=== PATIENT | male | born 1985 | race Two or more races ===

== ENCOUNTER 2024-05-27 07:54 | Inpatient (IN) | payer MEDICAID, SELFPAY ==
[2024-05-27] VITALS (17 sets, daily range): BP systolic 94–117; BP diastolic 53–78; PULSE 85–134; RESP 18–86; TEMP 36.7–39.6; O2SAT 91–99; BMI 29.1; BMI 29.4
--- NOTE | 2024-05-27 08:25 | XR_ITS ---
Examination: AP chest single view Technique one AP portable upright chest single view Exam date and time: May 27, 2024 0851 hours INDICATIONS: Shortness of breath fever sepsis today FINDINGS: Extensive diffuse bilateral pneumonia Normal heart size Intact osseous structures IMPRESSION: Extensive bilateral pneumonia
--- NOTE | 2024-05-27 08:25 | EKG_ITS ---
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
--- NOTE | 2024-05-27 08:26 | PD.EDRME ---
Rapid Medical Screening Exam RME Arrival date/time: 05/27/24 07:54 39-year-old male presents emergency department with a 4-day history of shortness of breath and cough. Reports today's having chest pain. I have greeted and performed a focused initial assessment of this patient. Initial appropriate labs ordered at this time. A comprehensive ED assessment and evaluation of the patient and analysis of all test and completion of medical decision making process will be conducted by additional ED provider. Chief Complaint: Flu Like Symptoms Time Seen by Provider: 05/27/24 07:59 Vital signs: Vital Signs Temperature 103.2 F H 05/27/24 08:01 Pulse Rate 133 H 05/27/24 08:01 Respiratory Rate 25 H 05/27/24 08:01 Blood Pressure 117/68 05/27/24 08:01 Pulse Oximetry (%) 91 L 05/27/24 08:01 Oxygen Delivery Method Room Air 05/27/24 08:01
[2024-05-27] MEDS: ACETAMINOPHEN 500 MG TABLET 1000 MG PO ×2 (08:28→18:11)
[2024-05-27] MEDS: IBUPROFEN TAB 400 MG TABLET 800 MG PO (08:29)
--- NOTE | 2024-05-27 08:46 | PD.EDURI ---
Upper Respiratory Inf. RME/HPI General Chief Complaint: Flu Like Symptoms Stated Complaint: chills, cough x 4d Time Seen by Provider: 05/27/24 07:59 Arrival date/time: 05/27/24 07:54 RME / HPI RME / HPI Narrative: 05/27/24 07:54 39-year-old male presents emergency department with a 4-day history of shortness of breath and cough. Reports today's having chest pain. I have greeted and performed a focused initial assessment of this patient. Initial appropriate labs ordered at this time. A comprehensive ED assessment and evaluation of the patient and analysis of all test and completion of medical decision making process will be conducted by additional ED provider. Dr. Faraz Berg ED Evaluation 39 year old male, presents to the emergency room with a chief complaint of shortness of breath and a cough. Patient states the symptoms began Thursday night with body aches, weakness, fatigue, fever, and nausea. Patient states he has a slight cough at night that causes nausea and vomiting of mucus. Patient denies pain. Related Data Allergies Allergy/AdvReac Type Severity Reaction Status Date / Time No Known Allergies Allergy Verified 05/27/24 07:57 Review of Systems Review of Systems Systems Reviewed: All systems reviewed, normal except as documented Narrative Review of Systems: Gen: +fever, no chills, no weight loss EYES: No discharge, no visual changes, no pain HEENT: No ear pain, no congestion, no sore throat PULM: + shortness of breath, cough, no congestion CV: No chest pain, no dyspnea on exertion, no palpitations GI: No nausea, no vomiting, no diarrhea, no pain, no constipation : No frequency, no urgency, no dysuria Musc/skel: No joint pain, no back pain Skin: No rash Psyc: No hallucinations, no depression Heme/Lymph: No easy bleeding or bruising tendencies Neuro: + weakness, no headache Past Medical History Social History SMOKING STATUS: Current every day smoker ED Exam Narrative Physical exam: GENERAL APPEARANCE: AxOx4, generally well-appearing, no acute distress. HEENT: NC, AT. MMM. EOMI, clear conjunctiva, oropharynx clear. NECK: Supple without lymphadenopathy. No stiffness or restricted ROM. HEART: Regular tachycardia LUNGS: Tachypnea, Moderate respiratory distress. Significant rales and rhonci bilaterally in all lung rosas worse at the base. ABDOMEN: Soft, nontender, nondistended with good bowel sounds heard. BACK: No midline C/T/L spine pain or deformity, No CVAT, no obvious deformity. EXTREMITIES: Without cyanosis, clubbing or edema. MUSCULOSKELETAL: FROM of all major joints, no chest tenderness NEUROLOGICAL: Grossly nonfocal. Alert and oriented, moving all 4 extremities. CN not formally tested but appear grossly intact. Observed to ambulate with normal gait. Skin: Clamy Skin Course Quality Measures Possible source: pulmonary, GI tract/intra-abdominal, genitourinary and skin/soft tissue Blood cultures ordered: yes Antibiotic ordered: Yes Pertinent labs: 05/27/24 08:28 Lactic Acid 1.7 mMol/L (0.4-2.0) Procalcitonin 0.61 H ng/ml (0.0-0.49) sepsis Orders Category Date Time Status Admit to Inpatient Status Routine Admission 05/27/24 12:12 Active Patient Condition Routine Admission 05/27/24 12:11 Ordered Activity as Tolerated Routine Care 05/27/24 12:12 Ordered Bedside COVID-19 Antigen Test NOW Care 05/27/24 08:09 Active Bedside Influenza A&B Antigen Test NOW Care 05/27/24 08:09 Completed COVID-19 Screening Questionnaire NOW Care 05/27/24 11:05 Active Job Coaching STAT Care 05/27/24 08:47 Active Continuous Pulse Oximetry NOW Care 05/27/24 12:11 Active Continuous Pulse Oximetry STAT Care 05/27/24 08:47 Active Decision to Admit X1 Care 05/27/24 11:05 Active EKG (ED ONLY) *Do not use* NOW Care 05/27/24 08:25 Completed In and Out Catheter X1PRN Care 05/27/24 08:47 Active Insert IV NOW Care 05/27/24 08:26 Active Insert IV NOW Care 05/27/24 08:47 Active Intake and Output QSHIFT Care 05/27/24 12:15 Ordered Miscellaneous Nursing Order NOW Care 05/27/24 12:11 Active NPO STAT Care 05/27/24 08:47 Active Notify provider NEEDED Care 05/27/24 12:11 Active Sequential Compression Device QSHIFT Care 05/27/24 12:11 Active Strict Intake and Output Routine Care 05/27/24 08:47 Ordered Diet Cardiac Diet 05/27/24 Dinner Active EKG (ED Only) Stat Exams 05/27/24 08:25 Draft XR chest 1V SEPSIS PROTOCOL Stat Exams 05/27/24 08:25 Completed BNP [B-Type Natriuretic Peptide] Stat Lab 05/27/24 08:28 Completed Blood Culture (Lab) Stat Lab 05/27/24 08:20 Received CBC AM DRAW Lab 05/28/24 05:00 Ordered CBC AM DRAW Lab 05/29/24 05:00 Ordered CBC AM DRAW Lab 05/30/24 05:00 Ordered CBC AM DRAW Lab 05/31/24 05:00 Ordered CBC AM DRAW Lab 06/01/24 05:00 Ordered CBC AM DRAW Lab 06/02/24 05:00 Ordered CBC AM DRAW Lab 06/03/24 05:00 Ordered CBC Stat Lab 05/27/24 08:28 Completed CMP [Comprehensive Metabolic Panel] Stat Lab 05/27/24 08:28 Completed COVID-19 Confirmatory PCR Stat Lab 05/27/24 Ordered Chloride,Urine Random Urgent Lab 05/27/24 14:30 Completed Cocci Serology IgM with reflex to IgG [Cocci Serology, Lab 05/27/24 08:28 Results Unk History] Stat Comprehensive Metabolic Panel AM DRAW Lab 05/28/24 05:00 Ordered Comprehensive Metabolic Panel AM DRAW Lab 05/29/24 05:00 Ordered Comprehensive Metabolic Panel AM DRAW Lab 05/30/24 05:00 Ordered Comprehensive Metabolic Panel AM DRAW Lab 05/31/24 05:00 Ordered Comprehensive Metabolic Panel AM DRAW Lab 06/01/24 05:00 Ordered Comprehensive Metabolic Panel AM DRAW Lab 06/02/24 05:00 Ordered Comprehensive Metabolic Panel AM DRAW Lab 06/03/24 05:00 Ordered Creatinine,Random Urine Urgent Lab 05/27/24 14:30 Completed D-Dimer Routine Lab 05/27/24 08:28 Completed Fibrinogen Stat Lab 05/27/24 08:28 Completed K URINE [Potassium,Urine Random] Routine Lab 05/27/24 14:30 Completed LDH (Lactate Dehydrogenase) Stat Lab 05/27/24 08:28 Completed Lactate (Lactic Acid) Stat Lab 05/27/24 08:28 Completed Legionella Ag, EIA, Urine* Routine Lab 05/27/24 14:30 Ordered Lipase Stat Lab 05/27/24 08:28 Completed Lipid Panel AM DRAW Lab 05/28/24 05:00 Ordered Magnesium AM DRAW Lab 05/28/24 05:00 Ordered Magnesium AM DRAW Lab 05/29/24 05:00 Ordered Magnesium AM DRAW Lab 05/30/24 05:00 Ordered Magnesium Stat Lab 05/27/24 08:28 Completed Partial Thromboplastin Time Stat Lab 05/27/24 08:28 Completed Phosphorous AM DRAW Lab 05/28/24 05:00 Ordered Phosphorous AM DRAW Lab 05/29/24 05:00 Ordered Phosphorous AM DRAW Lab 05/30/24 05:00 Ordered Phosphorous Stat Lab 05/27/24 08:28 Completed Procalcitonin Stat Lab 05/27/24 08:28 Completed Prothrombin Time with INR Stat Lab 05/27/24 08:28 Completed SODIUM NA URINE [Sodium,Urine Random] Routine Lab 05/27/24 14:30 Completed Strep A Rapid Stat Lab 05/27/24 08:13 Completed TSH [Thyroid Stimulating Hormone] AM DRAW Lab 05/28/24 05:00 Ordered Troponin I Stat Lab 05/27/24 08:28 Completed Urinalysis Stat Lab 05/27/24 14:30 Completed Urine Culture Stat Lab 05/27/24 14:30 Received Acetaminophen Tab [Tylenol ES Tab] Med 05/27/24 08:09 Discontinued 1,000 mg PO X1 ONE Acetaminophen Tab [Tylenol Tab] Med 05/27/24 12:11 Discontinued 650 mg PO Q6H PRN Azithromycin Inj [Zithromax Inj] 500 mg Med 05/27/24 08:49 Discontinued Sodium Chloride 0.9% 250 ml [Ns] 250 ml IV X1 Heparin Inj Med 05/27/24 21:00 Active 5,000 unit SC Q12H Ibuprofen Tab [Motrin Tab] Med 05/27/24 08:09 Discontinued 800 mg PO X1 ONE Senna [Senokot] Med 05/27/24 12:11 Active 1 tab PO QDAY PRN Sodium Chloride 0.9% 1000 ml [Ns] 1,000 ml Med 05/27/24 10:58 Discontinued IV 999 mls/hr Sodium Chloride 0.9% 1000 ml [Ns] 1,983 ml Med 05/27/24 08:47 Discontinued IV 1,983 mls/hr Sodium Chloride 0.9% [Ns] 50 ml Med 05/27/24 09:08 Discontinued .ROUTE .STK-MED cefTRIAXone [Rocephin] 1,000 mg Med 05/27/24 08:47 Discontinued Sodium Chloride 0.9% (P) [Ns 0.9% (P)] 50 ml IV X1 Code Status Routine Oth 05/27/24 12:11 Ordered Oxygen Delivery NOW RT 05/27/24 08:47 Active Oxygen Delivery PRN RT 05/27/24 12:11 Active Vital Signs Vital signs: Vital Signs Temperature 103.2 F H 05/27/24 08:01 Pulse Rate 133 H 05/27/24 08:01 Respiratory Rate 25 H 05/27/24 08:01 Blood Pressure 117/68 05/27/24 08:01 Pulse Oximetry (%) 91 L 05/27/24 08:01 Oxygen Delivery Method Room Air 05/27/24 08:01 Upper Respiratory Infection MDM Narrative MDM Narrative:: I, Francisco Cintron, am scribing under the presence of Dr. Ruth. 0902: Interpretation by Dr. Ruth: Sharp costophrenic angles, normal diaphragmatic edge, normal cardiac silhouette, bilateral diffuse infiltrates, worse at the bases, and atypical pattern. Patient data External records reviewed:: [facility] previous records (I reviewed and patient last ER visit was on 07/13/19 for bacterial conjunctivitis. ) Clinical information provided by:: patient Social determinants that could affect healthcare access:: none Patient has the following chronic illnesses:: See HPI. How is presenting disease/condition affected by chronic disease/condition?: uneffected by Evaluation data The following diagnostics were reviewed and interpreted by me:: lab results, radiology exam(s) and EKG tracing(s) (Rate 136, Sinus tachycardia, Normal axis, No ectopy, No signs of acute ischemia) Lab and/or radiology exams considered but not ordered:: None Interpretation Summary: Ordering Physician: Stephanie Nava Date of Service: 05/27/24 Procedure(s): XR chest 1V SEPSIS PROTOCOL Accession Number(s): [id number] cc: Dax Ireland MD; Stephanie Nava~ Examination: AP chest single view Technique one AP portable upright chest single view Exam date and time: May 27, 2024 0851 hours INDICATIONS: Shortness of breath fever sepsis today FINDINGS: Extensive diffuse bilateral pneumonia Normal heart size Intact osseous structures IMPRESSION: Extensive bilateral pneumonia Dictated By: Dax Ireland MD Signed By: <Electronically signed by Dax Ireland MD in OV> 05/27/24 090 Medications / Prescriptions Medications or Prescriptions considered but not ordered:: None Medication administrations:: Medication Administration History Acetaminophen (Acetaminophen 325 Mg Tablet) 1,000 mg PO Q6H PRN PRN Reason: Pain 1-3 and Fever >101.5 Stop: 06/26/24 12:10 Heparin Sodium (Porcine) (Heparin Sod Inj 5000 Unit/Ml Vial) 5,000 unit SC Q12H JUAN JOSE Stop: 06/10/24 20:59 Fluconazole (Diflucan/Ns Ivpb) 400 mg in 200 mls @ 100 mls/hr IV QDAY JUAN JOSE Stop: 06/03/24 18:27 Levofloxacin (Levofloxacin 250 Mg Tablet) 750 mg PO QDAY JUAN JOSE Stop: 06/03/24 18:29 Potassium Phos/Sodium Phos (Naph,[facility] 1 Packet (1.5 Gm)) 1 packet PO BID JUAN JOSE Stop: 06/26/24 12:29 Sennosides (Senna Tablet) 1 tab PO QDAY PRN; Protocol PRN Reason: constipation Stop: 06/26/24 12:10 Discontinued Medications Acetaminophen (Acetaminophen 500 Mg Tablet) 1,000 mg PO X1 ONE Stop: 05/27/24 08:10 Last Admin: 05/27/24 08:28 Dose: 1,000 mg Documented By: TERRY Acetaminophen (Acetaminophen 325 Mg Tablet) 650 mg PO Q6H PRN PRN Reason: Pain and Fever >101.5 Stop: 06/26/24 12:10 Acetaminophen (Acetaminophen 500 Mg Tablet) 1,000 mg PO X1 ONE Stop: 05/27/24 18:03 Last Admin: 05/27/24 18:11 Dose: 1,000 mg Documented By: ANTONIETA Fluconazole (Fluconazole 100 Mg Tablet) 400 mg PO X1 ONE Stop: 05/27/24 18:27 Sodium Chloride (Ns) 1,983 mls @ 1,983 mls/hr 30 ml/kg infuse over 60 min (1983 ml) IV .Q1H ONE Stop: 05/27/24 09:46 Last Infusion: 05/27/24 11:20 Dose: Infused Documented By: Admin: 05/27/24 09:00 Dose: 1,983 mls/hr Documented By: AMBER Ceftriaxone Sodium 1,000 mg/ (Sodium Chloride) 50 mls @ 100 mls/hr IV X1 ONE Stop: 05/27/24 09:16 Last Infusion: 05/27/24 11:20 Dose: Infused Documented By: Admin: 05/27/24 09:15 Dose: 100 mls/hr Documented By: AMBER Azithromycin 500 mg/ Sodium (Chloride) 250 mls @ 250 mls/hr IV X1 ONE Stop: 05/27/24 09:48 Last Infusion: 05/27/24 11:20 Dose: Infused Documented By: Admin: 05/27/24 09:16 Dose: 250 mls/hr Documented By: AMBER Sodium Chloride (Ns) Confirm Administered Dose 50 mls @ ud .ROUTE .STK-MED ONE Stop: 05/27/24 09:09 Last Admin: 05/27/24 09:15 Dose: 100 mls/hr Documented By: AMBER Sodium Chloride (Ns) 1,000 mls @ 999 mls/hr IV .Q1H1M ONE Stop: 05/27/24 11:58 Last Admin: 05/27/24 10:55 Dose: 999 mls/hr Documented By: AMBER Levofloxacin/Dextrose (Levaquin Ivpb) 750 mg in 150 mls @ 100 mls/hr IV QDAY JUAN JOSE Stop: 06/04/24 08:59 Levofloxacin/Dextrose (Levaquin Ivpb) 750 mg in 150 mls @ 100 mls/hr IV QDAY JUAN JOSE Stop: 06/03/24 18:23 Vancomycin HCl/Dextrose (Vancomycin/D5w 1,250 Mg Ivpb) 250 mls @ 120 mls/hr IV X1 ONE Stop: 05/27/24 22:04 Ibuprofen (Ibuprofen Tab 400 Mg Tablet) 800 mg PO X1 ONE Stop: 05/27/24 08:10 Last Admin: 05/27/24 08:29 Dose: 800 mg Documented By: TERRY Levofloxacin (Levofloxacin 250 Mg Tablet) 750 mg PO QDAY ONE Stop: 05/27/24 18:30 Pharmacy Consult (Vancomycin Pharmacy To Dose 1 Each Each) 1 each IV QDAY PRN PRN Reason: CONSULT Stop: 06/26/24 18:29 Sodium Chloride (Sodium Chloride Rt 10% 15 Ml Nebu) 5 ml INH X1 ONE Stop: 05/27/24 12:19 Last Admin: 05/27/24 17:10 Dose: 5 ml Documented By: EV See above Consultations Consultation(s) initiated? (list below): Yes Consultation #1 (Physician, Specialty, Details): 1106: I spoke to Dr. Magallanes made aware of the patient?s HPI, PMHx, lab and/or radiology results. Discussed treatment plan and regarding admission Diagnosis Upper Respiratory Differential Diagnosis: other (sepsis, pneumonia, pulmonary embolism, pneumothorax) Most likely diagnosis given after review of the tests above:: Sepsis. Hyponatremia, Transaminitis, Bilateral atypical pneumonia, Hypoxia, respiratory distress Admission Indicated Admission indicated?: indicated Explain why admission is indicated or not indicated:: Patient has abnormalities in their studies and needs admission, see above. Admission Request Was there a request for admission?: Yes Admission Attestation Admission request attestation: Discussed case with [] from Hospitalist service regarding admission. Discussed patients ED course, exam findings, labs, and radiology results. The Hospitalist [agrees,declines] to accept the patient for admission. Disposition Plan Disposition Plan: Admit Critical Care Time Critical Care Time Critical Care Time: Yes Total Critical Care Time (min.): 45 Attestation: The high probability of sudden, clinically significant deterioration in the patient?s condition required the highest level of my preparedness to intervene urgently. ? The services I provided to this patient were to treat and/or prevent clinically significant deterioration. Services included the following: chart data review, reviewing nursing notes and/or old charts, documentation time, analytical consultant collaboration regarding findings and treatment options, medication orders and management, direct patient care, vital sign assessments and ordering, interpreting and reviewing diagnostic studies and lab tests. ? Aggregate critical care time includes only time during which I was engaged in work directly related to the patient?s care, as described above, whether at bedside or elsewhere in the Emergency Department. It did not include time spent performing other reported procedures or the services of residents, students, nurses or physician assistants. Discharge Plan Plan Patient Disposition: Admit Acute Care w/in Hospital Patient condition on transfer: Stable Problem List Clinical Impression: Respiratory distress, Sepsis, Hyponatremia, Abnormal transaminases, Bilateral pneumonia, Hypoxia
[2024-05-27 08:48] LABS: Strep A Rapid Negative (Negative)
[2024-05-27 08:50] LABS: Lactate (Lactic Acid) 1.7 mMol/L (0.4-2.0)
[2024-05-27 08:51] LABS: Basophils # (Auto) 0.1 Thou/mm3 (0.0-0.2); Basophils % (Auto) 0 % (0-2.5); Eosinophils % (Auto) 0 % (0-10); Hematocrit 37.7 % (41.0-53.0); Hemoglobin 12.1 g/dL (13.5-16.0); Immature Granulocytes % (Auto) 0 % (0-0); Immature Granulocytes Auto 0.04 Thou/mm3 (0.00-0.00); Lymphocytes # (Auto) 1.3 Thou/mm3 (1.0-4.8); Lymphocytes % (Auto) 11 % (10-50); Mean Corpuscular HGB Conc 32.1 g/dl (31.0-37.0); Mean Corpuscular Volume 69 fL (80-100); Monocytes # (Auto) 0.5 Thou/mm3 (0.0-0.8); Monocytes % (Auto) 4 % (0-12); Neutrophils # (Auto) 9.9 Thou/mm3 (1.8-7.7); Neutrophils % (Auto) 84 % (37-80); Nucleated Red Blood Cell % 0 /100 WBC (0); Platelet Count 387 Thou/mm3 (140-440); RDW Standard Deviation 46.4 fL (35.1-43.9); White Blood Count 11.8 Thou/mm3 (3.8-10.6)
[2024-05-27] MEDS: SODIUM CHLORIDE 0.9% 1000 ML 1,983 ML 1983 ML IV (09:00)
[2024-05-27] MEDS: cefTRIAXone 1,000 MG in SODIUM CHLORIDE 0.9% (P) 50 ML 100 MG IV (09:15)
[2024-05-27] MEDS: SODIUM CHLORIDE 0.9% 50 ML 100 ML (09:15)
[2024-05-27] MEDS: AZITHROMYCIN INJ 500 MG in SODIUM CHLORIDE 0.9% 250 ML 250 ML 250 MG IV (09:16)
[2024-05-27 09:18] LABS: INR 1.1 (0.9-1.3); Partial Thromboplastin Time 27.9 Seconds (22.0-36.0)
[2024-05-27 09:20] LABS: B-Type Natriuretic Peptide 21 pg/mL (0-100)
[2024-05-27 09:23] LABS: LDH (Lactate Dehydrogenase) 663 U/L (120-246); Lipase 52 U/L (12-53); Magnesium 1.7 mg/dL (1.6-2.6); Phosphorous 2.1 mg/dL (2.4-5.1)
[2024-05-27 09:29] LABS: Alanine Aminotransferase 68 U/L (10-49); Albumin, Serum 4.2 gm/dL (3.5-5.0); Alkaline Phosphatase 74 U/L (46-116); Anion Gap 5 (7-16); Aspartate Amino Transferase 85 U/L (0-34); BUN/Creatinine Ratio 9 Ratio (12-20); Bilirubin,Total 0.7 mg/dL (0.3-1.2); Blood Urea Nitrogen 12 mg/dL (9-23); Calcium 9.1 mg/dL (8.3-10.6); Calcium (Corrected) 9.1 mg/dL (8.5-10.1); Carbon Dioxide 24.3 mMol/L (20.0-31.0); Chloride 99 mMol/L (98-107); Creatinine (Component) 1.3 mg/dL (0.6-1.3); Globulin 4.4 gm/dL (2.3-3.5); Glucose 92 mg/dL (74-106); Osmolality,Calculated 256 (275-295); Procalcitonin 0.61 ng/ml (0.0-0.49); Sodium 128 mMol/L (136-145); Total Protein 8.6 gm/dL (5.7-8.2); Troponin I < 0.020 ng/mL (0.0-0.045); eGFR > 60 See Note
[2024-05-27] MEDS: SODIUM CHLORIDE 0.9% 1000 ML 1,000 ML 999 ML IV (10:55)
[2024-05-27 11:05] LABS: Fibrinogen 596 mg/dL (175-375)
--- NOTE | 2024-05-27 11:36 | PC.CC ---
Patient is a 39 year-old male BIB-Self for chills, cough x4. Caren ALMAZAN introduced self, role, and reason for visit. Patient appeared alert and oriented to self, location, and situation. Patient was pleasant and engaged in assessment. Patient confirmed information on demographics and reports he lives at home with his mother Rina Owen . The patient reports his mother and sister, Francesca Owen are part of his support system. Per patient, prior to coming to the hospital he was able to complete his own ADLs and Ambulate independently. For primary medical needs he is [facility]. Upon discharge patient plans on returning home. financial services professional to remain available for any discharge needs.
[2024-05-27 12:59] LABS: D-Dimer 381 ng/mL (<600)
--- NOTE | 2024-05-27 13:09 | ESHP_ITS ---
Documentation for date of: 05/27/24 [facility] History of Present Illness Chief complaint: Shortness of breath, cough History of present illness: Mr. Owen is a 39-year-old male with no significant past medical history who presented to [facility] with a chief complaint of shortness of breath and cough. Patient reports that he has been feeling weak for about 3 weeks, complains of chills, body aches, generalized weakness, fatigue and fever which has progressed eventually over the course of the last 3 weeks and he reports feeling worse, patient complains of nonproductive cough usually when he wakes up which causes him to throw up. Patient was short of breath on presentation to the ED, was started on oxygen via nasal cannula. He denies any sick contacts, history of any respiratory disorders and any past medical history of diabetes, heart disease and hypertension. He denies any chest pain, abdominal pain and nausea. ED Course: ED Vitals: Patient's vitals on presentation BP 117/68, P133, RR 25, temp 103.2, O2 sat 91 on room air ED Labs: Labs in ED significant for WBC 11.8, hemoglobin 12.1, hematocrit 37.7, MCV 69, MCH 22, neutrophil 84%, fibrinogen 596, Sodium 128, potassium 5.0, chloride 99, BUN 12, creatinine 1.3, osmolality 256, phosphorus 2.1, AST 85, ALT 68, LDH 663, total protein 8.6, globulin 4.4, Pro-Jayy 0.61. UA significant for urine protein 1+, urine ketones trace, urine RBC 5, urine WBC 3, urine bacteria rare, urine random creatinine 237, urine random sodium 19.8, urine random potassium 60, urine random chloride 33.4 cocci IgM in ED was negative ED Imaging: Chest x-ray in ED nephric and for extensive bilateral pneumonia ED Treatment:Patient was given Tylenol 1000 mg x 1 in ED, ibuprofen 800 mg x 180, about 3 L of normal saline fluid bolus, ceftriaxone and Zithromax. Review of Systems Review of Systems Narrative Review of Systems: ROS: -CONSTITUTIONAL: Denies weight loss, positive for fever and chills. -HEENT: Denies changes in vision and hearing. -RESPIRATORY: Positive for SOB and cough. -CV: Denies palpitations and Chest Pain. -GI: Denies abdominal pain, nausea,constipation and diarrhea. Positive for vomiting. -: Denies dysuria and urinary frequency. -MSK: Denies joint pain. Positive for myalgia, fatigue and generalized weakness. -SKIN: Denies rash and pruritus. -NEUROLOGICAL: Denies headache and syncope. -PSYCHIATRIC: Denies recent changes in mood. Denies anxiety and depression. Past Medical History Past Medical History Comments PMH COMMENT: PMH: No significant past medical history PSHx: Denies Allergies: No known allergies Social history: -Smoking: Positive for smoking, current everyday smoker. -Alcohol Use: Positive for occasional alcohol use -Illicit Drug Use: Denies -Occupation: [employer] -Martial Status: Unmarried, sexually active, monogamous Family History: Denies any pertinent family history Exam Vital Signs Temp Pulse Resp BP Pulse Ox O2 Del Method O2 Flow Rate 98.1 F 93 22 H 96/63 95 Nasal Cannula 4 05/27/24 12:19 05/27/24 12:19 05/27/24 12:19 05/27/24 12:19 05/27/24 12:19 05/27/24 12:19 05/27/24 12:19 Narrative Exam Physical Exam General: Awake and in no acute distress. Conversational and non-toxic appearing. HEENT: Normocephalic, atraumatic, mucous membranes moist. Heart: Regular rate and rhythm, no murmurs. Lungs: Clear to auscultation with no wheezing or crackles. Coarse breath sounds bilaterally, patient currently on nasal cannula. Abdomen: Soft, nondistended, nontender, positive bowel sounds. ?No guarding or rebound tenderness. Neurologic: Alert and oriented x3, no gross neurological deficit, and patient able to move all 4 extremities. Extremities: No edema. Skin: No rash or ecchymoses. Results: Labs 06/04/24 02:39 06/04/24 09:56 Labs: Short CBC 05/27/24 Range/Units 08:28 WBC 11.8 H (3.8-10.6) Thou/mm3 Hgb 12.1 L (13.5-16.0) g/dL Hct 37.7 L (41.0-53.0) % Plt Count 387 (140-440) Thou/mm3 BMP 05/27/24 08:28 Sodium 128 L Potassium 5.0 Chloride 99 Carbon Dioxide 24.3 BUN 12 Creatinine 1.3 Glucose 92 Calcium 9.1 Cardiac Enzymes 05/27/24 Range/Units 08:28 Troponin I < 0.020 (0.0-0.045) ng/mL Liver Function 05/27/24 Range/Units 08:28 Total Bilirubin 0.7 (0.3-1.2) mg/dL AST 85 H (0-34) U/L ALT 68 H (10-49) U/L Alkaline Phosphatase 74 (46-116) U/L Albumin 4.2 (3.5-5.0) gm/dL Quality Measures Quality Measures sepsis Current suspected stage: sepsis Possible source: pulmonary Blood cultures ordered: yes Antibiotic ordered: Yes Medications Home Medications and Allergies Home Medications ?Medication ?Instructions ?Recorded ?Confirmed ?Type No Known Home Medications 05/29/24 05/29/24 History Allergies Allergy/AdvReac Type Severity Reaction Status Date / Time No Known Allergies Allergy Verified 05/27/24 07:57 Visit Medications Acetaminophen (Acetaminophen 325 Mg Tablet) 650 mg PO Q6H PRN PRN Reason: Pain and Fever >101.5 Stop: 06/26/24 12:10 Heparin Sodium (Porcine) (Heparin Sod Inj 5000 Unit/Ml Vial) 5,000 unit SC Q12H JUAN JOSE Stop: 06/10/24 20:59 Levofloxacin/Dextrose (Levaquin Ivpb) 750 mg in 150 mls @ 100 mls/hr IV QDAY JUAN JOSE Stop: 06/04/24 08:59 Potassium Phos/Sodium Phos (Naph,[facility] Mbdb 1 Packet (1.5 Gm)) 1 packet PO BID JUAN JOSE Stop: 06/26/24 12:29 Sennosides (Senna Tablet) 1 tab PO QDAY PRN; Protocol PRN Reason: constipation Stop: 06/26/24 12:10 Discontinued Medications Acetaminophen (Acetaminophen 500 Mg Tablet) 1,000 mg PO X1 ONE Stop: 05/27/24 08:10 Last Admin: 05/27/24 08:28 Dose: 1,000 mg Sodium Chloride (Ns) 1,983 mls @ 1,983 mls/hr 30 ml/kg infuse over 60 min (1983 ml) IV .Q1H ONE Stop: 05/27/24 09:46 Last Infusion: 05/27/24 11:20 Dose: Infused Ceftriaxone Sodium 1,000 mg/ (Sodium Chloride) 50 mls @ 100 mls/hr IV X1 ONE Stop: 05/27/24 09:16 Last Infusion: 05/27/24 11:20 Dose: Infused Azithromycin 500 mg/ Sodium (Chloride) 250 mls @ 250 mls/hr IV X1 ONE Stop: 05/27/24 09:48 Last Infusion: 05/27/24 11:20 Dose: Infused Sodium Chloride (Ns) 1,000 mls @ 999 mls/hr IV .Q1H1M ONE Stop: 05/27/24 11:58 Last Admin: 05/27/24 10:55 Dose: 999 mls/hr Ibuprofen (Ibuprofen Tab 400 Mg Tablet) 800 mg PO X1 ONE Stop: 05/27/24 08:10 Last Admin: 05/27/24 08:29 Dose: 800 mg Sodium Chloride (Sodium Chloride Rt 10% 15 Ml Nebu) 5 ml INH X1 ONE Stop: 05/27/24 12:19 Assessment & Plan Plan Assessment and plan: Summary: Mr. Owen is a 39-year-old male with no significant past medical history who presented to [facility] with a chief complaint of shortness of breath and cough. Patient admitted for acute hypoxic respiratory failure secondary to pneumonia. # Acute hypoxic respiratory failure secondary to # Sepsis secondary to # Bilateral pneumonia # Leukocytosis -Patient presented with shortness of breath in the ED, was started on oxygen via nasal cannula. Patient reports having fever myalgia and chills for about 3 weeks with cough which progressively have worsened. -Patient met SIRS criteria 3/4, P133, RR 25, temp 103.2 on presentation, chest x-ray in ED significant for bilateral pneumonia. WBC count 11.8, neutrophil 84%. Pro-Jayy elevated 0.61. -Patient tested for influenza A and B, COVID rapid test negative in ED. fibrinogen elevated in ED 596 -Curb 65 score 1, low risk. PSI/port score 88 points, risk class III 0.92-2.8% -Patient was given ceftriaxone and azithromycin in ED. -Urine bacteria rare, leukocyte esterase negative, nitrite negative, patient asymptomatic low suspicion of UTI -Patient was given about 3 L fluid in ED Plan: -Patient started on levofloxacin 750mg PO QD (05/27- -Patient started on Fluconazole 400mg -Follow CT Chest -Supplemental oxygen as needed -Follow blood culture -Follow urine culture -Follow sputum culture, Gram stain -Follow MRSA nasal screen -Follow HIV antibody -Follow hepatitis panel -Follow COVID PCR, RSV -Follow H influenza, Legionella, Neisseria meningitis, strep B, strep pneumonia antigen -Consider repeating Pro-Jayy, Pro-Jayy helpful indicator when deciding to discontinue antibiotics, if less than 0.25 or more than 80% drop from peak -Follow CBC CMP in a.m. # Hyponatremia -Suspicion of Legionella pneumonia due to hyponatremia along with bilateral pneumonia. Sodium on admission 128. -Follow Legionella urine antigen -Monitor CMP in a.m. # Microcytic hypochromic anemia -Hemoglobin 12.1, MCV 69, MCH 22 on admission -Consider following up outpatient -Monitor CBC in a.m. # Transaminitis -Possible in setting of sepsis, will continue to monitor. -Follow CMP in a.m. # Electrolyte imbalance # Hypophosphatemia -Patient started on Neutra-Phos twice daily -Continue to monitor electrolytes DVT prophylaxis: Heparin twice daily GI prophylaxis: Not indicated Diet: Cardiac Lines: Peripheral IV Code status: Full code Physical therapy: Not ordered/indicated Case discussed with Attending Dr. Long and Dr. Holland PGY3. Yadira Welsh PGY1 LI discussed with and supervised the internal combustion engine assembler physician who took care of this patient. I personally saw and examined the patient and discussed the assessment and plan with the entire medicine team, including my attending Dr. Wayne Long MD. I agree with the assessment and plan as documented above. Larry Holland M.D. Internal Medicine PGY-3 Attending Provider Attestation/Addendum Face to face evaluation was performed by me. I have personally seen and examined the patient. I discussed the assessment and plan with the entire medicine team. I reviewed available medical records, imaging studies, laboratory results. I agree with the above subjective data, objective findings, assessment and plan except as corrected by me or noted below Acute hypoxic respiratory failure Bilateral significant pneumonia Fever Sepsis present on admission due to above Patient septic on admission empiric antibiotics with levofloxacin, highly suspicion for valley fever so empirically started on fluconazole. Repeat coccidiomycosis IgM/IgG in few days again after admission. Check for HIV?pending Supplemental oxygenation, wean as able Follow culture data
[2024-05-27 13:28] LABS: HIV 1/2 Confirmation* See Sep Rpt
[2024-05-27 14:38] LABS: Cocci Serology, IgM Negative (Negative)
[2024-05-27 15:03] LABS: Collection Type, Urine Clean Catch
[2024-05-27 15:33] LABS: Bacteria,Urine Rare; Bilirubin,Urine Negative (Negative); Blood,Urine Negative (Negative); Clarity,Urine Turbid (Clear/Hazy); Color,Urine Yellow (Lt Yel-Yel); Glucose, Urine Negative (Negative); Ketones,Urine Trace (Negative); Leukocyte Esterase,Urine Negative (Negative); Nitrite,Urine Negative (Negative); PH,Urine 6.5 (5.0-7.0); Protein,Urine 1+ (Neg - Trace); RBC,Urine 5 /hpf (0-3); Specific Gravity,Urine 1.022 (1.001-1.035); Squamous Epithelial Cell,Urine < 1 /hpf (0-5); Urobilinogen,Urine Negative mg/dL (0.0-1.0); WBC,Urine 3 /hpf (0-5)
[2024-05-27 15:36] LABS: Chloride,Urine Random 33.4 mMol/L (55.0-125.0); Creatinine,Random Urine 237 mg/dL (30-125); Potassium,Urine Random 60 mMol/L (12-62); Sodium,Urine Random 19.8 mMol/L (20.0-110.0)
[2024-05-27 15:41] LABS: Sodium 133 mMol/L (136-145)
[2024-05-27] MEDS: SODIUM CHLORIDE RT 10% 15 ML NEBU 5 ML INH (17:10)
--- NOTE | 2024-05-27 18:23 | XR_ITS ---
Examination: CT chest, without intravenous contrast. Sagittal and coronal 2-D reconstructions. Exam date and time: May 27, 2024 at 1852 hrs. Indications: Shortness of breath congestion beginning 4 days ago CTDI:vol (mGy) 14.5 DLP: (mGycm) 498 Technique: Multiple 3.0 mm axial sections of the chest to been obtained. Bone and lung density settings are obtained. Sagittal and coronal 2-D reconstructions have been obtained. Low dose protocols were performed. One or more of the following dose reduction techniques were used; automated exposure control, adjustment of the mA and/or KV according to patient size, use of iterative reconstruction technique. Findings: Thoracic aorta pulmonary arteries appear intact No paratracheal tracheobronchial or bronchopulmonary adenopathy small tracheobronchial and aortopulmonary window lymph nodes Severe bilateral lung opacities No pleural disease Osseous structures are intact No visualized liver or splenic lesion No visualized pancreatic mass Impression: Diffuse severe bilateral pneumonia
[2024-05-27] MEDS: FLUCONAZOLE/NS 400 MG IVPB 400 MG/200 ML BAG 100 MG IV (19:20)
[2024-05-27] MEDS: LEVOFLOXACIN 250 MG TABLET 750 MG PO (19:21)
[2024-05-27] MEDS: NAPH,KPH MBDB 1 PACKET (1.5 GM) PO (20:16)
[2024-05-27] MEDS: HEPARIN SOD INJ 5000 UNIT/ML VIAL SC (20:16)
[2024-05-27 21:00] LABS: Respiratory Syncytial Virus Ag Negative (Negative)
--- NOTE | 2024-05-27 22:35 | EKG_ITS ---
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
--- NOTE | 2024-05-27 23:00 | PC.NURSE ---
Addendum entered by Clyde Gaviria RN 05/28/24 03:35: Monitor courtroom clerk was also notified regarding patient's heart rate. Original Note: Contacted both . Adelita Mancilla regarding patients elevated heart rate. Patient's heart rate sustained in the 130's. When assessing patient, patient also had an oral temp of 101.8. MD also notified regarding temp and was given Tylenol and cooling measure was given to the patient. Dr. Tracey arrived on unit to assess patient. .
[2024-05-27] MEDS: ACETAMINOPHEN 325 MG TABLET 1000 MG PO (23:18)
[2024-05-27 23:45] LABS: Base Excess 0 (-3-3); HCO3 23 mEq/L (20-26); Inspired Oxygen, FIO2 90 %; O2 Saturation 96 % (91-98); PCO2 28 mmHg (32.0-48.0); PO2 75 mmHg (83-108); pH, Arterial 7.51 (7.35-7.45)
[2024-05-27 23:46] LABS: Allen Test Performed/OK; Puncture Site Right Radial
[2024-05-27 23:49] LABS: Lactate (Lactic Acid) 1.3 mMol/L (0.4-2.0)
[2024-05-28] VITALS (23 sets, daily range): BP systolic 104–111; BP diastolic 48–71; PULSE 87–133; RESP 18–32; TEMP 36.8–38.8; O2SAT 92–100
--- NOTE | 2024-05-28 00:18 | PC.NURSE ---
Dr. Dupree arrived on unit to assess patient. Patient's oral temperature was assessed after patient was given both tylenol and cooling measures. Patient's oral temperature went from 101.8 orally to 99.6. Patient stated to nurse that I don't know what it was, but I feel better than I did earlier . Patient was on oxymask and is now on a hi-flow.
[2024-05-28 00:21] LABS: Alanine Aminotransferase 53 U/L (10-49); Albumin, Serum 3.5 gm/dL (3.5-5.0); Albumin/Globulin Ratio 0.9 (1.2-2.2); Alkaline Phosphatase 62 U/L (46-116); Anion Gap 6 (7-16); Aspartate Amino Transferase 81 U/L (0-34); BUN/Creatinine Ratio 12 Ratio (12-20); Bilirubin,Total 0.5 mg/dL (0.3-1.2); Blood Urea Nitrogen 11 mg/dL (9-23); Calcium 7.7 mg/dL (8.3-10.6); Calcium (Corrected) 8.1 mg/dL (8.5-10.1); Carbon Dioxide 21.9 mMol/L (20.0-31.0); Chloride 101 mMol/L (98-107); Creatinine (Component) 0.9 mg/dL (0.6-1.3); Estimated Creatinine Clearance 116.1 mL/min (>60); Globulin 3.7 gm/dL (2.3-3.5); Glucose 96 mg/dL (74-106); Osmolality,Calculated 258 (275-295); Potassium 4.2 mMol/L (3.4-5.1); Sodium 129 mMol/L (136-145); Total Protein 7.2 gm/dL (5.7-8.2); eGFR > 60 See Note
--- NOTE | 2024-05-28 00:25 | PD.RESHP ---
Documentation for date of: 05/28/24 Exam Vital Signs Temp Pulse Resp BP Pulse Ox O2 Del Method O2 Flow Rate 101.8 F H 133 H 26 H 109/59 L 94 L High Flow Nasal Cannula 15 05/28/24 00:00 05/28/24 00:06 05/28/24 00:06 05/28/24 00:00 05/28/24 00:06 05/28/24 00:00 05/28/24 00:06 FiO2 90 05/28/24 00:06 Results: Labs 05/27/24 08:28 05/27/24 14:56 Labs: Short CBC 05/27/24 Range/Units 08:28 WBC 11.8 H (3.8-10.6) Thou/mm3 Hgb 12.1 L (13.5-16.0) g/dL Hct 37.7 L (41.0-53.0) % Plt Count 387 (140-440) Thou/mm3 BMP 05/27/24 05/27/24 08:28 14:56 Sodium 128 L 133 L Potassium 5.0 Chloride 99 Carbon Dioxide 24.3 BUN 12 Creatinine 1.3 Glucose 92 Calcium 9.1 Cardiac Enzymes 05/27/24 Range/Units 08:28 Troponin I < 0.020 (0.0-0.045) ng/mL Liver Function 05/27/24 Range/Units 08:28 Total Bilirubin 0.7 (0.3-1.2) mg/dL AST 85 H (0-34) U/L ALT 68 H (10-49) U/L Alkaline Phosphatase 74 (46-116) U/L Albumin 4.2 (3.5-5.0) gm/dL Urine 05/27/24 Range/Units 14:30 Urine Color Yellow (Lt Yel-Yel) Urine Clarity Turbid A (Clear/Hazy) Urine pH 6.5 (5.0-7.0) Ur Specific [place] 1.022 (1.001-1.035) Urine Protein 1+ A (Neg - Trace) Urine Glucose (UA) Negative (Negative) ABG Interpretation ABG results: 05/27/24 23:37 ABG pH 7.51 H ABG pCO2 28 L ABG pO2 75 L ABG HCO3 23 ABG O2 Saturation 96 ABG Base Excess 0 Quality Measures Quality Measures sepsis Possible source: pulmonary, GI tract/intra-abdominal, genitourinary and skin/soft tissue Blood cultures ordered: yes Medications Home Medications and Allergies Allergies Allergy/AdvReac Type Severity Reaction Status Date / Time No Known Allergies Allergy Verified 05/27/24 07:57 Visit Medications Acetaminophen (Acetaminophen 325 Mg Tablet) 1,000 mg PO Q6H PRN PRN Reason: Pain 1-3 and Fever >101.5 Stop: 06/26/24 12:10 Last Admin: 05/27/24 23:18 Dose: 1,000 mg Heparin Sodium (Porcine) (Heparin Sod Inj 5000 Unit/Ml Vial) 5,000 unit SC Q12H JUAN JOSE Stop: 06/10/24 20:59 Last Admin: 05/27/24 20:16 Dose: 5,000 unit Fluconazole (Diflucan/Ns Ivpb) 400 mg in 200 mls @ 100 mls/hr IV QDAY JUAN JOSE Stop: 06/03/24 18:27 Last Admin: 05/27/24 19:20 Dose: 100 mls/hr Levofloxacin (Levofloxacin 250 Mg Tablet) 750 mg PO QDAY JUAN JOSE Stop: 06/03/24 18:29 Last Admin: 05/27/24 19:21 Dose: 750 mg Potassium Phos/Sodium Phos (Naph,[facility] Mbdb 1 Packet (1.5 Gm)) 1 packet PO BID JUAN JOSE Stop: 06/26/24 12:29 Last Admin: 05/27/24 20:16 Dose: 1 packet Sennosides (Senna Tablet) 1 tab PO QDAY PRN; Protocol PRN Reason: constipation Stop: 06/26/24 12:10 Discontinued Medications Acetaminophen (Acetaminophen 500 Mg Tablet) 1,000 mg PO X1 ONE Stop: 05/27/24 08:10 Last Admin: 05/27/24 08:28 Dose: 1,000 mg Acetaminophen (Acetaminophen 325 Mg Tablet) 650 mg PO Q6H PRN PRN Reason: Pain and Fever >101.5 Stop: 06/26/24 12:10 Acetaminophen (Acetaminophen 500 Mg Tablet) 1,000 mg PO X1 ONE Stop: 05/27/24 18:03 Last Admin: 05/27/24 18:11 Dose: 1,000 mg Fluconazole (Fluconazole 100 Mg Tablet) 400 mg PO X1 ONE Stop: 05/27/24 18:27 Sodium Chloride (Ns) 1,983 mls @ 1,983 mls/hr 30 ml/kg infuse over 60 min (1983 ml) IV .Q1H ONE Stop: 05/27/24 09:46 Last Infusion: 05/27/24 11:20 Dose: Infused Ceftriaxone Sodium 1,000 mg/ (Sodium Chloride) 50 mls @ 100 mls/hr IV X1 ONE Stop: 05/27/24 09:16 Last Infusion: 05/27/24 11:20 Dose: Infused Azithromycin 500 mg/ Sodium (Chloride) 250 mls @ 250 mls/hr IV X1 ONE Stop: 05/27/24 09:48 Last Infusion: 05/27/24 11:20 Dose: Infused Sodium Chloride (Ns) 1,000 mls @ 999 mls/hr IV .Q1H1M ONE Stop: 05/27/24 11:58 Last Admin: 05/27/24 10:55 Dose: 999 mls/hr Levofloxacin/Dextrose (Levaquin Ivpb) 750 mg in 150 mls @ 100 mls/hr IV QDAY JUAN JOSE Stop: 06/04/24 08:59 Levofloxacin/Dextrose (Levaquin Ivpb) 750 mg in 150 mls @ 100 mls/hr IV QDAY JUAN JOSE Stop: 06/03/24 18:23 Vancomycin HCl/Dextrose (Vancomycin/D5w 1,250 Mg Ivpb) 250 mls @ 120 mls/hr IV X1 ONE Stop: 05/27/24 22:04 Ibuprofen (Ibuprofen Tab 400 Mg Tablet) 800 mg PO X1 ONE Stop: 05/27/24 08:10 Last Admin: 05/27/24 08:29 Dose: 800 mg Ketorolac Tromethamine (Ketorolac Inj 30 Mg/Ml Vial) 30 mg IVP X1 ONE Stop: 05/28/24 00:09 Levofloxacin (Levofloxacin 250 Mg Tablet) 750 mg PO QDAY ONE Stop: 05/27/24 18:30 Pharmacy Consult (Vancomycin Pharmacy To Dose 1 Each Each) 1 each IV QDAY PRN PRN Reason: CONSULT Stop: 06/26/24 18:29 Sodium Chloride (Sodium Chloride Rt 10% 15 Ml Nebu) 5 ml INH X1 ONE Stop: 05/27/24 12:19 Last Admin: 05/27/24 17:10 Dose: 5 ml Assessment & Plan Plan ED 16 Patient is an 88-year-old male, Greek only speaker, with a past medical history of diabetes, hypertension, hyperlipidemia who presents to the ER with a chief complaint of palpitations. Patient daughter at the bedside #Sepsis #Pneumonia #UTI #WILL #Diabetes mellitus
[2024-05-28] MEDS: SODIUM CHLORIDE 0.9% 500 ML 500 ML 999 ML IV (01:10)
[2024-05-28 03:45] LABS: COVID-19 Confirmatory PCR Negative (Neg)
--- NOTE | 2024-05-28 03:59 | PC.NURSE ---
Per MD. Tracey d/c airborne precaution.
[2024-05-28 06:00] LABS: Basophils % (Auto) 0 % (0-2.5); Eosinophils % (Auto) 0 % (0-10); Hematocrit 34.7 % (41.0-53.0); Hemoglobin 11.1 g/dL (13.5-16.0); Immature Granulocytes % (Auto) 0 % (0-0); Immature Granulocytes Auto 0.06 Thou/mm3 (0.00-0.00); Lymphocytes # (Auto) 2.3 Thou/mm3 (1.0-4.8); Lymphocytes % (Auto) 16 % (10-50); Mean Corpuscular Hemoglobin 22.4 pg (25.0-35.0); Mean Corpuscular Volume 70 fL (80-100); Monocytes # (Auto) 0.3 Thou/mm3 (0.0-0.8); Monocytes % (Auto) 2 % (0-12); Neutrophils # (Auto) 11.2 Thou/mm3 (1.8-7.7); Neutrophils % (Auto) 81 % (37-80); Nucleated Red Blood Cell % 0 /100 WBC (0); Platelet Count 349 Thou/mm3 (140-440); RDW Standard Deviation 47.4 fL (35.1-43.9); Red Blood Count 4.95 Miln/mm3 (4.50-5.90); White Blood Count 13.9 Thou/mm3 (3.8-10.6)
[2024-05-28 06:48] LABS: Alanine Aminotransferase 51 U/L (10-49); Albumin, Serum 3.5 gm/dL (3.5-5.0); Albumin/Globulin Ratio 0.9 (1.2-2.2); Alkaline Phosphatase 64 U/L (46-116); Anion Gap 6 (7-16); Aspartate Amino Transferase 77 U/L (0-34); BUN/Creatinine Ratio 10 Ratio (12-20); Bilirubin,Total 0.6 mg/dL (0.3-1.2); Blood Urea Nitrogen 10 mg/dL (9-23); Calcium 7.8 mg/dL (8.3-10.6); Calcium (Corrected) 8.2 mg/dL (8.5-10.1); Chloride 100 mMol/L (98-107); Cholesterol 110 mg/dL (132-200); Estimated Creatinine Clearance 104.5 mL/min (>60); Globulin 3.7 gm/dL (2.3-3.5); Glucose 80 mg/dL (74-106); HDL Cholesterol < 5 mg/dL (40-60); LDL Cholesterol,Calculated 77 mg/dL (0-130); Magnesium 1.6 mg/dL (1.6-2.6); Osmolality,Calculated 258 (275-295); Phosphorous 3.2 mg/dL (2.4-5.1); Potassium 4.4 mMol/L (3.4-5.1); Sodium 130 mMol/L (136-145); Thyroid Stimulating Hormone 1.06 uIU/mL (0.55-4.78); Total Protein 7.2 gm/dL (5.7-8.2); Triglycerides 141 mg/dL (30-150); eGFR > 60 See Note
[2024-05-28] MEDS: LEVOFLOXACIN 250 MG TABLET 750 MG PO (08:14)
[2024-05-28] MEDS: HEPARIN SOD INJ 5000 UNIT/ML VIAL SC ×2 (08:14→20:31)
[2024-05-28] MEDS: ACETAMINOPHEN 325 MG TABLET 1000 MG PO (08:14)
[2024-05-28] MEDS: NAPH,KPH MBDB 1 PACKET (1.5 GM) PO ×2 (08:15→20:30)
--- NOTE | 2024-05-28 08:25 | PC.NURSE ---
Notified that patient has a oral temp of 101.9 and tylenol was given per sep. Patient respirations at 30/min and hr is sustaining 130s-140s. Per provider they are aware of the hr and respirations, and to continue to monitor them. Provider to place orders for iv fluids
[2024-05-28 08:41] LABS: Total Iron Binding Capacity 262 mcg/dL (250-425)
[2024-05-28] MEDS: SODIUM CHLORIDE 0.9% 1000 ML 1,000 ML 100 ML IV (08:42)
[2024-05-28 08:51] LABS: Iron 17 mcg/dL (65-175); Percent Iron Saturation 6 % (20-55); Unsaturated Iron Binding 245 (225-295)
[2024-05-28] MEDS: FLUCONAZOLE/NS 400 MG IVPB 400 MG/200 ML BAG 100 MG IV (09:33)
[2024-05-28] MEDS: SODIUM CHLORIDE 0.9% 1000 ML 1,000 ML 60 ML IV (10:20)
[2024-05-28 14:20] LABS: Cocci Serology, IgG Negative (Negative)
--- NOTE | 2024-05-28 15:58 | PD.RESPRO ---
Documentation for date of: 05/28/24 Subjective Subjective Interval history: Patient seen at bedside. Overnight spiked a fever of 101.8 and was tachycardic and tachypneic, patient was put on high flow nasal cannula and given a 500 mL NS bolus. On examination this morning, patient still tachypneic and tachycardic with heart rate of 120, temperature is 101.9 and saturating 96% on 12 L/min for FiO2 85%. Labs show uptrending WBC to 13.9 and sodium 130 otherwise unremarkable. COVID and RSV negative. Pending blood, sputum and urine cultures as well as other studies. Patient does reports mild improvement of his symptoms. Will give IV fluids at maintenance rate, 60 cc/h continue antibiotics and fluconazole. Will also start to wean off oxygen. Exam Vital Signs Temp Pulse Resp BP Pulse Ox O2 Del Method O2 Flow Rate 98.5 F 87 20 107/71 97 High Flow Nasal Cannula 12 05/28/24 12:00 05/28/24 14:57 05/28/24 14:57 05/28/24 12:00 05/28/24 14:57 05/28/24 12:00 05/28/24 14:57 FiO2 85 05/28/24 14:57 Narrative Exam General: Awake and in no acute distress. Conversational and non-toxic appearing. HEENT: Normocephalic, atraumatic, mucous membranes moist. Heart: Regular rate and rhythm, no murmurs. Lungs: Clear to auscultation with no wheezing or crackles. Coarse breath sounds bilaterally, patient currently on nasal cannula. Abdomen: Soft, nondistended, nontender, positive bowel sounds. ?No guarding or rebound tenderness. Neurologic: Alert and oriented x3, no gross neurological deficit, and patient able to move all 4 extremities. Extremities: No edema. Skin: papular rash on anterior chest wall and upper arms, no ecchymoses. Objective Labs 05/29/24 05:37 05/29/24 05:37 Labs: Laboratory Results - last 24 hr 05/27/24 05/27/24 05/27/24 08:28 20:09 22:13 WBC RBC Hgb Hct MCV MCH MCHC RDW Std Deviation Plt Count Neut % (Auto) Lymph % (Auto) [place] % (Auto) Eos % (Auto) Baso % (Auto) Neut # (Auto) Lymph # (Auto) [place] # (Auto) Eos # (Auto) Baso # (Auto) Immature Gran # (Auto) Absolute Nucleated RBC Immature Gran % Nucleated RBC % Puncture Site ABG pH ABG pCO2 ABG pO2 ABG HCO3 ABG O2 Saturation ABG Base Excess FiO2 Sodium Potassium Chloride Carbon Dioxide Anion Gap BUN Creatinine Estim Creat Clear Calc eGFR BUN/Creatinine Ratio Glucose Calculated Osmolality Lactic Acid Calcium Corrected Calcium Phosphorus Magnesium Iron TIBC Iron Saturation Unsat Iron Binding Total Bilirubin AST ALT Alkaline Phosphatase Total Protein Albumin Globulin Albumin/Globulin Ratio Triglycerides Cholesterol LDL Cholesterol, Calc HDL Cholesterol Cholesterol/HDL Ratio TSH Coccidioides IgG Ab Negative RSV Rapid Negative SARS-CoV-2 (PCR) Negative 05/27/24 05/27/24 05/28/24 23:37 23:45 04:27 WBC 13.9 H RBC 4.95 Hgb 11.1 L Hct 34.7 L MCV 70 L MCH 22.4 L MCHC 32.0 RDW Std Deviation 47.4 H Plt Count 349 D Neut % (Auto) 81 H Lymph % (Auto) 16 [place] % (Auto) 2 Eos % (Auto) 0 Baso % (Auto) 0 Neut # (Auto) 11.2 H Lymph # (Auto) 2.3 [place] # (Auto) 0.3 Eos # (Auto) 0.0 Baso # (Auto) 0.0 Immature Gran # (Auto) 0.06 H Absolute Nucleated RBC 0.00 Immature Gran % 0 Nucleated RBC % 0 Puncture Site Right Radial ABG pH 7.51 H ABG pCO2 28 L ABG pO2 75 L ABG HCO3 23 ABG O2 Saturation 96 ABG Base Excess 0 FiO2 90 Sodium 129 L 130 L Potassium 4.2 D 4.4 Chloride 101 100 Carbon Dioxide 21.9 24.0 Anion Gap 6 L 6 L BUN 11 10 Creatinine 0.9 1.0 Estim Creat Clear Calc 116.1 104.5 eGFR > 60 > 60 BUN/Creatinine Ratio 12 10 L Glucose 96 80 Calculated Osmolality 258 L 258 L Lactic Acid 1.3 Calcium 7.7 L 7.8 L Corrected Calcium 8.1 L 8.2 L Phosphorus 3.2 Magnesium 1.6 Iron 17 L TIBC 262 Iron Saturation 6 L Unsat Iron Binding 245 Total Bilirubin 0.5 0.6 AST 81 H 77 H ALT 53 H 51 H Alkaline Phosphatase 62 64 Total Protein 7.2 7.2 Albumin 3.5 D 3.5 Globulin 3.7 H 3.7 H Albumin/Globulin Ratio 0.9 L 0.9 L Triglycerides 141 Cholesterol 110 L LDL Cholesterol, Calc 77 HDL Cholesterol < 5 L Cholesterol/HDL Ratio 22.0 H TSH 1.06 Coccidioides IgG Ab RSV Rapid SARS-CoV-2 (PCR) ABG Interpretation ABG results: 05/27/24 23:37 ABG pH 7.51 H ABG pCO2 28 L ABG pO2 75 L ABG HCO3 23 ABG O2 Saturation 96 ABG Base Excess 0 Quality Measures Quality Measures sepsis Current suspected stage: sepsis Possible source: pulmonary, GI tract/intra-abdominal, genitourinary and skin/soft tissue Blood cultures ordered: yes Antibiotic ordered: Yes Assessment & Plan Assessment Current Active Medications: Generic Name Dose Route Start Last Admin Trade Name Freq PRN Reason Stop Dose Admin Acetaminophen 1,000 mg 05/27/24 18:30 05/28/24 08:14 Acetaminophen 325 Mg Tablet PO 06/26/24 12:10 1,000 mg Q6H PRN Administration Pain 1-3 and Fever >101.5 Heparin Sodium (Porcine) 5,000 unit 05/27/24 21:00 05/28/24 08:14 Heparin Sod Inj 5000 Unit/Ml Vial SC 06/10/24 20:59 5,000 unit Q12H JUAN JOSE Administration Fluconazole 400 mg in 200 mls @ 100 mls/hr 05/27/24 18:28 05/28/24 09:33 Diflucan/Ns Ivpb IV 06/03/24 18:27 100 mls/hr QDAY JUAN JOSE Administration Sodium Chloride 1,000 mls @ 60 mls/hr 05/28/24 09:45 05/28/24 10:20 Ns IV 05/29/24 01:07 60 mls/hr .[id number] Administration Levofloxacin 750 mg 05/27/24 18:30 05/28/24 08:14 Levofloxacin 250 Mg Tablet PO 06/03/24 18:29 750 mg QDAY JUAN JOSE Administration Nicotine 14 mg 05/28/24 09:00 05/28/24 08:15 Nicotine Patch 14 Mg/24 Hr Patch.Td24 TOP 06/27/24 08:59 Not Given QDAY JUAN JOSE Potassium Phos/Sodium Phos 1 packet 05/27/24 12:30 05/28/24 08:15 [facility] 1 Packet (1.5 Gm) PO 06/26/24 12:29 1 packet BID JUAN JOSE Administration Sennosides 1 tab 05/27/24 12:11 Senna Tablet PO 06/26/24 12:10 QDAY PRN constipation Protocol Plan Summary: Mr. Owen is a 39-year-old male with no significant past medical history who presented to [facility] (Former[facility]) with a chief complaint of shortness of breath and cough. Patient admitted for acute hypoxic respiratory failure secondary to pneumonia. # Acute hypoxic respiratory failure secondary to # Sepsis secondary to # Bilateral pneumonia # Leukocytosis -Patient presented with shortness of breath in the ED, was started on oxygen via nasal cannula. Patient reports having fever myalgia and chills for about 3 weeks with cough which progressively have worsened. -Patient met SIRS criteria 3/4, P133, RR 25, temp 103.2 on presentation, chest x-ray in ED significant for bilateral pneumonia. WBC count 11.8, neutrophil 84%. Pro-Jayy elevated 0.61. -Patient tested for influenza A and B, COVID rapid test negative in ED. fibrinogen elevated in ED 596 -Curb 65 score 1, low risk. PSI/port score 88 points, risk class III 0.92-2.8% -Patient was given ceftriaxone and azithromycin in ED. -Urine bacteria rare, leukocyte esterase negative, nitrite negative, patient asymptomatic low suspicion of UTI -Patient was given about 3 L fluid in ED Was started on IV Levaquin and fluconazole. CT chest showed diffuse severe bilateral pneumonia 05/28/2024- Overnight spiked a fever of 101.8 and was tachycardic and tachypneic, patient was put on high flow nasal cannula and given a 500 mL NS bolus. On examination this morning, patient still tachypneic and tachycardic with heart rate of 120, temperature is 101.9. Labs show uptrending WBC to 13.9 and sodium 130 otherwise unremarkable. COVID and RSV negative. Pending blood, sputum and urine cultures as well as other studies. Patient was reports mild improvement of her symptoms. Will give IV fluids at maintenance rate, 60 cc/h continue antibiotics and fluconazole. Plan: -Continue IV Levaquin and fluconazole -Pending blood, sputum and urine cultures -Supplemental oxygen as needed -Pending MRSA nasal screen -Pending HIV, hepatitis and other studies -Continue to monitor CBC # Hyponatremia -Suspicion of Legionella pneumonia due to hyponatremia along with bilateral pneumonia. Sodium on admission 128. Sodium today-130 -Follow Legionella urine antigen -Monitor CMP in a.m. # Microcytic hypochromic anemia -Hemoglobin 12.1, MCV 69, MCH 22 on admission -Iron panel ordered -Monitor CBC in a.m. # Transaminitis -Possible in setting of sepsis, will continue to monitor. -Follow CMP in a.m. # Electrolyte imbalance # Hypophosphatemia-resolved -Patient started on Neutra-Phos twice daily -Continue to monitor electrolytes DVT prophylaxis: Heparin twice daily GI prophylaxis: Not indicated Diet: Cardiac Lines: Peripheral IV Code status: Full code Physical therapy: Not ordered/indicated Case was discussed with senior resident Dr Holland PGY-3 and attending physician, Dr Mercedes Gaspar MD PGY-1 I discussed with and supervised the internet site designer physician who took care of this patient. I personally saw and examined the patient and discussed the assessment and plan with the entire medicine team, including my attending Dr. Wayne Long MD. I agree with the assessment and plan as documented above. Patient's vitals, labs, imaging and chart reviewed. Patient interviewed and examined at bedside this AM. Overnight the patient developed a fever of 101.8 F. Also noted to be tacycardic and tachypneic. O2 reqs trending upwards and patient is now on HFNC at 12L/min at FiO2 of 85%. Labs revealed increasing wbc. Cx's pending. Covid PCR negative. HIV pending. Larry Holland M.D. Internal Medicine PGY-3 Attending Provider Attestation/Addendum Face to face evaluation was performed by me. I have personally seen and examined the patient. I discussed the assessment and plan with the entire medicine team. I reviewed available medical records, imaging studies, laboratory results. I agree with the above subjective data, objective findings, assessment and plan except as corrected by me or noted below Acute hypoxic respiratory failure Bilateral significant pneumonia Fever Sepsis present on admission due to above Patient states that clinically he is doing better. Patient septic on admission empiric antibiotics with levofloxacin, highly suspicion for valley fever so empirically started on fluconazole. Repeat coccidiomycosis IgM/IgG in few days again after admission. Check for HIV?pending still High flow nasal cannula requiring 12 L 85% FiO2 wean as able Follow culture data
--- NOTE | 2024-05-28 16:57 | PC.NURSE ---
Notified that patient oxygen sat dropped to 72% after a coughing episode. Patient stated that he was having a hard time catching his breath after he coughs and would like some cough medicine. Patient is still currently on 12L hfnc. Provider to place orders
[2024-05-28] MEDS: PROMETHAZINE/DM SYRUP 5 ML DOSE PO (17:03)
[2024-05-28] MEDS: SCOPOLAMINE 1 MG TDSY TOP (20:30)
[2024-05-28] MEDS: ACETAMINOPHEN 500 MG TABLET 1000 MG PO (20:50)
[2024-05-29] VITALS (14 sets, daily range): BP systolic 95–116; BP diastolic 56–67; PULSE 90–133; RESP 15–34; TEMP 36.5–37.4; O2SAT 92–100
[2024-05-29 05:53] LABS: Basophils % (Auto) 0 % (0-2.5); Eosinophils % (Auto) 0 % (0-10); Hematocrit 34.1 % (41.0-53.0); Hemoglobin 11.1 g/dL (13.5-16.0); Immature Granulocytes % (Auto) 0 % (0-0); Immature Granulocytes Auto 0.04 Thou/mm3 (0.00-0.00); Lymphocytes # (Auto) 1.6 Thou/mm3 (1.0-4.8); Lymphocytes % (Auto) 13 % (10-50); Mean Corpuscular HGB Conc 32.6 g/dl (31.0-37.0); Mean Corpuscular Hemoglobin 22.2 pg (25.0-35.0); Mean Corpuscular Volume 68 fL (80-100); Monocytes # (Auto) 0.2 Thou/mm3 (0.0-0.8); Monocytes % (Auto) 2 % (0-12); Neutrophils # (Auto) 10.4 Thou/mm3 (1.8-7.7); Neutrophils % (Auto) 85 % (37-80); Nucleated Red Blood Cell % 0 /100 WBC (0); Platelet Count 332 Thou/mm3 (140-440); RDW Standard Deviation 45.3 fL (35.1-43.9); White Blood Count 12.3 Thou/mm3 (3.8-10.6)
[2024-05-29 06:23] LABS: Alanine Aminotransferase 48 U/L (10-49); Albumin, Serum 3.6 gm/dL (3.5-5.0); Alkaline Phosphatase 54 U/L (46-116); Anion Gap 8 (7-16); Aspartate Amino Transferase 68 U/L (0-34); BUN/Creatinine Ratio 9 Ratio (12-20); Bilirubin,Total 0.5 mg/dL (0.3-1.2); Blood Urea Nitrogen 9 mg/dL (9-23); Calcium 8.1 mg/dL (8.3-10.6); Calcium (Corrected) 8.4 mg/dL (8.5-10.1); Carbon Dioxide 24.2 mMol/L (20.0-31.0); Chloride 99 mMol/L (98-107); Estimated Creatinine Clearance 104.5 mL/min (>60); Globulin 3.7 gm/dL (2.3-3.5); Glucose 86 mg/dL (74-106); Magnesium 1.9 mg/dL (1.6-2.6); Osmolality,Calculated 260 (275-295); Phosphorous 3.3 mg/dL (2.4-5.1); Potassium 4.4 mMol/L (3.4-5.1); Sodium 131 mMol/L (136-145); Total Protein 7.3 gm/dL (5.7-8.2); eGFR > 60 See Note
[2024-05-29 07:19] LABS: Hepatitis A Antibody IgM Non Reactive (Non React); Hepatitis B Core Antibody IgM Non Reactive (Non React); Hepatitis B Surface Antigen Non Reactive (Non React); Hepatitis C Antibody Non Reactive (Non React)
[2024-05-29] MEDS: LEVOFLOXACIN 250 MG TABLET 750 MG PO (08:29)
[2024-05-29] MEDS: NAPH,KPH MBDB 1 PACKET (1.5 GM) PO (08:30)
[2024-05-29] MEDS: HEPARIN SOD INJ 5000 UNIT/ML VIAL SC ×2 (08:30→20:37)
[2024-05-29] MEDS: FLUCONAZOLE 100 MG TABLET 400 MG PO (08:30)
[2024-05-29] MEDS: CALCIUM CARBONATE 600 MG TABLET PO (08:40)
[2024-05-29] MEDS: NICOTINE PATCH 14 MG/24 HR PATCH.TD24 TOP (08:40)
[2024-05-29 10:58] LABS: Allen Test Performed/OK; Base Excess 2 (-3-3); HCO3 25 mEq/L (20-26); Inspired Oxygen, FIO2 65 %; O2 Saturation 95 % (91-98); PCO2 32 mmHg (32.0-48.0); PO2 79 mmHg (83-108); Puncture Site Right Radial
--- NOTE | 2024-05-29 13:43 | PC.NURSE ---
Pt. reported felling dizzy. Vital signs assessed: BP 95/68, O2 89% on high flow 18L 65%. Pt. advised to lie in pone position after assisted and make comfertable, which increased the Spo2 to 96%. Instructed the pt. to inform the staff if dizziness persists. Family present at bedside.
--- NOTE | 2024-05-29 13:57 | ESPR_ITS ---
Documentation for date of: 05/29/24 Subjective Subjective Interval history: Patient seen at bedside. Overnight patient's developed a temperature of 100.4, no fever spikes overnight. On examination this morning, patient still tachypneic and tachycardic with heart rate of 109, temperature is 99.4 and saturating 96% on 18 L/min for FiO2 75%. Patient complains of shortness of breath on mild exertion. Pending HIV studies. Exam Vital Signs Temp Pulse Resp BP Pulse Ox O2 Del Method O2 Flow Rate 98.6 F 108 H 27 H 95/67 97 High Flow Nasal Cannula 18 05/29/24 12:00 05/29/24 12:00 05/29/24 12:00 05/29/24 12:00 05/29/24 12:00 05/29/24 12:00 05/29/24 12:00 FiO2 75 05/29/24 12:00 Narrative Exam General: Awake and in no acute distress. Conversational and non-toxic appearing. HEENT: Normocephalic, atraumatic, mucous membranes moist. Heart: Regular rate and rhythm, no murmurs. Lungs: Clear to auscultation with no wheezing or crackles. Coarse breath sounds bilaterally, patient currently on high flow oxygen. Abdomen: Soft, nondistended, nontender, positive bowel sounds. ?No guarding or rebound tenderness. Neurologic: Alert and oriented x3, no gross neurological deficit, and patient able to move all 4 extremities. Extremities: No edema. Skin: papular rash on anterior chest wall and upper arms, no ecchymoses. Objective Labs 06/01/24 05:20 06/01/24 05:20 Labs: Laboratory Results - last 24 hr 05/27/24 05/28/24 05/29/24 08:28 04:27 05:37 WBC 12.3 H RBC 5.00 Hgb 11.1 L Hct 34.1 L MCV 68 L MCH 22.2 L MCHC 32.6 RDW Std Deviation 45.3 H Plt Count 332 Neut % (Auto) 85 H Lymph % (Auto) 13 [place] % (Auto) 2 Eos % (Auto) 0 Baso % (Auto) 0 Neut # (Auto) 10.4 H Lymph # (Auto) 1.6 [place] # (Auto) 0.2 Eos # (Auto) 0.0 Baso # (Auto) 0.0 Immature Gran # (Auto) 0.04 H Absolute Nucleated RBC 0.00 Immature Gran % 0 Nucleated RBC % 0 Puncture Site ABG pH ABG pCO2 ABG pO2 ABG HCO3 ABG O2 Saturation ABG Base Excess FiO2 Sodium 131 L Potassium 4.4 Chloride 99 Carbon Dioxide 24.2 Anion Gap 8 BUN 9 Creatinine 1.0 Estim Creat Clear Calc 104.5 eGFR > 60 BUN/Creatinine Ratio 9 L Glucose 86 Calculated Osmolality 260 L Calcium 8.1 L Corrected Calcium 8.4 L Phosphorus 3.3 Magnesium 1.9 Total Bilirubin 0.5 AST 68 H ALT 48 Alkaline Phosphatase 54 C-Reactive Prot, Quant 21.0 H Total Protein 7.3 Albumin 3.6 Globulin 3.7 H Albumin/Globulin Ratio 1.0 L Coccidioides IgG Ab Negative Hepatitis A IgM Ab Non Reactive Hep Bs Antigen Non Reactive Hep B Core IgM Ab Non Reactive Hepatitis C Antibody Non Reactive 05/29/24 10:44 WBC RBC Hgb Hct MCV MCH MCHC RDW Std Deviation Plt Count Neut % (Auto) Lymph % (Auto) [place] % (Auto) Eos % (Auto) Baso % (Auto) Neut # (Auto) Lymph # (Auto) [place] # (Auto) Eos # (Auto) Baso # (Auto) Immature Gran # (Auto) Absolute Nucleated RBC Immature Gran % Nucleated RBC % Puncture Site Right Radial ABG pH 7.50 H ABG pCO2 32 ABG pO2 79 L ABG HCO3 25 ABG O2 Saturation 95 ABG Base Excess 2 FiO2 65 Sodium Potassium Chloride Carbon Dioxide Anion Gap BUN Creatinine Estim Creat Clear Calc eGFR BUN/Creatinine Ratio Glucose Calculated Osmolality Calcium Corrected Calcium Phosphorus Magnesium Total Bilirubin AST ALT Alkaline Phosphatase C-Reactive Prot, Quant Total Protein Albumin Globulin Albumin/Globulin Ratio Coccidioides IgG Ab Hepatitis A IgM Ab Hep Bs Antigen Hep B Core IgM Ab Hepatitis C Antibody ABG Interpretation ABG results: 05/27/24 05/29/24 23:37 10:44 ABG pH 7.51 H 7.50 H ABG pCO2 28 L 32 ABG pO2 75 L 79 L ABG HCO3 23 25 ABG O2 Saturation 96 95 ABG Base Excess 0 2 Quality Measures Quality Measures sepsis Current suspected stage: sepsis Possible source: pulmonary, GI tract/intra-abdominal, genitourinary and skin/soft tissue Blood cultures ordered: yes Antibiotic ordered: Yes Assessment & Plan Assessment Current Active Medications: Generic Name Dose Route Start Last Admin Trade Name Freq PRN Reason Stop Dose Admin Acetaminophen 1,000 mg 05/27/24 18:30 05/28/24 08:14 Acetaminophen 325 Mg Tablet PO 06/26/24 12:10 1,000 mg Q6H PRN Administration Pain 1-3 and Fever >101.5 Calcium Carbonate 600 mg 05/29/24 09:00 05/29/24 08:40 Calcium Carbonate 600 Mg Tablet PO 06/28/24 08:59 600 mg QDAY JUAN JOSE Administration Fluconazole 400 mg 05/29/24 09:00 05/29/24 08:30 Fluconazole 100 Mg Tablet PO 06/05/24 08:59 400 mg QDAY JUAN JOSE Administration Heparin Sodium (Porcine) 5,000 unit 05/27/24 21:00 05/29/24 08:30 Heparin Sod Inj 5000 Unit/Ml Vial SC 06/10/24 20:59 5,000 unit Q12H JUAN JOSE Administration Levofloxacin 750 mg 05/27/24 18:30 05/29/24 08:29 Levofloxacin 250 Mg Tablet PO 06/03/24 18:29 750 mg QDAY JUAN JOSE Administration Nicotine 14 mg 05/28/24 09:00 05/29/24 08:40 Nicotine Patch 14 Mg/24 Hr Patch.Td24 TOP 06/27/24 08:59 14 mg QDAY JUAN JOSE Administration Promethazine HCl/Dextromethorphan 5 ml 05/28/24 16:56 05/28/24 17:03 Promethazine/Dm Syrup 5 Ml Dose PO 06/27/24 16:55 5 ml Q4HR PRN Administration COUGH Protocol Sennosides 1 tab 05/27/24 12:11 Senna Tablet PO 06/26/24 12:10 QDAY PRN constipation Protocol Plan Summary: Mr. Owen is a 39-year-old male with no significant past medical history who presented to [facility] with a chief complaint of shortness of breath and cough. Patient admitted for acute hypoxic respiratory failure secondary to pneumonia. # Acute hypoxic respiratory failure secondary to # Sepsis secondary to # Bilateral pneumonia # Leukocytosis -Patient presented with shortness of breath in the ED, was started on oxygen via nasal cannula. Patient reports having fever myalgia and chills for about 3 weeks with cough which progressively have worsened. -Patient met SIRS criteria 3/4, P133, RR 25, temp 103.2 on presentation, chest x-ray in ED significant for bilateral pneumonia. WBC count 11.8, neutrophil 84%. Pro-Jayy elevated 0.61. -Patient tested for influenza A and B, COVID rapid test negative in ED. fibrinogen elevated in ED 596 -Curb 65 score 1, low risk. PSI/port score 88 points, risk class III 0.92-2.8% -Patient was given ceftriaxone and azithromycin in ED. -Urine bacteria rare, leukocyte esterase negative, nitrite negative, patient asymptomatic low suspicion of UTI -Patient was given about 3 L fluid in ED -CT chest showed diffuse severe bilateral pneumonia -Hepatitis panel nonreactive, COVID, RSV negative -Group A rapid strep negative, cocci IgM, IgG negative -MRSA nasal screen negative, sputum culture shows mixed oral kylie urine culture negative. Plan: -Continue levofloxacin and fluconazole -Pending blood, sputum -Supplemental oxygen as needed -Pending urine Legionella and other studies -Pending HIV confirmatory test -Continue to monitor CBC # Hyponatremia -Suspicion of Legionella pneumonia due to hyponatremia along with bilateral pneumonia. Sodium on admission 128. -Follow Legionella urine antigen -Monitor CMP in a.m. # Microcytic hypochromic anemia -Hemoglobin 12.1, MCV 69, MCH 22 on admission -Iron panel shows iron 17, TIBC 262, iron saturation 6, unsaturated iron binding 245 -Monitor CBC in a.m. # Transaminitis -Possible in setting of sepsis, will continue to monitor. -Follow CMP in a.m. # Electrolyte imbalance # Hypophosphatemia # Hypocalcemia -Continue to monitor electrolytes DVT prophylaxis: Heparin twice daily GI prophylaxis: Protonix PO Diet: Cardiac Lines: Peripheral IV Code status: Full code Physical therapy: Not ordered/indicated Case was discussed with senior resident Dr Holland PGY-3 and attending physician, Dr Mercedes Welsh PGY-1 LI discussed with and supervised the university intern physician who took care of this patient. I personally saw and examined the patient and discussed the assessment and plan with the entire medicine team, including my attending Dr. Wayne Long MD. I agree with the assessment and plan as documented above. Larry Holland M.D. Internal Medicine PGY-2 3 L Attending Provider Attestation/Addendum Face to face evaluation was performed by me. I have personally seen and examined the patient. I discussed the assessment and plan with the entire medicine team. I reviewed available medical records, imaging studies, laboratory results. I agree with the above subjective data, objective findings, assessment and plan except as corrected by me or noted below Acute hypoxic respiratory failure Bilateral significant pneumonia Fever Sepsis present on admission due to above Empiric antibiotics with levofloxacin, highly suspicion for valley fever so empirically started on fluconazole. Repeat coccidiomycosis IgM/IgG in few days again after admission. Check for HIV?pending High flow nasal cannula, continue to wean as able Fever curve improving Follow culture data, HIV confirmatory testing sent to outpatient lab, needs to be followed up. If positive obtain CD4 count and start on PCP pneumonia coverage
[2024-05-29] MEDS: ACETAMINOPHEN 500 MG TABLET 1000 MG PO ×2 (15:42→22:24)
[2024-05-29] MEDS: PANTOPRAZOLE 40 MG TABLET PO (15:43)
--- NOTE | 2024-05-29 16:01 | PC.NURSE ---
Received a call from the lab requesting to send the lymphocyte subset test panel by thursday due to holiday. Spoke with the DR. Welsh, who okayed for the lab to be send by thursday.
--- NOTE | 2024-05-29 16:09 | PC.NURSE ---
Spoke with the DR. Bui regarding Covid confirmatory PCR routine test. Per Dr. bui , requested to collect it by [facility]. Asked the to update the order . no new orders been received yet.
[2024-05-29] MEDS: PROMETHAZINE/DM SYRUP 5 ML DOSE PO (21:41)
--- NOTE | 2024-05-29 22:02 | XR_ITS ---
Examination: AP chest single view Technique : AP portable upright chest single view Exam date and time: May 29, 2024 10:16 PM Indications: Hypoxia today Findings: Severe bilateral lung opacity No significant cardiac enlargement, prominent vascular congestion Intact osseous structures Impression: Severe bilateral pneumonia, consider associated heart failure
[2024-05-29 22:15] LABS: Base Excess 1 (-3-3); HCO3 24 mEq/L (20-26); Inspired Oxygen, FIO2 100 %; O2 Saturation 98 % (91-98); PCO2 32 mmHg (32.0-48.0); PO2 145 mmHg (83-108); pH, Arterial 7.48 (7.35-7.45)
[2024-05-29 22:16] LABS: Allen Test Performed/OK; Puncture Site Right Radial
[2024-05-29 22:22] LABS: Lactate (Lactic Acid) 1.8 mMol/L (0.4-2.0)
[2024-05-29 22:29] LABS: Basophils % (Auto) 0 % (0-2.5); Eosinophils # (Auto) 0.1 Thou/mm3 (0.0-0.5); Eosinophils % (Auto) 1 % (0-10); Hemoglobin 10.7 g/dL (13.5-16.0); Immature Granulocytes % (Auto) 0 % (0-0); Immature Granulocytes Auto 0.03 Thou/mm3 (0.00-0.00); Lymphocytes # (Auto) 1.7 Thou/mm3 (1.0-4.8); Lymphocytes % (Auto) 17 % (10-50); Mean Corpuscular HGB Conc 32.4 g/dl (31.0-37.0); Mean Corpuscular Hemoglobin 21.9 pg (25.0-35.0); Mean Corpuscular Volume 68 fL (80-100); Monocytes # (Auto) 0.2 Thou/mm3 (0.0-0.8); Monocytes % (Auto) 2 % (0-12); Neutrophils % (Auto) 81 % (37-80); Nucleated Red Blood Cell % 0 /100 WBC (0); Platelet Count 334 Thou/mm3 (140-440); RDW Standard Deviation 44.8 fL (35.1-43.9); Red Blood Count 4.88 Miln/mm3 (4.50-5.90)
--- NOTE | 2024-05-29 22:29 | EVENTNT_ITS ---
Documentation for date of: 05/29/24 Event Note Event Note: Rapid response called at 9:53 PM for O2 saturation in low 70s after episodes of coughing and emesis. BP 125/78, HR 134, RR 40s, temperature 99.3 ?F. Immediately placed on HFNC at 40 L/min and 100% FiO2 and oxygen gradually imp roved during rapid to 99%. Patient endorsed intermittent improvement in symptoms but also stated he felt like he was breathing hard. Repeat CXR showed interval bilateral worsening infiltrate. ABG showed pH 7.4, pO2 145, pCO2 32. Emesis subsided and patient symptoms improved without intervention. Patient made n.p.o. and transferred to telemetry in anticipation of possible intubation. However, upon reevaluation a few hours later, patient resting comfortably and RR in 20s and saturating well.
[2024-05-29 22:44] LABS: Alanine Aminotransferase 83 U/L (10-49); Albumin, Serum 3.6 gm/dL (3.5-5.0); Albumin/Globulin Ratio 0.9 (1.2-2.2); Alkaline Phosphatase 61 U/L (46-116); Anion Gap 6 (7-16); Aspartate Amino Transferase 117 U/L (0-34); BUN/Creatinine Ratio 8 Ratio (12-20); Bilirubin,Total 0.5 mg/dL (0.3-1.2); Blood Urea Nitrogen 8 mg/dL (9-23); Calcium 8.7 mg/dL (8.3-10.6); Carbon Dioxide 25.8 mMol/L (20.0-31.0); Chloride 100 mMol/L (98-107); Estimated Creatinine Clearance 104.5 mL/min (>60); Globulin 3.9 gm/dL (2.3-3.5); Glucose 95 mg/dL (74-106); Osmolality,Calculated 262 (275-295); Potassium 4.4 mMol/L (3.4-5.1); Sodium 132 mMol/L (136-145); Total Protein 7.5 gm/dL (5.7-8.2); eGFR > 60 See Note
[2024-05-29] MEDS: ONDANSETRON INJ 2 MG/ML INJ 2 ML 4 MG IV (23:00)
[2024-05-30] VITALS (79 sets, daily range): BP systolic 86–136; BP diastolic 50–78; PULSE 75–127; RESP 0–119; TEMP 36.8–38.8; O2SAT 85–100; BMI 29.5
[2024-05-30] MEDS: PROMETHAZINE/DM SYRUP 5 ML DOSE PO (02:34)
[2024-05-30] MEDS: ACETAMINOPHEN 500 MG TABLET 1000 MG PO ×3 (02:50→17:57)
[2024-05-30 06:09] LABS: Basophils % (Auto) 0 % (0-2.5); Eosinophils % (Auto) 1 % (0-10); Hematocrit 30.7 % (41.0-53.0); Hemoglobin 10.1 g/dL (13.5-16.0); Immature Granulocytes % (Auto) 0 % (0-0); Immature Granulocytes Auto 0.02 Thou/mm3 (0.00-0.00); Lymphocytes # (Auto) 0.8 Thou/mm3 (1.0-4.8); Lymphocytes % (Auto) 9 % (10-50); Mean Corpuscular HGB Conc 32.9 g/dl (31.0-37.0); Mean Corpuscular Hemoglobin 22.4 pg (25.0-35.0); Mean Corpuscular Volume 68 fL (80-100); Monocytes # (Auto) 0.2 Thou/mm3 (0.0-0.8); Monocytes % (Auto) 2 % (0-12); Neutrophils # (Auto) 7.4 Thou/mm3 (1.8-7.7); Neutrophils % (Auto) 88 % (37-80); Nucleated Red Blood Cell % 0 /100 WBC (0); Platelet Count 404 Thou/mm3 (140-440); RDW Standard Deviation 44.4 fL (35.1-43.9); Red Blood Count 4.51 Miln/mm3 (4.50-5.90); White Blood Count 8.4 Thou/mm3 (3.8-10.6)
[2024-05-30 06:33] LABS: Alanine Aminotransferase 74 U/L (10-49); Albumin, Serum 3.3 gm/dL (3.5-5.0); Albumin/Globulin Ratio 0.9 (1.2-2.2); Alkaline Phosphatase 55 U/L (46-116); Anion Gap 5 (7-16); Aspartate Amino Transferase 92 U/L (0-34); BUN/Creatinine Ratio 9 Ratio (12-20); Bilirubin,Total 0.5 mg/dL (0.3-1.2); Blood Urea Nitrogen 9 mg/dL (9-23); Calcium 8.5 mg/dL (8.3-10.6); Calcium (Corrected) 9.1 mg/dL (8.5-10.1); Carbon Dioxide 26.3 mMol/L (20.0-31.0); Chloride 101 mMol/L (98-107); Estimated Creatinine Clearance 104.5 mL/min (>60); Globulin 3.8 gm/dL (2.3-3.5); Glucose 81 mg/dL (74-106); Magnesium 1.9 mg/dL (1.6-2.6); Osmolality,Calculated 262 (275-295); Phosphorous 3.2 mg/dL (2.4-5.1); Potassium 4.4 mMol/L (3.4-5.1); Sodium 132 mMol/L (136-145); Total Protein 7.1 gm/dL (5.7-8.2); eGFR > 60 See Note
[2024-05-30 08:10] LABS: COVID-19 Confirmatory PCR Negative (Neg)
[2024-05-30] MEDS: HEPARIN SOD INJ 5000 UNIT/ML VIAL SC ×2 (08:40→22:00)
[2024-05-30] MEDS: FLUCONAZOLE 100 MG TABLET 400 MG PO (08:40)
[2024-05-30] MEDS: PANTOPRAZOLE 40 MG TABLET PO (08:40)
[2024-05-30] MEDS: LEVOFLOXACIN/D5W 750MG IVPB 750 MG/150 ML BAG 100 MG IV (08:40)
[2024-05-30] MEDS: CALCIUM CARBONATE 600 MG TABLET PO (08:40)
[2024-05-30 09:00] LABS: Base Excess 2 (-3-3); HCO3 26 mEq/L (20-26); Inspired Oxygen, FIO2 75 %; O2 Saturation 97 % (91-98); PCO2 35 mmHg (32.0-48.0); PO2 86 mmHg (83-108); pH, Arterial 7.47 (7.35-7.45)
[2024-05-30 09:05] LABS: Allen Test Performed/OK; Puncture Site Right Radial
[2024-05-30] MEDS: Magnesium Sulfate 2 GM Ivpb 2 GM/50 ML BAG IV (10:23)
--- NOTE | 2024-05-30 11:57 | EKG_ITS ---
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
--- NOTE | 2024-05-30 11:57 | XR_ITS ---
Examination: AP chest single view Technique one AP portable upright chest single view INDICATIONS: Hypoxia sepsis this week FINDINGS: Worsening severe bilateral diffuse pneumonia Normal heart size No pneumothorax The osseous structures are intact IMPRESSION: Worsening severe bilateral pneumonia
--- NOTE | 2024-05-30 11:59 | PD.RESEVENT ---
Documentation for date of: 05/30/24 Event Note Event Note: Rapid response called for patient at 11:53 AM, patient oxygen saturation on 70% on 25 L, 75% FiO2 high flow nasal cannula, patient was using accessory muscles for respiration complained of shortness of breath and dizziness. Patient had a fever of 101.4, was tachycardic with elevated respiratory rate, sepsis alert was called. ICU team was consulted due to patient's increased work of breathing and increased oxygen requirement, patient accepted by ICU team. Patient will be upgraded to ICU for further management and close observation. Ordered repeat CBC, CMP, blood cultures, urine analysis, Pro-Jayy, urine cultures as a part of sepsis protocol. Case discussed with Attending Dr. Long. Yadira Welsh PGY1
--- NOTE | 2024-05-30 12:37 | ESPR_ITS ---
Documentation for date of: 05/30/24 Subjective Subjective Interval history: Mr. Owen is a 39-year-old male with no past medical history who presented to [facility] on May 27 with a chief complaint of shortness of breath and cough. Patient has been progressively getting ill over the past few weeks with a complaint of chills, body aches, generalized weakness fever and night sweats. He was admitted to [facility] on May 27, 2024 to general medicine floor and initiated on treatment for community-acquired pneumonia and cocci pneumonia. Over the course of his hospitalization patient's oxygen requirements continued to worsen as he became more hypoxic and continue to remain febrile. Patient was also having episodes of tachycardia with a pulse noted to be consistently above 100 and ranging into the 120's. During episodes of coughing patient develops further hypoxia with O2 saturations going to the low 80s requiring rapid increase in oxygen flow rate and increase in O2 delivery. Rapid response event was called for the patient on May 29, 2024 and patient was found to be hypoxic with ABG ordered revealing that he had a pH of 7.4 O2 concentration of 145 and a CO2 of 32. Patient this morning again had a rapid response event due to hypoxia and continued fever. He was found to be tachypneic with a respiratory rate in the low 30s and oxygen flow rate of 25 L and O2 concentration noted to be 80%. 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 He did endorse a history of incarceration in 2006. He denies any recent travel or sick contacts or contact with anyone that may have had recent international travel. Exam Vital Signs Temp Pulse Resp BP Pulse Ox O2 Del Method O2 Flow Rate 101.5 F H 126 H 39 H 99/61 90 L High Flow Nasal Cannula 25 05/30/24 11:56 05/30/24 12:00 05/30/24 11:57 05/30/24 08:00 05/30/24 11:57 05/30/24 08:00 05/30/24 11:57 FiO2 100 05/30/24 11:57 Narrative Exam GENERAL: Alert and oriented x 3. Tachypneic with increased work of breathing but answers questioning appropriately and able to converse without any increase in discomfort. Well-built well-nourished EYES: EOMI. Anicteric. HEENT: Moist mucous membranes. No scleral icterus. No cervical lymphadenopathy. Multiple dental caries noted in the molars LUNGS: Lungs have decreased air movement but crepitus only noted in the right lower lung base. Lungs surprisingly sound better than patient's imaging findings CARDIOVASCULAR: Sinus tachycardia with a rate much higher than 110. No murmur. No JVD. ABDOMEN: Soft, non-tender and non-distended. No palpable masses. Last bowel movement noted to be May 29 EXTREMITIES: All 4 extremeties intact. No edema. Nontender. SKIN: No rashes or lesions. Warm. Bilateral tattoos on the upper extremities. 1 tattoo noted on the right lower extremity. 1 more tattoo noted on the upper back. No lesions or open wounds noted. NEUROLOGIC: No focal neurological deficits. CN II-XII grossly intact, but not individually tested. PSYCHIATRIC: Cooperative. Appropriate mood and affect. Objective Labs 05/30/24 05:36 05/30/24 05:36 Labs: Laboratory Results - last 24 hr 05/29/24 05/29/24 05/30/24 22:08 22:16 04:44 WBC 10.0 RBC 4.88 Hgb 10.7 L Hct 33.0 L MCV 68 L MCH 21.9 L MCHC 32.4 RDW Std Deviation 44.8 H Plt Count 334 Neut % (Auto) 81 H Lymph % (Auto) 17 Real % (Auto) 2 Eos % (Auto) 1 Baso % (Auto) 0 Neut # (Auto) 8.0 H Lymph # (Auto) 1.7 Real # (Auto) 0.2 Eos # (Auto) 0.1 Baso # (Auto) 0.0 Immature Gran # (Auto) 0.03 H Absolute Nucleated RBC 0.00 Immature Gran % 0 Nucleated RBC % 0 Puncture Site Right Radial ABG pH 7.48 H ABG pCO2 32 ABG pO2 145 H D ABG HCO3 24 ABG O2 Saturation 98 ABG Base Excess 1 FiO2 100 Sodium 132 L Potassium 4.4 Chloride 100 Carbon Dioxide 25.8 Anion Gap 6 L BUN 8 L Creatinine 1.0 Estim Creat Clear Calc 104.5 eGFR > 60 BUN/Creatinine Ratio 8 L Glucose 95 Calculated Osmolality 262 L Lactic Acid 1.8 Calcium 8.7 Corrected Calcium 9.0 Phosphorus Magnesium Total Bilirubin 0.5 AST 117 H ALT 83 H Alkaline Phosphatase 61 Total Protein 7.5 Albumin 3.6 Globulin 3.9 H Albumin/Globulin Ratio 0.9 L SARS-CoV-2 (PCR) Negative 05/30/24 05/30/24 05:36 08:45 WBC 8.4 RBC 4.51 Hgb 10.1 L Hct 30.7 L MCV 68 L MCH 22.4 L MCHC 32.9 RDW Std Deviation 44.4 H Plt Count 404 D Neut % (Auto) 88 H Lymph % (Auto) 9 L Real % (Auto) 2 Eos % (Auto) 1 Baso % (Auto) 0 Neut # (Auto) 7.4 Lymph # (Auto) 0.8 L Real # (Auto) 0.2 Eos # (Auto) 0.0 Baso # (Auto) 0.0 Immature Gran # (Auto) 0.02 H Absolute Nucleated RBC 0.00 Immature Gran % 0 Nucleated RBC % 0 Puncture Site Right Radial ABG pH 7.47 H ABG pCO2 35 ABG pO2 86 D ABG HCO3 26 ABG O2 Saturation 97 ABG Base Excess 2 FiO2 75 Sodium 132 L Potassium 4.4 Chloride 101 Carbon Dioxide 26.3 Anion Gap 5 L BUN 9 Creatinine 1.0 Estim Creat Clear Calc 104.5 eGFR > 60 BUN/Creatinine Ratio 9 L Glucose 81 Calculated Osmolality 262 L Lactic Acid Calcium 8.5 Corrected Calcium 9.1 Phosphorus 3.2 Magnesium 1.9 Total Bilirubin 0.5 AST 92 H ALT 74 H Alkaline Phosphatase 55 Total Protein 7.1 Albumin 3.3 L Globulin 3.8 H Albumin/Globulin Ratio 0.9 L SARS-CoV-2 (PCR) ABG Interpretation ABG results: 05/27/24 05/29/24 05/29/24 23:37 10:44 22:08 ABG pH 7.51 H 7.50 H 7.48 H ABG pCO2 28 L 32 32 ABG pO2 75 L 79 L 145 H D ABG HCO3 23 25 24 ABG O2 Saturation 96 95 98 ABG Base Excess 0 2 1 05/30/24 08:45 ABG pH 7.47 H ABG pCO2 35 ABG pO2 86 D ABG HCO3 26 ABG O2 Saturation 97 ABG Base Excess 2 Quality Measures Quality Measures sepsis Current suspected stage: ruled out Possible source: pulmonary, GI tract/intra-abdominal, genitourinary and skin/soft tissue Blood cultures ordered: yes Antibiotic ordered: Yes Assessment & Plan Assessment Current Active Medications: Generic Name Dose Route Start Last Admin Trade Name Freq PRN Reason Stop Dose Admin Acetaminophen 1,000 mg 05/29/24 15:38 05/30/24 11:56 Acetaminophen 500 Mg Tablet PO 06/26/24 12:10 1,000 mg Q6H PRN Administration Pain 1-3 and Fever >101.5 Calcium Carbonate 600 mg 05/29/24 09:00 05/30/24 08:40 Calcium Carbonate 600 Mg Tablet PO 06/28/24 08:59 600 mg QDAY JUAN JOSE Administration Fluconazole 400 mg 05/29/24 09:00 05/30/24 08:40 Fluconazole 100 Mg Tablet PO 06/05/24 08:59 400 mg QDAY JUAN JOSE Administration Heparin Sodium (Porcine) 5,000 unit 05/27/24 21:00 05/30/24 08:40 Heparin Sod Inj 5000 Unit/Ml Vial SC 06/10/24 20:59 5,000 unit Q12H JUAN JOSE Administration Levofloxacin/Dextrose 750 mg in 150 mls @ 100 mls/hr 05/30/24 09:00 05/30/24 08:40 Levaquin Ivpb IV 06/06/24 08:59 100 mls/hr QDAY JUAN JOSE Administration Nicotine 14 mg 05/28/24 09:00 05/30/24 08:55 Nicotine Patch 14 Mg/24 Hr Patch.Td24 TOP 06/27/24 08:59 Not Given QDAY JUAN JOSE Ondansetron HCl 4 mg 05/29/24 21:51 05/29/24 23:00 Ondansetron Inj 2 Mg/Ml Inj 2 Ml IV 06/28/24 21:50 4 mg Q6HR PRN Administration NAUSEA OR VOMITING Protocol Pantoprazole Sodium 40 mg 05/29/24 14:45 05/30/24 08:40 Pantoprazole 40 Mg Tablet PO 06/28/24 14:44 40 mg QDAY JUAN JOSE Administration Promethazine HCl/Dextromethorphan 5 ml 05/28/24 16:56 05/30/24 02:34 Promethazine/Dm Syrup 5 Ml Dose PO 06/27/24 16:55 5 ml Q4HR PRN Administration COUGH Protocol Sennosides 1 tab 05/27/24 12:11 Senna Tablet PO 06/26/24 12:10 QDAY PRN constipation Protocol Plan Neurology Stable. Alert and oriented x 3. Answering questions appropriately Cardiovascular #Sinus tachycardia Likely secondary to hypoxia and increased work of breathing along with general discomfort and fever Respiratory #Acute hypoxic respiratory failure secondary to unknown source currently #ARDS with [place] criteria met #Questionable history of vasculitides such as Granulomatosis with polyangiitis or eosinophilic granulomatosis with polyangiitis Patient has been receiving Levaquin 750 mg IV daily since admission on the Fluconazole was added on May 29, 2024 Procalcitonin negative Most recent ABG reveals a pH of 7.47, CO2 35, O2 saturation 97 and pO2 of 86 Patient currently on high flow nasal cannula with O2 flow rate of 25 and FiO2 of 80% Chest x-ray and chest CT consistent with extensive bilateral pneumonia Nicotine patch ordered due to pack a day smoking history We will also order testing for autoimmune vasculitides with testing for C ANCA, MPO, R3, complement fixation, DANIEL ordered Initiate Solu-Medrol 125 mg IV twice daily and will decrease dose to 60 mg IV daily to assist Repeat procalcitonin 1.28 PF ratio 115 indicating severe ARDS GI and F/E/N #Nausea vomiting On Zofran 4 mg IV Q6 hourly as needed for nausea No recorded episodes of emesis No indication for GI prophylaxis #Transaminitis Upon admission patient had transaminitis with AST noted to be 85 ALT 68 Transaminitis pattern continues with AST above ALT Patient has been receiving acetaminophen for management of fevers Right upper quadrant ultrasound ordered Stable. Currently n.p.o. GI prophylaxis with Protonix 40 mg p.o. daily Renal #Mild Hyponatremia On initial presentation sodium noted to be 128 Improved to 132 and down to 126 Appears asymptomatic but may be source of nausea vomiting other than patient's current infection Serum osmolality also noted to be hypoosmolar We will follow with a.m. labs Heme #Microcytic anemia #Iron deficiency anemia hemoglobin currently 10.3 and on initial presentation noted to be 12.1 MCV noted to be 68 and iron 17 Will order iron studies Endo #Hypocalcemia Calcium noted to be 7.7 and corrected noted to be 8.1 Patient calcium carbonate 600 mg p.o. daily ID #Bilateral pneumonia On initial presentation patient did have leukocytosis at 11.8 with a peak of 13.9 following day which is improved to 8.1 Original IgM cocci negative with repeat ordered Hepatitis negative COVID-negative HIV rapid test negative H. influenzae pending, urine Legionella pending, Neisseria meningitidis pending. Urine strep antigen pending. Beta 3D glucan pending Sputum cultures negative with no WBCs or organisms seen. Original blood cultures negative for more than 48 hours with repeat ordered this afternoon Antibiotic therapy escalated to azithromycin, doxycycline, and Zosyn DVT prophylaxis: Heparin 5000 subcu twice daily GI prophylaxis: Protonix 40 p.o. daily Diet: N.p.o. currently [place]: Not indicated Lines: 2 peripheral IVs Drips: None Vent: High flow nasal cannula, 25 L, 80% FiO2 CODE STATUS: Full code Reason for hospitalization acute hypoxic respiratory failure secondary to bilateral pneumonia from current unknown source. On IV antibiotics Plan of care discussed with supervising attending Dr. Nico Santos M.D. PGY-3
[2024-05-30 12:40] LABS: Basophils % (Auto) 0 % (0-2.5); Eosinophils % (Auto) 0 % (0-10); Hematocrit 31.5 % (41.0-53.0); Hemoglobin 10.3 g/dL (13.5-16.0); Immature Granulocytes % (Auto) 0 % (0-0); Immature Granulocytes Auto 0.03 Thou/mm3 (0.00-0.00); Lymphocytes # (Auto) 1.3 Thou/mm3 (1.0-4.8); Lymphocytes % (Auto) 16 % (10-50); Mean Corpuscular HGB Conc 32.7 g/dl (31.0-37.0); Mean Corpuscular Hemoglobin 22.3 pg (25.0-35.0); Mean Corpuscular Volume 68 fL (80-100); Monocytes # (Auto) 0.1 Thou/mm3 (0.0-0.8); Monocytes % (Auto) 2 % (0-12); Neutrophils # (Auto) 6.6 Thou/mm3 (1.8-7.7); Neutrophils % (Auto) 81 % (37-80); Nucleated Red Blood Cell % 0 /100 WBC (0); Platelet Count 412 Thou/mm3 (140-440); RDW Standard Deviation 44.5 fL (35.1-43.9); Red Blood Count 4.62 Miln/mm3 (4.50-5.90); White Blood Count 8.1 Thou/mm3 (3.8-10.6)
--- NOTE | 2024-05-30 12:44 | ESPR_ITS ---
Documentation for date of: 05/30/24 Subjective Subjective Interval history: This is a 39-year-old male who presented to the ER on 27 May. Initially he presented for shortness of breath cough and general malaise. Apparently he had been feeling unwell for the last 2 to 3 weeks. He did have some nonproductive cough. Chest x-ray showed bilateral diffuse infiltrates and the medicine team was contacted. He was admitted to the floor and placed on high flow nasal cannula initially at 100% FiO2 and started on antibiotics. He was started on fluconazole as well as Levaquin given that there was a high suspicion for underlying cocci pneumonia. He has had 2 rapid responses over the last 48 hours due to hypoxia and desatting. The patient is able to tolerate minimal movements prior to desatting. Today the ICU is consulted for further evaluation. The patient is currently on 80% FiO2 he is awake alert and oriented. He states that he has shortness of breath however minimal cough. He does complain of some upper abdominal/lower rib pain which he attributes to his recent cough. He denies any chest pain. Does note that he has had some night sweats and fever over the last several days. There has been no significant improvement since arrival 3 days ago. His respiratory status remains unchanged if not slightly worse. He is currently on isolation with airborne precautions behind a closed door. At this point in time due to an abundance of caution as well as closer observation and monitoring we will transfer to the ICU for ongoing management of his acute hypoxic respiratory failure. I did discuss with the patient the probable need for intubation in the near future. He is okay with intubation PMH: None PSH: Does admit to smoking as well as alcohol consumption, occasional marijuana use. Denies vaping, denies IVDA PFH: Diabetes ROS: As per HPI labs negative Critical Care Note Critical care time (min.): 75 Exam Vital Signs Temp Pulse Resp BP Pulse Ox O2 Del Method O2 Flow Rate 101.5 F H 126 H 39 H 99/61 90 L High Flow Nasal Cannula 25 05/30/24 11:56 05/30/24 12:00 05/30/24 11:57 05/30/24 08:00 05/30/24 11:57 05/30/24 08:00 05/30/24 11:57 FiO2 100 05/30/24 11:57 Narrative Exam [id number], normal body habitus, awake alert and oriented, appropriate, some increased work of breathing noted HEENT-normocephalic, atraumatic, sclera icteric, oral mucosa is hydrated, adequate dentition Chest-crackles at right posterior base, significantly diminished on the left, heart rate regular and rhythmic, no bruits or murmurs auscultated at time of exam, no tenderness on palpation of the chest wall Abdomen-soft, nontender, bowel sounds present, no rebound or guarding Extremities-no edema the lower extremities, no clubbing, no cyanosis, no mottling, pulses palpable Physical Exam Completion Physical Exam Complete?: Yes 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 05/31/24 05:05 05/31/24 05:05 Labs: Laboratory Results - last 24 hr 05/29/24 05/29/24 05/30/24 22:08 22:16 04:44 WBC 10.0 RBC 4.88 Hgb 10.7 L Hct 33.0 L MCV 68 L MCH 21.9 L MCHC 32.4 RDW Std Deviation 44.8 H Plt Count 334 Neut % (Auto) 81 H Lymph % (Auto) 17 [place] % (Auto) 2 Eos % (Auto) 1 Baso % (Auto) 0 Neut # (Auto) 8.0 H Lymph # (Auto) 1.7 [place] # (Auto) 0.2 Eos # (Auto) 0.1 Baso # (Auto) 0.0 Immature Gran # (Auto) 0.03 H Absolute Nucleated RBC 0.00 Immature Gran % 0 Nucleated RBC % 0 Puncture Site Right Radial ABG pH 7.48 H ABG pCO2 32 ABG pO2 145 H D ABG HCO3 24 ABG O2 Saturation 98 ABG Base Excess 1 FiO2 100 Sodium 132 L Potassium 4.4 Chloride 100 Carbon Dioxide 25.8 Anion Gap 6 L BUN 8 L Creatinine 1.0 Estim Creat Clear Calc 104.5 eGFR > 60 BUN/Creatinine Ratio 8 L Glucose 95 Calculated Osmolality 262 L Lactic Acid 1.8 Calcium 8.7 Corrected Calcium 9.0 Phosphorus Magnesium Total Bilirubin 0.5 AST 117 H ALT 83 H Alkaline Phosphatase 61 Total Protein 7.5 Albumin 3.6 Globulin 3.9 H Albumin/Globulin Ratio 0.9 L SARS-CoV-2 (PCR) Negative 05/30/24 05/30/24 05:36 08:45 WBC 8.4 RBC 4.51 Hgb 10.1 L Hct 30.7 L MCV 68 L MCH 22.4 L MCHC 32.9 RDW Std Deviation 44.4 H Plt Count 404 D Neut % (Auto) 88 H Lymph % (Auto) 9 L [place] % (Auto) 2 Eos % (Auto) 1 Baso % (Auto) 0 Neut # (Auto) 7.4 Lymph # (Auto) 0.8 L [place] # (Auto) 0.2 Eos # (Auto) 0.0 Baso # (Auto) 0.0 Immature Gran # (Auto) 0.02 H Absolute Nucleated RBC 0.00 Immature Gran % 0 Nucleated RBC % 0 Puncture Site Right Radial ABG pH 7.47 H ABG pCO2 35 ABG pO2 86 D ABG HCO3 26 ABG O2 Saturation 97 ABG Base Excess 2 FiO2 75 Sodium 132 L Potassium 4.4 Chloride 101 Carbon Dioxide 26.3 Anion Gap 5 L BUN 9 Creatinine 1.0 Estim Creat Clear Calc 104.5 eGFR > 60 BUN/Creatinine Ratio 9 L Glucose 81 Calculated Osmolality 262 L Lactic Acid Calcium 8.5 Corrected Calcium 9.1 Phosphorus 3.2 Magnesium 1.9 Total Bilirubin 0.5 AST 92 H ALT 74 H Alkaline Phosphatase 55 Total Protein 7.1 Albumin 3.3 L Globulin 3.8 H Albumin/Globulin Ratio 0.9 L SARS-CoV-2 (PCR) Assessment & Plan Additional Assessment Additional Assessment: In brief this is a 39y M admitted for SOB and acute hypoxic resp failure with b/l PNA. 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 On arrival he was started on fluconazole and levaquin. CT performed on 05/27 shows diffuse b/l infiltrated. At this point in time pt does not have a high WBC# or any significant L shift. He has been on IV ABx for 3 days without improvement in his overall condition. He cont to have WOB and desats quickly . Additional differentials include viral PNA, fungal PNA, atypical PNA and may also include DAD, DAH, ILD , vasculitis with drug toxicity being less likely given he only takes tylenol prn at home. Does admit to smoking however denies Vaping. Will cont with HFNC for now and add high dose steroids. Will change coverage to azithro, doxy and zosyn. start solumedrol, check DANIEL, pANCA/cANCA (MPO, PR3). Beta D glucan sent already and pending Respiratory Alkalosis- improved since arrival from pH 7.51 to 7.47. Unclear if this is improvement or if pt is now tiring. Low thresh hold for intubation. ARDS- p/f ratio of 114 on this AM ABG, if pt placed on bipap would be at higher risk for developing P-SILI Renal HypoNa- 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 monitor GI Transaminitis- Hep viral panel is neg, check US Endo stable Heme Microcytic Anemia- check an iron panel. Has dropped from 12 to 10 since arrival. No active bleeding noted ID PNA- on broad spectrum abx with cx pending case d/w ICU team, floor team and family at bedside labs, imaging, records reviewed ~75ccmin required for eval, exam, review, intervention , discussion and formulation of POC for this critically ill pt with resp failure at high risk for further and ongoing decompensation Provider Notation Provider Notation: Although this document has been carefully reviewed, there may still be some phonetic and other typographical errors. These errors are purely grammatical due to imperfections in the software program and should not be construed in any way to compromise the substance of the patient's medical care during this visit. Thank you for the opportunity and privilege in assisting you with this patient's care and management.
[2024-05-30 12:48] LABS: INR 1.3 (0.9-1.3); Partial Thromboplastin Time 34.9 Seconds (22.0-36.0); Prothrombin Time 13.8 Seconds (9.0-12.2)
[2024-05-30 12:56] LABS: Alanine Aminotransferase 68 U/L (10-49); Albumin, Serum 3.5 gm/dL (3.5-5.0); Albumin/Globulin Ratio 0.9 (1.2-2.2); Alkaline Phosphatase 53 U/L (46-116); Anion Gap 6 (7-16); Aspartate Amino Transferase 74 U/L (0-34); BUN/Creatinine Ratio 7 Ratio (12-20); Bilirubin,Total 0.5 mg/dL (0.3-1.2); Blood Urea Nitrogen 8 mg/dL (9-23); Calcium 8.3 mg/dL (8.3-10.6); Calcium (Corrected) 8.7 mg/dL (8.5-10.1); Carbon Dioxide 25.3 mMol/L (20.0-31.0); Chloride 95 mMol/L (98-107); Creatinine (Component) 1.1 mg/dL (0.6-1.3); Globulin 3.8 gm/dL (2.3-3.5); Glucose 128 mg/dL (74-106); Osmolality,Calculated 253 (275-295); Potassium 4.2 mMol/L (3.4-5.1); Procalcitonin 1.28 ng/ml (0.0-0.49); Sodium 126 mMol/L (136-145); Total Protein 7.3 gm/dL (5.7-8.2); eGFR > 60 See Note
[2024-05-30 13:06] LABS: D-Dimer 1100 ng/mL (<600)
--- NOTE | 2024-05-30 13:24 | PC.NURSE ---
HOST COORDINATOR called for hypoxia @ 1153. Patient O2 sat 70% on 25L 75% FiO2 HFNC. Upon arrival patient using accessory muscles and complains about being short of breath and complaining about dizziness. Pt's VS: Temp: 101.4 (temporal) HR: 125 RR: 28 (HFNC) BP: 109/64. Patient was then titrated to 100% FiO2. Sepsis alert initiated.
--- NOTE | 2024-05-30 13:25 | PC.NURSE ---
Report given to SHANAE Waggoner who will assume care of patient. Patient transferred to ICU room 253 @ 1513.
--- NOTE | 2024-05-30 14:00 | XR_ITS ---
Examination: Abdomen sonogram, Limited Date and time of exam: May 30, 2024 1631 hrs. Indications: Abdominal pain today with elevated liver function tests on laboratory examination today Technique: Real-time brandon scale transabdominal sonographic images of the upper abdomen obtained. Findings: Normal gallbladder Normal common bile duct 0.3 cm Pancreatic head 2.1 cm Liver 19 cm smooth contour no focal liver lesions Normal hepatopedal portal venous flow Patent IVC Impression: Normal gallbladder Moderate hepatomegaly no focal liver lesions
[2024-05-30] MEDS: MethylPREDNISolone SOD SUCC 62.5 MG/ML 2ML VIAL 125 MG IVP ×2 (14:15→22:00)
[2024-05-30] MEDS: DOXYCYCLINE INJ 100 MG in SODIUM CHLORIDE 0.9% (P) 100 ML IV ×2 (14:15→22:00)
[2024-05-30] MEDS: AZITHROMYCIN 250 MG TABLET 500 MG PO (14:16)
[2024-05-30] MEDS: PIPER/TAZO 3.375 GM 3.375 GM/50 ML BAG IV ×2 (14:17→22:10)
[2024-05-30 15:48] LABS: Cocci Serology, IgM Negative (Negative)
[2024-05-30 17:23] LABS: RA Screen Negative (Negative)
[2024-05-30 17:47] LABS: Path Review Blood Smear Sent to Pathologist
[2024-05-31] VITALS (25 sets, daily range): BP systolic 76–125; BP diastolic 40–99; PULSE 73–106; RESP 14–38; TEMP 36.2–37.2; O2SAT 85–96
[2024-05-31 05:07] LABS: Base Excess 2 (-3-3); HCO3 26 mEq/L (20-26); Inspired Oxygen, FIO2 50 %; O2 Saturation 96 % (91-98); PCO2 38 mmHg (32.0-48.0); PO2 82 mmHg (83-108); pH, Arterial 7.45 (7.35-7.45)
[2024-05-31 05:10] LABS: Allen Test Not Performed; Puncture Site Right Brachial
[2024-05-31] MEDS: PIPER/TAZO 3.375 GM 3.375 GM/50 ML BAG IV ×2 (05:22→13:16)
[2024-05-31 05:34] LABS: Quantiferon-TB* See Sep Rpt
[2024-05-31 05:41] LABS: Basophils % (Auto) 0 % (0-2.5); Eosinophils % (Auto) 0 % (0-10); Hemoglobin 11.4 g/dL (13.5-16.0); Immature Granulocytes % (Auto) 1 % (0-0); Immature Granulocytes Auto 0.03 Thou/mm3 (0.00-0.00); Lymphocytes # (Auto) 0.6 Thou/mm3 (1.0-4.8); Lymphocytes % (Auto) 20 % (10-50); Mean Corpuscular HGB Conc 32.6 g/dl (31.0-37.0); Mean Corpuscular Hemoglobin 22.1 pg (25.0-35.0); Mean Corpuscular Volume 68 fL (80-100); Monocytes # (Auto) 0.1 Thou/mm3 (0.0-0.8); Monocytes % (Auto) 2 % (0-12); Neutrophils # (Auto) 2.2 Thou/mm3 (1.8-7.7); Neutrophils % (Auto) 77 % (37-80); Nucleated Red Blood Cell % 0 /100 WBC (0); Platelet Count 426 Thou/mm3 (140-440); RDW Standard Deviation 44.5 fL (35.1-43.9); Red Blood Count 5.15 Miln/mm3 (4.50-5.90)
[2024-05-31 05:44] LABS: White Blood Count 2.9 Thou/mm3 (3.8-10.6)
[2024-05-31 06:26] LABS: Alanine Aminotransferase 53 U/L (10-49); Albumin, Serum 3.4 gm/dL (3.5-5.0); Albumin/Globulin Ratio 0.9 (1.2-2.2); Alkaline Phosphatase 48 U/L (46-116); Anion Gap 5 (7-16); Aspartate Amino Transferase 54 U/L (0-34); BUN/Creatinine Ratio 13 Ratio (12-20); Bilirubin,Total 0.4 mg/dL (0.3-1.2); Blood Urea Nitrogen 13 mg/dL (9-23); Calcium 8.2 mg/dL (8.3-10.6); Calcium (Corrected) 8.7 mg/dL (8.5-10.1); Carbon Dioxide 25.8 mMol/L (20.0-31.0); Chloride 99 mMol/L (98-107); Estimated Creatinine Clearance 102.6 mL/min (>60); Globulin 3.7 gm/dL (2.3-3.5); Glucose 112 mg/dL (74-106); Osmolality,Calculated 261 (275-295); Potassium 4.6 mMol/L (3.4-5.1); Sodium 130 mMol/L (136-145); Total Protein 7.1 gm/dL (5.7-8.2); eGFR > 60 See Note
[2024-05-31] MEDS: NICOTINE PATCH 14 MG/24 HR PATCH.TD24 TOP (09:31)
[2024-05-31] MEDS: AZITHROMYCIN 250 MG TABLET 500 MG PO (09:31)
[2024-05-31] MEDS: CALCIUM CARBONATE 600 MG TABLET PO (09:31)
[2024-05-31] MEDS: FLUCONAZOLE 100 MG TABLET 400 MG PO (09:31)
[2024-05-31] MEDS: DOXYCYCLINE INJ 100 MG in SODIUM CHLORIDE 0.9% (P) 100 ML IV ×2 (09:36→21:15)
[2024-05-31] MEDS: HEPARIN SOD INJ 5000 UNIT/ML VIAL SC ×2 (09:37→20:32)
[2024-05-31 09:53] LABS: Procalcitonin 1.03 ng/ml (0.0-0.49)
--- NOTE | 2024-05-31 10:04 | ESPR_ITS ---
<Statement entered by Jennifer Velasco MD - 06/01/24 08:24> Patient was seen and examined by me personally. I have directly supervised and reviewed the above documentation by the team resident and agree with its findings with any exceptions or additional findings as below. Plan of care was discussed with the attending, Dr. Walsh. Patient continues to saturate about low 90s on Hi-Flow at 27L, FiO2 was weaned from 60 to 45% over the past day. He is complaining of hunger this morning and was determined safe to resume diet per bedside swallow screen. He is mentating well and appears to be breathing comfortably on the Hi-Flow. Solu-Medrol was continued at 60 ml q6hr. HIV Ab confirmatory send out is still pending. Auto- immune workup pending. Zosyn was discontinued due to low suspicion of pseudomonas. Will continue azithromycin until tomorrow, 06/01 last day for 5 days of atypical coverage. Will continue doxycycline and fluconazole. Patient will be downgraded back to original floor team starting tomorrow 06/01/2024. Jennifer Velasco, PGY-2 Documentation for date of: 05/31/24 Subjective Subjective Interval history: Mr. Owen is a 39-year-old male with no past medical history who presented to [facility] on May 27 with a chief complaint of shortness of breath and cough. Patient has been progressively getting ill over the past few weeks with a complaint of chills, body aches, generalized weakness fever and night sweats. He was admitted to [facility] on May 27, 2024 to general medicine floor and initiated on treatment for community-acquired pneumonia and cocci pneumonia. Over the course of his hospitalization patient's oxygen requirements continued to worsen as he became more hypoxic and continue to remain febrile. Patient was also having episodes of tachycardia with a pulse noted to be consistently above 100 and ranging into the 120's. During episodes of coughing patient develops further hypoxia with O2 saturations going to the low 80s requiring rapid increase in oxygen flow rate and increase in O2 delivery. Rapid response event was called for the patient on May 29, 2024 and patient was found to be hypoxic with ABG ordered revealing that he had a pH of 7.4 O2 concentration of 145 and a CO2 of 32. Patient this morning again had a rapid response event due to hypoxia and continued fever. He was found to be tachypneic with a respiratory rate in the low 30s and oxygen flow rate of 25 L and O2 concentration noted to be 80%. 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 He did endorse a history of incarceration in 2006. He denies any recent travel or sick contacts or contact with anyone that may have had recent international travel. 05/31/2024: Patient was seen and examined by the bedside. No acute overnight events. Patient reports feeling better, his shortness of breath improved, resting comfortably while laying in bed. Reports mild cough with minimal sputum. Denies chest pain, abdominal pain, bloody stools and vomiting. Saturates well on HFNC, 27 L, FiO2 45. He is afebrile. DANIEL, ANCA, MPO, beta1,3d glucan pending, complement fixaion, CD4 pending. Blood cultures are preliminary negative after 24 hours, MRSA screen is negative. He continues to be on azithromycin, doxycyclin, zosyn, fluconazole, solumedrol. Patient is downgraded to the floors, medicine team to assume care starting 06/01/24. Exam Vital Signs Temp Pulse Resp BP Pulse Ox O2 Del Method O2 Flow Rate 98.9 F 90 16 120/64 89 L High Flow Nasal Cannula 27 05/31/24 08:00 05/31/24 09:34 05/31/24 09:34 05/31/24 09:00 05/31/24 09:34 05/30/24 16:00 05/31/24 09:34 FiO2 45 05/31/24 09:34 Narrative Exam Gen: Well-developed and well-nourished. HEENT: NCAT, PERRLA, EOMI, MMM, anicteric conjunctivae. CVS: normal S1 and S2. RRR. No M/R/G. Resp: CTA B/L. No rhonchi, rales, crackles or wheezing. Abd: soft, non-tender, non-distended. BS+ in all 4 quadrants. MSK: Good ROM in BUE & BLE. No edema or rash. Neuro: CN II-XII grossly intact. Strength 5/5 in BUE & BLE. Alert and oriented x3. Psych: appropriate mood and affect. Objective Labs 05/31/24 05:05 05/31/24 05:05 Labs: Laboratory Results - last 24 hr 05/30/24 05/30/24 05/31/24 05:36 12:07 04:54 WBC 8.1 RBC 4.62 Hgb 10.3 L Hct 31.5 L MCV 68 L MCH 22.3 L MCHC 32.7 RDW Std Deviation 44.5 H Plt Count 412 Neut % (Auto) 81 H Lymph % (Auto) 16 [place] % (Auto) 2 Eos % (Auto) 0 Baso % (Auto) 0 Neut # (Auto) 6.6 Lymph # (Auto) 1.3 [place] # (Auto) 0.1 Eos # (Auto) 0.0 Baso # (Auto) 0.0 Immature Gran # (Auto) 0.03 H Absolute Nucleated RBC 0.00 Immature Gran % 0 Nucleated RBC % 0 Smear Path Review Sent to Pathologist PT 13.8 H INR 1.3 APTT 34.9 D-Dimer 1100 H Puncture Site Right Brachial ABG pH 7.45 ABG pCO2 38 ABG pO2 82 L ABG HCO3 26 ABG O2 Saturation 96 ABG Base Excess 2 FiO2 50 Sodium 126 L Potassium 4.2 Chloride 95 L Carbon Dioxide 25.3 Anion Gap 6 L BUN 8 L Creatinine 1.1 Estim Creat Clear Calc 95.0 eGFR > 60 BUN/Creatinine Ratio 7 L Glucose 128 H D Calculated Osmolality 253 L Lactic Acid 2.0 Calcium 8.3 Corrected Calcium 8.7 Total Bilirubin 0.5 AST 74 H ALT 68 H Alkaline Phosphatase 53 Total Protein 7.3 Albumin 3.5 Globulin 3.8 H Albumin/Globulin Ratio 0.9 L Procalcitonin 1.28 H Rheumatoid Factor Negative Coccidioides IgM Ab Negative 05/31/24 05:05 WBC 2.9 L D RBC 5.15 Hgb 11.4 L Hct 35.0 L MCV 68 L MCH 22.1 L MCHC 32.6 RDW Std Deviation 44.5 H Plt Count 426 Neut % (Auto) 77 Lymph % (Auto) 20 [place] % (Auto) 2 Eos % (Auto) 0 Baso % (Auto) 0 Neut # (Auto) 2.2 Lymph # (Auto) 0.6 L [place] # (Auto) 0.1 Eos # (Auto) 0.0 Baso # (Auto) 0.0 Immature Gran # (Auto) 0.03 H Absolute Nucleated RBC 0.00 Immature Gran % 1 H Nucleated RBC % 0 Smear Path Review PT INR APTT D-Dimer Puncture Site ABG pH ABG pCO2 ABG pO2 ABG HCO3 ABG O2 Saturation ABG Base Excess FiO2 Sodium 130 L Potassium 4.6 Chloride 99 Carbon Dioxide 25.8 Anion Gap 5 L BUN 13 Creatinine 1.0 Estim Creat Clear Calc 102.6 eGFR > 60 BUN/Creatinine Ratio 13 Glucose 112 H Calculated Osmolality 261 L Lactic Acid Calcium 8.2 L Corrected Calcium 8.7 Total Bilirubin 0.4 AST 54 H ALT 53 H Alkaline Phosphatase 48 Total Protein 7.1 Albumin 3.4 L Globulin 3.7 H Albumin/Globulin Ratio 0.9 L Procalcitonin 1.03 H Rheumatoid Factor Coccidioides IgM Ab ABG Interpretation ABG results: 05/27/24 05/29/24 05/29/24 23:37 10:44 22:08 ABG pH 7.51 H 7.50 H 7.48 H ABG pCO2 28 L 32 32 ABG pO2 75 L 79 L 145 H D ABG HCO3 23 25 24 ABG O2 Saturation 96 95 98 ABG Base Excess 0 2 1 05/30/24 05/31/24 08:45 04:54 ABG pH 7.47 H 7.45 ABG pCO2 35 38 ABG pO2 86 D 82 L ABG HCO3 26 26 ABG O2 Saturation 97 96 ABG Base Excess 2 2 Quality Measures Quality Measures sepsis Current suspected stage: sepsis Possible source: pulmonary, GI tract/intra-abdominal, genitourinary and skin/soft tissue Blood cultures ordered: yes Antibiotic ordered: Yes Assessment & Plan Assessment Current Active Medications: Generic Name Dose Route Start Last Admin Trade Name Freq PRN Reason Stop Dose Admin Acetaminophen 1,000 mg 05/29/24 15:38 05/30/24 17:57 Acetaminophen 500 Mg Tablet PO 06/26/24 12:10 1,000 mg Q6H PRN Administration Pain 1-3 and Fever >101.5 Azithromycin 500 mg 05/30/24 14:15 05/31/24 09:31 Azithromycin 250 Mg Tablet PO 05/31/24 14:14 500 mg QDAY JUAN JOSE Administration Protocol Calcium Carbonate 600 mg 05/29/24 09:00 05/31/24 09:31 Calcium Carbonate 600 Mg Tablet PO 06/28/24 08:59 600 mg QDAY JUAN JOSE Administration Fluconazole 400 mg 05/29/24 09:00 05/31/24 09:31 Fluconazole 100 Mg Tablet PO 06/05/24 08:59 400 mg QDAY JUAN JOSE Administration Heparin Sodium (Porcine) 5,000 unit 05/27/24 21:00 05/31/24 09:37 Heparin Sod Inj 5000 Unit/Ml Vial SC 06/10/24 20:59 5,000 unit Q12H JUAN JOSE Administration Doxycycline Hyclate 100 mg/ 100 mls @ 100 mls/hr 05/30/24 14:00 05/31/24 09:36 Sodium Chloride IV 06/06/24 13:59 100 mls/hr BID JUAN JOSE Administration Piperacillin/Tazobactam/Dextrose 3.375 gm in 50 mls @ 100 mls/hr 05/30/24 14:15 05/31/24 05:22 Zosyn IV 06/06/24 14:14 100 mls/hr Q8HR JUAN JOSE Administration Methylprednisolone Sodium Succinate 60 mg 05/31/24 12:00 Methylprednisolone Sod Succ 40 Mg Vial IVP 06/07/24 11:59 Q6HR JUAN JOSE Nicotine 14 mg 05/28/24 09:00 05/31/24 09:31 Nicotine Patch 14 Mg/24 Hr Patch.Td24 TOP 06/27/24 08:59 14 mg QDAY JUAN JOSE Administration Ondansetron HCl 4 mg 05/29/24 21:51 05/29/24 23:00 Ondansetron Inj 2 Mg/Ml Inj 2 Ml IV 06/28/24 21:50 4 mg Q6HR PRN Administration NAUSEA OR VOMITING Protocol Promethazine HCl/Dextromethorphan 5 ml 05/28/24 16:56 05/30/24 02:34 Promethazine/Dm Syrup 5 Ml Dose PO 06/27/24 16:55 5 ml Q4HR PRN Administration COUGH Protocol Sennosides 1 tab 05/27/24 12:11 Senna Tablet PO 06/26/24 12:10 QDAY PRN constipation Protocol Plan The patient is a 39-year-old male with no significant past medical history who presented to [facility] with a chief complaint of shortness of breath and cough. Patient reports that he has been feeling weak for about 3 weeks, complains of chills, body aches, generalized weakness, fatigue and fever which has progressed eventually over the course of the last 3 weeks and he reports feeling worse, patient complains of nonproductive cough usually when he wakes up which causes him to throw up. He was admitted to the floors on 05/27, but due to hypoxia he was upgraded to the ICU for monitoring and management. Neurology Stable. AOX3. Cardiovascular #Sinus tachycardia, resolved Likely secondary to hypoxia and increased work of breathing along with general discomfort and fever Respiratory #Acute hypoxic respiratory failure secondary to unknown source currently #ARDS with [place] criteria met #Questionable history of vasculitides such as Granulomatosis with polyangiitis or eosinophilic granulomatosis with polyangiitis Patient has been receiving Levaquin 750 mg IV daily since admission on the 05/27/24-05/27/24. Fluconazole was added on May 29, 2024 Procalcitonin negative 05/31/24 ABG reveals a pH of 7.45, CO2 38, O2 saturation 96 and pO2 of 82 Patient currently on high flow nasal cannula with O2 flow rate of 27 and FiO2 of 45% Chest x-ray and chest CT consistent with extensive bilateral pneumonia Nicotine patch due to pack a day smoking history Testing for autoimmune vasculitides pending with testing for C ANCA, MPO, R3, complement fixation, DANIEL Initiate Solu-Medrol 60 mg q6hr IV daily to assist 05/30 procalcitonin 1.28 05/31 procalcitonin 1.03 PF ratio 1.82 indicating moderate ARDS Plan: -Continue oxygen, wean off as needed ? Continue Solu-Medrol 05/30?current ? Continue azithromycin 05/27?06/01 ? Doxycycline 05/30?current ? Zosyn 05/30?current ? Fluconazole 05/28-current ?Autoimmune vasculitides workup pending ? CD4 count pending ? Invasive fungal infection workup pending GI and F/E/N #Nausea vomiting, resolved No recorded episodes of emesis Plan: -On Zofran 4 mg IV Q6 hourly as needed for nausea #Transaminitis, improving Upon admission patient had transaminitis with AST noted to be 85 ALT 68 Transaminitis pattern continues with AST above ALT Patient has been receiving acetaminophen for management of fevers Right upper quadrant ultrasound?mild hepatomegaly. Plan: -GI prophylaxis with Protonix 40 mg p.o. daily ?Continue to monitor CMP Renal #Mild Hyponatremia, improving On initial presentation sodium noted to be 128 Improved to 132 and down to 126 Appears asymptomatic but may be source of nausea vomiting other than patient's current infection Serum osmolality also noted to be hypoosmolar We will follow with a.m. labs Plan: ? Patient resume his diet. ? Continue to monitor CMP Heme #Microcytic anemia #Iron deficiency anemia hemoglobin currently 10.3 and on initial presentation noted to be 12.1 MCV noted to be 68 and iron 17 Iron panel showed signs of iron deficiency Hgb 05/31: 11.4 Plan: - will continue to monitor CBC - transfuse if Hb<7 Endo #Hypocalcemia 05/30:Calcium 7.7 and corrected noted to be 8.1 05/31: Corrected calcium 8.2 - Patient calcium carbonate 600 mg p.o. daily ID #Bilateral pneumonia On initial presentation patient did have leukocytosis at 11.8 with a peak of 13.9 following day which is improved to 8.1 Original IgM cocci negative with repeat ordered Hepatitis negative COVID-negative HIV rapid test negative H. influenzae pending, urine Legionella pending, Neisseria meningitidis pending. Urine strep antigen pending. Beta 1,3D glucan pending Sputum cultures negative with no WBCs or organisms seen. Original blood cultures negative for more than 48 hours, 05/30 repeat blood cultures negative preliminary 24 hrs. Plan: - azithromycin, doxycycline, and Zosyn DVT prophylaxis: Heparin 5000 subcu twice daily GI prophylaxis: Protonix 40 p.o. daily Diet:regular [place]: Not indicated Lines: 2 peripheral IVs Drips: None Vent: High flow nasal cannula CODE STATUS: Full code Disposition: downgrade to the telemetry, hospitalist team to assume care 06/01/24 Plan of care discussed with attending Dr. Walsh, PGY-[address] Velasco and PGY-[address] Santos. Denise Pinzon MD, PGY 1.
--- NOTE | 2024-05-31 13:29 | PD.INTPROG ---
Documentation for date of: 05/31/24 Subjective Subjective Interval history: This is a 39-year-old male who presented to the ER on 27 May. Initially he presented for shortness of breath cough and general malaise. Apparently he had been feeling unwell for the last 2 to 3 weeks. He did have some nonproductive cough. Chest x-ray showed bilateral diffuse infiltrates and the medicine team was contacted. He was admitted to the floor and placed on high flow nasal cannula initially at 100% FiO2 and started on antibiotics. He was started on fluconazole as well as Levaquin given that there was a high suspicion for underlying cocci pneumonia. He has had 2 rapid responses over the last 48 hours due to hypoxia and desatting. The patient is able to tolerate minimal movements prior to desatting. Today the ICU is consulted for further evaluation. The patient is currently on 80% FiO2 he is awake alert and oriented. He states that he has shortness of breath however minimal cough. He does complain of some upper abdominal/lower rib pain which he attributes to his recent cough. He denies any chest pain. Does note that he has had some night sweats and fever over the last several days. There has been no significant improvement since arrival 3 days ago. His respiratory status remains unchanged if not slightly worse. He is currently on isolation with airborne precautions behind a closed door. At this point in time due to an abundance of caution as well as closer observation and monitoring we will transfer to the ICU for ongoing management of his acute hypoxic respiratory failure. I did discuss with the patient the probable need for intubation in the near future. He is okay with intubation 05/31- no acute overnight events, decrease in FiO2 needs, feels better with less WOB today, afebrile, Critical Care Note Critical care time (min.): 42 Exam Vital Signs Temp Pulse Resp BP Pulse Ox O2 Del Method O2 Flow Rate 98.9 F 92 24 H 119/64 88 L High Flow Nasal Cannula 27 05/31/24 08:00 05/31/24 10:00 05/31/24 10:00 05/31/24 10:00 05/31/24 10:00 05/30/24 16:00 05/31/24 09:34 FiO2 45 05/31/24 09:34 Narrative Exam Gen- NAD, AAOx4, nl body habitus HEENT- NC/AT, mucosa hydrated, sclera anicteric, EOMI Chest- diminished but clear, no crackles/wheeze heard today, HRRR, no murmur/bruits, no increase in WOB Abd- s/nt/bs+ Ext- no edema, pulses palp, no clubbing, no mottling, moves all 4 Physical Exam Completion Physical Exam Complete?: Yes 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 Labs 05/31/24 05:05 05/31/24 05:05 Labs: Laboratory Results - last 24 hr 05/30/24 05/30/24 05/31/24 05:36 12:07 04:54 WBC RBC Hgb Hct MCV MCH MCHC RDW Std Deviation Plt Count Neut % (Auto) Lymph % (Auto) [place] % (Auto) Eos % (Auto) Baso % (Auto) Neut # (Auto) Lymph # (Auto) [place] # (Auto) Eos # (Auto) Baso # (Auto) Immature Gran # (Auto) Absolute Nucleated RBC Immature Gran % Nucleated RBC % Smear Path Review Sent to Pathologist Puncture Site Right Brachial ABG pH 7.45 ABG pCO2 38 ABG pO2 82 L ABG HCO3 26 ABG O2 Saturation 96 ABG Base Excess 2 FiO2 50 Sodium Potassium Chloride Carbon Dioxide Anion Gap BUN Creatinine Estim Creat Clear Calc eGFR BUN/Creatinine Ratio Glucose Calculated Osmolality Calcium Corrected Calcium Total Bilirubin AST ALT Alkaline Phosphatase Total Protein Albumin Globulin Albumin/Globulin Ratio Procalcitonin Rheumatoid Factor Negative Coccidioides IgM Ab Negative 05/31/24 05:05 WBC 2.9 L D RBC 5.15 Hgb 11.4 L Hct 35.0 L MCV 68 L MCH 22.1 L MCHC 32.6 RDW Std Deviation 44.5 H Plt Count 426 Neut % (Auto) 77 Lymph % (Auto) 20 [place] % (Auto) 2 Eos % (Auto) 0 Baso % (Auto) 0 Neut # (Auto) 2.2 Lymph # (Auto) 0.6 L [place] # (Auto) 0.1 Eos # (Auto) 0.0 Baso # (Auto) 0.0 Immature Gran # (Auto) 0.03 H Absolute Nucleated RBC 0.00 Immature Gran % 1 H Nucleated RBC % 0 Smear Path Review Puncture Site ABG pH ABG pCO2 ABG pO2 ABG HCO3 ABG O2 Saturation ABG Base Excess FiO2 Sodium 130 L Potassium 4.6 Chloride 99 Carbon Dioxide 25.8 Anion Gap 5 L BUN 13 Creatinine 1.0 Estim Creat Clear Calc 102.6 eGFR > 60 BUN/Creatinine Ratio 13 Glucose 112 H Calculated Osmolality 261 L Calcium 8.2 L Corrected Calcium 8.7 Total Bilirubin 0.4 AST 54 H ALT 53 H Alkaline Phosphatase 48 Total Protein 7.1 Albumin 3.4 L Globulin 3.7 H Albumin/Globulin Ratio 0.9 L Procalcitonin 1.03 H Rheumatoid Factor Coccidioides IgM Ab Assessment & Plan Additional Assessment Additional Assessment: In brief this is a 39y M admitted for SOB and acute hypoxic resp failure with b/l PNA. 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 On arrival he was started on fluconazole and levaquin. CT performed on 05/27 shows diffuse b/l infiltrated. At this point in time pt does not have a high WBC# or any significant L shift. He has been on IV ABx for 3 days without improvement in his overall condition. He cont to have WOB and desats quickly . Additional differentials include viral PNA, fungal PNA, atypical PNA and may also include DAD, DAH, ILD , vasculitis with drug toxicity being less likely given he only takes tylenol prn at home. Does admit to smoking however denies Vaping. Will cont with HFNC for now and add high dose steroids. Will change coverage to azithro, doxy and zosyn. start solumedrol, check DANIEL, pANCA/cANCA (MPO, PR3). Beta D glucan sent already and pending - improvement in FiO2 needs today down to 45% - solumedrol changed to 60mg q6 - rheumatology workup pending Respiratory Alkalosis- resolved ARDS- p/f ratio of 114 on 05/30 - pf ratio of 164 today which shows some improvement from yesterday Renal HypoNa- 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 monitor GI Transaminitis- Hep viral panel is neg, - US shows some mild hepatomegaly - ? if related to underlying pulm process Endo stable Heme Microcytic Anemia- check an iron panel. Has dropped from 12 to 10 since arrival. No active bleeding noted ID PNA- on broad spectrum abx with cx pending - coverage changed to azithro/doxy/zosyn/fluc -> at this point in time will complete atypical coverage for 5 days - no evidence of pseudomonas therefore will stop zosyn - fu Beta D glucan levels and if neg DC fluc given that Cocci IgG and IgM are neg case d/w ICU team labs, imaging, records reviewed ~42ccmin required for eval, exam, review, intervention , discussion and formulation of POC for this critically ill pt with resp failure at high risk for further and ongoing decompensation Provider Notation Provider Notation: Although this document has been carefully reviewed, there may still be some phonetic and other typographical errors. These errors are purely grammatical due to imperfections in the software program and should not be construed in any way to compromise the substance of the patient's medical care during this visit. Thank you for the opportunity and privilege in assisting you with this patient's care and management.
--- NOTE | 2024-05-31 15:10 | PD.RESEVENT ---
Documentation for date of: 05/31/24 Event Note Event Note: Mr. Owen is a 39-year-old male with no significant past medical history who was admitted to [facility] for acute hypoxic respiratory failure secondary to pneumonia. Patient was upgraded to ICU by hospitalist team due to increased work of breathing and increased oxygen requirement. In ICU patient's antibiotic coverage was changed to azithromycin, doxycycline and Zosyn. Patient was started on Solu-Medrol DANIEL, p-ANCA/c-ANCA were ordered due to suspicion of vasculitis. Patient's oxygen requirement improved and further plan is to downgrade patient back to medical floor. Medical team will resume care of patient in AM. Case discussed with Attending Dr. Mercedes Welsh PGY1
--- NOTE | 2024-05-31 16:16 | PC.SS ---
Update: Patient has been downgraded to Tele.
--- NOTE | 2024-05-31 18:08 | PC.NURSE ---
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 Patient awake, alert and oriented sitting on the side of bed receiving care from respiratory therapist. Patient denies any pain stating No pain, I honestly feel a lot better.
[2024-05-31] MEDS: PANTOPRAZOLE 40 MG TABLET PO (20:32)
[2024-06-01] VITALS (14 sets, daily range): BP systolic 116–135; BP diastolic 68–80; PULSE 74–99; RESP 14–30; TEMP 36.1–36.4; O2SAT 89–96
--- NOTE | 2024-06-01 03:22 | PC.NURSE ---
[facility] 0200 [facility] 0309.
[2024-06-01 05:50] LABS: Basophils % (Auto) 0 % (0-2.5); Eosinophils % (Auto) 0 % (0-10); Hematocrit 32.4 % (41.0-53.0); Hemoglobin 10.6 g/dL (13.5-16.0); Immature Granulocytes % (Auto) 1 % (0-0); Immature Granulocytes Auto 0.04 Thou/mm3 (0.00-0.00); Lymphocytes # (Auto) 0.6 Thou/mm3 (1.0-4.8); Lymphocytes % (Auto) 9 % (10-50); Mean Corpuscular HGB Conc 32.7 g/dl (31.0-37.0); Mean Corpuscular Volume 67 fL (80-100); Monocytes # (Auto) 0.1 Thou/mm3 (0.0-0.8); Monocytes % (Auto) 1 % (0-12); Neutrophils # (Auto) 6.2 Thou/mm3 (1.8-7.7); Neutrophils % (Auto) 89 % (37-80); Nucleated Red Blood Cell % 0 /100 WBC (0); Platelet Count 461 Thou/mm3 (140-440); RDW Standard Deviation 43.3 fL (35.1-43.9); Red Blood Count 4.82 Miln/mm3 (4.50-5.90)
[2024-06-01 06:11] LABS: Alanine Aminotransferase 126 U/L (10-49); Albumin, Serum 3.3 gm/dL (3.5-5.0); Albumin/Globulin Ratio 0.9 (1.2-2.2); Alkaline Phosphatase 53 U/L (46-116); Anion Gap 6 (7-16); Aspartate Amino Transferase 114 U/L (0-34); BUN/Creatinine Ratio 16 Ratio (12-20); Bilirubin,Total 0.4 mg/dL (0.3-1.2); Blood Urea Nitrogen 13 mg/dL (9-23); Calcium 8.3 mg/dL (8.3-10.6); Calcium (Corrected) 8.9 mg/dL (8.5-10.1); Carbon Dioxide 28.1 mMol/L (20.0-31.0); Chloride 102 mMol/L (98-107); Creatinine (Component) 0.8 mg/dL (0.6-1.3); Estimated Creatinine Clearance 128.2 mL/min (>60); Globulin 3.7 gm/dL (2.3-3.5); Glucose 129 mg/dL (74-106); Osmolality,Calculated 274 (275-295); Potassium 4.3 mMol/L (3.4-5.1); Sodium 136 mMol/L (136-145); eGFR > 60 See Note
[2024-06-01 07:00] LABS: Collection Type, Urine Clean Catch; Squamous Epithelial Cell,Urine 0 /hpf (0-5)
[2024-06-01 08:03] LABS: Bilirubin,Urine Negative (Negative); Blood,Urine Negative (Negative); Clarity,Urine Clear (Clear/Hazy); Color,Urine Yellow (Lt Yel-Yel); Glucose, Urine Negative (Negative); Ketones,Urine Negative (Negative); Leukocyte Esterase,Urine Negative (Negative); Nitrite,Urine Negative (Negative); PH,Urine 6.5 (5.0-7.0); Protein,Urine Trace (Neg - Trace); RBC,Urine 1 /hpf (0-3); Specific Gravity,Urine 1.019 (1.001-1.035); WBC,Urine < 1 /hpf (0-5)
[2024-06-01] MEDS: CALCIUM CARBONATE 600 MG TABLET PO (08:27)
[2024-06-01] MEDS: HEPARIN SOD INJ 5000 UNIT/ML VIAL SC ×2 (08:27→20:45)
[2024-06-01] MEDS: DOXYCYCLINE INJ 100 MG in SODIUM CHLORIDE 0.9% (P) 100 ML IV (08:27)
[2024-06-01] MEDS: FLUCONAZOLE 100 MG TABLET 400 MG PO (08:28)
[2024-06-01] MEDS: NICOTINE PATCH 14 MG/24 HR PATCH.TD24 TOP (08:28)
[2024-06-01] MEDS: PANTOPRAZOLE 40 MG TABLET PO (08:28)
--- NOTE | 2024-06-01 09:30 | PC.SS ---
Follow up note: Pt is an ICU down grade. Pt is on IV steroids. Pt is on IV antibiotic. Pt will return home upon dc.
[2024-06-01 09:40] LABS: Ag, Group B Strep, Urine Negative (Negative); Ag, H Influenza B, Urine Negative (Negative); Ag, N Mening B/E Coli K1, Ur Negative (Negative); Ag, N Meningitidis ACY W135 Ur Negative (Negative); Ag, Strep Pneumonia Urine Negative (Negative)
[2024-06-01] MEDS: AZITHROMYCIN 250 MG TABLET 500 MG PO (09:46)
[2024-06-01] MEDS: PIPER/TAZO 3.375 GM 3.375 GM/50 ML BAG IV ×3 (09:47→21:35)
--- NOTE | 2024-06-01 11:28 | XR_ITS ---
Examination: AP chest single view TECHNIQUE: AP portable upright chest single view Exam date and time: June 01, 2024 1150 hours Comparison May 29, 2024, May 30, 2024 INDICATIONS: Shortness of breath beginning 2 days ago. FINDINGS: Again noted severe bilateral pneumonia No significant cardiac enlargement The osseous structures are intact IMPRESSION: No significant change in extensive bilateral pneumonia
[2024-06-01] MEDS: PANTOPRAZOLE 20 MG TABLET PO (12:10)
--- NOTE | 2024-06-01 13:21 | ESPR_ITS ---
<Statement entered by Rai Magallanes MD - 06/01/24 15:29> Senior Resident Attestation: I supervised/discussed management plan with Resident physician Dr. Welsh, and was involved in the care of this patient. I personally saw and examined the patient and discussed the assessment and plan with the entire medicine team, including my attending. I agree with the assessment and plan as documented. Patient's care was discussed with attending physician, Dr. Aram Magallanes MD PGY-3 Documentation for date of: 06/01/24 Subjective Subjective Interval history: Patient downgraded from ICU. Patient currently saturating 96 on high flow nasal cannula 35 L, FiO2 55 Will continue Zosyn, doxycycline, azithromycin and fluconazole. Will continue Solu-Medrol Confirmed with lab, patient's rapid HIV test was reactive, pending confirmatory test. Rheumatoid factor was negative Will consult infectious disease for recommendations Repeat chest x-ray today. Will continue to monitor patient. Exam Vital Signs Temp Pulse Resp BP Pulse Ox O2 Del Method O2 Flow Rate 97.0 F 99 16 118/71 96 High Flow Nasal Cannula 35 06/01/24 08:00 06/01/24 12:00 06/01/24 10:49 06/01/24 08:00 06/01/24 10:49 06/01/24 08:00 06/01/24 10:49 FiO2 55 06/01/24 10:49 Narrative Exam General: Awake and in no acute distress. Conversational and non-toxic appearing. HEENT: Normocephalic, atraumatic, mucous membranes moist. Heart: Regular rate and rhythm, no murmurs. Lungs: Clear to auscultation with no wheezing or crackles. Coarse breath sounds bilaterally, patient currently on high flow oxygen. Abdomen: Soft, nondistended, nontender, positive bowel sounds. ?No guarding or rebound tenderness. Neurologic: Alert and oriented x3, no gross neurological deficit, and patient able to move all 4 extremities. Extremities: No edema. Skin: no rash, no ecchymoses. Objective Labs 06/01/24 05:20 06/01/24 05:20 Labs: Laboratory Results - last 24 hr 06/01/24 06/01/24 05:00 05:20 WBC 7.0 D RBC 4.82 Hgb 10.6 L Hct 32.4 L MCV 67 L MCH 22.0 L MCHC 32.7 RDW Std Deviation 43.3 Plt Count 461 H D Neut % (Auto) 89 H Lymph % (Auto) 9 L [place] % (Auto) 1 Eos % (Auto) 0 Baso % (Auto) 0 Neut # (Auto) 6.2 Lymph # (Auto) 0.6 L [place] # (Auto) 0.1 Eos # (Auto) 0.0 Baso # (Auto) 0.0 Immature Gran # (Auto) 0.04 H Absolute Nucleated RBC 0.00 Immature Gran % 1 H Nucleated RBC % 0 Sodium 136 Potassium 4.3 Chloride 102 Carbon Dioxide 28.1 Anion Gap 6 L BUN 13 Creatinine 0.8 Estim Creat Clear Calc 128.2 eGFR > 60 BUN/Creatinine Ratio 16 Glucose 129 H Calculated Osmolality 274 L Calcium 8.3 Corrected Calcium 8.9 Total Bilirubin 0.4 AST 114 H ALT 126 H Alkaline Phosphatase 53 Total Protein 7.0 Albumin 3.3 L Globulin 3.7 H Albumin/Globulin Ratio 0.9 L Ur Collection Type Clean Catch Urine Color Yellow Urine Clarity Clear Urine pH 6.5 Ur Specific [place] 1.019 Urine Protein Trace Urine Glucose (UA) Negative Urine Ketones Negative Urine Blood Negative Urine Nitrite Negative Urine Bilirubin Negative Urine Urobilinogen (Auto) 2.0 Ur Leukocyte Esterase Negative Urine RBC 1 Urine WBC < 1 Ur Squamous Epith Cells 0 Urine Bacteria None H.influenzae Type B Ag Negative U N.meningtid ACY/W135 Negative N.meningitid B/E.col K1 Negative Urine Strep B Antigen Negative Ur Strep pneumoniae Ag Negative ABG Interpretation ABG results: 05/27/24 05/29/24 05/29/24 23:37 10:44 22:08 ABG pH 7.51 H 7.50 H 7.48 H ABG pCO2 28 L 32 32 ABG pO2 75 L 79 L 145 H D ABG HCO3 23 25 24 ABG O2 Saturation 96 95 98 ABG Base Excess 0 2 1 05/30/24 05/31/24 08:45 04:54 ABG pH 7.47 H 7.45 ABG pCO2 35 38 ABG pO2 86 D 82 L ABG HCO3 26 26 ABG O2 Saturation 97 96 ABG Base Excess 2 2 Quality Measures Quality Measures sepsis Current suspected stage: ruled out Possible source: pulmonary, GI tract/intra-abdominal, genitourinary and skin/soft tissue Blood cultures ordered: yes Antibiotic ordered: Yes Assessment & Plan Assessment Current Active Medications: Generic Name Dose Route Start Last Admin Trade Name Freq PRN Reason Stop Dose Admin Acetaminophen 1,000 mg 05/29/24 15:38 05/30/24 17:57 Acetaminophen 500 Mg Tablet PO 06/26/24 12:10 1,000 mg Q6H PRN Administration Pain 1-3 and Fever >101.5 Azithromycin 500 mg 06/01/24 09:00 06/01/24 09:46 Azithromycin 250 Mg Tablet PO 06/08/24 08:59 500 mg QDAY JUAN JOSE Administration Calcium Carbonate 600 mg 05/29/24 09:00 06/01/24 08:27 Calcium Carbonate 600 Mg Tablet PO 06/28/24 08:59 600 mg QDAY JUAN JOSE Administration Fluconazole 400 mg 05/29/24 09:00 06/01/24 08:28 Fluconazole 100 Mg Tablet PO 06/05/24 08:59 400 mg QDAY JUAN JOSE Administration Heparin Sodium (Porcine) 5,000 unit 05/27/24 21:00 06/01/24 08:27 Heparin Sod Inj 5000 Unit/Ml Vial SC 06/10/24 20:59 5,000 unit Q12H JUAN JOSE Administration Doxycycline Hyclate 100 mg/ 100 mls @ 100 mls/hr 05/30/24 14:00 06/01/24 08:27 Sodium Chloride IV 06/06/24 13:59 100 mls/hr BID JUAN JOSE Administration Piperacillin/Tazobactam/Dextrose 3.375 gm in 50 mls @ 12.5 mls/hr 06/01/24 14:00 Zosyn IV 06/08/24 13:59 Q8HR JUAN JOSE Protocol Methylprednisolone Sodium Succinate 60 mg 05/31/24 12:00 06/01/24 11:53 Methylprednisolone Sod Succ 40 Mg Vial IVP 06/07/24 11:59 60 mg Q6HR JUAN JOSE Administration Nicotine 14 mg 05/28/24 09:00 06/01/24 08:28 Nicotine Patch 14 Mg/24 Hr Patch.Td24 TOP 06/27/24 08:59 14 mg QDAY JUAN JOSE Administration Ondansetron HCl 4 mg 05/29/24 21:51 05/29/24 23:00 Ondansetron Inj 2 Mg/Ml Inj 2 Ml IV 06/28/24 21:50 4 mg Q6HR PRN Administration NAUSEA OR VOMITING Protocol Pantoprazole Sodium 40 mg 05/31/24 19:30 06/01/24 08:28 Pantoprazole 40 Mg Tablet PO 06/30/24 19:29 40 mg QDAY JUAN JOSE Administration Promethazine HCl/Dextromethorphan 5 ml 05/28/24 16:56 05/30/24 02:34 Promethazine/Dm Syrup 5 Ml Dose PO 06/27/24 16:55 5 ml Q4HR PRN Administration COUGH Protocol Sennosides 1 tab 05/27/24 12:11 Senna Tablet PO 06/26/24 12:10 QDAY PRN constipation Protocol Plan Summary: Mr. Owen is a 39-year-old male with no significant past medical history who presented to [facility] with a chief complaint of shortness of breath and cough. Patient admitted for acute hypoxic respiratory failure secondary to pneumonia. # Acute hypoxic respiratory failure secondary to # Sepsis secondary to # Bilateral pneumonia # Leukocytosis # ARDS with [place] criteria met,resolving -Patient presented with shortness of breath in the ED, was started on oxygen via nasal cannula. Patient reports having fever myalgia and chills for about 3 weeks with cough which progressively have worsened. -Patient met SIRS criteria 3/4, P133, RR 25, temp 103.2 on presentation, chest x-ray in ED significant for bilateral pneumonia. WBC count 11.8, neutrophil 84%. Pro-Jayy elevated 0.61. -Patient tested for influenza A and B, COVID rapid test negative in ED. fibrinogen elevated in ED 596 -Curb 65 score 1, low risk. PSI/port score 88 points, risk class III 0.92-2.8% -Patient was given ceftriaxone and azithromycin in ED. -Urine bacteria rare, leukocyte esterase negative, nitrite negative, patient asymptomatic low suspicion of UTI -Patient was given about 3 L fluid in ED -CT chest showed diffuse severe bilateral pneumonia -Hepatitis panel nonreactive, COVID, RSV negative -Group A rapid strep negative, cocci IgM, IgG negative -MRSA nasal screen negative, sputum culture shows mixed oral kylie urine culture negative. -Patient upgraded to ICU on 05/30 due to increased work of breathing and close observation with possible intubation, patient was started on steroids, Zosyn, azithromycin and doxycycline. Fluconazole was continued. -Suspicion of vasculitis by ICU team, ordered QuantiFERON test, rheumatoid factor, DANIEL screen, ANCA screen, antiproteinase 3, antimyeloperoxidase, complement C3, complement C4 C, lymphocyte subset panel, CD4 percentage, absolute CD4 count, CD4/CD8 ratio, percentage CD8 cell, absolute CD8 count. -Patient downgraded on 06/01 due to improvement in work of breathing. -Repeat cocci IgM negative, hepatitis panel nonreactive, H influenza type B antigen, Neisseria meningitis antigen, repeat COVID, urine strep a antigen, urine strep pneumonia antigen negative. -Patient's initial blood culture negative, urine culture negative, Gram stain and sputum culture negative, MRSA nares negative. Plan: -Continue Zosyn, azithromycin, doxycycline (05/30- and fluconazole (05/27- -continue Solu-Medrol 60 mg IV push every 6 hours -Follow repeat blood culture and urine culture -Supplemental oxygen as needed -Pending urine Legionella test -Pending HIV confirmatory test -Pending CD4/CD8 ratio -Continue to monitor CBC -Consulted infectious disease, appreciate recommendations -Repeat chest x-ray # Mild hyponatremia -Suspicion of Legionella pneumonia due to hyponatremia along with bilateral pneumonia. Sodium on admission 128. -Possible hyponatremia in setting of pneumonia, lung disease -Follow Legionella urine antigen -Monitor CMP in a.m. # Microcytic hypochromic anemia -Hemoglobin 12.1, MCV 69, MCH 22 on admission -Iron panel shows iron 17, TIBC 262, iron saturation 6, unsaturated iron binding 245 -Peripheral blood film confirms microcytic hypochromic anemia with target cells -Monitor CBC in a.m. # Transaminitis -Possible in setting of sepsis, will continue to monitor. -Possible in setting of fluconazole -Follow CMP in a.m. # Electrolyte imbalance # Hypophosphatemia # Hypocalcemia -Continue to monitor electrolytes -Continue calcium carbonate DVT prophylaxis: Heparin twice daily GI prophylaxis: Protonix PO Diet: Cardiac Lines: Peripheral IV Code status: Full code Physical therapy: Not ordered/indicated Case discussed with Attending Dr. Chiu and Dr. Magallanes PGY3. Yadira Welsh PGY1 Attending Provider Attestation/Addendum I have discussed and was present for the essential components of the history, physical examination, diagnosis, and treatment plan with the resident. I agree with the patient's care as documented by the resident and amended herein by me. Maury Chiu DO. Patient seen and evaluated this AM. Patient continues on high flow nasal cannula this morning, no subjective complaints. Will consult infectious disease and start Bactrim at this time for HIV diagnosis and possible PCP pneumonia. Will also consult pulm for additional recommendations. Although this document has been carefully reviewed, there may still be some phonetic and other typographical errors. These errors are purely grammatical due to imperfections in the software program and should not be construed in any way to compromise the substance of the patient's medical care during this visit.
--- NOTE | 2024-06-01 14:20 | ESPR_ITS ---
Subjective Subjective Interval history: called [facility] lab. they do not have a pt there with his name or birthday. so may not have hiv at all. Exam Vital Signs Temp Pulse Resp BP Pulse Ox O2 Del Method O2 Flow Rate 97.0 F 99 16 118/71 96 High Flow Nasal Cannula 35 06/01/24 08:00 06/01/24 12:00 06/01/24 10:49 06/01/24 08:00 06/01/24 10:49 06/01/24 08:00 06/01/24 10:49 FiO2 55 06/01/24 10:49 Narrative Exam loquacious. anxious. pleasant. same female partner for 5 yrs[address] is on the road a bit. had tatoos as a youth. lost 50# intentionally recently, Objective - Internal Medicine Labs 06/01/24 05:20 06/01/24 05:20 Labs: Laboratory Results - last 24 hr 06/01/24 06/01/24 05:00 05:20 WBC 7.0 D RBC 4.82 Hgb 10.6 L Hct 32.4 L MCV 67 L MCH 22.0 L MCHC 32.7 RDW Std Deviation 43.3 Plt Count 461 H D Neut % (Auto) 89 H Lymph % (Auto) 9 L [place] % (Auto) 1 Eos % (Auto) 0 Baso % (Auto) 0 Neut # (Auto) 6.2 Lymph # (Auto) 0.6 L [place] # (Auto) 0.1 Eos # (Auto) 0.0 Baso # (Auto) 0.0 Immature Gran # (Auto) 0.04 H Absolute Nucleated RBC 0.00 Immature Gran % 1 H Nucleated RBC % 0 Sodium 136 Potassium 4.3 Chloride 102 Carbon Dioxide 28.1 Anion Gap 6 L BUN 13 Creatinine 0.8 Estim Creat Clear Calc 128.2 eGFR > 60 BUN/Creatinine Ratio 16 Glucose 129 H Calculated Osmolality 274 L Calcium 8.3 Corrected Calcium 8.9 Total Bilirubin 0.4 AST 114 H ALT 126 H Alkaline Phosphatase 53 Total Protein 7.0 Albumin 3.3 L Globulin 3.7 H Albumin/Globulin Ratio 0.9 L Ur Collection Type Clean Catch Urine Color Yellow Urine Clarity Clear Urine pH 6.5 Ur Specific [place] 1.019 Urine Protein Trace Urine Glucose (UA) Negative Urine Ketones Negative Urine Blood Negative Urine Nitrite Negative Urine Bilirubin Negative Urine Urobilinogen (Auto) 2.0 Ur Leukocyte Esterase Negative Urine RBC 1 Urine WBC < 1 Ur Squamous Epith Cells 0 Urine Bacteria None H.influenzae Type B Ag Negative U N.meningtid ACY/W135 Negative N.meningitid B/E.col K1 Negative Urine Strep B Antigen Negative Ur Strep pneumoniae Ag Negative ABG Interpretation ABG results: 05/27/24 05/29/24 05/29/24 23:37 10:44 22:08 ABG pH 7.51 H 7.50 H 7.48 H ABG pCO2 28 L 32 32 ABG pO2 75 L 79 L 145 H D ABG HCO3 23 25 24 ABG O2 Saturation 96 95 98 ABG Base Excess 0 2 1 05/30/24 05/31/24 08:45 04:54 ABG pH 7.47 H 7.45 ABG pCO2 35 38 ABG pO2 86 D 82 L ABG HCO3 26 26 ABG O2 Saturation 97 96 ABG Base Excess 2 2 Assessment & Plan A&P Narrative pneumonia. cocci neg. procal not neg. staph vs pjp possible hiv. awaiting confirmation. called lab, advised them that [facility] does not have hiv test to confirm, send out stated that confirmation sent to [facility] that may be why no result available at [facility], but [facility] takes 5d. that seems very long to me ldh is high, so will change doxy to bactrim at pjp doses and f/u thursday. usual dose of bactrim is 15-20 mg/kg/day of the tmp component. can be po if taking po. bactrim also good for staph(MRSA) as well as pjp. ordered a few more labs. tried not to repeat but may have. if he has hiv, gf needs to be tested. if not, then no testing for her needed. Time Spent With Patient Time: Total time spent is greater than 50% in coordination of care (as documented) at patient's floor/unit and/or counseling patient:
[2024-06-01 14:50] LABS: Syphilis Nonreactive (Nonreactive)
[2024-06-01] MEDS: TRIMETHOPRIM/SULFA 160/800 DS TABLET 2 TAB PO ×2 (17:11→20:49)
--- NOTE | 2024-06-01 18:21 | ESCONSULT_ITS ---
RE: TONI RAMOS : 1985 DATE OF CONSULTATION: 06/01/2024 REFERRING PHYSICIAN: Wayne Long MD REASON FOR CONSULTATION: Positive HIV test. HISTORY OF PRESENT ILLNESS: The patient has a positive HIV test. He was sent to [facility] for testing. They did call the [facility], but they did not have the result. I called the lab and they said specimen sent to [facility] for [facility], it takes about 5 days there and so hopefully will get result quickly. The patient has no other medical problems. He reports only intimate contact with the same woman for 5 years. PAST SURGICAL HISTORY: None. ALLERGIES: NONE NOTED. IMMUNIZATIONS: Last tetanus is not known. He does not have a flu shot and has not had pneumococcal. FAMILY HISTORY: Unremarkable. SOCIAL HISTORY: He lives with his mother. Last sexual contact was a couple of weeks ago. He does a lot of travel within [place] and [place] and is occ overnight. He is a nonsmoker. He has abnormal chest x-ray, which may be consistent with Pneumocystis or Staph pneumonia, it is hard to say. He does not recall recent influenza. Staphylococcus pneumonia is known to follow influenza but is also occurs spontaneously. His total white count is normal. There is a also lack of lymphocytes, which is commonly seen in advanced HIV. Unfortunately, there is no diagnostic results. His LDH is elevated, so we should probably cover Pneumocystis too. cc: Wayne Long MD DT: 15:35:06 TT: 16:25:00 Ref: [id number] - TID: [id number] [facility]
[2024-06-02] VITALS (12 sets, daily range): BP systolic 107–142; BP diastolic 73–86; PULSE 69–91; RESP 14–25; TEMP 36.1–36.5; O2SAT 84–98
[2024-06-02] MEDS: PIPER/TAZO 3.375 GM 3.375 GM/50 ML BAG IV ×3 (05:49→21:34)
[2024-06-02] MEDS: TRIMETHOPRIM/SULFA 160/800 DS TABLET 2 TAB PO ×4 (05:49→21:34)
[2024-06-02 05:53] LABS: Basophils % (Auto) 0 % (0-2.5); Eosinophils % (Auto) 0 % (0-10); Hematocrit 32.8 % (41.0-53.0); Hemoglobin 10.7 g/dL (13.5-16.0); Immature Granulocytes % (Auto) 1 % (0-0); Immature Granulocytes Auto 0.03 Thou/mm3 (0.00-0.00); Lymphocytes # (Auto) 0.5 Thou/mm3 (1.0-4.8); Lymphocytes % (Auto) 9 % (10-50); Mean Corpuscular HGB Conc 32.6 g/dl (31.0-37.0); Mean Corpuscular Hemoglobin 22.3 pg (25.0-35.0); Mean Corpuscular Volume 69 fL (80-100); Monocytes # (Auto) 0.1 Thou/mm3 (0.0-0.8); Monocytes % (Auto) 1 % (0-12); Neutrophils # (Auto) 4.9 Thou/mm3 (1.8-7.7); Neutrophils % (Auto) 89 % (37-80); Nucleated Red Blood Cell % 0 /100 WBC (0); Platelet Count 494 Thou/mm3 (140-440); RDW Standard Deviation 44.6 fL (35.1-43.9); Red Blood Count 4.79 Miln/mm3 (4.50-5.90); White Blood Count 5.5 Thou/mm3 (3.8-10.6)
[2024-06-02 06:21] LABS: Alanine Aminotransferase 242 U/L (10-49); Albumin, Serum 3.3 gm/dL (3.5-5.0); Albumin/Globulin Ratio 0.9 (1.2-2.2); Alkaline Phosphatase 56 U/L (46-116); Anion Gap 6 (7-16); Aspartate Amino Transferase 150 U/L (0-34); BUN/Creatinine Ratio 18 Ratio (12-20); Bilirubin,Total 0.3 mg/dL (0.3-1.2); Blood Urea Nitrogen 14 mg/dL (9-23); Calcium 8.3 mg/dL (8.3-10.6); Calcium (Corrected) 8.9 mg/dL (8.5-10.1); Carbon Dioxide 26.9 mMol/L (20.0-31.0); Chloride 103 mMol/L (98-107); Creatinine (Component) 0.8 mg/dL (0.6-1.3); Estimated Creatinine Clearance 128.2 mL/min (>60); Globulin 3.6 gm/dL (2.3-3.5); Glucose 107 mg/dL (74-106); Osmolality,Calculated 272 (275-295); Potassium 4.3 mMol/L (3.4-5.1); Sodium 136 mMol/L (136-145); Total Protein 6.9 gm/dL (5.7-8.2); eGFR > 60 See Note
[2024-06-02] MEDS: CALCIUM CARBONATE 600 MG TABLET PO (08:41)
[2024-06-02] MEDS: FLUCONAZOLE 100 MG TABLET 400 MG PO (08:41)
[2024-06-02] MEDS: PANTOPRAZOLE 40 MG TABLET PO (08:41)
[2024-06-02] MEDS: HEPARIN SOD INJ 5000 UNIT/ML VIAL SC ×2 (08:41→21:41)
[2024-06-02] MEDS: NICOTINE PATCH 14 MG/24 HR PATCH.TD24 TOP (08:42)
--- NOTE | 2024-06-02 15:12 | ESPR_ITS ---
<Statement entered by Rai Magallanes MD - 06/02/24 16:10> Senior Resident Attestation: I supervised/discussed management plan with resident physician Dr. Gaspar, and was involved in the care of this patient. I personally saw and examined the patient and discussed the assessment and plan with the entire medicine team, including my attending. I agree with the assessment and plan as documented. Patient's care was discussed with attending physician, Dr. Aram Magallanes MD PGY-3 Documentation for date of: 06/02/24 Subjective Subjective Interval history: Patient seen at bedside. No acute overnight events. Patient reports feeling better, shortness of breath improving. Had no fevers overnight, no subjective fevers and chills. Currently on HFNC at 30L/min and 50%, will start to wean off oxygen as tolerated and monitor saturation and clinical status. Patient evaluated by ID Dr Jones, now on Bactrim, Zosyn and Fluconazole. Tapering off Solumedrol, now on 60mg every 12hrs Pending HIIV confirmation tests and other studies. Labs reviewed, unremarkable. Exam Vital Signs Temp Pulse Resp BP Pulse Ox O2 Del Method O2 Flow Rate 97.6 F 91 25 H 122/78 92 L High Flow Nasal Cannula 35 06/02/24 12:00 06/02/24 14:32 06/02/24 14:32 06/02/24 12:00 06/02/24 14:32 06/02/24 12:00 06/02/24 14:32 FiO2 50 06/02/24 14:32 Narrative Exam General: Awake and in no acute distress. Conversational and non-toxic appearing. HEENT: Normocephalic, atraumatic, mucous membranes moist. Heart: Regular rate and rhythm, no murmurs. Lungs: Clear to auscultation with no wheezing or crackles. Coarse breath sounds bilaterally, patient currently on high flow oxygen. Abdomen: Soft, nondistended, nontender, positive bowel sounds. ?No guarding or rebound tenderness. Neurologic: Alert and oriented x3, no gross neurological deficit, and patient able to move all 4 extremities. Extremities: No edema. Skin: no rash, no ecchymoses Objective Labs 06/02/24 05:12 06/02/24 05:12 Labs: Laboratory Results - last 24 hr 05/31/24 06/02/24 05:05 05:12 WBC 5.5 RBC 4.79 Hgb 10.7 L Hct 32.8 L MCV 69 L MCH 22.3 L MCHC 32.6 RDW Std Deviation 44.6 H Plt Count 494 H D Neut % (Auto) 89 H Lymph % (Auto) 9 L [place] % (Auto) 1 Eos % (Auto) 0 Baso % (Auto) 0 Neut # (Auto) 4.9 Lymph # (Auto) 0.5 L [place] # (Auto) 0.1 Eos # (Auto) 0.0 Baso # (Auto) 0.0 Immature Gran # (Auto) 0.03 H Absolute Nucleated RBC 0.00 Immature Gran % 1 H Nucleated RBC % 0 Sodium 136 Potassium 4.3 Chloride 103 Carbon Dioxide 26.9 Anion Gap 6 L BUN 14 Creatinine 0.8 Estim Creat Clear Calc 128.2 eGFR > 60 BUN/Creatinine Ratio 18 Glucose 107 H Calculated Osmolality 272 L Calcium 8.3 Corrected Calcium 8.9 Total Bilirubin 0.3 AST 150 H ALT 242 H Alkaline Phosphatase 56 Total Protein 6.9 Albumin 3.3 L Globulin 3.6 H Albumin/Globulin Ratio 0.9 L TB Test (QFT) See Sep Rpt ABG Interpretation ABG results: 05/27/24 05/29/24 05/29/24 23:37 10:44 22:08 ABG pH 7.51 H 7.50 H 7.48 H ABG pCO2 28 L 32 32 ABG pO2 75 L 79 L 145 H D ABG HCO3 23 25 24 ABG O2 Saturation 96 95 98 ABG Base Excess 0 2 1 05/30/24 05/31/24 08:45 04:54 ABG pH 7.47 H 7.45 ABG pCO2 35 38 ABG pO2 86 D 82 L ABG HCO3 26 26 ABG O2 Saturation 97 96 ABG Base Excess 2 2 Quality Measures Quality Measures sepsis Current suspected stage: sepsis Possible source: pulmonary, GI tract/intra-abdominal, genitourinary and skin/soft tissue Blood cultures ordered: yes Antibiotic ordered: Yes Assessment & Plan Assessment Current Active Medications: Generic Name Dose Route Start Last Admin Trade Name Freq PRN Reason Stop Dose Admin Acetaminophen 1,000 mg 05/29/24 15:38 05/30/24 17:57 Acetaminophen 500 Mg Tablet PO 06/26/24 12:10 1,000 mg Q6H PRN Administration Pain 1-3 and Fever >101.5 Calcium Carbonate 600 mg 05/29/24 09:00 06/02/24 08:41 Calcium Carbonate 600 Mg Tablet PO 06/28/24 08:59 600 mg QDAY JUAN JOSE Administration Fluconazole 400 mg 05/29/24 09:00 06/02/24 08:41 Fluconazole 100 Mg Tablet PO 06/05/24 08:59 400 mg QDAY JUAN JOSE Administration Heparin Sodium (Porcine) 5,000 unit 05/27/24 21:00 06/02/24 08:41 Heparin Sod Inj 5000 Unit/Ml Vial SC 06/10/24 20:59 5,000 unit Q12H JUAN JOSE Administration Piperacillin/Tazobactam/Dextrose 3.375 gm in 50 mls @ 12.5 mls/hr 06/01/24 14:00 06/02/24 13:40 Zosyn IV 06/08/24 13:59 12.5 mls/hr Q8HR JUAN JOSE Administration Protocol Methylprednisolone Sodium Succinate 40 mg 06/01/24 21:00 06/02/24 08:41 Methylprednisolone Sod Succ 40 Mg Vial IVP 06/08/24 20:59 40 mg Q12HR JUAN JOSE Administration Nicotine 14 mg 05/28/24 09:00 06/02/24 08:42 Nicotine Patch 14 Mg/24 Hr Patch.Td24 TOP 06/27/24 08:59 14 mg QDAY JUAN JOSE Administration Ondansetron HCl 4 mg 05/29/24 21:51 05/29/24 23:00 Ondansetron Inj 2 Mg/Ml Inj 2 Ml IV 06/28/24 21:50 4 mg Q6HR PRN Administration NAUSEA OR VOMITING Protocol Pantoprazole Sodium 40 mg 05/31/24 19:30 06/02/24 08:41 Pantoprazole 40 Mg Tablet PO 06/30/24 19:29 40 mg QDAY JUAN JOSE Administration Promethazine HCl/Dextromethorphan 5 ml 05/28/24 16:56 05/30/24 02:34 Promethazine/Dm Syrup 5 Ml Dose PO 06/27/24 16:55 5 ml Q4HR PRN Administration COUGH Protocol Sennosides 1 tab 05/27/24 12:11 Senna Tablet PO 06/26/24 12:10 QDAY PRN constipation Protocol Trimethoprim/Sulfamethoxazole 2 tab 06/01/24 17:00 06/02/24 11:14 Trimethoprim/Sulfa 160/800 Ds Tablet PO 06/08/24 16:59 2 tab QID [facility] Administration Plan Summary: Mr. Owen is a 39-year-old male with no significant past medical history who presented to [facility] with a chief complaint of shortness of breath and cough. Patient admitted for acute hypoxic respiratory failure secondary to pneumonia. # Acute hypoxic respiratory failure secondary to # Sepsis secondary to # Bilateral pneumonia # Leukocytosis # ARDS with [place] criteria met,resolving -Patient presented with shortness of breath in the ED, was started on oxygen via nasal cannula. Patient reports having fever myalgia and chills for about 3 weeks with cough which progressively have worsened. -Patient met SIRS criteria 3/4, P133, RR 25, temp 103.2 on presentation, chest x-ray in ED significant for bilateral pneumonia. WBC count 11.8, neutrophil 84%. Pro-Jayy elevated 0.61. -Patient tested for influenza A and B, COVID rapid test negative in ED. fibrinogen elevated in ED 596 -Curb 65 score 1, low risk. PSI/port score 88 points, risk class III 0.92-2.8% -Patient was given ceftriaxone and azithromycin in ED. -Urine bacteria rare, leukocyte esterase negative, nitrite negative, patient asymptomatic low suspicion of UTI -Patient was given about 3 L fluid in ED -CT chest showed diffuse severe bilateral pneumonia -Hepatitis panel nonreactive, COVID, RSV negative -Group A rapid strep negative, cocci IgM, IgG negative -MRSA nasal screen negative, sputum culture shows mixed oral kylie urine culture negative. -Patient upgraded to ICU on 05/30 due to increased work of breathing and close observation with possible intubation, patient was started on steroids, Zosyn, azithromycin and doxycycline. Fluconazole was continued. -Suspicion of vasculitis by ICU team, ordered QuantiFERON test, rheumatoid factor, DANIEL screen, ANCA screen, antiproteinase 3, antimyeloperoxidase, complement C3, complement C4 C, lymphocyte subset panel, CD4 percentage, absolute CD4 count, CD4/CD8 ratio, percentage CD8 cell, absolute CD8 count. -Patient downgraded on 06/01 due to improvement in work of breathing. -Repeat cocci IgM negative, hepatitis panel nonreactive, H influenza type B antigen, Neisseria meningitis antigen, repeat COVID, urine strep a antigen, urine strep pneumonia antigen negative. -Patient's initial blood culture negative, urine culture negative, Gram stain and sputum culture negative, MRSA nares negative. 06/02/2024- Patient reports feeling better, shortness of breath improving. Had no fevers overnight, no subjective fevers and chills. Currently on HFNC at 30L/min and 50%, will start to wean off oxygen as tolerated and monitor saturation and clinical status. Patient evaluated by MIREYA Jones, now on Bactrim, Zosyn and Fluconazole. Pending HIIV confirmation tests and other studies. Labs reviewed, unremarkable. Plan: -Continue Zosyn, Bactrim and Fluconazole -Continue Solu-Medrol 60 mg IV push every 12 hours -Follow repeat blood culture and urine culture -Supplemental oxygen as needed -Pending urine Legionella test -Pending HIV confirmatory test -Pending CD4/CD8 ratio -Continue to monitor CBC -Consulted infectious disease, appreciate recommendations -Repeat chest x-ray # Mild hyponatremia-resolved -Suspicion of Legionella pneumonia due to hyponatremia along with bilateral pneumonia. Sodium on admission 128. -Possible hyponatremia in setting of pneumonia, lung disease -Follow Legionella urine antigen -Monitor CMP in a.m. # Microcytic hypochromic anemia -Hemoglobin 12.1, MCV 69, MCH 22 on admission -Iron panel shows iron 17, TIBC 262, iron saturation 6, unsaturated iron binding 245 -Peripheral blood film confirms microcytic hypochromic anemia with target cells -Monitor CBC in a.m. # Transaminitis -Possible in setting of sepsis, will continue to monitor. -Possible in setting of fluconazole -Follow CMP in a.m. # Electrolyte imbalance # Hypophosphatemia # Hypocalcemia -Continue to monitor electrolytes -Continue calcium carbonate DVT prophylaxis: Heparin twice daily GI prophylaxis: Protonix PO Diet: Cardiac Lines: Peripheral IV Code status: Full code Physical therapy: Not ordered/indicated Case was discussed with senior resident Dr Magallanes PGY-3 and attending physician, Dr Aram Gaspar MD PGY-1 Attending Provider Attestation/Addendum I have discussed and was present for the essential components of the history, physical examination, diagnosis, and treatment plan with the resident. I agree with the patient's care as documented by the resident and amended herein by me. Maury Chiu DO. Patient seen and evaluated this AM. Patient states he feels better today however was sitting at the edge of the bed and appeared to be in mild respiratory distress. Vital signs stable, patient afebrile overnight, in the morning patient remained on high flow nasal cannula at 30/55, labs largely unremarkable, patient will be continued on fluconazole, Bactrim and Zosyn at this time. Will also titrate down Solu-Medrol as the patient tolerates, likely 40 daily tomorrow. Several serologies were ordered by infectious disease which we will follow-up on, appreciate recommendations from ID and pulmonology. Although this document has been carefully reviewed, there may still be some phonetic and other typographical errors. These errors are purely grammatical due to imperfections in the software program and should not be construed in any way to compromise the substance of the patient's medical care during this visit.
[2024-06-02 17:49] LABS: (1-3)-B-D-glucan* >500 pg/mL
[2024-06-02 19:47] LABS: CD4 Percentage 21 % (30-61); CD4, Absolute 116 cells/uL (490-1740); CD4/CD8 Ratio 0.33 (0.86-5.00); CD8 Percentage 66 % (12-42); CD8, Absolute 356 cells/uL (180-1170)
[2024-06-02] MEDS: PANTOPRAZOLE 20 MG TABLET PO (21:34)
[2024-06-03] VITALS (9 sets, daily range): BP systolic 95–130; BP diastolic 49–75; PULSE 67–82; RESP 17–27; TEMP 36.3–36.9; O2SAT 90–98; BMI 29.5
[2024-06-03] MEDS: PIPER/TAZO 3.375 GM 3.375 GM/50 ML BAG IV ×3 (05:31→21:13)
[2024-06-03] MEDS: TRIMETHOPRIM/SULFA 160/800 DS TABLET 2 TAB PO ×4 (05:31→21:14)
[2024-06-03 05:58] LABS: Basophils % (Auto) 0 % (0-2.5); Eosinophils % (Auto) 0 % (0-10); Hemoglobin 11.8 g/dL (13.5-16.0); Immature Granulocytes % (Auto) 2 % (0-0); Immature Granulocytes Auto 0.12 Thou/mm3 (0.00-0.00); Lymphocytes # (Auto) 0.6 Thou/mm3 (1.0-4.8); Lymphocytes % (Auto) 8 % (10-50); Mean Corpuscular HGB Conc 32.8 g/dl (31.0-37.0); Mean Corpuscular Volume 67 fL (80-100); Monocytes # (Auto) 0.1 Thou/mm3 (0.0-0.8); Monocytes % (Auto) 1 % (0-12); Neutrophils # (Auto) 6.7 Thou/mm3 (1.8-7.7); Neutrophils % (Auto) 89 % (37-80); Nucleated Red Blood Cell # 0.04 Thou/mm3 (0.00-0.00); Nucleated Red Blood Cell % 1 /100 WBC (0); Platelet Count 566 Thou/mm3 (140-440); RDW Standard Deviation 42.5 fL (35.1-43.9); Red Blood Count 5.37 Miln/mm3 (4.50-5.90); White Blood Count 7.6 Thou/mm3 (3.8-10.6)
[2024-06-03 06:16] LABS: Alanine Aminotransferase 201 U/L (10-49); Albumin, Serum 3.6 gm/dL (3.5-5.0); Albumin/Globulin Ratio 0.9 (1.2-2.2); Alkaline Phosphatase 65 U/L (46-116); Anion Gap 4 (7-16); Aspartate Amino Transferase 76 U/L (0-34); BUN/Creatinine Ratio 14 Ratio (12-20); Bilirubin,Total 0.3 mg/dL (0.3-1.2); Blood Urea Nitrogen 13 mg/dL (9-23); Calcium 8.7 mg/dL (8.3-10.6); Carbon Dioxide 25.7 mMol/L (20.0-31.0); Chloride 101 mMol/L (98-107); Creatinine (Component) 0.9 mg/dL (0.6-1.3); Estimated Creatinine Clearance 113.9 mL/min (>60); Globulin 3.8 gm/dL (2.3-3.5); Glucose 91 mg/dL (74-106); Magnesium 2.3 mg/dL (1.6-2.6); Osmolality,Calculated 262 (275-295); Phosphorous 4.4 mg/dL (2.4-5.1); Potassium 5.1 mMol/L (3.4-5.1); Sodium 131 mMol/L (136-145); Total Protein 7.4 gm/dL (5.7-8.2); eGFR > 60 See Note
[2024-06-03 06:27] LABS: Interpretation POSITIVE
[2024-06-03 06:28] LABS: Legionella Ag, EIA, Urine* NOT DETECTED
[2024-06-03 06:28] LABS: Lymphocytes, Absolute 542 cells/uL (850-3900)
[2024-06-03] MEDS: FLUCONAZOLE 100 MG TABLET 400 MG PO (08:32)
[2024-06-03] MEDS: HEPARIN SOD INJ 5000 UNIT/ML VIAL SC ×2 (08:32→21:14)
[2024-06-03] MEDS: CALCIUM CARBONATE 600 MG TABLET PO ×2 (08:32→23:20)
[2024-06-03] MEDS: PANTOPRAZOLE 40 MG TABLET PO (08:32)
--- NOTE | 2024-06-03 09:24 | PC.SS ---
Follow up note: On IV antibiotic. wean off oxy mask. Pending Dr. Mcdaniels's recommendation. Pt will return home upon dc.
--- NOTE | 2024-06-03 10:18 | ESPR_ITS ---
Subjective Subjective Interval history: still waiting on confirmation. O2 need down on rx for pjp as as well as staph pending more data cd4 is lower in any acute illness, so unless he is hiv pos, it is of uncertain value. in case crypto antigen pos, will leave on flucon for now. 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 Exam Vital Signs Temp Pulse Resp BP Pulse Ox O2 Del Method O2 Flow Rate 97.8 F 81 27 H 104/65 92 L Oxy Mask 15 06/03/24 08:00 06/03/24 08:00 06/03/24 08:00 06/03/24 08:00 06/03/24 08:00 06/03/24 08:00 06/03/24 08:00 FiO2 50 06/03/24 04:00 Narrative Exam on less O2. gf by his side. no data from [employer] noted. so have to wait on hiv confirmation Objective - Internal Medicine Labs 06/03/24 04:35 06/03/24 04:35 Labs: Laboratory Results - last 24 hr 05/27/24 05/31/24 06/01/24 23:45 07:58 05:00 WBC RBC Hgb Hct MCV MCH MCHC RDW Std Deviation Plt Count Neut % (Auto) Lymph % (Auto) [place] % (Auto) Eos % (Auto) Baso % (Auto) Neut # (Auto) Lymph # (Auto) [place] # (Auto) Eos # (Auto) Baso # (Auto) Immature Gran # (Auto) Absolute Nucleated RBC Immature Gran % Nucleated RBC % Total Abs Lymphocytes 542 L Sodium Potassium Chloride Carbon Dioxide Anion Gap BUN Creatinine Estim Creat Clear Calc eGFR BUN/Creatinine Ratio Glucose Calculated Osmolality Calcium Corrected Calcium Phosphorus Magnesium Total Bilirubin AST ALT Alkaline Phosphatase Total Protein Albumin Globulin Albumin/Globulin Ratio Lymphocyte Subset Cmmnt TNP % CD4 Cells 21 L Absolute CD4 Count 116 L CD4/CD8 Ratio 0.33 L % CD8 Cells 66 H Absolute CD8 Count 356 Urine Legionella Ag NOT DETECTED Beta-(1,3)-D-Glucan >500 H B-(1,3)-D-Glucan Intrp POSITIVE A 06/03/24 04:35 WBC 7.6 RBC 5.37 Hgb 11.8 L Hct 36.0 L MCV 67 L MCH 22.0 L MCHC 32.8 RDW Std Deviation 42.5 Plt Count 566 H D Neut % (Auto) 89 H Lymph % (Auto) 8 L [place] % (Auto) 1 Eos % (Auto) 0 Baso % (Auto) 0 Neut # (Auto) 6.7 Lymph # (Auto) 0.6 L [place] # (Auto) 0.1 Eos # (Auto) 0.0 Baso # (Auto) 0.0 Immature Gran # (Auto) 0.12 H Absolute Nucleated RBC 0.04 H Immature Gran % 2 H Nucleated RBC % 1 H Total Abs Lymphocytes Sodium 131 L Potassium 5.1 D Chloride 101 Carbon Dioxide 25.7 Anion Gap 4 L BUN 13 Creatinine 0.9 Estim Creat Clear Calc 113.9 eGFR > 60 BUN/Creatinine Ratio 14 Glucose 91 Calculated Osmolality 262 L Calcium 8.7 Corrected Calcium 9.0 Phosphorus 4.4 Magnesium 2.3 Total Bilirubin 0.3 AST 76 H ALT 201 H Alkaline Phosphatase 65 Total Protein 7.4 Albumin 3.6 Globulin 3.8 H Albumin/Globulin Ratio 0.9 L Lymphocyte Subset Cmmnt % CD4 Cells Absolute CD4 Count CD4/CD8 Ratio % CD8 Cells Absolute CD8 Count Urine Legionella Ag Beta-(1,3)-D-Glucan B-(1,3)-D-Glucan Intrp ABG Interpretation ABG results: 05/27/24 05/29/24 05/29/24 23:37 10:44 22:08 ABG pH 7.51 H 7.50 H 7.48 H ABG pCO2 28 L 32 32 ABG pO2 75 L 79 L 145 H D ABG HCO3 23 25 24 ABG O2 Saturation 96 95 98 ABG Base Excess 0 2 1 05/30/24 05/31/24 08:45 04:54 ABG pH 7.47 H 7.45 ABG pCO2 35 38 ABG pO2 86 D 82 L ABG HCO3 26 26 ABG O2 Saturation 97 96 ABG Base Excess 2 2 Assessment & Plan A&P Narrative pneumonia. cocci neg. procal not neg. staph vs pjp possible hiv. awaiting confirmation. unless hiv is neg at send out, continue bactrim at pjp doses and f/u fMonday. usual dose of bactrim for pjp is 15-20 mg/kg/day of the tmp component. can be po if taking po. bactrim also good for staph(MRSA) as well as pjp. ordered a few more labs. tried not to repeat but may have. if he has hiv, gf needs to be tested. if not, then no testing for her needed. will see again thursday. Time Spent With Patient Time: Total time spent is greater than 50% in coordination of care (as documented) at patient's floor/unit and/or counseling patient:
--- NOTE | 2024-06-03 12:38 | ESPR_ITS ---
<Statement entered by Rai Magallanes MD - 06/03/24 15:59> Senior Resident Attestation: I supervised/discussed management plan with resident physician Dr. Welsh, and was involved in the care of this patient. I personally saw and examined the patient and discussed the assessment and plan with the entire medicine team, including my attending. I agree with the assessment and plan as documented. Patient's care was discussed with attending physician, Dr. Aram Magallanes MD PGY-3 Documentation for date of: 06/03/24 Subjective Subjective Interval history: Patient seen at bedside. Patient saturating well on 15 L via oxy mask, off high flow. Beta-1,3D glucan more than 500, interpretation positive %CD4 cells 21, absolute CD4 cell count 116, CD/CD8 ratio 0.33, %CD8 cells 66. Pending HIV confirmatory test. Will continue to wean off the patient off oxygen. Will continue antibiotics per ID recommendations Exam Vital Signs Temp Pulse Resp BP Pulse Ox O2 Del Method O2 Flow Rate 97.3 F 76 26 H 105/69 98 Oxy Mask 15 06/03/24 12:00 06/03/24 12:00 06/03/24 12:00 06/03/24 12:00 06/03/24 12:00 06/03/24 12:00 06/03/24 12:00 FiO2 50 06/03/24 04:00 Narrative Exam General: Awake and in no acute distress. Conversational and non-toxic appearing. HEENT: Normocephalic, atraumatic, mucous membranes moist. Heart: Regular rate and rhythm, no murmurs. Lungs: Clear to auscultation with no wheezing or crackles. Coarse breath sounds bilaterally, patient currently on Oxy Mask. Abdomen: Soft, nondistended, nontender, positive bowel sounds. ?No guarding or rebound tenderness. Neurologic: Alert and oriented x3, no gross neurological deficit, and patient able to move all 4 extremities. Extremities: No edema. Skin: no rash, no ecchymoses Objective Labs 06/04/24 02:39 06/04/24 16:40 Labs: Laboratory Results - last 24 hr 05/27/24 05/31/24 06/01/24 23:45 07:58 05:00 WBC RBC Hgb Hct MCV MCH MCHC RDW Std Deviation Plt Count Neut % (Auto) Lymph % (Auto) Alfalfa % (Auto) Eos % (Auto) Baso % (Auto) Neut # (Auto) Lymph # (Auto) Alfalfa # (Auto) Eos # (Auto) Baso # (Auto) Immature Gran # (Auto) Absolute Nucleated RBC Immature Gran % Nucleated RBC % Total Abs Lymphocytes 542 L Sodium Potassium Chloride Carbon Dioxide Anion Gap BUN Creatinine Estim Creat Clear Calc eGFR BUN/Creatinine Ratio Glucose Calculated Osmolality Calcium Corrected Calcium Phosphorus Magnesium Total Bilirubin AST ALT Alkaline Phosphatase Total Protein Albumin Globulin Albumin/Globulin Ratio Lymphocyte Subset Cmmnt TNP % CD4 Cells 21 L Absolute CD4 Count 116 L CD4/CD8 Ratio 0.33 L % CD8 Cells 66 H Absolute CD8 Count 356 Urine Legionella Ag NOT DETECTED Beta-(1,3)-D-Glucan >500 H B-(1,3)-D-Glucan Intrp POSITIVE A 06/03/24 04:35 WBC 7.6 RBC 5.37 Hgb 11.8 L Hct 36.0 L MCV 67 L MCH 22.0 L MCHC 32.8 RDW Std Deviation 42.5 Plt Count 566 H D Neut % (Auto) 89 H Lymph % (Auto) 8 L Alfalfa % (Auto) 1 Eos % (Auto) 0 Baso % (Auto) 0 Neut # (Auto) 6.7 Lymph # (Auto) 0.6 L Alfalfa # (Auto) 0.1 Eos # (Auto) 0.0 Baso # (Auto) 0.0 Immature Gran # (Auto) 0.12 H Absolute Nucleated RBC 0.04 H Immature Gran % 2 H Nucleated RBC % 1 H Total Abs Lymphocytes Sodium 131 L Potassium 5.1 D Chloride 101 Carbon Dioxide 25.7 Anion Gap 4 L BUN 13 Creatinine 0.9 Estim Creat Clear Calc 113.9 eGFR > 60 BUN/Creatinine Ratio 14 Glucose 91 Calculated Osmolality 262 L Calcium 8.7 Corrected Calcium 9.0 Phosphorus 4.4 Magnesium 2.3 Total Bilirubin 0.3 AST 76 H ALT 201 H Alkaline Phosphatase 65 Total Protein 7.4 Albumin 3.6 Globulin 3.8 H Albumin/Globulin Ratio 0.9 L Lymphocyte Subset Cmmnt % CD4 Cells Absolute CD4 Count CD4/CD8 Ratio % CD8 Cells Absolute CD8 Count Urine Legionella Ag Beta-(1,3)-D-Glucan B-(1,3)-D-Glucan Intrp ABG Interpretation ABG results: 1105/29/24 05/29/24 23:37 10:44 22:08 ABG pH 7.51 H 7.50 H 7.48 H ABG pCO2 28 L 32 32 ABG pO2 75 L 79 L 145 H D ABG HCO3 23 25 24 ABG O2 Saturation 96 95 98 ABG Base Excess 0 2 1 05/30/24 05/31/24 08:45 04:54 ABG pH 7.47 H 7.45 ABG pCO2 35 38 ABG pO2 86 D 82 L ABG HCO3 26 26 ABG O2 Saturation 97 96 ABG Base Excess 2 2 Quality Measures Quality Measures sepsis Current suspected stage: sepsis Possible source: pulmonary, GI tract/intra-abdominal, genitourinary and skin/soft tissue Blood cultures ordered: yes Antibiotic ordered: Yes Assessment & Plan Assessment Current Active Medications: Generic Name Dose Route Start Last Admin Trade Name Freq PRN Reason Stop Dose Admin Acetaminophen 1,000 mg 05/29/24 15:38 05/30/24 17:57 Acetaminophen 500 Mg Tablet PO 06/26/24 12:10 1,000 mg Q6H PRN Administration Pain 1-3 and Fever >101.5 Calcium Carbonate 600 mg 05/29/24 09:00 06/03/24 08:32 Calcium Carbonate 600 Mg Tablet PO 06/28/24 08:59 600 mg QDAY JUAN JOSE Administration Fluconazole 400 mg 05/29/24 09:00 06/03/24 08:32 Fluconazole 100 Mg Tablet PO 06/05/24 08:59 400 mg QDAY JUAN JOSE Administration Heparin Sodium (Porcine) 5,000 unit 05/27/24 21:00 06/03/24 08:32 Heparin Sod Inj 5000 Unit/Ml Vial SC 06/10/24 20:59 5,000 unit Q12H JUAN JOSE Administration Piperacillin/Tazobactam/Dextrose 3.375 gm in 50 mls @ 12.5 mls/hr 06/01/24 14:00 06/03/24 05:31 Zosyn IV 06/08/24 13:59 12.5 mls/hr Q8HR JUAN JOSE Administration Protocol Methylprednisolone Sodium Succinate 40 mg 06/01/24 21:00 06/03/24 08:31 Methylprednisolone Sod Succ 40 Mg Vial IVP 06/08/24 20:59 40 mg Q12HR JUAN JOSE Administration Nicotine 14 mg 05/28/24 09:00 06/03/24 08:31 Nicotine Patch 14 Mg/24 Hr Patch.Td24 TOP 06/27/24 08:59 Not Given QDAY JUAN JOSE Ondansetron HCl 4 mg 05/29/24 21:51 05/29/24 23:00 Ondansetron Inj 2 Mg/Ml Inj 2 Ml IV 06/28/24 21:50 4 mg Q6HR PRN Administration NAUSEA OR VOMITING Protocol Pantoprazole Sodium 40 mg 05/31/24 19:30 06/03/24 08:32 Pantoprazole 40 Mg Tablet PO 06/30/24 19:29 40 mg QDAY JUAN JOSE Administration Promethazine HCl/Dextromethorphan 5 ml 05/28/24 16:56 05/30/24 02:34 Promethazine/Dm Syrup 5 Ml Dose PO 06/27/24 16:55 5 ml Q4HR PRN Administration COUGH Protocol Sennosides 1 tab 05/27/24 12:11 Senna Tablet PO 06/26/24 12:10 QDAY PRN constipation Protocol Trimethoprim/Sulfamethoxazole 2 tab 06/01/24 17:00 06/03/24 11:41 Trimethoprim/Sulfa 160/800 Ds Tablet PO 06/08/24 16:59 2 tab QID JUAN JOSE Administration Plan Summary: Mr. Owen is a 39-year-old male with no significant past medical history who presented to [facility] with a chief complaint of shortness of breath and cough. Patient admitted for acute hypoxic respiratory failure secondary to pneumonia. # Acute hypoxic respiratory failure secondary to # Sepsis secondary to # Bilateral pneumonia #?High suspicion of pneumocystis jirvocii pneumonia with underlying HIV # Leukocytosis # ARDS with [place] criteria met,resolving -Patient presented with shortness of breath in the ED, was started on oxygen via nasal cannula. Patient reports having fever myalgia and chills for about 3 weeks with cough which progressively have worsened. -Patient met SIRS criteria 3/4, P133, RR 25, temp 103.2 on presentation, chest x-ray in ED significant for bilateral pneumonia. WBC count 11.8, neutrophil 84%. Pro-Jayy elevated 0.61. -Patient tested for influenza A and B, COVID rapid test negative in ED. fibrinogen elevated in ED 596 -Curb 65 score 1, low risk. PSI/port score 88 points, risk class III 0.92-2.8% -Patient was given ceftriaxone and azithromycin in ED. -Urine bacteria rare, leukocyte esterase negative, nitrite negative, patient asymptomatic low suspicion of UTI -Patient was given about 3 L fluid in ED -CT chest showed diffuse severe bilateral pneumonia -Hepatitis panel nonreactive, COVID, RSV negative -Group A rapid strep negative, cocci IgM, IgG negative -MRSA nasal screen negative, sputum culture shows mixed oral kylie urine culture negative. -Patient upgraded to ICU on 05/30 due to increased work of breathing and close observation with possible intubation, patient was started on steroids, Zosyn, azithromycin and doxycycline. Fluconazole was continued. -Suspicion of vasculitis by ICU team, ordered QuantiFERON test, rheumatoid factor, DANIEL screen, ANCA screen, antiproteinase 3, antimyeloperoxidase, complement C3, complement C4 C, lymphocyte subset panel, CD4 percentage, absolute CD4 count, CD4/CD8 ratio, percentage CD8 cell, absolute CD8 count. -Patient downgraded on 06/01 due to improvement in work of breathing. -Repeat cocci IgM negative, hepatitis panel nonreactive, H influenza type B antigen, Neisseria meningitis antigen, repeat COVID, urine strep a antigen, urine strep pneumonia antigen negative. Urine Legionella negative. -Patient's initial blood culture negative, urine culture negative, Gram stain and sputum culture negative, MRSA nares negative. -Beta-1,3D glucan more than 500, interpretation positive -%CD4 cells 21, absolute CD4 cell count 116, CD/CD8 ratio 0.33, %CD8 cells 66. Plan: -Continue Zosyn, Bactrim and Fluconazole per ID recommendations -Continue Solu-Medrol 60 mg IV push every 12 hours -Follow repeat blood culture and urine culture -Supplemental oxygen as needed -Pending HIV confirmatory test -Continue to monitor CBC -Consulted infectious disease, appreciate recommendations -Repeat chest x-ray # Mild hyponatremia-resolved -Suspicion of Legionella pneumonia due to hyponatremia along with bilateral pneumonia. Sodium on admission 128. -Possible hyponatremia in setting of pneumonia, lung disease -Follow Legionella urine antigen -Monitor CMP in a.m. # Microcytic hypochromic anemia -Hemoglobin 12.1, MCV 69, MCH 22 on admission -Iron panel shows iron 17, TIBC 262, iron saturation 6, unsaturated iron binding 245 -Peripheral blood film confirms microcytic hypochromic anemia with target cells -Monitor CBC in a.m. # Transaminitis -Possible in setting of sepsis, will continue to monitor. -Possible in setting of fluconazole -Follow CMP in a.m. # Electrolyte imbalance # Hypophosphatemia # Hypocalcemia -Continue to monitor electrolytes -Continue calcium carbonate DVT prophylaxis: Heparin twice daily GI prophylaxis: Protonix PO Diet: Cardiac Lines: Peripheral IV Code status: Full code Physical therapy: Not ordered/indicated Case was discussed with senior resident Dr Magallanes PGY-3 and attending physician, Dr Aram Welsh PGY-1 Attending Provider Attestation/Addendum I have discussed and was present for the essential components of the history, physical examination, diagnosis, and treatment plan with the resident. I agree with the patient's care as documented by the resident and amended herein by me. aMury Chiu DO. Although this document has been carefully reviewed, there may still be some phonetic and other typographical errors. These errors are purely grammatical due to imperfections in the software program and should not be construed in any way to compromise the substance of the patient's medical care during this visit.
[2024-06-04] VITALS (21 sets, daily range): BP systolic 93–117; BP diastolic 53–79; PULSE 72–103; RESP 16–31; TEMP 36.2–36.7; O2SAT 88–99
--- NOTE | 2024-06-04 00:01 | XR_ITS ---
Examination: AP chest single view Technique one AP portable upright chest single view Exam date and time: June 04, 2024 at 0059 hrs. Comparison June 01, 2024 Indications: SOB this week, severe diffuse bilateral pneumonia on imaging examinations including CT chest May 22, 2024 Findings: Severe diffuse bilateral pneumonia again noted No significant cardiac enlargement No pneumothorax Mild osteopenia Impression: No significant improvement in extensive bilateral pneumonia ARDS pattern
[2024-06-04] MEDS: ALBUTEROL/IPRATROPIUM (Duoneb) RT SOL 3 ML NEBU INH ×7 (00:10→22:45)
--- NOTE | 2024-06-04 00:49 | PC.NURSE ---
Notified Laury, patient on 15LNC with slight increase of work of breathing and satting 92-93%. Patient has been on 15L all day. MD ordered breathing tx and repeat chest XR. RT aware and patient put on high flow. After high flow patient patient says he feels like he is breathing better and does not require much energy. MD aware. awaiting repeat chest xray
[2024-06-04 02:16] LABS: Allen Test Performed/OK; Base Excess 1 (-3-3); HCO3 25 mEq/L (20-26); O2 Saturation 98 % (91-98); PCO2 36 mmHg (32.0-48.0); PO2 139 mmHg (83-108); Puncture Site Right Radial; pH, Arterial 7.45 (7.35-7.45)
[2024-06-04 02:17] LABS: Inspired Oxygen, FIO2 100 %
--- NOTE | 2024-06-04 02:27 | PD.RESEVENT ---
Documentation for date of: 06/04/24 Event Note Event Note: Rapid Response Rapid Response called for SpO2 of 70% while ambulating. Patient protecting airway, no accessory muscle use, and pulses intact. Cxr ordered, Duonebs X 1, high flow started. Additional interventions: ABG and D-Dimer Continue to monitor vitals and SpO2.
--- NOTE | 2024-06-04 02:32 | PC.NURSE ---
0158- BRAILLE OPERATOR called. patient satting in 70% on HF 75% and 25L. refer to rapid sheet for vitals. Patient put on 100% at 40L and started satting above 95%. Patient states improvement in breathing, but still complaining of hiccups, which seem to be getting more aggressive. Schaeffer and shetab at bedside and aware. D-dimer and ABG order. Patient appears to be stable and is in no distress. Continuing to monitor patient.
[2024-06-04 03:07] LABS: Magnesium 2.3 mg/dL (1.6-2.6); Phosphorous 4.6 mg/dL (2.4-5.1)
[2024-06-04 03:10] LABS: D-Dimer 962 ng/mL (<600)
[2024-06-04] MEDS: TRIMETHOPRIM/SULFA 160/800 DS TABLET 2 TAB PO ×4 (05:50→21:06)
[2024-06-04] MEDS: PIPER/TAZO 3.375 GM 3.375 GM/50 ML BAG IV ×3 (05:50→21:06)
--- NOTE | 2024-06-04 06:39 | PC.NURSE ---
notified Laury, there was no CBC or BMP scheduled for this morning. notified of D-dimer results
[2024-06-04 08:18] LABS: Basophils % (Auto) 0 % (0-2.5); Eosinophils % (Auto) 0 % (0-10); Hematocrit 37.8 % (41.0-53.0); Hemoglobin 12.3 g/dL (13.5-16.0); Immature Granulocytes % (Auto) 2 % (0-0); Immature Granulocytes Auto 0.22 Thou/mm3 (0.00-0.00); Lymphocytes # (Auto) 0.7 Thou/mm3 (1.0-4.8); Lymphocytes % (Auto) 5 % (10-50); Mean Corpuscular HGB Conc 32.5 g/dl (31.0-37.0); Mean Corpuscular Hemoglobin 22.1 pg (25.0-35.0); Mean Corpuscular Volume 68 fL (80-100); Monocytes # (Auto) 0.2 Thou/mm3 (0.0-0.8); Monocytes % (Auto) 1 % (0-12); Neutrophils # (Auto) 11.1 Thou/mm3 (1.8-7.7); Neutrophils % (Auto) 91 % (37-80); Nucleated Red Blood Cell # 0.06 Thou/mm3 (0.00-0.00); Nucleated Red Blood Cell % 1 /100 WBC (0); Platelet Count 564 Thou/mm3 (140-440); RDW Standard Deviation 43.5 fL (35.1-43.9); Red Blood Count 5.57 Miln/mm3 (4.50-5.90); White Blood Count 12.2 Thou/mm3 (3.8-10.6)
[2024-06-04] MEDS: FLUCONAZOLE 100 MG TABLET 400 MG PO (08:32)
[2024-06-04] MEDS: HEPARIN SOD INJ 5000 UNIT/ML VIAL SC ×2 (08:33→21:06)
[2024-06-04] MEDS: PANTOPRAZOLE 40 MG TABLET PO (08:33)
[2024-06-04] MEDS: CALCIUM CARBONATE 600 MG TABLET PO (08:33)
[2024-06-04 08:48] LABS: Anion Gap 6 (7-16); BUN/Creatinine Ratio 15 Ratio (12-20); Blood Urea Nitrogen 15 mg/dL (9-23); Calcium 9.3 mg/dL (8.3-10.6); Carbon Dioxide 23.5 mMol/L (20.0-31.0); Chloride 99 mMol/L (98-107); Estimated Creatinine Clearance 102.6 mL/min (>60); Glucose 107 mg/dL (74-106); Osmolality,Calculated 257 (275-295); Sodium 128 mMol/L (136-145); eGFR > 60 See Note
--- NOTE | 2024-06-04 09:01 | EKG_ITS ---
[facility] Test Date: 2024-06-04 Pat Name: TONI RAMOS [facility] Asset Protection Assistant: TAYLER : 1985 Requested By: Yann Rosales Order Number: [id number] Reading MD: Yann Rosales Measurements Intervals Vass Rate: 77 P: 62 VT: 157 QRS: 56 QRSD: 86 T: 116 QT: 366 QTc: 416 Interpretive Statements SINUS RHYTHM NONSPECIFIC T-WAVE ABNORMALITY Compared to ECG 05/30/2024 12:30:47 T-wave abnormality now present Sinus tachycardia no longer present /store/S0/[id number]/[id number].pdf
[2024-06-04 10:08] LABS: Misc Send Out* See Sep Rpt
[2024-06-04 10:55] LABS: Alanine Aminotransferase 125 U/L (10-49); Albumin, Serum 3.9 gm/dL (3.5-5.0); Alkaline Phosphatase 76 U/L (46-116); Anion Gap 4 (7-16); Aspartate Amino Transferase 44 U/L (0-34); BUN/Creatinine Ratio 15 Ratio (12-20); Bilirubin,Total 0.3 mg/dL (0.3-1.2); Blood Urea Nitrogen 15 mg/dL (9-23); Calcium 9.4 mg/dL (8.3-10.6); Calcium (Corrected) 9.5 mg/dL (8.5-10.1); Carbon Dioxide 24.2 mMol/L (20.0-31.0); Chloride 99 mMol/L (98-107); Estimated Creatinine Clearance 102.6 mL/min (>60); Globulin 3.9 gm/dL (2.3-3.5); Glucose 86 mg/dL (74-106); Osmolality,Calculated 255 (275-295); Potassium 5.5 mMol/L (3.4-5.1); Sodium 127 mMol/L (136-145); Total Protein 7.8 gm/dL (5.7-8.2); eGFR > 60 See Note
[2024-06-04] MEDS: SOD POLYSTYRENE SULFON SUSP 15 GM/60 ML BTL PO (11:51)
--- NOTE | 2024-06-04 12:14 | ESPR_ITS ---
<Statement entered by Rai Magallanes MD - 06/04/24 17:56> Senior Resident Attestation: I supervised/discussed management plan with resident physician Dr. Welsh, and was involved in the care of this patient. I personally saw and examined the patient and discussed the assessment and plan with the entire medicine team, including my attending. I agree with the assessment and plan as documented. Patient's care was discussed with attending physician, Dr. Aram Magallanes MD PGY-3 Documentation for date of: 06/04/24 Subjective Subjective Interval history: Patient seen at bedside. Patient complains he was unable to sleep yesterday night and had shortness of breath. Patient had a rapid response last night was desaturating in the 70s on exertion, patient's pulse ox. low at rest, started on high flow nasal cannula overnight. ABG obtained unremarkable, D-dimer was elevated, Patient's potassium was elevated today, patient was given Kayexalate. Will check potassium in p.m. Will continue to monitor patient. Exam Vital Signs Temp Pulse Resp BP Pulse Ox O2 Del Method O2 Flow Rate 97.9 F 76 22 H 93/53 L 97 High Flow Nasal Cannula 30 06/04/24 08:31 06/04/24 10:06 06/04/24 10:06 06/04/24 08:31 06/04/24 10:06 06/04/24 08:31 06/04/24 10:06 FiO2 70 06/04/24 10:06 Narrative Exam General: Awake and in no acute distress. Conversational and non-toxic appearing. HEENT: Normocephalic, atraumatic, mucous membranes moist. Heart: Regular rate and rhythm, no murmurs. Lungs: Clear to auscultation with no wheezing or crackles. Coarse breath sounds bilaterally, patient currently on HFNC. Abdomen: Soft, nondistended, nontender, positive bowel sounds. ?No guarding or rebound tenderness. Neurologic: Alert and oriented x3, no gross neurological deficit, and patient able to move all 4 extremities. Extremities: No edema. Skin: no rash, no ecchymoses Objective Labs 06/05/24 05:30 06/05/24 05:30 Labs: Laboratory Results - last 24 hr 06/04/24 06/04/24 06/04/24 02:10 02:39 09:56 WBC 12.2 H D RBC 5.57 Hgb 12.3 L Hct 37.8 L MCV 68 L MCH 22.1 L MCHC 32.5 RDW Std Deviation 43.5 Plt Count 564 H Neut % (Auto) 91 H Lymph % (Auto) 5 L [place] % (Auto) 1 Eos % (Auto) 0 Baso % (Auto) 0 Neut # (Auto) 11.1 H Lymph # (Auto) 0.7 L [place] # (Auto) 0.2 Eos # (Auto) 0.0 Baso # (Auto) 0.0 Immature Gran # (Auto) 0.22 H Absolute Nucleated RBC 0.06 H Immature Gran % 2 H Nucleated RBC % 1 H D-Dimer 962 H Puncture Site Right Radial ABG pH 7.45 ABG pCO2 36 ABG pO2 139 H ABG HCO3 25 ABG O2 Saturation 98 ABG Base Excess 1 FiO2 100 Sodium 128 L 127 L Potassium 6.0 H D 5.5 H D Chloride 99 99 Carbon Dioxide 23.5 24.2 Anion Gap 6 L 4 L BUN 15 15 Creatinine 1.0 1.0 Estim Creat Clear Calc 102.6 102.6 eGFR > 60 > 60 BUN/Creatinine Ratio 15 15 Glucose 107 H 86 Calculated Osmolality 257 L 255 L Calcium 9.3 9.4 Corrected Calcium 9.5 Phosphorus 4.6 Magnesium 2.3 Total Bilirubin 0.3 AST 44 H ALT 125 H Alkaline Phosphatase 76 Total Protein 7.8 Albumin 3.9 Globulin 3.9 H Albumin/Globulin Ratio 1.0 L ABG Interpretation ABG results: 05/27/24 05/29/24 05/29/24 23:37 10:44 22:08 ABG pH 7.51 H 7.50 H 7.48 H ABG pCO2 28 L 32 32 ABG pO2 75 L 79 L 145 H D ABG HCO3 23 25 24 ABG O2 Saturation 96 95 98 ABG Base Excess 0 2 1 05/30/24 05/31/24 06/04/24 08:45 04:54 02:10 ABG pH 7.47 H 7.45 7.45 ABG pCO2 35 38 36 ABG pO2 86 D 82 L 139 H ABG HCO3 26 26 25 ABG O2 Saturation 97 96 98 ABG Base Excess 2 2 1 Quality Measures Quality Measures sepsis Current suspected stage: sepsis Possible source: pulmonary, GI tract/intra-abdominal, genitourinary and skin/soft tissue Blood cultures ordered: yes Antibiotic ordered: Yes Assessment & Plan Assessment Current Active Medications: Generic Name Dose Route Start Last Admin Trade Name Freq PRN Reason Stop Dose Admin Acetaminophen 1,000 mg 05/29/24 15:38 05/30/24 17:57 Acetaminophen 500 Mg Tablet PO 06/26/24 12:10 1,000 mg Q6H PRN Administration Pain 1-3 and Fever >101.5 Albuterol/Ipratropium 3 ml 06/04/24 03:00 06/04/24 10:05 Albuterol/Ipratropium (Duoneb) Rt Munira 3 Ml Nebu INH 07/04/24 02:59 3 ml Q4HRRT JUAN JOSE Administration Calcium Carbonate 600 mg 05/29/24 09:00 06/04/24 08:33 Calcium Carbonate 600 Mg Tablet PO 06/28/24 08:59 600 mg QDAY JUAN JOSE Administration Fluconazole 400 mg 05/29/24 09:00 06/04/24 08:32 Fluconazole 100 Mg Tablet PO 06/05/24 08:59 400 mg QDAY JUAN JOSE Administration Heparin Sodium (Porcine) 5,000 unit 05/27/24 21:00 06/04/24 08:33 Heparin Sod Inj 5000 Unit/Ml Vial SC 06/10/24 20:59 5,000 unit Q12H JUAN JOSE Administration Piperacillin/Tazobactam/Dextrose 3.375 gm in 50 mls @ 12.5 mls/hr 06/01/24 14:00 06/04/24 05:50 Zosyn IV 06/08/24 13:59 12.5 mls/hr Q8HR JUAN JOSE Administration Protocol Methylprednisolone Sodium Succinate 40 mg 06/04/24 21:00 Methylprednisolone Sod Succ 40 Mg Vial IVP 06/11/24 20:59 BID JUAN JOSE Nicotine 14 mg 05/28/24 09:00 06/04/24 08:45 Nicotine Patch 14 Mg/24 Hr Patch.Td24 TOP 06/27/24 08:59 Not Given QDAY JUAN JOSE Ondansetron HCl 4 mg 05/29/24 21:51 05/29/24 23:00 Ondansetron Inj 2 Mg/Ml Inj 2 Ml IV 06/28/24 21:50 4 mg Q6HR PRN Administration NAUSEA OR VOMITING Protocol Pantoprazole Sodium 40 mg 05/31/24 19:30 06/04/24 08:33 Pantoprazole 40 Mg Tablet PO 06/30/24 19:29 40 mg QDAY JUAN JOSE Administration Promethazine HCl/Dextromethorphan 5 ml 05/28/24 16:56 05/30/24 02:34 Promethazine/Dm Syrup 5 Ml Dose PO 06/27/24 16:55 5 ml Q4HR PRN Administration COUGH Protocol Sennosides 1 tab 05/27/24 12:11 Senna Tablet PO 06/26/24 12:10 QDAY PRN constipation Protocol Trimethoprim/Sulfamethoxazole 2 tab 06/01/24 17:00 06/04/24 11:50 Trimethoprim/Sulfa 160/800 Ds Tablet PO 06/08/24 16:59 2 tab QID JUAN JOSE Administration Plan Summary: Mr. Owen is a 39-year-old male with no significant past medical history who presented to [facility] with a chief complaint of shortness of breath and cough. Patient admitted for acute hypoxic respiratory failure secondary to pneumonia. # Acute hypoxic respiratory failure secondary to # Sepsis secondary to # Bilateral pneumonia #?High suspicion of pneumocystis jirvocii pneumonia with underlying HIV # Leukocytosis # ARDS with [place] criteria met,resolving -Patient presented with shortness of breath in the ED, was started on oxygen via nasal cannula. Patient reports having fever myalgia and chills for about 3 weeks with cough which progressively have worsened. -Patient met SIRS criteria 3/4, P133, RR 25, temp 103.2 on presentation, chest x-ray in ED significant for bilateral pneumonia. WBC count 11.8, neutrophil 84%. Pro-Jayy elevated 0.61. -Patient tested for influenza A and B, COVID rapid test negative in ED. fibrinogen elevated in ED 596 -Curb 65 score 1, low risk. PSI/port score 88 points, risk class III 0.92-2.8% -Patient was given ceftriaxone and azithromycin in ED. -Patient was given about 3 L fluid in ED, CT chest showed diffuse severe bilateral pneumonia -Hepatitis panel nonreactive, COVID, RSV negative Group A rapid strep negative, cocci IgM, IgG negative. MRSA nasal screen negative, sputum culture shows mixed oral kylie urine culture negative. Repeat cocci IgM negative, hepatitis panel nonreactive, H influenza type B antigen, Neisseria meningitis antigen, repeat COVID, urine strep a antigen, urine strep pneumonia antigen negative. Urine Legionella negative. -Patient upgraded to ICU on 05/30 due to increased work of breathing and close observation with possible intubation, patient was started on steroids, Zosyn, azithromycin and doxycycline. Fluconazole was continued. -Suspicion of vasculitis by ICU team, ordered QuantiFERON test, rheumatoid factor, DANIEL screen, ANCA screen, antiproteinase 3, antimyeloperoxidase, complement C3, complement C4 C, lymphocyte subset panel, CD4 percentage, absolute CD4 count, CD4/CD8 ratio, percentage CD8 cell, absolute CD8 count. -Patient downgraded on 06/01 due to improvement in work of breathing. -Beta-1,3D glucan more than 500, interpretation positive -%CD4 cells 21, absolute CD4 cell count 116, CD/CD8 ratio 0.33, %CD8 cells 66. Plan: -Continue Zosyn, Bactrim and Fluconazole per ID recommendations -Continue Solu-Medrol 60 mg IV push every 12 hours -Follow repeat blood culture and urine culture -Supplemental oxygen as needed -Pending HIV confirmatory test -Continue to monitor CBC -Consulted infectious disease, appreciate recommendations -Repeat chest x-ray -Consulted pulmonology, appreciate recommendations # Mild hyponatremia-resolved -Suspicion of Legionella pneumonia due to hyponatremia along with bilateral pneumonia. Sodium on admission 128. -Possible hyponatremia in setting of pneumonia, lung disease -Follow Legionella urine antigen -Monitor CMP in a.m. # Microcytic hypochromic anemia -Hemoglobin 12.1, MCV 69, MCH 22 on admission -Iron panel shows iron 17, TIBC 262, iron saturation 6, unsaturated iron binding 245 -Peripheral blood film confirms microcytic hypochromic anemia with target cells -Monitor CBC in a.m. # Transaminitis -Possible in setting of sepsis, will continue to monitor. -Possible in setting of fluconazole -Follow CMP in a.m. # Electrolyte imbalance # Hypophosphatemia # Hypocalcemia # Hyperkalemia -Continue to monitor electrolytes -Continue calcium carbonate DVT prophylaxis: Heparin twice daily GI prophylaxis: Protonix PO Diet: Cardiac Lines: Peripheral IV Code status: Full code Physical therapy: Not ordered/indicated Case was discussed with senior resident Dr Magallanes PGY-3 and attending physician, Dr Aram Welsh PGY-1 Attending Provider Attestation/Addendum I have discussed and was present for the essential components of the history, physical examination, diagnosis, and treatment plan with the resident. I agree with the patient's care as documented by the resident and amended herein by me. Maury Chiu DO. Although this document has been carefully reviewed, there may still be some phonetic and other typographical errors. These errors are purely grammatical due to imperfections in the software program and should not be construed in any way to compromise the substance of the patient's medical care during this visit.
[2024-06-04] MEDS: CHLORPROMAZINE 25 MG PO ×2 (14:23→21:06)
[2024-06-04 17:01] LABS: Potassium 5.1 mMol/L (3.4-5.1)
[2024-06-04] MEDS: ONDANSETRON INJ 2 MG/ML INJ 2 ML 4 MG IV (17:44)
--- NOTE | 2024-06-04 18:08 | XR_ITS ---
Examination: AP chest single view Technique one AP portable upright chest single view Exam date and time: June 04, 2024 at 1828 hrs. Comparison June 04, 2024 12:59 AM, June 01, 2024 Indications: Difficulty breathing this week, severe pneumonia ARDS on chest imaging this week Findings: No significant change in severe bilateral pneumonia/ARDS Normal heart size Osseous structures intact Impression: No change in severe bilateral pneumonia/ARDS
[2024-06-04] MEDS: METOCLOPRAMIDE INJ 5 MG/ML VIAL 2 ML IVP (18:20)
[2024-06-04 18:23] LABS: Base Excess 0 (-3-3); HCO3 24 mEq/L (20-26); Inspired Oxygen, FIO2 100 %; O2 Saturation 94 % (91-98); PCO2 36 mmHg (32.0-48.0); PO2 80 mmHg (83-108); pH, Arterial 7.44 (7.35-7.45)
[2024-06-04 18:24] LABS: Allen Test Performed/OK; Puncture Site Right Radial
[2024-06-04] MEDS: FUROSEMIDE INJ 10 MG/ML 4ML VIAL 40 MG IVP (18:25)
--- NOTE | 2024-06-04 18:26 | ECHO_ITS ---
Transthoracic Echo Report Ht (in): 66 Wt (lb): 187 Exam Location: Portable Status: Inpatient Store Stock Help: Ellie Carlos Indications: Procedure Performed: BP: 99 / 44 HR: 91 Rhythm: Sinus Technical Quality: Fair MEASUREMENTS (Male / Female) Normal Values 2D ECHO LV Diastolic Diameter PLAX 4.8 cm 4.2 - 5.9 / 3.9 - 5.3 cm LV Systolic Diameter PLAX 3.4 cm IVS Diastolic Thickness 1.0 cm 0.6 - 1.0 / 0.6 - 0.9 cm LVPW Diastolic Thickness 0.8 cm 0.6 - 1.0 / 0.6 - 0.9 cm LV Relative Wall Thickness 0.4 LVOT Diameter 1.7 cm LA Volume Index 14.9 cm?/m? 16 - 28 cm?/m? DOPPLER AV Peak Velocity 115.0 cm/s AV Peak Gradient 5.3 mmHg AV Mean Gradient 3.0 mmHg AV Velocity Time Integral 20.1 cm LVOT Peak Velocity 107.0 cm/s LVOT Peak Gradient 4.6 mmHg LVOT Velocity Time Integral 18.8 cm LVOT Cardiac Index 1928.9 cm?/min?m? AV Area Cont Eq vti 2.1 cm? AV Area Cont Eq pk 2.1 cm? MV Peak Velocity 67.4 cm/s MV Peak Gradient 1.8 mmHg MV Mean Velocity 47.3 cm/s MV Mean Gradient 1.0 mmHg MV Area PHT 4.2 cm? Mitral E Point Velocity 60.1 cm/s Mitral A Point Velocity 57.7 cm/s Mitral E to A Ratio 1.0 LV E' Lateral Velocity 13.3 cm/s Mitral E to LV E' Lateral Ratio 4.5 LV E' Septal Velocity 10.3 cm/s Mitral E to LV E' Septal Ratio 5.8 FINDINGS Left Ventricle Normal left ventricular size, wall thickness, systolic function with no obvious regional wall motion abnormalities. The ejection fraction is visually estimated at 55-60%. Right Ventricle The right ventricle is normal in size and systolic function. Left Atrium The left atrium is normal by two-dimensional, color flow and Doppler imaging with no structural abnormalities, no thrombus formation present. Right Atrium The right atrium is normal by two-dimensional imaging, color flow and Doppler imaging with no struct ural abnormalities, no thrombus formation present. Atrial Septum The interatrial septum appears normal with no evidence of a shunt. Aorta The aorta is normal by two-dimensional, color flow and Doppler interrogation. Mitral Valve The mitral valve is normal by two-dimensional, color flow and Doppler interrogation. There is trace mitral valve regurgitation. Aortic Valve The aortic valve is trileaflet and normal by two-dimensional, color flow and Doppler interrogation. There is no significant aortic valve regurgitation. Tricuspid Valve The tricuspid valve is normal by two-dimensional, color flow and Doppler interrogation. There is tra ce tricuspid valve regurgitation. Pulmonic Valve There is no significant pulmonic valve regurgitation. Vessels The pulmonary artery appears normal. The inferior vena cava pulmonary and hepatic veins appear blanco l. Pericardium The pericardium is normal by two-dimensional imaging. There is no significant pericardial effusion. CONCLUSIONS The transthoracic study is normal by two-dimensional, color flow imaging and Doppler interrogation. Normal LV size and function. Estimated EF 55-60% Normal RV size and function. Trace MR, TR. Juanita Mora (Electronically Signed) Final Date: 06 June 2024 18:44
--- NOTE | 2024-06-04 18:46 | PD.RESEVENT ---
Documentation for date of: 06/04/24 Event Note Event Note: Rapid response called for patient around 6 PM due to the concern of oxygen saturation being in low 80s on high flow 30 L with FiO2 70. Patient seen on 100% high flow nasal cannula, patient saturating more than 95, lung sounds heard bilaterally, patient will be given Reglan 5 mg x 1 for hiccups and Lasix 40 mg x 1 due to the concern of fluid buildup in lungs. Will repeat chest x-ray, obtain ABG, obtain EKG, patient started on Kayexalate from tomorrow, will order PPD, will obtain ECHO. Patient will be started on 40 mg prednisone starting tomorrow. Consider Haldol 2.5 mg if patient still has uncontrolled hiccups. Case discussed with Attending Dr. Aram Welsh PGY1
[2024-06-04] MEDS: TUBERCULIN PPD INJ 5 UNIT/0.1 ML DOSE ID (18:47)
[2024-06-04 22:06] LABS: CD19 Percentage 6 % (6-29); CD19, Absolute 20 cells/uL (110-660); CD3 Percentage 91 % (57-85); CD3, Absolute 333 cells/uL (840-3060); CD3-CD16+CD56+ % 3 % (4-25); CD3-CD16+CD56+ (Abs) <20 cells/uL (70-760); CD4 Percentage 22 % (30-61); CD4, Absolute 87 cells/uL (490-1740); CD4/CD8 Ratio 0.33 (0.86-5.00); CD8 Percentage 68 % (12-42); CD8, Absolute 266 cells/uL (180-1170)
[2024-06-05] VITALS (39 sets, daily range): BP systolic 71–189; BP diastolic 39–105; PULSE 86–147; RESP 14–33; TEMP 36.2–36.9; O2SAT 91–98
[2024-06-05] MEDS: ALBUTEROL/IPRATROPIUM (Duoneb) RT SOL 3 ML NEBU INH ×2 (02:31→07:08)
[2024-06-05] MEDS: CHLORPROMAZINE 25 MG PO (05:16)
[2024-06-05] MEDS: PIPER/TAZO 3.375 GM 3.375 GM/50 ML BAG IV ×3 (05:16→21:26)
[2024-06-05] MEDS: TRIMETHOPRIM/SULFA 160/800 DS TABLET 2 TAB PO (05:16)
[2024-06-05 05:57] LABS: Basophils % (Auto) 0 % (0-2.5); Eosinophils # (Auto) 0.1 Thou/mm3 (0.0-0.5); Eosinophils % (Auto) 1 % (0-10); Hematocrit 36.4 % (41.0-53.0); Hemoglobin 12.2 g/dL (13.5-16.0); Immature Granulocytes % (Auto) 2 % (0-0); Immature Granulocytes Auto 0.28 Thou/mm3 (0.00-0.00); Lymphocytes # (Auto) 0.8 Thou/mm3 (1.0-4.8); Lymphocytes % (Auto) 6 % (10-50); Mean Corpuscular HGB Conc 33.5 g/dl (31.0-37.0); Mean Corpuscular Hemoglobin 22.2 pg (25.0-35.0); Mean Corpuscular Volume 66 fL (80-100); Monocytes # (Auto) 0.2 Thou/mm3 (0.0-0.8); Monocytes % (Auto) 2 % (0-12); Neutrophils # (Auto) 11.1 Thou/mm3 (1.8-7.7); Neutrophils % (Auto) 89 % (37-80); Nucleated Red Blood Cell # 0.06 Thou/mm3 (0.00-0.00); Nucleated Red Blood Cell % 1 /100 WBC (0); Platelet Count 639 Thou/mm3 (140-440); RDW Standard Deviation 41.1 fL (35.1-43.9); White Blood Count 12.4 Thou/mm3 (3.8-10.6)
[2024-06-05 06:25] LABS: Alanine Aminotransferase 95 U/L (10-49); Alkaline Phosphatase 79 U/L (46-116); Anion Gap 6 (7-16); Aspartate Amino Transferase 35 U/L (0-34); BUN/Creatinine Ratio 17 Ratio (12-20); Bilirubin,Total 0.4 mg/dL (0.3-1.2); Blood Urea Nitrogen 19 mg/dL (9-23); Calcium 8.9 mg/dL (8.3-10.6); Calcium (Corrected) 8.9 mg/dL (8.5-10.1); Carbon Dioxide 24.2 mMol/L (20.0-31.0); Chloride 97 mMol/L (98-107); Creatinine (Component) 1.1 mg/dL (0.6-1.3); Estimated Creatinine Clearance 93.2 mL/min (>60); Glucose 86 mg/dL (74-106); Magnesium 2.2 mg/dL (1.6-2.6); Osmolality,Calculated 256 (275-295); Phosphorous 3.8 mg/dL (2.4-5.1); Sodium 127 mMol/L (136-145); eGFR > 60 See Note
[2024-06-05] MEDS: SOD POLYSTYRENE SULFON SUSP 15 GM/60 ML BTL PO (09:24)
[2024-06-05] MEDS: predniSONE 20 MG TABLET 40 MG PO (09:24)
[2024-06-05] MEDS: PANTOPRAZOLE 40 MG TABLET PO (09:25)
[2024-06-05] MEDS: CALCIUM CARBONATE 600 MG TABLET PO (09:25)
[2024-06-05] MEDS: HEPARIN SOD INJ 5000 UNIT/ML VIAL SC ×2 (09:31→20:31)
--- NOTE | 2024-06-05 10:44 | PD.RESEVENT ---
Documentation for date of: 06/05/24 Event Note Event Note: Rapid response called for the patient in a.m. around 10:15 AM. Patient desaturated down to 80s, patient on high flow nasal cannula 30 L with 100% FiO2. Patient complains of increased work of breathing, reports that he feels his lungs are not filling with air, he also reported that his oxygen saturation falls down every time he moves, breath sounds were heard bilaterally. ICU team was consulted and patient will be upgraded to ICU for possible bronchoscopy today and further management. Case discussed with Attending Dr. Aram Welsh PGY1
[2024-06-05] MEDS: ETOMIDATE INJ 2 MG/ML VIAL 10 ML 20 MG IVP (10:47)
[2024-06-05] MEDS: ROCURONIUM INJ 10 MG/ML VIAL 10 ML 80 MG IVP ×2 (10:48→12:56)
[2024-06-05] MEDS: PROPOFOL 1,000 MG IVPB 1,000 MG/100 ML VIAL 2.558 MG IV (10:51)
[2024-06-05] MEDS: fentaNYL 2,500 MCG/250 ML BAG 2,500 MCG/250 ML BAG IV (10:52)
--- NOTE | 2024-06-05 11:00 | XR_ITS ---
Examination: AP chest single view Technique one AP portable supine chest single view Exam date and time: June 05, 2024 1110 hrs. Comparison June 04, 2024 Indications: Coughing congestion shortness of breath this week, hypoxic respiratory failure, severe pneumonia, postintubation post orogastric tube placement Findings: Severe bilateral pneumonia ARDS Orogastric tube is in the stomach, the tip below the level of the film Endotracheal tube tip 4.4 cm above sunil Impression: Severe pneumonia ARDS pattern Tracheal tube tip 4.4 cm above sunil Orogastric tube in the stomach
[2024-06-05] MEDS: MIDAZOLAM INJ 1 MG/ML VIAL 2 ML 2 MG IV (11:02)
--- NOTE | 2024-06-05 11:19 | PD.RESCONSUL ---
HPI Data of Consult Requesting Physician: Yann Chiu DO Admitting Provider: Wayne Long MD Attending Provider: Yann Chiu DO Primary Care Provider: Physician No Primary/Family Consult Narrative Reason for consult: Desaturation to 70% on HiFlow at 100% FiO2 History of present illness: Mr. Owen is a 39-year-old male with no known previous past medical history who presented to [facility] on 05/27/2024 with a chief complaint of shortness of breath and cough. Patient had exhibited symptoms of chills, body aches, generalized weakness, fever, and night sweats progressively worsening over the prior weeks. He was admitted and initiated on empiric treatment for community-acquired pneumonia and cocci pneumonia, although cocci IgM returned negative twice this admission. Over the course of his hospitalization patient's oxygen requirements continued to worsen as he became more hypoxic worse with activity and movement. He had intermittent fevers and sinus tachycardia. All of the patient's culture testing has been negative thus far, including blood, urine, sputum, and MRSA screening. HIV test returned equivocal, possible positive and was sent out for confirmatory testing. Primary team had thomas consulted Dr. Anderson, Dialysis Chief Equipment Technician for recommendations. There is a suspicion for pneumocystis pneumonia given the preliminary result therefore the patient was started on TMP-SMX. Beta-(1,3)-D-glucan testing was also positive (>500). 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 He did endorse a history of incarceration in 2006. TB quantiferon was indeterminate on 05/31. He denies any recent travel, sick contacts, or contact with anyone that may have had recent international travel. Patient last was in ICU 05/30/2024-05/31/2024 for increased work of breathing on HiFlow and fever, was started on steroids and monitored closely but no intubation at that time. He was downgraded to floors after decrease in FiO2 needs and improvement in respiratory status. Today 06/05/2024 rapid response was called around 10:15 am for patient desaturation to 70s while on HiFlow 30L at 100% FiO2, which occurred at least twice this morning while patient was moving. Patient this morning was reporting increased work of breathing and dyspnea upon any movement sitting up or out of the bed to urinate. Patient also had rapid response for similar episodes last night. When examined he appeared laying flat in the bed with nonlabored breathing, however is diaphoretic and repeatedly complaining of dyspnea. Decision was made to upgrade patient to ICU again for intubation due to impending respiratory failure and bronchoscopy for further diagnotic data. cc:: cc: Yann Chiu, Past Medical History Past Medical History Comments PMH COMMENT: PMH: No significant past medical history PSHx: Denies Allergies: No known allergies Social history: -Smoking: Positive for smoking, current everyday smoker. 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 Laying in bed flat, conversational, speaking full sentences. HEENT: Normocephalic, atraumatic, mucous membranes moist. Diaphoretic. On HFNC. Heart: Tachycardic rate and regular rhythm, no murmurs. Lungs: Coarse breath sounds auscultated bilaterally. Abdomen: Soft, nondistended, nontender, positive bowel sounds. ?No guarding or rebound tenderness. Neurologic: Alert and oriented x3, no gross neurological deficit, and patient able to move all 4 extremities. Extremities: No edema, normal muscle tone. Skin: No rash or ecchymoses. Multiple tattoos present. Results Labs 06/06/24 05:10 06/06/24 05:10 Labs: Short CBC 06/05/24 Range/Units 05:30 WBC 12.4 H (3.8-10.6) Thou/mm3 Hgb 12.2 L (13.5-16.0) g/dL Hct 36.4 L (41.0-53.0) % Plt Count 639 H D (140-440) Thou/mm3 BMP 06/04/24 06/05/24 16:40 05:30 Sodium 127 L Potassium 5.1 5.0 Chloride 97 L Carbon Dioxide 24.2 BUN 19 Creatinine 1.1 Glucose 86 Calcium 8.9 Liver Function 06/05/24 Range/Units 05:30 Total Bilirubin 0.4 (0.3-1.2) mg/dL AST 35 H (0-34) U/L ALT 95 H (10-49) U/L Alkaline Phosphatase 79 (46-116) U/L Albumin 4.0 (3.5-5.0) gm/dL ABG Interpretation ABG results: 05/27/24 05/29/24 05/29/24 23:37 10:44 22:08 ABG pH 7.51 H 7.50 H 7.48 H ABG pCO2 28 L 32 32 ABG pO2 75 L 79 L 145 H D ABG HCO3 23 25 24 ABG O2 Saturation 96 95 98 ABG Base Excess 0 2 1 05/30/24 05/31/24 06/04/24 08:45 04:54 02:10 ABG pH 7.47 H 7.45 7.45 ABG pCO2 35 38 36 ABG pO2 86 D 82 L 139 H ABG HCO3 26 26 25 ABG O2 Saturation 97 96 98 ABG Base Excess 2 2 1 06/04/24 18:16 ABG pH 7.44 ABG pCO2 36 ABG pO2 80 L D ABG HCO3 24 ABG O2 Saturation 94 ABG Base Excess 0 Quality Measures Quality Measures sepsis Current suspected stage: sepsis Possible source: pulmonary, GI tract/intra-abdominal, genitourinary and skin/soft tissue Blood cultures ordered: yes Antibiotic ordered: Yes Medications Home Medications and Allergies Home Medications ?Medication ?Instructions ?Recorded ?Confirmed ?Type No Known Home Medications 05/29/24 05/29/24 History Allergies Allergy/AdvReac Type Severity Reaction Status Date / Time No Known Allergies Allergy Verified 05/27/24 07:57 Visit Medications Acetaminophen (Acetaminophen 500 Mg Tablet) 1,000 mg PO Q6H PRN PRN Reason: Pain 1-3 and Fever >101.5 Stop: 06/26/24 12:10 Last Admin: 05/30/24 17:57 Dose: 1,000 mg Albuterol/Ipratropium (Albuterol/Ipratropium (Duoneb) Rt Munira 3 Ml Nebu) 3 ml INH Q4HRRT PRN PRN Reason: WHEEZING Stop: 07/04/24 02:59 Calcium Carbonate (Calcium Carbonate 600 Mg Tablet) 600 mg PO QDAY [facility] Stop: 06/28/24 08:59 Last Admin: 06/05/24 09:25 Dose: 600 mg Chlorpromazine HCl (Chlorpromazine 25 Mg Tablet) 25 mg PO TID JUAN JOSE Stop: 07/04/24 14:14 Last Admin: 06/05/24 05:16 Dose: 25 mg Heparin Sodium (Porcine) (Heparin Sod Inj 5000 Unit/Ml Vial) 5,000 unit SC Q12H JUAN JOSE Stop: 06/10/24 20:59 Last Admin: 06/05/24 09:31 Dose: 5,000 unit Piperacillin/Tazobactam/Dextrose (Zosyn) 3.375 gm in 50 mls @ 12.5 mls/hr IV Q8HR JUAN JOSE; Protocol Stop: 06/08/24 13:59 Last Admin: 06/05/24 05:16 Dose: 12.5 mls/hr Fentanyl Citrate (Sublimaze Inj 2,500 Mcg/250 Ml Bag) 2,500 mcg in 250 mls @ 2.5 mls/hr IV .Q24H PRN; Protocol PRN Reason: PER PROTOCOL Stop: 06/10/24 10:37 Last Titration: 06/05/24 10:57 Dose: 150 mcg/hr, 15 mls/hr Propofol (Diprivan Ivpb) 1,000 mg in 100 mls @ 2.558 mls/hr IV .Q24H PRN; Protocol PRN Reason: PER PROTOCOL Stop: 07/05/24 10:37 Last Titration: 06/05/24 10:57 Dose: 25 mcg/kg/min, 12.791 mls/hr Lactated Ringer's (Lactated Ringers) 1,000 mls @ 999 mls/hr IV .Q1H1M ONE Stop: 06/05/24 11:48 Norepinephrine Bitartrate (Levophed In Ns 16mg/250ml) 16 mg in 250 mls @ 3.997 mls/hr IV .Q24H PRN; Protocol PRN Reason: PER PROTOCOL Stop: 07/05/24 10:48 Nicotine (Nicotine Patch 14 Mg/24 Hr Patch.Td24) 14 mg TOP QDAY [facility] Stop: 06/27/24 08:59 Last Admin: 06/05/24 09:39 Dose: Not Given Ondansetron HCl (Ondansetron Inj 2 Mg/Ml Inj 2 Ml) 4 mg IV Q6HR PRN; Protocol PRN Reason: NAUSEA OR VOMITING Stop: 06/28/24 21:50 Last Admin: 06/04/24 17:44 Dose: 4 mg Pantoprazole Sodium (Pantoprazole 40 Mg Tablet) 40 mg PO QDAY [facility] Stop: 06/30/24 19:29 Last Admin: 06/05/24 09:25 Dose: 40 mg Prednisone (Prednisone 20 Mg Tablet) 40 mg PO QDAY [facility] Stop: 07/04/24 18:29 Last Admin: 06/05/24 09:24 Dose: 40 mg Promethazine HCl/Dextromethorphan (Promethazine/Dm Syrup 5 Ml Dose) 5 ml PO Q4HR PRN; Protocol PRN Reason: COUGH Stop: 06/27/24 16:55 Last Admin: 05/30/24 02:34 Dose: 5 ml Sennosides (Senna Tablet) 1 tab PO QDAY PRN; Protocol PRN Reason: constipation Stop: 06/26/24 12:10 Sodium Polystyrene Sulfonate (Sod Polystyrene Sulfon Susp 15 Gm/60 Ml Btl) 15 gm PO QDAY [facility] Stop: 07/05/24 08:59 Last Admin: 06/05/24 09:24 Dose: 15 gm Trimethoprim/Sulfamethoxazole (Trimethoprim/Sulfa 160/800 Ds Tablet) 2 tab PO QID [facility] Stop: 06/08/24 16:59 Last Admin: 06/05/24 05:16 Dose: 2 tab Discontinued Medications Acetaminophen (Acetaminophen 500 Mg Tablet) 1,000 mg PO X1 ONE Stop: 05/27/24 08:10 Last Admin: 05/27/24 08:28 Dose: 1,000 mg Acetaminophen (Acetaminophen 325 Mg Tablet) 650 mg PO Q6H PRN PRN Reason: Pain and Fever >101.5 Stop: 06/26/24 12:10 Acetaminophen (Acetaminophen 500 Mg Tablet) 1,000 mg PO X1 ONE Stop: 05/27/24 18:03 Last Admin: 05/27/24 18:11 Dose: 1,000 mg Acetaminophen (Acetaminophen 325 Mg Tablet) 1,000 mg PO Q6H PRN PRN Reason: Pain 1-3 and Fever >101.5 Stop: 06/26/24 12:10 Last Admin: 05/28/24 08:14 Dose: 1,000 mg Acetaminophen (Acetaminophen 500 Mg Tablet) 1,000 mg PO X1 ONE Stop: 05/30/24 02:43 Last Admin: 05/30/24 02:50 Dose: 1,000 mg Albuterol/Ipratropium (Albuterol/Ipratropium (Duoneb) Rt Munira 3 Ml Nebu) 3 ml INH Q4HRRT JUAN JOSE Stop: 07/04/24 02:59 Last Admin: 06/05/24 07:08 Dose: 3 ml Albuterol/Ipratropium (Albuterol/Ipratropium (Duoneb) Rt Munira 3 Ml Nebu) 3 ml INH X1 ONE Stop: 06/04/24 00:00 Last Admin: 06/04/24 00:10 Dose: 3 ml Azithromycin (Azithromycin 250 Mg Tablet) 500 mg PO QDAY [facility]; Protocol Stop: 05/31/24 14:14 Last Admin: 05/31/24 09:31 Dose: 500 mg Azithromycin (Azithromycin 250 Mg Tablet) 500 mg PO QDAY [facility] Stop: 06/08/24 08:59 Last Admin: 06/01/24 09:46 Dose: 500 mg Calcium Carbonate (Calcium Carbonate 600 Mg Tablet) 600 mg PO X1 ONE Stop: 06/03/24 22:13 Last Admin: 06/03/24 23:20 Dose: 600 mg Dextrose (Dextrose 50%-Water Inj 50 Ml Syringe) 50 ml IV X1 ONE Stop: 06/04/24 09:02 Last Admin: 06/04/24 10:01 Dose: Not Given Etomidate (Etomidate Inj 2 Mg/Ml Vial 10 Ml) 20 mg IVP X1 ONE Stop: 06/05/24 10:37 Last Admin: 06/05/24 10:47 Dose: 20 mg Fluconazole (Fluconazole 100 Mg Tablet) 400 mg PO X1 ONE Stop: 05/27/24 18:27 Last Admin: 05/31/24 06:49 Dose: Not Given Fluconazole (Fluconazole 100 Mg Tablet) 400 mg PO QDAY [facility] Stop: 06/05/24 08:59 Last Admin: 06/04/24 08:32 Dose: 400 mg Furosemide (Furosemide Inj 10 Mg/Ml 4ml Vial) 40 mg IVP X1 ONE Stop: 06/04/24 18:22 Last Admin: 06/04/24 18:25 Dose: 40 mg Haloperidol Lactate (Haloperidol Lact Inj 5 Mg/Ml Vial) 2.5 mg IV X1 ONE Stop: 06/04/24 18:13 Sodium Chloride (Ns) 1,983 mls @ 1,983 mls/hr 30 ml/kg infuse over 60 min (1983 ml) IV .Q1H ONE Stop: 05/27/24 09:46 Last Infusion: 05/27/24 11:20 Dose: Infused Ceftriaxone Sodium 1,000 mg/ (Sodium Chloride) 50 mls @ 100 mls/hr IV X1 ONE Stop: 05/27/24 09:16 Last Infusion: 05/27/24 11:20 Dose: Infused Azithromycin 500 mg/ Sodium (Chloride) 250 mls @ 250 mls/hr IV X1 ONE Stop: 05/27/24 09:48 Last Infusion: 05/27/24 11:20 Dose: Infused Sodium Chloride (Ns) 1,000 mls @ 999 mls/hr IV .Q1H1M ONE Stop: 05/27/24 11:58 Last Infusion: 05/30/24 13:21 Dose: Infused Levofloxacin/Dextrose (Levaquin Ivpb) 750 mg in 150 mls @ 100 mls/hr IV QDAY JUAN JOSE Stop: 06/04/24 08:59 Levofloxacin/Dextrose (Levaquin Ivpb) 750 mg in 150 mls @ 100 mls/hr IV QDAY [facility] Stop: 06/03/24 18:23 Fluconazole (Diflucan/Ns Ivpb) 400 mg in 200 mls @ 100 mls/hr IV QDAY JUAN JOSE Stop: 06/03/24 18:27 Last Admin: 05/28/24 09:33 Dose: 100 mls/hr Vancomycin HCl/Dextrose (Vancomycin/D5w 1,250 Mg Ivpb) 250 mls @ 120 mls/hr IV X1 ONE Stop: 05/27/24 22:04 Sodium Chloride (Ns) 500 mls @ 999 mls/hr IV .Q31M ONE Stop: 05/28/24 01:19 Last Infusion: 05/30/24 13:21 Dose: Infused Sodium Chloride (Ns) 1,000 mls @ 125 mls/hr IV .Q8H ONE Stop: 05/28/24 16:23 Last Admin: 05/29/24 22:54 Dose: Not Given Sodium Chloride (Ns) 1,000 mls @ 100 mls/hr IV .Q10H ONE Stop: 05/28/24 18:23 Last Infusion: 05/30/24 13:20 Dose: Infused Sodium Chloride (Ns) 1,000 mls @ 60 mls/hr IV .[id number] ONE Stop: 05/29/24 01:07 Last Infusion: 05/30/24 13:21 Dose: Infused Levofloxacin/Dextrose (Levaquin Ivpb) 750 mg in 150 mls @ 100 mls/hr IV QDAY [facility] Stop: 06/06/24 08:59 Last Infusion: 05/30/24 17:00 Dose: Infused Sodium Chloride (Ns) 1,000 mls @ 999 mls/hr IV .Q1H1M ONE Stop: 05/30/24 09:22 Last Admin: 05/30/24 10:19 Dose: Not Given Magnesium Sulfate (Magnesium Sulfate Ivpb) 2 gm in 50 mls @ 25 mls/hr IV X1 ONE Stop: 05/30/24 10:27 Last Infusion: 05/30/24 12:23 Dose: Infused Doxycycline Hyclate 100 mg/ (Sodium Chloride) 100 mls @ 100 mls/hr IV BID [facility] Stop: 06/06/24 13:59 Last Admin: 06/01/24 08:27 Dose: 100 mls/hr Azithromycin 500 mg/ Sodium (Chloride) 250 mls @ 250 mls/hr IV QDAY [facility] Stop: 06/06/24 13:55 Last Admin: 05/30/24 16:48 Dose: Not Given Piperacillin/Tazobactam/Dextrose (Zosyn) 3.375 gm in 50 mls @ 100 mls/hr IV Q8HR JUAN JOSE Stop: 06/06/24 14:14 Last Admin: 05/31/24 13:16 Dose: 100 mls/hr Piperacillin/Tazobactam/Dextrose (Zosyn) 3.375 gm in 50 mls @ 100 mls/hr IV X1 ONE Stop: 06/01/24 09:14 Last Admin: 06/01/24 09:47 Dose: 100 mls/hr Trimethoprim/Sulfamethoxazole (10 ml/ Dextrose) 510 mls @ 250 mls/hr IV Q6HR [facility] Stop: 06/08/24 17:59 Ibuprofen (Ibuprofen Tab 400 Mg Tablet) 800 mg PO X1 ONE Stop: 05/27/24 08:10 Last Admin: 05/27/24 08:29 Dose: 800 mg Insulin Human Regular (Insulin Hum Regular 1 Unit/0.01 Ml (Per Unit)) 10 unit IV X1 ONE Stop: 06/04/24 09:02 Last Admin: 06/04/24 10:01 Dose: Not Given Ketorolac Tromethamine (Ketorolac Inj 30 Mg/Ml Vial) 30 mg IVP X1 ONE Stop: 05/28/24 00:09 Last Admin: 05/29/24 22:54 Dose: Not Given Levofloxacin (Levofloxacin 250 Mg Tablet) 750 mg PO QDAY ONE Stop: 05/27/24 18:30 Last Admin: 05/31/24 06:49 Dose: Not Given Levofloxacin (Levofloxacin 250 Mg Tablet) 750 mg PO QDAY JUAN JOSE Stop: 06/03/24 18:29 Last Admin: 05/29/24 08:29 Dose: 750 mg Methylprednisolone Sodium Succinate (Methylprednisolone Sod Succ 62.5 Mg/Ml 2ml Vial) 125 mg IVP Q6HR JUAN JOSE Stop: 06/06/24 13:59 Last Admin: 05/30/24 14:15 Dose: 125 mg Methylprednisolone Sodium Succinate (Methylprednisolone Sod Succ 62.5 Mg/Ml 2ml Vial) 125 mg IVP Q12HR JUAN JOSE Stop: 06/06/24 13:59 Last Admin: 05/31/24 09:38 Dose: Not Given Methylprednisolone Sodium Succinate (Methylprednisolone Sod Succ 40 Mg Vial) 60 mg IVP Q6HR JUAN JOSE Stop: 06/07/24 11:59 Last Admin: 06/01/24 11:53 Dose: 60 mg Methylprednisolone Sodium Succinate (Methylprednisolone Sod Succ 40 Mg Vial) 40 mg IVP Q12HR JUAN JOSE Stop: 06/08/24 20:59 Last Admin: 06/04/24 08:33 Dose: 40 mg Methylprednisolone Sodium Succinate (Methylprednisolone Sod Succ 40 Mg Vial) 40 mg IVP QDAY JUAN JOSE Stop: 06/11/24 08:59 Last Admin: 06/04/24 09:57 Dose: Not Given Methylprednisolone Sodium Succinate (Methylprednisolone Sod Succ 40 Mg Vial) 40 mg IVP BID [facility] Stop: 06/11/24 20:59 Metoclopramide HCl (Metoclopramide Inj 5 Mg/Ml Vial 2 Ml) 5 mg IVP X1 ONE; Protocol Stop: 06/04/24 18:14 Last Admin: 06/04/24 18:20 Dose: 5 mg Midazolam HCl (Midazolam Inj 1 Mg/Ml Vial 2 Ml) 2 mg IV X1 ONE Stop: 06/05/24 11:00 Last Admin: 06/05/24 11:02 Dose: 2 mg Pantoprazole Sodium (Pantoprazole 40 Mg Tablet) 40 mg PO QDAY JUAN JOSE Stop: 06/28/24 14:44 Last Admin: 05/30/24 08:40 Dose: 40 mg Pantoprazole Sodium (Pantoprazole 20 Mg Tablet) 20 mg PO X1 ONE Stop: 06/01/24 12:02 Last Admin: 06/01/24 12:10 Dose: 20 mg Pantoprazole Sodium (Pantoprazole 20 Mg Tablet) 20 mg PO X1 ONE Stop: 06/02/24 19:03 Last Admin: 06/02/24 21:34 Dose: 20 mg Pharmacy Consult (Vancomycin Pharmacy To Dose 1 Each Each) 1 each IV QDAY PRN PRN Reason: CONSULT Stop: 06/26/24 18:29 Potassium Phos/Sodium Phos (Naph,[facility] Mbdb 1 Packet (1.5 Gm)) 1 packet PO BID JUAN JOSE Stop: 06/26/24 12:29 Last Admin: 05/29/24 08:30 Dose: 1 packet Rocuronium [place] (Rocuronium Inj 10 Mg/Ml Vial 10 Ml) 80 mg IVP X1 ONE Stop: 06/05/24 10:38 Last Admin: 06/05/24 10:48 Dose: 80 mg Scopolamine (Scopolamine 1 Mg Tdsy) 1 mg TOP X1 ONE Stop: 05/28/24 20:06 Last Admin: 05/28/24 20:30 Dose: 1 mg Sodium Chloride (Sodium Chloride Rt 10% 15 Ml Nebu) 5 ml INH X1 ONE Stop: 05/27/24 12:19 Last Admin: 05/27/24 17:10 Dose: 5 ml Sodium Polystyrene Sulfonate (Sod Polystyrene Sulfon Susp 15 Gm/60 Ml Btl) 15 gm PO X1 ONE Stop: 06/04/24 11:01 Last Admin: 06/04/24 11:51 Dose: 15 gm Tuberculin PPD (Tuberculin Ppd Inj 5 Unit/0.1 Ml Dose) 5 unit ID X1 ONE Stop: 06/04/24 18:27 Last Admin: 06/04/24 18:47 Dose: 5 unit Assessment & Plan Plan This is a 39-year-old gentleman with no known previous past medical history who initially presented to [facility] on 05/27/2024 with a chief complaint of shortness of breath and cough, and recent history of chills, body aches, generalized weakness, fever, and night sweats progressively worsening over the prior weeks, subsequently admitted for acute hypoxic respiratory failure secondary to bilateral community-acquired pneumonia. He has had multiple rapid response alerts during the course of hospitalization for increasing oxygen requirements and recurrent fevers. He was monitored in ICU from 05/30-05/31, now currently upgraded to ICU again 06/05 for intubation and bronchoscopy. NEURO Prior to intubation, patient is awake, alert, and oriented x3, following commands, conversational. #s/p intubation with sedation -Patient started on fentanyl and propofol with a RASS goal of -5 -Patient started on cisatracurium with a goal of 2 of 4 twitches on Train of Four response indicating ~80% receptor block CARDIO #Sinus tachycardia Most likely secondary to respiratory distress and increased work of breathing. BP has been maintaining MAP >65. -Continuous telemetry -Echo ordered by primary team is pending -Will start norepinephrine if MAP <65 PULM #Acute hypoxic respiratory failure Secondary to #Bilateral pneumonia Patient presented with dyspnea and cough, requiring 4L NC on first ED evaluation, and history of chills, body aches, generalized weakness, fever, and night sweats progressively worsening over the prior weeks. Over hospitalization patient supplemental O2 requirements increased, requiring HiFlow by the second day. He has been treated empirically for community acquired pneumonia, but continues to have worsening respiratory status. Follow up CXRs continue to show worsening fluffy bilateral extensive infiltrates. Ddx: Infectious pneumonia bacterial vs fungal vs less likely viral, autoimmune causes, drug-induced causes. Negative studies: Cocci IgM and IgG, Hepatitis panel, Syphilis, Legionella, H.flu, N.meningitidis, Strep B, Strep pneumoniae, COVID, RSV, Flu A & B. Indeterminate: TB quantiferon GOLD Positive: Beta-(1,3)-D-Glucan 06/05/2024 Bronchoscopy completed today, which showed normal-appearing mucosa and no mucous plugging, hemorrhage, or friability bilaterally. Tx: -Continue Bactrim, Zosyn, fluconazole -Bronchoalveolar lavage washings culture pending -Fungal culture pending -BAL cytology sent to Pathology -DuoNebs q4h as needed, per RT patient has not had much secretions #ARDS Patient continues to have increased oxygen demands with worsening bilateral infiltrates on CXR. Will maintain ARDS ventilation protocol. Ddx: In setting of worsening pneumonia. Tx: -Early neuromuscular blockade -Low tidal volume ventilation, keep TV ~380 according to 6 mL/kg predicted body weight -Maintain peak plateau <30 -Permissive hypercapnia -Follow up ABG @19:30 and 05:00 -Prednisone 40 qday changed to Methylprednisolone 40 mg q8h -Will consider proning patient GI Prophylaxis: Pantoprazole 40 mg IV qday #Elevated LFTs Mildly elevated, liver US 05/30/2024 showed normal gallbladder and hepatomegaly without lesions or evidence of obstructions. Hep panel negative. -Continue monitoring NEPHRO #Hyponatremia Possible underlying SIADH -Monitor CMP URO #No active problems -Tijerina placed 06/05/2024 HEME #Microcytic anemia Clinically no evidence of bleeding. Iron panel shows iron 17, TIBC 262, iron saturation 6, unsaturated iron binding 245. Peripheral blood film confirms microcytic hypochromic anemia with target cells. -Patient hemoglobins stable, does not require transfusion at the moment, PT, INR, PTT within normal range -Patient typed and screened -Monitor H&H. Transfusing for Hgb <7 #Leukocytosis In the setting of likely infection. -Treatment of pneumonia as above #Thrombocytosis Likely reactive. -Continue to monitor ENDO #No active problems ID #Bilateral pneumonia of unknown etiology Negative studies: Cocci IgM and IgG, Hepatitis panel, Syphilis, Legionella, H.flu, N.meningitidis, Strep B, Strep pneumoniae, COVID, RSV, Flu A & B. Indeterminate: TB quantiferon GOLD Positive: Beta-(1,3)-D-Glucan Ddx: Bacterial versus fungal versus viral. 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 Patient completed 5 day course of azithromycin. -Continue Zosyn, Bactrim, fluconazole -PPD placed 06/04/2024 at 18:47, read due at 06/06/2024 18:47 right forearm -ID following, recommendations appreciated MSK #No active problems SKIN #No active problems DVT prophylaxis: Heparin 5,000 subQ q12h GI prophylaxis: Pantoprazole 40 mg IV qday Diet: NPO Tijerina: Present (06/05- ) Lines: Peripheral IV, Right radial arterial line Antibiotics: Zosyn, Bactrim, fluconazole CODE STATUS: FULL Reason for ICU care: Acute hypoxic respiratory failure secondary to bilateral pneumonia/ARDS Patient plan of care was discussed with the attending service line coordinator, Dr. Walsh. Jennifer Velasco, PGY-1
[2024-06-05 11:52] LABS: Base Excess -2 (-3-3); HCO3 30 mEq/L (20-26); Inspired Oxygen, FIO2 100 %; O2 Saturation 97 % (91-98); PCO2 94 mmHg (32.0-48.0); PO2 150 mmHg (83-108)
[2024-06-05 11:54] LABS: Allen Test Not Performed; Puncture Site Left Brachial
[2024-06-05 11:55] LABS: pH, Arterial 7.11 (7.35-7.45)
[2024-06-05 12:00] LABS: Cult AFB Sendout- Sputum* See Sep Rpt
[2024-06-05] MEDS: MIDAZOLAM/NS 100 MG IVPB 100 MG/100 ML BAG IV (12:17)
[2024-06-05] MEDS: TRIMETHOPRIM 160 MG/SULFA 800 MG SUSP 20 ML UDC 40 ML PO ×3 (12:35→20:31)
[2024-06-05] MEDS: CISATRACURIUM INJ 200 MG in SODIUM CHLORIDE 0.9% 500 ML 500 ML 13.303 MG IV (13:00)
--- NOTE | 2024-06-05 13:04 | ESOP_ITS ---
Procedures Procedure Date / Time 06/05/24 1304 Arterial Line Indication(s): frequent arterial line sampling and hypoxic resp failure Informed consent obtained: from patient Time out done, and the following verified: correct patient, side and site, procedure and patient position Size (Gauge): 20 Technique used: guide wire technique Post-Procedure: dry sterile dressing placed Patient tolerated procedure: well and no complications EBL(ml): 2 Complications: none Site: right and radial Procedure comment: Surgical cap, mask, and sterile gown/gloves were worn throughout the procedure. The Right wrist was prepped using chlorhexidine scrub and draped in sterile fashion using a three quarter sheet drape. The radial pulse was identified and the wrist was positioned in the usual fashion. No local anesthesia used due to patient under sedation with fentanyl and propofol. Using the Arrow Radial Arterial Line Kit, a needle was inserted into the radial artery. Arterial blood was seen to pulsate in the flash chamber. The internal guidewire was advanced easily into the radial artery. The catheter was then advanced over the wire and the needle and wire were withdrawn. The catheter was sutured in place. A ster ile tape was placed over the catheter at the insertion site. The patient tolerated the procedure without any hemodynamic compromise. At the time of procedure completion, the catheter was connected to the shelter monitor and calibrated. Appropriate waveform and blood pressure tracing was observed. Estimated blood loss is 2 mL. Procedure done under supervision of the attending hydraulic technician, Dr. Walsh. Jennifer Velasco, PGY-2
[2024-06-05 13:05] LABS: Base Excess -3 (-3-3); HCO3 26 mEq/L (20-26); O2 Saturation 97 % (91-98); PCO2 68 mmHg (32.0-48.0); PO2 121 mmHg (83-108)
--- NOTE | 2024-06-05 13:12 | PD.INTPROC ---
Procedures Procedure Date / Time 06/05/24 1312 Arterial Line Size (Gauge): 20 Bronchoscopy Bronscopy indication(s): diagnostic BAL Informed consent obtained from: patient Time out done and the following verified: correct patient, side and site, procedure and patient position Oxygen delivery: via mechanical vent. Trachea: mid appears normal and distal appears normal Paige: sharp in angle RUL & subsegmental branches: mucosa appears normal RML & subsegmental branches: mucosa appears normal RLL & subsegmental branches: mucosa appears normal JORGE & subsegmental branches: mucosa appears normal LLL & subsegmental branches: mucosa appears normal Patient tolerated procedure: well Complications: No Intubation Indication(s): acute Resp Failure Informed consent obtained: from patient Time out done, and the following verified: correct patient, side and site, procedure and patient position Sedative: etomidate Mg given: 20 Paralytic: rocuronium Mg given: 80 Laryngoscope: fiber optic video scope ET tube size: 7.5 ET tube uncuffed: No Tube secured depth (cm): 25 Tube secured location: teeth Tube placement confirmation: visualized tube passing through cords, equal breath sounds bilaterally, no breath sounds over epigastrium and confirmation by capnometry Patient tolerated procedure: well and no complications Intubation complications: none
--- NOTE | 2024-06-05 13:14 | ESPR_ITS ---
Documentation for date of: 06/05/24 Subjective Subjective Interval history: This is a 39-year-old male who presented to the ER on 27 May. Initially he presented for shortness of breath cough and general malaise. Apparently he had been feeling unwell for the last 2 to 3 weeks. He did have some nonproductive cough. Chest x-ray showed bilateral diffuse infiltrates and the medicine team was contacted. He was admitted to the floor and placed on high flow nasal cannula initially at 100% FiO2 and started on antibiotics. He was started on fluconazole as well as Levaquin given that there was a high suspicion for underlying cocci pneumonia. He has had 2 rapid responses over the last 48 hours due to hypoxia and desatting. The patient is able to tolerate minimal movements prior to desatting. Today the ICU is consulted for further evaluation. The patient is currently on 80% FiO2 he is awake alert and oriented. He states that he has shortness of breath however minimal cough. He does complain of some upper abdominal/lower rib pain which he attributes to his recent cough. He denies any chest pain. Does note that he has had some night sweats and fever over the last several days. There has been no significant improvement since arrival 3 days ago. His respiratory status remains unchanged if not slightly worse. He is currently on isolation with airborne precautions behind a closed door. At this point in time due to an abundance of caution as well as closer observation and monitoring we will transfer to the ICU for ongoing management of his acute hypoxic respiratory failure. I did discuss with the patient the probable need for intubation in the near future. He is okay with intubation 05/31- no acute overnight events, decrease in FiO2 needs, feels better with less WOB today, afebrile, 06/05-patient had been returned to the floor where initially he did well. Apparently over the last 24 to 36 hours he has had an increase in FiO2 requirements with a rapid response called last night. Rapid response called again this morning. Patient stated that he felt tired and unable to keep up. He is on 100% FiO2. He desats with minimal exertion. The decision was made to bring him to the ICU for intubation. This was discussed with the patient while he was awake and his family as well. Critical Care Note Critical care time (min.): 55 Exam Vital Signs Temp Pulse Resp BP Pulse Ox O2 Del Method O2 Flow Rate 97.5 F 147 H 14 113/56 L 94 L Mechanical Ventilation 30 06/05/24 12:00 06/05/24 13:00 06/05/24 08:00 06/05/24 13:00 06/05/24 13:00 06/05/24 13:00 06/05/24 08:00 FiO2 85 06/05/24 13:00 Narrative Exam [id number], respiratory distress, use of accessory muscles, normal body habitus HEENT-normocephalic, atraumatic, sclera icteric, oral mucosa is hydrated, neck supple, EOMI Chest-diminished lung sounds with scattered expiratory wheezes and crackles posterior bilateral, heart regular rhythmic, tachycardic, no bruits murmurs, increased work of breathing Abdomen-soft, nontender, sounds present, no rebound or guarding extremities- no edema, pulses palpable, no clubbing or cyanosis, no mottling Physical Exam Completion Physical Exam Complete?: Yes 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 06/06/24 05:10 06/06/24 10:41 Labs: Laboratory Results - last 24 hr 06/04/24 06/04/24 06/05/24 16:40 18:16 05:30 WBC 12.4 H RBC 5.50 Hgb 12.2 L Hct 36.4 L MCV 66 L MCH 22.2 L MCHC 33.5 RDW Std Deviation 41.1 Plt Count 639 H D Neut % (Auto) 89 H Lymph % (Auto) 6 L [place] % (Auto) 2 Eos % (Auto) 1 Baso % (Auto) 0 Neut # (Auto) 11.1 H Lymph # (Auto) 0.8 L [place] # (Auto) 0.2 Eos # (Auto) 0.1 Baso # (Auto) 0.0 Immature Gran # (Auto) 0.28 H Absolute Nucleated RBC 0.06 H Immature Gran % 2 H Nucleated RBC % 1 H Puncture Site Right Radial ABG pH 7.44 ABG pCO2 36 ABG pO2 80 L D ABG HCO3 24 ABG O2 Saturation 94 ABG Base Excess 0 FiO2 100 Sodium 127 L Potassium 5.1 5.0 Chloride 97 L Carbon Dioxide 24.2 Anion Gap 6 L BUN 19 Creatinine 1.1 Estim Creat Clear Calc 93.2 eGFR > 60 BUN/Creatinine Ratio 17 Glucose 86 Calculated Osmolality 256 L Calcium 8.9 Corrected Calcium 8.9 Phosphorus 3.8 Magnesium 2.2 Total Bilirubin 0.4 AST 35 H ALT 95 H Alkaline Phosphatase 79 Total Protein 8.0 Albumin 4.0 Globulin 4.0 H Albumin/Globulin Ratio 1.0 L 06/05/24 11:36 WBC RBC Hgb Hct MCV MCH MCHC RDW Std Deviation Plt Count Neut % (Auto) Lymph % (Auto) [place] % (Auto) Eos % (Auto) Baso % (Auto) Neut # (Auto) Lymph # (Auto) [place] # (Auto) Eos # (Auto) Baso # (Auto) Immature Gran # (Auto) Absolute Nucleated RBC Immature Gran % Nucleated RBC % Puncture Site Left Brachial ABG pH 7.11 L* D ABG pCO2 94 H* D ABG pO2 150 H D ABG HCO3 30 H ABG O2 Saturation 97 ABG Base Excess -2 FiO2 100 Sodium Potassium Chloride Carbon Dioxide Anion Gap BUN Creatinine Estim Creat Clear Calc eGFR BUN/Creatinine Ratio Glucose Calculated Osmolality Calcium Corrected Calcium Phosphorus Magnesium Total Bilirubin AST ALT Alkaline Phosphatase Total Protein Albumin Globulin Albumin/Globulin Ratio Assessment & Plan Additional Assessment Additional Assessment: In brief this is a 39y M admitted for SOB and acute hypoxic resp failure with b/l PNA. 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 The patient's beta D glucan did return positive. The rest of his workup is either negative or pending. He has been seen by ID and recommendations are appreciated. 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 monitor GI Transaminitis- Hep viral panel is neg, - US shows some mild hepatomegaly - ? if related to underlying pulm process GI proph- PPI Endo stable Heme Microcytic Anemia- check an iron panel. Has dropped from 12 to 10 since arrival. No active bleeding noted Thrombocytosis- likely reactive dVT proph- lovenox Leukocytosis- 2/2 underlying process ID PNA- on broad spectrum abx with cx pending - coverage changed to azithro/doxy/zosyn/fluc -> at this point in time will complete atypical coverage for 5 days - no evidence of pseudomonas therefore will stop zosyn - fu Beta D glucan levels and if neg DC fluc given that Cocci IgG and IgM are neg case d/w ICU team labs, imaging, records reviewed ~55ccmin required for eval, exam, review, intervention , discussion and formulation of POC for this critically ill pt with resp failure at high risk for further and ongoing decompensation Provider Notation Provider Notation: Although this document has been carefully reviewed, there may still be some phonetic and other typographical errors. These errors are purely grammatical due to imperfections in the software program and should not be construed in any way to compromise the substance of the patient's medical care during this visit. Thank you for the opportunity and privilege in assisting you with this patient's care and management.
[2024-06-05 13:21] LABS: Allen Test Not Performed; Inspired Oxygen, FIO2 85 %; Puncture Site Left Radial
[2024-06-05] MEDS: PROPOFOL 1,000 MG IVPB 1,000 MG/100 ML VIAL 25.583 MG IV ×3 (14:51→23:16)
[2024-06-05 19:33] LABS: Base Excess -3 (-3-3); HCO3 26 mEq/L (20-26); O2 Saturation 97 % (91-98); PCO2 64 mmHg (32.0-48.0); PO2 122 mmHg (83-108); pH, Arterial 7.22 (7.35-7.45)
[2024-06-05 19:34] LABS: Allen Test Not Performed; Inspired Oxygen, FIO2 65 %; Puncture Site Arterial Line
[2024-06-05] MEDS: fentaNYL 2,500 MCG/250 ML BAG 2,500 MCG/250 ML BAG 25 MCG IV (20:51)
[2024-06-06] VITALS (100 sets, daily range): BP systolic 72–146; BP diastolic 39–69; PULSE 81–92; RESP 30–49; TEMP 36–37.1; O2SAT 91–99; BMI 26.0
[2024-06-06] MEDS: PROPOFOL 1,000 MG IVPB 1,000 MG/100 ML VIAL 25.583 MG IV (02:27)
[2024-06-06] MEDS: Norepinephrine/D5W 8mg/250ml 8 MG/250 ML BAG 7.05 MG IV (04:10)
[2024-06-06 04:22] LABS: Base Excess -2 (-3-3); HCO3 26 mEq/L (20-26); Inspired Oxygen, FIO2 60 %; O2 Saturation 99 % (91-98); PCO2 57 mmHg (32.0-48.0); PO2 153 mmHg (83-108); pH, Arterial 7.27 (7.35-7.45)
[2024-06-06 04:33] LABS: Puncture Site Arterial Line
--- NOTE | 2024-06-06 05:00 | XR_ITS ---
Examination: AP chest single view Technique: AP portable semiupright chest single view Exam date and time: June 06, 2024 at 0547 hrs. Compared to chest films dating to May 30, 2024 Indications: History hypoxic respiratory failure secondary to severe bilateral pneumonia, status post bronchoscopy Findings: Severe bilateral lung opacity again noted, pneumonia ARDS pattern Endotracheal tube tip 4.6 cm above sunil Orogastric tube in the stomach, the tip below the level of the film No pneumothoraces Adequate bone density Impression: Severe bilateral pneumonia ARDS pattern again noted
[2024-06-06] MEDS: PIPER/TAZO 3.375 GM 3.375 GM/50 ML BAG IV ×3 (05:09→22:55)
[2024-06-06] MEDS: TRIMETHOPRIM 160 MG/SULFA 800 MG SUSP 20 ML UDC 40 ML PO ×4 (05:39→22:43)
[2024-06-06 05:46] LABS: Basophils % (Auto) 0 % (0-2.5); Eosinophils % (Auto) 0 % (0-10); Hematocrit 36.6 % (41.0-53.0); Hemoglobin 11.4 g/dL (13.5-16.0); Immature Granulocytes % (Auto) 4 % (0-0); Lymphocytes # (Auto) 0.4 Thou/mm3 (1.0-4.8); Lymphocytes % (Auto) 4 % (10-50); Mean Corpuscular HGB Conc 31.1 g/dl (31.0-37.0); Mean Corpuscular Hemoglobin 22.3 pg (25.0-35.0); Mean Corpuscular Volume 72 fL (80-100); Monocytes # (Auto) 0.1 Thou/mm3 (0.0-0.8); Monocytes % (Auto) 1 % (0-12); Neutrophils # (Auto) 9.8 Thou/mm3 (1.8-7.7); Neutrophils % (Auto) 91 % (37-80); Nucleated Red Blood Cell # 0.04 Thou/mm3 (0.00-0.00); Nucleated Red Blood Cell % 0 /100 WBC (0); Platelet Count 422 Thou/mm3 (140-440); RDW Standard Deviation 47.2 fL (35.1-43.9); Red Blood Count 5.11 Miln/mm3 (4.50-5.90); White Blood Count 10.7 Thou/mm3 (3.8-10.6)
[2024-06-06 06:45] LABS: ANA Screen, IFA NEGATIVE (NEGATIVE)
[2024-06-06 06:46] LABS: ANCA Screen NEGATIVE (NEGATIVE); Complement Component C3* 123 mg/dL (82-185); Complement Component C4c* 37 mg/dL (15-53)
[2024-06-06 06:46] LABS: Lymphocytes, Absolute 366 cells/uL (850-3900)
[2024-06-06 06:47] LABS: Myeloperoxidase Ab <1.0 AI (<1.0); Proteinase-3 Ab <1.0 AI (<1.0)
[2024-06-06 06:48] LABS: Alanine Aminotransferase 66 U/L (10-49); Albumin, Serum 3.9 gm/dL (3.5-5.0); Alkaline Phosphatase 70 U/L (46-116); Anion Gap 9 (7-16); Aspartate Amino Transferase 33 U/L (0-34); BUN/Creatinine Ratio 11 Ratio (12-20); Bilirubin,Total 0.3 mg/dL (0.3-1.2); Blood Urea Nitrogen 37 mg/dL (9-23); Calcium (Corrected) 8.1 mg/dL (8.5-10.1); Chloride 94 mMol/L (98-107); Creatinine (Component) 3.3 mg/dL (0.6-1.3); Estimated Creatinine Clearance 27.4 mL/min (>60); Glucose 117 mg/dL (74-106); Osmolality,Calculated 261 (275-295); Sodium 125 mMol/L (136-145); Total Protein 7.9 gm/dL (5.7-8.2); eGFR 24 See Note
[2024-06-06] MEDS: PROPOFOL 1,000 MG IVPB 1,000 MG/100 ML VIAL 23.024 MG IV ×2 (06:50→12:22)
[2024-06-06 06:53] LABS: Potassium 7.8 mMol/L (3.4-5.1)
[2024-06-06] MEDS: fentaNYL 2,500 MCG/250 ML BAG 2,500 MCG/250 ML BAG 25 MCG IV ×2 (07:00→18:00)
[2024-06-06 08:02] LABS: Alanine Aminotransferase 63 U/L (10-49); Albumin, Serum 3.8 gm/dL (3.5-5.0); Alkaline Phosphatase 71 U/L (46-116); Anion Gap 5 (7-16); Aspartate Amino Transferase 27 U/L (0-34); BUN/Creatinine Ratio 14 Ratio (12-20); Bilirubin,Total 0.4 mg/dL (0.3-1.2); Blood Urea Nitrogen 42 mg/dL (9-23); Calcium 7.9 mg/dL (8.3-10.6); Calcium (Corrected) 8.1 mg/dL (8.5-10.1); Carbon Dioxide 26.2 mMol/L (20.0-31.0); Chloride 96 mMol/L (98-107); Creatinine (Component) 2.9 mg/dL (0.6-1.3); Estimated Creatinine Clearance 31.2 mL/min (>60); Globulin 3.9 gm/dL (2.3-3.5); Glucose 132 mg/dL (74-106); Osmolality,Calculated 267 (275-295); Sodium 127 mMol/L (136-145); Total Protein 7.7 gm/dL (5.7-8.2); eGFR 28 See Note
[2024-06-06 08:04] LABS: Potassium 7.1 mMol/L (3.4-5.1)
[2024-06-06] MEDS: SOD POLYSTYRENE SULFON SUSP 15 GM/60 ML BTL PO (08:21)
[2024-06-06] MEDS: NICOTINE PATCH 14 MG/24 HR PATCH.TD24 TOP (08:21)
[2024-06-06] MEDS: PANTOPRAZOLE INJ 40 MG VIAL IVP (08:21)
[2024-06-06] MEDS: CALCIUM CARBONATE 600 MG TABLET NG (08:21)
[2024-06-06] MEDS: FLUCONAZOLE/NS 400 MG IVPB 400 MG/200 ML BAG 100 MG IV (08:27)
[2024-06-06] MEDS: HEPARIN SOD INJ 5000 UNIT/ML VIAL SC (08:28)
[2024-06-06] MEDS: CALCIUM GLUCONATE 10% INJ 1 GM/10 ML VIAL IV ×2 (08:48→16:29)
[2024-06-06] MEDS: DEXTROSE 50%-WATER INJ 50 ML SYRINGE 100 ML IV ×3 (08:49→16:28)
[2024-06-06] MEDS: INSULIN HUM REGULAR 1 UNIT/0.01 ML (PER UNIT) 10 UNIT IV ×2 (09:00→12:44)
[2024-06-06 10:16] LABS: Creatine Kinase 511 U/L (34-171)
[2024-06-06] MEDS: RINGERS LACTATED 500 ML 500 ML 999 ML IV ×2 (10:55→15:10)
--- NOTE | 2024-06-06 11:24 | PD.IDPROG ---
Subjective Subjective Interval history: jo ann noted. can be seen with bactrim as well as vanco. no f/u hiv result yet. so hard to treat that. pts variable status may be due to jo ann. that may be due to rx for mrsa/pjp with empiric bactrim Exam Vital Signs Temp Pulse Resp BP Pulse Ox O2 Del Method O2 Flow Rate 98.8 F 91 32 H 99/44 L 91 L Mechanical Ventilation 30 06/06/24 08:00 06/06/24 10:00 06/06/24 06:18 06/06/24 10:00 06/06/24 10:00 06/06/24 04:00 06/05/24 08:00 FiO2 60 06/06/24 09:52 Narrative Exam on vent at 45%. sedated. not interactive. dx bal pending Objective - Internal Medicine Labs 06/06/24 05:10 06/06/24 07:29 Labs: Laboratory Results - last 24 hr 05/31/24 06/02/24 06/05/24 07:58 05:12 11:36 WBC RBC Hgb Hct MCV MCH MCHC RDW Std Deviation Plt Count Neut % (Auto) Lymph % (Auto) [place] % (Auto) Eos % (Auto) Baso % (Auto) Neut # (Auto) Lymph # (Auto) [place] # (Auto) Eos # (Auto) Baso # (Auto) Immature Gran # (Auto) Absolute Nucleated RBC Immature Gran % Nucleated RBC % Total Abs Lymphocytes 366 L Puncture Site Left Brachial ABG pH 7.11 L* D ABG pCO2 94 H* D ABG pO2 150 H D ABG HCO3 30 H ABG O2 Saturation 97 ABG Base Excess -2 FiO2 100 Sodium Potassium Chloride Carbon Dioxide Anion Gap BUN Creatinine Estim Creat Clear Calc eGFR BUN/Creatinine Ratio Glucose Calculated Osmolality Calcium Corrected Calcium Total Bilirubin AST ALT Alkaline Phosphatase Total Creatine Kinase Total Protein Albumin Globulin Albumin/Globulin Ratio DANIEL Screen NEGATIVE DANIEL Titer TNP DANIEL Titer 2 TNP DANIEL Titer 3 TNP DANIEL Pattern TNP DANIEL Pattern 2 TNP DANIEL Pattern 3 TNP ANCA Screen NEGATIVE c-ANCA Titer TNP Anti-Proteinase 3 <1.0 p-ANCA Titer TNP Atypical p-ANCA Titer TNP Anti-Myeloperoxidase <1.0 Complement C3 123 Complement C4c 37 Lymphocyte Subset Cmmnt TNP % CD3 Cells 91 H Absolute CD3 Count 333 L % CD3-/CD16+/CD56+ 3 L Abs CD3-/CD16+/CD56+ <20 L % CD4 Cells 22 L Absolute CD4 Count 87 L CD4/CD8 Ratio 0.33 L % CD8 Cells 68 H Absolute CD8 Count 266 % CD19 Cells 6 Absolute CD19 Count 20 L 06/05/24 06/05/24 06/06/24 12:59 19:25 04:13 WBC RBC Hgb Hct MCV MCH MCHC RDW Std Deviation Plt Count Neut % (Auto) Lymph % (Auto) [place] % (Auto) Eos % (Auto) Baso % (Auto) Neut # (Auto) Lymph # (Auto) [place] # (Auto) Eos # (Auto) Baso # (Auto) Immature Gran # (Auto) Absolute Nucleated RBC Immature Gran % Nucleated RBC % Total Abs Lymphocytes Puncture Site Left Radial Arterial Line Arterial Line ABG pH 7.20 L 7.22 L 7.27 L ABG pCO2 68 H D 64 H 57 H ABG pO2 121 H D 122 H 153 H D ABG HCO3 26 26 26 ABG O2 Saturation 97 97 99 H ABG Base Excess -3 -3 -2 FiO2 85 65 60 Sodium Potassium Chloride Carbon Dioxide Anion Gap BUN Creatinine Estim Creat Clear Calc eGFR BUN/Creatinine Ratio Glucose Calculated Osmolality Calcium Corrected Calcium Total Bilirubin AST ALT Alkaline Phosphatase Total Creatine Kinase Total Protein Albumin Globulin Albumin/Globulin Ratio DANIEL Screen DANIEL Titer DANIEL Titer 2 DANIEL Titer 3 DANIEL Pattern DANIEL Pattern 2 DANIEL Pattern 3 ANCA Screen c-ANCA Titer Anti-Proteinase 3 p-ANCA Titer Atypical p-ANCA Titer Anti-Myeloperoxidase Complement C3 Complement C4c Lymphocyte Subset Cmmnt % CD3 Cells Absolute CD3 Count % CD3-/CD16+/CD56+ Abs CD3-/CD16+/CD56+ % CD4 Cells Absolute CD4 Count CD4/CD8 Ratio % CD8 Cells Absolute CD8 Count % CD19 Cells Absolute CD19 Count 06/06/24 06/06/24 05:10 07:29 WBC 10.7 H RBC 5.11 Hgb 11.4 L Hct 36.6 L MCV 72 L MCH 22.3 L MCHC 31.1 RDW Std Deviation 47.2 H Plt Count 422 D Neut % (Auto) 91 H Lymph % (Auto) 4 L [place] % (Auto) 1 Eos % (Auto) 0 Baso % (Auto) 0 Neut # (Auto) 9.8 H Lymph # (Auto) 0.4 L [place] # (Auto) 0.1 Eos # (Auto) 0.0 Baso # (Auto) 0.0 Immature Gran # (Auto) 0.40 H Absolute Nucleated RBC 0.04 H Immature Gran % 4 H Nucleated RBC % 0 Total Abs Lymphocytes Puncture Site ABG pH ABG pCO2 ABG pO2 ABG HCO3 ABG O2 Saturation ABG Base Excess FiO2 Sodium 125 L 127 L Potassium 7.8 H* D 7.1 H* D Chloride 94 L 96 L Carbon Dioxide 22.0 26.2 Anion Gap 9 5 L BUN 37 H 42 H Creatinine 3.3 H D 2.9 H Estim Creat Clear Calc 27.4 L 31.2 L eGFR 24 L 28 L BUN/Creatinine Ratio 11 L 14 Glucose 117 H 132 H Calculated Osmolality 261 L 267 L Calcium 8.0 L 7.9 L Corrected Calcium 8.1 L 8.1 L Total Bilirubin 0.3 0.4 AST 33 27 ALT 66 H 63 H Alkaline Phosphatase 70 71 Total Creatine Kinase 511 H Total Protein 7.9 7.7 Albumin 3.9 3.8 Globulin 4.0 H 3.9 H Albumin/Globulin Ratio 1.0 L 1.0 L DANIEL Screen DANIEL Titer DANIEL Titer 2 DANIEL Titer 3 DANIEL Pattern DANIEL Pattern 2 DANIEL Pattern 3 ANCA Screen c-ANCA Titer Anti-Proteinase 3 p-ANCA Titer Atypical p-ANCA Titer Anti-Myeloperoxidase Complement C3 Complement C4c Lymphocyte Subset Cmmnt % CD3 Cells Absolute CD3 Count % CD3-/CD16+/CD56+ Abs CD3-/CD16+/CD56+ % CD4 Cells Absolute CD4 Count CD4/CD8 Ratio % CD8 Cells Absolute CD8 Count % CD19 Cells Absolute CD19 Count ABG Interpretation ABG results: 05/27/24 05/29/24 05/29/24 23:37 10:44 22:08 ABG pH 7.51 H 7.50 H 7.48 H ABG pCO2 28 L 32 32 ABG pO2 75 L 79 L 145 H D ABG HCO3 23 25 24 ABG O2 Saturation 96 95 98 ABG Base Excess 0 2 1 05/30/24 05/31/24 06/04/24 08:45 04:54 02:10 ABG pH 7.47 H 7.45 7.45 ABG pCO2 35 38 36 ABG pO2 86 D 82 L 139 H ABG HCO3 26 26 25 ABG O2 Saturation 97 96 98 ABG Base Excess 2 2 1 06/04/24 06/05/24 06/05/24 18:16 11:36 12:59 ABG pH 7.44 7.11 L* D 7.20 L ABG pCO2 36 94 H* D 68 H D ABG pO2 80 L D 150 H D 121 H D ABG HCO3 24 30 H 26 ABG O2 Saturation 94 97 97 ABG Base Excess 0 -2 -3 06/05/24 06/06/24 19:25 04:13 ABG pH 7.22 L 7.27 L ABG pCO2 64 H 57 H ABG pO2 122 H 153 H D ABG HCO3 26 26 ABG O2 Saturation 97 99 H ABG Base Excess -3 -2 Assessment & Plan A&P Narrative pneumonia. cocci neg. procal not neg. staph vs pjp possible hiv. awaiting confirmation. . if he has hiv, gf needs to be tested. if not, then no testing for her needed. will see again Thursday. if bronch with pjp, may have to give dapsone instead. Time Spent With Patient Time: Total time spent is greater than 50% in coordination of care (as documented) at patient's floor/unit and/or counseling patient:
[2024-06-06 12:02] LABS: Albumin, Serum 3.7 gm/dL (3.5-5.0); Anion Gap 5 (7-16); BUN/Creatinine Ratio 15 Ratio (12-20); Blood Urea Nitrogen 41 mg/dL (9-23); Calcium 8.3 mg/dL (8.3-10.6); Calcium (Corrected) 8.5 mg/dL (8.5-10.1); Carbon Dioxide 25.6 mMol/L (20.0-31.0); Chloride 98 mMol/L (98-107); Creatinine (Component) 2.7 mg/dL (0.6-1.3); Estimated Creatinine Clearance 33.5 mL/min (>60); Glucose 171 mg/dL (74-106); Magnesium 3.4 mg/dL (1.6-2.6); Osmolality,Calculated 273 (275-295); Phosphorous 6.9 mg/dL (2.4-5.1); Sodium 129 mMol/L (136-145); eGFR 30 See Note
[2024-06-06 12:05] LABS: Potassium 6.3 mMol/L (3.4-5.1)
[2024-06-06] MEDS: ALBUTEROL/IPRATROPIUM (Duoneb) RT SOL 3 ML NEBU INH ×2 (12:33→16:43)
[2024-06-06] MEDS: SOD POLYSTYRENE SULFON SUSP 15 GM/60 ML BTL 45 GM PO ×2 (14:32→16:29)
--- NOTE | 2024-06-06 14:39 | ESPR_ITS ---
<Statement entered by Jennifer Velasco MD - 06/07/24 07:36> Patient was seen and examined by me personally. I have directly supervised and reviewed the above documentation by the team resident and agree with its findings with any exceptions or additional findings as below. Plan of care was discussed with the attending, Dr. Walsh. Today the patient's renal function was noted to significantly worsen, with BUN 37, creatinine 3.3, potassium 7.8. Telemonitor overnight was checked and no rhythm changes were noted, patient had remained sinus rhythm. Patient was given insulin regular 10 U, 100 ml of D50, calcium gluconate 1 gm and K rechecked, however it continued to be above 6.0 despite repeated administrations of insulin and calcium gluconate throughout the day. He was also given 45 gm kayexylate via NG x2. Etiology at this time is unknown, patient does have noted low BP the day prior to 70s/40s which may have caused prerenal WILL however did not appear to have repeated low readings. Suspect possible propofol infusion syndrome thus propofol was stopped and precedex started. Nimbex was stopped at 10 am. Continued on fentanyl and midazolam. Heparin was also stopped. Patient was given 1L of LR today. Tube feedings were also started. Decision was made to place temporary dialysis Vas-Cath in the right IJ and Nephrology was consulted for emergency dialysis for hyperkalemia. [facility] lab was called today, they had just received BAL sample today from yesterday's bronchoscopy, discussed with them to have pathologist perform staining to look for Pneumocystis. Jennifer Velasco, PGY-2 Documentation for date of: 06/06/24 Subjective Subjective Interval history: Mr. Owen is a 39-year-old male with no known previous past medical history who presented to [facility] on 05/27/2024 with a chief complaint of shortness of breath and cough. Patient had exhibited symptoms of chills, body aches, generalized weakness, fever, and night sweats progressively worsening over the prior weeks. He was admitted and initiated on empiric treatment for community-acquired pneumonia and cocci pneumonia, although cocci IgM returned negative twice this admission. Over the course of his hospitalization patient's oxygen requirements continued to worsen as he became more hypoxic worse with activity and movement. He had intermittent fevers and sinus tachycardia. All of the patient's culture testing has been negative thus far, including blood, urine, sputum, and MRSA screening. HIV test returned equivocal, possible positive and was sent out for confirmatory testing. Primary team had thomas consulted Dr. Anderson, Film Cleaner for recommendations. There is a suspicion for pneumocystis pneumonia given the preliminary result therefore the patient was started on TMP-SMX. Beta-(1,3)-D-glucan testing was also positive (>500). 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. He did endorse a history of incarceration in 2006. TB quantiferon was indeterminate on 05/31. He denies any recent travel, sick contacts, or contact with anyone that may have had recent international travel. Patient last was in ICU 05/30/2024-05/31/2024 for increased work of breathing on HiFlow and fever, was started on steroids and monitored closely but no intubation at that time. He was downgraded to floors after decrease in FiO2 needs and improvement in respiratory status. 06/05/2024 rapid response was called around 10:15 am for patient desaturation to 70s while on HiFlow 30L at 100% FiO2, which occurred at least twice this morning while patient was moving. Patient this morning was reporting increased work of breathing and dyspnea upon any movement sitting up or out of the bed to urinate. Patient also had rapid response for similar episodes last night. When examined he appeared laying flat in the bed with nonlabored breathing, however is diaphoretic and repeatedly complaining of dyspnea. Decision was made to upgrade patient to ICU again for intubation due to impending respiratory failure and bronchoscopy for further diagnotic data. 06/06/2024: Patient was seen and examined by the bedside. Yesterday patient was intubated, was started on sedation and paralytics. Today, his oxygen requirements decreased to FiO2 40%, cistracurium was discontinued. Propofol and heparin were discontinued due to concern for WILL. Patient continues to have urine output >100 ml/hr. Patossium level in the AM was >7, patient received insulin 10Ux2, kayexalate, calcium gluconate, repeat K is pending. Will continue with current antibiotic regimen and steroids. BAL cultures and fungal cultures results are pending. Contacte lab for possibility of silver stain of BAL samples. Confirmatory HIV test is pending. We spoke to the decision maker Francesca Owen regarding the transfer. At this time patient condition does not require a transfer and patient is under adequate care at [facility]. The process of transfer was explained to the Francesca and she does not requesting transfer at the moment. Patient's condition and plan of treatment were explained to her, all questions were answered. Later in the day, patient's potassium levels continues to be increased. He received insulin, kayexalate, albuterol again. Dr. Song was consulted, pending recommendations. Francesca Owen was contacted, she was given update on his condition and she was made aware that in case his potassium continues to be elevated, it would require emergent hemodialysis. Consent for temporary dialysis catheter placement was obtained. Procedure was explained to the desicion maker. His mother was also at the bedside, she was also given updates on the patient's condition using sales and marketing coordinator service. All question were answered. Exam Vital Signs Temp Pulse Resp BP Pulse Ox O2 Del Method O2 Flow Rate 97.3 F 86 32 H 104/50 L 94 L Mechanical Ventilation 30 06/06/24 12:00 06/06/24 14:22 06/06/24 12:41 06/06/24 14:22 06/06/24 14:22 06/06/24 04:00 06/05/24 08:00 FiO2 40 06/06/24 14:22 Narrative Exam Gen: Well-developed and well-nourished. Sedated. HEENT: NCAT, PERRLA, EOMI, MMM, anicteric conjunctivae. CVS: normal S1 and S2. RRR. No M/R/G. Resp: Coarse breathing bilaterally. Abd: soft, non-tender, non-distended. BS+ in all 4 quadrants. MSK: Good ROM in BUE & BLE. No edema or rash. Multiple tattoos present. Neuro: No gross focal neurological finding. Psych: Impossible to assess. Objective Labs 06/06/24 05:10 06/06/24 16:23 Labs: Laboratory Results - last 24 hr 05/31/24 06/02/24 06/05/24 07:58 05:12 19:25 WBC RBC Hgb Hct MCV MCH MCHC RDW Std Deviation Plt Count Neut % (Auto) Lymph % (Auto) Rankin % (Auto) Eos % (Auto) Baso % (Auto) Neut # (Auto) Lymph # (Auto) Rankin # (Auto) Eos # (Auto) Baso # (Auto) Immature Gran # (Auto) Absolute Nucleated RBC Immature Gran % Nucleated RBC % Total Abs Lymphocytes 366 L Puncture Site Arterial Line ABG pH 7.22 L ABG pCO2 64 H ABG pO2 122 H ABG HCO3 26 ABG O2 Saturation 97 ABG Base Excess -3 FiO2 65 Sodium Potassium Chloride Carbon Dioxide Anion Gap BUN Creatinine Estim Creat Clear Calc eGFR BUN/Creatinine Ratio Glucose Calculated Osmolality Calcium Corrected Calcium Phosphorus Magnesium Total Bilirubin AST ALT Alkaline Phosphatase Total Creatine Kinase Total Protein Albumin Globulin Albumin/Globulin Ratio DANIEL Screen NEGATIVE DANIEL Titer TNP DANIEL Titer 2 TNP DANIEL Titer 3 TNP DANIEL Pattern TNP DANIEL Pattern 2 TNP DANIEL Pattern 3 TNP ANCA Screen NEGATIVE c-ANCA Titer TNP Anti-Proteinase 3 <1.0 p-ANCA Titer TNP Atypical p-ANCA Titer TNP Anti-Myeloperoxidase <1.0 Complement C3 123 Complement C4c 37 Lymphocyte Subset Cmmnt TNP % CD3 Cells 91 H Absolute CD3 Count 333 L % CD3-/CD16+/CD56+ 3 L Abs CD3-/CD16+/CD56+ <20 L % CD4 Cells 22 L Absolute CD4 Count 87 L CD4/CD8 Ratio 0.33 L % CD8 Cells 68 H Absolute CD8 Count 266 % CD19 Cells 6 Absolute CD19 Count 20 L 06/06/24 06/06/24 06/06/24 04:13 05:10 07:29 WBC 10.7 H RBC 5.11 Hgb 11.4 L Hct 36.6 L MCV 72 L MCH 22.3 L MCHC 31.1 RDW Std Deviation 47.2 H Plt Count 422 D Neut % (Auto) 91 H Lymph % (Auto) 4 L Rankin % (Auto) 1 Eos % (Auto) 0 Baso % (Auto) 0 Neut # (Auto) 9.8 H Lymph # (Auto) 0.4 L Rankin # (Auto) 0.1 Eos # (Auto) 0.0 Baso # (Auto) 0.0 Immature Gran # (Auto) 0.40 H Absolute Nucleated RBC 0.04 H Immature Gran % 4 H Nucleated RBC % 0 Total Abs Lymphocytes Puncture Site Arterial Line ABG pH 7.27 L ABG pCO2 57 H ABG pO2 153 H D ABG HCO3 26 ABG O2 Saturation 99 H ABG Base Excess -2 FiO2 60 Sodium 125 L 127 L Potassium 7.8 H* D 7.1 H* D Chloride 94 L 96 L Carbon Dioxide 22.0 26.2 Anion Gap 9 5 L BUN 37 H 42 H Creatinine 3.3 H D 2.9 H Estim Creat Clear Calc 27.4 L 31.2 L eGFR 24 L 28 L BUN/Creatinine Ratio 11 L 14 Glucose 117 H 132 H Calculated Osmolality 261 L 267 L Calcium 8.0 L 7.9 L Corrected Calcium 8.1 L 8.1 L Phosphorus Magnesium Total Bilirubin 0.3 0.4 AST 33 27 ALT 66 H 63 H Alkaline Phosphatase 70 71 Total Creatine Kinase 511 H Total Protein 7.9 7.7 Albumin 3.9 3.8 Globulin 4.0 H 3.9 H Albumin/Globulin Ratio 1.0 L 1.0 L DANIEL Screen DANIEL Titer DANIEL Titer 2 DANIEL Titer 3 DANIEL Pattern DANIEL Pattern 2 DANIEL Pattern 3 ANCA Screen c-ANCA Titer Anti-Proteinase 3 p-ANCA Titer Atypical p-ANCA Titer Anti-Myeloperoxidase Complement C3 Complement C4c Lymphocyte Subset Cmmnt % CD3 Cells Absolute CD3 Count % CD3-/CD16+/CD56+ Abs CD3-/CD16+/CD56+ % CD4 Cells Absolute CD4 Count CD4/CD8 Ratio % CD8 Cells Absolute CD8 Count % CD19 Cells Absolute CD19 Count 06/06/24 10:41 WBC RBC Hgb Hct MCV MCH MCHC RDW Std Deviation Plt Count Neut % (Auto) Lymph % (Auto) Rankin % (Auto) Eos % (Auto) Baso % (Auto) Neut # (Auto) Lymph # (Auto) Rankin # (Auto) Eos # (Auto) Baso # (Auto) Immature Gran # (Auto) Absolute Nucleated RBC Immature Gran % Nucleated RBC % Total Abs Lymphocytes Puncture Site ABG pH ABG pCO2 ABG pO2 ABG HCO3 ABG O2 Saturation ABG Base Excess FiO2 Sodium 129 L Potassium 6.3 H* D Chloride 98 Carbon Dioxide 25.6 Anion Gap 5 L BUN 41 H Creatinine 2.7 H Estim Creat Clear Calc 33.5 L eGFR 30 L BUN/Creatinine Ratio 15 Glucose 171 H Calculated Osmolality 273 L Calcium 8.3 Corrected Calcium 8.5 Phosphorus 6.9 H Magnesium 3.4 H Total Bilirubin AST ALT Alkaline Phosphatase Total Creatine Kinase Total Protein Albumin 3.7 Globulin Albumin/Globulin Ratio DANIEL Screen DANIEL Titer DANIEL Titer 2 DANIEL Titer 3 DANIEL Pattern DANIEL Pattern 2 DANIEL Pattern 3 ANCA Screen c-ANCA Titer Anti-Proteinase 3 p-ANCA Titer Atypical p-ANCA Titer Anti-Myeloperoxidase Complement C3 Complement C4c Lymphocyte Subset Cmmnt % CD3 Cells Absolute CD3 Count % CD3-/CD16+/CD56+ Abs CD3-/CD16+/CD56+ % CD4 Cells Absolute CD4 Count CD4/CD8 Ratio % CD8 Cells Absolute CD8 Count % CD19 Cells Absolute CD19 Count ABG Interpretation ABG results: 05/27/24 05/29/24 05/29/24 23:37 10:44 22:08 ABG pH 7.51 H 7.50 H 7.48 H ABG pCO2 28 L 32 32 ABG pO2 75 L 79 L 145 H D ABG HCO3 23 25 24 ABG O2 Saturation 96 95 98 ABG Base Excess 0 2 1 05/30/24 05/31/24 06/04/24 08:45 04:54 02:10 ABG pH 7.47 H 7.45 7.45 ABG pCO2 35 38 36 ABG pO2 86 D 82 L 139 H ABG HCO3 26 26 25 ABG O2 Saturation 97 96 98 ABG Base Excess 2 2 1 06/04/24 06/05/24 06/05/24 18:16 11:36 12:59 ABG pH 7.44 7.11 L* D 7.20 L ABG pCO2 36 94 H* D 68 H D ABG pO2 80 L D 150 H D 121 H D ABG HCO3 24 30 H 26 ABG O2 Saturation 94 97 97 ABG Base Excess 0 -2 -3 06/05/24 06/06/24 19:25 04:13 ABG pH 7.22 L 7.27 L ABG pCO2 64 H 57 H ABG pO2 122 H 153 H D ABG HCO3 26 26 ABG O2 Saturation 97 99 H ABG Base Excess -3 -2 Quality Measures Quality Measures sepsis Current suspected stage: sepsis Possible source: pulmonary, GI tract/intra-abdominal, genitourinary and skin/soft tissue Blood cultures ordered: yes Antibiotic ordered: Yes Assessment & Plan Assessment Current Active Medications: Generic Name Dose Route Start Last Admin Trade Name Freq PRN Reason Stop Dose Admin Acetaminophen 1,000 mg 05/29/24 15:38 05/30/24 17:57 Acetaminophen 500 Mg Tablet PO 06/26/24 12:10 1,000 mg Q6H PRN Administration Pain 1-3 and Fever >101.5 Albuterol/Ipratropium 3 ml 06/05/24 11:40 06/06/24 12:33 Albuterol/Ipratropium (Duoneb) Rt Munira 3 Ml Nebu INH 07/05/24 14:59 3 ml Q4HRRT PRN Administration Wheezing Calcium Carbonate 600 mg 06/06/24 09:00 06/06/24 08:21 Calcium Carbonate 600 Mg Tablet NG 07/06/24 08:59 600 mg QDAY JUAN JOSE Administration Chlorpromazine HCl 25 mg 06/04/24 14:15 06/05/24 05:16 Chlorpromazine 25 Mg Tablet PO 07/04/24 14:14 25 mg TID JUAN JOSE Administration Dextrose 25 ml 06/06/24 08:20 Dextrose 50%-Water Inj 50 Ml Syringe IV 07/06/24 08:19 Q15MIN PRN BG 50-70 responsive npo pt Dextrose 50 ml 06/06/24 08:20 Dextrose 50%-Water Inj 50 Ml Syringe IV 07/06/24 08:19 Q15MIN PRN BG <50 OR BG <70 & pt unresponsive Glucagon 1 mg 06/06/24 08:20 Glucagon Inj 1 Mg Vial IM Q15MIN PRN BG <70, and no IV access Heparin Sodium (Porcine) 5,000 unit 05/27/24 21:00 06/06/24 08:28 Heparin Sod Inj 5000 Unit/Ml Vial SC 06/10/24 20:59 5,000 unit Q12H JUAN JOSE Administration Piperacillin/Tazobactam/Dextrose 3.375 gm in 50 mls @ 12.5 mls/hr 06/01/24 14:00 06/06/24 14:32 Zosyn IV 06/08/24 13:59 12.5 mls/hr Q8HR JUAN JOSE Administration Protocol Fentanyl Citrate 2,500 mcg in 250 mls @ 2.5 mls/hr 06/05/24 10:38 06/06/24 12:00 Sublimaze Inj 2,500 Mcg/250 Ml Bag IV 06/10/24 10:37 250 mcg/hr .Q24H PRN 25 mls/hr PER PROTOCOL Titration Protocol 25 MCG/HR Cisatracurium Besylate 200 mg/ 520 mls @ 13.303 mls/hr 06/05/24 12:05 06/06/24 10:08 Sodium Chloride IV 07/05/24 12:04 0 mcg/kg/min .Q24H PRN 0 mls/hr Per Protocol Titration Protocol 1 MCG/KG/MIN Midazolam HCl 100 mg in 100 mls @ 1 mls/hr 06/05/24 12:15 06/06/24 12:00 Versed Pf Inj In Ns Premix IV 06/10/24 12:14 3 mg/hr .Q24H PRN 3 mls/hr PER PROTOCOL Titration Protocol 1 MG/HR Norepinephrine/Dextrose 8 mg in 250 mls @ 7.05 mls/hr 06/06/24 04:07 06/06/24 12:00 Levophed In D5w 8mg/250ml IV 07/06/24 04:06 0.01 mcg/kg/min .Q24H PRN 1.41 mls/hr PER PROTOCOL Titration Protocol 0.05 MCG/KG/MIN Fluconazole 400 mg in 200 mls @ 100 mls/hr 06/06/24 07:30 06/06/24 08:27 Diflucan/Ns Ivpb IV 06/13/24 07:29 100 mls/hr QDAY JUAN JOSE Administration Dexmedetomidine/Sodium Chloride 400 mcg in 100 mls @ 3.76 mls/hr 06/06/24 14:33 Precedex Ivpb IV 07/06/24 14:32 .Q24H PRN Per PROTOCOL Protocol 0.2 MCG/KG/HR Lactated Ringer's 500 mls @ 999 mls/hr 06/06/24 14:35 Lactated Ringers IV 06/06/24 15:05 .Q31M ONE Methylprednisolone Sodium Succinate 40 mg 06/05/24 13:21 06/06/24 14:32 Methylprednisolone Sod Succ 40 Mg Vial IVP 06/12/24 13:20 40 mg Q8HR JUAN JOSE Administration Nicotine 14 mg 05/28/24 09:00 06/06/24 08:21 Nicotine Patch 14 Mg/24 Hr Patch.Td24 TOP 06/27/24 08:59 14 mg QDAY JUAN JOSE Administration Ondansetron HCl 4 mg 05/29/24 21:51 06/04/24 17:44 Ondansetron Inj 2 Mg/Ml Inj 2 Ml IV 06/28/24 21:50 4 mg Q6HR PRN Administration NAUSEA OR VOMITING Protocol Pantoprazole Sodium 40 mg 06/06/24 09:00 06/06/24 08:21 Pantoprazole Inj 40 Mg Vial IVP 07/06/24 08:59 40 mg QDAY JUAN JOSE Administration Promethazine HCl/Dextromethorphan 5 ml 05/28/24 16:56 05/30/24 02:34 Promethazine/Dm Syrup 5 Ml Dose PO 06/27/24 16:55 5 ml Q4HR PRN Administration COUGH Protocol Sennosides 1 tab 05/27/24 12:11 Senna Tablet PO 06/26/24 12:10 QDAY PRN constipation Protocol Sodium Polystyrene Sulfonate 15 gm 06/05/24 09:00 06/06/24 08:21 Sod Polystyrene Sulfon Susp 15 Gm/60 Ml Btl PO 07/05/24 08:59 15 gm QDAY JUAN JOSE Administration Trimethoprim/Sulfamethoxazole 40 ml 06/05/24 12:00 06/06/24 12:39 Trimethoprim 160 Mg/Sulfa 800 Mg Susp 20 Ml Udc PO 06/12/24 11:59 40 ml QID JUAN JOSE Administration Plan This is a 39-year-old gentleman with no known previous past medical history who initially presented to [facility] on 05/27/2024 with a chief complaint of shortness of breath and cough, and recent history of chills, body aches, generalized weakness, fever, and night sweats progressively worsening over the prior weeks, subsequently admitted for acute hypoxic respiratory failure secondary to bilateral community-acquired pneumonia. He has had multiple rapid response alerts during the course of hospitalization for increasing oxygen requirements and recurrent fevers. He was monitored in ICU from 05/30-05/31, now currently upgraded to ICU again 06/05 for intubation and bronchoscopy. NEURO Prior to intubation, patient is awake, alert, and oriented x3, following commands, conversational. #No active problem, sedated -Fentanyl, midazolam and precedex with a RASS goal of -4 - Propofol discontinued -Cisatracurium was discontinued CARDIO #Septic shock #Sinus tachycardia, resolved Most likely shock is due to sepsis landaverde to bilateral pneumonia. Most likely secondary to respiratory distress and increased work of breathing. BP has been maintaining MAP >65. -Continuous telemetry -Echo ordered by primary team is pending -Patient was started on norepinephrine last night, down titrated to 0.01 PULM #Acute hypoxic respiratory failure Secondary to #Bilateral pneumonia Patient presented with dyspnea and cough, requiring 4L NC on first ED evaluation, and history of chills, body aches, generalized weakness, fever, and night sweats progressively worsening over the prior weeks. Over hospitalization patient supplemental O2 requirements increased, requiring HiFlow by the second day. He has been treated empirically for community acquired pneumonia, but continues to have worsening respiratory status. Follow up CXRs continue to show worsening fluffy bilateral extensive infiltrates. Ddx: Infectious pneumonia bacterial vs fungal vs less likely viral, autoimmune causes, drug-induced causes. Negative studies: Cocci IgM and IgG, Hepatitis panel, Syphilis, Legionella, H.flu, N.meningitidis, Strep B, Strep pneumoniae, COVID, RSV, Flu A & B. Indeterminate: TB quantiferon GOLD Positive: Beta-(1,3)-D-Glucan 06/05/2024 Bronchoscopy completed today, which showed normal-appearing mucosa and no mucous plugging, hemorrhage, or friability bilaterally. Tx: -Continue Bactrim, Zosyn, fluconazole -Bronchoalveolar lavage washings culture pending -Fungal culture pending -BAL cytology sent to Pathology -Contacted lab regarding silver stain of BAL culture, pending answer from pathologist -Victor Hugo q4h as needed, per RT patient has not had much secretions #ARDS Patient continues to have increased oxygen demands with worsening bilateral infiltrates on CXR. Will maintain ARDS ventilation protocol. Ddx: In setting of worsening pneumonia. In the morning 06/06, vent settings were: VT 486, RR32, FiO2 60, downtitrated to the FiO2 40%. ABG: pH 7.24, pCO2 57, pO2 153. P:F ratio is 153/0.6=255. Mild ARDS. Tx: -Disontinued neuromuscular blockade -Will try to downtitrate FiO2 -Low tidal volume ventilation, will try to keep TV ~380 according to 6 mL/kg predicted body weight -Maintain peak plateau <30 -Permissive hypercapnia -Follow up ABG -Methylprednisolone 40 mg q8h -Will consider proning patient GI Prophylaxis: Pantoprazole 40 mg IV qday #Elevated LFTs Mildly elevated, liver US 05/30/2024 showed normal gallbladder and hepatomegaly without lesions or evidence of obstructions. Hep panel negative. -Continue monitoring NEPHRO #WILL #Hyperkalemia #Hyperphosphatemia #Hyponatremia #Non-anion gap metabolic acidosis Ddx: Prerenal WILL due to hypotension vs possible rhabdomyolysis vs drug toxicity (zosyn, vancomycin) Urine output is >100 ml/hr, urine is yellow and clear. Possible underlying SIADH. CK level 06/06: 511. Phosphate 06/06: 6.9 PAtient received insulin 10U 2 times, had 1 duoneb inhalation. Plan: -Monitor CMP, repeat potassium - Kayexalate 15 mg qday + 45 mg once - Insulin 10U +dextrose x2 - propofol discontinues due to concern for BRAYAN - propofol and heparin discontinued due to concern for WILL URO #No active problems -Tijerina placed 06/05/2024 HEME #Microcytic anemia Clinically no evidence of bleeding. Iron panel shows iron 17, TIBC 262, iron saturation 6, unsaturated iron binding 245. Peripheral blood film confirms microcytic hypochromic anemia with target cells. Patient hemoglobins stable, does not require transfusion at the moment, PT, INR, PTT within normal range. Plan: -Monitor H&H. Transfusing for Hgb <7 #Leukocytosis In the setting of likely infection and corticosteroids. Plan: -Treatment of pneumonia as above #Thrombocytosis Likely reactive. -Continue to monitor ENDO #No active problems ID #Bilateral pneumonia of unknown etiology Negative studies: Cocci IgM and IgG, Hepatitis panel, Syphilis, Legionella, H.flu, N.meningitidis, Strep B, Strep pneumoniae, COVID, RSV, Flu A & B. Indeterminate: TB quantiferon GOLD Positive: Beta-(1,3)-D-Glucan Ddx: Bacterial versus fungal versus viral. 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 Patient completed 5 day course of azithromycin. -Continue Zosyn, Bactrim, fluconazole -PPD placed 06/04/2024 at 18:47, read due at 06/06/2024 18:47 right forearm -ID following, recommendations appreciated MSK #No active problems SKIN #No active problems DVT prophylaxis: none GI prophylaxis: Pantoprazole 40 mg IV qday Diet: tube feeds Nepro Tijerina: Present (06/05- ) Lines: Peripheral IV, Right radial arterial line Antibiotics: Zosyn, Bactrim, fluconazole CODE STATUS: FULL Reason for ICU care: Acute hypoxic respiratory failure secondary to bilateral pneumonia/ARDS Plan of care discussed with attending Dr. Walsh, PGY-[address] Velasco and PGY-[address] Santos. Denise Pinzon MD, PGY 1.
[2024-06-06] MEDS: DEXMEDETOMIDINE 400 MCG IVPB 400 MCG/100 ML BAG IV (14:50)
--- NOTE | 2024-06-06 15:00 | PC.SS ---
Update: Patient is currently intubated/sedated. Patient receiving pressors. Patient receiving IV antibiotics. Feedings on hold. Tijerina catheter is in place.
--- NOTE | 2024-06-06 15:04 | PD.INTPROG ---
Documentation for date of: 06/06/24 Subjective Subjective Interval history: This is a 39-year-old male who presented to the ER on 27 May. Initially he presented for shortness of breath cough and general malaise. Apparently he had been feeling unwell for the last 2 to 3 weeks. He did have some nonproductive cough. Chest x-ray showed bilateral diffuse infiltrates and the medicine team was contacted. He was admitted to the floor and placed on high flow nasal cannula initially at 100% FiO2 and started on antibiotics. He was started on fluconazole as well as Levaquin given that there was a high suspicion for underlying cocci pneumonia. He has had 2 rapid responses over the last 48 hours due to hypoxia and desatting. The patient is able to tolerate minimal movements prior to desatting. Today the ICU is consulted for further evaluation. The patient is currently on 80% FiO2 he is awake alert and oriented. He states that he has shortness of breath however minimal cough. He does complain of some upper abdominal/lower rib pain which he attributes to his recent cough. He denies any chest pain. Does note that he has had some night sweats and fever over the last several days. There has been no significant improvement since arrival 3 days ago. His respiratory status remains unchanged if not slightly worse. He is currently on isolation with airborne precautions behind a closed door. At this point in time due to an abundance of caution as well as closer observation and monitoring we will transfer to the ICU for ongoing management of his acute hypoxic respiratory failure. I did discuss with the patient the probable need for intubation in the near future. He is okay with intubation 05/31- no acute overnight events, decrease in FiO2 needs, feels better with less WOB today, afebrile, 06/05-patient had been returned to the floor where initially he did well. Apparently over the last 24 to 36 hours he has had an increase in FiO2 requirements with a rapid response called last night. Rapid response called again this morning. Patient stated that he felt tired and unable to keep up. He is on 100% FiO2. He desats with minimal exertion. The decision was made to bring him to the ICU for intubation. This was discussed with the patient while he was awake and his family as well. 06/06- overnight pt remained on NMB, versed/prop/fent. brisk UOP >100cc/hr , afebrile, labs this AM showed a K of 7.8 for which he received insulin/Ca/D50/kayexolate Critical Care Note Critical care time (min.): 57 Exam Vital Signs Temp Pulse Resp BP Pulse Ox O2 Del Method O2 Flow Rate 97.3 F 86 32 H 104/50 L 94 L Mechanical Ventilation 30 06/06/24 12:00 06/06/24 14:22 06/06/24 12:41 06/06/24 14:22 06/06/24 14:22 06/06/24 04:00 06/05/24 08:00 FiO2 40 06/06/24 14:22 Narrative Exam Gen- intubated, sedated, on NMB, nl body habitus HEENT- NC/AT, mucosa hydrated, sclera anicteric, PERRL, ETT/OGT in place Chest- diminished lung rosas, no wheeze, HRRR, no increase in WOB Abd- s/nt/bs+ Ext- no edema, no mottling, no clubbing, no cyanosis, on NMB Vent AC VC Drips levo fent prop versed nimbex Physical Exam Completion Physical Exam Complete?: Yes Objective - Coverage Specialist Labs 06/06/24 05:10 06/06/24 10:41 Labs: Laboratory Results - last 24 hr 05/31/24 06/02/24 06/05/24 07:58 05:12 19:25 WBC RBC Hgb Hct MCV MCH MCHC RDW Std Deviation Plt Count Neut % (Auto) Lymph % (Auto) Martin % (Auto) Eos % (Auto) Baso % (Auto) Neut # (Auto) Lymph # (Auto) Martin # (Auto) Eos # (Auto) Baso # (Auto) Immature Gran # (Auto) Absolute Nucleated RBC Immature Gran % Nucleated RBC % Total Abs Lymphocytes 366 L Puncture Site Arterial Line ABG pH 7.22 L ABG pCO2 64 H ABG pO2 122 H ABG HCO3 26 ABG O2 Saturation 97 ABG Base Excess -3 FiO2 65 Sodium Potassium Chloride Carbon Dioxide Anion Gap BUN Creatinine Estim Creat Clear Calc eGFR BUN/Creatinine Ratio Glucose Calculated Osmolality Calcium Corrected Calcium Phosphorus Magnesium Total Bilirubin AST ALT Alkaline Phosphatase Total Creatine Kinase Total Protein Albumin Globulin Albumin/Globulin Ratio DANIEL Screen NEGATIVE DANIEL Titer TNP DANIEL Titer 2 TNP DANIEL Titer 3 TNP DANIEL Pattern TNP DANIEL Pattern 2 TNP DANIEL Pattern 3 TNP ANCA Screen NEGATIVE c-ANCA Titer TNP Anti-Proteinase 3 <1.0 p-ANCA Titer TNP Atypical p-ANCA Titer TNP Anti-Myeloperoxidase <1.0 Complement C3 123 Complement C4c 37 Lymphocyte Subset Cmmnt TNP % CD3 Cells 91 H Absolute CD3 Count 333 L % CD3-/CD16+/CD56+ 3 L Abs CD3-/CD16+/CD56+ <20 L % CD4 Cells 22 L Absolute CD4 Count 87 L CD4/CD8 Ratio 0.33 L % CD8 Cells 68 H Absolute CD8 Count 266 % CD19 Cells 6 Absolute CD19 Count 20 L 06/06/24 06/06/24 06/06/24 04:13 05:10 07:29 WBC 10.7 H RBC 5.11 Hgb 11.4 L Hct 36.6 L MCV 72 L MCH 22.3 L MCHC 31.1 RDW Std Deviation 47.2 H Plt Count 422 D Neut % (Auto) 91 H Lymph % (Auto) 4 L Martin % (Auto) 1 Eos % (Auto) 0 Baso % (Auto) 0 Neut # (Auto) 9.8 H Lymph # (Auto) 0.4 L Martin # (Auto) 0.1 Eos # (Auto) 0.0 Baso # (Auto) 0.0 Immature Gran # (Auto) 0.40 H Absolute Nucleated RBC 0.04 H Immature Gran % 4 H Nucleated RBC % 0 Total Abs Lymphocytes Puncture Site Arterial Line ABG pH 7.27 L ABG pCO2 57 H ABG pO2 153 H D ABG HCO3 26 ABG O2 Saturation 99 H ABG Base Excess -2 FiO2 60 Sodium 125 L 127 L Potassium 7.8 H* D 7.1 H* D Chloride 94 L 96 L Carbon Dioxide 22.0 26.2 Anion Gap 9 5 L BUN 37 H 42 H Creatinine 3.3 H D 2.9 H Estim Creat Clear Calc 27.4 L 31.2 L eGFR 24 L 28 L BUN/Creatinine Ratio 11 L 14 Glucose 117 H 132 H Calculated Osmolality 261 L 267 L Calcium 8.0 L 7.9 L Corrected Calcium 8.1 L 8.1 L Phosphorus Magnesium Total Bilirubin 0.3 0.4 AST 33 27 ALT 66 H 63 H Alkaline Phosphatase 70 71 Total Creatine Kinase 511 H Total Protein 7.9 7.7 Albumin 3.9 3.8 Globulin 4.0 H 3.9 H Albumin/Globulin Ratio 1.0 L 1.0 L DANIEL Screen DANIEL Titer DANIEL Titer 2 DANIEL Titer 3 DANIEL Pattern DANIEL Pattern 2 DANIEL Pattern 3 ANCA Screen c-ANCA Titer Anti-Proteinase 3 p-ANCA Titer Atypical p-ANCA Titer Anti-Myeloperoxidase Complement C3 Complement C4c Lymphocyte Subset Cmmnt % CD3 Cells Absolute CD3 Count % CD3-/CD16+/CD56+ Abs CD3-/CD16+/CD56+ % CD4 Cells Absolute CD4 Count CD4/CD8 Ratio % CD8 Cells Absolute CD8 Count % CD19 Cells Absolute CD19 Count 06/06/24 10:41 WBC RBC Hgb Hct MCV MCH MCHC RDW Std Deviation Plt Count Neut % (Auto) Lymph % (Auto) Martin % (Auto) Eos % (Auto) Baso % (Auto) Neut # (Auto) Lymph # (Auto) Martin # (Auto) Eos # (Auto) Baso # (Auto) Immature Gran # (Auto) Absolute Nucleated RBC Immature Gran % Nucleated RBC % Total Abs Lymphocytes Puncture Site ABG pH ABG pCO2 ABG pO2 ABG HCO3 ABG O2 Saturation ABG Base Excess FiO2 Sodium 129 L Potassium 6.3 H* D Chloride 98 Carbon Dioxide 25.6 Anion Gap 5 L BUN 41 H Creatinine 2.7 H Estim Creat Clear Calc 33.5 L eGFR 30 L BUN/Creatinine Ratio 15 Glucose 171 H Calculated Osmolality 273 L Calcium 8.3 Corrected Calcium 8.5 Phosphorus 6.9 H Magnesium 3.4 H Total Bilirubin AST ALT Alkaline Phosphatase Total Creatine Kinase Total Protein Albumin 3.7 Globulin Albumin/Globulin Ratio DANIEL Screen DANIEL Titer DANIEL Titer 2 DANIEL Titer 3 DANIEL Pattern DANIEL Pattern 2 DANIEL Pattern 3 ANCA Screen c-ANCA Titer Anti-Proteinase 3 p-ANCA Titer Atypical p-ANCA Titer Anti-Myeloperoxidase Complement C3 Complement C4c Lymphocyte Subset Cmmnt % CD3 Cells Absolute CD3 Count % CD3-/CD16+/CD56+ Abs CD3-/CD16+/CD56+ % CD4 Cells Absolute CD4 Count CD4/CD8 Ratio % CD8 Cells Absolute CD8 Count % CD19 Cells Absolute CD19 Count Assessment & Plan Additional Assessment Additional Assessment: In brief this is a 39y M admitted for SOB and acute hypoxic resp failure with b/l PNA. 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 The patient's beta D glucan did return positive. The rest of his workup is either negative or pending. He has been seen by ID and recommendations are appreciated. Bronchoscopy performed 06/05 and BAL fluid was rather bland in appearance without evidence of diffuse alveolar hemorrhage -> cx pending - on zosyn and bactrim - solumedrol 40mg q6 - have been able to go down to 40% FiO2 today however was unable to tolerate LTVV with 6cc/kg yesterday - mild resp acidosis present - vasculitic workup is negative - check silver stain on BAL ARDS- unable to tolerate low tidal volume ventilation, - plateaus less than 30 -He has been placed on deep sedation and neuromuscular blockade will be initiated yesterday -PF ratio of 150 -> 255 today - maintain sats >88% - permissive hypercapnea - CXR today shows some improvement in b/l infiltrate - BAL sample shows no bacteria with mult WBC - mult vent changes made Renal HypoNa- 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 monitor - no significant changes HyperK- pts K jumped to 7.8 this AM - tx with insulin/D50/Ca and kayexolate - repeat shows continued elevation therefore given another round of kayexolate 45g - ? BRAYAN vs heparin vs bactrim -> prop and heparin stopped - repeat BMP WILL- prerenal v intrarenal - net neg today - will give small bolus of fluid and start hydration via OGT - check UA GI Transaminitis- Hep viral panel is neg, - US shows some mild hepatomegaly - ? if related to underlying pulm process - trending back down GI proph- PPI Endo Hyperglycemia- 2/2 steroids, monitor Heme Microcytic Anemia- check an iron panel. Has dropped from 12 to 10 since arrival. No active bleeding noted - iron panel shows iron def Thrombocytosis- likely reactive dVT proph- lovenox Leukocytosis- 2/2 underlying process ID PNA- on broad spectrum abx with cx pending - cx are NTD - seen by ID - on bactrim and zosyn - PPD neg - B D glucan pos case d/w ICU team labs, imaging, records reviewed ~57ccmin required for eval, exam, review, intervention , discussion and formulation of POC for this critically ill pt with resp failure at high risk for further and ongoing decompensation Provider Notation Provider Notation: Although this document has been carefully reviewed, there may still be some phonetic and other typographical errors. These errors are purely grammatical due to imperfections in the software program and should not be construed in any way to compromise the substance of the patient's medical care during this visit. Thank you for the opportunity and privilege in assisting you with this patient's care and management.
[2024-06-06 15:17] LABS: Lactate (Lactic Acid) 2.1 mMol/L (0.4-2.0)
--- NOTE | 2024-06-06 15:29 | PC.DIETICIAN ---
Nutrition prescription Nepro at 20 ml/hr via OG tube by pump. Advance 10 ml every 8 hrs to goal rate of 40 ml/hr x 24 hrs. If no IV fluids, water flushes of 30 ml/hr (or per MD).
[2024-06-06 15:35] LABS: Base Excess 2 (-3-3); HCO3 29 mEq/L (20-26); Inspired Oxygen, FIO2 21 %; O2 Saturation 92 % (91-98); PCO2 60 mmHg (32.0-48.0); PO2 74 mmHg (83-108)
[2024-06-06 15:36] LABS: Allen Test Performed/OK; Puncture Site Left Radial
[2024-06-06 15:46] LABS: Alanine Aminotransferase 56 U/L (10-49); Albumin, Serum 3.6 gm/dL (3.5-5.0); Albumin/Globulin Ratio 0.9 (1.2-2.2); Alkaline Phosphatase 64 U/L (46-116); Anion Gap 5 (7-16); Aspartate Amino Transferase 32 U/L (0-34); BUN/Creatinine Ratio 14 Ratio (12-20); Bilirubin,Total 0.3 mg/dL (0.3-1.2); Blood Urea Nitrogen 33 mg/dL (9-23); Calcium 8.2 mg/dL (8.3-10.6); Calcium (Corrected) 8.5 mg/dL (8.5-10.1); Carbon Dioxide 24.2 mMol/L (20.0-31.0); Chloride 100 mMol/L (98-107); Creatinine (Component) 2.3 mg/dL (0.6-1.3); Estimated Creatinine Clearance 39.3 mL/min (>60); Globulin 3.8 gm/dL (2.3-3.5); Glucose 109 mg/dL (74-106); Osmolality,Calculated 267 (275-295); Phosphorous 5.7 mg/dL (2.4-5.1); Sodium 129 mMol/L (136-145); Total Protein 7.4 gm/dL (5.7-8.2); eGFR 36 See Note
[2024-06-06 15:51] LABS: Potassium 6.8 mMol/L (3.4-5.1)
--- NOTE | 2024-06-06 15:53 | PC.NURSE ---
Spoke with POC, Francesca Owen regarding a letter received by patients daughter for request to transfer patient to a different facility for HLOC. Doctor explained that unfortunately, request can not be made by daughter as Francesca is the appointed decision maker noted on the patients medical record and this request can only be made by Francesca Owen. The process of transfer was explained to Francesca (POC). At this time patients care is adequately maintained here at our facility per/MD and a transfer to another facility would be a lateral transfer meaning same level of care and there would be no change of care if at another facility; transfer would likely be denied by insurance for this reason. There would also need to be an accepting hospital, an accepting MD, and there is still potential if all lines up that we would also have to wait for an open bed. Francesca Owen, stated she did not wish to pursue a transfer at this time and understands the level of care would does not change requiring a HLOC.
[2024-06-06] MEDS: MIDAZOLAM/NS 100 MG IVPB 100 MG/100 ML BAG IV (16:17)
[2024-06-06] MEDS: INSULIN HUM REGULAR 1 UNIT/0.01 ML (PER UNIT) 10 UNIT SC (16:45)
[2024-06-06 17:02] LABS: Potassium 6.8 mMol/L (3.4-5.1)
--- NOTE | 2024-06-06 18:07 | XR_ITS ---
Examination: AP chest single view Technique one AP portable supine chest single view Exam date and time: June 06, 2024 1819 hrs. Comparison June 06, 2024 1747 hrs. Indications: Post temporary dialysis catheter placement today Findings: Severe bilateral pneumonia ARDS pattern Interval right internal jugular temporary dialysis catheter tip SVC satisfactory position No pneumothorax Tracheal tube tip 6 cm above sunil Orogastric tube in the stomach satisfactory position Impression: Interval insertion right internal jugular temporary dialysis catheter, tip in SVC satisfactory position No pneumothorax
[2024-06-06 18:14] LABS: Reflex Lactate? Y
[2024-06-06 18:40] LABS: Lactic Acid, 3 HR 2.2 mMol/L (0.4-2.0)
[2024-06-06 19:08] LABS: Potassium 6.2 mMol/L (3.4-5.1)
[2024-06-06 20:01] LABS: Hepatitis A Antibody IgM Non Reactive (Non React); Hepatitis B Surface Antigen Non Reactive (Non React)
[2024-06-06 20:02] LABS: Hepatitis B Core Antibody IgM Non Reactive (Non React); Hepatitis B Surface Ab Reactive (Immune) (Immune); Hepatitis C Antibody Non Reactive (Non React)
--- NOTE | 2024-06-06 21:02 | PC.NURSE ---
tx paused for few mins due to Machine keeps on alarming with high venous pressure and john. chamber starting to clot. All blood returned. Set up a new lines. Treatment re-started again. UF goal remains at 400 due to BP trending down. Will monitor
[2024-06-06] MEDS: HEPARIN SOD INJ 1000 UNIT/ML VIAL 10 ML 2200 UNIT INDWELLCAT (21:57)
--- NOTE | 2024-06-06 22:19 | PC.NURSE ---
1st dialysis completed for 2.5 hrs. Tolerated well. No fluid removal per MD. Post VS stable. BP 129/69, HR 88, Temp. 96.8. Report given to Aleksey JOLLY.
[2024-06-06 23:17] LABS: Alanine Aminotransferase 264 U/L (10-49); Albumin, Serum 3.4 gm/dL (3.5-5.0); Alkaline Phosphatase 92 U/L (46-116); Anion Gap 3 (7-16); Aspartate Amino Transferase 344 U/L (0-34); BUN/Creatinine Ratio 17 Ratio (12-20); Bilirubin,Total 0.7 mg/dL (0.3-1.2); Blood Urea Nitrogen 22 mg/dL (9-23); Calcium 8.1 mg/dL (8.3-10.6); Calcium (Corrected) 8.6 mg/dL (8.5-10.1); Carbon Dioxide 32.7 mMol/L (20.0-31.0); Chloride 102 mMol/L (98-107); Creatinine (Component) 1.3 mg/dL (0.6-1.3); Estimated Creatinine Clearance 69.5 mL/min (>60); Globulin 3.4 gm/dL (2.3-3.5); Glucose 132 mg/dL (74-106); Osmolality,Calculated 280 (275-295); Potassium 4.7 mMol/L (3.4-5.1); Sodium 138 mMol/L (136-145); Total Protein 6.8 gm/dL (5.7-8.2); eGFR > 60 See Note
[2024-06-07] VITALS (134 sets, daily range): BP systolic 0–164; BP diastolic 0–79; PULSE 64–105; RESP 23–37; TEMP 36.3–37.1; O2SAT 88–99
[2024-06-07] MEDS: fentaNYL 2,500 MCG/250 ML BAG 2,500 MCG/250 ML BAG 25 MCG IV ×3 (03:21→23:30)
[2024-06-07 04:09] LABS: Base Excess 10 (-3-3); HCO3 36 mEq/L (20-26); Inspired Oxygen, FIO2 40 %; O2 Saturation 99 % (91-98); PCO2 56 mmHg (32.0-48.0); PO2 293 mmHg (83-108); pH, Arterial 7.41 (7.35-7.45)
[2024-06-07 04:11] LABS: Allen Test Not Performed; Puncture Site Arterial Line
--- NOTE | 2024-06-07 04:23 | PC.RT ---
no changes to vent settings. fio2 was placed on 100% when RN was cleaning/turning pt so po2 read 293. per dr Mckenzie, no changes will be made to settings.
--- NOTE | 2024-06-07 05:00 | XR_ITS ---
Examination: AP chest single view Technique: AP portable semiupright chest single view Exam date and time: June 07, 2024, 0513 hrs. Comparison June 06, 2024 and chest films dating to June 01, 2024 Indications: Hypoxic respiratory failure, adult respiratory distress syndrome, postintubation Findings: Severe bilateral lung opacity again noted Right internal jugular temporary dialysis catheter tip SVC no pneumothorax Endotracheal tube tip 5.4 cm above sunil. The orogastric tube is in the stomach, the tip below the level of the film No pneumothorax Adequate bone density Impression: No significant change in severe bilateral pneumonia/ARDS pattern
[2024-06-07 06:28] LABS: Basophils % (Auto) 0 % (0-2.5); Eosinophils % (Auto) 0 % (0-10); Hematocrit 30.4 % (41.0-53.0); Hemoglobin 9.6 g/dL (13.5-16.0); Immature Granulocytes % (Auto) 2 % (0-0); Immature Granulocytes Auto 0.15 Thou/mm3 (0.00-0.00); Lymphocytes # (Auto) 0.2 Thou/mm3 (1.0-4.8); Lymphocytes % (Auto) 3 % (10-50); Mean Corpuscular HGB Conc 31.6 g/dl (31.0-37.0); Mean Corpuscular Hemoglobin 22.3 pg (25.0-35.0); Mean Corpuscular Volume 71 fL (80-100); Monocytes % (Auto) 1 % (0-12); Neutrophils # (Auto) 7.4 Thou/mm3 (1.8-7.7); Neutrophils % (Auto) 95 % (37-80); Nucleated Red Blood Cell # 0.03 Thou/mm3 (0.00-0.00); Nucleated Red Blood Cell % 0 /100 WBC (0); Platelet Count 482 Thou/mm3 (140-440); RDW Standard Deviation 45.8 fL (35.1-43.9); Red Blood Count 4.31 Miln/mm3 (4.50-5.90); White Blood Count 7.9 Thou/mm3 (3.8-10.6)
[2024-06-07] MEDS: TRIMETHOPRIM 160 MG/SULFA 800 MG SUSP 20 ML UDC 40 ML PO ×4 (06:33→21:03)
[2024-06-07] MEDS: PIPER/TAZO 3.375 GM 3.375 GM/50 ML BAG IV ×3 (06:33→21:00)
[2024-06-07 07:26] LABS: Alanine Aminotransferase 430 U/L (10-49); Albumin, Serum 3.3 gm/dL (3.5-5.0); Alkaline Phosphatase 90 U/L (46-116); Anion Gap 5 (7-16); Aspartate Amino Transferase 371 U/L (0-34); BUN/Creatinine Ratio 20 Ratio (12-20); Bilirubin,Total 0.4 mg/dL (0.3-1.2); Blood Urea Nitrogen 26 mg/dL (9-23); Calcium 7.9 mg/dL (8.3-10.6); Calcium (Corrected) 8.5 mg/dL (8.5-10.1); Carbon Dioxide 33.8 mMol/L (20.0-31.0); Chloride 100 mMol/L (98-107); Creatinine (Component) 1.3 mg/dL (0.6-1.3); Estimated Creatinine Clearance 69.5 mL/min (>60); Globulin 3.2 gm/dL (2.3-3.5); Glucose 124 mg/dL (74-106); Osmolality,Calculated 283 (275-295); Potassium 4.7 mMol/L (3.4-5.1); Sodium 139 mMol/L (136-145); Total Protein 6.5 gm/dL (5.7-8.2); eGFR > 60 See Note
[2024-06-07] MEDS: PANTOPRAZOLE INJ 40 MG VIAL IVP (08:21)
[2024-06-07] MEDS: CALCIUM CARBONATE 600 MG TABLET NG (08:21)
[2024-06-07] MEDS: FLUCONAZOLE/NS 400 MG IVPB 400 MG/200 ML BAG 100 MG IV (08:21)
[2024-06-07] MEDS: NICOTINE PATCH 14 MG/24 HR PATCH.TD24 TOP (08:21)
[2024-06-07] MEDS: ENOXAPARIN SOD INJ 40 MG/0.4 ML SYRINGE SC (08:21)
[2024-06-07] MEDS: DEXMEDETOMIDINE 400 MCG IVPB 400 MCG/100 ML BAG IV (09:25)
[2024-06-07 10:06] LABS: Base Excess 11 (-3-3); HCO3 37 mEq/L (20-26); Inspired Oxygen, FIO2 40 %; O2 Saturation 95 % (91-98); PCO2 55 mmHg (32.0-48.0); PO2 78 mmHg (83-108); pH, Arterial 7.43 (7.35-7.45)
[2024-06-07 10:09] LABS: Allen Test Not Performed; Puncture Site Arterial Line
--- NOTE | 2024-06-07 10:40 | XR_ITS ---
Examination: CT chest with intravenous contrast 2-D sagittal and coronal reconstructions Exam date and time: June 07, 2024 1412 hours INDICATIONS: Severe pneumonia ARDS this week on imaging, postintubation CTDI:vol (mGy) 13.8 DLP: (mGycm) 530 TECHNIQUE: Multiple axial images of the thorax including 2-D sagittal coronal reconstructions post intravenous administration 60 cc gadolinium Low dose protocols, automated exposure control just been made KV according to patient size FINDINGS: Tracheal tube tip 5 cm above sunil No thoracic aortic aneurysm dilatation Main pulmonary artery segment measures 3.2 cm No paratracheal tracheobronchial or bronchopulmonary adenopathy Severe bilateral lung opacity No focal liver or splenic lesions Orogastric tube in the stomach No gallstones No pancreatic mass Impression: Severe bilateral pneumonia ARDS pattern
--- NOTE | 2024-06-07 10:42 | ESPR_ITS ---
<Statement entered by Jennifer Velasco MD - 06/09/24 07:11> Patient was seen and examined by me personally. I have directly supervised and reviewed the above documentation by the team resident and agree with its findings with any exceptions or additional findings as below. Plan of care was discussed with the attending, Dr. Walsh. Jennifer Velasco, PGY-2 Documentation for date of: 06/07/24 Subjective Subjective Interval history: Mr. Owen is a 39-year-old male with no known previous past medical history who presented to [facility] on 05/27/2024 with a chief complaint of shortness of breath and cough. Patient had exhibited symptoms of chills, body aches, generalized weakness, fever, and night sweats progressively worsening over the prior weeks. He was admitted and initiated on empiric treatment for community-acquired pneumonia and cocci pneumonia, although cocci IgM returned negative twice this admission. Over the course of his hospitalization patient's oxygen requirements continued to worsen as he became more hypoxic worse with activity and movement. He had intermittent fevers and sinus tachycardia. All of the patient's culture testing has been negative thus far, including blood, urine, sputum, and MRSA screening. HIV test returned equivocal, possible positive and was sent out for confirmatory testing. Primary team had thomas consulted Dr. Anderson, Computer Artist for recommendations. There is a suspicion for pneumocystis pneumonia given the preliminary result therefore the patient was started on TMP-SMX. Beta-(1,3)-D-glucan testing was also positive (>500). 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 He did endorse a history of incarceration in 2006. TB quantiferon was indeterminate on 05/31. He denies any recent travel, sick contacts, or contact with anyone that may have had recent international travel. Patient last was in ICU 05/30/2024-05/31/2024 for increased work of breathing on HiFlow and fever, was started on steroids and monitored closely but no intubation at that time. He was downgraded to floors after decrease in FiO2 needs and improvement in respiratory status. 06/05/2024 rapid response was called around 10:15 am for patient desaturation to 70s while on HiFlow 30L at 100% FiO2, which occurred at least twice this morning while patient was moving. Patient this morning was reporting increased work of breathing and dyspnea upon any movement sitting up or out of the bed to urinate. Patient also had rapid response for similar episodes last night. When examined he appeared laying flat in the bed with nonlabored breathing, however is diaphoretic and repeatedly complaining of dyspnea. Decision was made to upgrade patient to ICU again for intubation due to impending respiratory failure and bronchoscopy for further diagnotic data. 06/06/2024: Patient was seen and examined by the bedside. Yesterday patient was intubated, was started on sedation and paralytics. Today, his oxygen requirements decreased to FiO2 40%, cistracurium was discontinued. Propofol and heparin were discontinued due to concern for WILL. Patient continues to have urine output >100 ml/hr. Patossium level in the AM was >7, patient received insulin 10Ux2, kayexalate, calcium gluconate, repeat K is pending. Will continue with current antibiotic regimen and steroids. BAL cultures and fungal cultures results are pending. Contacte lab for possibility of silver stain of BAL samples. Confirmatory HIV test is pending. We spoke to the decision maker Francesca Owne regarding the transfer. At this time patient condition does not require a transfer and patient is under adequate care at [facility]. The process of transfer was explained to the Francesca and she does not requesting transfer at the moment. Patient's condition and plan of treatment were explained to her, all questions were answered. Later in the day, patient's potassium levels continues to be increased. He received insulin, kayexalate, albuterol again. Dr. Song was consulted, pending recommendations. Francesca Owen was contacted, she was given update on his condition and she was made aware that in case his potassium continues to be elevated, it would require emergent hemodialysis. Consent for temporary dialysis catheter placement was obtained. Procedure was explained to the desicion maker. His mother was also at the bedside, she was also given updates on the patient's condition using spanish medical interpreter service. All question were answered. 06/07/2024: Patient was seen and examined by the bedside. No acute overnight events. Yesterday patient was emergently hemodialyzed, today potassium levels are normal. Patient continues to be on fentanyl, Precedex, Ativan. He is opening his eyes to the touch, his name, tries to sit up. Called the lab, waiting for callback regarding the HIV PCR status that was done on 05/27/24. Still pending silver stain of BAL fluid. Will repeat ABGs today as the morning were drawn when the patient was on 100% FiO2. Will also repeat CT chest with contrast. Will also explore the idea of different causes of the lung injury. His sister reports that he has been smoking a pack a day since being a teenager and also smokes marijuana and wax pens. She is not exactly sure how often did he smoked marijuana pen. She brought a bag from his home that contained syringe in packaging, bottles with testosteron and trenbolone markings, marijuana smoking pen and artificial urine. Cytology and silver stain of BAL from the right lung revealed organisms consistent with Pneumocystis jiroveci and as well as other fungus, possibly Kassandra. Discussed with patient's sister results and explained that one of the possible reasons for decreased immunity causing Pneumocystis pneumonia. Also gave update on the patient's condition to the mother using spanish medical interpreter service. HIV PCR is still pending, called lab for update, still waiting. Sent repeat HIV tests again today 06/07/24. Patient continues to receive bactrim, fluconazole and zosyn. Exam Vital Signs Temp Pulse Resp BP Pulse Ox O2 Del Method O2 Flow Rate 98.7 F 81 32 H 115/53 L 97 Mechanical Ventilation 40 06/07/24 08:00 06/07/24 10:28 06/07/24 06:11 06/07/24 10:28 06/07/24 10:28 06/07/24 10:00 06/06/24 22:05 FiO2 40 06/07/24 10:28 Narrative Exam Gen: Well-developed and well-nourished. Sedated. HEENT: NCAT, PERRLA, EOMI, MMM, anicteric conjunctivae. CVS: normal S1 and S2. RRR. No M/R/G. Resp: Coarse breathing bilaterally. Abd: soft, non-tender, non-distended. BS+ in all 4 quadrants. MSK: Good ROM in BUE & BLE. No edema or rash. Multiple tattoos present. Neuro: No gross focal neurological finding. Psych: Impossible to assess. Objective Labs 06/08/24 05:38 06/08/24 12:28 Labs: Laboratory Results - last 24 hr 06/06/24 06/06/24 06/06/24 10:41 14:57 15:27 WBC RBC Hgb Hct MCV MCH MCHC RDW Std Deviation Plt Count Neut % (Auto) Lymph % (Auto) Bacon % (Auto) Eos % (Auto) Baso % (Auto) Neut # (Auto) Lymph # (Auto) Bacon # (Auto) Eos # (Auto) Baso # (Auto) Immature Gran # (Auto) Absolute Nucleated RBC Immature Gran % Nucleated RBC % Puncture Site Left Radial ABG pH 7.30 L ABG pCO2 60 H ABG pO2 74 L D ABG HCO3 29 H ABG O2 Saturation 92 ABG Base Excess 2 FiO2 21 Sodium 129 L 129 L Potassium 6.3 H* D 6.8 H* D Chloride 98 100 Carbon Dioxide 25.6 24.2 Anion Gap 5 L 5 L BUN 41 H 33 H Creatinine 2.7 H 2.3 H Estim Creat Clear Calc 33.5 L 39.3 L eGFR 30 L 36 L BUN/Creatinine Ratio 15 14 Glucose 171 H 109 H D Calculated Osmolality 273 L 267 L Lactic Acid 2.1 H Calcium 8.3 8.2 L Corrected Calcium 8.5 8.5 Phosphorus 6.9 H 5.7 H Magnesium 3.4 H Total Bilirubin 0.3 AST 32 ALT 56 H Alkaline Phosphatase 64 Total Protein 7.4 Albumin 3.7 3.6 Globulin 3.8 H Albumin/Globulin Ratio 0.9 L Hepatitis A IgM Ab Hep Bs Antigen Hep Bs Antibody Hep B Core IgM Ab Hepatitis C Antibody 06/06/24 06/06/24 06/06/24 16:23 18:24 22:35 WBC RBC Hgb Hct MCV MCH MCHC RDW Std Deviation Plt Count Neut % (Auto) Lymph % (Auto) Bacon % (Auto) Eos % (Auto) Baso % (Auto) Neut # (Auto) Lymph # (Auto) Bacon # (Auto) Eos # (Auto) Baso # (Auto) Immature Gran # (Auto) Absolute Nucleated RBC Immature Gran % Nucleated RBC % Puncture Site ABG pH ABG pCO2 ABG pO2 ABG HCO3 ABG O2 Saturation ABG Base Excess FiO2 Sodium 138 Potassium 6.8 H* 6.2 H* D 4.7 D Chloride 102 Carbon Dioxide 32.7 H Anion Gap 3 L BUN 22 Creatinine 1.3 D Estim Creat Clear Calc 69.5 eGFR > 60 BUN/Creatinine Ratio 17 Glucose 132 H Calculated Osmolality 280 Lactic Acid 2.2 H Calcium 8.1 L Corrected Calcium 8.6 Phosphorus Magnesium Total Bilirubin 0.7 AST 344 H ALT 264 H Alkaline Phosphatase 92 D Total Protein 6.8 Albumin 3.4 L Globulin 3.4 Albumin/Globulin Ratio 1.0 L Hepatitis A IgM Ab Non Reactive Hep Bs Antigen Non Reactive Hep Bs Antibody Reactive (Immune) Hep B Core IgM Ab Non Reactive Hepatitis C Antibody Non Reactive 06/07/24 06/07/24 06/07/24 03:55 05:37 09:59 WBC 7.9 RBC 4.31 L Hgb 9.6 L Hct 30.4 L MCV 71 L MCH 22.3 L MCHC 31.6 RDW Std Deviation 45.8 H Plt Count 482 H D Neut % (Auto) 95 H Lymph % (Auto) 3 L Bacon % (Auto) 1 Eos % (Auto) 0 Baso % (Auto) 0 Neut # (Auto) 7.4 Lymph # (Auto) 0.2 L Bacon # (Auto) 0.0 Eos # (Auto) 0.0 Baso # (Auto) 0.0 Immature Gran # (Auto) 0.15 H Absolute Nucleated RBC 0.03 H Immature Gran % 2 H Nucleated RBC % 0 Puncture Site Arterial Line Arterial Line ABG pH 7.41 D 7.43 ABG pCO2 56 H 55 H ABG pO2 293 H D 78 L D ABG HCO3 36 H 37 H ABG O2 Saturation 99 H 95 ABG Base Excess 10 H 11 H FiO2 40 40 Sodium 139 Potassium 4.7 Chloride 100 Carbon Dioxide 33.8 H Anion Gap 5 L BUN 26 H Creatinine 1.3 Estim Creat Clear Calc 69.5 eGFR > 60 BUN/Creatinine Ratio 20 Glucose 124 H Calculated Osmolality 283 Lactic Acid Calcium 7.9 L Corrected Calcium 8.5 Phosphorus Magnesium Total Bilirubin 0.4 AST 371 H ALT 430 H Alkaline Phosphatase 90 Total Protein 6.5 Albumin 3.3 L Globulin 3.2 Albumin/Globulin Ratio 1.0 L Hepatitis A IgM Ab Hep Bs Antigen Hep Bs Antibody Hep B Core IgM Ab Hepatitis C Antibody ABG Interpretation ABG results: 05/27/24 05/29/24 05/29/24 23:37 10:44 22:08 ABG pH 7.51 H 7.50 H 7.48 H ABG pCO2 28 L 32 32 ABG pO2 75 L 79 L 145 H D ABG HCO3 23 25 24 ABG O2 Saturation 96 95 98 ABG Base Excess 0 2 1 05/30/24 05/31/24 06/04/24 08:45 04:54 02:10 ABG pH 7.47 H 7.45 7.45 ABG pCO2 35 38 36 ABG pO2 86 D 82 L 139 H ABG HCO3 26 26 25 ABG O2 Saturation 97 96 98 ABG Base Excess 2 2 1 06/04/24 06/05/24 06/05/24 18:16 11:36 12:59 ABG pH 7.44 7.11 L* D 7.20 L ABG pCO2 36 94 H* D 68 H D ABG pO2 80 L D 150 H D 121 H D ABG HCO3 24 30 H 26 ABG O2 Saturation 94 97 97 ABG Base Excess 0 -2 -3 06/05/24 06/06/24 06/06/24 19:25 04:13 15:27 ABG pH 7.22 L 7.27 L 7.30 L ABG pCO2 64 H 57 H 60 H ABG pO2 122 H 153 H D 74 L D ABG HCO3 26 26 29 H ABG O2 Saturation 97 99 H 92 ABG Base Excess -3 -2 2 06/07/24 06/07/24 03:55 09:59 ABG pH 7.41 D 7.43 ABG pCO2 56 H 55 H ABG pO2 293 H D 78 L D ABG HCO3 36 H 37 H ABG O2 Saturation 99 H 95 ABG Base Excess 10 H 11 H Quality Measures Quality Measures sepsis Current suspected stage: sepsis Possible source: pulmonary, GI tract/intra-abdominal, genitourinary and skin/soft tissue Blood cultures ordered: yes Antibiotic ordered: Yes Assessment & Plan Assessment Current Active Medications: Generic Name Dose Route Start Last Admin Trade Name Freq PRN Reason Stop Dose Admin Acetaminophen 1,000 mg 05/29/24 15:38 05/30/24 17:57 Acetaminophen 500 Mg Tablet PO 06/26/24 12:10 1,000 mg Q6H PRN Administration Pain 1-3 and Fever >101.5 Albuterol/Ipratropium 3 ml 06/05/24 11:40 06/06/24 16:43 Albuterol/Ipratropium (Duoneb) Rt Munira 3 Ml Nebu INH 12/17/24 14:59 3 ml Q4HRRT PRN Administration Wheezing Calcium Carbonate 600 mg 06/06/24 09:00 06/07/24 08:21 Calcium Carbonate 600 Mg Tablet NG 07/06/24 08:59 600 mg QDAY JUAN JOSE Administration Chlorpromazine HCl 25 mg 06/04/24 14:15 06/05/24 05:16 Chlorpromazine 25 Mg Tablet PO 07/04/24 14:14 25 mg TID JUAN JOSE Administration Dextrose 25 ml 06/06/24 08:20 Dextrose 50%-Water Inj 50 Ml Syringe IV 07/06/24 08:19 Q15MIN PRN BG 50-70 responsive npo pt Dextrose 50 ml 06/06/24 08:20 Dextrose 50%-Water Inj 50 Ml Syringe IV 07/06/24 08:19 Q15MIN PRN BG <50 OR BG <70 & pt unresponsive Enoxaparin Sodium 40 mg 06/07/24 09:00 06/07/24 08:21 Enoxaparin Sod Inj 40 Mg/0.4 Ml Syringe SC 06/21/24 08:59 40 mg QDAY JUAN JOSE Administration Glucagon 1 mg 06/06/24 08:20 Glucagon Inj 1 Mg Vial IM Q15MIN PRN BG <70, and no IV access Heparin Sodium (Porcine) 2,200 unit 06/06/24 20:40 06/06/24 21:57 Heparin Sod Inj 1000 Unit/Ml Vial 10 Ml INDWELLCAT 06/12/24 20:39 2,200 unit X1 PRN Administration DIALYSIS Piperacillin/Tazobactam/Dextrose 3.375 gm in 50 mls @ 12.5 mls/hr 06/01/24 14:00 06/07/24 10:38 Zosyn IV 06/08/24 13:59 Infused Q8HR JUAN JOSE Infusion Protocol Fentanyl Citrate 2,500 mcg in 250 mls @ 2.5 mls/hr 06/05/24 10:38 06/07/24 10:00 Sublimaze Inj 2,500 Mcg/250 Ml Bag IV 06/10/24 10:37 250 mcg/hr .Q24H PRN 25 mls/hr PER PROTOCOL Titration Protocol 25 MCG/HR Cisatracurium Besylate 200 mg/ 520 mls @ 13.303 mls/hr 06/05/24 12:05 06/06/24 10:08 Sodium Chloride IV 07/05/24 12:04 0 mcg/kg/min .Q24H PRN 0 mls/hr Per Protocol Titration Protocol 1 MCG/KG/MIN Midazolam HCl 100 mg in 100 mls @ 1 mls/hr 06/05/24 12:15 06/07/24 10:00 Versed Pf Inj In Ns Premix IV 06/10/24 12:14 3 mg/hr .Q24H PRN 3 mls/hr PER PROTOCOL Titration Protocol 1 MG/HR Norepinephrine/Dextrose 8 mg in 250 mls @ 7.05 mls/hr 06/06/24 04:07 06/07/24 10:07 Levophed In D5w 8mg/250ml IV 07/06/24 04:06 0 mcg/kg/min .Q24H PRN 0 mls/hr PER PROTOCOL Titration Protocol 0.05 MCG/KG/MIN Fluconazole 400 mg in 200 mls @ 100 mls/hr 06/06/24 07:30 06/07/24 10:38 Diflucan/Ns Ivpb IV 06/13/24 07:29 Infused QDAY JUAN JOSE Infusion Dexmedetomidine/Sodium Chloride 400 mcg in 100 mls @ 3.76 mls/hr 06/06/24 14:33 06/07/24 10:00 Precedex Ivpb IV 07/06/24 14:32 0.2 mcg/kg/hr .Q24H PRN 3.76 mls/hr Per PROTOCOL Titration Protocol 0.2 MCG/KG/HR Methylprednisolone Sodium Succinate 40 mg 06/05/24 13:21 06/07/24 06:33 Methylprednisolone Sod Succ 40 Mg Vial IVP 06/12/24 13:20 40 mg Q8HR JUAN JOSE Administration Nicotine 14 mg 05/28/24 09:00 06/07/24 08:21 Nicotine Patch 14 Mg/24 Hr Patch.Td24 TOP 06/27/24 08:59 14 mg QDAY JUAN JOSE Administration Ondansetron HCl 4 mg 05/29/24 21:51 06/04/24 17:44 Ondansetron Inj 2 Mg/Ml Inj 2 Ml IV 06/28/24 21:50 4 mg Q6HR PRN Administration NAUSEA OR VOMITING Protocol Pantoprazole Sodium 40 mg 06/06/24 09:00 06/07/24 08:21 Pantoprazole Inj 40 Mg Vial IVP 07/06/24 08:59 40 mg QDAY JUAN JOSE Administration Promethazine HCl/Dextromethorphan 5 ml 05/28/24 16:56 05/30/24 02:34 Promethazine/Dm Syrup 5 Ml Dose PO 06/27/24 16:55 5 ml Q4HR PRN Administration COUGH Protocol Sennosides 1 tab 05/27/24 12:11 Senna Tablet PO 06/26/24 12:10 QDAY PRN constipation Protocol Sodium Polystyrene Sulfonate 15 gm 06/05/24 09:00 06/07/24 08:55 Sod Polystyrene Sulfon Susp 15 Gm/60 Ml Btl PO 07/05/24 08:59 Not Given QDAY JUAN JOSE Trimethoprim/Sulfamethoxazole 40 ml 06/05/24 12:00 06/07/24 06:33 Trimethoprim 160 Mg/Sulfa 800 Mg Susp 20 Ml Udc PO 06/12/24 11:59 40 ml QID JUAN JOSE Administration Plan This is a 39-year-old gentleman with no known previous past medical history who initially presented to [facility] on 05/27/2024 with a chief complaint of shortness of breath and cough, and recent history of chills, body aches, generalized weakness, fever, and night sweats progressively worsening over the prior weeks, subsequently admitted for acute hypoxic respiratory failure secondary to bilateral community-acquired pneumonia. He has had multiple rapid response alerts during the course of hospitalization for increasing oxygen requirements and recurrent fevers. He was monitored in ICU from 05/30-05/31, now currently upgraded to ICU again 06/05 for intubation and bronchoscopy. NEURO Prior to intubation, patient is awake, alert, and oriented x3, following commands, conversational. #No active problem, sedated -Fentanyl, midazolam and precedex with a RASS goal of -4 - Propofol discontinued -Cisatracurium was discontinued CARDIO #Septic shock, resolved #Sinus tachycardia, resolved Most likely shock is due to sepsis landaverde to bilateral pneumonia. Most likely secondary to respiratory distress and increased work of breathing. BP has been maintaining MAP >65. -Continuous telemetry -Echo was read 06/06: EF 55-60% -Discontinued levophed PULM #Acute hypoxic respiratory failure Secondary to #Bilateral pneumonia Patient presented with dyspnea and cough, requiring 4L NC on first ED evaluation, and history of chills, body aches, generalized weakness, fever, and night sweats progressively worsening over the prior weeks. Over hospitalization patient supplemental O2 requirements increased, requiring HiFlow by the second day. He has been treated empirically for community acquired pneumonia, but continues to have worsening respiratory status. Follow up CXRs continue to show worsening fluffy bilateral extensive infiltrates. Ddx: Infectious pneumonia bacterial vs fungal vs less likely viral, autoimmune causes, drug-induced causes. Negative studies: Cocci IgM and IgG, Hepatitis panel, Syphilis, Legionella, H.flu, N.meningitidis, Strep B, Strep pneumoniae, COVID, RSV, Flu A & B. Indeterminate: TB quantiferon GOLD Positive: Beta-(1,3)-D-Glucan 06/05/2024 Bronchoscopy completed today, which showed normal-appearing mucosa and no mucous plugging, hemorrhage, or friability bilaterally. Tx: -Continue Bactrim, Zosyn, fluconazole -Bronchoalveolar lavage washings culture pending -Fungal culture pending -BAL cytology sent to Pathology -Contacted lab regarding silver stain of BAL culture, pending -DuoNebs q4h as needed #ARDS Patient continues to have increased oxygen demands with worsening bilateral infiltrates on CXR. Will maintain ARDS ventilation protocol. Ddx: In setting of worsening pneumonia. In the morning 06/06, vent settings were: VT 486, RR32, FiO2 60, downtitrated to the FiO2 40%. ABG: pH 7.24, pCO2 57, pO2 153. P:F ratio is 153/0.6=255. Mild ARDS. Tx: -Disontinued neuromuscular blockade -Will try to downtitrate FiO2 -Low tidal volume ventilation, will try to keep TV ~380 according to 6 mL/kg predicted body weight -Maintain peak plateau <30 -Permissive hypercapnia -Follow up ABG -Methylprednisolone 40 mg q8h GI Prophylaxis: Pantoprazole 40 mg IV qday #Elevated LFTs Mildly elevated, liver US 05/30/2024 showed normal gallbladder and hepatomegaly without lesions or evidence of obstructions. Hep panel negative. LFTs significantly increased compared to 06/06/24. -Continue monitoring NEPHRO #WILL, improving #Hyperkalemia, resolved #Hyperphosphatemia #Hyponatremia, resolved #Non-anion gap metabolic acidosis Ddx: Prerenal WILL due to hypotension vs possible rhabdomyolysis vs drug toxicity (zosyn, vancomycin) Urine output is >100 ml/hr, urine is yellow and clear. Possible underlying SIADH. CK level 06/06: 511. Phosphate 06/06: 6.9 PAtient received insulin 10U 2 times, had 1 duoneb inhalation. Plan: -Monitor CMP, repeat potassium - propofol and heparin discontinued due to concern for WILL - no need for emergent dialysis today URO #No active problems -Tijerina placed 06/05/2024 HEME #Microcytic anemia Clinically no evidence of bleeding. Iron panel shows iron 17, TIBC 262, iron saturation 6, unsaturated iron binding 245. Peripheral blood film confirms microcytic hypochromic anemia with target cells. Patient hemoglobins stable, does not require transfusion at the moment, PT, INR, PTT within normal range. Plan: -Monitor H&H. Transfusing for Hgb <7 #Leukocytosis, resolved In the setting of likely infection and corticosteroids. Plan: -Treatment of pneumonia as above #Thrombocytosis Likely reactive. -Continue to monitor ENDO #No active problems ID #Bilateral pneumocystis pneumonia Negative studies: Cocci IgM and IgG, Hepatitis panel, Syphilis, Legionella, H.flu, N.meningitidis, Strep B, Strep pneumoniae, COVID, RSV, Flu A & B. Indeterminate: TB quantiferon GOLD Positive: Beta-(1,3)-D-Glucan Ddx: Bacterial versus fungal versus viral. 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 Patient completed 5 day course of azithromycin. -Continue Zosyn, Bactrim, fluconazole -PPD placed 06/04/2024 at 18:47, read due at 06/06/2024 18:47 right forearm -ID following, recommendations appreciated MSK #No active problems SKIN #No active problems DVT prophylaxis: none GI prophylaxis: Pantoprazole 40 mg IV qday Diet: tube feeds Nepro Tijerina: Present (06/05- ) Lines: Peripheral IV, Right radial arterial line Antibiotics: Zosyn, Bactrim, fluconazole CODE STATUS: FULL CODE Reason for ICU care: Acute hypoxic respiratory failure secondary to bilateral pneumonia/ARDS Plan of care discussed with attending Dr. Walsh, PGY-[address] Velasco and PGY-[address] Santos. Denise Pinzon MD, PGY 1.
--- NOTE | 2024-06-07 11:34 | ESPR_ITS ---
Documentation for date of: 06/07/24 Subjective Subjective Interval history: This is a 39-year-old male who presented to the ER on 27 May. Initially he presented for shortness of breath cough and general malaise. Apparently he had been feeling unwell for the last 2 to 3 weeks. He did have some nonproductive cough. Chest x-ray showed bilateral diffuse infiltrates and the medicine team was contacted. He was admitted to the floor and placed on high flow nasal cannula initially at 100% FiO2 and started on antibiotics. He was started on fluconazole as well as Levaquin given that there was a high suspicion for underlying cocci pneumonia. He has had 2 rapid responses over the last 48 hours due to hypoxia and desatting. The patient is able to tolerate minimal movements prior to desatting. Today the ICU is consulted for further evaluation. The patient is currently on 80% FiO2 he is awake alert and oriented. He states that he has shortness of breath however minimal cough. He does complain of some upper abdominal/lower rib pain which he attributes to his recent cough. He denies any chest pain. Does note that he has had some night sweats and fever over the last several days. There has been no significant improvement since arrival 3 days ago. His respiratory status remains unchanged if not slightly worse. He is currently on isolation with airborne precautions behind a closed door. At this point in time due to an abundance of caution as well as closer observation and monitoring we will transfer to the ICU for ongoing management of his acute hypoxic respiratory failure. I did discuss with the patient the probable need for intubation in the near future. He is okay with intubation 05/31- no acute overnight events, decrease in FiO2 needs, feels better with less WOB today, afebrile, 06/05-patient had been returned to the floor where initially he did well. Apparently over the last 24 to 36 hours he has had an increase in FiO2 requirements with a rapid response called last night. Rapid response called again this morning. Patient stated that he felt tired and unable to keep up. He is on 100% FiO2. He desats with minimal exertion. The decision was made to bring him to the ICU for intubation. This was discussed with the patient while he was awake and his family as well. 06/06- overnight pt remained on NMB, versed/prop/fent. brisk UOP >100cc/hr , afebrile, labs this AM showed a K of 7.8 for which he received insulin/Ca/D50/kayexolate 06/07-patient underwent dialysis yesterday for refractory hyperkalemia, he remains on deep sedation however off of propofol and off of paralytic. Continues with a good urinary output. Afebrile, have been able to come down on his FiO2 however persistent bilateral infiltrates severe on exam without conclusive underlying etiology as of this point in time. Critical Care Note Critical care time (min.): 55 Exam Vital Signs Temp Pulse Resp BP Pulse Ox O2 Del Method O2 Flow Rate 98.7 F 79 32 H 105/58 L 93 L Mechanical Ventilation 40 06/07/24 08:00 06/07/24 11:00 06/07/24 06:11 06/07/24 11:00 06/07/24 11:00 06/07/24 11:00 06/06/24 22:05 FiO2 40 06/07/24 11:00 Narrative Exam General-sedated, intubated, normal body habitus HEENT-normocephalic, atraumatic, sclera anicteric, pupils equal and reactive, oral mucosa is hydrated, ET tube and OG tube in place Chest-diminished breath sounds, no significant wheeze or crackles heard at time of exam, heart regular rhythmic, no bruits murmurs, no increased work of breathing Abdomen-soft, nontender, bowel sounds present, no rebound or guarding Extremities-no edema the lower extremities, pulses palpable, no clubbing or cyanosis, no mottling Vent AC/VC Drips Fentanyl Versed Precedex Levophed Physical Exam Completion Physical Exam Complete?: Yes Objective - [employer] Labs 06/07/24 05:37 06/07/24 05:37 Labs: Laboratory Results - last 24 hr 06/06/24 06/06/24 06/06/24 10:41 14:57 15:27 WBC RBC Hgb Hct MCV MCH MCHC RDW Std Deviation Plt Count Neut % (Auto) Lymph % (Auto) [place] % (Auto) Eos % (Auto) Baso % (Auto) Neut # (Auto) Lymph # (Auto) [place] # (Auto) Eos # (Auto) Baso # (Auto) Immature Gran # (Auto) Absolute Nucleated RBC Immature Gran % Nucleated RBC % Puncture Site Left Radial ABG pH 7.30 L ABG pCO2 60 H ABG pO2 74 L D ABG HCO3 29 H ABG O2 Saturation 92 ABG Base Excess 2 FiO2 21 Sodium 129 L 129 L Potassium 6.3 H* D 6.8 H* D Chloride 98 100 Carbon Dioxide 25.6 24.2 Anion Gap 5 L 5 L BUN 41 H 33 H Creatinine 2.7 H 2.3 H Estim Creat Clear Calc 33.5 L 39.3 L eGFR 30 L 36 L BUN/Creatinine Ratio 15 14 Glucose 171 H 109 H D Calculated Osmolality 273 L 267 L Lactic Acid 2.1 H Calcium 8.3 8.2 L Corrected Calcium 8.5 8.5 Phosphorus 6.9 H 5.7 H Magnesium 3.4 H Total Bilirubin 0.3 AST 32 ALT 56 H Alkaline Phosphatase 64 Total Protein 7.4 Albumin 3.7 3.6 Globulin 3.8 H Albumin/Globulin Ratio 0.9 L Hepatitis A IgM Ab Hep Bs Antigen Hep Bs Antibody Hep B Core IgM Ab Hepatitis C Antibody 06/06/24 06/06/24 06/06/24 16:23 18:24 22:35 WBC RBC Hgb Hct MCV MCH MCHC RDW Std Deviation Plt Count Neut % (Auto) Lymph % (Auto) [place] % (Auto) Eos % (Auto) Baso % (Auto) Neut # (Auto) Lymph # (Auto) [place] # (Auto) Eos # (Auto) Baso # (Auto) Immature Gran # (Auto) Absolute Nucleated RBC Immature Gran % Nucleated RBC % Puncture Site ABG pH ABG pCO2 ABG pO2 ABG HCO3 ABG O2 Saturation ABG Base Excess FiO2 Sodium 138 Potassium 6.8 H* 6.2 H* D 4.7 D Chloride 102 Carbon Dioxide 32.7 H Anion Gap 3 L BUN 22 Creatinine 1.3 D Estim Creat Clear Calc 69.5 eGFR > 60 BUN/Creatinine Ratio 17 Glucose 132 H Calculated Osmolality 280 Lactic Acid 2.2 H Calcium 8.1 L Corrected Calcium 8.6 Phosphorus Magnesium Total Bilirubin 0.7 AST 344 H ALT 264 H Alkaline Phosphatase 92 D Total Protein 6.8 Albumin 3.4 L Globulin 3.4 Albumin/Globulin Ratio 1.0 L Hepatitis A IgM Ab Non Reactive Hep Bs Antigen Non Reactive Hep Bs Antibody Reactive (Immune) Hep B Core IgM Ab Non Reactive Hepatitis C Antibody Non Reactive 06/07/24 06/07/24 06/07/24 03:55 05:37 09:59 WBC 7.9 RBC 4.31 L Hgb 9.6 L Hct 30.4 L MCV 71 L MCH 22.3 L MCHC 31.6 RDW Std Deviation 45.8 H Plt Count 482 H D Neut % (Auto) 95 H Lymph % (Auto) 3 L [place] % (Auto) 1 Eos % (Auto) 0 Baso % (Auto) 0 Neut # (Auto) 7.4 Lymph # (Auto) 0.2 L [place] # (Auto) 0.0 Eos # (Auto) 0.0 Baso # (Auto) 0.0 Immature Gran # (Auto) 0.15 H Absolute Nucleated RBC 0.03 H Immature Gran % 2 H Nucleated RBC % 0 Puncture Site Arterial Line Arterial Line ABG pH 7.41 D 7.43 ABG pCO2 56 H 55 H ABG pO2 293 H D 78 L D ABG HCO3 36 H 37 H ABG O2 Saturation 99 H 95 ABG Base Excess 10 H 11 H FiO2 40 40 Sodium 139 Potassium 4.7 Chloride 100 Carbon Dioxide 33.8 H Anion Gap 5 L BUN 26 H Creatinine 1.3 Estim Creat Clear Calc 69.5 eGFR > 60 BUN/Creatinine Ratio 20 Glucose 124 H Calculated Osmolality 283 Lactic Acid Calcium 7.9 L Corrected Calcium 8.5 Phosphorus Magnesium Total Bilirubin 0.4 AST 371 H ALT 430 H Alkaline Phosphatase 90 Total Protein 6.5 Albumin 3.3 L Globulin 3.2 Albumin/Globulin Ratio 1.0 L Hepatitis A IgM Ab Hep Bs Antigen Hep Bs Antibody Hep B Core IgM Ab Hepatitis C Antibody Assessment & Plan Additional Assessment Additional Assessment: In brief this is a 39y M admitted for SOB and acute hypoxic resp failure with b/l PNA. a/p [employer] sedated with goal RASS -3 CV Tachycardia-secondary to respiratory distress Resp Acute hypoxic resp failure- Intubated and on mechanical ventilation, follow-up with chest x-ray and ABGs Unclear underlying etiology of his bilateral infiltrates. The patient's beta D glucan did return positive. The rest of his workup is either negative or pending. He has been seen by ID and recommendations are appreciated. Bronchoscopy performed 06/05 and BAL fluid was rather bland in appearance without evidence of diffuse alveolar hemorrhage -> cx NTD - on zosyn and bactrim - solumedrol 40mg q6 - have been able to go down to 40% FiO2 today however was unable to tolerate LTVV with 6cc/kg - vasculitic workup is negative - check silver stain on BAL-> fu with path today - will d/w ID ? viral etiologies (CMV, hMPV,) - HRCT ? SOFIA or underlying malignancy - pts family admits today that he uses a Wax pen on occasion -> requested to bring in cartridges - ? drug toxicity 2/2 unknown inhaled substance ARDS- unable to tolerate low tidal volume ventilation, - plateaus less than 30 -PF ratio of 150 -> 255 -> 195 - maintain sats >88% - permissive hypercapnea - BAL sample shows no bacteria with mult WBC - mult vent changes made - compensated respiratory acidosis on ABG Renal HypoNa- 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 monitor - resolved today HyperK- pts K jumped to 7.8 on 06/06 - tx with insulin/D50/Ca and kayexolate - repeat shows continued elevation therefore given another round of kayexolate 45g - ? BRAYAN vs heparin vs bactrim -> prop and heparin stopped - underwent emergent HD last night - today K wnl -> yesterdays event felt to be 2/2 BRAYAN - fu on repeat BMP this afternoon WILL- prerenal v intrarenal - improved from yesterday - on free water - ? 2/2 poss BRAYAN GI Transaminitis- Hep viral panel is neg, - US shows some mild hepatomegaly - ? if related to underlying pulm process - sharp jump up today - ? related to ischemic insult vs drug toxicity given his abnl yesterday - prop DCd GI proph- PPI Endo Hyperglycemia- 2/2 steroids, monitor Heme Microcytic Anemia- check an iron panel. Has dropped from 12 to 10 since arrival. No active bleeding noted - iron panel shows iron def Thrombocytosis- likely reactive dVT proph- lovenox Leukocytosis- 2/2 underlying process ID PNA- on broad spectrum abx with cx pending - cx are NTD - seen by ID - on bactrim and zosyn - PPD neg - B D glucan pos - touched base with ID once more today case d/w ICU team and family at bedside attempt to obtain additional info regarding pts lifestyle, smoking/vaping, pets, etc labs, imaging, records reviewed ~55ccmin required for eval, exam, review, intervention , discussion and formulation of POC for this critically ill pt with resp failure at high risk for further and ongoing decompensation Provider Notation Provider Notation: Although this document has been carefully reviewed, there may still be some phonetic and other typographical errors. These errors are purely grammatical due to imperfections in the software program and should not be construed in any way to compromise the substance of the patient's medical care during this visit. Thank you for the opportunity and privilege in assisting you with this patient's care and management.
--- NOTE | 2024-06-07 12:17 | PD.INTPROC ---
Procedures Procedure Date / Time 06/06/24 157 Arterial Line Size (Gauge): 20 Central Line Placement Right IJ: Indication(s): other (TriFlow for HD) Informed consent obtained: obtained from surrogate decision maker Time out done, and the following verified: correct patient, side and site, procedure and patient position Patient placed on monitor/pulse ox: Yes Hand Hygiene: alcohol-based hand rub Max Sterile Barrier Techniques used: cap, mask, sterile gown, sterile gloves and sterile full body drape Central line prep: Chlorhexidine scrub and sterile drapes applied Local anesthesia used: lidocaine 1% Ultrasound used for placement: Yes Sterile Technique if Ultrasound used, including sterile gel: yes Central line lumen inserted: triple Post procedure: sutured in place, good blood return, all ports aspirated, flushed, capped and sterile dressing applied Post procedure x-ray: tip of catheter in good position and no pneumothorax seen Patient tolerated procedure: well and no complications EBL(ml): 5 Complications: none
[2024-06-07 12:43] LABS: Misc Send Out* See Sep Rpt
[2024-06-07 12:53] LABS: Anion Gap 4 (7-16); BUN/Creatinine Ratio 25 Ratio (12-20); Blood Urea Nitrogen 30 mg/dL (9-23); Calcium 7.8 mg/dL (8.3-10.6); Carbon Dioxide 34.2 mMol/L (20.0-31.0); Chloride 101 mMol/L (98-107); Creatinine (Component) 1.2 mg/dL (0.6-1.3); Estimated Creatinine Clearance 75.3 mL/min (>60); Glucose 149 mg/dL (74-106); Osmolality,Calculated 286 (275-295); Potassium 4.9 mMol/L (3.4-5.1); Sodium 139 mMol/L (136-145); eGFR > 60 See Note
[2024-06-07 13:17] LABS: HIV 1/2 Confirmation* See Sep Rpt
[2024-06-07] MEDS: ROCURONIUM INJ 10 MG/ML VIAL 10 ML 70 MG IVP (13:59)
[2024-06-07] MEDS: MIDAZOLAM/NS 100 MG IVPB 100 MG/100 ML BAG IV (22:29)
[2024-06-07] MEDS: DEXMEDETOMIDINE 400 MCG IVPB 400 MCG/100 ML BAG 11.28 MCG IV (22:38)
[2024-06-08] VITALS (65 sets, daily range): BP systolic 96–197; BP diastolic 51–100; PULSE 72–143; RESP 21–36; TEMP 36.6–37.5; O2SAT 87–100
[2024-06-08 04:30] LABS: Base Excess 10 (-3-3); HCO3 35 mEq/L (20-26); Inspired Oxygen, FIO2 40 %; O2 Saturation 94 % (91-98); PCO2 50 mmHg (32.0-48.0); PO2 75 mmHg (83-108); pH, Arterial 7.45 (7.35-7.45)
[2024-06-08 04:32] LABS: Allen Test Not Performed; Puncture Site Arterial Line
--- NOTE | 2024-06-08 05:00 | XR_ITS ---
Examination: AP chest single view Technique one AP portable semiupright chest single view Exam date and time: June 08, 2024 at 0535 hrs. Comparison June 07, 2024, chest films dating to June 04, 2024 Indications: Pneumonia/ARDS, hypoxic respiratory failure on imaging this week Findings: Severe bilateral lung opacity No pneumothorax Endotracheal tube tip 6 cm above sunil The orogastric tube is in the stomach, the tip below the level of the film Right internal jugular temporary dialysis catheter tip SVC Osseous structures intact Impression: Severe bilateral pneumonia/ARDS pattern Endotracheal tube tip 6 cm above sunil
[2024-06-08] MEDS: PIPER/TAZO 3.375 GM 3.375 GM/50 ML BAG IV (05:01)
[2024-06-08] MEDS: TRIMETHOPRIM 160 MG/SULFA 800 MG SUSP 20 ML UDC 40 ML PO ×2 (05:02→12:22)
[2024-06-08 05:52] LABS: Basophils % (Auto) 0 % (0-2.5); Eosinophils % (Auto) 0 % (0-10); Hematocrit 32.2 % (41.0-53.0); Immature Granulocytes % (Auto) 1 % (0-0); Immature Granulocytes Auto 0.06 Thou/mm3 (0.00-0.00); Lymphocytes # (Auto) 0.2 Thou/mm3 (1.0-4.8); Lymphocytes % (Auto) 3 % (10-50); Mean Corpuscular HGB Conc 31.1 g/dl (31.0-37.0); Mean Corpuscular Hemoglobin 22.4 pg (25.0-35.0); Mean Corpuscular Volume 72 fL (80-100); Monocytes # (Auto) 0.1 Thou/mm3 (0.0-0.8); Monocytes % (Auto) 1 % (0-12); Neutrophils # (Auto) 6.9 Thou/mm3 (1.8-7.7); Neutrophils % (Auto) 95 % (37-80); Nucleated Red Blood Cell # 0.03 Thou/mm3 (0.00-0.00); Nucleated Red Blood Cell % 0 /100 WBC (0); Platelet Count 472 Thou/mm3 (140-440); RDW Standard Deviation 47.1 fL (35.1-43.9); Red Blood Count 4.47 Miln/mm3 (4.50-5.90); White Blood Count 7.3 Thou/mm3 (3.8-10.6)
[2024-06-08 06:26] LABS: Alanine Aminotransferase 658 U/L (10-49); Albumin, Serum 3.3 gm/dL (3.5-5.0); Alkaline Phosphatase 114 U/L (46-116); Anion Gap 4 (7-16); Aspartate Amino Transferase 318 U/L (0-34); BUN/Creatinine Ratio 29 Ratio (12-20); Bilirubin,Total 0.4 mg/dL (0.3-1.2); Blood Urea Nitrogen 35 mg/dL (9-23); Calcium 8.4 mg/dL (8.3-10.6); Carbon Dioxide 32.1 mMol/L (20.0-31.0); Chloride 100 mMol/L (98-107); Creatinine (Component) 1.2 mg/dL (0.6-1.3); Estimated Creatinine Clearance 75.3 mL/min (>60); Globulin 3.4 gm/dL (2.3-3.5); Glucose 148 mg/dL (74-106); Osmolality,Calculated 282 (275-295); Potassium 5.5 mMol/L (3.4-5.1); Sodium 136 mMol/L (136-145); Total Protein 6.7 gm/dL (5.7-8.2); eGFR > 60 See Note
[2024-06-08] MEDS: DEXMEDETOMIDINE 400 MCG IVPB 400 MCG/100 ML BAG 11.28 MCG IV (06:45)
[2024-06-08] MEDS: SOD POLYSTYRENE SULFON SUSP 15 GM/60 ML BTL 45 GM PO (08:38)
[2024-06-08] MEDS: PANTOPRAZOLE INJ 40 MG VIAL IVP (08:39)
[2024-06-08] MEDS: SOD POLYSTYRENE SULFON SUSP 15 GM/60 ML BTL PO (08:39)
[2024-06-08] MEDS: NICOTINE PATCH 14 MG/24 HR PATCH.TD24 TOP (08:40)
[2024-06-08] MEDS: CALCIUM CARBONATE 600 MG TABLET NG (08:40)
[2024-06-08] MEDS: ENOXAPARIN SOD INJ 40 MG/0.4 ML SYRINGE SC (08:40)
[2024-06-08] MEDS: FLUCONAZOLE/NS 400 MG IVPB 400 MG/200 ML BAG 100 MG IV (08:40)
--- NOTE | 2024-06-08 09:42 | XR_ITS ---
Examination: AP chest single view Technique one AP portable semiupright chest single view Exam date and time: June 08, 2024 0957 hours Comparison June 08, 2024 0535 hours INDICATIONS: O2 desaturation today shortness of breath, severe ARDS with hypoxic respiratory failure postintubation FINDINGS: Severe bilateral lung opacity No pneumothorax Endotracheal tube tip 4.8 cm above sunil Right internal jugular temporary dialysis catheter tip SVC Orogastric tube in the stomach tip below the level film IMPRESSION: Severe bilateral pneumonia ARDS pattern again noted
[2024-06-08] MEDS: DEXTROSE 50%-WATER INJ 50 ML SYRINGE 100 ML IV ×2 (09:52→17:05)
[2024-06-08] MEDS: INSULIN HUM REGULAR 1 UNIT/0.01 ML (PER UNIT) 10 UNIT IV ×2 (09:56→17:05)
[2024-06-08] MEDS: HALOPERIDOL LACT INJ 5 MG/ML VIAL 7.5 MG IV (10:11)
[2024-06-08] MEDS: ROCURONIUM INJ 10 MG/ML VIAL 10 ML 80 MG IV (10:13)
[2024-06-08] MEDS: QUEtiapine FUMARATE 25 MG TABLET 50 MG NG (10:18)
[2024-06-08] MEDS: fentaNYL 2,500 MCG/250 ML BAG 2,500 MCG/250 ML BAG 25 MCG IV ×2 (10:47→20:38)
[2024-06-08 11:10] LABS: Base Excess 3 (-3-3); HCO3 34 mEq/L (20-26); Inspired Oxygen, FIO2 100 %; O2 Saturation 92 % (91-98); PCO2 95 mmHg (32.0-48.0); PO2 89 mmHg (83-108)
[2024-06-08 11:13] LABS: Allen Test Not Performed; Puncture Site Arterial Line; pH, Arterial 7.17 (7.35-7.45)
--- NOTE | 2024-06-08 11:14 | ESPR_ITS ---
<Statement entered by Jennifer Velasco MD - 06/09/24 07:12> Patient was seen and examined by me personally. I have directly supervised and reviewed the above documentation by the team resident and agree with its findings with any exceptions or additional findings as below. Plan of care was discussed with the attending, Dr. Walsh. Jennifer Velasco, PGY-2 Documentation for date of: 06/08/24 Subjective Subjective Interval history: Mr. Owen is a 39-year-old male with no known previous past medical history who presented to [facility] on 05/27/2024 with a chief complaint of shortness of breath and cough. Patient had exhibited symptoms of chills, body aches, generalized weakness, fever, and night sweats progressively worsening over the prior weeks. He was admitted and initiated on empiric treatment for community-acquired pneumonia and cocci pneumonia, although cocci IgM returned negative twice this admission. Over the course of his hospitalization patient's oxygen requirements continued to worsen as he became more hypoxic worse with activity and movement. He had intermittent fevers and sinus tachycardia. All of the patient's culture testing has been negative thus far, including blood, urine, sputum, and MRSA screening. HIV test returned equivocal, possible positive and was sent out for confirmatory testing. Primary team had thomas consulted Dr. Anderson, Finishing Frame Runner for recommendations. There is a suspicion for pneumocystis pneumonia given the preliminary result therefore the patient was started on TMP-SMX. Beta-(1,3)-D-glucan testing was also positive (>500). 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 He did endorse a history of incarceration in 2006. TB quantiferon was indeterminate on 05/31. He denies any recent travel, sick contacts, or contact with anyone that may have had recent international travel. Patient last was in ICU 05/30/2024-05/31/2024 for increased work of breathing on HiFlow and fever, was started on steroids and monitored closely but no intubation at that time. He was downgraded to floors after decrease in FiO2 needs and improvement in respiratory status. 06/05/2024 rapid response was called around 10:15 am for patient desaturation to 70s while on HiFlow 30L at 100% FiO2, which occurred at least twice this morning while patient was moving. Patient this morning was reporting increased work of breathing and dyspnea upon any movement sitting up or out of the bed to urinate. Patient also had rapid response for similar episodes last night. When examined he appeared laying flat in the bed with nonlabored breathing, however is diaphoretic and repeatedly complaining of dyspnea. Decision was made to upgrade patient to ICU again for intubation due to impending respiratory failure and bronchoscopy for further diagnotic data. 06/06/2024: Patient was seen and examined by the bedside. Yesterday patient was intubated, was started on sedation and paralytics. Today, his oxygen requirements decreased to FiO2 40%, cistracurium was discontinued. Propofol and heparin were discontinued due to concern for WILL. Patient continues to have urine output >100 ml/hr. Patossium level in the AM was >7, patient received insulin 10Ux2, kayexalate, calcium gluconate, repeat K is pending. Will continue with current antibiotic regimen and steroids. BAL cultures and fungal cultures results are pending. Contacte lab for possibility of silver stain of BAL samples. Confirmatory HIV test is pending. We spoke to the decision maker Francesca Owen regarding the transfer. At this time patient condition does not require a transfer and patient is under adequate care at [facility]. The process of transfer was explained to the Francesca and she does not requesting transfer at the moment. Patient's condition and plan of treatment were explained to her, all questions were answered. Later in the day, patient's potassium levels continues to be increased. He received insulin, kayexalate, albuterol again. Dr. Song was consulted, pending recommendations. Francesca Owen was contacted, she was given update on his condition and she was made aware that in case his potassium continues to be elevated, it would require emergent hemodialysis. Consent for temporary dialysis catheter placement was obtained. Procedure was explained to the desicion maker. His mother was also at the bedside, she was also given updates on the patient's condition using lang interpreter service. All question were answered. 06/07/2024: Patient was seen and examined by the bedside. No acute overnight events. Yesterday patient was emergently hemodialyzed, today potassium levels are normal. Patient continues to be on fentanyl, Precedex, Ativan. He is opening his eyes to the touch, his name, tries to sit up. Called the lab, waiting for callback regarding the HIV PCR status that was done on 05/27/24. Still pending silver stain of BAL fluid. Will repeat ABGs today as the morning were drawn when the patient was on 100% FiO2. Will also repeat CT chest with contrast. Will also explore the idea of different causes of the lung injury. His sister reports that he has been smoking a pack a day since being a teenager and also smokes marijuana and wax pens. She is not exactly sure how often did he smoked marijuana pen. She brought a bag from his home that contained syringe in packaging, bottles with testosteron and trenbolone markings, marijuana smoking pen and artificial urine. Cytology and silver stain of BAL from the right lung revealed organisms consistent with Pneumocystis jiroveci and as well as other fungus, possibly Kassandra. Discussed with patient's sister results and explained that one of the possible reasons for decreased immunity causing Pneumocystis pneumonia. Also gave update on the patient's condition to the mother using lang interpreter service. HIV PCR is still pending, called lab for update, still waiting. Sent repeat HIV tests again today 06/07/24. Patient continues to receive bactrim, fluconazole and zosyn. 06/08/2024: Patient was seen and examined by the bedside. No acute overnight events. In the morning patient started to get agitated, his saturation decreased to <80%, during suctioning bloody fluid started to come out. He received Ativan, Seroquel and was started on cisatracurium. Repeat suctioning and flushing of the tube were done until the fluid came out clear. Repeat chest x- ray showed bilateral pneumonia, ET tube 4.8 cm above the sunil. FiO2 was changed to 100%, respiratory rate to 32, tidal volume to 375, PEEP to 11. HIV PCR: showed 5,660,000 copies. Due to patient continuing having SaO2 in the low 90s, patient was put in prone position, SaO2 went up to 95%. Patient's decision maker, Francesca, was informed of his condition and was given update. Exam Vital Signs Temp Pulse Resp BP Pulse Ox O2 Del Method O2 Flow Rate 98.8 F 125 H 32 H 108/90 H 93 L Mechanical Ventilation 40 06/08/24 04:00 06/08/24 09:52 06/08/24 08:59 06/08/24 09:52 06/08/24 09:52 06/07/24 18:00 06/06/24 22:05 FiO2 100 06/08/24 09:52 Narrative Exam Gen: Well-developed and well-nourished. Sedated. HEENT: NCAT, PERRLA, EOMI, MMM, anicteric conjunctivae. CVS: normal S1 and S2. RRR. No M/R/G. Resp: Coarse breathing bilaterally. Abd: soft, non-tender, non-distended. BS+ in all 4 quadrants. MSK: Good ROM in BUE & BLE. No edema or rash. Multiple tattoos present. Neuro: No gross focal neurological finding. Psych: Impossible to assess. Objective Labs 06/23/24 04:24 06/23/24 04:24 Labs: Laboratory Results - last 24 hr 06/07/24 06/07/24 06/08/24 12:06 12:28 04:20 WBC RBC Hgb Hct MCV MCH MCHC RDW Std Deviation Plt Count Neut % (Auto) Lymph % (Auto) [place] % (Auto) Eos % (Auto) Baso % (Auto) Neut # (Auto) Lymph # (Auto) [place] # (Auto) Eos # (Auto) Baso # (Auto) Immature Gran # (Auto) Absolute Nucleated RBC Immature Gran % Nucleated RBC % Puncture Site Arterial Line ABG pH 7.45 ABG pCO2 50 H ABG pO2 75 L ABG HCO3 35 H ABG O2 Saturation 94 ABG Base Excess 10 H FiO2 40 Sodium 139 Potassium 4.9 Chloride 101 Carbon Dioxide 34.2 H Anion Gap 4 L BUN 30 H Creatinine 1.2 Estim Creat Clear Calc 75.3 eGFR > 60 BUN/Creatinine Ratio 25 H Glucose 149 H Calculated Osmolality 286 Calcium 7.8 L Corrected Calcium Total Bilirubin AST ALT Alkaline Phosphatase Total Protein Albumin Globulin Albumin/Globulin Ratio HIV 1&2 Antibody Rapid See Comment Misc Test Result See Sep Rpt 06/08/24 06/08/24 05:38 11:05 WBC 7.3 RBC 4.47 L Hgb 10.0 L Hct 32.2 L MCV 72 L MCH 22.4 L MCHC 31.1 RDW Std Deviation 47.1 H Plt Count 472 H Neut % (Auto) 95 H Lymph % (Auto) 3 L [place] % (Auto) 1 Eos % (Auto) 0 Baso % (Auto) 0 Neut # (Auto) 6.9 Lymph # (Auto) 0.2 L [place] # (Auto) 0.1 Eos # (Auto) 0.0 Baso # (Auto) 0.0 Immature Gran # (Auto) 0.06 H Absolute Nucleated RBC 0.03 H Immature Gran % 1 H Nucleated RBC % 0 Puncture Site Arterial Line ABG pH 7.17 L* D ABG pCO2 95 H* D ABG pO2 89 ABG HCO3 34 H ABG O2 Saturation 92 ABG Base Excess 3 FiO2 100 Sodium 136 Potassium 5.5 H D Chloride 100 Carbon Dioxide 32.1 H Anion Gap 4 L BUN 35 H Creatinine 1.2 Estim Creat Clear Calc 75.3 eGFR > 60 BUN/Creatinine Ratio 29 H Glucose 148 H Calculated Osmolality 282 Calcium 8.4 Corrected Calcium 9.0 Total Bilirubin 0.4 AST 318 H ALT 658 H* Alkaline Phosphatase 114 D Total Protein 6.7 Albumin 3.3 L Globulin 3.4 Albumin/Globulin Ratio 1.0 L HIV 1&2 Antibody Rapid Misc Test Result ABG Interpretation ABG results: 05/27/24 05/29/24 05/29/24 23:37 10:44 22:08 ABG pH 7.51 H 7.50 H 7.48 H ABG pCO2 28 L 32 32 ABG pO2 75 L 79 L 145 H D ABG HCO3 23 25 24 ABG O2 Saturation 96 95 98 ABG Base Excess 0 2 1 05/30/24 05/31/24 06/04/24 08:45 04:54 02:10 ABG pH 7.47 H 7.45 7.45 ABG pCO2 35 38 36 ABG pO2 86 D 82 L 139 H ABG HCO3 26 26 25 ABG O2 Saturation 97 96 98 ABG Base Excess 2 2 1 06/04/24 06/05/24 06/05/24 18:16 11:36 12:59 ABG pH 7.44 7.11 L* D 7.20 L ABG pCO2 36 94 H* D 68 H D ABG pO2 80 L D 150 H D 121 H D ABG HCO3 24 30 H 26 ABG O2 Saturation 94 97 97 ABG Base Excess 0 -2 -3 06/05/24 06/06/24 06/06/24 19:25 04:13 15:27 ABG pH 7.22 L 7.27 L 7.30 L ABG pCO2 64 H 57 H 60 H ABG pO2 122 H 153 H D 74 L D ABG HCO3 26 26 29 H ABG O2 Saturation 97 99 H 92 ABG Base Excess -3 -2 2 06/07/24 06/07/24 06/08/24 03:55 09:59 04:20 ABG pH 7.41 D 7.43 7.45 ABG pCO2 56 H 55 H 50 H ABG pO2 293 H D 78 L D 75 L ABG HCO3 36 H 37 H 35 H ABG O2 Saturation 99 H 95 94 ABG Base Excess 10 H 11 H 10 H 06/08/24 11:05 ABG pH 7.17 L* D ABG pCO2 95 H* D ABG pO2 89 ABG HCO3 34 H ABG O2 Saturation 92 ABG Base Excess 3 Quality Measures Quality Measures sepsis Current suspected stage: sepsis Possible source: pulmonary, GI tract/intra-abdominal, genitourinary and skin/soft tissue Blood cultures ordered: yes Antibiotic ordered: Yes Assessment & Plan Assessment Current Active Medications: Generic Name Dose Route Start Last Admin Trade Name Freq PRN Reason Stop Dose Admin Acetaminophen 1,000 mg 05/29/24 15:38 05/30/24 17:57 Acetaminophen 500 Mg Tablet PO 06/26/24 12:10 1,000 mg Q6H PRN Administration Pain 1-3 and Fever >101.5 Albuterol/Ipratropium 3 ml 06/05/24 11:40 06/06/24 16:43 Albuterol/Ipratropium (Duoneb) Rt Munira 3 Ml Nebu INH 07/05/24 14:59 3 ml Q4HRRT PRN Administration Wheezing Calcium Carbonate 600 mg 06/06/24 09:00 06/08/24 08:40 Calcium Carbonate 600 Mg Tablet NG 07/06/24 08:59 600 mg QDAY JUAN JOSE Administration Chlorpromazine HCl 25 mg 06/04/24 14:15 06/05/24 05:16 Chlorpromazine 25 Mg Tablet PO 07/04/24 14:14 25 mg TID JUAN JOSE Administration Dextrose 25 ml 06/06/24 08:20 Dextrose 50%-Water Inj 50 Ml Syringe IV 07/06/24 08:19 Q15MIN PRN BG 50-70 responsive npo pt Dextrose 50 ml 06/06/24 08:20 Dextrose 50%-Water Inj 50 Ml Syringe IV 07/06/24 08:19 Q15MIN PRN BG <50 OR BG <70 & pt unresponsive Enoxaparin Sodium 40 mg 06/07/24 09:00 06/08/24 08:40 Enoxaparin Sod Inj 40 Mg/0.4 Ml Syringe SC 06/21/24 08:59 40 mg QDAY JUAN JOSE Administration Glucagon 1 mg 06/06/24 08:20 Glucagon Inj 1 Mg Vial IM Q15MIN PRN BG <70, and no IV access Heparin Sodium (Porcine) 2,200 unit 06/06/24 20:40 06/06/24 21:57 Heparin Sod Inj 1000 Unit/Ml Vial 10 Ml INDWELLCAT 06/12/24 20:39 2,200 unit X1 PRN Administration DIALYSIS Piperacillin/Tazobactam/Dextrose 3.375 gm in 50 mls @ 12.5 mls/hr 06/01/24 14:00 06/08/24 05:01 Zosyn IV 06/08/24 13:59 12.5 mls/hr Q8HR JUAN JOSE Administration Protocol Fentanyl Citrate 2,500 mcg in 250 mls @ 2.5 mls/hr 06/05/24 10:38 06/08/24 10:47 Sublimaze Inj 2,500 Mcg/250 Ml Bag IV 06/10/24 10:37 250 mcg/hr .Q24H PRN 25 mls/hr PER PROTOCOL Administration Protocol 25 MCG/HR Cisatracurium Besylate 200 mg/ 520 mls @ 13.303 mls/hr 06/05/24 12:05 06/06/24 10:08 Sodium Chloride IV 07/05/24 12:04 0 mcg/kg/min .Q24H PRN 0 mls/hr Per Protocol Titration Protocol 1 MCG/KG/MIN Midazolam HCl 100 mg in 100 mls @ 1 mls/hr 06/05/24 12:15 06/08/24 06:00 Versed Pf Inj In Ns Premix IV 06/10/24 12:14 5 mg/hr .Q24H PRN 5 mls/hr PER PROTOCOL Titration Protocol 1 MG/HR Norepinephrine/Dextrose 8 mg in 250 mls @ 7.05 mls/hr 06/06/24 04:07 06/07/24 10:07 Levophed In D5w 8mg/250ml IV 07/06/24 04:06 0 mcg/kg/min .Q24H PRN 0 mls/hr PER PROTOCOL Titration Protocol 0.05 MCG/KG/MIN Fluconazole 400 mg in 200 mls @ 100 mls/hr 06/06/24 07:30 06/08/24 08:40 Diflucan/Ns Ivpb IV 06/13/24 07:29 100 mls/hr QDAY JUAN JOSE Administration Dexmedetomidine/Sodium Chloride 400 mcg in 100 mls @ 3.76 mls/hr 06/06/24 14:33 06/08/24 06:45 Precedex Ivpb IV 07/06/24 14:32 0.6 mcg/kg/hr .Q24H PRN 11.28 mls/hr Per PROTOCOL Administration Protocol 0.2 MCG/KG/HR Methylprednisolone Sodium Succinate 40 mg 06/05/24 13:21 06/08/24 05:01 Methylprednisolone Sod Succ 40 Mg Vial IVP 06/12/24 13:20 40 mg Q8HR JUAN JOSE Administration Nicotine 14 mg 05/28/24 09:00 06/08/24 08:40 Nicotine Patch 14 Mg/24 Hr Patch.Td24 TOP 06/27/24 08:59 14 mg QDAY JUAN JOSE Administration Ondansetron HCl 4 mg 05/29/24 21:51 06/04/24 17:44 Ondansetron Inj 2 Mg/Ml Inj 2 Ml IV 06/28/24 21:50 4 mg Q6HR PRN Administration NAUSEA OR VOMITING Protocol Pantoprazole Sodium 40 mg 06/06/24 09:00 06/08/24 08:39 Pantoprazole Inj 40 Mg Vial IVP 07/06/24 08:59 40 mg QDAY JUAN JOSE Administration Promethazine HCl/Dextromethorphan 5 ml 05/28/24 16:56 05/30/24 02:34 Promethazine/Dm Syrup 5 Ml Dose PO 06/27/24 16:55 5 ml Q4HR PRN Administration COUGH Protocol Rocuronium [place] 80 mg 06/08/24 11:12 Rocuronium Inj 10 Mg/Ml Vial 10 Ml IVP 06/08/24 11:13 X1 ONE Sennosides 1 tab 05/27/24 12:11 Senna Tablet PO 06/26/24 12:10 QDAY PRN constipation Protocol Sodium Polystyrene Sulfonate 15 gm 06/05/24 09:00 06/08/24 08:39 Sod Polystyrene Sulfon Susp 15 Gm/60 Ml Btl PO 07/05/24 08:59 15 gm QDAY JUAN JOSE Administration Trimethoprim/Sulfamethoxazole 40 ml 06/05/24 12:00 06/08/24 05:02 Trimethoprim 160 Mg/Sulfa 800 Mg Susp 20 Ml Udc PO 06/12/24 11:59 40 ml QID JUAN JOSE Administration Plan This is a 39-year-old gentleman with no known previous past medical history who initially presented to [facility] on 05/27/2024 with a chief complaint of shortness of breath and cough, and recent history of chills, body aches, generalized weakness, fever, and night sweats progressively worsening over the prior weeks, subsequently admitted for acute hypoxic respiratory failure secondary to bilateral community-acquired pneumonia. He has had multiple rapid response alerts during the course of hospitalization for increasing oxygen requirements and recurrent fevers. He was monitored in ICU from 05/30-05/31, now currently upgraded to ICU again 06/05 for intubation and bronchoscopy. NEURO Prior to intubation, patient is awake, alert, and oriented x3, following commands, conversational. #No active problem, sedated -Fentanyl, midazolam and precedex with a RASS goal of -4 -Cisatracurium, train of four goal 2 out 4 twitches. CARDIO #Septic shock, resolved #Sinus tachycardia Most likely shock is due to sepsis landaverde to bilateral pneumonia. Tachycardia most likely secondary to respiratory distress and agitation. BP has been maintaining MAP >65. -Continuous telemetry -Echo was read 06/06: EF 55-60% PULM #Acute hypoxic respiratory failure Secondary to #Bilateral pneumocystis jirovecii pneumonia Patient presented with dyspnea and cough, requiring 4L NC on first ED evaluation, and history of chills, body aches, generalized weakness, fever, and night sweats progressively worsening over the prior weeks. Over hospitalization patient supplemental O2 requirements increased, requiring HiFlow by the second day. He has been treated empirically for community acquired pneumonia, but continues to have worsening respiratory status. Follow up CXRs continue to show worsening fluffy bilateral extensive infiltrates. Ddx: Infectious pneumonia bacterial vs fungal vs less likely viral, autoimmune causes, drug-induced causes. Negative studies: Cocci IgM and IgG, Hepatitis panel, Syphilis, Legionella, H.flu, N.meningitidis, Strep B, Strep pneumoniae, COVID, RSV, Flu A & B. Indeterminate: TB quantiferon GOLD Positive: Beta-(1,3)-D-Glucan 06/05/2024 Bronchoscopy completed today, which showed normal-appearing mucosa and no mucous plugging, hemorrhage, or friability bilaterally. Sandra stain of BAL showed PJP and other fungi, possibly Kassandra. Kassandra is most likely a contaminant. Fungal cultures are pending. Bronchoalveolar washings culture were negative for growth. Tx: -Continue Bactrim, Zosyn, fluconazole -Fungal culture pending -DuoNebs q4h as needed #ARDS Patient continues to have increased oxygen demands with worsening bilateral infiltrates on CXR. Will maintain ARDS ventilation protocol. Ddx: In setting of worsening pneumonia. In the morning 06/06, vent settings were: VT 486, RR32, FiO2 60, downtitrated to the FiO2 40%. ABG: pH 7.24, pCO2 57, pO2 153. P:F ratio is 153/0.6=255. Mild ARDS. 06/08/24 P:F ratio 89/1=89. Severe ARDS. Tx: -Will try to downtitrate FiO2 -Low tidal volume ventilation, will try to keep TV ~380 according to 6 mL/kg predicted body weight -Maintain peak plateau <30 -Permissive hypercapnia -Follow up ABG -Methylprednisolone 40 mg q8h GI Prophylaxis: Pantoprazole 40 mg IV qday #Elevated LFTs Likely due to propofol and bactrim. Mildly elevated, liver US 05/30/2024 showed normal gallbladder and hepatomegaly without lesions or evidence of obstructions. Hep panel negative. LFTs significantly increased compared to 06/06/24. -Continue monitoring NEPHRO #WILL, improving #Hyperkalemia #Hyperphosphatemia #Hyponatremia, resolved #Non-anion gap respiratory acidosis Ddx: Prerenal WILL due to hypotension vs possible rhabdomyolysis vs drug toxicity (zosyn, vancomycin) Urine output is >100 ml/hr, urine is yellow and clear. Possible underlying SIADH. CK level 06/06: 511. Phosphate 06/06: 6.9 PAtient received insulin 10U 2 times, had 1 duoneb inhalation. Plan: -Monitor CMP, repeat potassium - Kayexalate 15 mg qday + 45 mg once - Insulin 10u+ d50% - in case increasing hyperkalemia patient will need emergent dialysis today URO #No active problems -Tijerina placed 06/05/2024 HEME #Microcytic anemia Clinically no evidence of bleeding. Iron panel shows iron 17, TIBC 262, iron saturation 6, unsaturated iron binding 245. Peripheral blood film confirms microcytic hypochromic anemia with target cells. Patient hemoglobins stable, does not require transfusion at the moment, PT, INR, PTT within normal range. Plan: -Monitor H&H. Transfusing for Hgb <7 #Leukocytosis, resolved In the setting of likely infection and corticosteroids. Plan: -Treatment of pneumonia as above #Thrombocytosis Likely reactive. -Continue to monitor ENDO #No active problems ID #Bilateral pneumocystis pneumonia Negative studies: Cocci IgM and IgG, Hepatitis panel, Syphilis, Legionella, H.flu, N.meningitidis, Strep B, Strep pneumoniae, COVID, RSV, Flu A & B. Indeterminate: TB quantiferon GOLD Positive: Beta-(1,3)-D-Glucan Silver stain of BA washings positive for Pneumocystis. HIV PCR positive. Patient completed 5 day course of azithromycin. Plan: -Continue Zosyn, Bactrim, fluconazole -PPD placed 06/04/2024 at 18:47, read due at 06/06/2024 18:47 right forearm -ID following, antiretroviral therapy recommendations pending MSK #No active problems SKIN #No active problems DVT prophylaxis: none GI prophylaxis: Pantoprazole 40 mg IV qday Diet: tube feeds Nepro Tijerina: Present (06/05- ) Lines: Peripheral IV, Right radial arterial line, central line Antibiotics: Zosyn, Bactrim, fluconazole CODE STATUS: FULL CODE Reason for ICU care: Acute hypoxic respiratory failure secondary to bilateral pneumonia/ARDS Plan of care discussed with attending Dr. Walsh, PGY-[address] Velasco and PGY-[address] Santos. Denise Pinzon MD, PGY 1.
[2024-06-08] MEDS: ROCURONIUM INJ 10 MG/ML VIAL 10 ML 80 MG IVP (11:18)
[2024-06-08] MEDS: CISATRACURIUM INJ 200 MG in SODIUM CHLORIDE 0.9% 500 ML 500 ML 13.303 MG IV (11:24)
--- NOTE | 2024-06-08 11:35 | ESPR_ITS ---
Documentation for date of: 06/08/24 Subjective Subjective Interval history: This is a 39-year-old male who presented to the ER on 27 May. Initially he presented for shortness of breath cough and general malaise. Apparently he had been feeling unwell for the last 2 to 3 weeks. He did have some nonproductive cough. Chest x-ray showed bilateral diffuse infiltrates and the medicine team was contacted. He was admitted to the floor and placed on high flow nasal cannula initially at 100% FiO2 and started on antibiotics. He was started on fluconazole as well as Levaquin given that there was a high suspicion for underlying cocci pneumonia. He has had 2 rapid responses over the last 48 hours due to hypoxia and desatting. The patient is able to tolerate minimal movements prior to desatting. Today the ICU is consulted for further evaluation. The patient is currently on 80% FiO2 he is awake alert and oriented. He states that he has shortness of breath however minimal cough. He does complain of some upper abdominal/lower rib pain which he attributes to his recent cough. He denies any chest pain. Does note that he has had some night sweats and fever over the last several days. There has been no significant improvement since arrival 3 days ago. His respiratory status remains unchanged if not slightly worse. He is currently on isolation with airborne precautions behind a closed door. At this point in time due to an abundance of caution as well as closer observation and monitoring we will transfer to the ICU for ongoing management of his acute hypoxic respiratory failure. I did discuss with the patient the probable need for intubation in the near future. He is okay with intubation 05/31- no acute overnight events, decrease in FiO2 needs, feels better with less WOB today, afebrile, 06/05-patient had been returned to the floor where initially he did well. Apparently over the last 24 to 36 hours he has had an increase in FiO2 requirements with a rapid response called last night. Rapid response called again this morning. Patient stated that he felt tired and unable to keep up. He is on 100% FiO2. He desats with minimal exertion. The decision was made to bring him to the ICU for intubation. This was discussed with the patient while he was awake and his family as well. 06/06- overnight pt remained on NMB, versed/prop/fent. brisk UOP >100cc/hr , afebrile, labs this AM showed a K of 7.8 for which he received insulin/Ca/D50/kayexolate 06/07-patient underwent dialysis yesterday for refractory hyperkalemia, he remains on deep sedation however off of propofol and off of paralytic. Continues with a good urinary output. Afebrile, have been able to come down on his FiO2 however persistent bilateral infiltrates severe on exam without conclusive underlying etiology as of this point in time. 06/08-no acute overnight events, this a.m. attempted to decrease sedation however patient became agitated and desatted. Required increased to 100% FiO2. When patient was suctioned blood was returned from the ET tube. Patient required paralytic and bagging in order to improve his sats. Critical Care Note Critical care time (min.): 70 Exam Vital Signs Temp Pulse Resp BP Pulse Ox O2 Del Method O2 Flow Rate 98.8 F 125 H 32 H 108/90 H 93 L Mechanical Ventilation 40 06/08/24 04:00 06/08/24 09:52 06/08/24 08:59 06/08/24 09:52 06/08/24 09:52 06/07/24 18:00 06/06/24 22:05 FiO2 100 06/08/24 09:52 Narrative Exam General-intubated, sedated, normal body habitus HEENT-normocephalic, atraumatic, sclera icteric, pupils equal reactive, oral mucosa is hydrated, ET tube and OG tube in place Chest-breath sounds diminished, no expiratory wheezes no crackles auscultated, heart regular rhythmic, tachycardic, no bruits or murmurs, nonsynchronous with the vent Abdomen-soft, nontender, bowel sounds present, no rebound or guarding Extremities-no edema, pulses palpable, no clubbing or cyanosis, no mottling, patient does move all 4 Vent AC/VC Drips Fentanyl Versed Precedex Physical Exam Completion Physical Exam Complete?: Yes Objective - Sampler Radioactive Waste Labs 06/08/24 05:38 06/08/24 05:38 Labs: Laboratory Results - last 24 hr 06/07/24 06/07/24 06/08/24 12:06 12:28 04:20 WBC RBC Hgb Hct MCV MCH MCHC RDW Std Deviation Plt Count Neut % (Auto) Lymph % (Auto) [place] % (Auto) Eos % (Auto) Baso % (Auto) Neut # (Auto) Lymph # (Auto) [place] # (Auto) Eos # (Auto) Baso # (Auto) Immature Gran # (Auto) Absolute Nucleated RBC Immature Gran % Nucleated RBC % Puncture Site Arterial Line ABG pH 7.45 ABG pCO2 50 H ABG pO2 75 L ABG HCO3 35 H ABG O2 Saturation 94 ABG Base Excess 10 H FiO2 40 Sodium 139 Potassium 4.9 Chloride 101 Carbon Dioxide 34.2 H Anion Gap 4 L BUN 30 H Creatinine 1.2 Estim Creat Clear Calc 75.3 eGFR > 60 BUN/Creatinine Ratio 25 H Glucose 149 H Calculated Osmolality 286 Calcium 7.8 L Corrected Calcium Total Bilirubin AST ALT Alkaline Phosphatase Total Protein Albumin Globulin Albumin/Globulin Ratio HIV 1&2 Antibody Rapid See Comment Misc Test Result See Mar Rpt 06/08/24 06/08/24 05:38 11:05 WBC 7.3 RBC 4.47 L Hgb 10.0 L Hct 32.2 L MCV 72 L MCH 22.4 L MCHC 31.1 RDW Std Deviation 47.1 H Plt Count 472 H Neut % (Auto) 95 H Lymph % (Auto) 3 L [place] % (Auto) 1 Eos % (Auto) 0 Baso % (Auto) 0 Neut # (Auto) 6.9 Lymph # (Auto) 0.2 L [place] # (Auto) 0.1 Eos # (Auto) 0.0 Baso # (Auto) 0.0 Immature Gran # (Auto) 0.06 H Absolute Nucleated RBC 0.03 H Immature Gran % 1 H Nucleated RBC % 0 Puncture Site Arterial Line ABG pH 7.17 L* D ABG pCO2 95 H* D ABG pO2 89 ABG HCO3 34 H ABG O2 Saturation 92 ABG Base Excess 3 FiO2 100 Sodium 136 Potassium 5.5 H D Chloride 100 Carbon Dioxide 32.1 H Anion Gap 4 L BUN 35 H Creatinine 1.2 Estim Creat Clear Calc 75.3 eGFR > 60 BUN/Creatinine Ratio 29 H Glucose 148 H Calculated Osmolality 282 Calcium 8.4 Corrected Calcium 9.0 Total Bilirubin 0.4 AST 318 H ALT 658 H* Alkaline Phosphatase 114 D Total Protein 6.7 Albumin 3.3 L Globulin 3.4 Albumin/Globulin Ratio 1.0 L HIV 1&2 Antibody Rapid Misc Test Result Assessment & Plan Additional Assessment Additional Assessment: In brief this is a 39y M admitted for SOB and acute hypoxic resp failure with b/l PNA. a/p [employer] HEAD END sedated and will reparalyzed today CV Tachycardia-resolved Resp Acute hypoxic resp failure- Intubated and on mechanical ventilation, follow-up with chest x-ray and ABGs Unclear underlying etiology of his bilateral infiltrates. The patient's beta D glucan did return positive. The rest of his workup is either negative or pending. He has been seen by ID and recommendations are appreciated. Bronchoscopy performed 06/05 and BAL fluid was rather bland in appearance without evidence of diffuse alveolar hemorrhage -> cx NTD - on zosyn and bactrim - solumedrol 40mg q6 -Silver stain returned positive for pneumocystis ARDS-attempting low tidal volume ventilation again today - plateaus less than 30 -PF ratio of 150 -> 255 -> 195->89 - maintain sats >88% - permissive hypercapnea - BAL sample shows no bacteria with mult WBC-> grew out pneumocystis -Worsening condition this morning -Have started paralytic with goal 2 out of 4 twitches -Will prone today Renal HypoNa- 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 monitor - resolved today HyperK- pts K jumped to 7.8 on 06/06 - tx with insulin/D50/Ca and kayexolate - repeat shows continued elevation therefore given another round of kayexolate 45g - ? BRAYAN vs heparin vs bactrim -> prop and heparin stopped - underwent emergent HD 06/06 - event felt to be 2/2 BRAYAN -K slightly elevated today -> question secondary to Bactrim -If remains persistently minimally elevated will discuss with ID possible change from Bactrim WILL- prerenal v intrarenal - improved from yesterday - on free water - ? 2/2 poss BRAYAN GI Transaminitis- Hep viral panel is neg, - US shows some mild hepatomegaly - ? if related to underlying pulm process - sharp jump up today - ? related to ischemic insult vs drug toxicity given his abnl yesterday - prop DCd -Improved AST with worsening ALT -Eval current meds to see what may be hepatotoxic and will can be stopped GI proph- PPI Endo Hyperglycemia- 2/2 steroids, monitor Heme Microcytic Anemia- check an iron panel. Has dropped from 12 to 10 since arrival. No active bleeding noted - iron panel shows iron def Thrombocytosis- likely reactive dVT proph- lovenox Leukocytosis- 2/2 underlying process -Resolved ID PNA- on broad spectrum abx with cx pending - cx are NTD - seen by ID - on bactrim and zosyn - PPD neg - B D glucan pos - touched base with ID HIV/ AIDS- will need HAART tx -> fu with ID - JAYME proph if CD4 <50 case d/w ICU team and family at bedside Yesterday family brought in additional substances the patient has been utilizing which included needles and testosterone and steroids which he had purchased in [place]. labs, imaging, records reviewed ~70ccmin required for eval, exam, review, intervention , discussion and formulation of POC for this critically ill pt with resp failure at high risk for further and ongoing decompensation Provider Notation Provider Notation: Although this document has been carefully reviewed, there may still be some phonetic and other typographical errors. These errors are purely grammatical due to imperfections in the software program and should not be construed in any way to compromise the substance of the patient's medical care during this visit. Thank you for the opportunity and privilege in assisting you with this patient's care and management.
[2024-06-08 12:00] LABS: Base Excess 4 (-3-3); HCO3 36 mEq/L (20-26); O2 Saturation 84 % (91-98); PCO2 115 mmHg (32.0-48.0); PO2 75 mmHg (83-108)
[2024-06-08 12:11] LABS: Allen Test Not Performed; Inspired Oxygen, FIO2 100 %; Puncture Site Right Radial
[2024-06-08] MEDS: DEXMEDETOMIDINE 400 MCG IVPB 400 MCG/100 ML BAG 18.8 MCG IV ×3 (12:15→21:40)
[2024-06-08 12:50] LABS: Potassium 5.9 mMol/L (3.4-5.1)
[2024-06-08 13:26] LABS: Base Excess 0 (-3-3); HCO3 31 mEq/L (20-26); Inspired Oxygen, FIO2 80 %; O2 Saturation 85 % (91-98); PCO2 88 mmHg (32.0-48.0); PO2 72 mmHg (83-108)
--- NOTE | 2024-06-08 13:27 | PD.IDPROG ---
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 if crypto neg. can cut the flucon to 200/day. ok to start hiv rx with pos vl. if pt to remain intubated, then decision makers should be aware of his hiv. rx has limited short term benefits. delay in confirmatory test is notable. Exam Vital Signs Temp Pulse Resp BP Pulse Ox O2 Del Method O2 Flow Rate 98.8 F 125 H 32 H 108/90 H 93 L Mechanical Ventilation 40 06/08/24 04:00 06/08/24 09:52 06/08/24 08:59 06/08/24 09:52 06/08/24 09:52 06/07/24 18:00 06/06/24 22:05 FiO2 100 06/08/24 09:52 Narrative Exam proned. main focus should be rx of the pjp. hiv rx can be delayed, O2 need notably variable. was on 40% on thursday for example and proned today and on 80% fiO2 Objective - Internal Medicine Labs 06/08/24 05:38 06/08/24 12:28 Labs: Laboratory Results - last 24 hr 06/07/24 06/08/24 06/08/24 12:28 04:20 05:38 WBC 7.3 RBC 4.47 L Hgb 10.0 L Hct 32.2 L MCV 72 L MCH 22.4 L MCHC 31.1 RDW Std Deviation 47.1 H Plt Count 472 H Neut % (Auto) 95 H Lymph % (Auto) 3 L [place] % (Auto) 1 Eos % (Auto) 0 Baso % (Auto) 0 Neut # (Auto) 6.9 Lymph # (Auto) 0.2 L [place] # (Auto) 0.1 Eos # (Auto) 0.0 Baso # (Auto) 0.0 Immature Gran # (Auto) 0.06 H Absolute Nucleated RBC 0.03 H Immature Gran % 1 H Nucleated RBC % 0 Puncture Site Arterial Line ABG pH 7.45 ABG pCO2 50 H ABG pO2 75 L ABG HCO3 35 H ABG O2 Saturation 94 ABG Base Excess 10 H FiO2 40 Sodium 136 Potassium 5.5 H D Chloride 100 Carbon Dioxide 32.1 H Anion Gap 4 L BUN 35 H Creatinine 1.2 Estim Creat Clear Calc 75.3 eGFR > 60 BUN/Creatinine Ratio 29 H Glucose 148 H Calculated Osmolality 282 Calcium 8.4 Corrected Calcium 9.0 Total Bilirubin 0.4 AST 318 H ALT 658 H* Alkaline Phosphatase 114 D Total Protein 6.7 Albumin 3.3 L Globulin 3.4 Albumin/Globulin Ratio 1.0 L Misc Test Result See Sep Rpt 06/08/24 06/08/24 06/08/24 11:05 11:50 12:28 WBC RBC Hgb Hct MCV MCH MCHC RDW Std Deviation Plt Count Neut % (Auto) Lymph % (Auto) [place] % (Auto) Eos % (Auto) Baso % (Auto) Neut # (Auto) Lymph # (Auto) [place] # (Auto) Eos # (Auto) Baso # (Auto) Immature Gran # (Auto) Absolute Nucleated RBC Immature Gran % Nucleated RBC % Puncture Site Arterial Line Right Radial ABG pH 7.17 L* D 7.10 L* ABG pCO2 95 H* D 115 H* D ABG pO2 89 75 L ABG HCO3 34 H 36 H ABG O2 Saturation 92 84 L ABG Base Excess 3 4 H FiO2 100 100 Sodium Potassium 5.9 H Chloride Carbon Dioxide Anion Gap BUN Creatinine Estim Creat Clear Calc eGFR BUN/Creatinine Ratio Glucose Calculated Osmolality Calcium Corrected Calcium Total Bilirubin AST ALT Alkaline Phosphatase Total Protein Albumin Globulin Albumin/Globulin Ratio Misc Test Result ABG Interpretation ABG results: 05/27/24 05/29/24 05/29/24 23:37 10:44 22:08 ABG pH 7.51 H 7.50 H 7.48 H ABG pCO2 28 L 32 32 ABG pO2 75 L 79 L 145 H D ABG HCO3 23 25 24 ABG O2 Saturation 96 95 98 ABG Base Excess 0 2 1 05/30/24 05/31/24 06/04/24 08:45 04:54 02:10 ABG pH 7.47 H 7.45 7.45 ABG pCO2 35 38 36 ABG pO2 86 D 82 L 139 H ABG HCO3 26 26 25 ABG O2 Saturation 97 96 98 ABG Base Excess 2 2 1 06/04/24 06/05/24 06/05/24 18:16 11:36 12:59 ABG pH 7.44 7.11 L* D 7.20 L ABG pCO2 36 94 H* D 68 H D ABG pO2 80 L D 150 H D 121 H D ABG HCO3 24 30 H 26 ABG O2 Saturation 94 97 97 ABG Base Excess 0 -2 -3 06/05/24 06/06/24 06/06/24 19:25 04:13 15:27 ABG pH 7.22 L 7.27 L 7.30 L ABG pCO2 64 H 57 H 60 H ABG pO2 122 H 153 H D 74 L D ABG HCO3 26 26 29 H ABG O2 Saturation 97 99 H 92 ABG Base Excess -3 -2 2 06/07/24 06/07/24 06/08/24 03:55 09:59 04:20 ABG pH 7.41 D 7.43 7.45 ABG pCO2 56 H 55 H 50 H ABG pO2 293 H D 78 L D 75 L ABG HCO3 36 H 37 H 35 H ABG O2 Saturation 99 H 95 94 ABG Base Excess 10 H 11 H 10 H 06/08/24 06/08/24 11:05 11:50 ABG pH 7.17 L* D 7.10 L* ABG pCO2 95 H* D 115 H* D ABG pO2 89 75 L ABG HCO3 34 H 36 H ABG O2 Saturation 92 84 L ABG Base Excess 3 4 H Assessment & Plan A&P Narrative pneumonia. cocci neg. procal not neg. pjp on bal hiv. infection, new resp failure, hypoxic jo ann, resolved. he has hiv, gf needs to be tested. ok to start rx with whatever the facility has available. (I called and we have raltegravir and truvada but if not liquid, ok to wait as rx for hiv will not affect his outcome.).I will see him on thursday. ok for iv bactrim. it seems the way to go to assure administration of the med. Time Spent With Patient Time: Total time spent is greater than 50% in coordination of care (as documented) at patient's floor/unit and/or counseling patient:
[2024-06-08 13:32] LABS: Allen Test Not Performed; Puncture Site Arterial Line; pH, Arterial 7.15 (7.35-7.45)
[2024-06-08] MEDS: MIDAZOLAM/NS 100 MG IVPB 100 MG/100 ML BAG IV (14:30)
[2024-06-08 16:58] LABS: Potassium 6.9 mMol/L (3.4-5.1)
[2024-06-08 17:08] LABS: Base Excess -9 (-3-3); HCO3 19 mEq/L (20-26); Inspired Oxygen, FIO2 70 %; O2 Saturation 93 % (91-98); PCO2 50 mmHg (32.0-48.0); PO2 82 mmHg (83-108)
[2024-06-08 17:20] LABS: Allen Test Not Performed; Puncture Site Arterial Line
[2024-06-08 17:22] LABS: pH, Arterial 7.18 (7.35-7.45)
[2024-06-08 18:00] LABS: Creatine Kinase 206 U/L (34-171)
--- NOTE | 2024-06-08 19:46 | PC.NURSE ---
late entry RR called on 06/05 Dr. Walsh and Residents in room to assess patient. patient needing ICU level of care. Doctors asked patient who his medical decision maker will be. He told us his sister. His sister said both his mom and her, but the patient said no just his sister can make decisions for him.
[2024-06-08 19:49] LABS: Hemoglobinopathy Hematocrit 36.6 % (38.5-50.0); Hemoglobinopathy Hemoglobin 10.9 g/dL (13.2-17.1); Hemoglobinopathy Hemoglobin A2 2.7 % (2.0-3.2); Hemoglobinopathy MCH 22.1 pg (27.0-33.0); Hemoglobinopathy MCV 74.1 fL (80.0-100.0); Hemoglobinopathy Red Blood Cnt 4.94 Million/uL (4.20-5.80)
[2024-06-08] MEDS: SMX IV (20:31)
[2024-06-08] MEDS: TMP IV (20:31)
[2024-06-08] MEDS: DEXTROSE 5% IV (20:31)
[2024-06-08] MEDS: WATER IV (20:31)
[2024-06-08] MEDS: HEPARIN SOD INJ 1000 UNIT/ML VIAL 10 ML 2200 UNIT INDWELLCAT (22:01)
[2024-06-09] VITALS (48 sets, daily range): BP systolic 93–285; BP diastolic 45–99; PULSE 58–115; RESP 27–39; TEMP 36.6–38.6; O2SAT 92–100; BMI 26.0
[2024-06-09 01:06] LABS: Alanine Aminotransferase 555 U/L (10-49); Albumin, Serum 3.2 gm/dL (3.5-5.0); Alkaline Phosphatase 115 U/L (46-116); Anion Gap -1 (7-16); Aspartate Amino Transferase 182 U/L (0-34); BUN/Creatinine Ratio 20 Ratio (12-20); Bilirubin,Total 0.4 mg/dL (0.3-1.2); Blood Urea Nitrogen 18 mg/dL (9-23); Calcium 7.9 mg/dL (8.3-10.6); Calcium (Corrected) 8.5 mg/dL (8.5-10.1); Chloride 101 mMol/L (98-107); Creatinine (Component) 0.9 mg/dL (0.6-1.3); Estimated Creatinine Clearance 100.4 mL/min (>60); Globulin 3.2 gm/dL (2.3-3.5); Glucose 132 mg/dL (74-106); Osmolality,Calculated 274 (275-295); Sodium 135 mMol/L (136-145); Total Protein 6.4 gm/dL (5.7-8.2); eGFR > 60 See Note
[2024-06-09 01:08] LABS: Potassium 6.1 mMol/L (3.4-5.1)
[2024-06-09] MEDS: INSULIN HUM REGULAR 1 UNIT/0.01 ML (PER UNIT) 10 UNIT IV ×2 (01:21→05:12)
[2024-06-09] MEDS: DEXTROSE 50%-WATER INJ 50 ML SYRINGE IV ×2 (01:22→05:12)
[2024-06-09] MEDS: CALCIUM GLUCONATE 10% INJ 1 GM/10 ML VIAL IV ×2 (01:24→05:11)
[2024-06-09 01:43] LABS: Base Excess 7 (-3-3); HCO3 37 mEq/L (20-26); Inspired Oxygen, FIO2 70 %; O2 Saturation 97 % (91-98); PCO2 91 mmHg (32.0-48.0); PO2 105 mmHg (83-108); pH, Arterial 7.22 (7.35-7.45)
[2024-06-09 01:47] LABS: Allen Test Not Performed; Puncture Site Arterial Line
--- NOTE | 2024-06-09 01:58 | PC.RT ---
DR Mckenzie AWARE OF ABG FROM 0133. WANTS TO REPEAT ABG AT 0300. THEN AM ABG AT 0500. NO CHANGES MADE TO VENT SETTINGS.
[2024-06-09] MEDS: DEXMEDETOMIDINE 400 MCG IVPB 400 MCG/100 ML BAG 18.8 MCG IV (02:51)
[2024-06-09 03:22] LABS: Base Excess 9 (-3-3); HCO3 38 mEq/L (20-26); Inspired Oxygen, FIO2 70 %; O2 Saturation 95 % (91-98); PCO2 82 mmHg (32.0-48.0); PO2 86 mmHg (83-108); pH, Arterial 7.27 (7.35-7.45)
[2024-06-09 03:23] LABS: Puncture Site Arterial Line
[2024-06-09 03:52] LABS: Basophils % (Auto) 0 % (0-2.5); Eosinophils % (Auto) 0 % (0-10); Hemoglobin 9.5 g/dL (13.5-16.0); Immature Granulocytes % (Auto) 2 % (0-0); Immature Granulocytes Auto 0.15 Thou/mm3 (0.00-0.00); Lymphocytes # (Auto) 0.3 Thou/mm3 (1.0-4.8); Lymphocytes % (Auto) 3 % (10-50); Mean Corpuscular HGB Conc 29.7 g/dl (31.0-37.0); Mean Corpuscular Hemoglobin 22.7 pg (25.0-35.0); Mean Corpuscular Volume 77 fL (80-100); Monocytes # (Auto) 0.1 Thou/mm3 (0.0-0.8); Monocytes % (Auto) 1 % (0-12); Neutrophils # (Auto) 8.9 Thou/mm3 (1.8-7.7); Neutrophils % (Auto) 94 % (37-80); Nucleated Red Blood Cell % 0 /100 WBC (0); Platelet Count 406 Thou/mm3 (140-440); RDW Standard Deviation 55.1 fL (35.1-43.9); Red Blood Count 4.18 Miln/mm3 (4.50-5.90); White Blood Count 9.5 Thou/mm3 (3.8-10.6)
[2024-06-09 04:48] LABS: Alanine Aminotransferase 511 U/L (10-49); Albumin, Serum 3.1 gm/dL (3.5-5.0); Alkaline Phosphatase 116 U/L (46-116); Anion Gap -2 (7-16); Aspartate Amino Transferase 153 U/L (0-34); BUN/Creatinine Ratio 23 Ratio (12-20); Bilirubin,Total 0.4 mg/dL (0.3-1.2); Blood Urea Nitrogen 18 mg/dL (9-23); Calcium 8.1 mg/dL (8.3-10.6); Calcium (Corrected) 8.8 mg/dL (8.5-10.1); Carbon Dioxide 36.6 mMol/L (20.0-31.0); Chloride 100 mMol/L (98-107); Creatinine (Component) 0.8 mg/dL (0.6-1.3); Globulin 3.2 gm/dL (2.3-3.5); Glucose 99 mg/dL (74-106); Osmolality,Calculated 272 (275-295); Sodium 135 mMol/L (136-145); Total Protein 6.3 gm/dL (5.7-8.2); eGFR > 60 See Note
[2024-06-09 04:50] LABS: Potassium 6.2 mMol/L (3.4-5.1)
--- NOTE | 2024-06-09 05:00 | XR_ITS ---
Examination: AP chest single view Technique one AP portable semiupright chest single view Exam date and time: June 09, 2024 1155 hours Comparison June 08, 2024 INDICATIONS: Severe pneumonia or RDS hypoxic respiratory failure postintubation FINDINGS: Severe bilateral lung opacity again noted Endotracheal tube tip 7.4 cm above sunil Right internal jugular temporary dialysis catheter tip SVC Orogastric tube in the stomach, the tip below the level film IMPRESSION: No significant change in severe pneumonia/ARDS pattern
[2024-06-09] MEDS: Sodium Bicarb Inj 8.4% SYR 50 ML SYRINGE IV (05:12)
[2024-06-09 05:16] LABS: Base Excess 10 (-3-3); HCO3 38 mEq/L (20-26); Inspired Oxygen, FIO2 70 %; O2 Saturation 97 % (91-98); PCO2 75 mmHg (32.0-48.0); PO2 97 mmHg (83-108); pH, Arterial 7.31 (7.35-7.45)
[2024-06-09 05:20] LABS: Puncture Site Arterial Line
--- NOTE | 2024-06-09 06:17 | PC.RT ---
UPON RT AND NURSING AT BEDSIDE TO MOVE HEAD AND ET TUBE Q4 PT'S HR DROPPED TO 32. THE DESICION WAS MADE TO WAITING FOR DIAGNOSTIC TECHNICIAN TO BE PRESENT BEFORE ADJUSTING
[2024-06-09] MEDS: fentaNYL 2,500 MCG/250 ML BAG 2,500 MCG/250 ML BAG 25 MCG IV (06:38)
[2024-06-09 06:42] LABS: Hemoglobinopathy Hemoglobin A 97.3 %; Hemoglobinopathy RDW 18.5 % (11.0-15.0)
[2024-06-09] MEDS: DEXMEDETOMIDINE 400 MCG IVPB 400 MCG/100 ML BAG 26.32 MCG IV (07:32)
[2024-06-09] MEDS: CISATRACURIUM INJ 200 MG in SODIUM CHLORIDE 0.9% 500 ML 500 ML 39.909 MG IV ×2 (07:32→22:37)
[2024-06-09] MEDS: SOD POLYSTYRENE SULFON SUSP 15 GM/60 ML BTL PO (08:06)
[2024-06-09] MEDS: FLUCONAZOLE/NS 400 MG IVPB 400 MG/200 ML BAG 100 MG IV (08:06)
[2024-06-09] MEDS: PANTOPRAZOLE INJ 40 MG VIAL IVP (08:06)
[2024-06-09] MEDS: [UNRECOGNIZED DRUG - REMARK] 400 MG NG ×2 (08:19→21:18)
[2024-06-09] MEDS: EMTRICITABINE 200 MG/TENOFOVIR 300 MG TAB (NON-FORM) 1 TAB PO (08:19)
[2024-06-09 08:27] LABS: Potassium 6.1 mMol/L (3.4-5.1)
[2024-06-09] MEDS: DEXTROSE 5% IV (08:59)
[2024-06-09] MEDS: SMX IV (08:59)
[2024-06-09] MEDS: WATER IV (08:59)
[2024-06-09] MEDS: TMP IV (08:59)
[2024-06-09] MEDS: Norepinephrine/D5W 8mg/250ml 8 MG/250 ML BAG 7.05 MG IV (09:41)
[2024-06-09] MEDS: MIDAZOLAM/NS 100 MG IVPB 100 MG/100 ML BAG 6 MG IV (10:10)
--- NOTE | 2024-06-09 10:15 | ESPR_ITS ---
<Statement entered by Jennifer Velasco MD - 06/12/24 06:58> Patient was seen and examined by me personally. I have directly supervised and reviewed the above documentation by the team resident and agree with its findings with any exceptions or additional findings as below. Plan of care was discussed with the attending, Dr. Anderson. Jennifer Velasco, PGY-2 Documentation for date of: 06/09/24 Subjective Subjective Interval history: Mr. Owen is a 39-year-old male with no known previous past medical history who presented to [facility] on 05/27/2024 with a chief complaint of shortness of breath and cough. Patient had exhibited symptoms of chills, body aches, generalized weakness, fever, and night sweats progressively worsening over the prior weeks. He was admitted and initiated on empiric treatment for community-acquired pneumonia and cocci pneumonia, although cocci IgM returned negative twice this admission. Over the course of his hospitalization patient's oxygen requirements continued to worsen as he became more hypoxic worse with activity and movement. He had intermittent fevers and sinus tachycardia. All of the patient's culture testing has been negative thus far, including blood, urine, sputum, and MRSA screening. HIV test returned equivocal, possible positive and was sent out for confirmatory testing. Primary team had elibside consulted Dr. Anderson, Interior Design Instructor for recommendations. There is a suspicion for pneumocystis pneumonia given the preliminary result therefore the patient was started on TMP-SMX. Beta-(1,3)-D-glucan testing was also positive (>500). 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 He did endorse a history of incarceration in 2006. TB quantiferon was indeterminate on 05/31. He denies any recent travel, sick contacts, or contact with anyone that may have had recent international travel. Patient last was in ICU 05/30/2024-05/31/2024 for increased work of breathing on HiFlow and fever, was started on steroids and monitored closely but no intubation at that time. He was downgraded to floors after decrease in FiO2 needs and improvement in respiratory status. 06/05/2024 rapid response was called around 10:15 am for patient desaturation to 70s while on HiFlow 30L at 100% FiO2, which occurred at least twice this morning while patient was moving. Patient this morning was reporting increased work of breathing and dyspnea upon any movement sitting up or out of the bed to urinate. Patient also had rapid response for similar episodes last night. When examined he appeared laying flat in the bed with nonlabored breathing, however is diaphoretic and repeatedly complaining of dyspnea. Decision was made to upgrade patient to ICU again for intubation due to impending respiratory failure and bronchoscopy for further diagnotic data. 06/06/2024: Patient was seen and examined by the bedside. Yesterday patient was intubated, was started on sedation and paralytics. Today, his oxygen requirements decreased to FiO2 40%, cistracurium was discontinued. Propofol and heparin were discontinued due to concern for WILL. Patient continues to have urine output >100 ml/hr. Patossium level in the AM was >7, patient received insulin 10Ux2, kayexalate, calcium gluconate, repeat K is pending. Will continue with current antibiotic regimen and steroids. BAL cultures and fungal cultures results are pending. Contacte lab for possibility of silver stain of BAL samples. Confirmatory HIV test is pending. We spoke to the decision maker Francesca Owen regarding the transfer. At this time patient condition does not require a transfer and patient is under adequate care at [facility]. The process of transfer was explained to the Francesca and she does not requesting transfer at the moment. Patient's condition and plan of treatment were explained to her, all questions were answered. Later in the day, patient's potassium levels continues to be increased. He received insulin, kayexalate, albuterol again. Dr. Song was consulted, pending recommendations. Francesca Owen was contacted, she was given update on his condition and she was made aware that in case his potassium continues to be elevated, it would require emergent hemodialysis. Consent for temporary dialysis catheter placement was obtained. Procedure was explained to the desicion maker. His mother was also at the bedside, she was also given updates on the patient's condition using language interpreter service. All question were answered. 06/07/2024: Patient was seen and examined by the bedside. No acute overnight events. Yesterday patient was emergently hemodialyzed, today potassium levels are normal. Patient continues to be on fentanyl, Precedex, Ativan. He is opening his eyes to the touch, his name, tries to sit up. Called the lab, waiting for callback regarding the HIV PCR status that was done on 05/27/24. Still pending silver stain of BAL fluid. Will repeat ABGs today as the morning were drawn when the patient was on 100% FiO2. Will also repeat CT chest with contrast. Will also explore the idea of different causes of the lung injury. His sister reports that he has been smoking a pack a day since being a teenager and also smokes marijuana and wax pens. She is not exactly sure how often did he smoked marijuana pen. She brought a bag from his home that contained syringe in packaging, bottles with testosteron and trenbolone markings, marijuana smoking pen and artificial urine. Cytology and silver stain of BAL from the right lung revealed organisms consistent with Pneumocystis jiroveci and as well as other fungus, possibly Kassandra. Discussed with patient's sister results and explained that one of the possible reasons for decreased immunity causing Pneumocystis pneumonia. Also gave update on the patient's condition to the mother using language interpreter service. HIV PCR is still pending, called lab for update, still waiting. Sent repeat HIV tests again today 06/07/24. Patient continues to receive bactrim, fluconazole and zosyn. 06/08/2024: Patient was seen and examined by the bedside. No acute overnight events. In the morning patient started to get agitated, his saturation decreased to <80%, during suctioning bloody fluid started to come out. He received Ativan, Seroquel and was started on cisatracurium. Repeat suctioning and flushing of the tube were done until the fluid came out clear. Repeat chest x- ray showed bilateral pneumonia, ET tube 4.8 cm above the sunil. FiO2 was changed to 100%, respiratory rate to 32, tidal volume to 375, PEEP to 11. HIV PCR: showed 5,660,000 copies. Due to patient continuing having SaO2 in the low 90s, patient was put in prone position, SaO2 went up to 95%. Patient's decision maker, Francesca, was informed of his condition and was given update. 06/09/2024: Patient was seen and examined by the bedside. No acute overnight events. Patient had an emergent dialysis session due to hyperkalemia, in the AM potassium was still elevated at 6.1, he had dialysis session again, additionally kayexalate was discontinued, valtassa was started. Overnight patient had a brief episode of bradycardia when moving his head. He was unproned today, continues to be paralyzed. Precedex was discontinued, patient continues to be on fentanyl and midazolam for sedation. Methylprednisolone dose was decreased to 40 mg qday. Continues fluconazole and bactrim. Micafungin was added. During the day he had epsiodes of elevated BP in the 180s that resolved after the midazolam IV. Due to suspition for fentanyl tachyphylaxis, fentanyl was switched to the morphine drip. Also he spiked a fever, the last day of Zosyn was 06/08/24. Blood cultures were drawn and he was started on zosyn and vancomycin. Exam Vital Signs Temp Pulse Resp BP Pulse Ox O2 Del Method O2 Flow Rate 98.0 F 73 35 H 144/64 H 100 Mechanical Ventilation 40 06/09/24 09:00 06/09/24 10:00 06/09/24 08:48 06/09/24 10:00 06/09/24 09:00 06/09/24 09:00 06/09/24 08:48 FiO2 85 06/09/24 09:00 Narrative Exam Gen: Well-developed and well-nourished. Sedated. HEENT: NCAT, PERRLA, EOMI, MMM, anicteric conjunctivae. CVS: normal S1 and S2. RRR. No M/R/G. Resp: Coarse breathing bilaterally. Abd: soft, non-tender, non-distended. BS+ in all 4 quadrants. MSK: Good ROM in BUE & BLE. No edema or rash. Multiple tattoos present. Neuro: No gross focal neurological finding. Psych: Impossible to assess. Objective Labs 06/18/24 05:40 06/18/24 05:40 Labs: Laboratory Results - last 24 hr 06/02/24 06/05/24 06/08/24 05:12 10:53 11:05 WBC RBC Hgb Hct MCV MCH MCHC RDW Std Deviation Plt Count Neut % (Auto) Lymph % (Auto) [place] % (Auto) Eos % (Auto) Baso % (Auto) Neut # (Auto) Lymph # (Auto) [place] # (Auto) Eos # (Auto) Baso # (Auto) Immature Gran # (Auto) Absolute Nucleated RBC Immature Gran % Nucleated RBC % Hemoglobin A 97.3 Hemoglobin A2 2.7 Hemoglobin C TNP Hemoglobin E TNP Hemoglobin F () 0.0 Hemoglobin S TNP Abnormal Hemoglobin TNP Abnormal Hemoglobin 2 TNP Hemoglobinopathy Red Blood Count 4.94 Hemoglobinopathy Hct 36.6 L Hemoglobinopathy Hgb 10.9 L Hemoglobinopathy MCV 74.1 L Hemoglobinopathy MCH 22.1 L Hemoglobinopathy RDW 18.5 H Hemoglobinopathy Interp SEE NOTE Puncture Site Arterial Line ABG pH 7.17 L* D ABG pCO2 95 H* D ABG pO2 89 ABG HCO3 34 H ABG O2 Saturation 92 ABG Base Excess 3 FiO2 100 Sodium Potassium Chloride Carbon Dioxide Anion Gap BUN Creatinine Estim Creat Clear Calc eGFR BUN/Creatinine Ratio Glucose Calculated Osmolality Calcium Corrected Calcium Total Bilirubin AST ALT Alkaline Phosphatase Total Creatine Kinase Total Protein Albumin Globulin Albumin/Globulin Ratio Mycobacterial Culture See Mar06/08/24 06/08/24 06/08/24 11:50 12:28 13:18 WBC RBC Hgb Hct MCV MCH MCHC RDW Std Deviation Plt Count Neut % (Auto) Lymph % (Auto) [place] % (Auto) Eos % (Auto) Baso % (Auto) Neut # (Auto) Lymph # (Auto) [place] # (Auto) Eos # (Auto) Baso # (Auto) Immature Gran # (Auto) Absolute Nucleated RBC Immature Gran % Nucleated RBC % Hemoglobin A Hemoglobin A2 Hemoglobin C Hemoglobin E Hemoglobin F () Hemoglobin S Abnormal Hemoglobin Abnormal Hemoglobin 2 Hemoglobinopathy Red Blood Count Hemoglobinopathy Hct Hemoglobinopathy Hgb Hemoglobinopathy MCV Hemoglobinopathy MCH Hemoglobinopathy RDW Hemoglobinopathy Interp Puncture Site Right Radial Arterial Line ABG pH 7.10 L* 7.15 L* ABG pCO2 115 H* D 88 H* D ABG pO2 75 L 72 L ABG HCO3 36 H 31 H ABG O2 Saturation 84 L 85 L ABG Base Excess 4 H 0 FiO2 100 80 Sodium Potassium 5.9 H Chloride Carbon Dioxide Anion Gap BUN Creatinine Estim Creat Clear Calc eGFR BUN/Creatinine Ratio Glucose Calculated Osmolality Calcium Corrected Calcium Total Bilirubin AST ALT Alkaline Phosphatase Total Creatine Kinase Total Protein Albumin Globulin Albumin/Globulin Ratio Mycobacterial Culture 06/08/24 06/08/24 06/08/24 16:40 17:02 19:40 WBC RBC Hgb Hct MCV MCH MCHC RDW Std Deviation Plt Count Neut % (Auto) Lymph % (Auto) [place] % (Auto) Eos % (Auto) Baso % (Auto) Neut # (Auto) Lymph # (Auto) [place] # (Auto) Eos # (Auto) Baso # (Auto) Immature Gran # (Auto) Absolute Nucleated RBC Immature Gran % Nucleated RBC % Hemoglobin A Hemoglobin A2 Hemoglobin C Hemoglobin E Hemoglobin F () Hemoglobin S Abnormal Hemoglobin Abnormal Hemoglobin 2 Hemoglobinopathy Red Blood Count Hemoglobinopathy Hct Hemoglobinopathy Hgb Hemoglobinopathy MCV Hemoglobinopathy MCH Hemoglobinopathy RDW Hemoglobinopathy Interp Puncture Site Arterial Line ABG pH 7.18 L* ABG pCO2 50 H D ABG pO2 82 L ABG HCO3 19 L ABG O2 Saturation 93 ABG Base Excess -9 L FiO2 70 Sodium Potassium 6.9 H* D 6.0 H D Chloride Carbon Dioxide Anion Gap BUN Creatinine Estim Creat Clear Calc eGFR BUN/Creatinine Ratio Glucose Calculated Osmolality Calcium Corrected Calcium Total Bilirubin AST ALT Alkaline Phosphatase Total Creatine Kinase 206 H D Total Protein Albumin Globulin Albumin/Globulin Ratio Mycobacterial Culture 06/09/24 06/09/24 06/09/24 00:07 01:33 03:15 WBC RBC Hgb Hct MCV MCH MCHC RDW Std Deviation Plt Count Neut % (Auto) Lymph % (Auto) [place] % (Auto) Eos % (Auto) Baso % (Auto) Neut # (Auto) Lymph # (Auto) [place] # (Auto) Eos # (Auto) Baso # (Auto) Immature Gran # (Auto) Absolute Nucleated RBC Immature Gran % Nucleated RBC % Hemoglobin A Hemoglobin A2 Hemoglobin C Hemoglobin E Hemoglobin F () Hemoglobin S Abnormal Hemoglobin Abnormal Hemoglobin 2 Hemoglobinopathy Red Blood Count Hemoglobinopathy Hct Hemoglobinopathy Hgb Hemoglobinopathy MCV Hemoglobinopathy MCH Hemoglobinopathy RDW Hemoglobinopathy Interp Puncture Site Arterial Line Arterial Line ABG pH 7.22 L 7.27 L ABG pCO2 91 H* D 82 H* ABG pO2 105 D 86 ABG HCO3 37 H 38 H ABG O2 Saturation 97 95 ABG Base Excess 7 H 9 H FiO2 70 70 Sodium 135 L Potassium 6.1 H* Chloride 101 Carbon Dioxide 35.0 H Anion Gap -1 L BUN 18 Creatinine 0.9 Estim Creat Clear Calc 100.4 eGFR > 60 BUN/Creatinine Ratio 20 Glucose 132 H Calculated Osmolality 274 L Calcium 7.9 L Corrected Calcium 8.5 Total Bilirubin 0.4 AST 182 H ALT 555 H* Alkaline Phosphatase 115 Total Creatine Kinase Total Protein 6.4 Albumin 3.2 L Globulin 3.2 Albumin/Globulin Ratio 1.0 L Mycobacterial Culture 06/09/24 06/09/24 06/09/24 03:40 05:08 08:02 WBC 9.5 RBC 4.18 L Hgb 9.5 L Hct 32.0 L MCV 77 L MCH 22.7 L MCHC 29.7 L RDW Std Deviation 55.1 H Plt Count 406 D Neut % (Auto) 94 H Lymph % (Auto) 3 L [place] % (Auto) 1 Eos % (Auto) 0 Baso % (Auto) 0 Neut # (Auto) 8.9 H Lymph # (Auto) 0.3 L [place] # (Auto) 0.1 Eos # (Auto) 0.0 Baso # (Auto) 0.0 Immature Gran # (Auto) 0.15 H Absolute Nucleated RBC 0.00 Immature Gran % 2 H Nucleated RBC % 0 Hemoglobin A Hemoglobin A2 Hemoglobin C Hemoglobin E Hemoglobin F () Hemoglobin S Abnormal Hemoglobin Abnormal Hemoglobin 2 Hemoglobinopathy Red Blood Count Hemoglobinopathy Hct Hemoglobinopathy Hgb Hemoglobinopathy MCV Hemoglobinopathy MCH Hemoglobinopathy RDW Hemoglobinopathy Interp Puncture Site Arterial Line ABG pH 7.31 L ABG pCO2 75 H* ABG pO2 97 ABG HCO3 38 H ABG O2 Saturation 97 ABG Base Excess 10 H FiO2 70 Sodium 135 L Potassium 6.2 H* 6.1 H* Chloride 100 Carbon Dioxide 36.6 H Anion Gap -2 L BUN 18 Creatinine 0.8 Estim Creat Clear Calc 113.0 eGFR > 60 BUN/Creatinine Ratio 23 H Glucose 99 Calculated Osmolality 272 L Calcium 8.1 L Corrected Calcium 8.8 Total Bilirubin 0.4 AST 153 H ALT 511 H* Alkaline Phosphatase 116 Total Creatine Kinase Total Protein 6.3 Albumin 3.1 L Globulin 3.2 Albumin/Globulin Ratio 1.0 L Mycobacterial Culture ABG Interpretation ABG results: 05/27/24 05/29/24 05/29/24 23:37 10:44 22:08 ABG pH 7.51 H 7.50 H 7.48 H ABG pCO2 28 L 32 32 ABG pO2 75 L 79 L 145 H D ABG HCO3 23 25 24 ABG O2 Saturation 96 95 98 ABG Base Excess 0 2 1 05/30/24 05/31/24 06/04/24 08:45 04:54 02:10 ABG pH 7.47 H 7.45 7.45 ABG pCO2 35 38 36 ABG pO2 86 D 82 L 139 H ABG HCO3 26 26 25 ABG O2 Saturation 97 96 98 ABG Base Excess 2 2 1 06/04/24 06/05/24 06/05/24 18:16 11:36 12:59 ABG pH 7.44 7.11 L* D 7.20 L ABG pCO2 36 94 H* D 68 H D ABG pO2 80 L D 150 H D 121 H D ABG HCO3 24 30 H 26 ABG O2 Saturation 94 97 97 ABG Base Excess 0 -2 -3 06/05/24 06/06/24 06/06/24 19:25 04:13 15:27 ABG pH 7.22 L 7.27 L 7.30 L ABG pCO2 64 H 57 H 60 H ABG pO2 122 H 153 H D 74 L D ABG HCO3 26 26 29 H ABG O2 Saturation 97 99 H 92 ABG Base Excess -3 -2 2 06/07/24 06/07/24 06/08/24 03:55 09:59 04:20 ABG pH 7.41 D 7.43 7.45 ABG pCO2 56 H 55 H 50 H ABG pO2 293 H D 78 L D 75 L ABG HCO3 36 H 37 H 35 H ABG O2 Saturation 99 H 95 94 ABG Base Excess 10 H 11 H 10 H 06/08/24 06/08/24 06/08/24 11:05 11:50 13:18 ABG pH 7.17 L* D 7.10 L* 7.15 L* ABG pCO2 95 H* D 115 H* D 88 H* D ABG pO2 89 75 L 72 L ABG HCO3 34 H 36 H 31 H ABG O2 Saturation 92 84 L 85 L ABG Base Excess 3 4 H 0 06/08/24 06/09/24 06/09/24 17:02 01:33 03:15 ABG pH 7.18 L* 7.22 L 7.27 L ABG pCO2 50 H D 91 H* D 82 H* ABG pO2 82 L 105 D 86 ABG HCO3 19 L 37 H 38 H ABG O2 Saturation 93 97 95 ABG Base Excess -9 L 7 H 9 H 06/09/24 05:08 ABG pH 7.31 L ABG pCO2 75 H* ABG pO2 97 ABG HCO3 38 H ABG O2 Saturation 97 ABG Base Excess 10 H Quality Measures Quality Measures sepsis Current suspected stage: sepsis Possible source: pulmonary, GI tract/intra-abdominal, genitourinary and skin/soft tissue Blood cultures ordered: yes Antibiotic ordered: Yes Assessment & Plan Assessment Current Active Medications: Generic Name Dose Route Start Last Admin Trade Name Freq PRN Reason Stop Dose Admin Acetaminophen 1,000 mg 05/29/24 15:38 05/30/24 17:57 Acetaminophen 500 Mg Tablet PO 06/26/24 12:10 1,000 mg Q6H PRN Administration Pain 1-3 and Fever >101.5 Albuterol/Ipratropium 3 ml 06/05/24 11:40 06/06/24 16:43 Albuterol/Ipratropium (Duoneb) Rt Munira 3 Ml Nebu INH 07/05/24 14:59 3 ml Q4HRRT PRN Administration Wheezing Calcium Carbonate 600 mg 06/06/24 09:00 06/08/24 08:40 Calcium Carbonate 600 Mg Tablet NG 07/06/24 08:59 600 mg QDAY JUAN JOSE Administration Chlorpromazine HCl 25 mg 06/04/24 14:15 06/05/24 05:16 Chlorpromazine 25 Mg Tablet PO 07/04/24 14:14 25 mg TID JUAN JOSE Administration Dextrose 25 ml 06/06/24 08:20 Dextrose 50%-Water Inj 50 Ml Syringe IV 07/06/24 08:19 Q15MIN PRN BG 50-70 responsive npo pt Dextrose 50 ml 06/06/24 08:20 Dextrose 50%-Water Inj 50 Ml Syringe IV 07/06/24 08:19 Q15MIN PRN BG <50 OR BG <70 & pt unresponsive Emtricitabine/Tenofovir 1 tab 06/09/24 09:00 06/09/24 08:19 Emtricitabine 200 Mg/Tenofovir 300 Mg Tab (Non-Form) PO 06/16/24 08:59 1 tab QDAY JUAN JOSE Administration Enoxaparin Sodium 40 mg 06/07/24 09:00 06/08/24 08:40 Enoxaparin Sod Inj 40 Mg/0.4 Ml Syringe SC 06/21/24 08:59 40 mg QDAY JUAN JOSE Administration Glucagon 1 mg 06/06/24 08:20 Glucagon Inj 1 Mg Vial IM Q15MIN PRN BG <70, and no IV access Heparin Sodium (Porcine) 2,200 unit 06/06/24 20:40 06/08/24 22:01 Heparin Sod Inj 1000 Unit/Ml Vial 10 Ml INDWELLCAT 06/12/24 20:39 2,200 unit X1 PRN Administration DIALYSIS Fentanyl Citrate 2,500 mcg in 250 mls @ 2.5 mls/hr 06/05/24 10:38 06/09/24 09:00 Sublimaze Inj 2,500 Mcg/250 Ml Bag IV 06/10/24 10:37 300 mcg/hr .Q24H PRN 30 mls/hr PER PROTOCOL Titration Protocol 25 MCG/HR Cisatracurium Besylate 200 mg/ 520 mls @ 13.303 mls/hr 06/05/24 12:05 06/09/24 09:00 Sodium Chloride IV 07/05/24 12:04 3 mcg/kg/min .Q24H PRN 39.909 mls/hr Per Protocol Titration Protocol 1 MCG/KG/MIN Midazolam HCl 100 mg in 100 mls @ 1 mls/hr 06/05/24 12:15 06/09/24 10:10 Versed Pf Inj In Ns Premix IV 06/10/24 12:14 6 mg/hr .Q24H PRN 6 mls/hr PER PROTOCOL Administration Protocol 1 MG/HR Norepinephrine/Dextrose 8 mg in 250 mls @ 7.05 mls/hr 06/06/24 04:07 06/09/24 09:53 Levophed In D5w 8mg/250ml IV 07/06/24 04:06 0.05 mcg/kg/min .Q24H PRN 7.05 mls/hr PER PROTOCOL Titration Protocol 0.05 MCG/KG/MIN Fluconazole 400 mg in 200 mls @ 100 mls/hr 06/06/24 07:30 06/09/24 08:06 Diflucan/Ns Ivpb IV 06/13/24 07:29 100 mls/hr QDAY JUAN JOSE Administration Trimethoprim/Sulfamethoxazole 525 mls @ 525 mls/hr 06/08/24 21:00 06/09/24 08:59 25 ml/ Dextrose IV 06/22/24 15:59 525 mls/hr TID@0700,1500,2100 JUAN JOSE Administration Micafungin Sodium 100 mg/ 100 mls @ 100 mls/hr 06/09/24 09:00 Sodium Chloride IV 06/24/24 08:59 QDAY JUAN JOSE Methylprednisolone Sodium Succinate 40 mg 06/10/24 09:00 Methylprednisolone Sod Succ 40 Mg Vial IVP 06/17/24 08:59 QDAY JUAN JOSE Non-Formulary Medication 10 g 06/09/24 09:30 Lokelma NG 07/09/24 09:29 QDAY JUAN JOSE Ondansetron HCl 4 mg 05/29/24 21:51 06/04/24 17:44 Ondansetron Inj 2 Mg/Ml Inj 2 Ml IV 06/28/24 21:50 4 mg Q6HR PRN Administration NAUSEA OR VOMITING Protocol Pantoprazole Sodium 40 mg 06/06/24 09:00 06/09/24 08:06 Pantoprazole Inj 40 Mg Vial IVP 07/06/24 08:59 40 mg QDAY JUAN JOSE Administration Promethazine HCl/Dextromethorphan 5 ml 05/28/24 16:56 05/30/24 02:34 Promethazine/Dm Syrup 5 Ml Dose PO 06/27/24 16:55 5 ml Q4HR PRN Administration COUGH Protocol Raltegravir 400 mg 06/09/24 09:00 06/09/24 08:19 Raltegravir 100 Mg Chew (Non-Form) NG 06/16/24 08:59 400 mg BID JUAN JOSE Administration Sennosides 1 tab 05/27/24 12:11 Senna Tablet PO 06/26/24 12:10 QDAY PRN constipation Protocol Plan This is a 39-year-old gentleman with no known previous past medical history who initially presented to [facility] on 05/27/2024 with a chief complaint of shortness of breath and cough, and recent history of chills, body aches, generalized weakness, fever, and night sweats progressively worsening over the prior weeks, subsequently admitted for acute hypoxic respiratory failure secondary to bilateral community-acquired pneumonia. He has had multiple rapid response alerts during the course of hospitalization for increasing oxygen requirements and recurrent fevers. He was monitored in ICU from 05/30-05/31, now currently upgraded to ICU again 06/05 for intubation and bronchoscopy. NEURO Prior to intubation, patient is awake, alert, and oriented x3, following commands, conversational. #No active problem, sedated -Morphine drip, midazolam with a RASS goal of -4 - PRecedex discontinued - Fentanyl was discontinued due to concern for tachyphylaxis -Cisatracurium, train of four goal 2 out 4 twitches. CARDIO #Septic shock, resolved #Sinus tachycardia, resolved Most likely shock is due to sepsis [place] to bilateral pneumonia. Tachycardia most likely secondary to respiratory distress and agitation. BP mostly had been maintaining MAP >65, 06/09/24 in the morning, MAP went down to 59-60, he was started on levophed. -Continuous telemetry -Echo was read 06/06: EF 55-60% - levophed to maintain MAP >65 - repeated blood, urine, sputum cultures PULM #Acute hypoxic respiratory failure Secondary to #Bilateral pneumocystis jirovecii pneumonia Patient presented with dyspnea and cough, requiring 4L NC on first ED evaluation, and history of chills, body aches, generalized weakness, fever, and night sweats progressively worsening over the prior weeks. Over hospitalization patient supplemental O2 requirements increased, requiring HiFlow by the second day. He has been treated empirically for community acquired pneumonia, but continues to have worsening respiratory status. Follow up CXRs continue to show worsening fluffy bilateral extensive infiltrates. Ddx: Infectious pneumonia bacterial vs fungal vs less likely viral, autoimmune causes, drug-induced causes. Negative studies: Cocci IgM and IgG, Hepatitis panel, Syphilis, Legionella, H.flu, N.meningitidis, Strep B, Strep pneumoniae, COVID, RSV, Flu A & B. Indeterminate: TB quantiferon GOLD Positive: Beta-(1,3)-D-Glucan 06/05/2024 Bronchoscopy completed today, which showed normal-appearing mucosa and no mucous plugging, hemorrhage, or friability bilaterally. Sandra stain of BAL showed PJP and other fungi, possibly Kassandra. Kassandra is most likely a contaminant. Fungal cultures are pending. Bronchoalveolar washings culture were negative for growth. Tx: -Continue Bactrim, fluconazole -Restarted Zosyn - Vancomycin -present - Micafungin 06/09/24-present -Fungal culture pending -DuoNebs q4h as needed #ARDS Patient continues to have increased oxygen demands with worsening bilateral infiltrates on CXR. Will maintain ARDS ventilation protocol. Ddx: In setting of worsening pneumonia. In the morning 06/06, vent settings were: VT 410, RR35, FiO2 70 ABG 06/09/24: pH 7.31, pCO2 75, pO2 97. 06/08/24 P:F ratio 89/1=89. Severe ARDS. 06/09/24 P:F ratio 97/19=687. Moderate ARDS. Tx: -Will try to downtitrate FiO2 -Low tidal volume ventilation, will try to keep TV ~380 according to 6 mL/kg predicted body weight -Maintain peak plateau <30 -Permissive hypercapnia -Follow up ABG -Methylprednisolone 40 mg qday GI Prophylaxis: Pantoprazole 40 mg IV qday #Elevated LFTs, improving Likely due to propofol and bactrim. Mildly elevated, liver US 05/30/2024 showed normal gallbladder and hepatomegaly without lesions or evidence of obstructions. Hep panel negative. LFTs downtrended compared to 06/06/24. -Continue monitoring NEPHRO #WILL, improving #Hyperkalemia #Hyperphosphatemia #Hyponatremia, resolved #Non-anion gap respiratory acidosis Ddx: Prerenal WILL due to hypotension vs possible rhabdomyolysis vs drug toxicity (zosyn, vancomycin, bactrim) Unlikely rhabdomyolysis, CK was 511 06/06, did not uptrend. Urine output is >100 ml/hr, urine is yellow and clear. Possible underlying SIADH. Plan: -Monitor CMP, repeat potassium - [place] - in case increasing hyperkalemia patient will need dialysis URO #No active problems -Tijerina placed 06/05/2024 HEME #Microcytic anemia Clinically no evidence of bleeding. Iron panel shows iron 17, TIBC 262, iron saturation 6, unsaturated iron binding 245. Peripheral blood film confirms microcytic hypochromic anemia with target cells. Patient hemoglobins stable, does not require transfusion at the moment, PT, INR, PTT within normal range. Plan: -Monitor H&H. Transfusing for Hgb <7 #Leukocytosis In the setting of likely infection and corticosteroids. Elevated WBC on 06/09/24 Plan: -Treatment of pneumonia as above #Thrombocytosis, resolved Likely reactive. -Continue to monitor ENDO #No active problems ID #Bilateral pneumocystis pneumonia Negative studies: Cocci IgM and IgG, Hepatitis panel, Syphilis, Legionella, H.flu, N.meningitidis, Strep B, Strep pneumoniae, COVID, RSV, Flu A & B. Indeterminate: TB quantiferon GOLD Positive: Beta-(1,3)-D-Glucan Silver stain of BA washings positive for Pneumocystis. HIV PCR positive. Patient completed 5 day course of azithromycin. Plan: -Continue Bactrim, fluconazole -ID following, appreciate reccomendations - Started HAART: truvada and raltegravir 06/09/24-present MSK #No active problems SKIN #No active problems DVT prophylaxis: lovenox GI prophylaxis: Pantoprazole 40 mg IV qday Diet: tube feeds Nepro Tijerina: Present (06/05- ) Lines: Peripheral IV, Right radial arterial line, central line Antibiotics: Bactrim, fluconazole CODE STATUS: FULL CODE Reason for ICU care: Acute hypoxic respiratory failure secondary to bilateral pneumonia/ARDS Plan of care discussed with attending Dr. Anderson, PGY-[address] Velasco and PGY-[address] Santos. Denise Pinzon MD, PGY 1. Attending Provider Attestation/Addendum Patient seen and examined with above resident, Denise Pinzon MD. I agree with the findings, assessment, and plan of care as documented except for any differences below. Patient with newly diagnosed HIV presenting with AIDS, the finding illness is PJP pneumonia. Patient with ARDS secondary to this despite appropriate therapy with Bactrim and steroids while on the mccain. Patient now requiring paralysis and proning. Patient also with significant acute renal dysfunction and hyperkalemia secondary to Bactrim with need for emergent hemodialysis for hyperkalemia which he is now responding to. Urine output slowly improving as well and this may serve as an alternate route to dialysis for removal of potassium close this is both associated with Bactrim use. Patient also being followed by ID with ongoing recommendations appreciated. Fluconazole also being used for alternative fungal etiologies given high Fungitell. Patient with appropriate access and we will remove as able in coming days. Patient on appropriate prophylaxis with Lovenox and Protonix. Patient on lung protective settings with Pplateau less than 30 tidal volume is appropriate for his height patient's family updated on plan of care admitted with concern for potential need for transfer, I reassured them that the patient is receiving all appropriate care for his severity of illness and at this point there is no indication for higher level of care. Total critical care time: I personally spent 35 minutes for review of physiologic parameters, directing plan of care throughout the day, coordination of care with other specialties, and counseling patient's family at bedside. This is exclusive of time spent teaching of staff or performing separate billable procedures.
[2024-06-09] MEDS: MORPHINE SULF LIQD 10 MG/5 ML UDC 80 MG PO (10:44)
[2024-06-09 10:56] LABS: HIV-1/2 Rapid Confirmation See Cmnt-Confrm=Pos
--- NOTE | 2024-06-09 11:07 | PC.NURSE ---
Received SBAR from RN, administered morning meds, pt was repositioned supine. Bed low, locked, in lowest position.
--- NOTE | 2024-06-09 11:24 | XR_ITS ---
Examination: Venous duplex upper extremity sonogram, bilateral. Date and time of exam: June 09, 2024 1326 hours INDICATIONS: Left arm edema and pain this week Technique: Multiple sonographic images of the deep venous system have been obtained. B-mode/2-D grayscale imaging of vascular structures and Doppler spectral analysis (waveforms) and color performed Both arms are examined. Findings: Positive for thrombus in the superficial cephalic vein The deep venous system right and left arms are unremarkable for thrombus IMPRESSION: Negative for acute thrombus in the deep venous systems right and left upper extremities
[2024-06-09] MEDS: HEPARIN SOD INJ 1000 UNIT/ML VIAL 10 ML 2200 UNIT INDWELLCAT (11:51)
--- NOTE | 2024-06-09 12:18 | PC.NURSE ---
Dialysis completed for 3 hrs. Able to removed 2500 ml of fluid net. VS stable. Report given to Maty JOLLY
[2024-06-09] MEDS: MICAFUNGIN SODIUM INJ 100 MG in SODIUM CHLORIDE 0.9% 100 ML IV (12:23)
[2024-06-09] MEDS: PATIROMER CALCIUM 8.4 GM PACKET (NON-FORM) NG (12:27)
[2024-06-09] MEDS: TRIMETHOPRIM 160 MG/SULFA 800 MG SUSP 20 ML UDC 40 ML PO ×3 (12:27→20:33)
[2024-06-09 12:36] LABS: Potassium 3.8 mMol/L (3.4-5.1)
--- NOTE | 2024-06-09 12:52 | PD.NEPHCONS ---
History of Present Illness Data of Consult Requesting Physician: Yann Chiu DO Primary Care Provider: Physician No Primary/Family Consult Narrative History of present illness: 39-year-old male with no known previous past medical history who presented to [facility] on 05/27/[facility]24 with a chief complaint of shortness of breath and cough. Patient had exhibited symptoms of chills, body aches, generalized weakness, fever, and night sweats progressively worsening over the prior weeks. He was admitted and initiated on empiric treatment for community-acquired pneumonia and cocci pneumonia, although cocci IgM returned negative twice this admission. Over the course of his hospitalization patient's oxygen requirements continued to worsen as he became more hypoxic worse with activity and movement. Pt is admitted to ICU with repiratory failure. Nephrology consulted for dialysis for recurrent hyperkalemia. cc:: cc: Yann Chiu DO Review of Systems Review of Systems ROS Unobtainable: unobtainable due to medical condition and due to endotracheal tube Meds Home Medications and Allergies Home Medications ?Medication ?Instructions ?Recorded ?Confirmed ?Type No Known Home Medications 05/29/24 05/29/24 History Allergies Allergy/AdvReac Type Severity Reaction Status Date / Time No Known Allergies Allergy Verified 05/27/24 07:57 Exam Vital Signs Temp Pulse Resp BP Pulse Ox O2 Del Method O2 Flow Rate 98.0 F 79 35 H 175/90 H 96 Mechanical Ventilation 40 06/09/24 12:16 06/09/24 12:16 06/09/24 12:16 06/09/24 12:16 06/09/24 12:16 06/09/24 09:00 06/09/24 12:16 FiO2 50 06/09/24 12:16 Narrative Exam Pt is intubated and sedated Heart s1, s2 chest emeli crackles ext plus 1 edema Results Labs 06/10/24 05:49 06/09/24 15:09 Labs: Short CBC 06/09/24 Range/Units 03:40 WBC 9.5 (3.8-10.6) Thou/mm3 Hgb 9.5 L (13.5-16.0) g/dL Hct 32.0 L (41.0-53.0) % Plt Count 406 D (140-440) Thou/mm3 BMP 06/08/24 06/08/2424 16:40 19:40 00:07 Sodium 135 L Potassium 6.9 H* D 6.0 H D 6.1 H* Chloride 101 Carbon Dioxide 35.0 H BUN 18 Creatinine 0.9 Glucose 132 H Calcium 7.9 L 06/09/24 06/09/24 06/09/24 03:40 08:02 11:50 Sodium 135 L Potassium 6.2 H* 6.1 H* 3.8 D Chloride 100 Carbon Dioxide 36.6 H BUN 18 Creatinine 0.8 Glucose 99 Calcium 8.1 L Cardiac Enzymes 06/08/24 Range/Units 16:40 Total Creatine Kinase 206 H D (34-171) U/L Liver Function 06/09/24 06/09/24 Range/Units 00:07 03:40 Total Bilirubin 0.4 0.4 (0.3-1.2) mg/dL AST 182 H 153 H (0-34) U/L ALT 555 H* 511 H* (10-49) U/L Alkaline Phosphatase 115 116 (46-116) U/L Albumin 3.2 L 3.1 L (3.5-5.0) gm/dL ABG Interpretation ABG results: 05/27/24 05/29/24 05/29/24 23:37 10:44 22:08 ABG pH 7.51 H 7.50 H 7.48 H ABG pCO2 28 L 32 32 ABG pO2 75 L 79 L 145 H D ABG HCO3 23 25 24 ABG O2 Saturation 96 95 98 ABG Base Excess 0 2 1 05/30/24 05/31/24 06/04/24 08:45 04:54 02:10 ABG pH 7.47 H 7.45 7.45 ABG pCO2 35 38 36 ABG pO2 86 D 82 L 139 H ABG HCO3 26 26 25 ABG O2 Saturation 97 96 98 ABG Base Excess 2 2 1 06/04/24 06/05/24 06/05/24 18:16 11:36 12:59 ABG pH 7.44 7.11 L* D 7.20 L ABG pCO2 36 94 H* D 68 H D ABG pO2 80 L D 150 H D 121 H D ABG HCO3 24 30 H 26 ABG O2 Saturation 94 97 97 ABG Base Excess 0 -2 -3 06/05/24 06/06/24 06/06/24 19:25 04:13 15:27 ABG pH 7.22 L 7.27 L 7.30 L ABG pCO2 64 H 57 H 60 H ABG pO2 122 H 153 H D 74 L D ABG HCO3 26 26 29 H ABG O2 Saturation 97 99 H 92 ABG Base Excess -3 -2 2 06/07/24 06/07/24 06/08/24 03:55 09:59 04:20 ABG pH 7.41 D 7.43 7.45 ABG pCO2 56 H 55 H 50 H ABG pO2 293 H D 78 L D 75 L ABG HCO3 36 H 37 H 35 H ABG O2 Saturation 99 H 95 94 ABG Base Excess 10 H 11 H 10 H 06/08/24 06/08/24 06/08/24 11:05 11:50 13:18 ABG pH 7.17 L* D 7.10 L* 7.15 L* ABG pCO2 95 H* D 115 H* D 88 H* D ABG pO2 89 75 L 72 L ABG HCO3 34 H 36 H 31 H ABG O2 Saturation 92 84 L 85 L ABG Base Excess 3 4 H 0 06/08/24 06/09/24 06/09/24 17:02 01:33 03:15 ABG pH 7.18 L* 7.22 L 7.27 L ABG pCO2 50 H D 91 H* D 82 H* ABG pO2 82 L 105 D 86 ABG HCO3 19 L 37 H 38 H ABG O2 Saturation 93 97 95 ABG Base Excess -9 L 7 H 9 H 06/09/24 05:08 ABG pH 7.31 L ABG pCO2 75 H* ABG pO2 97 ABG HCO3 38 H ABG O2 Saturation 97 ABG Base Excess 10 H Assessment & Plan Assessment and plan (1) Acute hyperkalemia: Status: Acute Assessment and plan: Pt needing dialysis pt got dialysis again today low K feeding - Nepro if can be changed antibiotics (bactrim has side effect of hyperkalemia) Procedures Arterial Line Size (Gauge): 20
[2024-06-09] MEDS: MIDAZOLAM INJ 1 MG/ML VIAL 2 ML 2 MG IV (12:56)
[2024-06-09 13:03] LABS: Base Excess 3 (-3-3); HCO3 30 mEq/L (20-26); Inspired Oxygen, FIO2 100 %; O2 Saturation 99 % (91-98); PCO2 57 mmHg (32.0-48.0); PO2 158 mmHg (83-108); pH, Arterial 7.33 (7.35-7.45)
[2024-06-09 13:05] LABS: Allen Test Not Performed; Puncture Site Arterial Line
--- NOTE | 2024-06-09 13:57 | PC.NURSE ---
Handed off report to Maty. Bed low, locked, siderails locked.
[2024-06-09] MEDS: PROPOFOL 1,000 MG IVPB 1,000 MG/100 ML VIAL 13.536 MG IV (14:31)
[2024-06-09] MEDS: ACETAMINOPHEN SOL 325 MG/10 ML UDC 975 MG PO (14:38)
--- NOTE | 2024-06-09 15:12 | PC.SS ---
Update: Patient remains intubated/sedated/paralyzed. Plan to re-start feeds today. Patient not receiving pressors.
[2024-06-09 15:30] LABS: Lactate (Lactic Acid) 1.8 mMol/L (0.4-2.0)
[2024-06-09 15:32] LABS: Basophils % (Auto) 0 % (0-2.5); Eosinophils % (Auto) 0 % (0-10); Hematocrit 35.9 % (41.0-53.0); Hemoglobin 10.9 g/dL (13.5-16.0); Immature Granulocytes % (Auto) 1 % (0-0); Immature Granulocytes Auto 0.16 Thou/mm3 (0.00-0.00); Lymphocytes # (Auto) 0.3 Thou/mm3 (1.0-4.8); Lymphocytes % (Auto) 2 % (10-50); Mean Corpuscular HGB Conc 30.4 g/dl (31.0-37.0); Mean Corpuscular Hemoglobin 22.8 pg (25.0-35.0); Mean Corpuscular Volume 75 fL (80-100); Monocytes # (Auto) 0.1 Thou/mm3 (0.0-0.8); Monocytes % (Auto) 1 % (0-12); Neutrophils # (Auto) 13.9 Thou/mm3 (1.8-7.7); Neutrophils % (Auto) 96 % (37-80); Nucleated Red Blood Cell % 0 /100 WBC (0); Platelet Count 417 Thou/mm3 (140-440); Red Blood Count 4.78 Miln/mm3 (4.50-5.90); White Blood Count 14.5 Thou/mm3 (3.8-10.6)
[2024-06-09 15:51] LABS: Alanine Aminotransferase 487 U/L (10-49); Albumin, Serum 3.5 gm/dL (3.5-5.0); Alkaline Phosphatase 130 U/L (46-116); Anion Gap 2 (7-16); Aspartate Amino Transferase 124 U/L (0-34); BUN/Creatinine Ratio 21 Ratio (12-20); Bilirubin,Total 0.4 mg/dL (0.3-1.2); Blood Urea Nitrogen 17 mg/dL (9-23); Calcium 8.2 mg/dL (8.3-10.6); Calcium (Corrected) 8.6 mg/dL (8.5-10.1); Carbon Dioxide 31.3 mMol/L (20.0-31.0); Chloride 100 mMol/L (98-107); Creatinine (Component) 0.8 mg/dL (0.6-1.3); Globulin 3.6 gm/dL (2.3-3.5); Glucose 196 mg/dL (74-106); Osmolality,Calculated 272 (275-295); Potassium 4.5 mMol/L (3.4-5.1); Sodium 133 mMol/L (136-145); Total Protein 7.1 gm/dL (5.7-8.2); eGFR > 60 See Note
[2024-06-09] MEDS: PIPER/TAZO 3.375 GM 50 ML IV ×2 (16:57→21:18)
[2024-06-09] MEDS: VANCOMYCIN/WATER 1GM IVPB 200 ML IV (16:57)
[2024-06-09 17:48] LABS: HIV-1 RNA, QN PCR 5660000 copies/mL
[2024-06-09] MEDS: Morphine IV Drip 100mg/100ml 100 ML 15 MG IV ×2 (18:19→23:25)
[2024-06-09] MEDS: PROPOFOL 1,000 MG IVPB 1,000 MG/100 ML VIAL 22.56 MG IV ×2 (18:22→23:26)
[2024-06-09] MEDS: ALBUTEROL/IPRATROPIUM (Duoneb) RT SOL 3 ML NEBU INH ×2 (18:51→22:18)
[2024-06-09] MEDS: VANCOMYCIN/NS 750 MG IVPB 750 MG/150 ML BAG 120 MG IV (21:18)
[2024-06-09 22:04] LABS: HIV 1 Antibody POSITIVE
--- NOTE | 2024-06-09 23:11 | PC.RT ---
HME changed at this time.
[2024-06-10] VITALS (36 sets, daily range): BP systolic 93–207; BP diastolic 46–84; PULSE 87–115; RESP 26–37; TEMP 36.9–37.8; O2SAT 92–99
[2024-06-10] MEDS: PROPOFOL 1,000 MG IVPB 1,000 MG/100 ML VIAL 22.56 MG IV ×5 (02:43→19:42)
--- NOTE | 2024-06-10 05:00 | XR_ITS ---
Examination: AP chest single view TECHNIQUE: AP portable semiupright chest single view Exam date and time: June 10, 2024 0509 hours Comparison June 09, 2024 INDICATIONS: Hypoxic respiratory failure this week postintubation, extensive pneumonia ARDS pattern on imaging this week FINDINGS: Severe bilateral lung opacity Normal heart size Tracheal tube tip 6 cm above sunil The orogastric tube is in the stomach, the tip below the level of the film Right internal jugular temporary dialysis catheter tip SVC satisfactory position, no pneumothorax IMPRESSION: Severe bilateral pneumonia/ARDS pattern
[2024-06-10 05:01] LABS: Base Excess 9 (-3-3); HCO3 38 mEq/L (20-26); Inspired Oxygen, FIO2 45 %; O2 Saturation 90 % (91-98); PCO2 78 mmHg (32.0-48.0); PO2 65 mmHg (83-108)
[2024-06-10 05:04] LABS: Allen Test Not Performed; Puncture Site Arterial Line
--- NOTE | 2024-06-10 05:12 | PC.RT ---
fio2 increased to 50% per abg results, Dr. Mckenzie made aware.
[2024-06-10] MEDS: VANCOMYCIN/NS 750 MG IVPB 750 MG/150 ML BAG 120 MG IV (05:45)
[2024-06-10] MEDS: TRIMETHOPRIM 160 MG/SULFA 800 MG SUSP 20 ML UDC 40 ML PO ×4 (05:45→21:10)
[2024-06-10] MEDS: LABETALOL INJ 5 MG/ML VIAL 20 ML 10 MG IVP (05:56)
[2024-06-10] MEDS: Morphine IV Drip 100mg/100ml 100 ML 15 MG IV (06:05)
[2024-06-10] MEDS: PIPER/TAZO 3.375 GM 50 ML IV ×3 (06:11→21:11)
[2024-06-10 06:12] LABS: Basophils % (Auto) 0 % (0-2.5); Eosinophils # (Auto) 0.9 Thou/mm3 (0.0-0.5); Eosinophils % (Auto) 6 % (0-10); Hematocrit 36.4 % (41.0-53.0); Hemoglobin 10.8 g/dL (13.5-16.0); Immature Granulocytes % (Auto) 1 % (0-0); Immature Granulocytes Auto 0.11 Thou/mm3 (0.00-0.00); Lymphocytes # (Auto) 0.3 Thou/mm3 (1.0-4.8); Lymphocytes % (Auto) 2 % (10-50); Mean Corpuscular HGB Conc 29.7 g/dl (31.0-37.0); Mean Corpuscular Hemoglobin 22.4 pg (25.0-35.0); Mean Corpuscular Volume 75 fL (80-100); Monocytes # (Auto) 0.1 Thou/mm3 (0.0-0.8); Monocytes % (Auto) 1 % (0-12); Neutrophils # (Auto) 12.4 Thou/mm3 (1.8-7.7); Neutrophils % (Auto) 90 % (37-80); Nucleated Red Blood Cell # 0.02 Thou/mm3 (0.00-0.00); Nucleated Red Blood Cell % 0 /100 WBC (0); Platelet Count 374 Thou/mm3 (140-440); RDW Standard Deviation 53.3 fL (35.1-43.9); Red Blood Count 4.83 Miln/mm3 (4.50-5.90); White Blood Count 13.8 Thou/mm3 (3.8-10.6)
[2024-06-10 06:19] LABS: HIV Genotype* DETECTED; HIV-1 RNA, QN PCR Log 6.75
[2024-06-10 06:21] LABS: HIV 2 Antibody NEGATIVE; HIV Ag/Ab, 4th Gen REPEATEDLY REACTIVE
[2024-06-10 07:15] LABS: Alanine Aminotransferase 466 U/L (10-49); Albumin, Serum 3.4 gm/dL (3.5-5.0); Alkaline Phosphatase 121 U/L (46-116); Anion Gap 2 (7-16); Aspartate Amino Transferase 142 U/L (0-34); BUN/Creatinine Ratio 26 Ratio (12-20); Blood Urea Nitrogen 18 mg/dL (9-23); Calcium 8.9 mg/dL (8.3-10.6); Calcium (Corrected) 9.4 mg/dL (8.5-10.1); Carbon Dioxide 36.1 mMol/L (20.0-31.0); Chloride 99 mMol/L (98-107); Creatine Kinase 220 U/L (34-171); Creatinine (Component) 0.7 mg/dL (0.6-1.3); Estimated Creatinine Clearance 129.1 mL/min (>60); Globulin 3.3 gm/dL (2.3-3.5); Glucose 114 mg/dL (74-106); Osmolality,Calculated 276 (275-295); Potassium 4.6 mMol/L (3.4-5.1); Sodium 137 mMol/L (136-145); Total Protein 6.7 gm/dL (5.7-8.2); eGFR > 60 See Note
--- NOTE | 2024-06-10 08:17 | PC.NURSE ---
Received SBAR from RN, pt was repositioned. Bed low, locked, in lowest position.
[2024-06-10] MEDS: PANTOPRAZOLE INJ 40 MG VIAL IVP (08:30)
[2024-06-10] MEDS: ENOXAPARIN SOD INJ 40 MG/0.4 ML SYRINGE SC (08:31)
[2024-06-10] MEDS: FLUCONAZOLE/NS 400 MG IVPB 400 MG/200 ML BAG 100 MG IV (08:31)
[2024-06-10] MEDS: ACETAMINOPHEN SOL 325 MG/10 ML UDC 975 MG PO (08:32)
[2024-06-10] MEDS: [UNRECOGNIZED DRUG - REMARK] 400 MG NG ×2 (08:33→21:11)
[2024-06-10] MEDS: EMTRICITABINE 200 MG/TENOFOVIR 300 MG TAB (NON-FORM) 1 TAB PO (08:39)
[2024-06-10] MEDS: PATIROMER CALCIUM 8.4 GM PACKET (NON-FORM) NG (08:39)
[2024-06-10] MEDS: MICAFUNGIN SODIUM INJ 100 MG in SODIUM CHLORIDE 0.9% 100 ML IV (09:21)
[2024-06-10] MEDS: FUROSEMIDE INJ 10 MG/ML 4ML VIAL 40 MG IVP (09:28)
[2024-06-10 09:47] LABS: Base Excess 10 (-3-3); HCO3 40 mEq/L (20-26); Inspired Oxygen, FIO2 45 %; O2 Saturation 89 % (91-98); PCO2 88 mmHg (32.0-48.0); PO2 65 mmHg (83-108); pH, Arterial 7.27 (7.35-7.45)
[2024-06-10 09:54] LABS: Puncture Site Arterial Line
[2024-06-10 09:55] LABS: Allen Test Not Performed
--- NOTE | 2024-06-10 10:34 | ESPR_ITS ---
Subjective Subjective Interval history: vanco is superfluous with bactrim ongoing. would check G6 pd if considering dapsone. that would likely be the next line rx if we have to go off bactrim. sister in room. aware of dx. Exam Vital Signs Temp Pulse Resp BP Pulse Ox O2 Del Method O2 Flow Rate 99.7 F 104 H 30 H 186/59 H 96 Mechanical Ventilation 40 06/10/24 09:32 06/10/24 09:28 06/10/24 06:20 06/10/24 09:28 06/10/24 09:00 06/10/24 08:00 06/09/24 12:16 FiO2 50 06/10/24 08:00 Narrative Exam pt on vent at 45%. sister in room. was febrile yesterday. has been on bactrim for about 10d now. response is variable. no guarantees offered at any time Objective - Internal Medicine Labs 06/11/24 05:26 06/11/24 05:26 Labs: Laboratory Results - last 24 hr 05/27/24 06/02/24 06/07/24 12:27 05:12 10:06 WBC RBC Hgb Hct MCV MCH MCHC RDW Std Deviation Plt Count Neut % (Auto) Lymph % (Auto) Thayer % (Auto) Eos % (Auto) Baso % (Auto) Neut # (Auto) Lymph # (Auto) Thayer # (Auto) Eos # (Auto) Baso # (Auto) Immature Gran # (Auto) Absolute Nucleated RBC Immature Gran % Nucleated RBC % Puncture Site ABG pH ABG pCO2 ABG pO2 ABG HCO3 ABG O2 Saturation ABG Base Excess FiO2 Sodium Potassium Chloride Carbon Dioxide Anion Gap BUN Creatinine Estim Creat Clear Calc eGFR BUN/Creatinine Ratio Glucose Calculated Osmolality Lactic Acid Calcium Corrected Calcium Total Bilirubin AST ALT Alkaline Phosphatase Total Creatine Kinase Total Protein Albumin Globulin Albumin/Globulin Ratio HIV-1 Antibody POSITIVE A HIV-1 RNA (PCR) [id number] H HIV-1 RNA (PCR) log 6.75 H HIV Genotype DETECTED A HIV-2 Antibody NEGATIVE HIV 1&2 Ag/Ab, 4th Gen REPEATEDLY REACTIVE A HIV (1&2) Ab Confirm See Cmnt-Confrm=Pos A 06/09/24 06/09/24 06/09/24 11:50 12:52 15:09 WBC 14.5 H D RBC 4.78 Hgb 10.9 L Hct 35.9 L MCV 75 L MCH 22.8 L MCHC 30.4 L RDW Std Deviation 54.0 H Plt Count 417 Neut % (Auto) 96 H Lymph % (Auto) 2 L Thayer % (Auto) 1 Eos % (Auto) 0 Baso % (Auto) 0 Neut # (Auto) 13.9 H Lymph # (Auto) 0.3 L Thayer # (Auto) 0.1 Eos # (Auto) 0.0 Baso # (Auto) 0.0 Immature Gran # (Auto) 0.16 H Absolute Nucleated RBC 0.00 Immature Gran % 1 H Nucleated RBC % 0 Puncture Site Arterial Line ABG pH 7.33 L ABG pCO2 57 H D ABG pO2 158 H D ABG HCO3 30 H ABG O2 Saturation 99 H ABG Base Excess 3 FiO2 100 Sodium 133 L Potassium 3.8 D 4.5 D Chloride 100 Carbon Dioxide 31.3 H Anion Gap 2 L BUN 17 Creatinine 0.8 Estim Creat Clear Calc 113.0 eGFR > 60 BUN/Creatinine Ratio 21 H Glucose 196 H D Calculated Osmolality 272 L Lactic Acid 1.8 Calcium 8.2 L Corrected Calcium 8.6 Total Bilirubin 0.4 AST 124 H ALT 487 H Alkaline Phosphatase 130 H Total Creatine Kinase Total Protein 7.1 Albumin 3.5 Globulin 3.6 H Albumin/Globulin Ratio 1.0 L HIV-1 Antibody HIV-1 RNA (PCR) HIV-1 RNA (PCR) log HIV Genotype HIV-2 Antibody HIV 1&2 Ag/Ab, 4th Gen HIV (1&2) Ab Confirm 06/10/24 06/10/24 06/10/24 04:40 05:49 09:40 WBC 13.8 H RBC 4.83 Hgb 10.8 L Hct 36.4 L MCV 75 L MCH 22.4 L MCHC 29.7 L RDW Std Deviation 53.3 H Plt Count 374 D Neut % (Auto) 90 H Lymph % (Auto) 2 L Thayer % (Auto) 1 Eos % (Auto) 6 Baso % (Auto) 0 Neut # (Auto) 12.4 H Lymph # (Auto) 0.3 L Thayer # (Auto) 0.1 Eos # (Auto) 0.9 H Baso # (Auto) 0.0 Immature Gran # (Auto) 0.11 H Absolute Nucleated RBC 0.02 H Immature Gran % 1 H Nucleated RBC % 0 Puncture Site Arterial Line Arterial Line ABG pH 7.30 L 7.27 L ABG pCO2 78 H* D 88 H* D ABG pO2 65 L D 65 L ABG HCO3 38 H 40 H ABG O2 Saturation 90 L 89 L ABG Base Excess 9 H 10 H FiO2 45 45 Sodium 137 Potassium 4.6 Chloride 99 Carbon Dioxide 36.1 H Anion Gap 2 L BUN 18 Creatinine 0.7 Estim Creat Clear Calc 129.1 eGFR > 60 BUN/Creatinine Ratio 26 H Glucose 114 H D Calculated Osmolality 276 Lactic Acid Calcium 8.9 Corrected Calcium 9.4 Total Bilirubin AST 142 H ALT 466 H Alkaline Phosphatase 121 H Total Creatine Kinase 220 H Total Protein 6.7 Albumin 3.4 L Globulin 3.3 Albumin/Globulin Ratio 1.0 L HIV-1 Antibody HIV-1 RNA (PCR) HIV-1 RNA (PCR) log HIV Genotype HIV-2 Antibody HIV 1&2 Ag/Ab, 4th Gen HIV (1&2) Ab Confirm ABG Interpretation ABG results: 05/27/24 05/29/24 05/29/24 23:37 10:44 22:08 ABG pH 7.51 H 7.50 H 7.48 H ABG pCO2 28 L 32 32 ABG pO2 75 L 79 L 145 H D ABG HCO3 23 25 24 ABG O2 Saturation 96 95 98 ABG Base Excess 0 2 1 05/30/24 05/31/24 06/04/24 08:45 04:54 02:10 ABG pH 7.47 H 7.45 7.45 ABG pCO2 35 38 36 ABG pO2 86 D 82 L 139 H ABG HCO3 26 26 25 ABG O2 Saturation 97 96 98 ABG Base Excess 2 2 1 06/04/24 06/05/24 06/05/24 18:16 11:36 12:59 ABG pH 7.44 7.11 L* D 7.20 L ABG pCO2 36 94 H* D 68 H D ABG pO2 80 L D 150 H D 121 H D ABG HCO3 24 30 H 26 ABG O2 Saturation 94 97 97 ABG Base Excess 0 -2 -3 06/05/24 06/06/24 06/06/24 19:25 04:13 15:27 ABG pH 7.22 L 7.27 L 7.30 L ABG pCO2 64 H 57 H 60 H ABG pO2 122 H 153 H D 74 L D ABG HCO3 26 26 29 H ABG O2 Saturation 97 99 H 92 ABG Base Excess -3 -2 2 06/07/24 06/07/24 06/08/24 03:55 09:59 04:20 ABG pH 7.41 D 7.43 7.45 ABG pCO2 56 H 55 H 50 H ABG pO2 293 H D 78 L D 75 L ABG HCO3 36 H 37 H 35 H ABG O2 Saturation 99 H 95 94 ABG Base Excess 10 H 11 H 10 H 06/08/24 06/08/24 06/08/24 11:05 11:50 13:18 ABG pH 7.17 L* D 7.10 L* 7.15 L* ABG pCO2 95 H* D 115 H* D 88 H* D ABG pO2 89 75 L 72 L ABG HCO3 34 H 36 H 31 H ABG O2 Saturation 92 84 L 85 L ABG Base Excess 3 4 H 0 06/08/24 06/09/24 06/09/24 17:02 01:33 03:15 ABG pH 7.18 L* 7.22 L 7.27 L ABG pCO2 50 H D 91 H* D 82 H* ABG pO2 82 L 105 D 86 ABG HCO3 19 L 37 H 38 H ABG O2 Saturation 93 97 95 ABG Base Excess -9 L 7 H 9 H 06/09/24 06/09/24 06/10/24 05:08 12:52 04:40 ABG pH 7.31 L 7.33 L 7.30 L ABG pCO2 75 H* 57 H D 78 H* D ABG pO2 97 158 H D 65 L D ABG HCO3 38 H 30 H 38 H ABG O2 Saturation 97 99 H 90 L ABG Base Excess 10 H 3 9 H 06/10/24 09:40 ABG pH 7.27 L ABG pCO2 88 H* D ABG pO2 65 L ABG HCO3 40 H ABG O2 Saturation 89 L ABG Base Excess 10 H Assessment & Plan A&P Narrative pneumonia. cocci neg. procal not neg. pjp on bal hiv. infection, new resp failure, hypoxic jo ann, resolved. acute febrile illness. cause uncertain. he has hiv, gf needs to be tested. ok to start rx with whatever the facility has available..I will see him on Thursday. ok for iv bactrim for now. it seems the way to go to assure administration of the med. ok for zosyn and micafungin empirically, vanco is superfluous with ongoing bactrim, so will stop the vanco. if bc pos, please remove hd line if possible. crytpo ag pending too. ordered the other day, am not sure what happened to it Time Spent With Patient Time: Total time spent is greater than 50% in coordination of care (as documented) at patient's floor/unit and/or counseling patient:
[2024-06-10] MEDS: MIDAZOLAM/NS 100 MG IVPB 100 MG/100 ML BAG IV (10:37)
--- NOTE | 2024-06-10 11:00 | PD.RESPRO ---
Documentation for date of: 06/10/24 Subjective Subjective Interval history: Patient is doing better today with ABG for this morning revealing a CO2 of 78 and a pH of 7.30. We are allowing for permissive hypercapnia and O2 65. Revealing PA/FiO2 ratio of 147. Overnight sedation was changed from fentanyl to morphine we will continue to titrate up morphine based on his hemodynamic stability. Patient became hypertensive and we suspect he requires more sedation so we will increase morphine. We will continue with paralytic use for 1 more day and discontinue tomorrow after 3 total days of paralytics. Patient's vancomycin was discontinued by infectious disease due to the fact that he remains on Bactrim. Dr Hope did suggest ordering a G6PD test to assess for G6PD deficiency in case we do switch to dapsone. Continuing with Bactrim, micafungin, and Zosyn. Transaminitis is continuing to improve and patient remains on Nepro with tube feeds at 40 cc an hour with low amounts of residuals. Last bowel movement was noted to be June 08 and he is receiving GI prophylaxis with Protonix. Hyperkalemia this morning appear to have been resolved with most recent potassium noted at 4.6. We will repeat another potassium at 2 PM to see if patient will require further hemodialysis but we will also initiate Lasix 40 mg IV push twice daily for diuresis in hopes that that will contribute to decreasing his hyperkalemia and help improve his potassium. Continues to remain anemic with iron deficiency anemia but hemoglobin is stable and is not a candidate for blood transfusion or iron repletion currently. Exam Vital Signs Temp Pulse Resp BP Pulse Ox O2 Del Method O2 Flow Rate 99.7 F 104 H 30 H 159/62 H 94 L Mechanical Ventilation 40 06/10/24 09:32 06/10/24 10:53 06/10/24 06:20 06/10/24 10:53 06/10/24 10:53 06/10/24 08:00 06/09/24 12:16 FiO2 45 06/10/24 10:53 Narrative Exam Gen: Well-developed and well-nourished. Sedated. HEENT: NCAT, PERRLA, EOMI, MMM, anicteric conjunctivae. CVS: normal S1 and S2. RRR. No M/R/G. Resp: Coarse breathing bilaterally. Abd: soft, non-tender, non-distended. BS+ in all 4 quadrants. MSK: Good ROM in BUE & BLE. No edema or rash. Multiple tattoos present. Neuro: No gross focal neurological finding. Psych: Impossible to assess. Objective Labs 06/18/24 05:40 06/18/24 05:40 Labs: Laboratory Results - last 24 hr 06/02/24 06/07/24 06/09/24 05:12 10:06 11:50 WBC RBC Hgb Hct MCV MCH MCHC RDW Std Deviation Plt Count Neut % (Auto) Lymph % (Auto) Metcalfe % (Auto) Eos % (Auto) Baso % (Auto) Neut # (Auto) Lymph # (Auto) Metcalfe # (Auto) Eos # (Auto) Baso # (Auto) Immature Gran # (Auto) Absolute Nucleated RBC Immature Gran % Nucleated RBC % Puncture Site ABG pH ABG pCO2 ABG pO2 ABG HCO3 ABG O2 Saturation ABG Base Excess FiO2 Sodium Potassium 3.8 D Chloride Carbon Dioxide Anion Gap BUN Creatinine Estim Creat Clear Calc eGFR BUN/Creatinine Ratio Glucose Calculated Osmolality Lactic Acid Calcium Corrected Calcium Total Bilirubin AST ALT Alkaline Phosphatase Total Creatine Kinase Total Protein Albumin Globulin Albumin/Globulin Ratio HIV-1 Antibody POSITIVE A HIV-1 RNA (PCR) [id number] H HIV-1 RNA (PCR) log 6.75 H HIV Genotype DETECTED A HIV-2 Antibody NEGATIVE HIV 1&2 Ag/Ab, 4th Gen REPEATEDLY REACTIVE A 06/09/24 06/09/24 06/10/24 12:52 15:09 04:40 WBC 14.5 H D RBC 4.78 Hgb 10.9 L Hct 35.9 L MCV 75 L MCH 22.8 L MCHC 30.4 L RDW Std Deviation 54.0 H Plt Count 417 Neut % (Auto) 96 H Lymph % (Auto) 2 L Metcalfe % (Auto) 1 Eos % (Auto) 0 Baso % (Auto) 0 Neut # (Auto) 13.9 H Lymph # (Auto) 0.3 L Metcalfe # (Auto) 0.1 Eos # (Auto) 0.0 Baso # (Auto) 0.0 Immature Gran # (Auto) 0.16 H Absolute Nucleated RBC 0.00 Immature Gran % 1 H Nucleated RBC % 0 Puncture Site Arterial Line Arterial Line ABG pH 7.33 L 7.30 L ABG pCO2 57 H D 78 H* D ABG pO2 158 H D 65 L D ABG HCO3 30 H 38 H ABG O2 Saturation 99 H 90 L ABG Base Excess 3 9 H FiO2 100 45 Sodium 133 L Potassium 4.5 D Chloride 100 Carbon Dioxide 31.3 H Anion Gap 2 L BUN 17 Creatinine 0.8 Estim Creat Clear Calc 113.0 eGFR > 60 BUN/Creatinine Ratio 21 H Glucose 196 H D Calculated Osmolality 272 L Lactic Acid 1.8 Calcium 8.2 L Corrected Calcium 8.6 Total Bilirubin 0.4 AST 124 H ALT 487 H Alkaline Phosphatase 130 H Total Creatine Kinase Total Protein 7.1 Albumin 3.5 Globulin 3.6 H Albumin/Globulin Ratio 1.0 L HIV-1 Antibody HIV-1 RNA (PCR) HIV-1 RNA (PCR) log HIV Genotype HIV-2 Antibody HIV 1&2 Ag/Ab, 4th Gen 06/10/24 06/10/24 05:49 09:40 WBC 13.8 H RBC 4.83 Hgb 10.8 L Hct 36.4 L MCV 75 L MCH 22.4 L MCHC 29.7 L RDW Std Deviation 53.3 H Plt Count 374 D Neut % (Auto) 90 H Lymph % (Auto) 2 L Metcalfe % (Auto) 1 Eos % (Auto) 6 Baso % (Auto) 0 Neut # (Auto) 12.4 H Lymph # (Auto) 0.3 L Metcalfe # (Auto) 0.1 Eos # (Auto) 0.9 H Baso # (Auto) 0.0 Immature Gran # (Auto) 0.11 H Absolute Nucleated RBC 0.02 H Immature Gran % 1 H Nucleated RBC % 0 Puncture Site Arterial Line ABG pH 7.27 L ABG pCO2 88 H* D ABG pO2 65 L ABG HCO3 40 H ABG O2 Saturation 89 L ABG Base Excess 10 H FiO2 45 Sodium 137 Potassium 4.6 Chloride 99 Carbon Dioxide 36.1 H Anion Gap 2 L BUN 18 Creatinine 0.7 Estim Creat Clear Calc 129.1 eGFR > 60 BUN/Creatinine Ratio 26 H Glucose 114 H D Calculated Osmolality 276 Lactic Acid Calcium 8.9 Corrected Calcium 9.4 Total Bilirubin AST 142 H ALT 466 H Alkaline Phosphatase 121 H Total Creatine Kinase 220 H Total Protein 6.7 Albumin 3.4 L Globulin 3.3 Albumin/Globulin Ratio 1.0 L HIV-1 Antibody HIV-1 RNA (PCR) HIV-1 RNA (PCR) log HIV Genotype HIV-2 Antibody HIV 1&2 Ag/Ab, 4th Gen ABG Interpretation ABG results: 05/27/24 05/29/24 05/29/24 23:37 10:44 22:08 ABG pH 7.51 H 7.50 H 7.48 H ABG pCO2 28 L 32 32 ABG pO2 75 L 79 L 145 H D ABG HCO3 23 25 24 ABG O2 Saturation 96 95 98 ABG Base Excess 0 2 1 05/30/24 05/31/24 06/04/24 08:45 04:54 02:10 ABG pH 7.47 H 7.45 7.45 ABG pCO2 35 38 36 ABG pO2 86 D 82 L 139 H ABG HCO3 26 26 25 ABG O2 Saturation 97 96 98 ABG Base Excess 2 2 1 06/04/24 06/05/24 06/05/24 18:16 11:36 12:59 ABG pH 7.44 7.11 L* D 7.20 L ABG pCO2 36 94 H* D 68 H D ABG pO2 80 L D 150 H D 121 H D ABG HCO3 24 30 H 26 ABG O2 Saturation 94 97 97 ABG Base Excess 0 -2 -3 06/05/24 06/06/24 06/06/24 19:25 04:13 15:27 ABG pH 7.22 L 7.27 L 7.30 L ABG pCO2 64 H 57 H 60 H ABG pO2 122 H 153 H D 74 L D ABG HCO3 26 26 29 H ABG O2 Saturation 97 99 H 92 ABG Base Excess -3 -2 2 06/07/24 06/07/24 06/08/24 03:55 09:59 04:20 ABG pH 7.41 D 7.43 7.45 ABG pCO2 56 H 55 H 50 H ABG pO2 293 H D 78 L D 75 L ABG HCO3 36 H 37 H 35 H ABG O2 Saturation 99 H 95 94 ABG Base Excess 10 H 11 H 10 H 06/08/24 06/08/24 06/08/24 11:05 11:50 13:18 ABG pH 7.17 L* D 7.10 L* 7.15 L* ABG pCO2 95 H* D 115 H* D 88 H* D ABG pO2 89 75 L 72 L ABG HCO3 34 H 36 H 31 H ABG O2 Saturation 92 84 L 85 L ABG Base Excess 3 4 H 0 06/08/24 06/09/24 06/09/24 17:02 01:33 03:15 ABG pH 7.18 L* 7.22 L 7.27 L ABG pCO2 50 H D 91 H* D 82 H* ABG pO2 82 L 105 D 86 ABG HCO3 19 L 37 H 38 H ABG O2 Saturation 93 97 95 ABG Base Excess -9 L 7 H 9 H 06/09/24 06/09/24 06/10/24 05:08 12:52 04:40 ABG pH 7.31 L 7.33 L 7.30 L ABG pCO2 75 H* 57 H D 78 H* D ABG pO2 97 158 H D 65 L D ABG HCO3 38 H 30 H 38 H ABG O2 Saturation 97 99 H 90 L ABG Base Excess 10 H 3 9 H 06/10/24 09:40 ABG pH 7.27 L ABG pCO2 88 H* D ABG pO2 65 L ABG HCO3 40 H ABG O2 Saturation 89 L ABG Base Excess 10 H Quality Measures Quality Measures sepsis Current suspected stage: ruled out Possible source: pulmonary, GI tract/intra-abdominal, genitourinary and skin/soft tissue Blood cultures ordered: yes Antibiotic ordered: Yes Assessment & Plan Assessment Current Active Medications: Generic Name Dose Route Start Last Admin Trade Name Freq PRN Reason Stop Dose Admin Acetaminophen 975 mg 06/09/24 14:27 06/10/24 08:32 Acetaminophen Munira 325 Mg/10 Ml Udc PO 06/26/24 12:10 975 mg Q6H PRN Administration Pain 1-3 and Fever >101.5 Albuterol/Ipratropium 3 ml 06/05/24 11:40 06/09/24 22:18 Albuterol/Ipratropium (Duoneb) Rt Munira 3 Ml Nebu INH 07/05/24 14:59 3 ml Q4HRRT PRN Administration Wheezing Calcium Carbonate 600 mg 06/06/24 09:00 06/08/24 08:40 Calcium Carbonate 600 Mg Tablet NG 07/06/24 08:59 600 mg QDAY JUAN JOSE Administration Chlorpromazine HCl 25 mg 06/04/24 14:15 06/05/24 05:16 Chlorpromazine 25 Mg Tablet PO 07/04/24 14:14 25 mg TID JUAN JOSE Administration Dextrose 25 ml 06/06/24 08:20 Dextrose 50%-Water Inj 50 Ml Syringe IV 07/06/24 08:19 Q15MIN PRN BG 50-70 responsive npo pt Dextrose 50 ml 06/06/24 08:20 Dextrose 50%-Water Inj 50 Ml Syringe IV 07/06/24 08:19 Q15MIN PRN BG <50 OR BG <70 & pt unresponsive Emtricitabine/Tenofovir 1 tab 06/09/24 09:00 06/10/24 08:39 Emtricitabine 200 Mg/Tenofovir 300 Mg Tab (Non-Form) PO 06/16/24 08:59 1 tab QDAY JUAN JOSE Administration Enoxaparin Sodium 40 mg 06/07/24 09:00 06/10/24 08:31 Enoxaparin Sod Inj 40 Mg/0.4 Ml Syringe SC 06/21/24 08:59 40 mg QDAY JUAN JOSE Administration Furosemide 40 mg 06/10/24 09:00 06/10/24 09:28 Furosemide Inj 10 Mg/Ml 4ml Vial IVP 07/10/24 08:59 40 mg BIDD JUAN JOSE Administration Glucagon 1 mg 06/06/24 08:20 Glucagon Inj 1 Mg Vial IM Q15MIN PRN BG <70, and no IV access Heparin Sodium (Porcine) 2,200 unit 06/06/24 20:40 06/09/24 11:51 Heparin Sod Inj 1000 Unit/Ml Vial 10 Ml INDWELLCAT 06/12/24 20:39 2,200 unit X1 PRN Administration DIALYSIS Cisatracurium Besylate 200 mg/ 520 mls @ 13.303 mls/hr 06/05/24 12:05 06/10/24 09:34 Sodium Chloride IV 07/05/24 12:04 2.5 mcg/kg/min .Q24H PRN 33.257 mls/hr Per Protocol Titration Protocol 1 MCG/KG/MIN Midazolam HCl 100 mg in 100 mls @ 1 mls/hr 06/05/24 12:15 06/10/24 10:37 Versed Pf Inj In Ns Premix IV 06/10/24 12:14 4 mg/hr .Q24H PRN 4 mls/hr PER PROTOCOL Administration Protocol 1 MG/HR Norepinephrine/Dextrose 8 mg in 250 mls @ 7.05 mls/hr 06/06/24 04:07 06/09/24 11:00 Levophed In D5w 8mg/250ml IV 07/06/24 04:06 0 mcg/kg/min .Q24H PRN 0 mls/hr PER PROTOCOL Titration Protocol 0.05 MCG/KG/MIN Fluconazole 400 mg in 200 mls @ 100 mls/hr 06/06/24 07:30 06/10/24 08:31 Diflucan/Ns Ivpb IV 06/13/24 07:29 100 mls/hr QDAY JUAN JOSE Administration Micafungin Sodium 100 mg/ 100 mls @ 100 mls/hr 06/09/24 09:00 06/10/24 09:21 Sodium Chloride IV 06/24/24 08:59 100 mls/hr QDAY JUAN JOSE Administration Propofol 1,000 mg in 100 mls @ 2.256 mls/hr 06/09/24 14:26 06/10/24 10:36 Diprivan Ivpb IV 07/09/24 14:25 50 mcg/kg/min .Q24H PRN 22.56 mls/hr PER PROTOCOL Administration Protocol 5 MCG/KG/MIN Piperacillin/Tazobactam/Dextrose 50 mls @ 12.5 mls/hr 06/09/24 15:30 06/10/24 06:11 Zosyn IV 06/16/24 15:18 12.5 mls/hr Q8HR JUAN JOSE Administration Morphine Sulfate 100 mls @ 15 mls/hr 06/09/24 18:15 06/10/24 08:58 Morphine Sulfate Iv Drip 100mg/100ml IV 06/14/24 17:13 20 mg/hr .Q6H40M PRN 20 mls/hr SEDATION Titration Protocol 15 MG/HR Methylprednisolone Sodium Succinate 40 mg 06/10/24 09:00 06/10/24 08:30 Methylprednisolone Sod Succ 40 Mg Vial IVP 06/17/24 08:59 40 mg QDAY JUAN JOSE Administration Ondansetron HCl 4 mg 05/29/24 21:51 06/04/24 17:44 Ondansetron Inj 2 Mg/Ml Inj 2 Ml IV 06/28/24 21:50 4 mg Q6HR PRN Administration NAUSEA OR VOMITING Protocol Pantoprazole Sodium 40 mg 06/06/24 09:00 06/10/24 08:30 Pantoprazole Inj 40 Mg Vial IVP 07/06/24 08:59 40 mg QDAY JUAN JOSE Administration Patiromer 8.4 gm 06/09/24 10:45 06/10/24 08:39 Patiromer Calcium 8.4 Gm Packet (Non-Form) NG 07/09/24 10:44 8.4 gm QDAY JUAN JOSE Administration Promethazine HCl/Dextromethorphan 5 ml 05/28/24 16:56 05/30/24 02:34 Promethazine/Dm Syrup 5 Ml Dose PO 06/27/24 16:55 5 ml Q4HR PRN Administration COUGH Protocol Quetiapine Fumarate 50 mg 06/10/24 21:00 Quetiapine Fumarate 25 Mg Tablet PO 07/10/24 20:59 HS JUAN JOSE Raltegravir 400 mg 06/09/24 09:00 06/10/24 08:33 Raltegravir 100 Mg Chew (Non-Form) NG 06/16/24 08:59 400 mg BID JUAN JOSE Administration Sennosides 1 tab 05/27/24 12:11 Senna Tablet PO 06/26/24 12:10 QDAY PRN constipation Protocol Trimethoprim/Sulfamethoxazole 40 ml 06/09/24 12:00 06/10/24 05:45 Trimethoprim 160 Mg/Sulfa 800 Mg Susp 20 Ml Udc PO 06/16/24 11:59 40 ml QID JUAN JOSE Administration Plan This is a 39-year-old gentleman with no known previous past medical history who initially presented to [facility] on 05/27/2024 with a chief complaint of shortness of breath and cough, and recent history of chills, body aches, generalized weakness, fever, and night sweats progressively worsening over the prior weeks, subsequently admitted for acute hypoxic respiratory failure secondary to bilateral community-acquired pneumonia. He has had multiple rapid response alerts during the course of hospitalization for increasing oxygen requirements and recurrent fevers. He was monitored in ICU from 05/30-05/31, now currently upgraded to ICU again 06/05 for intubation and bronchoscopy. NEURO Prior to intubation, patient is awake, alert, and oriented x3, following commands, conversational. #No active problem, sedated -Morphine drip, midazolam with a RASS goal of -4 -Precedex was discontinued and patient was transition to a morphine drip. - Fentanyl was discontinued due to concern for tachyphylaxis. Continue with morphine drip current rate is 20 MGs and will continue to titrate until patient is more hemodynamically stable. -Cisatracurium, train of four goal 2 out 4 twitches. CARDIO #Septic shock, resolved #Sinus tachycardia, resolved Most likely shock is due to sepsis landaverde to bilateral pneumonia. Tachycardia most likely secondary to respiratory distress and agitation. BP mostly had been maintaining MAP >65, 06/09/24 in the morning, MAP went down to 59-60, he was started on levophed. -Continuous telemetry -Echo was read 06/06: EF 55-60% - levophed to maintain MAP >65 - repeated blood, urine, sputum cultures PULM #Acute hypoxic respiratory failure Secondary to #Bilateral pneumocystis jirovecii pneumonia Patient presented with dyspnea and cough, requiring 4L NC on first ED evaluation, and history of chills, body aches, generalized weakness, fever, and night sweats progressively worsening over the prior weeks. Over hospitalization patient supplemental O2 requirements increased, requiring HiFlow by the second day. He has been treated empirically for community acquired pneumonia, but continues to have worsening respiratory status. Follow up CXRs continue to show worsening fluffy bilateral extensive infiltrates. Ddx: Infectious pneumonia bacterial vs fungal vs less likely viral, autoimmune causes, drug-induced causes. Negative studies: Cocci IgM and IgG, Hepatitis panel, Syphilis, Legionella, H.flu, N.meningitidis, Strep B, Strep pneumoniae, COVID, RSV, Flu A & B. Indeterminate: TB quantiferon GOLD Positive: Beta-(1,3)-D-Glucan 06/05/2024 Bronchoscopy completed today, which showed normal-appearing mucosa and no mucous plugging, hemorrhage, or friability bilaterally. Silver stain of BAL showed PJP and other fungi, possibly Kassandra. Kassandra is most likely a contaminant. Fungal cultures are pending. Bronchoalveolar washings culture were negative for growth. Tx: -Continue Bactrim, fluconazole at half dose, Zosyn, and micafungin -Restarted Zosyn - Vancomycin -present. Discontinued by infectious disease due to the fact patient is receiving Bactrim - Micafungin 06/09/24-present -Fungal culture pending -DuoNebs q4h as needed ?Ordered G6PD send out in case we switch the patient over to dapsone to protect from hemolytic side effects #ARDS Patient continues to have increased oxygen demands with worsening bilateral infiltrates on CXR. Will maintain ARDS ventilation protocol. Ddx: In setting of worsening pneumonia. In the morning 06/06, vent settings were: VT 410, RR35, FiO2 70 ABG 06/09/24: pH 7.31, pCO2 75, pO2 97. 06/08/24 P:F ratio 89/1=89. Severe ARDS. 06/09/24 P:F ratio 97/83=998. Moderate ARDS. 06/10/2024 P:F ratio 65/.94=392 Tx: -Will try to downtitrate FiO2. Current FiO2 is 45% -Low tidal volume ventilation, will try to keep TV ~380 according to 6 mL/kg predicted body weight -Maintain peak plateau <30 -Permissive hypercapnia -Follow up ABG -Methylprednisolone 40 mg qday GI Prophylaxis: Pantoprazole 40 mg IV qday #Elevated LFTs, improving Likely due to propofol and bactrim. Mildly elevated, liver US 05/30/2024 showed normal gallbladder and hepatomegaly without lesions or evidence of obstructions. Hep panel negative. LFTs downtrended compared to 06/06/24. -Continue monitoring NEPHRO #WILL, improving #Hyperkalemia #Hyperphosphatemia #Hyponatremia, resolved #Non-anion gap respiratory acidosis Ddx: Prerenal WILL due to hypotension vs possible rhabdomyolysis vs drug toxicity (zosyn, vancomycin, bactrim) Unlikely rhabdomyolysis, CK was 511 06/06, did not uptrend. Urine output is >100 ml/hr, urine is yellow and clear. Possible underlying SIADH. Plan: -Monitor CMP, repeat potassium - Veltassa - in case increasing hyperkalemia patient will need dialysis ?Morning potassium appears good at 4.6. Will add Lasix 40 twice daily to assist in diuresis in hopes that will also assist in preventing hyperkalemia URO #No active problems -Tijerina placed 06/05/2024 HEME #Microcytic anemia Clinically no evidence of bleeding. Iron panel shows iron 17, TIBC 262, iron saturation 6, unsaturated iron binding 245. Peripheral blood film confirms microcytic hypochromic anemia with target cells. Patient hemoglobins stable, does not require transfusion at the moment, PT, INR, PTT within normal range. Plan: -Monitor H&H. Transfusing for Hgb <7 #Leukocytosis In the setting of likely infection and corticosteroids. Elevated WBC on 06/09/24 Plan: -Treatment of pneumonia as above #Thrombocytosis, resolved Likely reactive. -Continue to monitor ENDO #No active problems ID #Bilateral pneumocystis pneumonia Negative studies: Cocci IgM and IgG, Hepatitis panel, Syphilis, Legionella, H.flu, N.meningitidis, Strep B, Strep pneumoniae, COVID, RSV, Flu A & B. Indeterminate: TB quantiferon GOLD Positive: Beta-(1,3)-D-Glucan Silver stain of BA washings positive for Pneumocystis. HIV PCR positive. Patient completed 5 day course of azithromycin. Plan: -Continue Bactrim, fluconazole -ID following, appreciate reccomendations - Started HAART: truvada and raltegravir 06/09/24-present ?Slightly febrile in the a.m., received Tylenol. MSK #No active problems SKIN #No active problems DVT prophylaxis: lovenox GI prophylaxis: Pantoprazole 40 mg IV qday Diet: tube feeds Nepro Tijerina: Present (06/05- ) Lines: Peripheral IV, Right radial arterial line, central line Antibiotics: Bactrim, fluconazole, Zosyn, micafungin CODE STATUS: FULL CODE Reason for ICU care: Acute hypoxic respiratory failure secondary to bilateral pneumonia/ARDS Plan of care discussed with attending Dr. Justin Santos M.D. PGY-3 Attending Provider Attestation/Addendum Patient seen and examined with above resident, Pepper Santos MD. I agree with the findings, assessment, plan of care as documented except for any differences below. Patient continues to improve slowly with ongoing paralysis and proning for ARDS. Patient started on HAART therapy. Patient continues to be febrile. Ongoing use of Bactrim and fluconazole and addition of micafungin for low pneumocystis as well as superimposed bacterial infection. Will continue plan for paralytics but no longer requiring proning. Patient to undergo bronchoscopy for adequate pulmonary toilet as he will likely need plan for to be meeting in the coming days depending on response of gas exchange. Patient remains on tube feeds. Monitor urine output and hemodialysis to be done once again setting of hyperkalemia secondary to Bactrim. Will send off G6PD to ensure that the option of using dapsone if required for salvage/alternative therapy to Bactrim given renal dysfunction and hyperkalemia without this may be controllable with use of diuretics or Lokelma. Patient's family remains at bedside throughout the day and have been updated on ongoing plan of care with slow steady progress. Total critical care time: I personally spent 40 minutes for review of physiologic parameters, directing plan of care throughout the day, coordination of care with other specialties, and counseling patient's family at bedside. This is exclusive of time spent teaching housestaff or performing separate billable procedures. Patient continues to require critical care services for acute hypoxic respiratory failure secondary to ARDS in the setting of PJP pneumonia with possible superimposed bacterial infection. Patient continues to be at high risk for further morbidity and mortality given multiorgan dysfunction.
[2024-06-10] MEDS: Morphine IV Drip 100mg/100ml 100 ML 30 MG IV ×4 (11:46→22:06)
[2024-06-10 13:39] LABS: Misc Send Out* See Sep Rpt
--- NOTE | 2024-06-10 14:19 | PC.NURSE ---
pt received 1400 Zosyn. SBAR given to RN. Bed low, locked, and side rails up.
[2024-06-10 14:38] LABS: Alanine Aminotransferase 432 U/L (10-49); Albumin, Serum 3.5 gm/dL (3.5-5.0); Alkaline Phosphatase 128 U/L (46-116); Anion Gap 2 (7-16); Aspartate Amino Transferase 124 U/L (0-34); BUN/Creatinine Ratio 20 Ratio (12-20); Bilirubin,Total 0.4 mg/dL (0.3-1.2); Blood Urea Nitrogen 18 mg/dL (9-23); Calcium 8.6 mg/dL (8.3-10.6); Carbon Dioxide 39.6 mMol/L (20.0-31.0); Chloride 93 mMol/L (98-107); Creatinine (Component) 0.9 mg/dL (0.6-1.3); Estimated Creatinine Clearance 100.4 mL/min (>60); Globulin 3.4 gm/dL (2.3-3.5); Glucose 162 mg/dL (74-106); Osmolality,Calculated 276 (275-295); Potassium 4.6 mMol/L (3.4-5.1); Sodium 135 mMol/L (136-145); Total Protein 6.9 gm/dL (5.7-8.2); eGFR > 60 See Note
[2024-06-10 14:48] LABS: Bilirubin,Total 0.4 mg/dL (0.3-1.2); Triglycerides 218 mg/dL (30-150)
[2024-06-10] MEDS: CISATRACURIUM INJ 200 MG in SODIUM CHLORIDE 0.9% 500 ML 500 ML 23.462 MG IV (14:57)
--- NOTE | 2024-06-10 15:28 | PC.SS ---
Update: Patient remains intubated/sedated/paralyzed. Feedings have started, at goal. No skin issues, ackerman catheter in place. No pressors, IV antibiotics in place.
--- NOTE | 2024-06-10 16:19 | PC.NURSE ---
at [address] Anderson made aware of patient increase in heart rate to 115 and temperature at 99.3, no orders received
--- NOTE | 2024-06-10 16:55 | PD.INTPROC ---
Procedures Procedure Date / Time 06/10/24 1300 Arterial Line Size (Gauge): 20 Bronchoscopy Bronscopy indication(s): removal of secretions Informed consent obtained from: surrogate Time out done and the following verified: correct patient, side and site, procedure, patient position and implants and/or equipment Oxygen delivery: via mechanical vent. Vocal cords: other (via ETT, not seen) Trachea: mid appears normal, distal appears normal and secretions noted Paige: sharp in angle RUL & subsegmental branches: mucosa appears normal RML & subsegmental branches: mucosa appears normal RLL & subsegmental branches: mucosa appears normal JORGE & subsegmental branches: mucosa appears normal LLL & subsegmental branches: mucosa appears normal Bronchoalveolar lavage: Thin copious secretions throughout cleared adequately, mild suction trauma
[2024-06-10] MEDS: QUEtiapine FUMARATE 25 MG TABLET 50 MG PO (21:10)
[2024-06-10] MEDS: SENNA TABLET 1 TAB PO (22:12)
[2024-06-11] VITALS (32 sets, daily range): BP systolic 94–157; BP diastolic 46–75; PULSE 81–97; RESP 24–31; TEMP 36.2–37; O2SAT 92–100
[2024-06-11] MEDS: PROPOFOL 1,000 MG IVPB 1,000 MG/100 ML VIAL 22.56 MG IV ×2 (01:00→04:50)
[2024-06-11] MEDS: Morphine IV Drip 100mg/100ml 100 ML 30 MG IV ×3 (01:36→08:40)
[2024-06-11 04:30] LABS: Base Excess 19 (-3-3); HCO3 48 mEq/L (20-26); Inspired Oxygen, FIO2 40 %; O2 Saturation 93 % (91-98); PCO2 86 mmHg (32.0-48.0); PO2 70 mmHg (83-108); pH, Arterial 7.35 (7.35-7.45)
[2024-06-11 04:31] LABS: Allen Test Not Performed; Puncture Site Arterial Line
[2024-06-11] MEDS: FUROSEMIDE INJ 10 MG/ML 4ML VIAL 40 MG IVP (05:53)
[2024-06-11 05:54] LABS: Basophils % (Auto) 0 % (0-2.5); Eosinophils # (Auto) 0.4 Thou/mm3 (0.0-0.5); Eosinophils % (Auto) 5 % (0-10); Hemoglobin 9.2 g/dL (13.5-16.0); Immature Granulocytes % (Auto) 1 % (0-0); Immature Granulocytes Auto 0.04 Thou/mm3 (0.00-0.00); Lymphocytes # (Auto) 0.3 Thou/mm3 (1.0-4.8); Lymphocytes % (Auto) 4 % (10-50); Mean Corpuscular HGB Conc 30.7 g/dl (31.0-37.0); Mean Corpuscular Hemoglobin 22.8 pg (25.0-35.0); Mean Corpuscular Volume 74 fL (80-100); Monocytes # (Auto) 0.2 Thou/mm3 (0.0-0.8); Monocytes % (Auto) 2 % (0-12); Neutrophils % (Auto) 88 % (37-80); Nucleated Red Blood Cell # 0.02 Thou/mm3 (0.00-0.00); Nucleated Red Blood Cell % 0 /100 WBC (0); Platelet Count 283 Thou/mm3 (140-440); RDW Standard Deviation 51.8 fL (35.1-43.9); Red Blood Count 4.03 Miln/mm3 (4.50-5.90); White Blood Count 7.9 Thou/mm3 (3.8-10.6)
[2024-06-11] MEDS: TRIMETHOPRIM 160 MG/SULFA 800 MG SUSP 20 ML UDC 40 ML PO ×4 (05:54→21:49)
[2024-06-11] MEDS: PIPER/TAZO 3.375 GM 50 ML IV ×3 (05:54→21:49)
[2024-06-11] MEDS: CISATRACURIUM INJ 200 MG in SODIUM CHLORIDE 0.9% 500 ML 500 ML 35.194 MG IV (06:16)
[2024-06-11 07:07] LABS: Alanine Aminotransferase 294 U/L (10-49); Alkaline Phosphatase 100 U/L (46-116); Anion Gap 2 (7-16); Aspartate Amino Transferase 70 U/L (0-34); BUN/Creatinine Ratio 25 Ratio (12-20); Blood Urea Nitrogen 20 mg/dL (9-23); Calcium 8.6 mg/dL (8.3-10.6); Calcium (Corrected) 9.4 mg/dL (8.5-10.1); Carbon Dioxide > 40.0 mMol/L (20.0-31.0); Chloride 98 mMol/L (98-107); Creatinine (Component) 0.8 mg/dL (0.6-1.3); Globulin 2.9 gm/dL (2.3-3.5); Glucose 102 mg/dL (74-106); Osmolality,Calculated 282 (275-295); Potassium 4.4 mMol/L (3.4-5.1); Sodium 140 mMol/L (136-145); Total Protein 5.9 gm/dL (5.7-8.2); eGFR > 60 See Note
--- NOTE | 2024-06-11 07:28 | XR_ITS ---
Examination: AP chest single view Technique: AP portable semiupright chest single view Exam date and time: June 11, 2024 0749 hrs. Comparison June 10, 2024, chest films dating to June 05, 2024 Indications: Hypoxic respiratory failure, pneumonia ARDS on chest imaging to weeks Findings: Again noted extensive bilateral lung opacity Endotracheal tube tip 5.1 cm above sunil Orogastric tube in the stomach, the tip below the level film Normal heart size No pneumothorax Intact osseous structures Impression: No significant change in severe bilateral pneumonia/ARDS pattern
--- NOTE | 2024-06-11 08:11 | PD.RESPRO ---
Documentation for date of: 06/11/24 Subjective Subjective Interval history: 06/10/24: Patient is doing better today with ABG for this morning revealing a CO2 of 78 and a pH of 7.30. We are allowing for permissive hypercapnia and O2 65. Revealing PA/FiO2 ratio of 147. Overnight sedation was changed from fentanyl to morphine we will continue to titrate up morphine based on his hemodynamic stability. Patient became hypertensive and we suspect he requires more sedation so we will increase morphine. We will continue with paralytic use for 1 more day and discontinue tomorrow after 3 total days of paralytics. Patient's vancomycin was discontinued by infectious disease due to the fact that he remains on Bactrim. Dr Hope did suggest ordering a G6PD test to assess for G6PD deficiency in case we do switch to dapsone. Continuing with Bactrim, micafungin, and Zosyn. Transaminitis is continuing to improve and patient remains on Nepro with tube feeds at 40 cc an hour with low amounts of residuals. Last bowel movement was noted to be June 08 and he is receiving GI prophylaxis with Protonix. Hyperkalemia this morning appear to have been resolved with most recent potassium noted at 4.6. We will repeat another potassium at 2 PM to see if patient will require further hemodialysis but we will also initiate Lasix 40 mg IV push twice daily for diuresis in hopes that that will contribute to decreasing his hyperkalemia and help improve his potassium. Continues to remain anemic with iron deficiency anemia but hemoglobin is stable and is not a candidate for blood transfusion or iron repletion currently. 06/11/24:Patient was seen and examined by the bedside. No acute overnight events. No fevers overnight. Patient oxygen requirements decreased a little bit, his ABGs showed pH 7.35 slightly improved oxygenation. P:F ratio is 175. Chest Xray showed improvement compared to yesterday. Patient had a urine output of 5.3L, negative balance -4.4L. Cisatracurium is discontinued today, will try to slowly titrate down the sedation. Continues to receive bactrim, zosyn, micafungin. Repeat blood cultures, urine cultures are negative. ETT secretions grew GPC. ID is following patient. Exam Vital Signs Temp Pulse Resp BP Pulse Ox O2 Del Method O2 Flow Rate 98.5 F 95 27 H 104/54 L 93 L Mechanical Ventilation 40 06/11/24 04:00 06/11/24 07:05 06/11/24 07:05 06/11/24 07:05 06/11/24 07:05 06/11/24 04:00 06/09/24 12:16 FiO2 40 06/11/24 07:05 Narrative Exam Gen: Well-developed and well-nourished. Sedated. HEENT: NCAT, PERRLA, EOMI, MMM, anicteric conjunctivae. CVS: normal S1 and S2. RRR. No M/R/G. Resp: Coarse breathing bilaterally. Diffuse crackles. Abd: soft, non-tender, non-distended. BS+ in all 4 quadrants. MSK: Good ROM in BUE & BLE. No edema or rash. Multiple tattoos present. Neuro: No gross focal neurological finding. Psych: Impossible to assess. Objective Labs 06/18/24 05:40 06/18/24 05:40 Labs: Laboratory Results - last 24 hr 06/10/24 06/10/24 06/10/24 05:49 09:40 12:50 WBC RBC Hgb Hct MCV MCH MCHC RDW Std Deviation Plt Count Neut % (Auto) Lymph % (Auto) [place] % (Auto) Eos % (Auto) Baso % (Auto) Neut # (Auto) Lymph # (Auto) [place] # (Auto) Eos # (Auto) Baso # (Auto) Immature Gran # (Auto) Absolute Nucleated RBC Immature Gran % Nucleated RBC % Puncture Site Arterial Line ABG pH 7.27 L ABG pCO2 88 H* D ABG pO2 65 L ABG HCO3 40 H ABG O2 Saturation 89 L ABG Base Excess 10 H FiO2 45 Sodium 135 L Potassium 4.6 Chloride 93 L Carbon Dioxide 39.6 H Anion Gap 2 L BUN 18 Creatinine 0.9 Estim Creat Clear Calc 100.4 eGFR > 60 BUN/Creatinine Ratio 20 Glucose 162 H Calculated Osmolality 276 Calcium 8.6 Corrected Calcium 9.0 Total Bilirubin 0.4 0.4 AST 124 H ALT 432 H Alkaline Phosphatase 128 H Total Protein 6.9 Albumin 3.5 Globulin 3.4 Albumin/Globulin Ratio 1.0 L Triglycerides 218 H 06/11/24 06/11/24 04:19 05:26 WBC 7.9 D RBC 4.03 L Hgb 9.2 L Hct 30.0 L MCV 74 L MCH 22.8 L MCHC 30.7 L RDW Std Deviation 51.8 H Plt Count 283 D Neut % (Auto) 88 H Lymph % (Auto) 4 L [place] % (Auto) 2 Eos % (Auto) 5 Baso % (Auto) 0 Neut # (Auto) 7.0 Lymph # (Auto) 0.3 L [place] # (Auto) 0.2 Eos # (Auto) 0.4 Baso # (Auto) 0.0 Immature Gran # (Auto) 0.04 H Absolute Nucleated RBC 0.02 H Immature Gran % 1 H Nucleated RBC % 0 Puncture Site Arterial Line ABG pH 7.35 ABG pCO2 86 H* ABG pO2 70 L ABG HCO3 48 H ABG O2 Saturation 93 ABG Base Excess 19 H FiO2 40 Sodium 140 Potassium 4.4 Chloride 98 Carbon Dioxide > 40.0 H Anion Gap 2 L BUN 20 Creatinine 0.8 Estim Creat Clear Calc 113.0 eGFR > 60 BUN/Creatinine Ratio 25 H Glucose 102 D Calculated Osmolality 282 Calcium 8.6 Corrected Calcium 9.4 Total Bilirubin AST 70 H ALT 294 H Alkaline Phosphatase 100 D Total Protein 5.9 Albumin 3.0 L D Globulin 2.9 Albumin/Globulin Ratio 1.0 L Triglycerides ABG Interpretation ABG results: 05/27/24 05/29/24 05/29/24 23:37 10:44 22:08 ABG pH 7.51 H 7.50 H 7.48 H ABG pCO2 28 L 32 32 ABG pO2 75 L 79 L 145 H D ABG HCO3 23 25 24 ABG O2 Saturation 96 95 98 ABG Base Excess 0 2 1 05/30/24 05/31/24 06/04/24 08:45 04:54 02:10 ABG pH 7.47 H 7.45 7.45 ABG pCO2 35 38 36 ABG pO2 86 D 82 L 139 H ABG HCO3 26 26 25 ABG O2 Saturation 97 96 98 ABG Base Excess 2 2 1 06/04/24 06/05/24 06/05/24 18:16 11:36 12:59 ABG pH 7.44 7.11 L* D 7.20 L ABG pCO2 36 94 H* D 68 H D ABG pO2 80 L D 150 H D 121 H D ABG HCO3 24 30 H 26 ABG O2 Saturation 94 97 97 ABG Base Excess 0 -2 -3 06/05/24 06/06/24 06/06/24 19:25 04:13 15:27 ABG pH 7.22 L 7.27 L 7.30 L ABG pCO2 64 H 57 H 60 H ABG pO2 122 H 153 H D 74 L D ABG HCO3 26 26 29 H ABG O2 Saturation 97 99 H 92 ABG Base Excess -3 -2 2 06/07/24 06/07/24 06/08/24 03:55 09:59 04:20 ABG pH 7.41 D 7.43 7.45 ABG pCO2 56 H 55 H 50 H ABG pO2 293 H D 78 L D 75 L ABG HCO3 36 H 37 H 35 H ABG O2 Saturation 99 H 95 94 ABG Base Excess 10 H 11 H 10 H 06/08/24 06/08/24 06/08/24 11:05 11:50 13:18 ABG pH 7.17 L* D 7.10 L* 7.15 L* ABG pCO2 95 H* D 115 H* D 88 H* D ABG pO2 89 75 L 72 L ABG HCO3 34 H 36 H 31 H ABG O2 Saturation 92 84 L 85 L ABG Base Excess 3 4 H 0 06/08/24 06/09/24 06/09/24 17:02 01:33 03:15 ABG pH 7.18 L* 7.22 L 7.27 L ABG pCO2 50 H D 91 H* D 82 H* ABG pO2 82 L 105 D 86 ABG HCO3 19 L 37 H 38 H ABG O2 Saturation 93 97 95 ABG Base Excess -9 L 7 H 9 H 06/09/24 06/09/24 06/10/24 05:08 12:52 04:40 ABG pH 7.31 L 7.33 L 7.30 L ABG pCO2 75 H* 57 H D 78 H* D ABG pO2 97 158 H D 65 L D ABG HCO3 38 H 30 H 38 H ABG O2 Saturation 97 99 H 90 L ABG Base Excess 10 H 3 9 H 06/10/24 06/11/24 09:40 04:19 ABG pH 7.27 L 7.35 ABG pCO2 88 H* D 86 H* ABG pO2 65 L 70 L ABG HCO3 40 H 48 H ABG O2 Saturation 89 L 93 ABG Base Excess 10 H 19 H Quality Measures Quality Measures sepsis Current suspected stage: sepsis Possible source: pulmonary, GI tract/intra-abdominal, genitourinary and skin/soft tissue Blood cultures ordered: yes Antibiotic ordered: Yes Assessment & Plan Assessment Current Active Medications: Generic Name Dose Route Start Last Admin Trade Name Freq PRN Reason Stop Dose Admin Acetaminophen 975 mg 06/09/24 14:27 06/10/24 08:32 Acetaminophen Munira 325 Mg/10 Ml Udc PO 06/26/24 12:10 975 mg Q6H PRN Administration Pain 1-3 and Fever >101.5 Albuterol/Ipratropium 3 ml 06/05/24 11:40 06/09/24 22:18 Albuterol/Ipratropium (Duoneb) Rt Munira 3 Ml Nebu INH 07/05/24 14:59 3 ml Q4HRRT PRN Administration Wheezing Calcium Carbonate 600 mg 06/06/24 09:00 06/08/24 08:40 Calcium Carbonate 600 Mg Tablet NG 07/06/24 08:59 600 mg QDAY JUAN JOSE Administration Chlorpromazine HCl 25 mg 06/04/24 14:15 06/05/24 05:16 Chlorpromazine 25 Mg Tablet PO 07/04/24 14:14 25 mg TID JUAN JOSE Administration Dextrose 25 ml 06/06/24 08:20 Dextrose 50%-Water Inj 50 Ml Syringe IV 07/06/24 08:19 Q15MIN PRN BG 50-70 responsive npo pt Dextrose 50 ml 06/06/24 08:20 Dextrose 50%-Water Inj 50 Ml Syringe IV 07/06/24 08:19 Q15MIN PRN BG <50 OR BG <70 & pt unresponsive Emtricitabine/Tenofovir 1 tab 06/09/24 09:00 06/10/24 08:39 Emtricitabine 200 Mg/Tenofovir 300 Mg Tab (Non-Form) PO 06/16/24 08:59 1 tab QDAY JUAN JOSE Administration Enoxaparin Sodium 40 mg 06/07/24 09:00 06/10/24 08:31 Enoxaparin Sod Inj 40 Mg/0.4 Ml Syringe SC 06/21/24 08:59 40 mg QDAY JUAN JOSE Administration Furosemide 40 mg 06/10/24 09:00 06/11/24 05:53 Furosemide Inj 10 Mg/Ml 4ml Vial IVP 07/10/24 08:59 40 mg BIDD JUAN JOSE Administration Glucagon 1 mg 06/06/24 08:20 Glucagon Inj 1 Mg Vial IM Q15MIN PRN BG <70, and no IV access Heparin Sodium (Porcine) 2,200 unit 06/06/24 20:40 06/09/24 11:51 Heparin Sod Inj 1000 Unit/Ml Vial 10 Ml INDWELLCAT 06/12/24 20:39 2,200 unit X1 PRN Administration DIALYSIS Norepinephrine/Dextrose 8 mg in 250 mls @ 7.05 mls/hr 06/06/24 04:07 06/09/24 11:00 Levophed In D5w 8mg/250ml IV 07/06/24 04:06 0 mcg/kg/min .Q24H PRN 0 mls/hr PER PROTOCOL Titration Protocol 0.05 MCG/KG/MIN Fluconazole 400 mg in 200 mls @ 100 mls/hr 06/06/24 07:30 06/10/24 10:31 Diflucan/Ns Ivpb IV 06/13/24 07:29 Infused QDAY JUAN JOSE Infusion Micafungin Sodium 100 mg/ 100 mls @ 100 mls/hr 06/09/24 09:00 06/10/24 10:21 Sodium Chloride IV 06/24/24 08:59 Infused QDAY JUAN JOSE Infusion Propofol 1,000 mg in 100 mls @ 2.256 mls/hr 06/09/24 14:26 06/11/24 07:00 Diprivan Ivpb IV 07/09/24 14:25 50 mcg/kg/min .Q24H PRN 22.56 mls/hr PER PROTOCOL Titration Protocol 5 MCG/KG/MIN Piperacillin/Tazobactam/Dextrose 50 mls @ 12.5 mls/hr 06/09/24 15:30 06/11/24 05:54 Zosyn IV 06/16/24 15:18 12.5 mls/hr Q8HR JUAN JOSE Administration Morphine Sulfate 100 mls @ 15 mls/hr 06/09/24 18:15 06/11/24 07:00 Morphine Sulfate Iv Drip 100mg/100ml IV 06/14/24 17:13 30 mg/hr .Q6H40M PRN 30 mls/hr SEDATION Titration Protocol 15 MG/HR Cisatracurium Besylate 200 mg/ 520 mls @ 11.731 mls/hr 06/10/24 14:29 06/11/24 07:00 Sodium Chloride IV 07/05/24 12:04 3 mcg/kg/min .Q24H PRN 35.194 mls/hr Per Protocol Titration Protocol 1 MCG/KG/MIN Midazolam HCl 100 mg in 100 mls @ 4 mls/hr 06/10/24 15:04 Versed Pf Inj In Ns Premix IV 06/15/24 15:03 .Q24H PRN PER PROTOCOL Protocol 4 MG/HR Methylprednisolone Sodium Succinate 40 mg 06/10/24 09:00 06/10/24 08:30 Methylprednisolone Sod Succ 40 Mg Vial IVP 06/17/24 08:59 40 mg QDAY JUAN JOSE Administration Ondansetron HCl 4 mg 05/29/24 21:51 06/04/24 17:44 Ondansetron Inj 2 Mg/Ml Inj 2 Ml IV 06/28/24 21:50 4 mg Q6HR PRN Administration NAUSEA OR VOMITING Protocol Pantoprazole Sodium 40 mg 06/06/24 09:00 06/10/24 08:30 Pantoprazole Inj 40 Mg Vial IVP 07/06/24 08:59 40 mg QDAY JUAN JOSE Administration Patiromer 8.4 gm 06/09/24 10:45 06/10/24 08:39 Patiromer Calcium 8.4 Gm Packet (Non-Form) NG 07/09/24 10:44 8.4 gm QDAY JUAN JOSE Administration Polyethylene Glycol 17 gm 06/11/24 08:08 Polyethylene Glycol 17 Gm Packet PO 06/11/24 08:09 X1 ONE Promethazine HCl/Dextromethorphan 5 ml 05/28/24 16:56 05/30/24 02:34 Promethazine/Dm Syrup 5 Ml Dose PO 06/27/24 16:55 5 ml Q4HR PRN Administration COUGH Protocol Quetiapine Fumarate 50 mg 06/10/24 21:00 06/10/24 21:10 Quetiapine Fumarate 25 Mg Tablet PO 07/10/24 20:59 50 mg HS JUAN JOSE Administration Quetiapine Fumarate 25 mg 06/11/24 09:00 Quetiapine Fumarate 25 Mg Tablet PO 07/11/24 08:59 QDAY JUAN JOSE Raltegravir 400 mg 06/09/24 09:00 06/10/24 21:11 Raltegravir 100 Mg Chew (Non-Form) NG 06/16/24 08:59 400 mg BID JUAN JOSE Administration Sennosides 1 tab 06/11/24 09:00 Senna Tablet PO 07/11/24 08:59 QDAY JUAN JOSE Protocol Trimethoprim/Sulfamethoxazole 40 ml 06/09/24 12:00 06/11/24 05:54 Trimethoprim 160 Mg/Sulfa 800 Mg Susp 20 Ml Udc PO 06/16/24 11:59 40 ml QID JUAN JOSE Administration Plan This is a 39-year-old gentleman with no known previous past medical history who initially presented to [facility] (Formerly [facility]) on 05/27/2024 with a chief complaint of shortness of breath and cough, and recent history of chills, body aches, generalized weakness, fever, and night sweats progressively worsening over the prior weeks, subsequently admitted for acute hypoxic respiratory failure secondary to bilateral community-acquired pneumonia. He has had multiple rapid response alerts during the course of hospitalization for increasing oxygen requirements and recurrent fevers. He was monitored in ICU from 05/30-05/31, now currently upgraded to ICU again 06/05 for intubation and bronchoscopy. NEURO Prior to intubation, patient is awake, alert, and oriented x3, following commands, conversational. #No active problem, sedated - Will try awakening trial today -Morphine drip, midazolam with a RASS goal of -4 - Will try to slowly downtitrate morphine today - Fentanyl was discontinued due to concern for tachyphylaxis. -Cisatracurium, train of four goal 2 out 4 twitches. CARDIO #Septic shock, resolved #Sinus tachycardia, resolved Most likely shock is due to sepsis [place] to bilateral pneumonia. Tachycardia most likely secondary to respiratory distress and agitation. BP mostly had been maintaining MAP >65, 06/09/24 in the morning, MAP went down to 59-60, he was started on levophed. -Continuous telemetry -Echo was read 06/06: EF 55-60% - repeated blood, urine culture were negative - ETT sputum cultures positive for GPC PULM #Acute hypoxic respiratory failure Secondary to #Bilateral pneumocystis jirovecii pneumonia #Healthcare associated pneumonia Patient presented with dyspnea and cough, requiring 4L NC on first ED evaluation, and history of chills, body aches, generalized weakness, fever, and night sweats progressively worsening over the prior weeks. Over hospitalization patient supplemental O2 requirements increased, requiring HiFlow by the second day. He has been treated empirically for community acquired pneumonia, but continues to have worsening respiratory status. Follow up CXRs continue to show worsening fluffy bilateral extensive infiltrates. Ddx: Infectious pneumonia bacterial vs fungal vs less likely viral, autoimmune causes, drug-induced causes. Negative studies: Cocci IgM and IgG, Hepatitis panel, Syphilis, Legionella, H.flu, N.meningitidis, Strep B, Strep pneumoniae, COVID, RSV, Flu A & B. Indeterminate: TB quantiferon GOLD Positive: Beta-(1,3)-D-Glucan 06/05/2024 Bronchoscopy completed today, which showed normal-appearing mucosa and no mucous plugging, hemorrhage, or friability bilaterally. Sandra stain of BAL showed PJP and other fungi, possibly Kassandra. Kassandra is most likely a contaminant. Fungal cultures are pending. Bronchoalveolar washings culture were negative for growth. Tx: -Continue Bactrim, fluconazole at half dose, Zosyn, and micafungin - Zosyn 05/30-present - Vancomycin -06/10/24. Discontinued by infectious disease due to the fact patient is receiving Bactrim - Micafungin 06/09/24-present - Fluconazole 05/28-present -Fungal culture pending -DuoNebs q4h as needed ?Ordered G6PD send out in case we switch the patient over to dapsone to protect from hemolytic side effects - ETT sputum cultures positive for GPC #ARDS Patient continues to have increased oxygen demands with worsening bilateral infiltrates on CXR. Will maintain ARDS ventilation protocol. Ddx: In setting of worsening pneumonia. In the morning 06/06, vent settings were: VT 410, RR35, FiO2 70 ABG 06/09/24: pH 7.31, pCO2 75, pO2 97. 06/08/24 P:F ratio 89/1=89. Severe ARDS. 06/09/24 P:F ratio 97/89=584. Moderate ARDS. 06/10/2024 P:F ratio 65/.65=406 06/11/24 P:F ratio 70/557=340 Tx: -Will try to downtitrate FiO2. Current FiO2 is 40% -Low tidal volume ventilation, will try to keep TV ~380 according to 6 mL/kg predicted body weight -Maintain peak plateau <30 -Permissive hypercapnia -Follow up ABG -Methylprednisolone 40 mg qday GI Prophylaxis: Pantoprazole 40 mg IV qday #Elevated LFTs, improving Likely due to propofol and bactrim. Mildly elevated, liver US 05/30/2024 showed normal gallbladder and hepatomegaly without lesions or evidence of obstructions. Hep panel negative. LFTs downtrended compared to 06/06/24. -Continue monitoring NEPHRO #WILL, improving #Hyperkalemia #Hyperphosphatemia #Hyponatremia, resolved #Non-anion gap respiratory acidosis Ddx: Prerenal WILL due to hypotension vs possible rhabdomyolysis vs drug toxicity (zosyn, vancomycin, bactrim) Unlikely rhabdomyolysis, CK was 511 06/06, did not uptrend. Urine output is >100 ml/hr, urine is yellow and clear. Possible underlying SIADH. Plan: -Monitor CMP, repeat potassium - V[place] - in case increasing hyperkalemia patient will need dialysis ?Morning potassium 06/11/24 4.4. - Will hold Lasix for now URO #No active problems -Tijerina placed 06/05/2024 HEME #Microcytic anemia Clinically no evidence of bleeding. Iron panel shows iron 17, TIBC 262, iron saturation 6, unsaturated iron binding 245. Peripheral blood film confirms microcytic hypochromic anemia with target cells. Patient hemoglobins stable, does not require transfusion at the moment, PT, INR, PTT within normal range. Plan: -Monitor H&H. Transfusing for Hgb <7 #Leukocytosis In the setting of likely infection and corticosteroids. Elevated WBC on 06/09/24 Plan: -Treatment of pneumonia as above #Thrombocytosis, resolved Likely reactive. -Continue to monitor ENDO #No active problems ID #Bilateral pneumocystis pneumonia Negative studies: Cocci IgM and IgG, Hepatitis panel, Syphilis, Legionella, H.flu, N.meningitidis, Strep B, Strep pneumoniae, COVID, RSV, Flu A & B. Indeterminate: TB quantiferon GOLD Positive: Beta-(1,3)-D-Glucan Silver stain of BA washings positive for Pneumocystis. HIV PCR positive. Patient completed 5 day course of azithromycin. Plan: -Continue Bactrim, fluconazole -ID following, appreciate reccomendations - Started HAART: truvada and raltegravir 06/09/24-present ? Tylenol as needed for fevers. MSK #No active problems SKIN #No active problems DVT prophylaxis: lovenox GI prophylaxis: Pantoprazole 40 mg IV qday Diet: tube feeds Nepro Tijerina: Present (06/05- ) Lines: Peripheral IV, Right radial arterial line. Antibiotics: Bactrim, fluconazole, Zosyn, micafungin CODE STATUS: FULL CODE Reason for ICU care: Acute hypoxic respiratory failure secondary to bilateral pneumonia/ARDS Plan of care discussed with attending Dr. Justin Pinzon MD PGY-1 Attending Provider Attestation/Addendum Patient seen and examined with above resident, Denise Pinzon MD. I agree with the findings, assessment, and plan of care as documented except for any differences below. Patient continues to do well with ability to discontinue running and now. Paralytics. Will plan to start weaning sedation appropriately on next 24 to 48 hours. Gas exchange remains limited with PF ratio still abnormal though improved. Patient remains on appropriate antibiotic/antifungal regimen for underlying etiology. Complete steroid course is appropriate for PJP pneumonia. He remains afebrile. Renal function continues to be stable with resolving hyperkalemia and improving urine output which we need to keep up with with IV fluids to avoid secondary injury from hypovolemia after ATN. Patient was started on HAART therapy. Continue on appropriate prophylaxis and tolerating tube feeds now. Patient's family updated on slow but continued progress in the right direction. Total critical care time: Personally spent 40 minutes for review of physiologic parameters, directed plan of care throughout the day, coordination of care with other specialties, and counseling patient's family at bedside. This is exclusive of time spent teaching housestaff or performing any separate billable procedures. 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 He continues to be at high risk for further morbidity and mortality.
[2024-06-11] MEDS: PROPOFOL 1,000 MG IVPB 1,000 MG/100 ML VIAL 20.304 MG IV (09:18)
[2024-06-11] MEDS: ENOXAPARIN SOD INJ 40 MG/0.4 ML SYRINGE SC (09:39)
[2024-06-11] MEDS: PANTOPRAZOLE INJ 40 MG VIAL IVP (09:39)
[2024-06-11] MEDS: [UNRECOGNIZED DRUG - REMARK] 400 MG NG ×2 (09:40→20:44)
[2024-06-11] MEDS: QUEtiapine FUMARATE 25 MG TABLET PO (09:40)
[2024-06-11] MEDS: SENNA TABLET 1 TAB PO (09:40)
[2024-06-11] MEDS: MICAFUNGIN SODIUM INJ 100 MG in SODIUM CHLORIDE 0.9% 100 ML IV (09:42)
[2024-06-11] MEDS: EMTRICITABINE 200 MG/TENOFOVIR 300 MG TAB (NON-FORM) 1 TAB PO (09:42)
[2024-06-11] MEDS: FLUCONAZOLE/NS 400 MG IVPB 400 MG/200 ML BAG 100 MG IV (09:43)
[2024-06-11] MEDS: PATIROMER CALCIUM 8.4 GM PACKET (NON-FORM) NG (09:45)
[2024-06-11] MEDS: POLYETHYLENE GLYCOL 17 GM PACKET PO (09:45)
[2024-06-11 11:35] LABS: Bilirubin,Total 0.3 mg/dL (0.3-1.2)
[2024-06-11] MEDS: Morphine IV Drip 100mg/100ml 100 ML 16 MG IV (13:32)
[2024-06-11] MEDS: PROPOFOL 1,000 MG IVPB 1,000 MG/100 ML VIAL 11.28 MG IV (17:38)
[2024-06-11] MEDS: Morphine IV Drip 100mg/100ml 100 ML 12 MG IV (20:04)
[2024-06-11] MEDS: QUEtiapine FUMARATE 25 MG TABLET 50 MG PO (20:45)
[2024-06-12] VITALS (32 sets, daily range): BP systolic 108–177; BP diastolic 55–78; PULSE 81–119; RESP 0–37; TEMP 36–36.9; O2SAT 91–99
[2024-06-12] MEDS: PROPOFOL 1,000 MG IVPB 1,000 MG/100 ML VIAL 18.048 MG IV ×2 (00:20→06:00)
[2024-06-12 04:42] LABS: Base Excess 21 (-3-3); HCO3 47 mEq/L (20-26); Inspired Oxygen, FIO2 40 %; O2 Saturation 95 % (91-98); PCO2 63 mmHg (32.0-48.0); PO2 76 mmHg (83-108); pH, Arterial 7.48 (7.35-7.45)
[2024-06-12 04:46] LABS: Puncture Site Arterial Line
[2024-06-12] MEDS: PIPER/TAZO 3.375 GM 50 ML IV ×3 (05:45→21:11)
[2024-06-12] MEDS: TRIMETHOPRIM 160 MG/SULFA 800 MG SUSP 20 ML UDC 40 ML PO ×4 (07:00→20:31)
[2024-06-12] MEDS: Morphine IV Drip 100mg/100ml 100 ML IV (07:10)
--- NOTE | 2024-06-12 07:17 | XR_ITS ---
Examination: AP chest single view Technique: AP portable semiupright chest single view Exam date and time: June 12, 2024 0739 hrs. Comparison June 11, 2024 Indications: Hypoxic respiratory failure, pneumonia ARDS on chest imaging this week Findings: Again noted extensive bilateral pneumonia ARDS pattern Endotracheal tube tip 4.9 cm above sunil Orogastric tube in the stomach No pneumothorax Impression: No significant change in extensive bilateral pneumonia ARDS pattern
--- NOTE | 2024-06-12 07:38 | PD.IDPROG ---
Subjective Subjective Interval history: continues on bactrim and steroids. on iv bactrim from about 06/01-06/08 and oral bactrim since 06/08-06/13 (today) K ok. so team has not changed primary rx. additional rx with micafungin and zosyn since noted. gpc not yet identified in sputum. bactrim is similar to vanco in efficacy for mrsa (was studied yrs ago when vanco was expensive and branded), Exam Vital Signs Temp Pulse Resp BP Pulse Ox O2 Del Method O2 Flow Rate 98.4 F 84 33 H 125/58 L 96 Mechanical Ventilation 40 06/12/24 04:00 06/12/24 07:11 06/12/24 07:11 06/12/24 07:07 06/12/24 07:11 06/11/24 10:00 06/09/24 12:16 FiO2 35 06/12/24 07:11 Narrative Exam on O2 on vent at 45%. up from 40%. Objective - Internal Medicine Labs 06/13/24 05:39 06/13/24 05:39 Labs: Laboratory Results - last 24 hr 06/11/24 06/12/24 05:26 04:15 Puncture Site Arterial Line ABG pH 7.48 H D ABG pCO2 63 H D ABG pO2 76 L ABG HCO3 47 H ABG O2 Saturation 95 ABG Base Excess 21 H FiO2 40 Total Bilirubin 0.3 ABG Interpretation ABG results: 05/27/24 05/29/24 05/29/24 23:37 10:44 22:08 ABG pH 7.51 H 7.50 H 7.48 H ABG pCO2 28 L 32 32 ABG pO2 75 L 79 L 145 H D ABG HCO3 23 25 24 ABG O2 Saturation 96 95 98 ABG Base Excess 0 2 1 05/30/24 05/31/24 06/04/24 08:45 04:54 02:10 ABG pH 7.47 H 7.45 7.45 ABG pCO2 35 38 36 ABG pO2 86 D 82 L 139 H ABG HCO3 26 26 25 ABG O2 Saturation 97 96 98 ABG Base Excess 2 2 1 06/04/24 06/05/24 06/05/24 18:16 11:36 12:59 ABG pH 7.44 7.11 L* D 7.20 L ABG pCO2 36 94 H* D 68 H D ABG pO2 80 L D 150 H D 121 H D ABG HCO3 24 30 H 26 ABG O2 Saturation 94 97 97 ABG Base Excess 0 -2 -3 06/05/24 06/06/24 06/06/24 19:25 04:13 15:27 ABG pH 7.22 L 7.27 L 7.30 L ABG pCO2 64 H 57 H 60 H ABG pO2 122 H 153 H D 74 L D ABG HCO3 26 26 29 H ABG O2 Saturation 97 99 H 92 ABG Base Excess -3 -2 2 06/07/24 06/07/24 06/08/24 03:55 09:59 04:20 ABG pH 7.41 D 7.43 7.45 ABG pCO2 56 H 55 H 50 H ABG pO2 293 H D 78 L D 75 L ABG HCO3 36 H 37 H 35 H ABG O2 Saturation 99 H 95 94 ABG Base Excess 10 H 11 H 10 H 06/08/24 06/08/24 06/08/24 11:05 11:50 13:18 ABG pH 7.17 L* D 7.10 L* 7.15 L* ABG pCO2 95 H* D 115 H* D 88 H* D ABG pO2 89 75 L 72 L ABG HCO3 34 H 36 H 31 H ABG O2 Saturation 92 84 L 85 L ABG Base Excess 3 4 H 0 06/08/24 06/09/24 06/09/24 17:02 01:33 03:15 ABG pH 7.18 L* 7.22 L 7.27 L ABG pCO2 50 H D 91 H* D 82 H* ABG pO2 82 L 105 D 86 ABG HCO3 19 L 37 H 38 H ABG O2 Saturation 93 97 95 ABG Base Excess -9 L 7 H 9 H 06/09/24 06/09/24 06/10/24 05:08 12:52 04:40 ABG pH 7.31 L 7.33 L 7.30 L ABG pCO2 75 H* 57 H D 78 H* D ABG pO2 97 158 H D 65 L D ABG HCO3 38 H 30 H 38 H ABG O2 Saturation 97 99 H 90 L ABG Base Excess 10 H 3 9 H 06/10/24 06/11/24 06/12/24 09:40 04:19 04:15 ABG pH 7.27 L 7.35 7.48 H D ABG pCO2 88 H* D 86 H* 63 H D ABG pO2 65 L 70 L 76 L ABG HCO3 40 H 48 H 47 H ABG O2 Saturation 89 L 93 95 ABG Base Excess 10 H 19 H 21 H Assessment & Plan A&P Narrative pneumonia. cocci neg. procal not neg. pjp on bal hiv. infection, newly discovered in a heterosexual man. can not r/o ivdu resp failure, hypoxic jo ann, resolved. acute febrile illness. cause uncertain. he has hiv, gf needs to be tested. ok to start rx with whatever the facility has available..I will see him again on Thursday. ok for bactrim and steroids for now. ok for zosyn and micafungin empirically, vanco is superfluous with ongoing bactrim, so will stop the vanco. if bc pos, please remove hd line if possible. crytpo ag pending too. ordered the other day, am not sure what happened to it. spoke with lab and test was apparently for csf and was changed to serum. as noted before, not every one survives, he is only 39, but is newly discovered to have a very bad disease that is easier to manage if caught earlier. Time Spent With Patient Time: Total time spent is greater than 50% in coordination of care (as documented) at patient's floor/unit and/or counseling patient:
[2024-06-12 08:13] LABS: Basophils % (Auto) 0 % (0-2.5); Eosinophils # (Auto) 0.2 Thou/mm3 (0.0-0.5); Eosinophils % (Auto) 2 % (0-10); Hematocrit 29.6 % (41.0-53.0); Hemoglobin 9.5 g/dL (13.5-16.0); Immature Granulocytes % (Auto) 1 % (0-0); Immature Granulocytes Auto 0.08 Thou/mm3 (0.00-0.00); Lymphocytes # (Auto) 0.5 Thou/mm3 (1.0-4.8); Lymphocytes % (Auto) 5 % (10-50); Mean Corpuscular HGB Conc 32.1 g/dl (31.0-37.0); Mean Corpuscular Hemoglobin 23.2 pg (25.0-35.0); Mean Corpuscular Volume 72 fL (80-100); Monocytes # (Auto) 0.3 Thou/mm3 (0.0-0.8); Monocytes % (Auto) 3 % (0-12); Neutrophils # (Auto) 9.2 Thou/mm3 (1.8-7.7); Neutrophils % (Auto) 90 % (37-80); Nucleated Red Blood Cell # 0.02 Thou/mm3 (0.00-0.00); Nucleated Red Blood Cell % 0 /100 WBC (0); Platelet Count 331 Thou/mm3 (140-440); RDW Standard Deviation 48.1 fL (35.1-43.9); Red Blood Count 4.09 Miln/mm3 (4.50-5.90); White Blood Count 10.2 Thou/mm3 (3.8-10.6)
[2024-06-12 08:27] LABS: Alanine Aminotransferase 228 U/L (10-49); Albumin, Serum 3.2 gm/dL (3.5-5.0); Alkaline Phosphatase 94 U/L (46-116); Anion Gap 4 (7-16); Aspartate Amino Transferase 63 U/L (0-34); BUN/Creatinine Ratio 26 Ratio (12-20); Bilirubin,Total 0.4 mg/dL (0.3-1.2); Blood Urea Nitrogen 21 mg/dL (9-23); Calcium (Corrected) 9.6 mg/dL (8.5-10.1); Carbon Dioxide > 40.0 mMol/L (20.0-31.0); Chloride 91 mMol/L (98-107); Creatinine (Component) 0.8 mg/dL (0.6-1.3); Globulin 3.2 gm/dL (2.3-3.5); Glucose 99 mg/dL (74-106); Osmolality,Calculated 273 (275-295); Potassium 4.6 mMol/L (3.4-5.1); Sodium 135 mMol/L (136-145); Total Protein 6.4 gm/dL (5.7-8.2); eGFR > 60 See Note
[2024-06-12] MEDS: FLUCONAZOLE/NS 400 MG IVPB 400 MG/200 ML BAG 100 MG IV (09:03)
[2024-06-12] MEDS: SENNA TABLET 1 TAB PO (09:03)
[2024-06-12] MEDS: ENOXAPARIN SOD INJ 40 MG/0.4 ML SYRINGE SC (09:03)
[2024-06-12] MEDS: QUEtiapine FUMARATE 25 MG TABLET PO (09:04)
[2024-06-12] MEDS: [UNRECOGNIZED DRUG - REMARK] 400 MG NG ×2 (09:04→20:30)
[2024-06-12] MEDS: PANTOPRAZOLE INJ 40 MG VIAL IVP (09:04)
[2024-06-12] MEDS: PATIROMER CALCIUM 8.4 GM PACKET (NON-FORM) NG (09:04)
[2024-06-12] MEDS: EMTRICITABINE 200 MG/TENOFOVIR 300 MG TAB (NON-FORM) 1 TAB PO (09:05)
[2024-06-12] MEDS: MICAFUNGIN SODIUM INJ 100 MG in SODIUM CHLORIDE 0.9% 100 ML IV (09:07)
[2024-06-12] MEDS: MIDAZOLAM INJ 1 MG/ML VIAL 2 ML 4 MG IV (11:27)
[2024-06-12] MEDS: PROPOFOL 1,000 MG IVPB 1,000 MG/100 ML VIAL 22.56 MG IV ×3 (14:20→23:05)
[2024-06-12] MEDS: MORPHINE SULF LIQD 10 MG/5 ML UDC 15 MG PO ×2 (17:43→21:10)
--- NOTE | 2024-06-12 18:09 | ESPR_ITS ---
<Statement entered by Jennifer Velasco MD - 06/13/24 07:26> Patient was seen and examined by me personally. I have directly supervised and reviewed the above documentation by the team resident and agree with its findings with any exceptions or additional findings as below. Plan of care was discussed with the attending, Dr. Anderson. Jennifer Velasco, PGY-2 Documentation for date of: 06/12/24 Subjective Subjective Interval history: 06/10/24: Patient is doing better today with ABG for this morning revealing a CO2 of 78 and a pH of 7.30. We are allowing for permissive hypercapnia and O2 65. Revealing PA/FiO2 ratio of 147. Overnight sedation was changed from fentanyl to morphine we will continue to titrate up morphine based on his hemodynamic stability. Patient became hypertensive and we suspect he requires more sedation so we will increase morphine. We will continue with paralytic use for 1 more day and discontinue tomorrow after 3 total days of paralytics. Patient's vancomycin was discontinued by infectious disease due to the fact that he remains on Bactrim. Dr Hope did suggest ordering a G6PD test to assess for G6PD deficiency in case we do switch to dapsone. Continuing with Bactrim, micafungin, and Zosyn. Transaminitis is continuing to improve and patient remains on Nepro with tube feeds at 40 cc an hour with low amounts of residuals. Last bowel movement was noted to be June 08 and he is receiving GI prophylaxis with Protonix. Hyperkalemia this morning appear to have been resolved with most recent potassium noted at 4.6. We will repeat another potassium at 2 PM to see if patient will require further hemodialysis but we will also initiate Lasix 40 mg IV push twice daily for diuresis in hopes that that will contribute to decreasing his hyperkalemia and help improve his potassium. Continues to remain anemic with iron deficiency anemia but hemoglobin is stable and is not a candidate for blood transfusion or iron repletion currently. 06/11/24:Patient was seen and examined by the bedside. No acute overnight events. No fevers overnight. Patient oxygen requirements decreased a little bit, his ABGs showed pH 7.35 slightly improved oxygenation. P:F ratio is 175. Chest Xray showed improvement compared to yesterday. Patient had a urine output of 5.3L, negative balance -4.4L. Cisatracurium is discontinued today, will try to slowly titrate down the sedation. Continues to receive bactrim, zosyn, micafungin. Repeat blood cultures, urine cultures are negative. ETT secretions grew GPC. ID is following patient. 06/12/24:Patient was seen and examined by the bedside. No acute overnight events. No fevers overnight. Patient had an awakening trial today due to his improvement in oxygenation. He was able to continue on spontaneous mode PS for a few hours, but due to agitation he was sedated again, but continued on spontaneous PS. ABGs showed pH 7.48, pCO2 63, pO2 78. PF ratio is 217. Will try awakening trial tomorrow again. Will keep his sedated throughout the night while on VC. Added oral morphine to decrease respiratory distress and sedation, will try to downtitrate propofol. Discontinued fluconazole. Exam Vital Signs Temp Pulse Resp BP Pulse Ox O2 Del Method O2 Flow Rate 96.9 F 89 33 H 115/64 94 L Mechanical Ventilation 40 06/12/24 16:00 06/12/24 17:00 06/12/24 07:11 06/12/24 17:00 06/12/24 17:00 06/12/24 12:00 06/09/24 12:16 FiO2 50 06/12/24 16:00 Narrative Exam Gen: Well-developed and well-nourished. Sedated. HEENT: NCAT, PERRLA, EOMI, MMM, anicteric conjunctivae. CVS: normal S1 and S2. RRR. No M/R/G. Resp: Bilateral diffuse rhonchi. Abd: soft, non-tender, non-distended. BS+ in all 4 quadrants. MSK: Good ROM in BUE & BLE. No rash. Mildly edematous left arm. Multiple tattoos present. Neuro: No gross focal neurological finding. Psych: Impossible to assess. Objective Labs 06/18/24 05:40 06/17/24 05:42 Labs: Laboratory Results - last 24 hr 06/12/24 06/12/24 04:15 07:50 WBC 10.2 RBC 4.09 L Hgb 9.5 L Hct 29.6 L MCV 72 L MCH 23.2 L MCHC 32.1 RDW Std Deviation 48.1 H Plt Count 331 D Neut % (Auto) 90 H Lymph % (Auto) 5 L [place] % (Auto) 3 Eos % (Auto) 2 Baso % (Auto) 0 Neut # (Auto) 9.2 H Lymph # (Auto) 0.5 L [place] # (Auto) 0.3 Eos # (Auto) 0.2 Baso # (Auto) 0.0 Immature Gran # (Auto) 0.08 H Absolute Nucleated RBC 0.02 H Immature Gran % 1 H Nucleated RBC % 0 Puncture Site Arterial Line ABG pH 7.48 H D ABG pCO2 63 H D ABG pO2 76 L ABG HCO3 47 H ABG O2 Saturation 95 ABG Base Excess 21 H FiO2 40 Sodium 135 L Potassium 4.6 Chloride 91 L Carbon Dioxide > 40.0 H Anion Gap 4 L BUN 21 Creatinine 0.8 Estim Creat Clear Calc 113.0 eGFR > 60 BUN/Creatinine Ratio 26 H Glucose 99 Calculated Osmolality 273 L Calcium 9.0 Corrected Calcium 9.6 Total Bilirubin 0.4 AST 63 H ALT 228 H Alkaline Phosphatase 94 Total Protein 6.4 Albumin 3.2 L Globulin 3.2 Albumin/Globulin Ratio 1.0 L ABG Interpretation ABG results: 05/27/24 05/29/24 05/29/24 23:37 10:44 22:08 ABG pH 7.51 H 7.50 H 7.48 H ABG pCO2 28 L 32 32 ABG pO2 75 L 79 L 145 H D ABG HCO3 23 25 24 ABG O2 Saturation 96 95 98 ABG Base Excess 0 2 1 05/30/24 05/31/24 06/04/24 08:45 04:54 02:10 ABG pH 7.47 H 7.45 7.45 ABG pCO2 35 38 36 ABG pO2 86 D 82 L 139 H ABG HCO3 26 26 25 ABG O2 Saturation 97 96 98 ABG Base Excess 2 2 1 06/04/24 06/05/24 06/05/24 18:16 11:36 12:59 ABG pH 7.44 7.11 L* D 7.20 L ABG pCO2 36 94 H* D 68 H D ABG pO2 80 L D 150 H D 121 H D ABG HCO3 24 30 H 26 ABG O2 Saturation 94 97 97 ABG Base Excess 0 -2 -3 06/05/24 06/06/24 06/06/24 19:25 04:13 15:27 ABG pH 7.22 L 7.27 L 7.30 L ABG pCO2 64 H 57 H 60 H ABG pO2 122 H 153 H D 74 L D ABG HCO3 26 26 29 H ABG O2 Saturation 97 99 H 92 ABG Base Excess -3 -2 2 06/07/24 06/07/24 06/08/24 03:55 09:59 04:20 ABG pH 7.41 D 7.43 7.45 ABG pCO2 56 H 55 H 50 H ABG pO2 293 H D 78 L D 75 L ABG HCO3 36 H 37 H 35 H ABG O2 Saturation 99 H 95 94 ABG Base Excess 10 H 11 H 10 H 06/08/24 06/08/24 06/08/24 11:05 11:50 13:18 ABG pH 7.17 L* D 7.10 L* 7.15 L* ABG pCO2 95 H* D 115 H* D 88 H* D ABG pO2 89 75 L 72 L ABG HCO3 34 H 36 H 31 H ABG O2 Saturation 92 84 L 85 L ABG Base Excess 3 4 H 0 06/08/24 06/09/24 06/09/24 17:02 01:33 03:15 ABG pH 7.18 L* 7.22 L 7.27 L ABG pCO2 50 H D 91 H* D 82 H* ABG pO2 82 L 105 D 86 ABG HCO3 19 L 37 H 38 H ABG O2 Saturation 93 97 95 ABG Base Excess -9 L 7 H 9 H 06/09/24 06/09/24 06/10/24 05:08 12:52 04:40 ABG pH 7.31 L 7.33 L 7.30 L ABG pCO2 75 H* 57 H D 78 H* D ABG pO2 97 158 H D 65 L D ABG HCO3 38 H 30 H 38 H ABG O2 Saturation 97 99 H 90 L ABG Base Excess 10 H 3 9 H 06/10/24 06/11/24 06/12/24 09:40 04:19 04:15 ABG pH 7.27 L 7.35 7.48 H D ABG pCO2 88 H* D 86 H* 63 H D ABG pO2 65 L 70 L 76 L ABG HCO3 40 H 48 H 47 H ABG O2 Saturation 89 L 93 95 ABG Base Excess 10 H 19 H 21 H Quality Measures Quality Measures sepsis Current suspected stage: sepsis Possible source: pulmonary, GI tract/intra-abdominal, genitourinary and skin/soft tissue Blood cultures ordered: yes Antibiotic ordered: Yes Assessment & Plan Assessment Current Active Medications: Generic Name Dose Route Start Last Admin Trade Name Freq PRN Reason Stop Dose Admin Acetaminophen 975 mg 06/09/24 14:27 06/10/24 08:32 Acetaminophen Munira 325 Mg/10 Ml Udc PO 06/26/24 12:10 975 mg Q6H PRN Administration Pain 1-3 and Fever >101.5 Albuterol/Ipratropium 3 ml 06/05/24 11:40 06/09/24 22:18 Albuterol/Ipratropium (Duoneb) Rt Munira 3 Ml Nebu INH 07/05/24 14:59 3 ml Q4HRRT PRN Administration Wheezing Calcium Carbonate 600 mg 06/06/24 09:00 06/08/24 08:40 Calcium Carbonate 600 Mg Tablet NG 07/06/24 08:59 600 mg QDAY JUAN JOSE Administration Chlorpromazine HCl 25 mg 06/04/24 14:15 06/05/24 05:16 Chlorpromazine 25 Mg Tablet PO 07/04/24 14:14 25 mg TID JUAN JOSE Administration Dextrose 25 ml 06/06/24 08:20 Dextrose 50%-Water Inj 50 Ml Syringe IV 07/06/24 08:19 Q15MIN PRN BG 50-70 responsive npo pt Dextrose 50 ml 06/06/24 08:20 Dextrose 50%-Water Inj 50 Ml Syringe IV 07/06/24 08:19 Q15MIN PRN BG <50 OR BG <70 & pt unresponsive Emtricitabine/Tenofovir 1 tab 06/09/24 09:00 06/12/24 09:05 Emtricitabine 200 Mg/Tenofovir 300 Mg Tab (Non-Form) PO 06/16/24 08:59 1 tab QDAY JUAN JOSE Administration Enoxaparin Sodium 40 mg 06/07/24 09:00 06/12/24 09:03 Enoxaparin Sod Inj 40 Mg/0.4 Ml Syringe SC 06/21/24 08:59 40 mg QDAY JUAN JOSE Administration Glucagon 1 mg 06/06/24 08:20 Glucagon Inj 1 Mg Vial IM Q15MIN PRN BG <70, and no IV access Heparin Sodium (Porcine) 2,200 unit 06/06/24 20:40 11/21/24 11:51 Heparin Sod Inj 1000 Unit/Ml Vial 10 Ml INDWELLCAT 06/12/24 20:39 2,200 unit X1 PRN Administration DIALYSIS Norepinephrine/Dextrose 8 mg in 250 mls @ 7.05 mls/hr 06/06/24 04:07 06/09/24 11:00 Levophed In D5w 8mg/250ml IV 07/06/24 04:06 0 mcg/kg/min .Q24H PRN 0 mls/hr PER PROTOCOL Titration Protocol 0.05 MCG/KG/MIN Micafungin Sodium 100 mg/ 100 mls @ 100 mls/hr 06/09/24 09:00 06/12/24 09:07 Sodium Chloride IV 06/24/24 08:59 100 mls/hr QDAY JUAN JOSE Administration Propofol 1,000 mg in 100 mls @ 2.256 mls/hr 06/09/24 14:26 06/12/24 14:20 Diprivan Ivpb IV 07/09/24 14:25 50 mcg/kg/min .Q24H PRN 22.56 mls/hr PER PROTOCOL Administration Protocol 5 MCG/KG/MIN Piperacillin/Tazobactam/Dextrose 50 mls @ 12.5 mls/hr 06/09/24 15:30 06/12/24 14:15 Zosyn IV 06/16/24 15:18 12.5 mls/hr Q8HR JUAN JOSE Administration Morphine Sulfate 100 mls @ 15 mls/hr 06/09/24 18:15 06/12/24 15:00 Morphine Sulfate Iv Drip 100mg/100ml IV 06/14/24 17:13 10 mg/hr .Q6H40M PRN 10 mls/hr SEDATION Titration Protocol 15 MG/HR Cisatracurium Besylate 200 mg/ 520 mls @ 11.731 mls/hr 06/10/24 14:29 06/11/24 08:30 Sodium Chloride IV 07/05/24 12:04 0 mcg/kg/min .Q24H PRN 0 mls/hr Per Protocol Titration Protocol 1 MCG/KG/MIN Midazolam HCl 100 mg in 100 mls @ 4 mls/hr 06/10/24 15:04 Versed Pf Inj In Ns Premix IV 06/15/24 15:03 .Q24H PRN PER PROTOCOL Protocol 4 MG/HR Methylprednisolone Sodium Succinate 40 mg 06/10/24 09:00 06/12/24 09:04 Methylprednisolone Sod Succ 40 Mg Vial IVP 06/17/24 08:59 40 mg QDAY JUAN JOSE Administration Morphine Sulfate 15 mg 06/12/24 16:15 06/12/24 17:43 Morphine Sulf Liqd 10 Mg/5 Ml Udc PO 06/17/24 16:14 15 mg Q8HR JUAN JOSE Administration Ondansetron HCl 4 mg 05/29/24 21:51 06/04/24 17:44 Ondansetron Inj 2 Mg/Ml Inj 2 Ml IV 06/28/24 21:50 4 mg Q6HR PRN Administration NAUSEA OR VOMITING Protocol Pantoprazole Sodium 40 mg 06/06/24 09:00 06/12/24 09:04 Pantoprazole Inj 40 Mg Vial IVP 07/06/24 08:59 40 mg QDAY JUAN JOSE Administration Patiromer 8.4 gm 06/09/24 10:45 06/12/24 09:04 Patiromer Calcium 8.4 Gm Packet (Non-Form) NG 07/09/24 10:44 8.4 gm QDAY JUAN JOSE Administration Polyethylene Glycol 17 gm 06/11/24 08:17 Polyethylene Glycol 17 Gm Packet PO 07/11/24 08:59 QDAY PRN CONSTIPATION Protocol Promethazine HCl/Dextromethorphan 5 ml 05/28/24 16:56 05/30/24 02:34 Promethazine/Dm Syrup 5 Ml Dose PO 06/27/24 16:55 5 ml Q4HR PRN Administration COUGH Protocol Quetiapine Fumarate 50 mg 06/10/24 21:00 06/11/24 20:45 Quetiapine Fumarate 25 Mg Tablet PO 07/10/24 20:59 50 mg HS JUAN JOSE Administration Quetiapine Fumarate 25 mg 06/11/24 09:00 06/12/24 09:04 Quetiapine Fumarate 25 Mg Tablet PO 07/11/24 08:59 25 mg QDAY JUAN JOSE Administration Raltegravir 400 mg 06/09/24 09:00 06/12/24 09:04 Raltegravir 100 Mg Chew (Non-Form) NG 06/16/24 08:59 400 mg BID JUAN JOSE Administration Sennosides 1 tab 06/11/24 09:00 06/12/24 09:03 Senna Tablet PO 07/11/24 08:59 1 tab QDAY JUAN JOSE Administration Protocol Trimethoprim/Sulfamethoxazole 40 ml 06/09/24 12:00 06/12/24 17:00 Trimethoprim 160 Mg/Sulfa 800 Mg Susp 20 Ml Udc PO 06/16/24 11:59 40 ml QID JUAN JOSE Administration Plan This is a 39-year-old gentleman with no known previous past medical history who initially presented to [facility] on 05/27/2024 with a chief complaint of shortness of breath and cough, and recent history of chills, body aches, generalized weakness, fever, and night sweats progressively worsening over the prior weeks, subsequently admitted for acute hypoxic respiratory failure secondary to bilateral community-acquired pneumonia. He has had multiple rapid response alerts during the course of hospitalization for increasing oxygen requirements and recurrent fevers. He was monitored in ICU from 05/30-05/31, now currently upgraded to ICU again 06/05 for intubation and bronchoscopy. NEURO Prior to intubation, patient is awake, alert, and oriented x3, following commands, conversational. #No active problem, sedated -Morphine drip with a RASS goal of -4 ?Added oral morphine 15 mg 3 times daily - Will try to slowly downtitrate propofol today - Fentanyl was discontinued due to concern for tachyphylaxis. ?Midazolam discontinued today -Cisatracurium was discontinued 06/11 CARDIO #Septic shock, resolved #Sinus tachycardia, resolved Most likely shock is due to sepsis land[place] to bilateral pneumonia. Tachycardia most likely secondary to respiratory distress and agitation. BP mostly had been maintaining MAP >65, 06/09/24 in the morning, MAP went down to 59-60, he was started on levophed. -Continuous telemetry -Echo was read 06/06: EF 55-60% - repeated blood, urine culture were negative - ETT sputum cultures positive for GPC PULM #Acute hypoxic respiratory failure Secondary to #Bilateral pneumocystis jirovecii pneumonia #Healthcare associated pneumonia Patient presented with dyspnea and cough, requiring 4L NC on first ED evaluation, and history of chills, body aches, generalized weakness, fever, and night sweats progressively worsening over the prior weeks. Over hospitalization patient supplemental O2 requirements increased, requiring HiFlow by the second day. He has been treated empirically for community acquired pneumonia, but continues to have worsening respiratory status. Follow up CXRs continue to show worsening fluffy bilateral extensive infiltrates. Ddx: Infectious pneumonia bacterial vs fungal vs less likely viral, autoimmune causes, drug-induced causes. Negative studies: Cocci IgM and IgG, Hepatitis panel, Syphilis, Legionella, H.flu, N.meningitidis, Strep B, Strep pneumoniae, COVID, RSV, Flu A & B. Indeterminate: TB quantiferon GOLD Positive: Beta-(1,3)-D-Glucan 06/05/2024 Bronchoscopy completed today, which showed normal-appearing mucosa and no mucous plugging, hemorrhage, or friability bilaterally. Sandra stain of BAL showed PJP and other fungi, possibly Kassandra. Kassandra is most likely a contaminant. Fungal cultures are pending. Bronchoalveolar washings culture were negative for growth. Tx: -Continue Bactrim, Zosyn, and micafungin - Zosyn 05/30-present - Vancomycin -06/10/24. Discontinued by infectious disease due to the fact patient is receiving Bactrim - Micafungin 06/09/24-present -Discontinued fluconazole 05/28-06/12 -Fungal culture pending -DuoNebs q4h as needed ?Ordered G6PD send out in case we switch the patient over to dapsone to protect from hemolytic side effects - ETT sputum cultures positive for GPC #ARDS Patient continues to have increased oxygen demands with worsening bilateral infiltrates on CXR. Will maintain ARDS ventilation protocol. Ddx: In setting of worsening pneumonia. In the morning 06/06, vent settings were: VT 410, RR35, FiO2 70 ABG 06/09/24: pH 7.31, pCO2 75, pO2 97. 06/08/24 P:F ratio 89/1=89. Severe ARDS. 06/09/24 P:F ratio 97/39=335. Moderate ARDS. 06/10/2024 P:F ratio 65/.15=435 06/11/24 P:F ratio 70/657=443 06/12/24 P: F ratio 217 Tx: -Will try to downtitrate FiO2. Current FiO2 is 40%. Earlier in the day was 35%. -Low tidal volume ventilation, will try to keep TV ~380 according to 6 mL/kg predicted body weight -Maintain peak plateau <30 -Permissive hypercapnia -Follow up ABG -Methylprednisolone 40 mg qday GI Prophylaxis: Pantoprazole 40 mg IV qday #Elevated LFTs, improving Likely due to propofol and bactrim. Mildly elevated, liver US 05/30/2024 showed normal gallbladder and hepatomegaly without lesions or evidence of obstructions. Hep panel negative. LFTs downtrended compared to 06/06/24. -Continue monitoring NEPHRO #WILL, improving #Hyperkalemia, resolved #Hyperphosphatemia #Hyponatremia, resolved #Non-anion gap respiratory acidosis with metabolic alkalosis Ddx: Prerenal WILL due to hypotension vs possible rhabdomyolysis vs drug toxicity (zosyn, vancomycin, bactrim) Unlikely rhabdomyolysis, CK was 511 06/06, did not uptrend. Urine output is >100 ml/hr, urine is yellow and clear. Possible underlying SIADH. Plan: -Monitor CMP, repeat potassium - [place] - in case increasing hyperkalemia patient will need dialysis ?Morning potassium 06/11/24 4.4. - Free water at 150 ml/hr URO #No active problems -Tijerina placed 06/05/2024 HEME #Microcytic anemia Clinically no evidence of bleeding. Iron panel shows iron 17, TIBC 262, iron saturation 6, unsaturated iron binding 245. Peripheral blood film confirms microcytic hypochromic anemia with target cells. Patient hemoglobins stable, does not require transfusion at the moment, PT, INR, PTT within normal range. Also daily lab draws contributing. Plan: -Monitor H&H. Transfusing for Hgb <7 #Leukocytosis, resolved In the setting of likely infection and corticosteroids. Elevated WBC on 06/09/24 Plan: -Treatment of pneumonia as above #Thrombocytosis, resolved Likely reactive. -Continue to monitor ENDO #No active problems ID #Bilateral pneumocystis pneumonia #Healthcare associated pneumonia Negative studies: Cocci IgM and IgG, Hepatitis panel, Syphilis, Legionella, H.flu, N.meningitidis, Strep B, Strep pneumoniae, COVID, RSV, Flu A & B. Indeterminate: TB quantiferon GOLD Positive: Beta-(1,3)-D-Glucan Silver stain of BA washings positive for Pneumocystis. HIV PCR positive. Patient completed 5 day course of azithromycin. Plan: -Continue Bactrim - continue Zosyn -ID following, appreciate reccomendations - HAART: truvada and raltegravir 06/09/24-present ? Tylenol as needed for fevers. MSK #No active problems SKIN #No active problems DVT prophylaxis: lovenox GI prophylaxis: Pantoprazole 40 mg IV qday Diet: tube feeds Nepro Tijerina: Present (06/05- ) Lines: Peripheral IV, Right radial arterial line. Antibiotics: Bactrim, Zosyn, micafungin CODE STATUS: FULL CODE Reason for ICU care: Acute hypoxic respiratory failure secondary to bilateral pneumonia/ARDS Plan of care discussed with attending Dr. Justin Pinzon PGY-1 Attending Provider Attestation/Addendum Patient seen and examined with the above resident, Denise Pinzon MD. I agree with the findings, assessment, and plan of care as documented except for any differences below. Patient is cascade continues to improve after trial of proning and paralytics. Patient underwent spontaneous awake trial with significant agitation though he is able to tolerate SBT. Patient's family updated at bedside and reassured with continued progressive improvement though slow. I did already explain the role for aggressive weaning and if inability to, potential need for tracheostomy given how ill he was. Patient started on antiretroviral therapy and potential for IRIS as well. Ventilator associated pneumonia also being treated with Zosyn at this point. Acute renal failure continues to improve with adequate output, will continue to try to diurese to get net negative fluid balance to ensure continued improvement in gas exchange. Patient tolerating tube feeds with Nepro. Remains on appropriate prophylaxis including Lovenox. Receiving appropriate free water flushes as well with tube feeds to ensure stable electrolytes specifically sodium. Total critical care time: I personally spent 40 minutes for review of physiologic parameters, directing plan of care throughout the day, coordination of care with other specialties, and counseling patient's family at bedside. This is exclusive of time spent teaching housestaff or performing any separate billable procedures. Patient continues to require critical care services for acute hypoxic respiratory failure secondary to PJP pneumonia with superimposed ventilator associated pneumonia. 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
[2024-06-12] MEDS: Morphine IV Drip 100mg/100ml 100 ML 10 MG IV (19:29)
[2024-06-12] MEDS: QUEtiapine FUMARATE 25 MG TABLET 50 MG PO (20:30)
--- NOTE | 2024-06-12 21:01 | PC.RT ---
Attempted to push pt back on previous AC/VC settings and pt immedicately went into respiratory distress, desat and HR went davy. Put pt back on PSV mode and pt immediatedly relaxed and improved. Dr. Awan made aware. Awaiting new orders
[2024-06-12] MEDS: MIDAZOLAM INJ 1 MG/ML VIAL 2 ML 2 MG IV ×2 (21:22→23:18)
[2024-06-12] MEDS: POLYETHYLENE GLYCOL 17 GM PACKET PO (23:17)
[2024-06-13] VITALS (30 sets, daily range): BP systolic 103–201; BP diastolic 53–100; PULSE 81–104; RESP 15–41; TEMP 36.5–37.7; O2SAT 90–99; BMI 26.0
[2024-06-13] MEDS: MIDAZOLAM INJ 1 MG/ML VIAL 2 ML 2 MG IV ×4 (01:16→14:07)
[2024-06-13] MEDS: PROPOFOL 1,000 MG IVPB 1,000 MG/100 ML VIAL 22.56 MG IV ×2 (03:19→08:47)
--- NOTE | 2024-06-13 05:00 | XR_ITS ---
Examination: AP chest single view Technique one AP portable semiupright chest single view Exam date and time: June 13, 2024 0422 hours Comparison June 12, 2024 0739 hours INDICATIONS: Pneumonia hypoxic respiratory failure this week. FINDINGS: No improvement in significant bilateral pneumonia ARDS pattern Tracheal tube tip 7.5 cm above sunil Orogastric tube in stomach IMPRESSION: No significant change in pneumonia ARDS pattern
[2024-06-13] MEDS: PIPER/TAZO 3.375 GM 50 ML IV ×3 (05:11→21:30)
[2024-06-13] MEDS: Morphine IV Drip 100mg/100ml 100 ML 10 MG IV ×2 (05:30→17:51)
[2024-06-13] MEDS: MORPHINE SULF LIQD 10 MG/5 ML UDC 15 MG PO ×3 (05:33→21:28)
[2024-06-13 06:09] LABS: Basophils % (Auto) 0 % (0-2.5); Eosinophils # (Auto) 0.2 Thou/mm3 (0.0-0.5); Eosinophils % (Auto) 1 % (0-10); Hematocrit 29.4 % (41.0-53.0); Hemoglobin 9.6 g/dL (13.5-16.0); Immature Granulocytes % (Auto) 1 % (0-0); Immature Granulocytes Auto 0.15 Thou/mm3 (0.00-0.00); Lymphocytes # (Auto) 0.6 Thou/mm3 (1.0-4.8); Lymphocytes % (Auto) 4 % (10-50); Mean Corpuscular HGB Conc 32.7 g/dl (31.0-37.0); Mean Corpuscular Hemoglobin 23.5 pg (25.0-35.0); Mean Corpuscular Volume 72 fL (80-100); Monocytes # (Auto) 0.4 Thou/mm3 (0.0-0.8); Monocytes % (Auto) 2 % (0-12); Neutrophils # (Auto) 13.2 Thou/mm3 (1.8-7.7); Neutrophils % (Auto) 92 % (37-80); Nucleated Red Blood Cell # 0.07 Thou/mm3 (0.00-0.00); Nucleated Red Blood Cell % 1 /100 WBC (0); Platelet Count 335 Thou/mm3 (140-440); RDW Standard Deviation 47.1 fL (35.1-43.9); Red Blood Count 4.09 Miln/mm3 (4.50-5.90); White Blood Count 14.4 Thou/mm3 (3.8-10.6)
[2024-06-13 06:33] LABS: Alanine Aminotransferase 203 U/L (10-49); Albumin, Serum 3.2 gm/dL (3.5-5.0); Alkaline Phosphatase 98 U/L (46-116); Anion Gap 4 (7-16); Aspartate Amino Transferase 78 U/L (0-34); BUN/Creatinine Ratio 24 Ratio (12-20); Bilirubin,Total 0.5 mg/dL (0.3-1.2); Blood Urea Nitrogen 19 mg/dL (9-23); Calcium 9.2 mg/dL (8.3-10.6); Calcium (Corrected) 9.8 mg/dL (8.5-10.1); Carbon Dioxide 35.2 mMol/L (20.0-31.0); Chloride 93 mMol/L (98-107); Creatinine (Component) 0.8 mg/dL (0.6-1.3); Globulin 3.1 gm/dL (2.3-3.5); Glucose 99 mg/dL (74-106); Osmolality,Calculated 266 (275-295); Potassium 4.7 mMol/L (3.4-5.1); Sodium 132 mMol/L (136-145); Total Protein 6.3 gm/dL (5.7-8.2); eGFR > 60 See Note
[2024-06-13] MEDS: TRIMETHOPRIM 160 MG/SULFA 800 MG SUSP 20 ML UDC 40 ML PO ×4 (07:15→20:25)
[2024-06-13 07:30] LABS: Base Excess 13 (-3-3); HCO3 39 mEq/L (20-26); Inspired Oxygen, FIO2 50 %; O2 Saturation 95 % (91-98); PCO2 56 mmHg (32.0-48.0); PO2 80 mmHg (83-108); pH, Arterial 7.46 (7.35-7.45)
[2024-06-13 07:32] LABS: Allen Test Not Performed; Puncture Site Arterial Line
[2024-06-13] MEDS: DEXMEDETOMIDINE 400 MCG IVPB 400 MCG/100 ML BAG IV (08:02)
[2024-06-13] MEDS: SENNA TABLET 1 TAB PO (08:37)
[2024-06-13] MEDS: ENOXAPARIN SOD INJ 40 MG/0.4 ML SYRINGE SC (08:38)
[2024-06-13] MEDS: PANTOPRAZOLE INJ 40 MG VIAL IVP (08:38)
[2024-06-13] MEDS: QUEtiapine FUMARATE 25 MG TABLET PO ×2 (08:38→20:30)
[2024-06-13] MEDS: [UNRECOGNIZED DRUG - REMARK] 400 MG NG ×2 (08:39→20:25)
[2024-06-13] MEDS: PATIROMER CALCIUM 8.4 GM PACKET (NON-FORM) NG (08:39)
[2024-06-13] MEDS: MICAFUNGIN SODIUM INJ 100 MG in SODIUM CHLORIDE 0.9% 100 ML IV (08:39)
[2024-06-13] MEDS: EMTRICITABINE 200 MG/TENOFOVIR 300 MG TAB (NON-FORM) 1 TAB PO (08:40)
--- NOTE | 2024-06-13 09:18 | ESPR_ITS ---
<Statement entered by Jennifer Velasco MD - 06/14/24 06:52> Patient was seen and examined by me personally. I have directly supervised and reviewed the above documentation by the team resident and agree with its findings with any exceptions or additional findings as below. Plan of care was discussed with the attending, Dr. Anderson. Jennifer Velasco, PGY-2 Documentation for date of: 06/13/24 Subjective Subjective Interval history: 06/10/24: Patient is doing better today with ABG for this morning revealing a CO2 of 78 and a pH of 7.30. We are allowing for permissive hypercapnia and O2 65. Revealing PA/FiO2 ratio of 147. Overnight sedation was changed from fentanyl to morphine we will continue to titrate up morphine based on his hemodynamic stability. Patient became hypertensive and we suspect he requires more sedation so we will increase morphine. We will continue with paralytic use for 1 more day and discontinue tomorrow after 3 total days of paralytics. Patient's vancomycin was discontinued by infectious disease due to the fact that he remains on Bactrim. Dr Hope did suggest ordering a G6PD test to assess for G6PD deficiency in case we do switch to dapsone. Continuing with Bactrim, micafungin, and Zosyn. Transaminitis is continuing to improve and patient remains on Nepro with tube feeds at 40 cc an hour with low amounts of residuals. Last bowel movement was noted to be June 08 and he is receiving GI prophylaxis with Protonix. Hyperkalemia this morning appear to have been resolved with most recent potassium noted at 4.6. We will repeat another potassium at 2 PM to see if patient will require further hemodialysis but we will also initiate Lasix 40 mg IV push twice daily for diuresis in hopes that that will contribute to decreasing his hyperkalemia and help improve his potassium. Continues to remain anemic with iron deficiency anemia but hemoglobin is stable and is not a candidate for blood transfusion or iron repletion currently. 06/11/24:Patient was seen and examined by the bedside. No acute overnight events. No fevers overnight. Patient oxygen requirements decreased a little bit, his ABGs showed pH 7.35 slightly improved oxygenation. P:F ratio is 175. Chest Xray showed improvement compared to yesterday. Patient had a urine output of 5.3L, negative balance -4.4L. Cisatracurium is discontinued today, will try to slowly titrate down the sedation. Continues to receive bactrim, zosyn, micafungin. Repeat blood cultures, urine cultures are negative. ETT secretions grew GPC. ID is following patient. 06/12/24:Patient was seen and examined by the bedside. No acute overnight events. No fevers overnight. Patient had an awakening trial today due to his improvement in oxygenation. He was able to continue on spontaneous mode PS for a few hours, but due to agitation he was sedated again, but continued on spontaneous PS. ABGs showed pH 7.48, pCO2 63, pO2 78. PF ratio is 217. Will try awakening trial tomorrow again. Will keep his sedated throughout the night while on AC. Added oral morphine to decrease respiratory distress and sedation, will try to downtitrate propofol. Discontinued fluconazole. 06/13/24: Patient was seen and examined by the bedside. No fevers overnight. Saturates well on FiO2 of 50. Overnight patient was double stacking, pulling hide tidal volume on volume control, received midazolam 2 mg pushes for sedation, was also started on Precedex drip. Will try awakening trial today. Continues to be on morphine drip and oral morphine. In the morning was switched to PS 8, PEEP 10, FiO2 50. Will continue Bactrim and micafungin, length of course 21 days. Continue Zosyn for HAP. Sedation was turned off for awakening trial, patient was able to breath spontaneously, but did not follow commands. He became agitated, was inhaling high VT, BP went up to 180/88, was sedated again. Will switch him back to VC mode overnight. Family was advised to spend time with him. Exam Vital Signs Temp Pulse Resp BP Pulse Ox O2 Del Method O2 Flow Rate 97.7 F 87 35 H 119/66 94 L Mechanical Ventilation 40 06/13/24 07:00 06/13/24 07:00 06/13/24 06:41 06/13/24 07:00 06/13/24 07:00 06/13/24 07:00 06/09/24 12:16 FiO2 50 06/13/24 07:00 Narrative Exam Gen: Well-developed and well-nourished. Sedated. HEENT: NCAT, PERRLA, EOMI, MMM, anicteric conjunctivae. CVS: normal S1 and S2. RRR. No M/R/G. Resp: Bilateral diffuse rhonchi. Abd: soft, non-tender, non-distended. BS+ in all 4 quadrants. MSK: Good ROM in BUE & BLE. No rash. Mildly edematous left arm. Multiple tattoos present. Neuro: No gross focal neurological finding. Psych: Impossible to assess. Objective Labs 06/17/24 05:42 06/17/24 05:42 Labs: Laboratory Results - last 24 hr 06/13/24 06/13/24 05:39 07:22 WBC 14.4 H D RBC 4.09 L Hgb 9.6 L Hct 29.4 L MCV 72 L MCH 23.5 L MCHC 32.7 RDW Std Deviation 47.1 H Plt Count 335 Neut % (Auto) 92 H Lymph % (Auto) 4 L Finney % (Auto) 2 Eos % (Auto) 1 Baso % (Auto) 0 Neut # (Auto) 13.2 H Lymph # (Auto) 0.6 L Finney # (Auto) 0.4 Eos # (Auto) 0.2 Baso # (Auto) 0.0 Immature Gran # (Auto) 0.15 H Absolute Nucleated RBC 0.07 H Immature Gran % 1 H Nucleated RBC % 1 H Puncture Site Arterial Line ABG pH 7.46 H ABG pCO2 56 H ABG pO2 80 L ABG HCO3 39 H ABG O2 Saturation 95 ABG Base Excess 13 H FiO2 50 Sodium 132 L Potassium 4.7 Chloride 93 L Carbon Dioxide 35.2 H Anion Gap 4 L BUN 19 Creatinine 0.8 Estim Creat Clear Calc 113.0 eGFR > 60 BUN/Creatinine Ratio 24 H Glucose 99 Calculated Osmolality 266 L Calcium 9.2 Corrected Calcium 9.8 Total Bilirubin 0.5 AST 78 H ALT 203 H Alkaline Phosphatase 98 Total Protein 6.3 Albumin 3.2 L Globulin 3.1 Albumin/Globulin Ratio 1.0 L ABG Interpretation ABG results: 05/27/24 05/29/24 05/29/24 23:37 10:44 22:08 ABG pH 7.51 H 7.50 H 7.48 H ABG pCO2 28 L 32 32 ABG pO2 75 L 79 L 145 H D ABG HCO3 23 25 24 ABG O2 Saturation 96 95 98 ABG Base Excess 0 2 1 05/30/24 05/31/24 06/04/24 08:45 04:54 02:10 ABG pH 7.47 H 7.45 7.45 ABG pCO2 35 38 36 ABG pO2 86 D 82 L 139 H ABG HCO3 26 26 25 ABG O2 Saturation 97 96 98 ABG Base Excess 2 2 1 06/04/24 06/05/24 06/05/24 18:16 11:36 12:59 ABG pH 7.44 7.11 L* D 7.20 L ABG pCO2 36 94 H* D 68 H D ABG pO2 80 L D 150 H D 121 H D ABG HCO3 24 30 H 26 ABG O2 Saturation 94 97 97 ABG Base Excess 0 -2 -3 06/05/24 06/06/24 06/06/24 19:25 04:13 15:27 ABG pH 7.22 L 7.27 L 7.30 L ABG pCO2 64 H 57 H 60 H ABG pO2 122 H 153 H D 74 L D ABG HCO3 26 26 29 H ABG O2 Saturation 97 99 H 92 ABG Base Excess -3 -2 2 06/07/24 06/07/24 06/08/24 03:55 09:59 04:20 ABG pH 7.41 D 7.43 7.45 ABG pCO2 56 H 55 H 50 H ABG pO2 293 H D 78 L D 75 L ABG HCO3 36 H 37 H 35 H ABG O2 Saturation 99 H 95 94 ABG Base Excess 10 H 11 H 10 H 06/08/24 06/08/24 06/08/24 11:05 11:50 13:18 ABG pH 7.17 L* D 7.10 L* 7.15 L* ABG pCO2 95 H* D 115 H* D 88 H* D ABG pO2 89 75 L 72 L ABG HCO3 34 H 36 H 31 H ABG O2 Saturation 92 84 L 85 L ABG Base Excess 3 4 H 0 06/08/24 06/09/24 06/09/24 17:02 01:33 03:15 ABG pH 7.18 L* 7.22 L 7.27 L ABG pCO2 50 H D 91 H* D 82 H* ABG pO2 82 L 105 D 86 ABG HCO3 19 L 37 H 38 H ABG O2 Saturation 93 97 95 ABG Base Excess -9 L 7 H 9 H 06/09/24 06/09/24 06/10/24 05:08 12:52 04:40 ABG pH 7.31 L 7.33 L 7.30 L ABG pCO2 75 H* 57 H D 78 H* D ABG pO2 97 158 H D 65 L D ABG HCO3 38 H 30 H 38 H ABG O2 Saturation 97 99 H 90 L ABG Base Excess 10 H 3 9 H 06/10/24 06/11/24 06/12/24 09:40 04:19 04:15 ABG pH 7.27 L 7.35 7.48 H D ABG pCO2 88 H* D 86 H* 63 H D ABG pO2 65 L 70 L 76 L ABG HCO3 40 H 48 H 47 H ABG O2 Saturation 89 L 93 95 ABG Base Excess 10 H 19 H 21 H 06/13/24 07:22 ABG pH 7.46 H ABG pCO2 56 H ABG pO2 80 L ABG HCO3 39 H ABG O2 Saturation 95 ABG Base Excess 13 H Quality Measures Quality Measures sepsis Current suspected stage: sepsis Possible source: pulmonary, GI tract/intra-abdominal, genitourinary and skin/soft tissue Blood cultures ordered: yes Antibiotic ordered: Yes Assessment & Plan Assessment Current Active Medications: Generic Name Dose Route Start Last Admin Trade Name Freq PRN Reason Stop Dose Admin Acetaminophen 975 mg 06/09/24 14:27 06/10/24 08:32 Acetaminophen Munira 325 Mg/10 Ml Udc PO 06/26/24 12:10 975 mg Q6H PRN Administration Pain 1-3 and Fever >101.5 Albuterol/Ipratropium 3 ml 06/05/24 11:40 06/09/24 22:18 Albuterol/Ipratropium (Duoneb) Rt Munira 3 Ml Nebu INH 07/05/24 14:59 3 ml Q4HRRT PRN Administration Wheezing Calcium Carbonate 600 mg 06/06/24 09:00 06/08/24 08:40 Calcium Carbonate 600 Mg Tablet NG 07/06/24 08:59 600 mg QDAY JUAN JOSE Administration Chlorpromazine HCl 25 mg 06/04/24 14:15 06/05/24 05:16 Chlorpromazine 25 Mg Tablet PO 07/04/24 14:14 25 mg TID JUAN JOSE Administration Dextrose 25 ml 06/06/24 08:20 Dextrose 50%-Water Inj 50 Ml Syringe IV 07/06/24 08:19 Q15MIN PRN BG 50-70 responsive npo pt Dextrose 50 ml 06/06/24 08:20 Dextrose 50%-Water Inj 50 Ml Syringe IV 07/06/24 08:19 Q15MIN PRN BG <50 OR BG <70 & pt unresponsive Emtricitabine/Tenofovir 1 tab 06/09/24 09:00 06/13/24 08:40 Emtricitabine 200 Mg/Tenofovir 300 Mg Tab (Non-Form) PO 06/16/24 08:59 1 tab QDAY JUAN JOSE Administration Enoxaparin Sodium 40 mg 06/07/24 09:00 06/13/24 08:38 Enoxaparin Sod Inj 40 Mg/0.4 Ml Syringe SC 06/21/24 08:59 40 mg QDAY JUAN JOSE Administration Glucagon 1 mg 06/06/24 08:20 Glucagon Inj 1 Mg Vial IM Q15MIN PRN BG <70, and no IV access Norepinephrine/Dextrose 8 mg in 250 mls @ 7.05 mls/hr 06/06/24 04:07 06/09/24 11:00 Levophed In D5w 8mg/250ml IV 07/06/24 04:06 0 mcg/kg/min .Q24H PRN 0 mls/hr PER PROTOCOL Titration Protocol 0.05 MCG/KG/MIN Micafungin Sodium 100 mg/ 100 mls @ 100 mls/hr 06/09/24 09:00 06/13/24 08:39 Sodium Chloride IV 06/24/24 08:59 100 mls/hr QDAY JUAN JOSE Administration Propofol 1,000 mg in 100 mls @ 2.256 mls/hr 06/09/24 14:26 06/13/24 08:47 Diprivan Ivpb IV 07/09/24 14:25 50 mcg/kg/min .Q24H PRN 22.56 mls/hr PER PROTOCOL Administration Protocol 5 MCG/KG/MIN Piperacillin/Tazobactam/Dextrose 50 mls @ 12.5 mls/hr 06/09/24 15:30 06/13/24 05:11 Zosyn IV 06/16/24 15:18 12.5 mls/hr Q8HR JUAN JOSE Administration Morphine Sulfate 100 mls @ 15 mls/hr 06/09/24 18:15 06/13/24 08:00 Morphine Sulfate Iv Drip 100mg/100ml IV 06/14/24 17:13 10 mg/hr .Q6H40M PRN 10 mls/hr SEDATION Titration Protocol 15 MG/HR Midazolam HCl 100 mg in 100 mls @ 4 mls/hr 06/10/24 15:04 Versed Pf Inj In Ns Premix IV 06/15/24 15:03 .Q24H PRN PER PROTOCOL Protocol 4 MG/HR Dexmedetomidine/Sodium Chloride 400 mcg in 100 mls @ 3.76 mls/hr 06/13/24 07:59 06/13/24 09:02 Precedex Ivpb IV 07/13/24 07:58 0.6 mcg/kg/hr .Q24H PRN 11.28 mls/hr Per PROTOCOL Titration Protocol 0.2 MCG/KG/HR Methylprednisolone Sodium Succinate 40 mg 06/10/24 09:00 06/13/24 08:38 Methylprednisolone Sod Succ 40 Mg Vial IVP 06/17/24 08:59 40 mg QDAY JUAN JOSE Administration Midazolam HCl 2 mg 06/12/24 21:12 06/13/24 05:12 Midazolam Inj 1 Mg/Ml Vial 2 Ml IV 06/17/24 21:59 2 mg Q2HR PRN Administration agitation, causing vent desynchrony Morphine Sulfate 15 mg 06/12/24 16:15 06/13/24 05:33 Morphine Sulf Liqd 10 Mg/5 Ml Udc PO 06/17/24 16:14 15 mg Q8HR JUAN JOSE Administration Ondansetron HCl 4 mg 05/29/24 21:51 06/04/24 17:44 Ondansetron Inj 2 Mg/Ml Inj 2 Ml IV 06/28/24 21:50 4 mg Q6HR PRN Administration NAUSEA OR VOMITING Protocol Pantoprazole Sodium 40 mg 06/06/24 09:00 06/13/24 08:38 Pantoprazole Inj 40 Mg Vial IVP 07/06/24 08:59 40 mg QDAY JUAN JOSE Administration Patiromer 8.4 gm 06/09/24 10:45 06/13/24 08:39 Patiromer Calcium 8.4 Gm Packet (Non-Form) NG 07/09/24 10:44 8.4 gm QDAY JUAN JOSE Administration Polyethylene Glycol 17 gm 06/11/24 08:17 06/12/24 23:17 Polyethylene Glycol 17 Gm Packet PO 07/11/24 08:59 17 gm QDAY PRN Administration CONSTIPATION Protocol Promethazine HCl/Dextromethorphan 5 ml 05/28/24 16:56 05/30/24 02:34 Promethazine/Dm Syrup 5 Ml Dose PO 06/27/24 16:55 5 ml Q4HR PRN Administration COUGH Protocol Quetiapine Fumarate 50 mg 06/10/24 21:00 06/12/24 20:30 Quetiapine Fumarate 25 Mg Tablet PO 07/10/24 20:59 50 mg HS JUAN JOSE Administration Quetiapine Fumarate 25 mg 06/11/24 09:00 06/13/24 08:38 Quetiapine Fumarate 25 Mg Tablet PO 07/11/24 08:59 25 mg QDAY JUAN JOSE Administration Raltegravir 400 mg 06/09/24 09:00 06/13/24 08:39 Raltegravir 100 Mg Chew (Non-Form) NG 06/16/24 08:59 400 mg BID JUAN JOSE Administration Sennosides 1 tab 06/11/24 09:00 06/13/24 08:37 Senna Tablet PO 07/11/24 08:59 1 tab QDAY JUAN JOSE Administration Protocol Trimethoprim/Sulfamethoxazole 40 ml 06/09/24 12:00 06/13/24 07:15 Trimethoprim 160 Mg/Sulfa 800 Mg Susp 20 Ml Udc PO 06/16/24 11:59 40 ml QID JUAN JOSE Administration Plan This is a 39-year-old gentleman with no known previous past medical history who initially presented to [facility] on 05/27/[facility]24 with a chief complaint of shortness of breath and cough, and recent history of chills, body aches, generalized weakness, fever, and night sweats progressively worsening over the prior weeks, subsequently admitted for acute hypoxic respiratory failure secondary to bilateral community-acquired pneumonia. He has had multiple rapid response alerts during the course of hospitalization for increasing oxygen requirements and recurrent fevers. He was monitored in ICU from 05/30-05/31, now currently upgraded to ICU again 06/05 for intubation and bronchoscopy. NEURO Prior to intubation, patient is awake, alert, and oriented x3, following commands, conversational. #No active problem, sedated. Fentanyl was discontinued due to concern for tachyphylaxis. Cisatracurium was discontinued 06/11 -Morphine drip with a RASS goal of -4 ?Added oral morphine 15 mg 3 times daily - Propofol for sedation overnight ?Midazolam 2 mg IV prn CARDIO #Septic shock, resolved #Sinus tachycardia, resolved Most likely shock is due to sepsis landaverde to bilateral pneumonia. Tachycardia most likely secondary to respiratory distress and agitation. BP mostly had been maintaining MAP >65, 06/09/24 in the morning, MAP went down to 59-60, he was started on levophed. -Continuous telemetry -Echo was read 06/06: EF 55-60% - repeated blood, urine culture were negative - ETT sputum cultures positive for GPC PULM #Acute hypoxic respiratory failure Secondary to #Bilateral pneumocystis jirovecii pneumonia #Healthcare associated pneumonia Patient presented with dyspnea and cough, requiring 4L NC on first ED evaluation, and history of chills, body aches, generalized weakness, fever, and night sweats progressively worsening over the prior weeks. Over hospitalization patient supplemental O2 requirements increased, requiring HiFlow by the second day. He has been treated empirically for community acquired pneumonia, but continues to have worsening respiratory status. Follow up CXRs continue to show worsening fluffy bilateral extensive infiltrates. Ddx: Infectious pneumonia bacterial vs fungal vs less likely viral, autoimmune causes, drug-induced causes. Negative studies: Cocci IgM and IgG, Hepatitis panel, Syphilis, Legionella, H.flu, N.meningitidis, Strep B, Strep pneumoniae, COVID, RSV, Flu A & B. Indeterminate: TB quantiferon GOLD Positive: Beta-(1,3)-D-Glucan 06/05/2024 Bronchoscopy completed today, which showed normal-appearing mucosa and no mucous plugging, hemorrhage, or friability bilaterally. Sandra stain of BAL showed PJP and other fungi, possibly Kassandra. Kassandra is most likely a contaminant. Fungal cultures are pending. Bronchoalveolar washings culture were negative for growth. Tx: -Continue Bactrim, Zosyn, and micafungin - Zosyn 05/30-present - Vancomycin -06/10/24. Discontinued by infectious disease due to the fact patient is receiving Bactrim - Micafungin 06/09/24-present -Discontinued fluconazole 05/28-06/12 -Fungal culture pending -DuoNebs q4h as needed ?Ordered G6PD send out in case we switch the patient over to dapsone to protect from hemolytic side effects - ETT sputum cultures positive for GPC #ARDS Patient continues to have increased oxygen demands with worsening bilateral infiltrates on CXR. Will maintain ARDS ventilation protocol. Ddx: In setting of worsening pneumonia. In the morning 06/06, vent settings were: VT 410, RR35, FiO2 70 ABG 06/09/24: pH 7.31, pCO2 75, pO2 97. 06/08/24 P:F ratio 89/1=89. Severe ARDS. 06/09/24 P:F ratio 97/33=016. Moderate ARDS. 06/10/2024 P:F ratio 65/.71=716 06/11/24 P:F ratio 70/335=620 06/12/24 P: F ratio 217 06/13/24 P:F ratio 160 Tx: - Will try to put patient on spontaneous mode with pressure support during the day. Will try to downtitrate FiO2. Current FiO2 is 50%. - VC overnight: Low tidal volume ventilation, will try to keep TV ~380 according to 6 mL/kg predicted body weight -Maintain peak plateau <30 -Permissive hypercapnia -Follow up ABG -Methylprednisolone 40 mg qday GI Prophylaxis: Pantoprazole 40 mg IV qday #Elevated LFTs, improving Likely due to propofol and bactrim. Mildly elevated, liver US 05/30/2024 showed normal gallbladder and hepatomegaly without lesions or evidence of obstructions. Hep panel negative. LFTs downtrended compared to 06/06/24. -Continue monitoring NEPHRO #WILL, improving #Hyperkalemia, resolved #Hyperphosphatemia #Hyponatremia, resolved #Non-anion gap respiratory acidosis with metabolic alkalosis Ddx: Prerenal WILL due to hypotension vs possible rhabdomyolysis vs drug toxicity (zosyn, vancomycin, bactrim) Unlikely rhabdomyolysis, CK was 511 06/06, did not uptrend. Urine output is >100 ml/hr, urine is yellow and clear. Possible underlying SIADH. Potassium 06/11/24 4.4. Plan: -Monitor CMP, repeat potassium - Velt[place] - in case increasing hyperkalemia patient will need dialysis - Free water at 40ml/hr - NS at 125/hr URO #No active problems -Tijerina placed 06/05/2024 HEME #Microcytic anemia Clinically no evidence of bleeding. Iron panel shows iron 17, TIBC 262, iron saturation 6, unsaturated iron binding 245. Peripheral blood film confirms microcytic hypochromic anemia with target cells. Patient hemoglobins stable, does not require transfusion at the moment, PT, INR, PTT within normal range. Also daily lab draws contributing. Plan: -Monitor H&H. Transfusing for Hgb <7 #Leukocytosis, resolved In the setting of likely infection and corticosteroids. Elevated WBC on 06/09/24 Plan: -Treatment of pneumonia as above #Thrombocytosis, resolved Likely reactive. -Continue to monitor ENDO #No active problems ID #Bilateral pneumocystis pneumonia #Healthcare associated pneumonia Negative studies: Cocci IgM and IgG, Hepatitis panel, Syphilis, Legionella, H.flu, N.meningitidis, Strep B, Strep pneumoniae, COVID, RSV, Flu A & B. Indeterminate: TB quantiferon GOLD Positive: Beta-(1,3)-D-Glucan Silver stain of BA washings positive for Pneumocystis. HIV PCR positive. Patient completed 5 day course of azithromycin. Plan: -Continue Bactrim - continue Zosyn -ID following, appreciate reccomendations - HAART: truvada and raltegravir 06/09/24-present ? Tylenol as needed for fevers. MSK #No active problems SKIN #No active problems DVT prophylaxis: lovenox GI prophylaxis: Pantoprazole 40 mg IV qday Diet: tube feeds Nepro Tijerina: Present (06/05- ) Lines: Peripheral IV, Right radial arterial line. Antibiotics: Bactrim, Zosyn, micafungin CODE STATUS: FULL CODE Reason for ICU care: Acute hypoxic respiratory failure secondary to bilateral pneumonia/ARDS Plan of care discussed with attending Dr. Justin Pinzon PGY-1 Attending Provider Attestation/Addendum Patient seen and examined with above resident, Denise Crowder MD. I agree with the findings, assessment, and plan of care as documented for any differences below. Patient was demonstrated continues to be stable. Continues to be difficult to wean off of sedation with ventilator dyssynchrony noted. Patient is able to tolerate pressure support trials with minimal pressure reported adequate volumes. Fortunately strength has been preserved along with gas exchange on low FiO2 and PEEP however mentation is limiting her ability to extubate. He does wake up and become agitated but does not follow commands. Open tries to open eyes when verbally stimulated. Will try to transition off of continuous IV sedation with morphine off of Versed completely. Patient on Precedex but with as needed pushes of Versed still required intermittently. Patient on oral morphine as a potential transition point as well. Will consider trying phenobarbital alternatively for his longer lasting effect. Patient remains on appropriate regimen for PJP pneumonia as well as superimposed bacterial infection from ventilator associated pneumonia. Patient's prognosis continues to be guarded but renal function has also returned and rate limiting step for progression continues to be acute encephalopathy now. Hemodynamically stable as well with improved compliance overall. Total critical care time: I personally spent 40 minutes for review of physiologic parameters, directing plan of care throughout the day, coordination of care with other specialties, and counseling patient's family at bedside. This is exclusive of time spent teaching housestaff or performing any separate billable procedures. Patient continues to require critical care services for acute hypoxic respiratory failure/ARDS in the setting of PJP pneumonia and newly diagnosed AIDS. Patient continues to be at high risk for increased morbidity and mortality.
[2024-06-13 10:40] LABS: HIV-1/2 Rapid Confirmation See Cmnt-Confrm=Pos
--- NOTE | 2024-06-13 12:22 | PD.NEPHPROG ---
Documentation for date of: 06/13/24 Subjective Subjective Interval history: 39-year-old male with no known previous past medical history who presented to [facility] on 05/27/2024 with a chief complaint of shortness of breath and cough. Patient had exhibited symptoms of chills, body aches, generalized weakness, fever, and night sweats progressively worsening over the prior weeks. He was admitted and initiated on empiric treatment for community-acquired pneumonia and cocci pneumonia, although cocci IgM returned negative twice this admission. Over the course of his hospitalization patient's oxygen requirements continued to worsen as he became more hypoxic worse with activity and movement. Pt is admitted to ICU with repiratory failure. Nephrology consulted for dialysis for recurrent hyperkalemia. Pt is seen and examined. Pt remains intubated Exam Vital Signs Temp Pulse Resp BP Pulse Ox O2 Del Method O2 Flow Rate 97.7 F 85 35 H 108/56 L 94 L Mechanical Ventilation 40 06/13/24 07:00 06/13/24 10:02 06/13/24 06:41 06/13/24 10:02 06/13/24 10:02 06/13/24 07:00 06/09/24 12:16 FiO2 50 06/13/24 10:02 Narrative Exam Pt is intubated and sedated Chest: emeli ventilatory sounds Heart : s1, s2 Ext: trace edema Objective Labs 06/15/24 05:30 06/15/24 05:30 Labs: Laboratory Results - last 24 hr 06/07/24 06/13/24 06/13/24 12:06 05:39 07:22 WBC 14.4 H D RBC 4.09 L Hgb 9.6 L Hct 29.4 L MCV 72 L MCH 23.5 L MCHC 32.7 RDW Std Deviation 47.1 H Plt Count 335 Neut % (Auto) 92 H Lymph % (Auto) 4 L Milam % (Auto) 2 Eos % (Auto) 1 Baso % (Auto) 0 Neut # (Auto) 13.2 H Lymph # (Auto) 0.6 L Milam # (Auto) 0.4 Eos # (Auto) 0.2 Baso # (Auto) 0.0 Immature Gran # (Auto) 0.15 H Absolute Nucleated RBC 0.07 H Immature Gran % 1 H Nucleated RBC % 1 H Puncture Site Arterial Line ABG pH 7.46 H ABG pCO2 56 H ABG pO2 80 L ABG HCO3 39 H ABG O2 Saturation 95 ABG Base Excess 13 H FiO2 50 Sodium 132 L Potassium 4.7 Chloride 93 L Carbon Dioxide 35.2 H Anion Gap 4 L BUN 19 Creatinine 0.8 Estim Creat Clear Calc 113.0 eGFR > 60 BUN/Creatinine Ratio 24 H Glucose 99 Calculated Osmolality 266 L Calcium 9.2 Corrected Calcium 9.8 Total Bilirubin 0.5 AST 78 H ALT 203 H Alkaline Phosphatase 98 Total Protein 6.3 Albumin 3.2 L Globulin 3.1 Albumin/Globulin Ratio 1.0 L HIV (1&2) Ab Confirm See Cmnt-Confrm=Pos A ABG Interpretation ABG results: 05/27/24 05/29/24 05/29/24 23:37 10:44 22:08 ABG pH 7.51 H 7.50 H 7.48 H ABG pCO2 28 L 32 32 ABG pO2 75 L 79 L 145 H D ABG HCO3 23 25 24 ABG O2 Saturation 96 95 98 ABG Base Excess 0 2 1 05/30/24 05/31/24 06/04/24 08:45 04:54 02:10 ABG pH 7.47 H 7.45 7.45 ABG pCO2 35 38 36 ABG pO2 86 D 82 L 139 H ABG HCO3 26 26 25 ABG O2 Saturation 97 96 98 ABG Base Excess 2 2 1 06/04/24 06/05/24 06/05/24 18:16 11:36 12:59 ABG pH 7.44 7.11 L* D 7.20 L ABG pCO2 36 94 H* D 68 H D ABG pO2 80 L D 150 H D 121 H D ABG HCO3 24 30 H 26 ABG O2 Saturation 94 97 97 ABG Base Excess 0 -2 -3 06/05/24 06/06/24 06/06/24 19:25 04:13 15:27 ABG pH 7.22 L 7.27 L 7.30 L ABG pCO2 64 H 57 H 60 H ABG pO2 122 H 153 H D 74 L D ABG HCO3 26 26 29 H ABG O2 Saturation 97 99 H 92 ABG Base Excess -3 -2 2 06/07/24 06/07/24 06/08/24 03:55 09:59 04:20 ABG pH 7.41 D 7.43 7.45 ABG pCO2 56 H 55 H 50 H ABG pO2 293 H D 78 L D 75 L ABG HCO3 36 H 37 H 35 H ABG O2 Saturation 99 H 95 94 ABG Base Excess 10 H 11 H 10 H 06/08/24 06/08/24 06/08/24 11:05 11:50 13:18 ABG pH 7.17 L* D 7.10 L* 7.15 L* ABG pCO2 95 H* D 115 H* D 88 H* D ABG pO2 89 75 L 72 L ABG HCO3 34 H 36 H 31 H ABG O2 Saturation 92 84 L 85 L ABG Base Excess 3 4 H 0 06/08/24 06/09/24 06/09/24 17:02 01:33 03:15 ABG pH 7.18 L* 7.22 L 7.27 L ABG pCO2 50 H D 91 H* D 82 H* ABG pO2 82 L 105 D 86 ABG HCO3 19 L 37 H 38 H ABG O2 Saturation 93 97 95 ABG Base Excess -9 L 7 H 9 H 06/09/24 06/09/24 06/10/24 05:08 12:52 04:40 ABG pH 7.31 L 7.33 L 7.30 L ABG pCO2 75 H* 57 H D 78 H* D ABG pO2 97 158 H D 65 L D ABG HCO3 38 H 30 H 38 H ABG O2 Saturation 97 99 H 90 L ABG Base Excess 10 H 3 9 H 06/10/24 06/11/24 06/12/24 09:40 04:19 04:15 ABG pH 7.27 L 7.35 7.48 H D ABG pCO2 88 H* D 86 H* 63 H D ABG pO2 65 L 70 L 76 L ABG HCO3 40 H 48 H 47 H ABG O2 Saturation 89 L 93 95 ABG Base Excess 10 H 19 H 21 H 06/13/24 07:22 ABG pH 7.46 H ABG pCO2 56 H ABG pO2 80 L ABG HCO3 39 H ABG O2 Saturation 95 ABG Base Excess 13 H Assessment & Plan Assessment and plan (1) Acute hyperkalemia: Status: Acute Assessment and plan: WILL improved Hyperkalemia is mproved f/u renal panel and electrolytes closely Procedures Arterial Line Size (Gauge): 20
--- NOTE | 2024-06-13 12:23 | PC.NURSE ---
MD Anderson aware of patients increased BP. Pt is starting to wake up and is anxious
--- NOTE | 2024-06-13 12:27 | PC.NURSE ---
MD Anderson made aware that patient's urine output for the past 2hrs is 400cc. Free water flushes on tube feeds changed from 150cc/hr to 40cc/hr.
[2024-06-13] MEDS: SODIUM CHLORIDE 0.9% 500 ML 500 ML 125 ML IV (12:35)
[2024-06-13] MEDS: DEXMEDETOMIDINE 400 MCG IVPB 400 MCG/100 ML BAG 18.8 MCG IV (13:58)
[2024-06-13] MEDS: PROPOFOL 1,000 MG IVPB 1,000 MG/100 ML VIAL 2.256 MG IV (13:59)
--- NOTE | 2024-06-13 14:51 | PC.SS ---
Rounding Note: Patient remains intubated/sedated. OG tube in place for feeds. No pressors. No skin issues. Vitals are stable. IV medication being administered. Tijer[place] catheter in place.
[2024-06-13] MEDS: MIDAZOLAM INJ 1 MG/ML VIAL 2 ML 4 MG IV ×3 (16:08→23:38)
--- NOTE | 2024-06-13 16:27 | PC.NURSE ---
Pt's UOP 400cc/hr, MD Santos aware
[2024-06-13] MEDS: SODIUM CHLORIDE 0.9% 500 ML 500 ML 999 ML IV (16:35)
[2024-06-13] MEDS: DEXMEDETOMIDINE 400 MCG IVPB 400 MCG/100 ML BAG 26.32 MCG IV (19:06)
[2024-06-13] MEDS: PROPOFOL 1,000 MG IVPB 1,000 MG/100 ML VIAL 13.536 MG IV (22:20)
[2024-06-13] MEDS: DEXMEDETOMIDINE 400 MCG IVPB 400 MCG/100 ML BAG 22.56 MCG IV (23:07)
[2024-06-14] VITALS (32 sets, daily range): BP systolic 86–151; BP diastolic 44–75; PULSE 76–91; RESP 0–40; TEMP 36.2–38.1; O2SAT 89–99; BMI 25.7
[2024-06-14] MEDS: MIDAZOLAM INJ 1 MG/ML VIAL 2 ML 2 MG IV (00:20)
--- NOTE | 2024-06-14 00:23 | PC.RT ---
Atempted to place PT on PC and VC for night per MD Awan, PT HR decreased with RR increase and showed signs of discomfort. Returned back to Spont settings Per MD Awan.
--- NOTE | 2024-06-14 00:32 | PC.RT ---
Versed given per MD Awan and patient placed on PC. PT tolerating well.
[2024-06-14] MEDS: POLYETHYLENE GLYCOL 17 GM PACKET PO ×2 (01:22→17:21)
[2024-06-14] MEDS: Morphine IV Drip 100mg/100ml 100 ML 10 MG IV (01:58)
[2024-06-14] MEDS: MIDAZOLAM INJ 1 MG/ML VIAL 2 ML 4 MG IV ×5 (02:32→23:59)
[2024-06-14] MEDS: DEXMEDETOMIDINE 400 MCG IVPB 400 MCG/100 ML BAG 18.8 MCG IV ×4 (04:11→21:11)
[2024-06-14] MEDS: PROPOFOL 1,000 MG IVPB 1,000 MG/100 ML VIAL 15.792 MG IV ×3 (04:13→23:50)
[2024-06-14 04:49] LABS: Base Excess 6 (-3-3); HCO3 30 mEq/L (20-26); Inspired Oxygen, FIO2 60 %; O2 Saturation 92 % (91-98); PCO2 40 mmHg (32.0-48.0); PO2 64 mmHg (83-108); pH, Arterial 7.48 (7.35-7.45)
[2024-06-14 04:51] LABS: Allen Test Not Performed; Puncture Site Arterial Line
--- NOTE | 2024-06-14 05:00 | XR_ITS ---
Examination: AP chest single view Technique one AP portable semiupright chest single view Exam date and time: June 14, 2024 at 0551 hours Comparison June 13, 2024 INDICATIONS: Difficulty breathing this week, hypoxic respiratory failure, pneumonia ARDS pattern on chest imaging this week FINDINGS: Severe bilateral lung opacity Tracheal tube tip 6.1 cm above sunil Orogastric tube in the stomach, tip below the level of the film No pneumothorax IMPRESSION: Again noted extensive bilateral pneumonia ARDS pattern
[2024-06-14] MEDS: TRIMETHOPRIM 160 MG/SULFA 800 MG SUSP 20 ML UDC 40 ML PO ×4 (05:19→20:52)
[2024-06-14] MEDS: PIPER/TAZO 3.375 GM 50 ML IV ×3 (05:27→22:40)
[2024-06-14] MEDS: MORPHINE SULF LIQD 10 MG/5 ML UDC 15 MG PO ×3 (05:34→22:25)
[2024-06-14 05:51] LABS: Basophils % (Auto) 0 % (0-2.5); Eosinophils # (Auto) 0.1 Thou/mm3 (0.0-0.5); Eosinophils % (Auto) 1 % (0-10); Hematocrit 32.9 % (41.0-53.0); Hemoglobin 10.4 g/dL (13.5-16.0); Immature Granulocytes % (Auto) 1 % (0-0); Immature Granulocytes Auto 0.17 Thou/mm3 (0.00-0.00); Lymphocytes # (Auto) 0.5 Thou/mm3 (1.0-4.8); Lymphocytes % (Auto) 4 % (10-50); Mean Corpuscular HGB Conc 31.6 g/dl (31.0-37.0); Mean Corpuscular Hemoglobin 23.3 pg (25.0-35.0); Mean Corpuscular Volume 74 fL (80-100); Monocytes # (Auto) 0.3 Thou/mm3 (0.0-0.8); Monocytes % (Auto) 2 % (0-12); Neutrophils # (Auto) 11.3 Thou/mm3 (1.8-7.7); Neutrophils % (Auto) 91 % (37-80); Nucleated Red Blood Cell # 0.16 Thou/mm3 (0.00-0.00); Nucleated Red Blood Cell % 1 /100 WBC (0); Platelet Count 256 Thou/mm3 (140-440); RDW Standard Deviation 47.1 fL (35.1-43.9); Red Blood Count 4.47 Miln/mm3 (4.50-5.90); White Blood Count 12.4 Thou/mm3 (3.8-10.6)
[2024-06-14 06:09] LABS: Alanine Aminotransferase 162 U/L (10-49); Albumin, Serum 3.3 gm/dL (3.5-5.0); Alkaline Phosphatase 98 U/L (46-116); Anion Gap 6 (7-16); Aspartate Amino Transferase 65 U/L (0-34); BUN/Creatinine Ratio 29 Ratio (12-20); Bilirubin,Total 0.7 mg/dL (0.3-1.2); Blood Urea Nitrogen 23 mg/dL (9-23); Calcium 8.7 mg/dL (8.3-10.6); Calcium (Corrected) 9.3 mg/dL (8.5-10.1); Carbon Dioxide 27.5 mMol/L (20.0-31.0); Chloride 97 mMol/L (98-107); Creatinine (Component) 0.8 mg/dL (0.6-1.3); Globulin 3.2 gm/dL (2.3-3.5); Glucose 95 mg/dL (74-106); Osmolality,Calculated 264 (275-295); Potassium 4.5 mMol/L (3.4-5.1); Sodium 130 mMol/L (136-145); Total Protein 6.5 gm/dL (5.7-8.2); eGFR > 60 See Note
[2024-06-14] MEDS: [UNRECOGNIZED DRUG - REMARK] 400 MG NG ×2 (08:45→20:55)
[2024-06-14] MEDS: SENNA TABLET 1 TAB PO (08:45)
[2024-06-14] MEDS: EMTRICITABINE 200 MG/TENOFOVIR 300 MG TAB (NON-FORM) 1 TAB PO (08:45)
[2024-06-14] MEDS: ENOXAPARIN SOD INJ 40 MG/0.4 ML SYRINGE SC (08:46)
[2024-06-14] MEDS: PANTOPRAZOLE INJ 40 MG VIAL IVP (08:46)
[2024-06-14] MEDS: PATIROMER CALCIUM 8.4 GM PACKET (NON-FORM) NG (08:47)
[2024-06-14] MEDS: MICAFUNGIN SODIUM INJ 100 MG in SODIUM CHLORIDE 0.9% 100 ML IV (09:42)
[2024-06-14] MEDS: PHENobarbital Inj 130 MG, SODIUM CHLORIDE 0.9% FLUSH 12 ML IVP (09:45)
[2024-06-14] MEDS: SODIUM CHLORIDE 0.9% 1000 ML 1,000 ML 75 ML IV (11:08)
[2024-06-14] MEDS: PROPOFOL 1,000 MG IVPB 1,000 MG/100 ML VIAL 13.536 MG IV (11:57)
--- NOTE | 2024-06-14 13:34 | PC.SS ---
Update: Patient remains intubated/sedated. No skin issues at present time. Feedings via OG tube. Patient not receiving pressors.
[2024-06-14] MEDS: bisacodyL 5 MG TABEC PO (17:21)
--- NOTE | 2024-06-14 17:46 | ESPR_ITS ---
<Statement entered by Jennifer Velasco MD - 06/18/24 01:15> Patient was seen and examined by me personally. I have directly supervised and reviewed the above documentation by the team resident and agree with its findings with any exceptions or additional findings as below. Plan of care was discussed with the attending, Dr. Anderson. Jennifer Velasco, PGY-2 Documentation for date of: 06/14/24 Subjective Subjective Interval history: 06/10/24: Patient is doing better today with ABG for this morning revealing a CO2 of 78 and a pH of 7.30. We are allowing for permissive hypercapnia and O2 65. Revealing PA/FiO2 ratio of 147. Overnight sedation was changed from fentanyl to morphine we will continue to titrate up morphine based on his hemodynamic stability. Patient became hypertensive and we suspect he requires more sedation so we will increase morphine. We will continue with paralytic use for 1 more day and discontinue tomorrow after 3 total days of paralytics. Patient's vancomycin was discontinued by infectious disease due to the fact that he remains on Bactrim. Dr Hope did suggest ordering a G6PD test to assess for G6PD deficiency in case we do switch to dapsone. Continuing with Bactrim, micafungin, and Zosyn. Transaminitis is continuing to improve and patient remains on Nepro with tube feeds at 40 cc an hour with low amounts of residuals. Last bowel movement was noted to be June 08 and he is receiving GI prophylaxis with Protonix. Hyperkalemia this morning appear to have been resolved with most recent potassium noted at 4.6. We will repeat another potassium at 2 PM to see if patient will require further hemodialysis but we will also initiate Lasix 40 mg IV push twice daily for diuresis in hopes that that will contribute to decreasing his hyperkalemia and help improve his potassium. Continues to remain anemic with iron deficiency anemia but hemoglobin is stable and is not a candidate for blood transfusion or iron repletion currently. 06/11/24:Patient was seen and examined by the bedside. No acute overnight events. No fevers overnight. Patient oxygen requirements decreased a little bit, his ABGs showed pH 7.35 slightly improved oxygenation. P:F ratio is 175. Chest Xray showed improvement compared to yesterday. Patient had a urine output of 5.3L, negative balance -4.4L. Cisatracurium is discontinued today, will try to slowly titrate down the sedation. Continues to receive bactrim, zosyn, micafungin. Repeat blood cultures, urine cultures are negative. ETT secretions grew GPC. ID is following patient. 06/12/24:Patient was seen and examined by the bedside. No acute overnight events. No fevers overnight. Patient had an awakening trial today due to his improvement in oxygenation. He was able to continue on spontaneous mode PS for a few hours, but due to agitation he was sedated again, but continued on spontaneous PS. ABGs showed pH 7.48, pCO2 63, pO2 78. PF ratio is 217. Will try awakening trial tomorrow again. Will keep his sedated throughout the night while on AC. Added oral morphine to decrease respiratory distress and sedation, will try to downtitrate propofol. Discontinued fluconazole. 06/13/24: Patient was seen and examined by the bedside. No fevers overnight. Saturates well on FiO2 of 50. Overnight patient was double stacking, pulling hide tidal volume on volume control, received midazolam 2 mg pushes for sedation, was also started on Precedex drip. Will try awakening trial today. Continues to be on morphine drip and oral morphine. In the morning was switched to PS 8, PEEP 10, FiO2 50. Will continue Bactrim and micafungin, length of course 21 days. Continue Zosyn for HAP. Sedation was turned off for awakening trial, patient was able to breath spontaneously, but did not follow commands. He became agitated, was inhaling high VT, BP went up to 180/88, was sedated again. Will switch him back to VC mode overnight. Family was advised to spend time with him. 06/14/24: Patient was seen and examined by the bedside. No fevers overnight. Saturates well on FiO2 of 60. Overnight patient was on PC, RR 14 but was tachypneic, double stacking, pulling high tidal volume, received midazolam 4 mg pushes for sedation, continued to be on Precedex drip and propofol. Continues to be on oral morphine, morphine drip was discontinued. Patient started on SPONT PS in the morning again. Sedation was turned off for awakening trial, patient was able to breath spontaneously, but did not follow commands, does not open his eyes to the speech. He became agitated, was inhaling high VT, was sedated again.Due to his mental status, patient is not a candidate for extubation at the moment. Will switch him back to VC mode overnight. Family was advised to spend time with him, to talk to him and support. His ABGs showed improvement of hypercapnia and respiratory acidosis. Will continue Bactrim and micafungin, length of course 21 days. Continue Zosyn for HAP. Exam Vital Signs Temp Pulse Resp BP Pulse Ox O2 Del Method O2 Flow Rate 97.2 F 82 31 H 119/58 L 91 L Mechanical Ventilation 40 06/14/24 15:00 06/14/24 16:00 06/14/24 06:39 06/14/24 16:00 06/14/24 16:00 06/14/24 15:00 06/09/24 12:16 FiO2 60 06/14/24 16:00 Narrative Exam Gen: Well-developed and well-nourished. Sedated. HEENT: NCAT, PERRLA, EOMI, MMM, anicteric conjunctivae. CVS: normal S1 and S2. RRR. No M/R/G. Resp: Bilateral diffuse rhonchi. Abd: soft, non-tender, non-distended. BS+ in all 4 quadrants. MSK: Good ROM in BUE & BLE. No rash. Mildly edematous left arm. Multiple tattoos present. Neuro: No gross focal neurological finding. Psych: Impossible to assess. Objective Labs 06/17/24 05:42 06/17/24 05:42 Labs: Laboratory Results - last 24 hr 06/10/24 06/14/24 06/14/24 12:50 04:32 05:20 WBC 12.4 H RBC 4.47 L Hgb 10.4 L Hct 32.9 L MCV 74 L MCH 23.3 L MCHC 31.6 RDW Std Deviation 47.1 H Plt Count 256 D Neut % (Auto) 91 H Lymph % (Auto) 4 L [place] % (Auto) 2 Eos % (Auto) 1 Baso % (Auto) 0 Neut # (Auto) 11.3 H Lymph # (Auto) 0.5 L [place] # (Auto) 0.3 Eos # (Auto) 0.1 Baso # (Auto) 0.0 Immature Gran # (Auto) 0.17 H Absolute Nucleated RBC 0.16 H Immature Gran % 1 H Nucleated RBC % 1 H Puncture Site Arterial Line ABG pH 7.48 H ABG pCO2 40 D ABG pO2 64 L ABG HCO3 30 H ABG O2 Saturation 92 ABG Base Excess 6 H FiO2 60 Sodium 130 L Potassium 4.5 Chloride 97 L Carbon Dioxide 27.5 Anion Gap 6 L BUN 23 Creatinine 0.8 Estim Creat Clear Calc 113.0 eGFR > 60 BUN/Creatinine Ratio 29 H Glucose 95 Calculated Osmolality 264 L Calcium 8.7 Corrected Calcium 9.3 Total Bilirubin 0.7 AST 65 H ALT 162 H Alkaline Phosphatase 98 Total Protein 6.5 Albumin 3.3 L Globulin 3.2 Albumin/Globulin Ratio 1.0 L Misc Test Result See Sep Rpt ABG Interpretation ABG results: 05/27/24 05/29/24 05/29/24 23:37 10:44 22:08 ABG pH 7.51 H 7.50 H 7.48 H ABG pCO2 28 L 32 32 ABG pO2 75 L 79 L 145 H D ABG HCO3 23 25 24 ABG O2 Saturation 96 95 98 ABG Base Excess 0 2 1 05/30/24 05/31/24 06/04/24 08:45 04:54 02:10 ABG pH 7.47 H 7.45 7.45 ABG pCO2 35 38 36 ABG pO2 86 D 82 L 139 H ABG HCO3 26 26 25 ABG O2 Saturation 97 96 98 ABG Base Excess 2 2 1 06/04/24 06/05/24 06/05/24 18:16 11:36 12:59 ABG pH 7.44 7.11 L* D 7.20 L ABG pCO2 36 94 H* D 68 H D ABG pO2 80 L D 150 H D 121 H D ABG HCO3 24 30 H 26 ABG O2 Saturation 94 97 97 ABG Base Excess 0 -2 -3 06/05/24 06/06/24 06/06/24 19:25 04:13 15:27 ABG pH 7.22 L 7.27 L 7.30 L ABG pCO2 64 H 57 H 60 H ABG pO2 122 H 153 H D 74 L D ABG HCO3 26 26 29 H ABG O2 Saturation 97 99 H 92 ABG Base Excess -3 -2 2 06/07/24 06/07/24 06/08/24 03:55 09:59 04:20 ABG pH 7.41 D 7.43 7.45 ABG pCO2 56 H 55 H 50 H ABG pO2 293 H D 78 L D 75 L ABG HCO3 36 H 37 H 35 H ABG O2 Saturation 99 H 95 94 ABG Base Excess 10 H 11 H 10 H 06/08/24 06/08/24 06/08/24 11:05 11:50 13:18 ABG pH 7.17 L* D 7.10 L* 7.15 L* ABG pCO2 95 H* D 115 H* D 88 H* D ABG pO2 89 75 L 72 L ABG HCO3 34 H 36 H 31 H ABG O2 Saturation 92 84 L 85 L ABG Base Excess 3 4 H 0 06/08/24 06/09/24 06/09/24 17:02 01:33 03:15 ABG pH 7.18 L* 7.22 L 7.27 L ABG pCO2 50 H D 91 H* D 82 H* ABG pO2 82 L 105 D 86 ABG HCO3 19 L 37 H 38 H ABG O2 Saturation 93 97 95 ABG Base Excess -9 L 7 H 9 H 06/09/24 06/09/24 06/10/24 05:08 12:52 04:40 ABG pH 7.31 L 7.33 L 7.30 L ABG pCO2 75 H* 57 H D 78 H* D ABG pO2 97 158 H D 65 L D ABG HCO3 38 H 30 H 38 H ABG O2 Saturation 97 99 H 90 L ABG Base Excess 10 H 3 9 H 06/10/24 06/11/24 06/12/24 09:40 04:19 04:15 ABG pH 7.27 L 7.35 7.48 H D ABG pCO2 88 H* D 86 H* 63 H D ABG pO2 65 L 70 L 76 L ABG HCO3 40 H 48 H 47 H ABG O2 Saturation 89 L 93 95 ABG Base Excess 10 H 19 H 21 H 06/13/24 06/14/24 07:22 04:32 ABG pH 7.46 H 7.48 H ABG pCO2 56 H 40 D ABG pO2 80 L 64 L ABG HCO3 39 H 30 H ABG O2 Saturation 95 92 ABG Base Excess 13 H 6 H Quality Measures Quality Measures sepsis Current suspected stage: ruled out Possible source: pulmonary, GI tract/intra-abdominal, genitourinary and skin/soft tissue Blood cultures ordered: yes Antibiotic ordered: Yes Assessment & Plan Assessment Current Active Medications: Generic Name Dose Route Start Last Admin Trade Name Freq PRN Reason Stop Dose Admin Acetaminophen 975 mg 06/09/24 14:27 06/10/24 08:32 Acetaminophen Munira 325 Mg/10 Ml Udc PO 06/26/24 12:10 975 mg Q6H PRN Administration Pain 1-3 and Fever >101.5 Albuterol/Ipratropium 3 ml 06/05/24 11:40 06/09/24 22:18 Albuterol/Ipratropium (Duoneb) Rt Munira 3 Ml Nebu INH 07/05/24 14:59 3 ml Q4HRRT PRN Administration Wheezing Bisacodyl 5 mg 06/14/24 17:15 06/14/24 17:21 Bisacodyl 5 Mg Tabec PO 07/14/24 17:14 5 mg QDAY JUAN JOSE Administration Protocol Calcium Carbonate 600 mg 06/06/24 09:00 06/08/24 08:40 Calcium Carbonate 600 Mg Tablet NG 07/06/24 08:59 600 mg QDAY JUAN JOSE Administration Chlorpromazine HCl 25 mg 06/04/24 14:15 06/05/24 05:16 Chlorpromazine 25 Mg Tablet PO 07/04/24 14:14 25 mg TID JUAN JOSE Administration Dextrose 25 ml 06/06/24 08:20 Dextrose 50%-Water Inj 50 Ml Syringe IV 07/06/24 08:19 Q15MIN PRN BG 50-70 responsive npo pt Dextrose 50 ml 06/06/24 08:20 Dextrose 50%-Water Inj 50 Ml Syringe IV 07/06/24 08:19 Q15MIN PRN BG <50 OR BG <70 & pt unresponsive Emtricitabine/Tenofovir 1 tab 06/09/24 09:00 06/14/24 08:45 Emtricitabine 200 Mg/Tenofovir 300 Mg Tab (Non-Form) PO 06/16/24 08:59 1 tab QDAY JUAN JOSE Administration Enoxaparin Sodium 40 mg 06/07/24 09:00 06/14/24 08:46 Enoxaparin Sod Inj 40 Mg/0.4 Ml Syringe SC 06/21/24 08:59 40 mg QDAY JUAN JOSE Administration Glucagon 1 mg 06/06/24 08:20 Glucagon Inj 1 Mg Vial IM Q15MIN PRN BG <70, and no IV access Micafungin Sodium 100 mg/ 100 mls @ 100 mls/hr 06/09/24 09:00 06/14/24 09:42 Sodium Chloride IV 06/24/24 08:59 100 mls/hr QDAY JUAN JOSE Administration Piperacillin/Tazobactam/Dextrose 50 mls @ 12.5 mls/hr 06/09/24 15:30 06/14/24 13:21 Zosyn IV 06/16/24 15:18 12.5 mls/hr Q8HR JUAN JOSE Administration Propofol 1,000 mg in 100 mls @ 2.256 mls/hr 06/13/24 13:45 06/14/24 16:47 Diprivan Ivpb IV 07/09/24 14:25 35 mcg/kg/min .Q24H PRN 15.792 mls/hr PER PROTOCOL Administration Protocol 5 MCG/KG/MIN Dexmedetomidine/Sodium Chloride 400 mcg in 100 mls @ 3.76 mls/hr 06/13/24 13:46 06/14/24 16:00 Precedex Ivpb IV 07/13/24 07:58 1 mcg/kg/hr .Q24H PRN 18.8 mls/hr Per PROTOCOL Titration Protocol 0.2 MCG/KG/HR Sodium Chloride 1,000 mls @ 75 mls/hr 06/14/24 10:35 06/14/24 11:08 Ns IV 06/14/24 23:54 75 mls/hr .[id number] JUAN JOSE Administration Methylprednisolone Sodium Succinate 40 mg 06/10/24 09:00 06/14/24 08:46 Methylprednisolone Sod Succ 40 Mg Vial IVP 06/17/24 08:59 40 mg QDAY JUAN JOSE Administration Midazolam HCl 4 mg 06/13/24 16:21 06/14/24 12:44 Midazolam Inj 1 Mg/Ml Vial 2 Ml IV 06/17/24 21:59 4 mg Q2HR PRN Administration agitation, causing vent desynchrony Morphine Sulfate 15 mg 06/13/24 14:00 06/14/24 13:21 Morphine Sulf Liqd 10 Mg/5 Ml Udc PO 06/18/24 13:59 15 mg Q8H JUAN JOSE Administration Ondansetron HCl 4 mg 05/29/24 21:51 06/04/24 17:44 Ondansetron Inj 2 Mg/Ml Inj 2 Ml IV 06/28/24 21:50 4 mg Q6HR PRN Administration NAUSEA OR VOMITING Protocol Pantoprazole Sodium 40 mg 06/06/24 09:00 06/14/24 08:46 Pantoprazole Inj 40 Mg Vial IVP 07/06/24 08:59 40 mg QDAY JUAN JOSE Administration Patiromer 8.4 gm 06/09/24 10:45 06/14/24 08:47 Patiromer Calcium 8.4 Gm Packet (Non-Form) NG 07/09/24 10:44 8.4 gm QDAY JUAN JOSE Administration Polyethylene Glycol 17 gm 06/14/24 17:15 06/14/24 17:21 Polyethylene Glycol 17 Gm Packet PO 07/14/24 17:14 17 gm QDAY JUAN JOSE Administration Promethazine HCl/Dextromethorphan 5 ml 05/28/24 16:56 05/30/24 02:34 Promethazine/Dm Syrup 5 Ml Dose PO 06/27/24 16:55 5 ml Q4HR PRN Administration COUGH Protocol Quetiapine Fumarate 25 mg 06/13/24 21:00 06/13/24 20:30 Quetiapine Fumarate 25 Mg Tablet PO 07/13/24 20:59 25 mg HS JUAN JOSE Administration Raltegravir 400 mg 06/09/24 09:00 06/14/24 08:45 Raltegravir 100 Mg Chew (Non-Form) NG 06/16/24 08:59 400 mg BID JUAN JOSE Administration Sennosides 1 tab 06/11/24 09:00 06/14/24 08:45 Senna Tablet PO 07/11/24 08:59 1 tab QDAY JUAN JOSE Administration Protocol Trimethoprim/Sulfamethoxazole 40 ml 06/09/24 12:00 06/14/24 16:49 Trimethoprim 160 Mg/Sulfa 800 Mg Susp 20 Ml Udc PO 06/14/24 23:59 40 ml QID JUAN JOSE Administration Trimethoprim/Sulfamethoxazole 40 ml 06/15/24 06:00 Trimethoprim 40 Mg/Sulfa 200 Mg Susp 5 Ml PO 06/22/24 05:59 QID JUAN JOSE Plan This is a 39-year-old gentleman with no known previous past medical history who initially presented to [facility] on 05/27/2024 with a chief complaint of shortness of breath and cough, and recent history of chills, body aches, generalized weakness, fever, and night sweats progressively worsening over the prior weeks, subsequently admitted for acute hypoxic respiratory failure secondary to bilateral community-acquired pneumonia. He has had multiple rapid response alerts during the course of hospitalization for increasing oxygen requirements and recurrent fevers. He was monitored in ICU from 05/30-05/31, now currently upgraded to ICU again 06/05 for intubation and bronchoscopy. NEURO Prior to intubation, patient is awake, alert, and oriented x3, following commands, conversational. #No active problem, sedated. Fentanyl was discontinued due to concern for tachyphylaxis. Cisatracurium was discontinued 06/11 -Morphine drip with a RASS goal of -4 ?Added oral morphine 15 mg 3 times daily - Propofol for sedation overnight ?Midazolam 2 mg IV prn CARDIO #Septic shock, resolved #Sinus tachycardia, resolved Most likely shock is due to sepsis land[place] to bilateral pneumonia. Tachycardia most likely secondary to respiratory distress and agitation. BP mostly had been maintaining MAP >65, 06/09/24 in the morning, MAP went down to 59-60, he was started on levophed. -Continuous telemetry -Echo was read 06/06: EF 55-60% - repeated blood, urine culture were negative - ETT sputum cultures positive for GPC PULM #Acute hypoxic respiratory failure Secondary to #Bilateral pneumocystis jirovecii pneumonia #Healthcare associated pneumonia Patient presented with dyspnea and cough, requiring 4L NC on first ED evaluation, and history of chills, body aches, generalized weakness, fever, and night sweats progressively worsening over the prior weeks. Over hospitalization patient supplemental O2 requirements increased, requiring HiFlow by the second day. He has been treated empirically for community acquired pneumonia, but continues to have worsening respiratory status. Follow up CXRs continue to show worsening fluffy bilateral extensive infiltrates. Ddx: Infectious pneumonia bacterial vs fungal vs less likely viral, autoimmune causes, drug-induced causes. Negative studies: Cocci IgM and IgG, Hepatitis panel, Syphilis, Legionella, H.flu, N.meningitidis, Strep B, Strep pneumoniae, COVID, RSV, Flu A & B. Indeterminate: TB quantiferon GOLD Positive: Beta-(1,3)-D-Glucan 06/05/2024 Bronchoscopy completed today, which showed normal-appearing mucosa and no mucous plugging, hemorrhage, or friability bilaterally. Sandra stain of BAL showed PJP and other fungi, possibly Kassandra. Kassandra is most likely a contaminant. Fungal cultures are pending. Bronchoalveolar washings culture were negative for growth. G6PD levels came back normal. Tx: -Continue Bactrim, Zosyn, and micafungin - Zosyn 05/30-present - Vancomycin -06/10/24. Discontinued by infectious disease due to the fact patient is receiving Bactrim - Micafungin 06/09/24-present -Discontinued fluconazole 05/28-06/12 -Fungal culture pending -DuoNebs q4h as needed - ETT sputum cultures positive for Staphylococcus hemolyticus, ID reported that this is not a respiratory pathogen, no need to treat. #ARDS Patient continues to have increased oxygen demands with worsening bilateral infiltrates on CXR. Will maintain ARDS ventilation protocol. Ddx: In setting of worsening pneumonia. In the morning 06/06, vent settings were: VT 410, RR35, FiO2 70 ABG 06/09/24: pH 7.31, pCO2 75, pO2 97. 06/08/24 P:F ratio 89/1=89. Severe ARDS. 06/09/24 P:F ratio 97/71=856. Moderate ARDS. 06/10/2024 P:F ratio 65/.34=038 06/11/24 P:F ratio 70/965=324 06/12/24 P: F ratio 217 06/13/24 P:F ratio 160 Tx: - Will try to put patient on spontaneous mode with pressure support during the day. Will try to downtitrate FiO2. Current FiO2 is 50%. - VC overnight: Low tidal volume ventilation, will try to keep TV ~380 according to 6 mL/kg predicted body weight -Maintain peak plateau <30 -Permissive hypercapnia -Follow up ABG -Methylprednisolone 40 mg qday GI Prophylaxis: Pantoprazole 40 mg IV qday #Elevated LFTs, improving Likely due to propofol and bactrim. Mildly elevated, liver US 05/30/2024 showed normal gallbladder and hepatomegaly without lesions or evidence of obstructions. Hep panel negative. LFTs downtrended compared to 06/06/24. -Continue monitoring NEPHRO #WILL, improving #Mild hyponatremia #Hyperkalemia, resolved #Hyperphosphatemia #Hyponatremia, resolved #Non-anion gap respiratory acidosis with metabolic alkalosis Ddx: Prerenal WILL due to hypotension vs possible rhabdomyolysis vs drug toxicity (zosyn, vancomycin, bactrim) Unlikely rhabdomyolysis, CK was 511 06/06, did not uptrend. Urine output is >100 ml/hr, urine is yellow and clear. Possible underlying SIADH. Potassium 06/11/24 4.4. Plan: -Monitor CMP, repeat potassium - [place] - in case increasing hyperkalemia patient will need dialysis - Free water at 40ml/hr - NS at 75/hr URO #No active problems -Tijerina placed 06/05/2024 HEME #Microcytic anemia Clinically no evidence of bleeding. Iron panel shows iron 17, TIBC 262, iron saturation 6, unsaturated iron binding 245. Peripheral blood film confirms microcytic hypochromic anemia with target cells. Patient hemoglobins stable, does not require transfusion at the moment, PT, INR, PTT within normal range. Also daily lab draws contributing. Plan: -Monitor H&H. Transfusing for Hgb <7 #Leukocytosis, resolved In the setting of likely infection and corticosteroids. Elevated WBC on 06/09/24 Plan: -Treatment of pneumonia as above #Thrombocytosis, resolved Likely reactive. -Continue to monitor ENDO #No active problems ID #Bilateral pneumocystis pneumonia #Healthcare associated pneumonia Negative studies: Cocci IgM and IgG, Hepatitis panel, Syphilis, Legionella, H.flu, N.meningitidis, Strep B, Strep pneumoniae, COVID, RSV, Flu A & B. Indeterminate: TB quantiferon GOLD Positive: Beta-(1,3)-D-Glucan Silver stain of BA washings positive for Pneumocystis. HIV PCR positive. Patient completed 5 day course of azithromycin. Plan: -Continue Bactrim - continue Zosyn -ID following, appreciate reccomendations - HAART: truvada and raltegravir 06/09/24-present ? Tylenol as needed for fevers. MSK #No active problems SKIN #No active problems DVT prophylaxis: lovenox GI prophylaxis: Pantoprazole 40 mg IV qday Diet: tube feeds Nepro Tijerina: Present (06/05- ) Lines: Peripheral IV, Right radial arterial line. Antibiotics: Bactrim, Zosyn, micafungin CODE STATUS: FULL CODE Reason for ICU care: Acute hypoxic respiratory failure secondary to bilateral pneumonia/ARDS Plan of care discussed with attending Dr. Justin Pinzon PGY-1 Attending Provider Attestation/Addendum Patient seen and examined with above resident, Denise Pinzon MD. I agree with the findings, assessment, and plan of care as documented except for any differences below. Patient continues to have stable gas exchange however weaning secondary to mentation remains difficult. Patient on empiric antibiotics appropriately and will continue to monitor closely for new infection given how severely immunocompromised he has been. Patient is on ART therapy. Patient also followed by ID. Appreciate their input. Patient may ultimately require tracheostomy if he does not continue to improve. This has been discussed extensively with the patient's family but will continue to aggressively try to wean with multiple different drug regimens to limit the need for IV opiates and IV sedation. Patient is tolerating pressure support trials and is rested overnight on pressure control for ventilator synchrony. We are minimizing sedation and and considering use of Precedex intermittently to help with weaning. Patient's renal function continues to show significant improvement with resolution of hyperkalemia. Minimizing fluid intake to optimize fluid status which has likely been the most rapid contributor to the is improved gas exchange in previous few days. Patient remains on appropriate treatment for his pneumocystis pneumonia with dual use of micafungin and Bactrim. Will continue on steroid taper as planned otherwise. Total critical care time: I personally spent 40 minutes for review of physiologic parameters, directing plan of care throughout the day, counseling patient's family at bedside, and coordination of care with other specialists. This is exclusive of time spent teaching housestaff or performing any separate billable procedures. Patient continues to require critical care services for acute hypoxic respiratory failure secondary to pneumocystis jiroveci pneumonia and possible superimposed bacterial pneumonia with high risk for morbidity and mortality given immunosuppression secondary to newly diagnosed HIV infection.
[2024-06-14] MEDS: QUEtiapine FUMARATE 25 MG TABLET PO (20:55)
[2024-06-14 22:05] LABS: Cryptococcal Source SERUM
[2024-06-15] VITALS (35 sets, daily range): BP systolic 93–212; BP diastolic 39–84; PULSE 82–119; RESP 24–52; TEMP 36–38.9; O2SAT 85–96
[2024-06-15] MEDS: MORPHINE SULF INJ 10 MG/ML VIAL 4 MG IV (01:34)
[2024-06-15] MEDS: MIDAZOLAM INJ 1 MG/ML VIAL 2 ML 4 MG IV ×3 (02:22→09:50)
[2024-06-15] MEDS: DEXMEDETOMIDINE 400 MCG IVPB 400 MCG/100 ML BAG 26.32 MCG IV ×2 (02:40→06:43)
[2024-06-15] MEDS: ACETAMINOPHEN SOL 325 MG/10 ML UDC 975 MG PO (02:56)
--- NOTE | 2024-06-15 03:37 | XR_ITS ---
Examination: AP chest single view Technique: AP portable semiupright chest single view Exam date and time: June 15, 2024 0348 hrs. Comparison June 14, 2024 Indications: Hypoxic respiratory failure, ARDS postintubation this week Findings: Severe bilateral lung opacity Normal heart size Orogastric tube in the stomach tip below the level of the film Endotracheal tube tip 4.7 cm above sunil No pneumothorax Impression: No change in severe bilateral pneumonia ARDS pattern
[2024-06-15] MEDS: PROPOFOL 1,000 MG IVPB 1,000 MG/100 ML VIAL 22.56 MG IV ×2 (03:48→13:20)
[2024-06-15 03:51] LABS: Base Excess 3 (-3-3); HCO3 27 mEq/L (20-26); Inspired Oxygen, FIO2 100 %; O2 Saturation 94 % (91-98); PCO2 37 mmHg (32.0-48.0); PO2 71 mmHg (83-108); pH, Arterial 7.46 (7.35-7.45)
[2024-06-15] MEDS: KETAMINE 50 MG/ML VIAL 10 ML IVP ×2 (03:51→07:55)
[2024-06-15 03:54] LABS: Allen Test Not Performed; Puncture Site Arterial Line
[2024-06-15 05:52] LABS: Basophils % (Auto) 0 % (0-2.5); Eosinophils # (Auto) 0.1 Thou/mm3 (0.0-0.5); Eosinophils % (Auto) 1 % (0-10); Hematocrit 31.2 % (41.0-53.0); Hemoglobin 10.1 g/dL (13.5-16.0); Immature Granulocytes % (Auto) 1 % (0-0); Lymphocytes # (Auto) 0.3 Thou/mm3 (1.0-4.8); Lymphocytes % (Auto) 2 % (10-50); Mean Corpuscular HGB Conc 32.4 g/dl (31.0-37.0); Mean Corpuscular Hemoglobin 23.5 pg (25.0-35.0); Mean Corpuscular Volume 73 fL (80-100); Monocytes # (Auto) 0.2 Thou/mm3 (0.0-0.8); Monocytes % (Auto) 1 % (0-12); Neutrophils # (Auto) 13.5 Thou/mm3 (1.8-7.7); Neutrophils % (Auto) 95 % (37-80); Nucleated Red Blood Cell # 0.06 Thou/mm3 (0.00-0.00); Nucleated Red Blood Cell % 0 /100 WBC (0); Platelet Count 209 Thou/mm3 (140-440); RDW Standard Deviation 45.6 fL (35.1-43.9); White Blood Count 14.3 Thou/mm3 (3.8-10.6)
[2024-06-15] MEDS: MORPHINE SULF LIQD 10 MG/5 ML UDC 15 MG PO (06:00)
[2024-06-15] MEDS: TRIMETHOPRIM PO ×4 (06:06→21:02)
[2024-06-15] MEDS: PIPER/TAZO 3.375 GM 50 ML IV (06:06)
[2024-06-15] MEDS: SULFA PO ×4 (06:06→21:02)
[2024-06-15 06:26] LABS: CMV Antibody (IgG) >10.00 U/mL; CMV Antibody (IgM) <30.00 AU/mL
[2024-06-15 06:29] LABS: Cryptococcal Ag Screen NOT DETECTED
[2024-06-15 06:36] LABS: Alanine Aminotransferase 420 U/L (10-49); Albumin, Serum 3.2 gm/dL (3.5-5.0); Alkaline Phosphatase 142 U/L (46-116); Anion Gap 9 (7-16); Aspartate Amino Transferase 303 U/L (0-34); BUN/Creatinine Ratio 28 Ratio (12-20); Bilirubin,Total 1.3 mg/dL (0.3-1.2); Blood Urea Nitrogen 28 mg/dL (9-23); Calcium 8.5 mg/dL (8.3-10.6); Calcium (Corrected) 9.1 mg/dL (8.5-10.1); Carbon Dioxide 25.4 mMol/L (20.0-31.0); Chloride 97 mMol/L (98-107); Estimated Creatinine Clearance 93.6 mL/min (>60); Globulin 3.3 gm/dL (2.3-3.5); Glucose 80 mg/dL (74-106); Osmolality,Calculated 267 (275-295); Potassium 4.3 mMol/L (3.4-5.1); Sodium 131 mMol/L (136-145); Total Protein 6.5 gm/dL (5.7-8.2); eGFR > 60 See Note
--- NOTE | 2024-06-15 08:19 | XR_ITS ---
Examination: Abdomen sonogram, Limited Date and time of exam: June 15, 2024 1049 hours INDICATIONS: Elevated liver function tests including bilirubin on laboratory examination today Technique: Real-time brandon scale transabdominal sonographic images of the upper abdomen obtained. Findings: Negative for gallstones Gallbladder wall 0.43 cm no edema Common bile duct 0.4 cm Pancreas obscured by bowel gas Liver 18.8 cm smooth contour no focal liver lesions Normal hepatopedal portal venous flow Patent IVC IMPRESSION: Negative for cholelithiasis Borderline thickening gallbladder wall, clinical correlation advised, consider HIDA scan or MRCP follow-up to exclude cholecystitis as clinically warranted
[2024-06-15] MEDS: SENNA TABLET 1 TAB PO (08:30)
[2024-06-15] MEDS: bisacodyL 5 MG TABEC PO (08:30)
[2024-06-15] MEDS: POLYETHYLENE GLYCOL 17 GM PACKET PO (08:31)
[2024-06-15] MEDS: EMTRICITABINE 200 MG/TENOFOVIR 300 MG TAB (NON-FORM) 1 TAB PO (08:31)
[2024-06-15] MEDS: PANTOPRAZOLE INJ 40 MG VIAL IVP (08:32)
[2024-06-15] MEDS: PATIROMER CALCIUM 8.4 GM PACKET (NON-FORM) NG (08:32)
[2024-06-15] MEDS: ENOXAPARIN SOD INJ 40 MG/0.4 ML SYRINGE SC (08:32)
[2024-06-15] MEDS: MICAFUNGIN SODIUM INJ 100 MG in SODIUM CHLORIDE 0.9% 100 ML IV (08:32)
[2024-06-15] MEDS: [UNRECOGNIZED DRUG - REMARK] 400 MG NG ×2 (08:33→21:02)
--- NOTE | 2024-06-15 09:15 | XR_ITS ---
Examination: AP chest single view Technique one AP portable semiupright chest single view Exam date and time: June 15, 2024 0939 hours Comparison June 15, 2024 0348 hours INDICATIONS: Inpatient with hypoxia, abdomen respiratory distress syndrome tachypnea, postintubation FINDINGS: Severe bilateral lung opacity Endotracheal tube tip 5.3 cm above sunil Orogastric tube in the stomach No significant cardiac enlargement No pneumothorax IMPRESSION: Severe bilateral pneumonia ARDS pattern again noted No pneumothorax
[2024-06-15] MEDS: MORPHINE SULF INJ 10 MG/ML VIAL 5 MG IVP ×2 (09:25→09:50)
[2024-06-15] MEDS: PROPOFOL 1,000 MG IVPB 1,000 MG/100 ML VIAL 20.304 MG IV (09:29)
[2024-06-15] MEDS: CISATRACURIUM 20 MG IV ×4 (09:33→13:00)
[2024-06-15] MEDS: fentaNYL 2,500 MCG/250 ML BAG 2,500 MCG/250 ML BAG 10 MCG IV (10:12)
[2024-06-15 10:25] LABS: Base Excess -3 (-3-3); HCO3 31 mEq/L (20-26); Inspired Oxygen, FIO2 100 %; O2 Saturation 88 % (91-98); PCO2 122 mmHg (32.0-48.0); PO2 91 mmHg (83-108)
[2024-06-15 10:29] LABS: pH, Arterial 7.01 (7.35-7.45)
[2024-06-15 10:30] LABS: Allen Test Not Performed; Puncture Site Arterial Line
[2024-06-15] MEDS: Sodium Bicarb Inj 8.4% SYR 50 ML SYRINGE IV ×3 (10:43→12:40)
[2024-06-15] MEDS: CISATRACURIUM INJ 200 MG in SODIUM CHLORIDE 0.9% 500 ML 500 ML 11.794 MG IV (11:13)
[2024-06-15] MEDS: Sodium Bicarb 8.4% 50ml Vial* 88.23 MEQ in DEXTROSE 5%-WATER 500 ML 100 MEQ IV ×2 (11:15→18:00)
[2024-06-15] MEDS: ACETAMINOPHEN 500 MG TABLET 1000 MG PO (11:25)
--- NOTE | 2024-06-15 11:51 | PD.INTPROC ---
Procedures Procedure Date / Time 06/15/24 1151 Arterial Line Size (Gauge): 20 Bronchoscopy Bronscopy indication(s): removal of secretions (ETT confirmation) Informed consent obtained from: proc. done emergently Time out done and the following verified: correct patient, side and site, procedure, patient position and implants and/or equipment Oxygen delivery: via mechanical vent. Vocal cords: other (via ETT, not visualized) Trachea: mid appears normal and distal appears normal Paige: sharp in angle RUL & subsegmental branches: mucosa appears normal RML & subsegmental branches: mucosa appears normal RLL & subsegmental branches: mucosa appears normal JORGE & subsegmental branches: mucosa appears normal LLL & subsegmental branches: mucosa appears normal and purulent secretions EBL: 0 Patient tolerated procedure: well Complications: No
[2024-06-15 12:28] LABS: Base Excess -2 (-3-3); HCO3 32 mEq/L (20-26); Inspired Oxygen, FIO2 100 %; O2 Saturation 88 % (91-98); PCO2 130 mmHg (32.0-48.0); PO2 88 mmHg (83-108)
[2024-06-15 12:31] LABS: Allen Test Not Performed; Puncture Site Arterial Line
--- NOTE | 2024-06-15 12:50 | PC.SS ---
Update: Patient remains intubated/sedated. Patient continues to be paralyzed. No skin issues. Feedings have been paused. No pressors administered.
--- NOTE | 2024-06-15 13:06 | ESPR_ITS ---
Subjective Subjective Interval history: sputum cx noted. mixed. coag neg and vre. static w/o vre rx. prednisone looks like it was changed to methylpred. so this may be iris too. but he is again proned on 100% O2 again Exam Vital Signs Temp Pulse Resp BP Pulse Ox O2 Del Method O2 Flow Rate 99.0 F 119 H 29 H 177/68 H 88 L Mechanical Ventilation 40 06/15/24 11:25 06/15/24 11:12 06/14/24 18:12 06/15/24 11:12 06/15/24 11:12 06/15/24 04:00 06/09/24 12:16 FiO2 100 06/15/24 11:12 Narrative Exam hope he makes it. he is 39 yoa.no guarantees. likely to need a trach. Objective - Internal Medicine Labs 06/15/24 05:30 06/15/24 05:30 Labs: Laboratory Results - last 24 hr 06/07/24 06/10/24 06/15/24 12:06 12:50 03:45 WBC RBC Hgb Hct MCV MCH MCHC RDW Std Deviation Plt Count Neut % (Auto) Lymph % (Auto) [place] % (Auto) Eos % (Auto) Baso % (Auto) Neut # (Auto) Lymph # (Auto) [place] # (Auto) Eos # (Auto) Baso # (Auto) Immature Gran # (Auto) Absolute Nucleated RBC Immature Gran % Nucleated RBC % Puncture Site Arterial Line ABG pH 7.46 H ABG pCO2 37 ABG pO2 71 L ABG HCO3 27 H ABG O2 Saturation 94 ABG Base Excess 3 FiO2 100 Sodium Potassium Chloride Carbon Dioxide Anion Gap BUN Creatinine Estim Creat Clear Calc eGFR BUN/Creatinine Ratio Glucose Calculated Osmolality Calcium Corrected Calcium Total Bilirubin AST ALT Alkaline Phosphatase Total Protein Albumin Globulin Albumin/Globulin Ratio CSF Source SERUM Cryptococcal Ag (Latex) NOT DETECTED CMV IgG Ab >10.00 H CMV IgM Ab <30.00 06/15/24 06/15/24 06/15/24 05:30 10:17 12:20 WBC 14.3 H RBC 4.30 L Hgb 10.1 L Hct 31.2 L MCV 73 L MCH 23.5 L MCHC 32.4 RDW Std Deviation 45.6 H Plt Count 209 D Neut % (Auto) 95 H Lymph % (Auto) 2 L [place] % (Auto) 1 Eos % (Auto) 1 Baso % (Auto) 0 Neut # (Auto) 13.5 H Lymph # (Auto) 0.3 L [place] # (Auto) 0.2 Eos # (Auto) 0.1 Baso # (Auto) 0.0 Immature Gran # (Auto) 0.10 H Absolute Nucleated RBC 0.06 H Immature Gran % 1 H Nucleated RBC % 0 Puncture Site Arterial Line Arterial Line ABG pH 7.01 L* D 7.00 L* ABG pCO2 122 H* D 130 H* ABG pO2 91 D 88 ABG HCO3 31 H 32 H ABG O2 Saturation 88 L 88 L ABG Base Excess -3 -2 FiO2 100 100 Sodium 131 L Potassium 4.3 Chloride 97 L Carbon Dioxide 25.4 Anion Gap 9 BUN 28 H Creatinine 1.0 Estim Creat Clear Calc 93.6 eGFR > 60 BUN/Creatinine Ratio 28 H Glucose 80 Calculated Osmolality 267 L Calcium 8.5 Corrected Calcium 9.1 Total Bilirubin 1.3 H D AST 303 H ALT 420 H Alkaline Phosphatase 142 H D Total Protein 6.5 Albumin 3.2 L Globulin 3.3 Albumin/Globulin Ratio 1.0 L CSF Source Cryptococcal Ag (Latex) CMV IgG Ab CMV IgM Ab ABG Interpretation ABG results: 05/27/24 05/29/24 05/29/24 23:37 10:44 22:08 ABG pH 7.51 H 7.50 H 7.48 H ABG pCO2 28 L 32 32 ABG pO2 75 L 79 L 145 H D ABG HCO3 23 25 24 ABG O2 Saturation 96 95 98 ABG Base Excess 0 2 1 05/30/24 05/31/24 06/04/24 08:45 04:54 02:10 ABG pH 7.47 H 7.45 7.45 ABG pCO2 35 38 36 ABG pO2 86 D 82 L 139 H ABG HCO3 26 26 25 ABG O2 Saturation 97 96 98 ABG Base Excess 2 2 1 06/04/24 06/05/24 06/05/24 18:16 11:36 12:59 ABG pH 7.44 7.11 L* D 7.20 L ABG pCO2 36 94 H* D 68 H D ABG pO2 80 L D 150 H D 121 H D ABG HCO3 24 30 H 26 ABG O2 Saturation 94 97 97 ABG Base Excess 0 -2 -3 1106/06/24 06/06/24 19:25 04:13 15:27 ABG pH 7.22 L 7.27 L 7.30 L ABG pCO2 64 H 57 H 60 H ABG pO2 122 H 153 H D 74 L D ABG HCO3 26 26 29 H ABG O2 Saturation 97 99 H 92 ABG Base Excess -3 -2 2 06/07/24 06/07/24 06/08/24 03:55 09:59 04:20 ABG pH 7.41 D 7.43 7.45 ABG pCO2 56 H 55 H 50 H ABG pO2 293 H D 78 L D 75 L ABG HCO3 36 H 37 H 35 H ABG O2 Saturation 99 H 95 94 ABG Base Excess 10 H 11 H 10 H 06/08/24 06/08/24 06/08/24 11:05 11:50 13:18 ABG pH 7.17 L* D 7.10 L* 7.15 L* ABG pCO2 95 H* D 115 H* D 88 H* D ABG pO2 89 75 L 72 L ABG HCO3 34 H 36 H 31 H ABG O2 Saturation 92 84 L 85 L ABG Base Excess 3 4 H 0 06/08/24 06/09/24 06/09/24 17:02 01:33 03:15 ABG pH 7.18 L* 7.22 L 7.27 L ABG pCO2 50 H D 91 H* D 82 H* ABG pO2 82 L 105 D 86 ABG HCO3 19 L 37 H 38 H ABG O2 Saturation 93 97 95 ABG Base Excess -9 L 7 H 9 H 06/09/24 06/09/24 06/10/24 05:08 12:52 04:40 ABG pH 7.31 L 7.33 L 7.30 L ABG pCO2 75 H* 57 H D 78 H* D ABG pO2 97 158 H D 65 L D ABG HCO3 38 H 30 H 38 H ABG O2 Saturation 97 99 H 90 L ABG Base Excess 10 H 3 9 H 06/10/24 06/11/24 06/12/24 09:40 04:19 04:15 ABG pH 7.27 L 7.35 7.48 H D ABG pCO2 88 H* D 86 H* 63 H D ABG pO2 65 L 70 L 76 L ABG HCO3 40 H 48 H 47 H ABG O2 Saturation 89 L 93 95 ABG Base Excess 10 H 19 H 21 H 06/13/24 06/14/24 06/15/24 07:22 04:32 03:45 ABG pH 7.46 H 7.48 H 7.46 H ABG pCO2 56 H 40 D 37 ABG pO2 80 L 64 L 71 L ABG HCO3 39 H 30 H 27 H ABG O2 Saturation 95 92 94 ABG Base Excess 13 H 6 H 3 06/15/24 06/15/24 10:17 12:20 ABG pH 7.01 L* D 7.00 L* ABG pCO2 122 H* D 130 H* ABG pO2 91 D 88 ABG HCO3 31 H 32 H ABG O2 Saturation 88 L 88 L ABG Base Excess -3 -2 Assessment & Plan A&P Narrative pneumonia. cocci neg. procal not neg.pjp on bal noted. hiv. infection, newly discovered in a heterosexual man. can not r/o ivdu resp failure, hypoxic jo ann, resolved. acute febrile illness. cause uncertain. he has hiv, gf needs to be tested. ok to start rx with whatever the facility has available.I will see him again on Thursday. ok for bactrim and steroids for now. ok forrx of what you may be afraid of empirically, if bc pos, please remove hd line if possible. crytpo ag pending too. ordered the other day, am not sure what happened to it. spoke with lab and test was apparently for csf and was changed to serum. as noted before, not every one survives, he is only 39, but is newly discovered to have a very bad disease that is easier to manage if caught earlier. ok to restart pred, but with fever, ok to add zyvox to regimen. for now. repeat cx noted. I see that prednisone was stopped. it is part of rx for pjp. see guidelines. pt on rx 14d now. ok to be off flucon as cd4 >100 Time Spent With Patient Time: Total time spent is greater than 50% in coordination of care (as documented) at patient's floor/unit and/or counseling patient:
[2024-06-15] MEDS: LINEZOLID 600 MG IVPB 600 MG/300 ML BAG 300 MG IV ×2 (14:02→21:01)
[2024-06-15] MEDS: METHADONE HCL 10 MG TABLET 5 MG NG (14:03)
[2024-06-15 14:30] LABS: Base Excess -1 (-3-3); HCO3 33 mEq/L (20-26); Inspired Oxygen, FIO2 100 %; O2 Saturation 87 % (91-98); PCO2 125 mmHg (32.0-48.0); PO2 82 mmHg (83-108)
[2024-06-15 14:40] LABS: Allen Test Not Performed; Puncture Site Arterial Line; pH, Arterial 7.03 (7.35-7.45)
[2024-06-15 15:17] LABS: Partial Thromboplastin Time 32.5 Seconds (22.0-36.0)
[2024-06-15] MEDS: MEROPENEM INJ 1,000 MG in SODIUM CHLORIDE 0.9% (P) 50 ML 100 MG IV ×2 (15:23→21:14)
[2024-06-15] MEDS: Heparin/D5w 25K 250 ML Ivpb 25,000 UNIT/250 ML BAG 13.608 UNIT IV (15:46)
[2024-06-15] MEDS: HEPARIN SOD INJ 5000 UNIT/ML VIAL 6050 UNIT IV (15:46)
[2024-06-15 16:04] LABS: Base Excess -1 (-3-3); HCO3 32 mEq/L (20-26); Inspired Oxygen, FIO2 100 %; O2 Saturation 93 % (91-98); PCO2 121 mmHg (32.0-48.0); PO2 99 mmHg (83-108)
--- NOTE | 2024-06-15 16:04 | PD.NEPHPROG ---
Documentation for date of: 06/15/24 Subjective Subjective Interval history: 39-year-old male with no known previous past medical history who presented to [facility] on 05/27/2024 with a chief complaint of shortness of breath and cough. Patient had exhibited symptoms of chills, body aches, generalized weakness, fever, and night sweats progressively worsening over the prior weeks. He was admitted and initiated on empiric treatment for community-acquired pneumonia and cocci pneumonia, although cocci IgM returned negative twice this admission. Over the course of his hospitalization patient's oxygen requirements continued to worsen as he became more hypoxic worse with activity and movement. Pt is admitted to ICU with repiratory failure. Nephrology consulted for dialysis for recurrent hyperkalemia. Pt is seen and examined. Pt remains intubated Exam Vital Signs Temp Pulse Resp BP Pulse Ox O2 Del Method O2 Flow Rate 98.9 F 109 H 29 H 157/79 H 87 L Mechanical Ventilation 40 06/15/24 13:41 06/15/24 14:08 06/14/24 18:12 06/15/24 14:08 06/15/24 14:08 06/15/24 04:00 06/09/24 12:16 FiO2 100 06/15/24 14:08 Narrative Exam ,Pt is intubated Chest ventilatory sounds abdomen soft ext trace edema Objective Labs 06/19/24 04:48 06/19/24 04:48 Labs: Laboratory Results - last 24 hr 06/07/24 06/10/24 06/15/24 12:06 12:50 03:45 WBC RBC Hgb Hct MCV MCH MCHC RDW Std Deviation Plt Count Neut % (Auto) Lymph % (Auto) [place] % (Auto) Eos % (Auto) Baso % (Auto) Neut # (Auto) Lymph # (Auto) [place] # (Auto) Eos # (Auto) Baso # (Auto) Immature Gran # (Auto) Absolute Nucleated RBC Immature Gran % Nucleated RBC % APTT Puncture Site Arterial Line ABG pH 7.46 H ABG pCO2 37 ABG pO2 71 L ABG HCO3 27 H ABG O2 Saturation 94 ABG Base Excess 3 FiO2 100 Sodium Potassium Chloride Carbon Dioxide Anion Gap BUN Creatinine Estim Creat Clear Calc eGFR BUN/Creatinine Ratio Glucose Calculated Osmolality Calcium Corrected Calcium Total Bilirubin AST ALT Alkaline Phosphatase Total Protein Albumin Globulin Albumin/Globulin Ratio CSF Source SERUM Cryptococcal Ag (Latex) NOT DETECTED CMV IgG Ab >10.00 H CMV IgM Ab <30.00 06/15/24 06/15/24 06/15/24 05:30 10:17 12:20 WBC 14.3 H RBC 4.30 L Hgb 10.1 L Hct 31.2 L MCV 73 L MCH 23.5 L MCHC 32.4 RDW Std Deviation 45.6 H Plt Count 209 D Neut % (Auto) 95 H Lymph % (Auto) 2 L [place] % (Auto) 1 Eos % (Auto) 1 Baso % (Auto) 0 Neut # (Auto) 13.5 H Lymph # (Auto) 0.3 L [place] # (Auto) 0.2 Eos # (Auto) 0.1 Baso # (Auto) 0.0 Immature Gran # (Auto) 0.10 H Absolute Nucleated RBC 0.06 H Immature Gran % 1 H Nucleated RBC % 0 APTT Puncture Site Arterial Line Arterial Line ABG pH 7.01 L* D 7.00 L* ABG pCO2 122 H* D 130 H* ABG pO2 91 D 88 ABG HCO3 31 H 32 H ABG O2 Saturation 88 L 88 L ABG Base Excess -3 -2 FiO2 100 100 Sodium 131 L Potassium 4.3 Chloride 97 L Carbon Dioxide 25.4 Anion Gap 9 BUN 28 H Creatinine 1.0 Estim Creat Clear Calc 93.6 eGFR > 60 BUN/Creatinine Ratio 28 H Glucose 80 Calculated Osmolality 267 L Calcium 8.5 Corrected Calcium 9.1 Total Bilirubin 1.3 H D AST 303 H ALT 420 H Alkaline Phosphatase 142 H D Total Protein 6.5 Albumin 3.2 L Globulin 3.3 Albumin/Globulin Ratio 1.0 L CSF Source Cryptococcal Ag (Latex) CMV IgG Ab CMV IgM Ab 06/15/24 06/15/24 14:20 14:53 WBC RBC Hgb Hct MCV MCH MCHC RDW Std Deviation Plt Count Neut % (Auto) Lymph % (Auto) [place] % (Auto) Eos % (Auto) Baso % (Auto) Neut # (Auto) Lymph # (Auto) [place] # (Auto) Eos # (Auto) Baso # (Auto) Immature Gran # (Auto) Absolute Nucleated RBC Immature Gran % Nucleated RBC % APTT 32.5 Puncture Site Arterial Line ABG pH 7.03 L* ABG pCO2 125 H* ABG pO2 82 L ABG HCO3 33 H ABG O2 Saturation 87 L ABG Base Excess -1 FiO2 100 Sodium Potassium Chloride Carbon Dioxide Anion Gap BUN Creatinine Estim Creat Clear Calc eGFR BUN/Creatinine Ratio Glucose Calculated Osmolality Calcium Corrected Calcium Total Bilirubin AST ALT Alkaline Phosphatase Total Protein Albumin Globulin Albumin/Globulin Ratio CSF Source Cryptococcal Ag (Latex) CMV IgG Ab CMV IgM Ab ABG Interpretation ABG results: 05/27/24 05/29/24 05/29/24 23:37 10:44 22:08 ABG pH 7.51 H 7.50 H 7.48 H ABG pCO2 28 L 32 32 ABG pO2 75 L 79 L 145 H D ABG HCO3 23 25 24 ABG O2 Saturation 96 95 98 ABG Base Excess 0 2 1 05/30/24 05/31/24 06/04/24 08:45 04:54 02:10 ABG pH 7.47 H 7.45 7.45 ABG pCO2 35 38 36 ABG pO2 86 D 82 L 139 H ABG HCO3 26 26 25 ABG O2 Saturation 97 96 98 ABG Base Excess 2 2 1 06/04/24 06/05/24 06/05/24 18:16 11:36 12:59 ABG pH 7.44 7.11 L* D 7.20 L ABG pCO2 36 94 H* D 68 H D ABG pO2 80 L D 150 H D 121 H D ABG HCO3 24 30 H 26 ABG O2 Saturation 94 97 97 ABG Base Excess 0 -2 -3 06/05/24 06/06/24 06/06/24 19:25 04:13 15:27 ABG pH 7.22 L 7.27 L 7.30 L ABG pCO2 64 H 57 H 60 H ABG pO2 122 H 153 H D 74 L D ABG HCO3 26 26 29 H ABG O2 Saturation 97 99 H 92 ABG Base Excess -3 -2 2 06/07/24 06/07/24 06/08/24 03:55 09:59 04:20 ABG pH 7.41 D 7.43 7.45 ABG pCO2 56 H 55 H 50 H ABG pO2 293 H D 78 L D 75 L ABG HCO3 36 H 37 H 35 H ABG O2 Saturation 99 H 95 94 ABG Base Excess 10 H 11 H 10 H 06/08/24 06/08/24 06/08/24 11:05 11:50 13:18 ABG pH 7.17 L* D 7.10 L* 7.15 L* ABG pCO2 95 H* D 115 H* D 88 H* D ABG pO2 89 75 L 72 L ABG HCO3 34 H 36 H 31 H ABG O2 Saturation 92 84 L 85 L ABG Base Excess 3 4 H 0 06/08/24 06/09/24 06/09/24 17:02 01:33 03:15 ABG pH 7.18 L* 7.22 L 7.27 L ABG pCO2 50 H D 91 H* D 82 H* ABG pO2 82 L 105 D 86 ABG HCO3 19 L 37 H 38 H ABG O2 Saturation 93 97 95 ABG Base Excess -9 L 7 H 9 H 06/09/24 06/09/24 06/10/24 05:08 12:52 04:40 ABG pH 7.31 L 7.33 L 7.30 L ABG pCO2 75 H* 57 H D 78 H* D ABG pO2 97 158 H D 65 L D ABG HCO3 38 H 30 H 38 H ABG O2 Saturation 97 99 H 90 L ABG Base Excess 10 H 3 9 H 06/10/24 06/11/24 06/12/24 09:40 04:19 04:15 ABG pH 7.27 L 7.35 7.48 H D ABG pCO2 88 H* D 86 H* 63 H D ABG pO2 65 L 70 L 76 L ABG HCO3 40 H 48 H 47 H ABG O2 Saturation 89 L 93 95 ABG Base Excess 10 H 19 H 21 H 06/13/24 06/14/24 06/15/24 07:22 04:32 03:45 ABG pH 7.46 H 7.48 H 7.46 H ABG pCO2 56 H 40 D 37 ABG pO2 80 L 64 L 71 L ABG HCO3 39 H 30 H 27 H ABG O2 Saturation 95 92 94 ABG Base Excess 13 H 6 H 3 06/15/24 06/15/24 06/15/24 10:17 12:20 14:20 ABG pH 7.01 L* D 7.00 L* 7.03 L* ABG pCO2 122 H* D 130 H* 125 H* ABG pO2 91 D 88 82 L ABG HCO3 31 H 32 H 33 H ABG O2 Saturation 88 L 88 L 87 L ABG Base Excess -3 -2 -1 Assessment & Plan Assessment and plan (1) Acute hyperkalemia: Status: Acute Assessment and plan: Potassium is stable no need for dialysis monitor closely Procedures Arterial Line Size (Gauge): 20
[2024-06-15 16:20] LABS: Allen Test Not Performed; Puncture Site Arterial Line; pH, Arterial 7.03 (7.35-7.45)
--- NOTE | 2024-06-15 16:57 | PD.RESPRO ---
Documentation for date of: 06/15/24 Subjective Subjective Interval history: 06/10/24: Patient is doing better today with ABG for this morning revealing a CO2 of 78 and a pH of 7.30. We are allowing for permissive hypercapnia and O2 65. Revealing PA/FiO2 ratio of 147. Overnight sedation was changed from fentanyl to morphine we will continue to titrate up morphine based on his hemodynamic stability. Patient became hypertensive and we suspect he requires more sedation so we will increase morphine. We will continue with paralytic use for 1 more day and discontinue tomorrow after 3 total days of paralytics. Patient's vancomycin was discontinued by infectious disease due to the fact that he remains on Bactrim. Dr Hope did suggest ordering a G6PD test to assess for G6PD deficiency in case we do switch to dapsone. Continuing with Bactrim, micafungin, and Zosyn. Transaminitis is continuing to improve and patient remains on Nepro with tube feeds at 40 cc an hour with low amounts of residuals. Last bowel movement was noted to be June 08 and he is receiving GI prophylaxis with Protonix. Hyperkalemia this morning appear to have been resolved with most recent potassium noted at 4.6. We will repeat another potassium at 2 PM to see if patient will require further hemodialysis but we will also initiate Lasix 40 mg IV push twice daily for diuresis in hopes that that will contribute to decreasing his hyperkalemia and help improve his potassium. Continues to remain anemic with iron deficiency anemia but hemoglobin is stable and is not a candidate for blood transfusion or iron repletion currently. 06/11/24: Patient was seen and examined by the bedside. No acute overnight events. No fevers overnight. Patient oxygen requirements decreased a little bit, his ABGs showed pH 7.35 slightly improved oxygenation. P:F ratio is 175. Chest Xray showed improvement compared to yesterday. Patient had a urine output of 5.3L, negative balance -4.4L. Cisatracurium is discontinued today, will try to slowly titrate down the sedation. Continues to receive bactrim, zosyn, micafungin. Repeat blood cultures, urine cultures are negative. ETT secretions grew GPC. ID is following patient. 06/12/24: Patient was seen and examined by the bedside. No acute overnight events. No fevers overnight. Patient had an awakening trial today due to his improvement in oxygenation. He was able to continue on spontaneous mode PS for a few hours, but due to agitation he was sedated again, but continued on spontaneous PS. ABGs showed pH 7.48, pCO2 63, pO2 78. PF ratio is 217. Will try awakening trial tomorrow again. Will keep his sedated throughout the night while on AC. Added oral morphine to decrease respiratory distress and sedation, will try to downtitrate propofol. Discontinued fluconazole. 06/13/24: Patient was seen and examined by the bedside. No fevers overnight. Saturates well on FiO2 of 50. Overnight patient was double stacking, pulling hide tidal volume on volume control, received midazolam 2 mg pushes for sedation, was also started on Precedex drip. Will try awakening trial today. Continues to be on morphine drip and oral morphine. In the morning was switched to PS 8, PEEP 10, FiO2 50. Will continue Bactrim and micafungin, length of course 21 days. Continue Zosyn for HAP. Sedation was turned off for awakening trial, patient was able to breath spontaneously, but did not follow commands. He became agitated, was inhaling high VT, BP went up to 180/88, was sedated again. Will switch him back to VC mode overnight. Family was advised to spend time with him. 06/14/24: Patient was seen and examined by the bedside. No fevers overnight. Saturates well on FiO2 of 60. Overnight patient was on PC, RR 14 but was tachypneic, double stacking, pulling high tidal volume, received midazolam 4 mg pushes for sedation, continued to be on Precedex drip and propofol. Continues to be on oral morphine, morphine drip was discontinued. Patient started on SPONT PS in the morning again. Sedation was turned off for awakening trial, patient was able to breath spontaneously, but did not follow commands, does not open his eyes to the speech. He became agitated, was inhaling high VT, was sedated again.Due to his mental status, patient is not a candidate for extubation at the moment. Will switch him back to VC mode overnight. Family was advised to spend time with him, to talk to him and support. His ABGs showed improvement of hypercapnia and respiratory acidosis. Will continue Bactrim and micafungin, length of course 21 days. Continue Zosyn for HAP. 06/15/24: Overnight, the patient was noted to be tachypneic to the 50s on volume control, propofol and dexmedetomine for sedation, had been off of morphine drip. He required 2 pushes of midazolam 4 mg IV, 1 push of morphine 4 mg IV, and a push of ketamine 50 mg. Patient also had fevers up to 102.0 and received acetaminophen overnight. This morning patient continued to have tachypneic episodes to the 40s. Dr. Anderson used bedside Glidescope to visualize placement of ET tube which was in correct positioning and performed small amounts of suctioning. CXR was retaken which showed possible worsening right lower infiltrate. He was placed on 100% FiO2. The patient was ultimately fully sedated and paralyzed again, throughout the day given ketamine 50 mg x1, morphine 5 mg x2, midazolam 4 mg x2, extra pushes of 60 mg propofol, and cisatracurium 20 mg x4. Fentanyl was restarted, oral morphine was stopped. Methadone 5 mg x1 was also given for possible morphine withdrawal. Propofol was uptitrated. Goal for tonight is fentanyl at 150 and propofol at 50 with RASS -5. He received another acetaminophen 1000 mg. 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 Meropenem will also be continued for broad coverage. Second organism is staph haemolyticus which is a commensal organism and per ID no concern for infectious source, regardless linezolid is shown as sensitive for both. Continue with micafungin prophylactically and Bactrim, Solu-Medrol for PCP. New blood cultures and ET cultures sent today. ABGs showed continued severe respiratory acidosis pH 7.03, pCO2 121, pO2 99, HCO3 32, q4h checks are scheduled, and the patient has been placed on bicarb drip and also received 50 mEq sodium bicarb x3 pushes. Patient was proned around 13:00 and will be turned in the morning. Patient was also started on heparin drip for suspected PE. Doppler was not completed due to patient proned position. A right upper quadrant US was also done today due to uptrended Tbili to 1.3 and AST 303, ALT 420, US showed no cholelithiasis and no obvious sign of cholecystitis. Exam Vital Signs Temp Pulse Resp BP Pulse Ox O2 Del Method O2 Flow Rate 98.9 F 109 H 29 H 157/79 H 87 L Mechanical Ventilation 40 06/15/24 13:41 06/15/24 14:08 06/14/24 18:12 06/15/24 14:08 06/15/24 14:08 06/15/24 04:00 06/09/24 12:16 FiO2 100 06/15/24 14:08 Narrative Exam Physical Exam General: Well nourished male, sedated. HEENT: Normocephalic, atraumatic, mucous membranes moist, ET tube in place. Heart: Tachycardic rate and regular rhythm, no murmurs. Lungs: Bilateral rhonchi present, worse than yesterday, significant work of breathing with chest heaves when off sedation. Abdomen: Soft, nondistended, nontender, positive bowel sounds. ?No guarding or rebound tenderness. Neurologic: Patient sedated, unable to follow commands or track objects with eyes when sedation weaned. Extremities: No edema. Skin: No rash or ecchymoses. Objective Labs 06/17/24 05:42 06/17/24 05:42 Labs: Laboratory Results - last 24 hr 06/07/24 06/10/24 06/15/24 12:06 12:50 03:45 WBC RBC Hgb Hct MCV MCH MCHC RDW Std Deviation Plt Count Neut % (Auto) Lymph % (Auto) [place] % (Auto) Eos % (Auto) Baso % (Auto) Neut # (Auto) Lymph # (Auto) [place] # (Auto) Eos # (Auto) Baso # (Auto) Immature Gran # (Auto) Absolute Nucleated RBC Immature Gran % Nucleated RBC % APTT Puncture Site Arterial Line ABG pH 7.46 H ABG pCO2 37 ABG pO2 71 L ABG HCO3 27 H ABG O2 Saturation 94 ABG Base Excess 3 FiO2 100 Sodium Potassium Chloride Carbon Dioxide Anion Gap BUN Creatinine Estim Creat Clear Calc eGFR BUN/Creatinine Ratio Glucose Calculated Osmolality Calcium Corrected Calcium Total Bilirubin AST ALT Alkaline Phosphatase Total Protein Albumin Globulin Albumin/Globulin Ratio CSF Source SERUM Cryptococcal Ag (Latex) NOT DETECTED CMV IgG Ab >10.00 H CMV IgM Ab <30.00 06/15/24 06/15/24 06/15/24 05:30 10:17 12:20 WBC 14.3 H RBC 4.30 L Hgb 10.1 L Hct 31.2 L MCV 73 L MCH 23.5 L MCHC 32.4 RDW Std Deviation 45.6 H Plt Count 209 D Neut % (Auto) 95 H Lymph % (Auto) 2 L [place] % (Auto) 1 Eos % (Auto) 1 Baso % (Auto) 0 Neut # (Auto) 13.5 H Lymph # (Auto) 0.3 L [place] # (Auto) 0.2 Eos # (Auto) 0.1 Baso # (Auto) 0.0 Immature Gran # (Auto) 0.10 H Absolute Nucleated RBC 0.06 H Immature Gran % 1 H Nucleated RBC % 0 APTT Puncture Site Arterial Line Arterial Line ABG pH 7.01 L* D 7.00 L* ABG pCO2 122 H* D 130 H* ABG pO2 91 D 88 ABG HCO3 31 H 32 H ABG O2 Saturation 88 L 88 L ABG Base Excess -3 -2 FiO2 100 100 Sodium 131 L Potassium 4.3 Chloride 97 L Carbon Dioxide 25.4 Anion Gap 9 BUN 28 H Creatinine 1.0 Estim Creat Clear Calc 93.6 eGFR > 60 BUN/Creatinine Ratio 28 H Glucose 80 Calculated Osmolality 267 L Calcium 8.5 Corrected Calcium 9.1 Total Bilirubin 1.3 H D AST 303 H ALT 420 H Alkaline Phosphatase 142 H D Total Protein 6.5 Albumin 3.2 L Globulin 3.3 Albumin/Globulin Ratio 1.0 L CSF Source Cryptococcal Ag (Latex) CMV IgG Ab CMV IgM Ab 06/15/24 06/15/24 06/15/24 14:20 14:53 15:55 WBC RBC Hgb Hct MCV MCH MCHC RDW Std Deviation Plt Count Neut % (Auto) Lymph % (Auto) [place] % (Auto) Eos % (Auto) Baso % (Auto) Neut # (Auto) Lymph # (Auto) [place] # (Auto) Eos # (Auto) Baso # (Auto) Immature Gran # (Auto) Absolute Nucleated RBC Immature Gran % Nucleated RBC % APTT 32.5 Puncture Site Arterial Line Arterial Line ABG pH 7.03 L* 7.03 L* ABG pCO2 125 H* 121 H* ABG pO2 82 L 99 ABG HCO3 33 H 32 H ABG O2 Saturation 87 L 93 ABG Base Excess -1 -1 FiO2 100 100 Sodium Potassium Chloride Carbon Dioxide Anion Gap BUN Creatinine Estim Creat Clear Calc eGFR BUN/Creatinine Ratio Glucose Calculated Osmolality Calcium Corrected Calcium Total Bilirubin AST ALT Alkaline Phosphatase Total Protein Albumin Globulin Albumin/Globulin Ratio CSF Source Cryptococcal Ag (Latex) CMV IgG Ab CMV IgM Ab ABG Interpretation ABG results: 05/27/24 05/29/24 05/29/24 23:37 10:44 22:08 ABG pH 7.51 H 7.50 H 7.48 H ABG pCO2 28 L 32 32 ABG pO2 75 L 79 L 145 H D ABG HCO3 23 25 24 ABG O2 Saturation 96 95 98 ABG Base Excess 0 2 1 05/30/24 05/31/24 06/04/24 08:45 04:54 02:10 ABG pH 7.47 H 7.45 7.45 ABG pCO2 35 38 36 ABG pO2 86 D 82 L 139 H ABG HCO3 26 26 25 ABG O2 Saturation 97 96 98 ABG Base Excess 2 2 1 06/04/24 06/05/24 06/05/24 18:16 11:36 12:59 ABG pH 7.44 7.11 L* D 7.20 L ABG pCO2 36 94 H* D 68 H D ABG pO2 80 L D 150 H D 121 H D ABG HCO3 24 30 H 26 ABG O2 Saturation 94 97 97 ABG Base Excess 0 -2 -3 06/05/24 06/06/24 06/06/24 19:25 04:13 15:27 ABG pH 7.22 L 7.27 L 7.30 L ABG pCO2 64 H 57 H 60 H ABG pO2 122 H 153 H D 74 L D ABG HCO3 26 26 29 H ABG O2 Saturation 97 99 H 92 ABG Base Excess -3 -2 2 06/07/24 06/07/24 06/08/24 03:55 09:59 04:20 ABG pH 7.41 D 7.43 7.45 ABG pCO2 56 H 55 H 50 H ABG pO2 293 H D 78 L D 75 L ABG HCO3 36 H 37 H 35 H ABG O2 Saturation 99 H 95 94 ABG Base Excess 10 H 11 H 10 H 06/08/24 06/08/24 06/08/24 11:05 11:50 13:18 ABG pH 7.17 L* D 7.10 L* 7.15 L* ABG pCO2 95 H* D 115 H* D 88 H* D ABG pO2 89 75 L 72 L ABG HCO3 34 H 36 H 31 H ABG O2 Saturation 92 84 L 85 L ABG Base Excess 3 4 H 0 06/08/24 06/09/24 06/09/24 17:02 01:33 03:15 ABG pH 7.18 L* 7.22 L 7.27 L ABG pCO2 50 H D 91 H* D 82 H* ABG pO2 82 L 105 D 86 ABG HCO3 19 L 37 H 38 H ABG O2 Saturation 93 97 95 ABG Base Excess -9 L 7 H 9 H 06/09/24 06/09/24 06/10/24 05:08 12:52 04:40 ABG pH 7.31 L 7.33 L 7.30 L ABG pCO2 75 H* 57 H D 78 H* D ABG pO2 97 158 H D 65 L D ABG HCO3 38 H 30 H 38 H ABG O2 Saturation 97 99 H 90 L ABG Base Excess 10 H 3 9 H 06/10/24 06/11/24 06/12/24 09:40 04:19 04:15 ABG pH 7.27 L 7.35 7.48 H D ABG pCO2 88 H* D 86 H* 63 H D ABG pO2 65 L 70 L 76 L ABG HCO3 40 H 48 H 47 H ABG O2 Saturation 89 L 93 95 ABG Base Excess 10 H 19 H 21 H 06/13/24 06/14/24 06/15/24 07:22 04:32 03:45 ABG pH 7.46 H 7.48 H 7.46 H ABG pCO2 56 H 40 D 37 ABG pO2 80 L 64 L 71 L ABG HCO3 39 H 30 H 27 H ABG O2 Saturation 95 92 94 ABG Base Excess 13 H 6 H 3 06/15/24 06/15/24 06/15/24 10:17 12:20 14:20 ABG pH 7.01 L* D 7.00 L* 7.03 L* ABG pCO2 122 H* D 130 H* 125 H* ABG pO2 91 D 88 82 L ABG HCO3 31 H 32 H 33 H ABG O2 Saturation 88 L 88 L 87 L ABG Base Excess -3 -2 -1 06/15/24 15:55 ABG pH 7.03 L* ABG pCO2 121 H* ABG pO2 99 ABG HCO3 32 H ABG O2 Saturation 93 ABG Base Excess -1 Quality Measures Quality Measures sepsis Current suspected stage: sepsis Possible source: pulmonary, GI tract/intra-abdominal, genitourinary and skin/soft tissue Blood cultures ordered: yes Antibiotic ordered: Yes Assessment & Plan Assessment Current Active Medications: Generic Name Dose Route Start Last Admin Trade Name Freq PRN Reason Stop Dose Admin Acetaminophen 975 mg 06/09/24 14:27 06/15/24 02:56 Acetaminophen Munira 325 Mg/10 Ml Udc PO 06/26/24 12:10 975 mg Q6H PRN Administration Pain 1-3 and Fever >101.5 Albuterol/Ipratropium 3 ml 06/05/24 11:40 06/09/24 22:18 Albuterol/Ipratropium (Duoneb) Rt Munira 3 Ml Nebu INH 07/05/24 14:59 3 ml Q4HRRT PRN Administration Wheezing Bisacodyl 5 mg 06/14/24 17:15 06/15/24 08:30 Bisacodyl 5 Mg Tabec PO 07/14/24 17:14 5 mg QDAY JUAN JOSE Administration Protocol Dextrose 25 ml 06/06/24 08:20 Dextrose 50%-Water Inj 50 Ml Syringe IV 07/06/24 08:19 Q15MIN PRN BG 50-70 responsive npo pt Dextrose 50 ml 06/06/24 08:20 Dextrose 50%-Water Inj 50 Ml Syringe IV 07/06/24 08:19 Q15MIN PRN BG <50 OR BG <70 & pt unresponsive Emtricitabine/Tenofovir 1 tab 06/09/24 09:00 06/15/24 08:31 Emtricitabine 200 Mg/Tenofovir 300 Mg Tab (Non-Form) PO 06/16/24 08:59 1 tab QDAY JUAN JOSE Administration Enoxaparin Sodium 40 mg 06/07/24 09:00 06/15/24 08:32 Enoxaparin Sod Inj 40 Mg/0.4 Ml Syringe SC 06/21/24 08:59 40 mg QDAY JUAN JOSE Administration Glucagon 1 mg 06/06/24 08:20 Glucagon Inj 1 Mg Vial IM Q15MIN PRN BG <70, and no IV access Micafungin Sodium 100 mg/ 100 mls @ 100 mls/hr 06/09/24 09:00 06/15/24 08:32 Sodium Chloride IV 06/24/24 08:59 100 mls/hr QDAY JUAN JOSE Administration Meropenem 1,000 mg/ Sodium 50 mls @ 100 mls/hr 06/15/24 14:00 06/15/24 15:23 Chloride IV 06/22/24 13:59 100 mls/hr Q8HR JUAN JOSE Administration Cisatracurium Besylate 200 mg/ 520 mls @ 11.794 mls/hr 06/15/24 10:41 06/15/24 14:22 Sodium Chloride IV 07/15/24 10:40 1.75 mcg/kg/min .Q24H PRN 20.639 mls/hr Per Protocol Titration Protocol 1 MCG/KG/MIN Sodium Bicarbonate 88.23 meq/ 588.23 mls @ 100 mls/hr 06/15/24 10:41 06/15/24 11:15 Dextrose IV 07/15/24 10:40 100 mls/hr .[id number] JUAN JOSE Administration Linezolid 600 mg in 300 mls @ 300 mls/hr 06/15/24 11:31 06/15/24 14:02 Zyvox Ivpb IV 06/22/24 11:30 300 mls/hr Q12HR JUAN JOSE Administration Heparin Sodium/Dextrose 25,000 unit in 250 mls @ 13.608 mls/hr 06/15/24 14:45 06/15/24 15:46 Heparin In D5w Ivpb IV 06/29/24 14:44 18 units/kg/hr .[id number] JUAN JOSE 13.608 mls/hr Administration Protocol 18 UNITS/KG/HR Propofol 1,000 mg in 100 mls @ 2.268 mls/hr 06/15/24 15:14 Diprivan Ivpb IV 07/09/24 14:25 .Q24H PRN PER PROTOCOL Protocol 5 MCG/KG/MIN Fentanyl Citrate 2,500 mcg in 250 mls @ 2.5 mls/hr 06/15/24 15:14 Sublimaze Inj 2,500 Mcg/250 Ml Bag IV 06/20/24 10:01 .Q24H PRN PER PROTOCOL Protocol 25 MCG/HR Methylprednisolone Sodium Succinate 40 mg 06/10/24 09:00 06/15/24 08:32 Methylprednisolone Sod Succ 40 Mg Vial IVP 06/17/24 08:59 40 mg QDAY JUAN JOSE Administration Midazolam HCl 4 mg 06/13/24 16:21 06/15/24 09:27 Midazolam Inj 1 Mg/Ml Vial 2 Ml IV 06/17/24 21:59 4 mg Q2HR PRN Administration agitation, causing vent desynchrony Ondansetron HCl 4 mg 05/29/24 21:51 06/04/24 17:44 Ondansetron Inj 2 Mg/Ml Inj 2 Ml IV 06/28/24 21:50 4 mg Q6HR PRN Administration NAUSEA OR VOMITING Protocol Pantoprazole Sodium 40 mg 06/06/24 09:00 06/15/24 08:32 Pantoprazole Inj 40 Mg Vial IVP 07/06/24 08:59 40 mg QDAY JUAN JOSE Administration Patiromer 8.4 gm 06/09/24 10:45 06/15/24 08:32 Patiromer Calcium 8.4 Gm Packet (Non-Form) NG 07/09/24 10:44 8.4 gm QDAY JUAN JOSE Administration Polyethylene Glycol 17 gm 06/14/24 17:15 06/15/24 08:31 Polyethylene Glycol 17 Gm Packet PO 07/14/24 17:14 17 gm QDAY JUAN JOSE Administration Quetiapine Fumarate 25 mg 06/13/24 21:00 06/14/24 20:55 Quetiapine Fumarate 25 Mg Tablet PO 07/13/24 20:59 25 mg HS JUAN JOSE Administration Raltegravir 400 mg 06/09/24 09:00 06/15/24 08:33 Raltegravir 100 Mg Chew (Non-Form) NG 06/16/24 08:59 400 mg BID JUAN JOSE Administration Sennosides 1 tab 06/11/24 09:00 06/15/24 08:30 Senna Tablet PO 07/11/24 08:59 1 tab QDAY JUAN JOSE Administration Protocol Trimethoprim/Sulfamethoxazole 40 ml 06/15/24 06:00 06/15/24 14:02 Trimethoprim 40 Mg/Sulfa 200 Mg Susp 5 Ml PO 06/22/24 05:59 40 ml QID JUAN JOSE Administration Plan Hospital Course: This is a 39-year-old gentleman with no known previous past medical history who initially presented to [facility] on 05/27/[facility]24 with a chief complaint of shortness of breath and cough, with associated chills, body aches, generalized weakness, fever, and night sweats beginning weeks prior but progressively worsening over a few days. ED work-up revealed extensive bilateral diffuse infiltrate, patient met 4/4 SIRS, was requiring 4L O2, and was subsequently admitted for acute hypoxic respiratory failure secondary to bilateral community-acquired pneumonia of unknown etiology. Procal was only slightly elevated at 0.61 and he was first empirically treated with levofloxacin from 05/27-05/29 for suspicion of atypical pneumonia and fluconazole for cocci coverage. Patient quickly progressed to requiring Hi-Flow oxygen and had multiple rapid response alerts for increasing oxygen requirements and recurrent fevers. He was monitored in ICU from 05/30-05/31, at that time started on steroids and antibiotics were escalated to azithromycin, doxycycline, and Zosyn as well as high dose steroids. He seemed to have improved and was downgraded at that time without needing intubation. ID and Pulmonology were consulted, and the patient was started on Bactrim to cover pneumocystis pneumonia. Several tests which had been sent were negative, including Cocci IgM and IgG, Legionella, and all blood, urine, sputum cultures had been negative at that point. HIV test was reported to be a preliminary positive, and sent out for confirmation studies but result had significant delay. Patient had reported a single sexual partner with his fiance for the last 5 years, last contact few weeks before admission, and denied IV drug usage. He did endorse 1 pack per day smoking history since teenage years, and occasional alcohol and marijuana. He had tattoos done as a young teenager, none recent. He had history of temporary incarceration. After the downgrade, patient developed worsening dyspnea on movement, desaturation, and complaints of work of breathing despite Hi-Flow at 100% FiO2. He was upgraded to ICU again on 06/05 for intubation and bronchoscopy, which showed normal-appearing mucosa, and BAL sample was sent for culture and cytology. Patient was given paralysis and managed with vent settings for ARDS. At this point, autoimmune studies including Rh factor, DANIEL, ANCA, Anti-proteinase 3, Anti-myeloperoxidase, Complement C3/C4c all returned negative. Absolute CD4 count was low at 116. On 06/07, in light of still unconfirmed diagnosis and critical status, patient's named [id number] and decision-maker, sister Francesca, was asked to bring forward any other additional history about patient's substance use, particularly any vape pens or supplements/substances he may have used to investigate for possible Vape-Associated Lung Injury. Sister brought in patient's bag of belongings from home containing vials of trenbolone (anabolic steroid) and testosterone and needles, which sister reports may have been purchased from [facility]. There were additional male enhancement supplements, synthetic urine kit, marijuana wax pen, and cigarette boxes. 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 On 06/08, HIV viral load came back at 5,660,000 copies. HIV 1 antibody was positive. HIV 2 negative. On 06/09, patient was started on antiretrovirals, Truvada and raltegravir. Patient also started having significant hyperkalemia, requiring multiple pushes of insulin, calcium gluconate, and kayexylate, eventually needing dialysis on 06/06, 06/08, and 06/09. Suspected Bactrim adverse effect, Bactrim was continued however to treat PCP. Patient has continued on mechanical ventilation. While he initially succeeded at weaning to spontaneous mode with Pressure Support of 8, FiO2 40% on sedation, it has been a challenge to wean sedation off successfully. Patient would become increasingly tachypneic, with work of breathing and desaturation, and has been unable have sedation low enough to follow commands, eye track, or make purposeful movements. On 06/15, patient had spiked fevers, WBC worsened, and patient had tachypneia again with worsening respiratory acidosis. Patient was proned. PE was suspected and heparin drip was started. ET sputum culture from 06/09 grew VRE enterococcus casseliflavus therefore linezolid and meropenem was started, Zosyn was discontinued. Patient is planned for tracheostomy by 06/20/2024 (Day 16 of intubation) if unable to wean from the vent. NEURO #Acute encephalopathy, secondary to prolonged sedation 06/05/2024 Patient was intubated, sedated, and paralyzed for ARDS. Prior to intubation, patient was awake, alert, and oriented x3, following commands, conversational. Initially, fentanyl was discontinued 06/09 as a sedative due to concern for tachyphylaxis, restarted 06/15 Morphine drip (given in place of fentanyl) was discontinued 06/14 Cisatracurium was discontinued 06/11, restarted 06/15 Plan: -Discontinued oral morphine 15 mg TID -Goal sedation: RASS -5 -Fentanyl at 150 mcg/hr -Propofol at 50 mcg/kg/min -Cisatracurium to target 2/4 ToF twitches -Midazolam 4 mg IV prn for breakthrough agitation #Fever 06/15 Fever overnight with spike at 102.0, acetaminophen 975 mg given with resolution of fever. Possible new ventilator-associated infection? Plan: -Additional acetaminophen 1000 mg NG given today -Acetaminophen as needed -New blood cultures sent 06/15 -New ET culture sent 06/15 CARDIO #Sinus tachycardia Tachycardia most likely secondary to respiratory distress and agitation. 06/15: Possible new sepsis? Patient with new fevers, increased tachypneia. Low threshold of suspicion for PE, therefore heparin drip was started 06/15. Plan: -Continuous telemetry -Continue sedation with RASS goal -5 for now -Doppler US right upper extremity due to visible swelling -Consider CTPA when stable #Septic shock, resolved Secondary to severe extensive bilateral pneumonia. Patient was on norepinephrine 06/06-06/10. Currently off pressors. 06/06/2024 Echo was read EF 55-60% 06/09/2024 Blood cultures negative 06/09/2024 Urine culture negative 06/09/2024 ET culture POSITIVE for Staph haemolyticus, Entercoccus casseliflavus vancomycin-resistant PULM #Acute hypoxic respiratory failure Secondary to #Bilateral pneumocystis jirovecii pneumonia #Healthcare associated pneumonia #Ventilator associated pneumonia Patient presented with dyspnea and cough, requiring 4L NC on first ED evaluation, and history of chills, body aches, generalized weakness, fever, and night sweats progressively worsening over the prior weeks. Approx 20-pack year smoking history, occasional marijuana. 05/27/2024 Received ceftriaxone/azithromycin in ED. Started on levofloxacin as an inpatient. 05/28/2024 Started on fluconazole (discontinued 06/12). Started requiring Hi-Flow. 05/30/2024 Upgraded to ICU for close monitoring. Started on doxycycline. Started on azithromycin (completed 5-days). Started on Zosyn (discontinued 06/15). Started Solu-Medrol. 06/01/2024 Downgraded. Started on Bactrim (discontinued doxy). 06/05/2024 Intubation of the patient, return to ICU. Suspected ARDS. Bronchoscopy showed normal-appearing mucosa and no mucous plugging, hemorrhage, or friability bilaterally. Bronchoalveolar washings culture were negative for growth. Fungal cultures are pending. 06/07/2024 Bronchoalveolar lavage cytology shows Pneumocystis jirovecii. Also other fungi, possibly Kassandra. Kassandra is most likely a contaminant. Blood mnza-L-onfdlm also positive. 06/08/2024 HIV quant 5.66 million copies. HIV 1 positive confirmed. Patient was proned due to desaturation event. 06/09/2024 Started on prophylactic micafungin. Started Truvada and raltegravir HAART. Patient's decision-maker, sister Francesca informed of HIV+ and diagnosis. 06/14/2024 ETT sputum cultures from 06/09 positive for Staphylococcus hemolyticus, ID stated that this is not a respiratory pathogen, no need to treat. 06/15/2024 Above #2 pathogen showed vancomycin-resistant enterococcus casseliflavus, started linezolid. Zosyn stopped and meropenem started. 06/15/2024 Increased tachypnea, vent overbreathing, paralyzed and proned. Plan: -Continue prone tonight, turn tomorrow AM -Ventilation on volume control, saturation to be maintained >90%, increased PEEP, increased RR, FiO2 at 100% wean if tolerated -ABG q4h -Continue Bactrim 06/01/24 - to be continued through 06/21 for 21 days of treatment -Discontinued Zosyn 05/30/24-06/15/24 -Started meropenem 1000 mg q8h 06/15/24- -Started linezolid 600 mg q12h 06/15/24- -Continue micafungin 100 mg qday 06/09/24- -Fungal cultures from BAL pending -DuoNebs q4h as needed -New blood cultures sent 06/15 -New ET culture sent 06/15 #ARDS #Respiratory acidosis Patient continues to have increased oxygen demands with worsening bilateral infiltrates on CXR. Will maintain ARDS ventilation protocol. 06/08/24 P:F ratio 89/1=89. Severe ARDS. 06/09/24 P:F ratio 97/44=009. Moderate ARDS. 06/10/24 P:F ratio 65/81=684 06/11/24 P:F ratio 70/72=934 06/12/24 P:F ratio 217 06/13/24 P:F ratio 160 06/15/24 P:F ratio 91, ABGs showing pH in the 7.00s, elevated pCO2 110-120s. Plan: -VC overnight, maintain PEEP 12-14, FiO2 to maintain saturation 92% -Maintain peak plateau <30 -Improve hypercapnia -Restarted paralytic -Follow up ABG q4h -Methylprednisolone 40 mg qday GI Prophylaxis: Pantoprazole 40 mg IV qday #Elevated LFTs, improving Likely due to propofol and bactrim. Mildly elevated, liver US 05/30/2024 showed normal gallbladder and hepatomegaly without lesions or evidence of obstructions. Hep panel negative. LFTs downtrended compared to 06/06/24. 06/15/2024 Floyd in LFTs with AST 303, ALT 420, Tbili 1.3, therefore right upper quadrant US ordered, negative for cholecystitis/cholelithiasis. No obvious changes on physical exam. Plan: -Continue monitoring NEPHRO #WILL, resolved #Mild hyponatremia #Hyperkalemia #Hyperphosphatemia, resolved Ddx: Prerenal WILL due to hypotension vs possible rhabdomyolysis vs drug toxicity (zosyn, vancomycin, bactrim) Unlikely rhabdomyolysis, CK was 511 06/06, did not uptrend. Urine output is >100 ml/hr, urine is yellow and clear. Possible underlying SIADH. Potassium 06/11/24 4.4. Plan: -Continue Veltassa 8.4 gm qday for potassium chelation -Nephrology Dr. Song is following for as-needed dialysis due to hyperkalemia -Continue free water at 40 ml/hr -Maintain euvolemia -Monitor CMP, especially potassium #Metabolic alkalosis #Respiratory acidosis ABGs are showing acidemia with elevation of pCO2, indicative of primary respiratory acidosis. There is an underlying metabolic alkalosis due to the given bicarb being greater than the expected compensatory bicarb. pH 7.10, pCO2 118, pO2 102, HCO3 37 Plan: -Patient was given 150 mEq bicarb in pushes x3 throughout the day 06/15 for acidemia -Bicarb drip was started -AM lactate URO #No active problems -Tijerina placed 06/05/2024 for strict I&O monitoring HEME #Leukocytosis Fluctuating WBC. In the setting of likely infection, inflammation, and corticosteroids. Plan: -Treatment of pneumonia as above #Microcytic anemia Stable, has not required any transfusions this admission thus far. Clinically no evidence of bleeding. Iron panel shows iron 17, TIBC 262, iron saturation 6, unsaturated iron binding 245. Peripheral blood film confirms microcytic hypochromic anemia with target cells. Also daily lab draws contributing. Plan: -Monitor H&H. Transfusing for Hgb <7 #Thrombocytosis, resolved Likely reactive. -Continue to monitor ENDO #No active problems -Blood glucose on chemistry panels in acceptable range ID #Bilateral pneumocystis pneumonia #Healthcare associated pneumonia #Ventilator associated pneumonia Negative studies: Cocci IgM and IgG, Hepatitis panel, Syphilis, Legionella, H.flu, N.meningitidis, Strep B, Strep pneumoniae, COVID, RSV, Flu A & B. TB quantiferon GOLD-indeterminate, however 06/05 AFB negative, CMV IgM, cryptococcal antigen negative. G6PD levels came back normal for consideration of dapsone alternative to Bactrim if needed. Patient completed 5 day course of azithromycin, 16 days of Zosyn. See Pulm for timeline of antimicrobial coverage. Plan: -Continue Bactrim 06/01/24 - to be continued through 06/21 for 21 days of treatment -Discontinued Zosyn 05/30/24-06/15/24 -Started meropenem 1000 mg q8h 06/15/24- -Started linezolid 600 mg q12h 06/15/24- -Continue micafungin 100 mg qday 06/09/24- -Fungal cultures from BAL pending -New blood cultures sent 06/15 -New ET culture sent 06/15 #AIDS/HIV Patient has Stage 4 HIV, AIDS-defining illness with opportunistic infection. 06/07/2024 Bronchoalveolar lavage cytology shows Pneumocystis jirovecii. Also other fungi, possibly Kassandra. Kassandra is most likely a contaminant. Blood qiwm-V-yhrsmq also positive. 06/08/2024 HIV quant 5.66 million copies. HIV 1 positive confirmed. 06/09/2024 Patient's decision maker, Francesca, was informed of diagnosis due to critical state of patient. Absolute CD4 count 87 and 22% on 06/02. History/risk factors: History of injection anabolic androgenic steroid and testosterone use, possible unclean needles. History of incarceration (unknown time). Tattoos received as a teenager. Has 1 female sexual partner last 5 years, denies others. -Continue HAART: emtricitabine / tenofovir (Truvada) and raltegravir initiated 06/09/24 -Patient is not aware of his diagnosis as he has been intubated and sedated before results returned. Will require complete education and counseling on the disease if his mental status and clinical condition improves. MSK #Elevated creatine kinase Checked CK due to acute WILL, however now resolved. Unlikely to be rhabdo, patient producing adequate clear urine. Most likely elevated due to paralytic use and bedbound status. 06/06 511 06/08 206 06/10 220 Plan: -Continue to monitor urine output and kidney function SKIN #No active problems DVT prophylaxis: Lovenox 40 subQ qday GI prophylaxis: Pantoprazole 40 mg IV qday Diet: Tube feeds Nepro Tijerina: Present (06/05- ) Lines: Peripheral IV, Right radial arterial line. Antibiotics: Bactrim, meropenem, linelozid, micafungin CODE STATUS: FULL CODE Reason for ICU care: Acute hypoxic respiratory failure secondary to bilateral pneumonia/ARDS Patient plan of care was discussed with the attending physician, Dr. Anderson. Jennifer Velasco, PGY-2 Attending Provider Attestation/Addendum Patient seen and examined with above resident, Jennifer Velasco MD. I agree with the findings, assessment, and plan of care as documented except for any differences below. Patient continued to be weaned from sedation and mechanical ventilation the previous 2 to 3 days. However developed new fevers and likely new ventilator associated pneumonia. Tracheal aspirate completed and patient started on broad-spectrum antibiotics once again for typical organisms seen in healthcare associated infections. Will follow-up tracheal aspirate for additional regimen narrowing. Infectious diseases following and is assisting with this. Patient is gas exchange worsened this morning requiring reinitiation of paralytics. Despite this patient continued to be significantly hypoxic and more importantly hypercapnic suggesting large volume of space despite high minute ventilation. Patient does have significant right upper extremity swelling which is likely DVT which was confirmed by ultrasound. We have empirically started on heparin drip. He is too unstable for CTA at this point to exclude presence of pulmonary embolism. Alternatively may be significant shunt secondary to the recruitment despite large volumes during his pressure support trials. Patient did undergo bronchoscopy at bedside, see my separate note. Significant secretions left lower lobe noted and aspirated with patency of all airways. We also confirmed ET tube is in adequate position and not obstructed. Patient placed on lung protective settings at 6 mL/kg of ideal body weight for tidal volume. Respiratory rate adjusted to ensure adequate expiration. Chest film shows worsening of infiltrates though this is not significant compared to prior. Patient fortunately continues to have good renal function. Keeping up with fluid input, will start on bicarb drip to help increase to neutralize pH into a safer range while we allow time for metabolic compensation for respiratory acidosis. Remains off vasopressor support at this time. Will plan for also CT imaging of the head as he has been difficult to wean with sedation with significant agitation that he has been moving all extremities as far as we can tell during these trials. S continue suspect acute encephalopathy secondary to the severity of his illness overall and slow weaning despite trying multiple different meds to medication regiment. Patient's family was updated at bedside including need for repeat proning towards the end of the day to optimize gas exchange. Patient will likely need this for the coming 24 to 48 hours to help rerecruit and optimize gas exchange. Will plan likely for tracheostomy early next week once we are able to stabilize. Patient's family is now agreeable to this and understands that we will not like to wean from sedation given his difficulties with adequate control. Total critical care time: I personally spent 90 minutes for review of physiologic parameters, directing plan of care throughout the day including frequent adjustments in sedation and mechanical ventilation, and counseling patient's family extensively at bedside. This is exclusive of time spent teaching housestaff or performing any separate billable procedures.
[2024-06-15] MEDS: PROPOFOL 1,000 MG IVPB 1,000 MG/100 ML VIAL 18.144 MG IV ×2 (17:12→22:04)
[2024-06-15] MEDS: fentaNYL 2,500 MCG/250 ML BAG 2,500 MCG/250 ML BAG 15 MCG IV (19:00)
[2024-06-15 20:46] LABS: Base Excess 2 (-3-3); HCO3 34 mEq/L (20-26); Inspired Oxygen, FIO2 100 %; O2 Saturation 97 % (91-98); PCO2 116 mmHg (32.0-48.0); PO2 117 mmHg (83-108)
[2024-06-15 20:48] LABS: Allen Test Not Performed; Puncture Site Arterial Line; pH, Arterial 7.08 (7.35-7.45)
[2024-06-15] MEDS: QUEtiapine FUMARATE 25 MG TABLET PO (21:02)
[2024-06-15 22:33] LABS: Partial Thromboplastin Time 61.3 Seconds (22.0-36.0)
[2024-06-16] VITALS (33 sets, daily range): BP systolic 0–165; BP diastolic 0–89; PULSE 86–114; RESP 22–30; TEMP 35.4–37.5; O2SAT 94–100; BMI 26.0
[2024-06-16] MEDS: Sodium Bicarb 8.4% 50ml Vial* 88.23 MEQ in DEXTROSE 5%-WATER 500 ML 100 MEQ IV ×4 (00:43→21:29)
[2024-06-16 00:44] LABS: Base Excess 4 (-3-3); HCO3 37 mEq/L (20-26); O2 Saturation 96 % (91-98); PCO2 118 mmHg (32.0-48.0); PO2 102 mmHg (83-108)
[2024-06-16 00:47] LABS: Allen Test Not Performed; Puncture Site Arterial Line
[2024-06-16 00:48] LABS: Inspired Oxygen, FIO2 80 %
[2024-06-16 01:47] LABS: Alanine Aminotransferase 403 U/L (10-49); Albumin, Serum 3.3 gm/dL (3.5-5.0); Alkaline Phosphatase 164 U/L (46-116); Anion Gap 0 (7-16); Aspartate Amino Transferase 196 U/L (0-34); BUN/Creatinine Ratio 37 Ratio (12-20); Bilirubin,Total 1.1 mg/dL (0.3-1.2); Blood Urea Nitrogen 33 mg/dL (9-23); Calcium 8.5 mg/dL (8.3-10.6); Calcium (Corrected) 9.1 mg/dL (8.5-10.1); Carbon Dioxide 35.6 mMol/L (20.0-31.0); Chloride 98 mMol/L (98-107); Creatinine (Component) 0.9 mg/dL (0.6-1.3); Globulin 3.2 gm/dL (2.3-3.5); Glucose 184 mg/dL (74-106); Magnesium 2.3 mg/dL (1.6-2.6); Osmolality,Calculated 280 (275-295); Phosphorous 4.5 mg/dL (2.4-5.1); Potassium 5.1 mMol/L (3.4-5.1); Sodium 134 mMol/L (136-145); Total Protein 6.5 gm/dL (5.7-8.2); eGFR > 60 See Note
[2024-06-16 04:00] LABS: Partial Thromboplastin Time 49.5 Seconds (22.0-36.0)
[2024-06-16] MEDS: fentaNYL 2,500 MCG/250 ML BAG 2,500 MCG/250 ML BAG 15 MCG IV ×2 (05:30→19:37)
[2024-06-16] MEDS: PROPOFOL 1,000 MG IVPB 1,000 MG/100 ML VIAL 18.144 MG IV ×4 (05:30→20:20)
[2024-06-16 05:57] LABS: Lactate (Lactic Acid) 0.9 mMol/L (0.4-2.0)
[2024-06-16 05:59] LABS: Basophils % (Auto) 0 % (0-2.5); Eosinophils % (Auto) 0 % (0-10); Hematocrit 31.9 % (41.0-53.0); Hemoglobin 9.8 g/dL (13.5-16.0); Immature Granulocytes % (Auto) 1 % (0-0); Lymphocytes # (Auto) 0.2 Thou/mm3 (1.0-4.8); Lymphocytes % (Auto) 2 % (10-50); Mean Corpuscular HGB Conc 30.7 g/dl (31.0-37.0); Mean Corpuscular Hemoglobin 23.7 pg (25.0-35.0); Mean Corpuscular Volume 77 fL (80-100); Monocytes # (Auto) 0.3 Thou/mm3 (0.0-0.8); Monocytes % (Auto) 3 % (0-12); Neutrophils # (Auto) 8.8 Thou/mm3 (1.8-7.7); Neutrophils % (Auto) 93 % (37-80); Nucleated Red Blood Cell # 0.15 Thou/mm3 (0.00-0.00); Nucleated Red Blood Cell % 2 /100 WBC (0); Platelet Count 162 Thou/mm3 (140-440); RDW Standard Deviation 54.5 fL (35.1-43.9); Red Blood Count 4.13 Miln/mm3 (4.50-5.90); White Blood Count 9.4 Thou/mm3 (3.8-10.6)
[2024-06-16 06:03] LABS: Base Excess 9 (-3-3); HCO3 41 mEq/L (20-26); Inspired Oxygen, FIO2 97 %; O2 Saturation 99 % (91-98); PCO2 112 mmHg (32.0-48.0); PO2 155 mmHg (83-108)
[2024-06-16 06:13] LABS: pH, Arterial 7.17 (7.35-7.45)
[2024-06-16 06:14] LABS: Allen Test Not Performed; Puncture Site Arterial Line
[2024-06-16 06:25] LABS: Alanine Aminotransferase 354 U/L (10-49); Albumin, Serum 3.2 gm/dL (3.5-5.0); Alkaline Phosphatase 151 U/L (46-116); Anion Gap 2 (7-16); Aspartate Amino Transferase 160 U/L (0-34); BUN/Creatinine Ratio 30 Ratio (12-20); Bilirubin,Total 0.8 mg/dL (0.3-1.2); Blood Urea Nitrogen 36 mg/dL (9-23); Calcium (Corrected) 8.6 mg/dL (8.5-10.1); Carbon Dioxide 38.5 mMol/L (20.0-31.0); Chloride 95 mMol/L (98-107); Creatinine (Component) 1.2 mg/dL (0.6-1.3); Globulin 3.2 gm/dL (2.3-3.5); Glucose 54 mg/dL (74-106); Magnesium 2.4 mg/dL (1.6-2.6); Osmolality,Calculated 276 (275-295); Phosphorous 4.1 mg/dL (2.4-5.1); Sodium 135 mMol/L (136-145); Total Protein 6.4 gm/dL (5.7-8.2); eGFR > 60 See Note
--- NOTE | 2024-06-16 06:36 | XR_ITS ---
Examination: Abdomen AP single view Technique: AP portable supine abdomen, single view Exam date and time: June 16, 2024 0706 hrs. Indications: Post central line placement Findings: Right common femoral central line tip projects over the distal IVC Abundant stool throughout the colon No free air Orogastric tube tip in the stomach satisfactory position Impression: Right common femoral central line tip satisfactory position
[2024-06-16] MEDS: CISATRACURIUM INJ 200 MG in SODIUM CHLORIDE 0.9% 500 ML 500 ML 35.381 MG IV ×2 (06:58→15:31)
[2024-06-16] MEDS: HEPARIN SOD INJ 5000 UNIT/ML VIAL 3000 UNIT IV (07:18)
[2024-06-16] MEDS: MEROPENEM INJ 1,000 MG in SODIUM CHLORIDE 0.9% (P) 50 ML 100 MG IV ×3 (07:18→21:26)
[2024-06-16] MEDS: TRIMETHOPRIM PO ×4 (07:19→21:27)
[2024-06-16] MEDS: SULFA PO ×4 (07:19→21:27)
--- NOTE | 2024-06-16 08:00 | XR_ITS ---
Examination: Duplex scan of the upper extremity, unilateral right Date and time of exam: June 16, 2024 0738 hrs. Indications: Nonhealing blisters on the right arm with pain this week Technique: Duplex scan of the extremity veins using B-mode/grayscale imaging and Doppler spectral analysis and color flow Attention is directed to internal echogenicity, compression and augmentation involving these veins, color flow assessment, spectral analysis Findings: Major deep venous structures in the extremity demonstrate normal course and caliber. Positive for acute deep vein thrombus in the right subclavian and right axillary veins Impression: Positive for acute deep vein thrombus right subclavian right axillary veins
[2024-06-16] MEDS: POLYETHYLENE GLYCOL 17 GM PACKET PO (08:44)
[2024-06-16] MEDS: SENNA TABLET 1 TAB PO (08:44)
[2024-06-16] MEDS: PANTOPRAZOLE INJ 40 MG VIAL IVP (08:45)
[2024-06-16] MEDS: bisacodyL 5 MG TABEC PO (08:45)
[2024-06-16] MEDS: LINEZOLID 600 MG IVPB 600 MG/300 ML BAG 300 MG IV ×2 (08:46→21:26)
[2024-06-16 08:59] LABS: Base Excess 12 (-3-3); HCO3 41 mEq/L (20-26); O2 Saturation 98 % (91-98); PCO2 88 mmHg (32.0-48.0); PO2 98 mmHg (83-108); pH, Arterial 7.28 (7.35-7.45)
[2024-06-16 09:03] LABS: Allen Test Not Performed; Inspired Oxygen, FIO2 60 %; Puncture Site Site Not Noted
[2024-06-16] MEDS: PATIROMER CALCIUM 8.4 GM PACKET (NON-FORM) NG (09:35)
--- NOTE | 2024-06-16 09:45 | PRELIM_ITS ---
Right upper extremity venous Doppler ultrasound; June 16, 2024 at 0733 hoursClinical history: DVT .Technique: Duplex scan of the right arm performed utilizing, 2D grayscale imaging, Doppler spectral analysis and color flow Doppler with compression.Comparison: No prior study is available for comparis on. Findings:The right subclavian and axillary veins are noncompressible with minimal color flow.The internal jugular, brachial, radial and ulnar veins, and the cephalic and basilic veins are patent and demonstrate good compression.Impression:Partially occlusive thrombosis in the right subclavian and a xillary veins.Discussion Details: Results verbally communicated to : Dr. Anderson at 09:40 AM Report Electronically Signed By: Apollo Bartlett 06/16/2024 9:44:54 AM [EST]
--- NOTE | 2024-06-16 09:48 | XR_ITS ---
Examination: CTA chest with intravenous contrast 2-D reconstructions 3-D reconstructions, vascular Date and time of exam: June 16, 2024 12:10 PM Indications: Shortness of breath chest pain today, clinical diagnosis pulmonary embolus CTDI: vol (mGy) 174.8 DLP: (mGycm) 675 Technique: Multiple axial sections of the thorax have been obtained. 3 mm slice thickness, from below the hemidiaphragms to above the apices of the lungs. Mediastinal and lung density settings have been obtained. 2-D sagittal and coronal reconstructions. 3-D angiographic renderings, 3-D volume renderings, 3D post processing, vascular maximum intensity projections obtained. Contrast administered is 100 cc Isovue-[id number]. Low dose protocols were performed. One or more of the following dose reduction techniques were used; automated exposure control, adjustment of the mA and/or KV according to patient size, use of iterative reconstruction technique. Findings: No thoracic aortic aneurysm dilatation or dissection Pulmonary artery segments are not enlarged No pulmonary artery emboli Tracheal tube tip 4.5 cm above sunil Orogastric tube in the stomach Severe bilateral lung opacity especially prominent at the lung bases No visualized liver or splenic lesion No gallstones Aorta in the abdomen normal size No hydronephrosis Impression: Negative for pulmonary artery emboli Severe bilateral pneumonia ARDS
--- NOTE | 2024-06-16 10:20 | XR_ITS ---
Examination: CT brain head without contrast. 2-D sagittal coronal reconstructions Date and time of exam:June 16, 2024 1209 hrs. Indications: Altered mental status, diagnosis encephalopathy CTDI: vol (mGy):50.6 DLP: (mGycm):1105 Technique: Multiple CT axial sections of the brain have been obtained, 5 mm slice thickness. Contrast has not been administered. 2-D sagittal, coronal reconstructions have been obtained Low dose protocols were performed. One or more of the following dose reduction techniques were used; automated exposure control, adjustment of the mA and/or KV according to patient size, use of iterative reconstruction technique. Findings: No significant ventricular enlargement. Intra-axial or extra-axial hemorrhage density is not seen. No mass effect or midline shift Basal cisterns are not remarkable. Fourth ventricle is midline. Cranial vault intact. Impression: Negative for acute hemorrhage, mass effect or midline shift Acute bilateral mastoiditis Acute left maxillary sinusitis
[2024-06-16 10:51] LABS: Partial Thromboplastin Time 66.5 Seconds (22.0-36.0)
[2024-06-16] MEDS: Heparin/D5w 25K 250 ML Ivpb 25,000 UNIT/250 ML BAG 15.12 UNIT IV (11:29)
[2024-06-16] MEDS: MICAFUNGIN SODIUM INJ 100 MG in SODIUM CHLORIDE 0.9% 100 ML IV (12:38)
--- NOTE | 2024-06-16 12:51 | PCS.ST ---
pt remains intubated/sedated. Re-consult PERINATAL INSTRUCTOR once pt is extubated.
[2024-06-16] MEDS: [UNRECOGNIZED DRUG - REMARK] 400 MG NG ×2 (13:00→21:26)
[2024-06-16] MEDS: EMTRICITABINE 200 MG/TENOFOVIR 300 MG TAB (NON-FORM) 1 TAB PO (13:00)
[2024-06-16 16:30] LABS: Partial Thromboplastin Time 62.5 Seconds (22.0-36.0)
--- NOTE | 2024-06-16 19:04 | ESPR_ITS ---
Documentation for date of: 06/16/24 Subjective Subjective Interval history: 06/10/24: Patient is doing better today with ABG for this morning revealing a CO2 of 78 and a pH of 7.30. We are allowing for permissive hypercapnia and O2 65. Revealing PA/FiO2 ratio of 147. Overnight sedation was changed from fentanyl to morphine we will continue to titrate up morphine based on his hemodynamic stability. Patient became hypertensive and we suspect he requires more sedation so we will increase morphine. We will continue with paralytic use for 1 more day and discontinue tomorrow after 3 total days of paralytics. Patient's vancomycin was discontinued by infectious disease due to the fact that he remains on Bactrim. Dr Hope did suggest ordering a G6PD test to assess for G6PD deficiency in case we do switch to dapsone. Continuing with Bactrim, micafungin, and Zosyn. Transaminitis is continuing to improve and patient remains on Nepro with tube feeds at 40 cc an hour with low amounts of residuals. Last bowel movement was noted to be June 08 and he is receiving GI prophylaxis with Protonix. Hyperkalemia this morning appear to have been resolved with most recent potassium noted at 4.6. We will repeat another potassium at 2 PM to see if patient will require further hemodialysis but we will also initiate Lasix 40 mg IV push twice daily for diuresis in hopes that that will contribute to decreasing his hyperkalemia and help improve his potassium. Continues to remain anemic with iron deficiency anemia but hemoglobin is stable and is not a candidate for blood transfusion or iron repletion currently. 06/11/24: Patient was seen and examined by the bedside. No acute overnight events. No fevers overnight. Patient oxygen requirements decreased a little bit, his ABGs showed pH 7.35 slightly improved oxygenation. P:F ratio is 175. Chest Xray showed improvement compared to yesterday. Patient had a urine output of 5.3L, negative balance -4.4L. Cisatracurium is discontinued today, will try to slowly titrate down the sedation. Continues to receive bactrim, zosyn, micafungin. Repeat blood cultures, urine cultures are negative. ETT secretions grew GPC. ID is following patient. 06/12/24: Patient was seen and examined by the bedside. No acute overnight events. No fevers overnight. Patient had an awakening trial today due to his improvement in oxygenation. He was able to continue on spontaneous mode PS for a few hours, but due to agitation he was sedated again, but continued on spontaneous PS. ABGs showed pH 7.48, pCO2 63, pO2 78. PF ratio is 217. Will try awakening trial tomorrow again. Will keep his sedated throughout the night while on AC. Added oral morphine to decrease respiratory distress and sedation, will try to downtitrate propofol. Discontinued fluconazole. 06/13/24: Patient was seen and examined by the bedside. No fevers overnight. Saturates well on FiO2 of 50. Overnight patient was double stacking, pulling hide tidal volume on volume control, received midazolam 2 mg pushes for sedation, was also started on Precedex drip. Will try awakening trial today. Continues to be on morphine drip and oral morphine. In the morning was switched to PS 8, PEEP 10, FiO2 50. Will continue Bactrim and micafungin, length of course 21 days. Continue Zosyn for HAP. Sedation was turned off for awakening trial, patient was able to breath spontaneously, but did not follow commands. He became agitated, was inhaling high VT, BP went up to 180/88, was sedated again. Will switch him back to VC mode overnight. Family was advised to spend time with him. 06/14/24: Patient was seen and examined by the bedside. No fevers overnight. Saturates well on FiO2 of 60. Overnight patient was on PC, RR 14 but was tachypneic, double stacking, pulling high tidal volume, received midazolam 4 mg pushes for sedation, continued to be on Precedex drip and propofol. Continues to be on oral morphine, morphine drip was discontinued. Patient started on SPONT PS in the morning again. Sedation was turned off for awakening trial, patient was able to breath spontaneously, but did not follow commands, does not open his eyes to the speech. He became agitated, was inhaling high VT, was sedated again.Due to his mental status, patient is not a candidate for extubation at the moment. Will switch him back to VC mode overnight. Family was advised to spend time with him, to talk to him and support. His ABGs showed improvement of hypercapnia and respiratory acidosis. Will continue Bactrim and micafungin, length of course 21 days. Continue Zosyn for HAP. 06/15/24: Overnight, the patient was noted to be tachypneic to the 50s on volume control, propofol and dexmedetomine for sedation, had been off of morphine drip. He required 2 pushes of midazolam 4 mg IV, 1 push of morphine 4 mg IV, and a push of ketamine 50 mg. Patient also had fevers up to 102.0 and received acetaminophen overnight. This morning patient continued to have tachypneic episodes to the 40s. Dr. Anderson used bedside Glidescope to visualize placement of ET tube which was in correct positioning and performed small amounts of suctioning. CXR was retaken which showed possible worsening right lower infiltrate. He was placed on 100% FiO2. The patient was ultimately fully sedated and paralyzed again, throughout the day given ketamine 50 mg x1, morphine 5 mg x2, midazolam 4 mg x2, extra pushes of 60 mg propofol, and cisatracurium 20 mg x4. Fentanyl was restarted, oral morphine was stopped. Methadone 5 mg x1 was also given for possible morphine withdrawal. Propofol was uptitrated. Goal for tonight is fentanyl at 150 and propofol at 50 with RASS -5. He received another acetaminophen 1000 mg. 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 Meropenem will also be continued for broad coverage. Second organism is staph haemolyticus which is a commensal organism and per ID no concern for infectious source, regardless linezolid is shown as sensitive for both. Continue with micafungin prophylactically and Bactrim, Solu-Medrol for PCP. New blood cultures and ET cultures sent today. ABGs showed continued severe respiratory acidosis pH 7.03, pCO2 121, pO2 99, HCO3 32, q4h checks are scheduled, and the patient has been placed on bicarb drip and also received 50 mEq sodium bicarb x3 pushes. Patient was proned around 13:00 and will be turned in the morning. Patient was also started on heparin drip for suspected PE. Doppler was not completed due to patient proned position. A right upper quadrant US was also done today due to uptrended Tbili to 1.3 and AST 303, ALT 420, US showed no cholelithiasis and no obvious sign of cholecystitis. 06/16/24: Overnight patient remained on 100% FiO2, weaned down to 80%, continued to have respiratory acidosis, slight improvements with ABG showing pH 7.17, pCO2 112, pO2 155, HCO3 41. Continues at PEEP of 11, respiratory rate 30, tidal volume 410. Creatinine slightly worsened to 1.2 from 0.9, however patient continues to maintain good urine output and net even fluid balance. Patient was unproned this morning, and took some time to recover. Will continue paralytic and sedation with fentanyl and propofol today. Continue holding off on tube feeds to reduce metabolic demand in the setting of acidemia, will most likely resume tomorrow. WBC downtrended from 14.3 to 9.4. Continue with meropenem and linezolid. Chest CTA was done today as patient was more stable and showed no PE. But will continue heparin drip for acute DVT right subclavian and right axillary veins seen on right extremity Doppler. Right arm is swollen with multiple clear vesicles and skin exfoliation, elevated arm. Head CT done in setting of difficulty weaning off sedation without agitation. It was negative for acute hemorrhage, mass effect or midline shift, showing acute bilateral mastoiditis, and acute left maxillary sinusitis. Exam Vital Signs Temp Pulse Resp BP Pulse Ox O2 Del Method O2 Flow Rate 97.5 F 92 30 H 157/57 H 100 Mechanical Ventilation 40 06/17/24 00:00 06/17/24 03:16 06/17/24 03:00 06/17/24 03:16 06/17/24 03:16 06/15/24 16:00 06/09/24 12:16 FiO2 80 06/17/24 03:16 Narrative Exam Physical Exam General: Well nourished male, sedated. HEENT: Normocephalic, atraumatic, mucous membranes moist, ET tube in place. Heart: Tachycardic rate and regular rhythm, no murmurs. Lungs: Bilateral rhonchi present. Abdomen: Soft, nondistended, nontender, positive bowel sounds. ?No guarding or rebound tenderness. Neurologic: Patient is kept deeply sedated. Extremities: Significant edema of the upper extremities, R>L. Skin: There are clear vesicles and skin exfoliation on the R upper extremity likely secondary to DVT and interstitial fluid extravasation. Objective Labs 06/19/24 04:48 06/19/24 04:48 Labs: Laboratory Results - last 24 hr 06/16/24 06/16/2406/16/24 04:45 08:55 10:00 WBC 9.4 RBC 4.13 L Hgb 9.8 L Hct 31.9 L MCV 77 L MCH 23.7 L MCHC 30.7 L RDW Std Deviation 54.5 H Plt Count 162 D Neut % (Auto) 93 H Lymph % (Auto) 2 L O'Brien % (Auto) 3 Eos % (Auto) 0 Baso % (Auto) 0 Neut # (Auto) 8.8 H Lymph # (Auto) 0.2 L O'Brien # (Auto) 0.3 Eos # (Auto) 0.0 Baso # (Auto) 0.0 Immature Gran # (Auto) 0.10 H Absolute Nucleated RBC 0.15 H Immature Gran % 1 H Nucleated RBC % 2 H APTT 66.5 H D Puncture Site Arterial Line Site Not Noted ABG pH 7.17 L* 7.28 L D ABG pCO2 112 H* 88 H* D ABG pO2 155 H D 98 D ABG HCO3 41 H 41 H ABG O2 Saturation 99 H 98 ABG Base Excess 9 H 12 H FiO2 97 60 Sodium 135 L Potassium 5.0 Chloride 95 L Carbon Dioxide 38.5 H Anion Gap 2 L BUN 36 H Creatinine 1.2 Estim Creat Clear Calc 78.0 eGFR > 60 BUN/Creatinine Ratio 30 H Glucose 54 L D Calculated Osmolality 276 Lactic Acid 0.9 Calcium 8.0 L Corrected Calcium 8.6 Phosphorus 4.1 Magnesium 2.4 Total Bilirubin 0.8 AST 160 H ALT 354 H Alkaline Phosphatase 151 H Total Creatine Kinase Total Protein 6.4 Albumin 3.2 L Globulin 3.2 Albumin/Globulin Ratio 1.0 L Triglycerides 06/16/24 06/16/24 15:41 23:17 WBC RBC Hgb Hct MCV MCH MCHC RDW Std Deviation Plt Count Neut % (Auto) Lymph % (Auto) O'Brien % (Auto) Eos % (Auto) Baso % (Auto) Neut # (Auto) Lymph # (Auto) O'Brien # (Auto) Eos # (Auto) Baso # (Auto) Immature Gran # (Auto) Absolute Nucleated RBC Immature Gran % Nucleated RBC % APTT 62.5 H Puncture Site ABG pH ABG pCO2 ABG pO2 ABG HCO3 ABG O2 Saturation ABG Base Excess FiO2 Sodium 137 Potassium 3.7 D Chloride 94 L Carbon Dioxide > 40.0 H Anion Gap 3 L BUN 23 Creatinine 0.6 D Estim Creat Clear Calc 150.6 eGFR > 60 BUN/Creatinine Ratio 38 H Glucose 148 H D Calculated Osmolality 280 Lactic Acid Calcium 8.0 L Corrected Calcium 9.0 Phosphorus Magnesium Total Bilirubin 0.4 AST 111 H ALT 257 H Alkaline Phosphatase 125 H D Total Creatine Kinase 379 H D Total Protein 5.4 L Albumin 2.7 L D Globulin 2.7 Albumin/Globulin Ratio 1.0 L Triglycerides 157 H ABG Interpretation ABG results: 05/27/24 05/29/24 05/29/24 23:37 10:44 22:08 ABG pH 7.51 H 7.50 H 7.48 H ABG pCO2 28 L 32 32 ABG pO2 75 L 79 L 145 H D ABG HCO3 23 25 24 ABG O2 Saturation 96 95 98 ABG Base Excess 0 2 1 05/30/24 05/31/24 06/04/24 08:45 04:54 02:10 ABG pH 7.47 H 7.45 7.45 ABG pCO2 35 38 36 ABG pO2 86 D 82 L 139 H ABG HCO3 26 26 25 ABG O2 Saturation 97 96 98 ABG Base Excess 2 2 1 06/04/24 06/05/24 06/05/24 18:16 11:36 12:59 ABG pH 7.44 7.11 L* D 7.20 L ABG pCO2 36 94 H* D 68 H D ABG pO2 80 L D 150 H D 121 H D ABG HCO3 24 30 H 26 ABG O2 Saturation 94 97 97 ABG Base Excess 0 -2 -3 06/05/24 06/06/24 06/06/24 19:25 04:13 15:27 ABG pH 7.22 L 7.27 L 7.30 L ABG pCO2 64 H 57 H 60 H ABG pO2 122 H 153 H D 74 L D ABG HCO3 26 26 29 H ABG O2 Saturation 97 99 H 92 ABG Base Excess -3 -2 2 06/07/24 06/07/24 06/08/24 03:55 09:59 04:20 ABG pH 7.41 D 7.43 7.45 ABG pCO2 56 H 55 H 50 H ABG pO2 293 H D 78 L D 75 L ABG HCO3 36 H 37 H 35 H ABG O2 Saturation 99 H 95 94 ABG Base Excess 10 H 11 H 10 H 06/08/24 06/08/24 06/08/24 11:05 11:50 13:18 ABG pH 7.17 L* D 7.10 L* 7.15 L* ABG pCO2 95 H* D 115 H* D 88 H* D ABG pO2 89 75 L 72 L ABG HCO3 34 H 36 H 31 H ABG O2 Saturation 92 84 L 85 L ABG Base Excess 3 4 H 0 06/08/24 06/09/24 06/09/24 17:02 01:33 03:15 ABG pH 7.18 L* 7.22 L 7.27 L ABG pCO2 50 H D 91 H* D 82 H* ABG pO2 82 L 105 D 86 ABG HCO3 19 L 37 H 38 H ABG O2 Saturation 93 97 95 ABG Base Excess -9 L 7 H 9 H 06/09/24 06/09/24 06/10/24 05:08 12:52 04:40 ABG pH 7.31 L 7.33 L 7.30 L ABG pCO2 75 H* 57 H D 78 H* D ABG pO2 97 158 H D 65 L D ABG HCO3 38 H 30 H 38 H ABG O2 Saturation 97 99 H 90 L ABG Base Excess 10 H 3 9 H 06/10/24 06/11/24 06/12/24 09:40 04:19 04:15 ABG pH 7.27 L 7.35 7.48 H D ABG pCO2 88 H* D 86 H* 63 H D ABG pO2 65 L 70 L 76 L ABG HCO3 40 H 48 H 47 H ABG O2 Saturation 89 L 93 95 ABG Base Excess 10 H 19 H 21 H 06/13/24 06/14/24 06/15/24 07:22 04:32 03:45 ABG pH 7.46 H 7.48 H 7.46 H ABG pCO2 56 H 40 D 37 ABG pO2 80 L 64 L 71 L ABG HCO3 39 H 30 H 27 H ABG O2 Saturation 95 92 94 ABG Base Excess 13 H 6 H 3 06/15/24 06/15/24 06/15/24 10:17 12:20 14:20 ABG pH 7.01 L* D 7.00 L* 7.03 L* ABG pCO2 122 H* D 130 H* 125 H* ABG pO2 91 D 88 82 L ABG HCO3 31 H 32 H 33 H ABG O2 Saturation 88 L 88 L 87 L ABG Base Excess -3 -2 -1 06/15/24 06/15/24 06/16/24 15:55 20:39 00:35 ABG pH 7.03 L* 7.08 L* 7.10 L* ABG pCO2 121 H* 116 H* 118 H* ABG pO2 99 117 H 102 ABG HCO3 32 H 34 H 37 H ABG O2 Saturation 93 97 96 ABG Base Excess -1 2 4 H 06/16/24 06/16/24 04:45 08:55 ABG pH 7.17 L* 7.28 L D ABG pCO2 112 H* 88 H* D ABG pO2 155 H D 98 D ABG HCO3 41 H 41 H ABG O2 Saturation 99 H 98 ABG Base Excess 9 H 12 H Quality Measures Quality Measures sepsis Current suspected stage: sepsis Possible source: pulmonary, GI tract/intra-abdominal, genitourinary and skin/soft tissue Blood cultures ordered: yes Antibiotic ordered: Yes Assessment & Plan Assessment Current Active Medications: Generic Name Dose Route Start Last Admin Trade Name Freq PRN Reason Stop Dose Admin Acetaminophen 975 mg 06/09/24 14:27 06/15/24 02:56 Acetaminophen Munira 325 Mg/10 Ml Udc PO 06/26/24 12:10 975 mg Q6H PRN Administration Pain 1-3 and Fever >101.5 Albuterol/Ipratropium 3 ml 06/05/24 11:40 06/09/24 22:18 Albuterol/Ipratropium (Duoneb) Rt Munira 3 Ml Nebu INH 07/05/24 14:59 3 ml Q4HRRT PRN Administration Wheezing Bisacodyl 5 mg 06/14/24 17:15 06/16/24 08:45 Bisacodyl 5 Mg Tabec PO 07/14/24 17:14 5 mg QDAY JUAN JOSE Administration Protocol Dextrose 25 ml 06/06/24 08:20 Dextrose 50%-Water Inj 50 Ml Syringe IV 07/06/24 08:19 Q15MIN PRN BG 50-70 responsive npo pt Dextrose 50 ml 06/06/24 08:20 Dextrose 50%-Water Inj 50 Ml Syringe IV 07/06/24 08:19 Q15MIN PRN BG <50 OR BG <70 & pt unresponsive Emtricitabine/Tenofovir 1 tab 06/16/24 12:30 06/16/24 13:00 Emtricitabine 200 Mg/Tenofovir 300 Mg Tab (Non-Form) PO 07/16/24 12:29 1 tab QDAY JUAN JOSE Administration Enoxaparin Sodium 40 mg 06/07/24 09:00 06/15/24 08:32 Enoxaparin Sod Inj 40 Mg/0.4 Ml Syringe SC 06/21/24 08:59 40 mg QDAY JUAN JOSE Administration Glucagon 1 mg 06/06/24 08:20 Glucagon Inj 1 Mg Vial IM Q15MIN PRN BG <70, and no IV access Micafungin Sodium 100 mg/ 100 mls @ 100 mls/hr 06/09/24 09:00 06/16/24 12:38 Sodium Chloride IV 06/24/24 08:59 100 mls/hr QDAY JUAN JOSE Administration Meropenem 1,000 mg/ Sodium 50 mls @ 100 mls/hr 06/15/24 14:00 06/16/24 21:26 Chloride IV 06/22/24 13:59 100 mls/hr Q8HR JUAN JOSE Administration Cisatracurium Besylate 200 mg/ 520 mls @ 11.794 mls/hr 06/15/24 10:41 06/17/24 02:00 Sodium Chloride IV 07/15/24 10:40 3 mcg/kg/min .Q24H PRN 35.381 mls/hr Per Protocol Titration Protocol 1 MCG/KG/MIN Sodium Bicarbonate 88.23 meq/ 588.23 mls @ 100 mls/hr 06/15/24 10:41 06/17/24 02:13 Dextrose IV 07/15/24 10:40 100 mls/hr .[id number] JUAN JOSE Administration Linezolid 600 mg in 300 mls @ 300 mls/hr 06/15/24 11:31 06/16/24 21:26 Zyvox Ivpb IV 06/22/24 11:30 300 mls/hr Q12HR JUAN JOSE Administration Heparin Sodium/Dextrose 25,000 unit in 250 mls @ 13.608 mls/hr 06/15/24 14:45 06/16/24 16:30 Heparin In D5w Ivpb IV 06/29/24 14:44 20 units/kg/hr .[id number] JUAN JOSE 15.12 mls/hr Titration Protocol 18 UNITS/KG/HR Propofol 1,000 mg in 100 mls @ 2.268 mls/hr 06/15/24 15:14 06/17/24 02:17 Diprivan Ivpb IV 07/09/24 14:25 40 mcg/kg/min .Q24H PRN 18.144 mls/hr PER PROTOCOL Administration Protocol 5 MCG/KG/MIN Fentanyl Citrate 2,500 mcg in 250 mls @ 2.5 mls/hr 06/15/24 15:14 06/17/24 02:00 Sublimaze Inj 2,500 Mcg/250 Ml Bag IV 06/20/24 10:01 150 mcg/hr .Q24H PRN 15 mls/hr PER PROTOCOL Titration Protocol 25 MCG/HR Methylprednisolone Sodium Succinate 40 mg 06/10/24 09:00 06/16/24 08:45 Methylprednisolone Sod Succ 40 Mg Vial IVP 06/17/24 08:59 40 mg QDAY JUAN JOSE Administration Midazolam HCl 4 mg 06/13/24 16:21 06/15/24 09:27 Midazolam Inj 1 Mg/Ml Vial 2 Ml IV 06/17/24 21:59 4 mg Q2HR PRN Administration agitation, causing vent desynchrony Ondansetron HCl 4 mg 05/29/24 21:51 06/04/24 17:44 Ondansetron Inj 2 Mg/Ml Inj 2 Ml IV 06/28/24 21:50 4 mg Q6HR PRN Administration NAUSEA OR VOMITING Protocol Pantoprazole Sodium 40 mg 06/06/24 09:00 06/16/24 08:45 Pantoprazole Inj 40 Mg Vial IVP 07/06/24 08:59 40 mg QDAY JUAN JOSE Administration Patiromer 8.4 gm 06/09/24 10:45 06/16/24 09:35 Patiromer Calcium 8.4 Gm Packet (Non-Form) NG 07/09/24 10:44 8.4 gm QDAY JUAN JOSE Administration Polyethylene Glycol 17 gm 06/14/24 17:15 06/16/24 08:44 Polyethylene Glycol 17 Gm Packet PO 07/14/24 17:14 17 gm QDAY JUAN JOSE Administration Quetiapine Fumarate 25 mg 06/13/24 21:00 06/16/24 21:26 Quetiapine Fumarate 25 Mg Tablet PO 12/25/24 20:59 25 mg HS JUAN JOSE Administration Raltegravir 400 mg 06/16/24 12:30 06/16/24 21:26 Raltegravir 100 Mg Chew (Non-Form) NG 06/23/24 12:29 400 mg BID JUAN JOSE Administration Sennosides 1 tab 06/11/24 09:00 06/16/24 08:44 Senna Tablet PO 07/11/24 08:59 1 tab QDAY JUAN JOSE Administration Protocol Trimethoprim/Sulfamethoxazole 40 ml 06/15/24 06:00 06/16/24 21:27 Trimethoprim 40 Mg/Sulfa 200 Mg Susp 5 Ml PO 06/22/24 05:59 40 ml QID JUAN JOSE Administration Plan Hospital Course: This is a 39-year-old gentleman with no known previous past medical history who initially presented to [facility] on 05/27/2024 with a chief complaint of shortness of breath and cough, with associated chills, body aches, generalized weakness, fever, and night sweats beginning weeks prior but progressively worsening over a few days. ED work-up revealed extensive bilateral diffuse infiltrate, patient met 4/4 SIRS, was requiring 4L O2, and was subsequently admitted for acute hypoxic respiratory failure secondary to bilateral community-acquired pneumonia of unknown etiology. Procal was only slightly elevated at 0.61 and he was first empirically treated with levofloxacin from 05/27-05/29 for suspicion of atypical pneumonia and fluconazole for cocci coverage. Patient quickly progressed to requiring Hi-Flow oxygen and had multiple rapid response alerts for increasing oxygen requirements and recurrent fevers. He was monitored in ICU from 05/30-05/31, at that time started on steroids and antibiotics were escalated to azithromycin, doxycycline, and Zosyn as well as high dose steroids. He seemed to have improved and was downgraded at that time without needing intubation. ID and Pulmonology were consulted, and the patient was started on Bactrim to cover pneumocystis pneumonia. Several tests which had been sent were negative, including Cocci IgM and IgG, Legionella, and all blood, urine, sputum cultures had been negative at that point. HIV test was reported to be a preliminary positive, and sent out for confirmation studies but result had significant delay. Patient had reported a single sexual partner with his fiance for the last 5 years, last contact few weeks before admission, and denied IV drug usage. He did endorse 1 pack per day smoking history since teenage years, and occasional alcohol and marijuana. He had tattoos done as a young teenager, none recent. He had history of temporary incarceration. After the downgrade, patient developed worsening dyspnea on movement, desaturation, and complaints of work of breathing despite Hi-Flow at 100% FiO2. He was upgraded to ICU again on 06/05 for intubation and bronchoscopy, which showed normal-appearing mucosa, and BAL sample was sent for culture and cytology. Patient was given paralysis and managed with vent settings for ARDS. At this point, autoimmune studies including Rh factor, DANIEL, ANCA, Anti-proteinase 3, Anti-myeloperoxidase, Complement C3/C4c all returned negative. Absolute CD4 count was low at 116. On 06/07, in light of still unconfirmed diagnosis and critical status, patient's named [id number] and decision-maker, sister Francesca, was asked to bring forward any other additional history about patient's substance use, particularly any vape pens or supplements/substances he may have used to investigate for possible Vape-Associated Lung Injury. Sister brought in patient's bag of belongings from home containing vials of trenbolone (anabolic steroid) and testosterone and needles, which sister reports may have been purchased from [facility] [place]. There were additional male enhancement supplements, synthetic urine kit, marijuana wax pen, and cigarette boxes. 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 On 06/08, HIV viral load came back at 5,660,000 copies. HIV 1 antibody was positive. HIV 2 negative. On 06/09, patient was started on antiretrovirals, Truvada and raltegravir. Patient also started having significant hyperkalemia, requiring multiple pushes of insulin, calcium gluconate, and kayexylate, eventually needing dialysis on 06/06, 06/08, and 06/09. Suspected Bactrim adverse effect, Bactrim was continued however to treat PCP. Patient has continued on mechanical ventilation. While he initially succeeded at weaning to spontaneous mode with Pressure Support of 8, FiO2 40% on sedation, it has been a challenge to wean sedation off successfully. Patient would become increasingly tachypneic, with work of breathing and desaturation, and has been unable have sedation low enough to follow commands, eye track, or make purposeful movements. On 06/15, patient had spiked fevers, WBC worsened, and patient had tachypneia again with worsening respiratory acidosis. Patient was proned. PE was suspected and heparin drip was started, CTA was negative but right upper extremity Doppler showed right subclavian and axillary DVT. ET sputum culture from 06/09 grew VRE enterococcus casseliflavus therefore linezolid and meropenem was started, Zosyn was discontinued. Plan to not wean from sedation until tracheostomy, which can be completed after stabilization of vent settings and improvement of respiratory acidosis. NEURO #Acute encephalopathy, secondary to prolonged sedation 06/05/2024 Patient was intubated, sedated, and paralyzed for ARDS. Prior to intubation, patient was awake, alert, and oriented x3, following commands, conversational. Initially, fentanyl was discontinued 06/09 as a sedative due to concern for tachyphylaxis, restarted 06/15 Morphine drip (given in place of fentanyl) was discontinued 06/14 Cisatracurium was discontinued 06/11, restarted 06/15 Plan: -Goal sedation: RASS -4 -Fentanyl at 150 mcg/hr -Propofol at 50 mcg/kg/min -Cisatracurium to target 2/4 ToF twitches -Midazolam 4 mg IV prn for breakthrough agitation #Fever 06/15 Fever overnight with spike at 102.0, acetaminophen 975 mg given with resolution of fever. Possible new ventilator-associated infection? Plan: -Additional acetaminophen 1000 mg NG given today -Acetaminophen as needed -Pending blood cultures sent 06/15 -Pending ET culture sent 06/15 CARDIO #Sinus tachycardia Tachycardia most likely secondary to respiratory distress and agitation. 06/15: Possible new sepsis? Patient with new fevers, increased tachypneia. Low threshold of suspicion for PE, therefore heparin drip was started 06/15. Plan: -Continuous telemetry -Continue sedation with RASS goal -5 for now, goal is to not wean sedation until tracheostomy is safely in place -Doppler US right upper extremity due to visible swelling -Consider CTPA when stable #Septic shock, resolved Secondary to severe extensive bilateral pneumonia. Patient was on norepinephrine 06/06-06/10. Currently off pressors. 06/06/2024 Echo was read EF 55-60% 06/09/2024 Blood cultures negative 06/09/2024 Urine culture negative 06/09/2024 ET culture showed Staph haemolyticus, Entercoccus casseliflavus vancomycin-resistant 06/15/2024 Blood cultures pending 06/15/2024 New ET culture pending PULM #Acute hypoxic respiratory failure Secondary to #Bilateral pneumocystis jirovecii pneumonia #Healthcare associated pneumonia #Ventilator associated pneumonia Patient presented with dyspnea and cough, requiring 4L NC on first ED evaluation, and history of chills, body aches, generalized weakness, fever, and night sweats progressively worsening over the prior weeks. Approx 20-pack year smoking history, occasional marijuana. 05/27/2024 Received ceftriaxone/azithromycin in ED. Started on levofloxacin as an inpatient. 05/28/2024 Started on fluconazole (discontinued 06/12). Started requiring Hi- Flow. 05/30/2024 Upgraded to ICU for close monitoring. Started on doxycycline. Started on azithromycin (completed 5-days). Started on Zosyn (discontinued 06/15). Started Solu-Medrol. 06/01/2024 Downgraded. Started on Bactrim (discontinued doxy). 06/05/2024 Intubation of the patient, return to ICU. Suspected ARDS. Bronchoscopy showed normal-appearing mucosa and no mucous plugging, hemorrhage, or friability bilaterally. Bronchoalveolar washings culture were negative for growth. Fungal cultures are pending. 06/07/2024 Bronchoalveolar lavage cytology shows Pneumocystis jirovecii. Also other fungi, possibly Kassandra. Kassandra is most likely a contaminant. Blood qmkl-Q-[id number] also positive. 06/08/2024 HIV quant 5.66 million copies. HIV 1 positive confirmed. Patient was proned due to desaturation event. 06/09/2024 Started on prophylactic micafungin. Started Truvada and raltegravir HAART. Patient's decision-maker, sister Francesca informed of HIV+ and diagnosis. 06/14/2024 ETT sputum cultures from 06/09 positive for Staphylococcus hemolyticus, ID stated that this is not a respiratory pathogen, no need to treat. 06/15/2024 Above #2 pathogen showed vancomycin-resistant enterococcus casseliflavus, started linezolid. Zosyn stopped and meropenem started. 06/15/2024 Increased tachypnea, vent overbreathing, paralyzed and proned. Plan: -Ventilation on volume control, saturation to be maintained >90%, increased PEEP, tidal volume 410, RR 30, FiO2 at 80% wean if tolerated -Daily AM ABGs -Continue Bactrim 06/01/24 - to be continued through 06/21 for 21 days of treatment -Continue meropenem 1000 mg q8h 06/15/24- -Continue linezolid 600 mg q12h 06/15/24- -Continue micafungin 100 mg qday 06/09/24- -Fungal cultures from BAL pending -DuoNebs q4h as needed -Pending blood cultures sent 06/15 -Pending ET culture sent 06/15 #ARDS #Respiratory acidosis Patient continues to have increased oxygen demands with worsening bilateral infiltrates on CXR. Will maintain ARDS ventilation protocol. 06/08/24 P:F ratio 89/1=89. Severe ARDS. 06/09/24 P:F ratio 97/92=898. Moderate ARDS. 06/10/24 P:F ratio 65/46=856 06/11/24 P:F ratio 70/13=785 06/12/24 P:F ratio 217 06/13/24 P:F ratio 160 06/15/24 P:F ratio 91, ABGs showing pH in the 7.00s, elevated pCO2 110-120s. 06/16/24 P:F ratio 163 Plan: -VC overnight, maintain PEEP 12-14, TV 410, RR 30, FiO2 to maintain saturation >92% -Maintain peak plateau <30 -Improve hypercapnia -Continue paralytic -Follow up AM ABGs -Methylprednisolone 40 mg qday GI Prophylaxis: Pantoprazole 40 mg IV qday #Elevated LFTs, improving Likely due to propofol and bactrim. Mildly elevated, liver US 05/30/2024 showed normal gallbladder and hepatomegaly without lesions or evidence of obstructions. Hep panel negative. LFTs downtrended compared to 06/06/24. 06/15/2024 Floyd in LFTs with AST 303, ALT 420, Tbili 1.3, therefore right upper quadrant US ordered, negative for cholecystitis/cholelithiasis. No obvious changes on physical exam. Plan: -Continue monitoring NEPHRO #WILL, resolved #Mild hyponatremia #Hyperkalemia #Hyperphosphatemia, resolved Ddx: Prerenal WILL due to hypotension vs possible rhabdomyolysis vs drug toxicity (zosyn, vancomycin, bactrim) Unlikely rhabdomyolysis, CK was 511 06/06, did not uptrend. Urine output is >100 ml/hr, urine is yellow and clear. Possible underlying SIADH. Potassium 06/11/24 4.4. Plan: -Continue Veltassa 8.4 gm qday for potassium chelation -Nephrology Dr. Song is following for as-needed dialysis due to hyperkalemia -Continue free water at 40 ml/hr -Maintain euvolemia -Monitor CMP, especially potassium #Metabolic alkalosis #Respiratory acidosis ABGs are showing acidemia with elevation of pCO2, indicative of primary respiratory acidosis. There is an underlying metabolic alkalosis due to the given bicarb being greater than the expected compensatory bicarb. Patient was given 150 mEq bicarb in pushes x3 throughout the day 06/15 for acidemia Plan: -Bicarb drip to continue, november d/c tomorrow URO #No active problems -Tijerina placed 06/05/2024 for strict I&O monitoring HEME #Leukocytosis Fluctuating WBC. In the setting of likely infection, inflammation, and corticosteroids. Plan: -Treatment of pneumonia as above #Microcytic anemia Stable, has not required any transfusions this admission thus far. Clinically no evidence of bleeding. Iron panel shows iron 17, TIBC 262, iron saturation 6, unsaturated iron binding 245. Peripheral blood film confirms microcytic hypochromic anemia with target cells. Also daily lab draws contributing. Plan: -Monitor H&H. Transfusing for Hgb <7 #Thrombocytosis, resolved Likely reactive. -Continue to monitor ENDO #No active problems -Blood glucose on chemistry panels in acceptable range ID #Bilateral pneumocystis pneumonia #Healthcare associated pneumonia #Ventilator associated pneumonia Negative studies: Cocci IgM and IgG, Hepatitis panel, Syphilis, Legionella, H.flu, N.meningitidis, Strep B, Strep pneumoniae, COVID, RSV, Flu A & B. TB quantiferon GOLD-indeterminate, however 06/05 AFB negative, CMV IgM, cryptococcal antigen negative. G6PD levels came back normal for consideration of dapsone alternative to Bactrim if needed. Patient completed 5 day course of azithromycin, 16 days of Zosyn. See Pulm for timeline of antimicrobial coverage. Plan: -Continue Bactrim 06/01/24 - to be continued through 06/21 for 21 days of treatment -Discontinued Zosyn 05/30/24-06/15/24 -Continue meropenem 1000 mg q8h 06/15/24- -Continue linezolid 600 mg q12h 06/15/24- -Continue micafungin 100 mg qday 06/09/24- -Fungal cultures from BAL pending -Pending blood cultures sent 06/15 -Pending ET culture sent 06/15 #AIDS/HIV Patient has Stage 4 HIV, AIDS-defining illness with opportunistic infection. 06/07/2024 Bronchoalveolar lavage cytology shows Pneumocystis jirovecii. Also other fungi, possibly Kassandra. Kassandra is most likely a contaminant. Blood qlbb-P-zcpkzl also positive. 06/08/2024 HIV quant 5.66 million copies. HIV 1 positive confirmed. 06/09/2024 Patient's decision maker, Francesca, was informed of diagnosis due to critical state of patient. Absolute CD4 count 87 and 22% on 06/02. History/risk factors: History of injection anabolic androgenic steroid and testosterone use, possible unclean needles. History of incarceration (unknown time). Tattoos received as a teenager. Has 1 female sexual partner last 5 years, denies others. -Continue HAART: emtricitabine / tenofovir (Truvada) and raltegravir initiated 06/09/24 -Patient is not aware of his diagnosis as he has been intubated and sedated before results returned. Will require complete education and counseling on the disease if his mental status and clinical condition improves. MSK #Elevated creatine kinase Checked CK due to acute WILL, however now resolved. Unlikely to be rhabdo, patient producing adequate clear urine. Most likely elevated due to paralytic use and bedbound status. 06/06 511 06/08 206 06/10 220 Plan: -Continue to monitor urine output and kidney function SKIN #No active problems DVT prophylaxis: Heparin drip for RUE DVT GI prophylaxis: Pantoprazole 40 mg IV qday Diet: Tube feeds Nepro on hold Tijerina: Present (06/05- ) Lines: Peripheral IV, Right radial arterial line. Antibiotics: Bactrim, meropenem, linelozid, micafungin CODE STATUS: FULL CODE Reason for ICU care: Acute hypoxic respiratory failure secondary to bilateral pneumonia/ARDS Patient plan of care was discussed with the attending physician, Dr. Anderson. Jennifer Velasco, PGY-2
[2024-06-16] MEDS: QUEtiapine FUMARATE 25 MG TABLET PO (21:26)
[2024-06-17] VITALS (31 sets, daily range): BP systolic 115–191; BP diastolic 49–78; PULSE 80–118; RESP 7–36; TEMP 36.1–37.7; O2SAT 89–100
[2024-06-17 00:03] LABS: Creatine Kinase 379 U/L (34-171)
[2024-06-17 01:40] LABS: Alanine Aminotransferase 257 U/L (10-49); Albumin, Serum 2.7 gm/dL (3.5-5.0); Alkaline Phosphatase 125 U/L (46-116); Anion Gap 3 (7-16); Aspartate Amino Transferase 111 U/L (0-34); BUN/Creatinine Ratio 38 Ratio (12-20); Bilirubin,Total 0.4 mg/dL (0.3-1.2); Blood Urea Nitrogen 23 mg/dL (9-23); Carbon Dioxide > 40.0 mMol/L (20.0-31.0); Chloride 94 mMol/L (98-107); Creatinine (Component) 0.6 mg/dL (0.6-1.3); Estimated Creatinine Clearance 150.6 mL/min (>60); Globulin 2.7 gm/dL (2.3-3.5); Glucose 148 mg/dL (74-106); Osmolality,Calculated 280 (275-295); Potassium 3.7 mMol/L (3.4-5.1); Sodium 137 mMol/L (136-145); Total Protein 5.4 gm/dL (5.7-8.2); eGFR > 60 See Note
[2024-06-17 01:51] LABS: Triglycerides 157 mg/dL (30-150)
[2024-06-17] MEDS: Sodium Bicarb 8.4% 50ml Vial* 88.23 MEQ in DEXTROSE 5%-WATER 500 ML 100 MEQ IV ×2 (02:13→07:31)
[2024-06-17] MEDS: PROPOFOL 1,000 MG IVPB 1,000 MG/100 ML VIAL 18.144 MG IV ×2 (02:17→07:33)
[2024-06-17 05:13] LABS: Base Excess 21 (-3-3); HCO3 50 mEq/L (20-26); Inspired Oxygen, FIO2 60 %; O2 Saturation 99 % (91-98); PCO2 96 mmHg (32.0-48.0); PO2 126 mmHg (83-108); pH, Arterial 7.33 (7.35-7.45)
[2024-06-17 05:14] LABS: Allen Test Not Performed; Puncture Site Arterial Line
--- NOTE | 2024-06-17 06:00 | XR_ITS ---
Examination: AP chest single view Technique: AP portable upright chest single view Exam date and time: June 17, 2024 1032 hrs. Comparison June 15, 2024 Indications: Hypoxic respiratory failure, ARDS pneumonia pattern, severe on chest imaging this week Findings: Severe bilateral lung opacity Tracheal tube tip 8.3 cm above sunil Orogastric tube in the stomach satisfactory position Normal heart size No pneumothorax Impression: Severe bilateral pneumonia ARDS pattern remains
[2024-06-17 06:18] LABS: Basophils % (Auto) 0 % (0-2.5); Eosinophils # (Auto) 0.4 Thou/mm3 (0.0-0.5); Eosinophils % (Auto) 8 % (0-10); Hematocrit 28.6 % (41.0-53.0); Immature Granulocytes % (Auto) 1 % (0-0); Immature Granulocytes Auto 0.03 Thou/mm3 (0.00-0.00); Lymphocytes # (Auto) 0.2 Thou/mm3 (1.0-4.8); Lymphocytes % (Auto) 4 % (10-50); Mean Corpuscular HGB Conc 30.4 g/dl (31.0-37.0); Mean Corpuscular Hemoglobin 23.6 pg (25.0-35.0); Mean Corpuscular Volume 78 fL (80-100); Monocytes # (Auto) 0.1 Thou/mm3 (0.0-0.8); Monocytes % (Auto) 3 % (0-12); Neutrophils # (Auto) 4.3 Thou/mm3 (1.8-7.7); Neutrophils % (Auto) 85 % (37-80); Nucleated Red Blood Cell % 0 /100 WBC (0); Platelet Count 146 Thou/mm3 (140-440); RDW Standard Deviation 56.4 fL (35.1-43.9); Red Blood Count 3.69 Miln/mm3 (4.50-5.90); White Blood Count 5.1 Thou/mm3 (3.8-10.6)
[2024-06-17] MEDS: MEROPENEM INJ 1,000 MG in SODIUM CHLORIDE 0.9% (P) 50 ML 100 MG IV ×3 (06:31→22:02)
[2024-06-17] MEDS: Heparin/D5w 25K 250 ML Ivpb 25,000 UNIT/250 ML BAG 15.12 UNIT IV (06:31)
[2024-06-17] MEDS: SULFA PO ×4 (06:33→21:05)
[2024-06-17] MEDS: TRIMETHOPRIM PO ×4 (06:33→21:05)
[2024-06-17 06:39] LABS: INR 1.1 (0.9-1.3); Prothrombin Time 12.2 Seconds (9.0-12.2)
[2024-06-17 06:47] LABS: Hemoglobin 8.7 g/dL (13.5-16.0)
[2024-06-17 06:50] LABS: Alanine Aminotransferase 247 U/L (10-49); Albumin/Globulin Ratio 1.1 (1.2-2.2); Alkaline Phosphatase 128 U/L (46-116); Anion Gap 6 (7-16); Aspartate Amino Transferase 88 U/L (0-34); BUN/Creatinine Ratio 38 Ratio (12-20); Bilirubin,Total 0.5 mg/dL (0.3-1.2); Blood Urea Nitrogen 19 mg/dL (9-23); Calcium 7.7 mg/dL (8.3-10.6); Calcium (Corrected) 8.5 mg/dL (8.5-10.1); Carbon Dioxide > 40.0 mMol/L (20.0-31.0); Chloride 90 mMol/L (98-107); Creatinine (Component) 0.5 mg/dL (0.6-1.3); Estimated Creatinine Clearance 180.8 mL/min (>60); Globulin 2.8 gm/dL (2.3-3.5); Glucose 104 mg/dL (74-106); Osmolality,Calculated 274 (275-295); Potassium 3.7 mMol/L (3.4-5.1); Sodium 136 mMol/L (136-145); Total Protein 5.8 gm/dL (5.7-8.2); eGFR > 60 See Note
[2024-06-17] MEDS: CISATRACURIUM INJ 200 MG in SODIUM CHLORIDE 0.9% 500 ML 500 ML 35.381 MG IV ×2 (07:32→23:15)
[2024-06-17] MEDS: bisacodyL 5 MG TABEC PO (09:16)
[2024-06-17] MEDS: EMTRICITABINE 200 MG/TENOFOVIR 300 MG TAB (NON-FORM) 1 TAB PO (09:16)
[2024-06-17] MEDS: PANTOPRAZOLE INJ 40 MG VIAL IVP (09:16)
[2024-06-17] MEDS: SENNA TABLET 1 TAB PO (09:16)
[2024-06-17] MEDS: POLYETHYLENE GLYCOL 17 GM PACKET PO (09:16)
[2024-06-17] MEDS: LINEZOLID 600 MG IVPB 600 MG/300 ML BAG 300 MG IV ×2 (09:16→21:04)
[2024-06-17] MEDS: [UNRECOGNIZED DRUG - REMARK] 400 MG NG ×2 (09:17→21:46)
[2024-06-17] MEDS: MICAFUNGIN SODIUM INJ 100 MG in SODIUM CHLORIDE 0.9% 100 ML IV (09:45)
[2024-06-17] MEDS: PATIROMER CALCIUM 8.4 GM PACKET (NON-FORM) NG (09:45)
[2024-06-17 11:11] LABS: Base Excess 21 (-3-3); HCO3 51 mEq/L (20-26); Inspired Oxygen, FIO2 40 %; O2 Saturation 87 % (91-98); PCO2 106 mmHg (32.0-48.0); pH, Arterial 7.29 (7.35-7.45)
[2024-06-17 11:17] LABS: Allen Test Not Performed; PO2 58 mmHg (83-108); Puncture Site Arterial Line
[2024-06-17] MEDS: PROPOFOL 1,000 MG IVPB 1,000 MG/100 ML VIAL 22.68 MG IV ×3 (12:37→22:00)
[2024-06-17] MEDS: fentaNYL 2,500 MCG/250 ML BAG 2,500 MCG/250 ML BAG 15 MCG IV (14:04)
[2024-06-17 14:05] LABS: Base Excess 21 (-3-3); HCO3 51 mEq/L (20-26); Inspired Oxygen, FIO2 40 %; O2 Saturation 88 % (91-98); PCO2 106 mmHg (32.0-48.0); PO2 61 mmHg (83-108); pH, Arterial 7.29 (7.35-7.45)
[2024-06-17 14:06] LABS: Allen Test Not Performed; Puncture Site Arterial Line
--- NOTE | 2024-06-17 16:21 | PD.RESPRO ---
Documentation for date of: 06/17/24 Subjective Subjective Interval history: 06/10/24: Patient is doing better today with ABG for this morning revealing a CO2 of 78 and a pH of 7.30. We are allowing for permissive hypercapnia and O2 65. Revealing PA/FiO2 ratio of 147. Overnight sedation was changed from fentanyl to morphine we will continue to titrate up morphine based on his hemodynamic stability. Patient became hypertensive and we suspect he requires more sedation so we will increase morphine. We will continue with paralytic use for 1 more day and discontinue tomorrow after 3 total days of paralytics. Patient's vancomycin was discontinued by infectious disease due to the fact that he remains on Bactrim. Dr Hope did suggest ordering a G6PD test to assess for G6PD deficiency in case we do switch to dapsone. Continuing with Bactrim, micafungin, and Zosyn. Transaminitis is continuing to improve and patient remains on Nepro with tube feeds at 40 cc an hour with low amounts of residuals. Last bowel movement was noted to be June 08 and he is receiving GI prophylaxis with Protonix. Hyperkalemia this morning appear to have been resolved with most recent potassium noted at 4.6. We will repeat another potassium at 2 PM to see if patient will require further hemodialysis but we will also initiate Lasix 40 mg IV push twice daily for diuresis in hopes that that will contribute to decreasing his hyperkalemia and help improve his potassium. Continues to remain anemic with iron deficiency anemia but hemoglobin is stable and is not a candidate for blood transfusion or iron repletion currently. 06/11/24: Patient was seen and examined by the bedside. No acute overnight events. No fevers overnight. Patient oxygen requirements decreased a little bit, his ABGs showed pH 7.35 slightly improved oxygenation. P:F ratio is 175. Chest Xray showed improvement compared to yesterday. Patient had a urine output of 5.3L, negative balance -4.4L. Cisatracurium is discontinued today, will try to slowly titrate down the sedation. Continues to receive bactrim, zosyn, micafungin. Repeat blood cultures, urine cultures are negative. ETT secretions grew GPC. ID is following patient. 06/12/24: Patient was seen and examined by the bedside. No acute overnight events. No fevers overnight. Patient had an awakening trial today due to his improvement in oxygenation. He was able to continue on spontaneous mode PS for a few hours, but due to agitation he was sedated again, but continued on spontaneous PS. ABGs showed pH 7.48, pCO2 63, pO2 78. PF ratio is 217. Will try awakening trial tomorrow again. Will keep his sedated throughout the night while on AC. Added oral morphine to decrease respiratory distress and sedation, will try to downtitrate propofol. Discontinued fluconazole. 06/13/24: Patient was seen and examined by the bedside. No fevers overnight. Saturates well on FiO2 of 50. Overnight patient was double stacking, pulling hide tidal volume on volume control, received midazolam 2 mg pushes for sedation, was also started on Precedex drip. Will try awakening trial today. Continues to be on morphine drip and oral morphine. In the morning was switched to PS 8, PEEP 10, FiO2 50. Will continue Bactrim and micafungin, length of course 21 days. Continue Zosyn for HAP. Sedation was turned off for awakening trial, patient was able to breath spontaneously, but did not follow commands. He became agitated, was inhaling high VT, BP went up to 180/88, was sedated again. Will switch him back to VC mode overnight. Family was advised to spend time with him. 06/14/24: Patient was seen and examined by the bedside. No fevers overnight. Saturates well on FiO2 of 60. Overnight patient was on PC, RR 14 but was tachypneic, double stacking, pulling high tidal volume, received midazolam 4 mg pushes for sedation, continued to be on Precedex drip and propofol. Continues to be on oral morphine, morphine drip was discontinued. Patient started on SPONT PS in the morning again. Sedation was turned off for awakening trial, patient was able to breath spontaneously, but did not follow commands, does not open his eyes to the speech. He became agitated, was inhaling high VT, was sedated again.Due to his mental status, patient is not a candidate for extubation at the moment. Will switch him back to VC mode overnight. Family was advised to spend time with him, to talk to him and support. His ABGs showed improvement of hypercapnia and respiratory acidosis. Will continue Bactrim and micafungin, length of course 21 days. Continue Zosyn for HAP. 06/15/24: Overnight, the patient was noted to be tachypneic to the 50s on volume control, propofol and dexmedetomine for sedation, had been off of morphine drip. He required 2 pushes of midazolam 4 mg IV, 1 push of morphine 4 mg IV, and a push of ketamine 50 mg. Patient also had fevers up to 102.0 and received acetaminophen overnight. This morning patient continued to have tachypneic episodes to the 40s. Dr. Anderson used bedside Glidescope to visualize placement of ET tube which was in correct positioning and performed small amounts of suctioning. CXR was retaken which showed possible worsening right lower infiltrate. He was placed on 100% FiO2. The patient was ultimately fully sedated and paralyzed again, throughout the day given ketamine 50 mg x1, morphine 5 mg x2, midazolam 4 mg x2, extra pushes of 60 mg propofol, and cisatracurium 20 mg x4. Fentanyl was restarted, oral morphine was stopped. Methadone 5 mg x1 was also given for possible morphine withdrawal. Propofol was uptitrated. Goal for tonight is fentanyl at 150 and propofol at 50 with RASS -5. He received another acetaminophen 1000 mg. 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 Meropenem will also be continued for broad coverage. Second organism is staph haemolyticus which is a commensal organism and per ID no concern for infectious source, regardless linezolid is shown as sensitive for both. Continue with micafungin prophylactically and Bactrim, Solu-Medrol for PCP. New blood cultures and ET cultures sent today. ABGs showed continued severe respiratory acidosis pH 7.03, pCO2 121, pO2 99, HCO3 32, q4h checks are scheduled, and the patient has been placed on bicarb drip and also received 50 mEq sodium bicarb x3 pushes. Patient was proned around 13:00 and will be turned in the morning. Patient was also started on heparin drip for suspected PE. Doppler was not completed due to patient proned position. A right upper quadrant US was also done today due to uptrended Tbili to 1.3 and AST 303, ALT 420, US showed no cholelithiasis and no obvious sign of cholecystitis. 06/17/2024: Patient was seen and examined by the bedside. Overnight he continued to maintain saturation, was put back into supine position in the morning. No fevers overnight, saturates well on 40% FiO2. Continues to be sedated and paralyzed continues to receive Bactrim, micafungin, methylprednisone, meropenem, linezolid. Continues heparin drip. Possible tracheostomy on Thursday. Due to edema of the right upper extremity and vesicles, arterial line was placed on the left arm, consent was given by the decision-maker Francesca. Head CT was negative for stroke, hemorrhage, chest CTA was negative for PE, Doppler ultrasound of upper extremities showed acute DVT in the right subclavian and right axillary vein. Patient was started on heparin drip yesterday continues to receive heparin. ABG showed pH 7.29, pCO2 106, pO2 61, will continue with permissive hypercapnia. Will continue with bicarb and hyperventilation for respiratory acidosis. Exam Vital Signs Temp Pulse Resp BP Pulse Ox O2 Del Method O2 Flow Rate 96.9 F 111 H 30 H 144/72 H 92 L Mechanical Ventilation 40 06/17/24 16:00 06/17/24 16:00 06/17/24 16:00 06/17/24 16:00 06/17/24 16:00 06/15/24 16:00 06/09/24 12:16 FiO2 40 06/17/24 15:03 Narrative Exam Physical Exam General: Well nourished male, sedated. HEENT: Normocephalic, atraumatic, mucous membranes moist, ET tube in place. Heart: Tachycardic rate and regular rhythm, no murmurs. Lungs: Bilateral rhonchi present. Abdomen: Soft, nondistended, nontender, positive bowel sounds. ?No guarding or rebound tenderness. Neurologic: Patient sedated, paralyzed. Extremities: Right upper extremity edema, vesicles 1-2 cm on the forearm surface. Skin: No rash or ecchymoses. Objective Labs 06/18/24 05:40 06/18/24 05:40 Labs: Laboratory Results - last 24 hr 06/16/24 06/16/24 06/17/24 15:41 23:17 05:06 WBC RBC Hgb Hct MCV MCH MCHC RDW Std Deviation Plt Count Neut % (Auto) Lymph % (Auto) [place] % (Auto) Eos % (Auto) Baso % (Auto) Neut # (Auto) Lymph # (Auto) [place] # (Auto) Eos # (Auto) Baso # (Auto) Immature Gran # (Auto) Absolute Nucleated RBC Immature Gran % Nucleated RBC % PT INR APTT 62.5 H Puncture Site Arterial Line ABG pH 7.33 L ABG pCO2 96 H* ABG pO2 126 H D ABG HCO3 50 H ABG O2 Saturation 99 H ABG Base Excess 21 H FiO2 60 Sodium 137 Potassium 3.7 D Chloride 94 L Carbon Dioxide > 40.0 H Anion Gap 3 L BUN 23 Creatinine 0.6 D Estim Creat Clear Calc 150.6 eGFR > 60 BUN/Creatinine Ratio 38 H Glucose 148 H D Calculated Osmolality 280 Calcium 8.0 L Corrected Calcium 9.0 Total Bilirubin 0.4 AST 111 H ALT 257 H Alkaline Phosphatase 125 H D Total Creatine Kinase 379 H D Total Protein 5.4 L Albumin 2.7 L D Globulin 2.7 Albumin/Globulin Ratio 1.0 L Triglycerides 157 H 06/17/24 06/17/24 06/17/24 05:42 10:58 13:55 WBC 5.1 D RBC 3.69 L Hgb 8.7 L Hct 28.6 L MCV 78 L MCH 23.6 L MCHC 30.4 L RDW Std Deviation 56.4 H Plt Count 146 Neut % (Auto) 85 H Lymph % (Auto) 4 L [place] % (Auto) 3 Eos % (Auto) 8 Baso % (Auto) 0 Neut # (Auto) 4.3 Lymph # (Auto) 0.2 L [place] # (Auto) 0.1 Eos # (Auto) 0.4 Baso # (Auto) 0.0 Immature Gran # (Auto) 0.03 H Absolute Nucleated RBC 0.00 Immature Gran % 1 H Nucleated RBC % 0 PT 12.2 INR 1.1 APTT 55.0 H Puncture Site Arterial Line Arterial Line ABG pH 7.29 L 7.29 L ABG pCO2 106 H* D 106 H* ABG pO2 58 L* D 61 L ABG HCO3 51 H 51 H ABG O2 Saturation 87 L 88 L ABG Base Excess 21 H 21 H FiO2 40 40 Sodium 136 Potassium 3.7 Chloride 90 L Carbon Dioxide > 40.0 H Anion Gap 6 L BUN 19 Creatinine 0.5 L Estim Creat Clear Calc 180.8 eGFR > 60 BUN/Creatinine Ratio 38 H Glucose 104 Calculated Osmolality 274 L Calcium 7.7 L Corrected Calcium 8.5 Total Bilirubin 0.5 AST 88 H ALT 247 H Alkaline Phosphatase 128 H Total Creatine Kinase Total Protein 5.8 Albumin 3.0 L Globulin 2.8 Albumin/Globulin Ratio 1.1 L Triglycerides ABG Interpretation ABG results: 05/27/24 05/29/24 05/29/24 23:37 10:44 22:08 ABG pH 7.51 H 7.50 H 7.48 H ABG pCO2 28 L 32 32 ABG pO2 75 L 79 L 145 H D ABG HCO3 23 25 24 ABG O2 Saturation 96 95 98 ABG Base Excess 0 2 1 05/30/24 05/31/24 06/04/24 08:45 04:54 02:10 ABG pH 7.47 H 7.45 7.45 ABG pCO2 35 38 36 ABG pO2 86 D 82 L 139 H ABG HCO3 26 26 25 ABG O2 Saturation 97 96 98 ABG Base Excess 2 2 1 06/04/24 06/05/24 06/05/24 18:16 11:36 12:59 ABG pH 7.44 7.11 L* D 7.20 L ABG pCO2 36 94 H* D 68 H D ABG pO2 80 L D 150 H D 121 H D ABG HCO3 24 30 H 26 ABG O2 Saturation 94 97 97 ABG Base Excess 0 -2 -3 06/05/24 06/06/24 06/06/24 19:25 04:13 15:27 ABG pH 7.22 L 7.27 L 7.30 L ABG pCO2 64 H 57 H 60 H ABG pO2 122 H 153 H D 74 L D ABG HCO3 26 26 29 H ABG O2 Saturation 97 99 H 92 ABG Base Excess -3 -2 2 06/07/24 06/07/24 06/08/24 03:55 09:59 04:20 ABG pH 7.41 D 7.43 7.45 ABG pCO2 56 H 55 H 50 H ABG pO2 293 H D 78 L D 75 L ABG HCO3 36 H 37 H 35 H ABG O2 Saturation 99 H 95 94 ABG Base Excess 10 H 11 H 10 H 06/08/24 06/08/24 06/08/24 11:05 11:50 13:18 ABG pH 7.17 L* D 7.10 L* 7.15 L* ABG pCO2 95 H* D 115 H* D 88 H* D ABG pO2 89 75 L 72 L ABG HCO3 34 H 36 H 31 H ABG O2 Saturation 92 84 L 85 L ABG Base Excess 3 4 H 0 06/08/24 06/09/24 06/09/24 17:02 01:33 03:15 ABG pH 7.18 L* 7.22 L 7.27 L ABG pCO2 50 H D 91 H* D 82 H* ABG pO2 82 L 105 D 86 ABG HCO3 19 L 37 H 38 H ABG O2 Saturation 93 97 95 ABG Base Excess -9 L 7 H 9 H 06/09/24 06/09/24 06/10/24 05:08 12:52 04:40 ABG pH 7.31 L 7.33 L 7.30 L ABG pCO2 75 H* 57 H D 78 H* D ABG pO2 97 158 H D 65 L D ABG HCO3 38 H 30 H 38 H ABG O2 Saturation 97 99 H 90 L ABG Base Excess 10 H 3 9 H 06/10/24 06/11/24 06/12/24 09:40 04:19 04:15 ABG pH 7.27 L 7.35 7.48 H D ABG pCO2 88 H* D 86 H* 63 H D ABG pO2 65 L 70 L 76 L ABG HCO3 40 H 48 H 47 H ABG O2 Saturation 89 L 93 95 ABG Base Excess 10 H 19 H 21 H 06/13/24 06/14/24 06/15/24 07:22 04:32 03:45 ABG pH 7.46 H 7.48 H 7.46 H ABG pCO2 56 H 40 D 37 ABG pO2 80 L 64 L 71 L ABG HCO3 39 H 30 H 27 H ABG O2 Saturation 95 92 94 ABG Base Excess 13 H 6 H 3 06/15/24 06/15/24 06/15/24 10:17 12:20 14:20 ABG pH 7.01 L* D 7.00 L* 7.03 L* ABG pCO2 122 H* D 130 H* 125 H* ABG pO2 91 D 88 82 L ABG HCO3 31 H 32 H 33 H ABG O2 Saturation 88 L 88 L 87 L ABG Base Excess -3 -2 -1 06/15/24 06/15/24 06/16/24 15:55 20:39 00:35 ABG pH 7.03 L* 7.08 L* 7.10 L* ABG pCO2 121 H* 116 H* 118 H* ABG pO2 99 117 H 102 ABG HCO3 32 H 34 H 37 H ABG O2 Saturation 93 97 96 ABG Base Excess -1 2 4 H 06/16/24 06/16/24 06/17/24 04:45 08:55 05:06 ABG pH 7.17 L* 7.28 L D 7.33 L ABG pCO2 112 H* 88 H* D 96 H* ABG pO2 155 H D 98 D 126 H D ABG HCO3 41 H 41 H 50 H ABG O2 Saturation 99 H 98 99 H ABG Base Excess 9 H 12 H 21 H 06/17/24 06/17/24 10:58 13:55 ABG pH 7.29 L 7.29 L ABG pCO2 106 H* D 106 H* ABG pO2 58 L* D 61 L ABG HCO3 51 H 51 H ABG O2 Saturation 87 L 88 L ABG Base Excess 21 H 21 H Quality Measures Quality Measures sepsis Current suspected stage: sepsis Possible source: pulmonary, GI tract/intra-abdominal, genitourinary and skin/soft tissue Blood cultures ordered: yes Antibiotic ordered: Yes Assessment & Plan Assessment Current Active Medications: Generic Name Dose Route Start Last Admin Trade Name Freq PRN Reason Stop Dose Admin Acetaminophen 975 mg 06/09/24 14:27 06/15/24 02:56 Acetaminophen Munira 325 Mg/10 Ml Udc PO 06/26/24 12:10 975 mg Q6H PRN Administration Pain 1-3 and Fever >101.5 Albuterol/Ipratropium 3 ml 06/05/24 11:40 06/09/24 22:18 Albuterol/Ipratropium (Duoneb) Rt Munira 3 Ml Nebu INH 07/05/24 14:59 3 ml Q4HRRT PRN Administration Wheezing Bisacodyl 5 mg 06/14/24 17:15 06/17/24 09:16 Bisacodyl 5 Mg Tabec PO 07/14/24 17:14 5 mg QDAY JUAN JOSE Administration Protocol Dextrose 25 ml 06/06/24 08:20 Dextrose 50%-Water Inj 50 Ml Syringe IV 07/06/24 08:19 Q15MIN PRN BG 50-70 responsive npo pt Dextrose 50 ml 06/06/24 08:20 Dextrose 50%-Water Inj 50 Ml Syringe IV 07/06/24 08:19 Q15MIN PRN BG <50 OR BG <70 & pt unresponsive Emtricitabine/Tenofovir 1 tab 06/16/24 12:30 06/17/24 09:16 Emtricitabine 200 Mg/Tenofovir 300 Mg Tab (Non-Form) PO 07/16/24 12:29 1 tab QDAY JUAN JOSE Administration Enoxaparin Sodium 40 mg 06/07/24 09:00 06/15/24 08:32 Enoxaparin Sod Inj 40 Mg/0.4 Ml Syringe SC 06/21/24 08:59 40 mg QDAY JUAN JOSE Administration Glucagon 1 mg 06/06/24 08:20 Glucagon Inj 1 Mg Vial IM Q15MIN PRN BG <70, and no IV access Micafungin Sodium 100 mg/ 100 mls @ 100 mls/hr 06/09/24 09:00 06/17/24 09:45 Sodium Chloride IV 06/24/24 08:59 100 mls/hr QDAY JUAN JOSE Administration Meropenem 1,000 mg/ Sodium 50 mls @ 100 mls/hr 06/15/24 14:00 06/17/24 06:31 Chloride IV 06/22/24 13:59 100 mls/hr Q8HR JUAN JOSE Administration Cisatracurium Besylate 200 mg/ 520 mls @ 11.794 mls/hr 06/15/24 10:41 06/17/24 12:00 Sodium Chloride IV 07/15/24 10:40 3 mcg/kg/min .Q24H PRN 35.381 mls/hr Per Protocol Titration Protocol 1 MCG/KG/MIN Linezolid 600 mg in 300 mls @ 300 mls/hr 06/15/24 11:31 06/17/24 09:16 Zyvox Ivpb IV 06/22/24 11:30 300 mls/hr Q12HR JUAN JOSE Administration Heparin Sodium/Dextrose 25,000 unit in 250 mls @ 13.608 mls/hr 06/15/24 14:45 06/17/24 06:31 Heparin In D5w Ivpb IV 06/29/24 14:44 20 units/kg/hr .[id number] JUAN JOSE 15.12 mls/hr Administration Protocol 18 UNITS/KG/HR Propofol 1,000 mg in 100 mls @ 2.268 mls/hr 06/15/24 15:14 06/17/24 12:37 Diprivan Ivpb IV 07/09/24 14:25 50 mcg/kg/min .Q24H PRN 22.68 mls/hr PER PROTOCOL Administration Protocol 5 MCG/KG/MIN Fentanyl Citrate 2,500 mcg in 250 mls @ 2.5 mls/hr 06/15/24 15:14 06/17/24 14:04 Sublimaze Inj 2,500 Mcg/250 Ml Bag IV 06/20/24 10:01 150 mcg/hr .Q24H PRN 15 mls/hr PER PROTOCOL Administration Protocol 25 MCG/HR Methylprednisolone Sodium Succinate 40 mg 06/17/24 12:45 06/17/24 14:02 Methylprednisolone Sod Succ 40 Mg Vial IVP 06/24/24 12:44 40 mg QDAY JUAN JOSE Administration Midazolam HCl 4 mg 06/13/24 16:21 06/15/24 09:27 Midazolam Inj 1 Mg/Ml Vial 2 Ml IV 06/17/24 21:59 4 mg Q2HR PRN Administration agitation, causing vent desynchrony Ondansetron HCl 4 mg 05/29/24 21:51 06/04/24 17:44 Ondansetron Inj 2 Mg/Ml Inj 2 Ml IV 06/28/24 21:50 4 mg Q6HR PRN Administration NAUSEA OR VOMITING Protocol Pantoprazole Sodium 40 mg 06/06/24 09:00 06/17/24 09:16 Pantoprazole Inj 40 Mg Vial IVP 07/06/24 08:59 40 mg QDAY JUAN JOSE Administration Patiromer 8.4 gm 06/09/24 10:45 06/17/24 09:45 Patiromer Calcium 8.4 Gm Packet (Non-Form) NG 07/09/24 10:44 8.4 gm QDAY JUAN JOSE Administration Polyethylene Glycol 17 gm 06/14/24 17:15 06/17/24 09:16 Polyethylene Glycol 17 Gm Packet PO 07/14/24 17:14 17 gm QDAY JUAN JOSE Administration Quetiapine Fumarate 25 mg 06/13/24 21:00 06/16/24 21:26 Quetiapine Fumarate 25 Mg Tablet PO 07/13/24 20:59 25 mg HS JUAN JOSE Administration Raltegravir 400 mg 06/16/24 12:30 06/17/24 09:17 Raltegravir 100 Mg Chew (Non-Form) NG 06/23/24 12:29 400 mg BID JUAN JOSE Administration Sennosides 1 tab 06/11/24 09:00 06/17/24 09:16 Senna Tablet PO 07/11/24 08:59 1 tab QDAY JUAN JOSE Administration Protocol Trimethoprim/Sulfamethoxazole 40 ml 06/15/24 06:00 06/17/24 12:00 Trimethoprim 40 Mg/Sulfa 200 Mg Susp 5 Ml PO 06/22/24 05:59 40 ml QID JUAN JOSE Administration Plan Hospital Course: This is a 39-year-old gentleman with no known previous past medical history who initially presented to [facility] on 05/27/2024 with a chief complaint of shortness of breath and cough, with associated chills, body aches, generalized weakness, fever, and night sweats beginning weeks prior but progressively worsening over a few days. ED work-up revealed extensive bilateral diffuse infiltrate, patient met 4/4 SIRS, was requiring 4L O2, and was subsequently admitted for acute hypoxic respiratory failure secondary to bilateral community-acquired pneumonia of unknown etiology. Procal was only slightly elevated at 0.61 and he was first empirically treated with levofloxacin from 05/27-05/29 for suspicion of atypical pneumonia and fluconazole for cocci coverage. Patient quickly progressed to requiring Hi-Flow oxygen and had multiple rapid response alerts for increasing oxygen requirements and recurrent fevers. He was monitored in ICU from 05/30-05/31, at that time started on steroids and antibiotics were escalated to azithromycin, doxycycline, and Zosyn as well as high dose steroids. He seemed to have improved and was downgraded at that time without needing intubation. ID and Pulmonology were consulted, and the patient was started on Bactrim to cover pneumocystis pneumonia. Several tests which had been sent were negative, including Cocci IgM and IgG, Legionella, and all blood, urine, sputum cultures had been negative at that point. HIV test was reported to be a preliminary positive, and sent out for confirmation studies but result had significant delay. Patient had reported a single sexual partner with his fiance for the last 5 years, last contact few weeks before admission, and denied IV drug usage. He did endorse 1 pack per day smoking history since teenage years, and occasional alcohol and marijuana. He had tattoos done as a young teenager, none recent. He had history of temporary incarceration. After the downgrade, patient developed worsening dyspnea on movement, desaturation, and complaints of work of breathing despite Hi-Flow at 100% FiO2. He was upgraded to ICU again on 06/05 for intubation and bronchoscopy, which showed normal-appearing mucosa, and BAL sample was sent for culture and cytology. Patient was given paralysis and managed with vent settings for ARDS. At this point, autoimmune studies including Rh factor, DANIEL, ANCA, Anti-proteinase 3, Anti-myeloperoxidase, Complement C3/C4c all returned negative. Absolute CD4 count was low at 116. On 06/07, in light of still unconfirmed diagnosis and critical status, patient's named [id number] and decision-maker, sister Francesca, was asked to bring forward any other additional history about patient's substance use, particularly any vape pens or supplements/substances he may have used to investigate for possible Vape-Associated Lung Injury. Sister brought in patient's bag of belongings from home containing vials of trenbolone (anabolic steroid) and testosterone and needles, which sister reports may have been purchased from [facility]. There were additional male enhancement supplements, synthetic urine kit, marijuana wax pen, and cigarette boxes. 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 On 06/08, HIV viral load came back at 5,660,000 copies. HIV 1 antibody was positive. HIV 2 negative. On 06/09, patient was started on antiretrovirals, Truvada and raltegravir. Patient also started having significant hyperkalemia, requiring multiple pushes of insulin, calcium gluconate, and kayexylate, eventually needing dialysis on 06/06, 06/08, and 06/09. Suspected Bactrim adverse effect, Bactrim was continued however to treat PCP. Patient has continued on mechanical ventilation. While he initially succeeded at weaning to spontaneous mode with Pressure Support of 8, FiO2 40% on sedation, it has been a challenge to wean sedation off successfully. Patient would become increasingly tachypneic, with work of breathing and desaturation, and has been unable have sedation low enough to follow commands, eye track, or make purposeful movements. On 06/15, patient had spiked fevers, WBC worsened, and patient had tachypneia again with worsening respiratory acidosis. Patient was proned. PE was suspected and heparin drip was started. ET sputum culture from 06/09 grew VRE enterococcus casseliflavus therefore linezolid and meropenem was started, Zosyn was discontinued. Patient is planned for tracheostomy by 06/20/2024 (Day 16 of intubation) if unable to wean from the vent. NEURO #Acute encephalopathy, secondary to prolonged sedation 06/05/2024 Patient was intubated, sedated, and paralyzed for ARDS. Prior to intubation, patient was awake, alert, and oriented x3, following commands, conversational. Initially, fentanyl was discontinued 06/09 as a sedative due to concern for tachyphylaxis, restarted 06/15 Morphine drip (given in place of fentanyl) was discontinued 06/14 Cisatracurium was discontinued 06/11, restarted 06/15 Plan: -Goal sedation: RASS -5 -Fentanyl at 150 mcg/hr -Propofol at 50 mcg/kg/min -Cisatracurium to target 2/4 ToF twitches -Midazolam 4 mg IV prn for breakthrough agitation #Fever 06/15 Fever overnight with spike at 102.0, acetaminophen 975 mg given with resolution of fever. Possible new ventilator-associated infection? Plan: -Acetaminophen as needed -New blood cultures sent 06/15 -New ET culture sent 06/15 CARDIO #Sinus tachycardia Tachycardia most likely secondary to respiratory distress and agitation. 06/15: Possible new sepsis? Patient with new fevers, increased tachypneia. Low threshold of suspicion for PE, therefore heparin drip was started 06/15. Plan: -Continuous telemetry -Continue sedation with RASS goal -5 for now -Doppler US right upper extremity 06/17/24: right upper extremity DVT. -CTPA negative for PE 06/16/24 #Septic shock, resolved Secondary to severe extensive bilateral pneumonia. Patient was on norepinephrine 06/06-06/10. Currently off pressors. 06/06/2024 Echo was read EF 55-60% 06/09/2024 Blood cultures negative 06/09/2024 Urine culture negative 06/09/2024 ET culture POSITIVE for Staph haemolyticus, Entercoccus casseliflavus vancomycin-resistant PULM #Acute hypoxic respiratory failure Secondary to #Bilateral pneumocystis jirovecii pneumonia #Healthcare associated pneumonia #Ventilator associated pneumonia Patient presented with dyspnea and cough, requiring 4L NC on first ED evaluation, and history of chills, body aches, generalized weakness, fever, and night sweats progressively worsening over the prior weeks. Approx 20-pack year smoking history, occasional marijuana. 05/27/2024 Received ceftriaxone/azithromycin in ED. Started on levofloxacin as an inpatient. 05/28/2024 Started on fluconazole (discontinued 06/12). Started requiring Hi-Flow. 05/30/2024 Upgraded to ICU for close monitoring. Started on doxycycline. Started on azithromycin (completed 5-days). Started on Zosyn (discontinued 06/15). Started Solu-Medrol. 06/01/2024 Downgraded. Started on Bactrim (discontinued doxy). 06/05/2024 Intubation of the patient, return to ICU. Suspected ARDS. Bronchoscopy showed normal-appearing mucosa and no mucous plugging, hemorrhage, or friability bilaterally. Bronchoalveolar washings culture were negative for growth. Fungal cultures are pending. 06/07/2024 Bronchoalveolar lavage cytology shows Pneumocystis jirovecii. Also other fungi, possibly Kassandra. Kassandra is most likely a contaminant. Blood evos-H-qjqwiv also positive. 06/08/2024 HIV quant 5.66 million copies. HIV 1 positive confirmed. Patient was proned due to desaturation event. 06/09/2024 Started on prophylactic micafungin. Started Truvada and raltegravir HAART. Patient's decision-maker, sister Francesca informed of HIV+ and diagnosis. 06/14/2024 ETT sputum cultures from 06/09 positive for Staphylococcus hemolyticus, ID stated that this is not a respiratory pathogen, no need to treat. 06/15/2024 Above #2 pathogen showed vancomycin-resistant enterococcus casseliflavus, started linezolid. Zosyn stopped and meropenem started. 06/15/2024 Increased tachypnea, vent overbreathing, paralyzed and proned. Plan: -Patient was put in the supine position in the a.m. 06/17 -Ventilation on volume control, saturation to be maintained >90%, increased PEEP, increased RR, FiO2 at 100% wean if tolerated -ABG q4h -Continue Bactrim 06/01/24 - to be continued through 06/21 for 21 days of treatment -Discontinued Zosyn 05/30/24-06/15/24 -Continue meropenem 1000 mg q8h 06/15/24- -continue linezolid 600 mg q12h 06/15/24- -Continue micafungin 100 mg qday 06/09/24- -Fungal cultures from BAL pending -DuoNebs q4h as needed -New blood cultures sent 06/15 -New ET culture sent 06/15 #ARDS #Respiratory acidosis Patient continues to have increased oxygen demands with worsening bilateral infiltrates on CXR. Will maintain ARDS ventilation protocol. 06/08/24 P:F ratio 89/1=89. Severe ARDS. 06/09/24 P:F ratio 97/18=905. Moderate ARDS. 06/10/24 P:F ratio 65/69=019 06/11/24 P:F ratio 70/18=163 06/12/24 P:F ratio 217 06/13/24 P:F ratio 160 06/15/24 P:F ratio 91, ABGs showing pH in the 7.00s, elevated pCO2 110-120s. Plan: -VC overnight, maintain PEEP 12-14, FiO2 to maintain saturation 92% -Maintain peak plateau <30 -Improve hypercapnia -Restarted paralytic -Follow up ABG q4h -Methylprednisolone 40 mg qday GI Prophylaxis: Pantoprazole 40 mg IV qday #Elevated LFTs, improving Likely due to propofol and bactrim. Mildly elevated, liver US 05/30/2024 showed normal gallbladder and hepatomegaly without lesions or evidence of obstructions. Hep panel negative. LFTs downtrended compared to 06/06/24. 06/15/2024 Floyd in LFTs with AST 303, ALT 420, Tbili 1.3, therefore right upper quadrant US ordered, negative for cholecystitis/cholelithiasis. No obvious changes on physical exam. Plan: -Continue monitoring NEPHRO #WILL, resolved #Mild hyponatremia #Hyperkalemia #Hyperphosphatemia, resolved Ddx: Prerenal WILL due to hypotension vs possible rhabdomyolysis vs drug toxicity (zosyn, vancomycin, bactrim) Unlikely rhabdomyolysis, CK was 511 06/06, did not uptrend. Urine output is >100 ml/hr, urine is yellow and clear. Possible underlying SIADH. Potassium 06/11/24 4.4. Plan: -Continue Veltassa 8.4 gm qday for potassium chelation -Nephrology Dr. Song is following for as-needed dialysis due to hyperkalemia -Continue free water at 40 ml/hr -Maintain euvolemia -Monitor CMP, especially potassium #Metabolic alkalosis #Respiratory acidosis ABGs are showing acidemia with elevation of pCO2, indicative of primary respiratory acidosis. There is an underlying metabolic alkalosis due to the given bicarb being greater than the expected compensatory bicarb. pH 7.10, pCO2 118, pO2 102, HCO3 37 Plan: -Patient was given 150 mEq bicarb in pushes x3 throughout the day 06/15 for acidemia -Bicarb drip was discontinued -AM lactate was normal URO #No active problems -Tijerina placed 06/05/2024 for strict I&O monitoring HEME #Leukocytosis Fluctuating WBC. In the setting of likely infection, inflammation, and corticosteroids. Plan: -Treatment of pneumonia as above #Microcytic anemia Stable, has not required any transfusions this admission thus far. Clinically no evidence of bleeding. Iron panel shows iron 17, TIBC 262, iron saturation 6, unsaturated iron binding 245. Peripheral blood film confirms microcytic hypochromic anemia with target cells. Also daily lab draws contributing. Plan: -Monitor H&H. Transfusing for Hgb <7 #Thrombocytosis, resolved Likely reactive. -Continue to monitor ENDO #No active problems -Blood glucose on chemistry panels in acceptable range ID #Bilateral pneumocystis pneumonia #Healthcare associated pneumonia #Ventilator associated pneumonia Negative studies: Cocci IgM and IgG, Hepatitis panel, Syphilis, Legionella, H.flu, N.meningitidis, Strep B, Strep pneumoniae, COVID, RSV, Flu A & B. TB quantiferon GOLD-indeterminate, however 06/05 AFB negative, CMV IgM, cryptococcal antigen negative. G6PD levels came back normal for consideration of dapsone alternative to Bactrim if needed. Patient completed 5 day course of azithromycin, 16 days of Zosyn. See Pulm for timeline of antimicrobial coverage. Plan: -Continue Bactrim 06/01/24 - to be continued through 06/21 for 21 days of treatment -Discontinued Zosyn 05/30/24-06/15/24 -Started meropenem 1000 mg q8h 06/15/24- -Started linezolid 600 mg q12h 06/15/24- -Continue micafungin 100 mg qday 06/09/24- -Fungal cultures from BAL pending -New blood cultures sent 06/15 -New ET culture sent 06/15 #AIDS/HIV Patient has Stage 4 HIV, AIDS-defining illness with opportunistic infection. 06/07/2024 Bronchoalveolar lavage cytology shows Pneumocystis jirovecii. Also other fungi, possibly Kassandra. Kassandra is most likely a contaminant. Blood elfq-B-pypwia also positive. 06/08/2024 HIV quant 5.66 million copies. HIV 1 positive confirmed. 06/09/2024 Patient's decision maker, Francesca, was informed of diagnosis due to critical state of patient. Absolute CD4 count 87 and 22% on 06/02. History/risk factors: History of injection anabolic androgenic steroid and testosterone use, possible unclean needles. History of incarceration (unknown time). Tattoos received as a teenager. Has 1 female sexual partner last 5 years, denies others. -Continue HAART: emtricitabine / tenofovir (Truvada) and raltegravir initiated 06/09/24 -Patient is not aware of his diagnosis as he has been intubated and sedated before results returned. Will require complete education and counseling on the disease if his mental status and clinical condition improves. MSK #Elevated creatine kinase Checked CK due to acute WILL, however now resolved. Unlikely to be rhabdo, patient producing adequate clear urine. Most likely elevated due to paralytic use and bedbound status. 06/06 511 06/08 206 06/10 220 Plan: -Continue to monitor urine output and kidney function SKIN #No active problems DVT prophylaxis: Lovenox 40 subQ qday GI prophylaxis: Pantoprazole 40 mg IV qday Diet: Tube feeds Nepro Tijerina: Present (06/05- ) Lines: Peripheral IV, radial arterial line. Antibiotics: Bactrim, meropenem, linelozid, micafungin CODE STATUS: FULL CODE Reason for ICU care: Acute hypoxic respiratory failure secondary to bilateral pneumonia/ARDS Patient plan of care was discussed with the attending physician, Dr. Anderson. Denise Pinzon MD Attending Provider Attestation/Addendum Patient seen and examined with above resident, Denise Pinzon MD. I agree with the findings, assessment, and plan of care as documented except for any differences below. Will continue slow gradual weaning with discontinuation of proning. Today we will continue on Nimbex drip with plan to remove tomorrow if gas exchange is maintained. Patient remains on heparin drip for upper extremity DVT. Will use elevation and warm compresses. Will remove right radial A-line to optimize circulation to the right hand but he does to continue pulses and no evidence of compartment syndrome otherwise. Patient underwent left radial artery cannulation for continued blood pressure monitoring and frequent ABGs. Continue to wean FiO2 and PEEP as tolerated over the coming days. pCO2 has improved and we will discontinue sodium bicarb drip as the pH remains above 7.2 in a safe range. Bicarb on BMP now significantly elevated but will likely correct at the kidneys adjust with improving gas exchange in the coming days to weeks. Patient did have head CT imaging which did not show any focal lesions. He remains encephalopathic secondary to the critical illness and extensive duration of sedation and paralytics. Patient will be difficult to wean a second time and given the risk of recurrent infections with prolonged mechanical ventilation, will plan for potential tracheostomy in the early next week if his ventilator settings are at a range that is safe enough for this to be surgically done. Patient's renal function continues to be stable. We will begin to start tube feeds as appropriate based on gas exchange and monitor for bowel movements with discontinuation of paralytics in the coming days. Patient's family updated extensively at bedside and remain hopeful for his recovery. Antibiotic regimen continues to be rule out based on multiple organisms that he has grown in the setting of his immunosuppression from AIDS/HIV infection. Total critical care time: I personally spent 40 minutes for review of physiologic parameters, directing plan of care throughout the day, coordination of care with other subspecialists, and counseling patient's family at bedside. This is exclusive of time spent teaching housestaff or performing separate billable procedures. Patient continues to require critical care services due to acute hypoxic respiratory failure in setting of PJP pneumonia, new diagnosis of HIV/AIDS. Patient with superimposed ventilator associated pneumonia with multidrug-resistant organism which predisposes him to high risk further morbidity and mortality.
--- NOTE | 2024-06-17 17:40 | PD.RESPROC ---
Procedures Procedure Date / Time 06/17/24 17:30 Procedure Narrative Procedure Narrative: Attending Attestation: I was present for entire procedure. No immediate complications. Patient tolerated procedure well. Minimal blood loss. Arterial Line Indication(s): frequent arterial line sampling, hypoxic resp failure, shock and inability to monitor non-invasive BP Informed consent obtained: obtained from surrogate decision maker Time out done, and the following verified: correct patient, side and site, procedure, patient position and implants and/or equipment Size (Gauge): 20 Technique used: guide wire technique Post-Procedure: line sutured into place and dry sterile dressing placed Patient tolerated procedure: well and no complications EBL(ml): 1 Complications: none Site: left Procedure comment: Procedure done under supervision of attending Dr. Anderson. Denise Pinzon MD, PGY 1.
--- NOTE | 2024-06-17 20:15 | PC.NURSE ---
Pt noted to be bleeding from site of right femoral triple lumen catheter. MD Morelos notified, orders provided to stop Heparin drip overnight. Pressure applied to affected area until no further signs of active bleeding and dressing changed.
[2024-06-17] MEDS: QUEtiapine FUMARATE 25 MG TABLET PO (21:04)
[2024-06-18] VITALS (30 sets, daily range): BP systolic 95–165; BP diastolic 41–82; PULSE 79–100; RESP 19–36; TEMP 36.5–36.9; O2SAT 92–99
[2024-06-18] MEDS: PROPOFOL 1,000 MG IVPB 1,000 MG/100 ML VIAL 22.68 MG IV ×2 (02:25→07:39)
[2024-06-18 04:26] LABS: Base Excess 17 (-3-3); HCO3 45 mEq/L (20-26); Inspired Oxygen, FIO2 40 %; O2 Saturation 95 % (91-98); PCO2 86 mmHg (32.0-48.0); PO2 77 mmHg (83-108); pH, Arterial 7.33 (7.35-7.45)
[2024-06-18 04:29] LABS: Allen Test Not Performed; Puncture Site Arterial Line
[2024-06-18] MEDS: MEROPENEM INJ 1,000 MG in SODIUM CHLORIDE 0.9% (P) 50 ML 100 MG IV ×3 (05:22→21:23)
[2024-06-18] MEDS: SULFA PO ×4 (05:23→20:42)
[2024-06-18] MEDS: TRIMETHOPRIM PO ×4 (05:23→20:42)
--- NOTE | 2024-06-18 06:00 | XR_ITS ---
Examination: AP chest single view Technique: AP portable semiupright chest single view Exam date and time: June 18, 2024 0527 hrs. Comparison June 17, 2024 Indications: Hypoxic respiratory failure, pneumonia ARDS on chest imaging this week. Findings: Severe bilateral lung opacity Endotracheal tube tip 5.5 cm above sunil No pneumothorax Orogastric tube in stomach Impression: No significant change in extensive pneumonia ARDS pattern
[2024-06-18] MEDS: fentaNYL 2,500 MCG/250 ML BAG 2,500 MCG/250 ML BAG 15 MCG IV ×2 (06:02→12:27)
[2024-06-18 06:50] LABS: Basophils % (Auto) 0 % (0-2.5); Eosinophils % (Auto) 1 % (0-10); Immature Granulocytes % (Auto) 0 % (0-0); Immature Granulocytes Auto 0.03 Thou/mm3 (0.00-0.00); Lymphocytes # (Auto) 0.2 Thou/mm3 (1.0-4.8); Lymphocytes % (Auto) 3 % (10-50); Mean Corpuscular HGB Conc 29.3 g/dl (31.0-37.0); Mean Corpuscular Hemoglobin 23.3 pg (25.0-35.0); Mean Corpuscular Volume 79 fL (80-100); Monocytes # (Auto) 0.2 Thou/mm3 (0.0-0.8); Monocytes % (Auto) 3 % (0-12); Neutrophils # (Auto) 6.3 Thou/mm3 (1.8-7.7); Neutrophils % (Auto) 93 % (37-80); Nucleated Red Blood Cell # 0.03 Thou/mm3 (0.00-0.00); Nucleated Red Blood Cell % 0 /100 WBC (0); Platelet Count 162 Thou/mm3 (140-440); RDW Standard Deviation 59.2 fL (35.1-43.9); Red Blood Count 3.78 Miln/mm3 (4.50-5.90); White Blood Count 6.8 Thou/mm3 (3.8-10.6)
[2024-06-18 06:55] LABS: Hemoglobin 8.8 g/dL (13.5-16.0)
[2024-06-18 07:03] LABS: Alanine Aminotransferase 190 U/L (10-49); Albumin, Serum 3.2 gm/dL (3.5-5.0); Albumin/Globulin Ratio 1.1 (1.2-2.2); Alkaline Phosphatase 134 U/L (46-116); Anion Gap 3 (7-16); Aspartate Amino Transferase 81 U/L (0-34); BUN/Creatinine Ratio 25 Ratio (12-20); Bilirubin,Total 0.6 mg/dL (0.3-1.2); Blood Urea Nitrogen 15 mg/dL (9-23); Calcium 8.1 mg/dL (8.3-10.6); Calcium (Corrected) 8.7 mg/dL (8.5-10.1); Carbon Dioxide > 40.0 mMol/L (20.0-31.0); Chloride 90 mMol/L (98-107); Creatinine (Component) 0.6 mg/dL (0.6-1.3); Estimated Creatinine Clearance 168.7 mL/min (>60); Glucose 97 mg/dL (74-106); Osmolality,Calculated 267 (275-295); Sodium 133 mMol/L (136-145); Total Protein 6.2 gm/dL (5.7-8.2); eGFR > 60 See Note
--- NOTE | 2024-06-18 07:56 | PD.IDPROG ---
Subjective Subjective Interval history: value of linezolid low as repeat cx neg, but I assume family wants all rx regardless of value Exam Vital Signs Temp Pulse Resp BP Pulse Ox O2 Del Method O2 Flow Rate 98.2 F 90 31 H 134/68 H 98 Mechanical Ventilation 40 06/18/24 04:00 06/18/24 07:02 06/18/24 07:02 06/18/24 07:02 06/18/24 07:02 06/15/24 16:00 06/09/24 12:16 FiO2 40 06/18/24 07:02 Objective - Internal Medicine Labs 06/18/24 05:40 06/18/24 05:40 Labs: Laboratory Results - last 24 hr 06/17/24 06/17/24 06/18/24 10:58 13:55 04:16 WBC RBC Hgb Hct MCV MCH MCHC RDW Std Deviation Plt Count Neut % (Auto) Lymph % (Auto) [place] % (Auto) Eos % (Auto) Baso % (Auto) Neut # (Auto) Lymph # (Auto) [place] # (Auto) Eos # (Auto) Baso # (Auto) Immature Gran # (Auto) Absolute Nucleated RBC Immature Gran % Nucleated RBC % Puncture Site Arterial Line Arterial Line Arterial Line ABG pH 7.29 L 7.29 L 7.33 L ABG pCO2 106 H* D 106 H* 86 H* D ABG pO2 58 L* D 61 L 77 L ABG HCO3 51 H 51 H 45 H ABG O2 Saturation 87 L 88 L 95 ABG Base Excess 21 H 21 H 17 H FiO2 40 40 40 Sodium Potassium Chloride Carbon Dioxide Anion Gap BUN Creatinine Estim Creat Clear Calc eGFR BUN/Creatinine Ratio Glucose Calculated Osmolality Calcium Corrected Calcium Total Bilirubin AST ALT Alkaline Phosphatase Total Protein Albumin Globulin Albumin/Globulin Ratio 06/18/24 05:40 WBC 6.8 RBC 3.78 L Hgb 8.8 L Hct 30.0 L MCV 79 L MCH 23.3 L MCHC 29.3 L RDW Std Deviation 59.2 H Plt Count 162 Neut % (Auto) 93 H Lymph % (Auto) 3 L [place] % (Auto) 3 Eos % (Auto) 1 Baso % (Auto) 0 Neut # (Auto) 6.3 Lymph # (Auto) 0.2 L [place] # (Auto) 0.2 Eos # (Auto) 0.0 Baso # (Auto) 0.0 Immature Gran # (Auto) 0.03 H Absolute Nucleated RBC 0.03 H Immature Gran % 0 Nucleated RBC % 0 Puncture Site ABG pH ABG pCO2 ABG pO2 ABG HCO3 ABG O2 Saturation ABG Base Excess FiO2 Sodium 133 L Potassium 5.0 D Chloride 90 L Carbon Dioxide > 40.0 H Anion Gap 3 L BUN 15 Creatinine 0.6 Estim Creat Clear Calc 168.7 eGFR > 60 BUN/Creatinine Ratio 25 H Glucose 97 Calculated Osmolality 267 L Calcium 8.1 L Corrected Calcium 8.7 Total Bilirubin 0.6 AST 81 H ALT 190 H Alkaline Phosphatase 134 H Total Protein 6.2 Albumin 3.2 L Globulin 3.0 Albumin/Globulin Ratio 1.1 L ABG Interpretation ABG results: 05/27/24 05/29/24 05/29/24 23:37 10:44 22:08 ABG pH 7.51 H 7.50 H 7.48 H ABG pCO2 28 L 32 32 ABG pO2 75 L 79 L 145 H D ABG HCO3 23 25 24 ABG O2 Saturation 96 95 98 ABG Base Excess 0 2 1 05/30/24 05/31/24 06/04/24 08:45 04:54 02:10 ABG pH 7.47 H 7.45 7.45 ABG pCO2 35 38 36 ABG pO2 86 D 82 L 139 H ABG HCO3 26 26 25 ABG O2 Saturation 97 96 98 ABG Base Excess 2 2 1 06/04/24 06/05/24 06/05/24 18:16 11:36 12:59 ABG pH 7.44 7.11 L* D 7.20 L ABG pCO2 36 94 H* D 68 H D ABG pO2 80 L D 150 H D 121 H D ABG HCO3 24 30 H 26 ABG O2 Saturation 94 97 97 ABG Base Excess 0 -2 -3 06/05/24 06/06/24 06/06/24 19:25 04:13 15:27 ABG pH 7.22 L 7.27 L 7.30 L ABG pCO2 64 H 57 H 60 H ABG pO2 122 H 153 H D 74 L D ABG HCO3 26 26 29 H ABG O2 Saturation 97 99 H 92 ABG Base Excess -3 -2 2 06/07/24 06/07/24 06/08/24 03:55 09:59 04:20 ABG pH 7.41 D 7.43 7.45 ABG pCO2 56 H 55 H 50 H ABG pO2 293 H D 78 L D 75 L ABG HCO3 36 H 37 H 35 H ABG O2 Saturation 99 H 95 94 ABG Base Excess 10 H 11 H 10 H 06/08/24 06/08/24 06/08/24 11:05 11:50 13:18 ABG pH 7.17 L* D 7.10 L* 7.15 L* ABG pCO2 95 H* D 115 H* D 88 H* D ABG pO2 89 75 L 72 L ABG HCO3 34 H 36 H 31 H ABG O2 Saturation 92 84 L 85 L ABG Base Excess 3 4 H 0 06/08/24 06/09/24 06/09/24 17:02 01:33 03:15 ABG pH 7.18 L* 7.22 L 7.27 L ABG pCO2 50 H D 91 H* D 82 H* ABG pO2 82 L 105 D 86 ABG HCO3 19 L 37 H 38 H ABG O2 Saturation 93 97 95 ABG Base Excess -9 L 7 H 9 H 06/09/24 06/09/24 06/10/24 05:08 12:52 04:40 ABG pH 7.31 L 7.33 L 7.30 L ABG pCO2 75 H* 57 H D 78 H* D ABG pO2 97 158 H D 65 L D ABG HCO3 38 H 30 H 38 H ABG O2 Saturation 97 99 H 90 L ABG Base Excess 10 H 3 9 H 06/10/24 06/11/24 06/12/24 09:40 04:19 04:15 ABG pH 7.27 L 7.35 7.48 H D ABG pCO2 88 H* D 86 H* 63 H D ABG pO2 65 L 70 L 76 L ABG HCO3 40 H 48 H 47 H ABG O2 Saturation 89 L 93 95 ABG Base Excess 10 H 19 H 21 H 06/13/24 06/14/24 06/15/24 07:22 04:32 03:45 ABG pH 7.46 H 7.48 H 7.46 H ABG pCO2 56 H 40 D 37 ABG pO2 80 L 64 L 71 L ABG HCO3 39 H 30 H 27 H ABG O2 Saturation 95 92 94 ABG Base Excess 13 H 6 H 3 1106/15/24 06/15/24 10:17 12:20 14:20 ABG pH 7.01 L* D 7.00 L* 7.03 L* ABG pCO2 122 H* D 130 H* 125 H* ABG pO2 91 D 88 82 L ABG HCO3 31 H 32 H 33 H ABG O2 Saturation 88 L 88 L 87 L ABG Base Excess -3 -2 -1 06/15/24 06/15/24 06/16/24 15:55 20:39 00:35 ABG pH 7.03 L* 7.08 L* 7.10 L* ABG pCO2 121 H* 116 H* 118 H* ABG pO2 99 117 H 102 ABG HCO3 32 H 34 H 37 H ABG O2 Saturation 93 97 96 ABG Base Excess -1 2 4 H 06/16/24 06/16/24 06/17/24 04:45 08:55 05:06 ABG pH 7.17 L* 7.28 L D 7.33 L ABG pCO2 112 H* 88 H* D 96 H* ABG pO2 155 H D 98 D 126 H D ABG HCO3 41 H 41 H 50 H ABG O2 Saturation 99 H 98 99 H ABG Base Excess 9 H 12 H 21 H 06/17/24 06/17/24 06/18/24 10:58 13:55 04:16 ABG pH 7.29 L 7.29 L 7.33 L ABG pCO2 106 H* D 106 H* 86 H* D ABG pO2 58 L* D 61 L 77 L ABG HCO3 51 H 51 H 45 H ABG O2 Saturation 87 L 88 L 95 ABG Base Excess 21 H 21 H 17 H Assessment & Plan A&P Narrative pneumonia. cocci neg. procal not neg.pjp on bal noted. hiv. infection, newly discovered in a heterosexual man. can not r/o ivdu resp failure, hypoxic jo ann, resolved. acute febrile illness. cause uncertain. he has hiv, gf needs to be tested. ok to start rx with whatever the facility has available.I will see him again on Thursday. ok for bactrim and steroids for now. If bc pos, please remove hd line if possible. crytpo ag neg. As noted before, not every one survives, he is only 39, but is newly discovered to have a very bad disease that is easier to manage if caught earlier. ok to maintain steroid rxn. for now. repeat cx noted. ok to be off flucon as cd4 >100 and crypto ag neg. Time Spent With Patient Time: Total time spent is greater than 50% in coordination of care (as documented) at patient's floor/unit and/or counseling patient:
--- NOTE | 2024-06-18 09:11 | PD.RESPRO ---
Documentation for date of: 06/18/24 Subjective Subjective Interval history: 06/10/24: Patient is doing better today with ABG for this morning revealing a CO2 of 78 and a pH of 7.30. We are allowing for permissive hypercapnia and O2 65. Revealing PA/FiO2 ratio of 147. Overnight sedation was changed from fentanyl to morphine we will continue to titrate up morphine based on his hemodynamic stability. Patient became hypertensive and we suspect he requires more sedation so we will increase morphine. We will continue with paralytic use for 1 more day and discontinue tomorrow after 3 total days of paralytics. Patient's vancomycin was discontinued by infectious disease due to the fact that he remains on Bactrim. Dr Hope did suggest ordering a G6PD test to assess for G6PD deficiency in case we do switch to dapsone. Continuing with Bactrim, micafungin, and Zosyn. Transaminitis is continuing to improve and patient remains on Nepro with tube feeds at 40 cc an hour with low amounts of residuals. Last bowel movement was noted to be June 08 and he is receiving GI prophylaxis with Protonix. Hyperkalemia this morning appear to have been resolved with most recent potassium noted at 4.6. We will repeat another potassium at 2 PM to see if patient will require further hemodialysis but we will also initiate Lasix 40 mg IV push twice daily for diuresis in hopes that that will contribute to decreasing his hyperkalemia and help improve his potassium. Continues to remain anemic with iron deficiency anemia but hemoglobin is stable and is not a candidate for blood transfusion or iron repletion currently. 06/11/24: Patient was seen and examined by the bedside. No acute overnight events. No fevers overnight. Patient oxygen requirements decreased a little bit, his ABGs showed pH 7.35 slightly improved oxygenation. P:F ratio is 175. Chest Xray showed improvement compared to yesterday. Patient had a urine output of 5.3L, negative balance -4.4L. Cisatracurium is discontinued today, will try to slowly titrate down the sedation. Continues to receive bactrim, zosyn, micafungin. Repeat blood cultures, urine cultures are negative. ETT secretions grew GPC. ID is following patient. 06/12/24: Patient was seen and examined by the bedside. No acute overnight events. No fevers overnight. Patient had an awakening trial today due to his improvement in oxygenation. He was able to continue on spontaneous mode PS for a few hours, but due to agitation he was sedated again, but continued on spontaneous PS. ABGs showed pH 7.48, pCO2 63, pO2 78. PF ratio is 217. Will try awakening trial tomorrow again. Will keep his sedated throughout the night while on AC. Added oral morphine to decrease respiratory distress and sedation, will try to downtitrate propofol. Discontinued fluconazole. 06/13/24: Patient was seen and examined by the bedside. No fevers overnight. Saturates well on FiO2 of 50. Overnight patient was double stacking, pulling hide tidal volume on volume control, received midazolam 2 mg pushes for sedation, was also started on Precedex drip. Will try awakening trial today. Continues to be on morphine drip and oral morphine. In the morning was switched to PS 8, PEEP 10, FiO2 50. Will continue Bactrim and micafungin, length of course 21 days. Continue Zosyn for HAP. Sedation was turned off for awakening trial, patient was able to breath spontaneously, but did not follow commands. He became agitated, was inhaling high VT, BP went up to 180/88, was sedated again. Will switch him back to VC mode overnight. Family was advised to spend time with him. 06/14/24: Patient was seen and examined by the bedside. No fevers overnight. Saturates well on FiO2 of 60. Overnight patient was on PC, RR 14 but was tachypneic, double stacking, pulling high tidal volume, received midazolam 4 mg pushes for sedation, continued to be on Precedex drip and propofol. Continues to be on oral morphine, morphine drip was discontinued. Patient started on SPONT PS in the morning again. Sedation was turned off for awakening trial, patient was able to breath spontaneously, but did not follow commands, does not open his eyes to the speech. He became agitated, was inhaling high VT, was sedated again.Due to his mental status, patient is not a candidate for extubation at the moment. Will switch him back to VC mode overnight. Family was advised to spend time with him, to talk to him and support. His ABGs showed improvement of hypercapnia and respiratory acidosis. Will continue Bactrim and micafungin, length of course 21 days. Continue Zosyn for HAP. 06/15/24: Overnight, the patient was noted to be tachypneic to the 50s on volume control, propofol and dexmedetomine for sedation, had been off of morphine drip. He required 2 pushes of midazolam 4 mg IV, 1 push of morphine 4 mg IV, and a push of ketamine 50 mg. Patient also had fevers up to 102.0 and received acetaminophen overnight. This morning patient continued to have tachypneic episodes to the 40s. Dr. Anderson used bedside Glidescope to visualize placement of ET tube which was in correct positioning and performed small amounts of suctioning. CXR was retaken which showed possible worsening right lower infiltrate. He was placed on 100% FiO2. The patient was ultimately fully sedated and paralyzed again, throughout the day given ketamine 50 mg x1, morphine 5 mg x2, midazolam 4 mg x2, extra pushes of 60 mg propofol, and cisatracurium 20 mg x4. Fentanyl was restarted, oral morphine was stopped. Methadone 5 mg x1 was also given for possible morphine withdrawal. Propofol was uptitrated. Goal for tonight is fentanyl at 150 and propofol at 50 with RASS -5. He received another acetaminophen 1000 mg. 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 Meropenem will also be continued for broad coverage. Second organism is staph haemolyticus which is a commensal organism and per ID no concern for infectious source, regardless linezolid is shown as sensitive for both. Continue with micafungin prophylactically and Bactrim, Solu-Medrol for PCP. New blood cultures and ET cultures sent today. ABGs showed continued severe respiratory acidosis pH 7.03, pCO2 121, pO2 99, HCO3 32, q4h checks are scheduled, and the patient has been placed on bicarb drip and also received 50 mEq sodium bicarb x3 pushes. Patient was proned around 13:00 and will be turned in the morning. Patient was also started on heparin drip for suspected PE. Doppler was not completed due to patient proned position. A right upper quadrant US was also done today due to uptrended Tbili to 1.3 and AST 303, ALT 420, US showed no cholelithiasis and no obvious sign of cholecystitis. 06/17/2024: Patient was seen and examined by the bedside. Overnight he continued to maintain saturation, was put back into supine position in the morning. No fevers overnight, saturates well on 40% FiO2. Continues to be sedated and paralyzed continues to receive Bactrim, micafungin, methylprednisone, meropenem, linezolid. Continues heparin drip. Possible tracheostomy on Thursday. Due to edema of the right upper extremity and vesicles, arterial line was placed on the left arm, consent was given by the decision-maker Francesca. Head CT was negative for stroke, hemorrhage, chest CTA was negative for PE, Doppler ultrasound of upper extremities showed acute DVT in the right subclavian and right axillary vein. Patient was started on heparin drip yesterday continues to receive heparin. ABG showed pH 7.29, pCO2 106, pO2 61, will continue with permissive hypercapnia. Will continue with bicarb and hyperventilation for respiratory acidosis. 06/18/2024: Patient was seen and examined by the bedside. Last evening there was a bleeding from the right femoral central line placed, heparin drip was discontinued. Continues to be sedated and paralyzed. Repeat blood and sputum culture came back negative. Will continue heparin drip and sedation, RASS goal -4 until the patient will get a tracheostomy. ABG showed pH 7.33, pCO2 86, pO2 77, PF ratio 192. Nimbex was discontinued today. PEEP was decreased to 8. Exam Vital Signs Temp Pulse Resp BP Pulse Ox O2 Del Method O2 Flow Rate 98.2 F 85 30 H 129/59 L 98 Mechanical Ventilation 40 06/18/24 07:00 06/18/24 08:00 06/18/24 08:00 06/18/24 08:00 06/18/24 08:00 06/15/24 16:00 06/09/24 12:16 FiO2 40 06/18/24 08:00 Narrative Exam Physical Exam General: Well nourished male, sedated. HEENT: Normocephalic, atraumatic, mucous membranes moist, ET tube in place. Heart: Tachycardic rate and regular rhythm, no murmurs. Lungs: Bilateral rhonchi present. Abdomen: Soft, nondistended, nontender, positive bowel sounds. ?No guarding or rebound tenderness. Neurologic: Patient sedated, paralyzed. Extremities: Right upper extremity edema, vesicles 1-2 cm on the forearm surface. Skin: No rash or ecchymoses. Objective Labs 06/18/24 05:40 06/18/24 05:40 Labs: Laboratory Results - last 24 hr 06/17/24 06/17/24 06/18/24 10:58 13:55 04:16 WBC RBC Hgb Hct MCV MCH MCHC RDW Std Deviation Plt Count Neut % (Auto) Lymph % (Auto) [place] % (Auto) Eos % (Auto) Baso % (Auto) Neut # (Auto) Lymph # (Auto) [place] # (Auto) Eos # (Auto) Baso # (Auto) Immature Gran # (Auto) Absolute Nucleated RBC Immature Gran % Nucleated RBC % Puncture Site Arterial Line Arterial Line Arterial Line ABG pH 7.29 L 7.29 L 7.33 L ABG pCO2 106 H* D 106 H* 86 H* D ABG pO2 58 L* D 61 L 77 L ABG HCO3 51 H 51 H 45 H ABG O2 Saturation 87 L 88 L 95 ABG Base Excess 21 H 21 H 17 H FiO2 40 40 40 Sodium Potassium Chloride Carbon Dioxide Anion Gap BUN Creatinine Estim Creat Clear Calc eGFR BUN/Creatinine Ratio Glucose Calculated Osmolality Calcium Corrected Calcium Total Bilirubin AST ALT Alkaline Phosphatase Total Protein Albumin Globulin Albumin/Globulin Ratio 06/18/24 05:40 WBC 6.8 RBC 3.78 L Hgb 8.8 L Hct 30.0 L MCV 79 L MCH 23.3 L MCHC 29.3 L RDW Std Deviation 59.2 H Plt Count 162 Neut % (Auto) 93 H Lymph % (Auto) 3 L [place] % (Auto) 3 Eos % (Auto) 1 Baso % (Auto) 0 Neut # (Auto) 6.3 Lymph # (Auto) 0.2 L [place] # (Auto) 0.2 Eos # (Auto) 0.0 Baso # (Auto) 0.0 Immature Gran # (Auto) 0.03 H Absolute Nucleated RBC 0.03 H Immature Gran % 0 Nucleated RBC % 0 Puncture Site ABG pH ABG pCO2 ABG pO2 ABG HCO3 ABG O2 Saturation ABG Base Excess FiO2 Sodium 133 L Potassium 5.0 D Chloride 90 L Carbon Dioxide > 40.0 H Anion Gap 3 L BUN 15 Creatinine 0.6 Estim Creat Clear Calc 168.7 eGFR > 60 BUN/Creatinine Ratio 25 H Glucose 97 Calculated Osmolality 267 L Calcium 8.1 L Corrected Calcium 8.7 Total Bilirubin 0.6 AST 81 H ALT 190 H Alkaline Phosphatase 134 H Total Protein 6.2 Albumin 3.2 L Globulin 3.0 Albumin/Globulin Ratio 1.1 L ABG Interpretation ABG results: 05/27/24 05/29/24 05/29/24 23:37 10:44 22:08 ABG pH 7.51 H 7.50 H 7.48 H ABG pCO2 28 L 32 32 ABG pO2 75 L 79 L 145 H D ABG HCO3 23 25 24 ABG O2 Saturation 96 95 98 ABG Base Excess 0 2 1 05/30/24 05/31/24 06/04/24 08:45 04:54 02:10 ABG pH 7.47 H 7.45 7.45 ABG pCO2 35 38 36 ABG pO2 86 D 82 L 139 H ABG HCO3 26 26 25 ABG O2 Saturation 97 96 98 ABG Base Excess 2 2 1 06/04/24 06/05/24 06/05/24 18:16 11:36 12:59 ABG pH 7.44 7.11 L* D 7.20 L ABG pCO2 36 94 H* D 68 H D ABG pO2 80 L D 150 H D 121 H D ABG HCO3 24 30 H 26 ABG O2 Saturation 94 97 97 ABG Base Excess 0 -2 -3 06/05/24 06/06/24 06/06/24 19:25 04:13 15:27 ABG pH 7.22 L 7.27 L 7.30 L ABG pCO2 64 H 57 H 60 H ABG pO2 122 H 153 H D 74 L D ABG HCO3 26 26 29 H ABG O2 Saturation 97 99 H 92 ABG Base Excess -3 -2 2 06/07/24 06/07/24 06/08/24 03:55 09:59 04:20 ABG pH 7.41 D 7.43 7.45 ABG pCO2 56 H 55 H 50 H ABG pO2 293 H D 78 L D 75 L ABG HCO3 36 H 37 H 35 H ABG O2 Saturation 99 H 95 94 ABG Base Excess 10 H 11 H 10 H 06/08/24 06/08/24 06/08/24 11:05 11:50 13:18 ABG pH 7.17 L* D 7.10 L* 7.15 L* ABG pCO2 95 H* D 115 H* D 88 H* D ABG pO2 89 75 L 72 L ABG HCO3 34 H 36 H 31 H ABG O2 Saturation 92 84 L 85 L ABG Base Excess 3 4 H 0 06/08/24 06/09/24 06/09/24 17:02 01:33 03:15 ABG pH 7.18 L* 7.22 L 7.27 L ABG pCO2 50 H D 91 H* D 82 H* ABG pO2 82 L 105 D 86 ABG HCO3 19 L 37 H 38 H ABG O2 Saturation 93 97 95 ABG Base Excess -9 L 7 H 9 H 06/09/24 06/09/24 06/10/24 05:08 12:52 04:40 ABG pH 7.31 L 7.33 L 7.30 L ABG pCO2 75 H* 57 H D 78 H* D ABG pO2 97 158 H D 65 L D ABG HCO3 38 H 30 H 38 H ABG O2 Saturation 97 99 H 90 L ABG Base Excess 10 H 3 9 H 06/10/24 06/11/24 06/12/24 09:40 04:19 04:15 ABG pH 7.27 L 7.35 7.48 H D ABG pCO2 88 H* D 86 H* 63 H D ABG pO2 65 L 70 L 76 L ABG HCO3 40 H 48 H 47 H ABG O2 Saturation 89 L 93 95 ABG Base Excess 10 H 19 H 21 H 06/13/24 06/14/24 06/15/24 07:22 04:32 03:45 ABG pH 7.46 H 7.48 H 7.46 H ABG pCO2 56 H 40 D 37 ABG pO2 80 L 64 L 71 L ABG HCO3 39 H 30 H 27 H ABG O2 Saturation 95 92 94 ABG Base Excess 13 H 6 H 3 06/15/24 06/15/24 06/15/24 10:17 12:20 14:20 ABG pH 7.01 L* D 7.00 L* 7.03 L* ABG pCO2 122 H* D 130 H* 125 H* ABG pO2 91 D 88 82 L ABG HCO3 31 H 32 H 33 H ABG O2 Saturation 88 L 88 L 87 L ABG Base Excess -3 -2 -1 06/15/24 06/15/24 06/16/24 15:55 20:39 00:35 ABG pH 7.03 L* 7.08 L* 7.10 L* ABG pCO2 121 H* 116 H* 118 H* ABG pO2 99 117 H 102 ABG HCO3 32 H 34 H 37 H ABG O2 Saturation 93 97 96 ABG Base Excess -1 2 4 H 06/16/24 06/16/24 06/17/24 04:45 08:55 05:06 ABG pH 7.17 L* 7.28 L D 7.33 L ABG pCO2 112 H* 88 H* D 96 H* ABG pO2 155 H D 98 D 126 H D ABG HCO3 41 H 41 H 50 H ABG O2 Saturation 99 H 98 99 H ABG Base Excess 9 H 12 H 21 H 06/17/24 06/17/24 06/18/24 10:58 13:55 04:16 ABG pH 7.29 L 7.29 L 7.33 L ABG pCO2 106 H* D 106 H* 86 H* D ABG pO2 58 L* D 61 L 77 L ABG HCO3 51 H 51 H 45 H ABG O2 Saturation 87 L 88 L 95 ABG Base Excess 21 H 21 H 17 H Quality Measures Quality Measures sepsis Current suspected stage: ruled out Possible source: pulmonary, GI tract/intra-abdominal, genitourinary and skin/soft tissue Blood cultures ordered: yes Antibiotic ordered: Yes Assessment & Plan Assessment Current Active Medications: Generic Name Dose Route Start Last Admin Trade Name Freq PRN Reason Stop Dose Admin Acetaminophen 975 mg 06/09/24 14:27 06/15/24 02:56 Acetaminophen Munira 325 Mg/10 Ml Udc PO 06/26/24 12:10 975 mg Q6H PRN Administration Pain 1-3 and Fever >101.5 Albuterol/Ipratropium 3 ml 06/05/24 11:40 06/09/24 22:18 Albuterol/Ipratropium (Duoneb) Rt Munira 3 Ml Nebu INH 07/05/24 14:59 3 ml Q4HRRT PRN Administration Wheezing Bisacodyl 5 mg 06/14/24 17:15 06/17/24 09:16 Bisacodyl 5 Mg Tabec PO 07/14/24 17:14 5 mg QDAY JUAN JOSE Administration Protocol Dextrose 25 ml 06/06/24 08:20 Dextrose 50%-Water Inj 50 Ml Syringe IV 07/06/24 08:19 Q15MIN PRN BG 50-70 responsive npo pt Dextrose 50 ml 06/06/24 08:20 Dextrose 50%-Water Inj 50 Ml Syringe IV 07/06/24 08:19 Q15MIN PRN BG <50 OR BG <70 & pt unresponsive Emtricitabine/Tenofovir 1 tab 06/16/24 12:30 06/17/24 09:16 Emtricitabine 200 Mg/Tenofovir 300 Mg Tab (Non-Form) PO 07/16/24 12:29 1 tab QDAY JUAN JOSE Administration Enoxaparin Sodium 40 mg 06/07/24 09:00 06/15/24 08:32 Enoxaparin Sod Inj 40 Mg/0.4 Ml Syringe SC 06/21/24 08:59 40 mg QDAY JUAN JOSE Administration Glucagon 1 mg 06/06/24 08:20 Glucagon Inj 1 Mg Vial IM Q15MIN PRN BG <70, and no IV access Micafungin Sodium 100 mg/ 100 mls @ 100 mls/hr 06/09/24 09:00 06/17/24 09:45 Sodium Chloride IV 06/24/24 08:59 100 mls/hr QDAY JUAN JOSE Administration Meropenem 1,000 mg/ Sodium 50 mls @ 100 mls/hr 06/15/24 14:00 06/18/24 05:22 Chloride IV 06/22/24 13:59 100 mls/hr Q8HR JUAN JOSE Administration Cisatracurium Besylate 200 mg/ 520 mls @ 11.794 mls/hr 06/15/24 10:41 06/18/24 08:00 Sodium Chloride IV 07/15/24 10:40 3 mcg/kg/min .Q24H PRN 35.381 mls/hr Per Protocol Titration Protocol 1 MCG/KG/MIN Linezolid 600 mg in 300 mls @ 300 mls/hr 06/15/24 11:31 06/17/24 21:04 Zyvox Ivpb IV 06/22/24 11:30 300 mls/hr Q12HR JUAN JOSE Administration Heparin Sodium/Dextrose 25,000 unit in 250 mls @ 13.608 mls/hr 06/15/24 14:45 06/17/24 20:00 Heparin In D5w Ivpb IV 06/29/24 14:44 0 units/kg/hr .[id number] JUAN JOSE 0 mls/hr Titration Protocol 18 UNITS/KG/HR Propofol 1,000 mg in 100 mls @ 2.268 mls/hr 06/15/24 15:14 06/18/24 07:39 Diprivan Ivpb IV 07/09/24 14:25 50 mcg/kg/min .Q24H PRN 22.68 mls/hr PER PROTOCOL Administration Protocol 5 MCG/KG/MIN Fentanyl Citrate 2,500 mcg in 250 mls @ 2.5 mls/hr 06/15/24 15:14 06/18/24 08:00 Sublimaze Inj 2,500 Mcg/250 Ml Bag IV 06/20/24 10:01 150 mcg/hr .Q24H PRN 15 mls/hr PER PROTOCOL Titration Protocol 25 MCG/HR Methylprednisolone Sodium Succinate 40 mg 06/17/24 12:45 06/17/24 14:02 Methylprednisolone Sod Succ 40 Mg Vial IVP 06/24/24 12:44 40 mg QDAY JUAN JOSE Administration Ondansetron HCl 4 mg 05/29/24 21:51 06/04/24 17:44 Ondansetron Inj 2 Mg/Ml Inj 2 Ml IV 06/28/24 21:50 4 mg Q6HR PRN Administration NAUSEA OR VOMITING Protocol Pantoprazole Sodium 40 mg 06/06/24 09:00 06/17/24 09:16 Pantoprazole Inj 40 Mg Vial IVP 07/06/24 08:59 40 mg QDAY JUAN JOSE Administration Patiromer 8.4 gm 06/09/24 10:45 06/17/24 09:45 Patiromer Calcium 8.4 Gm Packet (Non-Form) NG 07/09/24 10:44 8.4 gm QDAY JUAN JOSE Administration Polyethylene Glycol 17 gm 06/14/24 17:15 06/17/24 09:16 Polyethylene Glycol 17 Gm Packet PO 07/14/24 17:14 17 gm QDAY JUAN JOSE Administration Quetiapine Fumarate 25 mg 06/13/24 21:00 06/17/24 21:04 Quetiapine Fumarate 25 Mg Tablet PO 07/13/24 20:59 25 mg HS JUAN JOSE Administration Raltegravir 400 mg 06/16/24 12:30 06/17/24 21:46 Raltegravir 100 Mg Chew (Non-Form) NG 06/23/24 12:29 400 mg BID JUAN JOSE Administration Sennosides 1 tab 06/11/24 09:00 06/17/24 09:16 Senna Tablet PO 07/11/24 08:59 1 tab QDAY JUAN JOSE Administration Protocol Trimethoprim/Sulfamethoxazole 40 ml 06/15/24 06:00 06/18/24 05:23 Trimethoprim 40 Mg/Sulfa 200 Mg Susp 5 Ml PO 06/22/24 05:59 40 ml QID JUAN JOSE Administration Plan Hospital Course: This is a 39-year-old gentleman with no known previous past medical history who initially presented to [facility] on 05/27/2024 with a chief complaint of shortness of breath and cough, with associated chills, body aches, generalized weakness, fever, and night sweats beginning weeks prior but progressively worsening over a few days. ED work-up revealed extensive bilateral diffuse infiltrate, patient met 4/4 SIRS, was requiring 4L O2, and was subsequently admitted for acute hypoxic respiratory failure secondary to bilateral community-acquired pneumonia of unknown etiology. Procal was only slightly elevated at 0.61 and he was first empirically treated with levofloxacin from 05/27-05/29 for suspicion of atypical pneumonia and fluconazole for cocci coverage. Patient quickly progressed to requiring Hi-Flow oxygen and had multiple rapid response alerts for increasing oxygen requirements and recurrent fevers. He was monitored in ICU from 05/30-05/31, at that time started on steroids and antibiotics were escalated to azithromycin, doxycycline, and Zosyn as well as high dose steroids. He seemed to have improved and was downgraded at that time without needing intubation. ID and Pulmonology were consulted, and the patient was started on Bactrim to cover pneumocystis pneumonia. Several tests which had been sent were negative, including Cocci IgM and IgG, Legionella, and all blood, urine, sputum cultures had been negative at that point. HIV test was reported to be a preliminary positive, and sent out for confirmation studies but result had significant delay. Patient had reported a single sexual partner with his fiance for the last 5 years, last contact few weeks before admission, and denied IV drug usage. He did endorse 1 pack per day smoking history since teenage years, and occasional alcohol and marijuana. He had tattoos done as a young teenager, none recent. He had history of temporary incarceration. After the downgrade, patient developed worsening dyspnea on movement, desaturation, and complaints of work of breathing despite Hi-Flow at 100% FiO2. He was upgraded to ICU again on 06/05 for intubation and bronchoscopy, which showed normal-appearing mucosa, and BAL sample was sent for culture and cytology. Patient was given paralysis and managed with vent settings for ARDS. At this point, autoimmune studies including Rh factor, DANIEL, ANCA, Anti-proteinase 3, Anti-myeloperoxidase, Complement C3/C4c all returned negative. Absolute CD4 count was low at 116. On 06/07, in light of still unconfirmed diagnosis and critical status, patient's named [id number] and decision-maker, sister Francesca, was asked to bring forward any other additional history about patient's substance use, particularly any vape pens or supplements/substances he may have used to investigate for possible Vape-Associated Lung Injury. Sister brought in patient's bag of belongings from home containing vials of trenbolone (anabolic steroid) and testosterone and needles, which sister reports may have been purchased from [facility]. There were additional male enhancement supplements, synthetic urine kit, marijuana wax pen, and cigarette boxes. 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 On 06/08, HIV viral load came back at 5,660,000 copies. HIV 1 antibody was positive. HIV 2 negative. On 06/09, patient was started on antiretrovirals, Truvada and raltegravir. Patient also started having significant hyperkalemia, requiring multiple pushes of insulin, calcium gluconate, and kayexylate, eventually needing dialysis on 06/06, 06/08, and 06/09. Suspected Bactrim adverse effect, Bactrim was continued however to treat PCP. Patient has continued on mechanical ventilation. While he initially succeeded at weaning to spontaneous mode with Pressure Support of 8, FiO2 40% on sedation, it has been a challenge to wean sedation off successfully. Patient would become increasingly tachypneic, with work of breathing and desaturation, and has been unable have sedation low enough to follow commands, eye track, or make purposeful movements. On 06/15, patient had spiked fevers, WBC worsened, and patient had tachypneia again with worsening respiratory acidosis. Patient was proned. PE was suspected and heparin drip was started. ET sputum culture from 06/09 grew VRE enterococcus casseliflavus therefore linezolid and meropenem was started, Zosyn was discontinued. Patient is planned for tracheostomy by 06/20/2024 (Day 16 of intubation) if unable to wean from the vent. NEURO #Acute encephalopathy, secondary to prolonged sedation 06/05/2024 Patient was intubated, sedated, and paralyzed for ARDS. Prior to intubation, patient was awake, alert, and oriented x3, following commands, conversational. Initially, fentanyl was discontinued 06/09 as a sedative due to concern for tachyphylaxis, restarted 06/15 Morphine drip (given in place of fentanyl) was discontinued 06/14 Cisatracurium was discontinued 06/11, restarted 06/15 Plan: -Goal sedation: RASS -5 -Fentanyl at 150 mcg/hr -Propofol at 50 mcg/kg/min -Cisatracurium to target 2/4 ToF twitches -Midazolam 4 mg IV prn for breakthrough agitation #Fever 06/15 Fever overnight with spike at 102.0, acetaminophen 975 mg given with resolution of fever. Possible new ventilator-associated infection? Plan: -Acetaminophen as needed -New blood cultures sent 06/15 -New ET culture sent 06/15 CARDIO #Sinus tachycardia Tachycardia most likely secondary to respiratory distress and agitation. 06/15: Possible new sepsis? Patient with new fevers, increased tachypneia. Low threshold of suspicion for PE, therefore heparin drip was started 06/15. Plan: -Continuous telemetry -Continue sedation with RASS goal -4 for now -Doppler US right upper extremity 06/17/24: right upper extremity DVT. -CTPA negative for PE 06/16/24 #Septic shock, resolved Secondary to severe extensive bilateral pneumonia. Patient was on norepinephrine 06/06-06/10. Currently off pressors. 06/06/2024 Echo was read EF 55-60% 06/09/2024 Blood cultures negative 06/09/2024 Urine culture negative 06/09/2024 ET culture POSITIVE for Staph haemolyticus, Entercoccus casseliflavus vancomycin-resistant PULM #Acute hypoxic respiratory failure Secondary to #Bilateral pneumocystis jirovecii pneumonia #Healthcare associated pneumonia #Ventilator associated pneumonia Patient presented with dyspnea and cough, requiring 4L NC on first ED evaluation, and history of chills, body aches, generalized weakness, fever, and night sweats progressively worsening over the prior weeks. Approx 20-pack year smoking history, occasional marijuana. 05/27/2024 Received ceftriaxone/azithromycin in ED. Started on levofloxacin as an inpatient. 05/28/2024 Started on fluconazole (discontinued 06/12). Started requiring Hi-Flow. 05/30/2024 Upgraded to ICU for close monitoring. Started on doxycycline. Started on azithromycin (completed 5-days). Started on Zosyn (discontinued 06/15). Started Solu-Medrol. 06/01/2024 Downgraded. Started on Bactrim (discontinued doxy). 06/05/2024 Intubation of the patient, return to ICU. Suspected ARDS. Bronchoscopy showed normal-appearing mucosa and no mucous plugging, hemorrhage, or friability bilaterally. Bronchoalveolar washings culture were negative for growth. Fungal cultures are pending. 06/07/2024 Bronchoalveolar lavage cytology shows Pneumocystis jirovecii. Also other fungi, possibly Kassandra. Kassandra is most likely a contaminant. Blood [id number] also positive. 06/08/2024 HIV quant 5.66 million copies. HIV 1 positive confirmed. Patient was proned due to desaturation event. 06/09/2024 Started on prophylactic micafungin. Started Truvada and raltegravir HAART. Patient's decision-maker, sister Francesca informed of HIV+ and diagnosis. 06/14/2024 ETT sputum cultures from 06/09 positive for Staphylococcus hemolyticus, ID stated that this is not a respiratory pathogen, no need to treat. 06/15/2024 Above #2 pathogen showed vancomycin-resistant enterococcus casseliflavus, started linezolid. Zosyn stopped and meropenem started. 06/15/2024 Increased tachypnea, vent overbreathing, paralyzed and proned. 06/17/2024 oxygenation and hypercapnia improved, was put in supine position, continued to be paralyzed. 06/18/2024 paralytic was discontinued, the plan is to continue with sedation until the tracheostomy placement. Plan: -Ventilation on volume control, saturation to be maintained >90%, PEEP was decreased to 8, increased RR, FiO2 at 40% wean if tolerated -ABG q4h -Continue Bactrim 06/01/24 - to be continued through 06/21 for 21 days of treatment -Discontinued Zosyn 05/30/24-06/15/24 -Started meropenem 1000 mg q8h 06/15/24- -Started linezolid 600 mg q12h 06/15/24- -Continue micafungin 100 mg qday 06/09/24- -Fungal cultures from BAL pending -DuoNebs q4h as needed -New blood cultures sent 06/15?negative for growth -New ET culture sent 06/15?negative for growth #ARDS #Respiratory acidosis Patient continues to have increased oxygen demands with worsening bilateral infiltrates on CXR. Will maintain ARDS ventilation protocol. 06/08/24 P:F ratio 89/1=89. Severe ARDS. 06/09/24 P:F ratio 97/36=779. Moderate ARDS. 06/10/24 P:F ratio 65/00=571 06/11/24 P:F ratio 70/23=789 06/12/24 P:F ratio 217 06/13/24 P:F ratio 160 06/15/24 P:F ratio 91, ABGs showing pH in the 7.00s, elevated pCO2 110-120s. Plan: -VC overnight, maintain PEEP 12-14, FiO2 to maintain saturation 92% -Maintain peak plateau <30 -Improve hypercapnia -Discontinued paralytic -Follow up ABG -Methylprednisolone 40 mg qday GI Prophylaxis: Pantoprazole 40 mg IV qday #Elevated LFTs, improving Likely due to propofol and bactrim. Mildly elevated, liver US 05/30/2024 showed normal gallbladder and hepatomegaly without lesions or evidence of obstructions. Hep panel negative. LFTs downtrended compared to 06/06/24. 06/15/2024 Floyd in LFTs with AST 303, ALT 420, Tbili 1.3, therefore right upper quadrant US ordered, negative for cholecystitis/cholelithiasis. No obvious changes on physical exam. Plan: -Continue monitoring NEPHRO #WILL, resolved #Mild hyponatremia #Hyperkalemia #Hyperphosphatemia, resolved Ddx: Prerenal WILL due to hypotension vs possible rhabdomyolysis vs drug toxicity (zosyn, vancomycin, bactrim) Unlikely rhabdomyolysis, CK was 511 06/06, did not uptrend. Urine output is >100 ml/hr, urine is yellow and clear. Possible underlying SIADH. Potassium 06/11/24 4.4. Plan: -Continue Veltassa 8.4 gm qday for potassium chelation -Nephrology Dr. Song is following for as-needed dialysis due to hyperkalemia -Continue free water at 40 ml/hr -Maintain euvolemia -Monitor CMP, especially potassium #Metabolic alkalosis #Respiratory acidosis ABGs are showing acidemia with elevation of pCO2, indicative of primary respiratory acidosis. There is an underlying metabolic alkalosis due to the given bicarb being greater than the expected compensatory bicarb. pH 7.10, pCO2 118, pO2 102, HCO3 37 Plan: -Patient was given 150 mEq bicarb in pushes x3 throughout the day 06/15 for acidemia -Bicarb drip was discontinued 06/17 -Follow-up lactate was normal URO #No active problems -Tijerina placed 06/05/2024 for strict I&O monitoring HEME #Leukocytosis Fluctuating WBC. In the setting of likely infection, inflammation, and corticosteroids. Plan: -Treatment of pneumonia as above #Microcytic anemia Stable, has not required any transfusions this admission thus far. Clinically no evidence of bleeding. Iron panel shows iron 17, TIBC 262, iron saturation 6, unsaturated iron binding 245. Peripheral blood film confirms microcytic hypochromic anemia with target cells. Also daily lab draws contributing. Plan: -Monitor H&H. Transfusing for Hgb <7 #Thrombocytosis, resolved Likely reactive. -Continue to monitor ENDO #No active problems -Blood glucose on chemistry panels in acceptable range ID #Bilateral pneumocystis pneumonia #Healthcare associated pneumonia #Ventilator associated pneumonia Negative studies: Cocci IgM and IgG, Hepatitis panel, Syphilis, Legionella, H.flu, N.meningitidis, Strep B, Strep pneumoniae, COVID, RSV, Flu A & B. TB quantiferon GOLD-indeterminate, however 06/05 AFB negative, CMV IgM, cryptococcal antigen negative. G6PD levels came back normal for consideration of dapsone alternative to Bactrim if needed. Patient completed 5 day course of azithromycin, 16 days of Zosyn. See Pulm for timeline of antimicrobial coverage. Plan: -Continue Bactrim 06/01/24 - to be continued through 06/21 for 21 days of treatment -Discontinued Zosyn 05/30/24-06/15/24 -Continue meropenem 1000 mg q8h 06/15/24- -continue linezolid 600 mg q12h 06/15/24- -Continue micafungin 100 mg qday 06/09/24- -Fungal cultures from BAL pending -New blood cultures sent 06/15?negative for growth -New ET culture sent 06/15?negative for growth #AIDS/HIV Patient has Stage 4 HIV, AIDS-defining illness with opportunistic infection. 06/07/2024 Bronchoalveolar lavage cytology shows Pneumocystis jirovecii. Also other fungi, possibly Kassandra. Kassandra is most likely a contaminant. Blood [id number] also positive. 06/08/2024 HIV quant 5.66 million copies. HIV 1 positive confirmed. 06/09/2024 Patient's decision maker, Francesca, was informed of diagnosis due to critical state of patient. Absolute CD4 count 87 and 22% on 06/02. History/risk factors: History of injection anabolic androgenic steroid and testosterone use, possible unclean needles. History of incarceration (unknown time). Tattoos received as a teenager. Has 1 female sexual partner last 5 years, denies others. -Continue HAART: emtricitabine / tenofovir (Truvada) and raltegravir initiated 06/09/24 -Patient is not aware of his diagnosis as he has been intubated and sedated before results returned. Will require complete education and counseling on the disease if his mental status and clinical condition improves. MSK #Elevated creatine kinase Checked CK due to acute WILL, however now resolved. Unlikely to be rhabdo, patient producing adequate clear urine. Most likely elevated due to paralytic use and bedbound status. 06/06 511 06/08 206 06/10 220 Plan: -Continue to monitor urine output and kidney function SKIN #No active problems DVT prophylaxis: Lovenox 40 subQ qday GI prophylaxis: Pantoprazole 40 mg IV qday Diet: Tube feeds Nepro Tijerina: Present (06/05- ) Lines: Peripheral IV, radial arterial line. Antibiotics: Bactrim, meropenem, linelozid, micafungin CODE STATUS: FULL CODE Reason for ICU care: Acute hypoxic respiratory failure secondary to bilateral pneumonia/ARDS Patient plan of care was discussed with the attending physician, Dr. Anderson. Denise Pinzon MD Attending Provider Attestation/Addendum Patient seen and examined with above resident, Denise Pinzon MD. I agree with the findings, assessment, and plan of care as documented except for any differences below. Patient continues to improve slowly with gas exchange. Will wean down PEEP gradually in the coming days to allow for facilitation of tracheostomy. No plan for sedation holidays though we will can discontinue Nimbex and transition to addition of Versed for adequate deep sedation until procedure can be safely done. Patient remains on appropriate antibiotic regimen including antifungal course for PJP pneumonia. Patient's renal function continues to be preserved with no significant electrolyte abnormalities at this time. Bicarb continues to be elevated in the setting of permissive hypercapnia for lung protective ventilation. He no longer is requiring bicarb drip for normalization of pH and we will expect that gradually bicarb will be excreted by his normal kidney function As CO2 removal continues to improve with the lung function returning back to where he was about a week ago. Given intolerance of prior weaning from sedation and mechanical elation, tracheostomy will be ideal for a slow weaning process likely at the LTAC setting. This has extensively been explained to the family and they are agreeable to see how the patient progresses in the future next few days to be able to surgically have tracheostomy placed. Patient remains on HAART therapy. Continue on anticoagulation with heparin drip for right subclavian and upper extremity DVT. He otherwise remains on appropriate prophylaxis for peptic ulcer disease. Appreciate input from nephrology and infectious disease specialist. Total critical care time: Personally spent 45 minutes for review of physiologic parameters, directing plan of care throughout the day, coordination of care with other specialties, and counseling patient's family at bedside. This is exclusive of time spent teaching housestaff or performing any separate billable procedures. Patient continues to require critical care services for acute hypoxic respiratory failure secondary to PJP pneumonia and superimposed ventilator associated pneumonia with highly resistant Enterococcus and staph hemolyticus, he continues to be at high risk for increased morbidity and mortality.
[2024-06-18] MEDS: LINEZOLID 600 MG IVPB 600 MG/300 ML BAG 300 MG IV ×2 (09:17→20:41)
[2024-06-18] MEDS: EMTRICITABINE 200 MG/TENOFOVIR 300 MG TAB (NON-FORM) 1 TAB PO (09:17)
[2024-06-18] MEDS: bisacodyL 5 MG TABEC PO (09:17)
[2024-06-18] MEDS: MICAFUNGIN SODIUM INJ 100 MG in SODIUM CHLORIDE 0.9% 100 ML IV (09:17)
[2024-06-18] MEDS: [UNRECOGNIZED DRUG - REMARK] 400 MG NG ×2 (09:18→20:41)
[2024-06-18] MEDS: SENNA TABLET 1 TAB PO (09:18)
[2024-06-18] MEDS: PANTOPRAZOLE INJ 40 MG VIAL IVP (09:18)
[2024-06-18] MEDS: PATIROMER CALCIUM 8.4 GM PACKET (NON-FORM) NG (09:18)
[2024-06-18] MEDS: POLYETHYLENE GLYCOL 17 GM PACKET PO (09:18)
[2024-06-18] MEDS: MIDAZOLAM INJ 1 MG/ML VIAL 2 ML 4 MG IV (10:53)
[2024-06-18] MEDS: Heparin/D5w 25K 250 ML Ivpb 25,000 UNIT/250 ML BAG 15.12 UNIT IV (10:54)
[2024-06-18] MEDS: Artificial Tears 225 DROP/15 ML BTL BOTH EYES ×3 (10:55→20:40)
[2024-06-18] MEDS: PROPOFOL 1,000 MG IVPB 1,000 MG/100 ML VIAL 24.87 MG IV ×3 (12:26→21:00)
[2024-06-18] MEDS: MIDAZOLAM/NS 100 MG IVPB 100 MG/100 ML BAG IV (12:27)
[2024-06-18 17:19] LABS: Partial Thromboplastin Time 47.6 Seconds (22.0-36.0)
[2024-06-18] MEDS: HEPARIN SOD INJ 5000 UNIT/ML VIAL 3300 UNIT IVP (17:36)
[2024-06-18] MEDS: QUEtiapine FUMARATE 25 MG TABLET PO (20:41)
[2024-06-18] MEDS: fentaNYL 2,500 MCG/250 ML BAG 2,500 MCG/250 ML BAG 20 MCG IV (20:53)
[2024-06-19] VITALS (32 sets, daily range): BP systolic 100–160; BP diastolic 41–85; PULSE 77–115; RESP 0–35; TEMP 36.1–37.8; O2SAT 92–100
[2024-06-19 00:35] LABS: Partial Thromboplastin Time 69.5 Seconds (22.0-36.0)
[2024-06-19] MEDS: PROPOFOL 1,000 MG IVPB 1,000 MG/100 ML VIAL 12.435 MG IV (02:24)
[2024-06-19] MEDS: Heparin/D5w 25K 250 ML Ivpb 25,000 UNIT/250 ML BAG 16.632 UNIT IV ×2 (03:30→22:00)
[2024-06-19 04:38] LABS: Base Excess 15 (-3-3); HCO3 41 mEq/L (20-26); Inspired Oxygen, FIO2 40 %; O2 Saturation 93 % (91-98); PCO2 63 mmHg (32.0-48.0); PO2 66 mmHg (83-108); pH, Arterial 7.42 (7.35-7.45)
[2024-06-19] MEDS: fentaNYL 2,500 MCG/250 ML BAG 2,500 MCG/250 ML BAG 30 MCG IV ×3 (04:41→21:50)
[2024-06-19 04:55] LABS: Puncture Site Arterial Line
[2024-06-19] MEDS: Artificial Tears 225 DROP/15 ML BTL BOTH EYES ×4 (05:56→20:44)
[2024-06-19] MEDS: MEROPENEM INJ 1,000 MG in SODIUM CHLORIDE 0.9% (P) 50 ML 100 MG IV (05:57)
[2024-06-19] MEDS: TRIMETHOPRIM PO ×4 (05:57→20:46)
[2024-06-19] MEDS: SULFA PO ×4 (05:57→20:46)
--- NOTE | 2024-06-19 06:00 | XR_ITS ---
Examination: AP chest single view Technique: AP portable supine chest single view Exam date and time: June 19, 2024 0540 hrs. Comparison June 18, 2024 Indications: Hypoxic respiratory failure, diagnosis of pneumocystis carinae, adult respiratory distress syndrome postintubation Findings: Normal heart size Extensive bilateral lung opacity Tracheal tube tip 7.1 cm above sunil Orogastric tube in the stomach No pneumothorax Impression: No significant change in extensive bilateral pneumonia ARDS pattern
[2024-06-19 06:50] LABS: Basophils % (Auto) 0 % (0-2.5); Eosinophils # (Auto) 0.2 Thou/mm3 (0.0-0.5); Eosinophils % (Auto) 3 % (0-10); Hematocrit 26.1 % (41.0-53.0); Immature Granulocytes % (Auto) 0 % (0-0); Immature Granulocytes Auto 0.03 Thou/mm3 (0.00-0.00); Lymphocytes # (Auto) 0.3 Thou/mm3 (1.0-4.8); Lymphocytes % (Auto) 4 % (10-50); Mean Corpuscular HGB Conc 30.7 g/dl (31.0-37.0); Mean Corpuscular Hemoglobin 23.4 pg (25.0-35.0); Mean Corpuscular Volume 76 fL (80-100); Monocytes # (Auto) 0.2 Thou/mm3 (0.0-0.8); Monocytes % (Auto) 3 % (0-12); Neutrophils # (Auto) 6.7 Thou/mm3 (1.8-7.7); Neutrophils % (Auto) 90 % (37-80); Nucleated Red Blood Cell # 0.03 Thou/mm3 (0.00-0.00); Nucleated Red Blood Cell % 0 /100 WBC (0); Platelet Count 180 Thou/mm3 (140-440); RDW Standard Deviation 58.3 fL (35.1-43.9); Red Blood Count 3.42 Miln/mm3 (4.50-5.90); White Blood Count 7.5 Thou/mm3 (3.8-10.6)
[2024-06-19 07:26] LABS: Alanine Aminotransferase 145 U/L (10-49); Albumin/Globulin Ratio 1.1 (1.2-2.2); Alkaline Phosphatase 117 U/L (46-116); Anion Gap 5 (7-16); Aspartate Amino Transferase 92 U/L (0-34); BUN/Creatinine Ratio 23 Ratio (12-20); Bilirubin,Total 0.6 mg/dL (0.3-1.2); Blood Urea Nitrogen 14 mg/dL (9-23); Calcium 8.1 mg/dL (8.3-10.6); Calcium (Corrected) 8.9 mg/dL (8.5-10.1); Chloride 96 mMol/L (98-107); Creatinine (Component) 0.6 mg/dL (0.6-1.3); Estimated Creatinine Clearance 150.6 mL/min (>60); Globulin 2.8 gm/dL (2.3-3.5); Glucose 70 mg/dL (74-106); Magnesium 1.8 mg/dL (1.6-2.6); Osmolality,Calculated 272 (275-295); Potassium 4.3 mMol/L (3.4-5.1); Sodium 137 mMol/L (136-145); Total Protein 5.8 gm/dL (5.7-8.2); Triglycerides 187 mg/dL (30-150); eGFR > 60 See Note
[2024-06-19] MEDS: PATIROMER CALCIUM 8.4 GM PACKET (NON-FORM) NG (10:24)
[2024-06-19] MEDS: [UNRECOGNIZED DRUG - REMARK] 400 MG NG ×2 (10:25→20:45)
[2024-06-19] MEDS: LINEZOLID 600 MG IVPB 600 MG/300 ML BAG 300 MG IV ×2 (10:28→20:44)
[2024-06-19] MEDS: MICAFUNGIN SODIUM INJ 100 MG in SODIUM CHLORIDE 0.9% 100 ML IV (10:29)
[2024-06-19] MEDS: bisacodyL 5 MG TABEC PO (10:29)
[2024-06-19] MEDS: SENNA TABLET 1 TAB PO (10:29)
[2024-06-19] MEDS: PANTOPRAZOLE INJ 40 MG VIAL IVP (10:29)
[2024-06-19] MEDS: SOD PHOS ADDITIVE 22.5 MMOL in SODIUM CHLORIDE 0.9% 500 ML 500 ML 82.778 MMOL IV (10:30)
[2024-06-19] MEDS: POLYETHYLENE GLYCOL 17 GM PACKET PO (10:30)
[2024-06-19] MEDS: EMTRICITABINE 200 MG/TENOFOVIR 300 MG TAB (NON-FORM) 1 TAB PO (10:30)
[2024-06-19] MEDS: PROPOFOL 1,000 MG IVPB 1,000 MG/100 ML VIAL 14.922 MG IV ×2 (10:56→18:06)
[2024-06-19 14:16] LABS: Partial Thromboplastin Time 48.7 Seconds (22.0-36.0)
[2024-06-19] MEDS: HEPARIN SOD INJ 5000 UNIT/ML VIAL 3000 UNIT IVP (14:41)
--- NOTE | 2024-06-19 15:42 | ESPR_ITS ---
<Statement entered by Emely Price MD - 06/20/24 08:10> TOTAL CC TIME: 45 MIN I saw and evaluated the patient. I reviewed the resident?s note and agree with findings and plan as documented in the resident?s note. Upon my evaluation, this patient had a high probability of imminent or life- threatening deterioration due to acute hypoxic resp failure which required my direct attention, intervention, and personal management. This time is exclusive of time spent on procedures, which are documented separately if performed. cont linezolid/bactrim/micafungin stop merrem as bacterial clx remain negative for new organism RR remains 30 - high risk for trach - PCO2 is improving though if continues to improve - will be safer to hold off on trach until can be performed when pt's Ve is requirements are lower family updated Documentation for date of: 06/19/24 Subjective Subjective Interval history: 06/10/24: Patient is doing better today with ABG for this morning revealing a CO2 of 78 and a pH of 7.30. We are allowing for permissive hypercapnia and O2 65. Revealing PA/FiO2 ratio of 147. Overnight sedation was changed from fentanyl to morphine we will continue to titrate up morphine based on his hemodynamic stability. Patient became hypertensive and we suspect he requires more sedation so we will increase morphine. We will continue with paralytic use for 1 more day and discontinue tomorrow after 3 total days of paralytics. Patient's vancomycin was discontinued by infectious disease due to the fact that he remains on Bactrim. Dr Hope did suggest ordering a G6PD test to assess for G6PD deficiency in case we do switch to dapsone. Continuing with Bactrim, micafungin, and Zosyn. Transaminitis is continuing to improve and patient remains on Nepro with tube feeds at 40 cc an hour with low amounts of residuals. Last bowel movement was noted to be June 08 and he is receiving GI prophylaxis with Protonix. Hyperkalemia this morning appear to have been resolved with most recent potassium noted at 4.6. We will repeat another potassium at 2 PM to see if patient will require further hemodialysis but we will also initiate Lasix 40 mg IV push twice daily for diuresis in hopes that that will contribute to decreasing his hyperkalemia and help improve his potassium. Continues to remain anemic with iron deficiency anemia but hemoglobin is stable and is not a candidate for blood transfusion or iron repletion currently. 06/11/24: Patient was seen and examined by the bedside. No acute overnight events. No fevers overnight. Patient oxygen requirements decreased a little bit, his ABGs showed pH 7.35 slightly improved oxygenation. P:F ratio is 175. Chest Xray showed improvement compared to yesterday. Patient had a urine output of 5.3L, negative balance -4.4L. Cisatracurium is discontinued today, will try to slowly titrate down the sedation. Continues to receive bactrim, zosyn, micafungin. Repeat blood cultures, urine cultures are negative. ETT secretions grew GPC. ID is following patient. 06/12/24: Patient was seen and examined by the bedside. No acute overnight events. No fevers overnight. Patient had an awakening trial today due to his improvement in oxygenation. He was able to continue on spontaneous mode PS for a few hours, but due to agitation he was sedated again, but continued on spontaneous PS. ABGs showed pH 7.48, pCO2 63, pO2 78. PF ratio is 217. Will try awakening trial tomorrow again. Will keep his sedated throughout the night while on AC. Added oral morphine to decrease respiratory distress and sedation, will try to downtitrate propofol. Discontinued fluconazole. 06/13/24: Patient was seen and examined by the bedside. No fevers overnight. Saturates well on FiO2 of 50. Overnight patient was double stacking, pulling hide tidal volume on volume control, received midazolam 2 mg pushes for sedation, was also started on Precedex drip. Will try awakening trial today. Continues to be on morphine drip and oral morphine. In the morning was switched to PS 8, PEEP 10, FiO2 50. Will continue Bactrim and micafungin, length of course 21 days. Continue Zosyn for HAP. Sedation was turned off for awakening trial, patient was able to breath spontaneously, but did not follow commands. He became agitated, was inhaling high VT, BP went up to 180/88, was sedated again. Will switch him back to VC mode overnight. Family was advised to spend time with him. 06/14/24: Patient was seen and examined by the bedside. No fevers overnight. Saturates well on FiO2 of 60. Overnight patient was on PC, RR 14 but was tachypneic, double stacking, pulling high tidal volume, received midazolam 4 mg pushes for sedation, continued to be on Precedex drip and propofol. Continues to be on oral morphine, morphine drip was discontinued. Patient started on SPONT PS in the morning again. Sedation was turned off for awakening trial, patient was able to breath spontaneously, but did not follow commands, does not open his eyes to the speech. He became agitated, was inhaling high VT, was sedated again.Due to his mental status, patient is not a candidate for extubation at the moment. Will switch him back to VC mode overnight. Family was advised to spend time with him, to talk to him and support. His ABGs showed improvement of hypercapnia and respiratory acidosis. Will continue Bactrim and micafungin, length of course 21 days. Continue Zosyn for HAP. 06/15/24: Overnight, the patient was noted to be tachypneic to the 50s on volume control, propofol and dexmedetomine for sedation, had been off of morphine drip. He required 2 pushes of midazolam 4 mg IV, 1 push of morphine 4 mg IV, and a push of ketamine 50 mg. Patient also had fevers up to 102.0 and received acetaminophen overnight. This morning patient continued to have tachypneic episodes to the 40s. Dr. Anderson used bedside Glidescope to visualize placement of ET tube which was in correct positioning and performed small amounts of suctioning. CXR was retaken which showed possible worsening right lower infiltrate. He was placed on 100% FiO2. The patient was ultimately fully sedated and paralyzed again, throughout the day given ketamine 50 mg x1, morphine 5 mg x2, midazolam 4 mg x2, extra pushes of 60 mg propofol, and cisatracurium 20 mg x4. Fentanyl was restarted, oral morphine was stopped. Methadone 5 mg x1 was also given for possible morphine withdrawal. Propofol was uptitrated. Goal for tonight is fentanyl at 150 and propofol at 50 with RASS -5. He received another acetaminophen 1000 mg. 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 Meropenem will also be continued for broad coverage. Second organism is staph haemolyticus which is a commensal organism and per ID no concern for infectious source, regardless linezolid is shown as sensitive for both. Continue with micafungin prophylactically and Bactrim, Solu-Medrol for PCP. New blood cultures and ET cultures sent today. ABGs showed continued severe respiratory acidosis pH 7.03, pCO2 121, pO2 99, HCO3 32, q4h checks are scheduled, and the patient has been placed on bicarb drip and also received 50 mEq sodium bicarb x3 pushes. Patient was proned around 13:00 and will be turned in the morning. Patient was also started on heparin drip for suspected PE. Doppler was not completed due to patient proned position. A right upper quadrant US was also done today due to uptrended Tbili to 1.3 and AST 303, ALT 420, US showed no cholelithiasis and no obvious sign of cholecystitis. 06/17/2024: Patient was seen and examined by the bedside. Overnight he continued to maintain saturation, was put back into supine position in the morning. No fevers overnight, saturates well on 40% FiO2. Continues to be sedated and paralyzed continues to receive Bactrim, micafungin, methylprednisone, meropenem, linezolid. Continues heparin drip. Possible tracheostomy on Thursday. Due to edema of the right upper extremity and vesicles, arterial line was placed on the left arm, consent was given by the decision-maker Francesca. Head CT was negative for stroke, hemorrhage, chest CTA was negative for PE, Doppler ultrasound of upper extremities showed acute DVT in the right subclavian and right axillary vein. Patient was started on heparin drip yesterday continues to receive heparin. ABG showed pH 7.29, pCO2 106, pO2 61, will continue with permissive hypercapnia. Will continue with bicarb and hyperventilation for respiratory acidosis. 06/18/2024: Patient was seen and examined by the bedside. Last evening there was a bleeding from the right femoral central line placed, heparin drip was discontinued. Continues to be sedated and paralyzed. Repeat blood and sputum culture came back negative. Will continue heparin drip and sedation, RASS goal - 4 until the patient will get a tracheostomy. ABG showed pH 7.33, pCO2 86, pO2 77, PF ratio 192. Nimbex was discontinued today. PEEP was decreased to 8. 06/19/2024; Patient was seen and examined by bedside, no acute overnight events reported, remains intubated and mechanically ventilated, vitals stable with mildly elevated BP 150/70, HR 86, CBC/CMP noted for significant improvement in LFTs, and hypophosphatemia, ABG this AM noted for improvement in respiratory acidosis, pCO2 63, pO2 66. Continuing patient on sedation with RAAS goal of -4, will likely delay tracheostomy placement for a few days as patient continues to have high respiratory rate. Continue patient on current regimen of Linezolid for VRE, Bactrim, Micafungin, and Methylprednisolone for PCP, discontinue Meropenem as patient has been afebrile for few days, HAART for HIV. Tube feeding were resumed today for patient as they were previously held during pronation. Exam Vital Signs Temp Pulse Resp BP Pulse Ox O2 Del Method O2 Flow Rate 100.1 F 86 32 H 129/55 L 96 Mechanical Ventilation 40 06/19/24 12:00 06/19/24 14:24 06/18/24 18:52 06/19/24 14:24 06/19/24 14:24 06/15/24 16:00 06/09/24 12:16 FiO2 40 06/19/24 14:24 Narrative Exam GEN: Critically ill, not acutely distressed, sedated and intubated. Neuro: Deferred due to sedation. HEENT: NCAT, trachea midline, moist mucous membranes, ET tube in place, PO tube noted. CVS: RRR, S1S2 present, no M/R/G. No JVD Respi: Mechanically ventilated, b/l breath sounds heard with diffuse rhonchi, no wheezing/crackles. ABD: Soft, no grimace to palpation, bowel sounds present in all 4 quadrants. Skin: warm, dry and intact. Extremities: Pulses 3+ in all extremities, RUE edema, vesicles 1-2 cm on the forearm surface. Objective Labs 06/19/24 04:48 06/19/24 04:48 Labs: Laboratory Results - last 24 hr 06/18/24 06/18/24 06/19/24 16:35 23:43 04:18 WBC RBC Hgb Hct MCV MCH MCHC RDW Std Deviation Plt Count Neut % (Auto) Lymph % (Auto) [place] % (Auto) Eos % (Auto) Baso % (Auto) Neut # (Auto) Lymph # (Auto) [place] # (Auto) Eos # (Auto) Baso # (Auto) Immature Gran # (Auto) Absolute Nucleated RBC Immature Gran % Nucleated RBC % APTT 47.6 H 69.5 H D Puncture Site Arterial Line ABG pH 7.42 ABG pCO2 63 H D ABG pO2 66 L ABG HCO3 41 H ABG O2 Saturation 93 ABG Base Excess 15 H FiO2 40 Sodium Potassium Chloride Carbon Dioxide Anion Gap BUN Creatinine Estim Creat Clear Calc eGFR BUN/Creatinine Ratio Glucose Calculated Osmolality Calcium Corrected Calcium Phosphorus Magnesium Total Bilirubin AST ALT Alkaline Phosphatase Total Protein Albumin Globulin Albumin/Globulin Ratio Triglycerides 06/19/24 06/19/24 04:48 13:18 WBC 7.5 RBC 3.42 L Hgb 8.0 L Hct 26.1 L MCV 76 L MCH 23.4 L MCHC 30.7 L RDW Std Deviation 58.3 H Plt Count 180 Neut % (Auto) 90 H Lymph % (Auto) 4 L [place] % (Auto) 3 Eos % (Auto) 3 Baso % (Auto) 0 Neut # (Auto) 6.7 Lymph # (Auto) 0.3 L [place] # (Auto) 0.2 Eos # (Auto) 0.2 Baso # (Auto) 0.0 Immature Gran # (Auto) 0.03 H Absolute Nucleated RBC 0.03 H Immature Gran % 0 Nucleated RBC % 0 APTT 66.0 H 48.7 H D Puncture Site ABG pH ABG pCO2 ABG pO2 ABG HCO3 ABG O2 Saturation ABG Base Excess FiO2 Sodium 137 Potassium 4.3 D Chloride 96 L Carbon Dioxide 36.0 H Anion Gap 5 L BUN 14 Creatinine 0.6 Estim Creat Clear Calc 150.6 eGFR > 60 BUN/Creatinine Ratio 23 H Glucose 70 L Calculated Osmolality 272 L Calcium 8.1 L Corrected Calcium 8.9 Phosphorus 1.0 L Magnesium 1.8 Total Bilirubin 0.6 AST 92 H ALT 145 H Alkaline Phosphatase 117 H Total Protein 5.8 Albumin 3.0 L Globulin 2.8 Albumin/Globulin Ratio 1.1 L Triglycerides 187 H ABG Interpretation ABG results: 05/27/24 05/29/24 05/29/24 23:37 10:44 22:08 ABG pH 7.51 H 7.50 H 7.48 H ABG pCO2 28 L 32 32 ABG pO2 75 L 79 L 145 H D ABG HCO3 23 25 24 ABG O2 Saturation 96 95 98 ABG Base Excess 0 2 1 05/30/24 05/31/24 06/04/24 08:45 04:54 02:10 ABG pH 7.47 H 7.45 7.45 ABG pCO2 35 38 36 ABG pO2 86 D 82 L 139 H ABG HCO3 26 26 25 ABG O2 Saturation 97 96 98 ABG Base Excess 2 2 1 06/04/24 06/05/24 06/05/24 18:16 11:36 12:59 ABG pH 7.44 7.11 L* D 7.20 L ABG pCO2 36 94 H* D 68 H D ABG pO2 80 L D 150 H D 121 H D ABG HCO3 24 30 H 26 ABG O2 Saturation 94 97 97 ABG Base Excess 0 -2 -3 06/05/24 06/06/24 06/06/24 19:25 04:13 15:27 ABG pH 7.22 L 7.27 L 7.30 L ABG pCO2 64 H 57 H 60 H ABG pO2 122 H 153 H D 74 L D ABG HCO3 26 26 29 H ABG O2 Saturation 97 99 H 92 ABG Base Excess -3 -2 2 06/07/24 06/07/24 06/08/24 03:55 09:59 04:20 ABG pH 7.41 D 7.43 7.45 ABG pCO2 56 H 55 H 50 H ABG pO2 293 H D 78 L D 75 L ABG HCO3 36 H 37 H 35 H ABG O2 Saturation 99 H 95 94 ABG Base Excess 10 H 11 H 10 H 06/08/24 06/08/24 06/08/24 11:05 11:50 13:18 ABG pH 7.17 L* D 7.10 L* 7.15 L* ABG pCO2 95 H* D 115 H* D 88 H* D ABG pO2 89 75 L 72 L ABG HCO3 34 H 36 H 31 H ABG O2 Saturation 92 84 L 85 L ABG Base Excess 3 4 H 0 06/08/24 06/09/24 06/09/24 17:02 01:33 03:15 ABG pH 7.18 L* 7.22 L 7.27 L ABG pCO2 50 H D 91 H* D 82 H* ABG pO2 82 L 105 D 86 ABG HCO3 19 L 37 H 38 H ABG O2 Saturation 93 97 95 ABG Base Excess -9 L 7 H 9 H 06/09/24 06/09/24 06/10/24 05:08 12:52 04:40 ABG pH 7.31 L 7.33 L 7.30 L ABG pCO2 75 H* 57 H D 78 H* D ABG pO2 97 158 H D 65 L D ABG HCO3 38 H 30 H 38 H ABG O2 Saturation 97 99 H 90 L ABG Base Excess 10 H 3 9 H 06/10/24 06/11/24 06/12/24 09:40 04:19 04:15 ABG pH 7.27 L 7.35 7.48 H D ABG pCO2 88 H* D 86 H* 63 H D ABG pO2 65 L 70 L 76 L ABG HCO3 40 H 48 H 47 H ABG O2 Saturation 89 L 93 95 ABG Base Excess 10 H 19 H 21 H 06/13/24 06/14/24 06/15/24 07:22 04:32 03:45 ABG pH 7.46 H 7.48 H 7.46 H ABG pCO2 56 H 40 D 37 ABG pO2 80 L 64 L 71 L ABG HCO3 39 H 30 H 27 H ABG O2 Saturation 95 92 94 ABG Base Excess 13 H 6 H 3 06/15/24 06/15/24 06/15/24 10:17 12:20 14:20 ABG pH 7.01 L* D 7.00 L* 7.03 L* ABG pCO2 122 H* D 130 H* 125 H* ABG pO2 91 D 88 82 L ABG HCO3 31 H 32 H 33 H ABG O2 Saturation 88 L 88 L 87 L ABG Base Excess -3 -2 -1 06/15/24 06/15/24 06/16/24 15:55 20:39 00:35 ABG pH 7.03 L* 7.08 L* 7.10 L* ABG pCO2 121 H* 116 H* 118 H* ABG pO2 99 117 H 102 ABG HCO3 32 H 34 H 37 H ABG O2 Saturation 93 97 96 ABG Base Excess -1 2 4 H 06/16/24 06/16/24 06/17/24 04:45 08:55 05:06 ABG pH 7.17 L* 7.28 L D 7.33 L ABG pCO2 112 H* 88 H* D 96 H* ABG pO2 155 H D 98 D 126 H D ABG HCO3 41 H 41 H 50 H ABG O2 Saturation 99 H 98 99 H ABG Base Excess 9 H 12 H 21 H 06/17/24 06/17/24 06/18/24 10:58 13:55 04:16 ABG pH 7.29 L 7.29 L 7.33 L ABG pCO2 106 H* D 106 H* 86 H* D ABG pO2 58 L* D 61 L 77 L ABG HCO3 51 H 51 H 45 H ABG O2 Saturation 87 L 88 L 95 ABG Base Excess 21 H 21 H 17 H 06/19/24 04:18 ABG pH 7.42 ABG pCO2 63 H D ABG pO2 66 L ABG HCO3 41 H ABG O2 Saturation 93 ABG Base Excess 15 H Quality Measures Quality Measures sepsis Current suspected stage: sepsis Possible source: pulmonary, GI tract/intra-abdominal, genitourinary and skin/soft tissue Blood cultures ordered: yes Antibiotic ordered: Yes Assessment & Plan Assessment Current Active Medications: Generic Name Dose Route Start Last Admin Trade Name Freq PRN Reason Stop Dose Admin Acetaminophen 975 mg 06/09/24 14:27 06/15/24 02:56 Acetaminophen Munira 325 Mg/10 Ml Udc PO 06/26/24 12:10 975 mg Q6H PRN Administration Pain 1-3 and Fever >101.5 Albuterol/Ipratropium 3 ml 06/05/24 11:40 06/09/24 22:18 Albuterol/Ipratropium (Duoneb) Rt Munira 3 Ml Nebu INH 07/05/24 14:59 3 ml Q4HRRT PRN Administration Wheezing Artificial Tears 1 drop 06/18/24 12:00 06/19/24 12:42 Artificial Tears 225 Drop/15 Ml Btl BOTH EYES 07/18/24 11:59 1 drop QID JUAN JOSE Administration Bisacodyl 5 mg 06/14/24 17:15 06/19/24 10:29 Bisacodyl 5 Mg Tabec PO 07/14/24 17:14 5 mg QDAY JUAN JOSE Administration Protocol Dextrose 25 ml 06/06/24 08:20 Dextrose 50%-Water Inj 50 Ml Syringe IV 07/06/24 08:19 Q15MIN PRN BG 50-70 responsive npo pt Dextrose 50 ml 06/06/24 08:20 Dextrose 50%-Water Inj 50 Ml Syringe IV 07/06/24 08:19 Q15MIN PRN BG <50 OR BG <70 & pt unresponsive Emtricitabine/Tenofovir 1 tab 06/16/24 12:30 06/19/24 10:30 Emtricitabine 200 Mg/Tenofovir 300 Mg Tab (Non-Form) PO 07/16/24 12:29 1 tab QDAY JUAN JOSE Administration Glucagon 1 mg 06/06/24 08:20 Glucagon Inj 1 Mg Vial IM Q15MIN PRN BG <70, and no IV access Micafungin Sodium 100 mg/ 100 mls @ 100 mls/hr 06/09/24 09:00 06/19/24 10:29 Sodium Chloride IV 06/24/24 08:59 100 mls/hr QDAY JUAN JOSE Administration Linezolid 600 mg in 300 mls @ 300 mls/hr 06/15/24 11:31 06/19/24 10:28 Zyvox Ivpb IV 06/22/24 11:30 300 mls/hr Q12HR JUAN JOSE Administration Heparin Sodium/Dextrose 25,000 unit in 250 mls @ 13.608 mls/hr 06/15/24 14:45 06/19/24 14:41 Heparin In D5w Ivpb IV 06/29/24 14:44 24 units/kg/hr .[id number] JUAN JOSE 18.144 mls/hr Titration Protocol 18 UNITS/KG/HR Midazolam HCl 100 mg in 100 mls @ 1 mls/hr 06/18/24 11:14 06/19/24 13:00 Versed Pf Inj In Ns Premix IV 06/23/24 11:13 3 mg/hr .Q24H PRN 3 mls/hr PER PROTOCOL Titration Protocol 1 MG/HR Fentanyl Citrate 2,500 mcg in 250 mls @ 2.5 mls/hr 06/18/24 12:17 06/19/24 13:29 Sublimaze Inj 2,500 Mcg/250 Ml Bag IV 06/20/24 10:01 300 mcg/hr .Q24H PRN 30 mls/hr PER PROTOCOL Administration Protocol 25 MCG/HR Propofol 1,000 mg in 100 mls @ 2.487 mls/hr 06/18/24 12:17 06/19/24 13:00 Diprivan Ivpb IV 07/09/24 14:25 30 mcg/kg/min .Q24H PRN 14.922 mls/hr PER PROTOCOL Titration Protocol 5 MCG/KG/MIN Methylprednisolone Sodium Succinate 40 mg 06/17/24 12:45 06/19/24 10:28 Methylprednisolone Sod Succ 40 Mg Vial IVP 06/24/24 12:44 40 mg QDAY JUAN JOSE Administration Ondansetron HCl 4 mg 05/29/24 21:51 06/04/24 17:44 Ondansetron Inj 2 Mg/Ml Inj 2 Ml IV 06/28/24 21:50 4 mg Q6HR PRN Administration NAUSEA OR VOMITING Protocol Pantoprazole Sodium 40 mg 06/06/24 09:00 06/19/24 10:29 Pantoprazole Inj 40 Mg Vial IVP 07/06/24 08:59 40 mg QDAY JUAN JOSE Administration Patiromer 8.4 gm 06/09/24 10:45 06/19/24 10:24 Patiromer Calcium 8.4 Gm Packet (Non-Form) NG 07/09/24 10:44 8.4 gm QDAY JUAN JOSE Administration Polyethylene Glycol 17 gm 06/14/24 17:15 06/19/24 10:30 Polyethylene Glycol 17 Gm Packet PO 07/14/24 17:14 17 gm QDAY JUAN JOSE Administration Quetiapine Fumarate 25 mg 06/13/24 21:00 06/18/24 20:41 Quetiapine Fumarate 25 Mg Tablet PO 07/13/24 20:59 25 mg HS JUAN JOSE Administration Raltegravir 400 mg 06/16/24 12:30 06/19/24 10:25 Raltegravir 100 Mg Chew (Non-Form) NG 06/23/24 12:29 400 mg BID JUAN JOSE Administration Sennosides 1 tab 06/11/24 09:00 06/19/24 10:29 Senna Tablet PO 07/11/24 08:59 1 tab QDAY JUAN JOSE Administration Protocol Trimethoprim/Sulfamethoxazole 40 ml 06/15/24 06:00 06/19/24 12:43 Trimethoprim 40 Mg/Sulfa 200 Mg Susp 5 Ml PO 06/22/24 05:59 40 ml QID JUAN JOSE Administration Plan 39-year-old male patient with no PMHx who initially presented to [facility] on 05/27/2024 with a chief complaint of shortness of breath and cough, with associated chills, body aches, generalized weakness, fever, and night sweats beginning weeks prior but progressively worsening over a few days. ED work-up revealed extensive bilateral diffuse infiltrate, patient met 4/4 SIRS, was requiring 4L O2, and was subsequently admitted for acute hypoxic respiratory failure secondary to bilateral community-acquired pneumonia of unknown etiology. Procal was only slightly elevated at 0.61 and he was first empirically treated with levofloxacin from 05/27-05/29 for suspicion of atypical pneumonia and fluconazole for cocci coverage. Patient quickly progressed to requiring Hi-Flow oxygen and had multiple rapid response alerts for increasing oxygen requirements and recurrent fevers. He was monitored in ICU from 05/30- 05/31, at that time started on steroids and antibiotics were escalated to azithromycin, doxycycline, and Zosyn as well as high dose steroids. He seemed to have improved and was downgraded at that time without needing intubation. ID and Pulmonology were consulted, and the patient was started on Bactrim to cover pneumocystis pneumonia. Several tests which had been sent were negative, including Cocci IgM and IgG, Legionella, and all blood, urine, sputum cultures had been negative at that point. HIV test was reported to be a preliminary positive, and sent out for confirmation studies but result had significant delay. Patient had reported a single sexual partner with his fiance for the last 5 years, last contact few weeks before admission, and denied IV drug usage. He did endorse 1 pack per day smoking history since teenage years, and occasional alcohol and marijuana. He had tattoos done as a young teenager, none recent. He had history of temporary incarceration. After the downgrade, patient developed worsening dyspnea on movement, desaturation, and complaints of work of breathing despite Hi-Flow at 100% FiO2. He was upgraded to ICU again on 06/05 for intubation and bronchoscopy, which showed normal-appearing mucosa, and BAL sample was sent for culture and cytology. Patient was given paralysis and managed with vent settings for ARDS. At this point, autoimmune studies including Rh factor, DANIEL, ANCA, Anti-proteinase 3, Anti-myeloperoxidase, Complement C3/C4c all returned negative. Absolute CD4 count was low at 116. On 06/07, in light of still unconfirmed diagnosis and critical status, patient's named [id number] and decision-maker, sister Francesca, was asked to bring forward any other additional history about patient's substance use, particularly any vape pens or supplements/substances he may have used to investigate for possible Vape-Associated Lung Injury. Sister brought in patient's bag of belongings from home containing vials of trenbolone (anabolic steroid) and testosterone and needles, which sister reports may have been purchased from [facility]. There were additional male enhancement supplements, synthetic urine kit, marijuana wax pen, and cigarette boxes. 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 On 06/08, HIV viral load came back at 5,660,000 copies. HIV 1 antibody was positive. HIV 2 negative. On 06/09, patient was started on antiretrovirals, Truvada and raltegravir. Patient also started having significant hyperkalemia, requiring multiple pushes of insulin, calcium gluconate, and kayexylate, eventually needing dialysis on 06/06, 06/08, and 06/09. Suspected Bactrim adverse effect, Bactrim was continued however to treat PCP. Patient has continued on mechanical ventilation. While he initially succeeded at weaning to spontaneous mode with Pressure Support of 8, FiO2 40% on sedation, it has been a challenge to wean sedation off successfully. Patient would become increasingly tachypneic, with work of breathing and desaturation, and has been unable have sedation low enough to follow commands, eye track, or make purposeful movements. On 06/15, patient had spiked fevers, WBC worsened, and patient had tachypneia again with worsening respiratory acidosis. Patient was proned. PE was suspected and heparin drip was started. ET sputum culture from 06/09 grew VRE enterococcus casseliflavus therefore linezolid and meropenem was started, Zosyn was discontinued. Patient is planned for tracheostomy by 06/20/2024 (Day 16 of intubation) if unable to wean from the vent. 06/19/2024; Patient was seen and examined by bedside, no acute overnight events reported, remains intubated and mechanically ventilated, vitals stable with mildly elevated BP 150/70, HR 86, CBC/CMP noted for significant improvement in LFTs, and hypophosphatemia, ABG this AM noted for improvement in respiratory acidosis, pCO2 63, pO2 66. Continuing patient on sedation with RAAS goal of -4, will likely delay tracheostomy placement for a few days as patient continues to have high respiratory rate. Continue patient on current regimen of Linezolid for VRE, Bactrim, Micafungin, and Methylprednisolone for PCP, discontinue Meropenem as patient has been afebrile for few days, HAART for HIV. Tube feeding were resumed today for patient as they were previously held during pronation. NEURO #Acute encephalopathy, secondary to prolonged sedation 06/05/2024 Patient was intubated, sedated, and paralyzed for ARDS. Prior to intubation, patient was awake, alert, and oriented x3, following commands, conversational. Initially, fentanyl was discontinued 06/09 as a sedative due to concern for tachyphylaxis, restarted 06/15 Morphine drip (given in place of fentanyl) was discontinued 06/14 Cisatracurium was discontinued 06/11, restarted 06/15 Plan: -Goal sedation: RASS -5 -Fentanyl at 150 mcg/hr -Propofol at 50 mcg/kg/min -Cisatracurium to target 2/4 ToF twitches -Midazolam 4 mg IV prn for breakthrough agitation #Fever---Resolved 06/15 Fever overnight with spike at 102.0, acetaminophen 975 mg given with resolution of fever. Possible new ventilator-associated infection? Plan: -Acetaminophen as needed -New blood cultures sent 06/15 -New ET culture sent 06/15 CARDIO #Sinus tachycardia---Resolved. Tachycardia most likely secondary to respiratory distress and agitation. 06/15: Possible new sepsis? Patient with new fevers, increased tachypneia. Low threshold of suspicion for PE, therefore heparin drip was started 06/15. Plan: -Continuous telemetry -Continue sedation with RASS goal -4 for now -Doppler US right upper extremity 06/17/24: right upper extremity DVT. -CTPA negative for PE 06/16/24 #Septic shock, resolved Secondary to severe extensive bilateral pneumonia. Patient was on norepinephrine 06/06-06/10. Currently off pressors. 06/06/2024 Echo was read EF 55-60% 06/09/2024 Blood cultures negative 06/09/2024 Urine culture negative 06/09/2024 ET culture POSITIVE for Staph haemolyticus, Entercoccus casseliflavus vancomycin-resistant PULM #Acute hypoxic respiratory failure Secondary to #Bilateral pneumocystis jirovecii pneumonia #Healthcare associated pneumonia #Ventilator associated pneumonia Patient presented with dyspnea and cough, requiring 4L NC on first ED evaluation, and history of chills, body aches, generalized weakness, fever, and night sweats progressively worsening over the prior weeks. Approx 20-pack year smoking history, occasional marijuana. 05/27/2024 Received ceftriaxone/azithromycin in ED. Started on levofloxacin as an inpatient. 05/28/2024 Started on fluconazole (discontinued 06/12). Started requiring Hi- Flow. 05/30/2024 Upgraded to ICU for close monitoring. Started on doxycycline. Started on azithromycin (completed 5-days). Started on Zosyn (discontinued 06/15). Started Solu-Medrol. 06/01/2024 Downgraded. Started on Bactrim (discontinued doxy). 06/05/2024 Intubation of the patient, return to ICU. Suspected ARDS. Bronchoscopy showed normal-appearing mucosa and no mucous plugging, hemorrhage, or friability bilaterally. Bronchoalveolar washings culture were negative for growth. Fungal cultures are pending. 06/07/2024 Bronchoalveolar lavage cytology shows Pneumocystis jirovecii. Also other fungi, possibly Kassandra. Kassandra is most likely a contaminant. Blood zakt-I-ajbypo also positive. 06/08/2024 HIV quant 5.66 million copies. HIV 1 positive confirmed. Patient was proned due to desaturation event. 06/09/2024 Started on prophylactic micafungin. Started Truvada and raltegravir HAART. Patient's decision-maker, sister Francesca informed of HIV+ and diagnosis. 06/14/2024 ETT sputum cultures from 06/09 positive for Staphylococcus hemolyticus, ID stated that this is not a respiratory pathogen, no need to treat. 06/15/2024 Above #2 pathogen showed vancomycin-resistant enterococcus casseliflavus, started linezolid. Zosyn stopped and meropenem started. 06/15/2024 Increased tachypnea, vent overbreathing, paralyzed and proned. 06/17/2024 oxygenation and hypercapnia improved, was put in supine position, continued to be paralyzed. 06/18/2024 paralytic was discontinued, the plan is to continue with sedation until the tracheostomy placement. Plan: -Ventilation on volume control, saturation to be maintained >90%, PEEP was decreased to 8, increased RR, FiO2 at 40% wean if tolerated -ABG q4h -Continue Bactrim 06/01/24 - to be continued through 06/21 for 21 days of treatment -Discontinued Zosyn 05/30/24-06/15/24 -Started meropenem 1000 mg q8h 06/15/24- -Started linezolid 600 mg q12h 06/15/24- -Continue micafungin 100 mg qday 06/09/24- -Fungal cultures from BAL pending -DuoNebs q4h as needed -New blood cultures sent 06/15?negative for growth -New ET culture sent 06/15?negative for growth #ARDS #Respiratory acidosis---Improving Patient continues to have increased oxygen demands with worsening bilateral infiltrates on CXR. Will maintain ARDS ventilation protocol. 06/08/24 P:F ratio 89/1=89. Severe ARDS. 06/09/24 P:F ratio 97/29=891. Moderate ARDS. 06/10/24 P:F ratio 65/33=890 06/11/24 P:F ratio 70/04=168 06/12/24 P:F ratio 217 06/13/24 P:F ratio 160 06/15/24 P:F ratio 91, ABGs showing pH in the 7.00s, elevated pCO2 110-120s. Plan: -VC overnight, maintain PEEP 12-14, FiO2 to maintain saturation 92% -Maintain peak plateau <30 -Improve hypercapnia -Discontinued paralytic -Follow up ABG -Methylprednisolone 40 mg qday GI Prophylaxis: Pantoprazole 40 mg IV qday #Elevated LFTs, improving Likely due to propofol and bactrim. Mildly elevated, liver US 05/30/2024 showed normal gallbladder and hepatomegaly without lesions or evidence of obstructions. Hep panel negative. LFTs downtrended compared to 06/06/24. 06/15/2024 Floyd in LFTs with AST 303, ALT 420, Tbili 1.3, therefore right upper quadrant US ordered, negative for cholecystitis/cholelithiasis, hepatitis panel negative. No obvious changes on physical exam. Plan: -Continue monitoring NEPHRO #Hypophosphatemia #WILL, resolved #Mild hyponatremia---Resolved #Hyperkalemia---Resolved #Hyperphosphatemia, resolved Ddx: Prerenal WILL due to hypotension vs possible rhabdomyolysis vs drug toxicity (zosyn, vancomycin, bactrim) Unlikely rhabdomyolysis, CK was 511 06/06, did not uptrend. Urine output is >100 ml/hr, urine is yellow and clear. Possible underlying SIADH. Potassium 06/11/24 4.4. Plan: -Continue Veltassa 8.4 gm qday for potassium chelation -Nephrology Dr. Song is following for as-needed dialysis due to hyperkalemia -Continue free water at 40 ml/hr -Maintain euvolemia -Monitor CMP, especially potassium -Replete electrolytes as needed. #Metabolic alkalosis #Respiratory acidosis ABGs are showing acidemia with elevation of pCO2, indicative of primary respiratory acidosis. There is an underlying metabolic alkalosis due to the given bicarb being greater than the expected compensatory bicarb. pH 7.10, pCO2 118, pO2 102, HCO3 37 Plan: -Patient was given 150 mEq bicarb in pushes x3 throughout the day 06/15 for acidemia -Bicarb drip was discontinued 06/17 -Follow-up lactate was normal URO #No active problems -Tijerina placed 06/05/2024 for strict I&O monitoring HEME #Leukocytosis Fluctuating WBC. In the setting of likely infection, inflammation, and corticosteroids. Plan: -Treatment of pneumonia as above #Microcytic anemia Stable, has not required any transfusions this admission thus far. Clinically no evidence of bleeding. Iron panel shows iron 17, TIBC 262, iron saturation 6, unsaturated iron binding 245. Peripheral blood film confirms microcytic hypochromic anemia with target cells. Also daily lab draws contributing. Plan: -Monitor H&H. Transfusing for Hgb <7 #Thrombocytosis, resolved Likely reactive. -Continue to monitor ENDO #No active problems -Blood glucose on chemistry panels in acceptable range ID #Bilateral pneumocystis pneumonia #Healthcare associated pneumonia #Ventilator associated pneumonia Negative studies: Cocci IgM and IgG, Hepatitis panel, Syphilis, Legionella, H.flu, N.meningitidis, Strep B, Strep pneumoniae, COVID, RSV, Flu A & B. TB quantiferon GOLD-indeterminate, however 06/05 AFB negative, CMV IgM, cryptococcal antigen negative. G6PD levels came back normal for consideration of dapsone alternative to Bactrim if needed. Patient completed 5 day course of azithromycin, 16 days of Zosyn. See Pulm for timeline of antimicrobial coverage. Plan: -Continue Bactrim 06/01/24 - to be continued through 06/21 for 21 days of treatment -Discontinued Zosyn 05/30/24-06/15/24 -Discontinue meropenem as patient has been afebrile since 06/15 -continue linezolid 600 mg q12h 06/15/24- -Continue micafungin 100 mg qday 06/09/24- -Fungal cultures from BAL pending -New blood cultures sent 06/15?negative for growth -New ET culture sent 06/15?negative for growth #AIDS/HIV Patient has Stage 4 HIV, AIDS-defining illness with opportunistic infection. 06/07/2024 Bronchoalveolar lavage cytology shows Pneumocystis jirovecii. Also other fungi, possibly Kassandra. Kassandra is most likely a contaminant. Blood ezrb-T-becplc also positive. 06/08/2024 HIV quant 5.66 million copies. HIV 1 positive confirmed. 06/09/2024 Patient's decision maker, Francesca, was informed of diagnosis due to critical state of patient. Absolute CD4 count 87 and 22% on 06/02. History/risk factors: History of injection anabolic androgenic steroid and testosterone use, possible unclean needles. History of incarceration (unknown time). Tattoos received as a teenager. Has 1 female sexual partner last 5 years, denies others. -Continue HAART: emtricitabine / tenofovir (Truvada) and raltegravir initiated 06/09/24 -Patient is not aware of his diagnosis as he has been intubated and sedated before results returned. Will require complete education and counseling on the disease if his mental status and clinical condition improves. MSK #Elevated creatine kinase Checked CK due to acute WILL, however now resolved. Unlikely to be rhabdo, patient producing adequate clear urine. Most likely elevated due to paralytic use and bedbound status. 06/06 511 06/08 206 06/10 220 Plan: -Continue to monitor urine output and kidney function SKIN #No active problems DVT prophylaxis: Lovenox 40 subQ qday GI prophylaxis: Pantoprazole 40 mg IV qday Diet: Tube feeds Nepro Tijerina: Present (06/05- ) Lines: Peripheral IV, radial arterial line. Antibiotics: Bactrim, linelozid, micafungin CODE STATUS: FULL CODE Reason for ICU care: Acute hypoxic respiratory failure secondary to bilateral pneumonia/ARDS Patient plan of care was discussed with the attending physician, Dr. Price. Rai Magallanes, PGY-3
[2024-06-19] MEDS: MIDAZOLAM/NS 100 MG IVPB 100 MG/100 ML BAG IV (18:05)
[2024-06-19] MEDS: QUEtiapine FUMARATE 25 MG TABLET PO (20:45)
[2024-06-19 21:18] LABS: Partial Thromboplastin Time 87.4 Seconds (22.0-36.0)
[2024-06-20] VITALS (31 sets, daily range): BP systolic 107–211; BP diastolic 46–87; PULSE 87–120; RESP 29–36; TEMP 36.5–37.4; O2SAT 89–99; BMI 26.6
[2024-06-20] MEDS: PROPOFOL 1,000 MG IVPB 1,000 MG/100 ML VIAL 14.922 MG IV (02:12)
[2024-06-20 04:58] LABS: Base Excess 14 (-3-3); HCO3 42 mEq/L (20-26); Inspired Oxygen, FIO2 35 %; O2 Saturation 87 % (91-98); PCO2 74 mmHg (32.0-48.0); pH, Arterial 7.36 (7.35-7.45)
[2024-06-20 05:02] LABS: Allen Test Not Performed; PO2 55 mmHg (83-108); Puncture Site Arterial Line
[2024-06-20] MEDS: Artificial Tears 225 DROP/15 ML BTL BOTH EYES ×4 (05:14→20:37)
[2024-06-20] MEDS: TRIMETHOPRIM PO ×4 (05:15→20:38)
[2024-06-20] MEDS: SULFA PO ×4 (05:15→20:38)
[2024-06-20 05:48] LABS: Basophils % (Auto) 0 % (0-2.5); Eosinophils # (Auto) 0.5 Thou/mm3 (0.0-0.5); Eosinophils % (Auto) 6 % (0-10); Hematocrit 27.8 % (41.0-53.0); Immature Granulocytes % (Auto) 1 % (0-0); Immature Granulocytes Auto 0.04 Thou/mm3 (0.00-0.00); Lymphocytes # (Auto) 0.2 Thou/mm3 (1.0-4.8); Lymphocytes % (Auto) 3 % (10-50); Mean Corpuscular HGB Conc 30.2 g/dl (31.0-37.0); Mean Corpuscular Hemoglobin 23.6 pg (25.0-35.0); Mean Corpuscular Volume 78 fL (80-100); Monocytes # (Auto) 0.1 Thou/mm3 (0.0-0.8); Monocytes % (Auto) 1 % (0-12); Neutrophils # (Auto) 7.6 Thou/mm3 (1.8-7.7); Neutrophils % (Auto) 89 % (37-80); Nucleated Red Blood Cell # 0.02 Thou/mm3 (0.00-0.00); Nucleated Red Blood Cell % 0 /100 WBC (0); Platelet Count 169 Thou/mm3 (140-440); RDW Standard Deviation 58.5 fL (35.1-43.9); Red Blood Count 3.56 Miln/mm3 (4.50-5.90); White Blood Count 8.5 Thou/mm3 (3.8-10.6)
[2024-06-20 06:09] LABS: Hemoglobin 8.4 g/dL (13.5-16.0)
[2024-06-20] MEDS: fentaNYL 2,500 MCG/250 ML BAG 2,500 MCG/250 ML BAG 30 MCG IV (06:11)
[2024-06-20 06:22] LABS: Partial Thromboplastin Time 59.5 Seconds (22.0-36.0)
[2024-06-20 06:23] LABS: Alanine Aminotransferase 123 U/L (10-49); Albumin, Serum 2.8 gm/dL (3.5-5.0); Albumin/Globulin Ratio 0.9 (1.2-2.2); Alkaline Phosphatase 118 U/L (46-116); Anion Gap 2 (7-16); Aspartate Amino Transferase 99 U/L (0-34); BUN/Creatinine Ratio 28 Ratio (12-20); Bilirubin,Total 0.4 mg/dL (0.3-1.2); Blood Urea Nitrogen 14 mg/dL (9-23); Calcium 8.7 mg/dL (8.3-10.6); Calcium (Corrected) 9.7 mg/dL (8.5-10.1); Carbon Dioxide 39.3 mMol/L (20.0-31.0); Chloride 96 mMol/L (98-107); Creatinine (Component) 0.5 mg/dL (0.6-1.3); Estimated Creatinine Clearance 195.7 mL/min (>60); Glucose 104 mg/dL (74-106); Magnesium 1.8 mg/dL (1.6-2.6); Osmolality,Calculated 274 (275-295); Phosphorous 1.4 mg/dL (2.4-5.1); Potassium 4.2 mMol/L (3.4-5.1); Sodium 137 mMol/L (136-145); Total Protein 5.8 gm/dL (5.7-8.2); eGFR > 60 See Note
[2024-06-20] MEDS: SOD PHOS ADDITIVE 30 MMOL in SODIUM CHLORIDE 0.9% 500 ML 500 ML 62.5 MMOL IV (08:42)
[2024-06-20] MEDS: PANTOPRAZOLE INJ 40 MG VIAL IVP (08:42)
[2024-06-20] MEDS: LINEZOLID 600 MG IVPB 600 MG/300 ML BAG 300 MG IV ×2 (08:42→20:37)
[2024-06-20] MEDS: EMTRICITABINE 200 MG/TENOFOVIR 300 MG TAB (NON-FORM) 1 TAB PO (08:42)
[2024-06-20] MEDS: PATIROMER CALCIUM 8.4 GM PACKET (NON-FORM) NG (08:43)
[2024-06-20] MEDS: [UNRECOGNIZED DRUG - REMARK] 400 MG NG ×2 (09:27→20:38)
[2024-06-20] MEDS: MICAFUNGIN SODIUM INJ 100 MG in SODIUM CHLORIDE 0.9% 100 ML IV (09:28)
--- NOTE | 2024-06-20 09:48 | PD.RESPRO ---
Documentation for date of: 06/20/24 Subjective Subjective Interval history: Patient seen and examined. Sedated and intubated. No acute events overnight. Exam Vital Signs Temp Pulse Resp BP Pulse Ox O2 Del Method O2 Flow Rate 98.1 F 98 30 H 132/54 H 92 L Mechanical Ventilation 40 06/20/24 08:00 06/20/24 09:00 06/19/24 22:10 06/20/24 09:00 06/20/24 09:00 06/20/24 08:00 06/09/24 12:16 FiO2 35 06/20/24 08:00 Narrative Exam GEN: Critically ill, not acutely distressed, sedated and intubated. Neuro: Deferred due to sedation. HEENT: NCAT, trachea midline, moist mucous membranes, ET tube in place, PO tube noted. CVS: RRR, S1S2 present, no M/R/G. No JVD Respi: Mechanically ventilated, b/l breath sounds heard with diffuse rhonchi, no wheezing/crackles. ABD: Soft, no grimace to palpation, bowel sounds present in all 4 quadrants. Skin: warm, dry and intact. Extremities: Pulses 3+ in all extremities, RUE edema, vesicles 1-2 cm on the forearm surface. Objective Labs 06/22/24 04:47 06/22/24 04:47 Labs: Laboratory Results - last 24 hr 06/19/24 06/19/24 06/20/24 13:18 20:39 04:49 WBC RBC Hgb Hct MCV MCH MCHC RDW Std Deviation Plt Count Neut % (Auto) Lymph % (Auto) [place] % (Auto) Eos % (Auto) Baso % (Auto) Neut # (Auto) Lymph # (Auto) [place] # (Auto) Eos # (Auto) Baso # (Auto) Immature Gran # (Auto) Absolute Nucleated RBC Immature Gran % Nucleated RBC % APTT 48.7 H D 87.4 H D Puncture Site Arterial Line ABG pH 7.36 ABG pCO2 74 H* D ABG pO2 55 L* ABG HCO3 42 H ABG O2 Saturation 87 L ABG Base Excess 14 H FiO2 35 Sodium Potassium Chloride Carbon Dioxide Anion Gap BUN Creatinine Estim Creat Clear Calc eGFR BUN/Creatinine Ratio Glucose Calculated Osmolality Calcium Corrected Calcium Phosphorus Magnesium Total Bilirubin AST ALT Alkaline Phosphatase Total Protein Albumin Globulin Albumin/Globulin Ratio 06/20/24 05:09 WBC 8.5 RBC 3.56 L Hgb 8.4 L Hct 27.8 L MCV 78 L MCH 23.6 L MCHC 30.2 L RDW Std Deviation 58.5 H Plt Count 169 Neut % (Auto) 89 H Lymph % (Auto) 3 L [place] % (Auto) 1 Eos % (Auto) 6 Baso % (Auto) 0 Neut # (Auto) 7.6 Lymph # (Auto) 0.2 L [place] # (Auto) 0.1 Eos # (Auto) 0.5 Baso # (Auto) 0.0 Immature Gran # (Auto) 0.04 H Absolute Nucleated RBC 0.02 H Immature Gran % 1 H Nucleated RBC % 0 APTT 59.5 H D Puncture Site ABG pH ABG pCO2 ABG pO2 ABG HCO3 ABG O2 Saturation ABG Base Excess FiO2 Sodium 137 Potassium 4.2 Chloride 96 L Carbon Dioxide 39.3 H Anion Gap 2 L BUN 14 Creatinine 0.5 L Estim Creat Clear Calc 195.7 eGFR > 60 BUN/Creatinine Ratio 28 H Glucose 104 Calculated Osmolality 274 L Calcium 8.7 Corrected Calcium 9.7 Phosphorus 1.4 L Magnesium 1.8 Total Bilirubin 0.4 AST 99 H ALT 123 H Alkaline Phosphatase 118 H Total Protein 5.8 Albumin 2.8 L Globulin 3.0 Albumin/Globulin Ratio 0.9 L ABG Interpretation ABG results: 05/27/24 05/29/24 05/29/24 23:37 10:44 22:08 ABG pH 7.51 H 7.50 H 7.48 H ABG pCO2 28 L 32 32 ABG pO2 75 L 79 L 145 H D ABG HCO3 23 25 24 ABG O2 Saturation 96 95 98 ABG Base Excess 0 2 1 05/30/24 05/31/24 06/04/24 08:45 04:54 02:10 ABG pH 7.47 H 7.45 7.45 ABG pCO2 35 38 36 ABG pO2 86 D 82 L 139 H ABG HCO3 26 26 25 ABG O2 Saturation 97 96 98 ABG Base Excess 2 2 1 06/04/24 06/05/24 06/05/24 18:16 11:36 12:59 ABG pH 7.44 7.11 L* D 7.20 L ABG pCO2 36 94 H* D 68 H D ABG pO2 80 L D 150 H D 121 H D ABG HCO3 24 30 H 26 ABG O2 Saturation 94 97 97 ABG Base Excess 0 -2 -3 06/05/24 06/06/24 06/06/24 19:25 04:13 15:27 ABG pH 7.22 L 7.27 L 7.30 L ABG pCO2 64 H 57 H 60 H ABG pO2 122 H 153 H D 74 L D ABG HCO3 26 26 29 H ABG O2 Saturation 97 99 H 92 ABG Base Excess -3 -2 2 06/07/24 06/07/24 06/08/24 03:55 09:59 04:20 ABG pH 7.41 D 7.43 7.45 ABG pCO2 56 H 55 H 50 H ABG pO2 293 H D 78 L D 75 L ABG HCO3 36 H 37 H 35 H ABG O2 Saturation 99 H 95 94 ABG Base Excess 10 H 11 H 10 H 06/08/24 06/08/24 06/08/24 11:05 11:50 13:18 ABG pH 7.17 L* D 7.10 L* 7.15 L* ABG pCO2 95 H* D 115 H* D 88 H* D ABG pO2 89 75 L 72 L ABG HCO3 34 H 36 H 31 H ABG O2 Saturation 92 84 L 85 L ABG Base Excess 3 4 H 0 06/08/24 06/09/24 06/09/24 17:02 01:33 03:15 ABG pH 7.18 L* 7.22 L 7.27 L ABG pCO2 50 H D 91 H* D 82 H* ABG pO2 82 L 105 D 86 ABG HCO3 19 L 37 H 38 H ABG O2 Saturation 93 97 95 ABG Base Excess -9 L 7 H 9 H 06/09/24 06/09/24 06/10/24 05:08 12:52 04:40 ABG pH 7.31 L 7.33 L 7.30 L ABG pCO2 75 H* 57 H D 78 H* D ABG pO2 97 158 H D 65 L D ABG HCO3 38 H 30 H 38 H ABG O2 Saturation 97 99 H 90 L ABG Base Excess 10 H 3 9 H 06/10/24 06/11/24 06/12/24 09:40 04:19 04:15 ABG pH 7.27 L 7.35 7.48 H D ABG pCO2 88 H* D 86 H* 63 H D ABG pO2 65 L 70 L 76 L ABG HCO3 40 H 48 H 47 H ABG O2 Saturation 89 L 93 95 ABG Base Excess 10 H 19 H 21 H 06/13/24 06/14/24 06/15/24 07:22 04:32 03:45 ABG pH 7.46 H 7.48 H 7.46 H ABG pCO2 56 H 40 D 37 ABG pO2 80 L 64 L 71 L ABG HCO3 39 H 30 H 27 H ABG O2 Saturation 95 92 94 ABG Base Excess 13 H 6 H 3 06/15/24 06/15/24 06/15/24 10:17 12:20 14:20 ABG pH 7.01 L* D 7.00 L* 7.03 L* ABG pCO2 122 H* D 130 H* 125 H* ABG pO2 91 D 88 82 L ABG HCO3 31 H 32 H 33 H ABG O2 Saturation 88 L 88 L 87 L ABG Base Excess -3 -2 -1 06/15/24 06/15/24 06/16/24 15:55 20:39 00:35 ABG pH 7.03 L* 7.08 L* 7.10 L* ABG pCO2 121 H* 116 H* 118 H* ABG pO2 99 117 H 102 ABG HCO3 32 H 34 H 37 H ABG O2 Saturation 93 97 96 ABG Base Excess -1 2 4 H 06/16/24 06/16/24 06/17/24 04:45 08:55 05:06 ABG pH 7.17 L* 7.28 L D 7.33 L ABG pCO2 112 H* 88 H* D 96 H* ABG pO2 155 H D 98 D 126 H D ABG HCO3 41 H 41 H 50 H ABG O2 Saturation 99 H 98 99 H ABG Base Excess 9 H 12 H 21 H 06/17/24 06/17/24 06/18/24 10:58 13:55 04:16 ABG pH 7.29 L 7.29 L 7.33 L ABG pCO2 106 H* D 106 H* 86 H* D ABG pO2 58 L* D 61 L 77 L ABG HCO3 51 H 51 H 45 H ABG O2 Saturation 87 L 88 L 95 ABG Base Excess 21 H 21 H 17 H 06/19/24 06/20/24 04:18 04:49 ABG pH 7.42 7.36 ABG pCO2 63 H D 74 H* D ABG pO2 66 L 55 L* ABG HCO3 41 H 42 H ABG O2 Saturation 93 87 L ABG Base Excess 15 H 14 H Quality Measures Quality Measures sepsis Current suspected stage: ruled out Possible source: pulmonary, GI tract/intra-abdominal, genitourinary and skin/soft tissue Blood cultures ordered: yes Antibiotic ordered: Yes Assessment & Plan Assessment Current Active Medications: Generic Name Dose Route Start Last Admin Trade Name Freq PRN Reason Stop Dose Admin Acetaminophen 975 mg 06/09/24 14:27 06/15/24 02:56 Acetaminophen Munira 325 Mg/10 Ml Udc PO 06/26/24 12:10 975 mg Q6H PRN Administration Pain 1-3 and Fever >101.5 Albuterol/Ipratropium 3 ml 06/05/24 11:40 06/09/24 22:18 Albuterol/Ipratropium (Duoneb) Rt Munira 3 Ml Nebu INH 07/05/24 14:59 3 ml Q4HRRT PRN Administration Wheezing Artificial Tears 1 drop 06/18/24 12:00 06/20/24 05:14 Artificial Tears 225 Drop/15 Ml Btl BOTH EYES 07/18/24 11:59 1 drop QID JUAN JOSE Administration Bisacodyl 5 mg 06/14/24 17:15 06/20/24 08:37 Bisacodyl 5 Mg Tabec PO 07/14/24 17:14 Not Given QDAY JUAN JOSE Protocol Dextrose 25 ml 06/06/24 08:20 Dextrose 50%-Water Inj 50 Ml Syringe IV 07/06/24 08:19 Q15MIN PRN BG 50-70 responsive npo pt Dextrose 50 ml 06/06/24 08:20 Dextrose 50%-Water Inj 50 Ml Syringe IV 07/06/24 08:19 Q15MIN PRN BG <50 OR BG <70 & pt unresponsive Emtricitabine/Tenofovir 1 tab 06/16/24 12:30 06/20/24 08:42 Emtricitabine 200 Mg/Tenofovir 300 Mg Tab (Non-Form) PO 07/16/24 12:29 1 tab QDAY JUAN JOSE Administration Glucagon 1 mg 06/06/24 08:20 Glucagon Inj 1 Mg Vial IM Q15MIN PRN BG <70, and no IV access Micafungin Sodium 100 mg/ 100 mls @ 100 mls/hr 06/09/24 09:00 06/20/24 09:28 Sodium Chloride IV 06/24/24 08:59 100 mls/hr QDAY JUAN JOSE Administration Linezolid 600 mg in 300 mls @ 300 mls/hr 06/15/24 11:31 06/20/24 08:42 Zyvox Ivpb IV 06/22/24 11:30 300 mls/hr Q12HR JUAN JOSE Administration Heparin Sodium/Dextrose 25,000 unit in 250 mls @ 13.608 mls/hr 06/15/24 14:45 06/19/24 22:00 Heparin In D5w Ivpb IV 06/29/24 14:44 22 units/kg/hr .[id number] JUAN JOSE 16.632 mls/hr Administration Protocol 18 UNITS/KG/HR Midazolam HCl 100 mg in 100 mls @ 1 mls/hr 06/18/24 11:14 06/20/24 09:00 Versed Pf Inj In Ns Premix IV 06/23/24 11:13 2 mg/hr .Q24H PRN 2 mls/hr PER PROTOCOL Titration Protocol 1 MG/HR Fentanyl Citrate 2,500 mcg in 250 mls @ 2.5 mls/hr 06/18/24 12:17 06/20/24 09:00 Sublimaze Inj 2,500 Mcg/250 Ml Bag IV 06/20/24 10:01 250 mcg/hr .Q24H PRN 25 mls/hr PER PROTOCOL Titration Protocol 25 MCG/HR Propofol 1,000 mg in 100 mls @ 2.487 mls/hr 06/18/24 12:17 06/20/24 09:00 Diprivan Ivpb IV 07/09/24 14:25 Infused .Q24H PRN Titration PER PROTOCOL Protocol 5 MCG/KG/MIN Sodium Phosphate 30 mmol/ 510 mls @ 62.5 mls/hr 06/20/24 08:30 06/20/24 08:42 Sodium Chloride IV 06/20/24 16:39 62.5 mls/hr X1 ONE Administration Methylprednisolone Sodium Succinate 40 mg 06/17/24 12:45 06/20/24 08:42 Methylprednisolone Sod Succ 40 Mg Vial IVP 06/24/24 12:44 40 mg QDAY JUAN JOSE Administration Ondansetron HCl 4 mg 05/29/24 21:51 06/04/24 17:44 Ondansetron Inj 2 Mg/Ml Inj 2 Ml IV 06/28/24 21:50 4 mg Q6HR PRN Administration NAUSEA OR VOMITING Protocol Pantoprazole Sodium 40 mg 06/06/24 09:00 06/20/24 08:42 Pantoprazole Inj 40 Mg Vial IVP 07/06/24 08:59 40 mg QDAY JUAN JOSE Administration Patiromer 8.4 gm 06/09/24 10:45 06/20/24 08:43 Patiromer Calcium 8.4 Gm Packet (Non-Form) NG 07/09/24 10:44 8.4 gm QDAY JUAN JOSE Administration Polyethylene Glycol 17 gm 06/14/24 17:15 06/20/24 08:37 Polyethylene Glycol 17 Gm Packet PO 07/14/24 17:14 Not Given QDAY JUAN JOSE Quetiapine Fumarate 25 mg 06/13/24 21:00 06/19/24 20:45 Quetiapine Fumarate 25 Mg Tablet PO 07/13/24 20:59 25 mg HS JUAN JOSE Administration Raltegravir 400 mg 06/16/24 12:30 06/20/24 09:27 Raltegravir 100 Mg Chew (Non-Form) NG 06/23/24 12:29 400 mg BID JUAN JOSE Administration Sennosides 1 tab 06/11/24 09:00 06/20/24 08:37 Senna Tablet PO 07/11/24 08:59 Not Given QDAY JUAN JOSE Protocol Trimethoprim/Sulfamethoxazole 40 ml 06/15/24 06:00 06/20/24 05:15 Trimethoprim 40 Mg/Sulfa 200 Mg Susp 5 Ml PO 06/22/24 05:59 40 ml QID JUAN JOSE Administration Plan #Acute respiratory acidosis, primary #Metabolic alkalosis, secondary #Hypophos #Hyperkalemia, resolved Likely 2/2 to lung injury (increased Vd) due to severe ARDS 2/2 PJP in the setting of AIDS ABG 7.36/74/55/42 bicarb 39.3, phos low, K normal good UOP Plan: -cont vent settings -Kphos x1 -veltassa -monior electrolytes, UOP - Patient's care was discussed with my attending physician, Dr. Duncan Awan MD Internal Medicine PGY-3 Attending Provider Attestation/Addendum Agree with assessment and plan and findings. Seen and examined. labs reviewed. Plan discussed with resident. Teo Song MD
[2024-06-20] MEDS: PROPOFOL 1,000 MG IVPB 1,000 MG/100 ML VIAL 7.461 MG IV (10:41)
--- NOTE | 2024-06-20 10:53 | PD.IDPROG ---
Subjective Subjective Interval history: on linezolid hru 06/22 (thu) finishes bactrim then too but it is ok to extend adn slowly taper the steroids. Exam Vital Signs Temp Pulse Resp BP Pulse Ox O2 Del Method O2 Flow Rate 98.1 F 102 H 30 H 119/48 L 92 L Mechanical Ventilation 40 06/20/24 08:00 06/20/24 10:09 06/19/24 22:10 06/20/24 10:09 06/20/24 10:09 06/20/24 08:00 06/09/24 12:16 FiO2 35 06/20/24 10:09 Narrative Exam on vent at 35%. doing ok. but not frankly better . sedated. family in with him. all in isolation. Objective - Internal Medicine Labs 06/20/24 05:09 06/20/24 05:09 Labs: Laboratory Results - last 24 hr 06/19/24 06/19/24 06/20/24 13:18 20:39 04:49 WBC RBC Hgb Hct MCV MCH MCHC RDW Std Deviation Plt Count Neut % (Auto) Lymph % (Auto) [place] % (Auto) Eos % (Auto) Baso % (Auto) Neut # (Auto) Lymph # (Auto) [place] # (Auto) Eos # (Auto) Baso # (Auto) Immature Gran # (Auto) Absolute Nucleated RBC Immature Gran % Nucleated RBC % APTT 48.7 H D 87.4 H D Puncture Site Arterial Line ABG pH 7.36 ABG pCO2 74 H* D ABG pO2 55 L* ABG HCO3 42 H ABG O2 Saturation 87 L ABG Base Excess 14 H FiO2 35 Sodium Potassium Chloride Carbon Dioxide Anion Gap BUN Creatinine Estim Creat Clear Calc eGFR BUN/Creatinine Ratio Glucose Calculated Osmolality Calcium Corrected Calcium Phosphorus Magnesium Total Bilirubin AST ALT Alkaline Phosphatase Total Protein Albumin Globulin Albumin/Globulin Ratio 06/20/24 05:09 WBC 8.5 RBC 3.56 L Hgb 8.4 L Hct 27.8 L MCV 78 L MCH 23.6 L MCHC 30.2 L RDW Std Deviation 58.5 H Plt Count 169 Neut % (Auto) 89 H Lymph % (Auto) 3 L [place] % (Auto) 1 Eos % (Auto) 6 Baso % (Auto) 0 Neut # (Auto) 7.6 Lymph # (Auto) 0.2 L [place] # (Auto) 0.1 Eos # (Auto) 0.5 Baso # (Auto) 0.0 Immature Gran # (Auto) 0.04 H Absolute Nucleated RBC 0.02 H Immature Gran % 1 H Nucleated RBC % 0 APTT 59.5 H D Puncture Site ABG pH ABG pCO2 ABG pO2 ABG HCO3 ABG O2 Saturation ABG Base Excess FiO2 Sodium 137 Potassium 4.2 Chloride 96 L Carbon Dioxide 39.3 H Anion Gap 2 L BUN 14 Creatinine 0.5 L Estim Creat Clear Calc 195.7 eGFR > 60 BUN/Creatinine Ratio 28 H Glucose 104 Calculated Osmolality 274 L Calcium 8.7 Corrected Calcium 9.7 Phosphorus 1.4 L Magnesium 1.8 Total Bilirubin 0.4 AST 99 H ALT 123 H Alkaline Phosphatase 118 H Total Protein 5.8 Albumin 2.8 L Globulin 3.0 Albumin/Globulin Ratio 0.9 L ABG Interpretation ABG results: 05/27/24 05/29/24 05/29/24 23:37 10:44 22:08 ABG pH 7.51 H 7.50 H 7.48 H ABG pCO2 28 L 32 32 ABG pO2 75 L 79 L 145 H D ABG HCO3 23 25 24 ABG O2 Saturation 96 95 98 ABG Base Excess 0 2 1 05/30/24 05/31/24 06/04/24 08:45 04:54 02:10 ABG pH 7.47 H 7.45 7.45 ABG pCO2 35 38 36 ABG pO2 86 D 82 L 139 H ABG HCO3 26 26 25 ABG O2 Saturation 97 96 98 ABG Base Excess 2 2 1 06/04/24 06/05/24 06/05/24 18:16 11:36 12:59 ABG pH 7.44 7.11 L* D 7.20 L ABG pCO2 36 94 H* D 68 H D ABG pO2 80 L D 150 H D 121 H D ABG HCO3 24 30 H 26 ABG O2 Saturation 94 97 97 ABG Base Excess 0 -2 -3 06/05/24 06/06/24 06/06/24 19:25 04:13 15:27 ABG pH 7.22 L 7.27 L 7.30 L ABG pCO2 64 H 57 H 60 H ABG pO2 122 H 153 H D 74 L D ABG HCO3 26 26 29 H ABG O2 Saturation 97 99 H 92 ABG Base Excess -3 -2 2 06/07/24 06/07/24 06/08/24 03:55 09:59 04:20 ABG pH 7.41 D 7.43 7.45 ABG pCO2 56 H 55 H 50 H ABG pO2 293 H D 78 L D 75 L ABG HCO3 36 H 37 H 35 H ABG O2 Saturation 99 H 95 94 ABG Base Excess 10 H 11 H 10 H 06/08/24 06/08/24 06/08/24 11:05 11:50 13:18 ABG pH 7.17 L* D 7.10 L* 7.15 L* ABG pCO2 95 H* D 115 H* D 88 H* D ABG pO2 89 75 L 72 L ABG HCO3 34 H 36 H 31 H ABG O2 Saturation 92 84 L 85 L ABG Base Excess 3 4 H 0 06/08/24 06/09/24 06/09/24 17:02 01:33 03:15 ABG pH 7.18 L* 7.22 L 7.27 L ABG pCO2 50 H D 91 H* D 82 H* ABG pO2 82 L 105 D 86 ABG HCO3 19 L 37 H 38 H ABG O2 Saturation 93 97 95 ABG Base Excess -9 L 7 H 9 H 06/09/24 06/09/24 06/10/24 05:08 12:52 04:40 ABG pH 7.31 L 7.33 L 7.30 L ABG pCO2 75 H* 57 H D 78 H* D ABG pO2 97 158 H D 65 L D ABG HCO3 38 H 30 H 38 H ABG O2 Saturation 97 99 H 90 L ABG Base Excess 10 H 3 9 H 06/10/24 06/11/24 06/12/24 09:40 04:19 04:15 ABG pH 7.27 L 7.35 7.48 H D ABG pCO2 88 H* D 86 H* 63 H D ABG pO2 65 L 70 L 76 L ABG HCO3 40 H 48 H 47 H ABG O2 Saturation 89 L 93 95 ABG Base Excess 10 H 19 H 21 H 06/13/24 06/14/24 06/15/24 07:22 04:32 03:45 ABG pH 7.46 H 7.48 H 7.46 H ABG pCO2 56 H 40 D 37 ABG pO2 80 L 64 L 71 L ABG HCO3 39 H 30 H 27 H ABG O2 Saturation 95 92 94 ABG Base Excess 13 H 6 H 3 06/15/24 06/15/24 06/15/24 10:17 12:20 14:20 ABG pH 7.01 L* D 7.00 L* 7.03 L* ABG pCO2 122 H* D 130 H* 125 H* ABG pO2 91 D 88 82 L ABG HCO3 31 H 32 H 33 H ABG O2 Saturation 88 L 88 L 87 L ABG Base Excess -3 -2 -1 06/15/24 06/15/24 06/16/24 15:55 20:39 00:35 ABG pH 7.03 L* 7.08 L* 7.10 L* ABG pCO2 121 H* 116 H* 118 H* ABG pO2 99 117 H 102 ABG HCO3 32 H 34 H 37 H ABG O2 Saturation 93 97 96 ABG Base Excess -1 2 4 H 06/16/24 06/16/24 06/17/24 04:45 08:55 05:06 ABG pH 7.17 L* 7.28 L D 7.33 L ABG pCO2 112 H* 88 H* D 96 H* ABG pO2 155 H D 98 D 126 H D ABG HCO3 41 H 41 H 50 H ABG O2 Saturation 99 H 98 99 H ABG Base Excess 9 H 12 H 21 H 06/17/24 06/17/24 06/18/24 10:58 13:55 04:16 ABG pH 7.29 L 7.29 L 7.33 L ABG pCO2 106 H* D 106 H* 86 H* D ABG pO2 58 L* D 61 L 77 L ABG HCO3 51 H 51 H 45 H ABG O2 Saturation 87 L 88 L 95 ABG Base Excess 21 H 21 H 17 H 06/19/24 06/20/24 04:18 04:49 ABG pH 7.42 7.36 ABG pCO2 63 H D 74 H* D ABG pO2 66 L 55 L* ABG HCO3 41 H 42 H ABG O2 Saturation 93 87 L ABG Base Excess 15 H 14 H Assessment & Plan A&P Narrative pneumonia. cocci neg. procal not neg.pjp on bal noted. hiv. infection, newly discovered in a heterosexual man. can not r/o ivdu resp failure, hypoxic jo ann, resolved. acute febrile illness. cause uncertain. he has hiv, gf needs to be tested. ok for hiv rx as ordered. I will see him again on Thursday. ok for bactrim and steroids for now steroids typically extend about a week beyond the cessation or change to once daily on the bactrim . crytpo ag neg. As noted before, not every one survives, he is only 39, but is newly discovered to have a very bad disease that is easier to manage if caught earlier. ok to maintain steroid rxn. for now. repeat cx noted. ok to be off flucon as cd4 >100 and crypto ag neg. due to finish 21d of bactrim on about thu. Time Spent With Patient Time: Total time spent is greater than 50% in coordination of care (as documented) at patient's floor/unit and/or counseling patient:
--- NOTE | 2024-06-20 13:09 | ESPR_ITS ---
<Statement entered by Emely Price MD - 06/21/24 07:57> TOTAL CC TIME: 45 MIN I saw and evaluated the patient. I reviewed the resident?s note and agree with findings and plan as documented in the resident?s note. Upon my evaluation, this patient had a high probability of imminent or life- threatening deterioration due to acute hypoxic/hypercapnic respiratory failure which required my direct attention, intervention, and personal management. This time is exclusive of time spent on procedures, which are documented separately if performed. We weaned off sedation is much as possible yesterday to reassess this patient's mental status/neurological exam. However the patient's work of breathing becomes unstable with significant rapid shallow respirations. If the patient develops worsening desaturation episodes as a result of this and therefore we had to resume sedation in order to synchronize him to the mechanical ventilator. Plateau pressures remain acceptable Pending tracheostomy No new fevers Family updated at bedside Documentation for date of: 06/20/24 Subjective Subjective Interval history: 06/10/24: Patient is doing better today with ABG for this morning revealing a CO2 of 78 and a pH of 7.30. We are allowing for permissive hypercapnia and O2 65. Revealing PA/FiO2 ratio of 147. Overnight sedation was changed from fentanyl to morphine we will continue to titrate up morphine based on his hemodynamic stability. Patient became hypertensive and we suspect he requires more sedation so we will increase morphine. We will continue with paralytic use for 1 more day and discontinue tomorrow after 3 total days of paralytics. Patient's vancomycin was discontinued by infectious disease due to the fact that he remains on Bactrim. Dr Hope did suggest ordering a G6PD test to assess for G6PD deficiency in case we do switch to dapsone. Continuing with Bactrim, micafungin, and Zosyn. Transaminitis is continuing to improve and patient remains on Nepro with tube feeds at 40 cc an hour with low amounts of residuals. Last bowel movement was noted to be June 08 and he is receiving GI prophylaxis with Protonix. Hyperkalemia this morning appear to have been resolved with most recent potassium noted at 4.6. We will repeat another potassium at 2 PM to see if patient will require further hemodialysis but we will also initiate Lasix 40 mg IV push twice daily for diuresis in hopes that that will contribute to decreasing his hyperkalemia and help improve his potassium. Continues to remain anemic with iron deficiency anemia but hemoglobin is stable and is not a candidate for blood transfusion or iron repletion currently. 06/11/24: Patient was seen and examined by the bedside. No acute overnight events. No fevers overnight. Patient oxygen requirements decreased a little bit, his ABGs showed pH 7.35 slightly improved oxygenation. P:F ratio is 175. Chest Xray showed improvement compared to yesterday. Patient had a urine output of 5.3L, negative balance -4.4L. Cisatracurium is discontinued today, will try to slowly titrate down the sedation. Continues to receive bactrim, zosyn, micafungin. Repeat blood cultures, urine cultures are negative. ETT secretions grew GPC. ID is following patient. 06/12/24: Patient was seen and examined by the bedside. No acute overnight events. No fevers overnight. Patient had an awakening trial today due to his improvement in oxygenation. He was able to continue on spontaneous mode PS for a few hours, but due to agitation he was sedated again, but continued on spontaneous PS. ABGs showed pH 7.48, pCO2 63, pO2 78. PF ratio is 217. Will try awakening trial tomorrow again. Will keep his sedated throughout the night while on AC. Added oral morphine to decrease respiratory distress and sedation, will try to downtitrate propofol. Discontinued fluconazole. 06/13/24: Patient was seen and examined by the bedside. No fevers overnight. Saturates well on FiO2 of 50. Overnight patient was double stacking, pulling hide tidal volume on volume control, received midazolam 2 mg pushes for sedation, was also started on Precedex drip. Will try awakening trial today. Continues to be on morphine drip and oral morphine. In the morning was switched to PS 8, PEEP 10, FiO2 50. Will continue Bactrim and micafungin, length of course 21 days. Continue Zosyn for HAP. Sedation was turned off for awakening trial, patient was able to breath spontaneously, but did not follow commands. He became agitated, was inhaling high VT, BP went up to 180/88, was sedated again. Will switch him back to VC mode overnight. Family was advised to spend time with him. 06/14/24: Patient was seen and examined by the bedside. No fevers overnight. Saturates well on FiO2 of 60. Overnight patient was on PC, RR 14 but was tachypneic, double stacking, pulling high tidal volume, received midazolam 4 mg pushes for sedation, continued to be on Precedex drip and propofol. Continues to be on oral morphine, morphine drip was discontinued. Patient started on SPONT PS in the morning again. Sedation was turned off for awakening trial, patient was able to breath spontaneously, but did not follow commands, does not open his eyes to the speech. He became agitated, was inhaling high VT, was sedated again.Due to his mental status, patient is not a candidate for extubation at the moment. Will switch him back to VC mode overnight. Family was advised to spend time with him, to talk to him and support. His ABGs showed improvement of hypercapnia and respiratory acidosis. Will continue Bactrim and micafungin, length of course 21 days. Continue Zosyn for HAP. 06/15/24: Overnight, the patient was noted to be tachypneic to the 50s on volume control, propofol and dexmedetomine for sedation, had been off of morphine drip. He required 2 pushes of midazolam 4 mg IV, 1 push of morphine 4 mg IV, and a push of ketamine 50 mg. Patient also had fevers up to 102.0 and received acetaminophen overnight. This morning patient continued to have tachypneic episodes to the 40s. Dr. Anderson used bedside Glidescope to visualize placement of ET tube which was in correct positioning and performed small amounts of suctioning. CXR was retaken which showed possible worsening right lower infiltrate. He was placed on 100% FiO2. The patient was ultimately fully sedated and paralyzed again, throughout the day given ketamine 50 mg x1, morphine 5 mg x2, midazolam 4 mg x2, extra pushes of 60 mg propofol, and cisatracurium 20 mg x4. Fentanyl was restarted, oral morphine was stopped. Methadone 5 mg x1 was also given for possible morphine withdrawal. Propofol was uptitrated. Goal for tonight is fentanyl at 150 and propofol at 50 with RASS -5. He received another acetaminophen 1000 mg. 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 Meropenem will also be continued for broad coverage. Second organism is staph haemolyticus which is a commensal organism and per ID no concern for infectious source, regardless linezolid is shown as sensitive for both. Continue with micafungin prophylactically and Bactrim, Solu-Medrol for PCP. New blood cultures and ET cultures sent today. ABGs showed continued severe respiratory acidosis pH 7.03, pCO2 121, pO2 99, HCO3 32, q4h checks are scheduled, and the patient has been placed on bicarb drip and also received 50 mEq sodium bicarb x3 pushes. Patient was proned around 13:00 and will be turned in the morning. Patient was also started on heparin drip for suspected PE. Doppler was not completed due to patient proned position. A right upper quadrant US was also done today due to uptrended Tbili to 1.3 and AST 303, ALT 420, US showed no cholelithiasis and no obvious sign of cholecystitis. 06/17/2024: Patient was seen and examined by the bedside. Overnight he continued to maintain saturation, was put back into supine position in the morning. No fevers overnight, saturates well on 40% FiO2. Continues to be sedated and paralyzed continues to receive Bactrim, micafungin, methylprednisone, meropenem, linezolid. Continues heparin drip. Possible tracheostomy on Thursday. Due to edema of the right upper extremity and vesicles, arterial line was placed on the left arm, consent was given by the decision-maker Francesca. Head CT was negative for stroke, hemorrhage, chest CTA was negative for PE, Doppler ultrasound of upper extremities showed acute DVT in the right subclavian and right axillary vein. Patient was started on heparin drip yesterday continues to receive heparin. ABG showed pH 7.29, pCO2 106, pO2 61, will continue with permissive hypercapnia. Will continue with bicarb and hyperventilation for respiratory acidosis. 06/18/2024: Patient was seen and examined by the bedside. Last evening there was a bleeding from the right femoral central line placed, heparin drip was discontinued. Continues to be sedated and paralyzed. Repeat blood and sputum culture came back negative. Will continue heparin drip and sedation, RASS goal - 4 until the patient will get a tracheostomy. ABG showed pH 7.33, pCO2 86, pO2 77, PF ratio 192. Nimbex was discontinued today. PEEP was decreased to 8. 06/19/2024; Patient was seen and examined by bedside, no acute overnight events reported, remains intubated and mechanically ventilated, vitals stable with mildly elevated BP 150/70, HR 86, CBC/CMP noted for significant improvement in LFTs, and hypophosphatemia, ABG this AM noted for improvement in respiratory acidosis, pCO2 63, pO2 66. Continuing patient on sedation with RAAS goal of -4, will likely delay tracheostomy placement for a few days as patient continues to have high respiratory rate. Continue patient on current regimen of Linezolid for VRE, Bactrim, Micafungin, and Methylprednisolone for PCP, discontinue Meropenem as patient has been afebrile for few days, HAART for HIV. Tube feeding were resumed today for patient as they were previously held during pronation. 06/20/2024: The patient was examined and evaluated at the bedside, no acute overnight events, continues to be intubated and mechanically ventilated, vitals were significant for respiratory rate of 34, CBC at baseline with improving LFTs. Labs significant for hypophosphatemia of 1.4, ABG pH 7.36, pCO2 74, pO2 55, PEEP 8 and FiO2 35. Patient underwent trial of cutting down on sedation by discontinuing fentanyl, did not tolerate well and we will continue on propofol and fentanyl. IV methylprednisone was switched to decreased dose of oral prednisone. We will continue with linezolid for VRE, Bactrim, micafungin and methylprednisone for PCP pneumonia and continue HAART for HIV. We will again attempt a trial of weaning of sedation tomorrow. Exam Vital Signs Temp Pulse Resp BP Pulse Ox O2 Del Method O2 Flow Rate 98.1 F 113 H 30 H 136/61 H 89 L Mechanical Ventilation 40 06/20/24 08:00 06/20/24 12:00 06/19/24 22:10 06/20/24 11:00 06/20/24 11:00 06/20/24 08:00 06/09/24 12:16 FiO2 35 06/20/24 12:00 Narrative Exam GEN: Critically ill, not acutely distressed, sedated and intubated. Neuro: Deferred due to sedation. HEENT: NCAT, trachea midline, moist mucous membranes, ET tube in place, PO tube noted. CVS: RRR, S1S2 present, no M/R/G. No JVD Respi: Mechanically ventilated, b/l breath sounds heard with diffuse rhonchi, no wheezing/crackles. ABD: Soft, no grimace to palpation, bowel sounds present in all 4 quadrants. Skin: warm, dry and intact. Extremities: Pulses 3+ in all extremities, RUE edema, vesicles 1-2 cm on the forearm surface. Objective Labs 06/20/24 05:09 06/20/24 05:09 Labs: Laboratory Results - last 24 hr 06/19/24 06/19/24 06/20/24 13:18 20:39 04:49 WBC RBC Hgb Hct MCV MCH MCHC RDW Std Deviation Plt Count Neut % (Auto) Lymph % (Auto) [place] % (Auto) Eos % (Auto) Baso % (Auto) Neut # (Auto) Lymph # (Auto) [place] # (Auto) Eos # (Auto) Baso # (Auto) Immature Gran # (Auto) Absolute Nucleated RBC Immature Gran % Nucleated RBC % APTT 48.7 H D 87.4 H D Puncture Site Arterial Line ABG pH 7.36 ABG pCO2 74 H* D ABG pO2 55 L* ABG HCO3 42 H ABG O2 Saturation 87 L ABG Base Excess 14 H FiO2 35 Sodium Potassium Chloride Carbon Dioxide Anion Gap BUN Creatinine Estim Creat Clear Calc eGFR BUN/Creatinine Ratio Glucose Calculated Osmolality Calcium Corrected Calcium Phosphorus Magnesium Total Bilirubin AST ALT Alkaline Phosphatase Total Protein Albumin Globulin Albumin/Globulin Ratio 06/20/24 05:09 WBC 8.5 RBC 3.56 L Hgb 8.4 L Hct 27.8 L MCV 78 L MCH 23.6 L MCHC 30.2 L RDW Std Deviation 58.5 H Plt Count 169 Neut % (Auto) 89 H Lymph % (Auto) 3 L [place] % (Auto) 1 Eos % (Auto) 6 Baso % (Auto) 0 Neut # (Auto) 7.6 Lymph # (Auto) 0.2 L [place] # (Auto) 0.1 Eos # (Auto) 0.5 Baso # (Auto) 0.0 Immature Gran # (Auto) 0.04 H Absolute Nucleated RBC 0.02 H Immature Gran % 1 H Nucleated RBC % 0 APTT 59.5 H D Puncture Site ABG pH ABG pCO2 ABG pO2 ABG HCO3 ABG O2 Saturation ABG Base Excess FiO2 Sodium 137 Potassium 4.2 Chloride 96 L Carbon Dioxide 39.3 H Anion Gap 2 L BUN 14 Creatinine 0.5 L Estim Creat Clear Calc 195.7 eGFR > 60 BUN/Creatinine Ratio 28 H Glucose 104 Calculated Osmolality 274 L Calcium 8.7 Corrected Calcium 9.7 Phosphorus 1.4 L Magnesium 1.8 Total Bilirubin 0.4 AST 99 H ALT 123 H Alkaline Phosphatase 118 H Total Protein 5.8 Albumin 2.8 L Globulin 3.0 Albumin/Globulin Ratio 0.9 L ABG Interpretation ABG results: 05/27/24 05/29/24 05/29/24 23:37 10:44 22:08 ABG pH 7.51 H 7.50 H 7.48 H ABG pCO2 28 L 32 32 ABG pO2 75 L 79 L 145 H D ABG HCO3 23 25 24 ABG O2 Saturation 96 95 98 ABG Base Excess 0 2 1 05/30/24 05/31/24 06/04/24 08:45 04:54 02:10 ABG pH 7.47 H 7.45 7.45 ABG pCO2 35 38 36 ABG pO2 86 D 82 L 139 H ABG HCO3 26 26 25 ABG O2 Saturation 97 96 98 ABG Base Excess 2 2 1 06/04/24 06/05/24 06/05/24 18:16 11:36 12:59 ABG pH 7.44 7.11 L* D 7.20 L ABG pCO2 36 94 H* D 68 H D ABG pO2 80 L D 150 H D 121 H D ABG HCO3 24 30 H 26 ABG O2 Saturation 94 97 97 ABG Base Excess 0 -2 -3 06/05/24 06/06/24 06/06/24 19:25 04:13 15:27 ABG pH 7.22 L 7.27 L 7.30 L ABG pCO2 64 H 57 H 60 H ABG pO2 122 H 153 H D 74 L D ABG HCO3 26 26 29 H ABG O2 Saturation 97 99 H 92 ABG Base Excess -3 -2 2 06/07/24 06/07/24 06/08/24 03:55 09:59 04:20 ABG pH 7.41 D 7.43 7.45 ABG pCO2 56 H 55 H 50 H ABG pO2 293 H D 78 L D 75 L ABG HCO3 36 H 37 H 35 H ABG O2 Saturation 99 H 95 94 ABG Base Excess 10 H 11 H 10 H 06/08/24 06/08/24 06/08/24 11:05 11:50 13:18 ABG pH 7.17 L* D 7.10 L* 7.15 L* ABG pCO2 95 H* D 115 H* D 88 H* D ABG pO2 89 75 L 72 L ABG HCO3 34 H 36 H 31 H ABG O2 Saturation 92 84 L 85 L ABG Base Excess 3 4 H 0 06/08/24 06/09/24 06/09/24 17:02 01:33 03:15 ABG pH 7.18 L* 7.22 L 7.27 L ABG pCO2 50 H D 91 H* D 82 H* ABG pO2 82 L 105 D 86 ABG HCO3 19 L 37 H 38 H ABG O2 Saturation 93 97 95 ABG Base Excess -9 L 7 H 9 H 06/09/24 06/09/24 06/10/24 05:08 12:52 04:40 ABG pH 7.31 L 7.33 L 7.30 L ABG pCO2 75 H* 57 H D 78 H* D ABG pO2 97 158 H D 65 L D ABG HCO3 38 H 30 H 38 H ABG O2 Saturation 97 99 H 90 L ABG Base Excess 10 H 3 9 H 06/10/24 06/11/24 06/12/24 09:40 04:19 04:15 ABG pH 7.27 L 7.35 7.48 H D ABG pCO2 88 H* D 86 H* 63 H D ABG pO2 65 L 70 L 76 L ABG HCO3 40 H 48 H 47 H ABG O2 Saturation 89 L 93 95 ABG Base Excess 10 H 19 H 21 H 06/13/24 06/14/24 06/15/24 07:22 04:32 03:45 ABG pH 7.46 H 7.48 H 7.46 H ABG pCO2 56 H 40 D 37 ABG pO2 80 L 64 L 71 L ABG HCO3 39 H 30 H 27 H ABG O2 Saturation 95 92 94 ABG Base Excess 13 H 6 H 3 06/15/24 06/15/24 06/15/24 10:17 12:20 14:20 ABG pH 7.01 L* D 7.00 L* 7.03 L* ABG pCO2 122 H* D 130 H* 125 H* ABG pO2 91 D 88 82 L ABG HCO3 31 H 32 H 33 H ABG O2 Saturation 88 L 88 L 87 L ABG Base Excess -3 -2 -1 06/15/24 06/15/24 06/16/24 15:55 20:39 00:35 ABG pH 7.03 L* 7.08 L* 7.10 L* ABG pCO2 121 H* 116 H* 118 H* ABG pO2 99 117 H 102 ABG HCO3 32 H 34 H 37 H ABG O2 Saturation 93 97 96 ABG Base Excess -1 2 4 H 06/16/24 06/16/24 06/17/24 04:45 08:55 05:06 ABG pH 7.17 L* 7.28 L D 7.33 L ABG pCO2 112 H* 88 H* D 96 H* ABG pO2 155 H D 98 D 126 H D ABG HCO3 41 H 41 H 50 H ABG O2 Saturation 99 H 98 99 H ABG Base Excess 9 H 12 H 21 H 06/17/24 06/17/24 06/18/24 10:58 13:55 04:16 ABG pH 7.29 L 7.29 L 7.33 L ABG pCO2 106 H* D 106 H* 86 H* D ABG pO2 58 L* D 61 L 77 L ABG HCO3 51 H 51 H 45 H ABG O2 Saturation 87 L 88 L 95 ABG Base Excess 21 H 21 H 17 H 06/19/24 06/20/24 04:18 04:49 ABG pH 7.42 7.36 ABG pCO2 63 H D 74 H* D ABG pO2 66 L 55 L* ABG HCO3 41 H 42 H ABG O2 Saturation 93 87 L ABG Base Excess 15 H 14 H Quality Measures Quality Measures sepsis Current suspected stage: sepsis Possible source: pulmonary, GI tract/intra-abdominal, genitourinary and skin/soft tissue Blood cultures ordered: yes Antibiotic ordered: Yes Assessment & Plan Assessment Current Active Medications: Generic Name Dose Route Start Last Admin Trade Name Freq PRN Reason Stop Dose Admin Acetaminophen 975 mg 06/09/24 14:27 06/15/24 02:56 Acetaminophen Munira 325 Mg/10 Ml Udc PO 06/26/24 12:10 975 mg Q6H PRN Administration Pain 1-3 and Fever >101.5 Albuterol/Ipratropium 3 ml 06/05/24 11:40 06/09/24 22:18 Albuterol/Ipratropium (Duoneb) Rt Munira 3 Ml Nebu INH 07/05/24 14:59 3 ml Q4HRRT PRN Administration Wheezing Artificial Tears 1 drop 06/18/24 12:00 06/20/24 12:53 Artificial Tears 225 Drop/15 Ml Btl BOTH EYES 07/18/24 11:59 1 drop QID JUAN JOSE Administration Bisacodyl 5 mg 06/14/24 17:15 06/20/24 08:37 Bisacodyl 5 Mg Tabec PO 07/14/24 17:14 Not Given QDAY JUAN JOSE Protocol Dextrose 25 ml 06/06/24 08:20 Dextrose 50%-Water Inj 50 Ml Syringe IV 07/06/24 08:19 Q15MIN PRN BG 50-70 responsive npo pt Dextrose 50 ml 06/06/24 08:20 Dextrose 50%-Water Inj 50 Ml Syringe IV 07/06/24 08:19 Q15MIN PRN BG <50 OR BG <70 & pt unresponsive Emtricitabine/Tenofovir 1 tab 06/16/24 12:30 06/20/24 08:42 Emtricitabine 200 Mg/Tenofovir 300 Mg Tab (Non-Form) PO 07/16/24 12:29 1 tab QDAY JUAN JOSE Administration Glucagon 1 mg 06/06/24 08:20 Glucagon Inj 1 Mg Vial IM Q15MIN PRN BG <70, and no IV access Micafungin Sodium 100 mg/ 100 mls @ 100 mls/hr 06/09/24 09:00 06/20/24 09:28 Sodium Chloride IV 06/24/24 08:59 100 mls/hr QDAY JUAN JOSE Administration Linezolid 600 mg in 300 mls @ 300 mls/hr 06/15/24 11:31 06/20/24 08:42 Zyvox Ivpb IV 06/22/24 11:30 300 mls/hr Q12HR JUAN JOSE Administration Heparin Sodium/Dextrose 25,000 unit in 250 mls @ 13.608 mls/hr 06/15/24 14:45 06/19/24 22:00 Heparin In D5w Ivpb IV 06/29/24 14:44 22 units/kg/hr .[id number] JUAN JOSE 16.632 mls/hr Administration Protocol 18 UNITS/KG/HR Midazolam HCl 100 mg in 100 mls @ 1 mls/hr 06/18/24 11:14 06/20/24 12:00 Versed Pf Inj In Ns Premix IV 06/23/24 11:13 1 mg/hr .Q24H PRN 1 mls/hr PER PROTOCOL Titration Protocol 1 MG/HR Propofol 1,000 mg in 100 mls @ 2.487 mls/hr 06/18/24 12:17 06/20/24 12:15 Diprivan Ivpb IV 07/09/24 14:25 20 mcg/kg/min .Q24H PRN 9.948 mls/hr PER PROTOCOL Titration Protocol 5 MCG/KG/MIN Sodium Phosphate 30 mmol/ 510 mls @ 62.5 mls/hr 06/20/24 08:30 06/20/24 08:42 Sodium Chloride IV 06/20/24 16:39 62.5 mls/hr X1 ONE Administration Ondansetron HCl 4 mg 05/29/24 21:51 06/04/24 17:44 Ondansetron Inj 2 Mg/Ml Inj 2 Ml IV 06/28/24 21:50 4 mg Q6HR PRN Administration NAUSEA OR VOMITING Protocol Pantoprazole Sodium 40 mg 06/06/24 09:00 06/20/24 08:42 Pantoprazole Inj 40 Mg Vial IVP 07/06/24 08:59 40 mg QDAY JUAN JOSE Administration Patiromer 8.4 gm 06/09/24 10:45 06/20/24 08:43 Patiromer Calcium 8.4 Gm Packet (Non-Form) NG 07/09/24 10:44 8.4 gm QDAY JUAN JOSE Administration Polyethylene Glycol 17 gm 06/14/24 17:15 06/20/24 08:37 Polyethylene Glycol 17 Gm Packet PO 07/14/24 17:14 Not Given QDAY JUAN JOSE Prednisone 20 mg 06/21/24 09:00 Prednisone 20 Mg Tablet PO 07/21/24 08:59 QDAY JUAN JOSE Quetiapine Fumarate 25 mg 06/13/24 21:00 06/19/24 20:45 Quetiapine Fumarate 25 Mg Tablet PO 07/13/24 20:59 25 mg HS JUAN JOSE Administration Raltegravir 400 mg 06/16/24 12:30 06/20/24 09:27 Raltegravir 100 Mg Chew (Non-Form) NG 06/23/24 12:29 400 mg BID JUAN JOSE Administration Sennosides 1 tab 06/11/24 09:00 06/20/24 08:37 Senna Tablet PO 07/11/24 08:59 Not Given QDAY [facility] Protocol Trimethoprim/Sulfamethoxazole 40 ml 06/15/24 06:00 06/20/24 12:52 Trimethoprim 40 Mg/Sulfa 200 Mg Susp 5 Ml PO 06/22/24 05:59 40 ml QID [facility] Administration Plan 39-year-old male patient with no PMHx who initially presented to [facility] 05[facility] with a chief complaint of shortness of breath and cough, with associated chills, body aches, generalized weakness, fever, and night sweats beginning weeks prior but progressively worsening over a few days. ED work-up revealed extensive bilateral diffuse infiltrate, patient met 4/4 SIRS, was requiring 4L O2, and was subsequently admitted for acute hypoxic respiratory failure secondary to bilateral community-acquired pneumonia of unknown etiology. Procal was only slightly elevated at 0.61 and he was first empirically treated with levofloxacin from 05/27-05/29 for suspicion of atypical pneumonia and fluconazole for cocci coverage. Patient quickly progressed to requiring Hi-Flow oxygen and had multiple rapid response alerts for increasing oxygen requirements and recurrent fevers. He was monitored in ICU from 05/30- 05/31, at that time started on steroids and antibiotics were escalated to azithromycin, doxycycline, and Zosyn as well as high dose steroids. He seemed to have improved and was downgraded at that time without needing intubation. ID and Pulmonology were consulted, and the patient was started on Bactrim to cover pneumocystis pneumonia. Several tests which had been sent were negative, including Cocci IgM and IgG, Legionella, and all blood, urine, sputum cultures had been negative at that point. HIV test was reported to be a preliminary positive, and sent out for confirmation studies but result had significant delay. Patient had reported a single sexual partner with his fiance for the last 5 years, last contact few weeks before admission, and denied IV drug usage. He did endorse 1 pack per day smoking history since teenage years, and occasional alcohol and marijuana. He had tattoos done as a young teenager, none recent. He had history of temporary incarceration. After the downgrade, patient developed worsening dyspnea on movement, desaturation, and complaints of work of breathing despite Hi-Flow at 100% FiO2. He was upgraded to ICU again on 06/05 for intubation and bronchoscopy, which showed normal-appearing mucosa, and BAL sample was sent for culture and cytology. Patient was given paralysis and managed with vent settings for ARDS. At this point, autoimmune studies including Rh factor, DANIEL, ANCA, Anti-proteinase 3, Anti-myeloperoxidase, Complement C3/C4c all returned negative. Absolute CD4 count was low at 116. On 06/07, in light of still unconfirmed diagnosis and critical status, patient's named [id number] and decision-maker, sister Francesca, was asked to bring forward any other additional history about patient's substance use, particularly any vape pens or supplements/substances he may have used to investigate for possible Vape-Associated Lung Injury. Sister brought in patient's bag of belongings from home containing vials of trenbolone (anabolic steroid) and testosterone and needles, which sister reports may have been purchased from [facility]. There were additional male enhancement supplements, synthetic urine kit, marijuana wax pen, and cigarette boxes. 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 On 06/08, HIV viral load came back at 5,660,000 copies. HIV 1 antibody was positive. HIV 2 negative. On 06/09, patient was started on antiretrovirals, Truvada and raltegravir. Patient also started having significant hyperkalemia, requiring multiple pushes of insulin, calcium gluconate, and kayexylate, eventually needing dialysis on 06/06, 06/08, and 06/09. Suspected Bactrim adverse effect, Bactrim was continued however to treat PCP. Patient has continued on mechanical ventilation. While he initially succeeded at weaning to spontaneous mode with Pressure Support of 8, FiO2 40% on sedation, it has been a challenge to wean sedation off successfully. Patient would become increasingly tachypneic, with work of breathing and desaturation, and has been unable have sedation low enough to follow commands, eye track, or make purposeful movements. On 06/15, patient had spiked fevers, WBC worsened, and patient had tachypneia again with worsening respiratory acidosis. Patient was proned. PE was suspected and heparin drip was started. ET sputum culture from 06/09 grew VRE enterococcus casseliflavus therefore linezolid and meropenem was started, Zosyn was discontinued. Patient is planned for tracheostomy on 06/21/2024 (Day 17 of intubation) if unable to wean from the vent. 06/20/2024: The patient was examined and evaluated at the bedside, no acute overnight events, continues to be intubated and mechanically ventilated, vitals were significant for respiratory rate of 34, CBC at baseline with improving LFTs. Labs significant for hypophosphatemia of 1.4, ABG pH 7.36, pCO2 74, pO2 55, PEEP 8 and FiO2 35. Patient underwent trial of cutting down on sedation by discontinuing fentanyl, did not tolerate well and we will continue on propofol and fentanyl. IV methylprednisone was switched to decreased dose of oral prednisone. We will continue with linezolid for VRE, Bactrim, micafungin and methylprednisone for PCP pneumonia and continue HAART for HIV. We will again attempt a trial of weaning of sedation tomorrow. NEURO #Acute encephalopathy, secondary to prolonged sedation 06/05/2024 Patient was intubated, sedated, and paralyzed for ARDS. Prior to intubation, patient was awake, alert, and oriented x3, following commands, conversational. Initially, fentanyl was discontinued 06/09 as a sedative due to concern for tachyphylaxis, restarted 06/15 Morphine drip (given in place of fentanyl) was discontinued 06/14 Cisatracurium to target 2/4 ToF twitches, discontinued Plan: -Goal sedation: RASS -4, as he did not tolerated decreasing the sedation -Fentanyl at 200 mcg/hr -Propofol at 5 mcg/kg/min -Midazolam 4 mg IV prn for breakthrough agitation #Fever---Resolved 06/15 Fever overnight with spike at 102.0, acetaminophen 975 mg given with resolution of fever. Possible new ventilator-associated infection? Plan: -Acetaminophen as needed CARDIO #Right upper extremity DVT. -Doppler US right upper extremity 06/17/24: revealed RUE DVT -On Heparin Drip #Sinus tachycardia---Resolved. Tachycardia most likely secondary to respiratory distress and agitation. 06/15: Possible new sepsis? Patient with new fevers, increased tachypneia. Low threshold of suspicion for PE, therefore heparin drip was started 06/15. Plan: -Continuous telemetry -Continue sedation with RASS goal -4 for now -CTPA negative for PE 06/16/24 #Septic shock, resolved Secondary to severe extensive bilateral pneumonia. Patient was on norepinephrine 06/06-06/10. Currently off pressors. 06/06/2024 Echo was read EF 55-60% 06/09/2024 Blood cultures negative 06/09/2024 Urine culture negative 06/09/2024 ET culture POSITIVE for Staph haemolyticus, Entercoccus casseliflavus vancomycin-resistant PULM #Acute hypoxic respiratory failure Secondary to #Bilateral pneumocystis jirovecii pneumonia #Healthcare associated pneumonia #Ventilator associated pneumonia Patient presented with dyspnea and cough, requiring 4L NC on first ED evaluation, and history of chills, body aches, generalized weakness, fever, and night sweats progressively worsening over the prior weeks. Approx 20-pack year smoking history, occasional marijuana. 05/27/2024 Received ceftriaxone/azithromycin in ED. Started on levofloxacin as an inpatient. 05/28/2024 Started on fluconazole (discontinued 06/12). Started requiring Hi- Flow. 05/30/2024 Upgraded to ICU for close monitoring. Started on doxycycline. Started on azithromycin (completed 5-days). Started on Zosyn (discontinued 06/15). Started Solu-Medrol. 06/01/2024 Downgraded. Started on Bactrim (discontinued doxy). 06/05/2024 Intubation of the patient, return to ICU. Suspected ARDS. Bronchoscopy showed normal-appearing mucosa and no mucous plugging, hemorrhage, or friability bilaterally. Bronchoalveolar washings culture were negative for growth. Fungal cultures are pending. 06/07/2024 Bronchoalveolar lavage cytology shows Pneumocystis jirovecii. Also other fungi, possibly Kassandra. Kassandra is most likely a contaminant. Blood opsa-[id number] also positive. 06/08/2024 HIV quant 5.66 million copies. HIV 1 positive confirmed. Patient was proned due to desaturation event. 06/09/2024 Started on prophylactic micafungin. Started Truvada and raltegravir HAART. Patient's decision-maker, sister Francesca informed of HIV+ and diagnosis. 06/14/2024 ETT sputum cultures from 06/09 positive for Staphylococcus hemolyticus, ID stated that this is not a respiratory pathogen, no need to treat. 06/15/2024 Above #2 pathogen showed vancomycin-resistant enterococcus casseliflavus, started linezolid. Zosyn stopped and meropenem started. 06/15/2024 Increased tachypnea, vent overbreathing, paralyzed and proned. 06/17/2024 oxygenation and hypercapnia improved, was put in supine position, continued to be paralyzed. 06/18/2024 paralytic was discontinued, the plan is to continue with sedation until the tracheostomy placement, possible tracheostomy on 06/21/24 Plan: -Ventilation on volume control, saturation to be maintained >90%, PEEP at 8, RR 30, FiO2 at 35% wean if tolerated -Continue Bactrim 06/01/24 - to be continued through 06/21 for 21 days of treatment -Discontinued Zosyn 05/30/24-06/15/24 -Started meropenem 1000 mg q8h 06/15/24-Discontinued 06/19/24 -Started linezolid 600 mg q12h 06/15/24- -Continue micafungin 100 mg qday 06/09/24- -Fungal cultures from BAL pending -DuoNebs q4h as needed -New blood cultures sent 06/15?negative for growth -New ET culture sent 06/15?negative for growth #ARDS Patient continues to have increased oxygen demands with worsening bilateral infiltrates on CXR. Will maintain ARDS ventilation protocol. 06/08/24 P:F ratio 89/1=89. Severe ARDS. 06/09/24 P:F ratio 97/55=293. Moderate ARDS. 06/10/24 P:F ratio 65/98=913 06/11/24 P:F ratio 70/51=524 06/12/24 P:F ratio 217 06/13/24 P:F ratio 160 06/15/24 P:F ratio 91, ABGs showing pH in the 7.00s, elevated pCO2 110-120s. 06/20/24: P:F ratio 151, moderate ARDS Plan: -VC overnight, maintain PEEP 8, FiO2 to maintain saturation 92% -Maintain peak plateau <30 -Follow up ABG -Methylprednisolone 40 mg switched to Prednisone 20mg qday. GI Prophylaxis: Pantoprazole 40 mg IV qday #Elevated LFTs, improving Likely due to propofol and bactrim. Mildly elevated, liver US 05/30/2024 showed normal gallbladder and hepatomegaly without lesions or evidence of obstructions. Hep panel negative. LFTs downtrended compared to 06/06/24. 06/15/2024 Floyd in LFTs with AST 303, ALT 420, Tbili 1.3, therefore right upper quadrant US ordered, negative for cholecystitis/cholelithiasis, hepatitis panel negative. No obvious changes on physical exam. 06/20/24: LFT AST/ALT/ALP : 99/123/118 Plan: -Continue monitoring NEPHRO #Hypophosphatemia #WILL, resolved #Mild hyponatremia---Resolved #Hyperkalemia---Resolved #Hyperphosphatemia, resolved Ddx: Prerenal WILL due to hypotension vs possible rhabdomyolysis vs drug toxicity (zosyn, vancomycin, bactrim) Unlikely rhabdomyolysis, CK was 511 06/06, did not uptrend. Urine output is >100 ml/hr, urine is yellow and clear. Possible underlying SIADH. Potassium 06/11/24 4.4. Plan: -Continue Veltassa 8.4 gm qday for potassium chelation -Nephrology Dr. Song is following for as-needed dialysis due to hyperkalemia -Continue free water at 40 ml/hr -Maintain euvolemia -Monitor CMP, especially potassium -Replete electrolytes as needed. #Primary respiratory acidosis compensated by metabolic alkalosis ABGs are showing acidemia with elevation of pCO2, indicative of primary respiratory acidosis. There is an underlying metabolic alkalosis due to the given bicarb being greater than the expected compensatory bicarb. pH 7.36, pCO2 74. pO2 55 Plan: -Patient was given 150 mEq bicarb in pushes x3 throughout the day 06/15 for acidemia -Bicarb drip was discontinued 06/17 -Follow-up lactate was normal -As per Pulm URO #No active problems -Tijerina placed 06/05/2024 for strict I&O monitoring HEME #Leukocytosis, resolved Fluctuating WBC. In the setting of likely infection, inflammation, and corticosteroids. Plan: -Treatment of pneumonia as above #Microcytic anemia Stable, has not required any transfusions this admission thus far. Clinically no evidence of bleeding. Iron panel shows iron 17, TIBC 262, iron saturation 6, unsaturated iron binding 245. Peripheral blood film confirms microcytic hypochromic anemia with target cells. Also daily lab draws contributing. Plan: -Monitor H&H. Transfusing for Hgb <7 #Thrombocytosis, resolved Likely reactive. -Continue to monitor ENDO #No active problems -Blood glucose on chemistry panels in acceptable range ID #Bilateral pneumocystis pneumonia #Healthcare associated pneumonia #Ventilator associated pneumonia Negative studies: Cocci IgM and IgG, Hepatitis panel, Syphilis, Legionella, H.flu, N.meningitidis, Strep B, Strep pneumoniae, COVID, RSV, Flu A & B. TB quantiferon GOLD-indeterminate, however 06/05 AFB negative, CMV IgM, cryptococcal antigen negative. G6PD levels came back normal for consideration of dapsone alternative to Bactrim if needed. Patient completed 5 day course of azithromycin, 16 days of Zosyn. See Pulm for timeline of antimicrobial coverage. Plan: -Continue Bactrim 06/01/24 - to be continued through 06/21 for 21 days of treatment -Discontinued Zosyn 05/30/24-06/15/24 -Discontinued meropenem as patient has been afebrile since 06/15 -continue linezolid 600 mg q12h 06/15/24- -Continue micafungin 100 mg qday 06/09/24- -Fungal cultures from BAL pending -New blood cultures sent 06/15?negative for growth -New ET culture sent 06/15?negative for growth #AIDS/HIV Patient has Stage 4 HIV, AIDS-defining illness with opportunistic infection. 06/07/2024 Bronchoalveolar lavage cytology shows Pneumocystis jirovecii. Also other fungi, possibly Kassandra. Kassandra is most likely a contaminant. Blood emas-[id number]-[id number] also positive. 06/08/2024 HIV quant 5.66 million copies. HIV 1 positive confirmed. 06/09/2024 Patient's decision maker, Francesca, was informed of diagnosis due to critical state of patient. Absolute CD4 count 87 and 22% on 06/02. History/risk factors: History of injection anabolic androgenic steroid and testosterone use, possible unclean needles. History of incarceration (unknown time). Tattoos received as a teenager. Has 1 female sexual partner last 5 years, denies others. -Continue HAART: emtricitabine / tenofovir (Truvada) and raltegravir initiated 06/09/24 -Patient is not aware of his diagnosis as he has been intubated and sedated before results returned. Will require complete education and counseling on the disease if his mental status and clinical condition improves. MSK #Elevated creatine kinase Checked CK due to acute WILL, however now resolved. Unlikely to be rhabdo, patient producing adequate clear urine. Most likely elevated due to paralytic use and bedbound status. 06/06 511 06/08 206 06/10 220 Plan: -Continue to monitor urine output and kidney function SKIN #No active problems DVT prophylaxis: Lovenox 40 subQ qday GI prophylaxis: Pantoprazole 40 mg IV qday Diet: Tube feeds Nepro Tijerina: Present (06/05- ) Lines: Peripheral IV, radial arterial line. Antibiotics: Bactrim, linelozid, micafungin CODE STATUS: FULL CODE Reason for ICU care: Acute hypoxic respiratory failure secondary to bilateral pneumonia/ARDS Patient plan of care was discussed with the attending physician, Dr. Price. Jeff Pacheco MD, PGY2
--- NOTE | 2024-06-20 15:13 | PC.SS ---
Update: Patient remains intubated/sedated. OG tube in place for feedings. Rectal tube and ackerman catheter in place. Blisters on right arm. Trach/PEG placement pending.
[2024-06-20] MEDS: Heparin/D5w 25K 250 ML Ivpb 25,000 UNIT/250 ML BAG 16.632 UNIT IV (16:19)
[2024-06-20] MEDS: PROPOFOL 1,000 MG IVPB 1,000 MG/100 ML VIAL 24.87 MG IV ×2 (16:20→20:22)
[2024-06-20] MEDS: fentaNYL 2,500 MCG/250 ML BAG 2,500 MCG/250 ML BAG 20 MCG IV (17:57)
[2024-06-20] MEDS: QUEtiapine FUMARATE 25 MG TABLET PO (20:38)
[2024-06-21] VITALS (32 sets, daily range): BP systolic 98–143; BP diastolic 41–109; PULSE 77–107; RESP 0–37; TEMP 36.6–37.2; O2SAT 91–99
[2024-06-21] MEDS: PROPOFOL 1,000 MG IVPB 1,000 MG/100 ML VIAL 24.87 MG IV ×4 (01:22→16:06)
[2024-06-21 04:19] LABS: Base Excess 16 (-3-3); HCO3 42 mEq/L (20-26); Inspired Oxygen, FIO2 50 %; O2 Saturation 100 % (91-98); PCO2 61 mmHg (32.0-48.0); PO2 202 mmHg (83-108); pH, Arterial 7.44 (7.35-7.45)
[2024-06-21 04:24] LABS: Allen Test Not Performed; Puncture Site Arterial Line
[2024-06-21] MEDS: fentaNYL 2,500 MCG/250 ML BAG 2,500 MCG/250 ML BAG 20 MCG IV ×2 (05:12→18:07)
[2024-06-21 05:56] LABS: Basophils % (Auto) 0 % (0-2.5); Eosinophils # (Auto) 0.9 Thou/mm3 (0.0-0.5); Eosinophils % (Auto) 15 % (0-10); Hematocrit 25.9 % (41.0-53.0); Immature Granulocytes % (Auto) 1 % (0-0); Immature Granulocytes Auto 0.06 Thou/mm3 (0.00-0.00); Lymphocytes # (Auto) 0.2 Thou/mm3 (1.0-4.8); Lymphocytes % (Auto) 3 % (10-50); Mean Corpuscular HGB Conc 31.3 g/dl (31.0-37.0); Mean Corpuscular Hemoglobin 24.1 pg (25.0-35.0); Mean Corpuscular Volume 77 fL (80-100); Monocytes # (Auto) 0.1 Thou/mm3 (0.0-0.8); Monocytes % (Auto) 1 % (0-12); Neutrophils % (Auto) 80 % (37-80); Nucleated Red Blood Cell # 0.03 Thou/mm3 (0.00-0.00); Nucleated Red Blood Cell % 1 /100 WBC (0); Platelet Count 155 Thou/mm3 (140-440); RDW Standard Deviation 55.5 fL (35.1-43.9); Red Blood Count 3.36 Miln/mm3 (4.50-5.90); White Blood Count 6.2 Thou/mm3 (3.8-10.6)
[2024-06-21] MEDS: TRIMETHOPRIM PO ×4 (05:57→20:59)
[2024-06-21] MEDS: SULFA PO ×4 (05:57→20:59)
[2024-06-21] MEDS: Artificial Tears 225 DROP/15 ML BTL BOTH EYES ×4 (05:57→20:59)
[2024-06-21 05:59] LABS: Hemoglobin 8.1 g/dL (13.5-16.0)
[2024-06-21 06:51] LABS: Alanine Aminotransferase 118 U/L (10-49); Albumin, Serum 2.9 gm/dL (3.5-5.0); Albumin/Globulin Ratio 1.1 (1.2-2.2); Alkaline Phosphatase 143 U/L (46-116); Anion Gap 2 (7-16); Aspartate Amino Transferase 103 U/L (0-34); BUN/Creatinine Ratio 24 Ratio (12-20); Bilirubin,Total 0.4 mg/dL (0.3-1.2); Blood Urea Nitrogen 12 mg/dL (9-23); Calcium 7.9 mg/dL (8.3-10.6); Calcium (Corrected) 8.8 mg/dL (8.5-10.1); Carbon Dioxide 39.2 mMol/L (20.0-31.0); Chloride 91 mMol/L (98-107); Creatinine (Component) 0.5 mg/dL (0.6-1.3); Estimated Creatinine Clearance 195.7 mL/min (>60); Globulin 2.6 gm/dL (2.3-3.5); Glucose 96 mg/dL (74-106); Magnesium 1.4 mg/dL (1.6-2.6); Osmolality,Calculated 264 (275-295); Phosphorous 1.7 mg/dL (2.4-5.1); Sodium 132 mMol/L (136-145); Total Protein 5.5 gm/dL (5.7-8.2); eGFR > 60 See Note
[2024-06-21 07:06] LABS: Partial Thromboplastin Time 50.2 Seconds (22.0-36.0)
[2024-06-21] MEDS: LINEZOLID 600 MG IVPB 600 MG/300 ML BAG 300 MG IV ×2 (08:48→20:57)
[2024-06-21] MEDS: Magnesium Sulfate 4 GM Ivpb 4 GM/50 ML BAG IV (08:48)
[2024-06-21] MEDS: PANTOPRAZOLE INJ 40 MG VIAL IVP (08:48)
[2024-06-21] MEDS: MICAFUNGIN SODIUM INJ 100 MG in SODIUM CHLORIDE 0.9% 100 ML IV (08:58)
[2024-06-21] MEDS: Heparin/D5w 25K 250 ML Ivpb 25,000 UNIT/250 ML BAG 16.632 UNIT IV (09:03)
[2024-06-21] MEDS: SOD PHOS ADDITIVE IV (09:23)
[2024-06-21] MEDS: SODIUM CHLORIDE 0.9% IV (09:23)
--- NOTE | 2024-06-21 10:59 | ESPR_ITS ---
Documentation for date of: 06/21/24 Subjective Subjective Interval history: Patient seen and examined. Sedated and intubated. No acute events overnight. Exam Vital Signs Temp Pulse Resp BP Pulse Ox O2 Del Method O2 Flow Rate 98.9 F 95 32 H 112/49 L 93 L Mechanical Ventilation 40 06/21/24 07:00 06/21/24 10:21 06/21/24 06:21 06/21/24 10:21 06/21/24 10:21 06/21/24 10:00 06/09/24 12:16 FiO2 50 06/21/24 10:21 Narrative Exam GEN: Critically ill, not acutely distressed, sedated and intubated. Neuro: Deferred due to sedation. HEENT: NCAT, trachea midline, moist mucous membranes, ET tube in place, PO tube noted. CVS: RRR, S1S2 present, no M/R/G. No JVD Respi: Mechanically ventilated, b/l breath sounds heard with diffuse rhonchi, no wheezing/crackles. ABD: Soft, no grimace to palpation, bowel sounds present in all 4 quadrants. Skin: warm, dry and intact. Extremities: Pulses 3+ in all extremities, RUE edema, vesicles 1-2 cm on the forearm surface. Objective Labs 06/22/24 04:47 06/22/24 04:47 Labs: Laboratory Results - last 24 hr 06/21/24 06/21/24 04:06 05:40 WBC 6.2 RBC 3.36 L Hgb 8.1 L Hct 25.9 L MCV 77 L MCH 24.1 L MCHC 31.3 RDW Std Deviation 55.5 H Plt Count 155 Neut % (Auto) 80 Lymph % (Auto) 3 L [place] % (Auto) 1 Eos % (Auto) 15 H Baso % (Auto) 0 Neut # (Auto) 5.0 Lymph # (Auto) 0.2 L [place] # (Auto) 0.1 Eos # (Auto) 0.9 H Baso # (Auto) 0.0 Immature Gran # (Auto) 0.06 H Absolute Nucleated RBC 0.03 H Immature Gran % 1 H Nucleated RBC % 1 H APTT 50.2 H Puncture Site Arterial Line ABG pH 7.44 ABG pCO2 61 H D ABG pO2 202 H D ABG HCO3 42 H ABG O2 Saturation 100 H ABG Base Excess 16 H FiO2 50 Sodium 132 L Potassium 4.0 Chloride 91 L Carbon Dioxide 39.2 H Anion Gap 2 L BUN 12 Creatinine 0.5 L Estim Creat Clear Calc 195.7 eGFR > 60 BUN/Creatinine Ratio 24 H Glucose 96 Calculated Osmolality 264 L Lactic Acid 1.0 Calcium 7.9 L Corrected Calcium 8.8 Phosphorus 1.7 L Magnesium 1.4 L Total Bilirubin 0.4 AST 103 H ALT 118 H Alkaline Phosphatase 143 H D Total Protein 5.5 L Albumin 2.9 L Globulin 2.6 Albumin/Globulin Ratio 1.1 L ABG Interpretation ABG results: 05/27/24 05/29/24 05/29/24 23:37 10:44 22:08 ABG pH 7.51 H 7.50 H 7.48 H ABG pCO2 28 L 32 32 ABG pO2 75 L 79 L 145 H D ABG HCO3 23 25 24 ABG O2 Saturation 96 95 98 ABG Base Excess 0 2 1 05/30/24 05/31/24 06/04/24 08:45 04:54 02:10 ABG pH 7.47 H 7.45 7.45 ABG pCO2 35 38 36 ABG pO2 86 D 82 L 139 H ABG HCO3 26 26 25 ABG O2 Saturation 97 96 98 ABG Base Excess 2 2 1 06/04/24 06/05/24 06/05/24 18:16 11:36 12:59 ABG pH 7.44 7.11 L* D 7.20 L ABG pCO2 36 94 H* D 68 H D ABG pO2 80 L D 150 H D 121 H D ABG HCO3 24 30 H 26 ABG O2 Saturation 94 97 97 ABG Base Excess 0 -2 -3 06/05/24 06/06/24 06/06/24 19:25 04:13 15:27 ABG pH 7.22 L 7.27 L 7.30 L ABG pCO2 64 H 57 H 60 H ABG pO2 122 H 153 H D 74 L D ABG HCO3 26 26 29 H ABG O2 Saturation 97 99 H 92 ABG Base Excess -3 -2 2 06/07/24 06/07/24 06/08/24 03:55 09:59 04:20 ABG pH 7.41 D 7.43 7.45 ABG pCO2 56 H 55 H 50 H ABG pO2 293 H D 78 L D 75 L ABG HCO3 36 H 37 H 35 H ABG O2 Saturation 99 H 95 94 ABG Base Excess 10 H 11 H 10 H 06/08/24 06/08/24 06/08/24 11:05 11:50 13:18 ABG pH 7.17 L* D 7.10 L* 7.15 L* ABG pCO2 95 H* D 115 H* D 88 H* D ABG pO2 89 75 L 72 L ABG HCO3 34 H 36 H 31 H ABG O2 Saturation 92 84 L 85 L ABG Base Excess 3 4 H 0 06/08/24 06/09/24 06/09/24 17:02 01:33 03:15 ABG pH 7.18 L* 7.22 L 7.27 L ABG pCO2 50 H D 91 H* D 82 H* ABG pO2 82 L 105 D 86 ABG HCO3 19 L 37 H 38 H ABG O2 Saturation 93 97 95 ABG Base Excess -9 L 7 H 9 H 06/09/24 06/09/24 06/10/24 05:08 12:52 04:40 ABG pH 7.31 L 7.33 L 7.30 L ABG pCO2 75 H* 57 H D 78 H* D ABG pO2 97 158 H D 65 L D ABG HCO3 38 H 30 H 38 H ABG O2 Saturation 97 99 H 90 L ABG Base Excess 10 H 3 9 H 06/10/24 06/11/24 06/12/24 09:40 04:19 04:15 ABG pH 7.27 L 7.35 7.48 H D ABG pCO2 88 H* D 86 H* 63 H D ABG pO2 65 L 70 L 76 L ABG HCO3 40 H 48 H 47 H ABG O2 Saturation 89 L 93 95 ABG Base Excess 10 H 19 H 21 H 06/13/24 06/14/24 06/15/24 07:22 04:32 03:45 ABG pH 7.46 H 7.48 H 7.46 H ABG pCO2 56 H 40 D 37 ABG pO2 80 L 64 L 71 L ABG HCO3 39 H 30 H 27 H ABG O2 Saturation 95 92 94 ABG Base Excess 13 H 6 H 3 06/15/24 06/15/24 06/15/24 10:17 12:20 14:20 ABG pH 7.01 L* D 7.00 L* 7.03 L* ABG pCO2 122 H* D 130 H* 125 H* ABG pO2 91 D 88 82 L ABG HCO3 31 H 32 H 33 H ABG O2 Saturation 88 L 88 L 87 L ABG Base Excess -3 -2 -1 06/15/24 06/15/24 06/16/24 15:55 20:39 00:35 ABG pH 7.03 L* 7.08 L* 7.10 L* ABG pCO2 121 H* 116 H* 118 H* ABG pO2 99 117 H 102 ABG HCO3 32 H 34 H 37 H ABG O2 Saturation 93 97 96 ABG Base Excess -1 2 4 H 06/16/24 06/16/24 06/17/24 04:45 08:55 05:06 ABG pH 7.17 L* 7.28 L D 7.33 L ABG pCO2 112 H* 88 H* D 96 H* ABG pO2 155 H D 98 D 126 H D ABG HCO3 41 H 41 H 50 H ABG O2 Saturation 99 H 98 99 H ABG Base Excess 9 H 12 H 21 H 06/17/24 06/17/24 06/18/24 10:58 13:55 04:16 ABG pH 7.29 L 7.29 L 7.33 L ABG pCO2 106 H* D 106 H* 86 H* D ABG pO2 58 L* D 61 L 77 L ABG HCO3 51 H 51 H 45 H ABG O2 Saturation 87 L 88 L 95 ABG Base Excess 21 H 21 H 17 H 06/19/24 06/20/24 06/21/24 04:18 04:49 04:06 ABG pH 7.42 7.36 7.44 ABG pCO2 63 H D 74 H* D 61 H D ABG pO2 66 L 55 L* 202 H D ABG HCO3 41 H 42 H 42 H ABG O2 Saturation 93 87 L 100 H ABG Base Excess 15 H 14 H 16 H Quality Measures Quality Measures sepsis Current suspected stage: ruled out Possible source: pulmonary, GI tract/intra-abdominal, genitourinary and skin/soft tissue Blood cultures ordered: yes Antibiotic ordered: Yes Assessment & Plan Assessment Current Active Medications: Generic Name Dose Route Start Last Admin Trade Name Freq PRN Reason Stop Dose Admin Acetaminophen 975 mg 06/09/24 14:27 06/15/24 02:56 Acetaminophen Munira 325 Mg/10 Ml Udc PO 06/26/24 12:10 975 mg Q6H PRN Administration Pain 1-3 and Fever >101.5 Albuterol/Ipratropium 3 ml 06/05/24 11:40 06/09/24 22:18 Albuterol/Ipratropium (Duoneb) Rt Munira 3 Ml Nebu INH 07/05/24 14:59 3 ml Q4HRRT PRN Administration Wheezing Artificial Tears 1 drop 06/18/24 12:00 06/21/24 05:57 Artificial Tears 225 Drop/15 Ml Btl BOTH EYES 07/18/24 11:59 1 drop QID JUAN JOSE Administration Bisacodyl 5 mg 06/14/24 17:15 06/20/24 08:37 Bisacodyl 5 Mg Tabec PO 07/14/24 17:14 Not Given QDAY JUAN JOSE Protocol Dextrose 25 ml 06/06/24 08:20 Dextrose 50%-Water Inj 50 Ml Syringe IV 07/06/24 08:19 Q15MIN PRN BG 50-70 responsive npo pt Dextrose 50 ml 06/06/24 08:20 Dextrose 50%-Water Inj 50 Ml Syringe IV 07/06/24 08:19 Q15MIN PRN BG <50 OR BG <70 & pt unresponsive Emtricitabine/Tenofovir 1 tab 06/16/24 12:30 06/20/24 08:42 Emtricitabine 200 Mg/Tenofovir 300 Mg Tab (Non-Form) PO 07/16/24 12:29 1 tab QDAY JUAN JOSE Administration Glucagon 1 mg 06/06/24 08:20 Glucagon Inj 1 Mg Vial IM Q15MIN PRN BG <70, and no IV access Micafungin Sodium 100 mg/ 100 mls @ 100 mls/hr 06/09/24 09:00 06/21/24 10:00 Sodium Chloride IV 06/24/24 08:59 Infused QDAY JUAN JOSE Infusion Linezolid 600 mg in 300 mls @ 300 mls/hr 06/15/24 11:31 06/21/24 09:48 Zyvox Ivpb IV 06/22/24 11:30 Infused Q12HR JUAN JOSE Infusion Heparin Sodium/Dextrose 25,000 unit in 250 mls @ 13.608 mls/hr 06/15/24 14:45 06/21/24 09:03 Heparin In D5w Ivpb IV 06/29/24 14:44 22 units/kg/hr .[id number] JUAN JOSE 16.632 mls/hr Administration Protocol 18 UNITS/KG/HR Midazolam HCl 100 mg in 100 mls @ 1 mls/hr 06/18/24 11:14 06/21/24 06:00 Versed Pf Inj In Ns Premix IV 06/23/24 11:13 1 mg/hr .Q24H PRN 1 mls/hr PER PROTOCOL Titration Protocol 1 MG/HR Propofol 1,000 mg in 100 mls @ 2.487 mls/hr 06/18/24 12:17 06/21/24 09:00 Diprivan Ivpb IV 07/09/24 14:25 50 mcg/kg/min .Q24H PRN 24.87 mls/hr PER PROTOCOL Titration Protocol 5 MCG/KG/MIN Fentanyl Citrate 2,500 mcg in 250 mls @ 20 mls/hr 06/20/24 07:00 06/21/24 10:00 Sublimaze Inj 2,500 Mcg/250 Ml Bag IV 06/25/24 06:59 200 mcg/hr .[id number] PRN 20 mls/hr PER PROTOCOL Titration Protocol 200 MCG/HR Magnesium Sulfate 4 gm in 50 mls @ 12.5 mls/hr 06/21/24 07:29 06/21/24 08:48 Magnesium Sulfate Ivpb IV 06/21/24 11:28 12.5 mls/hr X1 ONE Administration Sodium Phosphate 30 mmol/ 260 mls @ 31.863 mls/hr 06/21/24 08:19 06/21/24 09:23 Sodium Chloride IV 06/21/24 16:28 31.863 mls/hr X1 ONE Administration Ondansetron HCl 4 mg 05/29/24 21:51 06/04/24 17:44 Ondansetron Inj 2 Mg/Ml Inj 2 Ml IV 06/28/24 21:50 4 mg Q6HR PRN Administration NAUSEA OR VOMITING Protocol Pantoprazole Sodium 40 mg 06/06/24 09:00 06/21/24 08:48 Pantoprazole Inj 40 Mg Vial IVP 07/06/24 08:59 40 mg QDAY JUAN JOSE Administration Patiromer 8.4 gm 06/09/24 10:45 06/20/24 08:43 Patiromer Calcium 8.4 Gm Packet (Non-Form) NG 07/09/24 10:44 8.4 gm QDAY JUAN JOSE Administration Polyethylene Glycol 17 gm 06/14/24 17:15 06/20/24 08:37 Polyethylene Glycol 17 Gm Packet PO 07/14/24 17:14 Not Given QDAY JUAN JOSE Prednisone 20 mg 06/21/24 09:00 Prednisone 20 Mg Tablet PO 07/21/24 08:59 QDAY JUAN JOSE Quetiapine Fumarate 25 mg 06/13/24 21:00 06/20/24 20:38 Quetiapine Fumarate 25 Mg Tablet PO 07/13/24 20:59 25 mg HS JUAN JOSE Administration Raltegravir 400 mg 06/16/24 12:30 06/20/24 20:38 Raltegravir 100 Mg Chew (Non-Form) NG 06/23/24 12:29 400 mg BID JUAN JOSE Administration Sennosides 1 tab 06/11/24 09:00 06/20/24 08:37 Senna Tablet PO 07/11/24 08:59 Not Given QDAY JUAN JOSE Protocol Trimethoprim/Sulfamethoxazole 40 ml 06/15/24 06:00 06/21/24 05:57 Trimethoprim 40 Mg/Sulfa 200 Mg Susp 5 Ml PO 06/22/24 05:59 40 ml QID JUAN JOSE Administration Plan #Acute respiratory acidosis, primary #Metabolic alkalosis, secondary #Hypophoshatemia #Hypomagnesemia #Hyperkalemia, resolved Likely 2/2 to lung injury (increased Vd) due to severe ARDS 2/2 PJP in the setting of AIDS ABG 7.44/61/202/42 bicarb 39.2, phos low, low mag, K normal good UOP Plan: -cont vent settings -Kphos x1 and mag x1 given -veltassa -monior electrolytes, UOP - Patient's care was discussed with my attending physician, Dr. Duncan Awan MD Internal Medicine PGY-3 Attending Provider Attestation/Addendum Agree with assessment and plan and findings. Seen and examined. labs reviewed. Plan discussed with resident. Teo Song MD
[2024-06-21] MEDS: NAPH,KPH MBDB 1 PACKET (1.5 GM) GT (11:35)
[2024-06-21] MEDS: bisacodyL 5 MG TABEC PO (11:35)
[2024-06-21] MEDS: PATIROMER CALCIUM 8.4 GM PACKET (NON-FORM) NG (11:36)
[2024-06-21] MEDS: predniSONE 20 MG TABLET PO (11:36)
[2024-06-21] MEDS: POLYETHYLENE GLYCOL 17 GM PACKET PO (11:36)
[2024-06-21] MEDS: SENNA TABLET 1 TAB PO (11:36)
[2024-06-21] MEDS: EMTRICITABINE 200 MG/TENOFOVIR 300 MG TAB (NON-FORM) 1 TAB PO (11:40)
[2024-06-21] MEDS: [UNRECOGNIZED DRUG - REMARK] 400 MG NG ×2 (11:40→20:57)
--- NOTE | 2024-06-21 12:55 | PD.SURCONS ---
HPI Consult details Consult date: 06/21/24 Reason for consultation narrative: Tracheostomy History of present illness: 39-year-old male with advanced HIV was admitted with shortness of breath. Patient has been in the intensive care unit ventilator dependent for approximately 2 weeks. He has not been able to be weaned off the ventilator. In anticipation for prolonged need for ventilator support, patient will require tracheostomy Review of Systems Review of Systems ROS Unobtainable: unobtainable due to endotracheal tube Meds Home Medications and Allergies Home Medications ?Medication ?Instructions ?Recorded ?Confirmed ?Type No Known Home Medications 05/29/24 05/29/24 History Allergies Allergy/AdvReac Type Severity Reaction Status Date / Time No Known Allergies Allergy Verified 05/27/24 07:57 Exam Vital Signs Temp Pulse Resp BP Pulse Ox O2 Del Method O2 Flow Rate 98.9 F 93 32 H 121/57 L 96 Mechanical Ventilation 40 06/21/24 07:00 06/21/24 11:00 06/21/24 06:21 06/21/24 11:00 06/21/24 11:00 06/21/24 11:00 06/09/24 12:16 FiO2 40 06/21/24 12:00 Constitutional Constitutional: no acute distress Comments: intubated and sedated Routine Neck Exam Neck: Present supple and trachea midline Assessment & Plan Problem List (1) Acute respiratory failure with hypoxia: Status: Acute Plan Will plan for tracheostomy tomorrow or depending on OR availability. Risks include but not limited to infection, bleeding, injury to surround neurovascular structures, tracheoinnominate fistula, need for further procedure and or operation discussed with patient's family and all their questions answered. They voiced understanding and agreed to proceed with the operation.
[2024-06-21 13:30] LABS: Phosphorous 2.2 mg/dL (2.4-5.1)
[2024-06-21] MEDS: clonazePAM 0.5 MG TABLET 1 MG GT ×2 (18:05→21:00)
[2024-06-21] MEDS: oxyCODONE HCL 5 MG IR TAB 10 MG GT ×2 (18:05→21:00)
--- NOTE | 2024-06-21 18:05 | ESPR_ITS ---
<Statement entered by Emely Price MD - 06/22/24 08:14> TOTAL TIME: 45MINUTES ON DIRECT MEDICAL CARE, MANAGEMENT - COORDINATION AND COUNSELING > 50% OF TOTAL TIME I saw and evaluated the patient. I reviewed the resident?s note and agree with findings and plan as documented in the resident?s note. No new complications, continues to be difficult to wean from sedation, enteral sedation added including phenobarbital oxycodone and Klonopin to help wean IV high dose sedation. Follow-up triglycerides given that he has been on propofol for an extended duration of time. I spoke to the surgeon Dr. Ryan who will be scheduling tracheostomy. Family is aware Reduced tidal volume back to baseline, unsure why overnight tidal volumes were adjusted. Plateau pressure remains in acceptable range Documentation for date of: 06/21/24 Subjective Subjective Interval history: 06/10/24: Patient is doing better today with ABG for this morning revealing a CO2 of 78 and a pH of 7.30. We are allowing for permissive hypercapnia and O2 65. Revealing PA/FiO2 ratio of 147. Overnight sedation was changed from fentanyl to morphine we will continue to titrate up morphine based on his hemodynamic stability. Patient became hypertensive and we suspect he requires more sedation so we will increase morphine. We will continue with paralytic use for 1 more day and discontinue tomorrow after 3 total days of paralytics. Patient's vancomycin was discontinued by infectious disease due to the fact that he remains on Bactrim. Dr Hope did suggest ordering a G6PD test to assess for G6PD deficiency in case we do switch to dapsone. Continuing with Bactrim, micafungin, and Zosyn. Transaminitis is continuing to improve and patient remains on Nepro with tube feeds at 40 cc an hour with low amounts of residuals. Last bowel movement was noted to be June 08 and he is receiving GI prophylaxis with Protonix. Hyperkalemia this morning appear to have been resolved with most recent potassium noted at 4.6. We will repeat another potassium at 2 PM to see if patient will require further hemodialysis but we will also initiate Lasix 40 mg IV push twice daily for diuresis in hopes that that will contribute to decreasing his hyperkalemia and help improve his potassium. Continues to remain anemic with iron deficiency anemia but hemoglobin is stable and is not a candidate for blood transfusion or iron repletion currently. 06/11/24: Patient was seen and examined by the bedside. No acute overnight events. No fevers overnight. Patient oxygen requirements decreased a little bit, his ABGs showed pH 7.35 slightly improved oxygenation. P:F ratio is 175. Chest Xray showed improvement compared to yesterday. Patient had a urine output of 5.3L, negative balance -4.4L. Cisatracurium is discontinued today, will try to slowly titrate down the sedation. Continues to receive bactrim, zosyn, micafungin. Repeat blood cultures, urine cultures are negative. ETT secretions grew GPC. ID is following patient. 06/12/24: Patient was seen and examined by the bedside. No acute overnight events. No fevers overnight. Patient had an awakening trial today due to his improvement in oxygenation. He was able to continue on spontaneous mode PS for a few hours, but due to agitation he was sedated again, but continued on spontaneous PS. ABGs showed pH 7.48, pCO2 63, pO2 78. PF ratio is 217. Will try awakening trial tomorrow again. Will keep his sedated throughout the night while on AC. Added oral morphine to decrease respiratory distress and sedation, will try to downtitrate propofol. Discontinued fluconazole. 06/13/24: Patient was seen and examined by the bedside. No fevers overnight. Saturates well on FiO2 of 50. Overnight patient was double stacking, pulling hide tidal volume on volume control, received midazolam 2 mg pushes for sedation, was also started on Precedex drip. Will try awakening trial today. Continues to be on morphine drip and oral morphine. In the morning was switched to PS 8, PEEP 10, FiO2 50. Will continue Bactrim and micafungin, length of course 21 days. Continue Zosyn for HAP. Sedation was turned off for awakening trial, patient was able to breath spontaneously, but did not follow commands. He became agitated, was inhaling high VT, BP went up to 180/88, was sedated again. Will switch him back to VC mode overnight. Family was advised to spend time with him. 06/14/24: Patient was seen and examined by the bedside. No fevers overnight. Saturates well on FiO2 of 60. Overnight patient was on PC, RR 14 but was tachypneic, double stacking, pulling high tidal volume, received midazolam 4 mg pushes for sedation, continued to be on Precedex drip and propofol. Continues to be on oral morphine, morphine drip was discontinued. Patient started on SPONT PS in the morning again. Sedation was turned off for awakening trial, patient was able to breath spontaneously, but did not follow commands, does not open his eyes to the speech. He became agitated, was inhaling high VT, was sedated again.Due to his mental status, patient is not a candidate for extubation at the moment. Will switch him back to VC mode overnight. Family was advised to spend time with him, to talk to him and support. His ABGs showed improvement of hypercapnia and respiratory acidosis. Will continue Bactrim and micafungin, length of course 21 days. Continue Zosyn for HAP. 06/15/24: Overnight, the patient was noted to be tachypneic to the 50s on volume control, propofol and dexmedetomine for sedation, had been off of morphine drip. He required 2 pushes of midazolam 4 mg IV, 1 push of morphine 4 mg IV, and a push of ketamine 50 mg. Patient also had fevers up to 102.0 and received acetaminophen overnight. This morning patient continued to have tachypneic episodes to the 40s. Dr. Anderson used bedside Glidescope to visualize placement of ET tube which was in correct positioning and performed small amounts of suctioning. CXR was retaken which showed possible worsening right lower infiltrate. He was placed on 100% FiO2. The patient was ultimately fully sedated and paralyzed again, throughout the day given ketamine 50 mg x1, morphine 5 mg x2, midazolam 4 mg x2, extra pushes of 60 mg propofol, and cisatracurium 20 mg x4. Fentanyl was restarted, oral morphine was stopped. Methadone 5 mg x1 was also given for possible morphine withdrawal. Propofol was uptitrated. Goal for tonight is fentanyl at 150 and propofol at 50 with RASS -5. He received another acetaminophen 1000 mg. 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 Meropenem will also be continued for broad coverage. Second organism is staph haemolyticus which is a commensal organism and per ID no concern for infectious source, regardless linezolid is shown as sensitive for both. Continue with micafungin prophylactically and Bactrim, Solu-Medrol for PCP. New blood cultures and ET cultures sent today. ABGs showed continued severe respiratory acidosis pH 7.03, pCO2 121, pO2 99, HCO3 32, q4h checks are scheduled, and the patient has been placed on bicarb drip and also received 50 mEq sodium bicarb x3 pushes. Patient was proned around 13:00 and will be turned in the morning. Patient was also started on heparin drip for suspected PE. Doppler was not completed due to patient proned position. A right upper quadrant US was also done today due to uptrended Tbili to 1.3 and AST 303, ALT 420, US showed no cholelithiasis and no obvious sign of cholecystitis. 06/17/2024: Patient was seen and examined by the bedside. Overnight he continued to maintain saturation, was put back into supine position in the morning. No fevers overnight, saturates well on 40% FiO2. Continues to be sedated and paralyzed continues to receive Bactrim, micafungin, methylprednisone, meropenem, linezolid. Continues heparin drip. Possible tracheostomy on Thursday. Due to edema of the right upper extremity and vesicles, arterial line was placed on the left arm, consent was given by the decision-maker Francesca. Head CT was negative for stroke, hemorrhage, chest CTA was negative for PE, Doppler ultrasound of upper extremities showed acute DVT in the right subclavian and right axillary vein. Patient was started on heparin drip yesterday continues to receive heparin. ABG showed pH 7.29, pCO2 106, pO2 61, will continue with permissive hypercapnia. Will continue with bicarb and hyperventilation for respiratory acidosis. 06/18/2024: Patient was seen and examined by the bedside. Last evening there was a bleeding from the right femoral central line placed, heparin drip was discontinued. Continues to be sedated and paralyzed. Repeat blood and sputum culture came back negative. Will continue heparin drip and sedation, RASS goal - 4 until the patient will get a tracheostomy. ABG showed pH 7.33, pCO2 86, pO2 77, PF ratio 192. Nimbex was discontinued today. PEEP was decreased to 8. 06/19/2024; Patient was seen and examined by bedside, no acute overnight events reported, remains intubated and mechanically ventilated, vitals stable with mildly elevated BP 150/70, HR 86, CBC/CMP noted for significant improvement in LFTs, and hypophosphatemia, ABG this AM noted for improvement in respiratory acidosis, pCO2 63, pO2 66. Continuing patient on sedation with RAAS goal of -4, will likely delay tracheostomy placement for a few days as patient continues to have high respiratory rate. Continue patient on current regimen of Linezolid for VRE, Bactrim, Micafungin, and Methylprednisolone for PCP, discontinue Meropenem as patient has been afebrile for few days, HAART for HIV. Tube feeding were resumed today for patient as they were previously held during pronation. 06/20/2024: The patient was examined and evaluated at the bedside, no acute overnight events, continues to be intubated and mechanically ventilated, vitals were significant for respiratory rate of 34, CBC at baseline with improving LFTs. Labs significant for hypophosphatemia of 1.4, ABG pH 7.36, pCO2 74, pO2 55, PEEP 8 and FiO2 35. Patient underwent trial of cutting down on sedation by discontinuing fentanyl, did not tolerate well and we will continue on propofol and fentanyl. IV methylprednisone was switched to decreased dose of oral prednisone. We will continue with linezolid for VRE, Bactrim, micafungin and methylprednisone for PCP pneumonia and continue HAART for HIV. We will again attempt a trial of weaning of sedation tomorrow. 06/21/2024: The patient was examined and evaluated at the bedside. No acute overnight events, continues to be intubated and mechanically ventilated, vitals still significant for RR 34-35, CBC at baseline with improving LFT. ABG revealed improvement on pCO2 and pO2. Chemistry panel with sodium 132, phosphorus 2.2 which were repleted. Overnight, ventilator setting was changed and tidal volume was increased to 450, FiO2 increased to 50. This morning, we reverted back tidal volume to 400 cc and FiO2 to 40%. We started the patient on internal sedatives with phenobarbital 60 Mg 3 times daily, clonazepam 1 Mg 3 times daily and oxycodone 10 Mg 3 times daily to decrease from IV sedation, as previous attempt to wean off IV sedation were unsuccessful. General surgeon Dr. Ryan was consulted, who will perform tracheostomy on 06/23/2024. Exam Vital Signs Temp Pulse Resp BP Pulse Ox O2 Del Method O2 Flow Rate 98.6 F 81 35 H 113/62 99 Mechanical Ventilation 40 06/21/24 16:00 06/21/24 17:00 06/21/24 17:00 06/21/24 17:00 06/21/24 17:00 06/21/24 17:00 06/09/24 12:16 FiO2 40 06/21/24 17:00 Narrative Exam GEN: Critically ill, not acutely distressed, sedated and intubated. Neuro: Deferred due to sedation. HEENT: NCAT, trachea midline, moist mucous membranes, ET tube in place, PO tube noted. CVS: RRR, S1S2 present, no M/R/G. No JVD Respi: Mechanically ventilated, b/l breath sounds heard with diffuse rhonchi, no wheezing/crackles. ABD: Soft, no grimace to palpation, bowel sounds present in all 4 quadrants. Skin: warm, dry and intact. Extremities: Pulses 2+ in all extremities, RUE edema, vesicles 1-2 cm on the forearm surface. Objective Labs 06/21/24 05:40 06/21/24 05:40 Labs: Laboratory Results - last 24 hr 06/21/24 06/21/24 06/21/24 04:06 05:40 12:56 WBC 6.2 RBC 3.36 L Hgb 8.1 L Hct 25.9 L MCV 77 L MCH 24.1 L MCHC 31.3 RDW Std Deviation 55.5 H Plt Count 155 Neut % (Auto) 80 Lymph % (Auto) 3 L [place] % (Auto) 1 Eos % (Auto) 15 H Baso % (Auto) 0 Neut # (Auto) 5.0 Lymph # (Auto) 0.2 L [place] # (Auto) 0.1 Eos # (Auto) 0.9 H Baso # (Auto) 0.0 Immature Gran # (Auto) 0.06 H Absolute Nucleated RBC 0.03 H Immature Gran % 1 H Nucleated RBC % 1 H APTT 50.2 H Puncture Site Arterial Line ABG pH 7.44 ABG pCO2 61 H D ABG pO2 202 H D ABG HCO3 42 H ABG O2 Saturation 100 H ABG Base Excess 16 H FiO2 50 Sodium 132 L Potassium 4.0 Chloride 91 L Carbon Dioxide 39.2 H Anion Gap 2 L BUN 12 Creatinine 0.5 L Estim Creat Clear Calc 195.7 eGFR > 60 BUN/Creatinine Ratio 24 H Glucose 96 Calculated Osmolality 264 L Lactic Acid 1.0 Calcium 7.9 L Corrected Calcium 8.8 Phosphorus 1.7 L 2.2 L Magnesium 1.4 L 2.0 Total Bilirubin 0.4 AST 103 H ALT 118 H Alkaline Phosphatase 143 H D Total Protein 5.5 L Albumin 2.9 L Globulin 2.6 Albumin/Globulin Ratio 1.1 L ABG Interpretation ABG results: 05/27/24 05/29/24 05/29/24 23:37 10:44 22:08 ABG pH 7.51 H 7.50 H 7.48 H ABG pCO2 28 L 32 32 ABG pO2 75 L 79 L 145 H D ABG HCO3 23 25 24 ABG O2 Saturation 96 95 98 ABG Base Excess 0 2 1 05/30/24 05/31/24 06/04/24 08:45 04:54 02:10 ABG pH 7.47 H 7.45 7.45 ABG pCO2 35 38 36 ABG pO2 86 D 82 L 139 H ABG HCO3 26 26 25 ABG O2 Saturation 97 96 98 ABG Base Excess 2 2 1 06/04/24 06/05/24 06/05/24 18:16 11:36 12:59 ABG pH 7.44 7.11 L* D 7.20 L ABG pCO2 36 94 H* D 68 H D ABG pO2 80 L D 150 H D 121 H D ABG HCO3 24 30 H 26 ABG O2 Saturation 94 97 97 ABG Base Excess 0 -2 -3 06/05/24 06/06/24 06/06/24 19:25 04:13 15:27 ABG pH 7.22 L 7.27 L 7.30 L ABG pCO2 64 H 57 H 60 H ABG pO2 122 H 153 H D 74 L D ABG HCO3 26 26 29 H ABG O2 Saturation 97 99 H 92 ABG Base Excess -3 -2 2 06/07/24 06/07/24 06/08/24 03:55 09:59 04:20 ABG pH 7.41 D 7.43 7.45 ABG pCO2 56 H 55 H 50 H ABG pO2 293 H D 78 L D 75 L ABG HCO3 36 H 37 H 35 H ABG O2 Saturation 99 H 95 94 ABG Base Excess 10 H 11 H 10 H 06/08/24 06/08/24 06/08/24 11:05 11:50 13:18 ABG pH 7.17 L* D 7.10 L* 7.15 L* ABG pCO2 95 H* D 115 H* D 88 H* D ABG pO2 89 75 L 72 L ABG HCO3 34 H 36 H 31 H ABG O2 Saturation 92 84 L 85 L ABG Base Excess 3 4 H 0 06/08/24 06/09/24 06/09/24 17:02 01:33 03:15 ABG pH 7.18 L* 7.22 L 7.27 L ABG pCO2 50 H D 91 H* D 82 H* ABG pO2 82 L 105 D 86 ABG HCO3 19 L 37 H 38 H ABG O2 Saturation 93 97 95 ABG Base Excess -9 L 7 H 9 H 06/09/24 06/09/24 06/10/24 05:08 12:52 04:40 ABG pH 7.31 L 7.33 L 7.30 L ABG pCO2 75 H* 57 H D 78 H* D ABG pO2 97 158 H D 65 L D ABG HCO3 38 H 30 H 38 H ABG O2 Saturation 97 99 H 90 L ABG Base Excess 10 H 3 9 H 06/10/24 06/11/24 06/12/24 09:40 04:19 04:15 ABG pH 7.27 L 7.35 7.48 H D ABG pCO2 88 H* D 86 H* 63 H D ABG pO2 65 L 70 L 76 L ABG HCO3 40 H 48 H 47 H ABG O2 Saturation 89 L 93 95 ABG Base Excess 10 H 19 H 21 H 06/13/24 06/14/24 06/15/24 07:22 04:32 03:45 ABG pH 7.46 H 7.48 H 7.46 H ABG pCO2 56 H 40 D 37 ABG pO2 80 L 64 L 71 L ABG HCO3 39 H 30 H 27 H ABG O2 Saturation 95 92 94 ABG Base Excess 13 H 6 H 3 06/15/24 06/15/24 06/15/24 10:17 12:20 14:20 ABG pH 7.01 L* D 7.00 L* 7.03 L* ABG pCO2 122 H* D 130 H* 125 H* ABG pO2 91 D 88 82 L ABG HCO3 31 H 32 H 33 H ABG O2 Saturation 88 L 88 L 87 L ABG Base Excess -3 -2 -1 06/15/24 06/15/24 06/16/24 15:55 20:39 00:35 ABG pH 7.03 L* 7.08 L* 7.10 L* ABG pCO2 121 H* 116 H* 118 H* ABG pO2 99 117 H 102 ABG HCO3 32 H 34 H 37 H ABG O2 Saturation 93 97 96 ABG Base Excess -1 2 4 H 06/16/24 06/16/24 06/17/24 04:45 08:55 05:06 ABG pH 7.17 L* 7.28 L D 7.33 L ABG pCO2 112 H* 88 H* D 96 H* ABG pO2 155 H D 98 D 126 H D ABG HCO3 41 H 41 H 50 H ABG O2 Saturation 99 H 98 99 H ABG Base Excess 9 H 12 H 21 H 06/17/24 06/17/24 06/18/24 10:58 13:55 04:16 ABG pH 7.29 L 7.29 L 7.33 L ABG pCO2 106 H* D 106 H* 86 H* D ABG pO2 58 L* D 61 L 77 L ABG HCO3 51 H 51 H 45 H ABG O2 Saturation 87 L 88 L 95 ABG Base Excess 21 H 21 H 17 H 06/19/24 06/20/24 06/21/24 04:18 04:49 04:06 ABG pH 7.42 7.36 7.44 ABG pCO2 63 H D 74 H* D 61 H D ABG pO2 66 L 55 L* 202 H D ABG HCO3 41 H 42 H 42 H ABG O2 Saturation 93 87 L 100 H ABG Base Excess 15 H 14 H 16 H Quality Measures Quality Measures sepsis Current suspected stage: sepsis Possible source: pulmonary, GI tract/intra-abdominal, genitourinary and skin/soft tissue Blood cultures ordered: yes Antibiotic ordered: Yes Assessment & Plan Assessment Current Active Medications: Generic Name Dose Route Start Last Admin Trade Name Freq PRN Reason Stop Dose Admin Acetaminophen 975 mg 06/09/24 14:27 06/15/24 02:56 Acetaminophen Munira 325 Mg/10 Ml Udc PO 06/26/24 12:10 975 mg Q6H PRN Administration Pain 1-3 and Fever >101.5 Albuterol/Ipratropium 3 ml 06/05/24 11:40 06/09/24 22:18 Albuterol/Ipratropium (Duoneb) Rt Munira 3 Ml Nebu INH 07/05/24 14:59 3 ml Q4HRRT PRN Administration Wheezing Artificial Tears 1 drop 06/18/24 12:00 06/21/24 17:07 Artificial Tears 225 Drop/15 Ml Btl BOTH EYES 07/18/24 11:59 1 drop QID JUAN JOSE Administration Bisacodyl 5 mg 06/14/24 17:15 06/21/24 11:35 Bisacodyl 5 Mg Tabec PO 07/14/24 17:14 5 mg QDAY JUAN JOSE Administration Protocol Clonazepam 1 mg 06/21/24 18:00 Clonazepam 0.5 Mg Tablet GT 06/26/24 17:59 TID JUAN JOSE Dextrose 25 ml 06/06/24 08:20 Dextrose 50%-Water Inj 50 Ml Syringe IV 07/06/24 08:19 Q15MIN PRN BG 50-70 responsive npo pt Dextrose 50 ml 06/06/24 08:20 Dextrose 50%-Water Inj 50 Ml Syringe IV 07/06/24 08:19 Q15MIN PRN BG <50 OR BG <70 & pt unresponsive Docusate Sodium 100 mg 06/21/24 21:00 Docusate Sod 100 Mg Capsule PO 07/21/24 20:59 BID JUAN JOSE Protocol Emtricitabine/Tenofovir 1 tab 06/16/24 12:30 06/21/24 11:40 Emtricitabine 200 Mg/Tenofovir 300 Mg Tab (Non-Form) PO 07/16/24 12:29 1 tab QDAY JUAN JOSE Administration Glucagon 1 mg 06/06/24 08:20 Glucagon Inj 1 Mg Vial IM Q15MIN PRN BG <70, and no IV access Micafungin Sodium 100 mg/ 100 mls @ 100 mls/hr 06/09/24 09:00 06/21/24 10:00 Sodium Chloride IV 06/24/24 08:59 Infused QDAY JUAN JOSE Infusion Linezolid 600 mg in 300 mls @ 300 mls/hr 06/15/24 11:31 06/21/24 09:48 Zyvox Ivpb IV 06/22/24 11:30 Infused Q12HR JUAN JOSE Infusion Heparin Sodium/Dextrose 25,000 unit in 250 mls @ 13.608 mls/hr 06/15/24 14:45 06/21/24 09:03 Heparin In D5w Ivpb IV 06/29/24 14:44 22 units/kg/hr .[id number] JUAN JOSE 16.632 mls/hr Administration Protocol 18 UNITS/KG/HR Midazolam HCl 100 mg in 100 mls @ 1 mls/hr 06/18/24 11:14 06/21/24 17:12 Versed Pf Inj In Ns Premix IV 06/23/24 11:13 1 mg/hr .Q24H PRN 1 mls/hr PER PROTOCOL Titration Protocol 1 MG/HR Propofol 1,000 mg in 100 mls @ 2.487 mls/hr 06/18/24 12:17 06/21/24 17:13 Diprivan Ivpb IV 07/09/24 14:25 50 mcg/kg/min .Q24H PRN 24.87 mls/hr PER PROTOCOL Titration Protocol 5 MCG/KG/MIN Fentanyl Citrate 2,500 mcg in 250 mls @ 20 mls/hr 06/20/24 07:00 06/21/24 17:00 Sublimaze Inj 2,500 Mcg/250 Ml Bag IV 06/25/24 06:59 200 mcg/hr .[id number] PRN 20 mls/hr PER PROTOCOL Titration Protocol 200 MCG/HR Ondansetron HCl 4 mg 05/29/24 21:51 06/04/24 17:44 Ondansetron Inj 2 Mg/Ml Inj 2 Ml IV 06/28/24 21:50 4 mg Q6HR PRN Administration NAUSEA OR VOMITING Protocol Oxycodone HCl 10 mg 06/21/24 18:00 Oxycodone Hcl 5 Mg Ir Tab GT 06/26/24 17:59 TID JUAN JOSE Pantoprazole Sodium 40 mg 06/06/24 09:00 06/21/24 08:48 Pantoprazole Inj 40 Mg Vial IVP 07/06/24 08:59 40 mg QDAY JUAN JOSE Administration Patiromer 8.4 gm 06/09/24 10:45 06/21/24 11:36 Patiromer Calcium 8.4 Gm Packet (Non-Form) NG 07/09/24 10:44 8.4 gm QDAY JUAN JOSE Administration Phenobarbital 60 mg 06/21/24 18:00 Phenobarbital Elix 20 Mg/5 Ml Udc GT 07/05/24 17:59 TID JUAN JOSE Polyethylene Glycol 17 gm 06/14/24 17:15 06/21/24 11:36 Polyethylene Glycol 17 Gm Packet PO 07/14/24 17:14 17 gm QDAY JUAN JOSE Administration Prednisone 20 mg 06/21/24 09:00 06/21/24 11:36 Prednisone 20 Mg Tablet PO 07/21/24 08:59 20 mg QDAY JUAN JOSE Administration Quetiapine Fumarate 25 mg 06/13/24 21:00 06/20/24 20:38 Quetiapine Fumarate 25 Mg Tablet PO 07/13/24 20:59 25 mg HS JUAN JOSE Administration Raltegravir 400 mg 06/16/24 12:30 06/21/24 11:40 Raltegravir 100 Mg Chew (Non-Form) NG 06/23/24 12:29 400 mg BID JUAN JOSE Administration Sennosides 1 tab 06/11/24 09:00 06/21/24 11:36 Senna Tablet PO 07/11/24 08:59 1 tab QDAY JUAN JOSE Administration Protocol Trimethoprim/Sulfamethoxazole 40 ml 06/15/24 06:00 06/21/24 17:07 Trimethoprim 40 Mg/Sulfa 200 Mg Susp 5 Ml PO 06/22/24 05:59 40 ml QID JUAN JOSE Administration Plan 39-year-old male patient with no PMHx who initially presented to [facility] on 05/[facility] with a chief complaint of shortness of breath and cough, with associated chills, body aches, generalized weakness, fever, and night sweats beginning weeks prior but progressively worsening over a few days. ED work-up revealed extensive bilateral diffuse infiltrate, patient met 4/4 SIRS, was requiring 4L O2, and was subsequently admitted for acute hypoxic respiratory failure secondary to bilateral community-acquired pneumonia of unknown etiology. Procal was only slightly elevated at 0.61 and he was first empirically treated with levofloxacin from 05/27-05/29 for suspicion of atypical pneumonia and fluconazole for cocci coverage. Patient quickly progressed to requiring Hi-Flow oxygen and had multiple rapid response alerts for increasing oxygen requirements and recurrent fevers. He was monitored in ICU from 05/30- 05/31, at that time started on steroids and antibiotics were escalated to azithromycin, doxycycline, and Zosyn as well as high dose steroids. He seemed to have improved and was downgraded at that time without needing intubation. ID and Pulmonology were consulted, and the patient was started on Bactrim to cover pneumocystis pneumonia. Several tests which had been sent were negative, including Cocci IgM and IgG, Legionella, and all blood, urine, sputum cultures had been negative at that point. HIV test was reported to be a preliminary positive, and sent out for confirmation studies but result had significant delay. Patient had reported a single sexual partner with his fiance for the last 5 years, last contact few weeks before admission, and denied IV drug usage. He did endorse 1 pack per day smoking history since teenage years, and occasional alcohol and marijuana. He had tattoos done as a young teenager, none recent. He had history of temporary incarceration. After the downgrade, patient developed worsening dyspnea on movement, desaturation, and complaints of work of breathing despite Hi-Flow at 100% FiO2. He was upgraded to ICU again on 06/05 for intubation and bronchoscopy, which showed normal-appearing mucosa, and BAL sample was sent for culture and cytology. Patient was given paralysis and managed with vent settings for ARDS. At this point, autoimmune studies including Rh factor, DANIEL, ANCA, Anti-proteinase 3, Anti-myeloperoxidase, Complement C3/C4c all returned negative. Absolute CD4 count was low at 116. On 06/07, in light of still unconfirmed diagnosis and critical status, patient's named [id number] and decision-maker, sister Francesca, was asked to bring forward any other additional history about patient's substance use, particularly any vape pens or supplements/substances he may have used to investigate for possible Vape-Associated Lung Injury. Sister brought in patient's bag of belongings from home containing vials of trenbolone (anabolic steroid) and testosterone and needles, which sister reports may have been purchased from [facility]. There were additional male enhancement supplements, synthetic urine kit, marijuana wax pen, and cigarette boxes. 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 On 06/08, HIV viral load came back at 5,660,000 copies. HIV 1 antibody was positive. HIV 2 negative. On 06/09, patient was started on antiretrovirals, Truvada and raltegravir. Patient also started having significant hyperkalemia, requiring multiple pushes of insulin, calcium gluconate, and kayexylate, eventually needing dialysis on 06/06, 06/08, and 06/09. Suspected Bactrim adverse effect, Bactrim was continued however to treat PCP. Patient has continued on mechanical ventilation. While he initially succeeded at weaning to spontaneous mode with Pressure Support of 8, FiO2 40% on sedation, it has been a challenge to wean sedation off successfully. Patient would become increasingly tachypneic, with work of breathing and desaturation, and has been unable have sedation low enough to follow commands, eye track, or make purposeful movements. On 06/15, patient had spiked fevers, WBC worsened, and patient had tachypneia again with worsening respiratory acidosis. Patient was proned. PE was suspected and heparin drip was started. ET sputum culture from 06/09 grew VRE enterococcus casseliflavus therefore linezolid and meropenem was started, Zosyn was discontinued. Patient is planned for tracheostomy on 06/21/2024 (Day 17 of intubation) if unable to wean from the vent. 06/21/2024: The patient was examined and evaluated at the bedside. No acute overnight events, continues to be intubated and mechanically ventilated, vitals still significant for RR 34-35, CBC at baseline with improving LFT. ABG revealed improvement on pCO2 and pO2. Chemistry panel with sodium 132, phosphorus 2.2 which were repleted. Overnight, ventilator setting was changed and tidal volume was increased to 450, FiO2 increased to 50. This morning, we reverted back tidal volume to 400 cc and FiO2 to 40%. We started the patient on internal sedatives with phenobarbital 60 Mg 3 times daily, clonazepam 1 Mg 3 times daily and oxycodone 10 Mg 3 times daily to decrease from IV sedation, as previous attempt to wean off IV sedation were unsuccessful. General surgeon Dr. Ryan was consulted, who will perform tracheostomy on 06/23/2024. NEURO #Acute encephalopathy, secondary to prolonged sedation 06/05/2024 Patient was intubated, sedated, and paralyzed for ARDS. Prior to intubation, patient was awake, alert, and oriented x3, following commands, conversational. Initially, fentanyl was discontinued 06/09 as a sedative due to concern for tachyphylaxis, restarted 06/15 Morphine drip (given in place of fentanyl) was discontinued 06/14 Cisatracurium to target 2/4 ToF twitches, discontinued Plan: -Goal sedation: RASS -4, as he did not tolerated decreasing the sedation -We will start the sedation bridge with enteral sedation with Phenobarb 60 Mg 3 times daily, clonazepam 1 Mg 3 times daily, and oxycodone 10 Mg 3 times daily -Fentanyl at 200 mcg/hr -Propofol at 5 mcg/kg/min -Midazolam 4 mg IV prn for breakthrough agitation #Fever---Resolved 06/15 Fever overnight with spike at 102.0, acetaminophen 975 mg given with resolution of fever. Possible new ventilator-associated infection? Plan: -Acetaminophen as needed CARDIO #Right upper extremity DVT. -Doppler US right upper extremity 06/17/24: revealed RUE DVT -On Heparin Drip #Sinus tachycardia---Resolved. Tachycardia most likely secondary to respiratory distress and agitation. 06/15: Possible new sepsis? Patient with new fevers, increased tachypneia. Low threshold of suspicion for PE, therefore heparin drip was started 06/15. Plan: -Continuous telemetry -Continue sedation with RASS goal -4 for now -CTPA negative for PE 06/16/24 #Septic shock, resolved Secondary to severe extensive bilateral pneumonia. Patient was on norepinephrine 06/06-06/10. Currently off pressors. 06/06/2024 Echo was read EF 55-60% 06/09/2024 Blood cultures negative 06/09/2024 Urine culture negative 06/09/2024 ET culture POSITIVE for Staph haemolyticus, Entercoccus casseliflavus vancomycin-resistant PULM #Acute hypoxic respiratory failure Secondary to #Bilateral pneumocystis jirovecii pneumonia #Healthcare associated pneumonia #Ventilator associated pneumonia Patient presented with dyspnea and cough, requiring 4L NC on first ED evaluation, and history of chills, body aches, generalized weakness, fever, and night sweats progressively worsening over the prior weeks. Approx 20-pack year smoking history, occasional marijuana. 05/27/2024 Received ceftriaxone/azithromycin in ED. Started on levofloxacin as an inpatient. 05/28/2024 Started on fluconazole (discontinued 06/12). Started requiring Hi- Flow. 05/30/2024 Upgraded to ICU for close monitoring. Started on doxycycline. Started on azithromycin (completed 5-days). Started on Zosyn (discontinued 06/15). Started Solu-Medrol. 06/01/2024 Downgraded. Started on Bactrim (discontinued doxy). 06/05/2024 Intubation of the patient, return to ICU. Suspected ARDS. Bronchoscopy showed normal-appearing mucosa and no mucous plugging, hemorrhage, or friability bilaterally. Bronchoalveolar washings culture were negative for growth. Fungal cultures are pending. 06/07/2024 Bronchoalveolar lavage cytology shows Pneumocystis jirovecii. Also other fungi, possibly Kassandra. Kassandra is most likely a contaminant. Blood [id number] also positive. 06/08/2024 HIV quant 5.66 million copies. HIV 1 positive confirmed. Patient was proned due to desaturation event. 06/09/2024 Started on prophylactic micafungin. Started Truvada and raltegravir HAART. Patient's decision-maker, sister Francesca informed of HIV+ and diagnosis. 06/14/2024 ETT sputum cultures from 06/09 positive for Staphylococcus hemolyticus, ID stated that this is not a respiratory pathogen, no need to treat. 06/15/2024 Above #2 pathogen showed vancomycin-resistant enterococcus casseliflavus, started linezolid. Zosyn stopped and meropenem started. 06/15/2024 Increased tachypnea, vent overbreathing, paralyzed and proned. 06/17/2024 oxygenation and hypercapnia improved, was put in supine position, continued to be paralyzed. 06/18/2024 paralytic was discontinued, the plan is to continue with sedation until the tracheostomy placement, possible tracheostomy on 06/23/24 Plan: -Ventilation on volume control, saturation to be maintained >90%, PEEP at 8, RR 30, FiO2 at 35% wean if tolerated -Continue Bactrim 06/01/24 - to be continued through 06/21 for 21 days of treatment -Discontinued Zosyn 05/30/24-06/15/24 -Started meropenem 1000 mg q8h 06/15/24-Discontinued 06/19/24 -Started linezolid 600 mg q12h 06/15/24- -Continue micafungin 100 mg qday 06/09/24- -Fungal cultures from BAL pending -Mary Carmenbs q4h as needed -New blood cultures sent 06/15?negative for growth -New ET culture sent 06/15?negative for growth - #ARDS Patient continues to have increased oxygen demands with worsening bilateral infiltrates on CXR. Will maintain ARDS ventilation protocol. 06/08/24 P:F ratio 89/1=89. Severe ARDS. 06/09/24 P:F ratio 97/60=855. Moderate ARDS. 06/10/24 P:F ratio 65/47=175 06/11/24 P:F ratio 70/90=967 06/12/24 P:F ratio 217 06/13/24 P:F ratio 160 06/15/24 P:F ratio 91, ABGs showing pH in the 7.00s, elevated pCO2 110-120s. 06/20/24: P:F ratio 151, moderate ARDS Plan: -VC overnight, maintain PEEP 8, FiO2 to maintain saturation 92% -Maintain peak plateau <30 -Follow up ABG -Prednisone 20mg qday. GI Prophylaxis: Pantoprazole 40 mg IV qday #Elevated LFTs, improving Likely due to propofol and bactrim. Mildly elevated, liver US 05/30/2024 showed normal gallbladder and hepatomegaly without lesions or evidence of obstructions. Hep panel negative. LFTs downtrended compared to 06/06/24. 06/15/2024 Floyd in LFTs with AST 303, ALT 420, Tbili 1.3, therefore right upper quadrant US ordered, negative for cholecystitis/cholelithiasis, hepatitis panel negative. No obvious changes on physical exam. 06/20/24: LFT AST/ALT/ALP : 99/123/118 Plan: -Continue monitoring NEPHRO #Hypophosphatemia #WILL, resolved #Mild hyponatremia---Resolved #Hyperkalemia---Resolved #Hyperphosphatemia, resolved Ddx: Prerenal WILL due to hypotension vs possible rhabdomyolysis vs drug toxicity (zosyn, vancomycin, bactrim) Unlikely rhabdomyolysis, CK was 511 06/06, did not uptrend. Urine output is >100 ml/hr, urine is yellow and clear. Possible underlying SIADH. Potassium 06/11/24 4.4. Plan: -Continue Veltassa 8.4 gm qday for potassium chelation -Nephrology Dr. Song is following for as-needed dialysis due to hyperkalemia -Continue free water at 40 ml/hr -Maintain euvolemia -Monitor CMP, especially potassium -Replete electrolytes as needed. #Primary respiratory acidosis compensated by metabolic alkalosis ABGs are showing acidemia with elevation of pCO2, indicative of primary respiratory acidosis. There is an underlying metabolic alkalosis due to the given bicarb being greater than the expected compensatory bicarb. pH 7.36, pCO2 74. pO2 55 Plan: -Patient was given 150 mEq bicarb in pushes x3 throughout the day 06/15 for acidemia -Bicarb drip was discontinued 06/17 -Follow-up lactate was normal -As per Pulm URO #No active problems -Tijerina placed 06/05/2024 for strict I&O monitoring HEME #Leukocytosis, resolved Fluctuating WBC. In the setting of likely infection, inflammation, and corticosteroids. Plan: -Treatment of pneumonia as above #Microcytic anemia Stable, has not required any transfusions this admission thus far. Clinically no evidence of bleeding. Iron panel shows iron 17, TIBC 262, iron saturation 6, unsaturated iron binding 245. Peripheral blood film confirms microcytic hypochromic anemia with target cells. Also daily lab draws contributing. Plan: -Monitor H&H. Transfusing for Hgb <7 #Thrombocytosis, resolved Likely reactive. -Continue to monitor ENDO #No active problems -Blood glucose on chemistry panels in acceptable range ID #Bilateral pneumocystis pneumonia #Healthcare associated pneumonia #Ventilator associated pneumonia Negative studies: Cocci IgM and IgG, Hepatitis panel, Syphilis, Legionella, H.flu, N.meningitidis, Strep B, Strep pneumoniae, COVID, RSV, Flu A & B. TB quantiferon GOLD-indeterminate, however 06/05 AFB negative, CMV IgM, cryptococcal antigen negative. G6PD levels came back normal for consideration of dapsone alternative to Bactrim if needed. Patient completed 5 day course of azithromycin, 16 days of Zosyn. See Pulm for timeline of antimicrobial coverage. Plan: -Continue Bactrim 06/01/24 - to be continued through 06/21 for 21 days of treatment -Discontinued Zosyn 05/30/24-06/15/24 -Discontinued meropenem as patient has been afebrile since 06/15 -continue linezolid 600 mg q12h 06/15/24- -Continue micafungin 100 mg qday 06/09/24- -Fungal cultures from BAL pending -New blood cultures sent 06/15?negative for growth -New ET culture sent 06/15?negative for growth #AIDS/HIV Patient has Stage 4 HIV, AIDS-defining illness with opportunistic infection. 06/07/2024 Bronchoalveolar lavage cytology shows Pneumocystis jirovecii. Also other fungi, possibly Kassandra. Kassandra is most likely a contaminant. Blood ucab-[id number] also positive. 06/08/2024 HIV quant 5.66 million copies. HIV 1 positive confirmed. 06/09/2024 Patient's decision maker, Francesca, was informed of diagnosis due to critical state of patient. Absolute CD4 count 87 and 22% on 06/02. History/risk factors: History of injection anabolic androgenic steroid and testosterone use, possible unclean needles. History of incarceration (unknown time). Tattoos received as a teenager. Has 1 female sexual partner last 5 years, denies others. -Continue HAART: emtricitabine / tenofovir (Truvada) and raltegravir initiated 06/09/24 -Patient is not aware of his diagnosis as he has been intubated and sedated before results returned. Will require complete education and counseling on the disease if his mental status and clinical condition improves. MSK #Elevated creatine kinase Checked CK due to acute WILL, however now resolved. Unlikely to be rhabdo, patient producing adequate clear urine. Most likely elevated due to paralytic use and bedbound status. 06/06 511 06/08 206 06/10 220 Plan: -Continue to monitor urine output and kidney function SKIN #No active problems DVT prophylaxis: Lovenox 40 subQ qday GI prophylaxis: Pantoprazole 40 mg IV qday Diet: Tube feeds Nepro Tijerina: Present (06/05- ) Lines: Peripheral IV, radial arterial line. Antibiotics: Bactrim, linelozid, micafungin CODE STATUS: FULL CODE Reason for ICU care: Acute hypoxic respiratory failure secondary to bilateral pneumonia/ARDS Patient plan of care was discussed with the attending physician, Dr. Price. Jeff Pacehco MD, PGY2
[2024-06-21] MEDS: PHENOBARBITAL ELIX 20 MG/5 ML 60 MG GT ×2 (18:06→21:01)
[2024-06-21] MEDS: QUEtiapine FUMARATE 25 MG TABLET PO (20:57)
[2024-06-21] MEDS: DOCUSATE SOD 100 MG CAPSULE PO (20:58)
[2024-06-21] MEDS: PROPOFOL 1,000 MG IVPB 1,000 MG/100 ML VIAL 22.383 MG IV (21:46)
[2024-06-22] VITALS (29 sets, daily range): BP systolic 87–160; BP diastolic 40–73; PULSE 81–108; RESP 0–40; TEMP 36.1–36.6; O2SAT 89–100; BMI 27.7
[2024-06-22] MEDS: PROPOFOL 1,000 MG IVPB 1,000 MG/100 ML VIAL 19.896 MG IV ×4 (01:54→21:28)
[2024-06-22] MEDS: Heparin/D5w 25K 250 ML Ivpb 25,000 UNIT/250 ML BAG 16.632 UNIT IV ×2 (03:41→22:30)
[2024-06-22 04:27] LABS: Base Excess 14 (-3-3); HCO3 40 mEq/L (20-26); Inspired Oxygen, FIO2 40 %; O2 Saturation 91 % (91-98); PCO2 57 mmHg (32.0-48.0); PO2 60 mmHg (83-108); pH, Arterial 7.45 (7.35-7.45)
[2024-06-22 04:28] LABS: Allen Test Not Performed; Puncture Site Arterial Line
[2024-06-22] MEDS: PHENOBARBITAL ELIX 20 MG/5 ML 60 MG GT (05:22)
[2024-06-22] MEDS: clonazePAM 0.5 MG TABLET 1 MG GT (05:22)
[2024-06-22] MEDS: Artificial Tears 225 DROP/15 ML BTL BOTH EYES ×4 (05:22→21:18)
[2024-06-22] MEDS: oxyCODONE HCL 5 MG IR TAB 10 MG GT ×3 (05:22→21:19)
[2024-06-22 05:51] LABS: Basophils % (Auto) 0 % (0-2.5); Eosinophils # (Auto) 0.7 Thou/mm3 (0.0-0.5); Eosinophils % (Auto) 13 % (0-10); Immature Granulocytes % (Auto) 1 % (0-0); Immature Granulocytes Auto 0.04 Thou/mm3 (0.00-0.00); Lymphocytes # (Auto) 0.2 Thou/mm3 (1.0-4.8); Lymphocytes % (Auto) 3 % (10-50); Mean Corpuscular HGB Conc 31.6 g/dl (31.0-37.0); Mean Corpuscular Volume 76 fL (80-100); Monocytes # (Auto) 0.1 Thou/mm3 (0.0-0.8); Monocytes % (Auto) 2 % (0-12); Neutrophils # (Auto) 4.2 Thou/mm3 (1.8-7.7); Neutrophils % (Auto) 81 % (37-80); Nucleated Red Blood Cell # 0.04 Thou/mm3 (0.00-0.00); Nucleated Red Blood Cell % 1 /100 WBC (0); Platelet Count 163 Thou/mm3 (140-440); Red Blood Count 3.29 Miln/mm3 (4.50-5.90); White Blood Count 5.2 Thou/mm3 (3.8-10.6)
[2024-06-22 05:59] LABS: Hemoglobin 7.9 g/dL (13.5-16.0)
[2024-06-22 06:31] LABS: Alanine Aminotransferase 116 U/L (10-49); Albumin/Globulin Ratio 1.2 (1.2-2.2); Alkaline Phosphatase 157 U/L (46-116); Anion Gap 3 (7-16); Aspartate Amino Transferase 102 U/L (0-34); BUN/Creatinine Ratio 26 Ratio (12-20); Bilirubin,Total 0.3 mg/dL (0.3-1.2); Blood Urea Nitrogen 13 mg/dL (9-23); Calcium 8.1 mg/dL (8.3-10.6); Calcium (Corrected) 8.9 mg/dL (8.5-10.1); Carbon Dioxide 36.8 mMol/L (20.0-31.0); Chloride 92 mMol/L (98-107); Creatinine (Component) 0.5 mg/dL (0.6-1.3); Estimated Creatinine Clearance 164.1 mL/min (>60); Globulin 2.6 gm/dL (2.3-3.5); Glucose 87 mg/dL (74-106); Magnesium 1.8 mg/dL (1.6-2.6); Osmolality,Calculated 263 (275-295); Phosphorous 2.1 mg/dL (2.4-5.1); Potassium 3.7 mMol/L (3.4-5.1); Sodium 132 mMol/L (136-145); Total Protein 5.6 gm/dL (5.7-8.2); Triglycerides 195 mg/dL (30-150); eGFR > 60 See Note
[2024-06-22] MEDS: fentaNYL 2,500 MCG/250 ML BAG 2,500 MCG/250 ML BAG 20 MCG IV ×2 (08:00→21:15)
[2024-06-22] MEDS: bisacodyL 5 MG TABEC PO (08:06)
[2024-06-22] MEDS: LINEZOLID 600 MG IVPB 600 MG/300 ML BAG 300 MG IV (08:06)
[2024-06-22] MEDS: NAPH,KPH MBDB 1 PACKET (1.5 GM) PO ×2 (08:06→15:00)
[2024-06-22] MEDS: predniSONE 20 MG TABLET PO (08:06)
[2024-06-22] MEDS: PANTOPRAZOLE INJ 40 MG VIAL IVP (08:07)
[2024-06-22 08:11] LABS: Partial Thromboplastin Time 50.5 Seconds (22.0-36.0)
[2024-06-22] MEDS: [UNRECOGNIZED DRUG - REMARK] 400 MG NG ×2 (08:12→21:21)
[2024-06-22] MEDS: SENNA TABLET 1 TAB PO (08:12)
[2024-06-22] MEDS: POLYETHYLENE GLYCOL 17 GM PACKET PO (08:12)
[2024-06-22] MEDS: EMTRICITABINE 200 MG/TENOFOVIR 300 MG TAB (NON-FORM) 1 TAB PO (08:13)
[2024-06-22] MEDS: PATIROMER CALCIUM 8.4 GM PACKET (NON-FORM) NG (08:20)
[2024-06-22] MEDS: DOCUSATE SOD LIQD 100 MG/10 ML UDC PO ×2 (08:21→21:18)
[2024-06-22 08:37] LABS: Clostridium Difficile PCR Negative (Negative)
[2024-06-22] MEDS: MICAFUNGIN SODIUM INJ 100 MG in SODIUM CHLORIDE 0.9% 100 ML IV (10:05)
--- NOTE | 2024-06-22 10:52 | ESPR_ITS ---
Documentation for date of: 06/22/24 Subjective Subjective Interval history: Patient seen and examined. Sedated and intubated. No acute events overnight. Plan for trach tomorrow. Exam Vital Signs Temp Pulse Resp BP Pulse Ox O2 Del Method O2 Flow Rate 97.8 F 98 34 H 104/48 L 100 Mechanical Ventilation 40 06/22/24 08:00 06/22/24 10:22 06/21/24 18:31 06/22/24 10:22 06/22/24 10:22 06/22/24 04:00 06/09/24 12:16 FiO2 45 06/22/24 10:22 Narrative Exam GEN: Critically ill, not acutely distressed, sedated and intubated. Neuro: Deferred due to sedation. HEENT: NCAT, trachea midline, moist mucous membranes, ET tube in place, PO tube noted. CVS: RRR, S1S2 present, no M/R/G. No JVD Respi: Mechanically ventilated, b/l breath sounds heard with diffuse rhonchi, no wheezing/crackles. ABD: Soft, no grimace to palpation, bowel sounds present in all 4 quadrants. Skin: warm, dry and intact. Extremities: Pulses 3+ in all extremities, RUE edema, vesicles 1-2 cm on the forearm surface. Objective Labs 06/22/24 04:47 06/22/24 04:47 Labs: Laboratory Results - last 24 hr 06/04/24 06/21/24 06/21/24 09:56 12:56 18:30 WBC RBC Hgb Hct MCV MCH MCHC RDW Std Deviation Plt Count Neut % (Auto) Lymph % (Auto) Whiteside % (Auto) Eos % (Auto) Baso % (Auto) Neut # (Auto) Lymph # (Auto) Whiteside # (Auto) Eos # (Auto) Baso # (Auto) Immature Gran # (Auto) Absolute Nucleated RBC Immature Gran % Nucleated RBC % APTT Puncture Site ABG pH ABG pCO2 ABG pO2 ABG HCO3 ABG O2 Saturation ABG Base Excess FiO2 Sodium Potassium Chloride Carbon Dioxide Anion Gap BUN Creatinine Estim Creat Clear Calc eGFR BUN/Creatinine Ratio Glucose Calculated Osmolality Calcium Corrected Calcium Phosphorus 2.2 L Magnesium 2.0 Total Bilirubin AST ALT Alkaline Phosphatase Total Protein Albumin Globulin Albumin/Globulin Ratio Triglycerides Stl C. diff Tox B Gene Negative Misc Test Result See Sep Rpt 06/22/24 06/22/24 04:18 04:47 WBC 5.2 RBC 3.29 L Hgb 7.9 L Hct 25.0 L MCV 76 L MCH 24.0 L MCHC 31.6 RDW Std Deviation 53.0 H Plt Count 163 Neut % (Auto) 81 H Lymph % (Auto) 3 L Whiteside % (Auto) 2 Eos % (Auto) 13 H Baso % (Auto) 0 Neut # (Auto) 4.2 Lymph # (Auto) 0.2 L Whiteside # (Auto) 0.1 Eos # (Auto) 0.7 H Baso # (Auto) 0.0 Immature Gran # (Auto) 0.04 H Absolute Nucleated RBC 0.04 H Immature Gran % 1 H Nucleated RBC % 1 H APTT 50.5 H Puncture Site Arterial Line ABG pH 7.45 ABG pCO2 57 H ABG pO2 60 L D ABG HCO3 40 H ABG O2 Saturation 91 ABG Base Excess 14 H FiO2 40 Sodium 132 L Potassium 3.7 Chloride 92 L Carbon Dioxide 36.8 H Anion Gap 3 L BUN 13 Creatinine 0.5 L Estim Creat Clear Calc 164.1 eGFR > 60 BUN/Creatinine Ratio 26 H Glucose 87 Calculated Osmolality 263 L Calcium 8.1 L Corrected Calcium 8.9 Phosphorus 2.1 L Magnesium 1.8 Total Bilirubin 0.3 AST 102 H ALT 116 H Alkaline Phosphatase 157 H Total Protein 5.6 L Albumin 3.0 L Globulin 2.6 Albumin/Globulin Ratio 1.2 Triglycerides 195 H Stl C. diff Tox B Gene Misc Test Result ABG Interpretation ABG results: 05/27/24 05/29/24 05/29/24 23:37 10:44 22:08 ABG pH 7.51 H 7.50 H 7.48 H ABG pCO2 28 L 32 32 ABG pO2 75 L 79 L 145 H D ABG HCO3 23 25 24 ABG O2 Saturation 96 95 98 ABG Base Excess 0 2 1 05/30/24 05/31/24 06/04/24 08:45 04:54 02:10 ABG pH 7.47 H 7.45 7.45 ABG pCO2 35 38 36 ABG pO2 86 D 82 L 139 H ABG HCO3 26 26 25 ABG O2 Saturation 97 96 98 ABG Base Excess 2 2 1 06/04/24 06/05/24 06/05/24 18:16 11:36 12:59 ABG pH 7.44 7.11 L* D 7.20 L ABG pCO2 36 94 H* D 68 H D ABG pO2 80 L D 150 H D 121 H D ABG HCO3 24 30 H 26 ABG O2 Saturation 94 97 97 ABG Base Excess 0 -2 -3 06/05/24 06/06/24 06/06/24 19:25 04:13 15:27 ABG pH 7.22 L 7.27 L 7.30 L ABG pCO2 64 H 57 H 60 H ABG pO2 122 H 153 H D 74 L D ABG HCO3 26 26 29 H ABG O2 Saturation 97 99 H 92 ABG Base Excess -3 -2 2 06/07/24 06/07/24 06/08/24 03:55 09:59 04:20 ABG pH 7.41 D 7.43 7.45 ABG pCO2 56 H 55 H 50 H ABG pO2 293 H D 78 L D 75 L ABG HCO3 36 H 37 H 35 H ABG O2 Saturation 99 H 95 94 ABG Base Excess 10 H 11 H 10 H 06/08/24 06/08/24 06/08/24 11:05 11:50 13:18 ABG pH 7.17 L* D 7.10 L* 7.15 L* ABG pCO2 95 H* D 115 H* D 88 H* D ABG pO2 89 75 L 72 L ABG HCO3 34 H 36 H 31 H ABG O2 Saturation 92 84 L 85 L ABG Base Excess 3 4 H 0 06/08/24 06/09/24 06/09/24 17:02 01:33 03:15 ABG pH 7.18 L* 7.22 L 7.27 L ABG pCO2 50 H D 91 H* D 82 H* ABG pO2 82 L 105 D 86 ABG HCO3 19 L 37 H 38 H ABG O2 Saturation 93 97 95 ABG Base Excess -9 L 7 H 9 H 06/09/24 06/09/24 06/10/24 05:08 12:52 04:40 ABG pH 7.31 L 7.33 L 7.30 L ABG pCO2 75 H* 57 H D 78 H* D ABG pO2 97 158 H D 65 L D ABG HCO3 38 H 30 H 38 H ABG O2 Saturation 97 99 H 90 L ABG Base Excess 10 H 3 9 H 06/10/24 06/11/24 06/12/24 09:40 04:19 04:15 ABG pH 7.27 L 7.35 7.48 H D ABG pCO2 88 H* D 86 H* 63 H D ABG pO2 65 L 70 L 76 L ABG HCO3 40 H 48 H 47 H ABG O2 Saturation 89 L 93 95 ABG Base Excess 10 H 19 H 21 H 06/13/24 06/14/24 06/15/24 07:22 04:32 03:45 ABG pH 7.46 H 7.48 H 7.46 H ABG pCO2 56 H 40 D 37 ABG pO2 80 L 64 L 71 L ABG HCO3 39 H 30 H 27 H ABG O2 Saturation 95 92 94 ABG Base Excess 13 H 6 H 3 06/15/24 06/15/24 06/15/24 10:17 12:20 14:20 ABG pH 7.01 L* D 7.00 L* 7.03 L* ABG pCO2 122 H* D 130 H* 125 H* ABG pO2 91 D 88 82 L ABG HCO3 31 H 32 H 33 H ABG O2 Saturation 88 L 88 L 87 L ABG Base Excess -3 -2 -1 06/15/24 06/15/24 06/16/24 15:55 20:39 00:35 ABG pH 7.03 L* 7.08 L* 7.10 L* ABG pCO2 121 H* 116 H* 118 H* ABG pO2 99 117 H 102 ABG HCO3 32 H 34 H 37 H ABG O2 Saturation 93 97 96 ABG Base Excess -1 2 4 H 06/16/24 06/16/24 06/17/24 04:45 08:55 05:06 ABG pH 7.17 L* 7.28 L D 7.33 L ABG pCO2 112 H* 88 H* D 96 H* ABG pO2 155 H D 98 D 126 H D ABG HCO3 41 H 41 H 50 H ABG O2 Saturation 99 H 98 99 H ABG Base Excess 9 H 12 H 21 H 06/17/24 06/17/24 06/18/24 10:58 13:55 04:16 ABG pH 7.29 L 7.29 L 7.33 L ABG pCO2 106 H* D 106 H* 86 H* D ABG pO2 58 L* D 61 L 77 L ABG HCO3 51 H 51 H 45 H ABG O2 Saturation 87 L 88 L 95 ABG Base Excess 21 H 21 H 17 H 06/19/24 06/20/24 06/21/24 04:18 04:49 04:06 ABG pH 7.42 7.36 7.44 ABG pCO2 63 H D 74 H* D 61 H D ABG pO2 66 L 55 L* 202 H D ABG HCO3 41 H 42 H 42 H ABG O2 Saturation 93 87 L 100 H ABG Base Excess 15 H 14 H 16 H 06/22/24 04:18 ABG pH 7.45 ABG pCO2 57 H ABG pO2 60 L D ABG HCO3 40 H ABG O2 Saturation 91 ABG Base Excess 14 H Quality Measures Quality Measures sepsis Current suspected stage: ruled out Possible source: pulmonary, GI tract/intra-abdominal, genitourinary and skin/soft tissue Blood cultures ordered: yes Antibiotic ordered: Yes Assessment & Plan Assessment Current Active Medications: Generic Name Dose Route Start Last Admin Trade Name Freq PRN Reason Stop Dose Admin Acetaminophen 975 mg 06/09/24 14:27 06/15/24 02:56 Acetaminophen Munira 325 Mg/10 Ml Udc PO 06/26/24 12:10 975 mg Q6H PRN Administration Pain 1-3 and Fever >101.5 Albuterol/Ipratropium 3 ml 06/05/24 11:40 06/09/24 22:18 Albuterol/Ipratropium (Duoneb) Rt Munira 3 Ml Nebu INH 07/05/24 14:59 3 ml Q4HRRT PRN Administration Wheezing Artificial Tears 1 drop 06/18/24 12:00 06/22/24 05:22 Artificial Tears 225 Drop/15 Ml Btl BOTH EYES 07/18/24 11:59 1 drop QID JUAN JOSE Administration Bisacodyl 5 mg 06/14/24 17:15 06/22/24 08:06 Bisacodyl 5 Mg Tabec PO 07/14/24 17:14 5 mg QDAY JUAN JOSE Administration Protocol Clonazepam 1 mg 06/21/24 18:00 06/22/24 05:22 Clonazepam 0.5 Mg Tablet GT 06/26/24 17:59 1 mg TID JUAN JOSE Administration Dextrose 25 ml 06/06/24 08:20 Dextrose 50%-Water Inj 50 Ml Syringe IV 07/06/24 08:19 Q15MIN PRN BG 50-70 responsive npo pt Dextrose 50 ml 06/06/24 08:20 Dextrose 50%-Water Inj 50 Ml Syringe IV 07/06/24 08:19 Q15MIN PRN BG <50 OR BG <70 & pt unresponsive Docusate Sodium 100 mg 06/22/24 09:00 06/22/24 08:21 Docusate Sod Liqd 100 Mg/10 Ml Udc PO 07/22/24 08:59 100 mg BID JUAN JOSE Administration Protocol Emtricitabine/Tenofovir 1 tab 06/16/24 12:30 06/22/24 08:13 Emtricitabine 200 Mg/Tenofovir 300 Mg Tab (Non-Form) PO 07/16/24 12:29 1 tab QDAY JUAN JOSE Administration Glucagon 1 mg 06/06/24 08:20 Glucagon Inj 1 Mg Vial IM Q15MIN PRN BG <70, and no IV access Micafungin Sodium 100 mg/ 100 mls @ 100 mls/hr 06/09/24 09:00 06/22/24 10:05 Sodium Chloride IV 06/24/24 08:59 100 mls/hr QDAY JUAN JOSE Administration Linezolid 600 mg in 300 mls @ 300 mls/hr 06/15/24 11:31 06/22/24 08:06 Zyvox Ivpb IV 06/22/24 11:30 300 mls/hr Q12HR JUAN JOSE Administration Heparin Sodium/Dextrose 25,000 unit in 250 mls @ 13.608 mls/hr 06/15/24 14:45 06/22/24 03:41 Heparin In D5w Ivpb IV 06/29/24 14:44 22 units/kg/hr .[id number] JAUN JOSE 16.632 mls/hr Administration Protocol 18 UNITS/KG/HR Midazolam HCl 100 mg in 100 mls @ 1 mls/hr 06/18/24 11:14 06/22/24 06:00 Versed Pf Inj In Ns Premix IV 06/23/24 11:13 1 mg/hr .Q24H PRN 1 mls/hr PER PROTOCOL Titration Protocol 1 MG/HR Propofol 1,000 mg in 100 mls @ 2.487 mls/hr 06/18/24 12:17 06/22/24 08:19 Diprivan Ivpb IV 12/21/24 14:25 40 mcg/kg/min .Q24H PRN 19.896 mls/hr PER PROTOCOL Administration Protocol 5 MCG/KG/MIN Fentanyl Citrate 2,500 mcg in 250 mls @ 20 mls/hr 06/20/24 07:00 06/22/24 08:00 Sublimaze Inj 2,500 Mcg/250 Ml Bag IV 06/25/24 06:59 200 mcg/hr .[id number] PRN 20 mls/hr PER PROTOCOL Administration Protocol 200 MCG/HR Ondansetron HCl 4 mg 05/29/24 21:51 06/04/24 17:44 Ondansetron Inj 2 Mg/Ml Inj 2 Ml IV 06/28/24 21:50 4 mg Q6HR PRN Administration NAUSEA OR VOMITING Protocol Oxycodone HCl 10 mg 06/21/24 18:00 06/22/24 05:22 Oxycodone Hcl 5 Mg Ir Tab GT 06/26/24 17:59 10 mg TID JUAN JOSE Administration Pantoprazole Sodium 40 mg 06/06/24 09:00 06/22/24 08:07 Pantoprazole Inj 40 Mg Vial IVP 07/06/24 08:59 40 mg QDAY JUAN JOSE Administration Patiromer 8.4 gm 06/09/24 10:45 06/22/24 08:20 Patiromer Calcium 8.4 Gm Packet (Non-Form) NG 07/09/24 10:44 8.4 gm QDAY JUAN JOSE Administration Phenobarbital 60 mg 06/21/24 18:00 06/22/24 05:22 Phenobarbital Elix 20 Mg/5 Ml Udc GT 07/05/24 17:59 60 mg TID JUAN JOSE Administration Polyethylene Glycol 17 gm 06/14/24 17:15 06/22/24 08:12 Polyethylene Glycol 17 Gm Packet PO 07/14/24 17:14 17 gm QDAY JUAN JOSE Administration Potassium Phos/Sodium Phos 1 packet 06/22/24 15:57 Naph,[facility] Mbdb 1 Packet (1.5 Gm) PO 06/22/24 15:58 X1 ONE Prednisone 20 mg 06/21/24 09:00 06/22/24 08:06 Prednisone 20 Mg Tablet PO 07/21/24 08:59 20 mg QDAY JUAN JOSE Administration Quetiapine Fumarate 25 mg 06/13/24 21:00 06/21/24 20:57 Quetiapine Fumarate 25 Mg Tablet PO 07/13/24 20:59 25 mg HS JUAN JOSE Administration Raltegravir 400 mg 06/16/24 12:30 06/22/24 08:12 Raltegravir 100 Mg Chew (Non-Form) NG 06/23/24 12:29 400 mg BID JUAN JOSE Administration Sennosides 1 tab 06/11/24 09:00 06/22/24 08:12 Senna Tablet PO 07/11/24 08:59 1 tab QDAY JUAN JOSE Administration Protocol Plan #Acute respiratory acidosis, primary #Metabolic alkalosis, secondary #Hypophoshatemia #Hypomagnesemia #Hyperkalemia, resolved Likely 2/2 to lung injury (increased Vd) due to severe ARDS 2/2 PJP in the setting of AIDS ABG 7.44/61/202/42 bicarb 39.2, phos low, low mag, K normal good UOP Plan: -cont vent settings -veltassa -monior electrolytes, UOP - Patient's care was discussed with my attending physician, Dr. Duncan Awan MD Internal Medicine PGY-3 Attending Provider Attestation/Addendum Agree with assessment and plan and findings. Seen and examined. labs reviewed. Plan discussed with resident. Teo Song MD
--- NOTE | 2024-06-22 12:12 | PC.DIETICIAN ---
Nutrition prescription After PEG tube placement, recommend switching to: Jevity 1.2 at 20 ml/hr via PEG tube by pump. Advance 10 ml every 8 hrs to goal rate of 65 ml/hr x 24 hrs. If no IV fluids, water flushes of 25 ml/hr (or per MD).
[2024-06-22] MEDS: TRIMETHOPRIM PO (13:29)
[2024-06-22] MEDS: SULFA PO (13:29)
[2024-06-22] MEDS: clonazePAM 0.5 MG TABLET 2 MG GT ×2 (14:10→21:19)
[2024-06-22] MEDS: PHENOBARBITAL ELIX 20 MG/5 ML 90 MG GT ×2 (14:22→21:18)
--- NOTE | 2024-06-22 14:57 | PC.SS ---
Update: Patient remains intubated/sedated. Plan is for Trach/PEG tomorrow.
--- NOTE | 2024-06-22 15:00 | ESPR_ITS ---
<Statement entered by Emely Price MD - 06/26/24 08:57> TOTAL CC TIME: 35 MIN I saw and evaluated the patient. I reviewed the resident?s note and agree with findings and plan as documented in the resident?s note. Upon my evaluation, this patient had a high probability of imminent or life- threatening deterioration due to acute hypoxic resp failure which required my direct attention, intervention, and personal management. This time is exclusive of time spent on procedures, which are documented separately if performed. family updated again no fevers finishing course of abx and steroids discussed trach with Dr. Ryan - pt Ve still high - would be best to hyperventilate immediately prior to trach to provide pH buffer titrating enteral sedation to help wean off IV sedation as pt will need to [facility] terminal care facility once stable to transfer Documentation for date of: 06/22/24 Subjective Subjective Interval history: 06/19/2024; Patient was seen and examined by bedside, no acute overnight events reported, remains intubated and mechanically ventilated, vitals stable with mildly elevated BP 150/70, HR 86, CBC/CMP noted for significant improvement in LFTs, and hypophosphatemia, ABG this AM noted for improvement in respiratory acidosis, pCO2 63, pO2 66. Continuing patient on sedation with RAAS goal of -4, will likely delay tracheostomy placement for a few days as patient continues to have high respiratory rate. Continue patient on current regimen of Linezolid for VRE, Bactrim, Micafungin, and Methylprednisolone for PCP, discontinue Meropenem as patient has been afebrile for few days, HAART for HIV. Tube feeding were resumed today for patient as they were previously held during pronation. 06/20/2024: The patient was examined and evaluated at the bedside, no acute overnight events, continues to be intubated and mechanically ventilated, vitals were significant for respiratory rate of 34, CBC at baseline with improving LFTs. Labs significant for hypophosphatemia of 1.4, ABG pH 7.36, pCO2 74, pO2 55, PEEP 8 and FiO2 35. Patient underwent trial of cutting down on sedation by discontinuing fentanyl, did not tolerate well and we will continue on propofol and fentanyl. IV methylprednisone was switched to decreased dose of oral prednisone. We will continue with linezolid for VRE, Bactrim, micafungin and methylprednisone for PCP pneumonia and continue HAART for HIV. We will again attempt a trial of weaning of sedation tomorrow. 06/21/2024: The patient was examined and evaluated at the bedside. No acute overnight events, continues to be intubated and mechanically ventilated, vitals still significant for RR 34-35, CBC at baseline with improving LFT. ABG revealed improvement on pCO2 and pO2. Chemistry panel with sodium 132, phosphorus 2.2 which were repleted. Overnight, ventilator setting was changed and tidal volume was increased to 450, FiO2 increased to 50. This morning, we reverted back tidal volume to 400 cc and FiO2 to 40%. We started the patient on internal sedatives with phenobarbital 60 Mg 3 times daily, clonazepam 1 Mg 3 times daily and oxycodone 10 Mg 3 times daily to decrease from IV sedation, as previous attempt to wean off IV sedation were unsuccessful. General surgeon Dr. Ryan was consulted, who will perform tracheostomy on 06/23/2024. 06/22/2024: The patient was examined and evaluated at the bedside this morning. No acute overnight events. His vitals were significant for RR 30-32, tidal volume set at 400 cc, FiO2 to 40%. Labs significant for hemoglobin 7.9, pCO2 trending down to 57, pO2 60 bicarb 40. Sodium 132, potassium 3.7, bicarb 36.8 and phosphorus 2.1. AST/ALT trending down triglyceride 195. Electrolytes were repleted. C. difficile toxin was negative. We increased the dose of phenobarbital to 90 Mg 3 times daily, clonazepam 2 Mg 3 times daily and we will continue with oxycodone 10 mg 3 times daily to bridge the IV sedation to interval sedation. We are weaning off of IV sedation. The patient is supposed to get tracheostomy done on 06/23/2024. Exam Vital Signs Temp Pulse Resp BP Pulse Ox O2 Del Method O2 Flow Rate 97.5 F 90 34 H 107/52 L 99 Mechanical Ventilation 40 06/22/24 12:00 06/22/24 14:17 06/21/24 18:31 06/22/24 14:17 06/22/24 14:17 06/22/24 04:00 06/09/24 12:16 FiO2 45 06/22/24 14:17 Narrative Exam GEN: Critically ill, not acutely distressed, sedated and intubated. Neuro: Deferred due to sedation. HEENT: NCAT, trachea midline, moist mucous membranes, ET tube in place, PO tube noted. CVS: RRR, S1S2 present, no M/R/G. No JVD Respi: Mechanically ventilated, b/l breath sounds heard with diffuse rhonchi, no wheezing/crackles. ABD: Soft, no grimace to palpation, bowel sounds present in all 4 quadrants. Skin: warm, dry and intact. Extremities: Pulses 2+ in all extremities, RUE edema Objective Labs 06/22/24 04:47 06/22/24 04:47 Labs: Laboratory Results - last 24 hr 06/04/24 06/21/24 06/22/24 09:56 18:30 04:18 WBC RBC Hgb Hct MCV MCH MCHC RDW Std Deviation Plt Count Neut % (Auto) Lymph % (Auto) [place] % (Auto) Eos % (Auto) Baso % (Auto) Neut # (Auto) Lymph # (Auto) [place] # (Auto) Eos # (Auto) Baso # (Auto) Immature Gran # (Auto) Absolute Nucleated RBC Immature Gran % Nucleated RBC % APTT Puncture Site Arterial Line ABG pH 7.45 ABG pCO2 57 H ABG pO2 60 L D ABG HCO3 40 H ABG O2 Saturation 91 ABG Base Excess 14 H FiO2 40 Sodium Potassium Chloride Carbon Dioxide Anion Gap BUN Creatinine Estim Creat Clear Calc eGFR BUN/Creatinine Ratio Glucose Calculated Osmolality Calcium Corrected Calcium Phosphorus Magnesium Total Bilirubin AST ALT Alkaline Phosphatase Total Protein Albumin Globulin Albumin/Globulin Ratio Triglycerides Stl C. diff Tox B Gene Negative Misc Test Result See Sep Rpt 06/22/24 04:47 WBC 5.2 RBC 3.29 L Hgb 7.9 L Hct 25.0 L MCV 76 L MCH 24.0 L MCHC 31.6 RDW Std Deviation 53.0 H Plt Count 163 Neut % (Auto) 81 H Lymph % (Auto) 3 L [place] % (Auto) 2 Eos % (Auto) 13 H Baso % (Auto) 0 Neut # (Auto) 4.2 Lymph # (Auto) 0.2 L [place] # (Auto) 0.1 Eos # (Auto) 0.7 H Baso # (Auto) 0.0 Immature Gran # (Auto) 0.04 H Absolute Nucleated RBC 0.04 H Immature Gran % 1 H Nucleated RBC % 1 H APTT 50.5 H Puncture Site ABG pH ABG pCO2 ABG pO2 ABG HCO3 ABG O2 Saturation ABG Base Excess FiO2 Sodium 132 L Potassium 3.7 Chloride 92 L Carbon Dioxide 36.8 H Anion Gap 3 L BUN 13 Creatinine 0.5 L Estim Creat Clear Calc 164.1 eGFR > 60 BUN/Creatinine Ratio 26 H Glucose 87 Calculated Osmolality 263 L Calcium 8.1 L Corrected Calcium 8.9 Phosphorus 2.1 L Magnesium 1.8 Total Bilirubin 0.3 AST 102 H ALT 116 H Alkaline Phosphatase 157 H Total Protein 5.6 L Albumin 3.0 L Globulin 2.6 Albumin/Globulin Ratio 1.2 Triglycerides 195 H Stl C. diff Tox B Gene Misc Test Result ABG Interpretation ABG results: 05/27/24 05/29/24 05/29/24 23:37 10:44 22:08 ABG pH 7.51 H 7.50 H 7.48 H ABG pCO2 28 L 32 32 ABG pO2 75 L 79 L 145 H D ABG HCO3 23 25 24 ABG O2 Saturation 96 95 98 ABG Base Excess 0 2 1 05/30/24 05/31/24 06/04/24 08:45 04:54 02:10 ABG pH 7.47 H 7.45 7.45 ABG pCO2 35 38 36 ABG pO2 86 D 82 L 139 H ABG HCO3 26 26 25 ABG O2 Saturation 97 96 98 ABG Base Excess 2 2 1 06/04/24 06/05/24 06/05/24 18:16 11:36 12:59 ABG pH 7.44 7.11 L* D 7.20 L ABG pCO2 36 94 H* D 68 H D ABG pO2 80 L D 150 H D 121 H D ABG HCO3 24 30 H 26 ABG O2 Saturation 94 97 97 ABG Base Excess 0 -2 -3 06/05/24 06/06/24 06/06/24 19:25 04:13 15:27 ABG pH 7.22 L 7.27 L 7.30 L ABG pCO2 64 H 57 H 60 H ABG pO2 122 H 153 H D 74 L D ABG HCO3 26 26 29 H ABG O2 Saturation 97 99 H 92 ABG Base Excess -3 -2 2 06/07/24 06/07/24 06/08/24 03:55 09:59 04:20 ABG pH 7.41 D 7.43 7.45 ABG pCO2 56 H 55 H 50 H ABG pO2 293 H D 78 L D 75 L ABG HCO3 36 H 37 H 35 H ABG O2 Saturation 99 H 95 94 ABG Base Excess 10 H 11 H 10 H 06/08/24 06/08/24 06/08/24 11:05 11:50 13:18 ABG pH 7.17 L* D 7.10 L* 7.15 L* ABG pCO2 95 H* D 115 H* D 88 H* D ABG pO2 89 75 L 72 L ABG HCO3 34 H 36 H 31 H ABG O2 Saturation 92 84 L 85 L ABG Base Excess 3 4 H 0 06/08/24 06/09/24 06/09/24 17:02 01:33 03:15 ABG pH 7.18 L* 7.22 L 7.27 L ABG pCO2 50 H D 91 H* D 82 H* ABG pO2 82 L 105 D 86 ABG HCO3 19 L 37 H 38 H ABG O2 Saturation 93 97 95 ABG Base Excess -9 L 7 H 9 H 06/09/24 06/09/24 06/10/24 05:08 12:52 04:40 ABG pH 7.31 L 7.33 L 7.30 L ABG pCO2 75 H* 57 H D 78 H* D ABG pO2 97 158 H D 65 L D ABG HCO3 38 H 30 H 38 H ABG O2 Saturation 97 99 H 90 L ABG Base Excess 10 H 3 9 H 06/10/24 06/11/24 06/12/24 09:40 04:19 04:15 ABG pH 7.27 L 7.35 7.48 H D ABG pCO2 88 H* D 86 H* 63 H D ABG pO2 65 L 70 L 76 L ABG HCO3 40 H 48 H 47 H ABG O2 Saturation 89 L 93 95 ABG Base Excess 10 H 19 H 21 H 06/13/24 06/14/24 06/15/24 07:22 04:32 03:45 ABG pH 7.46 H 7.48 H 7.46 H ABG pCO2 56 H 40 D 37 ABG pO2 80 L 64 L 71 L ABG HCO3 39 H 30 H 27 H ABG O2 Saturation 95 92 94 ABG Base Excess 13 H 6 H 3 11/27/24 11/27/24 11/27/24 10:17 12:20 14:20 ABG pH 7.01 L* D 7.00 L* 7.03 L* ABG pCO2 122 H* D 130 H* 125 H* ABG pO2 91 D 88 82 L ABG HCO3 31 H 32 H 33 H ABG O2 Saturation 88 L 88 L 87 L ABG Base Excess -3 -2 -1 06/15/24 06/15/24 06/16/24 15:55 20:39 00:35 ABG pH 7.03 L* 7.08 L* 7.10 L* ABG pCO2 121 H* 116 H* 118 H* ABG pO2 99 117 H 102 ABG HCO3 32 H 34 H 37 H ABG O2 Saturation 93 97 96 ABG Base Excess -1 2 4 H 06/16/24 06/16/24 06/17/24 04:45 08:55 05:06 ABG pH 7.17 L* 7.28 L D 7.33 L ABG pCO2 112 H* 88 H* D 96 H* ABG pO2 155 H D 98 D 126 H D ABG HCO3 41 H 41 H 50 H ABG O2 Saturation 99 H 98 99 H ABG Base Excess 9 H 12 H 21 H 06/17/24 06/17/24 06/18/24 10:58 13:55 04:16 ABG pH 7.29 L 7.29 L 7.33 L ABG pCO2 106 H* D 106 H* 86 H* D ABG pO2 58 L* D 61 L 77 L ABG HCO3 51 H 51 H 45 H ABG O2 Saturation 87 L 88 L 95 ABG Base Excess 21 H 21 H 17 H 06/19/24 06/20/24 06/21/24 04:18 04:49 04:06 ABG pH 7.42 7.36 7.44 ABG pCO2 63 H D 74 H* D 61 H D ABG pO2 66 L 55 L* 202 H D ABG HCO3 41 H 42 H 42 H ABG O2 Saturation 93 87 L 100 H ABG Base Excess 15 H 14 H 16 H 06/22/24 04:18 ABG pH 7.45 ABG pCO2 57 H ABG pO2 60 L D ABG HCO3 40 H ABG O2 Saturation 91 ABG Base Excess 14 H Quality Measures Quality Measures sepsis Current suspected stage: sepsis Possible source: pulmonary, GI tract/intra-abdominal, genitourinary and skin/soft tissue Blood cultures ordered: yes Antibiotic ordered: Yes Assessment & Plan Assessment Current Active Medications: Generic Name Dose Route Start Last Admin Trade Name Freq PRN Reason Stop Dose Admin Acetaminophen 975 mg 06/09/24 14:27 06/15/24 02:56 Acetaminophen Munira 325 Mg/10 Ml Udc PO 06/26/24 12:10 975 mg Q6H PRN Administration Pain 1-3 and Fever >101.5 Albuterol/Ipratropium 3 ml 06/05/24 11:40 06/09/24 22:18 Albuterol/Ipratropium (Duoneb) Rt Munira 3 Ml Nebu INH 07/05/24 14:59 3 ml Q4HRRT PRN Administration Wheezing Artificial Tears 1 drop 06/18/24 12:00 06/22/24 12:36 Artificial Tears 225 Drop/15 Ml Btl BOTH EYES 07/18/24 11:59 1 drop QID JUAN JOSE Administration Bisacodyl 5 mg 06/14/24 17:15 06/22/24 08:06 Bisacodyl 5 Mg Tabec PO 07/14/24 17:14 5 mg QDAY JUAN JOSE Administration Protocol Clonazepam 2 mg 06/22/24 14:00 06/22/24 14:10 Clonazepam 0.5 Mg Tablet GT 06/27/24 13:59 2 mg TID JUAN JOSE Administration Dextrose 25 ml 06/06/24 08:20 Dextrose 50%-Water Inj 50 Ml Syringe IV 07/06/24 08:19 Q15MIN PRN BG 50-70 responsive npo pt Dextrose 50 ml 06/06/24 08:20 Dextrose 50%-Water Inj 50 Ml Syringe IV 07/06/24 08:19 Q15MIN PRN BG <50 OR BG <70 & pt unresponsive Docusate Sodium 100 mg 06/22/24 09:00 06/22/24 08:21 Docusate Sod Liqd 100 Mg/10 Ml Udc PO 07/22/24 08:59 100 mg BID JUAN JOSE Administration Protocol Emtricitabine/Tenofovir 1 tab 06/16/24 12:30 06/22/24 08:13 Emtricitabine 200 Mg/Tenofovir 300 Mg Tab (Non-Form) PO 07/16/24 12:29 1 tab QDAY JUAN JOSE Administration Glucagon 1 mg 06/06/24 08:20 Glucagon Inj 1 Mg Vial IM Q15MIN PRN BG <70, and no IV access Micafungin Sodium 100 mg/ 100 mls @ 100 mls/hr 06/09/24 09:00 06/22/24 10:05 Sodium Chloride IV 06/24/24 08:59 100 mls/hr QDAY JUAN JOSE Administration Heparin Sodium/Dextrose 25,000 unit in 250 mls @ 13.608 mls/hr 06/15/24 14:45 06/22/24 12:36 Heparin In D5w Ivpb IV 06/29/24 14:44 Not Given .[id number] JUAN JOSE Protocol 18 UNITS/KG/HR Midazolam HCl 100 mg in 100 mls @ 1 mls/hr 06/18/24 11:14 06/22/24 06:00 Versed Pf Inj In Ns Premix IV 06/23/24 11:13 1 mg/hr .Q24H PRN 1 mls/hr PER PROTOCOL Titration Protocol 1 MG/HR Propofol 1,000 mg in 100 mls @ 2.487 mls/hr 06/18/24 12:17 06/22/24 14:09 Diprivan Ivpb IV 07/09/24 14:25 40 mcg/kg/min .Q24H PRN 19.896 mls/hr PER PROTOCOL Administration Protocol 5 MCG/KG/MIN Fentanyl Citrate 2,500 mcg in 250 mls @ 20 mls/hr 06/20/24 07:00 06/22/24 08:00 Sublimaze Inj 2,500 Mcg/250 Ml Bag IV 06/25/24 06:59 200 mcg/hr .[id number] PRN 20 mls/hr PER PROTOCOL Administration Protocol 200 MCG/HR Ondansetron HCl 4 mg 05/29/24 21:51 06/04/24 17:44 Ondansetron Inj 2 Mg/Ml Inj 2 Ml IV 06/28/24 21:50 4 mg Q6HR PRN Administration NAUSEA OR VOMITING Protocol Oxycodone HCl 10 mg 06/21/24 18:00 06/22/24 14:10 Oxycodone Hcl 5 Mg Ir Tab GT 06/26/24 17:59 10 mg TID JUAN JOSE Administration Pantoprazole Sodium 40 mg 06/06/24 09:00 06/22/24 08:07 Pantoprazole Inj 40 Mg Vial IVP 07/06/24 08:59 40 mg QDAY JUAN JOSE Administration Patiromer 8.4 gm 06/09/24 10:45 06/22/24 08:20 Patiromer Calcium 8.4 Gm Packet (Non-Form) NG 07/09/24 10:44 8.4 gm QDAY JUAN JOSE Administration Phenobarbital 90 mg 06/22/24 14:00 06/22/24 14:22 Phenobarbital Elix 20 Mg/5 Ml Udc GT 07/06/24 13:59 90 mg TID JUAN JOSE Administration Polyethylene Glycol 17 gm 06/14/24 17:15 06/22/24 08:12 Polyethylene Glycol 17 Gm Packet PO 07/14/24 17:14 17 gm QDAY JUAN JOSE Administration Potassium Phos/Sodium Phos 1 packet 06/22/24 15:57 06/22/24 15:00 [facility] 1 Packet (1.5 Gm) PO 06/22/24 15:58 1 packet X1 ONE Administration Prednisone 20 mg 06/21/24 09:00 06/22/24 08:06 Prednisone 20 Mg Tablet PO 07/21/24 08:59 20 mg QDAY JUAN JOSE Administration Quetiapine Fumarate 25 mg 06/13/24 21:00 06/21/24 20:57 Quetiapine Fumarate 25 Mg Tablet PO 07/13/24 20:59 25 mg HS JUAN JOSE Administration Raltegravir 400 mg 06/16/24 12:30 06/22/24 08:12 Raltegravir 100 Mg Chew (Non-Form) NG 06/23/24 12:29 400 mg BID JUAN JOSE Administration Sennosides 1 tab 06/11/24 09:00 06/22/24 08:12 Senna Tablet PO 07/11/24 08:59 1 tab QDAY JUAN JOSE Administration Protocol Trimethoprim/Sulfamethoxazole 40 ml 06/22/24 12:00 06/22/24 13:29 Trimethoprim 40 Mg/Sulfa 200 Mg Susp 5 Ml PO 06/29/24 11:59 40 ml QID JUAN JOSE Administration Plan 39-year-old male patient with no PMHx who initially presented to [facility] (Former[facility]) on 05/27/2024 with a chief complaint of shortness of breath and cough, with associated chills, body aches, generalized weakness, fever, and night sweats beginning weeks prior but progressively worsening over a few days. ED work-up revealed extensive bilateral diffuse infiltrate, patient met 4/4 SIRS, was requiring 4L O2, and was subsequently admitted for acute hypoxic respiratory failure secondary to bilateral community-acquired pneumonia of unknown etiology. Procal was only slightly elevated at 0.61 and he was first empirically treated with levofloxacin from 05/27-05/29 for suspicion of atypical pneumonia and fluconazole for cocci coverage. Patient quickly progressed to requiring Hi-Flow oxygen and had multiple rapid response alerts for increasing oxygen requirements and recurrent fevers. He was monitored in ICU from 05/30- 05/31, at that time started on steroids and antibiotics were escalated to azithromycin, doxycycline, and Zosyn as well as high dose steroids. He seemed to have improved and was downgraded at that time without needing intubation. ID and Pulmonology were consulted, and the patient was started on Bactrim to cover pneumocystis pneumonia. Several tests which had been sent were negative, including Cocci IgM and IgG, Legionella, and all blood, urine, sputum cultures had been negative at that point. HIV test was reported to be a preliminary positive, and sent out for confirmation studies but result had significant delay. Patient had reported a single sexual partner with his fiance for the last 5 years, last contact few weeks before admission, and denied IV drug usage. He did endorse 1 pack per day smoking history since teenage years, and occasional alcohol and marijuana. He had tattoos done as a young teenager, none recent. He had history of temporary incarceration. After the downgrade, patient developed worsening dyspnea on movement, desaturation, and complaints of work of breathing despite Hi-Flow at 100% FiO2. He was upgraded to ICU again on 06/05 for intubation and bronchoscopy, which showed normal-appearing mucosa, and BAL sample was sent for culture and cytology. Patient was given paralysis and managed with vent settings for ARDS. At this point, autoimmune studies including Rh factor, DANIEL, ANCA, Anti-proteinase 3, Anti-myeloperoxidase, Complement C3/C4c all returned negative. Absolute CD4 count was low at 116. On 06/07, in light of still unconfirmed diagnosis and critical status, patient's named [id number] and decision-maker, sister Francesca, was asked to bring forward any other additional history about patient's substance use, particularly any vape pens or supplements/substances he may have used to investigate for possible Vape-Associated Lung Injury. Sister brought in patient's bag of belongings from home containing vials of trenbolone (anabolic steroid) and testosterone and needles, which sister reports may have been purchased from [facility]. There were additional male enhancement supplements, synthetic urine kit, marijuana wax pen, and cigarette boxes. 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 On 06/08, HIV viral load came back at 5,660,000 copies. HIV 1 antibody was positive. HIV 2 negative. On 06/09, patient was started on antiretrovirals, Truvada and raltegravir. Patient also started having significant hyperkalemia, requiring multiple pushes of insulin, calcium gluconate, and kayexylate, eventually needing dialysis on 06/06, 06/08, and 06/09. Suspected Bactrim adverse effect, Bactrim was continued however to treat PCP. Patient has continued on mechanical ventilation. While he initially succeeded at weaning to spontaneous mode with Pressure Support of 8, FiO2 40% on sedation, it has been a challenge to wean sedation off successfully. Patient would become increasingly tachypneic, with work of breathing and desaturation, and has been unable have sedation low enough to follow commands, eye track, or make purposeful movements. On 06/15, patient had spiked fevers, WBC worsened, and patient had tachypneia again with worsening respiratory acidosis. Patient was proned. PE was suspected and heparin drip was started. ET sputum culture from 06/09 grew VRE enterococcus casseliflavus therefore linezolid and meropenem was started, Zosyn was discontinued. Patient is planned for tracheostomy on 06/21/2024 (Day 17 of intubation) if unable to wean from the vent. 06/22/2024: The patient was examined and evaluated at the bedside this morning. No acute overnight events. His vitals were significant for RR 30-32, tidal volume set at 400 cc, FiO2 to 40%. Labs significant for hemoglobin 7.9, pCO2 trending down to 57, pO2 60 bicarb 40. Sodium 132, potassium 3.7, bicarb 36.8 and phosphorus 2.1. AST/ALT trending down triglyceride 195. Electrolytes were repleted. C. difficile toxin was negative. We increased the dose of phenobarbital to 90 Mg 3 times daily, clonazepam 2 Mg 3 times daily and we will continue with oxycodone 10 mg 3 times daily to bridge the IV sedation to interval sedation. We are weaning off of IV sedation. The patient is supposed to get tracheostomy done on 06/23/2024. NEURO #Acute encephalopathy, secondary to prolonged sedation 06/05/2024 Patient was intubated, sedated, and paralyzed for ARDS. Prior to intubation, patient was awake, alert, and oriented x3, following commands, conversational. Plan: -Goal sedation: RASS -4, as he did not tolerated decreasing the sedation -We will start the sedation bridge with enteral sedation with Phenobarb 60 Mg 3 times daily, clonazepam 1 Mg 3 times daily, and oxycodone 10 Mg 3 times daily -Fentanyl at 200 mcg/hr -Propofol at 40 mcg/kg/min -Midazolam 4 mg IV prn for breakthrough agitation #Fever---Resolved CARDIO #Right upper extremity DVT. -Doppler US right upper extremity 06/17/24: revealed RUE DVT -On Heparin Drip #Sinus tachycardia---Resolved. Tachycardia most likely secondary to respiratory distress and agitation / AHRF 06/15: Possible new sepsis? Patient with new fevers, increased tachypneia. Low threshold of suspicion for PE, therefore heparin drip was started 06/15. Plan: -Continuous telemetry -Continue sedation with RASS goal -4 for now -CTPA negative for PE 06/16/24 #Septic shock, resolved Secondary to severe extensive bilateral pneumonia. Patient was on norepinephrine 06/06-06/10. Currently off pressors. 06/06/2024 Echo was read EF 55-60% 06/09/2024 Blood cultures negative 06/09/2024 Urine culture negative 06/09/2024 ET culture POSITIVE for Staph haemolyticus, Entercoccus casseliflavus vancomycin-resistant PULM #Acute hypoxic respiratory failure Secondary to #Bilateral pneumocystis jirovecii pneumonia #Healthcare associated pneumonia #Ventilator associated pneumonia Patient presented with dyspnea and cough, requiring 4L NC on first ED evaluation, and history of chills, body aches, generalized weakness, fever, and night sweats progressively worsening over the prior weeks. Approx 20-pack year smoking history, occasional marijuana. 06/17/2024 oxygenation and hypercapnia improved, was put in supine position, continued to be paralyzed. 06/18/2024 paralytic was discontinued, the plan is to continue with sedation until the tracheostomy placement, possible tracheostomy on 06/23/24 Plan: -Ventilation on volume control, saturation to be maintained >90%, PEEP at 8, RR 30, FiO2 at 35% wean if tolerated -Continue Bactrim 06/01/24 - completed on 06/22/24, but extended as per ID -Discontinued Zosyn 05/30/24-06/15/24 -Started meropenem 1000 mg q8h 06/15/24-Discontinued 06/19/24 -Started linezolid 600 mg q12h 06/15/24-06/22/24 -Continue micafungin 100 mg qday 06/09/24- -Fungal cultures from BAL pending -DuoNebs q4h as needed -New blood cultures sent 06/15?negative for growth -New ET culture sent 06/15?negative for growth - #ARDS Patient continues to have increased oxygen demands with worsening bilateral infiltrates on CXR. Will maintain ARDS ventilation protocol. 06/08/24 P:F ratio 89/1=89. Severe ARDS. 06/20/24: P:F ratio 151, moderate ARDS Plan: -VC overnight, maintain PEEP 8, FiO2 to maintain saturation 92% -Maintain peak plateau <30 -Follow up ABG -Prednisone 20mg qday. GI Prophylaxis: Pantoprazole 40 mg IV qday #Elevated LFTs, improving Likely due to propofol and bactrim. Mildly elevated, liver US 05/30/2024 showed normal gallbladder and hepatomegaly without lesions or evidence of obstructions. Hep panel negative. LFTs downtrended compared to 06/06/24. 06/15/2024 Floyd in LFTs with AST 303, ALT 420, Tbili 1.3, therefore right upper quadrant US ordered, negative for cholecystitis/cholelithiasis, hepatitis panel negative. No obvious changes on physical exam. 06/20/24: LFT AST/ALT/ALP : 99/123/118 Plan: -Continue monitoring NEPHRO #Hypophosphatemia #WILL, resolved #Mild hyponatremia---Resolved #Hyperkalemia---Resolved #Hyperphosphatemia, resolved Ddx: Prerenal WILL due to hypotension vs possible rhabdomyolysis vs drug toxicity (zosyn, vancomycin, bactrim) Unlikely rhabdomyolysis, CK was 511 06/06, did not uptrend. Urine output is >100 ml/hr, urine is yellow and clear. Possible underlying SIADH. Potassium 06/11/24 4.4. Plan: -Continue Veltassa 8.4 gm qday for potassium chelation -Nephrology Dr. Song is following for as-needed dialysis due to hyperkalemia -Continue free water at 40 ml/hr -Maintain euvolemia -Monitor CMP, especially potassium -Replete electrolytes as needed. #Primary respiratory acidosis compensated by metabolic alkalosis ABGs are showing acidemia with elevation of pCO2, indicative of primary respiratory acidosis. There is an underlying metabolic alkalosis due to the given bicarb being greater than the expected compensatory bicarb. pH 7.36, pCO2 74. pO2 55 Plan: -Bicarb drip was discontinued 06/17 -Follow-up lactate was normal -As per Pulm HEME #Leukocytosis, resolved Fluctuating WBC. In the setting of likely infection, inflammation, and corticosteroids. Plan: -Treatment of pneumonia as above #Microcytic anemia 2/2 STEPHY and Inflammatory anemia Stable, has not required any transfusions this admission thus far. Clinically no evidence of bleeding. Iron panel shows iron 17, TIBC 262, iron saturation 6, unsaturated iron binding 245. Peripheral blood film confirms microcytic hypochromic anemia with target cells. Also daily lab draws contributing. Plan: -Monitor H&H. Transfusing for Hgb <7 #Thrombocytosis, resolved Likely reactive. -Continue to monitor ENDO #No active problems -Blood glucose on chemistry panels in acceptable range ID #Bilateral pneumocystis pneumonia #Healthcare associated pneumonia #Ventilator associated pneumonia Negative studies: Cocci IgM and IgG, Hepatitis panel, Syphilis, Legionella, H.flu, N.meningitidis, Strep B, Strep pneumoniae, COVID, RSV, Flu A & B. TB quantiferon GOLD-indeterminate, however 06/05 AFB negative, CMV IgM, cryptococcal antigen negative. G6PD levels came back normal for consideration of dapsone alternative to Bactrim if needed. Patient completed 5 day course of azithromycin, 16 days of Zosyn. See Pulm for timeline of antimicrobial coverage. Plan: -Antibiotcs as above -Fungal cultures from BAL pending -New blood cultures sent 06/15?negative for growth -New ET culture sent 06/15?negative for growth #AIDS/HIV Patient has Stage 4 HIV, AIDS-defining illness with opportunistic infection. 06/07/2024 Bronchoalveolar lavage cytology shows Pneumocystis jirovecii. Also other fungi, possibly Kassandra. Kassandra is most likely a contaminant. Blood xqed-[id number]-ntahmr also positive. 06/08/2024 HIV quant 5.66 million copies. HIV 1 positive confirmed. 06/09/2024 Patient's decision maker, Francesca, was informed of diagnosis due to critical state of patient. Absolute CD4 count 87 and 22% on 06/02. History/risk factors: History of injection anabolic androgenic steroid and testosterone use, possible unclean needles. History of incarceration (unknown time). Tattoos received as a teenager. Has 1 female sexual partner last 5 years, denies others. -Continue HAART: emtricitabine / tenofovir (Truvada) and raltegravir initiated 06/09/24 -Patient is not aware of his diagnosis as he has been intubated and sedated before results returned. Will require complete education and counseling on the disease if his mental status and clinical condition improves. MSK #Elevated creatine kinase -Down trended SKIN #No active problems DVT prophylaxis: Lovenox 40 subQ qday GI prophylaxis: Pantoprazole 40 mg IV qday Diet: Tube feeds Nepro Tijerina: Present (06/05- ) Lines: Peripheral IV, radial arterial line. Antibiotics: Bactrim, micafungin CODE STATUS: FULL CODE Reason for ICU care: Acute hypoxic respiratory failure secondary to bilateral pneumonia/ARDS Patient plan of care was discussed with the attending physician, Dr. Price. Jeff Pacheco MD, PGY2
--- NOTE | 2024-06-22 16:16 | PD.IDPROG ---
Subjective Subjective Interval history: had 21d bactrim and some steroids. is on rx for hiv. trach pending. we usually do not repeat the VL for 2-3 mo. and same for cd4 changed bactrim to daily, this should help the k as that was a problem before I am told. Exam Vital Signs Temp Pulse Resp BP Pulse Ox O2 Del Method O2 Flow Rate 97.5 F 90 34 H 107/52 L 99 Mechanical Ventilation 40 06/22/24 12:00 06/22/24 14:17 06/21/24 18:31 06/22/24 14:17 06/22/24 14:17 06/22/24 04:00 06/09/24 12:16 FiO2 45 06/22/24 14:17 Narrative Exam 45% on vent. meds noted. trach planned Objective - Internal Medicine Labs 06/22/24 04:47 06/22/24 04:47 Labs: Laboratory Results - last 24 hr 06/04/24 06/21/24 06/22/24 09:56 18:30 04:18 WBC RBC Hgb Hct MCV MCH MCHC RDW Std Deviation Plt Count Neut % (Auto) Lymph % (Auto) [place] % (Auto) Eos % (Auto) Baso % (Auto) Neut # (Auto) Lymph # (Auto) [place] # (Auto) Eos # (Auto) Baso # (Auto) Immature Gran # (Auto) Absolute Nucleated RBC Immature Gran % Nucleated RBC % APTT Puncture Site Arterial Line ABG pH 7.45 ABG pCO2 57 H ABG pO2 60 L D ABG HCO3 40 H ABG O2 Saturation 91 ABG Base Excess 14 H FiO2 40 Sodium Potassium Chloride Carbon Dioxide Anion Gap BUN Creatinine Estim Creat Clear Calc eGFR BUN/Creatinine Ratio Glucose Calculated Osmolality Calcium Corrected Calcium Phosphorus Magnesium Total Bilirubin AST ALT Alkaline Phosphatase Total Protein Albumin Globulin Albumin/Globulin Ratio Triglycerides Stl C. diff Tox B Gene Negative Misc Test Result See Sep Rpt 06/22/24 04:47 WBC 5.2 RBC 3.29 L Hgb 7.9 L Hct 25.0 L MCV 76 L MCH 24.0 L MCHC 31.6 RDW Std Deviation 53.0 H Plt Count 163 Neut % (Auto) 81 H Lymph % (Auto) 3 L Garvin % (Auto) 2 Eos % (Auto) 13 H Baso % (Auto) 0 Neut # (Auto) 4.2 Lymph # (Auto) 0.2 L Garvin # (Auto) 0.1 Eos # (Auto) 0.7 H Baso # (Auto) 0.0 Immature Gran # (Auto) 0.04 H Absolute Nucleated RBC 0.04 H Immature Gran % 1 H Nucleated RBC % 1 H APTT 50.5 H Puncture Site ABG pH ABG pCO2 ABG pO2 ABG HCO3 ABG O2 Saturation ABG Base Excess FiO2 Sodium 132 L Potassium 3.7 Chloride 92 L Carbon Dioxide 36.8 H Anion Gap 3 L BUN 13 Creatinine 0.5 L Estim Creat Clear Calc 164.1 eGFR > 60 BUN/Creatinine Ratio 26 H Glucose 87 Calculated Osmolality 263 L Calcium 8.1 L Corrected Calcium 8.9 Phosphorus 2.1 L Magnesium 1.8 Total Bilirubin 0.3 AST 102 H ALT 116 H Alkaline Phosphatase 157 H Total Protein 5.6 L Albumin 3.0 L Globulin 2.6 Albumin/Globulin Ratio 1.2 Triglycerides 195 H Stl C. diff Tox B Gene Misc Test Result ABG Interpretation ABG results: 05/27/24 05/29/24 05/29/24 23:37 10:44 22:08 ABG pH 7.51 H 7.50 H 7.48 H ABG pCO2 28 L 32 32 ABG pO2 75 L 79 L 145 H D ABG HCO3 23 25 24 ABG O2 Saturation 96 95 98 ABG Base Excess 0 2 1 05/30/24 05/31/24 06/04/24 08:45 04:54 02:10 ABG pH 7.47 H 7.45 7.45 ABG pCO2 35 38 36 ABG pO2 86 D 82 L 139 H ABG HCO3 26 26 25 ABG O2 Saturation 97 96 98 ABG Base Excess 2 2 1 06/04/24 06/05/24 06/05/24 18:16 11:36 12:59 ABG pH 7.44 7.11 L* D 7.20 L ABG pCO2 36 94 H* D 68 H D ABG pO2 80 L D 150 H D 121 H D ABG HCO3 24 30 H 26 ABG O2 Saturation 94 97 97 ABG Base Excess 0 -2 -3 06/05/24 06/06/24 06/06/24 19:25 04:13 15:27 ABG pH 7.22 L 7.27 L 7.30 L ABG pCO2 64 H 57 H 60 H ABG pO2 122 H 153 H D 74 L D ABG HCO3 26 26 29 H ABG O2 Saturation 97 99 H 92 ABG Base Excess -3 -2 2 06/07/24 06/07/24 06/08/24 03:55 09:59 04:20 ABG pH 7.41 D 7.43 7.45 ABG pCO2 56 H 55 H 50 H ABG pO2 293 H D 78 L D 75 L ABG HCO3 36 H 37 H 35 H ABG O2 Saturation 99 H 95 94 ABG Base Excess 10 H 11 H 10 H 06/08/24 06/08/24 06/08/24 11:05 11:50 13:18 ABG pH 7.17 L* D 7.10 L* 7.15 L* ABG pCO2 95 H* D 115 H* D 88 H* D ABG pO2 89 75 L 72 L ABG HCO3 34 H 36 H 31 H ABG O2 Saturation 92 84 L 85 L ABG Base Excess 3 4 H 0 06/08/24 06/09/24 06/09/24 17:02 01:33 03:15 ABG pH 7.18 L* 7.22 L 7.27 L ABG pCO2 50 H D 91 H* D 82 H* ABG pO2 82 L 105 D 86 ABG HCO3 19 L 37 H 38 H ABG O2 Saturation 93 97 95 ABG Base Excess -9 L 7 H 9 H 06/09/24 06/09/24 06/10/24 05:08 12:52 04:40 ABG pH 7.31 L 7.33 L 7.30 L ABG pCO2 75 H* 57 H D 78 H* D ABG pO2 97 158 H D 65 L D ABG HCO3 38 H 30 H 38 H ABG O2 Saturation 97 99 H 90 L ABG Base Excess 10 H 3 9 H 06/10/24 06/11/24 06/12/24 09:40 04:19 04:15 ABG pH 7.27 L 7.35 7.48 H D ABG pCO2 88 H* D 86 H* 63 H D ABG pO2 65 L 70 L 76 L ABG HCO3 40 H 48 H 47 H ABG O2 Saturation 89 L 93 95 ABG Base Excess 10 H 19 H 21 H 06/13/24 06/14/24 06/15/24 07:22 04:32 03:45 ABG pH 7.46 H 7.48 H 7.46 H ABG pCO2 56 H 40 D 37 ABG pO2 80 L 64 L 71 L ABG HCO3 39 H 30 H 27 H ABG O2 Saturation 95 92 94 ABG Base Excess 13 H 6 H 3 06/15/24 06/15/24 06/15/24 10:17 12:20 14:20 ABG pH 7.01 L* D 7.00 L* 7.03 L* ABG pCO2 122 H* D 130 H* 125 H* ABG pO2 91 D 88 82 L ABG HCO3 31 H 32 H 33 H ABG O2 Saturation 88 L 88 L 87 L ABG Base Excess -3 -2 -1 06/15/24 06/15/24 06/16/24 15:55 20:39 00:35 ABG pH 7.03 L* 7.08 L* 7.10 L* ABG pCO2 121 H* 116 H* 118 H* ABG pO2 99 117 H 102 ABG HCO3 32 H 34 H 37 H ABG O2 Saturation 93 97 96 ABG Base Excess -1 2 4 H 06/16/24 06/16/24 06/17/24 04:45 08:55 05:06 ABG pH 7.17 L* 7.28 L D 7.33 L ABG pCO2 112 H* 88 H* D 96 H* ABG pO2 155 H D 98 D 126 H D ABG HCO3 41 H 41 H 50 H ABG O2 Saturation 99 H 98 99 H ABG Base Excess 9 H 12 H 21 H 06/17/24 06/17/24 06/18/24 10:58 13:55 04:16 ABG pH 7.29 L 7.29 L 7.33 L ABG pCO2 106 H* D 106 H* 86 H* D ABG pO2 58 L* D 61 L 77 L ABG HCO3 51 H 51 H 45 H ABG O2 Saturation 87 L 88 L 95 ABG Base Excess 21 H 21 H 17 H 06/19/24 06/20/24 06/21/24 04:18 04:49 04:06 ABG pH 7.42 7.36 7.44 ABG pCO2 63 H D 74 H* D 61 H D ABG pO2 66 L 55 L* 202 H D ABG HCO3 41 H 42 H 42 H ABG O2 Saturation 93 87 L 100 H ABG Base Excess 15 H 14 H 16 H 06/22/24 04:18 ABG pH 7.45 ABG pCO2 57 H ABG pO2 60 L D ABG HCO3 40 H ABG O2 Saturation 91 ABG Base Excess 14 H Assessment & Plan A&P Narrative pneumonia. cocci neg. procal not neg.pjp on bal noted. hiv. infection, newly discovered in a heterosexual man. can not r/o ivdu resp failure, hypoxic jo ann, resolved. acute febrile illness. cause uncertain. he has hiv, gf needs to be tested. ok for hiv rx as ordered.changed bactrim to once daily. As noted before, not every one survives, he is only 39, but is newly discovered to have a very bad disease that is easier to manage if caught earlier. ok to maintain steroid rxn. for now. repeat cx noted. ok to be off flucon as cd4 >100 and crypto ag neg. will be away a few days, so if questions arise, please text me. ok to wean steroids to off in about a week from now. ok to be on hiv rx. will have to notify pt when he is awake. be sure that gf is tested as precaution. Time Spent With Patient Time: Total time spent is greater than 50% in coordination of care (as documented) at patient's floor/unit and/or counseling patient:
[2024-06-22] MEDS: QUEtiapine FUMARATE 25 MG TABLET PO (21:19)
[2024-06-23] VITALS (43 sets, daily range): BP systolic 84–200; BP diastolic 40–110; PULSE 83–104; RESP 8–43; TEMP 36.5–37.3; O2SAT 95–100; BMI 27.5
[2024-06-23] MEDS: PROPOFOL 1,000 MG IVPB 1,000 MG/100 ML VIAL 19.896 MG IV (01:39)
[2024-06-23 04:43] LABS: Base Excess 13 (-3-3); HCO3 38 mEq/L (20-26); O2 Saturation 99 % (91-98); PCO2 53 mmHg (32.0-48.0); PO2 99 mmHg (83-108); pH, Arterial 7.46 (7.35-7.45)
[2024-06-23 04:46] LABS: Allen Test Not Performed; Inspired Oxygen, FIO2 45 %; Puncture Site Left Radial
[2024-06-23] MEDS: clonazePAM 0.5 MG TABLET 2 MG GT ×3 (05:38→21:08)
[2024-06-23] MEDS: Artificial Tears 225 DROP/15 ML BTL BOTH EYES ×4 (05:39→20:48)
[2024-06-23] MEDS: oxyCODONE HCL 5 MG IR TAB 10 MG GT ×3 (05:39→21:08)
[2024-06-23] MEDS: PHENOBARBITAL ELIX 20 MG/5 ML 90 MG GT ×3 (05:39→21:08)
[2024-06-23 06:09] LABS: Basophils % (Auto) 0 % (0-2.5); Eosinophils # (Auto) 0.7 Thou/mm3 (0.0-0.5); Eosinophils % (Auto) 15 % (0-10); Hematocrit 22.3 % (41.0-53.0); Immature Granulocytes % (Auto) 1 % (0-0); Immature Granulocytes Auto 0.06 Thou/mm3 (0.00-0.00); Lymphocytes # (Auto) 0.3 Thou/mm3 (1.0-4.8); Lymphocytes % (Auto) 6 % (10-50); Mean Corpuscular HGB Conc 31.4 g/dl (31.0-37.0); Mean Corpuscular Hemoglobin 23.8 pg (25.0-35.0); Mean Corpuscular Volume 76 fL (80-100); Monocytes # (Auto) 0.2 Thou/mm3 (0.0-0.8); Monocytes % (Auto) 3 % (0-12); Neutrophils # (Auto) 3.6 Thou/mm3 (1.8-7.7); Neutrophils % (Auto) 75 % (37-80); Nucleated Red Blood Cell # 0.05 Thou/mm3 (0.00-0.00); Nucleated Red Blood Cell % 1 /100 WBC (0); Platelet Count 180 Thou/mm3 (140-440); RDW Standard Deviation 57.1 fL (35.1-43.9); Red Blood Count 2.94 Miln/mm3 (4.50-5.90); White Blood Count 4.8 Thou/mm3 (3.8-10.6)
[2024-06-23 06:27] LABS: Alanine Aminotransferase 124 U/L (10-49); Albumin, Serum 2.9 gm/dL (3.5-5.0); Albumin/Globulin Ratio 1.2 (1.2-2.2); Alkaline Phosphatase 172 U/L (46-116); Anion Gap 3 (7-16); Aspartate Amino Transferase 107 U/L (0-34); BUN/Creatinine Ratio 22 Ratio (12-20); Bilirubin,Total 0.3 mg/dL (0.3-1.2); Blood Urea Nitrogen 13 mg/dL (9-23); Calcium 8.1 mg/dL (8.3-10.6); Carbon Dioxide 36.1 mMol/L (20.0-31.0); Chloride 93 mMol/L (98-107); Creatinine (Component) 0.6 mg/dL (0.6-1.3); Estimated Creatinine Clearance 136.2 mL/min (>60); Globulin 2.5 gm/dL (2.3-3.5); Glucose 77 mg/dL (74-106); Osmolality,Calculated 263 (275-295); Potassium 3.8 mMol/L (3.4-5.1); Sodium 132 mMol/L (136-145); Total Protein 5.4 gm/dL (5.7-8.2); Triglycerides 205 mg/dL (30-150); eGFR > 60 See Note
[2024-06-23] MEDS: PROPOFOL 1,000 MG IVPB 1,000 MG/100 ML VIAL 14.922 MG IV (08:24)
[2024-06-23] MEDS: MIDAZOLAM/NS 100 MG IVPB 100 MG/100 ML BAG IV (08:27)
[2024-06-23 08:32] LABS: Magnesium 1.7 mg/dL (1.6-2.6); Phosphorous 1.8 mg/dL (2.4-5.1)
[2024-06-23] MEDS: predniSONE 20 MG TABLET PO (08:49)
[2024-06-23] MEDS: EMTRICITABINE 200 MG/TENOFOVIR 300 MG TAB (NON-FORM) 1 TAB PO (08:49)
[2024-06-23] MEDS: PATIROMER CALCIUM 8.4 GM PACKET (NON-FORM) NG (08:49)
[2024-06-23] MEDS: [UNRECOGNIZED DRUG - REMARK] 400 MG NG (08:49)
[2024-06-23] MEDS: PANTOPRAZOLE INJ 40 MG VIAL IVP (08:49)
[2024-06-23] MEDS: NAPH,KPH MBDB 1 PACKET (1.5 GM) PO (08:56)
[2024-06-23] MEDS: TRIMETHOPRIM PO (09:40)
[2024-06-23] MEDS: SULFAMETHOXAZOLE PO (09:40)
[2024-06-23] MEDS: QUEtiapine FUMARATE 25 MG TABLET 75 MG PO ×2 (09:42→20:49)
--- NOTE | 2024-06-23 09:52 | PD.RESPRO ---
Documentation for date of: 06/23/24 Subjective Subjective Interval history: Patient seen and examined. Sedated and intubated. No acute events overnight. Plan for trach for today. Exam Vital Signs Temp Pulse Resp BP Pulse Ox O2 Del Method O2 Flow Rate 99.0 F 93 37 H 127/55 L 97 Mechanical Ventilation 40 06/23/24 08:00 06/23/24 08:00 06/22/24 18:31 06/23/24 08:00 06/23/24 08:00 06/23/24 04:00 06/09/24 12:16 FiO2 35 06/23/24 08:00 Narrative Exam GEN: Critically ill, not acutely distressed, sedated and intubated. Neuro: Deferred due to sedation. HEENT: NCAT, trachea midline, moist mucous membranes, ET tube in place, PO tube noted. CVS: RRR, S1S2 present, no M/R/G. No JVD Respi: Mechanically ventilated, b/l breath sounds heard with diffuse rhonchi, no wheezing/crackles. ABD: Soft, no grimace to palpation, bowel sounds present in all 4 quadrants. Skin: warm, dry and intact. Extremities: Pulses 3+ in all extremities, RUE edema, vesicles 1-2 cm on the forearm surface. Objective Labs 06/25/24 05:04 06/25/24 05:04 Labs: Laboratory Results - last 24 hr 06/23/24 06/23/24 04:24 04:29 WBC 4.8 RBC 2.94 L Hgb 7.0 L Hct 22.3 L MCV 76 L MCH 23.8 L MCHC 31.4 RDW Std Deviation 57.1 H Plt Count 180 Neut % (Auto) 75 Lymph % (Auto) 6 L [place] % (Auto) 3 Eos % (Auto) 15 H Baso % (Auto) 0 Neut # (Auto) 3.6 Lymph # (Auto) 0.3 L [place] # (Auto) 0.2 Eos # (Auto) 0.7 H Baso # (Auto) 0.0 Immature Gran # (Auto) 0.06 H Absolute Nucleated RBC 0.05 H Immature Gran % 1 H Nucleated RBC % 1 H Puncture Site Left Radial ABG pH 7.46 H ABG pCO2 53 H ABG pO2 99 D ABG HCO3 38 H ABG O2 Saturation 99 H ABG Base Excess 13 H FiO2 45 Sodium 132 L Potassium 3.8 Chloride 93 L Carbon Dioxide 36.1 H Anion Gap 3 L BUN 13 Creatinine 0.6 Estim Creat Clear Calc 136.2 eGFR > 60 BUN/Creatinine Ratio 22 H Glucose 77 Calculated Osmolality 263 L Calcium 8.1 L Corrected Calcium 9.0 Phosphorus 1.8 L Magnesium 1.7 Total Bilirubin 0.3 AST 107 H ALT 124 H Alkaline Phosphatase 172 H Total Protein 5.4 L Albumin 2.9 L Globulin 2.5 Albumin/Globulin Ratio 1.2 Triglycerides 205 H ABG Interpretation ABG results: 05/27/24 05/29/24 05/29/24 23:37 10:44 22:08 ABG pH 7.51 H 7.50 H 7.48 H ABG pCO2 28 L 32 32 ABG pO2 75 L 79 L 145 H D ABG HCO3 23 25 24 ABG O2 Saturation 96 95 98 ABG Base Excess 0 2 1 05/30/24 05/31/24 06/04/24 08:45 04:54 02:10 ABG pH 7.47 H 7.45 7.45 ABG pCO2 35 38 36 ABG pO2 86 D 82 L 139 H ABG HCO3 26 26 25 ABG O2 Saturation 97 96 98 ABG Base Excess 2 2 1 06/04/24 06/05/24 06/05/24 18:16 11:36 12:59 ABG pH 7.44 7.11 L* D 7.20 L ABG pCO2 36 94 H* D 68 H D ABG pO2 80 L D 150 H D 121 H D ABG HCO3 24 30 H 26 ABG O2 Saturation 94 97 97 ABG Base Excess 0 -2 -3 06/05/24 06/06/24 06/06/24 19:25 04:13 15:27 ABG pH 7.22 L 7.27 L 7.30 L ABG pCO2 64 H 57 H 60 H ABG pO2 122 H 153 H D 74 L D ABG HCO3 26 26 29 H ABG O2 Saturation 97 99 H 92 ABG Base Excess -3 -2 2 06/07/24 06/07/24 06/08/24 03:55 09:59 04:20 ABG pH 7.41 D 7.43 7.45 ABG pCO2 56 H 55 H 50 H ABG pO2 293 H D 78 L D 75 L ABG HCO3 36 H 37 H 35 H ABG O2 Saturation 99 H 95 94 ABG Base Excess 10 H 11 H 10 H 06/08/24 06/08/24 06/08/24 11:05 11:50 13:18 ABG pH 7.17 L* D 7.10 L* 7.15 L* ABG pCO2 95 H* D 115 H* D 88 H* D ABG pO2 89 75 L 72 L ABG HCO3 34 H 36 H 31 H ABG O2 Saturation 92 84 L 85 L ABG Base Excess 3 4 H 0 06/08/24 06/09/24 06/09/24 17:02 01:33 03:15 ABG pH 7.18 L* 7.22 L 7.27 L ABG pCO2 50 H D 91 H* D 82 H* ABG pO2 82 L 105 D 86 ABG HCO3 19 L 37 H 38 H ABG O2 Saturation 93 97 95 ABG Base Excess -9 L 7 H 9 H 06/09/24 06/09/24 06/10/24 05:08 12:52 04:40 ABG pH 7.31 L 7.33 L 7.30 L ABG pCO2 75 H* 57 H D 78 H* D ABG pO2 97 158 H D 65 L D ABG HCO3 38 H 30 H 38 H ABG O2 Saturation 97 99 H 90 L ABG Base Excess 10 H 3 9 H 06/10/24 06/11/24 06/12/24 09:40 04:19 04:15 ABG pH 7.27 L 7.35 7.48 H D ABG pCO2 88 H* D 86 H* 63 H D ABG pO2 65 L 70 L 76 L ABG HCO3 40 H 48 H 47 H ABG O2 Saturation 89 L 93 95 ABG Base Excess 10 H 19 H 21 H 06/13/24 06/14/24 06/15/24 07:22 04:32 03:45 ABG pH 7.46 H 7.48 H 7.46 H ABG pCO2 56 H 40 D 37 ABG pO2 80 L 64 L 71 L ABG HCO3 39 H 30 H 27 H ABG O2 Saturation 95 92 94 ABG Base Excess 13 H 6 H 3 06/15/24 06/15/24 06/15/24 10:17 12:20 14:20 ABG pH 7.01 L* D 7.00 L* 7.03 L* ABG pCO2 122 H* D 130 H* 125 H* ABG pO2 91 D 88 82 L ABG HCO3 31 H 32 H 33 H ABG O2 Saturation 88 L 88 L 87 L ABG Base Excess -3 -2 -1 06/15/24 06/15/24 06/16/24 15:55 20:39 00:35 ABG pH 7.03 L* 7.08 L* 7.10 L* ABG pCO2 121 H* 116 H* 118 H* ABG pO2 99 117 H 102 ABG HCO3 32 H 34 H 37 H ABG O2 Saturation 93 97 96 ABG Base Excess -1 2 4 H 06/16/24 06/16/24 06/17/24 04:45 08:55 05:06 ABG pH 7.17 L* 7.28 L D 7.33 L ABG pCO2 112 H* 88 H* D 96 H* ABG pO2 155 H D 98 D 126 H D ABG HCO3 41 H 41 H 50 H ABG O2 Saturation 99 H 98 99 H ABG Base Excess 9 H 12 H 21 H 06/17/24 06/17/24 06/18/24 10:58 13:55 04:16 ABG pH 7.29 L 7.29 L 7.33 L ABG pCO2 106 H* D 106 H* 86 H* D ABG pO2 58 L* D 61 L 77 L ABG HCO3 51 H 51 H 45 H ABG O2 Saturation 87 L 88 L 95 ABG Base Excess 21 H 21 H 17 H 06/19/24 06/20/24 06/21/24 04:18 04:49 04:06 ABG pH 7.42 7.36 7.44 ABG pCO2 63 H D 74 H* D 61 H D ABG pO2 66 L 55 L* 202 H D ABG HCO3 41 H 42 H 42 H ABG O2 Saturation 93 87 L 100 H ABG Base Excess 15 H 14 H 16 H 06/22/24 06/23/24 04:18 04:29 ABG pH 7.45 7.46 H ABG pCO2 57 H 53 H ABG pO2 60 L D 99 D ABG HCO3 40 H 38 H ABG O2 Saturation 91 99 H ABG Base Excess 14 H 13 H Quality Measures Quality Measures sepsis Current suspected stage: ruled out Possible source: pulmonary, GI tract/intra-abdominal, genitourinary and skin/soft tissue Blood cultures ordered: yes Antibiotic ordered: Yes Assessment & Plan Assessment Current Active Medications: Generic Name Dose Route Start Last Admin Trade Name Freq PRN Reason Stop Dose Admin Acetaminophen 975 mg 06/09/24 14:27 06/15/24 02:56 Acetaminophen Munira 325 Mg/10 Ml Udc PO 06/26/24 12:10 975 mg Q6H PRN Administration Pain 1-3 and Fever >101.5 Albuterol/Ipratropium 3 ml 06/05/24 11:40 06/09/24 22:18 Albuterol/Ipratropium (Duoneb) Rt Munira 3 Ml Nebu INH 07/05/24 14:59 3 ml Q4HRRT PRN Administration Wheezing Artificial Tears 1 drop 06/18/24 12:00 06/23/24 05:39 Artificial Tears 225 Drop/15 Ml Btl BOTH EYES 07/18/24 11:59 1 drop QID JUAN JOSE Administration Bisacodyl 5 mg 06/14/24 17:15 06/23/24 08:54 Bisacodyl 5 Mg Tabec PO 07/14/24 17:14 Not Given QDAY [facility] Protocol Clonazepam 2 mg 06/22/24 14:00 06/23/24 05:38 Clonazepam 0.5 Mg Tablet GT 06/27/24 13:59 2 mg TID JUAN JOSE Administration Dextrose 25 ml 06/06/24 08:20 Dextrose 50%-Water Inj 50 Ml Syringe IV 07/06/24 08:19 Q15MIN PRN BG 50-70 responsive npo pt Dextrose 50 ml 06/06/24 08:20 Dextrose 50%-Water Inj 50 Ml Syringe IV 07/06/24 08:19 Q15MIN PRN BG <50 OR BG <70 & pt unresponsive Docusate Sodium 100 mg 06/22/24 09:00 06/23/24 08:54 Docusate Sod Liqd 100 Mg/10 Ml Udc PO 07/22/24 08:59 Not Given BID JUAN JOSE Protocol Emtricitabine/Tenofovir 1 tab 06/16/24 12:30 06/23/24 08:49 Emtricitabine 200 Mg/Tenofovir 300 Mg Tab (Non-Form) PO 07/16/24 12:29 1 tab QDAY JUAN JOSE Administration Ferrous Sulfate 325 mg 06/23/24 10:00 Ferrous Sulf 325 Mg Tablet PO 07/23/24 09:59 QDAY JUAN JOSE Glucagon 1 mg 06/06/24 08:20 Glucagon Inj 1 Mg Vial IM Q15MIN PRN BG <70, and no IV access Heparin Sodium/Dextrose 25,000 unit in 250 mls @ 13.608 mls/hr 06/15/24 14:45 06/23/24 06:00 Heparin In D5w Ivpb IV 06/29/24 14:44 0 units/kg/hr .[id number] JUAN JOSE 0 mls/hr Titration Protocol 18 UNITS/KG/HR Midazolam HCl 100 mg in 100 mls @ 1 mls/hr 06/18/24 11:14 06/23/24 08:27 Versed Pf Inj In Ns Premix IV 06/23/24 11:13 1 mg/hr .Q24H PRN 1 mls/hr PER PROTOCOL Administration Protocol 1 MG/HR Propofol 1,000 mg in 100 mls @ 2.487 mls/hr 06/18/24 12:17 06/23/24 08:24 Diprivan Ivpb IV 07/09/24 14:25 30 mcg/kg/min .Q24H PRN 14.922 mls/hr PER PROTOCOL Administration Protocol 5 MCG/KG/MIN Fentanyl Citrate 2,500 mcg in 250 mls @ 20 mls/hr 06/20/24 07:00 06/23/24 06:00 Sublimaze Inj 2,500 Mcg/250 Ml Bag IV 06/25/24 06:59 200 mcg/hr .[id number] PRN 20 mls/hr PER PROTOCOL Titration Protocol 200 MCG/HR Ondansetron HCl 4 mg 05/29/24 21:51 06/04/24 17:44 Ondansetron Inj 2 Mg/Ml Inj 2 Ml IV 06/28/24 21:50 4 mg Q6HR PRN Administration NAUSEA OR VOMITING Protocol Oxycodone HCl 10 mg 06/21/24 18:00 06/23/24 05:39 Oxycodone Hcl 5 Mg Ir Tab GT 06/26/24 17:59 10 mg TID JUAN JOSE Administration Pantoprazole Sodium 40 mg 06/06/24 09:00 06/23/24 08:49 Pantoprazole Inj 40 Mg Vial IVP 07/06/24 08:59 40 mg QDAY JUAN JOSE Administration Patiromer 8.4 gm 06/09/24 10:45 12/05/24 08:49 Patiromer Calcium 8.4 Gm Packet (Non-Form) NG 07/09/24 10:44 8.4 gm QDAY JUAN JOSE Administration Phenobarbital 90 mg 06/22/24 14:00 06/23/24 05:39 Phenobarbital Elix 20 Mg/5 Ml Udc GT 07/06/24 13:59 90 mg TID JUAN JOSE Administration Polyethylene Glycol 17 gm 06/14/24 17:15 06/23/24 08:54 Polyethylene Glycol 17 Gm Packet PO 07/14/24 17:14 Not Given QDAY JUAN JOSE Prednisone 20 mg 06/21/24 09:00 06/23/24 08:49 Prednisone 20 Mg Tablet PO 07/21/24 08:59 20 mg QDAY JUAN JOSE Administration Quetiapine Fumarate 75 mg 06/23/24 09:45 06/23/24 09:42 Quetiapine Fumarate 25 Mg Tablet PO 07/23/24 09:44 75 mg BID JUAN JOSE Administration Raltegravir 400 mg 06/16/24 12:30 06/23/24 08:49 Raltegravir 100 Mg Chew (Non-Form) NG 06/23/24 12:29 400 mg BID JUAN JOSE Administration Sennosides 1 tab 06/11/24 09:00 06/23/24 08:55 Senna Tablet PO 07/11/24 08:59 Not Given QDAY JUAN JOSE Protocol Trimethoprim/Sulfamethoxazole 20 ml 06/23/24 09:00 06/23/24 09:40 Trimethoprim/Sulfa Susp 1 Ml PO 06/22/25 12:00 20 ml QDAY JUAN JOSE Administration Plan #Metabolic alkalosis, primary #Acute respiratory acidosis, secondary #Hypophoshatemia #Hypomagnesemia, improved #Hyperkalemia, resolved Likely 2/2 to lung injury (increased Vd) due to severe ARDS 2/2 PJP in the setting of AIDS bicarb 39.2, phos low, nl mag, K normal good UOP pending tracheostomy Plan: -cont vent settings -veltassa -monior electrolytes, UOP - Patient's care was discussed with my attending physician, Dr. Duncan Awan MD Internal Medicine PGY-3 Attending Provider Attestation/Addendum Agree with assessment and plan and findings. Seen and examined. labs reviewed. Plan discussed with resident. Teo Song MD
[2024-06-23 10:01] LABS: Band Neutrophils (Manual) 1 % (0-6); Eosinophils (Manual) 13 % (0-4); Lymphocytes (Manual) 7 % (20-44); Monocytes (Manual) 6 % (2-9); Neutrophils (Manual) 73 % (50-70)
[2024-06-23 10:02] LABS: Giant Platelets Rare
[2024-06-23] MEDS: FERROUS SULF 325 MG TABLET PO (10:07)
--- NOTE | 2024-06-23 13:43 | PD.SUROPNT ---
Date of Procedure 06/23/24 Pre Op Diagnosis Respiratory failure with hypoxia Post Op Diagnosis Respiratory failure with hypoxia Procedure Tracheostomy with size 8 cuffed Findings No significant amount of tracheal secretions Procedure Description Patient brought into the operating room in supine position. After administration of general endotracheal anesthesia, patient's neck was extended, prepped and draped in standard surgical manner. An approximately 3 cm semicircular incision was made approximately 2 fingerbreadths above the sternal notch. Dissection was carried to subcutaneous tissue and platysma was divided. Median raphae was identified and excised. The thyroid tissue overlying the trachea was divided and suture ligated on both sides. The trachea was then cleared from overlying tissue. 2 tacking sutures using 2-0 Prolene placed around the third tracheal rings on both sides. An approximately 1 cm tracheotomy was performed at the level of second tracheal ring in the was extended distally. The anesthesiologist was instructed to pull the orotracheal tube until the tip was just beyond the tracheotomy site. Once this was done a size 8 extra long tracheostomy was placed through the tracheotomy site and the cuff was inflated. The tracheostomy was then connected to the ventilator where patient was being ventilated without difficulty with normal end tidal CO2. The tracheostomy site was then suctioned with minimal amount of tracheal secretions noted. Hemostasis was adequate and satisfactory. Appropriate sterile dressings applied. The tacking sutures were secured on patient's chest with Steri-Strips. A Velcro was placed around the patient's neck to further secure the tracheostomy. Patient tolerated the procedure well. He remained hemodynamically stable and transferred to the intensive care unit. Instruments, needles and sponge counts were reported to be correct ?2. Anesthesia GETA and local Pathology / specimen None Estimated Blood Loss 2 Condition Stable Disposition PACU Surgeon Justin Ryan MD Surgical Staff Operation Date: 06/23/24 14:45 <No data on this case meets the specified criteria>
--- NOTE | 2024-06-23 15:02 | PD.INTPROG ---
Documentation for date of: 06/23/24 Subjective Subjective Interval history: This is a 39-year-old male who presented to the ER on 27 May. Initially he presented for shortness of breath cough and general malaise. Apparently he had been feeling unwell for the last 2 to 3 weeks. He did have some nonproductive cough. Chest x-ray showed bilateral diffuse infiltrates and the medicine team was contacted. He was admitted to the floor and placed on high flow nasal cannula initially at 100% FiO2 and started on antibiotics. He was started on fluconazole as well as Levaquin given that there was a high suspicion for underlying cocci pneumonia. He has had 2 rapid responses over the last 48 hours due to hypoxia and desatting. The patient is able to tolerate minimal movements prior to desatting. Today the ICU is consulted for further evaluation. The patient is currently on 80% FiO2 he is awake alert and oriented. He states that he has shortness of breath however minimal cough. He does complain of some upper abdominal/lower rib pain which he attributes to his recent cough. He denies any chest pain. Does note that he has had some night sweats and fever over the last several days. There has been no significant improvement since arrival 3 days ago. His respiratory status remains unchanged if not slightly worse. He is currently on isolation with airborne precautions behind a closed door. At this point in time due to an abundance of caution as well as closer observation and monitoring we will transfer to the ICU for ongoing management of his acute hypoxic respiratory failure. I did discuss with the patient the probable need for intubation in the near future. He is okay with intubation 05/31- no acute overnight events, decrease in FiO2 needs, feels better with less WOB today, afebrile, 06/05-patient had been returned to the floor where initially he did well. Apparently over the last 24 to 36 hours he has had an increase in FiO2 requirements with a rapid response called last night. Rapid response called again this morning. Patient stated that he felt tired and unable to keep up. He is on 100% FiO2. He desats with minimal exertion. The decision was made to bring him to the ICU for intubation. This was discussed with the patient while he was awake and his family as well. 06/06- overnight pt remained on NMB, versed/prop/fent. brisk UOP >100cc/hr , afebrile, labs this AM showed a K of 7.8 for which he received insulin/Ca/D50/kayexolate 06/07-patient underwent dialysis yesterday for refractory hyperkalemia, he remains on deep sedation however off of propofol and off of paralytic. Continues with a good urinary output. Afebrile, have been able to come down on his FiO2 however persistent bilateral infiltrates severe on exam without conclusive underlying etiology as of this point in time. 06/08-no acute overnight events, this a.m. attempted to decrease sedation however patient became agitated and desatted. Required increased to 100% FiO2. When patient was suctioned blood was returned from the ET tube. Patient required paralytic and bagging in order to improve his sats. 06/23-has had a prolonged hospital course thus far. Was unable to be weaned from the vent. He was scheduled for tracheostomy today which took place with Dr Ryan. His Versed drip was stopped today. He remains on propofol and fentanyl. He is on multiple p.o. medications for severe agitation. Net negative over the last 24 hours however net positive since hospital stay. Afebrile Critical Care Note Critical care time (min.): 40 Exam Vital Signs Temp Pulse Resp BP Pulse Ox O2 Del Method O2 Flow Rate 99.0 F 101 H 37 H 129/48 L 97 Mechanical Ventilation 40 06/23/24 08:00 06/23/24 10:29 06/22/24 18:31 06/23/24 10:29 06/23/24 10:29 06/23/24 04:00 06/09/24 12:16 FiO2 35 06/23/24 10:29 Narrative Exam Gen- intubated, sedated, nl body habitus HEENT- NC/AT, mucosa hydrated, scabs with mild bleeding over the lips, sclera anicteric, new trach in place Chest- diminished lung sounds, no crackles/no wheeze, HRRR, no increase in WOB Abd- s/nt/bs+ Ext- no edema, pulses palp, mult skin blisters that have burst over R forearm, no mottling, no clubbing Vent AC/VC Drips Fentanyl Propofol Physical Exam Completion Physical Exam Complete?: Yes 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 06/23/24 04:24 06/23/24 04:24 Labs: Laboratory Results - last 24 hr 06/23/24 06/23/24 04:24 04:29 WBC 4.8 RBC 2.94 L Hgb 7.0 L Hct 22.3 L MCV 76 L MCH 23.8 L MCHC 31.4 RDW Std Deviation 57.1 H Plt Count 180 Neut % (Auto) 75 Lymph % (Auto) 6 L [place] % (Auto) 3 Eos % (Auto) 15 H Baso % (Auto) 0 Neut # (Auto) 3.6 Lymph # (Auto) 0.3 L [place] # (Auto) 0.2 Eos # (Auto) 0.7 H Baso # (Auto) 0.0 Immature Gran # (Auto) 0.06 H Absolute Nucleated RBC 0.05 H Immature Gran % 1 H Neutrophils % (Manual) 73 H Monocytes % (Manual) 6 Eosinophils % (Manual) 13 H Nucleated RBC % 1 H Band Neutrophils 1 Lymphocytes (Manual) 7 L Morphology Comment Puncture Site Left Radial ABG pH 7.46 H ABG pCO2 53 H ABG pO2 99 D ABG HCO3 38 H ABG O2 Saturation 99 H ABG Base Excess 13 H FiO2 45 Sodium 132 L Potassium 3.8 Chloride 93 L Carbon Dioxide 36.1 H Anion Gap 3 L BUN 13 Creatinine 0.6 Estim Creat Clear Calc 136.2 eGFR > 60 BUN/Creatinine Ratio 22 H Glucose 77 Calculated Osmolality 263 L Calcium 8.1 L Corrected Calcium 9.0 Phosphorus 1.8 L Magnesium 1.7 Total Bilirubin 0.3 AST 107 H ALT 124 H Alkaline Phosphatase 172 H Total Protein 5.4 L Albumin 2.9 L Globulin 2.5 Albumin/Globulin Ratio 1.2 Triglycerides 205 H Assessment & Plan Problem List (1) Acute respiratory failure with hypoxia: Status: Acute Additional Assessment Additional Assessment: In brief this is a 39y M admitted for SOB and acute hypoxic resp failure with b/l PNA. 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 He was started on p.o. Seroquel and phenobarbital. He is also on Klonopin and oxycodone. 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 monitor - mild WILL- resolved GI Transaminitis- Hep viral panel is neg, - US shows some mild hepatomegaly - probable cholestasis GI proph- PPI Endo Hyperglycemia- 2/2 steroids, monitor Heme Microcytic Anemia-iron deficiency anemia -Slow drift downwards with hemoglobin of 7 today -Transfuse for hemoglobin less than 7 -Patient started on p.o. 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 These errors are purely grammatical due to imperfections in the software program and should not be construed in any way to compromise the substance of the patient's medical care during this visit. Thank you for the opportunity and privilege in assisting you with this patient's care and management.
--- NOTE | 2024-06-23 15:46 | XR_ITS ---
Examination: AP chest single view Technique one AP portable upright chest single view Exam date and time: 01/22/2024 1556 hours Comparison June 19, 2024 INDICATIONS: Post orogastric tube placement FINDINGS: Severe bilateral lung opacity Orogastric tube in stomach satisfactory position No free air IMPRESSION: The orogastric tube is in the stomach in satisfactory position
--- NOTE | 2024-06-23 17:38 | ESPR_ITS ---
Documentation for date of: 06/23/24 Subjective Subjective Interval history: 06/21/2024: The patient was examined and evaluated at the bedside. No acute overnight events, continues to be intubated and mechanically ventilated, vitals still significant for RR 34-35, CBC at baseline with improving LFT. ABG revealed improvement on pCO2 and pO2. Chemistry panel with sodium 132, phosphorus 2.2 which were repleted. Overnight, ventilator setting was changed and tidal volume was increased to 450, FiO2 increased to 50. This morning, we reverted back tidal volume to 400 cc and FiO2 to 40%. We started the patient on internal sedatives with phenobarbital 60 Mg 3 times daily, clonazepam 1 Mg 3 times daily and oxycodone 10 Mg 3 times daily to decrease from IV sedation, as previous attempt to wean off IV sedation were unsuccessful. General surgeon Dr. Ryan was consulted, who will perform tracheostomy on 06/23/2024. 06/22/2024: The patient was examined and evaluated at the bedside this morning. No acute overnight events. His vitals were significant for RR 30-32, tidal volume set at 400 cc, FiO2 to 40%. Labs significant for hemoglobin 7.9, pCO2 trending down to 57, pO2 60 bicarb 40. Sodium 132, potassium 3.7, bicarb 36.8 and phosphorus 2.1. AST/ALT trending down triglyceride 195. Electrolytes were repleted. C. difficile toxin was negative. We increased the dose of phenobarbital to 90 Mg 3 times daily, clonazepam 2 Mg 3 times daily and we will continue with oxycodone 10 mg 3 times daily to bridge the IV sedation to interval sedation. We are weaning off of IV sedation. The patient is supposed to get tracheostomy done on 06/23/2024. 06/23/2024: The patient was examined and evaluated at the bedside this morning. Overnight propofol was cut down from 40 mcg to 30 mcg, fentanyl from 200 to 175 mcg. Heart rate has been in the range of 90s with RR improving to 24-27. Physical exam was significant for blisters over right forearm, abrasion over lower lip, and onychomycosis of right big toe. Hemoglobin was 7.0 down from 7.9 yesterday, ABG revealed pH 7.46 with pCO2 53 and HCO3 38. Sodium stable about 132, chloride 93 and phosphorus 1.8. Neutra-Phos 1 packet was given. Liver enzymes downtrending and stable. Mild increase in triglyceride with level of 205. Exam Vital Signs Temp Pulse Resp BP Pulse Ox O2 Del Method O2 Flow Rate 98.9 F 101 H 24 H 173/96 H 95 Mechanical Ventilation 40 06/23/24 11:00 06/23/24 17:01 06/23/24 17:01 06/23/24 17:01 06/23/24 17:01 06/23/24 04:00 06/09/24 12:16 FiO2 50 06/23/24 16:00 Narrative Exam GEN: Critically ill, not acutely distressed, sedated and intubated. Neuro: Deferred due to sedation. HEENT: NCAT, tracheostomy tube on appropriate position, PO tube noted. CVS: RRR, S1S2 present, no M/R/G. No JVD Respi: Mechanically ventilated, b/l breath sounds heard with diffuse rhonchi, no wheezing/crackles. ABD: Soft, no grimace to palpation, bowel sounds present in all 4 quadrants. Skin: warm, dry and intact. Extremities: Pulses 2+ in all extremities, RUE edema, vesicles 1-2 cm on the rt forearm surface. Objective Labs 06/23/24 04:24 06/23/24 04:24 Labs: Laboratory Results - last 24 hr 06/23/24 06/23/24 04:24 04:29 WBC 4.8 RBC 2.94 L Hgb 7.0 L Hct 22.3 L MCV 76 L MCH 23.8 L MCHC 31.4 RDW Std Deviation 57.1 H Plt Count 180 Neut % (Auto) 75 Lymph % (Auto) 6 L Deuel % (Auto) 3 Eos % (Auto) 15 H Baso % (Auto) 0 Neut # (Auto) 3.6 Lymph # (Auto) 0.3 L Deuel # (Auto) 0.2 Eos # (Auto) 0.7 H Baso # (Auto) 0.0 Immature Gran # (Auto) 0.06 H Absolute Nucleated RBC 0.05 H Immature Gran % 1 H Neutrophils % (Manual) 73 H Monocytes % (Manual) 6 Eosinophils % (Manual) 13 H Nucleated RBC % 1 H Band Neutrophils 1 Lymphocytes (Manual) 7 L Morphology Comment Puncture Site Left Radial ABG pH 7.46 H ABG pCO2 53 H ABG pO2 99 D ABG HCO3 38 H ABG O2 Saturation 99 H ABG Base Excess 13 H FiO2 45 Sodium 132 L Potassium 3.8 Chloride 93 L Carbon Dioxide 36.1 H Anion Gap 3 L BUN 13 Creatinine 0.6 Estim Creat Clear Calc 136.2 eGFR > 60 BUN/Creatinine Ratio 22 H Glucose 77 Calculated Osmolality 263 L Calcium 8.1 L Corrected Calcium 9.0 Phosphorus 1.8 L Magnesium 1.7 Total Bilirubin 0.3 AST 107 H ALT 124 H Alkaline Phosphatase 172 H Total Protein 5.4 L Albumin 2.9 L Globulin 2.5 Albumin/Globulin Ratio 1.2 Triglycerides 205 H ABG Interpretation ABG results: 05/27/24 05/29/24 05/29/24 23:37 10:44 22:08 ABG pH 7.51 H 7.50 H 7.48 H ABG pCO2 28 L 32 32 ABG pO2 75 L 79 L 145 H D ABG HCO3 23 25 24 ABG O2 Saturation 96 95 98 ABG Base Excess 0 2 1 05/30/24 05/31/24 06/04/24 08:45 04:54 02:10 ABG pH 7.47 H 7.45 7.45 ABG pCO2 35 38 36 ABG pO2 86 D 82 L 139 H ABG HCO3 26 26 25 ABG O2 Saturation 97 96 98 ABG Base Excess 2 2 1 06/04/24 06/05/24 06/05/24 18:16 11:36 12:59 ABG pH 7.44 7.11 L* D 7.20 L ABG pCO2 36 94 H* D 68 H D ABG pO2 80 L D 150 H D 121 H D ABG HCO3 24 30 H 26 ABG O2 Saturation 94 97 97 ABG Base Excess 0 -2 -3 06/05/24 06/06/24 06/06/24 19:25 04:13 15:27 ABG pH 7.22 L 7.27 L 7.30 L ABG pCO2 64 H 57 H 60 H ABG pO2 122 H 153 H D 74 L D ABG HCO3 26 26 29 H ABG O2 Saturation 97 99 H 92 ABG Base Excess -3 -2 2 06/07/24 06/07/24 06/08/24 03:55 09:59 04:20 ABG pH 7.41 D 7.43 7.45 ABG pCO2 56 H 55 H 50 H ABG pO2 293 H D 78 L D 75 L ABG HCO3 36 H 37 H 35 H ABG O2 Saturation 99 H 95 94 ABG Base Excess 10 H 11 H 10 H 06/08/24 06/08/24 06/08/24 11:05 11:50 13:18 ABG pH 7.17 L* D 7.10 L* 7.15 L* ABG pCO2 95 H* D 115 H* D 88 H* D ABG pO2 89 75 L 72 L ABG HCO3 34 H 36 H 31 H ABG O2 Saturation 92 84 L 85 L ABG Base Excess 3 4 H 0 06/08/24 06/09/24 06/09/24 17:02 01:33 03:15 ABG pH 7.18 L* 7.22 L 7.27 L ABG pCO2 50 H D 91 H* D 82 H* ABG pO2 82 L 105 D 86 ABG HCO3 19 L 37 H 38 H ABG O2 Saturation 93 97 95 ABG Base Excess -9 L 7 H 9 H 06/09/24 06/09/24 06/10/24 05:08 12:52 04:40 ABG pH 7.31 L 7.33 L 7.30 L ABG pCO2 75 H* 57 H D 78 H* D ABG pO2 97 158 H D 65 L D ABG HCO3 38 H 30 H 38 H ABG O2 Saturation 97 99 H 90 L ABG Base Excess 10 H 3 9 H 06/10/24 06/11/24 06/12/24 09:40 04:19 04:15 ABG pH 7.27 L 7.35 7.48 H D ABG pCO2 88 H* D 86 H* 63 H D ABG pO2 65 L 70 L 76 L ABG HCO3 40 H 48 H 47 H ABG O2 Saturation 89 L 93 95 ABG Base Excess 10 H 19 H 21 H 06/13/24 06/14/24 06/15/24 07:22 04:32 03:45 ABG pH 7.46 H 7.48 H 7.46 H ABG pCO2 56 H 40 D 37 ABG pO2 80 L 64 L 71 L ABG HCO3 39 H 30 H 27 H ABG O2 Saturation 95 92 94 ABG Base Excess 13 H 6 H 3 06/15/24 06/15/24 06/15/24 10:17 12:20 14:20 ABG pH 7.01 L* D 7.00 L* 7.03 L* ABG pCO2 122 H* D 130 H* 125 H* ABG pO2 91 D 88 82 L ABG HCO3 31 H 32 H 33 H ABG O2 Saturation 88 L 88 L 87 L ABG Base Excess -3 -2 -1 06/15/24 06/15/24 06/16/24 15:55 20:39 00:35 ABG pH 7.03 L* 7.08 L* 7.10 L* ABG pCO2 121 H* 116 H* 118 H* ABG pO2 99 117 H 102 ABG HCO3 32 H 34 H 37 H ABG O2 Saturation 93 97 96 ABG Base Excess -1 2 4 H 06/16/24 06/16/24 06/17/24 04:45 08:55 05:06 ABG pH 7.17 L* 7.28 L D 7.33 L ABG pCO2 112 H* 88 H* D 96 H* ABG pO2 155 H D 98 D 126 H D ABG HCO3 41 H 41 H 50 H ABG O2 Saturation 99 H 98 99 H ABG Base Excess 9 H 12 H 21 H 06/17/24 06/17/24 06/18/24 10:58 13:55 04:16 ABG pH 7.29 L 7.29 L 7.33 L ABG pCO2 106 H* D 106 H* 86 H* D ABG pO2 58 L* D 61 L 77 L ABG HCO3 51 H 51 H 45 H ABG O2 Saturation 87 L 88 L 95 ABG Base Excess 21 H 21 H 17 H 06/19/24 06/20/24 06/21/24 04:18 04:49 04:06 ABG pH 7.42 7.36 7.44 ABG pCO2 63 H D 74 H* D 61 H D ABG pO2 66 L 55 L* 202 H D ABG HCO3 41 H 42 H 42 H ABG O2 Saturation 93 87 L 100 H ABG Base Excess 15 H 14 H 16 H 06/22/24 06/23/24 04:18 04:29 ABG pH 7.45 7.46 H ABG pCO2 57 H 53 H ABG pO2 60 L D 99 D ABG HCO3 40 H 38 H ABG O2 Saturation 91 99 H ABG Base Excess 14 H 13 H Quality Measures Quality Measures sepsis Current suspected stage: sepsis Possible source: pulmonary, GI tract/intra-abdominal, genitourinary and skin/soft tissue Blood cultures ordered: yes Antibiotic ordered: Yes Assessment & Plan Assessment Current Active Medications: Generic Name Dose Route Start Last Admin Trade Name Freq PRN Reason Stop Dose Admin Acetaminophen 975 mg 06/09/24 14:27 06/15/24 02:56 Acetaminophen Munira 325 Mg/10 Ml Udc PO 06/26/24 12:10 975 mg Q6H PRN Administration Pain 1-3 and Fever >101.5 Albuterol/Ipratropium 3 ml 06/05/24 11:40 06/09/24 22:18 Albuterol/Ipratropium (Duoneb) Rt Munira 3 Ml Nebu INH 07/05/24 14:59 3 ml Q4HRRT PRN Administration Wheezing Artificial Tears 1 drop 06/18/24 12:00 06/23/24 16:09 Artificial Tears 225 Drop/15 Ml Btl BOTH EYES 07/18/24 11:59 1 drop QID JUAN JOSE Administration Bisacodyl 5 mg 06/14/24 17:15 06/23/24 08:54 Bisacodyl 5 Mg Tabec PO 07/14/24 17:14 Not Given QDAY [facility] Protocol Clonazepam 2 mg 06/22/24 14:00 06/23/24 16:07 Clonazepam 0.5 Mg Tablet GT 06/27/24 13:59 2 mg TID JUAN JOSE Administration Dextrose 25 ml 06/06/24 08:20 Dextrose 50%-Water Inj 50 Ml Syringe IV 07/06/24 08:19 Q15MIN PRN BG 50-70 responsive npo pt Dextrose 50 ml 06/06/24 08:20 Dextrose 50%-Water Inj 50 Ml Syringe IV 07/06/24 08:19 Q15MIN PRN BG <50 OR BG <70 & pt unresponsive Docusate Sodium 100 mg 06/22/24 09:00 06/23/24 08:54 Docusate Sod Liqd 100 Mg/10 Ml Udc PO 07/22/24 08:59 Not Given BID JUAN JOSE Protocol Emtricitabine/Tenofovir 1 tab 06/16/24 12:30 06/23/24 08:49 Emtricitabine 200 Mg/Tenofovir 300 Mg Tab (Non-Form) PO 07/16/24 12:29 1 tab QDAY JUAN JOSE Administration Ferrous Sulfate 325 mg 06/23/24 10:00 06/23/24 10:07 Ferrous Sulf 325 Mg Tablet PO 07/23/24 09:59 325 mg QDAY JUAN JOSE Administration Glucagon 1 mg 06/06/24 08:20 Glucagon Inj 1 Mg Vial IM Q15MIN PRN BG <70, and no IV access Heparin Sodium/Dextrose 25,000 unit in 250 mls @ 13.608 mls/hr 06/15/24 14:45 06/23/24 06:00 Heparin In D5w Ivpb IV 06/29/24 14:44 0 units/kg/hr .[id number] JUAN JOSE 0 mls/hr Titration Protocol 18 UNITS/KG/HR Propofol 1,000 mg in 100 mls @ 2.487 mls/hr 06/18/24 12:17 06/23/24 17:21 Diprivan Ivpb IV 07/09/24 14:25 Infused .Q24H PRN Titration PER PROTOCOL Protocol 5 MCG/KG/MIN Fentanyl Citrate 2,500 mcg in 250 mls @ 20 mls/hr 06/20/24 07:00 06/23/24 17:00 Sublimaze Inj 2,500 Mcg/250 Ml Bag IV 06/25/24 06:59 Infused .[id number] PRN Titration PER PROTOCOL Protocol 200 MCG/HR Ondansetron HCl 4 mg 05/29/24 21:51 06/04/24 17:44 Ondansetron Inj 2 Mg/Ml Inj 2 Ml IV 06/28/24 21:50 4 mg Q6HR PRN Administration NAUSEA OR VOMITING Protocol Oxycodone HCl 10 mg 06/21/24 18:00 06/23/24 16:06 Oxycodone Hcl 5 Mg Ir Tab GT 06/26/24 17:59 10 mg TID JUAN JOSE Administration Pantoprazole Sodium 40 mg 06/06/24 09:00 06/23/24 08:49 Pantoprazole Inj 40 Mg Vial IVP 07/06/24 08:59 40 mg QDAY JUAN JOSE Administration Patiromer 8.4 gm 06/09/24 10:45 06/23/24 08:49 Patiromer Calcium 8.4 Gm Packet (Non-Form) NG 07/09/24 10:44 8.4 gm QDAY JUAN JOSE Administration Phenobarbital 90 mg 06/22/24 14:00 06/23/24 16:07 Phenobarbital Elix 20 Mg/5 Ml Udc GT 07/06/24 13:59 90 mg TID JUAN JOSE Administration Polyethylene Glycol 17 gm 06/14/24 17:15 06/23/24 08:54 Polyethylene Glycol 17 Gm Packet PO 07/14/24 17:14 Not Given QDAY JUAN JOSE Prednisone 20 mg 06/21/24 09:00 06/23/24 08:49 Prednisone 20 Mg Tablet PO 07/21/24 08:59 20 mg QDAY JUNA JOSE Administration Quetiapine Fumarate 75 mg 06/23/24 09:45 06/23/24 09:42 Quetiapine Fumarate 25 Mg Tablet PO 07/23/24 09:44 75 mg BID JUAN JOSE Administration Sennosides 1 tab 06/11/24 09:00 06/23/24 08:55 Senna Tablet PO 07/11/24 08:59 Not Given QDAY [facility] Protocol Trimethoprim/Sulfamethoxazole 20 ml 06/23/24 09:00 06/23/24 09:40 Trimethoprim/Sulfa Susp 1 Ml PO 06/22/25 12:00 20 ml QDAY JUAN JOSE Administration Plan 39-year-old male patient with no PMHx who initially presented to [facility] on 05/27/2024 with a chief complaint of shortness of breath and cough, with associated chills, body aches, generalized weakness, fever, and night sweats beginning weeks prior but progressively worsening over a few days. ED work-up revealed extensive bilateral diffuse infiltrate, patient met 4/4 SIRS, was requiring 4L O2, and was subsequently admitted for acute hypoxic respiratory failure secondary to bilateral community-acquired pneumonia of unknown etiology. Procal was only slightly elevated at 0.61 and he was first empirically treated with levofloxacin from 05/27-05/29 for suspicion of atypical pneumonia and fluconazole for cocci coverage. Patient quickly progressed to requiring Hi-Flow oxygen and had multiple rapid response alerts for increasing oxygen requirements and recurrent fevers. He was monitored in ICU from 05/30- 05/31, at that time started on steroids and antibiotics were escalated to azithromycin, doxycycline, and Zosyn as well as high dose steroids. He seemed to have improved and was downgraded at that time without needing intubation. ID and Pulmonology were consulted, and the patient was started on Bactrim to cover pneumocystis pneumonia. Several tests which had been sent were negative, including Cocci IgM and IgG, Legionella, and all blood, urine, sputum cultures had been negative at that point. HIV test was reported to be a preliminary positive, and sent out for confirmation studies but result had significant delay. Patient had reported a single sexual partner with his fiance for the last 5 years, last contact few weeks before admission, and denied IV drug usage. He did endorse 1 pack per day smoking history since teenage years, and occasional alcohol and marijuana. He had tattoos done as a young teenager, none recent. He had history of temporary incarceration. After the downgrade, patient developed worsening dyspnea on movement, desaturation, and complaints of work of breathing despite Hi-Flow at 100% FiO2. He was upgraded to ICU again on 06/05 for intubation and bronchoscopy, which showed normal-appearing mucosa, and BAL sample was sent for culture and cytology. Patient was given paralysis and managed with vent settings for ARDS. At this point, autoimmune studies including Rh factor, DANIEL, ANCA, Anti-proteinase 3, Anti-myeloperoxidase, Complement C3/C4c all returned negative. Absolute CD4 count was low at 116. On 06/07, in light of still unconfirmed diagnosis and critical status, patient's named [id number] and decision-maker, sister Francesca, was asked to bring forward any other additional history about patient's substance use, particularly any vape pens or supplements/substances he may have used to investigate for possible Vape-Associated Lung Injury. Sister brought in patient's bag of belongings from home containing vials of trenbolone (anabolic steroid) and testosterone and needles, which sister reports may have been purchased from [facility]. There were additional male enhancement supplements, synthetic urine kit, marijuana wax pen, and cigarette boxes. 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 On 06/08, HIV viral load came back at 5,660,000 copies. HIV 1 antibody was positive. HIV 2 negative. On 06/09, patient was started on antiretrovirals, Truvada and raltegravir. Patient also started having significant hyperkalemia, requiring multiple pushes of insulin, calcium gluconate, and kayexylate, eventually needing dialysis on 06/06, 06/08, and 06/09. Suspected Bactrim adverse effect, Bactrim was continued however to treat PCP. Patient has continued on mechanical ventilation. While he initially succeeded at weaning to spontaneous mode with Pressure Support of 8, FiO2 40% on sedation, it has been a challenge to wean sedation off successfully. Patient would become increasingly tachypneic, with work of breathing and desaturation, and has been unable have sedation low enough to follow commands, eye track, or make purposeful movements. On 06/15, patient had spiked fevers, WBC worsened, and patient had tachypneia again with worsening respiratory acidosis. Patient was proned. PE was suspected and heparin drip was started. ET sputum culture from 06/09 grew VRE enterococcus casseliflavus therefore linezolid and meropenem was started, Zosyn was discontinued. Patient is planned for tracheostomy on 06/21/2024 (Day 17 of intubation) if unable to wean from the vent. 06/23/2024: The patient was examined and evaluated at the bedside this morning. Overnight propofol was cut down from 40 mcg to 30 mcg, fentanyl from 200 to 175 mcg. Heart rate has been in the range of 90s with RR improving to 24-27. Physical exam was significant for blisters over right forearm, abrasion over lower lip, and onychomycosis of right big toe. Hemoglobin was 7.0 down from 7.9 yesterday, ABG revealed pH 7.46 with pCO2 53 and HCO3 38. Sodium stable about 132, chloride 93 and phosphorus 1.8. Neutra-Phos 1 packet was given. Liver enzymes downtrending and stable. Mild increase in triglyceride with level of 205. NEURO #Acute encephalopathy, secondary to prolonged sedation 06/05/2024 Patient was intubated, sedated, and paralyzed for ARDS. Prior to intubation, patient was awake, alert, and oriented x3, following commands, conversational. Plan: -Goal sedation: RASS -4, as he did not tolerated decreasing the sedation -We will start the sedation bridge with enteral sedation with Phenobarb 60 Mg 3 times daily, clonazepam 1 Mg 3 times daily, and oxycodone 10 Mg 3 times daily -Fentanyl at 175 mcg/hr -Propofol at 30 mcg/kg/min -Midazolam 4 mg IV prn for breakthrough agitation #Fever---Resolved CARDIO #Right upper extremity DVT. -Doppler US right upper extremity 06/17/24: revealed RUE DVT -On Heparin Drip #Sinus tachycardia---Resolved. Tachycardia most likely secondary to respiratory distress and agitation 08/21 AHRF 06/15: Possible new sepsis? Patient with new fevers, increased tachypneia. Low threshold of suspicion for PE, therefore heparin drip was started 06/15. Plan: -Continuous telemetry -Continue sedation with RASS goal -4 for now -CTPA negative for PE 06/16/24 #Septic shock, resolved Secondary to severe extensive bilateral pneumonia. Patient was on norepinephrine 06/06-06/10. Currently off pressors. 06/06/2024 Echo was read EF 55-60% 06/09/2024 Blood cultures negative 06/09/2024 Urine culture negative 06/09/2024 ET culture POSITIVE for Staph haemolyticus, Entercoccus casseliflavus vancomycin-resistant PULM #Acute hypoxic respiratory failure Secondary to #Bilateral pneumocystis jirovecii pneumonia #Healthcare associated pneumonia #Ventilator associated pneumonia #S/P Tracheostomy Patient presented with dyspnea and cough, requiring 4L NC on first ED evaluation, and history of chills, body aches, generalized weakness, fever, and night sweats progressively worsening over the prior weeks. Approx 20-pack year smoking history, occasional marijuana. 06/17/2024 oxygenation and hypercapnia improved, was put in supine position, continued to be paralyzed. Plan: -Ventilation on volume control, saturation to be maintained >90%, PEEP at 8, RR 30, FiO2 at 35% wean if tolerated -Continue Bactrim 06/01/24 - completed on 06/22/24, but extended as per ID -Started linezolid 600 mg q12h 06/15/24-06/22/24 -Continue micafungin 100 mg qday 06/09/24- -Fungal cultures from BAL pending -DuoNebs q4h as needed -New blood cultures sent 06/15?negative for growth -New ET culture sent 06/15?negative for growth -Continue to wean off from sedatives so that the patient can be discharged to subacute rehab #ARDS Patient continues to have increased oxygen demands with worsening bilateral infiltrates on CXR. Will maintain ARDS ventilation protocol. 06/08/24 P:F ratio 89/1=89. Severe ARDS. 06/20/24: P:F ratio 151, moderate ARDS Plan: -VC overnight, maintain PEEP 8, FiO2 to maintain saturation 92% -Maintain peak plateau <30 -Follow up ABG -Prednisone 20mg qday until 06/26/2024 GI Prophylaxis: Pantoprazole 40 mg IV qday #Elevated LFTs, improving Likely due to propofol and bactrim. Mildly elevated, liver US 05/30/2024 showed normal gallbladder and hepatomegaly without lesions or evidence of obstructions. Hep panel negative. LFTs downtrended compared to 06/06/24. 06/15/2024 Floyd in LFTs with AST 303, ALT 420, Tbili 1.3, therefore right upper quadrant US ordered, negative for cholecystitis/cholelithiasis, hepatitis panel negative. No obvious changes on physical exam. 06/20/24: LFT AST/ALT/ALP : 99/123/118 Plan: -Continue monitoring NEPHRO #Hypophosphatemia #WILL, resolved #Mild hyponatremia---Resolved #Hyperkalemia---Resolved #Hyperphosphatemia, resolved Ddx: Prerenal WILL due to hypotension vs possible rhabdomyolysis vs drug toxicity (zosyn, vancomycin, bactrim) Unlikely rhabdomyolysis, CK was 511 06/06, did not uptrend. Urine output is >100 ml/hr, urine is yellow and clear. Possible underlying SIADH. Potassium 06/11/24 4.4. Plan: -Continue Veltassa 8.4 gm qday for potassium chelation -Nephrology Dr. Song is following for as-needed dialysis due to hyperkalemia -Continue free water at 40 ml/hr -Maintain euvolemia -Monitor CMP, especially potassium -Replete electrolytes as needed. #Respiratory acidosis #Metabolic alkalosis ABGs are showing acidemia with elevation of pCO2, indicative of primary respiratory acidosis. There is an underlying metabolic alkalosis due to the given bicarb being greater than the expected compensatory bicarb. pH 7.36, pCO2 74. pO2 55 Plan: -Bicarb drip was discontinued 06/17 -Follow-up lactate was normal -As per Pulm -Management as per pulmonology HEME #Leukocytosis, resolved Fluctuating WBC. In the setting of likely infection, inflammation, and corticosteroids. Plan: -Treatment of pneumonia as above #Microcytic anemia 2/2 STEPHY and Inflammatory anemia Stable, has not required any transfusions this admission thus far. Clinically no evidence of bleeding. Iron panel shows iron 17, TIBC 262, iron saturation 6, unsaturated iron binding 245. Peripheral blood film confirms microcytic hypochromic anemia with target cells. Also daily lab draws contributing. Plan: -Started on oral ferrous sulfate 325 Mg daily -Monitor H&H. Transfusing for Hgb <7 #Thrombocytosis, resolved Likely reactive. -Continue to monitor ENDO #No active problems -Blood glucose on chemistry panels in acceptable range ID #Bilateral pneumocystis pneumonia #Healthcare associated pneumonia #Ventilator associated pneumonia Negative studies: Cocci IgM and IgG, Hepatitis panel, Syphilis, Legionella, H.flu, N.meningitidis, Strep B, Strep pneumoniae, COVID, RSV, Flu A & B. TB quantiferon GOLD-indeterminate, however 06/05 AFB negative, CMV IgM, cryptococcal antigen negative. G6PD levels came back normal for consideration of dapsone alternative to Bactrim if needed. Patient completed 5 day course of azithromycin, 16 days of Zosyn. See Pulm for timeline of antimicrobial coverage. Plan: -Antibiotcs Bactrim and antifungal micafungin -Fungal cultures from BAL pending -New blood cultures sent 06/15?negative for growth -New ET culture sent 06/15?negative for growth #AIDS/HIV Patient has Stage 4 HIV, AIDS-defining illness with opportunistic infection. 06/07/2024 Bronchoalveolar lavage cytology shows Pneumocystis jirovecii. Also other fungi, possibly Kassandra. Kassandra is most likely a contaminant. Blood [id number] also positive. 06/08/2024 HIV quant 5.66 million copies. HIV 1 positive confirmed. 06/09/2024 Patient's decision maker, Francesca, was informed of diagnosis due to critical state of patient. Absolute CD4 count 87 and 22% on 06/02. History/risk factors: History of injection anabolic androgenic steroid and testosterone use, possible unclean needles. History of incarceration (unknown time). Tattoos received as a teenager. Has 1 female sexual partner last 5 years, denies others. -Continue HAART: emtricitabine / tenofovir (Truvada) and raltegravir initiated 06/09/24 -Patient is not aware of his diagnosis as he has been intubated and sedated before results returned. Will require complete education and counseling on the disease if his mental status and clinical condition improves. MSK #Elevated creatine kinase -Down trended SKIN #No active problems DVT prophylaxis: Lovenox 40 subQ qday GI prophylaxis: Pantoprazole 40 mg IV qday Diet: Tube feeds Nepro Tijerina: Present (06/05- ) Lines: Peripheral IV Antibiotics: Bactrim, micafungin CODE STATUS: FULL CODE Reason for ICU care: Acute hypoxic respiratory failure secondary to bilateral pneumonia/ARDS Patient plan of care was discussed with the attending physician, Dr. Walsh. Jeff Pacheco MD, PGY2
[2024-06-23] MEDS: LABETALOL INJ 5 MG/ML VIAL 20 ML IVP (18:20)
[2024-06-23] MEDS: fentaNYL 2,500 MCG/250 ML BAG 2,500 MCG/250 ML BAG 20 MCG IV (18:45)
[2024-06-23] MEDS: DOCUSATE SOD LIQD 100 MG/10 ML UDC PO (20:48)
[2024-06-23] MEDS: LABETALOL 100 MG TABLET NG (21:04)
[2024-06-23] MEDS: RALTEGRAVIR 400 MG TABLET NG (21:07)
[2024-06-24] VITALS (108 sets, daily range): BP systolic 90–123; BP diastolic 48–68; PULSE 93–122; RESP 0–40; TEMP 36.2–37.4; O2SAT 89–99; BMI 27.4
[2024-06-24 04:43] LABS: Base Excess 9 (-3-3); HCO3 38 mEq/L (20-26); Inspired Oxygen, FIO2 50 %; O2 Saturation 96 % (91-98); PCO2 80 mmHg (32.0-48.0); PO2 88 mmHg (83-108); pH, Arterial 7.29 (7.35-7.45)
[2024-06-24 04:49] LABS: Allen Test Performed/OK; Puncture Site Left Radial
[2024-06-24] MEDS: oxyCODONE HCL 5 MG IR TAB 10 MG GT ×3 (05:33→22:03)
[2024-06-24] MEDS: PHENOBARBITAL ELIX 20 MG/5 ML 90 MG GT ×3 (05:35→22:02)
[2024-06-24] MEDS: clonazePAM 0.5 MG TABLET 2 MG GT ×3 (05:35→22:03)
[2024-06-24] MEDS: Artificial Tears 225 DROP/15 ML BTL BOTH EYES ×4 (05:36→21:59)
[2024-06-24 05:48] LABS: Basophils % (Auto) 0 % (0-2.5); Eosinophils # (Auto) 0.6 Thou/mm3 (0.0-0.5); Eosinophils % (Auto) 11 % (0-10); Hematocrit 28.1 % (41.0-53.0); Immature Granulocytes % (Auto) 1 % (0-0); Immature Granulocytes Auto 0.06 Thou/mm3 (0.00-0.00); Lymphocytes # (Auto) 0.4 Thou/mm3 (1.0-4.8); Lymphocytes % (Auto) 9 % (10-50); Mean Corpuscular HGB Conc 30.6 g/dl (31.0-37.0); Mean Corpuscular Hemoglobin 24.4 pg (25.0-35.0); Mean Corpuscular Volume 80 fL (80-100); Monocytes # (Auto) 0.3 Thou/mm3 (0.0-0.8); Monocytes % (Auto) 6 % (0-12); Neutrophils # (Auto) 3.8 Thou/mm3 (1.8-7.7); Neutrophils % (Auto) 74 % (37-80); Nucleated Red Blood Cell # 0.02 Thou/mm3 (0.00-0.00); Nucleated Red Blood Cell % 0 /100 WBC (0); Platelet Count 189 Thou/mm3 (140-440); RDW Standard Deviation 73.4 fL (35.1-43.9); Red Blood Count 3.53 Miln/mm3 (4.50-5.90); White Blood Count 5.1 Thou/mm3 (3.8-10.6)
[2024-06-24 05:49] LABS: Hemoglobin 8.6 g/dL (13.5-16.0)
[2024-06-24 06:14] LABS: Alanine Aminotransferase 112 U/L (10-49); Alkaline Phosphatase 181 U/L (46-116); Anion Gap 4 (7-16); Aspartate Amino Transferase 92 U/L (0-34); BUN/Creatinine Ratio 27 Ratio (12-20); Bilirubin,Total 0.5 mg/dL (0.3-1.2); Blood Urea Nitrogen 16 mg/dL (9-23); Calcium (Corrected) 8.8 mg/dL (8.5-10.1); Carbon Dioxide 36.3 mMol/L (20.0-31.0); Chloride 92 mMol/L (98-107); Creatinine (Component) 0.6 mg/dL (0.6-1.3); Estimated Creatinine Clearance 165.4 mL/min (>60); Globulin 2.9 gm/dL (2.3-3.5); Glucose 69 mg/dL (74-106); Osmolality,Calculated 263 (275-295); Potassium 4.8 mMol/L (3.4-5.1); Sodium 132 mMol/L (136-145); Total Protein 5.9 gm/dL (5.7-8.2); Triglycerides 313 mg/dL (30-150); eGFR > 60 See Note
--- NOTE | 2024-06-24 06:26 | XR_ITS ---
Examination: AP chest single view Technique: AP portable semiupright chest single view Exam date and time: June 24, 2024 0636 hrs. Comparison June 23, 2020 Indications: Diagnosis pneumocystis carinae, pneumonia ARDS, hypoxic respiratory failure, post tracheostomy Findings: Severe bilateral lung opacity Tracheostomy tube tip 3.6 above sunil No pneumothorax Orogastric tube is in the stomach, the tip is below the level of the film No pneumothorax Impression: Severe bilateral pneumonia ARDS pattern Tracheostomy tube tip 3.6 cm above sunil
[2024-06-24] MEDS: QUEtiapine FUMARATE 25 MG TABLET 75 MG PO ×2 (08:23→21:58)
[2024-06-24] MEDS: FERROUS SULF 325 MG TABLET PO (08:23)
[2024-06-24] MEDS: predniSONE 20 MG TABLET PO (08:23)
[2024-06-24] MEDS: PANTOPRAZOLE INJ 40 MG VIAL IVP (08:24)
[2024-06-24] MEDS: TRIMETHOPRIM PO (08:27)
[2024-06-24] MEDS: SULFAMETHOXAZOLE PO (08:27)
[2024-06-24] MEDS: EMTRICITABINE 200 MG/TENOFOVIR 300 MG TAB (NON-FORM) 1 TAB PO (08:28)
[2024-06-24] MEDS: PATIROMER CALCIUM 8.4 GM PACKET (NON-FORM) NG (08:28)
[2024-06-24] MEDS: RALTEGRAVIR 400 MG TABLET NG ×2 (08:29→21:58)
[2024-06-24 08:30] LABS: Magnesium 1.8 mg/dL (1.6-2.6)
[2024-06-24 09:01] LABS: Base Excess 12 (-3-3); HCO3 38 mEq/L (20-26); Inspired Oxygen, FIO2 50 %; O2 Saturation 99 % (91-98); PCO2 61 mmHg (32.0-48.0); PO2 110 mmHg (83-108)
[2024-06-24 09:06] LABS: Allen Test Performed/OK; Puncture Site Right Radial
--- NOTE | 2024-06-24 10:29 | ESPR_ITS ---
Documentation for date of: 06/24/24 Subjective Subjective Interval history: 06/21/2024: The patient was examined and evaluated at the bedside. No acute overnight events, continues to be intubated and mechanically ventilated, vitals still significant for RR 34-35, CBC at baseline with improving LFT. ABG revealed improvement on pCO2 and pO2. Chemistry panel with sodium 132, phosphorus 2.2 which were repleted. Overnight, ventilator setting was changed and tidal volume was increased to 450, FiO2 increased to 50. This morning, we reverted back tidal volume to 400 cc and FiO2 to 40%. We started the patient on internal sedatives with phenobarbital 60 Mg 3 times daily, clonazepam 1 Mg 3 times daily and oxycodone 10 Mg 3 times daily to decrease from IV sedation, as previous attempt to wean off IV sedation were unsuccessful. General surgeon Dr. Ryan was consulted, who will perform tracheostomy on 06/23/2024. 06/22/2024: The patient was examined and evaluated at the bedside this morning. No acute overnight events. His vitals were significant for RR 30-32, tidal volume set at 400 cc, FiO2 to 40%. Labs significant for hemoglobin 7.9, pCO2 trending down to 57, pO2 60 bicarb 40. Sodium 132, potassium 3.7, bicarb 36.8 and phosphorus 2.1. AST/ALT trending down triglyceride 195. Electrolytes were repleted. C. difficile toxin was negative. We increased the dose of phenobarbital to 90 Mg 3 times daily, clonazepam 2 Mg 3 times daily and we will continue with oxycodone 10 mg 3 times daily to bridge the IV sedation to interval sedation. We are weaning off of IV sedation. The patient is supposed to get tracheostomy done on 06/23/2024. 06/23/2024: The patient was examined and evaluated at the bedside this morning. Overnight propofol was cut down from 40 mcg to 30 mcg, fentanyl from 200 to 175 mcg. Heart rate has been in the range of 90s with RR improving to 24-27. Physical exam was significant for blisters over right forearm, abrasion over lower lip, and onychomycosis of right big toe. Hemoglobin was 7.0 down from 7.9 yesterday, ABG revealed pH 7.46 with pCO2 53 and HCO3 38. Sodium stable about 132, chloride 93 and phosphorus 1.8. Neutra-Phos 1 packet was given. Liver enzymes downtrending and stable. Mild increase in triglyceride with level of 205. 06/24/2024: The patient was examined and evaluated at the bedside this morning. Propofol was weaned off yesterday evening, and fentanyl was titrated down to 175 mcg/h, but this morning patient was agitated and overnight team increased the dose to 225 mcg/h. However, we were able to titrate the fentanyl dose to 50 mcg/h by this morning. The patient continues to have loose stools, and his laxatives were stopped. ABG this morning was revealing pH of 7.29 with pCO2 80. Ventilator setting was changed with tidal volume 450 and RR 30. Physical exam was significant for abrasion over lower lips, blisters measuring from 1 to 2 cm with few ruptured blisters over right forearm along with onychomycosis of right big toe. Hemoglobin this morning was 8.6, sodium continues to be 132, chloride 92, blood sugar trended down to 69 this morning and AST/ALT trending down to 92/112. Triglyceride trended up to 313 from 205. The plan is to titrate off the fentanyl and later titrate down the oral sedatives. Repeat ABG was stable. The patient is planned for PEG tube placement with Dr. Ryan today. The patient will also be planned for downgrade to MedSur unit followed by discharge at some acute rehab once he is completely out of IV sedatives. Exam Vital Signs Temp Pulse Resp BP Pulse Ox O2 Del Method O2 Flow Rate 98.1 F 103 H 30 H 107/60 96 Mechanical Ventilation 40 06/24/24 08:00 06/24/24 10:26 06/24/24 06:18 06/24/24 09:09 06/24/24 10:26 06/24/24 04:00 06/09/24 12:16 FiO2 55 06/24/24 10:26 Narrative Exam GEN: Critically ill, not acutely distressed, sedated and intubated. Neuro: Deferred due to sedation. HEENT: NCAT, tracheostomy tube on appropriate position, PO tube noted. CVS: RRR, S1S2 present, no M/R/G. No JVD Respi: Mechanically ventilated, b/l breath sounds heard with diffuse rhonchi, no wheezing/crackles. ABD: Soft, no grimace to palpation, bowel sounds present in all 4 quadrants. Skin: warm, dry and intact. Extremities: Pulses 2+ in all extremities, RUE edema, vesicles 1-2 cm on the rt forearm surface. Objective Labs 06/24/24 05:19 06/24/24 05:19 Labs: Laboratory Results - last 24 hr 06/24/24 06/24/24 06/24/24 04:25 05:19 08:50 WBC 5.1 RBC 3.53 L Hgb 8.6 L D Hct 28.1 L MCV 80 MCH 24.4 L MCHC 30.6 L RDW Std Deviation 73.4 H Plt Count 189 Neut % (Auto) 74 Lymph % (Auto) 9 L Greenlee % (Auto) 6 Eos % (Auto) 11 H Baso % (Auto) 0 Neut # (Auto) 3.8 Lymph # (Auto) 0.4 L Greenlee # (Auto) 0.3 Eos # (Auto) 0.6 H Baso # (Auto) 0.0 Immature Gran # (Auto) 0.06 H Absolute Nucleated RBC 0.02 H Immature Gran % 1 H Nucleated RBC % 0 Puncture Site Left Radial Right Radial ABG pH 7.29 L D 7.40 D ABG pCO2 80 H* D 61 H D ABG pO2 88 110 H D ABG HCO3 38 H 38 H ABG O2 Saturation 96 99 H ABG Base Excess 9 H 12 H FiO2 50 50 Sodium 132 L Potassium 4.8 D Chloride 92 L Carbon Dioxide 36.3 H Anion Gap 4 L BUN 16 Creatinine 0.6 Estim Creat Clear Calc 165.4 eGFR > 60 BUN/Creatinine Ratio 27 H Glucose 69 L Calculated Osmolality 263 L Calcium 8.0 L Corrected Calcium 8.8 Phosphorus 3.0 Magnesium 1.8 Total Bilirubin 0.5 AST 92 H ALT 112 H Alkaline Phosphatase 181 H Total Protein 5.9 Albumin 3.0 L Globulin 2.9 Albumin/Globulin Ratio 1.0 L Triglycerides 313 H ABG Interpretation ABG results: 05/27/24 05/29/24 05/29/24 23:37 10:44 22:08 ABG pH 7.51 H 7.50 H 7.48 H ABG pCO2 28 L 32 32 ABG pO2 75 L 79 L 145 H D ABG HCO3 23 25 24 ABG O2 Saturation 96 95 98 ABG Base Excess 0 2 1 05/30/24 05/31/24 06/04/24 08:45 04:54 02:10 ABG pH 7.47 H 7.45 7.45 ABG pCO2 35 38 36 ABG pO2 86 D 82 L 139 H ABG HCO3 26 26 25 ABG O2 Saturation 97 96 98 ABG Base Excess 2 2 1 06/04/24 06/05/24 06/05/24 18:16 11:36 12:59 ABG pH 7.44 7.11 L* D 7.20 L ABG pCO2 36 94 H* D 68 H D ABG pO2 80 L D 150 H D 121 H D ABG HCO3 24 30 H 26 ABG O2 Saturation 94 97 97 ABG Base Excess 0 -2 -3 06/05/24 06/06/24 06/06/24 19:25 04:13 15:27 ABG pH 7.22 L 7.27 L 7.30 L ABG pCO2 64 H 57 H 60 H ABG pO2 122 H 153 H D 74 L D ABG HCO3 26 26 29 H ABG O2 Saturation 97 99 H 92 ABG Base Excess -3 -2 2 06/07/24 06/07/24 06/08/24 03:55 09:59 04:20 ABG pH 7.41 D 7.43 7.45 ABG pCO2 56 H 55 H 50 H ABG pO2 293 H D 78 L D 75 L ABG HCO3 36 H 37 H 35 H ABG O2 Saturation 99 H 95 94 ABG Base Excess 10 H 11 H 10 H 06/08/24 06/08/24 06/08/24 11:05 11:50 13:18 ABG pH 7.17 L* D 7.10 L* 7.15 L* ABG pCO2 95 H* D 115 H* D 88 H* D ABG pO2 89 75 L 72 L ABG HCO3 34 H 36 H 31 H ABG O2 Saturation 92 84 L 85 L ABG Base Excess 3 4 H 0 06/08/24 06/09/24 06/09/24 17:02 01:33 03:15 ABG pH 7.18 L* 7.22 L 7.27 L ABG pCO2 50 H D 91 H* D 82 H* ABG pO2 82 L 105 D 86 ABG HCO3 19 L 37 H 38 H ABG O2 Saturation 93 97 95 ABG Base Excess -9 L 7 H 9 H 11/06/09/24 06/10/24 05:08 12:52 04:40 ABG pH 7.31 L 7.33 L 7.30 L ABG pCO2 75 H* 57 H D 78 H* D ABG pO2 97 158 H D 65 L D ABG HCO3 38 H 30 H 38 H ABG O2 Saturation 97 99 H 90 L ABG Base Excess 10 H 3 9 H 06/10/24 06/11/24 06/12/24 09:40 04:19 04:15 ABG pH 7.27 L 7.35 7.48 H D ABG pCO2 88 H* D 86 H* 63 H D ABG pO2 65 L 70 L 76 L ABG HCO3 40 H 48 H 47 H ABG O2 Saturation 89 L 93 95 ABG Base Excess 10 H 19 H 21 H 06/13/24 06/14/24 06/15/24 07:22 04:32 03:45 ABG pH 7.46 H 7.48 H 7.46 H ABG pCO2 56 H 40 D 37 ABG pO2 80 L 64 L 71 L ABG HCO3 39 H 30 H 27 H ABG O2 Saturation 95 92 94 ABG Base Excess 13 H 6 H 3 06/15/24 06/15/24 06/15/24 10:17 12:20 14:20 ABG pH 7.01 L* D 7.00 L* 7.03 L* ABG pCO2 122 H* D 130 H* 125 H* ABG pO2 91 D 88 82 L ABG HCO3 31 H 32 H 33 H ABG O2 Saturation 88 L 88 L 87 L ABG Base Excess -3 -2 -1 06/15/24 06/15/24 06/16/24 15:55 20:39 00:35 ABG pH 7.03 L* 7.08 L* 7.10 L* ABG pCO2 121 H* 116 H* 118 H* ABG pO2 99 117 H 102 ABG HCO3 32 H 34 H 37 H ABG O2 Saturation 93 97 96 ABG Base Excess -1 2 4 H 06/16/24 06/16/24 06/17/24 04:45 08:55 05:06 ABG pH 7.17 L* 7.28 L D 7.33 L ABG pCO2 112 H* 88 H* D 96 H* ABG pO2 155 H D 98 D 126 H D ABG HCO3 41 H 41 H 50 H ABG O2 Saturation 99 H 98 99 H ABG Base Excess 9 H 12 H 21 H 06/17/24 06/17/24 06/18/24 10:58 13:55 04:16 ABG pH 7.29 L 7.29 L 7.33 L ABG pCO2 106 H* D 106 H* 86 H* D ABG pO2 58 L* D 61 L 77 L ABG HCO3 51 H 51 H 45 H ABG O2 Saturation 87 L 88 L 95 ABG Base Excess 21 H 21 H 17 H 06/19/24 06/20/24 06/21/24 04:18 04:49 04:06 ABG pH 7.42 7.36 7.44 ABG pCO2 63 H D 74 H* D 61 H D ABG pO2 66 L 55 L* 202 H D ABG HCO3 41 H 42 H 42 H ABG O2 Saturation 93 87 L 100 H ABG Base Excess 15 H 14 H 16 H 06/22/24 06/23/24 06/24/24 04:18 04:29 04:25 ABG pH 7.45 7.46 H 7.29 L D ABG pCO2 57 H 53 H 80 H* D ABG pO2 60 L D 99 D 88 ABG HCO3 40 H 38 H 38 H ABG O2 Saturation 91 99 H 96 ABG Base Excess 14 H 13 H 9 H 06/24/24 08:50 ABG pH 7.40 D ABG pCO2 61 H D ABG pO2 110 H D ABG HCO3 38 H ABG O2 Saturation 99 H ABG Base Excess 12 H Quality Measures Quality Measures sepsis Current suspected stage: ruled out Possible source: pulmonary, GI tract/intra-abdominal, genitourinary and skin/soft tissue Blood cultures ordered: yes Antibiotic ordered: Yes Assessment & Plan Assessment Current Active Medications: Generic Name Dose Route Start Last Admin Trade Name Freq PRN Reason Stop Dose Admin Acetaminophen 975 mg 06/09/24 14:27 06/15/24 02:56 Acetaminophen Munira 325 Mg/10 Ml Udc PO 06/26/24 12:10 975 mg Q6H PRN Administration Pain 1-3 and Fever >101.5 Albuterol/Ipratropium 3 ml 06/05/24 11:40 06/09/24 22:18 Albuterol/Ipratropium (Duoneb) Rt Munira 3 Ml Nebu INH 07/05/24 14:59 3 ml Q4HRRT PRN Administration Wheezing Artificial Tears 1 drop 06/18/24 12:00 06/24/24 05:36 Artificial Tears 225 Drop/15 Ml Btl BOTH EYES 07/18/24 11:59 1 drop QID JUAN JOSE Administration Clonazepam 2 mg 06/22/24 14:00 06/24/24 05:35 Clonazepam 0.5 Mg Tablet GT 06/27/24 13:59 2 mg TID JUAN JOSE Administration Dextrose 25 ml 06/06/24 08:20 Dextrose 50%-Water Inj 50 Ml Syringe IV 07/06/24 08:19 Q15MIN PRN BG 50-70 responsive npo pt Dextrose 50 ml 06/06/24 08:20 Dextrose 50%-Water Inj 50 Ml Syringe IV 07/06/24 08:19 Q15MIN PRN BG <50 OR BG <70 & pt unresponsive Docusate Sodium 100 mg 06/22/24 09:00 06/24/24 08:24 Docusate Sod Liqd 100 Mg/10 Ml Udc PO 07/22/24 08:59 Not Given BID [facility] Protocol Emtricitabine/Tenofovir 1 tab 06/16/24 12:30 06/24/24 08:28 Emtricitabine 200 Mg/Tenofovir 300 Mg Tab (Non-Form) PO 07/16/24 12:29 1 tab QDAY JUAN JOSE Administration Ferrous Sulfate 325 mg 06/23/24 10:00 06/24/24 08:23 Ferrous Sulf 325 Mg Tablet PO 07/23/24 09:59 325 mg QDAY JUAN JOSE Administration Glucagon 1 mg 06/06/24 08:20 Glucagon Inj 1 Mg Vial IM Q15MIN PRN BG <70, and no IV access Heparin Sodium/Dextrose 25,000 unit in 250 mls @ 13.608 mls/hr 06/15/24 14:45 06/24/24 05:36 Heparin In D5w Ivpb IV 06/29/24 14:44 Not Given .[id number] [facility] Protocol 18 UNITS/KG/HR Propofol 1,000 mg in 100 mls @ 2.487 mls/hr 06/18/24 12:17 06/23/24 17:21 Diprivan Ivpb IV 07/09/24 14:25 Infused .Q24H PRN Titration PER PROTOCOL Protocol 5 MCG/KG/MIN Fentanyl Citrate 2,500 mcg in 250 mls @ 20 mls/hr 06/20/24 07:00 06/24/24 10:00 Sublimaze Inj 2,500 Mcg/250 Ml Bag IV 06/25/24 06:59 Infused .[id number] PRN Titration PER PROTOCOL Protocol 200 MCG/HR Labetalol HCl 5 mg 06/23/24 18:13 06/23/24 18:20 Labetalol Inj 5 Mg/Ml Vial 20 Ml IVP 07/23/24 18:14 5 mg Q6H PRN Administration SBP > 180 or DBP > 110 Labetalol HCl 50 mg 06/24/24 21:00 Labetalol 100 Mg Tablet PO 07/24/24 20:59 BID JUAN JOSE Ondansetron HCl 4 mg 05/29/24 21:51 06/04/24 17:44 Ondansetron Inj 2 Mg/Ml Inj 2 Ml IV 06/28/24 21:50 4 mg Q6HR PRN Administration NAUSEA OR VOMITING Protocol Oxycodone HCl 10 mg 06/21/24 18:00 06/24/24 05:33 Oxycodone Hcl 5 Mg Ir Tab GT 06/26/24 17:59 10 mg TID JUAN JOSE Administration Pantoprazole Sodium 40 mg 06/06/24 09:00 06/24/24 08:24 Pantoprazole Inj 40 Mg Vial IVP 07/06/24 08:59 40 mg QDAY JUAN JOSE Administration Patiromer 8.4 gm 06/09/24 10:45 06/24/24 08:28 Patiromer Calcium 8.4 Gm Packet (Non-Form) NG 07/09/24 10:44 8.4 gm QDAY JUAN JOSE Administration Phenobarbital 90 mg 06/22/24 14:00 06/24/24 05:35 Phenobarbital Elix 20 Mg/5 Ml Udc GT 07/06/24 13:59 90 mg TID JUAN JOSE Administration Prednisone 20 mg 06/21/24 09:00 06/24/24 08:23 Prednisone 20 Mg Tablet PO 07/21/24 08:59 20 mg QDAY JUAN JOSE Administration Quetiapine Fumarate 75 mg 06/23/24 09:45 06/24/24 08:23 Quetiapine Fumarate 25 Mg Tablet PO 07/23/24 09:44 75 mg BID JUAN JOSE Administration Raltegravir 400 mg 06/23/24 21:00 06/24/24 08:29 Raltegravir 400 Mg Tablet NG 06/30/24 20:59 400 mg BID JUAN JOSE Administration Trimethoprim/Sulfamethoxazole 20 ml 06/23/24 09:00 06/24/24 08:27 Trimethoprim/Sulfa Susp 1 Ml PO 06/22/25 12:00 20 ml QDAY JUAN JOSE Administration Plan 39-year-old male patient with no PMHx who initially presented to [facility] on 05/27/2024 with a chief complaint of shortness of breath and cough, with associated chills, body aches, generalized weakness, fever, and night sweats beginning weeks prior but progressively worsening over a few days is currently being treated for acute hypoxic respiratory failure secondary to PCP pneumonia that was complicated by ventilator associated pneumonia. Patient is currently on tracheostomy tube and mechanically ventilated. 06/24/2024: The patient was examined and evaluated at the bedside this morning. Propofol was weaned off yesterday evening, and fentanyl was titrated down to 175 mcg/h, but this morning patient was agitated and overnight team increased the dose to 225 mcg/h. However, we were able to titrate the fentanyl dose to 50 mcg/h by this morning. The patient continues to have loose stools, and his laxatives were stopped. ABG this morning was revealing pH of 7.29 with pCO2 80. Ventilator setting was changed with tidal volume 450 and RR 30. Physical exam was significant for abrasion over lower lips, blisters measuring from 1 to 2 cm with few ruptured blisters over right forearm along with onychomycosis of right big toe. Hemoglobin this morning was 8.6, sodium continues to be 132, chloride 92, blood sugar trended down to 69 this morning and AST/ALT trending down to 92/112. Triglyceride trended up to 313 from 205. The plan is to titrate off the fentanyl and later titrate down the oral sedatives. Repeat ABG was stable. The patient is planned for PEG tube placement with Dr. Ryan today. The patient will also be planned for downgrade to MedSurg unit followed by discharge at some acute rehab once he is completely out of IV sedatives. NEURO #Acute encephalopathy, secondary to prolonged sedation 06/05/2024 Patient was intubated, sedated, and paralyzed for ARDS. Prior to intubation, patient was awake, alert, and oriented x3, following commands, conversational. Plan: -Goal sedation: RASS -2, titrating down the IV sedatives -We will continue sedation bridge with enteral sedation with Phenobarb 60 Mg 3 times daily, clonazepam 1 Mg 3 times daily, and oxycodone 10 Mg 3 times daily -Fentanyl at 50 mcg/hr -Propofol titrated off -Midazolam 4 mg IV prn for breakthrough agitation #Fever---Resolved CARDIO #Right upper extremity DVT. -Doppler US right upper extremity 06/17/24: revealed RUE DVT -On Heparin Drip #Sinus tachycardia---Resolved. Tachycardia most likely secondary to respiratory distress and agitation / AHRF 06/15: Possible new sepsis? Patient with new fevers, increased tachypneia. Low threshold of suspicion for PE, therefore heparin drip was started 06/15. #Septic shock, resolved Secondary to severe extensive bilateral pneumonia. -Patient is out of pressor support and completed the dose of antibiotics PULM #Acute hypoxic respiratory failure Secondary to #Bilateral pneumocystis jirovecii pneumonia #Healthcare associated pneumonia #Ventilator associated pneumonia #ARDS #S/P Tracheostomy Patient presented with dyspnea and cough, requiring 4L NC on first ED evaluation, and history of chills, body aches, generalized weakness, fever, and night sweats progressively worsening over the prior weeks. Approx 20-pack year smoking history, occasional marijuana. 06/17/2024 oxygenation and hypercapnia improved, was put in supine position, continued to be paralyzed. Plan: -Ventilation on volume control, saturation to be maintained >90% -Continue Bactrim 06/01/24 - completed on 06/22/24, but extended as per ID -Started linezolid 600 mg q12h 06/15/24-06/22/24 -Continue micafungin 100 mg qday 06/09/24- -Fungal cultures from BAL pending -DuoNebs q4h as needed -New blood cultures sent 06/15?negative for growth -New ET culture sent 06/15?negative for growth -Continue to wean off from sedatives so that the patient can be discharged to subacute rehab -Prednisone 20mg qday until 06/26/2024 GI GI prophylaxis: Pantoprazole 40 mg IV qday #Elevated LFTs, improving Likely due to propofol and bactrim. Mildly elevated, liver US 05/30/2024 showed normal gallbladder and hepatomegaly without lesions or evidence of obstructions. Hep panel negative. LFTs downtrended compared to 06/06/24. 06/15/2024 Floyd in LFTs with AST 303, ALT 420, Tbili 1.3, therefore right upper quadrant US ordered, negative for cholecystitis/cholelithiasis, hepatitis panel negative. No obvious changes on physical exam. 06/20/24: LFT AST/ALT/ALP : 99/123/118 Plan: -Continue monitoring #Hypertriglyceridemia More likely secondary to propofol use -We will repeat lipid panel in couple of days. NEPHRO #Hypophosphatemia #WILL, resolved #Hyperkalemia---Resolved #Hyperphosphatemia, resolved Ddx: Prerenal WILL due to hypotension vs possible rhabdomyolysis vs drug toxicity (zosyn, vancomycin, bactrim) Unlikely rhabdomyolysis, CK was 511 06/06, did not uptrend. Urine output is >100 ml/hr, urine is yellow and clear. Possible underlying SIADH. Potassium 06/11/24 4.4. Plan: -Continue Veltassa 8.4 gm qday for potassium chelation -Nephrology Dr. Song is following for as-needed dialysis due to hyperkalemia -Continue free water at 40 ml/hr -Maintain euvolemia -Monitor CMP, especially potassium -Replete electrolytes as needed. #Mild hyponatremia Secondary to SIADH due to acute hypoxic respiratory failure leading to pulmonary distress -Continue to monitor #Respiratory acidosis compensated by metabolic alkalosis -ABGs are showing normal pH with elevation of pCO2, indicative of primary respiratory acidosis, and bicarb of 38 revealing appropriate compensation HEME #Leukocytosis, resolved Fluctuating WBC. In the setting of likely infection, inflammation, and corticosteroids. Plan: -Treatment of pneumonia as above #Microcytic anemia 2/2 STEPHY and Inflammatory anemia Stable, has not required any transfusions this admission thus far. Clinically no evidence of bleeding. Iron panel shows iron 17, TIBC 262, iron saturation 6, unsaturated iron binding 245. Peripheral blood film confirms microcytic hypochromic anemia with target cells. Also daily lab draws contributing. Plan: -Started on oral ferrous sulfate 325 Mg daily -Monitor H&H. Transfusing for Hgb <7 #Thrombocytosis, resolved Likely reactive. -Continue to monitor ENDO #Hypoglycemia Blood glucose this morning was 69, likely secondary to increased metabolic acid complicated by stopping enteral feeding -Bolus D50W given -Repeat blood sugar was stable -We will resume enteral feeding after PEG tube placement ID #Bilateral pneumocystis pneumonia #Healthcare associated pneumonia #Ventilator associated pneumonia Negative studies: Cocci IgM and IgG, Hepatitis panel, Syphilis, Legionella, H.flu, N.meningitidis, Strep B, Strep pneumoniae, COVID, RSV, Flu A & B. TB quantiferon GOLD-indeterminate, however 06/05 AFB negative, CMV IgM, cryptococcal antigen negative. G6PD levels came back normal for consideration of dapsone alternative to Bactrim if needed. Patient completed 5 day course of azithromycin, 16 days of Zosyn. See Pulm for timeline of antimicrobial coverage. Plan: -Antibiotcs Bactrim and antifungal micafungin -Fungal cultures from BAL pending -New blood cultures sent 06/15?negative for growth -New ET culture sent 06/15?negative for growth #AIDS/HIV Patient has Stage 4 HIV, AIDS-defining illness with opportunistic infection. 06/07/2024 Bronchoalveolar lavage cytology shows Pneumocystis jirovecii. Also other fungi, possibly Kassandra. Kassandra is most likely a contaminant. Blood [id number] also positive. 06/08/2024 HIV quant 5.66 million copies. HIV 1 positive confirmed. 06/09/2024 Patient's decision maker, Francesca, was informed of diagnosis due to critical state of patient. Absolute CD4 count 87 and 22% on 06/02. History/risk factors: History of injection anabolic androgenic steroid and testosterone use, possible unclean needles. History of incarceration (unknown time). Tattoos received as a teenager. Has 1 female sexual partner last 5 years, denies others. -Continue HAART: emtricitabine / tenofovir (Truvada) and raltegravir initiated 06/09/24 -Patient is not aware of his diagnosis as he has been intubated and sedated before results returned. Will require complete education and counseling on the disease if his mental status and clinical condition improves. MSK #Elevated creatine kinase -Down trended SKIN #Lower lip abrasion #Right forearm blisters -Monitor closely DVT prophylaxis: Lovenox 40 subQ qday GI prophylaxis: Pantoprazole 40 mg IV qday Diet: Tube feeds Nepro Tijerina: Present (06/05- ) Lines: Peripheral IV Antibiotics: Bactrim, micafungin CODE STATUS: FULL CODE Reason for ICU care: Acute hypoxic respiratory failure secondary to bilateral pneumonia/ARDS Patient plan of care was discussed with the attending physician, Dr. Walsh. Jeff Pacheco MD, PGY2
[2024-06-24] MEDS: fentaNYL 2,500 MCG/250 ML BAG 2,500 MCG/250 ML BAG IV (10:40)
--- NOTE | 2024-06-24 11:01 | ESPR_ITS ---
Documentation for date of: 06/24/24 Subjective Subjective Interval history: This is a 39-year-old male who presented to the ER on 27 May. Initially he presented for shortness of breath cough and general malaise. Apparently he had been feeling unwell for the last 2 to 3 weeks. He did have some nonproductive cough. Chest x-ray showed bilateral diffuse infiltrates and the medicine team was contacted. He was admitted to the floor and placed on high flow nasal cannula initially at 100% FiO2 and started on antibiotics. He was started on fluconazole as well as Levaquin given that there was a high suspicion for underlying cocci pneumonia. He has had 2 rapid responses over the last 48 hours due to hypoxia and desatting. The patient is able to tolerate minimal movements prior to desatting. Today the ICU is consulted for further evaluation. The patient is currently on 80% FiO2 he is awake alert and oriented. He states that he has shortness of breath however minimal cough. He does complain of some upper abdominal/lower rib pain which he attributes to his recent cough. He denies any chest pain. Does note that he has had some night sweats and fever over the last several days. There has been no significant improvement since arrival 3 days ago. His respiratory status remains unchanged if not slightly worse. He is currently on isolation with airborne precautions behind a closed door. At this point in time due to an abundance of caution as well as closer observation and monitoring we will transfer to the ICU for ongoing management of his acute hypoxic respiratory failure. I did discuss with the patient the probable need for intubation in the near future. He is okay with intubation 05/31- no acute overnight events, decrease in FiO2 needs, feels better with less WOB today, afebrile, 06/05-patient had been returned to the floor where initially he did well. Apparently over the last 24 to 36 hours he has had an increase in FiO2 requirements with a rapid response called last night. Rapid response called again this morning. Patient stated that he felt tired and unable to keep up. He is on 100% FiO2. He desats with minimal exertion. The decision was made to bring him to the ICU for intubation. This was discussed with the patient while he was awake and his family as well. 06/06- overnight pt remained on NMB, versed/prop/fent. brisk UOP >100cc/hr , afebrile, labs this AM showed a K of 7.8 for which he received insulin/Ca/D50/kayexolate 06/07-patient underwent dialysis yesterday for refractory hyperkalemia, he remains on deep sedation however off of propofol and off of paralytic. Continues with a good urinary output. Afebrile, have been able to come down on his FiO2 however persistent bilateral infiltrates severe on exam without conclusive underlying etiology as of this point in time. 06/08-no acute overnight events, this a.m. attempted to decrease sedation however patient became agitated and desatted. Required increased to 100% FiO2. When patient was suctioned blood was returned from the ET tube. Patient required paralytic and bagging in order to improve his sats. 06/23-has had a prolonged hospital course thus far. Was unable to be weaned from the vent. He was scheduled for tracheostomy today which took place with Dr Ryan. His Versed drip was stopped today. He remains on propofol and fentanyl. He is on multiple p.o. medications for severe agitation. Net negative over the last 24 hours however net positive since hospital stay. Afebrile 06/24- s/p trach yesterday, scheduled for PEG today, afebrile, vent dysynchrony overnight reason for which his fent was increased, off of prop. good UOP, afebrile Critical Care Note Critical care time (min.): 38 Exam Vital Signs Temp Pulse Resp BP Pulse Ox O2 Del Method O2 Flow Rate 98.1 F 103 H 30 H 107/60 96 Mechanical Ventilation 40 06/24/24 08:00 06/24/24 10:26 06/24/24 06:18 06/24/24 09:09 06/24/24 10:26 06/24/24 04:00 06/09/24 12:16 FiO2 55 06/24/24 10:26 Narrative Exam Gen- NAD, sedated, nl body habitus HEENT- NC/AT, mucosa dry, sclera anicteric, trach in place with no secretions, lip abrasions present, Chest- diminished, no crackles/wheeze, HRRR, no increase in WOB, not overbreathing the vent Abd- s/nt/bs+ Ext- no edema, pulses palp, no clubbing, no mottling Vent AC VC Drips fent Physical Exam Completion Physical Exam Complete?: Yes 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 06/24/24 05:19 06/24/24 05:19 Labs: Laboratory Results - last 24 hr 06/24/24 06/24/24 06/24/24 04:25 05:19 08:50 WBC 5.1 RBC 3.53 L Hgb 8.6 L D Hct 28.1 L MCV 80 MCH 24.4 L MCHC 30.6 L RDW Std Deviation 73.4 H Plt Count 189 Neut % (Auto) 74 Lymph % (Auto) 9 L [place] % (Auto) 6 Eos % (Auto) 11 H Baso % (Auto) 0 Neut # (Auto) 3.8 Lymph # (Auto) 0.4 L [place] # (Auto) 0.3 Eos # (Auto) 0.6 H Baso # (Auto) 0.0 Immature Gran # (Auto) 0.06 H Absolute Nucleated RBC 0.02 H Immature Gran % 1 H Nucleated RBC % 0 Puncture Site Left Radial Right Radial ABG pH 7.29 L D 7.40 D ABG pCO2 80 H* D 61 H D ABG pO2 88 110 H D ABG HCO3 38 H 38 H ABG O2 Saturation 96 99 H ABG Base Excess 9 H 12 H FiO2 50 50 Sodium 132 L Potassium 4.8 D Chloride 92 L Carbon Dioxide 36.3 H Anion Gap 4 L BUN 16 Creatinine 0.6 Estim Creat Clear Calc 165.4 eGFR > 60 BUN/Creatinine Ratio 27 H Glucose 69 L Calculated Osmolality 263 L Calcium 8.0 L Corrected Calcium 8.8 Phosphorus 3.0 Magnesium 1.8 Total Bilirubin 0.5 AST 92 H ALT 112 H Alkaline Phosphatase 181 H Total Protein 5.9 Albumin 3.0 L Globulin 2.9 Albumin/Globulin Ratio 1.0 L Triglycerides 313 H Assessment & Plan Problem List (1) Acute respiratory failure with hypoxia: Status: Acute Additional Assessment Additional Assessment: In brief this is a 39y M admitted for SOB and acute hypoxic resp failure with b/l PNA. 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 He was started on p.o. Seroquel and phenobarbital. He is also on Klonopin and oxycodone. Will continue to actively wean his IV drips - today off of prop and have come down on fent - goal to come off fent today CV HTN- tx with labetalol yesterday however today well wnl Resp Acute hypoxic resp failure- s/p trach 06/23 - unable to ween 2/2 mentation/agitation - vent changes made yesterday since pt overbreathing the vent - today some resp acidosis noted therefore RR increased again - fu ABG with improved pH PCP PNA- tx with bactrim and steroids - improved - will d/w ID need for ongoing bactrim? ARDS- improved with less FiO2 needs Renal HypoNa- 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 monitor - mild WILL- resolved GI Transaminitis- Hep viral panel is neg, - US shows some mild hepatomegaly - probable cholestasis - trending down GI proph- PPI Endo Hypoglycemia- has been NPO for procedure - give 1 amp D50 today HyperTrig- may be 2/2 prop -> stopped yesterday - recheck in a few days Heme Microcytic Anemia-iron deficiency anemia -Slow drift downwards with hemoglobin of 7 today -Transfuse for hemoglobin less than 7 -Patient started on p.o. iron - improved #s today DVT right upper extremity -heparin drip which is on hold for PEG placement - will be able to restart heparin tmw ID PNA-secondary to PCP VAP - grew out VRE and staph hemolyticus on 06/09 - seen by ID and recs noted HIV/ AIDS- on HAART tx -> fu with ID - JAYME proph if CD4 <50 case d/w ICU team, surgery and family at bedside labs, imaging, records reviewed ~38ccmin required for eval, exam, review, intervention , discussion and formulation of POC for this critically ill pt with resp failure at high risk for further and ongoing decompensation Provider Notation Provider Notation: Although this document has been carefully reviewed, there may still be some phonetic and other typographical errors. These errors are purely grammatical due to imperfections in the software program and should not be construed in any way to compromise the substance of the patient's medical care during this visit. Thank you for the opportunity and privilege in assisting you with this patient's care and management.
--- NOTE | 2024-06-24 15:20 | PC.SS ---
Update: Patient obtained trach yesterday, 06-23-24. Plan is to obtain PEG placement today.
[2024-06-24] MEDS: LABETALOL 100 MG TABLET 50 MG PO (21:59)
[2024-06-24] MEDS: DOCUSATE SOD LIQD 100 MG/10 ML UDC PO (21:59)
[2024-06-25] VITALS (68 sets, daily range): BP systolic 75–121; BP diastolic 43–76; PULSE 94–133; RESP 0–48; TEMP 36.4–38.7; O2SAT 84–100; BMI 25.2
[2024-06-25 05:27] LABS: Base Excess 13 (-3-3); HCO3 38 mEq/L (20-26); Inspired Oxygen, FIO2 21 %; O2 Saturation 94 % (91-98); PCO2 53 mmHg (32.0-48.0); PO2 66 mmHg (83-108); pH, Arterial 7.46 (7.35-7.45)
[2024-06-25 05:41] LABS: Basophils % (Auto) 0 % (0-2.5); Eosinophils # (Auto) 0.8 Thou/mm3 (0.0-0.5); Eosinophils % (Auto) 15 % (0-10); Hematocrit 27.7 % (41.0-53.0); Immature Granulocytes % (Auto) 1 % (0-0); Immature Granulocytes Auto 0.06 Thou/mm3 (0.00-0.00); Lymphocytes # (Auto) 0.4 Thou/mm3 (1.0-4.8); Lymphocytes % (Auto) 8 % (10-50); Mean Corpuscular Hemoglobin 24.6 pg (25.0-35.0); Mean Corpuscular Volume 79 fL (80-100); Monocytes # (Auto) 0.3 Thou/mm3 (0.0-0.8); Monocytes % (Auto) 5 % (0-12); Neutrophils # (Auto) 4.1 Thou/mm3 (1.8-7.7); Neutrophils % (Auto) 71 % (37-80); Nucleated Red Blood Cell # 0.03 Thou/mm3 (0.00-0.00); Nucleated Red Blood Cell % 1 /100 WBC (0); Platelet Count 208 Thou/mm3 (140-440); RDW Standard Deviation 73.1 fL (35.1-43.9); Red Blood Count 3.49 Miln/mm3 (4.50-5.90); White Blood Count 5.8 Thou/mm3 (3.8-10.6)
[2024-06-25 05:47] LABS: Allen Test Performed/OK; Puncture Site Right Radial
[2024-06-25 05:51] LABS: Hemoglobin 8.6 g/dL (13.5-16.0)
[2024-06-25] MEDS: Artificial Tears 225 DROP/15 ML BTL BOTH EYES ×4 (06:04→20:24)
[2024-06-25] MEDS: PHENOBARBITAL ELIX 20 MG/5 ML 90 MG GT ×3 (06:04→21:22)
[2024-06-25] MEDS: oxyCODONE HCL 5 MG IR TAB 10 MG GT ×3 (06:05→21:12)
[2024-06-25] MEDS: clonazePAM 0.5 MG TABLET 2 MG GT ×3 (06:05→21:12)
[2024-06-25 06:19] LABS: Alanine Aminotransferase 95 U/L (10-49); Albumin, Serum 3.1 gm/dL (3.5-5.0); Albumin/Globulin Ratio 1.1 (1.2-2.2); Alkaline Phosphatase 160 U/L (46-116); Anion Gap 5 (7-16); Aspartate Amino Transferase 74 U/L (0-34); BUN/Creatinine Ratio 28 Ratio (12-20); Bilirubin,Total 0.6 mg/dL (0.3-1.2); Blood Urea Nitrogen 17 mg/dL (9-23); Calcium 8.4 mg/dL (8.3-10.6); Calcium (Corrected) 9.1 mg/dL (8.5-10.1); Carbon Dioxide 35.9 mMol/L (20.0-31.0); Chloride 92 mMol/L (98-107); Creatinine (Component) 0.6 mg/dL (0.6-1.3); Estimated Creatinine Clearance 165.4 mL/min (>60); Globulin 2.8 gm/dL (2.3-3.5); Glucose 76 mg/dL (74-106); Magnesium 1.6 mg/dL (1.6-2.6); Osmolality,Calculated 266 (275-295); Phosphorous 1.8 mg/dL (2.4-5.1); Potassium 3.8 mMol/L (3.4-5.1); Sodium 133 mMol/L (136-145); Total Protein 5.9 gm/dL (5.7-8.2); Triglycerides 305 mg/dL (30-150); eGFR > 60 See Note
--- NOTE | 2024-06-25 06:34 | XR_ITS ---
Examination: AP chest single view Technique one AP portable semiupright chest single view Exam date and time: June 25, 2024 0648 hrs. Comparison June 24, 2024 and chest films dating to June 17, 2024 Indications: Difficulty breathing this week, hypoxic respiratory failure, severe pneumonia ARDS pattern on earlier chest imaging Findings: Again noted extensive bilateral lung opacity Normal heart size Tracheostomy tube tip 4.4 cm above sunil Intact osseous structures Impression: No significant change in extensive bilateral pneumonia/ARDS pattern
[2024-06-25] MEDS: MIDAZOLAM INJ 1 MG/ML VIAL 2 ML IV (08:29)
[2024-06-25] MEDS: NAPH,KPH MBDB 1 PACKET (1.5 GM) PO (08:42)
[2024-06-25] MEDS: Magnesium Sulfate 4 GM Ivpb 4 GM/50 ML BAG IV (08:42)
[2024-06-25] MEDS: PANTOPRAZOLE INJ 40 MG VIAL IVP (08:57)
[2024-06-25] MEDS: ALBUTEROL/IPRATROPIUM (Duoneb) RT SOL 3 ML NEBU INH (08:58)
[2024-06-25] MEDS: LABETALOL 100 MG TABLET 50 MG PO (08:58)
[2024-06-25] MEDS: QUEtiapine FUMARATE 25 MG TABLET 75 MG PO (08:59)
[2024-06-25] MEDS: predniSONE 20 MG TABLET PO (08:59)
[2024-06-25] MEDS: EMTRICITABINE 200 MG/TENOFOVIR 300 MG TAB (NON-FORM) 1 TAB PO (08:59)
[2024-06-25] MEDS: PATIROMER CALCIUM 8.4 GM PACKET (NON-FORM) NG (09:00)
[2024-06-25] MEDS: RALTEGRAVIR 400 MG TABLET NG ×2 (09:00→20:24)
[2024-06-25] MEDS: FERROUS SULF 325 MG TABLET PO (09:00)
[2024-06-25] MEDS: SULFAMETHOXAZOLE PO (09:36)
[2024-06-25] MEDS: TRIMETHOPRIM PO (09:36)
[2024-06-25] MEDS: Heparin/D5w 25K 250 ML Ivpb 25,000 UNIT/250 ML BAG 13.608 UNIT IV (10:34)
--- NOTE | 2024-06-25 10:36 | PD.INTPROG ---
Documentation for date of: 06/25/24 Subjective Subjective Interval history: This is a 39-year-old male who presented to the ER on 27 May. Initially he presented for shortness of breath cough and general malaise. Apparently he had been feeling unwell for the last 2 to 3 weeks. He did have some nonproductive cough. Chest x-ray showed bilateral diffuse infiltrates and the medicine team was contacted. He was admitted to the floor and placed on high flow nasal cannula initially at 100% FiO2 and started on antibiotics. He was started on fluconazole as well as Levaquin given that there was a high suspicion for underlying cocci pneumonia. He has had 2 rapid responses over the last 48 hours due to hypoxia and desatting. The patient is able to tolerate minimal movements prior to desatting. Today the ICU is consulted for further evaluation. The patient is currently on 80% FiO2 he is awake alert and oriented. He states that he has shortness of breath however minimal cough. He does complain of some upper abdominal/lower rib pain which he attributes to his recent cough. He denies any chest pain. Does note that he has had some night sweats and fever over the last several days. There has been no significant improvement since arrival 3 days ago. His respiratory status remains unchanged if not slightly worse. He is currently on isolation with airborne precautions behind a closed door. At this point in time due to an abundance of caution as well as closer observation and monitoring we will transfer to the ICU for ongoing management of his acute hypoxic respiratory failure. I did discuss with the patient the probable need for intubation in the near future. He is okay with intubation 05/31- no acute overnight events, decrease in FiO2 needs, feels better with less WOB today, afebrile, 06/05-patient had been returned to the floor where initially he did well. Apparently over the last 24 to 36 hours he has had an increase in FiO2 requirements with a rapid response called last night. Rapid response called again this morning. Patient stated that he felt tired and unable to keep up. He is on 100% FiO2. He desats with minimal exertion. The decision was made to bring him to the ICU for intubation. This was discussed with the patient while he was awake and his family as well. 06/06- overnight pt remained on NMB, versed/prop/fent. brisk UOP >100cc/hr , afebrile, labs this AM showed a K of 7.8 for which he received insulin/Ca/D50/kayexolate 06/07-patient underwent dialysis yesterday for refractory hyperkalemia, he remains on deep sedation however off of propofol and off of paralytic. Continues with a good urinary output. Afebrile, have been able to come down on his FiO2 however persistent bilateral infiltrates severe on exam without conclusive underlying etiology as of this point in time. 06/08-no acute overnight events, this a.m. attempted to decrease sedation however patient became agitated and desatted. Required increased to 100% FiO2. When patient was suctioned blood was returned from the ET tube. Patient required paralytic and bagging in order to improve his sats. 06/23-has had a prolonged hospital course thus far. Was unable to be weaned from the vent. He was scheduled for tracheostomy today which took place with Dr Ryan. His Versed drip was stopped today. He remains on propofol and fentanyl. He is on multiple p.o. medications for severe agitation. Net negative over the last 24 hours however net positive since hospital stay. Afebrile 06/24- s/p trach yesterday, scheduled for PEG today, afebrile, vent dysynchrony overnight reason for which his fent was increased, off of prop. good UOP, afebrile 06/25- no acute overnight evetns, s/p PEG yesterday, afebrile, good UOP, intermittent episodes of tachypnea, attempting to wean fent off Critical Care Note Critical care time (min.): 0 Exam Vital Signs Temp Pulse Resp BP Pulse Ox O2 Del Method O2 Flow Rate 98.7 F 122 H 41 H 120/73 93 L Mechanical Ventilation 40 06/25/24 00:00 06/25/24 08:58 06/25/24 08:50 06/25/24 08:58 06/25/24 08:50 06/24/24 04:00 06/09/24 12:16 FiO2 45 06/25/24 08:50 Narrative Exam Gen- chronically ill appearing, temp musc wasting noted, trached, nl body habitus HEENT- NC/AT, mucosa hydrated, sclera anicteric, trach in place without secretions, lip abrasions healing Chest- diminished, faint crackles at base, HRRR, tachycardic, tachypneic Abd- s/nt/bs+, PEG in place Ext- no edema, pulses palp, no clubbing, no mottling Vent AC VC Physical Exam Completion Physical Exam Complete?: Yes 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 06/25/24 05:04 06/25/24 05:04 Labs: Laboratory Results - last 24 hr 06/25/24 06/25/24 05:04 05:13 WBC 5.8 RBC 3.49 L Hgb 8.6 L Hct 27.7 L MCV 79 L MCH 24.6 L MCHC 31.0 RDW Std Deviation 73.1 H Plt Count 208 Neut % (Auto) 71 Lymph % (Auto) 8 L [facility] % (Auto) 5 Eos % (Auto) 15 H Baso % (Auto) 0 Neut # (Auto) 4.1 Lymph # (Auto) 0.4 L [facility] # (Auto) 0.3 Eos # (Auto) 0.8 H Baso # (Auto) 0.0 Immature Gran # (Auto) 0.06 H Absolute Nucleated RBC 0.03 H Immature Gran % 1 H Nucleated RBC % 1 H Puncture Site Right Radial ABG pH 7.46 H ABG pCO2 53 H ABG pO2 66 L D ABG HCO3 38 H ABG O2 Saturation 94 ABG Base Excess 13 H FiO2 21 Sodium 133 L Potassium 3.8 D Chloride 92 L Carbon Dioxide 35.9 H Anion Gap 5 L BUN 17 Creatinine 0.6 Estim Creat Clear Calc 165.4 eGFR > 60 BUN/Creatinine Ratio 28 H Glucose 76 Calculated Osmolality 266 L Calcium 8.4 Corrected Calcium 9.1 Phosphorus 1.8 L Magnesium 1.6 Total Bilirubin 0.6 AST 74 H ALT 95 H Alkaline Phosphatase 160 H D Total Protein 5.9 Albumin 3.1 L Globulin 2.8 Albumin/Globulin Ratio 1.1 L Triglycerides 305 H Assessment & Plan Problem List (1) Acute respiratory failure with hypoxia: Status: Acute Additional Assessment Additional Assessment: In brief this is a 39y M admitted for SOB and acute hypoxic resp failure with b/l PNA. 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 He was started on p.o. Seroquel and phenobarbital. He is also on Klonopin and oxycodone. Will continue to actively wean his IV drips - off fent today - seroquel increased - remains intermittently agitated but profoundly encephalopathic CV HTN- tx with labetalol yesterday however today well wnl Resp Acute hypoxic resp failure- s/p trach 06/23 - unable to ween 2/2 mentation/agitation - vent changes made yesterday since pt overbreathing the vent - today some resp acidosis noted therefore RR increased again - fu ABG with improved pH - PCP PNA- tx with bactrim and steroids - improved - Bactrim DS for PCP proph to be continued ARDS- improved with less FiO2 needs Renal HypoNa- 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 monitor - mild WILL- resolved HypoPhos- replete via PEG GI Transaminitis- Hep viral panel is neg, - US shows some mild hepatomegaly - probable cholestasis - trending down - doing well GI proph- PPI Endo Hypoglycemia- has been NPO for procedure - give 1 amp D50 today HyperTrig- may be 2/2 prop -> stopped yesterday - recheck in a few days Heme Microcytic Anemia-iron deficiency anemia -Slow drift downwards with hemoglobin of 7 today -Transfuse for hemoglobin less than 7 -Patient started on p.o. iron - improved #s today - doing well DVT right upper extremity -heparin drip which is on hold for PEG placement - restart heparin today ID PNA-secondary to PCP VAP - grew out VRE and staph hemolyticus on 06/09 - seen by ID and recs noted HIV/ AIDS- on HAART tx -> fu with ID - JAYME proph if CD4 <50 case d/w ICU team poss downgrade this afternoon labs, imaging, records reviewed ~38ccmin required for eval, exam, review, intervention , discussion and formulation of POC for this critically ill pt with resp failure at high risk for further and ongoing decompensation Provider Notation Provider Notation: Although this document has been carefully reviewed, there may still be some phonetic and other typographical errors. These errors are purely grammatical due to imperfections in the software program and should not be construed in any way to compromise the substance of the patient's medical care during this visit. Thank you for the opportunity and privilege in assisting you with this patient's care and management.
--- NOTE | 2024-06-25 11:01 | ESPR_ITS ---
Documentation for date of: 06/25/24 Subjective Subjective Narrative: Patient is seen and examined. No acute events Exam Vital Signs Temp Pulse Resp BP Pulse Ox O2 Del Method O2 Flow Rate 98.7 F 122 H 41 H 120/73 93 L Mechanical Ventilation 40 06/25/24 00:00 06/25/24 08:58 06/25/24 08:50 06/25/24 08:58 06/25/24 08:50 06/24/24 04:00 06/09/24 12:16 FiO2 45 06/25/24 08:50 Constitutional Comments: Intubated and sedated Routine Neck Exam Comments: Tracheostomy in place and intact without sign of bleeding Routine Abdominal Exam Comments: PEG tube in place and intact Assessment & Plan Assessment Additional comments: Status post tracheostomy and PEG tube placement Plan Routine tracheostomy care. May start tube feeding at 10 cc an hour today, advan ce tube feeding by 10 cc every 6 hours tomorrow until goal is reached Procedures Procedures Tracheostomy with size 8 cuffed
--- NOTE | 2024-06-25 12:52 | PD.RESPRO ---
Documentation for date of: 06/25/24 Subjective Subjective Interval history: 06/23/2024: The patient was examined and evaluated at the bedside this morning. Overnight propofol was cut down from 40 mcg to 30 mcg, fentanyl from 200 to 175 mcg. Heart rate has been in the range of 90s with RR improving to 24-27. Physical exam was significant for blisters over right forearm, abrasion over lower lip, and onychomycosis of right big toe. Hemoglobin was 7.0 down from 7.9 yesterday, ABG revealed pH 7.46 with pCO2 53 and HCO3 38. Sodium stable about 132, chloride 93 and phosphorus 1.8. Neutra-Phos 1 packet was given. Liver enzymes downtrending and stable. Mild increase in triglyceride with level of 205. 06/24/2024: The patient was examined and evaluated at the bedside this morning. Propofol was weaned off yesterday evening, and fentanyl was titrated down to 175 mcg/h, but this morning patient was agitated and overnight team increased the dose to 225 mcg/h. However, we were able to titrate the fentanyl dose to 50 mcg/h by this morning. The patient continues to have loose stools, and his laxatives were stopped. ABG this morning was revealing pH of 7.29 with pCO2 80. Ventilator setting was changed with tidal volume 450 and RR 30. Physical exam was significant for abrasion over lower lips, blisters measuring from 1 to 2 cm with few ruptured blisters over right forearm along with onychomycosis of right big toe. Hemoglobin this morning was 8.6, sodium continues to be 132, chloride 92, blood sugar trended down to 69 this morning and AST/ALT trending down to 92/112. Triglyceride trended up to 313 from 205. The plan is to titrate off the fentanyl and later titrate down the oral sedatives. Repeat ABG was stable. The patient is planned for PEG tube placement with Dr. Ryan today. The patient will also be planned for downgrade to MedSur unit followed by discharge at some acute rehab once he is completely out of IV sedatives. 06/25/2024: The patient was examined and evaluated at the bedside this morning. Fentanyl was weaned off this morning. Patient is mechanically ventilated, and there was mild increased work of breathing. Heart rate in 120s to 130s, RR 30-40, saturating 88 to 95% on FiO2 45%. Versed 1 Mg x 1 was given. Physical exam was significant for increased work of breathing with bilateral rhonchi, lower lips with mild and present, right arm with ruptured and crusting blisters and mild bleeding from tracheostomy tube insertion site. We added Seroquel 50 Mg x 1 and changed the dose of Seroquel to 100 Mg twice daily. We will resume the heparin drip for right upper extremity DVT. Prednisone was tapered down to 10 Mg daily. Labs are significant for hemoglobin is a stable at 8.6. Potassium 3.6, magnesium 1.6, phosphorus 1.8, triglyceride trended down to 305, and sodium 133. ABG revealed pH 7.46, pCO2 53, pO2 66 and bicarb 38. We will observe the patient and if his RR is in 30s, we will downgrade this patient to telemetry unit. Exam Vital Signs Temp Pulse Resp BP Pulse Ox O2 Del Method O2 Flow Rate 98.7 F 122 H 41 H 120/73 93 L Mechanical Ventilation 40 06/25/24 00:00 06/25/24 08:58 06/25/24 08:50 06/25/24 08:58 06/25/24 08:50 06/24/24 04:00 06/09/24 12:16 FiO2 45 06/25/24 08:50 Narrative Exam GEN: Critically ill, not acutely distressed, sedated and mechanically ventillated Neuro: Deferred due to sedation. HEENT: NCAT, tracheostomy tube on appropriate position, mild abrasion over lower lips improving CVS: RRR, S1S2 present, no M/R/G. No JVD Respi: Mechanically ventilated, b/l breath sounds heard with diffuse rhonchi, no wheezing/crackles. ABD: Soft, no grimace to palpation, bowel sounds present in all 4 quadrants, PEG tube in appropriate place Skin: warm, dry and intact. Extremities: Pulses 2+ in all extremities, RUE edema, ruptured vesicles 1-2 cm on the rt forearm surface that has been healing. Objective Labs 06/25/24 05:04 06/25/24 05:04 Labs: Laboratory Results - last 24 hr 06/25/24 06/25/24 06/25/24 05:04 05:13 11:02 WBC 5.8 RBC 3.49 L Hgb 8.6 L Hct 27.7 L MCV 79 L MCH 24.6 L MCHC 31.0 RDW Std Deviation 73.1 H Plt Count 208 Neut % (Auto) 71 Lymph % (Auto) 8 L [place] % (Auto) 5 Eos % (Auto) 15 H Baso % (Auto) 0 Neut # (Auto) 4.1 Lymph # (Auto) 0.4 L [place] # (Auto) 0.3 Eos # (Auto) 0.8 H Baso # (Auto) 0.0 Immature Gran # (Auto) 0.06 H Absolute Nucleated RBC 0.03 H Immature Gran % 1 H Nucleated RBC % 1 H Puncture Site Right Radial Cancelled ABG pH 7.46 H Cancelled ABG pCO2 53 H Cancelled ABG pO2 66 L D Cancelled ABG HCO3 38 H Cancelled ABG O2 Saturation 94 Cancelled ABG Base Excess 13 H Cancelled Oxygen Liter Flow Cancelled FiO2 21 Cancelled Sodium 133 L Potassium 3.8 D Chloride 92 L Carbon Dioxide 35.9 H Anion Gap 5 L BUN 17 Creatinine 0.6 Estim Creat Clear Calc 165.4 eGFR > 60 BUN/Creatinine Ratio 28 H Glucose 76 Calculated Osmolality 266 L Calcium 8.4 Corrected Calcium 9.1 Phosphorus 1.8 L Magnesium 1.6 Total Bilirubin 0.6 AST 74 H ALT 95 H Alkaline Phosphatase 160 H D Total Protein 5.9 Albumin 3.1 L Globulin 2.8 Albumin/Globulin Ratio 1.1 L Triglycerides 305 H ABG Interpretation ABG results: 05/27/24 05/29/24 05/29/24 23:37 10:44 22:08 ABG pH 7.51 H 7.50 H 7.48 H ABG pCO2 28 L 32 32 ABG pO2 75 L 79 L 145 H D ABG HCO3 23 25 24 ABG O2 Saturation 96 95 98 ABG Base Excess 0 2 1 05/30/24 05/31/24 06/04/24 08:45 04:54 02:10 ABG pH 7.47 H 7.45 7.45 ABG pCO2 35 38 36 ABG pO2 86 D 82 L 139 H ABG HCO3 26 26 25 ABG O2 Saturation 97 96 98 ABG Base Excess 2 2 1 06/04/24 06/05/24 06/05/24 18:16 11:36 12:59 ABG pH 7.44 7.11 L* D 7.20 L ABG pCO2 36 94 H* D 68 H D ABG pO2 80 L D 150 H D 121 H D ABG HCO3 24 30 H 26 ABG O2 Saturation 94 97 97 ABG Base Excess 0 -2 -3 06/05/24 06/06/24 06/06/24 19:25 04:13 15:27 ABG pH 7.22 L 7.27 L 7.30 L ABG pCO2 64 H 57 H 60 H ABG pO2 122 H 153 H D 74 L D ABG HCO3 26 26 29 H ABG O2 Saturation 97 99 H 92 ABG Base Excess -3 -2 2 06/07/24 06/07/24 06/08/24 03:55 09:59 04:20 ABG pH 7.41 D 7.43 7.45 ABG pCO2 56 H 55 H 50 H ABG pO2 293 H D 78 L D 75 L ABG HCO3 36 H 37 H 35 H ABG O2 Saturation 99 H 95 94 ABG Base Excess 10 H 11 H 10 H 06/08/24 06/08/24 06/08/24 11:05 11:50 13:18 ABG pH 7.17 L* D 7.10 L* 7.15 L* ABG pCO2 95 H* D 115 H* D 88 H* D ABG pO2 89 75 L 72 L ABG HCO3 34 H 36 H 31 H ABG O2 Saturation 92 84 L 85 L ABG Base Excess 3 4 H 0 06/08/24 06/09/24 06/09/24 17:02 01:33 03:15 ABG pH 7.18 L* 7.22 L 7.27 L ABG pCO2 50 H D 91 H* D 82 H* ABG pO2 82 L 105 D 86 ABG HCO3 19 L 37 H 38 H ABG O2 Saturation 93 97 95 ABG Base Excess -9 L 7 H 9 H 06/09/24 06/09/24 06/10/24 05:08 12:52 04:40 ABG pH 7.31 L 7.33 L 7.30 L ABG pCO2 75 H* 57 H D 78 H* D ABG pO2 97 158 H D 65 L D ABG HCO3 38 H 30 H 38 H ABG O2 Saturation 97 99 H 90 L ABG Base Excess 10 H 3 9 H 06/10/24 06/11/24 06/12/24 09:40 04:19 04:15 ABG pH 7.27 L 7.35 7.48 H D ABG pCO2 88 H* D 86 H* 63 H D ABG pO2 65 L 70 L 76 L ABG HCO3 40 H 48 H 47 H ABG O2 Saturation 89 L 93 95 ABG Base Excess 10 H 19 H 21 H 06/13/24 06/14/24 06/15/24 07:22 04:32 03:45 ABG pH 7.46 H 7.48 H 7.46 H ABG pCO2 56 H 40 D 37 ABG pO2 80 L 64 L 71 L ABG HCO3 39 H 30 H 27 H ABG O2 Saturation 95 92 94 ABG Base Excess 13 H 6 H 3 06/15/24 06/15/24 06/15/24 10:17 12:20 14:20 ABG pH 7.01 L* D 7.00 L* 7.03 L* ABG pCO2 122 H* D 130 H* 125 H* ABG pO2 91 D 88 82 L ABG HCO3 31 H 32 H 33 H ABG O2 Saturation 88 L 88 L 87 L ABG Base Excess -3 -2 -1 06/15/24 06/15/24 06/16/24 15:55 20:39 00:35 ABG pH 7.03 L* 7.08 L* 7.10 L* ABG pCO2 121 H* 116 H* 118 H* ABG pO2 99 117 H 102 ABG HCO3 32 H 34 H 37 H ABG O2 Saturation 93 97 96 ABG Base Excess -1 2 4 H 06/16/24 06/16/24 06/17/24 04:45 08:55 05:06 ABG pH 7.17 L* 7.28 L D 7.33 L ABG pCO2 112 H* 88 H* D 96 H* ABG pO2 155 H D 98 D 126 H D ABG HCO3 41 H 41 H 50 H ABG O2 Saturation 99 H 98 99 H ABG Base Excess 9 H 12 H 21 H 06/17/24 06/17/24 06/18/24 10:58 13:55 04:16 ABG pH 7.29 L 7.29 L 7.33 L ABG pCO2 106 H* D 106 H* 86 H* D ABG pO2 58 L* D 61 L 77 L ABG HCO3 51 H 51 H 45 H ABG O2 Saturation 87 L 88 L 95 ABG Base Excess 21 H 21 H 17 H 06/19/24 06/20/24 06/21/24 04:18 04:49 04:06 ABG pH 7.42 7.36 7.44 ABG pCO2 63 H D 74 H* D 61 H D ABG pO2 66 L 55 L* 202 H D ABG HCO3 41 H 42 H 42 H ABG O2 Saturation 93 87 L 100 H ABG Base Excess 15 H 14 H 16 H 06/22/24 06/23/24 06/24/24 04:18 04:29 04:25 ABG pH 7.45 7.46 H 7.29 L D ABG pCO2 57 H 53 H 80 H* D ABG pO2 60 L D 99 D 88 ABG HCO3 40 H 38 H 38 H ABG O2 Saturation 91 99 H 96 ABG Base Excess 14 H 13 H 9 H 06/24/24 06/25/24 06/25/24 08:50 05:13 11:02 ABG pH 7.40 D 7.46 H Cancelled ABG pCO2 61 H D 53 H Cancelled ABG pO2 110 H D 66 L D Cancelled ABG HCO3 38 H 38 H Cancelled ABG O2 Saturation 99 H 94 Cancelled ABG Base Excess 12 H 13 H Cancelled Quality Measures Quality Measures sepsis Current suspected stage: sepsis Possible source: pulmonary, GI tract/intra-abdominal, genitourinary and skin/soft tissue Blood cultures ordered: yes Antibiotic ordered: Yes Assessment & Plan Assessment Current Active Medications: Generic Name Dose Route Start Last Admin Trade Name Freq PRN Reason Stop Dose Admin Acetaminophen 975 mg 06/09/24 14:27 06/15/24 02:56 Acetaminophen Munira 325 Mg/10 Ml Udc PO 06/26/24 12:10 975 mg Q6H PRN Administration Pain 1-3 and Fever >101.5 Albuterol/Ipratropium 3 ml 06/05/24 11:40 06/25/24 08:58 Albuterol/Ipratropium (Duoneb) Rt Munira 3 Ml Nebu INH 07/05/24 14:59 3 ml Q4HRRT PRN Administration Wheezing Artificial Tears 1 drop 06/18/24 12:00 06/25/24 06:04 Artificial Tears 225 Drop/15 Ml Btl BOTH EYES 07/18/24 11:59 1 drop QID JUAN JOSE Administration Clonazepam 2 mg 06/22/24 14:00 06/25/24 06:05 Clonazepam 0.5 Mg Tablet GT 06/27/24 13:59 2 mg TID JUAN JOSE Administration Dextrose 25 ml 06/06/24 08:20 Dextrose 50%-Water Inj 50 Ml Syringe IV 07/06/24 08:19 Q15MIN PRN BG 50-70 responsive npo pt Dextrose 50 ml 06/06/24 08:20 Dextrose 50%-Water Inj 50 Ml Syringe IV 07/06/24 08:19 Q15MIN PRN BG <50 OR BG <70 & pt unresponsive Docusate Sodium 100 mg 06/25/24 09:13 Docusate Sod Liqd 100 Mg/10 Ml Udc PO 07/22/24 08:59 BID PRN Constipation Protocol Emtricitabine/Tenofovir 1 tab 06/16/24 12:30 06/25/24 08:59 Emtricitabine 200 Mg/Tenofovir 300 Mg Tab (Non-Form) PO 07/16/24 12:29 1 tab QDAY JUAN JOSE Administration Ferrous Sulfate 325 mg 06/23/24 10:00 06/25/24 09:00 Ferrous Sulf 325 Mg Tablet PO 07/23/24 09:59 325 mg QDAY JUAN JOSE Administration Glucagon 1 mg 06/06/24 08:20 Glucagon Inj 1 Mg Vial IM Q15MIN PRN BG <70, and no IV access Heparin Sodium/Dextrose 25,000 unit in 250 mls @ 13.608 mls/hr 06/15/24 14:45 06/25/24 10:34 Heparin In D5w Ivpb IV 06/29/24 14:44 18 units/kg/hr .[id number] JUAN JOSE 13.608 mls/hr Administration Protocol 18 UNITS/KG/HR Propofol 1,000 mg in 100 mls @ 2.487 mls/hr 06/18/24 12:17 06/23/24 17:21 Diprivan Ivpb IV 07/09/24 14:25 Infused .Q24H PRN Titration PER PROTOCOL Protocol 5 MCG/KG/MIN Labetalol HCl 5 mg 06/23/24 18:13 06/23/24 18:20 Labetalol Inj 5 Mg/Ml Vial 20 Ml IVP 07/23/24 18:14 5 mg Q6H PRN Administration SBP > 180 or DBP > 110 Labetalol HCl 50 mg 12/06/24 21:00 06/25/24 08:58 Labetalol 100 Mg Tablet PO 07/24/24 20:59 50 mg BID JUAN JOSE Administration Ondansetron HCl 4 mg 05/29/24 21:51 06/04/24 17:44 Ondansetron Inj 2 Mg/Ml Inj 2 Ml IV 06/28/24 21:50 4 mg Q6HR PRN Administration NAUSEA OR VOMITING Protocol Oxycodone HCl 10 mg 06/21/24 18:00 06/25/24 06:05 Oxycodone Hcl 5 Mg Ir Tab GT 06/26/24 17:59 10 mg TID JUAN JOSE Administration Pantoprazole Sodium 40 mg 06/06/24 09:00 06/25/24 08:57 Pantoprazole Inj 40 Mg Vial IVP 07/06/24 08:59 40 mg QDAY JUAN JOSE Administration Patiromer 8.4 gm 06/09/24 10:45 06/25/24 09:00 Patiromer Calcium 8.4 Gm Packet (Non-Form) NG 07/09/24 10:44 8.4 gm QDAY JUAN JOSE Administration Phenobarbital 90 mg 06/22/24 14:00 06/25/24 06:04 Phenobarbital Elix 20 Mg/5 Ml Udc GT 07/06/24 13:59 90 mg TID JUAN JOSE Administration Prednisone 10 mg 06/26/24 09:00 Prednisone 5 Mg Tablet PO 07/26/24 08:59 QDAY JUAN JOSE Quetiapine Fumarate 100 mg 06/25/24 21:00 Quetiapine Fumarate 25 Mg Tablet PO 07/25/24 20:59 BID JUAN JOSE Raltegravir 400 mg 06/23/24 21:00 06/25/24 09:00 Raltegravir 400 Mg Tablet NG 06/30/24 20:59 400 mg BID JUAN JOSE Administration Trimethoprim/Sulfamethoxazole 20 ml 06/23/24 09:00 06/25/24 09:36 Trimethoprim/Sulfa Susp 1 Ml PO 06/22/25 12:00 20 ml QDAY JUAN JOSE Administration Plan 39-year-old male patient with no PMHx who initially presented to [facility] on 05/[facility]/2024 with a chief complaint of shortness of breath and cough, with associated chills, body aches, generalized weakness, fever, and night sweats beginning weeks prior but progressively worsening over a few days is currently being treated for acute hypoxic respiratory failure secondary to PCP pneumonia that was complicated by ventilator associated pneumonia. Patient is currently on tracheostomy tube and mechanically ventilated. 06/25/2024: The patient was examined and evaluated at the bedside this morning. Fentanyl was weaned off this morning. Patient is mechanically ventilated, and there was mild increased work of breathing. Heart rate in 120s to 130s, RR 30-40, saturating 88 to 95% on FiO2 45%. Versed 1 Mg x 1 was given. Physical exam was significant for increased work of breathing with bilateral rhonchi, lower lips with mild and present, right arm with ruptured and crusting blisters and mild bleeding from tracheostomy tube insertion site. We added Seroquel 50 Mg x 1 and changed the dose of Seroquel to 100 Mg twice daily. We will resume the heparin drip for right upper extremity DVT. Prednisone was tapered down to 10 Mg daily. Labs are significant for hemoglobin is a stable at 8.6. Potassium 3.6, magnesium 1.6, phosphorus 1.8, triglyceride trended down to 305, and sodium 133. ABG revealed pH 7.46, pCO2 53, pO2 66 and bicarb 38. We will observe the patient and if his RR is in 30s, we will downgrade this patient to telemetry unit. NEURO #Acute encephalopathy, secondary to prolonged sedation 06/05/2024 Patient was intubated, sedated, and paralyzed for ARDS. Currently we tapered down IV sedatives, and switched to enteral sedatives with phenobarbital 90 Mg 3 times daily, clonazepam 2 Mg 3 times daily and oxycodone 10 Mg 3 times daily. -We will continue to taper down the enteral sedatives as well #Fever, resolved CARDIO #Right upper extremity DVT. -Doppler US right upper extremity 06/17/24: revealed RUE DVT -On Heparin Drip #Sinus tachycardia Tachycardia most likely secondary to respiratory distress and agitation 2/2 AHRF in the setting of tapering down sedatives -Continue to treat the underlying cause #Septic shock, resolved Secondary to severe extensive bilateral pneumonia. -Patient is out of pressor support and completed the dose of antibiotics PULM #Chronic hypoxic respiratory failure Secondary to #Bilateral pneumocystis jirovecii pneumonia #Healthcare associated pneumonia, resolved #Ventilator associated pneumonia, resolved #Chronic respiratory distress syndrome #S/P Tracheostomy Patient presented with dyspnea and cough, requiring 4L NC on first ED evaluation, and history of chills, body aches, generalized weakness, fever, and night sweats progressively worsening over the prior weeks. Approx 20-pack year smoking history, occasional marijuana. 06/17/2024 oxygenation and hypercapnia improved, was put in supine position, continued to be paralyzed. Plan: -Ventilation on volume control, saturation to be maintained >90% -Continue Bactrim 06/01/24 - completed on 06/22/24, but extended as per ID for PCP pneumonia prophylaxis in the setting of CD4 count of 116 -On linezolid 600 mg q12h 06/15/24-06/22/24 -Continue micafungin for further management of PCP pneumonia and as fungal culture is pending from respiratory circulation 100 mg qday 06/09/24- -Fungal cultures from BAL pending -DuoNebs q4h as needed -New blood cultures sent 06/15?negative for growth -New ET culture sent 06/15?negative for growth -Continue to wean off from sedatives so that the patient can be discharged to subacute rehab -Prednisone tapered down to 10 Mg daily GI GI prophylaxis: Pantoprazole 40 mg IV qday #Elevated LFTs, improving Likely due to propofol and bactrim. Mildly elevated, liver US 05/30/2024 showed normal gallbladder and hepatomegaly without lesions or evidence of obstructions. Hep panel negative. LFTs downtrended compared to 06/06/24. 06/15/2024 Floyd in LFTs with AST 303, ALT 420, Tbili 1.3, therefore right upper quadrant US ordered, negative for cholecystitis/cholelithiasis, hepatitis panel negative. No obvious changes on physical exam. 06/20/24: LFT AST/ALT/ALP : 99/123/118 Plan: -Continue monitoring #Hypertriglyceridemia, trending down More likely secondary to propofol use -We will repeat lipid panel in couple of days. NEPHRO #Hypophosphatemia #WILL, resolved #Hyperkalemia---Resolved #Hyperphosphatemia, resolved Plan: -Continue Veltassa 8.4 gm qday for potassium chelation -Nephrology Dr. Song is following for as-needed dialysis due to hyperkalemia -Continue free water at 40 ml/hr -Maintain euvolemia -Monitor CMP, especially potassium -Replete electrolytes as needed. #Mild hyponatremia Secondary to SIADH due to acute hypoxic respiratory failure leading to pulmonary distress -Continue to monitor #Primary Respiratory acidosis over compensated by metabolic alkalosis Secondary to increased work of breathing and increased RR 2/2 chronic hypoxic respiratory failure and chronic respiratory distress syndrome in the setting of tapering down of IV sedatives -ABGs revealed pH of 7.46, pCO2 53, pO2 66 and bicarb 38. -We will treat the underlying cause HEME #Leukocytosis, resolved Fluctuating WBC. In the setting of likely infection, inflammation, and corticosteroids. Plan: -Treatment of pneumonia as above #Microcytic anemia 2/2 STEPHY and Inflammatory anemia Stable, has not required any transfusions this admission thus far. Clinically no evidence of bleeding. Iron panel shows iron 17, TIBC 262, iron saturation 6, unsaturated iron binding 245. Peripheral blood film confirms microcytic hypochromic anemia with target cells. Also daily lab draws contributing. Plan: -Started on oral ferrous sulfate 325 Mg daily -Monitor H&H. Transfusing for Hgb <7 #Thrombocytosis, resolved Likely reactive. -Continue to monitor ENDO #Hypoglycemia, resolved Blood glucose this morning was 69, likely secondary to increased metabolic acid complicated by stopping enteral feeding -Bolus D50W given -Repeat blood sugar was stable -We will resume enteral feeding after PEG tube placement ID #Bilateral pneumocystis pneumonia #Healthcare associated pneumonia #Ventilator associated pneumonia Negative studies: Cocci IgM and IgG, Hepatitis panel, Syphilis, Legionella, H.flu, N.meningitidis, Strep B, Strep pneumoniae, COVID, RSV, Flu A & B. TB quantiferon GOLD-indeterminate, however 06/05 AFB negative, CMV IgM, cryptococcal antigen negative. G6PD levels came back normal for consideration of dapsone alternative to Bactrim if needed. Patient completed 5 day course of azithromycin, 16 days of Zosyn. See Pulm for timeline of antimicrobial coverage. Plan: -Antibiotcs Bactrim for prevention of PCP pneumonia in the setting of CD4 count of 116 and antifungal micafungin as fungal culture from ET tube secretion is pending. -Fungal cultures from BAL pending -New blood cultures sent 06/15?negative for growth -New ET culture sent 06/15?negative for growth #AIDS/HIV Patient has Stage 4 HIV, AIDS-defining illness with opportunistic infection. 06/07/2024 Bronchoalveolar lavage cytology shows Pneumocystis jirovecii. Also other fungi, possibly Kassandra. Kassandra is most likely a contaminant. Blood [id number] also positive. 06/08/2024 HIV quant 5.66 million copies. HIV 1 positive confirmed. 06/09/2024 Patient's decision maker, Francesca, was informed of diagnosis due to critical state of patient. Absolute CD4 count 87 and 22% on 06/02. History/risk factors: History of injection anabolic androgenic steroid and testosterone use, possible unclean needles. History of incarceration (unknown time). Tattoos received as a teenager. Has 1 female sexual partner last 5 years, denies others. -Continue HAART: emtricitabine / tenofovir (Truvada) and raltegravir initiated 06/09/24 -Patient is not aware of his diagnosis as he has been intubated and sedated before results returned. Will require complete education and counseling on the disease if his mental status and clinical condition improves. MSK #Elevated creatine kinase -Down trended SKIN #Lower lip abrasion #Right forearm blisters -Monitor closely DVT prophylaxis: On heparin drip for treatment of right upper extremity DVT GI prophylaxis: Pantoprazole 40 mg IV qday Diet: Tube feeds Nepro Tijerina: Present (06/05- ) Lines: Peripheral IV Antibiotics: Bactrim, micafungin CODE STATUS: FULL CODE Reason for ICU care: Acute hypoxic respiratory failure secondary to bilateral pneumonia/ARDS Patient plan of care was discussed with the attending physician, Dr. Walsh. Jeff Pacheco MD, PGY2
[2024-06-25] MEDS: ACETAzolaMIDE SOD 500 MG in SODIUM CHLORIDE 0.9% (P) 50 ML 100 MG IV (13:44)
[2024-06-25] MEDS: QUEtiapine FUMARATE 25 MG TABLET 50 MG PO (13:45)
[2024-06-25] MEDS: ACETAMINOPHEN SOL 325 MG/10 ML UDC 975 MG PO (14:53)
[2024-06-25 15:08] LABS: Partial Thromboplastin Time 42.5 Seconds (22.0-36.0)
[2024-06-25 16:02] LABS: Base Excess 6 (-3-3); HCO3 32 mEq/L (20-26); O2 Saturation 86 % (91-98); PCO2 53 mmHg (32.0-48.0); pH, Arterial 7.39 (7.35-7.45)
[2024-06-25 16:05] LABS: Allen Test Not Performed; Inspired Oxygen, FIO2 45 %; Puncture Site Left Radial
[2024-06-25 16:07] LABS: PO2 55 mmHg (83-108)
[2024-06-25] MEDS: Norepinephrine/NS 16mg/250ml 16 MG/250 ML BAG 3.417 MG IV (16:26)
[2024-06-25] MEDS: HEPARIN SOD INJ 5000 UNIT/ML VIAL 2900 UNIT IV (16:40)
[2024-06-25] MEDS: fentaNYL 2,500 MCG/250 ML BAG 2,500 MCG/250 ML BAG IV (16:42)
[2024-06-25] MEDS: Heparin/D5w 25K 250 ML Ivpb 25,000 UNIT/250 ML BAG 14.58 UNIT IV (19:00)
[2024-06-25] MEDS: QUEtiapine FUMARATE 25 MG TABLET 100 MG PO (20:24)
[2024-06-25 23:23] LABS: Partial Thromboplastin Time 64.6 Seconds (22.0-36.0)
[2024-06-26] VITALS (60 sets, daily range): BP systolic 69–121; BP diastolic 42–76; PULSE 91–129; RESP 10–43; TEMP 36.4–39.1; O2SAT 87–100; BMI 24.7
[2024-06-26] MEDS: ACETAMINOPHEN SOL 325 MG/10 ML UDC 975 MG PO (04:01)
[2024-06-26 04:32] LABS: Base Excess 5 (-3-3); HCO3 30 mEq/L (20-26); Inspired Oxygen, FIO2 45 %; O2 Saturation 89 % (91-98); PCO2 48 mmHg (32.0-48.0); pH, Arterial 7.41 (7.35-7.45)
[2024-06-26 04:39] LABS: Allen Test Performed/OK; Puncture Site Right Radial
[2024-06-26 04:40] LABS: PO2 58 mmHg (83-108)
[2024-06-26] MEDS: Heparin/D5w 25K 250 ML Ivpb 25,000 UNIT/250 ML BAG 14.58 UNIT IV (04:52)
[2024-06-26] MEDS: Artificial Tears 225 DROP/15 ML BTL BOTH EYES ×4 (05:25→20:43)
[2024-06-26] MEDS: oxyCODONE HCL 5 MG IR TAB 10 MG GT ×2 (05:38→13:43)
[2024-06-26] MEDS: clonazePAM 0.5 MG TABLET 2 MG GT ×3 (05:38→23:38)
[2024-06-26 05:47] LABS: Basophils % (Auto) 0 % (0-2.5); Eosinophils # (Auto) 0.8 Thou/mm3 (0.0-0.5); Eosinophils % (Auto) 13 % (0-10); Hematocrit 28.8 % (41.0-53.0); Hemoglobin 8.9 g/dL (13.5-16.0); Immature Granulocytes % (Auto) 1 % (0-0); Immature Granulocytes Auto 0.07 Thou/mm3 (0.00-0.00); Lymphocytes # (Auto) 0.4 Thou/mm3 (1.0-4.8); Lymphocytes % (Auto) 7 % (10-50); Mean Corpuscular HGB Conc 30.9 g/dl (31.0-37.0); Mean Corpuscular Hemoglobin 24.5 pg (25.0-35.0); Mean Corpuscular Volume 79 fL (80-100); Monocytes # (Auto) 0.3 Thou/mm3 (0.0-0.8); Monocytes % (Auto) 6 % (0-12); Neutrophils # (Auto) 4.5 Thou/mm3 (1.8-7.7); Neutrophils % (Auto) 73 % (37-80); Nucleated Red Blood Cell % 0 /100 WBC (0); Platelet Count 272 Thou/mm3 (140-440); RDW Standard Deviation 73.6 fL (35.1-43.9); Red Blood Count 3.64 Miln/mm3 (4.50-5.90); White Blood Count 6.2 Thou/mm3 (3.8-10.6)
[2024-06-26 05:56] LABS: Partial Thromboplastin Time 46.3 Seconds (22.0-36.0)
--- NOTE | 2024-06-26 06:09 | XR_ITS ---
Examination: AP chest single view Technique: AP portable semiupright chest single view Exam date and time: June 26, 2024 0623 hrs. Comparison June 25, 2024, chest films dating to June 17, 2024 Findings: Extensive bilateral pneumonia ARDS pattern again depicted Tracheostomy tube tip 4 cm above sunil Normal heart size No pneumothorax Intact osseous structures Impression: No significant change in extensive bilateral pneumonia ARDS pattern
[2024-06-26 06:11] LABS: Alanine Aminotransferase 102 U/L (10-49); Albumin, Serum 3.1 gm/dL (3.5-5.0); Albumin/Globulin Ratio 1.1 (1.2-2.2); Alkaline Phosphatase 168 U/L (46-116); Anion Gap 5 (7-16); Aspartate Amino Transferase 95 U/L (0-34); BUN/Creatinine Ratio 26 Ratio (12-20); Bilirubin,Total 0.5 mg/dL (0.3-1.2); Blood Urea Nitrogen 18 mg/dL (9-23); Calcium (Corrected) 8.7 mg/dL (8.5-10.1); Carbon Dioxide 29.7 mMol/L (20.0-31.0); Chloride 95 mMol/L (98-107); Creatinine (Component) 0.7 mg/dL (0.6-1.3); Estimated Creatinine Clearance 129.1 mL/min (>60); Globulin 2.9 gm/dL (2.3-3.5); Glucose 125 mg/dL (74-106); Magnesium 1.7 mg/dL (1.6-2.6); Osmolality,Calculated 263 (275-295); Phosphorous 1.7 mg/dL (2.4-5.1); Potassium 3.5 mMol/L (3.4-5.1); Sodium 130 mMol/L (136-145); eGFR > 60 See Note
[2024-06-26] MEDS: PHENOBARBITAL ELIX 20 MG/5 ML 90 MG GT ×3 (06:14→23:36)
[2024-06-26] MEDS: HEPARIN SOD INJ 5000 UNIT/ML VIAL 2850 UNIT IV (06:32)
[2024-06-26] MEDS: NAPH,KPH MBDB 1 PACKET (1.5 GM) PO ×5 (09:39→20:43)
[2024-06-26] MEDS: PANTOPRAZOLE INJ 40 MG VIAL IVP (09:39)
[2024-06-26] MEDS: QUEtiapine FUMARATE 25 MG TABLET 100 MG PO ×2 (09:40→20:44)
[2024-06-26] MEDS: LABETALOL 100 MG TABLET 50 MG PO ×2 (09:40→20:42)
[2024-06-26] MEDS: predniSONE 5 MG TABLET 10 MG PO (09:40)
[2024-06-26] MEDS: FERROUS SULF 325 MG TABLET PO (09:42)
[2024-06-26] MEDS: RALTEGRAVIR 400 MG TABLET NG ×2 (09:42→21:41)
[2024-06-26] MEDS: Magnesium Sulfate 2 GM Ivpb 2 GM/50 ML BAG IV (09:42)
[2024-06-26] MEDS: TRIMETHOPRIM PO (09:45)
[2024-06-26] MEDS: PATIROMER CALCIUM 8.4 GM PACKET (NON-FORM) NG (09:45)
[2024-06-26] MEDS: SULFAMETHOXAZOLE PO (09:45)
[2024-06-26] MEDS: EMTRICITABINE 200 MG/TENOFOVIR 300 MG TAB (NON-FORM) 1 TAB PO (09:45)
[2024-06-26 11:46] LABS: Base Excess 6 (-3-3); HCO3 31 mEq/L (20-26); Inspired Oxygen, FIO2 50 %; O2 Saturation 92 % (91-98); PCO2 43 mmHg (32.0-48.0); pH, Arterial 7.46 (7.35-7.45)
[2024-06-26 11:48] LABS: Allen Test Performed/OK; Puncture Site Left Radial
[2024-06-26 11:50] LABS: PO2 58 mmHg (83-108)
[2024-06-26] MEDS: HYDROmorphone INJ 2 MG/ML VIAL IVP (12:29)
--- NOTE | 2024-06-26 12:53 | PD.RESPRO ---
Documentation for date of: 06/26/24 Subjective Subjective Interval history: 06/23/2024: The patient was examined and evaluated at the bedside this morning. Overnight propofol was cut down from 40 mcg to 30 mcg, fentanyl from 200 to 175 mcg. Heart rate has been in the range of 90s with RR improving to 24-27. Physical exam was significant for blisters over right forearm, abrasion over lower lip, and onychomycosis of right big toe. Hemoglobin was 7.0 down from 7.9 yesterday, ABG revealed pH 7.46 with pCO2 53 and HCO3 38. Sodium stable about 132, chloride 93 and phosphorus 1.8. Neutra-Phos 1 packet was given. Liver enzymes downtrending and stable. Mild increase in triglyceride with level of 205. 06/24/2024: The patient was examined and evaluated at the bedside this morning. Propofol was weaned off yesterday evening, and fentanyl was titrated down to 175 mcg/h, but this morning patient was agitated and overnight team increased the dose to 225 mcg/h. However, we were able to titrate the fentanyl dose to 50 mcg/h by this morning. The patient continues to have loose stools, and his laxatives were stopped. ABG this morning was revealing pH of 7.29 with pCO2 80. Ventilator setting was changed with tidal volume 450 and RR 30. Physical exam was significant for abrasion over lower lips, blisters measuring from 1 to 2 cm with few ruptured blisters over right forearm along with onychomycosis of right big toe. Hemoglobin this morning was 8.6, sodium continues to be 132, chloride 92, blood sugar trended down to 69 this morning and AST/ALT trending down to 92/112. Triglyceride trended up to 313 from 205. The plan is to titrate off the fentanyl and later titrate down the oral sedatives. Repeat ABG was stable. The patient is planned for PEG tube placement with Dr. Ryan today. The patient will also be planned for downgrade to MedSur unit followed by discharge at some acute rehab once he is completely out of IV sedatives. 06/25/2024: The patient was examined and evaluated at the bedside this morning. Fentanyl was weaned off this morning. Patient is mechanically ventilated, and there was mild increased work of breathing. Heart rate in 120s to 130s, RR 30-40, saturating 88 to 95% on FiO2 45%. Versed 1 Mg x 1 was given. Physical exam was significant for increased work of breathing with bilateral rhonchi, lower lips with mild and present, right arm with ruptured and crusting blisters and mild bleeding from tracheostomy tube insertion site. We added Seroquel 50 Mg x 1 and changed the dose of Seroquel to 100 Mg twice daily. We will resume the heparin drip for right upper extremity DVT. Prednisone was tapered down to 10 Mg daily. Labs are significant for hemoglobin is a stable at 8.6. Potassium 3.6, magnesium 1.6, phosphorus 1.8, triglyceride trended down to 305, and sodium 133. ABG revealed pH 7.46, pCO2 53, pO2 66 and bicarb 38. We will observe the patient and if his RR is in 30s, we will downgrade this patient to telemetry unit. 06/26/2024: The patient was examined and evaluated at the bedside this morning. Patient is off of any sedatives or pressor support. Patient is mechanically ventilated through tracheostomy tube. The patient had 1 episode of fever overnight, and blood culture is pending. His heart rate has been in the range of 120s to 130s with RR between 28-36, saturating 92% on FiO2 50%. The patient received 2 mg IV hydromorphone x 1. His hemoglobin has been stable at 8.9, we will continue with oral ferrous sulfate 325 Mg daily, ABG revealed pH 7.46, pCO2 43, pO2 58 and bicarb 31. He received 1 dose of Diamox 500 Mg IV, sodium 130, potassium 3.5 and Veltassa was discontinued, phosphorus was 1.4 and we will repeat it further. The patient will be downgraded to telemetry unit we will continue with enteral sedatives phenobarbital 90 Mg 3 times daily, clonazepam 2 mg 3 times daily, oxycodone 10 mg 3 times daily and Seroquel 100 Mg twice daily. His sedatives will be continued for 2 weeks at this point and after that the plan is to taper down the sedatives. We will continue with HAART, micafungin until fungal culture is negative and continue with Bactrim DS daily for PCP pneumonia prophylaxis. Exam Vital Signs Temp Pulse Resp BP Pulse Ox O2 Del Method O2 Flow Rate 97.6 F 122 H 35 H 106/67 93 L Mechanical Ventilation 40 06/26/24 08:00 06/26/24 11:00 06/26/24 08:00 06/26/24 11:00 06/26/24 11:00 06/26/24 08:00 06/09/24 12:16 FiO2 45 06/26/24 10:17 Narrative Exam GEN: Critically ill, not acutely distressed, sedated and mechanically ventillated Neuro: Deferred due to sedation. HEENT: NCAT, tracheostomy tube on appropriate position, mild abrasion over lower lips improving CVS: RRR, S1S2 present, no M/R/G. No JVD Respi: Mechanically ventilated, b/l breath sounds heard with diffuse rhonchi, no wheezing/crackles. ABD: Soft, no grimace to palpation, bowel sounds present in all 4 quadrants, PEG tube in appropriate place Skin: warm, dry and intact. Extremities: Pulses 2+ in all extremities, RUE edema, ruptured vesicles 1-2 cm on the rt forearm surface that has been healing. Objective Labs 06/26/24 04:55 06/26/24 04:55 Labs: Laboratory Results - last 24 hr 06/25/24 06/25/24 06/25/24 13:55 15:53 22:40 WBC RBC Hgb Hct MCV MCH MCHC RDW Std Deviation Plt Count Neut % (Auto) Lymph % (Auto) Robeson % (Auto) Eos % (Auto) Baso % (Auto) Neut # (Auto) Lymph # (Auto) Robeson # (Auto) Eos # (Auto) Baso # (Auto) Immature Gran # (Auto) Absolute Nucleated RBC Immature Gran % Nucleated RBC % APTT 42.5 H 64.6 H D Puncture Site Left Radial ABG pH 7.39 ABG pCO2 53 H ABG pO2 55 L* ABG HCO3 32 H ABG O2 Saturation 86 L ABG Base Excess 6 H FiO2 45 Sodium Potassium Chloride Carbon Dioxide Anion Gap BUN Creatinine Estim Creat Clear Calc eGFR BUN/Creatinine Ratio Glucose Calculated Osmolality Calcium Corrected Calcium Phosphorus Magnesium Total Bilirubin AST ALT Alkaline Phosphatase Total Protein Albumin Globulin Albumin/Globulin Ratio 06/26/24 06/26/24 06/26/24 04:13 04:55 11:40 WBC 6.2 RBC 3.64 L Hgb 8.9 L Hct 28.8 L MCV 79 L MCH 24.5 L MCHC 30.9 L RDW Std Deviation 73.6 H Plt Count 272 D Neut % (Auto) 73 Lymph % (Auto) 7 L Robeson % (Auto) 6 Eos % (Auto) 13 H Baso % (Auto) 0 Neut # (Auto) 4.5 Lymph # (Auto) 0.4 L Robeson # (Auto) 0.3 Eos # (Auto) 0.8 H Baso # (Auto) 0.0 Immature Gran # (Auto) 0.07 H Absolute Nucleated RBC 0.00 Immature Gran % 1 H Nucleated RBC % 0 APTT 46.3 H D Puncture Site Right Radial Left Radial ABG pH 7.41 7.46 H ABG pCO2 48 43 ABG pO2 58 L* 58 L* ABG HCO3 30 H 31 H ABG O2 Saturation 89 L 92 ABG Base Excess 5 H 6 H FiO2 45 50 Sodium 130 L Potassium 3.5 Chloride 95 L Carbon Dioxide 29.7 Anion Gap 5 L BUN 18 Creatinine 0.7 Estim Creat Clear Calc 129.1 eGFR > 60 BUN/Creatinine Ratio 26 H Glucose 125 H D Calculated Osmolality 263 L Calcium 8.0 L Corrected Calcium 8.7 Phosphorus 1.7 L Magnesium 1.7 Total Bilirubin 0.5 AST 95 H ALT 102 H Alkaline Phosphatase 168 H Total Protein 6.0 Albumin 3.1 L Globulin 2.9 Albumin/Globulin Ratio 1.1 L ABG Interpretation ABG results: 05/27/24 05/29/24 05/29/24 23:37 10:44 22:08 ABG pH 7.51 H 7.50 H 7.48 H ABG pCO2 28 L 32 32 ABG pO2 75 L 79 L 145 H D ABG HCO3 23 25 24 ABG O2 Saturation 96 95 98 ABG Base Excess 0 2 1 05/30/24 05/31/24 06/04/24 08:45 04:54 02:10 ABG pH 7.47 H 7.45 7.45 ABG pCO2 35 38 36 ABG pO2 86 D 82 L 139 H ABG HCO3 26 26 25 ABG O2 Saturation 97 96 98 ABG Base Excess 2 2 1 06/04/24 06/05/24 06/05/24 18:16 11:36 12:59 ABG pH 7.44 7.11 L* D 7.20 L ABG pCO2 36 94 H* D 68 H D ABG pO2 80 L D 150 H D 121 H D ABG HCO3 24 30 H 26 ABG O2 Saturation 94 97 97 ABG Base Excess 0 -2 -3 06/05/24 06/06/24 06/06/24 19:25 04:13 15:27 ABG pH 7.22 L 7.27 L 7.30 L ABG pCO2 64 H 57 H 60 H ABG pO2 122 H 153 H D 74 L D ABG HCO3 26 26 29 H ABG O2 Saturation 97 99 H 92 ABG Base Excess -3 -2 2 06/07/24 06/07/24 06/08/24 03:55 09:59 04:20 ABG pH 7.41 D 7.43 7.45 ABG pCO2 56 H 55 H 50 H ABG pO2 293 H D 78 L D 75 L ABG HCO3 36 H 37 H 35 H ABG O2 Saturation 99 H 95 94 ABG Base Excess 10 H 11 H 10 H 06/08/24 06/08/24 06/08/24 11:05 11:50 13:18 ABG pH 7.17 L* D 7.10 L* 7.15 L* ABG pCO2 95 H* D 115 H* D 88 H* D ABG pO2 89 75 L 72 L ABG HCO3 34 H 36 H 31 H ABG O2 Saturation 92 84 L 85 L ABG Base Excess 3 4 H 0 06/08/24 06/09/24 06/09/24 17:02 01:33 03:15 ABG pH 7.18 L* 7.22 L 7.27 L ABG pCO2 50 H D 91 H* D 82 H* ABG pO2 82 L 105 D 86 ABG HCO3 19 L 37 H 38 H ABG O2 Saturation 93 97 95 ABG Base Excess -9 L 7 H 9 H 06/09/24 06/09/24 06/10/24 05:08 12:52 04:40 ABG pH 7.31 L 7.33 L 7.30 L ABG pCO2 75 H* 57 H D 78 H* D ABG pO2 97 158 H D 65 L D ABG HCO3 38 H 30 H 38 H ABG O2 Saturation 97 99 H 90 L ABG Base Excess 10 H 3 9 H 06/10/24 06/11/24 06/12/24 09:40 04:19 04:15 ABG pH 7.27 L 7.35 7.48 H D ABG pCO2 88 H* D 86 H* 63 H D ABG pO2 65 L 70 L 76 L ABG HCO3 40 H 48 H 47 H ABG O2 Saturation 89 L 93 95 ABG Base Excess 10 H 19 H 21 H 06/13/24 06/14/24 06/15/24 07:22 04:32 03:45 ABG pH 7.46 H 7.48 H 7.46 H ABG pCO2 56 H 40 D 37 ABG pO2 80 L 64 L 71 L ABG HCO3 39 H 30 H 27 H ABG O2 Saturation 95 92 94 ABG Base Excess 13 H 6 H 3 06/15/24 06/15/24 06/15/24 10:17 12:20 14:20 ABG pH 7.01 L* D 7.00 L* 7.03 L* ABG pCO2 122 H* D 130 H* 125 H* ABG pO2 91 D 88 82 L ABG HCO3 31 H 32 H 33 H ABG O2 Saturation 88 L 88 L 87 L ABG Base Excess -3 -2 -1 06/15/24 06/15/24 06/16/24 15:55 20:39 00:35 ABG pH 7.03 L* 7.08 L* 7.10 L* ABG pCO2 121 H* 116 H* 118 H* ABG pO2 99 117 H 102 ABG HCO3 32 H 34 H 37 H ABG O2 Saturation 93 97 96 ABG Base Excess -1 2 4 H 06/16/24 06/16/24 06/17/24 04:45 08:55 05:06 ABG pH 7.17 L* 7.28 L D 7.33 L ABG pCO2 112 H* 88 H* D 96 H* ABG pO2 155 H D 98 D 126 H D ABG HCO3 41 H 41 H 50 H ABG O2 Saturation 99 H 98 99 H ABG Base Excess 9 H 12 H 21 H 06/17/24 06/17/24 06/18/24 10:58 13:55 04:16 ABG pH 7.29 L 7.29 L 7.33 L ABG pCO2 106 H* D 106 H* 86 H* D ABG pO2 58 L* D 61 L 77 L ABG HCO3 51 H 51 H 45 H ABG O2 Saturation 87 L 88 L 95 ABG Base Excess 21 H 21 H 17 H 06/19/24 06/20/24 06/21/24 04:18 04:49 04:06 ABG pH 7.42 7.36 7.44 ABG pCO2 63 H D 74 H* D 61 H D ABG pO2 66 L 55 L* 202 H D ABG HCO3 41 H 42 H 42 H ABG O2 Saturation 93 87 L 100 H ABG Base Excess 15 H 14 H 16 H 06/22/24 06/23/24 06/24/24 04:18 04:29 04:25 ABG pH 7.45 7.46 H 7.29 L D ABG pCO2 57 H 53 H 80 H* D ABG pO2 60 L D 99 D 88 ABG HCO3 40 H 38 H 38 H ABG O2 Saturation 91 99 H 96 ABG Base Excess 14 H 13 H 9 H 06/24/24 06/25/24 06/25/24 08:50 05:13 11:02 ABG pH 7.40 D 7.46 H Cancelled ABG pCO2 61 H D 53 H Cancelled ABG pO2 110 H D 66 L D Cancelled ABG HCO3 38 H 38 H Cancelled ABG O2 Saturation 99 H 94 Cancelled ABG Base Excess 12 H 13 H Cancelled 06/25/24 06/26/24 06/26/24 15:53 04:13 11:40 ABG pH 7.39 7.41 7.46 H ABG pCO2 53 H 48 43 ABG pO2 55 L* 58 L* 58 L* ABG HCO3 32 H 30 H 31 H ABG O2 Saturation 86 L 89 L 92 ABG Base Excess 6 H 5 H 6 H Quality Measures Quality Measures sepsis Current suspected stage: ruled out Possible source: pulmonary, GI tract/intra-abdominal, genitourinary and skin/soft tissue Blood cultures ordered: yes Antibiotic ordered: Yes Assessment & Plan Assessment Current Active Medications: Generic Name Dose Route Start Last Admin Trade Name Freq PRN Reason Stop Dose Admin Albuterol/Ipratropium 3 ml 06/05/24 11:40 06/25/24 08:58 Albuterol/Ipratropium (Duoneb) Rt Munira 3 Ml Nebu INH 07/05/24 14:59 3 ml Q4HRRT PRN Administration Wheezing Artificial Tears 1 drop 06/18/24 12:00 06/26/24 12:24 Artificial Tears 225 Drop/15 Ml Btl BOTH EYES 07/18/24 11:59 1 drop QID JUAN JOSE Administration Clonazepam 2 mg 06/22/24 14:00 06/26/24 05:38 Clonazepam 0.5 Mg Tablet GT 06/27/24 13:59 2 mg TID JUAN JOSE Administration Dextrose 25 ml 06/06/24 08:20 Dextrose 50%-Water Inj 50 Ml Syringe IV 07/06/24 08:19 Q15MIN PRN BG 50-70 responsive npo pt Dextrose 50 ml 06/06/24 08:20 Dextrose 50%-Water Inj 50 Ml Syringe IV 07/06/24 08:19 Q15MIN PRN BG <50 OR BG <70 & pt unresponsive Docusate Sodium 100 mg 06/25/24 09:13 Docusate Sod Liqd 100 Mg/10 Ml Udc PO 07/22/24 08:59 BID PRN Constipation Protocol Emtricitabine/Tenofovir 1 tab 06/16/24 12:30 06/26/24 09:45 Emtricitabine 200 Mg/Tenofovir 300 Mg Tab (Non-Form) PO 07/16/24 12:29 1 tab QDAY JUAN JOSE Administration Ferrous Sulfate 325 mg 06/23/24 10:00 06/26/24 09:42 Ferrous Sulf 325 Mg Tablet PO 07/23/24 09:59 325 mg QDAY JUAN JOSE Administration Glucagon 1 mg 06/06/24 08:20 Glucagon Inj 1 Mg Vial IM Q15MIN PRN BG <70, and no IV access Fentanyl Citrate 2,500 mcg in 250 mls @ 2.5 mls/hr 06/25/24 15:00 06/26/24 07:53 Sublimaze Inj 2,500 Mcg/250 Ml Bag IV 06/30/24 14:59 0 mcg/hr .Q24H PRN 0 mls/hr PER PROTOCOL Titration Protocol 25 MCG/HR Heparin Sodium/Dextrose 25,000 unit in 250 mls @ 13.122 mls/hr 06/25/24 16:15 06/26/24 06:33 Heparin In D5w Ivpb IV 06/29/24 14:44 22 units/kg/hr .Q19H4M JUAN JOSE 16.038 mls/hr Titration Protocol 18 UNITS/KG/HR Norepinephrine Bitartrate 16 mg in 250 mls @ 3.417 mls/hr 06/25/24 16:22 06/25/24 23:00 Levophed In Ns 16mg/250ml IV 07/25/24 16:21 0 mcg/kg/min .Q24H PRN 0 mls/hr PER protocol Titration Protocol 0.05 MCG/KG/MIN Labetalol HCl 5 mg 06/23/24 18:13 06/23/24 18:20 Labetalol Inj 5 Mg/Ml Vial 20 Ml IVP 07/23/24 18:14 5 mg Q6H PRN Administration SBP > 180 or DBP > 110 Labetalol HCl 50 mg 06/24/24 21:00 06/26/24 09:40 Labetalol 100 Mg Tablet PO 07/24/24 20:59 50 mg BID JUAN JOSE Administration Ondansetron HCl 4 mg 05/29/24 21:51 06/04/24 17:44 Ondansetron Inj 2 Mg/Ml Inj 2 Ml IV 06/28/24 21:50 4 mg Q6HR PRN Administration NAUSEA OR VOMITING Protocol Oxycodone HCl 10 mg 06/21/24 18:00 06/26/24 05:38 Oxycodone Hcl 5 Mg Ir Tab GT 06/26/24 17:59 10 mg TID JUAN JOSE Administration Pantoprazole Sodium 40 mg 06/06/24 09:00 06/26/24 09:39 Pantoprazole Inj 40 Mg Vial IVP 07/06/24 08:59 40 mg QDAY JUAN JOSE Administration Patiromer 8.4 gm 06/09/24 10:45 06/26/24 09:45 Patiromer Calcium 8.4 Gm Packet (Non-Form) NG 07/09/24 10:44 8.4 gm QDAY JUAN JOSE Administration Phenobarbital 90 mg 06/22/24 14:00 06/26/24 06:14 Phenobarbital Elix 20 Mg/5 Ml Udc GT 07/06/24 13:59 90 mg TID JUAN JOSE Administration Prednisone 10 mg 06/26/24 09:00 06/26/24 09:40 Prednisone 5 Mg Tablet PO 07/26/24 08:59 10 mg QDAY JUAN JOSE Administration Quetiapine Fumarate 100 mg 06/25/24 21:00 06/26/24 09:40 Quetiapine Fumarate 25 Mg Tablet PO 07/25/24 20:59 100 mg BID JUAN JOSE Administration Raltegravir 400 mg 06/23/24 21:00 06/26/24 09:42 Raltegravir 400 Mg Tablet NG 06/30/24 20:59 400 mg BID JUAN JOSE Administration Trimethoprim/Sulfamethoxazole 20 ml 06/23/24 09:00 06/26/24 09:45 Trimethoprim/Sulfa Susp 1 Ml PO 06/22/25 12:00 20 ml QDAY JUAN JOSE Administration Plan 39-year-old male patient with no PMHx who initially presented to [facility] on 05/27/2024 with a chief complaint of shortness of breath and cough, with associated chills, body aches, generalized weakness, fever, and night sweats beginning weeks prior but progressively worsening over a few days is currently being treated for acute hypoxic respiratory failure secondary to PCP pneumonia that was complicated by ventilator associated pneumonia. Patient is currently on tracheostomy tube and mechanically ventilated. 06/26/2024: The patient was examined and evaluated at the bedside this morning. Patient is off of any sedatives or pressor support. Patient is mechanically ventilated through tracheostomy tube. The patient had 1 episode of fever overnight, and blood culture is pending. His heart rate has been in the range of 120s to 130s with RR between 28-36, saturating 92% on FiO2 50%. The patient received 2 mg IV hydromorphone x 1. His hemoglobin has been stable at 8.9, we will continue with oral ferrous sulfate 325 Mg daily, ABG revealed pH 7.46, pCO2 43, pO2 58 and bicarb 31. He received 1 dose of Diamox 500 Mg IV, sodium 130, potassium 3.5 and Veltassa was discontinued, phosphorus was 1.4 and we will repeat it further. The patient will be downgraded to telemetry unit we will continue with enteral sedatives phenobarbital 90 Mg 3 times daily, clonazepam 2 mg 3 times daily, oxycodone 10 mg 3 times daily and Seroquel 100 Mg twice daily. His sedatives will be continued for 2 weeks at this point and after that the plan is to taper down the sedatives. We will continue with HAART, micafungin until fungal culture is negative and continue with Bactrim DS daily for PCP pneumonia prophylaxis. NEURO #Acute encephalopathy, secondary to prolonged sedation 06/05/2024 Patient was intubated, sedated, and paralyzed for ARDS. Currently switched IV sedatives to enteral sedatives with phenobarbital 90 Mg 3 times daily, clonazepam 2 Mg 3 times daily and oxycodone 10 Mg 3 times daily. -Continue with oral sedatives for 2 more weeks, and then taper down if tolerated -There was a concern of hypoxemia and due to long to sedation there could be possible neuronal damage. We have ordered brain MRI with and without contrast and EEG. #Fever, resolved CARDIO #Right upper extremity DVT. -Doppler US right upper extremity 06/17/24: revealed RUE DVT -On Heparin Drip, can be switched to oral anticoagulants #Sinus tachycardia Tachycardia most likely secondary to respiratory distress and agitation 2/2 AHRF in the setting of tapering down sedatives -Continue to treat the underlying cause #Septic shock, resolved Secondary to severe extensive bilateral pneumonia. -Patient is out of pressor support and completed the dose of antibiotics PULM #Chronic hypoxic respiratory failure Secondary to #Bilateral pneumocystis jirovecii pneumonia, resolved #Healthcare associated pneumonia, resolved, resolved #Ventilator associated pneumonia, resolved #Chronic respiratory distress syndrome as a consequence of ARDS 2/2 PCP pneumonia #S/P Tracheostomy Patient presented with dyspnea and cough, requiring 4L NC on first ED evaluation, and history of chills, body aches, generalized weakness, fever, and night sweats progressively worsening over the prior weeks. Approx 20-pack year smoking history, occasional marijuana. 06/17/2024 oxygenation and hypercapnia improved, was put in supine position, continued to be paralyzed. Plan: -Ventilation on volume control, saturation to be maintained >90% -Continue Bactrim 06/01/24 - completed on 06/22/24, but extended as per ID for PCP pneumonia prophylaxis in the setting of CD4 count of 116 -On linezolid 600 mg q12h 06/15/24-06/22/24 -Continue micafungin for further management of PCP pneumonia and as fungal culture is pending from respiratory circulation 100 mg qday 06/09/24- -Fungal cultures from BAL pending -DuoNebs q4h as needed -New blood cultures sent 06/15?negative for growth -New ET culture sent 06/15?negative for growth -Prednisone tapered down to 10 Mg daily until 06/28/2024, then tapering down to 5 mg daily for 4 more days. GI GI prophylaxis: Pantoprazole 40 mg IV qday #Elevated LFTs, improving Likely due to propofol and bactrim. Mildly elevated, liver US 05/30/2024 showed normal gallbladder and hepatomegaly without lesions or evidence of obstructions. Hep panel negative. LFTs downtrended compared to 06/06/24. 06/15/2024 Floyd in LFTs with AST 303, ALT 420, Tbili 1.3, therefore right upper quadrant US ordered, negative for cholecystitis/cholelithiasis, hepatitis panel negative. No obvious changes on physical exam. 06/20/24: LFT AST/ALT/ALP : 99/123/118 Plan: -Continue monitoring #Hypertriglyceridemia, trending down More likely secondary to propofol use -We will repeat lipid panel on 06/30/2024 NEPHRO #Hypophosphatemia: Phosphorus trended down to 1.4 even after repletion #WILL, resolved #Hyperkalemia---Resolved #Hyperphosphatemia, resolved Plan: -Discontinued Veltassa as potassium has been in the lower end of normal value -Nephrology Dr. Song is following for as-needed dialysis due to hyperkalemia -Maintain euvolemia -Monitor CMP, especially phosphorus -Replete electrolytes as needed. #Mild hyponatremia Secondary to SIADH due to acute hypoxic respiratory failure leading to pulmonary distress -Continue to monitor #Primary Respiratory acidosis over compensated by metabolic alkalosis, stable Secondary to increased work of breathing and increased RR 2/2 chronic hypoxic respiratory failure and chronic respiratory distress syndrome in the setting of tapering down of IV sedatives -ABGs revealed pH of 7.46, pCO2 53, pO2 66 and bicarb 38. -We will treat the underlying cause HEME #Leukocytosis, resolved Fluctuating WBC. In the setting of likely infection, inflammation, and corticosteroids. Plan: -Treatment of pneumonia as above #Microcytic anemia 2/2 STEPHY and Inflammatory anemia Stable, has not required any transfusions this admission thus far. Clinically no evidence of bleeding. Iron panel shows iron 17, TIBC 262, iron saturation 6, unsaturated iron binding 245. Peripheral blood film confirms microcytic hypochromic anemia with target cells. Also daily lab draws contributing. Plan: -Started on oral ferrous sulfate 325 Mg daily -Monitor H&H. Transfusing for Hgb <7 #Thrombocytosis, resolved Likely reactive. -Continue to monitor ENDO #Hypoglycemia, resolved Blood glucose this morning was 69, likely secondary to increased metabolic acid complicated by stopping enteral feeding -Bolus D50W given -Repeat blood sugar was stable -We will resume enteral feeding after PEG tube placement ID #Bilateral pneumocystis pneumonia #Healthcare associated pneumonia #Ventilator associated pneumonia -Resolved #PCP pneumonia prophylaxis Negative studies: Cocci IgM and IgG, Hepatitis panel, Syphilis, Legionella, H.flu, N.meningitidis, Strep B, Strep pneumoniae, COVID, RSV, Flu A & B. TB quantiferon GOLD-indeterminate, however 06/05 AFB negative, CMV IgM, cryptococcal antigen negative. G6PD levels came back normal for consideration of dapsone alternative to Bactrim if needed. Patient completed 5 day course of azithromycin, 16 days of Zosyn. See Pulm for timeline of antimicrobial coverage. Plan: -Antibiotcs Bactrim for prevention of PCP pneumonia in the setting of CD4 count of 116 and antifungal micafungin as fungal culture from ET tube secretion is pending. -Fungal cultures from BAL pending -New blood cultures sent 06/15?negative for growth -New ET culture sent 06/15?negative for growth #AIDS/HIV Patient has Stage 4 HIV, AIDS-defining illness with opportunistic infection. 06/07/2024 Bronchoalveolar lavage cytology shows Pneumocystis jirovecii. Also other fungi, possibly Kassandra. Kassandra is most likely a contaminant. Blood [id number] also positive. 06/08/2024 HIV quant 5.66 million copies. HIV 1 positive confirmed. 06/09/2024 Patient's decision maker, Francesca, was informed of diagnosis due to critical state of patient. Absolute CD4 count 87 and 22% on 06/02. History/risk factors: History of injection anabolic androgenic steroid and testosterone use, possible unclean needles. History of incarceration (unknown time). Tattoos received as a teenager. Has 1 female sexual partner last 5 years, denies others. -Continue HAART: emtricitabine / tenofovir (Truvada) and raltegravir initiated 06/09/24 -Patient is not aware of his diagnosis as he has been intubated and sedated before results returned. Will require complete education and counseling on the disease if his mental status and clinical condition improves. 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 The patient is being downgraded to telemetry unit for further management of chronic hypoxic respiratory failure s/p tracheostomy. DVT prophylaxis: On heparin drip for treatment of right upper extremity DVT GI prophylaxis: Pantoprazole 40 mg IV qday Diet: Tube feeds Nepro Tijerina: Present (06/05- ) Lines: Peripheral IV Antibiotics: Bactrim, micafungin CODE STATUS: FULL CODE Patient plan of care was discussed with the attending physician, Dr. Walsh. Jeff Pacheco MD, PGY2
--- NOTE | 2024-06-26 13:11 | PD.INTPROG ---
Documentation for date of: 06/26/24 Subjective Subjective Interval history: This is a 39-year-old male who presented to the ER on 27 May. Initially he presented for shortness of breath cough and general malaise. Apparently he had been feeling unwell for the last 2 to 3 weeks. He did have some nonproductive cough. Chest x-ray showed bilateral diffuse infiltrates and the medicine team was contacted. He was admitted to the floor and placed on high flow nasal cannula initially at 100% FiO2 and started on antibiotics. He was started on fluconazole as well as Levaquin given that there was a high suspicion for underlying cocci pneumonia. He has had 2 rapid responses over the last 48 hours due to hypoxia and desatting. The patient is able to tolerate minimal movements prior to desatting. Today the ICU is consulted for further evaluation. The patient is currently on 80% FiO2 he is awake alert and oriented. He states that he has shortness of breath however minimal cough. He does complain of some upper abdominal/lower rib pain which he attributes to his recent cough. He denies any chest pain. Does note that he has had some night sweats and fever over the last several days. There has been no significant improvement since arrival 3 days ago. His respiratory status remains unchanged if not slightly worse. He is currently on isolation with airborne precautions behind a closed door. At this point in time due to an abundance of caution as well as closer observation and monitoring we will transfer to the ICU for ongoing management of his acute hypoxic respiratory failure. I did discuss with the patient the probable need for intubation in the near future. He is okay with intubation 05/31- no acute overnight events, decrease in FiO2 needs, feels better with less WOB today, afebrile, 06/05-patient had been returned to the floor where initially he did well. Apparently over the last 24 to 36 hours he has had an increase in FiO2 requirements with a rapid response called last night. Rapid response called again this morning. Patient stated that he felt tired and unable to keep up. He is on 100% FiO2. He desats with minimal exertion. The decision was made to bring him to the ICU for intubation. This was discussed with the patient while he was awake and his family as well. 06/06- overnight pt remained on NMB, versed/prop/fent. brisk UOP >100cc/hr , afebrile, labs this AM showed a K of 7.8 for which he received insulin/Ca/D50/kayexolate 06/07-patient underwent dialysis yesterday for refractory hyperkalemia, he remains on deep sedation however off of propofol and off of paralytic. Continues with a good urinary output. Afebrile, have been able to come down on his FiO2 however persistent bilateral infiltrates severe on exam without conclusive underlying etiology as of this point in time. 06/08-no acute overnight events, this a.m. attempted to decrease sedation however patient became agitated and desatted. Required increased to 100% FiO2. When patient was suctioned blood was returned from the ET tube. Patient required paralytic and bagging in order to improve his sats. 06/23-has had a prolonged hospital course thus far. Was unable to be weaned from the vent. He was scheduled for tracheostomy today which took place with Dr Ryan. His Versed drip was stopped today. He remains on propofol and fentanyl. He is on multiple p.o. medications for severe agitation. Net negative over the last 24 hours however net positive since hospital stay. Afebrile 06/24- s/p trach yesterday, scheduled for PEG today, afebrile, vent dysynchrony overnight reason for which his fent was increased, off of prop. good UOP, afebrile 06/25- no acute overnight evetns, s/p PEG yesterday, afebrile, good UOP, intermittent episodes of tachypnea, attempting to wean fent off 06/26-off of fentanyl, yesterday spiked a fever of 101. Blood cultures were sent. No other acute overnight events Critical Care Note Critical care time (min.): 0 Exam Vital Signs Temp Pulse Resp BP Pulse Ox O2 Del Method O2 Flow Rate 97.6 F 122 H 35 H 106/67 93 L Mechanical Ventilation 40 06/26/24 08:00 06/26/24 11:00 06/26/24 08:00 06/26/24 11:00 06/26/24 11:00 06/26/24 08:00 06/09/24 12:16 FiO2 45 06/26/24 10:17 Narrative Exam General-chronically ill-appearing, muscle wasting noted, normal body habitus, does not interact with environment HEENT-normocephalic, atraumatic, temporal muscle wasting, pupils reactive, sclera icteric, trach in place, oral mucosa is dry Chest-few crackles at bases, coarse breath sounds, tachypneic but without use of accessory muscles, heart rate regular rhythmic tachycardic Abdomen-soft, nontender, bowel sounds present, no rebound or guarding, PEG in place Extremities-edema of the right upper extremity with multiple blisters in various stages of healing noted, pulses palpable, no clubbing, no mottling, no cyanosis Physical Exam Completion Physical Exam Complete?: Yes Objective - [employer] Labs 06/26/24 04:55 06/26/24 04:55 Labs: Laboratory Results - last 24 hr 06/25/24 06/25/24 06/25/24 13:55 15:53 22:40 WBC RBC Hgb Hct MCV MCH MCHC RDW Std Deviation Plt Count Neut % (Auto) Lymph % (Auto) [place] % (Auto) Eos % (Auto) Baso % (Auto) Neut # (Auto) Lymph # (Auto) [place] # (Auto) Eos # (Auto) Baso # (Auto) Immature Gran # (Auto) Absolute Nucleated RBC Immature Gran % Nucleated RBC % APTT 42.5 H 64.6 H D Puncture Site Left Radial ABG pH 7.39 ABG pCO2 53 H ABG pO2 55 L* ABG HCO3 32 H ABG O2 Saturation 86 L ABG Base Excess 6 H FiO2 45 Sodium Potassium Chloride Carbon Dioxide Anion Gap BUN Creatinine Estim Creat Clear Calc eGFR BUN/Creatinine Ratio Glucose Calculated Osmolality Calcium Corrected Calcium Phosphorus Magnesium Total Bilirubin AST ALT Alkaline Phosphatase Total Protein Albumin Globulin Albumin/Globulin Ratio 06/26/24 06/26/24 06/26/24 04:13 04:55 11:40 WBC 6.2 RBC 3.64 L Hgb 8.9 L Hct 28.8 L MCV 79 L MCH 24.5 L MCHC 30.9 L RDW Std Deviation 73.6 H Plt Count 272 D Neut % (Auto) 73 Lymph % (Auto) 7 L [place] % (Auto) 6 Eos % (Auto) 13 H Baso % (Auto) 0 Neut # (Auto) 4.5 Lymph # (Auto) 0.4 L [place] # (Auto) 0.3 Eos # (Auto) 0.8 H Baso # (Auto) 0.0 Immature Gran # (Auto) 0.07 H Absolute Nucleated RBC 0.00 Immature Gran % 1 H Nucleated RBC % 0 APTT 46.3 H D Puncture Site Right Radial Left Radial ABG pH 7.41 7.46 H ABG pCO2 48 43 ABG pO2 58 L* 58 L* ABG HCO3 30 H 31 H ABG O2 Saturation 89 L 92 ABG Base Excess 5 H 6 H FiO2 45 50 Sodium 130 L Potassium 3.5 Chloride 95 L Carbon Dioxide 29.7 Anion Gap 5 L BUN 18 Creatinine 0.7 Estim Creat Clear Calc 129.1 eGFR > 60 BUN/Creatinine Ratio 26 H Glucose 125 H D Calculated Osmolality 263 L Calcium 8.0 L Corrected Calcium 8.7 Phosphorus 1.7 L Magnesium 1.7 Total Bilirubin 0.5 AST 95 H ALT 102 H Alkaline Phosphatase 168 H Total Protein 6.0 Albumin 3.1 L Globulin 2.9 Albumin/Globulin Ratio 1.1 L Assessment & Plan Problem List (1) Acute respiratory failure with hypoxia: Status: Acute Additional Assessment Additional Assessment: In brief this is a 39y M admitted for SOB and acute hypoxic resp failure with b/l PNA. a/p [employer] Agitation/ acute encephalopathy-patient required multiple IV drips for sedation and vent compliance. He was started on p.o. Seroquel and phenobarbital. He is also on Klonopin and oxycodone. 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 monitor - mild WILL- resolved HypoPhos- replete via PEG GI Transaminitis- Hep viral panel is neg, - US shows some mild hepatomegaly - probable cholestasis - trending down - doing well GI proph- PPI Endo Hypoglycemia- has been NPO for procedure - give 1 amp D50 today HyperTrig- may be 2/2 prop -> stopped yesterday - recheck in a few days Heme Microcytic Anemia-iron deficiency anemia -Slow drift downwards with hemoglobin of 7 today -Transfuse for hemoglobin less than 7 -Patient started on p.o. iron - improved #s today - doing well DVT right upper extremity -heparin drip which is on hold for PEG placement - restart heparin ID PNA-secondary to PCP VAP - grew out VRE and staph hemolyticus on 06/09 - seen by ID and recs noted HIV/ AIDS- on HAART tx -> fu with ID - JAYME proph if CD4 <50 Fever- spiked temp yesterday afternoon and repeat bcx taken - nothing pos as of yet - hold off on abx until source found case d/w ICU team poss downgrade this afternoon labs, imaging, records reviewed ~36ccmin required for eval, exam, review, intervention , discussion and formulation of POC for this critically ill pt with resp failure at high risk for further and ongoing decompensation Provider Notation Provider Notation: Although this document has been carefully reviewed, there may still be some phonetic and other typographical errors. These errors are purely grammatical due to imperfections in the software program and should not be construed in any way to compromise the substance of the patient's medical care during this visit. Thank you for the opportunity and privilege in assisting you with this patient's care and management.
[2024-06-26 13:20] LABS: Phosphorous 1.4 mg/dL (2.4-5.1)
--- NOTE | 2024-06-26 13:37 | PD.SURPROG ---
Documentation for date of: 06/26/24 Subjective Subjective Narrative: Patient is seen and examined. Intubated and sedated. Tolerating tube feeding Exam Vital Signs Temp Pulse Resp BP Pulse Ox O2 Del Method O2 Flow Rate 97.6 F 122 H 35 H 106/67 93 L Mechanical Ventilation 40 06/26/24 08:00 06/26/24 11:00 06/26/24 08:00 06/26/24 11:00 06/26/24 11:00 06/26/24 08:00 06/09/24 12:16 FiO2 45 06/26/24 10:17 Routine Neck Exam Comments: Tracheostomy in place and intact without bleeding Routine Abdominal Exam Comments: PEG tube in place and intact without bleeding Assessment & Plan Assessment Additional comments: Status post tracheostomy and PEG tube placement Plan Tolerating tube feeding. Please call for any questions Procedures Procedures Tracheostomy with size 8 cuffed
[2024-06-26] MEDS: ACETAzolaMIDE SOD 500 MG in SODIUM CHLORIDE 0.9% (P) 50 ML 100 MG IV (13:43)
[2024-06-26 13:47] LABS: Partial Thromboplastin Time 61.2 Seconds (22.0-36.0)
--- NOTE | 2024-06-26 14:46 | PD.RESEVENT ---
Documentation for date of: 06/26/24 Event Note Event Note: Received call by ICU resident Dr. Pacheco for an ICU downgrade. Mr. Tirso Owen is a 39 year old male with no PMH who presents to the ER on 05/27/2024 for a 3 week history of shortness of breath and fatigue and admitted to the hospital for acute hypoxic respiratory failure secondary to pneumonia and started on IV antibiotics. He was found to be HIV positive with a CD4 count of 116, and the ID specialist Dr. Hope was consulted. Due to worsening respiratory distress and hypoxia, he was intubated on 06/05 and treated for ARDS secondary from the PCP pneumonia. He had a prolonged hospital stay and was difficult to wean off sedation and the ventilator. He had a tracheostomy on 06/23 and a PEG tube placed 06/24. For his encephalopathy, he remains on enteral sedatives to be continued for another 2 weeks then tapered down. Other problems include RUE DVT which he is on heparin drip for. For his pneumonia and AIDS, he is on HAART and TMP-SMX and micafungin. He is to be downgraded to Tele for continued management of his acute hypoxc respiratory failure secondary to PCP pneumonia in the setting of AIDS. Team A will take over care of the patient starting Jun 27. I have reviewed and discussed the patient's care with my attending, Dr. Matthieu Vegas MD PGY-3
[2024-06-26] MEDS: ACETAMINOPHEN SOL 325 MG/10 ML UDC 650 MG GT ×2 (15:20→20:52)
--- NOTE | 2024-06-26 18:32 | PC.NURSE ---
Notified Dr. Pacheco and Caleb Nunez regarding low urine out put. no new orders received at this time
[2024-06-26 19:51] LABS: Partial Thromboplastin Time 56.8 Seconds (22.0-36.0)
[2024-06-26] MEDS: RINGERS LACTATED 1000 ML 1,000 ML 999 ML IV ×2 (21:26→22:51)
--- NOTE | 2024-06-26 21:26 | PC.NURSE ---
called Dr Hilliard @ 2115 and notified him of sbp in the 70s per pt is Tele and to call floor residents no orders received called Dr Rowland @ 2116 regarding sbp in the 70s stated they will come see the pt no orders received called Dr Dupere @ 2119 regarding sbp and orders given to start levophed called Dr Hilliard @ [address] Salgado order to start levophed. Per Dr Hilliard he is on in the elevator and to hold the levophed for him to come and assess pt @ 2125 Dr Hilliard, Dr Rowland and Marcos at bedside, labs and ivf bolus ordered
--- NOTE | 2024-06-26 21:36 | XR_ITS ---
Examination: AP chest single view Technique: AP portable semiupright chest single view Exam date and time: June 26, 2024 2157 hrs. Comparison June 26, 2024 0623 hrs. Indications: Sepsis today. Findings: Severe bilateral lung opacity Normal heart size Tracheostomy tube tip 4.8 cm above sunil Impression: Again noted severe bilateral pneumonia ARDS pattern
[2024-06-26 22:03] LABS: Lactate (Lactic Acid) 1.4 mMol/L (0.4-2.0)
[2024-06-26 22:29] LABS: Alanine Aminotransferase 116 U/L (10-49); Albumin, Serum 2.7 gm/dL (3.5-5.0); Alkaline Phosphatase 173 U/L (46-116); Anion Gap 5 (7-16); Aspartate Amino Transferase 107 U/L (0-34); BUN/Creatinine Ratio 30 Ratio (12-20); Bilirubin,Total 0.4 mg/dL (0.3-1.2); Blood Urea Nitrogen 21 mg/dL (9-23); Calcium 7.6 mg/dL (8.3-10.6); Calcium (Corrected) 8.6 mg/dL (8.5-10.1); Carbon Dioxide 29.4 mMol/L (20.0-31.0); Chloride 98 mMol/L (98-107); Creatinine (Component) 0.7 mg/dL (0.6-1.3); Estimated Creatinine Clearance 129.1 mL/min (>60); Globulin 2.8 gm/dL (2.3-3.5); Glucose 108 mg/dL (74-106); Osmolality,Calculated 268 (275-295); Potassium 3.7 mMol/L (3.4-5.1); Procalcitonin 1.25 ng/ml (0.0-0.49); Sodium 132 mMol/L (136-145); Total Protein 5.5 gm/dL (5.7-8.2); eGFR > 60 See Note
[2024-06-27] VITALS (118 sets, daily range): BP systolic 75–134; BP diastolic 40–74; PULSE 90–159; RESP 10–56; TEMP 36.6–38.3; O2SAT 87–100
--- NOTE | 2024-06-27 | XR_ITS ---
Examination: MRI of brain without intravenous contrast. MRI brain with intravenous contrast. Date and time of exam:June 27, 2024 1133 hours INDICATIONS: Onset altered mental status beginning last week fatigue fever weakness nausea weakness in the extremities Technique: Multiple axial and sagittal images of the brain to been obtained. Siemens high-resolution 1.52 Crystal short bore scanner utilized. Sagittal sections, T1 weighted images, TR 500, TE 14, are performed. Axial sections proton-density and T2-weighted images have been obtained. Inversion recovery axial images, TR 9260, TE 111, TR 2500. Diffusion weighted images, axial sections, TR 4800, TE 128, B value 1000. Axial sections, ADC map, TR 4800, TE 128. Axial and coronal images were also obtained post 13 cc gadolinium administered intravenously. Findings:: Enlargement of the sella turcica is not present. The optic chiasm and infundibular stalk are not remarkable. There is no localized enlargement of the medulla or jorge. Fourth ventricle and cerebellar tonsils appear normal in position. No subacute area of hemorrhage density is seen. Fourth ventricle is midline. Mass in the cerebellopontine angle region is not evident. 7th and 8th nerve complexes exhibit symmetry Globes are symmetrical Orbital musculature including medial lateral rectus muscles do not exhibit abnormality Increased white matter signal is not seen Effacement of the cortical sulcal markings is not identified. Mass effect upon the ventricular system is not identified. Diffusion-weighted images demonstrate no focus of restricted diffusion Contrast images demonstrate no abnormal enhancement Impression: Negative for acute hemorrhage, mass effect or midline shift No acute infarct No MR findings diagnostic for demyelinating disease Significant bilateral mastoiditis
[2024-06-27] MEDS: Heparin/D5w 25K 250 ML Ivpb 25,000 UNIT/250 ML BAG 16.038 UNIT IV ×2 (00:02→13:14)
[2024-06-27] MEDS: Norepinephrine/D5W 8mg/250ml 8 MG/250 ML BAG 6.722 MG IV (00:46)
[2024-06-27 02:47] LABS: Partial Thromboplastin Time 61.3 Seconds (22.0-36.0)
[2024-06-27] MEDS: ACETAMINOPHEN SOL 325 MG/10 ML UDC 650 MG GT (04:33)
[2024-06-27 04:37] LABS: Base Excess 5 (-3-3); HCO3 29 mEq/L (20-26); Inspired Oxygen, FIO2 40 %; O2 Saturation 87 % (91-98); PCO2 39 mmHg (32.0-48.0); pH, Arterial 7.48 (7.35-7.45)
[2024-06-27 04:50] LABS: Allen Test Performed/OK; Puncture Site Left Radial
[2024-06-27 04:51] LABS: PO2 49 mmHg (83-108)
[2024-06-27 05:35] LABS: Basophils % (Auto) 0 % (0-2.5); Eosinophils # (Auto) 0.8 Thou/mm3 (0.0-0.5); Eosinophils % (Auto) 13 % (0-10); Hematocrit 27.5 % (41.0-53.0); Immature Granulocytes % (Auto) 2 % (0-0); Lymphocytes # (Auto) 0.7 Thou/mm3 (1.0-4.8); Lymphocytes % (Auto) 11 % (10-50); Mean Corpuscular HGB Conc 30.9 g/dl (31.0-37.0); Mean Corpuscular Hemoglobin 24.1 pg (25.0-35.0); Mean Corpuscular Volume 78 fL (80-100); Monocytes # (Auto) 0.3 Thou/mm3 (0.0-0.8); Monocytes % (Auto) 4 % (0-12); Neutrophils # (Auto) 4.6 Thou/mm3 (1.8-7.7); Neutrophils % (Auto) 71 % (37-80); Nucleated Red Blood Cell % 0 /100 WBC (0); Platelet Count 282 Thou/mm3 (140-440); RDW Standard Deviation 72.2 fL (35.1-43.9); Red Blood Count 3.52 Miln/mm3 (4.50-5.90); White Blood Count 6.4 Thou/mm3 (3.8-10.6)
[2024-06-27 05:40] LABS: Hemoglobin 8.5 g/dL (13.5-16.0)
[2024-06-27 05:47] LABS: INR 1.3 (0.9-1.3); Partial Thromboplastin Time 44.1 Seconds (22.0-36.0)
[2024-06-27] MEDS: clonazePAM 0.5 MG TABLET 2 MG GT (06:01)
[2024-06-27] MEDS: PHENOBARBITAL ELIX 20 MG/5 ML 90 MG GT ×3 (06:01→21:17)
[2024-06-27] MEDS: Artificial Tears 225 DROP/15 ML BTL BOTH EYES ×4 (06:02→21:09)
--- NOTE | 2024-06-27 06:06 | PD.RESEVENT ---
Documentation for date of: 06/27/24 Event Note Event Note: Patient was given evening dose of labetalol 50 Mg p.o., after patient dropped blood pressure below MAP of 55. Patient was also tachypneic, tachycardic and had fever of 101.1. Patient also had decreased urine output in total of 375 cc within 6 hours. Sepsis alert was called. Patient met sepsis criteria with normal lactic acid, but increased Pro-Jayy at 1.25. Rest of the labs are not clinically significant compared to previous days. Chest x-ray was done to rule out possible pneumonia, which did not show any clinically significant changes compared to previous chest x-ray . Adequate fluid resuscitation was done following sepsis protocol 30 cc/kg LR bolus. But blood pressure remained below MAP of 65. Decision was made to start low-dose pressors to maintain adequate perfusion. After adequate fluid resuscitation and low dose pressors, patient had increased urine output to total of 1200 cc within next 7 hours. Patient will continue further management at ICU level. Blood cultures are sent, we will follow-up with the results. Patient will continue trimethoprim/sulfamethoxazole. Tez Garcia MD PGY3 reviewed and discussed the case with attending physician Dr. Dupree
[2024-06-27 06:08] LABS: Alanine Aminotransferase 115 U/L (10-49); Albumin/Globulin Ratio 1.2 (1.2-2.2); Alkaline Phosphatase 182 U/L (46-116); Anion Gap 7 (7-16); Aspartate Amino Transferase 110 U/L (0-34); BUN/Creatinine Ratio 30 Ratio (12-20); Bilirubin,Total 0.4 mg/dL (0.3-1.2); Blood Urea Nitrogen 18 mg/dL (9-23); Calcium 7.8 mg/dL (8.3-10.6); Calcium (Corrected) 8.6 mg/dL (8.5-10.1); Carbon Dioxide 28.4 mMol/L (20.0-31.0); Chloride 96 mMol/L (98-107); Creatinine (Component) 0.6 mg/dL (0.6-1.3); Estimated Creatinine Clearance 150.6 mL/min (>60); Globulin 2.6 gm/dL (2.3-3.5); Glucose 106 mg/dL (74-106); Magnesium 1.7 mg/dL (1.6-2.6); Osmolality,Calculated 264 (275-295); Potassium 3.1 mMol/L (3.4-5.1); Sodium 131 mMol/L (136-145); Total Protein 5.6 gm/dL (5.7-8.2); eGFR > 60 See Note
[2024-06-27 06:10] LABS: Phosphorous 0.9 mg/dL (2.4-5.1)
[2024-06-27] MEDS: FERROUS SULF 325 MG TABLET PO (08:23)
[2024-06-27] MEDS: NAPH,KPH MBDB 1 PACKET (1.5 GM) PO ×4 (08:23→21:08)
[2024-06-27] MEDS: QUEtiapine FUMARATE 25 MG TABLET 100 MG PO ×2 (08:23→21:08)
[2024-06-27] MEDS: predniSONE 5 MG TABLET 10 MG PO (08:23)
[2024-06-27] MEDS: POT PHOS 15 mMol in NS 250 ML 15 MMOL/250 ML BAG 62.5 MMOL IV (08:24)
[2024-06-27] MEDS: POTASSIUM CHLORIDE 10% 20 MEQ/15 ML UDC 40 MEQ GT (08:24)
[2024-06-27] MEDS: PANTOPRAZOLE INJ 40 MG VIAL IVP (08:24)
[2024-06-27] MEDS: EMTRICITABINE 200 MG/TENOFOVIR 300 MG TAB (NON-FORM) 1 TAB PO (08:32)
[2024-06-27] MEDS: TRIMETHOPRIM PO (08:32)
[2024-06-27] MEDS: SULFAMETHOXAZOLE PO (08:32)
[2024-06-27] MEDS: RALTEGRAVIR 400 MG TABLET NG ×2 (08:32→21:08)
[2024-06-27 08:35] LABS: Partial Thromboplastin Time 54.3 Seconds (22.0-36.0)
--- NOTE | 2024-06-27 09:20 | RESP.EEG ---
eeg completed and ready for review
[2024-06-27] MEDS: MEROPENEM INJ 1,000 MG in SODIUM CHLORIDE 0.9% (P) 50 ML 100 MG IV ×3 (10:35→21:08)
[2024-06-27] MEDS: LINEZOLID 600 MG IVPB 600 MG/300 ML BAG 300 MG IV ×2 (10:43→21:09)
--- NOTE | 2024-06-27 11:17 | PC.SS ---
Update: Plan is for the patient to obtain MRI today. Patient has been re-started on pressors.
--- NOTE | 2024-06-27 12:49 | PD.INTPROG ---
Documentation for date of: 06/27/24 Subjective Subjective Interval history: This is a 39-year-old male who presented to the ER on 27 May. Initially he presented for shortness of breath cough and general malaise. Apparently he had been feeling unwell for the last 2 to 3 weeks. He did have some nonproductive cough. Chest x-ray showed bilateral diffuse infiltrates and the medicine team was contacted. He was admitted to the floor and placed on high flow nasal cannula initially at 100% FiO2 and started on antibiotics. He was started on fluconazole as well as Levaquin given that there was a high suspicion for underlying cocci pneumonia. He has had 2 rapid responses over the last 48 hours due to hypoxia and desatting. The patient is able to tolerate minimal movements prior to desatting. Today the ICU is consulted for further evaluation. The patient is currently on 80% FiO2 he is awake alert and oriented. He states that he has shortness of breath however minimal cough. He does complain of some upper abdominal/lower rib pain which he attributes to his recent cough. He denies any chest pain. Does note that he has had some night sweats and fever over the last several days. There has been no significant improvement since arrival 3 days ago. His respiratory status remains unchanged if not slightly worse. He is currently on isolation with airborne precautions behind a closed door. At this point in time due to an abundance of caution as well as closer observation and monitoring we will transfer to the ICU for ongoing management of his acute hypoxic respiratory failure. I did discuss with the patient the probable need for intubation in the near future. He is okay with intubation 05/31- no acute overnight events, decrease in FiO2 needs, feels better with less WOB today, afebrile, 06/05-patient had been returned to the floor where initially he did well. Apparently over the last 24 to 36 hours he has had an increase in FiO2 requirements with a rapid response called last night. Rapid response called again this morning. Patient stated that he felt tired and unable to keep up. He is on 100% FiO2. He desats with minimal exertion. The decision was made to bring him to the ICU for intubation. This was discussed with the patient while he was awake and his family as well. 06/06- overnight pt remained on NMB, versed/prop/fent. brisk UOP >100cc/hr , afebrile, labs this AM showed a K of 7.8 for which he received insulin/Ca/D50/kayexolate 06/07-patient underwent dialysis yesterday for refractory hyperkalemia, he remains on deep sedation however off of propofol and off of paralytic. Continues with a good urinary output. Afebrile, have been able to come down on his FiO2 however persistent bilateral infiltrates severe on exam without conclusive underlying etiology as of this point in time. 06/08-no acute overnight events, this a.m. attempted to decrease sedation however patient became agitated and desatted. Required increased to 100% FiO2. When patient was suctioned blood was returned from the ET tube. Patient required paralytic and bagging in order to improve his sats. 06/23-has had a prolonged hospital course thus far. Was unable to be weaned from the vent. He was scheduled for tracheostomy today which took place with Dr Ryan. His Versed drip was stopped today. He remains on propofol and fentanyl. He is on multiple p.o. medications for severe agitation. Net negative over the last 24 hours however net positive since hospital stay. Afebrile 06/24- s/p trach yesterday, scheduled for PEG today, afebrile, vent dysynchrony overnight reason for which his fent was increased, off of prop. good UOP, afebrile 06/25- no acute overnight evetns, s/p PEG yesterday, afebrile, good UOP, intermittent episodes of tachypnea, attempting to wean fent off 06/26-off of fentanyl, yesterday spiked a fever of 101. Blood cultures were sent. No other acute overnight events 06/27- overnight became hypotensive receiving 2lts of IVF and then requiring vasopressors. He is clammy and diaphoretic today, good UOP Critical Care Note Critical care time (min.): 42 Exam Vital Signs Temp Pulse Resp BP Pulse Ox O2 Del Method O2 Flow Rate 98.8 F 121 H 35 H 102/59 L 98 Mechanical Ventilation 40 06/27/24 12:00 06/27/24 12:34 06/27/24 08:00 06/27/24 12:34 06/27/24 12:34 06/27/24 12:34 06/09/24 12:16 FiO2 50 06/27/24 12:00 Narrative Exam Gen- ill appearing, tachypneic, clammy, diaphoretic HEENT-normocephalic, atraumatic, temporal muscle wasting noted, oral mucosa is hydrated, trach in place Chest-coarse breath sounds throughout, diminished, some crackles at bases, heart rate regular rhythmic, tachycardic, some increased work of breathing Abdomen-soft, nontender, bowel sounds present, no rebound or guarding, PEG in place Extremities-pulses palpable, no clubbing or cyanosis, no mottling Vent AC/VC Physical Exam Completion Physical Exam Complete?: Yes 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 Labs 06/27/24 04:35 06/27/24 04:35 Labs: Laboratory Results - last 24 hr 06/26/24 06/26/24 06/26/24 12:35 19:10 21:55 WBC RBC Hgb Hct MCV MCH MCHC RDW Std Deviation Plt Count Neut % (Auto) Lymph % (Auto) [place] % (Auto) Eos % (Auto) Baso % (Auto) Neut # (Auto) Lymph # (Auto) [place] # (Auto) Eos # (Auto) Baso # (Auto) Immature Gran # (Auto) Absolute Nucleated RBC Immature Gran % Nucleated RBC % PT INR APTT 61.2 H D 56.8 H Puncture Site ABG pH ABG pCO2 ABG pO2 ABG HCO3 ABG O2 Saturation ABG Base Excess FiO2 Sodium 132 L Potassium 3.7 Chloride 98 Carbon Dioxide 29.4 Anion Gap 5 L BUN 21 Creatinine 0.7 Estim Creat Clear Calc 129.1 eGFR > 60 BUN/Creatinine Ratio 30 H Glucose 108 H Calculated Osmolality 268 L Lactic Acid 1.4 Calcium 7.6 L Corrected Calcium 8.6 Phosphorus 1.4 L Magnesium Total Bilirubin 0.4 AST 107 H ALT 116 H Alkaline Phosphatase 173 H Total Protein 5.5 L Albumin 2.7 L Globulin 2.8 Albumin/Globulin Ratio 1.0 L Procalcitonin 1.25 H 06/27/24 06/27/24 06/27/24 01:20 04:17 04:35 WBC 6.4 RBC 3.52 L Hgb 8.5 L Hct 27.5 L MCV 78 L MCH 24.1 L MCHC 30.9 L RDW Std Deviation 72.2 H Plt Count 282 Neut % (Auto) 71 Lymph % (Auto) 11 [place] % (Auto) 4 Eos % (Auto) 13 H Baso % (Auto) 0 Neut # (Auto) 4.6 Lymph # (Auto) 0.7 L [place] # (Auto) 0.3 Eos # (Auto) 0.8 H Baso # (Auto) 0.0 Immature Gran # (Auto) 0.10 H Absolute Nucleated RBC 0.00 Immature Gran % 2 H Nucleated RBC % 0 PT 14.0 H INR 1.3 APTT 61.3 H 44.1 H D Puncture Site Left Radial ABG pH 7.48 H ABG pCO2 39 ABG pO2 49 L* ABG HCO3 29 H ABG O2 Saturation 87 L ABG Base Excess 5 H FiO2 40 Sodium 131 L Potassium 3.1 L D Chloride 96 L Carbon Dioxide 28.4 Anion Gap 7 BUN 18 Creatinine 0.6 Estim Creat Clear Calc 150.6 eGFR > 60 BUN/Creatinine Ratio 30 H Glucose 106 Calculated Osmolality 264 L Lactic Acid Calcium 7.8 L Corrected Calcium 8.6 Phosphorus 0.9 L* Magnesium 1.7 Total Bilirubin 0.4 AST 110 H ALT 115 H Alkaline Phosphatase 182 H Total Protein 5.6 L Albumin 3.0 L Globulin 2.6 Albumin/Globulin Ratio 1.2 Procalcitonin 06/27/24 07:30 WBC RBC Hgb Hct MCV MCH MCHC RDW Std Deviation Plt Count Neut % (Auto) Lymph % (Auto) [place] % (Auto) Eos % (Auto) Baso % (Auto) Neut # (Auto) Lymph # (Auto) [place] # (Auto) Eos # (Auto) Baso # (Auto) Immature Gran # (Auto) Absolute Nucleated RBC Immature Gran % Nucleated RBC % PT INR APTT 54.3 H D Puncture Site ABG pH ABG pCO2 ABG pO2 ABG HCO3 ABG O2 Saturation ABG Base Excess FiO2 Sodium Potassium Chloride Carbon Dioxide Anion Gap BUN Creatinine Estim Creat Clear Calc eGFR BUN/Creatinine Ratio Glucose Calculated Osmolality Lactic Acid Calcium Corrected Calcium Phosphorus Magnesium Total Bilirubin AST ALT Alkaline Phosphatase Total Protein Albumin Globulin Albumin/Globulin Ratio Procalcitonin Assessment & Plan Problem List (1) Acute respiratory failure with hypoxia: Status: Acute Additional Assessment Additional Assessment: In brief this is a 39y M admitted for SOB and acute hypoxic resp failure with b/l PNA. a/p [employer] Agitation/ acute encephalopathy-patient required multiple IV drips for sedation and vent compliance. He was started on p.o. Seroquel and phenobarbital. He is also on Klonopin and oxycodone. Will continue to actively wean his IV drips - off fent - seroquel increased - remains intermittently agitated but profoundly encephalopathic -Will order an EEG and sent for an MRI of the brain with results currently pending CV Septic shock-overnight patient became hypotensive once more and spiked a fever. Blood cultures were obtained. Chest x-ray was obtained. He was given 2 L of IV fluids however still remained hypotensive and therefore Levophed was initiated. He has been started on broad-spectrum antibiotics with meropenem and linezolid. MRSA screen is sent once more. 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 monitor - mild WILL- resolved HypoPhos- replete via PEG once more Hypokalemia-replete via PEG GI Transaminitis- Hep viral panel is neg, - US shows some mild hepatomegaly - probable cholestasis - trending down - doing well GI proph- PPI Endo Hypoglycemia- has been NPO for procedure - give 1 amp D50 today HyperTrig- may be 2/2 prop -> stopped yesterday - recheck in a few days Heme Microcytic Anemia-iron deficiency anemia -Slow drift downwards with hemoglobin of 7 today -Transfuse for hemoglobin less than 7 -Patient started on p.o. iron - improved #s today - doing well DVT right upper extremity -heparin drip ID PNA-secondary to PCP VAP - grew out VRE and staph hemolyticus on 06/09 - seen by ID and recs noted HIV/ AIDS- on HAART tx -> fu with ID - JAYME proph if CD4 <50 case d/w ICU team labs, imaging, records reviewed ~42ccmin required for eval, exam, review, intervention , discussion and formulation of POC for this critically ill pt with resp failure at high risk for further and ongoing decompensation Provider Notation Provider Notation: Although this document has been carefully reviewed, there may still be some phonetic and other typographical errors. These errors are purely grammatical due to imperfections in the software program and should not be construed in any way to compromise the substance of the patient's medical care during this visit. Thank you for the opportunity and privilege in assisting you with this patient's care and management.
--- NOTE | 2024-06-27 14:25 | PD.RESPRO ---
Documentation for date of: 06/27/24 Subjective Subjective Interval history: 06/23/2024: The patient was examined and evaluated at the bedside this morning. Overnight propofol was cut down from 40 mcg to 30 mcg, fentanyl from 200 to 175 mcg. Heart rate has been in the range of 90s with RR improving to 24-27. Physical exam was significant for blisters over right forearm, abrasion over lower lip, and onychomycosis of right big toe. Hemoglobin was 7.0 down from 7.9 yesterday, ABG revealed pH 7.46 with pCO2 53 and HCO3 38. Sodium stable about 132, chloride 93 and phosphorus 1.8. Neutra-Phos 1 packet was given. Liver enzymes downtrending and stable. Mild increase in triglyceride with level of 205. 06/24/2024: The patient was examined and evaluated at the bedside this morning. Propofol was weaned off yesterday evening, and fentanyl was titrated down to 175 mcg/h, but this morning patient was agitated and overnight team increased the dose to 225 mcg/h. However, we were able to titrate the fentanyl dose to 50 mcg/h by this morning. The patient continues to have loose stools, and his laxatives were stopped. ABG this morning was revealing pH of 7.29 with pCO2 80. Ventilator setting was changed with tidal volume 450 and RR 30. Physical exam was significant for abrasion over lower lips, blisters measuring from 1 to 2 cm with few ruptured blisters over right forearm along with onychomycosis of right big toe. Hemoglobin this morning was 8.6, sodium continues to be 132, chloride 92, blood sugar trended down to 69 this morning and AST/ALT trending down to 92/112. Triglyceride trended up to 313 from 205. The plan is to titrate off the fentanyl and later titrate down the oral sedatives. Repeat ABG was stable. The patient is planned for PEG tube placement with Dr. Ryan today. The patient will also be planned for downgrade to MedSur unit followed by discharge at some acute rehab once he is completely out of IV sedatives. 06/25/2024: The patient was examined and evaluated at the bedside this morning. Fentanyl was weaned off this morning. Patient is mechanically ventilated, and there was mild increased work of breathing. Heart rate in 120s to 130s, RR 30-40, saturating 88 to 95% on FiO2 45%. Versed 1 Mg x 1 was given. Physical exam was significant for increased work of breathing with bilateral rhonchi, lower lips with mild and present, right arm with ruptured and crusting blisters and mild bleeding from tracheostomy tube insertion site. We added Seroquel 50 Mg x 1 and changed the dose of Seroquel to 100 Mg twice daily. We will resume the heparin drip for right upper extremity DVT. Prednisone was tapered down to 10 Mg daily. Labs are significant for hemoglobin is a stable at 8.6. Potassium 3.6, magnesium 1.6, phosphorus 1.8, triglyceride trended down to 305, and sodium 133. ABG revealed pH 7.46, pCO2 53, pO2 66 and bicarb 38. We will observe the patient and if his RR is in 30s, we will downgrade this patient to telemetry unit. 06/26/2024: The patient was examined and evaluated at the bedside this morning. Patient is off of any sedatives or pressor support. Patient is mechanically ventilated through tracheostomy tube. The patient had 1 episode of fever overnight, and blood culture is pending. His heart rate has been in the range of 120s to 130s with RR between 28-36, saturating 92% on FiO2 50%. The patient received 2 mg IV hydromorphone x 1. His hemoglobin has been stable at 8.9, we will continue with oral ferrous sulfate 325 Mg daily, ABG revealed pH 7.46, pCO2 43, pO2 58 and bicarb 31. He received 1 dose of Diamox 500 Mg IV, sodium 130, potassium 3.5 and Veltassa was discontinued, phosphorus was 1.4 and we will repeat it further. The patient will be downgraded to telemetry unit we will continue with enteral sedatives phenobarbital 90 Mg 3 times daily, clonazepam 2 mg 3 times daily, oxycodone 10 mg 3 times daily and Seroquel 100 Mg twice daily. His sedatives will be continued for 2 weeks at this point and after that the plan is to taper down the sedatives. We will continue with HAART, micafungin until fungal culture is negative and continue with Bactrim DS daily for PCP pneumonia prophylaxis. 06/27/2024: Patient seen and examined in bedside in the ICU. Overnight patient developed hypotension, tachycardia, tachypnea, fever, was scheduled for downgrade but was readmitted to ICU for septic shock requiring pressors. Patient is mechanically ventilated via trach tube. New blood cultures, sputum cultures, urine cultures collected. Patient started on linezolid and meropenem. Continue enteral sedation. Repleted potassium and phosphorus. Exam Vital Signs Temp Pulse Resp BP Pulse Ox O2 Del Method O2 Flow Rate 98.8 F 121 H 35 H 102/59 L 98 Mechanical Ventilation 40 06/27/24 12:00 06/27/24 12:34 06/27/24 08:00 06/27/24 12:34 06/27/24 12:34 06/27/24 12:34 06/09/24 12:16 FiO2 50 06/27/24 12:00 Narrative Exam GEN: Critically ill, not acutely distressed, sedated and mechanically ventilated. Neuro: Deferred due to sedation. HEENT: NCAT, tracheostomy tube on appropriate position, mild abrasion over lower lips, improving. CVS: RRR, S1S2 present, no M/R/G. No JVD Respi: Mechanically ventilated, b/l breath sounds heard, coarse, no wheezing/crackles. ABD: Soft, no grimace to palpation, bowel sounds present in all 4 quadrants, PEG tube in appropriate place Skin: warm, dry and intact. Extremities: Pulses 2+ in all extremities, BUE edema, ruptured vesicles 1-2 cm on the rt forearm surface that have been healing. Objective Labs 06/27/24 04:35 06/27/24 04:35 Labs: Laboratory Results - last 24 hr 06/26/24 06/26/24 06/27/24 19:10 21:55 01:20 WBC RBC Hgb Hct MCV MCH MCHC RDW Std Deviation Plt Count Neut % (Auto) Lymph % (Auto) Haskell % (Auto) Eos % (Auto) Baso % (Auto) Neut # (Auto) Lymph # (Auto) Haskell # (Auto) Eos # (Auto) Baso # (Auto) Immature Gran # (Auto) Absolute Nucleated RBC Immature Gran % Nucleated RBC % PT INR APTT 56.8 H 61.3 H Puncture Site ABG pH ABG pCO2 ABG pO2 ABG HCO3 ABG O2 Saturation ABG Base Excess FiO2 Sodium 132 L Potassium 3.7 Chloride 98 Carbon Dioxide 29.4 Anion Gap 5 L BUN 21 Creatinine 0.7 Estim Creat Clear Calc 129.1 eGFR > 60 BUN/Creatinine Ratio 30 H Glucose 108 H Calculated Osmolality 268 L Lactic Acid 1.4 Calcium 7.6 L Corrected Calcium 8.6 Phosphorus Magnesium Total Bilirubin 0.4 AST 107 H ALT 116 H Alkaline Phosphatase 173 H Total Protein 5.5 L Albumin 2.7 L Globulin 2.8 Albumin/Globulin Ratio 1.0 L Procalcitonin 1.25 H 06/27/24 06/27/24 06/27/24 04:17 04:35 07:30 WBC 6.4 RBC 3.52 L Hgb 8.5 L Hct 27.5 L MCV 78 L MCH 24.1 L MCHC 30.9 L RDW Std Deviation 72.2 H Plt Count 282 Neut % (Auto) 71 Lymph % (Auto) 11 Haskell % (Auto) 4 Eos % (Auto) 13 H Baso % (Auto) 0 Neut # (Auto) 4.6 Lymph # (Auto) 0.7 L Haskell # (Auto) 0.3 Eos # (Auto) 0.8 H Baso # (Auto) 0.0 Immature Gran # (Auto) 0.10 H Absolute Nucleated RBC 0.00 Immature Gran % 2 H Nucleated RBC % 0 PT 14.0 H INR 1.3 APTT 44.1 H D 54.3 H D Puncture Site Left Radial ABG pH 7.48 H ABG pCO2 39 ABG pO2 49 L* ABG HCO3 29 H ABG O2 Saturation 87 L ABG Base Excess 5 H FiO2 40 Sodium 131 L Potassium 3.1 L D Chloride 96 L Carbon Dioxide 28.4 Anion Gap 7 BUN 18 Creatinine 0.6 Estim Creat Clear Calc 150.6 eGFR > 60 BUN/Creatinine Ratio 30 H Glucose 106 Calculated Osmolality 264 L Lactic Acid Calcium 7.8 L Corrected Calcium 8.6 Phosphorus 0.9 L* Magnesium 1.7 Total Bilirubin 0.4 AST 110 H ALT 115 H Alkaline Phosphatase 182 H Total Protein 5.6 L Albumin 3.0 L Globulin 2.6 Albumin/Globulin Ratio 1.2 Procalcitonin ABG Interpretation ABG results: 05/27/24 05/29/24 05/29/24 23:37 10:44 22:08 ABG pH 7.51 H 7.50 H 7.48 H ABG pCO2 28 L 32 32 ABG pO2 75 L 79 L 145 H D ABG HCO3 23 25 24 ABG O2 Saturation 96 95 98 ABG Base Excess 0 2 1 05/30/24 05/31/24 06/04/24 08:45 04:54 02:10 ABG pH 7.47 H 7.45 7.45 ABG pCO2 35 38 36 ABG pO2 86 D 82 L 139 H ABG HCO3 26 26 25 ABG O2 Saturation 97 96 98 ABG Base Excess 2 2 1 06/04/24 06/05/24 06/05/24 18:16 11:36 12:59 ABG pH 7.44 7.11 L* D 7.20 L ABG pCO2 36 94 H* D 68 H D ABG pO2 80 L D 150 H D 121 H D ABG HCO3 24 30 H 26 ABG O2 Saturation 94 97 97 ABG Base Excess 0 -2 -3 06/05/24 06/06/24 06/06/24 19:25 04:13 15:27 ABG pH 7.22 L 7.27 L 7.30 L ABG pCO2 64 H 57 H 60 H ABG pO2 122 H 153 H D 74 L D ABG HCO3 26 26 29 H ABG O2 Saturation 97 99 H 92 ABG Base Excess -3 -2 2 06/07/24 06/07/24 06/08/24 03:55 09:59 04:20 ABG pH 7.41 D 7.43 7.45 ABG pCO2 56 H 55 H 50 H ABG pO2 293 H D 78 L D 75 L ABG HCO3 36 H 37 H 35 H ABG O2 Saturation 99 H 95 94 ABG Base Excess 10 H 11 H 10 H 06/08/24 06/08/24 06/08/24 11:05 11:50 13:18 ABG pH 7.17 L* D 7.10 L* 7.15 L* ABG pCO2 95 H* D 115 H* D 88 H* D ABG pO2 89 75 L 72 L ABG HCO3 34 H 36 H 31 H ABG O2 Saturation 92 84 L 85 L ABG Base Excess 3 4 H 0 06/08/24 06/09/24 06/09/24 17:02 01:33 03:15 ABG pH 7.18 L* 7.22 L 7.27 L ABG pCO2 50 H D 91 H* D 82 H* ABG pO2 82 L 105 D 86 ABG HCO3 19 L 37 H 38 H ABG O2 Saturation 93 97 95 ABG Base Excess -9 L 7 H 9 H 06/09/24 06/09/24 06/10/24 05:08 12:52 04:40 ABG pH 7.31 L 7.33 L 7.30 L ABG pCO2 75 H* 57 H D 78 H* D ABG pO2 97 158 H D 65 L D ABG HCO3 38 H 30 H 38 H ABG O2 Saturation 97 99 H 90 L ABG Base Excess 10 H 3 9 H 06/10/24 06/11/24 06/12/24 09:40 04:19 04:15 ABG pH 7.27 L 7.35 7.48 H D ABG pCO2 88 H* D 86 H* 63 H D ABG pO2 65 L 70 L 76 L ABG HCO3 40 H 48 H 47 H ABG O2 Saturation 89 L 93 95 ABG Base Excess 10 H 19 H 21 H 06/13/24 06/14/24 06/15/24 07:22 04:32 03:45 ABG pH 7.46 H 7.48 H 7.46 H ABG pCO2 56 H 40 D 37 ABG pO2 80 L 64 L 71 L ABG HCO3 39 H 30 H 27 H ABG O2 Saturation 95 92 94 ABG Base Excess 13 H 6 H 3 06/15/24 06/15/24 06/15/24 10:17 12:20 14:20 ABG pH 7.01 L* D 7.00 L* 7.03 L* ABG pCO2 122 H* D 130 H* 125 H* ABG pO2 91 D 88 82 L ABG HCO3 31 H 32 H 33 H ABG O2 Saturation 88 L 88 L 87 L ABG Base Excess -3 -2 -1 06/15/24 06/15/24 06/16/24 15:55 20:39 00:35 ABG pH 7.03 L* 7.08 L* 7.10 L* ABG pCO2 121 H* 116 H* 118 H* ABG pO2 99 117 H 102 ABG HCO3 32 H 34 H 37 H ABG O2 Saturation 93 97 96 ABG Base Excess -1 2 4 H 06/16/24 06/16/24 06/17/24 04:45 08:55 05:06 ABG pH 7.17 L* 7.28 L D 7.33 L ABG pCO2 112 H* 88 H* D 96 H* ABG pO2 155 H D 98 D 126 H D ABG HCO3 41 H 41 H 50 H ABG O2 Saturation 99 H 98 99 H ABG Base Excess 9 H 12 H 21 H 06/17/24 06/17/24 06/18/24 10:58 13:55 04:16 ABG pH 7.29 L 7.29 L 7.33 L ABG pCO2 106 H* D 106 H* 86 H* D ABG pO2 58 L* D 61 L 77 L ABG HCO3 51 H 51 H 45 H ABG O2 Saturation 87 L 88 L 95 ABG Base Excess 21 H 21 H 17 H 06/19/24 06/20/24 06/21/24 04:18 04:49 04:06 ABG pH 7.42 7.36 7.44 ABG pCO2 63 H D 74 H* D 61 H D ABG pO2 66 L 55 L* 202 H D ABG HCO3 41 H 42 H 42 H ABG O2 Saturation 93 87 L 100 H ABG Base Excess 15 H 14 H 16 H 06/22/24 06/23/24 06/24/24 04:18 04:29 04:25 ABG pH 7.45 7.46 H 7.29 L D ABG pCO2 57 H 53 H 80 H* D ABG pO2 60 L D 99 D 88 ABG HCO3 40 H 38 H 38 H ABG O2 Saturation 91 99 H 96 ABG Base Excess 14 H 13 H 9 H 06/24/24 06/25/24 06/25/24 08:50 05:13 11:02 ABG pH 7.40 D 7.46 H Cancelled ABG pCO2 61 H D 53 H Cancelled ABG pO2 110 H D 66 L D Cancelled ABG HCO3 38 H 38 H Cancelled ABG O2 Saturation 99 H 94 Cancelled ABG Base Excess 12 H 13 H Cancelled 06/25/24 06/26/24 06/26/24 15:53 04:13 11:40 ABG pH 7.39 7.41 7.46 H ABG pCO2 53 H 48 43 ABG pO2 55 L* 58 L* 58 L* ABG HCO3 32 H 30 H 31 H ABG O2 Saturation 86 L 89 L 92 ABG Base Excess 6 H 5 H 6 H 06/27/24 04:17 ABG pH 7.48 H ABG pCO2 39 ABG pO2 49 L* ABG HCO3 29 H ABG O2 Saturation 87 L ABG Base Excess 5 H Quality Measures Quality Measures sepsis Current suspected stage: sepsis Possible source: pulmonary, GI tract/intra-abdominal, genitourinary and skin/soft tissue Blood cultures ordered: yes Antibiotic ordered: Yes Assessment & Plan Assessment Current Active Medications: Generic Name Dose Route Start Last Admin Trade Name Freq PRN Reason Stop Dose Admin Acetaminophen 650 mg 06/26/24 15:16 06/27/24 04:33 Acetaminophen Munira 325 Mg/10 Ml Udc GT 07/26/24 15:15 650 mg Q4HR PRN Administration Pain Or Fever > 100.3 Albuterol/Ipratropium 3 ml 06/05/24 11:40 06/25/24 08:58 Albuterol/Ipratropium (Duoneb) Rt Munira 3 Ml Nebu INH 07/05/24 14:59 3 ml Q4HRRT PRN Administration Wheezing Artificial Tears 1 drop 06/18/24 12:00 06/27/24 13:09 Artificial Tears 225 Drop/15 Ml Btl BOTH EYES 07/18/24 11:59 1 drop QID JUAN JOSE Administration Dextrose 25 ml 06/06/24 08:20 Dextrose 50%-Water Inj 50 Ml Syringe IV 07/06/24 08:19 Q15MIN PRN BG 50-70 responsive npo pt Dextrose 50 ml 06/06/24 08:20 Dextrose 50%-Water Inj 50 Ml Syringe IV 07/06/24 08:19 Q15MIN PRN BG <50 OR BG <70 & pt unresponsive Docusate Sodium 100 mg 06/25/24 09:13 Docusate Sod Liqd 100 Mg/10 Ml Udc PO 07/22/24 08:59 BID PRN Constipation Protocol Emtricitabine/Tenofovir 1 tab 06/16/24 12:30 06/27/24 08:32 Emtricitabine 200 Mg/Tenofovir 300 Mg Tab (Non-Form) PO 07/16/24 12:29 1 tab QDAY JUAN JOSE Administration Ferrous Sulfate 325 mg 06/23/24 10:00 06/27/24 08:23 Ferrous Sulf 325 Mg Tablet PO 07/23/24 09:59 325 mg QDAY JUAN JOSE Administration Glucagon 1 mg 06/06/24 08:20 Glucagon Inj 1 Mg Vial IM Q15MIN PRN BG <70, and no IV access Heparin Sodium/Dextrose 25,000 unit in 250 mls @ 13.122 mls/hr 06/25/24 16:15 06/27/24 13:14 Heparin In D5w Ivpb IV 06/29/24 14:44 22 units/kg/hr .Q19H4M JUAN JOSE 16.038 mls/hr Administration Protocol 18 UNITS/KG/HR Norepinephrine/Dextrose 8 mg in 250 mls @ 6.722 mls/hr 06/27/24 00:44 06/27/24 14:25 Levophed In D5w 8mg/250ml IV 07/27/24 00:43 0.05 mcg/kg/min .Q24H PRN 6.722 mls/hr PER PROTOCOL Titration Protocol 0.05 MCG/KG/MIN Linezolid 600 mg in 300 mls @ 300 mls/hr 06/27/24 09:00 06/27/24 10:43 Zyvox Ivpb IV 07/04/24 08:59 300 mls/hr Q12HR JUAN JOSE Administration Meropenem 1,000 mg/ Sodium 50 mls @ 100 mls/hr 06/27/24 08:45 06/27/24 14:05 Chloride IV 07/04/24 08:44 100 mls/hr Q8HR JUAN JOSE Administration Labetalol HCl 5 mg 06/23/24 18:13 06/23/24 18:20 Labetalol Inj 5 Mg/Ml Vial 20 Ml IVP 07/23/24 18:14 5 mg Q6H PRN Administration SBP > 180 or DBP > 110 Ondansetron HCl 4 mg 05/29/24 21:51 06/04/24 17:44 Ondansetron Inj 2 Mg/Ml Inj 2 Ml IV 06/28/24 21:50 4 mg Q6HR PRN Administration NAUSEA OR VOMITING Protocol Pantoprazole Sodium 40 mg 06/06/24 09:00 06/27/24 08:24 Pantoprazole Inj 40 Mg Vial IVP 07/06/24 08:59 40 mg QDAY JUAN JOSE Administration Phenobarbital 90 mg 06/22/24 14:00 06/27/24 14:07 Phenobarbital Elix 20 Mg/5 Ml Udc GT 07/06/24 13:59 90 mg TID JUAN JOSE Administration Potassium Phos/Sodium Phos 1 packet 06/27/24 09:00 06/27/24 14:05 Naph,Kph Mbdb 1 Packet (1.5 Gm) PO 07/27/24 08:59 1 packet TID JUAN JOSE Administration Prednisone 10 mg 06/26/24 09:00 06/27/24 08:23 Prednisone 5 Mg Tablet PO 07/26/24 08:59 10 mg QDAY JUAN JOSE Administration Quetiapine Fumarate 100 mg 06/25/24 21:00 06/27/24 08:23 Quetiapine Fumarate 25 Mg Tablet PO 07/25/24 20:59 100 mg BID JUAN JOSE Administration Raltegravir 400 mg 06/23/24 21:00 06/27/24 08:32 Raltegravir 400 Mg Tablet NG 06/30/24 20:59 400 mg BID JUAN JOSE Administration Trimethoprim/Sulfamethoxazole 20 ml 06/23/24 09:00 06/27/24 08:32 Trimethoprim/Sulfa Susp 1 Ml PO 06/22/25 12:00 20 ml QDAY JUAN JOSE Administration Plan 39-year-old male patient with no PMHx who initially presented to [facility] on 05/27/2024 with a chief complaint of shortness of breath and cough, with associated chills, body aches, generalized weakness, fever, and night sweats beginning weeks prior but progressively worsening over a few days is currently being treated for acute hypoxic respiratory failure secondary to PCP pneumonia that was complicated by ventilator associated pneumonia. Patient is currently on tracheostomy tube and mechanically ventilated. 06/26/2024: The patient was examined and evaluated at the bedside this morning. Patient is off of any sedatives or pressor support. Patient is mechanically ventilated through tracheostomy tube. The patient had 1 episode of fever overnight, and blood culture is pending. His heart rate has been in the range of 120s to 130s with RR between 28-36, saturating 92% on FiO2 50%. The patient received 2 mg IV hydromorphone x 1. His hemoglobin has been stable at 8.9, we will continue with oral ferrous sulfate 325 Mg daily, ABG revealed pH 7.46, pCO2 43, pO2 58 and bicarb 31. He received 1 dose of Diamox 500 Mg IV, sodium 130, potassium 3.5 and Veltassa was discontinued, phosphorus was 1.4 and we will repeat it further. The patient will be downgraded to telemetry unit we will continue with enteral sedatives phenobarbital 90 Mg 3 times daily, clonazepam 2 mg 3 times daily, oxycodone 10 mg 3 times daily and Seroquel 100 Mg twice daily. His sedatives will be continued for 2 weeks at this point and after that the plan is to taper down the sedatives. We will continue with HAART, micafungin until fungal culture is negative and continue with Bactrim DS daily for PCP pneumonia prophylaxis. NEURO #Acute encephalopathy, secondary to prolonged sedation 06/05/2024 Patient was intubated, sedated, and paralyzed for ARDS. Currently switched IV sedatives to enteral sedatives with phenobarbital 90 Mg 3 times daily, clonazepam 2 Mg 3 times daily and oxycodone 10 Mg 3 times daily. -Continue with oral sedatives for 2 more weeks, and then taper down if tolerated -There was a concern of hypoxemia and due to long to sedation there could be possible neuronal damage. We have ordered brain MRI with and without contrast and EEG. -MRI showed no acute hemorrhage, infarct, mass effect, or midline shift. No findings diagnostic for demyelinating disease. EEG read pending. #Fever Patient repeat fever overnight along with hypotension, tachypnea, tachycardia. New septic shock. Multiple cultures pending, antibiotics broadened. -Treat underlying condition -Tylenol as needed CARDIO #Right upper extremity DVT. -Doppler US right upper extremity 06/17/24: revealed RUE DVT -On Heparin Drip, can be switched to oral anticoagulants #Sinus tachycardia Tachycardia most likely secondary to respiratory distress and agitation 2/2 AHRF in the setting of tapering down sedatives -Continue to treat the underlying cause #Septic shock Patient presented with septic shock secondary to severe extensive bilateral pneumonia. After resolution of initial septic shock, patient developed new hypotension, tachycardia, tachypnea, fevers indicated of septic shock. -Pressor support -Linezolid (started 06/27) -Meropenem (started 06/27) -Follow-up blood, urine, sputum cultures PULM #Chronic hypoxic respiratory failure Secondary to #Bilateral pneumocystis jirovecii pneumonia, resolved #Healthcare associated pneumonia, resolved, resolved #Ventilator associated pneumonia, resolved #Chronic respiratory distress syndrome as a consequence of ARDS 2/2 PCP pneumonia #S/P Tracheostomy Patient presented with dyspnea and cough, requiring 4L NC on first ED evaluation, and history of chills, body aches, generalized weakness, fever, and night sweats progressively worsening over the prior weeks. Approx 20-pack year smoking history, occasional marijuana. 06/17/2024 oxygenation and hypercapnia improved, was put in supine position, continued to be paralyzed. On linezolid 600 mg q12h 06/15/24-06/22/24 Plan: -Linezolid (started 06/27) and Meropenum (startd 06/27) -Ventilation on volume control, saturation to be maintained >90% -Continue Bactrim 06/01/24 - completed on 06/22/24, but extended as per ID for PCP pneumonia prophylaxis in the setting of CD4 count of 116 -Continue micafungin for further management of PCP pneumonia and as fungal culture is pending from respiratory circulation 100 mg qday 06/09/24- -Fungal cultures from BAL pending -DuoNebs q4h as needed -New blood cultures, urine cultures, sputum cultures (06/27) pending GI GI prophylaxis: Pantoprazole 40 mg IV qday #Elevated LFTs, improving Likely due to propofol and bactrim. Mildly elevated, liver US 05/30/2024 showed normal gallbladder and hepatomegaly without lesions or evidence of obstructions. Hep panel negative. LFTs downtrended compared to 06/06/24. 06/15/2024 Floyd in LFTs with AST 303, ALT 420, Tbili 1.3, therefore right upper quadrant US ordered, negative for cholecystitis/cholelithiasis, hepatitis panel negative. No obvious changes on physical exam. 06/20/24: LFT AST/ALT/ALP : 99/123/118 Plan: -Continue monitoring #Hypertriglyceridemia, trending down More likely secondary to propofol use -We will repeat lipid panel on 06/30/2024 NEPHRO #Hypophosphatemia: Phosphorus trended down to 1.4 even after repletion #WILL, resolved #Hyperkalemia---Resolved #Hyperphosphatemia, resolved Plan: -Discontinued Veltassa as potassium has been in the lower end of normal value -Nephrology Dr. Song is following for as-needed dialysis due to hyperkalemia -Maintain euvolemia -Monitor CMP, especially phosphorus -Replete electrolytes as needed. #Mild hyponatremia Secondary to SIADH due to acute hypoxic respiratory failure leading to pulmonary distress -Continue to monitor #Primary Respiratory acidosis over compensated by metabolic alkalosis, stable Secondary to increased work of breathing and increased RR 2/2 chronic hypoxic respiratory failure and chronic respiratory distress syndrome in the setting of tapering down of IV sedatives -ABGs revealed pH of 7.46, pCO2 53, pO2 66 and bicarb 38. -We will treat the underlying cause HEME #Leukocytosis, resolved Fluctuating WBC. In the setting of likely infection, inflammation, and corticosteroids. Plan: -Treatment of pneumonia as above #Microcytic anemia 2/2 STEPHY and Inflammatory anemia Stable, has not required any transfusions this admission thus far. Clinically no evidence of bleeding. Iron panel shows iron 17, TIBC 262, iron saturation 6, unsaturated iron binding 245. Peripheral blood film confirms microcytic hypochromic anemia with target cells. Also daily lab draws contributing. Plan: -Started on oral ferrous sulfate 325 Mg daily -Monitor H&H. Transfusing for Hgb <7 #Thrombocytosis, resolved Likely reactive. -Continue to monitor ENDO #Hypoglycemia, resolved Blood glucose this morning was 69, likely secondary to increased metabolic acid complicated by stopping enteral feeding -Bolus D50W given -Repeat blood sugar was stable -We will resume enteral feeding after PEG tube placement ID #Bilateral pneumocystis pneumonia #Healthcare associated pneumonia #Ventilator associated pneumonia #PCP pneumonia prophylaxis Negative studies: Cocci IgM and IgG, Hepatitis panel, Syphilis, Legionella, H.flu, N.meningitidis, Strep B, Strep pneumoniae, COVID, RSV, Flu A & B. TB quantiferon GOLD-indeterminate, however 06/05 AFB negative, CMV IgM, cryptococcal antigen negative. G6PD levels came back normal for consideration of dapsone alternative to Bactrim if needed. Patient completed 5 day course of azithromycin, 16 days of Zosyn. See Pulm for timeline of antimicrobial coverage. On 06/27 patient developed new septic shock Plan: -Antibiotcs Bactrim for prevention of PCP pneumonia in the setting of CD4 count of 116 and antifungal micafungin as fungal culture from ET tube secretion is pending. -Linezolid and meropenum -Fungal cultures from BAL pending -New blood cultures sent 06/15?negative for growth -New ET culture sent 06/15?negative for growth -Follow up blood, sputum, and urine cultures #AIDS/HIV Patient has Stage 4 HIV, AIDS-defining illness with opportunistic infection. 06/07/2024 Bronchoalveolar lavage cytology shows Pneumocystis jirovecii. Also other fungi, possibly Kassandra. Kassandra is most likely a contaminant. Blood [id number] also positive. 06/08/2024 HIV quant 5.66 million copies. HIV 1 positive confirmed. 06/09/2024 Patient's decision maker, Francesca, was informed of diagnosis due to critical state of patient. Absolute CD4 count 87 and 22% on 06/02. History/risk factors: History of injection anabolic androgenic steroid and testosterone use, possible unclean needles. History of incarceration (unknown time). Tattoos received as a teenager. Has 1 female sexual partner last 5 years, denies others. -Continue HAART: emtricitabine / tenofovir (Truvada) and raltegravir initiated 06/09/24 -Patient is not aware of his diagnosis as he has been intubated and sedated before results returned. Will require complete education and counseling on the disease if his mental status and clinical condition improves. 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 The patient is being downgraded to telemetry unit for further management of chronic hypoxic respiratory failure s/p tracheostomy. DVT prophylaxis: On heparin drip for treatment of right upper extremity DVT GI prophylaxis: Pantoprazole 40 mg IV qday Diet: Tube feeds Nepro [place]: No, condom cath Lines: Peripheral IV Antibiotics: Bactrim, micafungin, linezolid, meropenum CODE STATUS: FULL CODE Patient plan of care was discussed with the attending physician, Dr. Walsh. Landon Tracey MD PGY-1
[2024-06-27 14:39] LABS: Collection Type, Urine Catheter
[2024-06-27 14:59] LABS: Bilirubin,Urine Negative (Negative); Blood,Urine Negative (Negative); Clarity,Urine Clear (Clear/Hazy); Color,Urine Yellow (Lt Yel-Yel); Glucose, Urine Negative (Negative); Ketones,Urine Negative (Negative); Leukocyte Esterase,Urine Negative (Negative); Nitrite,Urine Negative (Negative); PH,Urine 6.5 (5.0-7.0); Protein,Urine 1+ (Neg - Trace); RBC,Urine 1 /hpf (0-3); Specific Gravity,Urine 1.011 (1.001-1.035); Squamous Epithelial Cell,Urine < 1 /hpf (0-5); WBC,Urine 1 /hpf (0-5)
--- NOTE | 2024-06-27 21:55 | PC.RT ---
settings found on ventilator difer from order, order updated RN aware.
[2024-06-27] MEDS: LORazepam 2 MG/ML VIAL IVP (22:28)
[2024-06-27] MEDS: MORPHINE SULF INJ 10 MG/ML VIAL IVP (23:51)
[2024-06-28] VITALS (102 sets, daily range): BP systolic 88–119; BP diastolic 48–73; PULSE 99–163; RESP 23–41; TEMP 36.3–39.9; O2SAT 88–99; BMI 24.3
[2024-06-28] MEDS: oxyCODONE HCL 5 MG IR TAB 10 MG PO ×4 (00:39→21:39)
[2024-06-28] MEDS: LORazepam 2 MG/ML VIAL IVP (03:54)
[2024-06-28 04:36] LABS: Base Excess 5 (-3-3); HCO3 33 mEq/L (20-26); Inspired Oxygen, FIO2 55 %; O2 Saturation 93 % (91-98); PCO2 72 mmHg (32.0-48.0); PO2 71 mmHg (83-108); pH, Arterial 7.27 (7.35-7.45)
[2024-06-28] MEDS: HYDROmorphone INJ 2 MG/ML VIAL IVP ×2 (04:41)
[2024-06-28 04:43] LABS: Allen Test Performed/OK; Puncture Site Right Radial
--- NOTE | 2024-06-28 05:00 | XR_ITS ---
Examination: AP chest single view Technique one AP portable semiupright chest single view Exam date and time: January 27, 2024 at 0537 hrs. Comparison January 25, 2024 Indications: Hypoxic respiratory failure post tracheostomy, ARDS severe diffuse pattern weeks Findings: Severe bilateral lung opacity Tracheostomy tube tip 5.3 cm above sunil Intact osseous structures No pneumothorax Impression: No significant change in severe pneumonia/ARDS pattern
[2024-06-28] MEDS: MEROPENEM INJ 1,000 MG in SODIUM CHLORIDE 0.9% (P) 50 ML 100 MG IV ×3 (05:10→21:40)
[2024-06-28] MEDS: Artificial Tears 225 DROP/15 ML BTL BOTH EYES ×4 (05:11→21:38)
[2024-06-28] MEDS: NAPH,KPH MBDB 1 PACKET (1.5 GM) PO ×3 (05:12→21:39)
[2024-06-28 05:59] LABS: Basophils % (Auto) 0 % (0-2.5); Eosinophils # (Auto) 0.6 Thou/mm3 (0.0-0.5); Eosinophils % (Auto) 6 % (0-10); Hematocrit 28.7 % (41.0-53.0); Immature Granulocytes % (Auto) 1 % (0-0); Immature Granulocytes Auto 0.11 Thou/mm3 (0.00-0.00); Lymphocytes % (Auto) 9 % (10-50); Mean Corpuscular HGB Conc 29.6 g/dl (31.0-37.0); Mean Corpuscular Hemoglobin 23.9 pg (25.0-35.0); Mean Corpuscular Volume 81 fL (80-100); Monocytes # (Auto) 0.7 Thou/mm3 (0.0-0.8); Monocytes % (Auto) 6 % (0-12); Neutrophils % (Auto) 77 % (37-80); Nucleated Red Blood Cell # 0.02 Thou/mm3 (0.00-0.00); Nucleated Red Blood Cell % 0 /100 WBC (0); Platelet Count 327 Thou/mm3 (140-440); RDW Standard Deviation 74.9 fL (35.1-43.9); Red Blood Count 3.56 Miln/mm3 (4.50-5.90); White Blood Count 10.4 Thou/mm3 (3.8-10.6)
[2024-06-28 06:05] LABS: Hemoglobin 8.5 g/dL (13.5-16.0)
[2024-06-28 06:17] LABS: Alanine Aminotransferase 118 U/L (10-49); Alkaline Phosphatase 201 U/L (46-116); Anion Gap 3 (7-16); Aspartate Amino Transferase 107 U/L (0-34); BUN/Creatinine Ratio 24 Ratio (12-20); Bilirubin,Total 0.2 mg/dL (0.3-1.2); Blood Urea Nitrogen 19 mg/dL (9-23); Calcium 7.6 mg/dL (8.3-10.6); Calcium (Corrected) 8.4 mg/dL (8.5-10.1); Carbon Dioxide 33.1 mMol/L (20.0-31.0); Chloride 97 mMol/L (98-107); Creatinine (Component) 0.8 mg/dL (0.6-1.3); Globulin 2.9 gm/dL (2.3-3.5); Glucose 119 mg/dL (74-106); Osmolality,Calculated 269 (275-295); Phosphorous 2.9 mg/dL (2.4-5.1); Potassium 4.7 mMol/L (3.4-5.1); Sodium 133 mMol/L (136-145); Total Protein 5.9 gm/dL (5.7-8.2); eGFR > 60 See Note
[2024-06-28 06:36] LABS: Base Excess 4 (-3-3); HCO3 34 mEq/L (20-26); Inspired Oxygen, FIO2 55 %; O2 Saturation 95 % (91-98); PCO2 83 mmHg (32.0-48.0); PO2 82 mmHg (83-108); pH, Arterial 7.22 (7.35-7.45)
[2024-06-28 06:50] LABS: Allen Test Not Performed; Puncture Site Site Not Noted
[2024-06-28 06:54] LABS: Partial Thromboplastin Time 120.9 Seconds (22.0-36.0)
[2024-06-28] MEDS: ACETAMINOPHEN SOL 325 MG/10 ML UDC 650 MG GT (08:05)
[2024-06-28] MEDS: FERROUS SULF 325 MG TABLET PO (08:06)
[2024-06-28] MEDS: predniSONE 5 MG TABLET 10 MG PO (08:06)
[2024-06-28] MEDS: QUEtiapine FUMARATE 25 MG TABLET 100 MG PO (08:06)
[2024-06-28] MEDS: TRIMETHOPRIM PO (08:07)
[2024-06-28] MEDS: EMTRICITABINE 200 MG/TENOFOVIR 300 MG TAB (NON-FORM) 1 TAB PO (08:07)
[2024-06-28] MEDS: SULFAMETHOXAZOLE PO (08:07)
[2024-06-28] MEDS: RALTEGRAVIR 400 MG TABLET NG ×2 (08:08→22:22)
[2024-06-28] MEDS: LINEZOLID 600 MG IVPB 600 MG/300 ML BAG 300 MG IV ×2 (08:08→21:38)
[2024-06-28] MEDS: PANTOPRAZOLE INJ 40 MG VIAL IVP (08:37)
[2024-06-28] MEDS: clonazePAM 0.5 MG TABLET 2 MG PO ×3 (09:54→21:40)
[2024-06-28 10:26] LABS: Base Excess 6 (-3-3); HCO3 33 mEq/L (20-26); Inspired Oxygen, FIO2 50 %; O2 Saturation 95 % (91-98); PCO2 64 mmHg (32.0-48.0); PO2 76 mmHg (83-108); pH, Arterial 7.32 (7.35-7.45)
[2024-06-28 10:29] LABS: Allen Test Not Performed; Puncture Site Right Radial
[2024-06-28] MEDS: RINGERS LACTATED 500 ML 500 ML 999 ML IV (11:30)
--- NOTE | 2024-06-28 13:25 | PC.SS ---
Family meeting conducted with patient's mother (Rina), sister (Rina) and sister (Francesca) to discuss discharge planning. QA SOFTWARE TESTER informed by medical decision maker, Francesca Brayden ; that family decision is for the patient to transition to LTAC. QA SOFTWARE TESTER inquired if family had preferred LTAC facility. No preferred LTAC identified. QA SOFTWARE TESTER informed family that LTAC placement would be initiated once patient is medically cleared for transport. Family acknowledged need for the patient to be medically stable for transport. QA SOFTWARE TESTER informed family that LTAC placement typically 30 day duration, stay can be extended if LTAC feels it is necessary. QA SOFTWARE TESTER to follow up with command and control officer to obtain time frame when patient will be stable for LTAC placement.
--- NOTE | 2024-06-28 13:27 | ESPR_ITS ---
Documentation for date of: 06/28/24 Subjective Subjective Interval history: This is a 39-year-old male who presented to the ER on 27 May. Initially he presented for shortness of breath cough and general malaise. Apparently he had been feeling unwell for the last 2 to 3 weeks. He did have some nonproductive cough. Chest x-ray showed bilateral diffuse infiltrates and the medicine team was contacted. He was admitted to the floor and placed on high flow nasal cannula initially at 100% FiO2 and started on antibiotics. He was started on fluconazole as well as Levaquin given that there was a high suspicion for underlying cocci pneumonia. He has had 2 rapid responses over the last 48 hours due to hypoxia and desatting. The patient is able to tolerate minimal movements prior to desatting. Today the ICU is consulted for further evaluation. The patient is currently on 80% FiO2 he is awake alert and oriented. He states that he has shortness of breath however minimal cough. He does complain of some upper abdominal/lower rib pain which he attributes to his recent cough. He denies any chest pain. Does note that he has had some night sweats and fever over the last several days. There has been no significant improvement since arrival 3 days ago. His respiratory status remains unchanged if not slightly worse. He is currently on isolation with airborne precautions behind a closed door. At this point in time due to an abundance of caution as well as closer observation and monitoring we will transfer to the ICU for ongoing management of his acute hypoxic respiratory failure. I did discuss with the patient the probable need for intubation in the near future. He is okay with intubation 05/31- no acute overnight events, decrease in FiO2 needs, feels better with less WOB today, afebrile, 06/05-patient had been returned to the floor where initially he did well. Apparently over the last 24 to 36 hours he has had an increase in FiO2 requirements with a rapid response called last night. Rapid response called again this morning. Patient stated that he felt tired and unable to keep up. He is on 100% FiO2. He desats with minimal exertion. The decision was made to bring him to the ICU for intubation. This was discussed with the patient while he was awake and his family as well. 06/06- overnight pt remained on NMB, versed/prop/fent. brisk UOP >100cc/hr , afebrile, labs this AM showed a K of 7.8 for which he received insulin/Ca/D50/kayexolate 06/07-patient underwent dialysis yesterday for refractory hyperkalemia, he remains on deep sedation however off of propofol and off of paralytic. Continues with a good urinary output. Afebrile, have been able to come down on his FiO2 however persistent bilateral infiltrates severe on exam without conclusive underlying etiology as of this point in time. 06/08-no acute overnight events, this a.m. attempted to decrease sedation however patient became agitated and desatted. Required increased to 100% FiO2. When patient was suctioned blood was returned from the ET tube. Patient required paralytic and bagging in order to improve his sats. 06/23-has had a prolonged hospital course thus far. Was unable to be weaned from the vent. He was scheduled for tracheostomy today which took place with Dr Ryan. His Versed drip was stopped today. He remains on propofol and fentanyl. He is on multiple p.o. medications for severe agitation. Net negative over the last 24 hours however net positive since hospital stay. Afebrile 06/24- s/p trach yesterday, scheduled for PEG today, afebrile, vent dysynchrony overnight reason for which his fent was increased, off of prop. good UOP, afebrile 06/25- no acute overnight evetns, s/p PEG yesterday, afebrile, good UOP, intermittent episodes of tachypnea, attempting to wean fent off 06/26-off of fentanyl, yesterday spiked a fever of 101. Blood cultures were sent. No other acute overnight events 06/27- overnight became hypotensive receiving 2lts of IVF and then requiring vasopressors. He is clammy and diaphoretic today, good UOP 06/28-overnight patient appears to have come off of vasopressors the BP is currently low normal. Continues to have low-grade temp. It was found overnight that the patient's narcotics had fallen off of his med rec therefore some of his symptoms may have been related to withdrawal. His meds were reinstated. He was very tachycardic overnight. Critical Care Note Critical care time (min.): 38 Exam Vital Signs Temp Pulse Resp BP Pulse Ox O2 Del Method O2 Flow Rate 103.9 F H 128 H 28 H 98/54 L 95 Mechanical Ventilation 40 06/28/24 08:05 06/28/24 10:11 06/28/24 08:00 06/28/24 10:11 06/28/24 10:11 06/27/24 12:34 06/09/24 12:16 FiO2 50 06/28/24 10:11 Narrative Exam General-chronically ill-appearing, normal body habitus, trached HEENT-normocephalic, atraumatic, temporal muscle wasting, oral mucosa is hydrated, abrasions are healing, trach in place, sclera anicteric, pupils reactive Chest-lungs diminished with coarse breath sounds, heart regular rhythmic, tachycardic, tachypneic Abdomen-soft, nontender, bowel sounds present, no rebound or guarding, PEG in place Extremities-no edema lower extremities, pulses palpable, no clubbing or cyanosis, no mottling, healing of blisters on right upper extremity Vent AC/VC Physical Exam Completion Physical Exam Complete?: Yes Objective - Tongue Stitcher Labs 06/28/24 05:27 06/28/24 05:27 Labs: Laboratory Results - last 24 hr 06/27/24 06/28/24 06/28/24 14:00 04:24 05:27 WBC 10.4 D RBC 3.56 L Hgb 8.5 L Hct 28.7 L MCV 81 MCH 23.9 L MCHC 29.6 L RDW Std Deviation 74.9 H Plt Count 327 D Neut % (Auto) 77 Lymph % (Auto) 9 L [place] % (Auto) 6 Eos % (Auto) 6 Baso % (Auto) 0 Neut # (Auto) 8.0 H Lymph # (Auto) 1.0 [place] # (Auto) 0.7 Eos # (Auto) 0.6 H Baso # (Auto) 0.0 Immature Gran # (Auto) 0.11 H Absolute Nucleated RBC 0.02 H Immature Gran % 1 H Nucleated RBC % 0 APTT 120.9 H* D Puncture Site Right Radial ABG pH 7.27 L D ABG pCO2 72 H* D ABG pO2 71 L D ABG HCO3 33 H ABG O2 Saturation 93 ABG Base Excess 5 H FiO2 55 Sodium 133 L Potassium 4.7 D Chloride 97 L Carbon Dioxide 33.1 H Anion Gap 3 L BUN 19 Creatinine 0.8 Estim Creat Clear Calc 113.0 eGFR > 60 BUN/Creatinine Ratio 24 H Glucose 119 H Calculated Osmolality 269 L Calcium 7.6 L Corrected Calcium 8.4 L Phosphorus 2.9 Magnesium 2.0 Total Bilirubin 0.2 L AST 107 H ALT 118 H Alkaline Phosphatase 201 H Total Protein 5.9 Albumin 3.0 L Globulin 2.9 Albumin/Globulin Ratio 1.0 L Ur Collection Type Catheter Urine Color Yellow Urine Clarity Clear Urine pH 6.5 Ur Specific [place] 1.011 Urine Protein 1+ A Urine Glucose (UA) Negative Urine Ketones Negative Urine Blood Negative Urine Nitrite Negative Urine Bilirubin Negative Urine Urobilinogen (Auto) 3.0 Ur Leukocyte Esterase Negative Urine RBC 1 Urine WBC 1 Ur Squamous Epith Cells < 1 Urine Bacteria None 06/28/24 06/28/24 06:22 10:18 WBC RBC Hgb Hct MCV MCH MCHC RDW Std Deviation Plt Count Neut % (Auto) Lymph % (Auto) [place] % (Auto) Eos % (Auto) Baso % (Auto) Neut # (Auto) Lymph # (Auto) [place] # (Auto) Eos # (Auto) Baso # (Auto) Immature Gran # (Auto) Absolute Nucleated RBC Immature Gran % Nucleated RBC % APTT Puncture Site Site Not Noted Right Radial ABG pH 7.22 L 7.32 L D ABG pCO2 83 H* D 64 H D ABG pO2 82 L 76 L ABG HCO3 34 H 33 H ABG O2 Saturation 95 95 ABG Base Excess 4 H 6 H FiO2 55 50 Sodium Potassium Chloride Carbon Dioxide Anion Gap BUN Creatinine Estim Creat Clear Calc eGFR BUN/Creatinine Ratio Glucose Calculated Osmolality Calcium Corrected Calcium Phosphorus Magnesium Total Bilirubin AST ALT Alkaline Phosphatase Total Protein Albumin Globulin Albumin/Globulin Ratio Ur Collection Type Urine Color Urine Clarity Urine pH Ur Specific [place] Urine Protein Urine Glucose (UA) Urine Ketones Urine Blood Urine Nitrite Urine Bilirubin Urine Urobilinogen (Auto) Ur Leukocyte Esterase Urine RBC Urine WBC Ur Squamous Epith Cells Urine Bacteria Assessment & Plan Problem List (1) Acute respiratory failure with hypoxia: Status: Acute Additional Assessment Additional Assessment: In brief this is a 39y M admitted for SOB and acute hypoxic resp failure with b/l PNA. a/p NEWS CORRESPONDENT Agitation/ acute encephalopathy-patient required multiple IV drips for sedation and vent compliance. He was started on p.o. Seroquel and phenobarbital. He is also on Klonopin and oxycodone. Will continue to actively wean his IV drips -Meds reinstated overnight - remains intermittently agitated but profoundly encephalopathic -EEG still pending -MRI did not show any significant injury or lesions CV Septic shock-overnight patient became hypotensive once more and spiked a fever. Blood cultures were obtained. Chest x-ray was obtained. He was given 2 L of IV fluids however still remained hypotensive and therefore Levophed was initiated. He has been started on broad-spectrum antibiotics with meropenem and linezolid. MRSA screen is sent once more. Obtaining a sputum culture and a urine -Currently his shock state appears to have resolved once more -He is off of vasopressors -Cultures have not resulted in any organisms thus far Resp Acute hypoxic resp failure- s/p trach 06/23 - unable to ween 2/2 mentation/agitation -Patient with some respiratory acidosis overnight -Vent adjustments made and some improvement PCP PNA- tx with bactrim and steroids - improved - Bactrim DS for PCP proph to be continued ARDS- improved with less FiO2 needs Renal HypoNa- 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 monitor - mild WILL- resolved HypoPhos-resolved Hypokalemia-resolved GI Transaminitis- Hep viral panel is neg, - US shows some mild hepatomegaly - probable cholestasis - trending down - doing well GI proph- PPI Endo Hypoglycemia-resolved HyperTrig- may be 2/2 prop -> stopped yesterday - recheck in a few days Heme Microcytic Anemia-iron deficiency anemia -Slow drift downwards with hemoglobin of 7 today -Transfuse for hemoglobin less than 7 -on p.o. iron - improved #s today - doing well DVT right upper extremity -heparin drip ID PNA-secondary to PCP VAP - grew out VRE and staph hemolyticus on 06/09 - seen by ID and recs noted HIV/ AIDS- on HAART tx -> fu with ID - JAYME proph if CD4 <50 case d/w ICU team labs, imaging, records reviewed ~38ccmin required for eval, exam, review, intervention , discussion and formulation of POC for this critically ill pt with resp failure at high risk for further and ongoing decompensation Provider Notation Provider Notation: Although this document has been carefully reviewed, there may still be some phonetic and other typographical errors. These errors are purely grammatical due to imperfections in the software program and should not be construed in any way to compromise the substance of the patient's medical care during this visit. Thank you for the opportunity and privilege in assisting you with this patient's care and management.
--- NOTE | 2024-06-28 13:31 | PC.SS ---
FEATHER SHAPER informed by grooving machine operator that patient might be medically stable for LTAC placement in approximately 1 week. FEATHER SHAPER updated patient's family.
--- NOTE | 2024-06-28 13:32 | PC.SS ---
CLINICAL EVALUATOR confirmed that patient does not require TB test for LTAC placement. TB test completed on 06-07-24. CLINICAL EVALUATOR updated ICU resident.
[2024-06-28] MEDS: CALCIUM CARBONATE 600 MG TABLET GT (13:35)
[2024-06-28] MEDS: PHENOBARBITAL ELIX 20 MG/5 ML 90 MG GT ×2 (13:45→21:43)
--- NOTE | 2024-06-28 14:42 | ESPR_ITS ---
Documentation for date of: 06/28/24 Subjective Subjective Interval history: 06/25/2024: The patient was examined and evaluated at the bedside this morning. Fentanyl was weaned off this morning. Patient is mechanically ventilated, and there was mild increased work of breathing. Heart rate in 120s to 130s, RR 30- 40, saturating 88 to 95% on FiO2 45%. Versed 1 Mg x 1 was given. Physical exam was significant for increased work of breathing with bilateral rhonchi, lower lips with mild and present, right arm with ruptured and crusting blisters and mild bleeding from tracheostomy tube insertion site. We added Seroquel 50 Mg x 1 and changed the dose of Seroquel to 100 Mg twice daily. We will resume the heparin drip for right upper extremity DVT. Prednisone was tapered down to 10 Mg daily. Labs are significant for hemoglobin is a stable at 8.6. Potassium 3.6, magnesium 1.6, phosphorus 1.8, triglyceride trended down to 305, and sodium 133. ABG revealed pH 7.46, pCO2 53, pO2 66 and bicarb 38. We will observe the patient and if his RR is in 30s, we will downgrade this patient to telemetry unit. 06/26/2024: The patient was examined and evaluated at the bedside this morning. Patient is off of any sedatives or pressor support. Patient is mechanically ventilated through tracheostomy tube. The patient had 1 episode of fever overnight, and blood culture is pending. His heart rate has been in the range of 120s to 130s with RR between 28-36, saturating 92% on FiO2 50%. The patient received 2 mg IV hydromorphone x 1. His hemoglobin has been stable at 8.9, we will continue with oral ferrous sulfate 325 Mg daily, ABG revealed pH 7.46, pCO2 43, pO2 58 and bicarb 31. He received 1 dose of Diamox 500 Mg IV, sodium 130, potassium 3.5 and Veltassa was discontinued, phosphorus was 1.4 and we will repeat it further. The patient will be downgraded to telemetry unit we will continue with enteral sedatives phenobarbital 90 Mg 3 times daily, clonazepam 2 mg 3 times daily, oxycodone 10 mg 3 times daily and Seroquel 100 Mg twice daily. His sedatives will be continued for 2 weeks at this point and after that the plan is to taper down the sedatives. We will continue with HAART, micafungin until fungal culture is negative and continue with Bactrim DS daily for PCP pneumonia prophylaxis. 06/27/2024: Patient seen and examined in bedside in the ICU. Overnight patient developed hypotension, tachycardia, tachypnea, fever, was scheduled for downgrade but was readmitted to ICU for septic shock requiring pressors. Patient is mechanically ventilated via trach tube. New blood cultures, sputum cultures, urine cultures collected. Patient started on linezolid and meropenem. Continue enteral sedation. Repleted potassium and phosphorus. 06/28/2024: The patient was examined and evaluated at the bedside this morning. He continues to be mechanically ventilated through tracheostomy tube. Overnight patient did not had any fever. His urine output was about 3 L and he is negative by about 850 cc. His heart rate was in 150's, that trended down to 130s, further trended down to 100s. This morning ABG was significant for pH of 7.27 that trended down to pH of 7.2 with pCO2 of 72 and 83 respectively. Tidal volume was increased to 450 cc, and later ABG revealed pH 7.32 with pCO2 64. Brain MRI done yesterday was significant only for bilateral mastoiditis. EEG results pending. Blood cultures has been negative for 24 hours, Dr Hope was informed about restarting the patient on linezolid and meropenem, and he recommended continuing steroid for longer duration. We will continue with internal sedation. His corrected calcium was 8.4 and was started on oral calcium carbonate. We will follow-up on blood culture results and narrow down antibiotics as needed. Exam Vital Signs Temp Pulse Resp BP Pulse Ox O2 Del Method O2 Flow Rate 103 F H 103 H 28 H 97/54 L 98 Mechanical Ventilation 40 06/28/24 09:05 06/28/24 14:35 06/28/24 08:00 06/28/24 14:35 06/28/24 14:35 06/27/24 12:34 06/09/24 12:16 FiO2 40 06/28/24 14:35 Narrative Exam GEN: Critically ill, not acutely distressed, sedated and mechanically ventilated. Neuro: Deferred due to sedation. HEENT: NCAT, tracheostomy tube on appropriate position, mild abrasion over lower lips, improving. CVS: Mildly tachycardic, no M/R/G. No JVD Respi: Mechanically ventilated, b/l breath sounds heard, coarse, no wheezing/crackles. ABD: Soft, no grimace to palpation, bowel sounds present in all 4 quadrants, PEG tube in appropriate place Skin: warm, dry and intact. Extremities: Pulses 2+ in all extremities, BUE edema, ruptured vesicles 1-2 cm on the rt forearm surface that have been healing. Objective Labs 06/28/24 05:27 06/28/24 05:27 Labs: Laboratory Results - last 24 hr 06/27/24 06/28/24 06/28/24 14:00 04:24 05:27 WBC 10.4 D RBC 3.56 L Hgb 8.5 L Hct 28.7 L MCV 81 MCH 23.9 L MCHC 29.6 L RDW Std Deviation 74.9 H Plt Count 327 D Neut % (Auto) 77 Lymph % (Auto) 9 L [place] % (Auto) 6 Eos % (Auto) 6 Baso % (Auto) 0 Neut # (Auto) 8.0 H Lymph # (Auto) 1.0 [place] # (Auto) 0.7 Eos # (Auto) 0.6 H Baso # (Auto) 0.0 Immature Gran # (Auto) 0.11 H Absolute Nucleated RBC 0.02 H Immature Gran % 1 H Nucleated RBC % 0 APTT 120.9 H* D Puncture Site Right Radial ABG pH 7.27 L D ABG pCO2 72 H* D ABG pO2 71 L D ABG HCO3 33 H ABG O2 Saturation 93 ABG Base Excess 5 H FiO2 55 Sodium 133 L Potassium 4.7 D Chloride 97 L Carbon Dioxide 33.1 H Anion Gap 3 L BUN 19 Creatinine 0.8 Estim Creat Clear Calc 113.0 eGFR > 60 BUN/Creatinine Ratio 24 H Glucose 119 H Calculated Osmolality 269 L Calcium 7.6 L Corrected Calcium 8.4 L Phosphorus 2.9 Magnesium 2.0 Total Bilirubin 0.2 L AST 107 H ALT 118 H Alkaline Phosphatase 201 H Total Protein 5.9 Albumin 3.0 L Globulin 2.9 Albumin/Globulin Ratio 1.0 L Ur Collection Type Catheter Urine Color Yellow Urine Clarity Clear Urine pH 6.5 Ur Specific [place] 1.011 Urine Protein 1+ A Urine Glucose (UA) Negative Urine Ketones Negative Urine Blood Negative Urine Nitrite Negative Urine Bilirubin Negative Urine Urobilinogen (Auto) 3.0 Ur Leukocyte Esterase Negative Urine RBC 1 Urine WBC 1 Ur Squamous Epith Cells < 1 Urine Bacteria None 06/28/24 06/28/24 06:22 10:18 WBC RBC Hgb Hct MCV MCH MCHC RDW Std Deviation Plt Count Neut % (Auto) Lymph % (Auto) [place] % (Auto) Eos % (Auto) Baso % (Auto) Neut # (Auto) Lymph # (Auto) [place] # (Auto) Eos # (Auto) Baso # (Auto) Immature Gran # (Auto) Absolute Nucleated RBC Immature Gran % Nucleated RBC % APTT Puncture Site Site Not Noted Right Radial ABG pH 7.22 L 7.32 L D ABG pCO2 83 H* D 64 H D ABG pO2 82 L 76 L ABG HCO3 34 H 33 H ABG O2 Saturation 95 95 ABG Base Excess 4 H 6 H FiO2 55 50 Sodium Potassium Chloride Carbon Dioxide Anion Gap BUN Creatinine Estim Creat Clear Calc eGFR BUN/Creatinine Ratio Glucose Calculated Osmolality Calcium Corrected Calcium Phosphorus Magnesium Total Bilirubin AST ALT Alkaline Phosphatase Total Protein Albumin Globulin Albumin/Globulin Ratio Ur Collection Type Urine Color Urine Clarity Urine pH Ur Specific [place] Urine Protein Urine Glucose (UA) Urine Ketones Urine Blood Urine Nitrite Urine Bilirubin Urine Urobilinogen (Auto) Ur Leukocyte Esterase Urine RBC Urine WBC Ur Squamous Epith Cells Urine Bacteria ABG Interpretation ABG results: 05/27/24 05/29/24 05/29/24 23:37 10:44 22:08 ABG pH 7.51 H 7.50 H 7.48 H ABG pCO2 28 L 32 32 ABG pO2 75 L 79 L 145 H D ABG HCO3 23 25 24 ABG O2 Saturation 96 95 98 ABG Base Excess 0 2 1 05/30/24 05/31/24 06/04/24 08:45 04:54 02:10 ABG pH 7.47 H 7.45 7.45 ABG pCO2 35 38 36 ABG pO2 86 D 82 L 139 H ABG HCO3 26 26 25 ABG O2 Saturation 97 96 98 ABG Base Excess 2 2 1 06/04/24 06/05/24 06/05/24 18:16 11:36 12:59 ABG pH 7.44 7.11 L* D 7.20 L ABG pCO2 36 94 H* D 68 H D ABG pO2 80 L D 150 H D 121 H D ABG HCO3 24 30 H 26 ABG O2 Saturation 94 97 97 ABG Base Excess 0 -2 -3 06/05/24 06/06/24 06/06/24 19:25 04:13 15:27 ABG pH 7.22 L 7.27 L 7.30 L ABG pCO2 64 H 57 H 60 H ABG pO2 122 H 153 H D 74 L D ABG HCO3 26 26 29 H ABG O2 Saturation 97 99 H 92 ABG Base Excess -3 -2 2 06/07/24 06/07/24 06/08/24 03:55 09:59 04:20 ABG pH 7.41 D 7.43 7.45 ABG pCO2 56 H 55 H 50 H ABG pO2 293 H D 78 L D 75 L ABG HCO3 36 H 37 H 35 H ABG O2 Saturation 99 H 95 94 ABG Base Excess 10 H 11 H 10 H 06/08/24 06/08/24 06/08/24 11:05 11:50 13:18 ABG pH 7.17 L* D 7.10 L* 7.15 L* ABG pCO2 95 H* D 115 H* D 88 H* D ABG pO2 89 75 L 72 L ABG HCO3 34 H 36 H 31 H ABG O2 Saturation 92 84 L 85 L ABG Base Excess 3 4 H 0 06/08/24 06/09/24 06/09/24 17:02 01:33 03:15 ABG pH 7.18 L* 7.22 L 7.27 L ABG pCO2 50 H D 91 H* D 82 H* ABG pO2 82 L 105 D 86 ABG HCO3 19 L 37 H 38 H ABG O2 Saturation 93 97 95 ABG Base Excess -9 L 7 H 9 H 06/09/24 06/09/24 06/10/24 05:08 12:52 04:40 ABG pH 7.31 L 7.33 L 7.30 L ABG pCO2 75 H* 57 H D 78 H* D ABG pO2 97 158 H D 65 L D ABG HCO3 38 H 30 H 38 H ABG O2 Saturation 97 99 H 90 L ABG Base Excess 10 H 3 9 H 06/10/24 06/11/24 06/12/24 09:40 04:19 04:15 ABG pH 7.27 L 7.35 7.48 H D ABG pCO2 88 H* D 86 H* 63 H D ABG pO2 65 L 70 L 76 L ABG HCO3 40 H 48 H 47 H ABG O2 Saturation 89 L 93 95 ABG Base Excess 10 H 19 H 21 H 06/13/24 06/14/24 06/15/24 07:22 04:32 03:45 ABG pH 7.46 H 7.48 H 7.46 H ABG pCO2 56 H 40 D 37 ABG pO2 80 L 64 L 71 L ABG HCO3 39 H 30 H 27 H ABG O2 Saturation 95 92 94 ABG Base Excess 13 H 6 H 3 06/15/24 06/15/24 06/15/24 10:17 12:20 14:20 ABG pH 7.01 L* D 7.00 L* 7.03 L* ABG pCO2 122 H* D 130 H* 125 H* ABG pO2 91 D 88 82 L ABG HCO3 31 H 32 H 33 H ABG O2 Saturation 88 L 88 L 87 L ABG Base Excess -3 -2 -1 06/15/24 06/15/24 06/16/24 15:55 20:39 00:35 ABG pH 7.03 L* 7.08 L* 7.10 L* ABG pCO2 121 H* 116 H* 118 H* ABG pO2 99 117 H 102 ABG HCO3 32 H 34 H 37 H ABG O2 Saturation 93 97 96 ABG Base Excess -1 2 4 H 06/16/24 06/16/24 06/17/24 04:45 08:55 05:06 ABG pH 7.17 L* 7.28 L D 7.33 L ABG pCO2 112 H* 88 H* D 96 H* ABG pO2 155 H D 98 D 126 H D ABG HCO3 41 H 41 H 50 H ABG O2 Saturation 99 H 98 99 H ABG Base Excess 9 H 12 H 21 H 06/17/24 06/17/24 06/18/24 10:58 13:55 04:16 ABG pH 7.29 L 7.29 L 7.33 L ABG pCO2 106 H* D 106 H* 86 H* D ABG pO2 58 L* D 61 L 77 L ABG HCO3 51 H 51 H 45 H ABG O2 Saturation 87 L 88 L 95 ABG Base Excess 21 H 21 H 17 H 06/19/24 06/20/24 06/21/24 04:18 04:49 04:06 ABG pH 7.42 7.36 7.44 ABG pCO2 63 H D 74 H* D 61 H D ABG pO2 66 L 55 L* 202 H D ABG HCO3 41 H 42 H 42 H ABG O2 Saturation 93 87 L 100 H ABG Base Excess 15 H 14 H 16 H 06/22/24 06/23/24 06/24/24 04:18 04:29 04:25 ABG pH 7.45 7.46 H 7.29 L D ABG pCO2 57 H 53 H 80 H* D ABG pO2 60 L D 99 D 88 ABG HCO3 40 H 38 H 38 H ABG O2 Saturation 91 99 H 96 ABG Base Excess 14 H 13 H 9 H 06/24/24 06/25/24 06/25/24 08:50 05:13 11:02 ABG pH 7.40 D 7.46 H Cancelled ABG pCO2 61 H D 53 H Cancelled ABG pO2 110 H D 66 L D Cancelled ABG HCO3 38 H 38 H Cancelled ABG O2 Saturation 99 H 94 Cancelled ABG Base Excess 12 H 13 H Cancelled 06/25/24 06/26/24 06/26/24 15:53 04:13 11:40 ABG pH 7.39 7.41 7.46 H ABG pCO2 53 H 48 43 ABG pO2 55 L* 58 L* 58 L* ABG HCO3 32 H 30 H 31 H ABG O2 Saturation 86 L 89 L 92 ABG Base Excess 6 H 5 H 6 H 06/27/24 06/28/24 06/28/24 04:17 04:24 06:22 ABG pH 7.48 H 7.27 L D 7.22 L ABG pCO2 39 72 H* D 83 H* D ABG pO2 49 L* 71 L D 82 L ABG HCO3 29 H 33 H 34 H ABG O2 Saturation 87 L 93 95 ABG Base Excess 5 H 5 H 4 H 06/28/24 10:18 ABG pH 7.32 L D ABG pCO2 64 H D ABG pO2 76 L ABG HCO3 33 H ABG O2 Saturation 95 ABG Base Excess 6 H Quality Measures Quality Measures sepsis Current suspected stage: sepsis Possible source: pulmonary, GI tract/intra-abdominal, genitourinary and skin/soft tissue Blood cultures ordered: yes Antibiotic ordered: Yes Assessment & Plan Assessment Current Active Medications: Generic Name Dose Route Start Last Admin Trade Name Freq PRN Reason Stop Dose Admin Acetaminophen 650 mg 06/26/24 15:16 06/28/24 08:05 Acetaminophen Munira 325 Mg/10 Ml Udc GT 07/26/24 15:15 650 mg Q4HR PRN Administration Pain Or Fever > 100.3 Albuterol/Ipratropium 3 ml 06/05/24 11:40 06/25/24 08:58 Albuterol/Ipratropium (Duoneb) Rt Munira 3 Ml Nebu INH 07/05/24 14:59 3 ml Q4HRRT PRN Administration Wheezing Artificial Tears 1 drop 06/18/24 12:00 06/28/24 13:36 Artificial Tears 225 Drop/15 Ml Btl BOTH EYES 07/18/24 11:59 1 drop QID JUAN JOSE Administration Calcium Carbonate 600 mg 06/28/24 13:00 06/28/24 13:35 Calcium Carbonate 600 Mg Tablet GT 07/28/24 12:59 600 mg QDAY@1300 JUAN JOSE Administration Clonazepam 2 mg 06/28/24 08:45 06/28/24 13:36 Clonazepam 0.5 Mg Tablet PO 07/19/24 08:44 2 mg TID JUAN JOSE Administration Dextrose 25 ml 06/06/24 08:20 Dextrose 50%-Water Inj 50 Ml Syringe IV 07/06/24 08:19 Q15MIN PRN BG 50-70 responsive npo pt Dextrose 50 ml 06/06/24 08:20 Dextrose 50%-Water Inj 50 Ml Syringe IV 07/06/24 08:19 Q15MIN PRN BG <50 OR BG <70 & pt unresponsive Docusate Sodium 100 mg 06/25/24 09:13 Docusate Sod Liqd 100 Mg/10 Ml Udc PO 07/22/24 08:59 BID PRN Constipation Protocol Emtricitabine/Tenofovir 1 tab 06/16/24 12:30 06/28/24 08:07 Emtricitabine 200 Mg/Tenofovir 300 Mg Tab (Non-Form) PO 07/16/24 12:29 1 tab QDAY JUAN JOSE Administration Ferrous Sulfate 325 mg 06/23/24 10:00 06/28/24 08:06 Ferrous Sulf 325 Mg Tablet PO 07/23/24 09:59 325 mg QDAY JUAN JOSE Administration Glucagon 1 mg 06/06/24 08:20 Glucagon Inj 1 Mg Vial IM Q15MIN PRN BG <70, and no IV access Heparin Sodium/Dextrose 25,000 unit in 250 mls @ 13.122 mls/hr 06/25/24 16:15 06/28/24 06:54 Heparin In D5w Ivpb IV 06/29/24 14:44 Infused .Q19H4M JUAN JOSE Titration Protocol 18 UNITS/KG/HR Norepinephrine/Dextrose 8 mg in 250 mls @ 6.722 mls/hr 06/27/24 00:44 06/27/24 21:00 Levophed In D5w 8mg/250ml IV 07/27/24 00:43 0 mcg/kg/min .Q24H PRN 0 mls/hr PER PROTOCOL Titration Protocol 0.05 MCG/KG/MIN Linezolid 600 mg in 300 mls @ 300 mls/hr 06/27/24 09:00 06/28/24 08:08 Zyvox Ivpb IV 07/04/24 08:59 300 mls/hr Q12HR JUAN JOSE Administration Meropenem 1,000 mg/ Sodium 50 mls @ 100 mls/hr 06/27/24 08:45 06/28/24 05:10 Chloride IV 07/04/24 08:44 100 mls/hr Q8HR JUAN JOSE Administration Lorazepam 2 mg 06/27/24 22:20 06/28/24 03:54 Lorazepam 2 Mg/Ml Vial IVP 07/02/24 22:19 2 mg Q3H PRN Administration ANXIETY Ondansetron HCl 4 mg 05/29/24 21:51 06/04/24 17:44 Ondansetron Inj 2 Mg/Ml Inj 2 Ml IV 06/28/24 21:50 4 mg Q6HR PRN Administration NAUSEA OR VOMITING Protocol Oxycodone HCl 10 mg 06/28/24 00:17 06/28/24 13:42 Oxycodone Hcl 5 Mg Ir Tab PO 07/03/24 00:16 10 mg TID JUAN JOSE Administration Pantoprazole Sodium 40 mg 06/06/24 09:00 06/28/24 08:37 Pantoprazole Inj 40 Mg Vial IVP 07/06/24 08:59 40 mg QDAY JUAN JOSE Administration Phenobarbital 90 mg 06/22/24 14:00 06/28/24 13:45 Phenobarbital Elix 20 Mg/5 Ml Udc GT 07/18/24 13:59 90 mg TID JUAN JOSE Administration Potassium Phos/Sodium Phos 1 packet 06/27/24 09:00 06/28/24 13:42 [facility] Mbdb 1 Packet (1.5 Gm) PO 07/27/24 08:59 1 packet TID JUAN JOSE Administration Prednisone 10 mg 06/26/24 09:00 06/28/24 08:06 Prednisone 5 Mg Tablet PO 07/26/24 08:59 10 mg QDAY JUAN JOSE Administration Quetiapine Fumarate 100 mg 06/28/24 21:00 Quetiapine Fumarate 100 Mg Tablet PO 07/25/24 20:59 BID JUAN JOSE Raltegravir 400 mg 06/23/24 21:00 06/28/24 08:08 Raltegravir 400 Mg Tablet NG 06/30/24 20:59 400 mg BID JUAN JOSE Administration Trimethoprim/Sulfamethoxazole 20 ml 06/23/24 09:00 06/28/24 08:07 Trimethoprim/Sulfa Susp 1 Ml PO 06/22/25 12:00 20 ml QDAY JUAN JOSE Administration Plan 39-year-old male patient with no PMHx who initially presented to [facility] on 05/27/[facility]24 with a chief complaint of shortness of breath and cough, with associated chills, body aches, generalized weakness, fever, and night sweats beginning weeks prior but progressively worsening over a few days is currently being treated for acute hypoxic respiratory failure secondary to PCP pneumonia that was complicated by ventilator associated pneumonia. Patient is currently on tracheostomy tube and mechanically ventilated. 06/28/2024: The patient was examined and evaluated at the bedside this morning. He continues to be mechanically ventilated through tracheostomy tube. Overnight patient did not had any fever. His urine output was about 3 L and he is negative by about 850 cc. His heart rate was in 150's, that trended down to 130s, further trended down to 100s. This morning ABG was significant for pH of 7.27 that trended down to pH of 7.2 with pCO2 of 72 and 83 respectively. Tidal volume was increased to 450 cc, and later ABG revealed pH 7.32 with pCO2 64. Brain MRI done yesterday was significant only for bilateral mastoiditis. EEG results pending. Blood cultures has been negative for 24 hours, Dr Hope was informed about restarting the patient on linezolid and meropenem, and he recommended continuing steroid for longer duration. We will continue with internal sedation. His corrected calcium was 8.4 and was started on oral calcium carbonate. We will follow-up on blood culture results and narrow down antibiotics as needed. NEURO Patient is sedated and mechanically ventilated through tracheostomy tube. 06/05/2024 Patient was intubated, sedated, and paralyzed for ARDS. Currently switched IV sedatives to enteral sedatives with phenobarbital 90 Mg 3 times daily, clonazepam 2 Mg 3 times daily and oxycodone 10 Mg 3 times daily. -Continue with oral sedatives for 2 more weeks, and then taper down if tolerated -MRI showed no acute hemorrhage, infarct, mass effect, or midline shift. No findings diagnostic for demyelinating disease. EEG read pending. #Fever, resolved Patient repeat fever overnight along with hypotension, tachypnea, tachycardia. New septic shock. Multiple cultures pending, antibiotics broadened. -Treat underlying condition -Tylenol as needed CARDIO #Right upper extremity DVT. -Doppler US right upper extremity 06/17/24: revealed RUE DVT -On Heparin Drip, can be switched to oral anticoagulants #Sinus tachycardia Tachycardia most likely secondary to respiratory distress and agitation 2/2 AHRF in the setting of tapering down sedatives -Continue to treat the underlying cause #Septic shock, resolved Patient presented with septic shock secondary to severe extensive bilateral pneumonia. After resolution of initial septic shock, patient developed new hypotension, tachycardia, tachypnea, fevers indicated of septic shock. -Pressor support -Linezolid (started 06/27) -Meropenem (started 06/27) -Follow-up blood, urine, sputum cultures PULM #Chronic hypoxic respiratory failure Secondary to #Bilateral pneumocystis jirovecii pneumonia, resolved #Healthcare associated pneumonia, resolved, resolved #Ventilator associated pneumonia, resolved #Chronic respiratory distress syndrome as a consequence of ARDS 2/2 PCP pneumonia #S/P Tracheostomy Patient presented with dyspnea and cough, requiring 4L NC on first ED evaluation, and history of chills, body aches, generalized weakness, fever, and night sweats progressively worsening over the prior weeks. Approx 20-pack year smoking history, occasional marijuana. 06/17/2024 oxygenation and hypercapnia improved, was put in supine position, continued to be paralyzed. On linezolid 600 mg q12h 06/15/24-06/22/24 Plan: -Linezolid (started 06/27) and Meropenum (startd 06/27) -Continue with daily Bactrim -Continue with prednisolone 10 mg daily for at least 7 more days -ABG as needed GI GI prophylaxis: Pantoprazole 40 mg IV qday #Elevated LFTs, improving Likely due to propofol and bactrim. Mildly elevated, liver US 05/30/2024 showed normal gallbladder and hepatomegaly without lesions or evidence of obstructions. Hep panel negative. LFTs downtrended compared to 06/06/24. 06/15/2024 Floyd in LFTs with AST 303, ALT 420, Tbili 1.3, therefore right upper quadrant US ordered, negative for cholecystitis/cholelithiasis, hepatitis panel negative. No obvious changes on physical exam. 06/20/24: LFT AST/ALT/ALP : 99/123/118 Plan: -Continue monitoring #Hypertriglyceridemia, trending down More likely secondary to propofol use -We will repeat lipid panel on 06/30/2024 NEPHRO #Hypophosphatemia, resolved #WILL, resolved #Hyperkalemia---Resolved #Hyperphosphatemia, resolved Plan: -Discontinued Veltassa as potassium has been in the lower end of normal value -Nephrology Dr. Song is following for as-needed dialysis due to hyperkalemia -Maintain euvolemia -Monitor CMP, especially phosphorus -Replete electrolytes as needed. #Mild hyponatremia Secondary to SIADH due to acute hypoxic respiratory failure leading to pulmonary distress -Continue to monitor #NAGMA #Primary Respiratory acidosis mildly compensated by metabolic alkalosis, stable Secondary to increased work of breathing and increased RR 2/2 chronic hypoxic respiratory failure and chronic respiratory distress syndrome in the setting of tapering down of IV sedatives -ABGs revealed pH of 7.46, pCO2 53, pO2 66 and bicarb 38. -ABG on 06/28/2024 revealed pH of 7.32, pCO2 64 and bicarb 33.1. -We will treat the underlying cause HEME #Leukocytosis, resolved Fluctuating WBC. In the setting of likely infection, inflammation, and corticosteroids. Plan: -Treatment of pneumonia as above #Microcytic anemia 2/2 STEPHY and Inflammatory anemia Stable, has not required any transfusions this admission thus far. Clinically no evidence of bleeding. Iron panel shows iron 17, TIBC 262, iron saturation 6, unsaturated iron binding 245. Peripheral blood film confirms microcytic hypochromic anemia with target cells. Also daily lab draws contributing. Plan: -Started on oral ferrous sulfate 325 Mg daily -Monitor H&H. Transfusing for Hgb <7 #Thrombocytosis, resolved Likely reactive. -Continue to monitor ENDO #Hypoglycemia, resolved Blood glucose this morning was 69, likely secondary to increased metabolic acid complicated by stopping enteral feeding -Bolus D50W given -Repeat blood sugar was stable -We will resume enteral feeding after PEG tube placement ID #Bilateral pneumocystis pneumonia #Healthcare associated pneumonia #Ventilator associated pneumonia #PCP pneumonia prophylaxis Negative studies: Cocci IgM and IgG, Hepatitis panel, Syphilis, Legionella, H.flu, N.meningitidis, Strep B, Strep pneumoniae, COVID, RSV, Flu A & B. TB quantiferon GOLD-indeterminate, however 06/05 AFB negative, CMV IgM, cryptococcal antigen negative. G6PD levels came back normal for consideration of dapsone alternative to Bactrim if needed. Patient completed 5 day course of azithromycin, 16 days of Zosyn. See Pulm for timeline of antimicrobial coverage. On 06/27 patient developed new septic shock Plan: -Antibiotcs Bactrim for prevention of PCP pneumonia in the setting of CD4 count of 116 -Linezolid and meropenum restarted on 06/27/2024- -Fungal cultures from BAL pending, follow-up on results -Blood cultures from 06/26/2024 and 06/27/2024 is negative for 24 hours. -Follow up blood, sputum, and urine cultures #AIDS/HIV Patient has Stage 4 HIV, AIDS-defining illness with opportunistic infection. 06/07/2024 Bronchoalveolar lavage cytology shows Pneumocystis jirovecii. Also other fungi, possibly Kassandra. Kassandra is most likely a contaminant. Blood [id number] also positive. 06/08/2024 HIV quant 5.66 million copies. HIV 1 positive confirmed. 06/09/2024 Patient's decision maker, Francesca, was informed of diagnosis due to critical state of patient. Absolute CD4 count 87 and 22% on 06/02. History/risk factors: History of injection anabolic androgenic steroid and testosterone use, possible unclean needles. History of incarceration (unknown time). Tattoos received as a teenager. Has 1 female sexual partner last 5 years, denies others. -Continue HAART: emtricitabine / tenofovir (Truvada) and raltegravir initiated 06/09/24 -Patient is not aware of his diagnosis as he has been intubated and sedated before results returned. Will require complete education and counseling on the disease if his mental status and clinical condition improves. 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 The patient is being downgraded to telemetry unit for further management of chronic hypoxic respiratory failure s/p tracheostomy. DVT prophylaxis: On heparin drip for treatment of right upper extremity DVT GI prophylaxis: Pantoprazole 40 mg IV qday Diet: Tube feeds Nepro [place]: No, condom cath Lines: Peripheral IV, removed rt femoral central line on 06/28/24 Antibiotics: Bactrim, linezolid, meropenum CODE STATUS: FULL CODE Patient plan of care was discussed with the attending physician, Dr. Walsh. Jeff Pacheco MD, PGY2
[2024-06-28] MEDS: FUROSEMIDE INJ 10 MG/ML 4ML VIAL 40 MG IVP (17:11)
[2024-06-28] MEDS: QUEtiapine FUMARATE 100 MG TABLET PO (21:39)
[2024-06-29] VITALS (67 sets, daily range): BP systolic 81–123; BP diastolic 48–74; PULSE 90–153; RESP 0–70; TEMP 36.8–38.2; O2SAT 91–100; BMI 23.3
--- NOTE | 2024-06-29 02:50 | PC.RT ---
unable to collect sputum due to the pt having no secretions
[2024-06-29] MEDS: LORazepam 2 MG/ML VIAL IVP ×2 (03:28→10:16)
[2024-06-29 04:32] LABS: Base Excess 14 (-3-3); HCO3 40 mEq/L (20-26); Inspired Oxygen, FIO2 45 %; O2 Saturation 97 % (91-98); PCO2 63 mmHg (32.0-48.0); PO2 81 mmHg (83-108); pH, Arterial 7.41 (7.35-7.45)
[2024-06-29 04:35] LABS: Allen Test Performed/OK; Puncture Site Left Radial
[2024-06-29] MEDS: MEROPENEM INJ 1,000 MG in SODIUM CHLORIDE 0.9% (P) 50 ML 100 MG IV ×3 (05:39→21:50)
[2024-06-29] MEDS: oxyCODONE HCL 5 MG IR TAB 10 MG PO ×3 (05:40→21:49)
[2024-06-29] MEDS: clonazePAM 0.5 MG TABLET 2 MG PO ×3 (05:40→21:49)
[2024-06-29] MEDS: NAPH,KPH MBDB 1 PACKET (1.5 GM) PO ×2 (05:40→15:07)
[2024-06-29] MEDS: Artificial Tears 225 DROP/15 ML BTL BOTH EYES ×4 (05:41→21:17)
[2024-06-29] MEDS: PHENOBARBITAL ELIX 20 MG/5 ML 90 MG GT ×3 (05:49→21:46)
[2024-06-29 06:21] LABS: Basophils % (Auto) 1 % (0-2.5); Eosinophils # (Auto) 0.7 Thou/mm3 (0.0-0.5); Eosinophils % (Auto) 10 % (0-10); Hematocrit 30.9 % (41.0-53.0); Hemoglobin 9.4 g/dL (13.5-16.0); Immature Granulocytes % (Auto) 1 % (0-0); Immature Granulocytes Auto 0.08 Thou/mm3 (0.00-0.00); Lymphocytes % (Auto) 15 % (10-50); Mean Corpuscular HGB Conc 30.4 g/dl (31.0-37.0); Mean Corpuscular Hemoglobin 24.2 pg (25.0-35.0); Mean Corpuscular Volume 80 fL (80-100); Monocytes # (Auto) 0.5 Thou/mm3 (0.0-0.8); Monocytes % (Auto) 8 % (0-12); Neutrophils # (Auto) 4.5 Thou/mm3 (1.8-7.7); Neutrophils % (Auto) 66 % (37-80); Nucleated Red Blood Cell % 0 /100 WBC (0); Platelet Count 258 Thou/mm3 (140-440); RDW Standard Deviation 73.9 fL (35.1-43.9); Red Blood Count 3.88 Miln/mm3 (4.50-5.90); White Blood Count 6.7 Thou/mm3 (3.8-10.6)
[2024-06-29 06:43] LABS: Alanine Aminotransferase 116 U/L (10-49); Albumin, Serum 2.9 gm/dL (3.5-5.0); Albumin/Globulin Ratio 1.1 (1.2-2.2); Alkaline Phosphatase 179 U/L (46-116); Anion Gap 3 (7-16); Aspartate Amino Transferase 118 U/L (0-34); BUN/Creatinine Ratio 37 Ratio (12-20); Bilirubin,Total 0.3 mg/dL (0.3-1.2); Blood Urea Nitrogen 22 mg/dL (9-23); Calcium 7.8 mg/dL (8.3-10.6); Calcium (Corrected) 8.7 mg/dL (8.5-10.1); Carbon Dioxide 37.9 mMol/L (20.0-31.0); Chloride 92 mMol/L (98-107); Creatinine (Component) 0.6 mg/dL (0.6-1.3); Estimated Creatinine Clearance 150.6 mL/min (>60); Globulin 2.7 gm/dL (2.3-3.5); Glucose 117 mg/dL (74-106); Magnesium 1.8 mg/dL (1.6-2.6); Osmolality,Calculated 270 (275-295); Phosphorous 1.5 mg/dL (2.4-5.1); Potassium 4.3 mMol/L (3.4-5.1); Sodium 133 mMol/L (136-145); Total Protein 5.6 gm/dL (5.7-8.2); Triglycerides 183 mg/dL (30-150); eGFR > 60 See Note
[2024-06-29] MEDS: QUEtiapine FUMARATE 100 MG TABLET PO ×2 (08:32→21:16)
[2024-06-29] MEDS: PANTOPRAZOLE INJ 40 MG VIAL IVP (08:32)
[2024-06-29] MEDS: FERROUS SULF 325 MG TABLET PO (08:32)
[2024-06-29] MEDS: LINEZOLID 600 MG IVPB 600 MG/300 ML BAG 300 MG IV ×2 (08:32→21:18)
[2024-06-29] MEDS: predniSONE 5 MG TABLET 10 MG PO (08:32)
[2024-06-29] MEDS: SULFAMETHOXAZOLE PO (08:33)
[2024-06-29] MEDS: TRIMETHOPRIM PO (08:33)
[2024-06-29 08:35] LABS: Lactate (Lactic Acid) 1.6 mMol/L (0.4-2.0)
[2024-06-29] MEDS: EMTRICITABINE 200 MG/TENOFOVIR 300 MG TAB (NON-FORM) 1 TAB PO (08:36)
[2024-06-29] MEDS: RALTEGRAVIR 400 MG TABLET NG ×2 (08:36→19:56)
[2024-06-29] MEDS: FUROSEMIDE INJ 10 MG/ML 4ML VIAL 40 MG IVP (10:13)
--- NOTE | 2024-06-29 11:00 | PD.INTPROG ---
Documentation for date of: 06/29/24 Subjective Subjective Interval history: This is a 39-year-old male who presented to the ER on 27 May. Initially he presented for shortness of breath cough and general malaise. Apparently he had been feeling unwell for the last 2 to 3 weeks. He did have some nonproductive cough. Chest x-ray showed bilateral diffuse infiltrates and the medicine team was contacted. He was admitted to the floor and placed on high flow nasal cannula initially at 100% FiO2 and started on antibiotics. He was started on fluconazole as well as Levaquin given that there was a high suspicion for underlying cocci pneumonia. He has had 2 rapid responses over the last 48 hours due to hypoxia and desatting. The patient is able to tolerate minimal movements prior to desatting. Today the ICU is consulted for further evaluation. The patient is currently on 80% FiO2 he is awake alert and oriented. He states that he has shortness of breath however minimal cough. He does complain of some upper abdominal/lower rib pain which he attributes to his recent cough. He denies any chest pain. Does note that he has had some night sweats and fever over the last several days. There has been no significant improvement since arrival 3 days ago. His respiratory status remains unchanged if not slightly worse. He is currently on isolation with airborne precautions behind a closed door. At this point in time due to an abundance of caution as well as closer observation and monitoring we will transfer to the ICU for ongoing management of his acute hypoxic respiratory failure. I did discuss with the patient the probable need for intubation in the near future. He is okay with intubation 05/31- no acute overnight events, decrease in FiO2 needs, feels better with less WOB today, afebrile, 06/05-patient had been returned to the floor where initially he did well. Apparently over the last 24 to 36 hours he has had an increase in FiO2 requirements with a rapid response called last night. Rapid response called again this morning. Patient stated that he felt tired and unable to keep up. He is on 100% FiO2. He desats with minimal exertion. The decision was made to bring him to the ICU for intubation. This was discussed with the patient while he was awake and his family as well. 06/06- overnight pt remained on NMB, versed/prop/fent. brisk UOP >100cc/hr , afebrile, labs this AM showed a K of 7.8 for which he received insulin/Ca/D50/kayexolate 06/07-patient underwent dialysis yesterday for refractory hyperkalemia, he remains on deep sedation however off of propofol and off of paralytic. Continues with a good urinary output. Afebrile, have been able to come down on his FiO2 however persistent bilateral infiltrates severe on exam without conclusive underlying etiology as of this point in time. 06/08-no acute overnight events, this a.m. attempted to decrease sedation however patient became agitated and desatted. Required increased to 100% FiO2. When patient was suctioned blood was returned from the ET tube. Patient required paralytic and bagging in order to improve his sats. 06/23-has had a prolonged hospital course thus far. Was unable to be weaned from the vent. He was scheduled for tracheostomy today which took place with Dr Ryan. His Versed drip was stopped today. He remains on propofol and fentanyl. He is on multiple p.o. medications for severe agitation. Net negative over the last 24 hours however net positive since hospital stay. Afebrile 06/24- s/p trach yesterday, scheduled for PEG today, afebrile, vent dysynchrony overnight reason for which his fent was increased, off of prop. good UOP, afebrile 06/25- no acute overnight evetns, s/p PEG yesterday, afebrile, good UOP, intermittent episodes of tachypnea, attempting to wean fent off 06/26-off of fentanyl, yesterday spiked a fever of 101. Blood cultures were sent. No other acute overnight events 06/27- overnight became hypotensive receiving 2lts of IVF and then requiring vasopressors. He is clammy and diaphoretic today, good UOP 06/28-overnight patient appears to have come off of vasopressors the BP is currently low normal. Continues to have low-grade temp. It was found overnight that the patient's narcotics had fallen off of his med rec therefore some of his symptoms may have been related to withdrawal. His meds were reinstated. He was very tachycardic overnight. 06/29- no acute overnight events, off pressors, off all drips, Tm 103.9 yesterday morning Critical Care Note Critical care time (min.): 0 Exam Vital Signs Temp Pulse Resp BP Pulse Ox O2 Del Method O2 Flow Rate 98.2 F 139 H 27 H 102/59 L 100 Mechanical Ventilation 40 06/29/24 08:00 06/29/24 10:13 06/29/24 08:00 06/29/24 10:13 06/29/24 09:35 06/27/24 12:34 06/09/24 12:16 FiO2 45 06/29/24 09:35 Narrative Exam Gen- chronically ill appearing, temp musc wasting noted, non responsive to verbal stimuli, HEENT- NC/AT, mucosa hydrated, sclera anicteric, EOMI, trach in place Chest- fine crackles heard at bases, HRRR, tachypneic Abd- s/nt/bs+, PEG in place Ext- edema, pulses palp, no clubbing, no mottling, healing blisters on RUE Physical Exam Completion Physical Exam Complete?: Yes Objective - Dual Hose Cementer Labs 06/29/24 05:30 06/29/24 05:30 Labs: Laboratory Results - last 24 hr 06/29/24 06/29/24 06/29/24 04:21 05:30 08:20 WBC 6.7 RBC 3.88 L Hgb 9.4 L Hct 30.9 L MCV 80 MCH 24.2 L MCHC 30.4 L RDW Std Deviation 73.9 H Plt Count 258 D Neut % (Auto) 66 Lymph % (Auto) 15 [place] % (Auto) 8 Eos % (Auto) 10 Baso % (Auto) 1 Neut # (Auto) 4.5 Lymph # (Auto) 1.0 [place] # (Auto) 0.5 Eos # (Auto) 0.7 H Baso # (Auto) 0.0 Immature Gran # (Auto) 0.08 H Absolute Nucleated RBC 0.00 Immature Gran % 1 H Nucleated RBC % 0 Puncture Site Left Radial ABG pH 7.41 ABG pCO2 63 H ABG pO2 81 L ABG HCO3 40 H ABG O2 Saturation 97 ABG Base Excess 14 H FiO2 45 Sodium 133 L Potassium 4.3 Chloride 92 L Carbon Dioxide 37.9 H Anion Gap 3 L BUN 22 Creatinine 0.6 Estim Creat Clear Calc 150.6 eGFR > 60 BUN/Creatinine Ratio 37 H Glucose 117 H Calculated Osmolality 270 L Lactic Acid 1.6 Calcium 7.8 L Corrected Calcium 8.7 Phosphorus 1.5 L Magnesium 1.8 Total Bilirubin 0.3 AST 118 H ALT 116 H Alkaline Phosphatase 179 H D Total Protein 5.6 L Albumin 2.9 L Globulin 2.7 Albumin/Globulin Ratio 1.1 L Triglycerides 183 H Assessment & Plan Problem List (1) Acute respiratory failure with hypoxia: Status: Acute Additional Assessment Additional Assessment: In brief this is a 39y M admitted for SOB and acute hypoxic resp failure with b/l PNA. a/p [employer] Agitation/ acute encephalopathy-patient required multiple IV drips for sedation and vent compliance. He was started on p.o. Seroquel and phenobarbital. He is also on Klonopin and oxycodone. Will continue to actively wean his IV drips -Meds reinstated - remains intermittently agitated but profoundly encephalopathic -EEG still pending -MRI did not show any significant injury or lesions - no change in mentation CV Septic shock-resolved currently - cont on meropenem and linezolid - Ucx returned with GPC which is likely source - will titrate abx once cx results final Resp Chronic hypoxic resp failure- s/p trach 06/23 - intermittent PSV trials in an attempt to cont to wean from vent - tolerates 2-3 hrs thus far PCP PNA- tx with bactrim and steroids - improved - Bactrim DS for PCP proph to be continued ARDS- improved with less FiO2 needs Renal HypoNa- 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 monitor - mild WILL- resolved HypoPhos-repleted daily - d/w dietary for supplements Hypokalemia-resolved GI Transaminitis- Hep viral panel is neg, - US shows some mild hepatomegaly - probable cholestasis - trending down - doing well GI proph- PPI Endo Hypoglycemia-resolved HyperTrig- may be 2/2 prop -> stopped yesterday - recheck in a few days Heme Microcytic Anemia-iron deficiency anemia - on PO iron - stable DVT right upper extremity -heparin drip ID PNA-secondary to PCP VAP - grew out VRE and staph hemolyticus on 06/09 - seen by ID and recs noted HIV/ AIDS- on HAART tx -> fu with ID - JAYME proph if CD4 <50 UTI- Ucx with GPC -awaiting ID and sensitivities case d/w ICU team stable for downgrade today will need placement labs, imaging, records reviewed ~36ccmin required for eval, exam, review, intervention , discussion and formulation of POC for this critically ill pt with resp failure at high risk for further and ongoing decompensation Provider Notation Provider Notation: Although this document has been carefully reviewed, there may still be some phonetic and other typographical errors. These errors are purely grammatical due to imperfections in the software program and should not be construed in any way to compromise the substance of the patient's medical care during this visit. Thank you for the opportunity and privilege in assisting you with this patient's care and management.
[2024-06-29] MEDS: METOPROLOL TARTRATE INJ 1 MG/ML AMP 5 ML 5 MG IVP ×2 (12:00→17:06)
--- NOTE | 2024-06-29 12:43 | PC.SS ---
Update: Patient remains Trach/PEG. Patient tolerating. No pressors. Patient downgraded to Tele unit.
--- NOTE | 2024-06-29 12:51 | ESPR_ITS ---
Subjective Subjective Interval history: rapid taper of pred noted. fever may be iris, Exam Vital Signs Temp Pulse Resp BP Pulse Ox O2 Del Method O2 Flow Rate 98.6 F 153 H 27 H 123/63 96 Mechanical Ventilation 40 06/29/24 12:00 06/29/24 12:00 06/29/24 08:00 06/29/24 12:00 06/29/24 12:00 06/27/24 12:34 06/09/24 12:16 FiO2 40 06/29/24 12:00 Objective - Internal Medicine Labs 06/29/24 05:30 06/29/24 05:30 Labs: Laboratory Results - last 24 hr 06/29/24 06/29/24 06/29/24 04:21 05:30 08:20 WBC 6.7 RBC 3.88 L Hgb 9.4 L Hct 30.9 L MCV 80 MCH 24.2 L MCHC 30.4 L RDW Std Deviation 73.9 H Plt Count 258 D Neut % (Auto) 66 Lymph % (Auto) 15 [place] % (Auto) 8 Eos % (Auto) 10 Baso % (Auto) 1 Neut # (Auto) 4.5 Lymph # (Auto) 1.0 [place] # (Auto) 0.5 Eos # (Auto) 0.7 H Baso # (Auto) 0.0 Immature Gran # (Auto) 0.08 H Absolute Nucleated RBC 0.00 Immature Gran % 1 H Nucleated RBC % 0 Puncture Site Left Radial ABG pH 7.41 ABG pCO2 63 H ABG pO2 81 L ABG HCO3 40 H ABG O2 Saturation 97 ABG Base Excess 14 H FiO2 45 Sodium 133 L Potassium 4.3 Chloride 92 L Carbon Dioxide 37.9 H Anion Gap 3 L BUN 22 Creatinine 0.6 Estim Creat Clear Calc 150.6 eGFR > 60 BUN/Creatinine Ratio 37 H Glucose 117 H Calculated Osmolality 270 L Lactic Acid 1.6 Calcium 7.8 L Corrected Calcium 8.7 Phosphorus 1.5 L Magnesium 1.8 Total Bilirubin 0.3 AST 118 H ALT 116 H Alkaline Phosphatase 179 H D Total Protein 5.6 L Albumin 2.9 L Globulin 2.7 Albumin/Globulin Ratio 1.1 L Triglycerides 183 H ABG Interpretation ABG results: 05/27/24 05/29/24 05/29/24 23:37 10:44 22:08 ABG pH 7.51 H 7.50 H 7.48 H ABG pCO2 28 L 32 32 ABG pO2 75 L 79 L 145 H D ABG HCO3 23 25 24 ABG O2 Saturation 96 95 98 ABG Base Excess 0 2 1 05/30/24 05/31/24 06/04/24 08:45 04:54 02:10 ABG pH 7.47 H 7.45 7.45 ABG pCO2 35 38 36 ABG pO2 86 D 82 L 139 H ABG HCO3 26 26 25 ABG O2 Saturation 97 96 98 ABG Base Excess 2 2 1 06/04/24 06/05/24 06/05/24 18:16 11:36 12:59 ABG pH 7.44 7.11 L* D 7.20 L ABG pCO2 36 94 H* D 68 H D ABG pO2 80 L D 150 H D 121 H D ABG HCO3 24 30 H 26 ABG O2 Saturation 94 97 97 ABG Base Excess 0 -2 -3 06/05/24 06/06/24 06/06/24 19:25 04:13 15:27 ABG pH 7.22 L 7.27 L 7.30 L ABG pCO2 64 H 57 H 60 H ABG pO2 122 H 153 H D 74 L D ABG HCO3 26 26 29 H ABG O2 Saturation 97 99 H 92 ABG Base Excess -3 -2 2 06/07/24 06/07/24 06/08/24 03:55 09:59 04:20 ABG pH 7.41 D 7.43 7.45 ABG pCO2 56 H 55 H 50 H ABG pO2 293 H D 78 L D 75 L ABG HCO3 36 H 37 H 35 H ABG O2 Saturation 99 H 95 94 ABG Base Excess 10 H 11 H 10 H 06/08/24 06/08/24 06/08/24 11:05 11:50 13:18 ABG pH 7.17 L* D 7.10 L* 7.15 L* ABG pCO2 95 H* D 115 H* D 88 H* D ABG pO2 89 75 L 72 L ABG HCO3 34 H 36 H 31 H ABG O2 Saturation 92 84 L 85 L ABG Base Excess 3 4 H 0 06/08/24 06/09/24 06/09/24 17:02 01:33 03:15 ABG pH 7.18 L* 7.22 L 7.27 L ABG pCO2 50 H D 91 H* D 82 H* ABG pO2 82 L 105 D 86 ABG HCO3 19 L 37 H 38 H ABG O2 Saturation 93 97 95 ABG Base Excess -9 L 7 H 9 H 06/09/24 06/09/24 06/10/24 05:08 12:52 04:40 ABG pH 7.31 L 7.33 L 7.30 L ABG pCO2 75 H* 57 H D 78 H* D ABG pO2 97 158 H D 65 L D ABG HCO3 38 H 30 H 38 H ABG O2 Saturation 97 99 H 90 L ABG Base Excess 10 H 3 9 H 06/10/24 06/11/24 06/12/24 09:40 04:19 04:15 ABG pH 7.27 L 7.35 7.48 H D ABG pCO2 88 H* D 86 H* 63 H D ABG pO2 65 L 70 L 76 L ABG HCO3 40 H 48 H 47 H ABG O2 Saturation 89 L 93 95 ABG Base Excess 10 H 19 H 21 H 06/13/24 06/14/24 06/15/24 07:22 04:32 03:45 ABG pH 7.46 H 7.48 H 7.46 H ABG pCO2 56 H 40 D 37 ABG pO2 80 L 64 L 71 L ABG HCO3 39 H 30 H 27 H ABG O2 Saturation 95 92 94 ABG Base Excess 13 H 6 H 3 06/15/24 06/15/24 06/15/24 10:17 12:20 14:20 ABG pH 7.01 L* D 7.00 L* 7.03 L* ABG pCO2 122 H* D 130 H* 125 H* ABG pO2 91 D 88 82 L ABG HCO3 31 H 32 H 33 H ABG O2 Saturation 88 L 88 L 87 L ABG Base Excess -3 -2 -1 06/15/24 06/15/24 06/16/24 15:55 20:39 00:35 ABG pH 7.03 L* 7.08 L* 7.10 L* ABG pCO2 121 H* 116 H* 118 H* ABG pO2 99 117 H 102 ABG HCO3 32 H 34 H 37 H ABG O2 Saturation 93 97 96 ABG Base Excess -1 2 4 H 06/16/24 06/16/24 06/17/24 04:45 08:55 05:06 ABG pH 7.17 L* 7.28 L D 7.33 L ABG pCO2 112 H* 88 H* D 96 H* ABG pO2 155 H D 98 D 126 H D ABG HCO3 41 H 41 H 50 H ABG O2 Saturation 99 H 98 99 H ABG Base Excess 9 H 12 H 21 H 06/17/24 06/17/24 06/18/24 10:58 13:55 04:16 ABG pH 7.29 L 7.29 L 7.33 L ABG pCO2 106 H* D 106 H* 86 H* D ABG pO2 58 L* D 61 L 77 L ABG HCO3 51 H 51 H 45 H ABG O2 Saturation 87 L 88 L 95 ABG Base Excess 21 H 21 H 17 H 06/19/24 06/20/24 06/21/24 04:18 04:49 04:06 ABG pH 7.42 7.36 7.44 ABG pCO2 63 H D 74 H* D 61 H D ABG pO2 66 L 55 L* 202 H D ABG HCO3 41 H 42 H 42 H ABG O2 Saturation 93 87 L 100 H ABG Base Excess 15 H 14 H 16 H 06/22/24 06/23/24 06/24/24 04:18 04:29 04:25 ABG pH 7.45 7.46 H 7.29 L D ABG pCO2 57 H 53 H 80 H* D ABG pO2 60 L D 99 D 88 ABG HCO3 40 H 38 H 38 H ABG O2 Saturation 91 99 H 96 ABG Base Excess 14 H 13 H 9 H 06/24/24 06/25/24 06/25/24 08:50 05:13 11:02 ABG pH 7.40 D 7.46 H Cancelled ABG pCO2 61 H D 53 H Cancelled ABG pO2 110 H D 66 L D Cancelled ABG HCO3 38 H 38 H Cancelled ABG O2 Saturation 99 H 94 Cancelled ABG Base Excess 12 H 13 H Cancelled 06/25/24 06/26/24 06/26/24 15:53 04:13 11:40 ABG pH 7.39 7.41 7.46 H ABG pCO2 53 H 48 43 ABG pO2 55 L* 58 L* 58 L* ABG HCO3 32 H 30 H 31 H ABG O2 Saturation 86 L 89 L 92 ABG Base Excess 6 H 5 H 6 H 06/27/24 06/28/24 06/28/24 04:17 04:24 06:22 ABG pH 7.48 H 7.27 L D 7.22 L ABG pCO2 39 72 H* D 83 H* D ABG pO2 49 L* 71 L D 82 L ABG HCO3 29 H 33 H 34 H ABG O2 Saturation 87 L 93 95 ABG Base Excess 5 H 5 H 4 H 06/28/24 06/29/24 10:18 04:21 ABG pH 7.32 L D 7.41 ABG pCO2 64 H D 63 H ABG pO2 76 L 81 L ABG HCO3 33 H 40 H ABG O2 Saturation 95 97 ABG Base Excess 6 H 14 H Assessment & Plan A&P Narrative pneumonia. cocci neg. procal not neg.pjp on bal noted. hiv. infection, newly discovered in a heterosexual man. can not r/o ivdu resp failure, hypoxic jo ann, resolved. acute febrile illness. cause uncertain. he has hiv, gf needs to be tested. ok for hiv rx as ordered.changed bactrim to once daily a week ago now. As noted before, not every one survives, he is only 39, but is newly discovered to have a very bad disease that is easier to manage if caught earlier. ok to maintain steroid rxn. for now. repeat cx noted. ok to be off flucon as cd4 >100 and crypto ag neg. ok to be on hiv rx. will have to notify pt when he is awake. be sure that gf is tested as precaution. Time Spent With Patient Time: Total time spent is greater than 50% in coordination of care (as documented) at patient's floor/unit and/or counseling patient:
--- NOTE | 2024-06-29 12:56 | ESPR_ITS ---
Documentation for date of: 06/29/24 Subjective Subjective Interval history: 06/26/2024: The patient was examined and evaluated at the bedside this morning. Patient is off of any sedatives or pressor support. Patient is mechanically ventilated through tracheostomy tube. The patient had 1 episode of fever overnight, and blood culture is pending. His heart rate has been in the range of 120s to 130s with RR between 28-36, saturating 92% on FiO2 50%. The patient received 2 mg IV hydromorphone x 1. His hemoglobin has been stable at 8.9, we will continue with oral ferrous sulfate 325 Mg daily, ABG revealed pH 7.46, pCO2 43, pO2 58 and bicarb 31. He received 1 dose of Diamox 500 Mg IV, sodium 130, potassium 3.5 and Veltassa was discontinued, phosphorus was 1.4 and we will repeat it further. The patient will be downgraded to telemetry unit we will continue with enteral sedatives phenobarbital 90 Mg 3 times daily, clonazepam 2 mg 3 times daily, oxycodone 10 mg 3 times daily and Seroquel 100 Mg twice daily. His sedatives will be continued for 2 weeks at this point and after that the plan is to taper down the sedatives. We will continue with HAART, micafungin until fungal culture is negative and continue with Bactrim DS daily for PCP pneumonia prophylaxis. 06/27/2024: Patient seen and examined in bedside in the ICU. Overnight patient developed hypotension, tachycardia, tachypnea, fever, was scheduled for downgrade but was readmitted to ICU for septic shock requiring pressors. Patient is mechanically ventilated via trach tube. New blood cultures, sputum cultures, urine cultures collected. Patient started on linezolid and meropenem. Continue enteral sedation. Repleted potassium and phosphorus. 06/28/2024: The patient was examined and evaluated at the bedside this morning. He continues to be mechanically ventilated through tracheostomy tube. Overnight patient did not had any fever. His urine output was about 3 L and he is negative by about 850 cc. His heart rate was in 150's, that trended down to 130s, further trended down to 100s. This morning ABG was significant for pH of 7.27 that trended down to pH of 7.2 with pCO2 of 72 and 83 respectively. Tidal volume was increased to 450 cc, and later ABG revealed pH 7.32 with pCO2 64. Brain MRI done yesterday was significant only for bilateral mastoiditis. EEG results pending. Blood cultures has been negative for 24 hours, Dr Hope was informed about restarting the patient on linezolid and meropenem, and he recommended continuing steroid for longer duration. We will continue with internal sedation. His corrected calcium was 8.4 and was started on oral calcium carbonate. We will follow-up on blood culture results and narrow down antibiotics as needed. 06/29/2024: The patient was examined and evaluated at the bedside this morning. He was started on automatic mode ventilation through tracheostomy tube and he tolerated it well. Patient did not had any fever overnight. His urine culture revealed positive for GPC, final cultures pending. His heart rate has been ranging from 120s to 150s with RR 23, saturating 96% on FiO2 40. Hemoglobin has been stable 9.4, ABG revealing pCO2 63, pO2 81 and bicarb 40 with ABG O2 saturation 97%. He continues to have mild hyponatremia with sodium of 133, and phosphorus 1.5 despite repeating multiple times. His triglyceride continues to decrease and today it is 183. The patient is to be continued on internal sedatives with phenobarbital 90 Mg 3 times daily, Ativan 2 Mg 3 times daily and oxycodone 10 Mg 3 times daily at least for 2 weeks, then slowly taper down. And also continue on prednisone 10 Mg daily for at least 1 week and then taper down. 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 Exam Vital Signs Temp Pulse Resp BP Pulse Ox O2 Del Method O2 Flow Rate 98.6 F 153 H 27 H 123/63 96 Mechanical Ventilation 40 06/29/24 12:00 06/29/24 12:00 06/29/24 08:00 06/29/24 12:00 06/29/24 12:00 06/27/24 12:34 06/09/24 12:16 FiO2 40 06/29/24 12:00 Narrative Exam GEN: Critically ill, not acutely distressed, sedated and mechanically ventilated. Neuro: Deferred due to sedation. HEENT: NCAT, tracheostomy tube on appropriate position, mild abrasion over lower lips, improving. CVS: Mildly tachycardic, no M/R/G. No JVD Respi: Mechanically ventilated, b/l breath sounds heard, mild wheezing, no crackles. ABD: Soft, no grimace to palpation, bowel sounds present in all 4 quadrants, PEG tube in appropriate place Skin: warm, dry and intact. Extremities: Pulses 2+ in all extremities, BUE edema, ruptured vesicles 1-2 cm on the rt forearm surface that have been healing. Objective Labs 06/29/24 05:30 06/29/24 05:30 Labs: Laboratory Results - last 24 hr 06/29/24 06/29/24 06/29/24 04:21 05:30 08:20 WBC 6.7 RBC 3.88 L Hgb 9.4 L Hct 30.9 L MCV 80 MCH 24.2 L MCHC 30.4 L RDW Std Deviation 73.9 H Plt Count 258 D Neut % (Auto) 66 Lymph % (Auto) 15 [place] % (Auto) 8 Eos % (Auto) 10 Baso % (Auto) 1 Neut # (Auto) 4.5 Lymph # (Auto) 1.0 [place] # (Auto) 0.5 Eos # (Auto) 0.7 H Baso # (Auto) 0.0 Immature Gran # (Auto) 0.08 H Absolute Nucleated RBC 0.00 Immature Gran % 1 H Nucleated RBC % 0 Puncture Site Left Radial ABG pH 7.41 ABG pCO2 63 H ABG pO2 81 L ABG HCO3 40 H ABG O2 Saturation 97 ABG Base Excess 14 H FiO2 45 Sodium 133 L Potassium 4.3 Chloride 92 L Carbon Dioxide 37.9 H Anion Gap 3 L BUN 22 Creatinine 0.6 Estim Creat Clear Calc 150.6 eGFR > 60 BUN/Creatinine Ratio 37 H Glucose 117 H Calculated Osmolality 270 L Lactic Acid 1.6 Calcium 7.8 L Corrected Calcium 8.7 Phosphorus 1.5 L Magnesium 1.8 Total Bilirubin 0.3 AST 118 H ALT 116 H Alkaline Phosphatase 179 H D Total Protein 5.6 L Albumin 2.9 L Globulin 2.7 Albumin/Globulin Ratio 1.1 L Triglycerides 183 H ABG Interpretation ABG results: 05/27/24 05/29/24 05/29/24 23:37 10:44 22:08 ABG pH 7.51 H 7.50 H 7.48 H ABG pCO2 28 L 32 32 ABG pO2 75 L 79 L 145 H D ABG HCO3 23 25 24 ABG O2 Saturation 96 95 98 ABG Base Excess 0 2 1 05/30/24 05/31/24 06/04/24 08:45 04:54 02:10 ABG pH 7.47 H 7.45 7.45 ABG pCO2 35 38 36 ABG pO2 86 D 82 L 139 H ABG HCO3 26 26 25 ABG O2 Saturation 97 96 98 ABG Base Excess 2 2 1 06/04/24 06/05/24 06/05/24 18:16 11:36 12:59 ABG pH 7.44 7.11 L* D 7.20 L ABG pCO2 36 94 H* D 68 H D ABG pO2 80 L D 150 H D 121 H D ABG HCO3 24 30 H 26 ABG O2 Saturation 94 97 97 ABG Base Excess 0 -2 -3 06/05/24 06/06/24 06/06/24 19:25 04:13 15:27 ABG pH 7.22 L 7.27 L 7.30 L ABG pCO2 64 H 57 H 60 H ABG pO2 122 H 153 H D 74 L D ABG HCO3 26 26 29 H ABG O2 Saturation 97 99 H 92 ABG Base Excess -3 -2 2 06/07/24 06/07/24 06/08/24 03:55 09:59 04:20 ABG pH 7.41 D 7.43 7.45 ABG pCO2 56 H 55 H 50 H ABG pO2 293 H D 78 L D 75 L ABG HCO3 36 H 37 H 35 H ABG O2 Saturation 99 H 95 94 ABG Base Excess 10 H 11 H 10 H 06/08/24 06/08/24 06/08/24 11:05 11:50 13:18 ABG pH 7.17 L* D 7.10 L* 7.15 L* ABG pCO2 95 H* D 115 H* D 88 H* D ABG pO2 89 75 L 72 L ABG HCO3 34 H 36 H 31 H ABG O2 Saturation 92 84 L 85 L ABG Base Excess 3 4 H 0 06/08/24 06/09/24 06/09/24 17:02 01:33 03:15 ABG pH 7.18 L* 7.22 L 7.27 L ABG pCO2 50 H D 91 H* D 82 H* ABG pO2 82 L 105 D 86 ABG HCO3 19 L 37 H 38 H ABG O2 Saturation 93 97 95 ABG Base Excess -9 L 7 H 9 H 06/09/24 06/09/24 06/10/24 05:08 12:52 04:40 ABG pH 7.31 L 7.33 L 7.30 L ABG pCO2 75 H* 57 H D 78 H* D ABG pO2 97 158 H D 65 L D ABG HCO3 38 H 30 H 38 H ABG O2 Saturation 97 99 H 90 L ABG Base Excess 10 H 3 9 H 06/10/24 06/11/24 06/12/24 09:40 04:19 04:15 ABG pH 7.27 L 7.35 7.48 H D ABG pCO2 88 H* D 86 H* 63 H D ABG pO2 65 L 70 L 76 L ABG HCO3 40 H 48 H 47 H ABG O2 Saturation 89 L 93 95 ABG Base Excess 10 H 19 H 21 H 06/13/24 06/14/24 06/15/24 07:22 04:32 03:45 ABG pH 7.46 H 7.48 H 7.46 H ABG pCO2 56 H 40 D 37 ABG pO2 80 L 64 L 71 L ABG HCO3 39 H 30 H 27 H ABG O2 Saturation 95 92 94 ABG Base Excess 13 H 6 H 3 06/15/24 06/15/24 06/15/24 10:17 12:20 14:20 ABG pH 7.01 L* D 7.00 L* 7.03 L* ABG pCO2 122 H* D 130 H* 125 H* ABG pO2 91 D 88 82 L ABG HCO3 31 H 32 H 33 H ABG O2 Saturation 88 L 88 L 87 L ABG Base Excess -3 -2 -1 06/15/24 06/15/24 06/16/24 15:55 20:39 00:35 ABG pH 7.03 L* 7.08 L* 7.10 L* ABG pCO2 121 H* 116 H* 118 H* ABG pO2 99 117 H 102 ABG HCO3 32 H 34 H 37 H ABG O2 Saturation 93 97 96 ABG Base Excess -1 2 4 H 06/16/24 06/16/24 06/17/24 04:45 08:55 05:06 ABG pH 7.17 L* 7.28 L D 7.33 L ABG pCO2 112 H* 88 H* D 96 H* ABG pO2 155 H D 98 D 126 H D ABG HCO3 41 H 41 H 50 H ABG O2 Saturation 99 H 98 99 H ABG Base Excess 9 H 12 H 21 H 06/17/24 06/17/24 06/18/24 10:58 13:55 04:16 ABG pH 7.29 L 7.29 L 7.33 L ABG pCO2 106 H* D 106 H* 86 H* D ABG pO2 58 L* D 61 L 77 L ABG HCO3 51 H 51 H 45 H ABG O2 Saturation 87 L 88 L 95 ABG Base Excess 21 H 21 H 17 H 06/19/24 06/20/24 06/21/24 04:18 04:49 04:06 ABG pH 7.42 7.36 7.44 ABG pCO2 63 H D 74 H* D 61 H D ABG pO2 66 L 55 L* 202 H D ABG HCO3 41 H 42 H 42 H ABG O2 Saturation 93 87 L 100 H ABG Base Excess 15 H 14 H 16 H 06/22/24 06/23/24 06/24/24 04:18 04:29 04:25 ABG pH 7.45 7.46 H 7.29 L D ABG pCO2 57 H 53 H 80 H* D ABG pO2 60 L D 99 D 88 ABG HCO3 40 H 38 H 38 H ABG O2 Saturation 91 99 H 96 ABG Base Excess 14 H 13 H 9 H 06/24/24 06/25/24 06/25/24 08:50 05:13 11:02 ABG pH 7.40 D 7.46 H Cancelled ABG pCO2 61 H D 53 H Cancelled ABG pO2 110 H D 66 L D Cancelled ABG HCO3 38 H 38 H Cancelled ABG O2 Saturation 99 H 94 Cancelled ABG Base Excess 12 H 13 H Cancelled 06/25/24 06/26/24 06/26/24 15:53 04:13 11:40 ABG pH 7.39 7.41 7.46 H ABG pCO2 53 H 48 43 ABG pO2 55 L* 58 L* 58 L* ABG HCO3 32 H 30 H 31 H ABG O2 Saturation 86 L 89 L 92 ABG Base Excess 6 H 5 H 6 H 1206/28/24 06/28/24 04:17 04:24 06:22 ABG pH 7.48 H 7.27 L D 7.22 L ABG pCO2 39 72 H* D 83 H* D ABG pO2 49 L* 71 L D 82 L ABG HCO3 29 H 33 H 34 H ABG O2 Saturation 87 L 93 95 ABG Base Excess 5 H 5 H 4 H 06/28/24 06/29/24 10:18 04:21 ABG pH 7.32 L D 7.41 ABG pCO2 64 H D 63 H ABG pO2 76 L 81 L ABG HCO3 33 H 40 H ABG O2 Saturation 95 97 ABG Base Excess 6 H 14 H Quality Measures Quality Measures sepsis Current suspected stage: sepsis Possible source: pulmonary, GI tract/intra-abdominal, genitourinary and skin/soft tissue Blood cultures ordered: yes Antibiotic ordered: Yes Assessment & Plan Assessment Current Active Medications: Generic Name Dose Route Start Last Admin Trade Name Freq PRN Reason Stop Dose Admin Acetaminophen 650 mg 06/26/24 15:16 06/28/24 08:05 Acetaminophen Munira 325 Mg/10 Ml Udc GT 07/26/24 15:15 650 mg Q4HR PRN Administration Pain Or Fever > 100.3 Albuterol/Ipratropium 3 ml 06/05/24 11:40 06/25/24 08:58 Albuterol/Ipratropium (Duoneb) Rt Munira 3 Ml Nebu INH 07/05/24 14:59 3 ml Q4HRRT PRN Administration Wheezing Artificial Tears 1 drop 06/18/24 12:00 06/29/24 12:00 Artificial Tears 225 Drop/15 Ml Btl BOTH EYES 07/18/24 11:59 1 drop QID JUAN JOSE Administration Calcium Carbonate 600 mg 06/28/24 13:00 06/28/24 13:35 Calcium Carbonate 600 Mg Tablet GT 07/28/24 12:59 600 mg QDAY@1300 JUAN JOSE Administration Clonazepam 2 mg 06/28/24 08:45 06/29/24 05:40 Clonazepam 0.5 Mg Tablet PO 07/19/24 08:44 2 mg TID JUAN JOSE Administration Dextrose 25 ml 06/06/24 08:20 Dextrose 50%-Water Inj 50 Ml Syringe IV 07/06/24 08:19 Q15MIN PRN BG 50-70 responsive npo pt Dextrose 50 ml 06/06/24 08:20 Dextrose 50%-Water Inj 50 Ml Syringe IV 07/06/24 08:19 Q15MIN PRN BG <50 OR BG <70 & pt unresponsive Docusate Sodium 100 mg 06/25/24 09:13 Docusate Sod Liqd 100 Mg/10 Ml Udc PO 07/22/24 08:59 BID PRN Constipation Protocol Emtricitabine/Tenofovir 1 tab 06/16/24 12:30 06/29/24 08:36 Emtricitabine 200 Mg/Tenofovir 300 Mg Tab (Non-Form) PO 07/16/24 12:29 1 tab QDAY JUAN JOSE Administration Ferrous Sulfate 325 mg 06/23/24 10:00 06/29/24 08:32 Ferrous Sulf 325 Mg Tablet PO 07/23/24 09:59 325 mg QDAY JUAN JOSE Administration Glucagon 1 mg 06/06/24 08:20 Glucagon Inj 1 Mg Vial IM Q15MIN PRN BG <70, and no IV access Heparin Sodium/Dextrose 25,000 unit in 250 mls @ 13.122 mls/hr 06/25/24 16:15 06/28/24 06:54 Heparin In D5w Ivpb IV 06/29/24 14:44 Infused .Q19H4M JUAN JOSE Titration Protocol 18 UNITS/KG/HR Linezolid 600 mg in 300 mls @ 300 mls/hr 06/27/24 09:00 06/29/24 08:32 Zyvox Ivpb IV 07/04/24 08:59 300 mls/hr Q12HR JUAN JOSE Administration Meropenem 1,000 mg/ Sodium 50 mls @ 100 mls/hr 06/27/24 08:45 06/29/24 05:39 Chloride IV 07/04/24 08:44 100 mls/hr Q8HR JUAN JOSE Administration Lorazepam 2 mg 06/27/24 22:20 06/29/24 10:16 Lorazepam 2 Mg/Ml Vial IVP 07/02/24 22:19 2 mg Q3H PRN Administration ANXIETY Oxycodone HCl 10 mg 06/28/24 00:17 06/29/24 05:40 Oxycodone Hcl 5 Mg Ir Tab PO 07/03/24 00:16 10 mg TID JUAN JOSE Administration Phenobarbital 90 mg 06/22/24 14:00 06/29/24 05:49 Phenobarbital Elix 20 Mg/5 Ml Udc GT 07/18/24 13:59 90 mg TID JUAN JOSE Administration Potassium Phos/Sodium Phos 2 packet 06/29/24 21:00 [facility] 1 Packet (1.5 Gm) PO 07/29/24 20:59 BID JUAN JOSE Prednisone 10 mg 06/26/24 09:00 06/29/24 08:32 Prednisone 5 Mg Tablet PO 07/26/24 08:59 10 mg QDAY JUAN JOSE Administration Quetiapine Fumarate 100 mg 06/28/24 21:00 06/29/24 08:32 Quetiapine Fumarate 100 Mg Tablet PO 07/25/24 20:59 100 mg BID JUAN JOSE Administration Raltegravir 400 mg 06/29/24 08:30 06/29/24 08:36 Raltegravir 400 Mg Tablet NG 07/06/24 08:29 400 mg BID@0700,1900 JUAN JOSE Administration Trimethoprim/Sulfamethoxazole 20 ml 06/23/24 09:00 06/29/24 08:33 Trimethoprim/Sulfa Susp 1 Ml PO 06/22/25 12:00 20 ml QDAY JUAN JOSE Administration Plan 39-year-old male patient with no PMHx who initially presented to [facility] (Formerly [facility]) on 05/27/2024 with a chief complaint of shortness of breath and cough, with associated chills, body aches, generalized weakness, fever, and night sweats beginning weeks prior but progressively worsening over a few days is currently being treated for acute hypoxic respiratory failure secondary to PCP pneumonia that was complicated by ventilator associated pneumonia. Patient is currently on tracheostomy tube and mechanically ventilated. 06/29/2024: The patient was examined and evaluated at the bedside this morning. He was started on automatic mode ventilation through tracheostomy tube and he tolerated it well. Patient did not had any fever overnight. His urine culture revealed positive for GPC, final cultures pending. His heart rate has been ranging from 120s to 150s with RR 23, saturating 96% on FiO2 40. Hemoglobin has been stable 9.4, ABG revealing pCO2 63, pO2 81 and bicarb 40 with ABG O2 saturation 97%. He continues to have mild hyponatremia with sodium of 133, and phosphorus 1.5 despite repeating multiple times. His triglyceride continues to decrease and today it is 183. The patient is to be continued on internal sedatives with phenobarbital 90 Mg 3 times daily, Ativan 2 Mg 3 times daily and oxycodone 10 Mg 3 times daily at least for 2 weeks, then slowly taper down. And also continue on prednisone 10 Mg daily for at least 1 week and then taper down. 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 NEURO Patient is sedated and mechanically ventilated through tracheostomy tube. 06/05/2024 Patient was intubated, sedated, and paralyzed for ARDS. Currently switched IV sedatives to enteral sedatives with phenobarbital 90 Mg 3 times daily, clonazepam 2 Mg 3 times daily and oxycodone 10 Mg 3 times daily. -Continue with oral sedatives for 2 more weeks, and then taper down if tolerated -MRI showed no acute hemorrhage, infarct, mass effect, or midline shift. No findings diagnostic for demyelinating disease. EEG was normal. #Fever, resolved Patient repeat fever overnight along with hypotension, tachypnea, tachycardia. New septic shock. Multiple cultures pending, antibiotics broadened. -Treat underlying condition -Tylenol as needed CARDIO #Right upper extremity DVT. -Doppler US right upper extremity 06/17/24: revealed RUE DVT -On Heparin Drip, can be switched to oral anticoagulants #Sinus tachycardia Tachycardia most likely secondary to respiratory distress and agitation 2/2 AHRF in the setting of tapering down sedatives -Continue to treat the underlying cause #Septic shock, resolved Patient presented with septic shock secondary to severe extensive bilateral pneumonia. After resolution of initial septic shock, patient developed new hypotension, tachycardia, tachypnea, fevers indicated of septic shock. -Pressor support weaned off. -Linezolid (started 06/27- -Meropenem (started 06/27- -Follow-up blood, urine, sputum cultures, and narrow down after results PULM #Chronic hypoxic respiratory failure Secondary to #Bilateral pneumocystis jirovecii pneumonia, resolved #Healthcare associated pneumonia, resolved, resolved #Ventilator associated pneumonia, resolved #Chronic respiratory distress syndrome as a consequence of ARDS 2/2 PCP pneumonia #S/P Tracheostomy Patient presented with dyspnea and cough, requiring 4L NC on first ED evaluation, and history of chills, body aches, generalized weakness, fever, and night sweats progressively worsening over the prior weeks. Approx 20-pack year smoking history, occasional marijuana. 06/17/2024 oxygenation and hypercapnia improved, was put in supine position, continued to be paralyzed. On linezolid 600 mg q12h 06/15/24-06/22/24 Plan: -Linezolid (started 06/27) and Meropenum (startd 06/27) -Continue with daily Bactrim -Continue with prednisolone 10 mg daily for at least 7 more days -ABG as needed GI GI prophylaxis: None as patient got extubated and is on tracheostomy tube. #Elevated LFTs, improving Likely due to propofol and bactrim. Mildly elevated, liver US 05/30/2024 showed normal gallbladder and hepatomegaly without lesions or evidence of obstructions. Hep panel negative. LFTs downtrended compared to 06/06/24. 06/15/2024 Floyd in LFTs with AST 303, ALT 420, Tbili 1.3, therefore right upper quadrant US ordered, negative for cholecystitis/cholelithiasis, hepatitis panel negative. No obvious changes on physical exam. 06/20/24: LFT AST/ALT/ALP : 99/123/118 Plan: -Continue monitoring #Hypertriglyceridemia, trending down More likely secondary to propofol use -We repeated lipid panel on 06/30/2024- 183 NEPHRO #Hypophosphatemia #WILL, resolved #Hyperkalemia---Resolved #Hyperphosphatemia, resolved Plan: -Discontinued Veltassa as potassium has been in the lower end of normal value -Continue to monitor phosphorus and replete as needed -Maintain euvolemia -Monitor CMP, especially phosphorus -Replete electrolytes as needed. #Mild hyponatremia Secondary to SIADH due to acute hypoxic respiratory failure leading to pulmonary distress -Continue to monitor #NAGMA #Primary Respiratory acidosis compensated by metabolic alkalosis, stable Secondary to increased work of breathing and increased RR 2/2 chronic hypoxic respiratory failure and chronic respiratory distress syndrome in the setting of tapering down of IV sedatives -ABGs revealed pH of 7.46, pCO2 53, pO2 66 and bicarb 38. -ABG on 06/28/2024 revealed pH of 7.32, pCO2 64 and bicarb 33.1. -We will treat the underlying cause HEME #Leukocytosis, resolved Fluctuating WBC. In the setting of likely infection, inflammation, and corticosteroids. 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 Clinically no evidence of bleeding. Iron panel shows iron 17, TIBC 262, iron saturation 6, unsaturated iron binding 245. Peripheral blood film confirms microcytic hypochromic anemia with target cells. Also daily lab draws contributing. Plan: -Started on oral ferrous sulfate 325 Mg daily -Monitor H&H. Transfusing for Hgb <7 #Thrombocytosis, resolved Likely reactive. -Continue to monitor ENDO #Hypoglycemia, resolved Blood glucose this morning was 69, likely secondary to increased metabolic acid complicated by stopping enteral feeding -Bolus D50W given -Repeat blood sugar was stable -We will resume enteral feeding after PEG tube placement ID #Bilateral pneumocystis pneumonia #Healthcare associated pneumonia #Ventilator associated pneumonia #PCP pneumonia prophylaxis Negative studies: Cocci IgM and IgG, Hepatitis panel, Syphilis, Legionella, H.flu, N.meningitidis, Strep B, Strep pneumoniae, COVID, RSV, Flu A & B. TB quantiferon GOLD-indeterminate, however 06/05 AFB negative, CMV IgM, cryptococcal antigen negative. G6PD levels came back normal for consideration of dapsone alternative to Bactrim if needed. Patient completed 5 day course of azithromycin, 16 days of Zosyn. See Pulm for timeline of antimicrobial coverage. On 06/27 patient developed new septic shock Plan: -Antibiotcs Bactrim for prevention of PCP pneumonia in the setting of CD4 count of 116 -Linezolid and meropenum restarted on 06/27/2024- -Urine ackerman port grew GPC, final results pending -Fungal cultures from BAL pending, follow-up on results -Blood cultures from 06/26/2024 and 06/27/2024 is negative for 24 hours. -Follow up blood, sputum, and urine cultures #AIDS/HIV Patient has Stage 4 HIV, AIDS-defining illness with opportunistic infection. 06/07/2024 Bronchoalveolar lavage cytology shows Pneumocystis jirovecii. Also other fungi, possibly Kassandra. Kassandra is most likely a contaminant. Blood axdd-G-jjchep also positive. 06/08/2024 HIV quant 5.66 million copies. HIV 1 positive confirmed. 06/09/2024 Patient's decision maker, Francesca, was informed of diagnosis due to critical state of patient. Absolute CD4 count 87 and 22% on 06/02. History/risk factors: History of injection anabolic androgenic steroid and testosterone use, possible unclean needles. History of incarceration (unknown time). Tattoos received as a teenager. Has 1 female sexual partner last 5 years, denies others. -Continue HAART: emtricitabine / tenofovir (Truvada) and raltegravir initiated 06/09/24 -Patient is not aware of his diagnosis as he has been intubated and sedated before results returned. Will require complete education and counseling on the disease if his mental status and clinical condition improves. 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 The patient is being downgraded to telemetry unit for further management of chronic hypoxic respiratory failure s/p tracheostomy. DVT prophylaxis: On heparin drip for treatment of right upper extremity DVT GI prophylaxis: Pantoprazole 40 mg IV qday, discontinued Diet: Tube feeds Ackerman: No, condom cath Lines: Peripheral IV, removed rt femoral central line on 06/28/24 Antibiotics: Bactrim, linezolid, meropenum CODE STATUS: FULL CODE Patient plan of care was discussed with the attending physician, Dr. Walsh. Jeff Pacheco MD, PGY2
[2024-06-29] MEDS: MORPHINE SULF INJ 10 MG/ML VIAL 4 MG IVP (15:05)
[2024-06-29] MEDS: CALCIUM CARBONATE 600 MG TABLET GT (15:05)
--- NOTE | 2024-06-29 15:26 | PD.RESEVENT ---
Documentation for date of: 06/29/24 Event Note Event Note: The hospitalist team accepted an ICU downgrade, 39 male Tirso Owen with history of HIV, chronic tracheostomy and PEG tube. Admitted originally for acute hypoxic respiratory failure secondary to PCP pneumonia. Stabilized in ICU. Continued on LINEZOLID and BACTRIM prophylaxis. Of note, patient downgraded on sedatives through PEG tube, notably PHENOBARBITAL for 2 weeks and then will be tapered after that. The hospitalist team will assume care of the patient tomorrow 06/30/2024 in the AM. Patient case was discussed with attending, Leonardo Montano MD and senior residents Dr. Almanza and Dr. Adams. Charles Muhammad DO PGYI
[2024-06-29] MEDS: ACETAMINOPHEN SOL 325 MG/10 ML UDC 650 MG GT (17:53)
[2024-06-29] MEDS: NAPH,KPH MBDB 1 PACKET (1.5 GM) 2 PACKET PO (21:17)
[2024-06-29] MEDS: RINGERS LACTATED 1000 ML 1,000 ML 999 ML IV ×2 (22:54→23:55)
--- NOTE | 2024-06-29 23:07 | XR_ITS ---
Examination: AP chest single view Technique: AP portable semiupright chest single view Exam date and time: June 29, 2024 11:30 PM Indications: Sepsis protocol. Findings: Severe bilateral lung opacity Normal heart size Tracheostomy tube tip 4.8 cm above sunil Impression: Again noted severe bilateral pneumonia ARDS pattern
[2024-06-29 23:26] LABS: Lactate (Lactic Acid) 1.8 mMol/L (0.4-2.0)
[2024-06-29 23:29] LABS: Basophils # (Auto) 0.1 Thou/mm3 (0.0-0.2); Basophils % (Auto) 1 % (0-2.5); Eosinophils # (Auto) 0.5 Thou/mm3 (0.0-0.5); Eosinophils % (Auto) 7 % (0-10); Hematocrit 28.3 % (41.0-53.0); Immature Granulocytes % (Auto) 2 % (0-0); Immature Granulocytes Auto 0.11 Thou/mm3 (0.00-0.00); Lymphocytes # (Auto) 1.7 Thou/mm3 (1.0-4.8); Lymphocytes % (Auto) 22 % (10-50); Mean Corpuscular HGB Conc 30.7 g/dl (31.0-37.0); Mean Corpuscular Hemoglobin 24.4 pg (25.0-35.0); Mean Corpuscular Volume 79 fL (80-100); Monocytes # (Auto) 0.6 Thou/mm3 (0.0-0.8); Monocytes % (Auto) 8 % (0-12); Neutrophils # (Auto) 4.6 Thou/mm3 (1.8-7.7); Neutrophils % (Auto) 61 % (37-80); Nucleated Red Blood Cell % 0 /100 WBC (0); Platelet Count 274 Thou/mm3 (140-440); RDW Standard Deviation 73.3 fL (35.1-43.9); Red Blood Count 3.57 Miln/mm3 (4.50-5.90); White Blood Count 7.6 Thou/mm3 (3.8-10.6)
[2024-06-29 23:33] LABS: Hemoglobin 8.7 g/dL (13.5-16.0)
[2024-06-30] VITALS (136 sets, daily range): BP systolic 77–135; BP diastolic 36–82; PULSE 79–139; RESP 0–61; TEMP 36.3–38.9; O2SAT 83–100
[2024-06-30 00:02] LABS: Alanine Aminotransferase 225 U/L (10-49); Albumin, Serum 2.5 gm/dL (3.5-5.0); Albumin/Globulin Ratio 0.9 (1.2-2.2); Alkaline Phosphatase 237 U/L (46-116); Anion Gap 2 (7-16); Aspartate Amino Transferase 392 U/L (0-34); BUN/Creatinine Ratio 40 Ratio (12-20); Bilirubin,Total 0.3 mg/dL (0.3-1.2); Blood Urea Nitrogen 28 mg/dL (9-23); Calcium 7.8 mg/dL (8.3-10.6); Carbon Dioxide 37.3 mMol/L (20.0-31.0); Chloride 94 mMol/L (98-107); Creatinine (Component) 0.7 mg/dL (0.6-1.3); Estimated Creatinine Clearance 129.1 mL/min (>60); Globulin 2.8 gm/dL (2.3-3.5); Glucose 111 mg/dL (74-106); Osmolality,Calculated 272 (275-295); Potassium 4.9 mMol/L (3.4-5.1); Procalcitonin 1.03 ng/ml (0.0-0.49); Sodium 133 mMol/L (136-145); Total Protein 5.3 gm/dL (5.7-8.2); eGFR > 60 See Note
[2024-06-30] MEDS: LORazepam 2 MG/ML VIAL IVP ×2 (02:48→12:40)
--- NOTE | 2024-06-30 03:04 | PC.RT ---
with 0300 vent check pt had just received a bath as well as currently has a fever. Pt is breathing in the 40s, shaking, clenching jaw, gives the appearance of being in pain. blood pressure dropped and saturations dropped. o2 increased to 60% which brought o2 to minimal sats of 88/89%. Will titrate pt has he recovers from bed bath and movement. Pt has been down graded to tele, but is too unstable to leave ICU at this time
[2024-06-30] MEDS: ACETAMINOPHEN SOL 325 MG/10 ML UDC 650 MG GT ×2 (03:26→17:14)
--- NOTE | 2024-06-30 04:16 | PD.RESEVENT ---
Documentation for date of: 06/30/24 Event Note Event Note: During the night patient spiked a fever of 100.8 for which cooling measures were started, as well patient MAP drop below 65 and patient was tachycardic with a heart rate of 130s. Sepsis protocol was started and repeat blood cultures, CBC, CMP, lactic acid and Pro-Jayy were ordered. 30 cc/kg LR were given for total of 2 L and patient was fluid responsive. MAP improved to 71. CBC was unremarkable, CMP showed transaminitis AST 392 and ALT 225, Pro-Jayy mildly elevated 1.03 otherwise patient is on broad-spectrum antibiotics. Repeat chest x-ray did not show any significant changes compared to the morning one. Lactic acid within normal limits, later during the night blood pressure dropped with MAP below 60 for which decision to start Levophed gtt. was ordered and patient will remain in the ICU due to septic shock. Patient discussed with my attending Dr Joon Batres MD PGY-3 Disclaimer: Despite multiple revisions, due to the dictation software being used, the document bellow may not be free of grammatical errors including phonetic/typographic errors. However, this does not deter from our commitment to providing health care in the patient's best interest in mind.
[2024-06-30] MEDS: Norepinephrine/D5W 8mg/250ml 8 MG/250 ML BAG 6.319 MG IV (04:17)
[2024-06-30] MEDS: PHENOBARBITAL ELIX 20 MG/5 ML 90 MG GT ×3 (05:43→21:37)
[2024-06-30] MEDS: oxyCODONE HCL 5 MG IR TAB 10 MG PO ×3 (05:44→21:38)
[2024-06-30] MEDS: clonazePAM 0.5 MG TABLET 2 MG PO ×3 (05:44→21:38)
[2024-06-30] MEDS: Artificial Tears 225 DROP/15 ML BTL BOTH EYES ×4 (05:45→21:54)
[2024-06-30] MEDS: MEROPENEM INJ 1,000 MG in SODIUM CHLORIDE 0.9% (P) 50 ML 100 MG IV ×3 (05:46→21:54)
[2024-06-30] MEDS: RALTEGRAVIR 400 MG TABLET NG ×2 (06:18→20:37)
[2024-06-30 06:45] LABS: Lactate (Lactic Acid) 2.7 mMol/L (0.4-2.0)
[2024-06-30 06:50] LABS: Basophils % (Auto) 1 % (0-2.5); Eosinophils # (Auto) 0.6 Thou/mm3 (0.0-0.5); Eosinophils % (Auto) 7 % (0-10); Hematocrit 26.5 % (41.0-53.0); Immature Granulocytes % (Auto) 2 % (0-0); Immature Granulocytes Auto 0.13 Thou/mm3 (0.00-0.00); Lymphocytes % (Auto) 12 % (10-50); Mean Corpuscular HGB Conc 30.6 g/dl (31.0-37.0); Mean Corpuscular Hemoglobin 24.3 pg (25.0-35.0); Mean Corpuscular Volume 79 fL (80-100); Monocytes # (Auto) 0.7 Thou/mm3 (0.0-0.8); Monocytes % (Auto) 8 % (0-12); Neutrophils # (Auto) 6.1 Thou/mm3 (1.8-7.7); Neutrophils % (Auto) 71 % (37-80); Nucleated Red Blood Cell % 0 /100 WBC (0); Platelet Count 321 Thou/mm3 (140-440); RDW Standard Deviation 70.4 fL (35.1-43.9); Red Blood Count 3.34 Miln/mm3 (4.50-5.90); White Blood Count 8.7 Thou/mm3 (3.8-10.6)
[2024-06-30 06:55] LABS: Hemoglobin 8.1 g/dL (13.5-16.0)
[2024-06-30 07:09] LABS: Alanine Aminotransferase 364 U/L (10-49); Albumin, Serum 2.5 gm/dL (3.5-5.0); Alkaline Phosphatase 295 U/L (46-116); Anion Gap 6 (7-16); Aspartate Amino Transferase 601 U/L (0-34); BUN/Creatinine Ratio 42 Ratio (12-20); Bilirubin,Total 0.3 mg/dL (0.3-1.2); Blood Urea Nitrogen 25 mg/dL (9-23); Calcium 7.2 mg/dL (8.3-10.6); Calcium (Corrected) 8.4 mg/dL (8.5-10.1); Carbon Dioxide 33.8 mMol/L (20.0-31.0); Chloride 95 mMol/L (98-107); Creatinine (Component) 0.6 mg/dL (0.6-1.3); Estimated Creatinine Clearance 150.6 mL/min (>60); Globulin 2.5 gm/dL (2.3-3.5); Glucose 105 mg/dL (74-106); Magnesium 1.6 mg/dL (1.6-2.6); Osmolality,Calculated 274 (275-295); Phosphorous 1.2 mg/dL (2.4-5.1); Potassium 3.7 mMol/L (3.4-5.1); Sodium 135 mMol/L (136-145); eGFR > 60 See Note
[2024-06-30] MEDS: NAPH,KPH MBDB 1 PACKET (1.5 GM) 2 PACKET PO ×3 (07:47→21:38)
[2024-06-30 08:08] LABS: Base Excess 13 (-3-3); HCO3 40 mEq/L (20-26); Inspired Oxygen, FIO2 60 %; O2 Saturation 88 % (91-98); PCO2 62 mmHg (32.0-48.0); pH, Arterial 7.41 (7.35-7.45)
--- NOTE | 2024-06-30 08:10 | XR_ITS ---
Examination: CT chest with intravenous contrast CT abdomen with intravenous contrast CT pelvis with intravenous contrast 2-D coronal and sagittal reconstructions Time of exam: June 30, 2024 1135 hours Comparison June 16, 2024 INDICATIONS: Fever congestion shortness of breath this week, history severe pneumonia ARDS, sepsis today CTDI: vol (mGy) : 8.11 DLP: (mGycm): 644 Technique: Multiple axial images of the chest, abdomen and pelvis with intravenous contrast, 3.0 mm slice thickness. Images obtained post intravenous injection Isovue 370 60 cc. 2-D sagittal and coronal reconstructions. Low dose protocols were performed. One or more of the following dose reduction techniques were used; automated exposure control, adjustment of the mA and/or KV according to patient size, use of iterative reconstruction technique. Findings: Tracheal tube tip 4 cm above sunil No thoracic aortic aneurysm dilatation No pulmonary artery emboli on this non-CTA study Severe bilateral lung opacity with no lung abscess There is pneumomediastinum, no pneumothorax Hepatosplenomegaly, liver sagittal dimension 19 cm AP dimension spleen 14 cm No pancreatic mass Nodular thickening left adrenal gland No hydronephrosis Gallbladder wall appears mildly thickened Abdominal aorta normal size No bowel obstruction Rectal tube No bladder mass Anasarca Mild osteopenia IMPRESSION: Severe bilateral pneumonia ARDS pattern Pneumomediastinum No pneumothorax, no lung abscess Hepatosplenomegaly No abdominal or pelvic abscess Recommend hepatobiliary sonography follow-up to exclude cholecystitis
[2024-06-30 08:15] LABS: Allen Test Performed/OK; PO2 59 mmHg (83-108); Puncture Site Left Radial
[2024-06-30] MEDS: METOPROLOL TARTRATE 25 MG TABLET PO (09:10)
[2024-06-30] MEDS: predniSONE 5 MG TABLET 10 MG PO (09:10)
[2024-06-30] MEDS: LINEZOLID 600 MG IVPB 600 MG/300 ML BAG 300 MG IV ×2 (09:10→21:40)
[2024-06-30] MEDS: FERROUS SULF 325 MG TABLET PO (09:10)
[2024-06-30] MEDS: EMTRICITABINE 200 MG/TENOFOVIR 300 MG TAB (NON-FORM) 1 TAB PO (09:11)
[2024-06-30] MEDS: QUEtiapine FUMARATE 100 MG TABLET PO ×2 (09:11→21:38)
[2024-06-30] MEDS: SULFAMETHOXAZOLE PO (09:16)
[2024-06-30] MEDS: TRIMETHOPRIM PO (09:16)
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
[2024-06-30 09:44] LABS: Reflex Lactate? Y
--- NOTE | 2024-06-30 10:11 | PD.RESPRO ---
Documentation for date of: 06/30/24 Subjective Subjective Interval history: Patient seen and examined. Tracheostomy in place. Was hypotensive overnight. Good UOP. Labs and imaging reviewed. Exam Vital Signs Temp Pulse Resp BP Pulse Ox O2 Del Method O2 Flow Rate 98.3 F 97 33 H 106/64 99 Mechanical Ventilation 40 06/30/24 08:00 06/30/24 10:00 06/30/24 01:15 06/30/24 10:00 06/30/24 10:00 06/30/24 08:00 06/09/24 12:16 FiO2 45 06/30/24 08:00 Narrative Exam GEN: Critically ill, not acutely distressed, sedated and trach. Neuro: Deferred due to sedation. HEENT: NCAT, trachea midline, moist mucous membranes, ET tube in place, PO tube noted. CVS: RRR, S1S2 present, no M/R/G. No JVD Respi: Mechanically ventilated, b/l breath sounds heard with diffuse rhonchi, no wheezing/crackles. ABD: Soft, no grimace to palpation, bowel sounds present in all 4 quadrants. Skin: warm, dry and intact. Extremities: Pulses 3+ in all extremities, RUE edema, vesicles 1-2 cm on the forearm surface. Objective Labs 07/01/24 05:18 07/01/24 05:18 Labs: Laboratory Results - last 24 hr 06/29/24 06/30/24 06/30/24 23:10 06:15 07:57 WBC 7.6 8.7 RBC 3.57 L 3.34 L Hgb 8.7 L 8.1 L Hct 28.3 L 26.5 L MCV 79 L 79 L MCH 24.4 L 24.3 L MCHC 30.7 L 30.6 L RDW Std Deviation 73.3 H 70.4 H Plt Count 274 321 D Neut % (Auto) 61 71 Lymph % (Auto) 22 12 [place] % (Auto) 8 8 Eos % (Auto) 7 7 Baso % (Auto) 1 1 Neut # (Auto) 4.6 6.1 Lymph # (Auto) 1.7 1.0 [place] # (Auto) 0.6 0.7 Eos # (Auto) 0.5 0.6 H Baso # (Auto) 0.1 0.0 Immature Gran # (Auto) 0.11 H 0.13 H Absolute Nucleated RBC 0.00 0.00 Immature Gran % 2 H 2 H Nucleated RBC % 0 0 Puncture Site Left Radial ABG pH 7.41 ABG pCO2 62 H ABG pO2 59 L* D ABG HCO3 40 H ABG O2 Saturation 88 L ABG Base Excess 13 H FiO2 60 Sodium 133 L 135 L Potassium 4.9 D 3.7 D Chloride 94 L 95 L Carbon Dioxide 37.3 H 33.8 H Anion Gap 2 L 6 L BUN 28 H 25 H Creatinine 0.7 0.6 Estim Creat Clear Calc 129.1 150.6 eGFR > 60 > 60 BUN/Creatinine Ratio 40 H 42 H Glucose 111 H 105 Calculated Osmolality 272 L 274 L Lactic Acid 1.8 2.7 H Calcium 7.8 L 7.2 L Corrected Calcium 9.0 8.4 L Phosphorus 1.2 L Magnesium 1.6 Total Bilirubin 0.3 0.3 AST 392 H 601 H* ALT 225 H 364 H Alkaline Phosphatase 237 H D 295 H D Total Protein 5.3 L 5.0 L Albumin 2.5 L 2.5 L Globulin 2.8 2.5 Albumin/Globulin Ratio 0.9 L 1.0 L Procalcitonin 1.03 H ABG Interpretation ABG results: 05/27/24 05/29/24 05/29/24 23:37 10:44 22:08 ABG pH 7.51 H 7.50 H 7.48 H ABG pCO2 28 L 32 32 ABG pO2 75 L 79 L 145 H D ABG HCO3 23 25 24 ABG O2 Saturation 96 95 98 ABG Base Excess 0 2 1 05/30/24 05/31/24 06/04/24 08:45 04:54 02:10 ABG pH 7.47 H 7.45 7.45 ABG pCO2 35 38 36 ABG pO2 86 D 82 L 139 H ABG HCO3 26 26 25 ABG O2 Saturation 97 96 98 ABG Base Excess 2 2 1 06/04/24 06/05/24 06/05/24 18:16 11:36 12:59 ABG pH 7.44 7.11 L* D 7.20 L ABG pCO2 36 94 H* D 68 H D ABG pO2 80 L D 150 H D 121 H D ABG HCO3 24 30 H 26 ABG O2 Saturation 94 97 97 ABG Base Excess 0 -2 -3 06/05/24 06/06/24 06/06/24 19:25 04:13 15:27 ABG pH 7.22 L 7.27 L 7.30 L ABG pCO2 64 H 57 H 60 H ABG pO2 122 H 153 H D 74 L D ABG HCO3 26 26 29 H ABG O2 Saturation 97 99 H 92 ABG Base Excess -3 -2 2 06/07/24 06/07/24 06/08/24 03:55 09:59 04:20 ABG pH 7.41 D 7.43 7.45 ABG pCO2 56 H 55 H 50 H ABG pO2 293 H D 78 L D 75 L ABG HCO3 36 H 37 H 35 H ABG O2 Saturation 99 H 95 94 ABG Base Excess 10 H 11 H 10 H 06/08/24 06/08/24 06/08/24 11:05 11:50 13:18 ABG pH 7.17 L* D 7.10 L* 7.15 L* ABG pCO2 95 H* D 115 H* D 88 H* D ABG pO2 89 75 L 72 L ABG HCO3 34 H 36 H 31 H ABG O2 Saturation 92 84 L 85 L ABG Base Excess 3 4 H 0 06/08/24 06/09/24 06/09/24 17:02 01:33 03:15 ABG pH 7.18 L* 7.22 L 7.27 L ABG pCO2 50 H D 91 H* D 82 H* ABG pO2 82 L 105 D 86 ABG HCO3 19 L 37 H 38 H ABG O2 Saturation 93 97 95 ABG Base Excess -9 L 7 H 9 H 06/09/24 06/09/24 06/10/24 05:08 12:52 04:40 ABG pH 7.31 L 7.33 L 7.30 L ABG pCO2 75 H* 57 H D 78 H* D ABG pO2 97 158 H D 65 L D ABG HCO3 38 H 30 H 38 H ABG O2 Saturation 97 99 H 90 L ABG Base Excess 10 H 3 9 H 06/10/24 06/11/24 06/12/24 09:40 04:19 04:15 ABG pH 7.27 L 7.35 7.48 H D ABG pCO2 88 H* D 86 H* 63 H D ABG pO2 65 L 70 L 76 L ABG HCO3 40 H 48 H 47 H ABG O2 Saturation 89 L 93 95 ABG Base Excess 10 H 19 H 21 H 06/13/24 06/14/24 06/15/24 07:22 04:32 03:45 ABG pH 7.46 H 7.48 H 7.46 H ABG pCO2 56 H 40 D 37 ABG pO2 80 L 64 L 71 L ABG HCO3 39 H 30 H 27 H ABG O2 Saturation 95 92 94 ABG Base Excess 13 H 6 H 3 06/15/24 06/15/24 06/15/24 10:17 12:20 14:20 ABG pH 7.01 L* D 7.00 L* 7.03 L* ABG pCO2 122 H* D 130 H* 125 H* ABG pO2 91 D 88 82 L ABG HCO3 31 H 32 H 33 H ABG O2 Saturation 88 L 88 L 87 L ABG Base Excess -3 -2 -1 06/15/24 06/15/24 06/16/24 15:55 20:39 00:35 ABG pH 7.03 L* 7.08 L* 7.10 L* ABG pCO2 121 H* 116 H* 118 H* ABG pO2 99 117 H 102 ABG HCO3 32 H 34 H 37 H ABG O2 Saturation 93 97 96 ABG Base Excess -1 2 4 H 06/16/24 06/16/24 06/17/24 04:45 08:55 05:06 ABG pH 7.17 L* 7.28 L D 7.33 L ABG pCO2 112 H* 88 H* D 96 H* ABG pO2 155 H D 98 D 126 H D ABG HCO3 41 H 41 H 50 H ABG O2 Saturation 99 H 98 99 H ABG Base Excess 9 H 12 H 21 H 06/17/24 06/17/24 06/18/24 10:58 13:55 04:16 ABG pH 7.29 L 7.29 L 7.33 L ABG pCO2 106 H* D 106 H* 86 H* D ABG pO2 58 L* D 61 L 77 L ABG HCO3 51 H 51 H 45 H ABG O2 Saturation 87 L 88 L 95 ABG Base Excess 21 H 21 H 17 H 06/19/24 06/20/24 06/21/24 04:18 04:49 04:06 ABG pH 7.42 7.36 7.44 ABG pCO2 63 H D 74 H* D 61 H D ABG pO2 66 L 55 L* 202 H D ABG HCO3 41 H 42 H 42 H ABG O2 Saturation 93 87 L 100 H ABG Base Excess 15 H 14 H 16 H 06/22/24 06/23/24 06/24/24 04:18 04:29 04:25 ABG pH 7.45 7.46 H 7.29 L D ABG pCO2 57 H 53 H 80 H* D ABG pO2 60 L D 99 D 88 ABG HCO3 40 H 38 H 38 H ABG O2 Saturation 91 99 H 96 ABG Base Excess 14 H 13 H 9 H 06/24/24 06/25/24 06/25/24 08:50 05:13 11:02 ABG pH 7.40 D 7.46 H Cancelled ABG pCO2 61 H D 53 H Cancelled ABG pO2 110 H D 66 L D Cancelled ABG HCO3 38 H 38 H Cancelled ABG O2 Saturation 99 H 94 Cancelled ABG Base Excess 12 H 13 H Cancelled 06/25/24 06/26/24 06/26/24 15:53 04:13 11:40 ABG pH 7.39 7.41 7.46 H ABG pCO2 53 H 48 43 ABG pO2 55 L* 58 L* 58 L* ABG HCO3 32 H 30 H 31 H ABG O2 Saturation 86 L 89 L 92 ABG Base Excess 6 H 5 H 6 H 06/27/24 06/28/24 06/28/24 04:17 04:24 06:22 ABG pH 7.48 H 7.27 L D 7.22 L ABG pCO2 39 72 H* D 83 H* D ABG pO2 49 L* 71 L D 82 L ABG HCO3 29 H 33 H 34 H ABG O2 Saturation 87 L 93 95 ABG Base Excess 5 H 5 H 4 H 06/28/24 06/29/24 06/30/24 10:18 04:21 07:57 ABG pH 7.32 L D 7.41 7.41 ABG pCO2 64 H D 63 H 62 H ABG pO2 76 L 81 L 59 L* D ABG HCO3 33 H 40 H 40 H ABG O2 Saturation 95 97 88 L ABG Base Excess 6 H 14 H 13 H Quality Measures Quality Measures sepsis Current suspected stage: sepsis Possible source: pulmonary, GI tract/intra-abdominal, genitourinary and skin/soft tissue Blood cultures ordered: yes Antibiotic ordered: Yes Assessment & Plan Assessment Current Active Medications: Generic Name Dose Route Start Last Admin Trade Name Freq PRN Reason Stop Dose Admin Acetaminophen 650 mg 06/26/24 15:16 06/30/24 03:26 Acetaminophen Munira 325 Mg/10 Ml Udc GT 07/26/24 15:15 650 mg Q4HR PRN Administration Pain Or Fever > 100.3 Albuterol/Ipratropium 3 ml 06/05/24 11:40 06/25/24 08:58 Albuterol/Ipratropium (Duoneb) Rt Munira 3 Ml Nebu INH 07/05/24 14:59 3 ml Q4HRRT PRN Administration Wheezing Artificial Tears 1 drop 06/18/24 12:00 06/30/24 05:45 Artificial Tears 225 Drop/15 Ml Btl BOTH EYES 07/18/24 11:59 1 drop QID JUAN JOSE Administration Calcium Carbonate 600 mg 06/28/24 13:00 06/29/24 15:05 Calcium Carbonate 600 Mg Tablet GT 07/28/24 12:59 600 mg QDAY@1300 JUAN JOSE Administration Clonazepam 2 mg 06/28/24 08:45 06/30/24 05:44 Clonazepam 0.5 Mg Tablet PO 07/19/24 08:44 2 mg TID JUAN JOSE Administration Dextrose 25 ml 06/06/24 08:20 Dextrose 50%-Water Inj 50 Ml Syringe IV 07/06/24 08:19 Q15MIN PRN BG 50-70 responsive npo pt Dextrose 50 ml 06/06/24 08:20 Dextrose 50%-Water Inj 50 Ml Syringe IV 07/06/24 08:19 Q15MIN PRN BG <50 OR BG <70 & pt unresponsive Docusate Sodium 100 mg 06/25/24 09:13 Docusate Sod Liqd 100 Mg/10 Ml Udc PO 07/22/24 08:59 BID PRN Constipation Protocol Emtricitabine/Tenofovir 1 tab 06/16/24 12:30 06/30/24 09:11 Emtricitabine 200 Mg/Tenofovir 300 Mg Tab (Non-Form) PO 07/16/24 12:29 1 tab QDAY JUAN JOSE Administration Ferrous Sulfate 325 mg 06/23/24 10:00 06/30/24 09:10 Ferrous Sulf 325 Mg Tablet PO 07/23/24 09:59 325 mg QDAY JUAN JOSE Administration Glucagon 1 mg 06/06/24 08:20 Glucagon Inj 1 Mg Vial IM Q15MIN PRN BG <70, and no IV access Linezolid 600 mg in 300 mls @ 300 mls/hr 06/27/24 09:00 06/30/24 09:10 Zyvox Ivpb IV 07/04/24 08:59 300 mls/hr Q12HR JUAN JOSE Administration Meropenem 1,000 mg/ Sodium 50 mls @ 100 mls/hr 06/27/24 08:45 06/30/24 05:46 Chloride IV 07/04/24 08:44 100 mls/hr Q8HR JUAN JOSE Administration Norepinephrine/Dextrose 8 mg in 250 mls @ 6.319 mls/hr 06/30/24 04:17 06/30/24 10:00 Levophed In D5w 8mg/250ml IV 07/30/24 04:16 0.14 mcg/kg/min .Q24H PRN 17.693 mls/hr PER PROTOCOL Titration Protocol 0.05 MCG/KG/MIN Lorazepam 2 mg 06/27/24 22:20 06/30/24 02:48 Lorazepam 2 Mg/Ml Vial IVP 07/02/24 22:19 2 mg Q3H PRN Administration ANXIETY Metoprolol Tartrate 25 mg 06/30/24 09:41 Metoprolol Tartrate 25 Mg Tablet PO 07/29/24 20:59 BID JUAN JOSE Oxycodone HCl 10 mg 06/28/24 00:17 06/30/24 05:44 Oxycodone Hcl 5 Mg Ir Tab PO 07/03/24 00:16 10 mg TID JUAN JOSE Administration Phenobarbital 90 mg 06/22/24 14:00 06/30/24 05:43 Phenobarbital Elix 20 Mg/5 Ml Udc GT 07/18/24 13:59 90 mg TID JUAN JOSE Administration Potassium Phos/Sodium Phos 2 packet 06/30/24 07:30 06/30/24 07:47 Naph,Kph Mbdb 1 Packet (1.5 Gm) PO 07/30/24 07:29 2 packet TID JUAN JOSE Administration Prednisone 10 mg 06/26/24 09:00 06/30/24 09:10 Prednisone 5 Mg Tablet PO 07/26/24 08:59 10 mg QDAY JUAN JOSE Administration Quetiapine Fumarate 100 mg 06/28/24 21:00 06/30/24 09:11 Quetiapine Fumarate 100 Mg Tablet PO 07/25/24 20:59 100 mg BID JUAN JOSE Administration Raltegravir 400 mg 06/29/24 08:30 06/30/24 06:18 Raltegravir 400 Mg Tablet NG 07/06/24 08:29 400 mg BID@0700,1900 JUAN JOSE Administration Trimethoprim/Sulfamethoxazole 20 ml 06/23/24 09:00 06/30/24 09:16 Trimethoprim/Sulfa Susp 1 Ml PO 06/22/25 12:00 20 ml QDAY JUAN JOSE Administration Plan #Metabolic alkalosis, primary-improved #Acute respiratory acidosis, secondary-improved #Hypophoshatemia #Hypomagnesemia, improved #Hyperkalemia, resolved Likely 2/2 to lung injury (increased Vd) due to severe ARDS 2/2 PJP in the setting of AIDS bicarb 39.2, phos low, nl mag, K normal good UOP pending tracheostomy Plan: -cont vent settings -veltassa -monior electrolytes, UOP - Patient's care was discussed with my attending physician, Dr. Duncan Awan MD Internal Medicine PGY-3 Attending Provider Attestation/Addendum Agree with assessment and plan and findings. Seen and examined. labs reviewed. Plan discussed with resident. Teo Song MD
[2024-06-30 10:19] LABS: Lactate (Lactic Acid) 1.6 mMol/L (0.4-2.0)
--- NOTE | 2024-06-30 10:39 | ESPR_ITS ---
Documentation for date of: 06/30/24 Subjective Subjective Interval history: This is a 39-year-old male who presented to the ER on 27 May. Initially he presented for shortness of breath cough and general malaise. Apparently he had been feeling unwell for the last 2 to 3 weeks. He did have some nonproductive cough. Chest x-ray showed bilateral diffuse infiltrates and the medicine team was contacted. He was admitted to the floor and placed on high flow nasal cannula initially at 100% FiO2 and started on antibiotics. He was started on fluconazole as well as Levaquin given that there was a high suspicion for underlying cocci pneumonia. He has had 2 rapid responses over the last 48 hours due to hypoxia and desatting. The patient is able to tolerate minimal movements prior to desatting. Today the ICU is consulted for further evaluation. The patient is currently on 80% FiO2 he is awake alert and oriented. He states that he has shortness of breath however minimal cough. He does complain of some upper abdominal/lower rib pain which he attributes to his recent cough. He denies any chest pain. Does note that he has had some night sweats and fever over the last several days. There has been no significant improvement since arrival 3 days ago. His respiratory status remains unchanged if not slightly worse. He is currently on isolation with airborne precautions behind a closed door. At this point in time due to an abundance of caution as well as closer observation and monitoring we will transfer to the ICU for ongoing management of his acute hypoxic respiratory failure. I did discuss with the patient the probable need for intubation in the near future. He is okay with intubation 05/31- no acute overnight events, decrease in FiO2 needs, feels better with less WOB today, afebrile, 06/05-patient had been returned to the floor where initially he did well. Apparently over the last 24 to 36 hours he has had an increase in FiO2 requirements with a rapid response called last night. Rapid response called again this morning. Patient stated that he felt tired and unable to keep up. He is on 100% FiO2. He desats with minimal exertion. The decision was made to bring him to the ICU for intubation. This was discussed with the patient while he was awake and his family as well. 06/06- overnight pt remained on NMB, versed/prop/fent. brisk UOP >100cc/hr , afebrile, labs this AM showed a K of 7.8 for which he received insulin/Ca/D50/kayexolate 06/07-patient underwent dialysis yesterday for refractory hyperkalemia, he remains on deep sedation however off of propofol and off of paralytic. Continues with a good urinary output. Afebrile, have been able to come down on his FiO2 however persistent bilateral infiltrates severe on exam without conclusive underlying etiology as of this point in time. 06/08-no acute overnight events, this a.m. attempted to decrease sedation however patient became agitated and desatted. Required increased to 100% FiO2. When patient was suctioned blood was returned from the ET tube. Patient required paralytic and bagging in order to improve his sats. 06/23-has had a prolonged hospital course thus far. Was unable to be weaned from the vent. He was scheduled for tracheostomy today which took place with Dr Ryan. His Versed drip was stopped today. He remains on propofol and fentanyl. He is on multiple p.o. medications for severe agitation. Net negative over the last 24 hours however net positive since hospital stay. Afebrile 06/24- s/p trach yesterday, scheduled for PEG today, afebrile, vent dysynchrony overnight reason for which his fent was increased, off of prop. good UOP, afebrile 06/25- no acute overnight evetns, s/p PEG yesterday, afebrile, good UOP, intermittent episodes of tachypnea, attempting to wean fent off 06/26-off of fentanyl, yesterday spiked a fever of 101. Blood cultures were sent. No other acute overnight events 06/27- overnight became hypotensive receiving 2lts of IVF and then requiring vasopressors. He is clammy and diaphoretic today, good UOP 06/28-overnight patient appears to have come off of vasopressors the BP is currently low normal. Continues to have low-grade temp. It was found overnight that the patient's narcotics had fallen off of his med rec therefore some of his symptoms may have been related to withdrawal. His meds were reinstated. He was very tachycardic overnight. 06/29- no acute overnight events, off pressors, off all drips, Tm 103.9 yesterday morning 12/12- overnight spiked a temp again and dropped his pressures. He received 2lts of IVF however was still hypotensive and therefore started on levophed once more. He has remained on meropenem/linezolid for the last 4 days. trialled yesterday on PSV and lasted for ~4hrs Critical Care Note Critical care time (min.): 40 Exam Vital Signs Temp Pulse Resp BP Pulse Ox O2 Del Method O2 Flow Rate 98.3 F 94 33 H 132/78 H 102 H Mechanical Ventilation 40 06/30/24 08:00 06/30/24 10:37 06/30/24 01:15 06/30/24 10:37 06/30/24 10:37 06/30/24 08:00 06/09/24 12:16 FiO2 60 06/30/24 10:37 Narrative Exam Gen- sedated though with intermittent agitation, nl body habitus, chronically ill appearing HEENT- NC/AT, mucosa hydrated, sclera anicteric, trach in place Chest- dry crackles, HRRR, tachycardic, no increase in WOB Abd- s/nt/bs+, PEG in place Ext- edema of RUE, LE thin , pulses palp, no clubbing, no mottling, Drips levo Vent AC VC Physical Exam Completion Physical Exam Complete?: Yes 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 06/30/24 06:15 06/30/24 06:15 Labs: Laboratory Results - last 24 hr 06/29/24 06/30/24 06/30/24 23:10 06:15 07:57 WBC 7.6 8.7 RBC 3.57 L 3.34 L Hgb 8.7 L 8.1 L Hct 28.3 L 26.5 L MCV 79 L 79 L MCH 24.4 L 24.3 L MCHC 30.7 L 30.6 L RDW Std Deviation 73.3 H 70.4 H Plt Count 274 321 D Neut % (Auto) 61 71 Lymph % (Auto) 22 12 [place] % (Auto) 8 8 Eos % (Auto) 7 7 Baso % (Auto) 1 1 Neut # (Auto) 4.6 6.1 Lymph # (Auto) 1.7 1.0 [place] # (Auto) 0.6 0.7 Eos # (Auto) 0.5 0.6 H Baso # (Auto) 0.1 0.0 Immature Gran # (Auto) 0.11 H 0.13 H Absolute Nucleated RBC 0.00 0.00 Immature Gran % 2 H 2 H Nucleated RBC % 0 0 Puncture Site Left Radial ABG pH 7.41 ABG pCO2 62 H ABG pO2 59 L* D ABG HCO3 40 H ABG O2 Saturation 88 L ABG Base Excess 13 H FiO2 60 Sodium 133 L 135 L Potassium 4.9 D 3.7 D Chloride 94 L 95 L Carbon Dioxide 37.3 H 33.8 H Anion Gap 2 L 6 L BUN 28 H 25 H Creatinine 0.7 0.6 Estim Creat Clear Calc 129.1 150.6 eGFR > 60 > 60 BUN/Creatinine Ratio 40 H 42 H Glucose 111 H 105 Calculated Osmolality 272 L 274 L Lactic Acid 1.8 2.7 H Calcium 7.8 L 7.2 L Corrected Calcium 9.0 8.4 L Phosphorus 1.2 L Magnesium 1.6 Total Bilirubin 0.3 0.3 AST 392 H 601 H* ALT 225 H 364 H Alkaline Phosphatase 237 H D 295 H D Total Protein 5.3 L 5.0 L Albumin 2.5 L 2.5 L Globulin 2.8 2.5 Albumin/Globulin Ratio 0.9 L 1.0 L Procalcitonin 1.03 H 06/30/24 10:10 WBC RBC Hgb Hct MCV MCH MCHC RDW Std Deviation Plt Count Neut % (Auto) Lymph % (Auto) [place] % (Auto) Eos % (Auto) Baso % (Auto) Neut # (Auto) Lymph # (Auto) [place] # (Auto) Eos # (Auto) Baso # (Auto) Immature Gran # (Auto) Absolute Nucleated RBC Immature Gran % Nucleated RBC % Puncture Site ABG pH ABG pCO2 ABG pO2 ABG HCO3 ABG O2 Saturation ABG Base Excess FiO2 Sodium Potassium Chloride Carbon Dioxide Anion Gap BUN Creatinine Estim Creat Clear Calc eGFR BUN/Creatinine Ratio Glucose Calculated Osmolality Lactic Acid 1.6 Calcium Corrected Calcium Phosphorus Magnesium Total Bilirubin AST ALT Alkaline Phosphatase Total Protein Albumin Globulin Albumin/Globulin Ratio Procalcitonin Assessment & Plan Problem List (1) Acute respiratory failure with hypoxia: Status: Acute Additional Assessment Additional Assessment: In brief this is a 39y M admitted for SOB and acute hypoxic resp failure with b/l PNA. 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 He was started on p.o. Seroquel and phenobarbital. He is also on Klonopin and oxycodone. - remains intermittently agitated but profoundly encephalopathic -EEG still pending -MRI did not show any significant injury or lesions - no change in mentation CV Septic shock- on and off levophed - cont on meropenem and linezolid day #4 - Ucx with MDR staph epi which is sensitive to linezolid - sputum cx with staph haemolyticus also MDR sensitive to linezolid - will titrate abx once cx results final - LA elevated this AM -> cont to follow Tachycardia- unclear etiology - rate goes up to 140s and 150s independant of temp - trialled morphine for air hunger, dilaudid for pain, ativan for anxiety, BB all with only a 10 to 15 beat change in rate Resp Chronic hypoxic resp failure- s/p trach 06/23 - intermittent PSV trials in an attempt to cont to wean from vent - tolerates 2-3 hrs thus far - no significant change PCP PNA- tx with bactrim and steroids - improved - Bactrim DS for PCP proph to be continued ARDS- improved with less FiO2 needs - unclear if pt will ever improve sufficiently to come off vent Renal HypoNa- 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 monitor - mild WILL- resolved HypoPhos-repleted daily - d/w dietary for supplements Hypokalemia-resolved GI Transaminitis- Hep viral panel is neg, -increased today to 600 - may be some component of shock liver - check hepatotoxicity of current med regimen - ? cholestasis GI proph- PPI Endo Hypoglycemia-resolved HyperTrig- may be 2/2 prop -> stopped yesterday - recheck in a few days Heme Microcytic Anemia-iron deficiency anemia - on PO iron - stable DVT right upper extremity -heparin drip ID PNA-secondary to PCP VAP - grew out VRE and staph hemolyticus on 06/09 - seen by ID and recs noted HIV/ AIDS- on HAART tx -> fu with ID - JAYME proph if CD4 <50 UTI- Ucx with GPC -awaiting ID and sensitivities case d/w ICU team will need placement labs, imaging, records reviewed ~40ccmin required for eval, exam, review, intervention , discussion and formulation of POC for this critically ill pt with resp failure at high risk for further and ongoing decompensation Provider Notation Provider Notation: Although this document has been carefully reviewed, there may still be some phonetic and other typographical errors. These errors are purely grammatical due to imperfections in the software program and should not be construed in any way to compromise the substance of the patient's medical care during this visit. Thank you for the opportunity and privilege in assisting you with this patient's care and management.
--- NOTE | 2024-06-30 11:19 | XR_ITS ---
Examination: Abdomen sonogram, Limited Date and time of exam: June 30, 2024 1240 hours INDICATIONS: Elevated liver function tests on laboratory examination today Technique: Real-time brandon scale transabdominal sonographic images of the upper abdomen obtained. Findings: Gallbladder sludge No gallstones Normal gallbladder wall Normal common bile duct 0.3 cm Pancreatic head 2.0 cm Liver 18.9 cm no liver lesions Normal hepatopedal portal venous flow Patent IVC IMPRESSION: Gallbladder sludge, negative for cholelithiasis, negative for cholecystitis Normal common bile duct
[2024-06-30] MEDS: CALCIUM CARBONATE 600 MG TABLET GT (12:40)
--- NOTE | 2024-06-30 13:25 | PC.SS ---
Update: Patient remains TRACH/PEG. Patient became hypotensive resulting in pressor administration. Fever has re-occurred.
--- NOTE | 2024-06-30 14:39 | PD.RESPRO ---
Documentation for date of: 06/30/24 Subjective Subjective Interval history: 06/26/2024: The patient was examined and evaluated at the bedside this morning. Patient is off of any sedatives or pressor support. Patient is mechanically ventilated through tracheostomy tube. The patient had 1 episode of fever overnight, and blood culture is pending. His heart rate has been in the range of 120s to 130s with RR between 28-36, saturating 92% on FiO2 50%. The patient received 2 mg IV hydromorphone x 1. His hemoglobin has been stable at 8.9, we will continue with oral ferrous sulfate 325 Mg daily, ABG revealed pH 7.46, pCO2 43, pO2 58 and bicarb 31. He received 1 dose of Diamox 500 Mg IV, sodium 130, potassium 3.5 and Veltassa was discontinued, phosphorus was 1.4 and we will repeat it further. The patient will be downgraded to telemetry unit we will continue with enteral sedatives phenobarbital 90 Mg 3 times daily, clonazepam 2 mg 3 times daily, oxycodone 10 mg 3 times daily and Seroquel 100 Mg twice daily. His sedatives will be continued for 2 weeks at this point and after that the plan is to taper down the sedatives. We will continue with HAART, micafungin until fungal culture is negative and continue with Bactrim DS daily for PCP pneumonia prophylaxis. 06/27/2024: Patient seen and examined in bedside in the ICU. Overnight patient developed hypotension, tachycardia, tachypnea, fever, was scheduled for downgrade but was readmitted to ICU for septic shock requiring pressors. Patient is mechanically ventilated via trach tube. New blood cultures, sputum cultures, urine cultures collected. Patient started on linezolid and meropenem. Continue enteral sedation. Repleted potassium and phosphorus. 06/28/2024: The patient was examined and evaluated at the bedside this morning. He continues to be mechanically ventilated through tracheostomy tube. Overnight patient did not had any fever. His urine output was about 3 L and he is negative by about 850 cc. His heart rate was in 150's, that trended down to 130s, further trended down to 100s. This morning ABG was significant for pH of 7.27 that trended down to pH of 7.2 with pCO2 of 72 and 83 respectively. Tidal volume was increased to 450 cc, and later ABG revealed pH 7.32 with pCO2 64. Brain MRI done yesterday was significant only for bilateral mastoiditis. EEG results pending. Blood cultures has been negative for 24 hours, Dr Hope was informed about restarting the patient on linezolid and meropenem, and he recommended continuing steroid for longer duration. We will continue with internal sedation. His corrected calcium was 8.4 and was started on oral calcium carbonate. We will follow-up on blood culture results and narrow down antibiotics as needed. 06/29/2024: The patient was examined and evaluated at the bedside this morning. He was started on automatic mode ventilation through tracheostomy tube and he tolerated it well. Patient did not had any fever overnight. His urine culture revealed positive for GPC, final cultures pending. His heart rate has been ranging from 120s to 150s with RR 23, saturating 96% on FiO2 40. Hemoglobin has been stable 9.4, ABG revealing pCO2 63, pO2 81 and bicarb 40 with ABG O2 saturation 97%. He continues to have mild hyponatremia with sodium of 133, and phosphorus 1.5 despite repeating multiple times. His triglyceride continues to decrease and today it is 183. The patient is to be continued on internal sedatives with phenobarbital 90 Mg 3 times daily, Ativan 2 Mg 3 times daily and oxycodone 10 Mg 3 times daily at least for 2 weeks, then slowly taper down. And also continue on prednisone 10 Mg daily for at least 1 week and then taper down. 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 06/30/2024: The patient was examined and evaluated at the bedside this morning. He was saturating well on mechanical ventilation through tracheostomy tube with heart rate in 70s. Overnight, patient developed 2 episodes of fever. Initially his MAP was less than 65, and sepsis protocol was initiated. 2 L of IV bolus crystalloid fluid was given. Blood culture, urine culture were sent, CXR done. Patient initially improved from hypotension with MAP of greater than 65, but earlier this morning the patient started dropping his blood pressure with MAP less than 65, and was started on Levophed drip. He is CBC has been at baseline, and ABG revealed pcO2 62, pO2 59 with bicarb of 40. His sodium continues to be in mild hyponatremic range with 135, bicarb 33.8. Corrected calcium 8.4 with phosphorus 1.2 which were repleted. His AST and ALT has been trending up from yesterday, 601/364 with ALP 295 and albumin 2.5. Pro-Jayy was 1.03. Chest/abdomen/pelvis CT with contrast was done that was significant for severe bilateral pneumonia with ARDS pattern, pneumomediastinum with hepatosplenomegaly. US liver was significant for gallbladder sludge, negative for cholelithiasis or cholecystitis. Exam Vital Signs Temp Pulse Resp BP Pulse Ox O2 Del Method O2 Flow Rate 98.3 F 92 33 H 111/72 92 L Mechanical Ventilation 40 06/30/24 08:00 06/30/24 11:00 06/30/24 01:15 06/30/24 11:00 06/30/24 11:00 06/30/24 08:00 06/09/24 12:16 FiO2 60 06/30/24 10:37 Narrative Exam GEN: Critically ill, not acutely distressed, sedated and mechanically ventilated. Neuro: Deferred due to sedation. HEENT: NCAT, tracheostomy tube on appropriate position, mild abrasion over lower lips, improving. CVS: Mildly tachycardic, no M/R/G. No JVD Respi: Mechanically ventilated, b/l breath sounds heard, mild wheezing, no crackles. ABD: Soft, no grimace to palpation, bowel sounds present in all 4 quadrants, PEG tube in appropriate place Skin: warm, dry and intact. Extremities: Pulses 2+ in all extremities, BUE edema, ruptured vesicles 1-2 cm on the rt forearm surface that have been healing. Objective Labs 06/30/24 06:15 06/30/24 06:15 Labs: Laboratory Results - last 24 hr 06/29/24 06/30/24 06/30/24 23:10 06:15 07:57 WBC 7.6 8.7 RBC 3.57 L 3.34 L Hgb 8.7 L 8.1 L Hct 28.3 L 26.5 L MCV 79 L 79 L MCH 24.4 L 24.3 L MCHC 30.7 L 30.6 L RDW Std Deviation 73.3 H 70.4 H Plt Count 274 321 D Neut % (Auto) 61 71 Lymph % (Auto) 22 12 Dickson % (Auto) 8 8 Eos % (Auto) 7 7 Baso % (Auto) 1 1 Neut # (Auto) 4.6 6.1 Lymph # (Auto) 1.7 1.0 Dickson # (Auto) 0.6 0.7 Eos # (Auto) 0.5 0.6 H Baso # (Auto) 0.1 0.0 Immature Gran # (Auto) 0.11 H 0.13 H Absolute Nucleated RBC 0.00 0.00 Immature Gran % 2 H 2 H Nucleated RBC % 0 0 Puncture Site Left Radial ABG pH 7.41 ABG pCO2 62 H ABG pO2 59 L* D ABG HCO3 40 H ABG O2 Saturation 88 L ABG Base Excess 13 H FiO2 60 Sodium 133 L 135 L Potassium 4.9 D 3.7 D Chloride 94 L 95 L Carbon Dioxide 37.3 H 33.8 H Anion Gap 2 L 6 L BUN 28 H 25 H Creatinine 0.7 0.6 Estim Creat Clear Calc 129.1 150.6 eGFR > 60 > 60 BUN/Creatinine Ratio 40 H 42 H Glucose 111 H 105 Calculated Osmolality 272 L 274 L Lactic Acid 1.8 2.7 H Calcium 7.8 L 7.2 L Corrected Calcium 9.0 8.4 L Phosphorus 1.2 L Magnesium 1.6 Total Bilirubin 0.3 0.3 AST 392 H 601 H* ALT 225 H 364 H Alkaline Phosphatase 237 H D 295 H D Total Protein 5.3 L 5.0 L Albumin 2.5 L 2.5 L Globulin 2.8 2.5 Albumin/Globulin Ratio 0.9 L 1.0 L Procalcitonin 1.03 H 06/30/24 10:10 WBC RBC Hgb Hct MCV MCH MCHC RDW Std Deviation Plt Count Neut % (Auto) Lymph % (Auto) Dickson % (Auto) Eos % (Auto) Baso % (Auto) Neut # (Auto) Lymph # (Auto) Dickson # (Auto) Eos # (Auto) Baso # (Auto) Immature Gran # (Auto) Absolute Nucleated RBC Immature Gran % Nucleated RBC % Puncture Site ABG pH ABG pCO2 ABG pO2 ABG HCO3 ABG O2 Saturation ABG Base Excess FiO2 Sodium Potassium Chloride Carbon Dioxide Anion Gap BUN Creatinine Estim Creat Clear Calc eGFR BUN/Creatinine Ratio Glucose Calculated Osmolality Lactic Acid 1.6 Calcium Corrected Calcium Phosphorus Magnesium Total Bilirubin AST ALT Alkaline Phosphatase Total Protein Albumin Globulin Albumin/Globulin Ratio Procalcitonin ABG Interpretation ABG results: 05/27/24 05/29/24 05/29/24 23:37 10:44 22:08 ABG pH 7.51 H 7.50 H 7.48 H ABG pCO2 28 L 32 32 ABG pO2 75 L 79 L 145 H D ABG HCO3 23 25 24 ABG O2 Saturation 96 95 98 ABG Base Excess 0 2 1 05/30/24 05/31/24 06/04/24 08:45 04:54 02:10 ABG pH 7.47 H 7.45 7.45 ABG pCO2 35 38 36 ABG pO2 86 D 82 L 139 H ABG HCO3 26 26 25 ABG O2 Saturation 97 96 98 ABG Base Excess 2 2 1 06/04/24 06/05/24 06/05/24 18:16 11:36 12:59 ABG pH 7.44 7.11 L* D 7.20 L ABG pCO2 36 94 H* D 68 H D ABG pO2 80 L D 150 H D 121 H D ABG HCO3 24 30 H 26 ABG O2 Saturation 94 97 97 ABG Base Excess 0 -2 -3 06/05/24 06/06/24 06/06/24 19:25 04:13 15:27 ABG pH 7.22 L 7.27 L 7.30 L ABG pCO2 64 H 57 H 60 H ABG pO2 122 H 153 H D 74 L D ABG HCO3 26 26 29 H ABG O2 Saturation 97 99 H 92 ABG Base Excess -3 -2 2 06/07/24 06/07/24 06/08/24 03:55 09:59 04:20 ABG pH 7.41 D 7.43 7.45 ABG pCO2 56 H 55 H 50 H ABG pO2 293 H D 78 L D 75 L ABG HCO3 36 H 37 H 35 H ABG O2 Saturation 99 H 95 94 ABG Base Excess 10 H 11 H 10 H 06/08/24 06/08/24 06/08/24 11:05 11:50 13:18 ABG pH 7.17 L* D 7.10 L* 7.15 L* ABG pCO2 95 H* D 115 H* D 88 H* D ABG pO2 89 75 L 72 L ABG HCO3 34 H 36 H 31 H ABG O2 Saturation 92 84 L 85 L ABG Base Excess 3 4 H 0 06/08/24 06/09/24 06/09/24 17:02 01:33 03:15 ABG pH 7.18 L* 7.22 L 7.27 L ABG pCO2 50 H D 91 H* D 82 H* ABG pO2 82 L 105 D 86 ABG HCO3 19 L 37 H 38 H ABG O2 Saturation 93 97 95 ABG Base Excess -9 L 7 H 9 H 06/09/24 06/09/24 06/10/24 05:08 12:52 04:40 ABG pH 7.31 L 7.33 L 7.30 L ABG pCO2 75 H* 57 H D 78 H* D ABG pO2 97 158 H D 65 L D ABG HCO3 38 H 30 H 38 H ABG O2 Saturation 97 99 H 90 L ABG Base Excess 10 H 3 9 H 06/10/24 06/11/24 06/12/24 09:40 04:19 04:15 ABG pH 7.27 L 7.35 7.48 H D ABG pCO2 88 H* D 86 H* 63 H D ABG pO2 65 L 70 L 76 L ABG HCO3 40 H 48 H 47 H ABG O2 Saturation 89 L 93 95 ABG Base Excess 10 H 19 H 21 H 06/13/24 06/14/24 06/15/24 07:22 04:32 03:45 ABG pH 7.46 H 7.48 H 7.46 H ABG pCO2 56 H 40 D 37 ABG pO2 80 L 64 L 71 L ABG HCO3 39 H 30 H 27 H ABG O2 Saturation 95 92 94 ABG Base Excess 13 H 6 H 3 06/15/24 06/15/24 06/15/24 10:17 12:20 14:20 ABG pH 7.01 L* D 7.00 L* 7.03 L* ABG pCO2 122 H* D 130 H* 125 H* ABG pO2 91 D 88 82 L ABG HCO3 31 H 32 H 33 H ABG O2 Saturation 88 L 88 L 87 L ABG Base Excess -3 -2 -1 06/15/24 06/15/24 06/16/24 15:55 20:39 00:35 ABG pH 7.03 L* 7.08 L* 7.10 L* ABG pCO2 121 H* 116 H* 118 H* ABG pO2 99 117 H 102 ABG HCO3 32 H 34 H 37 H ABG O2 Saturation 93 97 96 ABG Base Excess -1 2 4 H 06/16/24 06/16/24 06/17/24 04:45 08:55 05:06 ABG pH 7.17 L* 7.28 L D 7.33 L ABG pCO2 112 H* 88 H* D 96 H* ABG pO2 155 H D 98 D 126 H D ABG HCO3 41 H 41 H 50 H ABG O2 Saturation 99 H 98 99 H ABG Base Excess 9 H 12 H 21 H 06/17/24 06/17/24 06/18/24 10:58 13:55 04:16 ABG pH 7.29 L 7.29 L 7.33 L ABG pCO2 106 H* D 106 H* 86 H* D ABG pO2 58 L* D 61 L 77 L ABG HCO3 51 H 51 H 45 H ABG O2 Saturation 87 L 88 L 95 ABG Base Excess 21 H 21 H 17 H 06/19/24 06/20/24 06/21/24 04:18 04:49 04:06 ABG pH 7.42 7.36 7.44 ABG pCO2 63 H D 74 H* D 61 H D ABG pO2 66 L 55 L* 202 H D ABG HCO3 41 H 42 H 42 H ABG O2 Saturation 93 87 L 100 H ABG Base Excess 15 H 14 H 16 H 06/22/24 06/23/24 06/24/24 04:18 04:29 04:25 ABG pH 7.45 7.46 H 7.29 L D ABG pCO2 57 H 53 H 80 H* D ABG pO2 60 L D 99 D 88 ABG HCO3 40 H 38 H 38 H ABG O2 Saturation 91 99 H 96 ABG Base Excess 14 H 13 H 9 H 06/24/24 06/25/24 06/25/24 08:50 05:13 11:02 ABG pH 7.40 D 7.46 H Cancelled ABG pCO2 61 H D 53 H Cancelled ABG pO2 110 H D 66 L D Cancelled ABG HCO3 38 H 38 H Cancelled ABG O2 Saturation 99 H 94 Cancelled ABG Base Excess 12 H 13 H Cancelled 06/25/24 06/26/24 06/26/24 15:53 04:13 11:40 ABG pH 7.39 7.41 7.46 H ABG pCO2 53 H 48 43 ABG pO2 55 L* 58 L* 58 L* ABG HCO3 32 H 30 H 31 H ABG O2 Saturation 86 L 89 L 92 ABG Base Excess 6 H 5 H 6 H 06/27/24 06/28/24 06/28/24 04:17 04:24 06:22 ABG pH 7.48 H 7.27 L D 7.22 L ABG pCO2 39 72 H* D 83 H* D ABG pO2 49 L* 71 L D 82 L ABG HCO3 29 H 33 H 34 H ABG O2 Saturation 87 L 93 95 ABG Base Excess 5 H 5 H 4 H 06/28/24 06/29/24 06/30/24 10:18 04:21 07:57 ABG pH 7.32 L D 7.41 7.41 ABG pCO2 64 H D 63 H 62 H ABG pO2 76 L 81 L 59 L* D ABG HCO3 33 H 40 H 40 H ABG O2 Saturation 95 97 88 L ABG Base Excess 6 H 14 H 13 H Quality Measures Quality Measures sepsis Current suspected stage: sepsis Possible source: pulmonary, GI tract/intra-abdominal, genitourinary and skin/soft tissue Blood cultures ordered: yes Antibiotic ordered: Yes Assessment & Plan Assessment Current Active Medications: Generic Name Dose Route Start Last Admin Trade Name Freq PRN Reason Stop Dose Admin Acetaminophen 650 mg 06/26/24 15:16 06/30/24 03:26 Acetaminophen Munira 325 Mg/10 Ml Udc GT 07/26/24 15:15 650 mg Q4HR PRN Administration Pain Or Fever > 100.3 Albuterol/Ipratropium 3 ml 06/05/24 11:40 06/25/24 08:58 Albuterol/Ipratropium (Duoneb) Rt Munira 3 Ml Nebu INH 07/05/24 14:59 3 ml Q4HRRT PRN Administration Wheezing Artificial Tears 1 drop 06/18/24 12:00 06/30/24 12:44 Artificial Tears 225 Drop/15 Ml Btl BOTH EYES 07/18/24 11:59 1 drop QID JUAN JOSE Administration Calcium Carbonate 600 mg 06/28/24 13:00 06/30/24 12:40 Calcium Carbonate 600 Mg Tablet GT 07/28/24 12:59 600 mg QDAY@1300 JUAN JOSE Administration Clonazepam 2 mg 06/28/24 08:45 06/30/24 14:21 Clonazepam 0.5 Mg Tablet PO 07/19/24 08:44 2 mg TID JUAN JOSE Administration Dextrose 25 ml 06/06/24 08:20 Dextrose 50%-Water Inj 50 Ml Syringe IV 07/06/24 08:19 Q15MIN PRN BG 50-70 responsive npo pt Dextrose 50 ml 06/06/24 08:20 Dextrose 50%-Water Inj 50 Ml Syringe IV 07/06/24 08:19 Q15MIN PRN BG <50 OR BG <70 & pt unresponsive Docusate Sodium 100 mg 06/25/24 09:13 Docusate Sod Liqd 100 Mg/10 Ml Udc PO 07/22/24 08:59 BID PRN Constipation Protocol Emtricitabine/Tenofovir 1 tab 06/16/24 12:30 06/30/24 09:11 Emtricitabine 200 Mg/Tenofovir 300 Mg Tab (Non-Form) PO 07/16/24 12:29 1 tab QDAY JUAN JOSE Administration Ferrous Sulfate 325 mg 06/23/24 10:00 06/30/24 09:10 Ferrous Sulf 325 Mg Tablet PO 07/23/24 09:59 325 mg QDAY JUAN JOSE Administration Glucagon 1 mg 06/06/24 08:20 Glucagon Inj 1 Mg Vial IM Q15MIN PRN BG <70, and no IV access Linezolid 600 mg in 300 mls @ 300 mls/hr 06/27/24 09:00 06/30/24 09:10 Zyvox Ivpb IV 07/04/24 08:59 300 mls/hr Q12HR JUAN JOSE Administration Meropenem 1,000 mg/ Sodium 50 mls @ 100 mls/hr 06/27/24 08:45 06/30/24 14:21 Chloride IV 07/04/24 08:44 100 mls/hr Q8HR JUAN JOSE Administration Norepinephrine/Dextrose 8 mg in 250 mls @ 6.319 mls/hr 06/30/24 04:17 06/30/24 10:00 Levophed In D5w 8mg/250ml IV 07/30/24 04:16 0.14 mcg/kg/min .Q24H PRN 17.693 mls/hr PER PROTOCOL Titration Protocol 0.05 MCG/KG/MIN Lorazepam 2 mg 06/27/24 22:20 06/30/24 12:40 Lorazepam 2 Mg/Ml Vial IVP 07/02/24 22:19 2 mg Q3H PRN Administration ANXIETY Metoprolol Tartrate 25 mg 06/30/24 09:41 Metoprolol Tartrate 25 Mg Tablet PO 07/29/24 20:59 BID JUAN JOSE Oxycodone HCl 10 mg 06/28/24 00:17 06/30/24 14:21 Oxycodone Hcl 5 Mg Ir Tab PO 07/03/24 00:16 10 mg TID JUAN JOSE Administration Phenobarbital 90 mg 06/22/24 14:00 06/30/24 14:28 Phenobarbital Elix 20 Mg/5 Ml Udc GT 07/18/24 13:59 90 mg TID JUAN JOSE Administration Potassium Phos/Sodium Phos 2 packet 06/30/24 07:30 06/30/24 14:20 [facility] Mbdb 1 Packet (1.5 Gm) PO 07/30/24 07:29 2 packet TID JUAN JOSE Administration Prednisone 10 mg 06/26/24 09:00 06/30/24 09:10 Prednisone 5 Mg Tablet PO 07/26/24 08:59 10 mg QDAY JUAN JOSE Administration Quetiapine Fumarate 100 mg 06/28/24 21:00 06/30/24 09:11 Quetiapine Fumarate 100 Mg Tablet PO 07/25/24 20:59 100 mg BID JUAN JOSE Administration Raltegravir 400 mg 06/29/24 08:30 06/30/24 06:18 Raltegravir 400 Mg Tablet NG 07/06/24 08:29 400 mg BID@0700,1900 JUAN JOSE Administration Trimethoprim/Sulfamethoxazole 20 ml 06/23/24 09:00 06/30/24 09:16 Trimethoprim/Sulfa Susp 1 Ml PO 06/22/25 12:00 20 ml QDAY JUAN JOSE Administration Plan 39-year-old male patient with no PMHx who initially presented to [facility] on 05/27/2024 with a chief complaint of shortness of breath and cough, with associated chills, body aches, generalized weakness, fever, and night sweats beginning weeks prior but progressively worsening over a few days is currently being treated for acute hypoxic respiratory failure secondary to PCP pneumonia that was complicated by ventilator associated pneumonia. Patient is currently on tracheostomy tube and mechanically ventilated. 06/30/2024: The patient was examined and evaluated at the bedside this morning. He was saturating well on mechanical ventilation through tracheostomy tube with heart rate in 70s. Overnight, patient developed 2 episodes of fever. Initially his MAP was less than 65, and sepsis protocol was initiated. 2 L of IV bolus crystalloid fluid was given. Blood culture, urine culture were sent, CXR done. Patient initially improved from hypotension with MAP of greater than 65, but earlier this morning the patient started dropping his blood pressure with MAP less than 65, and was started on Levophed drip. He is CBC has been at baseline, and ABG revealed pcO2 62, pO2 59 with bicarb of 40. His sodium continues to be in mild hyponatremic range with 135, bicarb 33.8. Corrected calcium 8.4 with phosphorus 1.2 which were repleted. His AST and ALT has been trending up from yesterday, 601/364 with ALP 295 and albumin 2.5. Pro-Jayy was 1.03. Chest/abdomen/pelvis CT with contrast was done that was significant for severe bilateral pneumonia with ARDS pattern, pneumomediastinum with hepatosplenomegaly. US liver was significant for gallbladder sludge, negative for cholelithiasis or cholecystitis. As the patient was found to have pneumomediastinum, the decision was made to start the patient on sedation as increased respiratory effort can further worsen it. NEURO Patient is sedated and mechanically ventilated through tracheostomy tube. 06/05/2024 Patient was intubated, sedated, and paralyzed for ARDS. Currently switched IV sedatives to enteral sedatives with phenobarbital 90 Mg 3 times daily, clonazepam 2 Mg 3 times daily and oxycodone 10 Mg 3 times daily. -Patient was started back on fentanyl drip for further sedation as patient developed pneumomediastinum on 06/30/2024. -MRI showed no acute hemorrhage, infarct, mass effect, or midline shift. No findings diagnostic for demyelinating disease. EEG was normal. #Fever Patient repeat fever overnight along with hypotension, tachypnea, tachycardia. New septic shock. Multiple cultures pending, antibiotics broadened. -Treat underlying condition -Tylenol as needed CARDIO #Right upper extremity DVT. -Doppler US right upper extremity 06/17/24: revealed RUE DVT -On Heparin Drip, can be switched to oral anticoagulants #Sinus tachycardia Tachycardia most likely secondary to respiratory distress and agitation 2/2 AHRF in the setting of tapering down sedatives -Continue to treat the underlying cause -We will try fluid challenge with 250 cc of IV LR if sinus tachycardia persist to rule out hypovolemia. #Shock Most likely septic shock as sepsis alert was initiated overnight. Patient also seems not to be fluid responsive as pulse pressure variation is 3-5, there is less than 15, ruling out hypovolemic shock. Patient presented with septic shock secondary to severe extensive bilateral pneumonia. After resolution of initial septic shock, patient developed new hypotension, tachycardia, tachypnea, fevers indicated of septic shock. -Pressor support as needed -Linezolid (started 06/27- -Meropenem (started 06/27- -Follow-up blood, urine, sputum cultures, and narrow down after results PULM #Chronic hypoxic respiratory failure Secondary to #Bilateral pneumocystis jirovecii pneumonia, resolved #Healthcare associated pneumonia, resolved, resolved #Ventilator associated pneumonia, resolved #Chronic respiratory distress syndrome as a consequence of ARDS 2/2 PCP pneumonia #S/P Tracheostomy #Pneumomediastinum Patient presented with dyspnea and cough, requiring 4L NC on first ED evaluation, and history of chills, body aches, generalized weakness, fever, and night sweats progressively worsening over the prior weeks. Approx 20-pack year smoking history, occasional marijuana. 06/17/2024 oxygenation and hypercapnia improved 06/30/2024: CT chest/abdomen/pelvis revealed pneumomediastinum On linezolid 600 mg q12h 06/15/24-06/22/24 Plan: -Linezolid (started 06/27) and Meropenum (startd 06/27) -Continue with daily Bactrim -Continue with prednisolone 10 mg daily for at least 7 more days -ABG as needed -Patient will be further sedated with fentanyl drip, may require further Precedex drip if there is persistent increased work of breathing in the setting of pneumomediastinum. GI GI prophylaxis: None as patient got extubated and is on tracheostomy tube. #Elevated LFTs, likely 2/2 shock liver Likely due to propofol and bactrim. Mildly elevated, liver US 05/30/2024 showed normal gallbladder and hepatomegaly without lesions or evidence of obstructions. Hep panel negative. LFTs downtrended compared to 06/06/24. 06/15/2024 Floyd in LFTs with AST 303, ALT 420, Tbili 1.3, therefore right upper quadrant US ordered, negative for cholecystitis/cholelithiasis, hepatitis panel negative. No obvious changes on physical exam. 06/20/24: LFT AST/ALT/ALP : 99/123/118 06/30/2024: AST/ALT/ALP 601/364/295, likely in the setting of shock liver as patient had MAP of less than 65 overnight. Other HAART medications currently being used tenofovir, increased timing and raltegravir less likely to cause significant liver injury. Clonazepam is metabolized by liver, but would lead to increasing bilirubin level as well. Plan: -Continue monitoring #Hypertriglyceridemia, trending down More likely secondary to propofol use -We repeated lipid panel on 06/30/2024- 183 NEPHRO #Hypophosphatemia #WILL, resolved #Hyperkalemia---Resolved #Hyperphosphatemia, resolved Hypophosphatemia likely secondary to nutritional deficiency, further complicated by decreased absorption due to patient being on Bactrim and calcium carbonate. Plan: -Discontinued Veltassa as potassium has been in the lower end of normal value -Continue to monitor phosphorus and replete as needed -Maintain euvolemia -Replete electrolytes as needed. #Mild hyponatremia Secondary to SIADH due to acute hypoxic respiratory failure leading to pulmonary distress -Continue to monitor #NAGMA #Primary Respiratory acidosis compensated by metabolic alkalosis, stable Secondary to increased work of breathing and increased RR 2/2 chronic hypoxic respiratory failure and chronic respiratory distress syndrome in the setting of tapering down of IV sedatives -ABGs revealed pH of 7.46, pCO2 53, pO2 66 and bicarb 38. -ABG on 06/28/2024 revealed pH of 7.32, pCO2 64 and bicarb 33.1. -We will treat the underlying cause HEME #Leukocytosis, resolved Fluctuating WBC. In the setting of likely infection, inflammation, and corticosteroids. 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 Clinically no evidence of bleeding. Iron panel shows iron 17, TIBC 262, iron saturation 6, unsaturated iron binding 245. Peripheral blood film confirms microcytic hypochromic anemia with target cells. Also daily lab draws contributing. Plan: -Started on oral ferrous sulfate 325 Mg daily -Monitor H&H. Transfusing for Hgb <7 #Thrombocytosis, resolved Likely reactive. -Continue to monitor ENDO #Hypoglycemia, resolved Blood glucose this morning was 69, likely secondary to increased metabolic acid complicated by stopping enteral feeding -Bolus D50W given -Repeat blood sugar was stable -We will resume enteral feeding after PEG tube placement ID #Bilateral pneumocystis pneumonia #Healthcare associated pneumonia #Ventilator associated pneumonia #PCP pneumonia prophylaxis Negative studies: Cocci IgM and IgG, Hepatitis panel, Syphilis, Legionella, H.flu, N.meningitidis, Strep B, Strep pneumoniae, COVID, RSV, Flu A & B. TB quantiferon GOLD-indeterminate, however 06/05 AFB negative, CMV IgM, cryptococcal antigen negative. G6PD levels came back normal for consideration of dapsone alternative to Bactrim if needed. Patient completed 5 day course of azithromycin, 16 days of Zosyn. See Pulm for timeline of antimicrobial coverage. On 06/27 patient developed new septic shock Plan: -Antibiotcs Bactrim for prevention of PCP pneumonia in the setting of CD4 count of 116 -Linezolid and meropenum restarted on 06/27/2024- -Urine ackerman port grew GPC, Staph epidermidis that is MDR, sensitive to linezolid. -Fungal cultures from BAL pending, follow-up on results -Blood cultures from 06/26/2024 and 06/27/2024, negative so far, cultures drawn on 06/29/2024 is pending -Follow up blood, sputum, and urine cultures #AIDS/HIV Patient has Stage 4 HIV, AIDS-defining illness with opportunistic infection. 06/07/2024 Bronchoalveolar lavage cytology shows Pneumocystis jirovecii. Also other fungi, possibly Kassandra. Kassandra is most likely a contaminant. Blood kats-E-mobmgi also positive. 06/08/2024 HIV quant 5.66 million copies. HIV 1 positive confirmed. 06/09/2024 Patient's decision maker, Francesca, was informed of diagnosis due to critical state of patient. Absolute CD4 count 87 and 22% on 06/02. History/risk factors: History of injection anabolic androgenic steroid and testosterone use, possible unclean needles. History of incarceration (unknown time). Tattoos received as a teenager. Has 1 female sexual partner last 5 years, denies others. -Continue HAART: emtricitabine / tenofovir (Truvada) and raltegravir initiated 06/09/24 -Patient is not aware of his diagnosis as he has been intubated and sedated before results returned. Will require complete education and counseling on the disease if his mental status and clinical condition improves. 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 The patient is being downgraded to telemetry unit for further management of chronic hypoxic respiratory failure s/p tracheostomy. DVT prophylaxis: On heparin drip for treatment of right upper extremity DVT GI prophylaxis: Pantoprazole 40 mg IV qday, discontinued Diet: Tube feeds Ackerman: No, condom cath Lines: Peripheral IV, removed rt femoral central line on 06/28/24 Antibiotics: Bactrim, linezolid, meropenum CODE STATUS: FULL CODE Patient plan of care was discussed with the attending physician, Dr. Walsh. Jeff Pacheco MD, PGY2
[2024-06-30] MEDS: fentaNYL 2,500 MCG/250 ML BAG 2,500 MCG/250 ML BAG IV (15:47)
--- NOTE | 2024-06-30 16:48 | PC.NURSE ---
Bladder scanner performed per Dr. Magallanes orders, pt has distended bladder on CT scan and want to make sure that the amount is not in excess to have to place ackerman back in. I reported to MD that pt has been having good out put but they wanted to proceed. Total was 323
[2024-06-30] MEDS: Norepinephrine/D5W 8mg/250ml 8 MG/250 ML BAG 17.693 MG IV (17:17)
[2024-06-30] MEDS: DEXMEDETOMIDINE 400 MCG IVPB 400 MCG/100 ML BAG IV (18:33)
[2024-07-01] VITALS (107 sets, daily range): BP systolic 76–123; BP diastolic 46–85; PULSE 86–126; RESP 0–92; TEMP 36.2–38.8; O2SAT 83–100
[2024-07-01] MEDS: ACETAMINOPHEN SOL 325 MG/10 ML UDC 650 MG GT ×2 (00:06→05:53)
--- NOTE | 2024-07-01 05:00 | XR_ITS ---
Examination: AP chest single view Technique one AP portable semiupright chest single view Exam date and time: July 01, 2024 0503 hrs. Comparison June 29, 2024 Indications: History severe pneumonia ARDS, post tracheostomy tube placement Findings: Severe bilateral lung opacity again noted Normal heart size Tracheostomy tube tip 3.6 cm above sunil The osseous structures are intact Impression: No significant change in severe bilateral pneumonia ARDS pattern
[2024-07-01] MEDS: Artificial Tears 225 DROP/15 ML BTL BOTH EYES ×4 (05:51→20:05)
[2024-07-01] MEDS: PHENOBARBITAL ELIX 20 MG/5 ML 90 MG GT (05:52)
[2024-07-01] MEDS: oxyCODONE HCL 5 MG IR TAB 10 MG PO ×3 (05:56→21:11)
[2024-07-01 05:57] LABS: Basophils % (Auto) 1 % (0-2.5); Eosinophils # (Auto) 0.5 Thou/mm3 (0.0-0.5); Eosinophils % (Auto) 8 % (0-10); Hematocrit 29.4 % (41.0-53.0); Hemoglobin 9.2 g/dL (13.5-16.0); Immature Granulocytes % (Auto) 2 % (0-0); Immature Granulocytes Auto 0.12 Thou/mm3 (0.00-0.00); Lymphocytes # (Auto) 0.6 Thou/mm3 (1.0-4.8); Lymphocytes % (Auto) 10 % (10-50); Mean Corpuscular HGB Conc 31.3 g/dl (31.0-37.0); Mean Corpuscular Hemoglobin 24.3 pg (25.0-35.0); Mean Corpuscular Volume 78 fL (80-100); Monocytes # (Auto) 0.5 Thou/mm3 (0.0-0.8); Monocytes % (Auto) 7 % (0-12); Neutrophils # (Auto) 4.6 Thou/mm3 (1.8-7.7); Neutrophils % (Auto) 72 % (37-80); Nucleated Red Blood Cell % 0 /100 WBC (0); Platelet Count 285 Thou/mm3 (140-440); RDW Standard Deviation 71.1 fL (35.1-43.9); Red Blood Count 3.78 Miln/mm3 (4.50-5.90); White Blood Count 6.4 Thou/mm3 (3.8-10.6)
[2024-07-01] MEDS: clonazePAM 0.5 MG TABLET 2 MG PO ×3 (05:58→21:11)
[2024-07-01] MEDS: MEROPENEM INJ 1,000 MG in SODIUM CHLORIDE 0.9% (P) 50 ML 100 MG IV ×3 (05:59→21:10)
[2024-07-01] MEDS: NAPH,KPH MBDB 1 PACKET (1.5 GM) 2 PACKET PO ×3 (05:59→21:11)
[2024-07-01 06:28] LABS: Alanine Aminotransferase 527 U/L (10-49); Albumin, Serum 2.6 gm/dL (3.5-5.0); Alkaline Phosphatase 400 U/L (46-116); Anion Gap 1 (7-16); Aspartate Amino Transferase 668 U/L (0-34); BUN/Creatinine Ratio 46 Ratio (12-20); Bilirubin,Total 0.3 mg/dL (0.3-1.2); Blood Urea Nitrogen 23 mg/dL (9-23); Calcium 7.6 mg/dL (8.3-10.6); Calcium (Corrected) 8.7 mg/dL (8.5-10.1); Carbon Dioxide 33.6 mMol/L (20.0-31.0); Chloride 94 mMol/L (98-107); Creatinine (Component) 0.5 mg/dL (0.6-1.3); Estimated Creatinine Clearance 180.8 mL/min (>60); Globulin 2.7 gm/dL (2.3-3.5); Glucose 111 mg/dL (74-106); Magnesium 1.7 mg/dL (1.6-2.6); Osmolality,Calculated 263 (275-295); Phosphorous 2.7 mg/dL (2.4-5.1); Potassium 4.4 mMol/L (3.4-5.1); Sodium 129 mMol/L (136-145); Total Protein 5.3 gm/dL (5.7-8.2); eGFR > 60 See Note
[2024-07-01] MEDS: RALTEGRAVIR 400 MG TABLET NG ×2 (07:30→18:26)
[2024-07-01] MEDS: QUEtiapine FUMARATE 100 MG TABLET PO ×2 (08:02→20:02)
[2024-07-01] MEDS: predniSONE 5 MG TABLET 10 MG PO (08:03)
[2024-07-01] MEDS: LINEZOLID 600 MG IVPB 600 MG/300 ML BAG 300 MG IV ×2 (08:03→20:02)
[2024-07-01] MEDS: FERROUS SULF 325 MG TABLET PO (08:03)
[2024-07-01] MEDS: EMTRICITABINE 200 MG/TENOFOVIR 300 MG TAB (NON-FORM) 1 TAB PO (08:03)
[2024-07-01] MEDS: SULFAMETHOXAZOLE PO (08:08)
[2024-07-01] MEDS: TRIMETHOPRIM PO (08:08)
--- NOTE | 2024-07-01 08:51 | PD.INTPROG ---
Documentation for date of: 07/01/24 Subjective Subjective Interval history: This is a 39-year-old male who presented to the ER on 27 May. Initially he presented for shortness of breath cough and general malaise. Apparently he had been feeling unwell for the last 2 to 3 weeks. He did have some nonproductive cough. Chest x-ray showed bilateral diffuse infiltrates and the medicine team was contacted. He was admitted to the floor and placed on high flow nasal cannula initially at 100% FiO2 and started on antibiotics. He was started on fluconazole as well as Levaquin given that there was a high suspicion for underlying cocci pneumonia. He has had 2 rapid responses over the last 48 hours due to hypoxia and desatting. The patient is able to tolerate minimal movements prior to desatting. Today the ICU is consulted for further evaluation. The patient is currently on 80% FiO2 he is awake alert and oriented. He states that he has shortness of breath however minimal cough. He does complain of some upper abdominal/lower rib pain which he attributes to his recent cough. He denies any chest pain. Does note that he has had some night sweats and fever over the last several days. There has been no significant improvement since arrival 3 days ago. His respiratory status remains unchanged if not slightly worse. He is currently on isolation with airborne precautions behind a closed door. At this point in time due to an abundance of caution as well as closer observation and monitoring we will transfer to the ICU for ongoing management of his acute hypoxic respiratory failure. I did discuss with the patient the probable need for intubation in the near future. He is okay with intubation 05/31- no acute overnight events, decrease in FiO2 needs, feels better with less WOB today, afebrile, 06/05-patient had been returned to the floor where initially he did well. Apparently over the last 24 to 36 hours he has had an increase in FiO2 requirements with a rapid response called last night. Rapid response called again this morning. Patient stated that he felt tired and unable to keep up. He is on 100% FiO2. He desats with minimal exertion. The decision was made to bring him to the ICU for intubation. This was discussed with the patient while he was awake and his family as well. 06/06- overnight pt remained on NMB, versed/prop/fent. brisk UOP >100cc/hr , afebrile, labs this AM showed a K of 7.8 for which he received insulin/Ca/D50/kayexolate 06/07-patient underwent dialysis yesterday for refractory hyperkalemia, he remains on deep sedation however off of propofol and off of paralytic. Continues with a good urinary output. Afebrile, have been able to come down on his FiO2 however persistent bilateral infiltrates severe on exam without conclusive underlying etiology as of this point in time. 06/08-no acute overnight events, this a.m. attempted to decrease sedation however patient became agitated and desatted. Required increased to 100% FiO2. When patient was suctioned blood was returned from the ET tube. Patient required paralytic and bagging in order to improve his sats. 06/23-has had a prolonged hospital course thus far. Was unable to be weaned from the vent. He was scheduled for tracheostomy today which took place with Dr Ryan. His Versed drip was stopped today. He remains on propofol and fentanyl. He is on multiple p.o. medications for severe agitation. Net negative over the last 24 hours however net positive since hospital stay. Afebrile 06/24- s/p trach yesterday, scheduled for PEG today, afebrile, vent dysynchrony overnight reason for which his fent was increased, off of prop. good UOP, afebrile 06/25- no acute overnight evetns, s/p PEG yesterday, afebrile, good UOP, intermittent episodes of tachypnea, attempting to wean fent off 06/26-off of fentanyl, yesterday spiked a fever of 101. Blood cultures were sent. No other acute overnight events 06/27- overnight became hypotensive receiving 2lts of IVF and then requiring vasopressors. He is clammy and diaphoretic today, good UOP 06/28-overnight patient appears to have come off of vasopressors the BP is currently low normal. Continues to have low-grade temp. It was found overnight that the patient's narcotics had fallen off of his med rec therefore some of his symptoms may have been related to withdrawal. His meds were reinstated. He was very tachycardic overnight. 06/29- no acute overnight events, off pressors, off all drips, Tm 103.9 yesterday morning 12/12- overnight spiked a temp again and dropped his pressures. He received 2lts of IVF however was still hypotensive and therefore started on levophed once more. He has remained on meropenem/linezolid for the last 4 days. trialled yesterday on PSV and lasted for ~4hrs 07/01-yesterday patient CT came back with a pneumomediastinum. The patient's blood pressure remains tenuous requiring vasopressor support. He was restarted on sedation yesterday. He continues to spike temps and have low-grade fevers requiring cooling measures. Critical Care Note Critical care time (min.): 44 Exam Vital Signs Temp Pulse Resp BP Pulse Ox O2 Del Method O2 Flow Rate 101.9 F H 105 H 40 H 99/63 98 Mechanical Ventilation 40 07/01/24 06:30 07/01/24 07:30 07/01/24 06:16 07/01/24 08:03 07/01/24 07:30 07/01/24 06:30 06/09/24 12:16 FiO2 60 07/01/24 07:52 Narrative Exam Gen- chronically ill appearing, restless, encephalopathic, nl body habitus HEENT- NC/AT, mucosa hydrated, sclera anicteric, PERRL, trach in place with mucoid secretions Chest- crackles and coarse breath sounds, HRRR, tachycardic, tachypneic Abd- s/nt/bs+, PEG in place Ext- edema of UE, no mottling, no clubbing, blisters in healing stages over R forearm Vent AC VC Drips levo fent precedex Physical Exam Completion Physical Exam Complete?: Yes Objective - Sleeve Tailor Labs 07/02/24 09:00 07/02/24 09:00 Labs: Laboratory Results - last 24 hr 06/30/24 07/01/24 10:10 05:18 WBC 6.4 RBC 3.78 L Hgb 9.2 L Hct 29.4 L MCV 78 L MCH 24.3 L MCHC 31.3 RDW Std Deviation 71.1 H Plt Count 285 D Neut % (Auto) 72 Lymph % (Auto) 10 [place] % (Auto) 7 Eos % (Auto) 8 Baso % (Auto) 1 Neut # (Auto) 4.6 Lymph # (Auto) 0.6 L [place] # (Auto) 0.5 Eos # (Auto) 0.5 Baso # (Auto) 0.0 Immature Gran # (Auto) 0.12 H Absolute Nucleated RBC 0.00 Immature Gran % 2 H Nucleated RBC % 0 Sodium 129 L Potassium 4.4 D Chloride 94 L Carbon Dioxide 33.6 H Anion Gap 1 L BUN 23 Creatinine 0.5 L Estim Creat Clear Calc 180.8 eGFR > 60 BUN/Creatinine Ratio 46 H Glucose 111 H Calculated Osmolality 263 L Lactic Acid 1.6 Calcium 7.6 L Corrected Calcium 8.7 Phosphorus 2.7 Magnesium 1.7 Total Bilirubin 0.3 AST 668 H* ALT 527 H* Alkaline Phosphatase 400 H D Total Protein 5.3 L Albumin 2.6 L Globulin 2.7 Albumin/Globulin Ratio 1.0 L Assessment & Plan Problem List (1) Acute respiratory failure with hypoxia: Status: Acute Additional Assessment Additional Assessment: In brief this is a 39y M admitted for SOB and acute hypoxic resp failure with b/l PNA. 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 He was started on p.o. Seroquel and phenobarbital. He is also on Klonopin and oxycodone. - remains intermittently agitated but profoundly encephalopathic -EEG still pending -MRI did not show any significant injury or lesions - no change in mentation - back on drips for sedation CV Septic shock- on and off levophed - cont on meropenem and linezolid day #5 - Ucx with MDR staph epi which is sensitive to linezolid - sputum cx with staph haemolyticus also MDR sensitive to linezolid - LA elevated this AM -> cont to follow-> trended back down Tachycardia- unclear etiology - rate goes up to 140s and 150s independant of temp -> below 100 today - trialled morphine for air hunger, dilaudid for pain, ativan for anxiety, BB all with only a 10 to 15 beat change in rate Resp Chronic hypoxic resp failure- s/p trach 12/5 - intermittent PSV trials in an attempt to cont to wean from vent - tolerates 2-3 hrs thus far - no significant change PCP PNA- tx with bactrim and steroids - improved - Bactrim DS for PCP proph to be continued ARDS- improved with less FiO2 needs - unclear if pt will ever improve sufficiently to come off vent Renal HypoNa- 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 monitor - mild - some decrease from yesterday WILL- resolved HypoPhos-repleted daily - d/w dietary for supplements Hypokalemia-resolved GI Transaminitis- Hep viral panel is neg, -increased today to 600 - may be some component of shock liver - check hepatotoxicity of current med regimen - ? cholestasis - US did not show any CBD obstruction - will hold tylenol and phenobarb today GI proph- PPI Endo Hypoglycemia-resolved HyperTrig- may be 2/2 prop -> stopped yesterday - recheck in a few days Heme Microcytic Anemia-iron deficiency anemia - on PO iron - stable DVT right upper extremity -heparin drip ID PNA-secondary to PCP VAP - grew out VRE and staph hemolyticus on 06/09 - seen by ID and recs noted HIV/ AIDS- on HAART tx -> fu with ID - JAYME proph if CD4 <50 UTI- Ucx with GPC -awaiting ID and sensitivities case d/w ICU team poor overall prognosis labs, imaging, records reviewed ~44ccmin required for eval, exam, review, intervention , discussion and formulation of POC for this critically ill pt with resp failure at high risk for further and ongoing decompensation Provider Notation Provider Notation: Although this document has been carefully reviewed, there may still be some phonetic and other typographical errors. These errors are purely grammatical due to imperfections in the software program and should not be construed in any way to compromise the substance of the patient's medical care during this visit. Thank you for the opportunity and privilege in assisting you with this patient's care and management.
--- NOTE | 2024-07-01 09:59 | PD.IDPROG ---
Subjective Subjective Interval history: events noted. on vent. fiO2 up again today, seems to fluctuate wildly, Exam Vital Signs Temp Pulse Resp BP Pulse Ox O2 Del Method O2 Flow Rate 97.5 F 98 40 H 94/52 L 94 L Mechanical Ventilation 40 07/01/24 08:00 07/01/24 08:53 07/01/24 06:16 07/01/24 08:53 07/01/24 08:53 07/01/24 06:30 06/09/24 12:16 FiO2 60 07/01/24 07:52 Narrative Exam sedated on 60% on vent today. has peg. getting some meds that way Objective - Internal Medicine Labs 07/01/24 05:18 07/01/24 05:18 Labs: Laboratory Results - last 24 hr 06/30/24 07/01/24 10:10 05:18 WBC 6.4 RBC 3.78 L Hgb 9.2 L Hct 29.4 L MCV 78 L MCH 24.3 L MCHC 31.3 RDW Std Deviation 71.1 H Plt Count 285 D Neut % (Auto) 72 Lymph % (Auto) 10 [place] % (Auto) 7 Eos % (Auto) 8 Baso % (Auto) 1 Neut # (Auto) 4.6 Lymph # (Auto) 0.6 L [place] # (Auto) 0.5 Eos # (Auto) 0.5 Baso # (Auto) 0.0 Immature Gran # (Auto) 0.12 H Absolute Nucleated RBC 0.00 Immature Gran % 2 H Nucleated RBC % 0 Sodium 129 L Potassium 4.4 D Chloride 94 L Carbon Dioxide 33.6 H Anion Gap 1 L BUN 23 Creatinine 0.5 L Estim Creat Clear Calc 180.8 eGFR > 60 BUN/Creatinine Ratio 46 H Glucose 111 H Calculated Osmolality 263 L Lactic Acid 1.6 Calcium 7.6 L Corrected Calcium 8.7 Phosphorus 2.7 Magnesium 1.7 Total Bilirubin 0.3 AST 668 H* ALT 527 H* Alkaline Phosphatase 400 H D Total Protein 5.3 L Albumin 2.6 L Globulin 2.7 Albumin/Globulin Ratio 1.0 L ABG Interpretation ABG results: 05/27/24 05/29/24 05/29/24 23:37 10:44 22:08 ABG pH 7.51 H 7.50 H 7.48 H ABG pCO2 28 L 32 32 ABG pO2 75 L 79 L 145 H D ABG HCO3 23 25 24 ABG O2 Saturation 96 95 98 ABG Base Excess 0 2 1 05/30/24 05/31/24 06/04/24 08:45 04:54 02:10 ABG pH 7.47 H 7.45 7.45 ABG pCO2 35 38 36 ABG pO2 86 D 82 L 139 H ABG HCO3 26 26 25 ABG O2 Saturation 97 96 98 ABG Base Excess 2 2 1 06/04/24 06/05/24 06/05/24 18:16 11:36 12:59 ABG pH 7.44 7.11 L* D 7.20 L ABG pCO2 36 94 H* D 68 H D ABG pO2 80 L D 150 H D 121 H D ABG HCO3 24 30 H 26 ABG O2 Saturation 94 97 97 ABG Base Excess 0 -2 -3 06/05/24 06/06/24 06/06/24 19:25 04:13 15:27 ABG pH 7.22 L 7.27 L 7.30 L ABG pCO2 64 H 57 H 60 H ABG pO2 122 H 153 H D 74 L D ABG HCO3 26 26 29 H ABG O2 Saturation 97 99 H 92 ABG Base Excess -3 -2 2 06/07/24 06/07/24 06/08/24 03:55 09:59 04:20 ABG pH 7.41 D 7.43 7.45 ABG pCO2 56 H 55 H 50 H ABG pO2 293 H D 78 L D 75 L ABG HCO3 36 H 37 H 35 H ABG O2 Saturation 99 H 95 94 ABG Base Excess 10 H 11 H 10 H 06/08/24 06/08/24 06/08/24 11:05 11:50 13:18 ABG pH 7.17 L* D 7.10 L* 7.15 L* ABG pCO2 95 H* D 115 H* D 88 H* D ABG pO2 89 75 L 72 L ABG HCO3 34 H 36 H 31 H ABG O2 Saturation 92 84 L 85 L ABG Base Excess 3 4 H 0 06/08/24 06/09/24 06/09/24 17:02 01:33 03:15 ABG pH 7.18 L* 7.22 L 7.27 L ABG pCO2 50 H D 91 H* D 82 H* ABG pO2 82 L 105 D 86 ABG HCO3 19 L 37 H 38 H ABG O2 Saturation 93 97 95 ABG Base Excess -9 L 7 H 9 H 06/09/24 06/09/24 06/10/24 05:08 12:52 04:40 ABG pH 7.31 L 7.33 L 7.30 L ABG pCO2 75 H* 57 H D 78 H* D ABG pO2 97 158 H D 65 L D ABG HCO3 38 H 30 H 38 H ABG O2 Saturation 97 99 H 90 L ABG Base Excess 10 H 3 9 H 06/10/24 06/11/24 06/12/24 09:40 04:19 04:15 ABG pH 7.27 L 7.35 7.48 H D ABG pCO2 88 H* D 86 H* 63 H D ABG pO2 65 L 70 L 76 L ABG HCO3 40 H 48 H 47 H ABG O2 Saturation 89 L 93 95 ABG Base Excess 10 H 19 H 21 H 06/13/24 06/14/24 06/15/24 07:22 04:32 03:45 ABG pH 7.46 H 7.48 H 7.46 H ABG pCO2 56 H 40 D 37 ABG pO2 80 L 64 L 71 L ABG HCO3 39 H 30 H 27 H ABG O2 Saturation 95 92 94 ABG Base Excess 13 H 6 H 3 06/15/24 06/15/24 06/15/24 10:17 12:20 14:20 ABG pH 7.01 L* D 7.00 L* 7.03 L* ABG pCO2 122 H* D 130 H* 125 H* ABG pO2 91 D 88 82 L ABG HCO3 31 H 32 H 33 H ABG O2 Saturation 88 L 88 L 87 L ABG Base Excess -3 -2 -1 06/15/24 06/15/24 06/16/24 15:55 20:39 00:35 ABG pH 7.03 L* 7.08 L* 7.10 L* ABG pCO2 121 H* 116 H* 118 H* ABG pO2 99 117 H 102 ABG HCO3 32 H 34 H 37 H ABG O2 Saturation 93 97 96 ABG Base Excess -1 2 4 H 06/16/24 06/16/24 06/17/24 04:45 08:55 05:06 ABG pH 7.17 L* 7.28 L D 7.33 L ABG pCO2 112 H* 88 H* D 96 H* ABG pO2 155 H D 98 D 126 H D ABG HCO3 41 H 41 H 50 H ABG O2 Saturation 99 H 98 99 H ABG Base Excess 9 H 12 H 21 H 06/17/24 06/17/24 06/18/24 10:58 13:55 04:16 ABG pH 7.29 L 7.29 L 7.33 L ABG pCO2 106 H* D 106 H* 86 H* D ABG pO2 58 L* D 61 L 77 L ABG HCO3 51 H 51 H 45 H ABG O2 Saturation 87 L 88 L 95 ABG Base Excess 21 H 21 H 17 H 06/19/24 06/20/24 06/21/24 04:18 04:49 04:06 ABG pH 7.42 7.36 7.44 ABG pCO2 63 H D 74 H* D 61 H D ABG pO2 66 L 55 L* 202 H D ABG HCO3 41 H 42 H 42 H ABG O2 Saturation 93 87 L 100 H ABG Base Excess 15 H 14 H 16 H 06/22/24 06/23/24 06/24/24 04:18 04:29 04:25 ABG pH 7.45 7.46 H 7.29 L D ABG pCO2 57 H 53 H 80 H* D ABG pO2 60 L D 99 D 88 ABG HCO3 40 H 38 H 38 H ABG O2 Saturation 91 99 H 96 ABG Base Excess 14 H 13 H 9 H 06/24/24 06/25/24 06/25/24 08:50 05:13 11:02 ABG pH 7.40 D 7.46 H Cancelled ABG pCO2 61 H D 53 H Cancelled ABG pO2 110 H D 66 L D Cancelled ABG HCO3 38 H 38 H Cancelled ABG O2 Saturation 99 H 94 Cancelled ABG Base Excess 12 H 13 H Cancelled 06/25/24 06/26/24 06/26/24 15:53 04:13 11:40 ABG pH 7.39 7.41 7.46 H ABG pCO2 53 H 48 43 ABG pO2 55 L* 58 L* 58 L* ABG HCO3 32 H 30 H 31 H ABG O2 Saturation 86 L 89 L 92 ABG Base Excess 6 H 5 H 6 H 06/27/24 06/28/24 06/28/24 04:17 04:24 06:22 ABG pH 7.48 H 7.27 L D 7.22 L ABG pCO2 39 72 H* D 83 H* D ABG pO2 49 L* 71 L D 82 L ABG HCO3 29 H 33 H 34 H ABG O2 Saturation 87 L 93 95 ABG Base Excess 5 H 5 H 4 H 06/28/24 06/29/24 06/30/24 10:18 04:21 07:57 ABG pH 7.32 L D 7.41 7.41 ABG pCO2 64 H D 63 H 62 H ABG pO2 76 L 81 L 59 L* D ABG HCO3 33 H 40 H 40 H ABG O2 Saturation 95 97 88 L ABG Base Excess 6 H 14 H 13 H Assessment & Plan A&P Narrative pneumonia.pjp on bal noted. hiv. infection, newly discovered in a heterosexual man. can not r/o ivdu resp failure, hypoxic variable O2 status jo ann, resolved. acute febrile illness. cause uncertain.rx empirical, cx neg or unrevealing he has hiv, gf needs to be tested. ok for hiv rx as ordered.changed bactrim to once daily a week ago now. As noted before, not every one survives, he is only 39, but is newly discovered to have a very bad disease that is easier to manage if caught earlier. ok to maintain steroid rxn. for now. repeat cx noted. ok to be off flucon as cd4 >100 and crypto ag neg. ok to be on hiv rx. will have to notify pt when he is awake. be sure that gf is tested as precaution. fevers likely due to iris. as cx are neg but it may be challenging to stop the linezolid and merrem with fever so may be stop one of them, like the linezolid lft's noted. can be caused by any of a number of factors. his non hiv meds are more likely players sadly but can not fully exclude hiv meds in ddx for lft changes. Time Spent With Patient Time: Total time spent is greater than 50% in coordination of care (as documented) at patient's floor/unit and/or counseling patient:
[2024-07-01] MEDS: Norepinephrine/D5W 8mg/250ml 8 MG/250 ML BAG 17.693 MG IV (10:09)
[2024-07-01] MEDS: ALBUMIN HUMAN 25% IVPB 12.5 GM/50 ML BTL IV (10:09)
[2024-07-01] MEDS: fentaNYL 2,500 MCG/250 ML BAG 2,500 MCG/250 ML BAG 12.5 MCG IV (12:49)
[2024-07-01] MEDS: CALCIUM CARBONATE 600 MG TABLET GT (12:50)
--- NOTE | 2024-07-01 15:51 | PC.SS ---
Update: Patient remains Trach/PEG. Remains on pressors. Continues to remain in possession of fever.
[2024-07-01] MEDS: DEXMEDETOMIDINE 400 MCG IVPB 400 MCG/100 ML BAG 10.11 MCG IV (18:45)
[2024-07-01] MEDS: LORazepam 2 MG/ML VIAL IVP (19:54)
[2024-07-01] MEDS: DOCUSATE SOD 250 MG CAPSULE PO (20:02)
--- NOTE | 2024-07-01 21:39 | PD.EVENT ---
Documentation for date of: 07/01/24 Event Note Event Note: This consultation was supposed to be canceled as the PEG tube was placed by Dr. Ryan I did not need to see the patient abdominal
[2024-07-02] VITALS (104 sets, daily range): BP systolic 75–121; BP diastolic 49–79; PULSE 79–113; RESP 19–45; TEMP 36.6–37.9; O2SAT 86–100; BMI 25.9
[2024-07-02] MEDS: LORazepam 2 MG/ML VIAL IVP ×2 (00:15→04:38)
[2024-07-02] MEDS: DEXMEDETOMIDINE 200 MCG IVPB 200 MCG/50 ML BOTTLE 14.4 MCG IV (00:21)
[2024-07-02] MEDS: DEXMEDETOMIDINE 200 MCG IVPB 200 MCG/50 ML BOTTLE 18 MCG IV ×8 (03:43→23:35)
[2024-07-02 04:26] LABS: Base Excess 12 (-3-3); HCO3 38 mEq/L (20-26); Inspired Oxygen, FIO2 80 %; O2 Saturation 96 % (91-98); PCO2 53 mmHg (32.0-48.0); PO2 77 mmHg (83-108); pH, Arterial 7.46 (7.35-7.45)
[2024-07-02 04:27] LABS: Allen Test Performed/OK; Puncture Site Right Radial
[2024-07-02] MEDS: fentaNYL 2,500 MCG/250 ML BAG 2,500 MCG/250 ML BAG 22.5 MCG IV (04:38)
[2024-07-02] MEDS: oxyCODONE HCL 5 MG IR TAB 10 MG PO ×3 (05:00→21:02)
[2024-07-02] MEDS: MEROPENEM INJ 1,000 MG in SODIUM CHLORIDE 0.9% (P) 50 ML 100 MG IV ×3 (05:00→21:03)
[2024-07-02] MEDS: clonazePAM 0.5 MG TABLET 2 MG PO ×3 (05:00→21:02)
[2024-07-02] MEDS: Artificial Tears 225 DROP/15 ML BTL BOTH EYES ×4 (05:01→20:58)
[2024-07-02] MEDS: NAPH,KPH MBDB 1 PACKET (1.5 GM) 2 PACKET PO ×3 (05:01→21:02)
[2024-07-02] MEDS: Norepinephrine/D5W 8mg/250ml 8 MG/250 ML BAG 12.638 MG IV (06:35)
[2024-07-02] MEDS: ROCURONIUM INJ 10 MG/ML VIAL 10 ML 50 MG IVP (08:19)
[2024-07-02] MEDS: RALTEGRAVIR 400 MG TABLET NG ×2 (08:27→20:56)
[2024-07-02 09:34] LABS: Basophils % (Auto) 1 % (0-2.5); Eosinophils # (Auto) 0.4 Thou/mm3 (0.0-0.5); Eosinophils % (Auto) 7 % (0-10); Hematocrit 29.7 % (41.0-53.0); Hemoglobin 9.1 g/dL (13.5-16.0); Immature Granulocytes % (Auto) 2 % (0-0); Lymphocytes # (Auto) 0.5 Thou/mm3 (1.0-4.8); Lymphocytes % (Auto) 9 % (10-50); Mean Corpuscular HGB Conc 30.6 g/dl (31.0-37.0); Mean Corpuscular Hemoglobin 23.9 pg (25.0-35.0); Mean Corpuscular Volume 78 fL (80-100); Monocytes # (Auto) 0.3 Thou/mm3 (0.0-0.8); Monocytes % (Auto) 5 % (0-12); Neutrophils # (Auto) 4.7 Thou/mm3 (1.8-7.7); Neutrophils % (Auto) 78 % (37-80); Nucleated Red Blood Cell % 0 /100 WBC (0); Platelet Count 277 Thou/mm3 (140-440)
[2024-07-02] MEDS: predniSONE 5 MG TABLET 10 MG PO (09:52)
[2024-07-02] MEDS: QUEtiapine FUMARATE 100 MG TABLET PO ×2 (09:52→20:13)
[2024-07-02] MEDS: LINEZOLID 600 MG IVPB 600 MG/300 ML BAG 300 MG IV ×2 (09:52→20:13)
[2024-07-02 09:53] LABS: Alanine Aminotransferase 372 U/L (10-49); Albumin, Serum 2.6 gm/dL (3.5-5.0); Alkaline Phosphatase 490 U/L (46-116); Anion Gap 2 (7-16); Aspartate Amino Transferase 355 U/L (0-34); BUN/Creatinine Ratio 42 Ratio (12-20); Bilirubin,Total 0.3 mg/dL (0.3-1.2); Blood Urea Nitrogen 21 mg/dL (9-23); Calcium 7.5 mg/dL (8.3-10.6); Calcium (Corrected) 8.6 mg/dL (8.5-10.1); Carbon Dioxide 35.6 mMol/L (20.0-31.0); Chloride 89 mMol/L (98-107); Creatinine (Component) 0.5 mg/dL (0.6-1.3); Estimated Creatinine Clearance 180.8 mL/min (>60); Globulin 2.6 gm/dL (2.3-3.5); Glucose 109 mg/dL (74-106); Magnesium 1.6 mg/dL (1.6-2.6); Osmolality,Calculated 259 (275-295); Phosphorous 2.5 mg/dL (2.4-5.1); Potassium 4.4 mMol/L (3.4-5.1); Sodium 127 mMol/L (136-145); Total Protein 5.2 gm/dL (5.7-8.2); eGFR > 60 See Note
[2024-07-02] MEDS: SULFAMETHOXAZOLE PO (09:53)
[2024-07-02] MEDS: TRIMETHOPRIM PO (09:53)
[2024-07-02] MEDS: DOCUSATE SOD LIQD 100 MG/10 ML UDC 250 MG GT ×2 (09:56→20:13)
[2024-07-02] MEDS: EMTRICITABINE 200 MG/TENOFOVIR 300 MG TAB (NON-FORM) 1 TAB PO (09:56)
[2024-07-02] MEDS: Ferrous Sulfate 300 MG/5 ML UDC GT (09:56)
[2024-07-02] MEDS: Heparin/D5w 25K 250 ML Ivpb 25,000 UNIT/250 ML BAG 13.5 UNIT IV (11:03)
[2024-07-02] MEDS: HEPARIN SOD INJ 5000 UNIT/ML VIAL 6000 UNIT IV (11:04)
[2024-07-02] MEDS: MAGNESIUM OXIDE 400 MG TABLET PO ×2 (11:20→20:12)
--- NOTE | 2024-07-02 11:20 | ESPR_ITS ---
Documentation for date of: 07/02/24 Subjective Subjective Interval history: This is a 39-year-old male who presented to the ER on 27 May. Initially he presented for shortness of breath cough and general malaise. Apparently he had been feeling unwell for the last 2 to 3 weeks. He did have some nonproductive cough. Chest x-ray showed bilateral diffuse infiltrates and the medicine team was contacted. He was admitted to the floor and placed on high flow nasal cannula initially at 100% FiO2 and started on antibiotics. He was started on fluconazole as well as Levaquin given that there was a high suspicion for underlying cocci pneumonia. He has had 2 rapid responses over the last 48 hours due to hypoxia and desatting. The patient is able to tolerate minimal movements prior to desatting. Today the ICU is consulted for further evaluation. The patient is currently on 80% FiO2 he is awake alert and oriented. He states that he has shortness of breath however minimal cough. He does complain of some upper abdominal/lower rib pain which he attributes to his recent cough. He denies any chest pain. Does note that he has had some night sweats and fever over the last several days. There has been no significant improvement since arrival 3 days ago. His respiratory status remains unchanged if not slightly worse. He is currently on isolation with airborne precautions behind a closed door. At this point in time due to an abundance of caution as well as closer observation and monitoring we will transfer to the ICU for ongoing management of his acute hypoxic respiratory failure. I did discuss with the patient the probable need for intubation in the near future. He is okay with intubation 05/31- no acute overnight events, decrease in FiO2 needs, feels better with less WOB today, afebrile, 06/05-patient had been returned to the floor where initially he did well. Apparently over the last 24 to 36 hours he has had an increase in FiO2 requirements with a rapid response called last night. Rapid response called again this morning. Patient stated that he felt tired and unable to keep up. He is on 100% FiO2. He desats with minimal exertion. The decision was made to bring him to the ICU for intubation. This was discussed with the patient while he was awake and his family as well. 06/06- overnight pt remained on NMB, versed/prop/fent. brisk UOP >100cc/hr , afebrile, labs this AM showed a K of 7.8 for which he received insulin/Ca/D50/kayexolate 06/07-patient underwent dialysis yesterday for refractory hyperkalemia, he remains on deep sedation however off of propofol and off of paralytic. Continues with a good urinary output. Afebrile, have been able to come down on his FiO2 however persistent bilateral infiltrates severe on exam without conclusive underlying etiology as of this point in time. 06/08-no acute overnight events, this a.m. attempted to decrease sedation however patient became agitated and desatted. Required increased to 100% FiO2. When patient was suctioned blood was returned from the ET tube. Patient required paralytic and bagging in order to improve his sats. 06/23-has had a prolonged hospital course thus far. Was unable to be weaned from the vent. He was scheduled for tracheostomy today which took place with Dr Ryan. His Versed drip was stopped today. He remains on propofol and fentanyl. He is on multiple p.o. medications for severe agitation. Net negative over the last 24 hours however net positive since hospital stay. Afebrile 06/24- s/p trach yesterday, scheduled for PEG today, afebrile, vent dysynchrony overnight reason for which his fent was increased, off of prop. good UOP, afebrile 06/25- no acute overnight evetns, s/p PEG yesterday, afebrile, good UOP, intermittent episodes of tachypnea, attempting to wean fent off 06/26-off of fentanyl, yesterday spiked a fever of 101. Blood cultures were sent. No other acute overnight events 06/27- overnight became hypotensive receiving 2lts of IVF and then requiring vasopressors. He is clammy and diaphoretic today, good UOP 06/28-overnight patient appears to have come off of vasopressors the BP is currently low normal. Continues to have low-grade temp. It was found overnight that the patient's narcotics had fallen off of his med rec therefore some of his symptoms may have been related to withdrawal. His meds were reinstated. He was very tachycardic overnight. 06/29- no acute overnight events, off pressors, off all drips, Tm 103.9 yesterday morning 12/12- overnight spiked a temp again and dropped his pressures. He received 2lts of IVF however was still hypotensive and therefore started on levophed once more. He has remained on meropenem/linezolid for the last 4 days. trialled yesterday on PSV and lasted for ~4hrs 07/01-yesterday patient CT came back with a pneumomediastinum. The patient's blood pressure remains tenuous requiring vasopressor support. He was restarted on sedation yesterday. He continues to spike temps and have low-grade fevers requiring cooling measures. 07/02-the patient continues with an increased respiratory rate, phenobarbital held yesterday due to increasing LFTs. Continues with intermittent fever, overnight had some urinary retention requiring straight cath, condom cath still in place, no change in his mentation Critical Care Note Critical care time (min.): 47 Exam Vital Signs Temp Pulse Resp BP Pulse Ox O2 Del Method O2 Flow Rate 100.1 F 108 H 41 H 94/53 L 89 L Mechanical Ventilation 40 07/02/24 04:00 07/02/24 10:37 07/02/24 02:38 07/02/24 10:37 07/02/24 10:37 07/02/24 04:00 06/09/24 12:16 FiO2 70 07/02/24 10:37 Narrative Exam General-chronically ill-appearing, thin, status post trach HEENT-normocephalic, atraumatic, sclera icteric, oral mucosa is hydrated, tracheostomy in place Chest-fine crackles auscultated, no active wheezing, tachypneic, heart regular rhythmic, no bruits murmurs Abdomen-soft, nontender, bowel sounds present, no rebound or guarding, PEG in place Extremities-edema bilateral upper extremities, pulses palpable, no clubbing or mottling Drips Fentanyl Levophed Ventilator AC/VC Physical Exam Completion Physical Exam Complete?: Yes 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 07/02/24 09:00 07/02/24 09:00 Labs: Laboratory Results - last 24 hr 07/02/24 07/02/24 04:05 09:00 WBC 6.0 RBC 3.80 L Hgb 9.1 L Hct 29.7 L MCV 78 L MCH 23.9 L MCHC 30.6 L RDW Std Deviation 71.0 H Plt Count 277 Neut % (Auto) 78 Lymph % (Auto) 9 L Mcdowell % (Auto) 5 Eos % (Auto) 7 Baso % (Auto) 1 Neut # (Auto) 4.7 Lymph # (Auto) 0.5 L Mcdowell # (Auto) 0.3 Eos # (Auto) 0.4 Baso # (Auto) 0.0 Immature Gran # (Auto) 0.10 H Absolute Nucleated RBC 0.00 Immature Gran % 2 H Nucleated RBC % 0 APTT 35.0 D Puncture Site Right Radial ABG pH 7.46 H ABG pCO2 53 H ABG pO2 77 L ABG HCO3 38 H ABG O2 Saturation 96 ABG Base Excess 12 H FiO2 80 Sodium 127 L Potassium 4.4 Chloride 89 L Carbon Dioxide 35.6 H Anion Gap 2 L BUN 21 Creatinine 0.5 L Estim Creat Clear Calc 180.8 eGFR > 60 BUN/Creatinine Ratio 42 H Glucose 109 H Calculated Osmolality 259 L Calcium 7.5 L Corrected Calcium 8.6 Phosphorus 2.5 Magnesium 1.6 Total Bilirubin 0.3 AST 355 H ALT 372 H Alkaline Phosphatase 490 H D Total Protein 5.2 L Albumin 2.6 L Globulin 2.6 Albumin/Globulin Ratio 1.0 L Assessment & Plan Problem List (1) Acute respiratory failure with hypoxia: Status: Acute Additional Assessment Additional Assessment: In brief this is a 39y M admitted for SOB and acute hypoxic resp failure with b/l PNA. 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 He was started on p.o. Seroquel and phenobarbital. He is also on Klonopin and oxycodone. - remains intermittently agitated but profoundly encephalopathic -EEG without seizures -MRI did not show any significant injury or lesions - no change in mentation - back on drips for sedation -Off of phenobarbital CV Septic shock- on and off levophed - cont on meropenem and linezolid day #6 - Ucx with MDR staph epi which is sensitive to linezolid - sputum cx with staph haemolyticus also MDR sensitive to linezolid - LA elevated this AM -> cont to follow-> trended back down -Remains on low-dose Levophed, will start midodrine Tachycardia- unclear etiology now resolved Resp Chronic hypoxic resp failure- s/p trach / - intermittent PSV trials in an attempt to cont to wean from vent - tolerates 2-3 hrs thus far - no significant change -Increased FiO2 needs today with some increase in secretions PCP PNA- tx with bactrim and steroids - improved - Bactrim DS for PCP proph to be continued ARDS-no change - unclear if pt will ever improve sufficiently to come off vent Renal HypoNa- 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 monitor - mild - some decrease from yesterday WILL- resolved HypoPhos-repleted daily - d/w dietary for supplements Hypokalemia-resolved GI Transaminitis- Hep viral panel is neg, -increased today to 600 - may be some component of shock liver - check hepatotoxicity of current med regimen - ? cholestasis - US did not show any CBD obstruction - will hold tylenol and phenobarb today-> Numbers trending down therefore felt to be related to the phenobarbital. This will be stopped GI proph- PPI Endo Hypoglycemia-resolved HyperTrig- may be 2/2 prop -> stopped yesterday - recheck in a few days Heme Microcytic Anemia-iron deficiency anemia - on PO iron - stable DVT right upper extremity -heparin drip ID PNA-secondary to PCP VAP - grew out VRE and staph hemolyticus on 06/09 - seen by ID and recs noted HIV/ AIDS- on HAART tx -> fu with ID - JAYME proph if CD4 <50 - ID feels current fevers may be related to IRIS UTI- Ucx with MDR staph epi case d/w ICU team poor overall prognosis Discussed with mother at bedside, there is a need for ongoing goals of care discussion labs, imaging, records reviewed ~47ccmin required for eval, exam, review, intervention , discussion and formulation of POC for this critically ill pt with resp failure at high risk for further and ongoing decompensation Provider Notation Provider Notation: Although this document has been carefully reviewed, there may still be some phonetic and other typographical errors. These errors are purely grammatical due to imperfections in the software program and should not be construed in any way to compromise the substance of the patient's medical care during this visit. Thank you for the opportunity and privilege in assisting you with this patient's care and management.
--- NOTE | 2024-07-02 11:47 | ESPR_ITS ---
Documentation for date of: 07/02/24 Subjective Subjective Interval history: 06/26/2024: The patient was examined and evaluated at the bedside this morning. Patient is off of any sedatives or pressor support. Patient is mechanically ventilated through tracheostomy tube. The patient had 1 episode of fever overnight, and blood culture is pending. His heart rate has been in the range of 120s to 130s with RR between 28-36, saturating 92% on FiO2 50%. The patient received 2 mg IV hydromorphone x 1. His hemoglobin has been stable at 8.9, we will continue with oral ferrous sulfate 325 Mg daily, ABG revealed pH 7.46, pCO2 43, pO2 58 and bicarb 31. He received 1 dose of Diamox 500 Mg IV, sodium 130, potassium 3.5 and Veltassa was discontinued, phosphorus was 1.4 and we will repeat it further. The patient will be downgraded to telemetry unit we will continue with enteral sedatives phenobarbital 90 Mg 3 times daily, clonazepam 2 mg 3 times daily, oxycodone 10 mg 3 times daily and Seroquel 100 Mg twice daily. His sedatives will be continued for 2 weeks at this point and after that the plan is to taper down the sedatives. We will continue with HAART, micafungin until fungal culture is negative and continue with Bactrim DS daily for PCP pneumonia prophylaxis. 06/27/2024: Patient seen and examined in bedside in the ICU. Overnight patient developed hypotension, tachycardia, tachypnea, fever, was scheduled for downgrade but was readmitted to ICU for septic shock requiring pressors. Patient is mechanically ventilated via trach tube. New blood cultures, sputum cultures, urine cultures collected. Patient started on linezolid and meropenem. Continue enteral sedation. Repleted potassium and phosphorus. 06/28/2024: The patient was examined and evaluated at the bedside this morning. He continues to be mechanically ventilated through tracheostomy tube. Overnight patient did not had any fever. His urine output was about 3 L and he is negative by about 850 cc. His heart rate was in 150's, that trended down to 130s, further trended down to 100s. This morning ABG was significant for pH of 7.27 that trended down to pH of 7.2 with pCO2 of 72 and 83 respectively. Tidal volume was increased to 450 cc, and later ABG revealed pH 7.32 with pCO2 64. Brain MRI done yesterday was significant only for bilateral mastoiditis. EEG results pending. Blood cultures has been negative for 24 hours, Dr Hope was informed about restarting the patient on linezolid and meropenem, and he recommended continuing steroid for longer duration. We will continue with internal sedation. His corrected calcium was 8.4 and was started on oral calcium carbonate. We will follow-up on blood culture results and narrow down antibiotics as needed. 06/29/2024: The patient was examined and evaluated at the bedside this morning. He was started on automatic mode ventilation through tracheostomy tube and he tolerated it well. Patient did not had any fever overnight. His urine culture revealed positive for GPC, final cultures pending. His heart rate has been ranging from 120s to 150s with RR 23, saturating 96% on FiO2 40. Hemoglobin has been stable 9.4, ABG revealing pCO2 63, pO2 81 and bicarb 40 with ABG O2 saturation 97%. He continues to have mild hyponatremia with sodium of 133, and phosphorus 1.5 despite repeating multiple times. His triglyceride continues to decrease and today it is 183. The patient is to be continued on internal sedatives with phenobarbital 90 Mg 3 times daily, Ativan 2 Mg 3 times daily and oxycodone 10 Mg 3 times daily at least for 2 weeks, then slowly taper down. And also continue on prednisone 10 Mg daily for at least 1 week and then taper down. 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 06/30/2024: The patient was examined and evaluated at the bedside this morning. He was saturating well on mechanical ventilation through tracheostomy tube with heart rate in 70s. Overnight, patient developed 2 episodes of fever. Initially his MAP was less than 65, and sepsis protocol was initiated. 2 L of IV bolus crystalloid fluid was given. Blood culture, urine culture were sent, CXR done. Patient initially improved from hypotension with MAP of greater than 65, but earlier this morning the patient started dropping his blood pressure with MAP less than 65, and was started on Levophed drip. He is CBC has been at baseline, and ABG revealed pcO2 62, pO2 59 with bicarb of 40. His sodium continues to be in mild hyponatremic range with 135, bicarb 33.8. Corrected calcium 8.4 with phosphorus 1.2 which were repleted. His AST and ALT has been trending up from yesterday, 601/364 with ALP 295 and albumin 2.5. Pro-Jayy was 1.03. Chest/abdomen/pelvis CT with contrast was done that was significant for severe bilateral pneumonia with ARDS pattern, pneumomediastinum with hepatosplenomegaly. US liver was significant for gallbladder sludge, negative for cholelithiasis or cholecystitis. 07/02/2024: The patient was in examined and evaluated at the bedside this morning. He was mildly tachycardic with heart rate ranging from 100- 110, saturating around 90% on FiO2 70%. Overnight, patient had 2 episodes of fever. Cooling measures were applied. As there was concern about low urine output, bladder scan revealed greater than 600 cc of urine in bladder. Straight cath was done x 2 and 1 L urine was obtained. This morning ABG revealed pH 7.46, pCO2 53, pO2 77 and bicarb 38 with ABG O2 saturation 96%, on FiO2 80% and after that FiO2 was decreased to 70%. CBC at baseline, chemistry panel significant for moderate hyponatremia with sodium 127, chloride 89, bicarb 35.6, AST/ALT trended down to 355/372 respectively. We will discontinue phenobarbital which was supposed to be etiology for elevated liver enzymes. EEG official read was normal. Patient continues to be on Precedex and fentanyl drip. However, there was concern for breath stacking. Exam Vital Signs Temp Pulse Resp BP Pulse Ox O2 Del Method O2 Flow Rate 100.1 F 108 H 41 H 94/53 L 89 L Mechanical Ventilation 40 07/02/24 04:00 07/02/24 10:37 07/02/24 02:38 07/02/24 10:37 07/02/24 10:37 07/02/24 04:00 06/09/24 12:16 FiO2 70 07/02/24 10:37 Narrative Exam GEN: Critically ill, not acutely distressed, sedated and mechanically ventilated. Neuro: Deferred due to sedation. HEENT: NCAT, tracheostomy tube on appropriate position, mild abrasion over lower lips, improving. CVS: Mildly tachycardic, no M/R/G. No JVD Respi: Mechanically ventilated, b/l breath sounds heard, mild wheezing, no crackles, breath stacking ABD: Soft, no grimace to palpation, bowel sounds present in all 4 quadrants, PEG tube in appropriate place Skin: warm, dry and intact. Extremities: Pulses 2+ in all extremities, BUE edema, ruptured vesicles 1-2 cm on the rt forearm surface that have been healing. Objective Labs 07/02/24 09:00 07/02/24 09:00 Labs: Laboratory Results - last 24 hr 07/02/24 07/02/24 04:05 09:00 WBC 6.0 RBC 3.80 L Hgb 9.1 L Hct 29.7 L MCV 78 L MCH 23.9 L MCHC 30.6 L RDW Std Deviation 71.0 H Plt Count 277 Neut % (Auto) 78 Lymph % (Auto) 9 L [place] % (Auto) 5 Eos % (Auto) 7 Baso % (Auto) 1 Neut # (Auto) 4.7 Lymph # (Auto) 0.5 L [place] # (Auto) 0.3 Eos # (Auto) 0.4 Baso # (Auto) 0.0 Immature Gran # (Auto) 0.10 H Absolute Nucleated RBC 0.00 Immature Gran % 2 H Nucleated RBC % 0 APTT 35.0 D Puncture Site Right Radial ABG pH 7.46 H ABG pCO2 53 H ABG pO2 77 L ABG HCO3 38 H ABG O2 Saturation 96 ABG Base Excess 12 H FiO2 80 Sodium 127 L Potassium 4.4 Chloride 89 L Carbon Dioxide 35.6 H Anion Gap 2 L BUN 21 Creatinine 0.5 L Estim Creat Clear Calc 180.8 eGFR > 60 BUN/Creatinine Ratio 42 H Glucose 109 H Calculated Osmolality 259 L Calcium 7.5 L Corrected Calcium 8.6 Phosphorus 2.5 Magnesium 1.6 Total Bilirubin 0.3 AST 355 H ALT 372 H Alkaline Phosphatase 490 H D Total Protein 5.2 L Albumin 2.6 L Globulin 2.6 Albumin/Globulin Ratio 1.0 L ABG Interpretation ABG results: 05/27/24 05/29/24 05/29/24 23:37 10:44 22:08 ABG pH 7.51 H 7.50 H 7.48 H ABG pCO2 28 L 32 32 ABG pO2 75 L 79 L 145 H D ABG HCO3 23 25 24 ABG O2 Saturation 96 95 98 ABG Base Excess 0 2 1 05/30/24 05/31/24 06/04/24 08:45 04:54 02:10 ABG pH 7.47 H 7.45 7.45 ABG pCO2 35 38 36 ABG pO2 86 D 82 L 139 H ABG HCO3 26 26 25 ABG O2 Saturation 97 96 98 ABG Base Excess 2 2 1 06/04/24 06/05/24 06/05/24 18:16 11:36 12:59 ABG pH 7.44 7.11 L* D 7.20 L ABG pCO2 36 94 H* D 68 H D ABG pO2 80 L D 150 H D 121 H D ABG HCO3 24 30 H 26 ABG O2 Saturation 94 97 97 ABG Base Excess 0 -2 -3 06/05/24 06/06/24 06/06/24 19:25 04:13 15:27 ABG pH 7.22 L 7.27 L 7.30 L ABG pCO2 64 H 57 H 60 H ABG pO2 122 H 153 H D 74 L D ABG HCO3 26 26 29 H ABG O2 Saturation 97 99 H 92 ABG Base Excess -3 -2 2 06/07/24 06/07/24 06/08/24 03:55 09:59 04:20 ABG pH 7.41 D 7.43 7.45 ABG pCO2 56 H 55 H 50 H ABG pO2 293 H D 78 L D 75 L ABG HCO3 36 H 37 H 35 H ABG O2 Saturation 99 H 95 94 ABG Base Excess 10 H 11 H 10 H 06/08/24 06/08/24 06/08/24 11:05 11:50 13:18 ABG pH 7.17 L* D 7.10 L* 7.15 L* ABG pCO2 95 H* D 115 H* D 88 H* D ABG pO2 89 75 L 72 L ABG HCO3 34 H 36 H 31 H ABG O2 Saturation 92 84 L 85 L ABG Base Excess 3 4 H 0 06/08/24 06/09/24 06/09/24 17:02 01:33 03:15 ABG pH 7.18 L* 7.22 L 7.27 L ABG pCO2 50 H D 91 H* D 82 H* ABG pO2 82 L 105 D 86 ABG HCO3 19 L 37 H 38 H ABG O2 Saturation 93 97 95 ABG Base Excess -9 L 7 H 9 H 06/09/24 06/09/24 06/10/24 05:08 12:52 04:40 ABG pH 7.31 L 7.33 L 7.30 L ABG pCO2 75 H* 57 H D 78 H* D ABG pO2 97 158 H D 65 L D ABG HCO3 38 H 30 H 38 H ABG O2 Saturation 97 99 H 90 L ABG Base Excess 10 H 3 9 H 06/10/24 06/11/24 06/12/24 09:40 04:19 04:15 ABG pH 7.27 L 7.35 7.48 H D ABG pCO2 88 H* D 86 H* 63 H D ABG pO2 65 L 70 L 76 L ABG HCO3 40 H 48 H 47 H ABG O2 Saturation 89 L 93 95 ABG Base Excess 10 H 19 H 21 H 06/13/24 06/14/24 06/15/24 07:22 04:32 03:45 ABG pH 7.46 H 7.48 H 7.46 H ABG pCO2 56 H 40 D 37 ABG pO2 80 L 64 L 71 L ABG HCO3 39 H 30 H 27 H ABG O2 Saturation 95 92 94 ABG Base Excess 13 H 6 H 3 06/15/24 06/15/24 06/15/24 10:17 12:20 14:20 ABG pH 7.01 L* D 7.00 L* 7.03 L* ABG pCO2 122 H* D 130 H* 125 H* ABG pO2 91 D 88 82 L ABG HCO3 31 H 32 H 33 H ABG O2 Saturation 88 L 88 L 87 L ABG Base Excess -3 -2 -1 06/15/24 06/15/24 06/16/24 15:55 20:39 00:35 ABG pH 7.03 L* 7.08 L* 7.10 L* ABG pCO2 121 H* 116 H* 118 H* ABG pO2 99 117 H 102 ABG HCO3 32 H 34 H 37 H ABG O2 Saturation 93 97 96 ABG Base Excess -1 2 4 H 06/16/24 06/16/24 06/17/24 04:45 08:55 05:06 ABG pH 7.17 L* 7.28 L D 7.33 L ABG pCO2 112 H* 88 H* D 96 H* ABG pO2 155 H D 98 D 126 H D ABG HCO3 41 H 41 H 50 H ABG O2 Saturation 99 H 98 99 H ABG Base Excess 9 H 12 H 21 H 06/17/24 06/17/24 06/18/24 10:58 13:55 04:16 ABG pH 7.29 L 7.29 L 7.33 L ABG pCO2 106 H* D 106 H* 86 H* D ABG pO2 58 L* D 61 L 77 L ABG HCO3 51 H 51 H 45 H ABG O2 Saturation 87 L 88 L 95 ABG Base Excess 21 H 21 H 17 H 06/19/24 06/20/24 06/21/24 04:18 04:49 04:06 ABG pH 7.42 7.36 7.44 ABG pCO2 63 H D 74 H* D 61 H D ABG pO2 66 L 55 L* 202 H D ABG HCO3 41 H 42 H 42 H ABG O2 Saturation 93 87 L 100 H ABG Base Excess 15 H 14 H 16 H 06/22/24 06/23/24 06/24/24 04:18 04:29 04:25 ABG pH 7.45 7.46 H 7.29 L D ABG pCO2 57 H 53 H 80 H* D ABG pO2 60 L D 99 D 88 ABG HCO3 40 H 38 H 38 H ABG O2 Saturation 91 99 H 96 ABG Base Excess 14 H 13 H 9 H 06/24/24 06/25/24 06/25/24 08:50 05:13 11:02 ABG pH 7.40 D 7.46 H Cancelled ABG pCO2 61 H D 53 H Cancelled ABG pO2 110 H D 66 L D Cancelled ABG HCO3 38 H 38 H Cancelled ABG O2 Saturation 99 H 94 Cancelled ABG Base Excess 12 H 13 H Cancelled 06/25/24 06/26/24 06/26/24 15:53 04:13 11:40 ABG pH 7.39 7.41 7.46 H ABG pCO2 53 H 48 43 ABG pO2 55 L* 58 L* 58 L* ABG HCO3 32 H 30 H 31 H ABG O2 Saturation 86 L 89 L 92 ABG Base Excess 6 H 5 H 6 H 06/27/24 06/28/24 06/28/24 04:17 04:24 06:22 ABG pH 7.48 H 7.27 L D 7.22 L ABG pCO2 39 72 H* D 83 H* D ABG pO2 49 L* 71 L D 82 L ABG HCO3 29 H 33 H 34 H ABG O2 Saturation 87 L 93 95 ABG Base Excess 5 H 5 H 4 H 06/28/24 06/29/24 06/30/24 10:18 04:21 07:57 ABG pH 7.32 L D 7.41 7.41 ABG pCO2 64 H D 63 H 62 H ABG pO2 76 L 81 L 59 L* D ABG HCO3 33 H 40 H 40 H ABG O2 Saturation 95 97 88 L ABG Base Excess 6 H 14 H 13 H 07/02/24 04:05 ABG pH 7.46 H ABG pCO2 53 H ABG pO2 77 L ABG HCO3 38 H ABG O2 Saturation 96 ABG Base Excess 12 H Quality Measures Quality Measures sepsis Current suspected stage: sepsis Possible source: pulmonary, GI tract/intra-abdominal, genitourinary and skin/soft tissue Blood cultures ordered: yes Antibiotic ordered: Yes Assessment & Plan Assessment Current Active Medications: Generic Name Dose Route Start Last Admin Trade Name Freq PRN Reason Stop Dose Admin Acetaminophen 650 mg 06/26/24 15:16 07/01/24 05:53 Acetaminophen Munira 325 Mg/10 Ml Udc GT 07/26/24 15:15 650 mg Q4HR PRN Administration Pain Or Fever > 100.3 Albuterol/Ipratropium 3 ml 06/05/24 11:40 06/25/24 08:58 Albuterol/Ipratropium (Duoneb) Rt Munira 3 Ml Nebu INH 07/05/24 14:59 3 ml Q4HRRT PRN Administration Wheezing Artificial Tears 1 drop 06/18/24 12:00 07/02/24 05:01 Artificial Tears 225 Drop/15 Ml Btl BOTH EYES 07/18/24 11:59 1 drop QID JUAN JOSE Administration Calcium Carbonate 600 mg 06/28/24 13:00 07/01/24 12:50 Calcium Carbonate 600 Mg Tablet GT 07/28/24 12:59 600 mg QDAY@1300 JUAN JOSE Administration Clonazepam 2 mg 06/28/24 08:45 07/02/24 05:00 Clonazepam 0.5 Mg Tablet PO 07/19/24 08:44 2 mg TID JUAN JOSE Administration Dextrose 25 ml 06/06/24 08:20 Dextrose 50%-Water Inj 50 Ml Syringe IV 07/06/24 08:19 Q15MIN PRN BG 50-70 responsive npo pt Dextrose 50 ml 06/06/24 08:20 Dextrose 50%-Water Inj 50 Ml Syringe IV 07/06/24 08:19 Q15MIN PRN BG <50 OR BG <70 & pt unresponsive Docusate Sodium 100 mg 06/25/24 09:13 Docusate Sod Liqd 100 Mg/10 Ml Udc PO 07/22/24 08:59 BID PRN Constipation Protocol Docusate Sodium 250 mg 07/02/24 10:00 07/02/24 09:56 Docusate Sod Liqd 100 Mg/10 Ml Udc GT 07/31/24 09:14 250 mg BID JUAN JOSE Administration Protocol Emtricitabine/Tenofovir 1 tab 06/16/24 12:30 07/02/24 09:56 Emtricitabine 200 Mg/Tenofovir 300 Mg Tab (Non-Form) PO 07/16/24 12:29 1 tab QDAY JUAN JOSE Administration Ferrous Sulfate 300 mg 07/02/24 10:00 07/02/24 09:56 Ferrous Sulfate 300 Mg/5 Ml Udc GT 07/23/24 09:59 300 mg QDAY JUAN JOSE Administration Glucagon 1 mg 06/06/24 08:20 Glucagon Inj 1 Mg Vial IM Q15MIN PRN BG <70, and no IV access Linezolid 600 mg in 300 mls @ 300 mls/hr 06/27/24 09:00 07/02/24 09:52 Zyvox Ivpb IV 07/04/24 08:59 300 mls/hr Q12HR JUAN JOSE Administration Meropenem 1,000 mg/ Sodium 50 mls @ 100 mls/hr 06/27/24 08:45 07/02/24 05:30 Chloride IV 07/04/24 08:44 Infused Q8HR JUAN JOSE Infusion Norepinephrine/Dextrose 8 mg in 250 mls @ 6.319 mls/hr 06/30/24 04:17 07/02/24 10:00 Levophed In D5w 8mg/250ml IV 07/30/24 04:16 0.08 mcg/kg/min .Q24H PRN 10.11 mls/hr PER PROTOCOL Titration Protocol 0.05 MCG/KG/MIN Fentanyl Citrate 2,500 mcg in 250 mls @ 2.5 mls/hr 06/30/24 14:49 07/02/24 10:00 Sublimaze Inj 2,500 Mcg/250 Ml Bag IV 07/05/24 14:48 150 mcg/hr .Q24H PRN 15 mls/hr PER PROTOCOL Titration Protocol 25 MCG/HR Dexmedetomidine/Sodium Chloride 200 mcg in 50 mls @ 3.6 mls/hr 07/02/24 00:17 07/02/24 10:00 Precedex Ivpb IV 08/01/24 00:16 0.1 mcg/kg/hr .[id number] PRN 1.8 mls/hr Per PROTOCOL Titration Protocol 0.2 MCG/KG/HR Heparin Sodium/Dextrose 25,000 unit in 250 mls @ 13.5 mls/hr 07/02/24 09:45 07/02/24 11:03 Heparin In D5w Ivpb IV 07/16/24 09:44 18 units/kg/hr .[id number] JUAN JOSE 13.5 mls/hr Administration Protocol 18 UNITS/KG/HR Lorazepam 2 mg 06/27/24 22:20 07/02/24 04:38 Lorazepam 2 Mg/Ml Vial IVP 07/02/24 22:19 2 mg Q3H PRN Administration ANXIETY Magnesium Oxide 400 mg 07/02/24 10:30 07/02/24 11:20 Magnesium Oxide 400 Mg Tablet PO 07/04/24 10:29 400 mg BID JUAN JOSE Administration Metoprolol Tartrate 25 mg 06/30/24 09:41 07/02/24 08:52 Metoprolol Tartrate 25 Mg Tablet PO 07/29/24 20:59 Not Given BID JUAN JOSE Oxycodone HCl 10 mg 06/28/24 00:17 07/02/24 05:00 Oxycodone Hcl 5 Mg Ir Tab PO 07/03/24 00:16 10 mg TID JUAN JOSE Administration Phenobarbital 90 mg 06/22/24 14:00 07/01/24 05:52 Phenobarbital Elix 20 Mg/5 Ml Udc GT 07/18/24 13:59 90 mg TID JUAN JOSE Administration Potassium Phos/Sodium Phos 2 packet 06/30/24 07:30 07/02/24 05:01 Naph,Kph Mbdb 1 Packet (1.5 Gm) PO 07/30/24 07:29 2 packet TID JUAN JOSE Administration Prednisone 10 mg 06/26/24 09:00 07/02/24 09:52 Prednisone 5 Mg Tablet PO 07/26/24 08:59 10 mg QDAY JUAN JOSE Administration Quetiapine Fumarate 100 mg 06/28/24 21:00 07/02/24 09:52 Quetiapine Fumarate 100 Mg Tablet PO 07/25/24 20:59 100 mg BID JUAN JOSE Administration Raltegravir 400 mg 06/29/24 08:30 07/02/24 08:27 Raltegravir 400 Mg Tablet NG 07/06/24 08:29 400 mg BID@0700,1900 JUAN JOSE Administration Trimethoprim/Sulfamethoxazole 20 ml 06/23/24 09:00 07/02/24 09:53 Trimethoprim/Sulfa Susp 1 Ml PO 06/22/25 12:00 20 ml QDAY JUAN JOSE Administration Plan 39-year-old male patient with no PMHx who initially presented to [facility] on 05/27/2024 with a chief complaint of shortness of breath and cough, with associated chills, body aches, generalized weakness, fever, and night sweats beginning weeks prior but progressively worsening over a few days is currently being treated for acute hypoxic respiratory failure secondary to PCP pneumonia that was complicated by ventilator associated pneumonia. Patient is currently on tracheostomy tube and mechanically ventilated. 07/02/2024: The patient was in examined and evaluated at the bedside this morning. He was mildly tachycardic with heart rate ranging from 100- 110, saturating around 90% on FiO2 70%. Overnight, patient had 2 episodes of fever. Cooling measures were applied. As there was concern about low urine output, bladder scan revealed greater than 600 cc of urine in bladder. Straight cath was done x 2 and 1 L urine was obtained. This morning ABG revealed pH 7.46, pCO2 53, pO2 77 and bicarb 38 with ABG O2 saturation 96%, on FiO2 80% and after that FiO2 was decreased to 70%. CBC at baseline, chemistry panel significant for moderate hyponatremia with sodium 127, chloride 89, bicarb 35.6, AST/ALT trended down to 355/372 respectively. We will discontinue phenobarbital which was supposed to be etiology for elevated liver enzymes. EEG official read was normal. Patient continues to be on Precedex and fentanyl drip. However, there was concern for breath stacking. NEURO Patient is sedated and mechanically ventilated through tracheostomy tube. 06/05/2024 Patient was intubated, sedated, and paralyzed for ARDS. Currently on enteral sedatives clonazepam 2 Mg 3 times daily and oxycodone 10 Mg 3 times daily. -Patient was started back on fentanyl drip for further sedation as patient developed pneumomediastinum on 06/30/2024. Added presidex drip for proper sedation as the patient is having breath stacking. -MRI showed no acute hemorrhage, infarct, mass effect, or midline shift. No findings diagnostic for demyelinating disease. EEG was normal. #Fever Patient repeat fever overnight, Multiple cultures has been negative and on appropriate antibiotics -Treat underlying condition -Tylenol as needed CARDIO #Right upper extremity DVT. -Doppler US right upper extremity 06/17/24: revealed RUE DVT -On Heparin Drip, can be switched to oral anticoagulants #Sinus tachycardia Tachycardia most likely secondary to respiratory distress and agitation 2/2 AHRF in the setting of tapering down sedatives -Continue to treat the underlying cause -We will try fluid challenge with 250 cc of IV LR if sinus tachycardia persist to rule out hypovolemia. #Shock Most likely 2/2 sedation. BC has been negative and on appropriate antibiotics Patient presented with septic shock secondary to severe extensive bilateral pneumonia. After resolution of initial septic shock, patient developed new hypotension, tachycardia, tachypnea, fevers indicated of septic shock. -Pressor support as needed -Linezolid (started 06/27- -Meropenem (started 06/27- -Follow-up blood, urine, sputum cultures, and narrow down after results PULM #Chronic hypoxic respiratory failure Secondary to #Bilateral pneumocystis jirovecii pneumonia, resolved #Healthcare associated pneumonia, resolved, resolved #Ventilator associated pneumonia, resolved #Chronic respiratory distress syndrome as a consequence of ARDS 2/2 PCP pneumonia #S/P Tracheostomy #Pneumomediastinum Patient presented with dyspnea and cough, requiring 4L NC on first ED evaluation, and history of chills, body aches, generalized weakness, fever, and night sweats progressively worsening over the prior weeks. Approx 20-pack year smoking history, occasional marijuana. 06/17/2024 oxygenation and hypercapnia improved 06/30/2024: CT chest/abdomen/pelvis revealed pneumomediastinum On linezolid 600 mg q12h 06/15/24-06/22/24 Plan: -Linezolid (started 06/27) and Meropenum (startd 06/27) -Continue with daily Bactrim -Continue with prednisolone 10 mg daily for at least 4 more days -ABG as needed -Patient will be further sedated with fentanyl drip and Precedex drip there is breath stacking 2/2 ARDS in the setting of pneumomediastinum. GI GI prophylaxis: None as patient got extubated and is on tracheostomy tube. #Elevated LFTs, likely 2/2 phenobarbitol use Liver enzymes started trending down after discontinuing phenobarbitol. liver US 05/30/2024 showed normal gallbladder and hepatomegaly without lesions or evidence of obstructions. Hep panel negative. LFTs downtrending Plan: -Continue monitoring #Hypertriglyceridemia, trending down More likely secondary to propofol use -We repeated lipid panel on 06/30/2024- 183 NEPHRO #Hypophosphatemia, stable #WILL, resolved #Hyperkalemia---Resolved #Hyperphosphatemia, resolved Hypophosphatemia likely secondary to nutritional deficiency, further complicated by decreased absorption due to patient being on Bactrim and calcium carbonate. Plan: -Discontinued Veltassa as potassium has been in the lower end of normal value -Continue to monitor phosphorus and replete as needed -Maintain euvolemia -Replete electrolytes as needed. #Mild hyponatremia Secondary to SIADH due to acute hypoxic respiratory failure leading to pulmonary distress -Continue to monitor #NAGMA #Primary Respiratory acidosis compensated by metabolic alkalosis, stable Secondary to increased work of breathing and increased RR 2/2 chronic hypoxic respiratory failure and chronic respiratory distress syndrome in the setting of tapering down of IV sedatives -ABGs revealed pH of 7.46, pCO2 53, pO2 66 and bicarb 38. -ABG on 06/28/2024 revealed pH of 7.32, pCO2 64 and bicarb 33.1. -We will treat the underlying cause HEME #Leukocytosis, resolved Fluctuating WBC. In the setting of likely infection, inflammation, and corticosteroids. 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 Clinically no evidence of bleeding. Iron panel shows iron 17, TIBC 262, iron saturation 6, unsaturated iron binding 245. Peripheral blood film confirms microcytic hypochromic anemia with target cells. Also daily lab draws contributing. Plan: -Started on oral ferrous sulfate 325 Mg daily -Monitor H&H. Transfusing for Hgb <7 #Thrombocytosis, resolved Likely reactive. -Continue to monitor ENDO #Hypoglycemia, resolved Blood glucose this morning was 69, likely secondary to increased metabolic acid complicated by stopping enteral feeding -Bolus D50W given -Repeat blood sugar was stable -We will resume enteral feeding after PEG tube placement ID #Bilateral pneumocystis pneumonia #Healthcare associated pneumonia #Ventilator associated pneumonia #PCP pneumonia prophylaxis Negative studies: Cocci IgM and IgG, Hepatitis panel, Syphilis, Legionella, H.flu, N.meningitidis, Strep B, Strep pneumoniae, COVID, RSV, Flu A & B. TB quantiferon GOLD-indeterminate, however 06/05 AFB negative, CMV IgM, cryptococcal antigen negative. G6PD levels came back normal for consideration of dapsone alternative to Bactrim if needed. Patient completed 5 day course of azithromycin, 16 days of Zosyn. See Pulm for timeline of antimicrobial coverage. On 06/27 patient developed new septic shock Plan: -Antibiotcs Bactrim for prevention of PCP pneumonia in the setting of CD4 count of 116 -Linezolid and meropenum restarted on 06/27/2024- -Urine ackerman port grew GPC, Staph epidermidis that is MDR, sensitive to linezolid. -Fungal cultures from BAL pending, follow-up on results -Blood cultures from 06/26/2024 and 06/27/2024, negative so far, cultures drawn on 06/29/2024 is pending -Follow up blood, sputum, and urine cultures #AIDS/HIV Patient has Stage 4 HIV, AIDS-defining illness with opportunistic infection. 06/07/2024 Bronchoalveolar lavage cytology shows Pneumocystis jirovecii. Also other fungi, possibly Kassandra. Kassandra is most likely a contaminant. Blood xgvf-M-ptosbc also positive. 06/08/2024 HIV quant 5.66 million copies. HIV 1 positive confirmed. 06/09/2024 Patient's decision maker, Francesca, was informed of diagnosis due to critical state of patient. Absolute CD4 count 87 and 22% on 06/02. History/risk factors: History of injection anabolic androgenic steroid and testosterone use, possible unclean needles. History of incarceration (unknown time). Tattoos received as a teenager. Has 1 female sexual partner last 5 years, denies others. -Continue HAART: emtricitabine / tenofovir (Truvada) and raltegravir initiated 06/09/24 -Patient is not aware of his diagnosis as he has been intubated and sedated before results returned. Will require complete education and counseling on the disease if his mental status and clinical condition improves. 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 The patient is being downgraded to telemetry unit for further management of chronic hypoxic respiratory failure s/p tracheostomy. DVT prophylaxis: On heparin drip for treatment of right upper extremity DVT GI prophylaxis: Pantoprazole 40 mg IV qday, discontinued Diet: Tube feeds Ackerman: No, condom cath Lines: Peripheral IV, removed rt femoral central line on 06/28/24 Antibiotics: Bactrim, linezolid, meropenum CODE STATUS: FULL CODE Patient plan of care was discussed with the attending physician, Dr. Walsh. Jeff Pacheco MD, PGY2
[2024-07-02] MEDS: CALCIUM CARBONATE 600 MG TABLET GT (13:00)
--- NOTE | 2024-07-02 13:51 | PC.NURSE ---
bladder scan complete and reported to Dr. Pacheco, per Dr. Pacheco complete in/out catheter
--- NOTE | 2024-07-02 17:11 | PC.NURSE ---
at 0736 patient has increased breathing, per Dr. bruce fentanyl increased to 150 mcg/hr, orders received for rocuronium
--- NOTE | 2024-07-02 17:13 | PC.NURSE ---
at [address] Pacheco, continue bladder scan q6 hours, bladder scan complete with 380ml, per Dr. Pacheco, in and out catheter complete with 300ml urine out
--- NOTE | 2024-07-02 17:28 | PC.NURSE ---
Dr. Pacheco aware
[2024-07-02 18:00] LABS: Partial Thromboplastin Time 48.4 Seconds (22.0-36.0)
--- NOTE | 2024-07-02 18:44 | PC.NURSE ---
bladder scan complete, 434ml total, Dr. Pacheco notified, order received for in and out cath, 350 ml out
[2024-07-02] MEDS: HEPARIN SOD INJ 5000 UNIT/ML VIAL 3000 UNIT IVP (19:23)
[2024-07-03] VITALS (108 sets, daily range): BP systolic 81–137; BP diastolic 46–87; PULSE 76–192; RESP 19–74; TEMP 36.2–38.4; O2SAT 74–100; BMI 25.9
[2024-07-03] MEDS: fentaNYL 2,500 MCG/250 ML BAG 2,500 MCG/250 ML BAG 15 MCG IV ×2 (00:10→15:50)
[2024-07-03 01:37] LABS: Partial Thromboplastin Time 80.9 Seconds (22.0-36.0)
[2024-07-03] MEDS: DEXMEDETOMIDINE 200 MCG IVPB 200 MCG/50 ML BOTTLE 18 MCG IV ×2 (02:26→05:12)
[2024-07-03 04:56] LABS: Allen Test Performed/OK; Base Excess 13 (-3-3); HCO3 39 mEq/L (20-26); Inspired Oxygen, FIO2 75 %; O2 Saturation 98 % (91-98); PCO2 58 mmHg (32.0-48.0); PO2 100 mmHg (83-108); Puncture Site Right Radial; pH, Arterial 7.43 (7.35-7.45)
[2024-07-03] MEDS: Heparin/D5w 25K 250 ML Ivpb 25,000 UNIT/250 ML BAG 13.5 UNIT IV (05:12)
[2024-07-03] MEDS: MEROPENEM INJ 1,000 MG in SODIUM CHLORIDE 0.9% (P) 50 ML 100 MG IV ×3 (05:53→21:00)
[2024-07-03] MEDS: NAPH,KPH MBDB 1 PACKET (1.5 GM) 2 PACKET PO ×3 (05:53→21:00)
[2024-07-03] MEDS: Artificial Tears 225 DROP/15 ML BTL BOTH EYES ×4 (05:53→21:03)
[2024-07-03] MEDS: clonazePAM 0.5 MG TABLET 2 MG PO ×3 (05:54→21:03)
[2024-07-03 06:10] LABS: Basophils % (Auto) 1 % (0-2.5); Eosinophils # (Auto) 0.1 Thou/mm3 (0.0-0.5); Eosinophils % (Auto) 2 % (0-10); Hematocrit 29.1 % (41.0-53.0); Hemoglobin 9.1 g/dL (13.5-16.0); Immature Granulocytes % (Auto) 1 % (0-0); Immature Granulocytes Auto 0.09 Thou/mm3 (0.00-0.00); Lymphocytes # (Auto) 0.8 Thou/mm3 (1.0-4.8); Lymphocytes % (Auto) 12 % (10-50); Mean Corpuscular HGB Conc 31.3 g/dl (31.0-37.0); Mean Corpuscular Hemoglobin 24.2 pg (25.0-35.0); Mean Corpuscular Volume 77 fL (80-100); Monocytes # (Auto) 0.3 Thou/mm3 (0.0-0.8); Monocytes % (Auto) 4 % (0-12); Neutrophils # (Auto) 5.1 Thou/mm3 (1.8-7.7); Neutrophils % (Auto) 80 % (37-80); Nucleated Red Blood Cell % 0 /100 WBC (0); Platelet Count 303 Thou/mm3 (140-440); RDW Standard Deviation 69.1 fL (35.1-43.9); Red Blood Count 3.76 Miln/mm3 (4.50-5.90); White Blood Count 6.4 Thou/mm3 (3.8-10.6)
[2024-07-03 06:34] LABS: Alanine Aminotransferase 295 U/L (10-49); Albumin, Serum 2.7 gm/dL (3.5-5.0); Alkaline Phosphatase 532 U/L (46-116); Anion Gap 5 (7-16); Aspartate Amino Transferase 236 U/L (0-34); BUN/Creatinine Ratio 35 Ratio (12-20); Bilirubin,Total 0.3 mg/dL (0.3-1.2); Blood Urea Nitrogen 21 mg/dL (9-23); Calcium 7.7 mg/dL (8.3-10.6); Calcium (Corrected) 8.7 mg/dL (8.5-10.1); Carbon Dioxide 34.5 mMol/L (20.0-31.0); Chloride 89 mMol/L (98-107); Creatinine (Component) 0.6 mg/dL (0.6-1.3); Estimated Creatinine Clearance 150.6 mL/min (>60); Globulin 2.8 gm/dL (2.3-3.5); Glucose 105 mg/dL (74-106); Osmolality,Calculated 260 (275-295); Phosphorous 3.1 mg/dL (2.4-5.1); Potassium 4.5 mMol/L (3.4-5.1); Sodium 128 mMol/L (136-145); Total Protein 5.5 gm/dL (5.7-8.2); eGFR > 60 See Note
[2024-07-03] MEDS: DEXMEDETOMIDINE 200 MCG IVPB 200 MCG/50 ML BOTTLE 14.4 MCG IV ×4 (07:49→15:50)
--- NOTE | 2024-07-03 08:10 | XR_ITS ---
Examination: AP chest single view Technique one AP portable upright chest single view Exam date and time: July 01, 2024 at 0559 hrs. Comparison July 01, 2024 Indications: History ARDS severe pneumonia, hypoxia Findings: Severe bilateral lung opacity again noted Tracheal tube tip 4 cm above sunil Mild prominence left ventricle No pneumothorax Impression: No significant change in severe bilateral pneumonia ARDS pattern
[2024-07-03] MEDS: QUEtiapine FUMARATE 100 MG TABLET PO ×2 (08:31→21:00)
[2024-07-03] MEDS: LINEZOLID 600 MG IVPB 600 MG/300 ML BAG 300 MG IV ×2 (08:32→20:59)
[2024-07-03] MEDS: MAGNESIUM OXIDE 400 MG TABLET PO ×2 (08:32→20:59)
[2024-07-03] MEDS: Ferrous Sulfate 300 MG/5 ML UDC GT (08:32)
[2024-07-03] MEDS: EMTRICITABINE 200 MG/TENOFOVIR 300 MG TAB (NON-FORM) 1 TAB PO (08:32)
[2024-07-03] MEDS: RALTEGRAVIR 400 MG TABLET NG ×2 (08:33→21:03)
[2024-07-03] MEDS: TRIMETHOPRIM PO (08:35)
[2024-07-03] MEDS: SULFAMETHOXAZOLE PO (08:35)
[2024-07-03] MEDS: MIDODRINE 5 MG TABLET 10 MG PO ×3 (09:46→21:00)
[2024-07-03] MEDS: Norepinephrine/D5W 8mg/250ml 8 MG/250 ML BAG 5.055 MG IV (10:00)
[2024-07-03 10:37] LABS: Partial Thromboplastin Time 29.9 Seconds (22.0-36.0)
[2024-07-03] MEDS: HEPARIN SOD INJ 5000 UNIT/ML VIAL 6000 UNIT IV (11:06)
[2024-07-03] MEDS: ACETYLCYSTEINE SOL 20% 4 ML NEBU 3 ML INH ×2 (12:16→18:36)
[2024-07-03] MEDS: ALBUTEROL/IPRATROPIUM (Duoneb) RT SOL 3 ML NEBU INH ×2 (12:16→18:36)
--- NOTE | 2024-07-03 13:37 | ESPR_ITS ---
Documentation for date of: 07/03/24 Subjective Subjective Interval history: This is a 39-year-old male who presented to the ER on 27 May. Initially he presented for shortness of breath cough and general malaise. Apparently he had been feeling unwell for the last 2 to 3 weeks. He did have some nonproductive cough. Chest x-ray showed bilateral diffuse infiltrates and the medicine team was contacted. He was admitted to the floor and placed on high flow nasal cannula initially at 100% FiO2 and started on antibiotics. He was started on fluconazole as well as Levaquin given that there was a high suspicion for underlying cocci pneumonia. He has had 2 rapid responses over the last 48 hours due to hypoxia and desatting. The patient is able to tolerate minimal movements prior to desatting. Today the ICU is consulted for further evaluation. The patient is currently on 80% FiO2 he is awake alert and oriented. He states that he has shortness of breath however minimal cough. He does complain of some upper abdominal/lower rib pain which he attributes to his recent cough. He denies any chest pain. Does note that he has had some night sweats and fever over the last several days. There has been no significant improvement since arrival 3 days ago. His respiratory status remains unchanged if not slightly worse. He is currently on isolation with airborne precautions behind a closed door. At this point in time due to an abundance of caution as well as closer observation and monitoring we will transfer to the ICU for ongoing management of his acute hypoxic respiratory failure. I did discuss with the patient the probable need for intubation in the near future. He is okay with intubation 05/31- no acute overnight events, decrease in FiO2 needs, feels better with less WOB today, afebrile, 06/05-patient had been returned to the floor where initially he did well. Apparently over the last 24 to 36 hours he has had an increase in FiO2 requirements with a rapid response called last night. Rapid response called again this morning. Patient stated that he felt tired and unable to keep up. He is on 100% FiO2. He desats with minimal exertion. The decision was made to bring him to the ICU for intubation. This was discussed with the patient while he was awake and his family as well. 06/06- overnight pt remained on NMB, versed/prop/fent. brisk UOP >100cc/hr , afebrile, labs this AM showed a K of 7.8 for which he received insulin/Ca/D50/kayexolate 06/07-patient underwent dialysis yesterday for refractory hyperkalemia, he remains on deep sedation however off of propofol and off of paralytic. Continues with a good urinary output. Afebrile, have been able to come down on his FiO2 however persistent bilateral infiltrates severe on exam without conclusive underlying etiology as of this point in time. 06/08-no acute overnight events, this a.m. attempted to decrease sedation however patient became agitated and desatted. Required increased to 100% FiO2. When patient was suctioned blood was returned from the ET tube. Patient required paralytic and bagging in order to improve his sats. 06/23-has had a prolonged hospital course thus far. Was unable to be weaned from the vent. He was scheduled for tracheostomy today which took place with Dr Rayn. His Versed drip was stopped today. He remains on propofol and fentanyl. He is on multiple p.o. medications for severe agitation. Net negative over the last 24 hours however net positive since hospital stay. Afebrile 06/24- s/p trach yesterday, scheduled for PEG today, afebrile, vent dysynchrony overnight reason for which his fent was increased, off of prop. good UOP, afebrile 06/25- no acute overnight evetns, s/p PEG yesterday, afebrile, good UOP, intermittent episodes of tachypnea, attempting to wean fent off 06/26-off of fentanyl, yesterday spiked a fever of 101. Blood cultures were sent. No other acute overnight events 06/27- overnight became hypotensive receiving 2lts of IVF and then requiring vasopressors. He is clammy and diaphoretic today, good UOP 06/28-overnight patient appears to have come off of vasopressors the BP is currently low normal. Continues to have low-grade temp. It was found overnight that the patient's narcotics had fallen off of his med rec therefore some of his symptoms may have been related to withdrawal. His meds were reinstated. He was very tachycardic overnight. 06/29- no acute overnight events, off pressors, off all drips, Tm 103.9 yesterday morning 12/12- overnight spiked a temp again and dropped his pressures. He received 2lts of IVF however was still hypotensive and therefore started on levophed once more. He has remained on meropenem/linezolid for the last 4 days. trialled yesterday on PSV and lasted for ~4hrs 07/01-yesterday patient CT came back with a pneumomediastinum. The patient's blood pressure remains tenuous requiring vasopressor support. He was restarted on sedation yesterday. He continues to spike temps and have low-grade fevers requiring cooling measures. 07/02-the patient continues with an increased respiratory rate, phenobarbital held yesterday due to increasing LFTs. Continues with intermittent fever, overnight had some urinary retention requiring straight cath, condom cath still in place, no change in his mentation 07/03- no acute overnight events, low grade temp but no fever, decreasing levo needs Critical Care Note Critical care time (min.): 45 Exam Vital Signs Temp Pulse Resp BP Pulse Ox O2 Del Method O2 Flow Rate 99.9 F 99 38 H 81/49 L 99 Mechanical Ventilation 40 07/03/24 12:00 07/03/24 12:45 07/03/24 12:19 07/03/24 12:45 07/03/24 12:45 07/03/24 12:00 06/09/24 12:16 FiO2 80 07/03/24 12:19 Narrative Exam Gen- s/p trach, chronically ill appearing, tachypneic HEENT- NC/AT, mucosa hydrated, sclera anicteric Chest- coarse breath sounds, crackles, occasional expiratory wheeze, HRRR, tachycardic Abd- s/nt/bs+, PEG in place Ext- edema, pulses palp, no clubbing, no mottling, Vent AC VC Drips fent levo Physical Exam Completion Physical Exam Complete?: Yes 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 07/03/24 05:04 07/03/24 05:04 Labs: Laboratory Results - last 24 hr 07/02/24 07/03/24 07/03/24 17:06 00:52 04:45 WBC RBC Hgb Hct MCV MCH MCHC RDW Std Deviation Plt Count Neut % (Auto) Lymph % (Auto) [place] % (Auto) Eos % (Auto) Baso % (Auto) Neut # (Auto) Lymph # (Auto) [place] # (Auto) Eos # (Auto) Baso # (Auto) Immature Gran # (Auto) Absolute Nucleated RBC Immature Gran % Nucleated RBC % APTT 48.4 H D 80.9 H D Puncture Site Right Radial ABG pH 7.43 ABG pCO2 58 H ABG pO2 100 D ABG HCO3 39 H ABG O2 Saturation 98 ABG Base Excess 13 H FiO2 75 Sodium Potassium Chloride Carbon Dioxide Anion Gap BUN Creatinine Estim Creat Clear Calc eGFR BUN/Creatinine Ratio Glucose Calculated Osmolality Calcium Corrected Calcium Phosphorus Magnesium Total Bilirubin AST ALT Alkaline Phosphatase Total Protein Albumin Globulin Albumin/Globulin Ratio 07/03/24 07/03/24 05:04 09:38 WBC 6.4 RBC 3.76 L Hgb 9.1 L Hct 29.1 L MCV 77 L MCH 24.2 L MCHC 31.3 RDW Std Deviation 69.1 H Plt Count 303 Neut % (Auto) 80 Lymph % (Auto) 12 [place] % (Auto) 4 Eos % (Auto) 2 Baso % (Auto) 1 Neut # (Auto) 5.1 Lymph # (Auto) 0.8 L [place] # (Auto) 0.3 Eos # (Auto) 0.1 Baso # (Auto) 0.0 Immature Gran # (Auto) 0.09 H Absolute Nucleated RBC 0.00 Immature Gran % 1 H Nucleated RBC % 0 APTT 29.9 D Puncture Site ABG pH ABG pCO2 ABG pO2 ABG HCO3 ABG O2 Saturation ABG Base Excess FiO2 Sodium 128 L Potassium 4.5 Chloride 89 L Carbon Dioxide 34.5 H Anion Gap 5 L BUN 21 Creatinine 0.6 Estim Creat Clear Calc 150.6 eGFR > 60 BUN/Creatinine Ratio 35 H Glucose 105 Calculated Osmolality 260 L Calcium 7.7 L Corrected Calcium 8.7 Phosphorus 3.1 Magnesium 2.0 Total Bilirubin 0.3 AST 236 H ALT 295 H Alkaline Phosphatase 532 H D Total Protein 5.5 L Albumin 2.7 L Globulin 2.8 Albumin/Globulin Ratio 1.0 L Assessment & Plan Problem List (1) Acute respiratory failure with hypoxia: Status: Acute Additional Assessment Additional Assessment: In brief this is a 39y M admitted for SOB and acute hypoxic resp failure with b/l PNA. 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 He was started on p.o. Seroquel and phenobarbital. He is also on Klonopin and oxycodone. - remains intermittently agitated but profoundly encephalopathic -EEG without seizures -MRI did not show any significant injury or lesions - no change in mentation - back on drips for sedation -Off of phenobarbital CV Septic shock- on and off levophed - cont on meropenem and linezolid day #7 -> now completed - Ucx with MDR staph epi which is sensitive to linezolid - sputum cx with staph haemolyticus also MDR sensitive to linezolid - LA elevated this AM -> cont to follow-> trended back down -Remains on low-dose Levophed, will start midodrine - started on high dose solumedrol yesterday for tx of ? 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 monitor - mild - some decrease from yesterday WILL- resolved HypoPhos-repleted daily - d/w dietary for supplements Hypokalemia-resolved GI Transaminitis- Hep viral panel is neg, - ? cholestasis - US did not show any CBD obstruction - will hold tylenol and phenobarb today-> Numbers trending down therefore felt to be related to the phenobarbital. This will be stopped - improving #s GI proph- PPI Endo Hypoglycemia-resolved HyperTrig- may be 2/2 prop -> stopped yesterday - recheck in a few days Heme Microcytic Anemia-iron deficiency anemia - on PO iron - stable DVT right upper extremity -heparin drip ID PNA-secondary to PCP VAP - grew out VRE and staph hemolyticus on 06/09 - seen by ID and recs noted HIV/ AIDS- on HAART tx -> fu with ID - JAYME proph if CD4 <50 - ID feels current fevers may be related to IRIS - on solumedrol 40mg IV q8-> if improvement in fever and hemodynamics may be related to IRIS, will cont to eval over next 36hr UTI- Ucx with MDR staph epi -> completed 7 days tx case d/w ICU team poor overall prognosis labs, imaging, records reviewed ~45ccmin required for eval, exam, review, intervention , discussion and formulation of POC for this critically ill pt with resp failure at high risk for further and ongoing decompensation Provider Notation Provider Notation: Although this document has been carefully reviewed, there may still be some phonetic and other typographical errors. These errors are purely grammatical due to imperfections in the software program and should not be construed in any way to compromise the substance of the patient's medical care during this visit. Thank you for the opportunity and privilege in assisting you with this patient's care and management.
[2024-07-03] MEDS: CALCIUM CARBONATE 600 MG TABLET GT (14:25)
--- NOTE | 2024-07-03 15:02 | ESPR_ITS ---
Documentation for date of: 07/03/24 Subjective Subjective Interval history: 06/26/2024: The patient was examined and evaluated at the bedside this morning. Patient is off of any sedatives or pressor support. Patient is mechanically ventilated through tracheostomy tube. The patient had 1 episode of fever overnight, and blood culture is pending. His heart rate has been in the range of 120s to 130s with RR between 28-36, saturating 92% on FiO2 50%. The patient received 2 mg IV hydromorphone x 1. His hemoglobin has been stable at 8.9, we will continue with oral ferrous sulfate 325 Mg daily, ABG revealed pH 7.46, pCO2 43, pO2 58 and bicarb 31. He received 1 dose of Diamox 500 Mg IV, sodium 130, potassium 3.5 and Veltassa was discontinued, phosphorus was 1.4 and we will repeat it further. The patient will be downgraded to telemetry unit we will continue with enteral sedatives phenobarbital 90 Mg 3 times daily, clonazepam 2 mg 3 times daily, oxycodone 10 mg 3 times daily and Seroquel 100 Mg twice daily. His sedatives will be continued for 2 weeks at this point and after that the plan is to taper down the sedatives. We will continue with HAART, micafungin until fungal culture is negative and continue with Bactrim DS daily for PCP pneumonia prophylaxis. 06/27/2024: Patient seen and examined in bedside in the ICU. Overnight patient developed hypotension, tachycardia, tachypnea, fever, was scheduled for downgrade but was readmitted to ICU for septic shock requiring pressors. Patient is mechanically ventilated via trach tube. New blood cultures, sputum cultures, urine cultures collected. Patient started on linezolid and meropenem. Continue enteral sedation. Repleted potassium and phosphorus. 06/28/2024: The patient was examined and evaluated at the bedside this morning. He continues to be mechanically ventilated through tracheostomy tube. Overnight patient did not had any fever. His urine output was about 3 L and he is negative by about 850 cc. His heart rate was in 150's, that trended down to 130s, further trended down to 100s. This morning ABG was significant for pH of 7.27 that trended down to pH of 7.2 with pCO2 of 72 and 83 respectively. Tidal volume was increased to 450 cc, and later ABG revealed pH 7.32 with pCO2 64. Brain MRI done yesterday was significant only for bilateral mastoiditis. EEG results pending. Blood cultures has been negative for 24 hours, Dr Hope was informed about restarting the patient on linezolid and meropenem, and he recommended continuing steroid for longer duration. We will continue with internal sedation. His corrected calcium was 8.4 and was started on oral calcium carbonate. We will follow-up on blood culture results and narrow down antibiotics as needed. 06/29/2024: The patient was examined and evaluated at the bedside this morning. He was started on automatic mode ventilation through tracheostomy tube and he tolerated it well. Patient did not had any fever overnight. His urine culture revealed positive for GPC, final cultures pending. His heart rate has been ranging from 120s to 150s with RR 23, saturating 96% on FiO2 40. Hemoglobin has been stable 9.4, ABG revealing pCO2 63, pO2 81 and bicarb 40 with ABG O2 saturation 97%. He continues to have mild hyponatremia with sodium of 133, and phosphorus 1.5 despite repeating multiple times. His triglyceride continues to decrease and today it is 183. The patient is to be continued on internal sedatives with phenobarbital 90 Mg 3 times daily, Ativan 2 Mg 3 times daily and oxycodone 10 Mg 3 times daily at least for 2 weeks, then slowly taper down. And also continue on prednisone 10 Mg daily for at least 1 week and then taper down. 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 06/30/2024: The patient was examined and evaluated at the bedside this morning. He was saturating well on mechanical ventilation through tracheostomy tube with heart rate in 70s. Overnight, patient developed 2 episodes of fever. Initially his MAP was less than 65, and sepsis protocol was initiated. 2 L of IV bolus crystalloid fluid was given. Blood culture, urine culture were sent, CXR done. Patient initially improved from hypotension with MAP of greater than 65, but earlier this morning the patient started dropping his blood pressure with MAP less than 65, and was started on Levophed drip. He is CBC has been at baseline, and ABG revealed pcO2 62, pO2 59 with bicarb of 40. His sodium continues to be in mild hyponatremic range with 135, bicarb 33.8. Corrected calcium 8.4 with phosphorus 1.2 which were repleted. His AST and ALT has been trending up from yesterday, 601/364 with ALP 295 and albumin 2.5. Pro-Jayy was 1.03. Chest/abdomen/pelvis CT with contrast was done that was significant for severe bilateral pneumonia with ARDS pattern, pneumomediastinum with hepatosplenomegaly. US liver was significant for gallbladder sludge, negative for cholelithiasis or cholecystitis. 07/02/2024: The patient was in examined and evaluated at the bedside this morning. He was mildly tachycardic with heart rate ranging from 100- 110, saturating around 90% on FiO2 70%. Overnight, patient had 2 episodes of fever. Cooling measures were applied. As there was concern about low urine output, bladder scan revealed greater than 600 cc of urine in bladder. Straight cath was done x 2 and 1 L urine was obtained. This morning ABG revealed pH 7.46, pCO2 53, pO2 77 and bicarb 38 with ABG O2 saturation 96%, on FiO2 80% and after that FiO2 was decreased to 70%. CBC at baseline, chemistry panel significant for moderate hyponatremia with sodium 127, chloride 89, bicarb 35.6, AST/ALT trended down to 355/372 respectively. We will discontinue phenobarbital which was supposed to be etiology for elevated liver enzymes. EEG official read was normal. Patient continues to be on Precedex and fentanyl drip. However, there was concern for breath stacking. 07/03/2024: Patient seen and examined at bedside. Patient is mildly tachycardic, 100-110, sinus tachy. Patient has produced good urinary output. Patient remains on levophed, midodrine added for additional BP support.AST/ALT continues to trend down following phenobarbital discontinuation. Patient continues to have breath stacking despite sedation. Mucomist and duonebs added due to copious secretions. Exam Vital Signs Temp Pulse Resp BP Pulse Ox O2 Del Method O2 Flow Rate 99.9 F 105 H 38 H 120/70 95 Mechanical Ventilation 40 07/03/24 12:00 07/03/24 14:45 07/03/24 12:19 07/03/24 14:45 07/03/24 14:45 07/03/24 14:00 06/09/24 12:16 FiO2 80 07/03/24 14:00 Narrative Exam GEN: Critically ill, not acutely distressed, sedated and mechanically ventilated. Neuro: Deferred due to sedation. HEENT: NCAT, tracheostomy tube on appropriate position, mild abrasion over lower lips, improving. CVS: Mildly tachycardic, no M/R/G. No JVD Respi: Mechanically ventilated, b/l breath sounds heard, significant rhonchi in all lung rosas. ABD: Soft, no grimace to palpation, bowel sounds present in all 4 quadrants, PEG tube in appropriate place Skin: warm, dry and intact. Extremities: Pulses 2+ in all extremities, bilateral upper and lower extremity edema, ruptured vesicles 1-2 cm on the rt forearm surface that have been healing. Objective Labs 07/03/24 05:04 07/03/24 05:04 Labs: Laboratory Results - last 24 hr 07/02/24 07/03/24 07/03/24 17:06 00:52 04:45 WBC RBC Hgb Hct MCV MCH MCHC RDW Std Deviation Plt Count Neut % (Auto) Lymph % (Auto) Banks % (Auto) Eos % (Auto) Baso % (Auto) Neut # (Auto) Lymph # (Auto) Banks # (Auto) Eos # (Auto) Baso # (Auto) Immature Gran # (Auto) Absolute Nucleated RBC Immature Gran % Nucleated RBC % APTT 48.4 H D 80.9 H D Puncture Site Right Radial ABG pH 7.43 ABG pCO2 58 H ABG pO2 100 D ABG HCO3 39 H ABG O2 Saturation 98 ABG Base Excess 13 H FiO2 75 Sodium Potassium Chloride Carbon Dioxide Anion Gap BUN Creatinine Estim Creat Clear Calc eGFR BUN/Creatinine Ratio Glucose Calculated Osmolality Calcium Corrected Calcium Phosphorus Magnesium Total Bilirubin AST ALT Alkaline Phosphatase Total Protein Albumin Globulin Albumin/Globulin Ratio 07/03/24 07/03/24 05:04 09:38 WBC 6.4 RBC 3.76 L Hgb 9.1 L Hct 29.1 L MCV 77 L MCH 24.2 L MCHC 31.3 RDW Std Deviation 69.1 H Plt Count 303 Neut % (Auto) 80 Lymph % (Auto) 12 Banks % (Auto) 4 Eos % (Auto) 2 Baso % (Auto) 1 Neut # (Auto) 5.1 Lymph # (Auto) 0.8 L Banks # (Auto) 0.3 Eos # (Auto) 0.1 Baso # (Auto) 0.0 Immature Gran # (Auto) 0.09 H Absolute Nucleated RBC 0.00 Immature Gran % 1 H Nucleated RBC % 0 APTT 29.9 D Puncture Site ABG pH ABG pCO2 ABG pO2 ABG HCO3 ABG O2 Saturation ABG Base Excess FiO2 Sodium 128 L Potassium 4.5 Chloride 89 L Carbon Dioxide 34.5 H Anion Gap 5 L BUN 21 Creatinine 0.6 Estim Creat Clear Calc 150.6 eGFR > 60 BUN/Creatinine Ratio 35 H Glucose 105 Calculated Osmolality 260 L Calcium 7.7 L Corrected Calcium 8.7 Phosphorus 3.1 Magnesium 2.0 Total Bilirubin 0.3 AST 236 H ALT 295 H Alkaline Phosphatase 532 H D Total Protein 5.5 L Albumin 2.7 L Globulin 2.8 Albumin/Globulin Ratio 1.0 L ABG Interpretation ABG results: 05/27/24 05/29/24 05/29/24 23:37 10:44 22:08 ABG pH 7.51 H 7.50 H 7.48 H ABG pCO2 28 L 32 32 ABG pO2 75 L 79 L 145 H D ABG HCO3 23 25 24 ABG O2 Saturation 96 95 98 ABG Base Excess 0 2 1 05/30/24 05/31/24 06/04/24 08:45 04:54 02:10 ABG pH 7.47 H 7.45 7.45 ABG pCO2 35 38 36 ABG pO2 86 D 82 L 139 H ABG HCO3 26 26 25 ABG O2 Saturation 97 96 98 ABG Base Excess 2 2 1 06/04/24 06/05/24 06/05/24 18:16 11:36 12:59 ABG pH 7.44 7.11 L* D 7.20 L ABG pCO2 36 94 H* D 68 H D ABG pO2 80 L D 150 H D 121 H D ABG HCO3 24 30 H 26 ABG O2 Saturation 94 97 97 ABG Base Excess 0 -2 -3 06/05/24 06/06/24 06/06/24 19:25 04:13 15:27 ABG pH 7.22 L 7.27 L 7.30 L ABG pCO2 64 H 57 H 60 H ABG pO2 122 H 153 H D 74 L D ABG HCO3 26 26 29 H ABG O2 Saturation 97 99 H 92 ABG Base Excess -3 -2 2 06/07/24 06/07/24 06/08/24 03:55 09:59 04:20 ABG pH 7.41 D 7.43 7.45 ABG pCO2 56 H 55 H 50 H ABG pO2 293 H D 78 L D 75 L ABG HCO3 36 H 37 H 35 H ABG O2 Saturation 99 H 95 94 ABG Base Excess 10 H 11 H 10 H 06/08/24 06/08/24 06/08/24 11:05 11:50 13:18 ABG pH 7.17 L* D 7.10 L* 7.15 L* ABG pCO2 95 H* D 115 H* D 88 H* D ABG pO2 89 75 L 72 L ABG HCO3 34 H 36 H 31 H ABG O2 Saturation 92 84 L 85 L ABG Base Excess 3 4 H 0 06/08/24 06/09/24 06/09/24 17:02 01:33 03:15 ABG pH 7.18 L* 7.22 L 7.27 L ABG pCO2 50 H D 91 H* D 82 H* ABG pO2 82 L 105 D 86 ABG HCO3 19 L 37 H 38 H ABG O2 Saturation 93 97 95 ABG Base Excess -9 L 7 H 9 H 06/09/24 06/09/24 06/10/24 05:08 12:52 04:40 ABG pH 7.31 L 7.33 L 7.30 L ABG pCO2 75 H* 57 H D 78 H* D ABG pO2 97 158 H D 65 L D ABG HCO3 38 H 30 H 38 H ABG O2 Saturation 97 99 H 90 L ABG Base Excess 10 H 3 9 H 06/10/24 06/11/24 06/12/24 09:40 04:19 04:15 ABG pH 7.27 L 7.35 7.48 H D ABG pCO2 88 H* D 86 H* 63 H D ABG pO2 65 L 70 L 76 L ABG HCO3 40 H 48 H 47 H ABG O2 Saturation 89 L 93 95 ABG Base Excess 10 H 19 H 21 H 06/13/24 06/14/24 06/15/24 07:22 04:32 03:45 ABG pH 7.46 H 7.48 H 7.46 H ABG pCO2 56 H 40 D 37 ABG pO2 80 L 64 L 71 L ABG HCO3 39 H 30 H 27 H ABG O2 Saturation 95 92 94 ABG Base Excess 13 H 6 H 3 06/15/24 06/15/24 06/15/24 10:17 12:20 14:20 ABG pH 7.01 L* D 7.00 L* 7.03 L* ABG pCO2 122 H* D 130 H* 125 H* ABG pO2 91 D 88 82 L ABG HCO3 31 H 32 H 33 H ABG O2 Saturation 88 L 88 L 87 L ABG Base Excess -3 -2 -1 06/15/24 06/15/24 06/16/24 15:55 20:39 00:35 ABG pH 7.03 L* 7.08 L* 7.10 L* ABG pCO2 121 H* 116 H* 118 H* ABG pO2 99 117 H 102 ABG HCO3 32 H 34 H 37 H ABG O2 Saturation 93 97 96 ABG Base Excess -1 2 4 H 06/16/24 06/16/24 06/17/24 04:45 08:55 05:06 ABG pH 7.17 L* 7.28 L D 7.33 L ABG pCO2 112 H* 88 H* D 96 H* ABG pO2 155 H D 98 D 126 H D ABG HCO3 41 H 41 H 50 H ABG O2 Saturation 99 H 98 99 H ABG Base Excess 9 H 12 H 21 H 06/17/24 06/17/24 06/18/24 10:58 13:55 04:16 ABG pH 7.29 L 7.29 L 7.33 L ABG pCO2 106 H* D 106 H* 86 H* D ABG pO2 58 L* D 61 L 77 L ABG HCO3 51 H 51 H 45 H ABG O2 Saturation 87 L 88 L 95 ABG Base Excess 21 H 21 H 17 H 06/19/24 06/20/24 06/21/24 04:18 04:49 04:06 ABG pH 7.42 7.36 7.44 ABG pCO2 63 H D 74 H* D 61 H D ABG pO2 66 L 55 L* 202 H D ABG HCO3 41 H 42 H 42 H ABG O2 Saturation 93 87 L 100 H ABG Base Excess 15 H 14 H 16 H 06/22/24 06/23/24 06/24/24 04:18 04:29 04:25 ABG pH 7.45 7.46 H 7.29 L D ABG pCO2 57 H 53 H 80 H* D ABG pO2 60 L D 99 D 88 ABG HCO3 40 H 38 H 38 H ABG O2 Saturation 91 99 H 96 ABG Base Excess 14 H 13 H 9 H 06/24/24 06/25/24 06/25/24 08:50 05:13 11:02 ABG pH 7.40 D 7.46 H Cancelled ABG pCO2 61 H D 53 H Cancelled ABG pO2 110 H D 66 L D Cancelled ABG HCO3 38 H 38 H Cancelled ABG O2 Saturation 99 H 94 Cancelled ABG Base Excess 12 H 13 H Cancelled 06/25/24 06/26/24 06/26/24 15:53 04:13 11:40 ABG pH 7.39 7.41 7.46 H ABG pCO2 53 H 48 43 ABG pO2 55 L* 58 L* 58 L* ABG HCO3 32 H 30 H 31 H ABG O2 Saturation 86 L 89 L 92 ABG Base Excess 6 H 5 H 6 H 06/27/24 06/28/24 06/28/24 04:17 04:24 06:22 ABG pH 7.48 H 7.27 L D 7.22 L ABG pCO2 39 72 H* D 83 H* D ABG pO2 49 L* 71 L D 82 L ABG HCO3 29 H 33 H 34 H ABG O2 Saturation 87 L 93 95 ABG Base Excess 5 H 5 H 4 H 06/28/24 06/29/24 06/30/24 10:18 04:21 07:57 ABG pH 7.32 L D 7.41 7.41 ABG pCO2 64 H D 63 H 62 H ABG pO2 76 L 81 L 59 L* D ABG HCO3 33 H 40 H 40 H ABG O2 Saturation 95 97 88 L ABG Base Excess 6 H 14 H 13 H 07/02/24 07/03/24 04:05 04:45 ABG pH 7.46 H 7.43 ABG pCO2 53 H 58 H ABG pO2 77 L 100 D ABG HCO3 38 H 39 H ABG O2 Saturation 96 98 ABG Base Excess 12 H 13 H Quality Measures Quality Measures sepsis Current suspected stage: sepsis Possible source: pulmonary, GI tract/intra-abdominal, genitourinary and skin/soft tissue Blood cultures ordered: yes Antibiotic ordered: Yes Assessment & Plan Assessment Current Active Medications: Generic Name Dose Route Start Last Admin Trade Name Freq PRN Reason Stop Dose Admin Acetaminophen 650 mg 06/26/24 15:16 07/01/24 05:53 Acetaminophen Munira 325 Mg/10 Ml Udc GT 07/26/24 15:15 650 mg Q4HR PRN Administration Pain Or Fever > 100.3 Acetylcysteine 3 ml 07/03/24 13:00 07/03/24 12:16 Acetylcysteine Munira 20% 4 Ml Nebu INH 08/02/24 12:59 3 ml Q6HRRT JUAN JOSE Administration Albuterol/Ipratropium 3 ml 06/05/24 11:40 06/25/24 08:58 Albuterol/Ipratropium (Duoneb) Rt Munira 3 Ml Nebu INH 07/05/24 14:59 3 ml Q4HRRT PRN Administration Wheezing Albuterol/Ipratropium 3 ml 07/03/24 13:00 07/03/24 12:16 Albuterol/Ipratropium (Duoneb) Rt Munira 3 Ml Nebu INH 08/02/24 12:59 3 ml Q6HRRT JUAN JOSE Administration Artificial Tears 1 drop 06/18/24 12:00 07/03/24 11:12 Artificial Tears 225 Drop/15 Ml Btl BOTH EYES 07/18/24 11:59 1 drop QID JUAN JOSE Administration Calcium Carbonate 600 mg 06/28/24 13:00 07/03/24 14:25 Calcium Carbonate 600 Mg Tablet GT 07/28/24 12:59 600 mg QDAY@1300 JUAN JOSE Administration Clonazepam 2 mg 06/28/24 08:45 07/03/24 14:25 Clonazepam 0.5 Mg Tablet PO 07/19/24 08:44 2 mg TID JUAN JOSE Administration Dextrose 25 ml 06/06/24 08:20 Dextrose 50%-Water Inj 50 Ml Syringe IV 07/06/24 08:19 Q15MIN PRN BG 50-70 responsive npo pt Dextrose 50 ml 06/06/24 08:20 Dextrose 50%-Water Inj 50 Ml Syringe IV 07/06/24 08:19 Q15MIN PRN BG <50 OR BG <70 & pt unresponsive Docusate Sodium 100 mg 06/25/24 09:13 Docusate Sod Liqd 100 Mg/10 Ml Udc PO 07/22/24 08:59 BID PRN Constipation Protocol Docusate Sodium 250 mg 07/02/24 10:00 07/02/24 20:13 Docusate Sod Liqd 100 Mg/10 Ml Udc GT 07/31/24 09:14 250 mg BID JUAN JOSE Administration Protocol Emtricitabine/Tenofovir 1 tab 06/16/24 12:30 07/03/24 08:32 Emtricitabine 200 Mg/Tenofovir 300 Mg Tab (Non-Form) PO 07/16/24 12:29 1 tab QDAY JUAN JOSE Administration Ferrous Sulfate 300 mg 07/02/24 10:00 07/03/24 08:32 Ferrous Sulfate 300 Mg/5 Ml Udc GT 07/23/24 09:59 300 mg QDAY JUAN JOSE Administration Glucagon 1 mg 06/06/24 08:20 Glucagon Inj 1 Mg Vial IM Q15MIN PRN BG <70, and no IV access Linezolid 600 mg in 300 mls @ 300 mls/hr 06/27/24 09:00 07/03/24 10:00 Zyvox Ivpb IV 07/04/24 08:59 Infused Q12HR JUAN JOSE Infusion Meropenem 1,000 mg/ Sodium 50 mls @ 100 mls/hr 06/27/24 08:45 07/03/24 14:26 Chloride IV 07/04/24 08:44 100 mls/hr Q8HR JUAN JOSE Administration Norepinephrine/Dextrose 8 mg in 250 mls @ 6.319 mls/hr 06/30/24 04:17 07/03/24 10:00 Levophed In D5w 8mg/250ml IV 07/30/24 04:16 0.04 mcg/kg/min .Q24H PRN 5.055 mls/hr PER PROTOCOL Administration Protocol 0.05 MCG/KG/MIN Fentanyl Citrate 2,500 mcg in 250 mls @ 2.5 mls/hr 06/30/24 14:49 07/03/24 06:00 Sublimaze Inj 2,500 Mcg/250 Ml Bag IV 07/05/24 14:48 150 mcg/hr .Q24H PRN 15 mls/hr PER PROTOCOL Titration Protocol 25 MCG/HR Dexmedetomidine/Sodium Chloride 200 mcg in 50 mls @ 3.6 mls/hr 07/02/24 00:17 07/03/24 12:12 Precedex Ivpb IV 08/01/24 00:16 0.8 mcg/kg/hr .[id number] PRN 14.4 mls/hr Per PROTOCOL Administration Protocol 0.2 MCG/KG/HR Heparin Sodium/Dextrose 25,000 unit in 250 mls @ 13.5 mls/hr 07/02/24 09:45 07/03/24 11:07 Heparin In D5w Ivpb IV 07/16/24 09:44 22 units/kg/hr .[id number] JUAN JOSE 16.5 mls/hr Titration Protocol 18 UNITS/KG/HR Magnesium Oxide 400 mg 07/02/24 10:30 07/03/24 08:32 Magnesium Oxide 400 Mg Tablet PO 07/04/24 10:29 400 mg BID JUAN JOSE Administration Methylprednisolone Sodium Succinate 40 mg 07/02/24 17:15 07/03/24 14:26 Methylprednisolone Sod Succ 40 Mg Vial IVP 07/09/24 17:14 40 mg TID JUAN JOSE Administration Metoprolol Tartrate 25 mg 06/30/24 09:41 07/03/24 08:32 Metoprolol Tartrate 25 Mg Tablet PO 07/29/24 20:59 Not Given BID JUAN JOSE Midodrine 10 mg 07/03/24 09:15 07/03/24 14:25 Midodrine 5 Mg Tablet PO 08/02/24 09:14 10 mg TID JUAN JOSE Administration Potassium Phos/Sodium Phos 2 packet 06/30/24 07:30 07/03/24 14:26 Naph,[facility] Mbdb 1 Packet (1.5 Gm) PO 07/30/24 07:29 2 packet TID JUAN JOSE Administration Quetiapine Fumarate 100 mg 06/28/24 21:00 07/03/24 08:31 Quetiapine Fumarate 100 Mg Tablet PO 07/25/24 20:59 100 mg BID JUAN JOSE Administration Raltegravir 400 mg 07/02/24 21:00 07/03/24 08:33 Raltegravir 400 Mg Tablet NG 07/09/24 20:59 400 mg BID JUAN JOSE Administration Trimethoprim/Sulfamethoxazole 20 ml 06/23/24 09:00 07/03/24 08:35 Trimethoprim/Sulfa Susp 1 Ml PO 06/22/25 12:00 20 ml QDAY JUAN JOSE Administration Plan 39-year-old male patient with no PMHx who initially presented to [facility] on 05[facility]24 with a chief complaint of shortness of breath and cough, with associated chills, body aches, generalized weakness, fever, and night sweats beginning weeks prior but progressively worsening over a few days is currently being treated for acute hypoxic respiratory failure secondary to PCP pneumonia that was complicated by ventilator associated pneumonia. Patient is currently on tracheostomy tube and mechanically ventilated. 07/02/2024: The patient was in examined and evaluated at the bedside this morning. He was mildly tachycardic with heart rate ranging from 100- 110, saturating around 90% on FiO2 70%. Overnight, patient had 2 episodes of fever. Cooling measures were applied. As there was concern about low urine output, bladder scan revealed greater than 600 cc of urine in bladder. Straight cath was done x 2 and 1 L urine was obtained. This morning ABG revealed pH 7.46, pCO2 53, pO2 77 and bicarb 38 with ABG O2 saturation 96%, on FiO2 80% and after that FiO2 was decreased to 70%. CBC at baseline, chemistry panel significant for moderate hyponatremia with sodium 127, chloride 89, bicarb 35.6, AST/ALT trended down to 355/372 respectively. We will discontinue phenobarbital which was supposed to be etiology for elevated liver enzymes. EEG official read was normal. Patient continues to be on Precedex and fentanyl drip. However, there was concern for breath stacking. NEURO Patient is sedated and mechanically ventilated through tracheostomy tube. 06/05/2024 Patient was intubated, sedated, and paralyzed for ARDS. Currently on enteral sedatives clonazepam 2 Mg 3 times daily and oxycodone 10 Mg 3 times daily. -Patient was started back on fentanyl drip for further sedation as patient developed pneumomediastinum on 06/30/2024. Added presidex drip for proper sedation as the patient is having breath stacking. -MRI showed no acute hemorrhage, infarct, mass effect, or midline shift. No findings diagnostic for demyelinating disease. EEG was normal. #Fever Patient repeat fever overnight, Multiple cultures has been negative and on appropriate antibiotics -Treat underlying condition -Tylenol as needed CARDIO #Right upper extremity DVT. -Doppler US right upper extremity 06/17/24: revealed RUE DVT -On Heparin Drip, can be switched to oral anticoagulants #Sinus tachycardia Tachycardia most likely secondary to respiratory distress and agitation 2/2 AHRF in the setting of tapering down sedatives -Continue to treat the underlying cause -metoprolol tartrate 25mg BID #Shock Most likely 2/2 sedation. BC has been negative and on appropriate antibiotics Patient presented with septic shock secondary to severe extensive bilateral pneumonia. After resolution of initial septic shock, patient developed new hypotension, tachycardia, tachypnea, fevers indicated of septic shock. -Pressor support as needed -Linezolid (started 06/27-07/04) -Meropenem (started 06/27-07/04) -Urine (06/27) showed resistant staph epi -Blood (06/27) showed resistant Staphylococcus haemolyticus -follow up repeat blood cultures and urine cultures PULM #Chronic hypoxic respiratory failure Secondary to #Bilateral pneumocystis jirovecii pneumonia, resolved #Healthcare associated pneumonia, resolved, resolved #Ventilator associated pneumonia, resolved #Chronic respiratory distress syndrome as a consequence of ARDS 2/2 PCP pneumonia #S/P Tracheostomy #Pneumomediastinum Patient presented with dyspnea and cough, requiring 4L NC on first ED evaluation, and history of chills, body aches, generalized weakness, fever, and night sweats progressively worsening over the prior weeks. Approx 20-pack year smoking history, occasional marijuana. 06/17/2024 oxygenation and hypercapnia improved 06/30/2024: CT chest/abdomen/pelvis revealed pneumomediastinum On linezolid 600 mg q12h 06/15/24-06/22/24 Plan: -Linezolid (started 06/27-07/04) and Meropenum (started 06/27-07/04) -Continue with daily Bactrim -ABG as needed -Patient will be further sedated with fentanyl drip and Precedex drip there is breath stacking 2/2 ARDS in the setting of pneumomediastinum. GI GI prophylaxis: None as patient got extubated and is on tracheostomy tube. #Elevated LFTs 2/2 phenobarbitol use Liver enzymes started trending down after discontinuing phenobarbitol. liver US 05/30/2024 showed normal gallbladder and hepatomegaly without lesions or evidence of obstructions. Hep panel negative. LFTs downtrending Plan: -Continue monitoring #Hypertriglyceridemia, trending down More likely secondary to propofol use -We repeated lipid panel on 06/30/2024- 183 NEPHRO #Hypophosphatemia, stable #WILL, resolved #Hyperkalemia---Resolved #Hyperphosphatemia, resolved Hypophosphatemia likely secondary to nutritional deficiency, further complicated by decreased absorption due to patient being on Bactrim and calcium carbonate. Plan: -Discontinued Veltassa as potassium has been in the lower end of normal value -Continue to monitor phosphorus and replete as needed -Maintain euvolemia -Replete electrolytes as needed. #Mild hyponatremia Secondary to SIADH due to acute hypoxic respiratory failure leading to pulmonary distress -Continue to monitor #NAGMA #Primary Respiratory acidosis compensated by metabolic alkalosis, stable Secondary to increased work of breathing and increased RR 2/2 chronic hypoxic respiratory failure and chronic respiratory distress syndrome in the setting of tapering down of IV sedatives -ABGs revealed pH of 7.46, pCO2 53, pO2 66 and bicarb 38. -ABG on 06/28/2024 revealed pH of 7.32, pCO2 64 and bicarb 33.1. -We will treat the underlying cause HEME #Leukocytosis, resolved Fluctuating WBC. In the setting of likely infection, inflammation, and corticosteroids. 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 Clinically no evidence of bleeding. Iron panel shows iron 17, TIBC 262, iron saturation 6, unsaturated iron binding 245. Peripheral blood film confirms microcytic hypochromic anemia with target cells. Also daily lab draws contributing. Plan: -Started on oral ferrous sulfate 325 Mg daily -Monitor H&H. Transfusing for Hgb <7 #Thrombocytosis, resolved Likely reactive. -Continue to monitor ENDO #Hypoglycemia, resolved Blood glucose this morning was 69, likely secondary to increased metabolic acid complicated by stopping enteral feeding -Bolus D50W given -Repeat blood sugar was stable -Enteral feeding ID #Bilateral pneumocystis pneumonia #Healthcare associated pneumonia #Ventilator associated pneumonia #PCP pneumonia prophylaxis Negative studies: Cocci IgM and IgG, Hepatitis panel, Syphilis, Legionella, H.flu, N.meningitidis, Strep B, Strep pneumoniae, COVID, RSV, Flu A & B. TB quantiferon GOLD-indeterminate, however 06/05 AFB negative, CMV IgM, cryptococcal antigen negative. G6PD levels came back normal for consideration of dapsone alternative to Bactrim if needed. Patient completed 5 day course of azithromycin, 16 days of Zosyn. See Pulm for timeline of antimicrobial coverage. On 06/27 patient developed new septic shock Plan: -Antibiotcs Bactrim for prevention of PCP pneumonia in the setting of CD4 count of 116 -Linezolid and meropenum restarted on 06/27/2024- -Urine ackerman port grew GPC, Staph epidermidis that is MDR, sensitive to linezolid. -Fungal cultures from BAL pending, follow-up on results -Blood cultures from 06/26/2024 and 06/27/2024, negative so far, cultures drawn on 06/29/2024 is pending -Follow up blood, sputum, and urine cultures #AIDS/HIV Patient has Stage 4 HIV, AIDS-defining illness with opportunistic infection. 06/07/2024 Bronchoalveolar lavage cytology shows Pneumocystis jirovecii. Also other fungi, possibly Kassandra. Kassandra is most likely a contaminant. Blood lnfq-[id number]-iofdvm also positive. 06/08/2024 HIV quant 5.66 million copies. HIV 1 positive confirmed. 06/09/2024 Patient's decision maker, Francesca, was informed of diagnosis due to critical state of patient. Absolute CD4 count 87 and 22% on 06/02. History/risk factors: History of injection anabolic androgenic steroid and testosterone use, possible unclean needles. History of incarceration (unknown time). Tattoos received as a teenager. Has 1 female sexual partner last 5 years, denies others. -Continue HAART: emtricitabine / tenofovir (Truvada) and raltegravir initiated 06/09/24 -Patient is not aware of his diagnosis as he has been intubated and sedated before results returned. Will require complete education and counseling on the disease if his mental status and clinical condition improves. 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 The patient is being downgraded to telemetry unit for further management of chronic hypoxic respiratory failure s/p tracheostomy. DVT prophylaxis: On heparin drip for treatment of right upper extremity DVT GI prophylaxis: Pantoprazole 40 mg IV qday, discontinued Diet: Tube feeds Ackerman: No, condom cath Lines: Peripheral IV, removed rt femoral central line on 06/28/24 Antibiotics: Bactrim, linezolid, meropenum CODE STATUS: FULL CODE Patient plan of care was discussed with the attending physician, Dr. Walsh. Landon Tracey MD PGY-1
[2024-07-03] MEDS: ACETAMINOPHEN SOL 325 MG/10 ML UDC 650 MG GT (15:48)
[2024-07-03 17:53] LABS: Partial Thromboplastin Time 85.9 Seconds (22.0-36.0)
[2024-07-03] MEDS: DEXMEDETOMIDINE 200 MCG IVPB 200 MCG/50 ML BOTTLE 21.6 MCG IV (18:58)
[2024-07-03] MEDS: DEXMEDETOMIDINE 200 MCG IVPB 200 MCG/50 ML BOTTLE IV (22:10)
[2024-07-04] VITALS (113 sets, daily range): BP systolic 87–164; BP diastolic 45–78; PULSE 77–148; RESP 11–75; TEMP 37.2–39.1; O2SAT 75–100; BMI 25.9
[2024-07-04] MEDS: Heparin/D5w 25K 250 ML Ivpb 25,000 UNIT/250 ML BAG 15 UNIT IV ×2 (00:25→19:10)
[2024-07-04 01:24] LABS: Partial Thromboplastin Time 75.1 Seconds (22.0-36.0)
[2024-07-04] MEDS: DEXMEDETOMIDINE 200 MCG IVPB 200 MCG/50 ML BOTTLE IV (03:00)
[2024-07-04 04:34] LABS: Base Excess 13 (-3-3); HCO3 40 mEq/L (20-26); Inspired Oxygen, FIO2 100 %; O2 Saturation 94 % (91-98); PCO2 67 mmHg (32.0-48.0); PO2 73 mmHg (83-108); pH, Arterial 7.38 (7.35-7.45)
[2024-07-04 04:40] LABS: Allen Test Performed/OK; Puncture Site Right Radial
--- NOTE | 2024-07-04 04:57 | PC.RT ---
pt on 100% fio2 due to continuously desating to 70's, 80's and having coughing spells. Rn Ramy law.
--- NOTE | 2024-07-04 05:00 | XR_ITS ---
Examination: AP chest single view Technique one AP portable semiupright chest single view Exam date and time: July 04, 2024 0518 hrs. Comparison July 03, 2024 Findings: No change in severe lung opacity Normal heart size Tracheostomy tube tip 4.7 cm above sunil Impression: No change in severe pneumonia ARDS pattern
[2024-07-04] MEDS: IPRATROPIUM RT 0.5 MG/ 2.5 ML NEBU 1 MG INH (05:09)
[2024-07-04] MEDS: ALBUTEROL RT 2.5 MG/0.5 ML NEBU 10 MG INH (05:09)
--- NOTE | 2024-07-04 05:43 | PC.RT ---
increased peep to +10 and spo2 maintaining 88-94%. pt was unable to maintain spo2 >88% and was sustaining spo2 <85%. SHANAE Mccann is aware and MD Batres made aware.
[2024-07-04 05:56] LABS: Basophils % (Auto) 0 % (0-2.5); Eosinophils % (Auto) 0 % (0-10); Hematocrit 28.7 % (41.0-53.0); Immature Granulocytes % (Auto) 1 % (0-0); Immature Granulocytes Auto 0.09 Thou/mm3 (0.00-0.00); Lymphocytes # (Auto) 0.9 Thou/mm3 (1.0-4.8); Lymphocytes % (Auto) 8 % (10-50); Mean Corpuscular HGB Conc 30.7 g/dl (31.0-37.0); Mean Corpuscular Hemoglobin 24.4 pg (25.0-35.0); Mean Corpuscular Volume 80 fL (80-100); Monocytes # (Auto) 0.6 Thou/mm3 (0.0-0.8); Monocytes % (Auto) 6 % (0-12); Neutrophils # (Auto) 8.7 Thou/mm3 (1.8-7.7); Neutrophils % (Auto) 85 % (37-80); Nucleated Red Blood Cell % 0 /100 WBC (0); Platelet Count 343 Thou/mm3 (140-440); RDW Standard Deviation 72.1 fL (35.1-43.9); White Blood Count 10.3 Thou/mm3 (3.8-10.6)
[2024-07-04] MEDS: MIDODRINE 5 MG TABLET 10 MG PO ×3 (05:57→21:06)
[2024-07-04] MEDS: Artificial Tears 225 DROP/15 ML BTL BOTH EYES ×4 (05:57→20:21)
[2024-07-04] MEDS: NAPH,KPH MBDB 1 PACKET (1.5 GM) 2 PACKET PO ×3 (06:00→21:07)
[2024-07-04] MEDS: MEROPENEM INJ 1,000 MG in SODIUM CHLORIDE 0.9% (P) 50 ML 100 MG IV (06:01)
[2024-07-04] MEDS: clonazePAM 0.5 MG TABLET 2 MG PO ×3 (06:01→21:06)
[2024-07-04 06:09] LABS: Hemoglobin 8.8 g/dL (13.5-16.0)
[2024-07-04] MEDS: MIDAZOLAM INJ 1 MG/ML VIAL 2 ML 2 MG IV ×2 (06:17→06:37)
[2024-07-04] MEDS: ACETYLCYSTEINE SOL 20% 4 ML NEBU 3 ML INH ×4 (06:22→19:09)
[2024-07-04] MEDS: ALBUTEROL/IPRATROPIUM (Duoneb) RT SOL 3 ML NEBU INH ×4 (06:22→19:09)
[2024-07-04] MEDS: fentaNYL 2,500 MCG/250 ML BAG 2,500 MCG/250 ML BAG 20 MCG IV (06:27)
[2024-07-04] MEDS: DEXMEDETOMIDINE 200 MCG IVPB 200 MCG/50 ML BOTTLE 18 MCG IV (06:28)
[2024-07-04 06:31] LABS: Alanine Aminotransferase 201 U/L (10-49); Albumin, Serum 2.5 gm/dL (3.5-5.0); Albumin/Globulin Ratio 0.8 (1.2-2.2); Alkaline Phosphatase 444 U/L (46-116); Anion Gap 5 (7-16); Aspartate Amino Transferase 161 U/L (0-34); BUN/Creatinine Ratio 38 Ratio (12-20); Bilirubin,Total 0.2 mg/dL (0.3-1.2); Blood Urea Nitrogen 19 mg/dL (9-23); Calcium 8.2 mg/dL (8.3-10.6); Calcium (Corrected) 9.4 mg/dL (8.5-10.1); Carbon Dioxide 36.4 mMol/L (20.0-31.0); Chloride 91 mMol/L (98-107); Creatinine (Component) 0.5 mg/dL (0.6-1.3); Estimated Creatinine Clearance 180.8 mL/min (>60); Glucose 95 mg/dL (74-106); Osmolality,Calculated 266 (275-295); Potassium 4.8 mMol/L (3.4-5.1); Sodium 132 mMol/L (136-145); Total Protein 5.5 gm/dL (5.7-8.2); eGFR > 60 See Note
[2024-07-04] MEDS: PROPOFOL 1,000 MG IVPB 1,000 MG/100 ML VIAL 9 MG IV (06:39)
[2024-07-04] MEDS: ROCURONIUM INJ 10 MG/ML VIAL 10 ML 30 MG IVP (06:43)
[2024-07-04 06:56] LABS: Partial Thromboplastin Time 54.3 Seconds (22.0-36.0)
[2024-07-04] MEDS: DEXMEDETOMIDINE 200 MCG IVPB 200 MCG/50 ML BOTTLE 25.2 MCG IV ×6 (08:35→17:45)
[2024-07-04] MEDS: EMTRICITABINE 200 MG/TENOFOVIR 300 MG TAB (NON-FORM) 1 TAB PO (08:36)
[2024-07-04] MEDS: QUEtiapine FUMARATE 100 MG TABLET PO ×2 (08:36→20:20)
[2024-07-04] MEDS: MAGNESIUM OXIDE 400 MG TABLET PO (08:36)
[2024-07-04] MEDS: SULFAMETHOXAZOLE PO (08:37)
[2024-07-04] MEDS: Ferrous Sulfate 300 MG/5 ML UDC GT (08:37)
[2024-07-04] MEDS: RALTEGRAVIR 400 MG TABLET NG ×2 (08:37→20:20)
[2024-07-04] MEDS: TRIMETHOPRIM PO (08:37)
[2024-07-04 10:13] LABS: COVID-19 Antigen (In-House) Negative (Negative); Influenza A Ag Negative; Influenza B Ag Negative
--- NOTE | 2024-07-04 10:26 | ESPR_ITS ---
Subjective Subjective Interval history: hiv pos. cd4 < 200, so on bactrim for prevention. will send out R testing as hiv was confirmed with elevated vl and pjp from bal about 3 weeks ago Exam Vital Signs Temp Pulse Resp BP Pulse Ox O2 Del Method O2 Flow Rate 102.4 F H 108 H 39 H 88/54 L 97 Mechanical Ventilation 40 07/04/24 08:00 07/04/24 09:56 07/04/24 06:24 07/04/24 09:56 07/04/24 09:56 07/04/24 09:00 06/09/24 12:16 FiO2 100 07/04/24 09:56 Narrative Exam on 100% O2. O2 obviously variable, not typical for pjp, but can occur for other reasons as well. will see what happens to fever with tid prednisone dosing although it started on thursday, so am ok if you want to restart empiric abx pending micro data rash on rt arm around site of tatoo noted. cause uncertain Objective - Internal Medicine Labs 07/04/24 04:55 07/04/24 04:55 Labs: Laboratory Results - last 24 hr 07/03/24 07/03/24 07/04/24 09:38 16:58 00:39 WBC RBC Hgb Hct MCV MCH MCHC RDW Std Deviation Plt Count Neut % (Auto) Lymph % (Auto) [place] % (Auto) Eos % (Auto) Baso % (Auto) Neut # (Auto) Lymph # (Auto) [place] # (Auto) Eos # (Auto) Baso # (Auto) Immature Gran # (Auto) Absolute Nucleated RBC Immature Gran % Nucleated RBC % PT INR APTT 29.9 D 85.9 H D 75.1 H D Puncture Site ABG pH ABG pCO2 ABG pO2 ABG HCO3 ABG O2 Saturation ABG Base Excess FiO2 Sodium Potassium Chloride Carbon Dioxide Anion Gap BUN Creatinine Estim Creat Clear Calc eGFR BUN/Creatinine Ratio Glucose Calculated Osmolality Calcium Corrected Calcium Total Bilirubin AST ALT Alkaline Phosphatase Total Protein Albumin Globulin Albumin/Globulin Ratio Influenza A (Rapid) Influenza B (Rapid) SARS-CoV-2 Ag (Rapid) 07/04/24 07/04/24 07/04/24 04:11 04:55 08:47 WBC 10.3 D RBC 3.60 L Hgb 8.8 L Hct 28.7 L MCV 80 MCH 24.4 L MCHC 30.7 L RDW Std Deviation 72.1 H Plt Count 343 D Neut % (Auto) 85 H Lymph % (Auto) 8 L [place] % (Auto) 6 Eos % (Auto) 0 Baso % (Auto) 0 Neut # (Auto) 8.7 H Lymph # (Auto) 0.9 L [place] # (Auto) 0.6 Eos # (Auto) 0.0 Baso # (Auto) 0.0 Immature Gran # (Auto) 0.09 H Absolute Nucleated RBC 0.00 Immature Gran % 1 H Nucleated RBC % 0 PT 11.0 D INR 1.0 APTT 54.3 H D Puncture Site Right Radial ABG pH 7.38 ABG pCO2 67 H ABG pO2 73 L D ABG HCO3 40 H ABG O2 Saturation 94 ABG Base Excess 13 H FiO2 100 Sodium 132 L Potassium 4.8 Chloride 91 L Carbon Dioxide 36.4 H Anion Gap 5 L BUN 19 Creatinine 0.5 L Estim Creat Clear Calc 180.8 eGFR > 60 BUN/Creatinine Ratio 38 H Glucose 95 Calculated Osmolality 266 L Calcium 8.2 L Corrected Calcium 9.4 Total Bilirubin 0.2 L AST 161 H ALT 201 H Alkaline Phosphatase 444 H D Total Protein 5.5 L Albumin 2.5 L Globulin 3.0 Albumin/Globulin Ratio 0.8 L Influenza A (Rapid) Negative Influenza B (Rapid) Negative SARS-CoV-2 Ag (Rapid) Negative ABG Interpretation ABG results: 05/27/24 05/29/24 05/29/24 23:37 10:44 22:08 ABG pH 7.51 H 7.50 H 7.48 H ABG pCO2 28 L 32 32 ABG pO2 75 L 79 L 145 H D ABG HCO3 23 25 24 ABG O2 Saturation 96 95 98 ABG Base Excess 0 2 1 05/30/24 05/31/24 06/04/24 08:45 04:54 02:10 ABG pH 7.47 H 7.45 7.45 ABG pCO2 35 38 36 ABG pO2 86 D 82 L 139 H ABG HCO3 26 26 25 ABG O2 Saturation 97 96 98 ABG Base Excess 2 2 1 06/04/24 06/05/24 06/05/24 18:16 11:36 12:59 ABG pH 7.44 7.11 L* D 7.20 L ABG pCO2 36 94 H* D 68 H D ABG pO2 80 L D 150 H D 121 H D ABG HCO3 24 30 H 26 ABG O2 Saturation 94 97 97 ABG Base Excess 0 -2 -3 06/05/24 06/06/24 06/06/24 19:25 04:13 15:27 ABG pH 7.22 L 7.27 L 7.30 L ABG pCO2 64 H 57 H 60 H ABG pO2 122 H 153 H D 74 L D ABG HCO3 26 26 29 H ABG O2 Saturation 97 99 H 92 ABG Base Excess -3 -2 2 06/07/24 06/07/24 06/08/24 03:55 09:59 04:20 ABG pH 7.41 D 7.43 7.45 ABG pCO2 56 H 55 H 50 H ABG pO2 293 H D 78 L D 75 L ABG HCO3 36 H 37 H 35 H ABG O2 Saturation 99 H 95 94 ABG Base Excess 10 H 11 H 10 H 06/08/24 06/08/24 06/08/24 11:05 11:50 13:18 ABG pH 7.17 L* D 7.10 L* 7.15 L* ABG pCO2 95 H* D 115 H* D 88 H* D ABG pO2 89 75 L 72 L ABG HCO3 34 H 36 H 31 H ABG O2 Saturation 92 84 L 85 L ABG Base Excess 3 4 H 0 06/08/24 06/09/24 06/09/24 17:02 01:33 03:15 ABG pH 7.18 L* 7.22 L 7.27 L ABG pCO2 50 H D 91 H* D 82 H* ABG pO2 82 L 105 D 86 ABG HCO3 19 L 37 H 38 H ABG O2 Saturation 93 97 95 ABG Base Excess -9 L 7 H 9 H 06/09/24 06/09/24 06/10/24 05:08 12:52 04:40 ABG pH 7.31 L 7.33 L 7.30 L ABG pCO2 75 H* 57 H D 78 H* D ABG pO2 97 158 H D 65 L D ABG HCO3 38 H 30 H 38 H ABG O2 Saturation 97 99 H 90 L ABG Base Excess 10 H 3 9 H 06/10/24 06/11/24 06/12/24 09:40 04:19 04:15 ABG pH 7.27 L 7.35 7.48 H D ABG pCO2 88 H* D 86 H* 63 H D ABG pO2 65 L 70 L 76 L ABG HCO3 40 H 48 H 47 H ABG O2 Saturation 89 L 93 95 ABG Base Excess 10 H 19 H 21 H 06/13/24 06/14/24 06/15/24 07:22 04:32 03:45 ABG pH 7.46 H 7.48 H 7.46 H ABG pCO2 56 H 40 D 37 ABG pO2 80 L 64 L 71 L ABG HCO3 39 H 30 H 27 H ABG O2 Saturation 95 92 94 ABG Base Excess 13 H 6 H 3 06/15/24 06/15/24 06/15/24 10:17 12:20 14:20 ABG pH 7.01 L* D 7.00 L* 7.03 L* ABG pCO2 122 H* D 130 H* 125 H* ABG pO2 91 D 88 82 L ABG HCO3 31 H 32 H 33 H ABG O2 Saturation 88 L 88 L 87 L ABG Base Excess -3 -2 -1 06/15/24 06/15/24 06/16/24 15:55 20:39 00:35 ABG pH 7.03 L* 7.08 L* 7.10 L* ABG pCO2 121 H* 116 H* 118 H* ABG pO2 99 117 H 102 ABG HCO3 32 H 34 H 37 H ABG O2 Saturation 93 97 96 ABG Base Excess -1 2 4 H 06/16/24 06/16/24 06/17/24 04:45 08:55 05:06 ABG pH 7.17 L* 7.28 L D 7.33 L ABG pCO2 112 H* 88 H* D 96 H* ABG pO2 155 H D 98 D 126 H D ABG HCO3 41 H 41 H 50 H ABG O2 Saturation 99 H 98 99 H ABG Base Excess 9 H 12 H 21 H 06/17/24 06/17/24 06/18/24 10:58 13:55 04:16 ABG pH 7.29 L 7.29 L 7.33 L ABG pCO2 106 H* D 106 H* 86 H* D ABG pO2 58 L* D 61 L 77 L ABG HCO3 51 H 51 H 45 H ABG O2 Saturation 87 L 88 L 95 ABG Base Excess 21 H 21 H 17 H 12/24 12/02/24 12/03/24 04:18 04:49 04:06 ABG pH 7.42 7.36 7.44 ABG pCO2 63 H D 74 H* D 61 H D ABG pO2 66 L 55 L* 202 H D ABG HCO3 41 H 42 H 42 H ABG O2 Saturation 93 87 L 100 H ABG Base Excess 15 H 14 H 16 H 06/22/24 06/23/24 06/24/24 04:18 04:29 04:25 ABG pH 7.45 7.46 H 7.29 L D ABG pCO2 57 H 53 H 80 H* D ABG pO2 60 L D 99 D 88 ABG HCO3 40 H 38 H 38 H ABG O2 Saturation 91 99 H 96 ABG Base Excess 14 H 13 H 9 H 06/24/24 06/25/24 06/25/24 08:50 05:13 11:02 ABG pH 7.40 D 7.46 H Cancelled ABG pCO2 61 H D 53 H Cancelled ABG pO2 110 H D 66 L D Cancelled ABG HCO3 38 H 38 H Cancelled ABG O2 Saturation 99 H 94 Cancelled ABG Base Excess 12 H 13 H Cancelled 06/25/24 06/26/24 06/26/24 15:53 04:13 11:40 ABG pH 7.39 7.41 7.46 H ABG pCO2 53 H 48 43 ABG pO2 55 L* 58 L* 58 L* ABG HCO3 32 H 30 H 31 H ABG O2 Saturation 86 L 89 L 92 ABG Base Excess 6 H 5 H 6 H 06/27/24 06/28/24 06/28/24 04:17 04:24 06:22 ABG pH 7.48 H 7.27 L D 7.22 L ABG pCO2 39 72 H* D 83 H* D ABG pO2 49 L* 71 L D 82 L ABG HCO3 29 H 33 H 34 H ABG O2 Saturation 87 L 93 95 ABG Base Excess 5 H 5 H 4 H 06/28/24 06/29/24 06/30/24 10:18 04:21 07:57 ABG pH 7.32 L D 7.41 7.41 ABG pCO2 64 H D 63 H 62 H ABG pO2 76 L 81 L 59 L* D ABG HCO3 33 H 40 H 40 H ABG O2 Saturation 95 97 88 L ABG Base Excess 6 H 14 H 13 H 07/02/24 07/03/24 07/04/24 04:05 04:45 04:11 ABG pH 7.46 H 7.43 7.38 ABG pCO2 53 H 58 H 67 H ABG pO2 77 L 100 D 73 L D ABG HCO3 38 H 39 H 40 H ABG O2 Saturation 96 98 94 ABG Base Excess 12 H 13 H 13 H Assessment & Plan A&P Narrative pneumonia.pjp on bal noted. hiv. infection, newly discovered in a heterosexual man. can not r/o ivdu resp failure, hypoxic variable O2 status jo ann, resolved. acute febrile illness. cause uncertain.rx empirical, cx neg or unrevealing rash on rt arm. cause uncertain he has hiv, gf needs to be tested. ok for hiv rx as ordered.changed bactrim to once daily a week ago now. As noted before, not every one survives, he is only 39, but is newly discovered to have a very bad disease that is easier to manage if caught earlier. ok to maintain steroid rxn. for now. repeat cx noted. ok to be off flucon as cd4 >100 and crypto ag neg. ok to be on hiv rx. will have to notify pt when he is awake. be sure that gf is tested as precaution. fevers likely due to iris. as cx are neg but it may be challenging to stop the linezolid and merrem with fever but that is likely the case here, ok to give prednisone several times a day as that may affect fevers lft's noted. can be caused by any of a number of factors. trending favorably with normal/neg bili noted. added some tests for tomorrow as I do not see them. we usually do not repeat the hiv vl and cd4 for 3 mo after verifying s virus in system. would not treat for cmv, am ok with a biopsy of the rt arm or empiric abx for a week at your discretion. Time Spent With Patient Time: Total time spent is greater than 50% in coordination of care (as documented) at patient's floor/unit and/or counseling patient:
[2024-07-04] MEDS: PROPOFOL 1,000 MG IVPB 1,000 MG/100 ML VIAL 18 MG IV ×2 (12:06→18:10)
[2024-07-04] MEDS: CALCIUM CARBONATE 600 MG TABLET GT (13:54)
--- NOTE | 2024-07-04 14:08 | ESPR_ITS ---
<Statement entered by Emely Price MD - 07/04/24 17:29> TOTAL CC TIME: 45 MIN I saw and evaluated the patient. I reviewed the resident?s note and agree with findings and plan as documented in the resident?s note. Upon my evaluation, this patient had a high probability of imminent or life- threatening deterioration due to worsening acute hypoxic respiratory failure/ARDS in the setting of new fevers and possible new pneumonia versus immune reconstitution syndrome which required my direct attention, intervention, and personal management. This time is exclusive of time spent on procedures, which are documented separately if performed. Too unstable for bronchoscopy or CT scan chest Check galactomannan assay patient is at risk for aspergillosis Recheck influenza and COVID PCR did do large number of visitors seeing the patient. Oxygenation improved with increased sedation due to improve vent synchrony. Tidal volume reduced with plateau pressure now less than 30. Prognosis poor Documentation for date of: 07/04/24 Subjective Subjective Interval history: 06/29/2024: The patient was examined and evaluated at the bedside this morning. He was started on automatic mode ventilation through tracheostomy tube and he tolerated it well. Patient did not had any fever overnight. His urine culture revealed positive for GPC, final cultures pending. His heart rate has been ranging from 120s to 150s with RR 23, saturating 96% on FiO2 40. Hemoglobin has been stable 9.4, ABG revealing pCO2 63, pO2 81 and bicarb 40 with ABG O2 saturation 97%. He continues to have mild hyponatremia with sodium of 133, and phosphorus 1.5 despite repeating multiple times. His triglyceride continues to decrease and today it is 183. The patient is to be continued on internal sedatives with phenobarbital 90 Mg 3 times daily, Ativan 2 Mg 3 times daily and oxycodone 10 Mg 3 times daily at least for 2 weeks, then slowly taper down. And also continue on prednisone 10 Mg daily for at least 1 week and then taper down. 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 06/30/2024: The patient was examined and evaluated at the bedside this morning. He was saturating well on mechanical ventilation through tracheostomy tube with heart rate in 70s. Overnight, patient developed 2 episodes of fever. Initially his MAP was less than 65, and sepsis protocol was initiated. 2 L of IV bolus crystalloid fluid was given. Blood culture, urine culture were sent, CXR done. Patient initially improved from hypotension with MAP of greater than 65, but earlier this morning the patient started dropping his blood pressure with MAP less than 65, and was started on Levophed drip. He is CBC has been at baseline, and ABG revealed pcO2 62, pO2 59 with bicarb of 40. His sodium continues to be in mild hyponatremic range with 135, bicarb 33.8. Corrected calcium 8.4 with phosphorus 1.2 which were repleted. His AST and ALT has been trending up from yesterday, 601/364 with ALP 295 and albumin 2.5. Pro-Jayy was 1.03. Chest/abdomen/pelvis CT with contrast was done that was significant for severe bilateral pneumonia with ARDS pattern, pneumomediastinum with hepatosplenomegaly. US liver was significant for gallbladder sludge, negative for cholelithiasis or cholecystitis. 07/02/2024: The patient was in examined and evaluated at the bedside this morning. He was mildly tachycardic with heart rate ranging from 100- 110, saturating around 90% on FiO2 70%. Overnight, patient had 2 episodes of fever. Cooling measures were applied. As there was concern about low urine output, bladder scan revealed greater than 600 cc of urine in bladder. Straight cath was done x 2 and 1 L urine was obtained. This morning ABG revealed pH 7.46, pCO2 53, pO2 77 and bicarb 38 with ABG O2 saturation 96%, on FiO2 80% and after that FiO2 was decreased to 70%. CBC at baseline, chemistry panel significant for moderate hyponatremia with sodium 127, chloride 89, bicarb 35.6, AST/ALT trended down to 355/372 respectively. We will discontinue phenobarbital which was supposed to be etiology for elevated liver enzymes. EEG official read was normal. Patient continues to be on Precedex and fentanyl drip. However, there was concern for breath stacking. 07/03/2024: Patient seen and examined at bedside. Patient is mildly tachycardic, 100-110, sinus tachy. Patient has produced good urinary output. Patient remains on levophed, midodrine added for additional BP support.AST/ALT continues to trend down following phenobarbital discontinuation. Patient continues to have breath stacking despite sedation. Mucomist and duonebs added due to copious secretions. 07/04/2024: The patient was examined and evaluated at the bedside this morning. He was tachycardic with heart rate ranging from 110s to 120, saturating 92 to 94% with tidal volume 450 cc. Overnight event was significant for severe cough spell that started this morning, and his saturation trended down to 70s, when manual bagging was done for ventilation and patient also required addition of propofol, midazolam 2 mg IV x 1 and IV rocuronium 30 Mg x 1. The patient's lung compliance was severely worsened, and was placed on tidal volume of 400. We will allow permissive hypercapnia at this time. We will repeat influenza and COVID test, as there could be possibility of transmission in the setting of multiple patients visiting him daily. There is a possibility of 0 in the setting of immunocompromised state, but the patient is unstable to get CT scan at this point. We cannot proceed with proning position as the patient is ventilating through tracheostomy tube. Exam Vital Signs Temp Pulse Resp BP Pulse Ox O2 Del Method O2 Flow Rate 100.0 F 87 31 H 121/61 99 Mechanical Ventilation 40 07/04/24 12:00 07/04/24 14:03 07/04/24 12:04 07/04/24 14:03 07/04/24 14:03 07/04/24 12:00 06/09/24 12:16 FiO2 100 07/04/24 14:03 Narrative Exam GEN: Critically ill, not acutely distressed, sedated and mechanically ventilated. Neuro: Deferred due to sedation. HEENT: NCAT, tracheostomy tube on appropriate position, mild abrasion over lower lips, improving. CVS: Mildly tachycardic, no M/R/G. No JVD Respi: Mechanically ventilated, b/l breath sounds heard, significant rhonchi in all lung rosas. ABD: Soft, no grimace to palpation, bowel sounds present in all 4 quadrants, PEG tube in appropriate place Skin: warm, dry and intact. Extremities: Pulses 2+ in all extremities, bilateral upper and lower extremity edema, ruptured vesicles 1-2 cm on the rt forearm surface that have been healing. Objective Labs 07/04/24 04:55 07/04/24 04:55 Labs: Laboratory Results - last 24 hr 07/03/24 07/04/24 07/04/24 16:58 00:39 04:11 WBC RBC Hgb Hct MCV MCH MCHC RDW Std Deviation Plt Count Neut % (Auto) Lymph % (Auto) [place] % (Auto) Eos % (Auto) Baso % (Auto) Neut # (Auto) Lymph # (Auto) [place] # (Auto) Eos # (Auto) Baso # (Auto) Immature Gran # (Auto) Absolute Nucleated RBC Immature Gran % Nucleated RBC % PT INR APTT 85.9 H D 75.1 H D Puncture Site Right Radial ABG pH 7.38 ABG pCO2 67 H ABG pO2 73 L D ABG HCO3 40 H ABG O2 Saturation 94 ABG Base Excess 13 H FiO2 100 Sodium Potassium Chloride Carbon Dioxide Anion Gap BUN Creatinine Estim Creat Clear Calc eGFR BUN/Creatinine Ratio Glucose Calculated Osmolality Calcium Corrected Calcium Total Bilirubin AST ALT Alkaline Phosphatase Total Protein Albumin Globulin Albumin/Globulin Ratio Influenza A (Rapid) Influenza B (Rapid) SARS-CoV-2 Ag (Rapid) 07/04/24 07/04/24 04:55 08:47 WBC 10.3 D RBC 3.60 L Hgb 8.8 L Hct 28.7 L MCV 80 MCH 24.4 L MCHC 30.7 L RDW Std Deviation 72.1 H Plt Count 343 D Neut % (Auto) 85 H Lymph % (Auto) 8 L [place] % (Auto) 6 Eos % (Auto) 0 Baso % (Auto) 0 Neut # (Auto) 8.7 H Lymph # (Auto) 0.9 L [place] # (Auto) 0.6 Eos # (Auto) 0.0 Baso # (Auto) 0.0 Immature Gran # (Auto) 0.09 H Absolute Nucleated RBC 0.00 Immature Gran % 1 H Nucleated RBC % 0 PT 11.0 D INR 1.0 APTT 54.3 H D Puncture Site ABG pH ABG pCO2 ABG pO2 ABG HCO3 ABG O2 Saturation ABG Base Excess FiO2 Sodium 132 L Potassium 4.8 Chloride 91 L Carbon Dioxide 36.4 H Anion Gap 5 L BUN 19 Creatinine 0.5 L Estim Creat Clear Calc 180.8 eGFR > 60 BUN/Creatinine Ratio 38 H Glucose 95 Calculated Osmolality 266 L Calcium 8.2 L Corrected Calcium 9.4 Total Bilirubin 0.2 L AST 161 H ALT 201 H Alkaline Phosphatase 444 H D Total Protein 5.5 L Albumin 2.5 L Globulin 3.0 Albumin/Globulin Ratio 0.8 L Influenza A (Rapid) Negative Influenza B (Rapid) Negative SARS-CoV-2 Ag (Rapid) Negative ABG Interpretation ABG results: 05/27/24 05/29/24 05/29/24 23:37 10:44 22:08 ABG pH 7.51 H 7.50 H 7.48 H ABG pCO2 28 L 32 32 ABG pO2 75 L 79 L 145 H D ABG HCO3 23 25 24 ABG O2 Saturation 96 95 98 ABG Base Excess 0 2 1 05/30/24 05/31/24 06/04/24 08:45 04:54 02:10 ABG pH 7.47 H 7.45 7.45 ABG pCO2 35 38 36 ABG pO2 86 D 82 L 139 H ABG HCO3 26 26 25 ABG O2 Saturation 97 96 98 ABG Base Excess 2 2 1 06/04/24 06/05/24 06/05/24 18:16 11:36 12:59 ABG pH 7.44 7.11 L* D 7.20 L ABG pCO2 36 94 H* D 68 H D ABG pO2 80 L D 150 H D 121 H D ABG HCO3 24 30 H 26 ABG O2 Saturation 94 97 97 ABG Base Excess 0 -2 -3 06/05/24 06/06/24 06/06/24 19:25 04:13 15:27 ABG pH 7.22 L 7.27 L 7.30 L ABG pCO2 64 H 57 H 60 H ABG pO2 122 H 153 H D 74 L D ABG HCO3 26 26 29 H ABG O2 Saturation 97 99 H 92 ABG Base Excess -3 -2 2 06/07/24 06/07/24 06/08/24 03:55 09:59 04:20 ABG pH 7.41 D 7.43 7.45 ABG pCO2 56 H 55 H 50 H ABG pO2 293 H D 78 L D 75 L ABG HCO3 36 H 37 H 35 H ABG O2 Saturation 99 H 95 94 ABG Base Excess 10 H 11 H 10 H 06/08/24 06/08/24 06/08/24 11:05 11:50 13:18 ABG pH 7.17 L* D 7.10 L* 7.15 L* ABG pCO2 95 H* D 115 H* D 88 H* D ABG pO2 89 75 L 72 L ABG HCO3 34 H 36 H 31 H ABG O2 Saturation 92 84 L 85 L ABG Base Excess 3 4 H 0 06/08/24 06/09/24 06/09/24 17:02 01:33 03:15 ABG pH 7.18 L* 7.22 L 7.27 L ABG pCO2 50 H D 91 H* D 82 H* ABG pO2 82 L 105 D 86 ABG HCO3 19 L 37 H 38 H ABG O2 Saturation 93 97 95 ABG Base Excess -9 L 7 H 9 H 06/09/24 06/09/24 06/10/24 05:08 12:52 04:40 ABG pH 7.31 L 7.33 L 7.30 L ABG pCO2 75 H* 57 H D 78 H* D ABG pO2 97 158 H D 65 L D ABG HCO3 38 H 30 H 38 H ABG O2 Saturation 97 99 H 90 L ABG Base Excess 10 H 3 9 H 06/10/24 06/11/24 06/12/24 09:40 04:19 04:15 ABG pH 7.27 L 7.35 7.48 H D ABG pCO2 88 H* D 86 H* 63 H D ABG pO2 65 L 70 L 76 L ABG HCO3 40 H 48 H 47 H ABG O2 Saturation 89 L 93 95 ABG Base Excess 10 H 19 H 21 H 06/13/24 06/14/24 06/15/24 07:22 04:32 03:45 ABG pH 7.46 H 7.48 H 7.46 H ABG pCO2 56 H 40 D 37 ABG pO2 80 L 64 L 71 L ABG HCO3 39 H 30 H 27 H ABG O2 Saturation 95 92 94 ABG Base Excess 13 H 6 H 3 06/15/24 06/15/24 06/15/24 10:17 12:20 14:20 ABG pH 7.01 L* D 7.00 L* 7.03 L* ABG pCO2 122 H* D 130 H* 125 H* ABG pO2 91 D 88 82 L ABG HCO3 31 H 32 H 33 H ABG O2 Saturation 88 L 88 L 87 L ABG Base Excess -3 -2 -1 06/15/24 06/15/24 06/16/24 15:55 20:39 00:35 ABG pH 7.03 L* 7.08 L* 7.10 L* ABG pCO2 121 H* 116 H* 118 H* ABG pO2 99 117 H 102 ABG HCO3 32 H 34 H 37 H ABG O2 Saturation 93 97 96 ABG Base Excess -1 2 4 H 06/16/24 06/16/24 06/17/24 04:45 08:55 05:06 ABG pH 7.17 L* 7.28 L D 7.33 L ABG pCO2 112 H* 88 H* D 96 H* ABG pO2 155 H D 98 D 126 H D ABG HCO3 41 H 41 H 50 H ABG O2 Saturation 99 H 98 99 H ABG Base Excess 9 H 12 H 21 H 06/17/24 06/17/24 06/18/24 10:58 13:55 04:16 ABG pH 7.29 L 7.29 L 7.33 L ABG pCO2 106 H* D 106 H* 86 H* D ABG pO2 58 L* D 61 L 77 L ABG HCO3 51 H 51 H 45 H ABG O2 Saturation 87 L 88 L 95 ABG Base Excess 21 H 21 H 17 H 06/19/24 06/20/24 06/21/24 04:18 04:49 04:06 ABG pH 7.42 7.36 7.44 ABG pCO2 63 H D 74 H* D 61 H D ABG pO2 66 L 55 L* 202 H D ABG HCO3 41 H 42 H 42 H ABG O2 Saturation 93 87 L 100 H ABG Base Excess 15 H 14 H 16 H 06/22/24 06/23/24 06/24/24 04:18 04:29 04:25 ABG pH 7.45 7.46 H 7.29 L D ABG pCO2 57 H 53 H 80 H* D ABG pO2 60 L D 99 D 88 ABG HCO3 40 H 38 H 38 H ABG O2 Saturation 91 99 H 96 ABG Base Excess 14 H 13 H 9 H 06/24/24 06/25/24 06/25/24 08:50 05:13 11:02 ABG pH 7.40 D 7.46 H Cancelled ABG pCO2 61 H D 53 H Cancelled ABG pO2 110 H D 66 L D Cancelled ABG HCO3 38 H 38 H Cancelled ABG O2 Saturation 99 H 94 Cancelled ABG Base Excess 12 H 13 H Cancelled 06/25/24 06/26/24 06/26/24 15:53 04:13 11:40 ABG pH 7.39 7.41 7.46 H ABG pCO2 53 H 48 43 ABG pO2 55 L* 58 L* 58 L* ABG HCO3 32 H 30 H 31 H ABG O2 Saturation 86 L 89 L 92 ABG Base Excess 6 H 5 H 6 H 06/27/24 06/28/24 06/28/24 04:17 04:24 06:22 ABG pH 7.48 H 7.27 L D 7.22 L ABG pCO2 39 72 H* D 83 H* D ABG pO2 49 L* 71 L D 82 L ABG HCO3 29 H 33 H 34 H ABG O2 Saturation 87 L 93 95 ABG Base Excess 5 H 5 H 4 H 06/28/24 06/29/24 06/30/24 10:18 04:21 07:57 ABG pH 7.32 L D 7.41 7.41 ABG pCO2 64 H D 63 H 62 H ABG pO2 76 L 81 L 59 L* D ABG HCO3 33 H 40 H 40 H ABG O2 Saturation 95 97 88 L ABG Base Excess 6 H 14 H 13 H 07/02/24 07/03/24 07/04/24 04:05 04:45 04:11 ABG pH 7.46 H 7.43 7.38 ABG pCO2 53 H 58 H 67 H ABG pO2 77 L 100 D 73 L D ABG HCO3 38 H 39 H 40 H ABG O2 Saturation 96 98 94 ABG Base Excess 12 H 13 H 13 H Quality Measures Quality Measures sepsis Current suspected stage: sepsis Possible source: pulmonary, GI tract/intra-abdominal, genitourinary and skin/soft tissue Blood cultures ordered: yes Antibiotic ordered: Yes Assessment & Plan Assessment Current Active Medications: Generic Name Dose Route Start Last Admin Trade Name Freq PRN Reason Stop Dose Admin Acetaminophen 650 mg 06/26/24 15:16 07/01/24 05:53 Acetaminophen Munira 325 Mg/10 Ml Udc GT 07/26/24 15:15 650 mg Q4HR PRN Administration Pain Or Fever > 100.3 Acetylcysteine 3 ml 07/03/24 13:00 07/04/24 12:01 Acetylcysteine Munira 20% 4 Ml Nebu INH 08/02/24 12:59 3 ml Q6HRRT JUAN JOSE Administration Albuterol/Ipratropium 3 ml 06/05/24 11:40 06/25/24 08:58 Albuterol/Ipratropium (Duoneb) Rt Munira 3 Ml Nebu INH 07/05/24 14:59 3 ml Q4HRRT PRN Administration Wheezing Albuterol/Ipratropium 3 ml 07/03/24 13:00 07/04/24 12:01 Albuterol/Ipratropium (Duoneb) Rt Munira 3 Ml Nebu INH 08/02/24 12:59 3 ml Q6HRRT JUAN JOSE Administration Artificial Tears 1 drop 06/18/24 12:00 07/04/24 12:23 Artificial Tears 225 Drop/15 Ml Btl BOTH EYES 07/18/24 11:59 1 drop QID JUAN JOSE Administration Calcium Carbonate 600 mg 06/28/24 13:00 07/04/24 13:54 Calcium Carbonate 600 Mg Tablet GT 07/28/24 12:59 600 mg QDAY@1300 JUAN JOSE Administration Clonazepam 2 mg 06/28/24 08:45 07/04/24 13:54 Clonazepam 0.5 Mg Tablet PO 07/19/24 08:44 2 mg TID JUAN JOSE Administration Dextrose 25 ml 06/06/24 08:20 Dextrose 50%-Water Inj 50 Ml Syringe IV 07/06/24 08:19 Q15MIN PRN BG 50-70 responsive npo pt Dextrose 50 ml 06/06/24 08:20 Dextrose 50%-Water Inj 50 Ml Syringe IV 07/06/24 08:19 Q15MIN PRN BG <50 OR BG <70 & pt unresponsive Docusate Sodium 100 mg 06/25/24 09:13 Docusate Sod Liqd 100 Mg/10 Ml Udc PO 07/22/24 08:59 BID PRN Constipation Protocol Docusate Sodium 250 mg 07/02/24 10:00 07/02/24 20:13 Docusate Sod Liqd 100 Mg/10 Ml Udc GT 07/31/24 09:14 250 mg BID JUAN JOSE Administration Protocol Emtricitabine/Tenofovir 1 tab 06/16/24 12:30 07/04/24 08:36 Emtricitabine 200 Mg/Tenofovir 300 Mg Tab (Non-Form) PO 07/16/24 12:29 1 tab QDAY JUAN JOSE Administration Ferrous Sulfate 300 mg 07/02/24 10:00 07/04/24 08:37 Ferrous Sulfate 300 Mg/5 Ml Udc GT 07/23/24 09:59 300 mg QDAY JUAN JOSE Administration Glucagon 1 mg 06/06/24 08:20 Glucagon Inj 1 Mg Vial IM Q15MIN PRN BG <70, and no IV access Norepinephrine/Dextrose 8 mg in 250 mls @ 6.319 mls/hr 06/30/24 04:17 07/04/24 13:00 Levophed In D5w 8mg/250ml IV 07/30/24 04:16 0.05 mcg/kg/min .Q24H PRN 6.319 mls/hr PER PROTOCOL Titration Protocol 0.05 MCG/KG/MIN Heparin Sodium/Dextrose 25,000 unit in 250 mls @ 13.5 mls/hr 07/02/24 09:45 07/04/24 07:22 Heparin In D5w Ivpb IV 07/16/24 09:44 20 units/kg/hr .[id number] JUAN JOSE 15 mls/hr Titration Protocol 18 UNITS/KG/HR Propofol 1,000 mg in 100 mls @ 2.25 mls/hr 07/04/24 06:39 07/04/24 13:00 Diprivan Ivpb IV 08/03/24 06:38 40 mcg/kg/min .Q24H PRN 18 mls/hr PER PROTOCOL Titration Protocol 5 MCG/KG/MIN Fentanyl Citrate 2,500 mcg in 250 mls @ 2.5 mls/hr 07/04/24 06:59 Sublimaze Inj 2,500 Mcg/250 Ml Bag IV 07/05/24 14:48 .Q24H PRN PER PROTOCOL Protocol 25 MCG/HR Dexmedetomidine/Sodium Chloride 200 mcg in 50 mls @ 3.6 mls/hr 07/04/24 06:59 07/04/24 13:55 Precedex Ivpb IV 08/01/24 00:16 1.4 mcg/kg/hr .[id number] PRN 25.2 mls/hr Per PROTOCOL Administration Protocol 0.2 MCG/KG/HR Methylprednisolone Sodium Succinate 40 mg 07/02/24 17:15 07/04/24 13:54 Methylprednisolone Sod Succ 40 Mg Vial IVP 07/09/24 17:14 40 mg TID JUAN JOSE Administration Metoprolol Tartrate 25 mg 07/04/24 09:00 07/04/24 10:47 Metoprolol Tartrate 25 Mg Tablet PO 08/03/24 08:59 Not Given BID JUAN JOSE Midodrine 10 mg 07/03/24 09:15 07/04/24 13:54 Midodrine 5 Mg Tablet PO 08/02/24 09:14 10 mg TID JUAN JOSE Administration Potassium Phos/Sodium Phos 2 packet 06/30/24 07:30 07/04/24 13:54 [facility]aph,[facility] 1 Packet (1.5 Gm) PO 07/30/24 07:29 2 packet TID JUAN JOSE Administration Quetiapine Fumarate 100 mg 06/28/24 21:00 07/04/24 08:36 Quetiapine Fumarate 100 Mg Tablet PO 07/25/24 20:59 100 mg BID JUAN JOSE Administration Raltegravir 400 mg 07/03/24 15:40 07/04/24 08:37 Raltegravir 400 Mg Tablet NG 07/06/24 08:29 400 mg BID JUAN JOSE Administration Trimethoprim/Sulfamethoxazole 20 ml 06/23/24 09:00 07/04/24 08:37 Trimethoprim/Sulfa Susp 1 Ml PO 06/22/25 12:00 20 ml QDAY JUAN JOSE Administration Plan 39-year-old male patient with no PMHx who initially presented to [facility] on 05/[facility]24 with a chief complaint of shortness of breath and cough, with associated chills, body aches, generalized weakness, fever, and night sweats beginning weeks prior but progressively worsening over a few days is currently being treated for acute hypoxic respiratory failure secondary to PCP pneumonia that was complicated by ventilator associated pneumonia. Patient is currently on tracheostomy tube and mechanically ventilated. 07/04/2024: The patient was examined and evaluated at the bedside this morning. He was tachycardic with heart rate ranging from 110s to 120, saturating 92 to 94% with tidal volume 450 cc. Overnight event was significant for severe cough spell that started this morning, and his saturation trended down to 70s, when manual bagging was done for ventilation and patient also required addition of propofol, midazolam 2 mg IV x 1 and IV rocuronium 30 Mg x 1. The patient's lung compliance was severely worsened, and was placed on tidal volume of 400. We will allow permissive hypercapnia at this time. We will repeat influenza and COVID test, as there could be possibility of transmission in the setting of multiple patients visiting him daily. There is a possibility of 0 in the setting of immunocompromised state, but the patient is unstable to get CT scan at this point. We cannot proceed with proning position as the patient is ventilating through tracheostomy tube. NEURO Patient is sedated and mechanically ventilated through tracheostomy tube. 06/05/2024 Patient was intubated, sedated, and paralyzed for ARDS. Currently on enteral sedatives clonazepam 2 Mg 3 times daily. -Patient was started back on fentanyl drip for further sedation as patient developed pneumomediastinum on 06/30/2024. Added presidex drip for proper sedation as the patient is having breath stacking. -MRI showed no acute hemorrhage, infarct, mass effect, or midline shift. No findings diagnostic for demyelinating disease. EEG was normal. #Fever Patient repeat fever overnight, Multiple cultures has been negative and on appropriate antibiotics -Repeat influenza test on 07/04 negative, pending COVID results -Treat underlying condition -Tylenol as needed CARDIO #Right upper extremity DVT. -Doppler US right upper extremity 06/17/24: revealed RUE DVT -On Heparin Drip, can be switched to oral anticoagulants #Sinus tachycardia Tachycardia most likely secondary to severe acute respiratory distress syndrome -Continue to treat the underlying cause -metoprolol tartrate 25mg BID, as possibility of supraventricular tachycardia, but no EEG repeated -Repeat EEG if HR above 140. #Shock Most likely 2/2 sedation. BC has been negative and on appropriate antibiotics Patient presented with septic shock secondary to severe extensive bilateral pneumonia. After resolution of initial septic shock, patient developed new hypotension, tachycardia, tachypnea, fevers indicated of septic shock. -Pressor support as needed -Linezolid (started 06/27-07/04) -Meropenem (started 06/27-07/04) -Urine (06/27) showed resistant staph epi -Blood (06/27) showed resistant Staphylococcus haemolyticus -follow up repeat blood cultures and urine cultures -Repeat Influenza is negative and repeat COVID test pending results PULM #Chronic hypoxic respiratory failure Secondary to #Bilateral pneumocystis jirovecii pneumonia, resolved #Healthcare associated pneumonia, resolved, resolved #Ventilator associated pneumonia, resolved #Severe Acute respiratory distress syndrome as a consequence of PCP pneumonia #S/P Tracheostomy #Pneumomediastinum Patient presented with dyspnea and cough, requiring 4L NC on first ED evaluation, and history of chills, body aches, generalized weakness, fever, and night sweats progressively worsening over the prior weeks. Approx 20-pack year smoking history, occasional marijuana. 06/17/2024 oxygenation and hypercapnia improved 06/30/2024: CT chest/abdomen/pelvis revealed pneumomediastinum On linezolid 600 mg q12h 06/15/24-06/22/24 Plan: -Linezolid (started 06/27-07/04) and Meropenum (started 06/27-07/04) -Continue with daily Bactrim -ABG as needed -Patient will be further sedated with fentanyl drip and Precedex drip there is breath stacking 2/2 ARDS in the setting of pneumomediastinum, and decreased tidal volume to 400cc -Cannot proceed with Proning as patient has tracheostomy tube placed -Repeat Influenza is negative and repeat COVID test pending results GI GI prophylaxis: None as patient got extubated and is on tracheostomy tube. #Elevated LFTs 2/2 phenobarbitol and Oxycodone use Liver enzymes started trending down after discontinuing oxycodone and phenobarbitol. liver US 05/30/2024 showed normal gallbladder and hepatomegaly without lesions or evidence of obstructions. Hep panel negative. LFTs downtrending Plan: -Continue monitoring #Hypertriglyceridemia, trending down More likely secondary to propofol use -We repeated lipid panel on 06/30/2024- 183 -Started on propofol, and we will continue to trend TGL NEPHRO #Hypophosphatemia, stable #WILL, resolved #Hyperkalemia---Resolved #Hyperphosphatemia, resolved Hypophosphatemia likely secondary to nutritional deficiency, further complicated by decreased absorption due to patient being on Bactrim and calcium carbonate. Plan: -Discontinued Veltassa as potassium has been in the lower end of normal value -On Neutra phos 2 packs TID, Continue to monitor phosphorus and replete as needed -Maintain euvolemia -Replete electrolytes as needed. #Mild hyponatremia Secondary to SIADH due to acute hypoxic respiratory failure leading to pulmonary distress -Continue to monitor #NAGMA #Primary Respiratory acidosis compensated by metabolic alkalosis, stable Secondary to increased work of breathing and increased RR 2/2 chronic hypoxic respiratory failure and chronic respiratory distress syndrome in the setting of tapering down of IV sedatives -ABGs revealed pH of 7.46, pCO2 53, pO2 66 and bicarb 38. -ABG on 06/28/2024 revealed pH of 7.32, pCO2 64 and bicarb 33.1. -We will treat the underlying cause HEME #Leukocytosis, resolved Fluctuating WBC. In the setting of likely infection, inflammation, and corticosteroids. 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 Clinically no evidence of bleeding. Iron panel shows iron 17, TIBC 262, iron saturation 6, unsaturated iron binding 245. Peripheral blood film confirms microcytic hypochromic anemia with target cells. Also daily lab draws contributing. Plan: -Started on oral ferrous sulfate 325 Mg daily -Monitor H&H. Transfusing for Hgb <7 #Thrombocytosis, resolved Likely reactive. -Continue to monitor ENDO #Hypoglycemia, resolved Blood glucose this morning was 69, likely secondary to increased metabolic acid complicated by stopping enteral feeding -Bolus D50W given -Repeat blood sugar was stable -Enteral feeding ID #Bilateral pneumocystis pneumonia, resolved #Healthcare associated pneumonia, resolved #Ventilator associated pneumonia, resolved #PCP pneumonia prophylaxis Negative studies: Cocci IgM and IgG, Hepatitis panel, Syphilis, Legionella, H.flu, N.meningitidis, Strep B, Strep pneumoniae, COVID, RSV, Flu A & B. TB quantiferon GOLD-indeterminate, however 06/05 AFB negative, CMV IgM, cryptococcal antigen negative. G6PD levels came back normal for consideration of dapsone alternative to Bactrim if needed. Patient completed 5 day course of azithromycin, 16 days of Zosyn. See Pulm for timeline of antimicrobial coverage. On 06/27 patient developed new septic shock Plan: -Antibiotcs Bactrim for prevention of PCP pneumonia in the setting of CD4 count of 116 -Linezolid and meropenum restarted on 06/27/2024- -Urine ackerman port grew GPC, Staph epidermidis that is MDR, sensitive to linezolid. -Fungal cultures from BAL pending, follow-up on results -Blood cultures from 06/26/2024 and 06/27/2024, negative so far, cultures drawn on 06/29/2024 is pending -Follow up blood, sputum, and urine cultures #AIDS/HIV Patient has Stage 4 HIV, AIDS-defining illness with opportunistic infection. 06/07/2024 Bronchoalveolar lavage cytology shows Pneumocystis jirovecii. Also other fungi, possibly Kassandra. Kassandra is most likely a contaminant. Blood [id number] also positive. 06/08/2024 HIV quant 5.66 million copies. HIV 1 positive confirmed. 06/09/2024 Patient's decision maker, Francesca, was informed of diagnosis due to critical state of patient. Absolute CD4 count 87 and 22% on 06/02. History/risk factors: History of injection anabolic androgenic steroid and testosterone use, possible unclean needles. History of incarceration (unknown time). Tattoos received as a teenager. Has 1 female sexual partner last 5 years, denies others. -Continue HAART: emtricitabine / tenofovir (Truvada) and raltegravir initiated 06/09/24 -Patient is not aware of his diagnosis as he has been intubated and sedated before results returned. Will require complete education and counseling on the disease if his mental status and clinical condition improves. 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 The patient is being downgraded to telemetry unit for further management of chronic hypoxic respiratory failure s/p tracheostomy. DVT prophylaxis: On heparin drip for treatment of right upper extremity DVT GI prophylaxis: Pantoprazole 40 mg IV qday, discontinued Diet: Tube feeds Ackerman: No, condom cath Lines: Peripheral IV, removed rt femoral central line on 06/28/24 Antibiotics: Bactrim, linezolid, meropenum CODE STATUS: FULL CODE The patient's management plan was discussed with my attending physician MD Jeff Story MD, PGY2
[2024-07-04] MEDS: fentaNYL 2,500 MCG/250 ML BAG 2,500 MCG/250 ML BAG 30 MCG IV (15:22)
--- NOTE | 2024-07-04 15:42 | PC.SS ---
Update: Patient remains intubated/sedated. Patient tachycardic.
[2024-07-05] VITALS (105 sets, daily range): BP systolic 90–138; BP diastolic 43–84; PULSE 77–126; RESP 22–301; TEMP 35.9–37.2; O2SAT 84–100; BMI 24.8; BMI 23.3
[2024-07-05] MEDS: PROPOFOL 1,000 MG IVPB 1,000 MG/100 ML VIAL 18 MG IV (01:06)
[2024-07-05] MEDS: ALBUTEROL/IPRATROPIUM (Duoneb) RT SOL 3 ML NEBU INH ×4 (01:57→18:12)
[2024-07-05] MEDS: ACETYLCYSTEINE SOL 20% 4 ML NEBU 3 ML INH ×4 (01:57→18:12)
--- NOTE | 2024-07-05 04:29 | PC.RT ---
pt spo2 dropped to 81% increased fio2 to 100% post suction spo2 not improving, bag pt for about 5 min spo2 improved to 97% place back on vent DR. briggs at bedside.
[2024-07-05] MEDS: MIDAZOLAM INJ 1 MG/ML VIAL 2 ML 2 MG IV (04:41)
[2024-07-05] MEDS: DEXMEDETOMIDINE 200 MCG IVPB 200 MCG/50 ML BOTTLE 25.2 MCG IV ×9 (04:43→20:00)
[2024-07-05 04:58] LABS: Base Excess 14 (-3-3); HCO3 43 mEq/L (20-26); Inspired Oxygen, FIO2 90 %; O2 Saturation 99 % (91-98); PCO2 87 mmHg (32.0-48.0); PO2 132 mmHg (83-108)
[2024-07-05 05:09] LABS: Allen Test Performed/OK; Puncture Site Left Radial
[2024-07-05] MEDS: Artificial Tears 225 DROP/15 ML BTL BOTH EYES ×4 (05:16→21:12)
[2024-07-05] MEDS: NAPH,KPH MBDB 1 PACKET (1.5 GM) 2 PACKET PO (05:17)
[2024-07-05] MEDS: MIDODRINE 5 MG TABLET 10 MG PO (05:17)
[2024-07-05] MEDS: clonazePAM 0.5 MG TABLET 2 MG PO ×3 (05:17→21:11)
[2024-07-05 06:26] LABS: Misc Send Out* See Sep Rpt
[2024-07-05 06:32] LABS: Basophils % (Auto) 0 % (0-2.5); Eosinophils % (Auto) 1 % (0-10); Immature Granulocytes % (Auto) 1 % (0-0); Immature Granulocytes Auto 0.08 Thou/mm3 (0.00-0.00); Lymphocytes # (Auto) 0.4 Thou/mm3 (1.0-4.8); Lymphocytes % (Auto) 8 % (10-50); Mean Corpuscular HGB Conc 30.4 g/dl (31.0-37.0); Mean Corpuscular Hemoglobin 24.8 pg (25.0-35.0); Mean Corpuscular Volume 82 fL (80-100); Monocytes # (Auto) 0.5 Thou/mm3 (0.0-0.8); Monocytes % (Auto) 9 % (0-12); Neutrophils # (Auto) 4.6 Thou/mm3 (1.8-7.7); Neutrophils % (Auto) 81 % (37-80); Nucleated Red Blood Cell % 0 /100 WBC (0); Platelet Count 327 Thou/mm3 (140-440); RDW Standard Deviation 73.3 fL (35.1-43.9); Red Blood Count 3.19 Miln/mm3 (4.50-5.90); White Blood Count 5.6 Thou/mm3 (3.8-10.6)
[2024-07-05 06:33] LABS: Hemoglobin 7.9 g/dL (13.5-16.0)
[2024-07-05 06:53] LABS: Partial Thromboplastin Time 69.2 Seconds (22.0-36.0)
[2024-07-05] MEDS: PROPOFOL 1,000 MG IVPB 1,000 MG/100 ML VIAL 22.5 MG IV ×4 (07:24→22:53)
[2024-07-05 07:25] LABS: Alanine Aminotransferase 148 U/L (10-49); Albumin, Serum 2.5 gm/dL (3.5-5.0); Albumin/Globulin Ratio 0.9 (1.2-2.2); Alkaline Phosphatase 403 U/L (46-116); Anion Gap 3 (7-16); Aspartate Amino Transferase 129 U/L (0-34); BUN/Creatinine Ratio 35 Ratio (12-20); Bilirubin,Total 0.2 mg/dL (0.3-1.2); Blood Urea Nitrogen 21 mg/dL (9-23); Calcium 7.8 mg/dL (8.3-10.6); Carbon Dioxide 38.2 mMol/L (20.0-31.0); Chloride 93 mMol/L (98-107); Creatinine (Component) 0.6 mg/dL (0.6-1.3); Estimated Creatinine Clearance 150.6 mL/min (>60); Globulin 2.7 gm/dL (2.3-3.5); Glucose 125 mg/dL (74-106); Magnesium 2.2 mg/dL (1.6-2.6); Osmolality,Calculated 272 (275-295); Phosphorous 3.8 mg/dL (2.4-5.1); Potassium 5.2 mMol/L (3.4-5.1); Sodium 134 mMol/L (136-145); Total Protein 5.2 gm/dL (5.7-8.2); eGFR > 60 See Note
[2024-07-05 07:35] LABS: Syphilis Nonreactive (Nonreactive)
[2024-07-05] MEDS: RALTEGRAVIR 400 MG TABLET NG ×2 (08:00→21:13)
[2024-07-05] MEDS: EMTRICITABINE 200 MG/TENOFOVIR 300 MG TAB (NON-FORM) 1 TAB PO (08:00)
[2024-07-05] MEDS: TRIMETHOPRIM PO (08:00)
[2024-07-05] MEDS: SULFAMETHOXAZOLE PO (08:00)
[2024-07-05] MEDS: Ferrous Sulfate 300 MG/5 ML UDC GT (08:04)
[2024-07-05] MEDS: QUEtiapine FUMARATE 100 MG TABLET PO ×2 (08:04→21:11)
[2024-07-05] MEDS: fentaNYL 2,500 MCG/250 ML BAG 2,500 MCG/250 ML BAG 30 MCG IV ×3 (09:05→17:02)
[2024-07-05 09:32] LABS: Misc Send Out* See Sep Rpt
--- NOTE | 2024-07-05 11:21 | PC.SS ---
BRII, bedside nurse and Dr. Pacheco met with patient's medical surrogate decision maker Francesca Owen (sister) to complete POLST form. Patient has been transitioned to DNR. Copy of completed POLST form filed in patient's chart.
--- NOTE | 2024-07-05 12:18 | EVENTNT_ITS ---
<Statement entered by Emely Price MD - 07/06/24 08:20> I saw and evaluated the patient. I reviewed the resident?s note and agree with findings and plan as documented in the resident?s note. Documentation for date of: 07/05/24 Event Note Event Note: The patient's sister, Francesca was updated regarding the patient's current condition. We reported to her that, patient has been deteriorating even after multiple medical interventions and long-term prognosis does not seem to be good. Given the patient's poor prognosis in the setting of chronic hypoxic respiratory failure 2/2 ARDS secondary to post PCP pneumonia in the setting of AIDS, the goals of care discussion was done with the patient's sister who is the point of contact and has been the decision maker for the patient. She reported that, she would discuss this with her family members, and let us know how everyone in the family would like to proceed further regarding his management. However, she clearly stated that at this condition the patient would not like to proceed with any further resuscitation with chest compression if required, and she signed the POLST form in the presence of social worker delinquency prevention Azael. The patient's code status change was discussed with my attending physician MD Jeff Story MD, PGY2
[2024-07-05] MEDS: Heparin/D5w 25K 250 ML Ivpb 25,000 UNIT/250 ML BAG 15 UNIT IV (13:12)
[2024-07-05] MEDS: CALCIUM CARBONATE 600 MG TABLET GT (13:12)
--- NOTE | 2024-07-05 13:24 | ESPR_ITS ---
<Statement entered by Emely Price MD - 07/06/24 08:22> TOTAL CC TIME: 45 MIN I saw and evaluated the patient. I reviewed the resident?s note and agree with findings and plan as documented in the resident?s note. Upon my evaluation, this patient had a high probability of imminent or life- threatening deterioration due to ARDS, acute hypoxic respiratory failure which required my direct attention, intervention, and personal management. This time is exclusive of time spent on procedures, which are documented separately if performed. Persistent fevers, immunocompromised host. He has been on steroids which raises the concern for additional opportunistic infections Cultures were already all resubmitted Galactomannan assays a send out No hemorrhagic secretions Lung compliance remains poor Medical decisions are being made by the patient's appointed medical decision- maker which is his sister. She agrees with our plan of care but would like to change his CODE STATUS to a DNR. Documentation for date of: 07/05/24 Subjective Subjective Interval history: 07/02/2024: The patient was in examined and evaluated at the bedside this morning. He was mildly tachycardic with heart rate ranging from 100- 110, saturating around 90% on FiO2 70%. Overnight, patient had 2 episodes of fever. Cooling measures were applied. As there was concern about low urine output, bladder scan revealed greater than 600 cc of urine in bladder. Straight cath was done x 2 and 1 L urine was obtained. This morning ABG revealed pH 7.46, pCO2 53, pO2 77 and bicarb 38 with ABG O2 saturation 96%, on FiO2 80% and after that FiO2 was decreased to 70%. CBC at baseline, chemistry panel significant for moderate hyponatremia with sodium 127, chloride 89, bicarb 35.6, AST/ALT trended down to 355/372 respectively. We will discontinue phenobarbital which was supposed to be etiology for elevated liver enzymes. EEG official read was normal. Patient continues to be on Precedex and fentanyl drip. However, there was concern for breath stacking. 07/03/2024: Patient seen and examined at bedside. Patient is mildly tachycardic, 100-110, sinus tachy. Patient has produced good urinary output. Patient remains on levophed, midodrine added for additional BP support.AST/ALT continues to trend down following phenobarbital discontinuation. Patient continues to have breath stacking despite sedation. Mucomist and duonebs added due to copious secretions. 07/04/2024: The patient was examined and evaluated at the bedside this morning. He was tachycardic with heart rate ranging from 110s to 120, saturating 92 to 94% with tidal volume 450 cc. Overnight event was significant for severe cough spell that started this morning, and his saturation trended down to 70s, when manual bagging was done for ventilation and patient also required addition of propofol, midazolam 2 mg IV x 1 and IV rocuronium 30 Mg x 1. The patient's lung compliance was severely worsened, and was placed on tidal volume of 400. We will allow permissive hypercapnia at this time. We will repeat influenza and COVID test, as there could be possibility of transmission in the setting of multiple patients visiting him daily. There is a possibility of 0 in the setting of immunocompromised state, but the patient is unstable to get CT scan at this point. We cannot proceed with proning position as the patient is ventilating through tracheostomy tube. 07/05/2024: The patient was examined and evaluated at the bedside this morning. His heart rate has been in the range of 100-110. Overnight, around this morning the patient again had another spell of intractable coughing episodes, and required bag and mask ventilation. Patient was given 2 mg IV midazolam, and that subsided he is coughing spells. We will continue to trend down FiO2 as tolerated. Ordered galactomannan test to rule out any aspergillosis, as and influenza test done yesterday came back negative. We will stop Neutra-Phos today, and continue to monitor electrolytes. Exam Vital Signs Temp Pulse Resp BP Pulse Ox O2 Del Method O2 Flow Rate 98.1 F 78 32 H 108/60 100 Mechanical Ventilation 40 07/05/24 08:00 07/05/24 12:15 07/05/24 12:15 07/05/24 11:30 07/05/24 12:15 07/05/24 04:00 06/09/24 12:16 FiO2 55 07/05/24 12:15 Narrative Exam GEN: Critically ill, not acutely distressed, sedated and mechanically ventilated. Neuro: Deferred due to sedation. HEENT: NCAT, tracheostomy tube on appropriate position, mild abrasion over lower lips, improving. CVS: Mildly tachycardic, no M/R/G. No JVD Respi: Mechanically ventilated, b/l breath sounds heard, significant rhonchi in all lung rosas. ABD: Soft, no grimace to palpation, bowel sounds present in all 4 quadrants, PEG tube in appropriate place Skin: warm, dry and intact. Extremities: Pulses 2+ in all extremities, bilateral upper and lower extremity edema, ruptured vesicles 1-2 cm on the rt forearm surface that have been healing. Objective Labs 07/05/24 06:11 07/05/24 06:11 Labs: Laboratory Results - last 24 hr 07/05/24 07/05/24 04:40 06:11 WBC 5.6 D RBC 3.19 L Hgb 7.9 L Hct 26.0 L MCV 82 MCH 24.8 L MCHC 30.4 L RDW Std Deviation 73.3 H Plt Count 327 Neut % (Auto) 81 H Lymph % (Auto) 8 L [place] % (Auto) 9 Eos % (Auto) 1 Baso % (Auto) 0 Neut # (Auto) 4.6 Lymph # (Auto) 0.4 L [place] # (Auto) 0.5 Eos # (Auto) 0.0 Baso # (Auto) 0.0 Immature Gran # (Auto) 0.08 H Absolute Nucleated RBC 0.00 Immature Gran % 1 H Nucleated RBC % 0 APTT 69.2 H D Puncture Site Left Radial ABG pH 7.30 L ABG pCO2 87 H* D ABG pO2 132 H D ABG HCO3 43 H ABG O2 Saturation 99 H ABG Base Excess 14 H FiO2 90 Sodium 134 L Potassium 5.2 H Chloride 93 L Carbon Dioxide 38.2 H Anion Gap 3 L BUN 21 Creatinine 0.6 Estim Creat Clear Calc 150.6 eGFR > 60 BUN/Creatinine Ratio 35 H Glucose 125 H Calculated Osmolality 272 L Calcium 7.8 L Corrected Calcium 9.0 Phosphorus 3.8 Magnesium 2.2 Total Bilirubin 0.2 L AST 129 H ALT 148 H Alkaline Phosphatase 403 H D Total Protein 5.2 L Albumin 2.5 L Globulin 2.7 Albumin/Globulin Ratio 0.9 L Syphilis Serology Nonreactive ABG Interpretation ABG results: 05/27/24 05/29/24 05/29/24 23:37 10:44 22:08 ABG pH 7.51 H 7.50 H 7.48 H ABG pCO2 28 L 32 32 ABG pO2 75 L 79 L 145 H D ABG HCO3 23 25 24 ABG O2 Saturation 96 95 98 ABG Base Excess 0 2 1 05/30/24 05/31/24 06/04/24 08:45 04:54 02:10 ABG pH 7.47 H 7.45 7.45 ABG pCO2 35 38 36 ABG pO2 86 D 82 L 139 H ABG HCO3 26 26 25 ABG O2 Saturation 97 96 98 ABG Base Excess 2 2 1 06/04/24 06/05/24 06/05/24 18:16 11:36 12:59 ABG pH 7.44 7.11 L* D 7.20 L ABG pCO2 36 94 H* D 68 H D ABG pO2 80 L D 150 H D 121 H D ABG HCO3 24 30 H 26 ABG O2 Saturation 94 97 97 ABG Base Excess 0 -2 -3 06/05/24 06/06/24 06/06/24 19:25 04:13 15:27 ABG pH 7.22 L 7.27 L 7.30 L ABG pCO2 64 H 57 H 60 H ABG pO2 122 H 153 H D 74 L D ABG HCO3 26 26 29 H ABG O2 Saturation 97 99 H 92 ABG Base Excess -3 -2 2 06/07/24 06/07/24 06/08/24 03:55 09:59 04:20 ABG pH 7.41 D 7.43 7.45 ABG pCO2 56 H 55 H 50 H ABG pO2 293 H D 78 L D 75 L ABG HCO3 36 H 37 H 35 H ABG O2 Saturation 99 H 95 94 ABG Base Excess 10 H 11 H 10 H 06/08/24 06/08/24 06/08/24 11:05 11:50 13:18 ABG pH 7.17 L* D 7.10 L* 7.15 L* ABG pCO2 95 H* D 115 H* D 88 H* D ABG pO2 89 75 L 72 L ABG HCO3 34 H 36 H 31 H ABG O2 Saturation 92 84 L 85 L ABG Base Excess 3 4 H 0 06/08/24 06/09/24 06/09/24 17:02 01:33 03:15 ABG pH 7.18 L* 7.22 L 7.27 L ABG pCO2 50 H D 91 H* D 82 H* ABG pO2 82 L 105 D 86 ABG HCO3 19 L 37 H 38 H ABG O2 Saturation 93 97 95 ABG Base Excess -9 L 7 H 9 H 06/09/24 06/09/24 06/10/24 05:08 12:52 04:40 ABG pH 7.31 L 7.33 L 7.30 L ABG pCO2 75 H* 57 H D 78 H* D ABG pO2 97 158 H D 65 L D ABG HCO3 38 H 30 H 38 H ABG O2 Saturation 97 99 H 90 L ABG Base Excess 10 H 3 9 H 06/10/24 06/11/24 06/12/24 09:40 04:19 04:15 ABG pH 7.27 L 7.35 7.48 H D ABG pCO2 88 H* D 86 H* 63 H D ABG pO2 65 L 70 L 76 L ABG HCO3 40 H 48 H 47 H ABG O2 Saturation 89 L 93 95 ABG Base Excess 10 H 19 H 21 H 06/13/24 06/14/24 06/15/24 07:22 04:32 03:45 ABG pH 7.46 H 7.48 H 7.46 H ABG pCO2 56 H 40 D 37 ABG pO2 80 L 64 L 71 L ABG HCO3 39 H 30 H 27 H ABG O2 Saturation 95 92 94 ABG Base Excess 13 H 6 H 3 06/15/24 06/15/24 06/15/24 10:17 12:20 14:20 ABG pH 7.01 L* D 7.00 L* 7.03 L* ABG pCO2 122 H* D 130 H* 125 H* ABG pO2 91 D 88 82 L ABG HCO3 31 H 32 H 33 H ABG O2 Saturation 88 L 88 L 87 L ABG Base Excess -3 -2 -1 06/15/24 06/15/24 06/16/24 15:55 20:39 00:35 ABG pH 7.03 L* 7.08 L* 7.10 L* ABG pCO2 121 H* 116 H* 118 H* ABG pO2 99 117 H 102 ABG HCO3 32 H 34 H 37 H ABG O2 Saturation 93 97 96 ABG Base Excess -1 2 4 H 06/16/24 06/16/24 06/17/24 04:45 08:55 05:06 ABG pH 7.17 L* 7.28 L D 7.33 L ABG pCO2 112 H* 88 H* D 96 H* ABG pO2 155 H D 98 D 126 H D ABG HCO3 41 H 41 H 50 H ABG O2 Saturation 99 H 98 99 H ABG Base Excess 9 H 12 H 21 H 06/17/24 06/17/24 06/18/24 10:58 13:55 04:16 ABG pH 7.29 L 7.29 L 7.33 L ABG pCO2 106 H* D 106 H* 86 H* D ABG pO2 58 L* D 61 L 77 L ABG HCO3 51 H 51 H 45 H ABG O2 Saturation 87 L 88 L 95 ABG Base Excess 21 H 21 H 17 H 06/19/24 06/20/24 06/21/24 04:18 04:49 04:06 ABG pH 7.42 7.36 7.44 ABG pCO2 63 H D 74 H* D 61 H D ABG pO2 66 L 55 L* 202 H D ABG HCO3 41 H 42 H 42 H ABG O2 Saturation 93 87 L 100 H ABG Base Excess 15 H 14 H 16 H 06/22/24 06/23/24 06/24/24 04:18 04:29 04:25 ABG pH 7.45 7.46 H 7.29 L D ABG pCO2 57 H 53 H 80 H* D ABG pO2 60 L D 99 D 88 ABG HCO3 40 H 38 H 38 H ABG O2 Saturation 91 99 H 96 ABG Base Excess 14 H 13 H 9 H 06/24/24 06/25/24 06/25/24 08:50 05:13 11:02 ABG pH 7.40 D 7.46 H Cancelled ABG pCO2 61 H D 53 H Cancelled ABG pO2 110 H D 66 L D Cancelled ABG HCO3 38 H 38 H Cancelled ABG O2 Saturation 99 H 94 Cancelled ABG Base Excess 12 H 13 H Cancelled 06/25/24 06/26/24 06/26/24 15:53 04:13 11:40 ABG pH 7.39 7.41 7.46 H ABG pCO2 53 H 48 43 ABG pO2 55 L* 58 L* 58 L* ABG HCO3 32 H 30 H 31 H ABG O2 Saturation 86 L 89 L 92 ABG Base Excess 6 H 5 H 6 H 06/27/24 06/28/24 06/28/24 04:17 04:24 06:22 ABG pH 7.48 H 7.27 L D 7.22 L ABG pCO2 39 72 H* D 83 H* D ABG pO2 49 L* 71 L D 82 L ABG HCO3 29 H 33 H 34 H ABG O2 Saturation 87 L 93 95 ABG Base Excess 5 H 5 H 4 H 06/28/24 06/29/24 06/30/24 10:18 04:21 07:57 ABG pH 7.32 L D 7.41 7.41 ABG pCO2 64 H D 63 H 62 H ABG pO2 76 L 81 L 59 L* D ABG HCO3 33 H 40 H 40 H ABG O2 Saturation 95 97 88 L ABG Base Excess 6 H 14 H 13 H 07/02/24 07/03/24 07/04/24 04:05 04:45 04:11 ABG pH 7.46 H 7.43 7.38 ABG pCO2 53 H 58 H 67 H ABG pO2 77 L 100 D 73 L D ABG HCO3 38 H 39 H 40 H ABG O2 Saturation 96 98 94 ABG Base Excess 12 H 13 H 13 H 07/05/24 04:40 ABG pH 7.30 L ABG pCO2 87 H* D ABG pO2 132 H D ABG HCO3 43 H ABG O2 Saturation 99 H ABG Base Excess 14 H Quality Measures Quality Measures sepsis Current suspected stage: ruled out Possible source: pulmonary, GI tract/intra-abdominal, genitourinary and skin/soft tissue Blood cultures ordered: yes Antibiotic ordered: Yes Assessment & Plan Assessment Current Active Medications: Generic Name Dose Route Start Last Admin Trade Name Freq PRN Reason Stop Dose Admin Acetaminophen 650 mg 06/26/24 15:16 07/01/24 05:53 Acetaminophen Munira 325 Mg/10 Ml Udc GT 07/26/24 15:15 650 mg Q4HR PRN Administration Pain Or Fever > 100.3 Acetylcysteine 3 ml 07/03/24 13:00 07/05/24 12:13 Acetylcysteine Munira 20% 4 Ml Nebu INH 08/02/24 12:59 3 ml Q6HRRT JUAN JOSE Administration Albuterol/Ipratropium 3 ml 06/05/24 11:40 06/25/24 08:58 Albuterol/Ipratropium (Duoneb) Rt Munira 3 Ml Nebu INH 07/05/24 14:59 3 ml Q4HRRT PRN Administration Wheezing Albuterol/Ipratropium 3 ml 07/03/24 13:00 07/05/24 12:13 Albuterol/Ipratropium (Duoneb) Rt Munira 3 Ml Nebu INH 08/02/24 12:59 3 ml Q6HRRT JUAN JOSE Administration Artificial Tears 1 drop 06/18/24 12:00 07/05/24 13:12 Artificial Tears 225 Drop/15 Ml Btl BOTH EYES 07/18/24 11:59 1 drop QID JUAN JOSE Administration Calcium Carbonate 600 mg 06/28/24 13:00 07/05/24 13:12 Calcium Carbonate 600 Mg Tablet GT 07/28/24 12:59 600 mg QDAY@1300 JUAN JOSE Administration Clonazepam 2 mg 06/28/24 08:45 07/05/24 13:15 Clonazepam 0.5 Mg Tablet PO 07/19/24 08:44 2 mg TID JUAN JOSE Administration Dextrose 25 ml 06/06/24 08:20 Dextrose 50%-Water Inj 50 Ml Syringe IV 07/06/24 08:19 Q15MIN PRN BG 50-70 responsive npo pt Dextrose 50 ml 06/06/24 08:20 Dextrose 50%-Water Inj 50 Ml Syringe IV 07/06/24 08:19 Q15MIN PRN BG <50 OR BG <70 & pt unresponsive Docusate Sodium 100 mg 06/25/24 09:13 Docusate Sod Liqd 100 Mg/10 Ml Udc PO 07/22/24 08:59 BID PRN Constipation Protocol Docusate Sodium 250 mg 07/02/24 10:00 07/02/24 20:13 Docusate Sod Liqd 100 Mg/10 Ml Udc GT 07/31/24 09:14 250 mg BID JUAN JOSE Administration Protocol Emtricitabine/Tenofovir 1 tab 06/16/24 12:30 07/05/24 08:00 Emtricitabine 200 Mg/Tenofovir 300 Mg Tab (Non-Form) PO 07/16/24 12:29 1 tab QDAY JUAN JOSE Administration Ferrous Sulfate 300 mg 07/02/24 10:00 07/05/24 08:04 Ferrous Sulfate 300 Mg/5 Ml Udc GT 07/23/24 09:59 300 mg QDAY JUAN JOSE Administration Glucagon 1 mg 06/06/24 08:20 Glucagon Inj 1 Mg Vial IM Q15MIN PRN BG <70, and no IV access Norepinephrine/Dextrose 8 mg in 250 mls @ 6.319 mls/hr 06/30/24 04:17 07/05/24 11:00 Levophed In D5w 8mg/250ml IV 07/30/24 04:16 0.03 mcg/kg/min .Q24H PRN 3.791 mls/hr PER PROTOCOL Titration Protocol 0.05 MCG/KG/MIN Heparin Sodium/Dextrose 25,000 unit in 250 mls @ 13.5 mls/hr 07/02/24 09:45 07/05/24 13:12 Heparin In D5w Ivpb IV 07/16/24 09:44 20 units/kg/hr .[id number] JUAN JOSE 15 mls/hr Administration Protocol 18 UNITS/KG/HR Propofol 1,000 mg in 100 mls @ 2.25 mls/hr 07/04/24 06:39 07/05/24 11:38 Diprivan Ivpb IV 08/03/24 06:38 50 mcg/kg/min .Q24H PRN 22.5 mls/hr PER PROTOCOL Administration Protocol 5 MCG/KG/MIN Fentanyl Citrate 2,500 mcg in 250 mls @ 2.5 mls/hr 07/04/24 06:59 07/05/24 11:00 Sublimaze Inj 2,500 Mcg/250 Ml Bag IV 07/05/24 14:48 300 mcg/hr .Q24H PRN 30 mls/hr PER PROTOCOL Titration Protocol 25 MCG/HR Dexmedetomidine/Sodium Chloride 200 mcg in 50 mls @ 3.6 mls/hr 07/04/24 06:59 07/05/24 11:38 Precedex Ivpb IV 08/01/24 00:16 1.4 mcg/kg/hr .[id number] PRN 25.2 mls/hr Per PROTOCOL Administration Protocol 0.2 MCG/KG/HR Methylprednisolone Sodium Succinate 40 mg 07/02/24 17:15 07/05/24 13:12 Methylprednisolone Sod Succ 40 Mg Vial IVP 07/09/24 17:14 40 mg TID JUAN JOSE Administration Metoprolol Tartrate 25 mg 07/04/24 09:00 07/05/24 07:59 Metoprolol Tartrate 25 Mg Tablet PO 08/03/24 08:59 Not Given BID JUAN JOSE Quetiapine Fumarate 100 mg 06/28/24 21:00 07/05/24 08:04 Quetiapine Fumarate 100 Mg Tablet PO 07/25/24 20:59 100 mg BID JUAN JOSE Administration Raltegravir 400 mg 07/03/24 15:40 07/05/24 08:00 Raltegravir 400 Mg Tablet NG 07/06/24 08:29 400 mg BID JUAN JOSE Administration Trimethoprim/Sulfamethoxazole 20 ml 06/23/24 09:00 07/05/24 08:00 Trimethoprim/Sulfa Susp 1 Ml PO 06/22/25 12:00 20 ml QDAY JUAN JOSE Administration Plan 39-year-old male patient with no PMHx who initially presented to [facility] on 05/[facility]24 with a chief complaint of shortness of breath and cough, with associated chills, body aches, generalized weakness, fever, and night sweats beginning weeks prior but progressively worsening over a few days is currently being treated for acute hypoxic respiratory failure secondary to PCP pneumonia that was complicated by ventilator associated pneumonia. Patient is currently on tracheostomy tube and mechanically ventilated. 07/04/2024: The patient was examined and evaluated at the bedside this morning. He was tachycardic with heart rate ranging from 110s to 120, saturating 92 to 94% with tidal volume 450 cc. Overnight event was significant for severe cough spell that started this morning, and his saturation trended down to 70s, when manual bagging was done for ventilation and patient also required addition of propofol, midazolam 2 mg IV x 1 and IV rocuronium 30 Mg x 1. The patient's lung compliance was severely worsened, and was placed on tidal volume of 400. We will allow permissive hypercapnia at this time. We will repeat influenza and COVID test, as there could be possibility of transmission in the setting of multiple patients visiting him daily. There is a possibility of 0 in the setting of immunocompromised state, but the patient is unstable to get CT scan at this point. We cannot proceed with proning position as the patient is ventilating through tracheostomy tube. NEURO Patient is sedated and mechanically ventilated through tracheostomy tube. 06/05/2024 Patient was intubated, sedated, and paralyzed for ARDS. Currently on enteral sedatives clonazepam 2 Mg 3 times daily. -Patient was started back on fentanyl drip for further sedation as patient developed pneumomediastinum on 06/30/2024. Added presidex drip for proper sedation as the patient is having breath stacking. -MRI showed no acute hemorrhage, infarct, mass effect, or midline shift. No findings diagnostic for demyelinating disease. EEG was normal. #Fever No overnight fever episodes, Multiple cultures has been negative and on appropriate antibiotics -Repeat influenza and COVID test on 07/04 negative -Treat underlying condition -Tylenol as needed CARDIO #Right upper extremity DVT. -Doppler US right upper extremity 06/17/24: revealed RUE DVT -On Heparin Drip, can be switched to oral anticoagulants #Sinus tachycardia, resolved Tachycardia most likely secondary to severe acute respiratory distress syndrome -Continue to treat the underlying cause -metoprolol tartrate 25mg BID, as possibility of supraventricular tachycardia, but no EEG repeated -Repeat EEG if HR above 140. #Shock Most likely 2/2 sedation. BC has been negative and on appropriate antibiotics Patient presented with septic shock secondary to severe extensive bilateral pneumonia. After resolution of initial septic shock, patient developed new hypotension, tachycardia, tachypnea, fevers indicated of septic shock. -Pressor support as needed -Linezolid (started 06/27-07/04) -Meropenem (started 06/27-07/04) -Urine (06/27) showed resistant staph epi -Blood (06/27) showed resistant Staphylococcus haemolyticus -follow up repeat blood cultures and urine cultures -Repeat Influenza is negative and repeat COVID test pending results PULM #Chronic hypoxic respiratory failure 2/2 #Severe Acute respiratory distress syndrome in the setting of post PCP pneumonia state Secondary to #Bilateral pneumocystis jirovecii pneumonia, resolved #Healthcare associated pneumonia, resolved, resolved #Ventilator associated pneumonia, resolved #S/P Tracheostomy #Pneumomediastinum Patient presented with dyspnea and cough, requiring 4L NC on first ED evaluation, and history of chills, body aches, generalized weakness, fever, and night sweats progressively worsening over the prior weeks. Approx 20-pack year smoking history, occasional marijuana. 06/17/2024 oxygenation and hypercapnia improved 06/30/2024: CT chest/abdomen/pelvis revealed pneumomediastinum On linezolid 600 mg q12h 06/15/24-06/22/24 Plan: -Linezolid (started 06/27-07/04) and Meropenum (started 06/27-07/04) -Continue with daily Bactrim -ABG as needed -Continue sedation RAAS scale -3 with fentanyl drip and Precedex drip as there is breath stacking 2/2 ARDS in the setting of pneumomediastinum, and decreased tidal volume to 400cc -Cannot proceed with Proning as patient has tracheostomy tube placed -Repeat Influenza and COVID19 is negative GI GI prophylaxis: None as patient got extubated and is on tracheostomy tube. #Elevated LFTs 2/2 phenobarbitol and Oxycodone use Liver enzymes started trending down after discontinuing oxycodone and phenobarbitol. liver US 05/30/2024 showed normal gallbladder and hepatomegaly without lesions or evidence of obstructions. Hep panel negative. LFTs downtrending Plan: -Continue monitoring #Hypertriglyceridemia, trending down More likely secondary to propofol use -We repeated lipid panel on 06/30/2024- 183 -Started on propofol, and we will continue to trend TGL NEPHRO #Hypophosphatemia, stable #WILL, resolved #Hyperkalemia---Resolved #Hyperphosphatemia, resolved Hypophosphatemia likely secondary to nutritional deficiency, further complicated by decreased absorption due to patient being on Bactrim and calcium carbonate. Plan: -Discontinued Veltassa as potassium has been in the lower end of normal value -On Neutra phos 2 packs TID- stopped on 07/05 -Maintain euvolemia -Replete electrolytes as needed. #Mild hyponatremia Secondary to SIADH due to acute hypoxic respiratory failure leading to pulmonary distress -Continue to monitor #NAGMA #Primary Respiratory acidosis compensated by metabolic alkalosis, stable Secondary to increased work of breathing and increased RR 2/2 chronic hypoxic respiratory failure and chronic respiratory distress syndrome in the setting of tapering down of IV sedatives -ABGs revealed pH of 7.46, pCO2 53, pO2 66 and bicarb 38. -ABG on 06/28/2024 revealed pH of 7.32, pCO2 64 and bicarb 33.1. -We will treat the underlying cause HEME #Leukocytosis, resolved Fluctuating WBC. In the setting of likely infection, inflammation, and corticosteroids. 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 Clinically no evidence of bleeding. Iron panel shows iron 17, TIBC 262, iron saturation 6, unsaturated iron binding 245. Peripheral blood film confirms microcytic hypochromic anemia with target cells. Also daily lab draws contributing. Plan: -Started on oral ferrous sulfate 325 Mg daily -Monitor H&H. Transfusing for Hgb <7 #Thrombocytosis, resolved Likely reactive. -Continue to monitor ENDO #Hypoglycemia, resolved Blood glucose this morning was 69, likely secondary to increased metabolic acid complicated by stopping enteral feeding -Bolus D50W given -Repeat blood sugar was stable -Enteral feeding ID #Bilateral pneumocystis pneumonia, resolved #Healthcare associated pneumonia, resolved #Ventilator associated pneumonia, resolved #PCP pneumonia prophylaxis Negative studies: Cocci IgM and IgG, Hepatitis panel, Syphilis, Legionella, H.flu, N.meningitidis, Strep B, Strep pneumoniae, COVID, RSV, Flu A & B. TB quantiferon GOLD-indeterminate, however 06/05 AFB negative, CMV IgM, cryptococcal antigen negative. G6PD levels came back normal for consideration of dapsone alternative to Bactrim if needed. Patient completed 5 day course of azithromycin, 16 days of Zosyn. See Pulm for timeline of antimicrobial coverage. On 06/27 patient developed new septic shock Plan: -Antibiotcs Bactrim for prevention of PCP pneumonia in the setting of CD4 count of 116 -Linezolid and meropenum restarted on 06/27/2024-07/04/24 -Urine ackerman port grew GPC, Staph epidermidis that is MDR, sensitive to linezolid. -Fungal cultures from BAL pending, follow-up on results -Blood cultures from 06/26/2024 and 06/27/2024, negative so far, cultures drawn on 06/29/2024 is pending -Follow up blood, sputum, and urine cultures #AIDS/HIV Patient has Stage 4 HIV, AIDS-defining illness with opportunistic infection. 06/07/2024 Bronchoalveolar lavage cytology shows Pneumocystis jirovecii. Also other fungi, possibly Kassandra. Kassandra is most likely a contaminant. Blood [id number] also positive. 06/08/2024 HIV quant 5.66 million copies. HIV 1 positive confirmed. 06/09/2024 Patient's decision maker, Francesca, was informed of diagnosis due to critical state of patient. Absolute CD4 count 87 and 22% on 06/02. History/risk factors: History of injection anabolic androgenic steroid and testosterone use, possible unclean needles. History of incarceration (unknown time). Tattoos received as a teenager. Has 1 female sexual partner last 5 years, denies others. -Continue HAART: emtricitabine / tenofovir (Truvada) and raltegravir initiated 06/09/24 -Patient is not aware of his diagnosis as he has been intubated and sedated before results returned. Will require complete education and counseling on the disease if his mental status and clinical condition improves. 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 The patient is being downgraded to telemetry unit for further management of chronic hypoxic respiratory failure s/p tracheostomy. DVT prophylaxis: On heparin drip for treatment of right upper extremity DVT GI prophylaxis: Pantoprazole 40 mg IV qday, discontinued Diet: Tube feeds Ackerman: No, condom cath Lines: Peripheral IV, removed rt femoral central line on 06/28/24 Antibiotics: Bactrim CODE STATUS: DNR/DNI The patient's management plan was discussed with my attending physician MD Jeff Story MD, PGY2
[2024-07-06] VITALS (110 sets, daily range): BP systolic 86–142; BP diastolic 46–87; PULSE 62–108; RESP 22–39; TEMP 36.4–37.7; O2SAT 86–100; BMI 24.7
[2024-07-06] MEDS: ACETYLCYSTEINE SOL 20% 4 ML NEBU 3 ML INH ×4 (00:33→19:20)
[2024-07-06] MEDS: ALBUTEROL/IPRATROPIUM (Duoneb) RT SOL 3 ML NEBU INH ×4 (00:33→19:20)
[2024-07-06] MEDS: DEXMEDETOMIDINE 200 MCG IVPB 200 MCG/50 ML BOTTLE 25.2 MCG IV ×12 (00:39→21:45)
[2024-07-06] MEDS: fentaNYL 2,500 MCG/250 ML BAG 2,500 MCG/250 ML BAG 30 MCG IV ×3 (01:32→18:32)
[2024-07-06] MEDS: PROPOFOL 1,000 MG IVPB 1,000 MG/100 ML VIAL 22.5 MG IV ×4 (03:16→18:12)
[2024-07-06 04:26] LABS: Base Excess 17 (-3-3); HCO3 43 mEq/L (20-26); Inspired Oxygen, FIO2 45 %; O2 Saturation 92 % (91-98); PCO2 67 mmHg (32.0-48.0); PO2 64 mmHg (83-108); pH, Arterial 7.42 (7.35-7.45)
[2024-07-06 04:31] LABS: Allen Test Performed/OK; Puncture Site Right Radial
[2024-07-06] MEDS: clonazePAM 0.5 MG TABLET 2 MG PO ×3 (05:52→21:02)
[2024-07-06] MEDS: Artificial Tears 225 DROP/15 ML BTL BOTH EYES ×4 (05:53→21:02)
[2024-07-06 06:07] LABS: Basophils % (Auto) 1 % (0-2.5); Eosinophils # (Auto) 0.1 Thou/mm3 (0.0-0.5); Eosinophils % (Auto) 2 % (0-10); Hematocrit 25.6 % (41.0-53.0); Immature Granulocytes % (Auto) 3 % (0-0); Immature Granulocytes Auto 0.13 Thou/mm3 (0.00-0.00); Lymphocytes # (Auto) 0.4 Thou/mm3 (1.0-4.8); Lymphocytes % (Auto) 8 % (10-50); Mean Corpuscular HGB Conc 30.5 g/dl (31.0-37.0); Mean Corpuscular Hemoglobin 24.5 pg (25.0-35.0); Mean Corpuscular Volume 80 fL (80-100); Monocytes # (Auto) 0.3 Thou/mm3 (0.0-0.8); Monocytes % (Auto) 5 % (0-12); Neutrophils # (Auto) 3.9 Thou/mm3 (1.8-7.7); Neutrophils % (Auto) 81 % (37-80); Nucleated Red Blood Cell % 0 /100 WBC (0); Platelet Count 314 Thou/mm3 (140-440); RDW Standard Deviation 71.3 fL (35.1-43.9); Red Blood Count 3.19 Miln/mm3 (4.50-5.90); White Blood Count 4.9 Thou/mm3 (3.8-10.6)
[2024-07-06 06:14] LABS: Hemoglobin 7.8 g/dL (13.5-16.0)
[2024-07-06 06:36] LABS: Alanine Aminotransferase 195 U/L (10-49); Albumin, Serum 2.5 gm/dL (3.5-5.0); Albumin/Globulin Ratio 0.9 (1.2-2.2); Alkaline Phosphatase 426 U/L (46-116); Anion Gap 0 (7-16); Aspartate Amino Transferase 209 U/L (0-34); BUN/Creatinine Ratio 38 Ratio (12-20); Bilirubin,Total 0.2 mg/dL (0.3-1.2); Blood Urea Nitrogen 23 mg/dL (9-23); Calcium 8.2 mg/dL (8.3-10.6); Calcium (Corrected) 9.4 mg/dL (8.5-10.1); Carbon Dioxide 39.8 mMol/L (20.0-31.0); Chloride 95 mMol/L (98-107); Creatinine (Component) 0.6 mg/dL (0.6-1.3); Estimated Creatinine Clearance 150.6 mL/min (>60); Globulin 2.7 gm/dL (2.3-3.5); Glucose 121 mg/dL (74-106); Magnesium 2.1 mg/dL (1.6-2.6); Osmolality,Calculated 274 (275-295); Phosphorous 3.1 mg/dL (2.4-5.1); Potassium 4.9 mMol/L (3.4-5.1); Sodium 135 mMol/L (136-145); Total Protein 5.2 gm/dL (5.7-8.2); Triglycerides 196 mg/dL (30-150); eGFR > 60 See Note
[2024-07-06] MEDS: Heparin/D5w 25K 250 ML Ivpb 25,000 UNIT/250 ML BAG 15 UNIT IV (07:47)
[2024-07-06] MEDS: QUEtiapine FUMARATE 100 MG TABLET PO ×2 (08:38→20:52)
[2024-07-06] MEDS: SULFAMETHOXAZOLE PO (08:38)
[2024-07-06] MEDS: Ferrous Sulfate 300 MG/5 ML UDC GT (08:38)
[2024-07-06] MEDS: TRIMETHOPRIM PO (08:38)
[2024-07-06] MEDS: Norepinephrine/D5W 8mg/250ml 8 MG/250 ML BAG 6.319 MG IV (11:20)
--- NOTE | 2024-07-06 12:13 | PC.SS ---
Update: Patient remains Trach/PEG and sedated. HR has decreased to 60's. No current fever. Family at bedside.
--- NOTE | 2024-07-06 12:28 | ESPR_ITS ---
<Statement entered by Emely Price MD - 07/07/24 14:17> TOTAL CC TIME:45 MIN I saw and evaluated the patient. I reviewed the resident?s note and agree with findings and plan as documented in the resident?s note. Upon my evaluation, this patient had a high probability of imminent or life- threatening deterioration due to persistent severe hypoxic respiratory failure, which required my direct attention, intervention, and personal management. This time is exclusive of time spent on procedures, which are documented separately if performed. Cultures remain negative No substantial improvement in respiratory function Patient continues to require high minute ventilation No significant changes in imaging over the last several days When patient becomes more agitated with tachypnea tachycardia oxygen saturations drop but response to increase sedation Overall prognosis remains poor due to advanced HIV and not improving ARDS family is aware patient is DNR/DNI Documentation for date of: 07/06/24 Subjective Subjective Interval history: 07/03/2024: Patient seen and examined at bedside. Patient is mildly tachycardic, 100-110, sinus tachy. Patient has produced good urinary output. Patient remains on levophed, midodrine added for additional BP support.AST/ALT continues to trend down following phenobarbital discontinuation. Patient continues to have breath stacking despite sedation. Mucomist and duonebs added due to copious secretions. 07/04/2024: The patient was examined and evaluated at the bedside this morning. He was tachycardic with heart rate ranging from 110s to 120, saturating 92 to 94% with tidal volume 450 cc. Overnight event was significant for severe cough spell that started this morning, and his saturation trended down to 70s, when manual bagging was done for ventilation and patient also required addition of propofol, midazolam 2 mg IV x 1 and IV rocuronium 30 Mg x 1. The patient's lung compliance was severely worsened, and was placed on tidal volume of 400. We will allow permissive hypercapnia at this time. We will repeat influenza and COVID test, as there could be possibility of transmission in the setting of multiple patients visiting him daily. There is a possibility of 0 in the setting of immunocompromised state, but the patient is unstable to get CT scan at this point. We cannot proceed with proning position as the patient is ventilating through tracheostomy tube. 07/05/2024: The patient was examined and evaluated at the bedside this morning. His heart rate has been in the range of 100-110. Overnight, around this morning the patient again had another spell of intractable coughing episodes, and required bag and mask ventilation. Patient was given 2 mg IV midazolam, and that subsided he is coughing spells. We will continue to trend down FiO2 as tolerated. Ordered galactomannan test to rule out any aspergillosis, as and influenza test done yesterday came back negative. We will stop Neutra-Phos today, and continue to monitor electrolytes. 07/06/2024: The patient was examined and evaluated at the bedside this morning. His heart rate was in 80s to 90s, that later trended down to 59 as lowest and again went up in the 70s. The patient was saturating greater than 88% on FiO2 45%, but later started desaturating to 82 to 83%, and FiO2 was increased to 60%. We stopped metoprolol to tartrate 25 Mg twice daily. Electrolytes are stable, mild elevation in liver enzymes continues. Exam Vital Signs Temp Pulse Resp BP Pulse Ox O2 Del Method O2 Flow Rate 99.1 F 66 37 H 102/52 L 97 Mechanical Ventilation 40 07/06/24 08:00 07/06/24 12:11 07/06/24 12:11 07/06/24 10:15 07/06/24 12:11 07/06/24 04:00 06/09/24 12:16 FiO2 45 07/06/24 12:11 Narrative Exam GEN: Critically ill, not acutely distressed, sedated and mechanically ventilated. Neuro: Deferred due to sedation. HEENT: NCAT, tracheostomy tube on appropriate position, mild abrasion over lower lips, improving. CVS: Mildly tachycardic, no M/R/G. No JVD Respi: Mechanically ventilated, b/l breath sounds heard, significant rhonchi in all lung rosas. ABD: Soft, no grimace to palpation, bowel sounds present in all 4 quadrants, PEG tube in appropriate place Skin: warm, dry and intact. Extremities: Pulses 2+ in all extremities, bilateral upper and lower extremity edema, ruptured vesicles 1-2 cm on the rt forearm surface that have been healing. Objective Labs 07/06/24 05:24 07/06/24 05:24 Labs: Laboratory Results - last 24 hr 07/06/24 07/06/24 04:08 05:24 WBC 4.9 RBC 3.19 L Hgb 7.8 L Hct 25.6 L MCV 80 MCH 24.5 L MCHC 30.5 L RDW Std Deviation 71.3 H Plt Count 314 Neut % (Auto) 81 H Lymph % (Auto) 8 L [place] % (Auto) 5 Eos % (Auto) 2 Baso % (Auto) 1 Neut # (Auto) 3.9 Lymph # (Auto) 0.4 L [place] # (Auto) 0.3 Eos # (Auto) 0.1 Baso # (Auto) 0.0 Immature Gran # (Auto) 0.13 H Absolute Nucleated RBC 0.00 Immature Gran % 3 H Nucleated RBC % 0 Puncture Site Right Radial ABG pH 7.42 D ABG pCO2 67 H D ABG pO2 64 L D ABG HCO3 43 H ABG O2 Saturation 92 ABG Base Excess 17 H FiO2 45 Sodium 135 L Potassium 4.9 Chloride 95 L Carbon Dioxide 39.8 H Anion Gap 0 L BUN 23 Creatinine 0.6 Estim Creat Clear Calc 150.6 eGFR > 60 BUN/Creatinine Ratio 38 H Glucose 121 H Calculated Osmolality 274 L Calcium 8.2 L Corrected Calcium 9.4 Phosphorus 3.1 Magnesium 2.1 Total Bilirubin 0.2 L AST 209 H ALT 195 H Alkaline Phosphatase 426 H D Total Protein 5.2 L Albumin 2.5 L Globulin 2.7 Albumin/Globulin Ratio 0.9 L Triglycerides 196 H ABG Interpretation ABG results: 05/27/24 05/29/24 05/29/24 23:37 10:44 22:08 ABG pH 7.51 H 7.50 H 7.48 H ABG pCO2 28 L 32 32 ABG pO2 75 L 79 L 145 H D ABG HCO3 23 25 24 ABG O2 Saturation 96 95 98 ABG Base Excess 0 2 1 05/30/24 05/31/24 06/04/24 08:45 04:54 02:10 ABG pH 7.47 H 7.45 7.45 ABG pCO2 35 38 36 ABG pO2 86 D 82 L 139 H ABG HCO3 26 26 25 ABG O2 Saturation 97 96 98 ABG Base Excess 2 2 1 06/04/24 06/05/24 06/05/24 18:16 11:36 12:59 ABG pH 7.44 7.11 L* D 7.20 L ABG pCO2 36 94 H* D 68 H D ABG pO2 80 L D 150 H D 121 H D ABG HCO3 24 30 H 26 ABG O2 Saturation 94 97 97 ABG Base Excess 0 -2 -3 06/05/24 06/06/24 06/06/24 19:25 04:13 15:27 ABG pH 7.22 L 7.27 L 7.30 L ABG pCO2 64 H 57 H 60 H ABG pO2 122 H 153 H D 74 L D ABG HCO3 26 26 29 H ABG O2 Saturation 97 99 H 92 ABG Base Excess -3 -2 2 06/07/24 06/07/24 06/08/24 03:55 09:59 04:20 ABG pH 7.41 D 7.43 7.45 ABG pCO2 56 H 55 H 50 H ABG pO2 293 H D 78 L D 75 L ABG HCO3 36 H 37 H 35 H ABG O2 Saturation 99 H 95 94 ABG Base Excess 10 H 11 H 10 H 06/08/24 06/08/24 06/08/24 11:05 11:50 13:18 ABG pH 7.17 L* D 7.10 L* 7.15 L* ABG pCO2 95 H* D 115 H* D 88 H* D ABG pO2 89 75 L 72 L ABG HCO3 34 H 36 H 31 H ABG O2 Saturation 92 84 L 85 L ABG Base Excess 3 4 H 0 06/08/24 06/09/24 06/09/24 17:02 01:33 03:15 ABG pH 7.18 L* 7.22 L 7.27 L ABG pCO2 50 H D 91 H* D 82 H* ABG pO2 82 L 105 D 86 ABG HCO3 19 L 37 H 38 H ABG O2 Saturation 93 97 95 ABG Base Excess -9 L 7 H 9 H 06/09/24 06/09/24 06/10/24 05:08 12:52 04:40 ABG pH 7.31 L 7.33 L 7.30 L ABG pCO2 75 H* 57 H D 78 H* D ABG pO2 97 158 H D 65 L D ABG HCO3 38 H 30 H 38 H ABG O2 Saturation 97 99 H 90 L ABG Base Excess 10 H 3 9 H 06/10/24 06/11/24 06/12/24 09:40 04:19 04:15 ABG pH 7.27 L 7.35 7.48 H D ABG pCO2 88 H* D 86 H* 63 H D ABG pO2 65 L 70 L 76 L ABG HCO3 40 H 48 H 47 H ABG O2 Saturation 89 L 93 95 ABG Base Excess 10 H 19 H 21 H 06/13/24 06/14/24 06/15/24 07:22 04:32 03:45 ABG pH 7.46 H 7.48 H 7.46 H ABG pCO2 56 H 40 D 37 ABG pO2 80 L 64 L 71 L ABG HCO3 39 H 30 H 27 H ABG O2 Saturation 95 92 94 ABG Base Excess 13 H 6 H 3 06/15/24 06/15/24 06/15/24 10:17 12:20 14:20 ABG pH 7.01 L* D 7.00 L* 7.03 L* ABG pCO2 122 H* D 130 H* 125 H* ABG pO2 91 D 88 82 L ABG HCO3 31 H 32 H 33 H ABG O2 Saturation 88 L 88 L 87 L ABG Base Excess -3 -2 -1 06/15/24 06/15/24 06/16/24 15:55 20:39 00:35 ABG pH 7.03 L* 7.08 L* 7.10 L* ABG pCO2 121 H* 116 H* 118 H* ABG pO2 99 117 H 102 ABG HCO3 32 H 34 H 37 H ABG O2 Saturation 93 97 96 ABG Base Excess -1 2 4 H 06/16/24 06/16/24 06/17/24 04:45 08:55 05:06 ABG pH 7.17 L* 7.28 L D 7.33 L ABG pCO2 112 H* 88 H* D 96 H* ABG pO2 155 H D 98 D 126 H D ABG HCO3 41 H 41 H 50 H ABG O2 Saturation 99 H 98 99 H ABG Base Excess 9 H 12 H 21 H 06/17/24 06/17/24 06/18/24 10:58 13:55 04:16 ABG pH 7.29 L 7.29 L 7.33 L ABG pCO2 106 H* D 106 H* 86 H* D ABG pO2 58 L* D 61 L 77 L ABG HCO3 51 H 51 H 45 H ABG O2 Saturation 87 L 88 L 95 ABG Base Excess 21 H 21 H 17 H 06/19/24 06/20/24 06/21/24 04:18 04:49 04:06 ABG pH 7.42 7.36 7.44 ABG pCO2 63 H D 74 H* D 61 H D ABG pO2 66 L 55 L* 202 H D ABG HCO3 41 H 42 H 42 H ABG O2 Saturation 93 87 L 100 H ABG Base Excess 15 H 14 H 16 H 06/22/24 06/23/24 06/24/24 04:18 04:29 04:25 ABG pH 7.45 7.46 H 7.29 L D ABG pCO2 57 H 53 H 80 H* D ABG pO2 60 L D 99 D 88 ABG HCO3 40 H 38 H 38 H ABG O2 Saturation 91 99 H 96 ABG Base Excess 14 H 13 H 9 H 06/24/24 06/25/24 06/25/24 08:50 05:13 11:02 ABG pH 7.40 D 7.46 H Cancelled ABG pCO2 61 H D 53 H Cancelled ABG pO2 110 H D 66 L D Cancelled ABG HCO3 38 H 38 H Cancelled ABG O2 Saturation 99 H 94 Cancelled ABG Base Excess 12 H 13 H Cancelled 06/25/24 06/26/24 06/26/24 15:53 04:13 11:40 ABG pH 7.39 7.41 7.46 H ABG pCO2 53 H 48 43 ABG pO2 55 L* 58 L* 58 L* ABG HCO3 32 H 30 H 31 H ABG O2 Saturation 86 L 89 L 92 ABG Base Excess 6 H 5 H 6 H 06/27/24 06/28/24 06/28/24 04:17 04:24 06:22 ABG pH 7.48 H 7.27 L D 7.22 L ABG pCO2 39 72 H* D 83 H* D ABG pO2 49 L* 71 L D 82 L ABG HCO3 29 H 33 H 34 H ABG O2 Saturation 87 L 93 95 ABG Base Excess 5 H 5 H 4 H 06/28/24 06/29/24 06/30/24 10:18 04:21 07:57 ABG pH 7.32 L D 7.41 7.41 ABG pCO2 64 H D 63 H 62 H ABG pO2 76 L 81 L 59 L* D ABG HCO3 33 H 40 H 40 H ABG O2 Saturation 95 97 88 L ABG Base Excess 6 H 14 H 13 H 07/02/24 07/03/24 07/04/24 04:05 04:45 04:11 ABG pH 7.46 H 7.43 7.38 ABG pCO2 53 H 58 H 67 H ABG pO2 77 L 100 D 73 L D ABG HCO3 38 H 39 H 40 H ABG O2 Saturation 96 98 94 ABG Base Excess 12 H 13 H 13 H 07/05/24 07/06/24 04:40 04:08 ABG pH 7.30 L 7.42 D ABG pCO2 87 H* D 67 H D ABG pO2 132 H D 64 L D ABG HCO3 43 H 43 H ABG O2 Saturation 99 H 92 ABG Base Excess 14 H 17 H Quality Measures Quality Measures sepsis Current suspected stage: ruled out Possible source: pulmonary, GI tract/intra-abdominal, genitourinary and skin/soft tissue Blood cultures ordered: yes Antibiotic ordered: Yes Assessment & Plan Assessment Current Active Medications: Generic Name Dose Route Start Last Admin Trade Name Freq PRN Reason Stop Dose Admin Acetaminophen 650 mg 06/26/24 15:16 07/01/24 05:53 Acetaminophen Munira 325 Mg/10 Ml Udc GT 07/26/24 15:15 650 mg Q4HR PRN Administration Pain Or Fever > 100.3 Acetylcysteine 3 ml 07/03/24 13:00 07/06/24 12:11 Acetylcysteine Munira 20% 4 Ml Nebu INH 08/02/24 12:59 3 ml Q6HRRT JUAN JOSE Administration Albuterol/Ipratropium 3 ml 07/03/24 13:00 07/06/24 12:11 Albuterol/Ipratropium (Duoneb) Rt Munira 3 Ml Nebu INH 08/02/24 12:59 3 ml Q6HRRT JUAN JOSE Administration Artificial Tears 1 drop 06/18/24 12:00 07/06/24 05:53 Artificial Tears 225 Drop/15 Ml Btl BOTH EYES 07/18/24 11:59 1 drop QID JUAN JOSE Administration Calcium Carbonate 600 mg 06/28/24 13:00 07/05/24 13:12 Calcium Carbonate 600 Mg Tablet GT 07/28/24 12:59 600 mg QDAY@1300 JUAN JOSE Administration Clonazepam 2 mg 06/28/24 08:45 07/06/24 05:52 Clonazepam 0.5 Mg Tablet PO 07/19/24 08:44 2 mg TID JUAN JOSE Administration Docusate Sodium 100 mg 06/25/24 09:13 Docusate Sod Liqd 100 Mg/10 Ml Udc PO 07/22/24 08:59 BID PRN Constipation Protocol Docusate Sodium 250 mg 07/02/24 10:00 07/02/24 20:13 Docusate Sod Liqd 100 Mg/10 Ml Udc GT 07/31/24 09:14 250 mg BID JUAN JOSE Administration Protocol Emtricitabine/Tenofovir 1 tab 07/06/24 11:30 Emtricitabine 200 Mg/Tenofovir 300 Mg Tab (Non-Form) PO 07/13/24 11:29 QDAY JUAN JOSE Ferrous Sulfate 300 mg 07/02/24 10:00 07/06/24 08:38 Ferrous Sulfate 300 Mg/5 Ml Udc GT 07/23/24 09:59 300 mg QDAY JUAN JOSE Administration Norepinephrine/Dextrose 8 mg in 250 mls @ 6.319 mls/hr 06/30/24 04:17 07/06/24 10:00 Levophed In D5w 8mg/250ml IV 07/30/24 04:16 Infused .Q24H PRN Titration PER PROTOCOL Protocol 0.05 MCG/KG/MIN Propofol 1,000 mg in 100 mls @ 2.25 mls/hr 07/04/24 06:39 07/06/24 10:00 Diprivan Ivpb IV 08/03/24 06:38 50 mcg/kg/min .Q24H PRN 22.5 mls/hr PER PROTOCOL Titration Protocol 5 MCG/KG/MIN Dexmedetomidine/Sodium Chloride 200 mcg in 50 mls @ 3.6 mls/hr 07/04/24 06:59 07/06/24 12:20 Precedex Ivpb IV 08/01/24 00:16 1.4 mcg/kg/hr .[id number] PRN 25.2 mls/hr Per PROTOCOL Administration Protocol 0.2 MCG/KG/HR Fentanyl Citrate 2,500 mcg in 250 mls @ 2.5 mls/hr 07/05/24 14:45 07/06/24 09:51 Sublimaze Inj 2,500 Mcg/250 Ml Bag IV 08/15/24 14:44 300 mcg/hr .Q24H PRN 30 mls/hr PER PROTOCOL Administration Protocol 25 MCG/HR Methylprednisolone Sodium Succinate 40 mg 07/06/24 21:00 Methylprednisolone Sod Succ 40 Mg Vial IVP 07/13/24 20:59 BID JUAN JOSE Quetiapine Fumarate 100 mg 06/28/24 21:00 07/06/24 08:38 Quetiapine Fumarate 100 Mg Tablet PO 07/25/24 20:59 100 mg BID JUAN JOSE Administration Raltegravir 400 mg 07/06/24 11:30 Raltegravir 400 Mg Tablet NG 07/13/24 11:29 BID JUAN JOSE Trimethoprim/Sulfamethoxazole 20 ml 06/23/24 09:00 07/06/24 08:38 Trimethoprim/Sulfa Susp 1 Ml PO 06/22/25 12:00 20 ml QDAY JUAN JOSE Administration Plan 39-year-old male patient with no PMHx who initially presented to [facility] (Formerly [facility]) on 05/27/2024 with a chief complaint of shortness of breath and cough, with associated chills, body aches, generalized weakness, fever, and night sweats beginning weeks prior but progressively worsening over a few days is currently being treated for acute hypoxic respiratory failure secondary to PCP pneumonia that was complicated by ventilator associated pneumonia. Patient is currently on tracheostomy tube and mechanically ventilated. 07/06/2024: The patient was examined and evaluated at the bedside this morning. His heart rate was in 80s to 90s, that later trended down to 59 as lowest and again went up in the 70s. The patient was saturating greater than 88% on FiO2 45%, but later started desaturating to 82 to 83%, and FiO2 was increased to 60%. We stopped metoprolol to tartrate 25 Mg twice daily. Electrolytes are stable, mild elevation in liver enzymes continues. NEURO Patient is sedated and mechanically ventilated through tracheostomy tube. 06/05/2024 Patient was intubated, sedated, and paralyzed for ARDS. Currently on enteral sedatives clonazepam 2 Mg 3 times daily. -Patient was started back on fentanyl drip for further sedation as patient developed pneumomediastinum on 06/30/2024. Added presidex drip for proper sedation as the patient is having breath stacking. -MRI showed no acute hemorrhage, infarct, mass effect, or midline shift. No findings diagnostic for demyelinating disease. EEG was normal. #Fever, resolved Multiple cultures has been negative, and no overnight episodes of fever -Repeat influenza and COVID test on 07/04 negative -Treat underlying condition -Tylenol as needed CARDIO #Right upper extremity DVT. -Doppler US right upper extremity 06/17/24: revealed RUE DVT -On Heparin Drip, can be switched to oral anticoagulants once hemodynamially stable. #Sinus tachycardia, resolved Tachycardia most likely secondary to severe acute respiratory distress syndrome -Continue to treat the underlying cause #Shock Most likely 2/2 sedation. BC has been negative and on appropriate antibiotics Patient presented with septic shock secondary to severe extensive bilateral pneumonia. After resolution of initial septic shock, patient developed new hypotension, tachycardia, tachypnea, fevers indicated of septic shock. -Pressor support as needed -Linezolid (started 06/27-07/04) -Meropenem (started 06/27-07/04) -Urine (06/27) showed resistant staph epi -Blood (06/27) showed resistant Staphylococcus haemolyticus -follow up repeat blood cultures and urine cultures -Repeat Influenza is negative and repeat COVID test pending results PULM #Chronic hypoxic respiratory failure 2/2 #Severe Acute respiratory distress syndrome in the setting of post PCP pneumonia state Secondary to #Bilateral pneumocystis jirovecii pneumonia, resolved #Healthcare associated pneumonia, resolved, resolved #Ventilator associated pneumonia, resolved #S/P Tracheostomy #Pneumomediastinum Patient presented with dyspnea and cough, requiring 4L NC on first ED evaluation, and history of chills, body aches, generalized weakness, fever, and night sweats progressively worsening over the prior weeks. Approx 20-pack year smoking history, occasional marijuana. 06/17/2024 oxygenation and hypercapnia improved 06/30/2024: CT chest/abdomen/pelvis revealed pneumomediastinum On linezolid 600 mg q12h 06/15/24-06/22/24 Plan: -Linezolid (started 06/27-07/04) and Meropenum (started 06/27-07/04) -Continue with daily Bactrim -ABG as needed -Continue sedation RAAS scale -3 with fentanyl drip and Precedex drip as there is breath stacking 2/2 ARDS in the setting of pneumomediastinum, and decreased tidal volume to 400cc -Cannot proceed with Proning as patient has tracheostomy tube placed -Repeat Influenza and COVID19 is negative GI GI prophylaxis: None as patient got extubated and is on tracheostomy tube. #Elevated LFTs 2/2 phenobarbitol and Oxycodone use Liver enzymes started trending down after discontinuing oxycodone and phenobarbitol. liver US 05/30/2024 showed normal gallbladder and hepatomegaly without lesions or evidence of obstructions. Hep panel negative. LFTs downtrending Plan: -Continue monitoring #Hypertriglyceridemia, trending down More likely secondary to propofol use -We repeated lipid panel on 06/30/2024- 183 -Started on propofol, and we will continue to trend TGL NEPHRO #Hypophosphatemia, stable #WILL, resolved #Hyperkalemia---Resolved #Hyperphosphatemia, resolved Hypophosphatemia likely secondary to nutritional deficiency, further complicated by decreased absorption due to patient being on Bactrim and calcium carbonate. Plan: -Discontinued Veltassa as potassium has been in the lower end of normal value -On Neutra phos 2 packs TID- stopped on 07/05 -Maintain euvolemia -Replete electrolytes as needed. #Mild hyponatremia Secondary to SIADH due to acute hypoxic respiratory failure leading to pulmonary distress -Continue to monitor #NAGMA #Primary Respiratory acidosis compensated by metabolic alkalosis, stable Secondary to increased work of breathing and increased RR 2/2 chronic hypoxic respiratory failure and chronic respiratory distress syndrome in the setting of tapering down of IV sedatives -ABGs revealed pH of 7.46, pCO2 53, pO2 66 and bicarb 38. -ABG on 06/28/2024 revealed pH of 7.32, pCO2 64 and bicarb 33.1. -We will treat the underlying cause HEME #Leukocytosis, resolved Fluctuating WBC. In the setting of likely infection, inflammation, and corticosteroids. 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 Clinically no evidence of bleeding. Iron panel shows iron 17, TIBC 262, iron saturation 6, unsaturated iron binding 245. Peripheral blood film confirms microcytic hypochromic anemia with target cells. Also daily lab draws contributing. Plan: -Started on oral ferrous sulfate 300 Mg daily -Monitor H&H. Transfusing for Hgb <7 #Thrombocytosis, resolved Likely reactive. -Continue to monitor ENDO #Hypoglycemia, resolved Blood glucose this morning was 69, likely secondary to increased metabolic acid complicated by stopping enteral feeding ID #Bilateral pneumocystis pneumonia, resolved #Healthcare associated pneumonia, resolved #Ventilator associated pneumonia, resolved #PCP pneumonia prophylaxis Negative studies: Cocci IgM and IgG, Hepatitis panel, Syphilis, Legionella, H.flu, N.meningitidis, Strep B, Strep pneumoniae, COVID, RSV, Flu A & B. TB quantiferon GOLD-indeterminate, however 06/05 AFB negative, CMV IgM, cryptococcal antigen negative. G6PD levels came back normal for consideration of dapsone alternative to Bactrim if needed. Patient completed 5 day course of azithromycin, 16 days of Zosyn. See Pulm for timeline of antimicrobial coverage. On 06/27 patient developed new septic shock Plan: -Antibiotcs Bactrim for prevention of PCP pneumonia in the setting of CD4 count of 116 -Linezolid and meropenum restarted on 06/27/2024-07/04/24 -Urine ackerman port grew GPC, Staph epidermidis that is MDR, sensitive to linezolid. -Fungal cultures from BAL pending, follow-up on results -Blood cultures from 06/26/2024 and 06/27/2024, negative so far, cultures drawn on 06/29/2024 is pending -Follow up blood, sputum, and urine cultures were negative #AIDS/HIV Patient has Stage 4 HIV, AIDS-defining illness with opportunistic infection. 06/07/2024 Bronchoalveolar lavage cytology shows Pneumocystis jirovecii. Also other fungi, possibly Kassandra. Kassandra is most likely a contaminant. Blood [id number] also positive. 06/08/2024 HIV quant 5.66 million copies. HIV 1 positive confirmed. 06/09/2024 Patient's decision maker, Francesca, was informed of diagnosis due to critical state of patient. Absolute CD4 count 87 and 22% on 06/02. History/risk factors: History of injection anabolic androgenic steroid and testosterone use, possible unclean needles. History of incarceration (unknown time). Tattoos received as a teenager. Has 1 female sexual partner last 5 years, denies others. -Continue HAART: emtricitabine / tenofovir (Truvada) and raltegravir initiated 06/09/24 -Patient is not aware of his diagnosis as he has been intubated and sedated before results returned. Will require complete education and counseling on the disease if his mental status and clinical condition improves. 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 The patient is being downgraded to telemetry unit for further management of chronic hypoxic respiratory failure s/p tracheostomy. DVT prophylaxis: On heparin drip for treatment of right upper extremity DVT GI prophylaxis: Pantoprazole 40 mg IV qday, discontinued Diet: Tube feeds Ackerman: No, condom cath Lines: Peripheral IV, removed rt femoral central line on 06/28/24 Antibiotics: Bactrim CODE STATUS: DNR/DNI The patient's management plan was discussed with my attending physician MD Jeff Story MD, PGY2
[2024-07-06] MEDS: EMTRICITABINE 200 MG/TENOFOVIR 300 MG TAB (NON-FORM) 1 TAB PO (12:42)
[2024-07-06] MEDS: RALTEGRAVIR 400 MG TABLET NG ×2 (12:44→20:52)
--- NOTE | 2024-07-06 13:17 | ESPR_ITS ---
Subjective Subjective Interval history: additional hiv testing pending. family meeting to decide on comfort care pending Exam Vital Signs Temp Pulse Resp BP Pulse Ox O2 Del Method O2 Flow Rate 99.1 F 66 37 H 93/50 L 97 Mechanical Ventilation 40 07/06/24 08:00 07/06/24 12:11 07/06/24 12:11 07/06/24 11:20 07/06/24 12:11 07/06/24 04:00 06/09/24 12:16 FiO2 45 07/06/24 12:11 Narrative Exam stabilized. afebrile. steroids now bid. ok to slowly wean off. prognosis seems guarded group home Objective - Internal Medicine Labs 07/06/24 05:24 07/06/24 05:24 Labs: Laboratory Results - last 24 hr 07/06/24 07/06/24 04:08 05:24 WBC 4.9 RBC 3.19 L Hgb 7.8 L Hct 25.6 L MCV 80 MCH 24.5 L MCHC 30.5 L RDW Std Deviation 71.3 H Plt Count 314 Neut % (Auto) 81 H Lymph % (Auto) 8 L Tompkins % (Auto) 5 Eos % (Auto) 2 Baso % (Auto) 1 Neut # (Auto) 3.9 Lymph # (Auto) 0.4 L Tompkins # (Auto) 0.3 Eos # (Auto) 0.1 Baso # (Auto) 0.0 Immature Gran # (Auto) 0.13 H Absolute Nucleated RBC 0.00 Immature Gran % 3 H Nucleated RBC % 0 Puncture Site Right Radial ABG pH 7.42 D ABG pCO2 67 H D ABG pO2 64 L D ABG HCO3 43 H ABG O2 Saturation 92 ABG Base Excess 17 H FiO2 45 Sodium 135 L Potassium 4.9 Chloride 95 L Carbon Dioxide 39.8 H Anion Gap 0 L BUN 23 Creatinine 0.6 Estim Creat Clear Calc 150.6 eGFR > 60 BUN/Creatinine Ratio 38 H Glucose 121 H Calculated Osmolality 274 L Calcium 8.2 L Corrected Calcium 9.4 Phosphorus 3.1 Magnesium 2.1 Total Bilirubin 0.2 L AST 209 H ALT 195 H Alkaline Phosphatase 426 H D Total Protein 5.2 L Albumin 2.5 L Globulin 2.7 Albumin/Globulin Ratio 0.9 L Triglycerides 196 H ABG Interpretation ABG results: 05/27/24 05/29/24 05/29/24 23:37 10:44 22:08 ABG pH 7.51 H 7.50 H 7.48 H ABG pCO2 28 L 32 32 ABG pO2 75 L 79 L 145 H D ABG HCO3 23 25 24 ABG O2 Saturation 96 95 98 ABG Base Excess 0 2 1 05/30/24 05/31/24 06/04/24 08:45 04:54 02:10 ABG pH 7.47 H 7.45 7.45 ABG pCO2 35 38 36 ABG pO2 86 D 82 L 139 H ABG HCO3 26 26 25 ABG O2 Saturation 97 96 98 ABG Base Excess 2 2 1 06/04/24 06/05/24 06/05/24 18:16 11:36 12:59 ABG pH 7.44 7.11 L* D 7.20 L ABG pCO2 36 94 H* D 68 H D ABG pO2 80 L D 150 H D 121 H D ABG HCO3 24 30 H 26 ABG O2 Saturation 94 97 97 ABG Base Excess 0 -2 -3 06/05/24 06/06/24 06/06/24 19:25 04:13 15:27 ABG pH 7.22 L 7.27 L 7.30 L ABG pCO2 64 H 57 H 60 H ABG pO2 122 H 153 H D 74 L D ABG HCO3 26 26 29 H ABG O2 Saturation 97 99 H 92 ABG Base Excess -3 -2 2 06/07/24 06/07/24 06/08/24 03:55 09:59 04:20 ABG pH 7.41 D 7.43 7.45 ABG pCO2 56 H 55 H 50 H ABG pO2 293 H D 78 L D 75 L ABG HCO3 36 H 37 H 35 H ABG O2 Saturation 99 H 95 94 ABG Base Excess 10 H 11 H 10 H 06/08/24 06/08/24 06/08/24 11:05 11:50 13:18 ABG pH 7.17 L* D 7.10 L* 7.15 L* ABG pCO2 95 H* D 115 H* D 88 H* D ABG pO2 89 75 L 72 L ABG HCO3 34 H 36 H 31 H ABG O2 Saturation 92 84 L 85 L ABG Base Excess 3 4 H 0 06/08/24 06/09/24 06/09/24 17:02 01:33 03:15 ABG pH 7.18 L* 7.22 L 7.27 L ABG pCO2 50 H D 91 H* D 82 H* ABG pO2 82 L 105 D 86 ABG HCO3 19 L 37 H 38 H ABG O2 Saturation 93 97 95 ABG Base Excess -9 L 7 H 9 H 06/09/24 06/09/24 06/10/24 05:08 12:52 04:40 ABG pH 7.31 L 7.33 L 7.30 L ABG pCO2 75 H* 57 H D 78 H* D ABG pO2 97 158 H D 65 L D ABG HCO3 38 H 30 H 38 H ABG O2 Saturation 97 99 H 90 L ABG Base Excess 10 H 3 9 H 06/10/24 06/11/24 06/12/24 09:40 04:19 04:15 ABG pH 7.27 L 7.35 7.48 H D ABG pCO2 88 H* D 86 H* 63 H D ABG pO2 65 L 70 L 76 L ABG HCO3 40 H 48 H 47 H ABG O2 Saturation 89 L 93 95 ABG Base Excess 10 H 19 H 21 H 06/13/24 06/14/24 06/15/24 07:22 04:32 03:45 ABG pH 7.46 H 7.48 H 7.46 H ABG pCO2 56 H 40 D 37 ABG pO2 80 L 64 L 71 L ABG HCO3 39 H 30 H 27 H ABG O2 Saturation 95 92 94 ABG Base Excess 13 H 6 H 3 06/15/24 06/15/24 06/15/24 10:17 12:20 14:20 ABG pH 7.01 L* D 7.00 L* 7.03 L* ABG pCO2 122 H* D 130 H* 125 H* ABG pO2 91 D 88 82 L ABG HCO3 31 H 32 H 33 H ABG O2 Saturation 88 L 88 L 87 L ABG Base Excess -3 -2 -1 06/15/24 06/15/24 06/16/24 15:55 20:39 00:35 ABG pH 7.03 L* 7.08 L* 7.10 L* ABG pCO2 121 H* 116 H* 118 H* ABG pO2 99 117 H 102 ABG HCO3 32 H 34 H 37 H ABG O2 Saturation 93 97 96 ABG Base Excess -1 2 4 H 11/28/24 11/28/24 11/29/24 04:45 08:55 05:06 ABG pH 7.17 L* 7.28 L D 7.33 L ABG pCO2 112 H* 88 H* D 96 H* ABG pO2 155 H D 98 D 126 H D ABG HCO3 41 H 41 H 50 H ABG O2 Saturation 99 H 98 99 H ABG Base Excess 9 H 12 H 21 H 06/17/24 06/17/24 06/18/24 10:58 13:55 04:16 ABG pH 7.29 L 7.29 L 7.33 L ABG pCO2 106 H* D 106 H* 86 H* D ABG pO2 58 L* D 61 L 77 L ABG HCO3 51 H 51 H 45 H ABG O2 Saturation 87 L 88 L 95 ABG Base Excess 21 H 21 H 17 H 06/19/24 06/20/24 06/21/24 04:18 04:49 04:06 ABG pH 7.42 7.36 7.44 ABG pCO2 63 H D 74 H* D 61 H D ABG pO2 66 L 55 L* 202 H D ABG HCO3 41 H 42 H 42 H ABG O2 Saturation 93 87 L 100 H ABG Base Excess 15 H 14 H 16 H 06/22/24 06/23/24 06/24/24 04:18 04:29 04:25 ABG pH 7.45 7.46 H 7.29 L D ABG pCO2 57 H 53 H 80 H* D ABG pO2 60 L D 99 D 88 ABG HCO3 40 H 38 H 38 H ABG O2 Saturation 91 99 H 96 ABG Base Excess 14 H 13 H 9 H 06/24/24 06/25/24 06/25/24 08:50 05:13 11:02 ABG pH 7.40 D 7.46 H Cancelled ABG pCO2 61 H D 53 H Cancelled ABG pO2 110 H D 66 L D Cancelled ABG HCO3 38 H 38 H Cancelled ABG O2 Saturation 99 H 94 Cancelled ABG Base Excess 12 H 13 H Cancelled 06/25/24 06/26/24 06/26/24 15:53 04:13 11:40 ABG pH 7.39 7.41 7.46 H ABG pCO2 53 H 48 43 ABG pO2 55 L* 58 L* 58 L* ABG HCO3 32 H 30 H 31 H ABG O2 Saturation 86 L 89 L 92 ABG Base Excess 6 H 5 H 6 H 06/27/24 06/28/24 06/28/24 04:17 04:24 06:22 ABG pH 7.48 H 7.27 L D 7.22 L ABG pCO2 39 72 H* D 83 H* D ABG pO2 49 L* 71 L D 82 L ABG HCO3 29 H 33 H 34 H ABG O2 Saturation 87 L 93 95 ABG Base Excess 5 H 5 H 4 H 06/28/24 06/29/24 06/30/24 10:18 04:21 07:57 ABG pH 7.32 L D 7.41 7.41 ABG pCO2 64 H D 63 H 62 H ABG pO2 76 L 81 L 59 L* D ABG HCO3 33 H 40 H 40 H ABG O2 Saturation 95 97 88 L ABG Base Excess 6 H 14 H 13 H 07/02/24 07/03/24 07/04/24 04:05 04:45 04:11 ABG pH 7.46 H 7.43 7.38 ABG pCO2 53 H 58 H 67 H ABG pO2 77 L 100 D 73 L D ABG HCO3 38 H 39 H 40 H ABG O2 Saturation 96 98 94 ABG Base Excess 12 H 13 H 13 H 07/05/24 07/06/24 04:40 04:08 ABG pH 7.30 L 7.42 D ABG pCO2 87 H* D 67 H D ABG pO2 132 H D 64 L D ABG HCO3 43 H 43 H ABG O2 Saturation 99 H 92 ABG Base Excess 14 H 17 H Assessment & Plan A&P Narrative pneumonia.pjp on bal noted. hiv. infection, newly discovered in a heterosexual man. can not r/o ivdu resp failure, hypoxic variable O2 status jo ann, resolved. acute febrile illness. cause uncertain.rx empirical, cx unrevealing rash on rt arm. cause uncertain he has hiv, gf needs to be tested if not done already. ok for hiv rx as ordered. changed bactrim to once daily about 06/29. As noted before, not every one survives, he is only 39, but is newly discovered to have a very bad disease that is easier to manage if caught earlier. ok to maintain steroid rxn. for now. repeat cx noted. ok to be off flucon as cd4 >100 and crypto ag neg. ok to be on hiv rx. will have to notify pt when he is awake. be sure that gf is tested as precaution. fevers may have been due to iris. as cx are neg lft's noted. can be caused by any of a number of factors. trending favorably with normal/neg bili noted. had a blip a few days ago awaiath tests ordered the other day. we usually do not repeat the hiv vl and cd4 for 3 mo after verifying s virus in system. would not treat for cmv, am ok with a biopsy of the rt arm or empiric abx for a week at your discretion. Time Spent With Patient Time: Total time spent is greater than 50% in coordination of care (as documented) at patient's floor/unit and/or counseling patient:
[2024-07-06] MEDS: CALCIUM CARBONATE 600 MG TABLET GT (13:49)
[2024-07-06 14:13] LABS: Partial Thromboplastin Time 34.5 Seconds (22.0-36.0)
[2024-07-06] MEDS: Heparin/D5w 25K 250 ML Ivpb 25,000 UNIT/250 ML BAG 14.3 UNIT IV (14:19)
[2024-07-06 22:11] LABS: Partial Thromboplastin Time 61.8 Seconds (22.0-36.0)
[2024-07-07] VITALS (113 sets, daily range): BP systolic 69–180; BP diastolic 42–101; PULSE 82–155; RESP 0–41; TEMP 36.4–40.1; O2SAT 80–100; BMI 24.5
[2024-07-07] MEDS: DEXMEDETOMIDINE 200 MCG IVPB 200 MCG/50 ML BOTTLE 21.6 MCG IV ×2 (00:06→12:56)
[2024-07-07] MEDS: ALBUTEROL/IPRATROPIUM (Duoneb) RT SOL 3 ML NEBU INH ×4 (00:35→19:52)
[2024-07-07] MEDS: ACETYLCYSTEINE SOL 20% 4 ML NEBU 3 ML INH ×4 (00:35→19:52)
[2024-07-07] MEDS: PROPOFOL 1,000 MG IVPB 1,000 MG/100 ML VIAL 22.5 MG IV ×4 (01:25→22:48)
[2024-07-07] MEDS: fentaNYL 2,500 MCG/250 ML BAG 2,500 MCG/250 ML BAG 30 MCG IV ×3 (03:32→20:15)
[2024-07-07] MEDS: DEXMEDETOMIDINE 200 MCG IVPB 200 MCG/50 ML BOTTLE 7.2 MCG IV ×2 (03:33→08:49)
--- NOTE | 2024-07-07 05:00 | XR_ITS ---
Examination: AP chest single view Technique one AP portable semiupright chest single view Exam date and time: July 07, 2024 0527 hrs. Comparison July 04, 2024 and earlier chest films dating to June 28, 2024 Indications: History hypoxic respiratory failure, pneumonia ARDS Findings: No change in severe bilateral lung opacity Tracheostomy tube tip 4.4 cm above sunil Normal heart size Intact osseous structures Impression: Stable severe bilateral lung opacity, pneumonia ARDS pattern
[2024-07-07] MEDS: clonazePAM 0.5 MG TABLET 2 MG PO ×3 (05:23→21:06)
[2024-07-07] MEDS: Artificial Tears 225 DROP/15 ML BTL BOTH EYES ×4 (05:24→21:07)
[2024-07-07 05:45] LABS: Basophils % (Auto) 0 % (0-2.5); Eosinophils # (Auto) 0.1 Thou/mm3 (0.0-0.5); Eosinophils % (Auto) 1 % (0-10); Hematocrit 25.2 % (41.0-53.0); Immature Granulocytes % (Auto) 3 % (0-0); Immature Granulocytes Auto 0.16 Thou/mm3 (0.00-0.00); Lymphocytes # (Auto) 0.6 Thou/mm3 (1.0-4.8); Lymphocytes % (Auto) 12 % (10-50); Mean Corpuscular HGB Conc 29.8 g/dl (31.0-37.0); Mean Corpuscular Hemoglobin 24.8 pg (25.0-35.0); Mean Corpuscular Volume 83 fL (80-100); Monocytes # (Auto) 0.4 Thou/mm3 (0.0-0.8); Monocytes % (Auto) 8 % (0-12); Neutrophils # (Auto) 3.5 Thou/mm3 (1.8-7.7); Neutrophils % (Auto) 75 % (37-80); Nucleated Red Blood Cell # 0.02 Thou/mm3 (0.00-0.00); Nucleated Red Blood Cell % 0 /100 WBC (0); Platelet Count 278 Thou/mm3 (140-440); RDW Standard Deviation 75.2 fL (35.1-43.9); Red Blood Count 3.03 Miln/mm3 (4.50-5.90); White Blood Count 4.7 Thou/mm3 (3.8-10.6)
[2024-07-07] MEDS: PROPOFOL 1,000 MG IVPB 1,000 MG/100 ML VIAL 20.25 MG IV (05:52)
[2024-07-07 05:53] LABS: Hemoglobin 7.5 g/dL (13.5-16.0)
[2024-07-07 06:36] LABS: Magnesium 2.1 mg/dL (1.6-2.6); Phosphorous 3.5 mg/dL (2.4-5.1)
[2024-07-07 07:25] LABS: Partial Thromboplastin Time 55.1 Seconds (22.0-36.0)
[2024-07-07] MEDS: Heparin/D5w 25K 250 ML Ivpb 25,000 UNIT/250 ML BAG 14.3 UNIT IV (07:39)
[2024-07-07 08:42] LABS: Alanine Aminotransferase 189 U/L (10-49); Albumin, Serum 2.2 gm/dL (3.5-5.0); Albumin/Globulin Ratio 0.9 (1.2-2.2); Alkaline Phosphatase 394 U/L (46-116); Anion Gap 4 (7-16); Aspartate Amino Transferase 187 U/L (0-34); BUN/Creatinine Ratio 42 Ratio (12-20); Bilirubin,Total < 0.2 mg/dL (0.3-1.2); Blood Urea Nitrogen 21 mg/dL (9-23); Calcium 8.1 mg/dL (8.3-10.6); Calcium (Corrected) 9.5 mg/dL (8.5-10.1); Carbon Dioxide 39.2 mMol/L (20.0-31.0); Chloride 96 mMol/L (98-107); Creatinine (Component) 0.5 mg/dL (0.6-1.3); Estimated Creatinine Clearance 180.8 mL/min (>60); Globulin 2.5 gm/dL (2.3-3.5); Glucose 125 mg/dL (74-106); Osmolality,Calculated 281 (275-295); Potassium 5.2 mMol/L (3.4-5.1); Sodium 139 mMol/L (136-145); Total Protein 4.7 gm/dL (5.7-8.2); eGFR > 60 See Note
[2024-07-07] MEDS: EMTRICITABINE 200 MG/TENOFOVIR 300 MG TAB (NON-FORM) 1 TAB PO (09:01)
[2024-07-07] MEDS: RALTEGRAVIR 400 MG TABLET NG ×2 (09:02→21:06)
[2024-07-07] MEDS: QUEtiapine FUMARATE 100 MG TABLET PO ×2 (09:02→21:06)
[2024-07-07] MEDS: Ferrous Sulfate 300 MG/5 ML UDC GT (09:02)
[2024-07-07] MEDS: TRIMETHOPRIM PO (09:03)
[2024-07-07] MEDS: SULFAMETHOXAZOLE PO (09:03)
[2024-07-07] MEDS: PANTOPRAZOLE INJ 40 MG VIAL IV (10:19)
[2024-07-07] MEDS: PHENOBARBITAL ELIX 20 MG/5 ML 90 MG GT ×3 (10:19→21:06)
[2024-07-07] MEDS: MIDAZOLAM INJ 1 MG/ML VIAL 2 ML 2 MG IV (11:08)
[2024-07-07 12:28] LABS: Basophils % (Auto) 0 % (0-2.5); Eosinophils # (Auto) 0.1 Thou/mm3 (0.0-0.5); Eosinophils % (Auto) 2 % (0-10); Hematocrit 27.8 % (41.0-53.0); Immature Granulocytes % (Auto) 3 % (0-0); Immature Granulocytes Auto 0.24 Thou/mm3 (0.00-0.00); Lymphocytes # (Auto) 0.6 Thou/mm3 (1.0-4.8); Lymphocytes % (Auto) 8 % (10-50); Mean Corpuscular HGB Conc 30.2 g/dl (31.0-37.0); Mean Corpuscular Hemoglobin 24.6 pg (25.0-35.0); Mean Corpuscular Volume 82 fL (80-100); Monocytes # (Auto) 0.5 Thou/mm3 (0.0-0.8); Monocytes % (Auto) 6 % (0-12); Neutrophils # (Auto) 5.9 Thou/mm3 (1.8-7.7); Neutrophils % (Auto) 81 % (37-80); Nucleated Red Blood Cell # 0.03 Thou/mm3 (0.00-0.00); Nucleated Red Blood Cell % 0 /100 WBC (0); Platelet Count 341 Thou/mm3 (140-440); RDW Standard Deviation 73.6 fL (35.1-43.9); Red Blood Count 3.41 Miln/mm3 (4.50-5.90); White Blood Count 7.4 Thou/mm3 (3.8-10.6)
[2024-07-07 12:39] LABS: Hemoglobin 8.4 g/dL (13.5-16.0)
[2024-07-07 12:42] LABS: Partial Thromboplastin Time 48.7 Seconds (22.0-36.0)
[2024-07-07 12:49] LABS: Alanine Aminotransferase 285 U/L (10-49); Albumin, Serum 2.4 gm/dL (3.5-5.0); Albumin/Globulin Ratio 0.9 (1.2-2.2); Alkaline Phosphatase 508 U/L (46-116); Anion Gap 4 (7-16); Aspartate Amino Transferase 324 U/L (0-34); BUN/Creatinine Ratio 36 Ratio (12-20); Bilirubin,Total 0.2 mg/dL (0.3-1.2); Blood Urea Nitrogen 18 mg/dL (9-23); Calcium 8.3 mg/dL (8.3-10.6); Calcium (Corrected) 9.6 mg/dL (8.5-10.1); Carbon Dioxide 37.2 mMol/L (20.0-31.0); Chloride 96 mMol/L (98-107); Creatinine (Component) 0.5 mg/dL (0.6-1.3); Estimated Creatinine Clearance 180.8 mL/min (>60); Globulin 2.8 gm/dL (2.3-3.5); Glucose 96 mg/dL (74-106); Osmolality,Calculated 275 (275-295); Potassium 4.7 mMol/L (3.4-5.1); Sodium 137 mMol/L (136-145); Total Protein 5.2 gm/dL (5.7-8.2); eGFR > 60 See Note
[2024-07-07] MEDS: MIDAZOLAM INJ 1 MG/ML VIAL 2 ML 4 MG IV ×2 (12:58→19:34)
[2024-07-07] MEDS: ACETAMINOPHEN SOL 325 MG/10 ML UDC 650 MG GT (13:12)
[2024-07-07] MEDS: CALCIUM CARBONATE 600 MG TABLET GT (13:17)
[2024-07-07] MEDS: MORPHINE SULF LIQD 10 MG/5 ML UDC 15 MG PO ×2 (13:17→21:06)
[2024-07-07] MEDS: DESMOPRESSIN ACETATE 4 MCG/ML VIAL 1 MCG IV (13:25)
--- NOTE | 2024-07-07 13:31 | ESPR_ITS ---
<Statement entered by Emely Price MD - 07/08/24 13:44> TOTAL CC TIME:45 MIN I saw and evaluated the patient. I reviewed the resident?s note and agree with findings and plan as documented in the resident?s note. Upon my evaluation, this patient had a high probability of imminent or life- threatening deterioration due to acute hypoxic respiratory failure which required my direct attention, intervention, and personal management. This time is exclusive of time spent on procedures, which are documented separately if performed. Patient had an high fevers severe tachycardia tachypnea and polyuria. All of this is concerning for intracranial hypertension. Opportunistic infections are a concern. He was too unstable to transfer for CT or MRI brain imaging. Pupils remained 2 to 3 mm and symmetric without any changes. Patient remains on sedation but the prior night of sedation was weaned and some of this may have been an acute withdrawal phenomenon although it seems out of proportion to just withdrawal given that he was still on sedation but at lower doses. 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 Family was understanding that his prognosis remained poor. With increase sedation however his condition did improve including oxygenation and the severity of his hypersympathetic manifestations. I also reviewed idiosyncratic reactions to medications and this seems to be unlikely. Davey culture was repeated. Documentation for date of: 07/07/24 Subjective Subjective Interval history: 07/03/2024: Patient seen and examined at bedside. Patient is mildly tachycardic, 100-110, sinus tachy. Patient has produced good urinary output. Patient remains on levophed, midodrine added for additional BP support.AST/ALT continues to trend down following phenobarbital discontinuation. Patient continues to have breath stacking despite sedation. Mucomist and duonebs added due to copious secretions. 07/04/2024: The patient was examined and evaluated at the bedside this morning. He was tachycardic with heart rate ranging from 110s to 120, saturating 92 to 94% with tidal volume 450 cc. Overnight event was significant for severe cough spell that started this morning, and his saturation trended down to 70s, when manual bagging was done for ventilation and patient also required addition of propofol, midazolam 2 mg IV x 1 and IV rocuronium 30 Mg x 1. The patient's lung compliance was severely worsened, and was placed on tidal volume of 400. We will allow permissive hypercapnia at this time. We will repeat influenza and COVID test, as there could be possibility of transmission in the setting of multiple patients visiting him daily. There is a possibility of 0 in the setting of immunocompromised state, but the patient is unstable to get CT scan at this point. We cannot proceed with proning position as the patient is ventilating through tracheostomy tube. 07/05/2024: The patient was examined and evaluated at the bedside this morning. His heart rate has been in the range of 100-110. Overnight, around this morning the patient again had another spell of intractable coughing episodes, and required bag and mask ventilation. Patient was given 2 mg IV midazolam, and that subsided he is coughing spells. We will continue to trend down FiO2 as tolerated. Ordered galactomannan test to rule out any aspergillosis, as and influenza test done yesterday came back negative. We will stop Neutra-Phos today, and continue to monitor electrolytes. 07/06/2024: The patient was examined and evaluated at the bedside this morning. His heart rate was in 80s to 90s, that later trended down to 59 as lowest and again went up in the 70s. The patient was saturating greater than 88% on FiO2 45%, but later started desaturating to 82 to 83%, and FiO2 was increased to 60%. We stopped metoprolol to tartrate 25 Mg twice daily. Electrolytes are stable, mild elevation in liver enzymes continues. 07/07/24: The patient was evaluated and examined at the bedside this morning again. His heart rate was in the range of 110-130s, and his oxygen saturation was between 87-90, in 60%. Later, the patient started desaturating in 80s, and was given propofol push followed by midazolam push to control excessive work of breathing and tachycardia. The patient was also shivering and given the possibility of an infection, blood, urine and sputum cultures were ordered. 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 CT head was considered but given he is on a stable condition we will defer until his condition improves. He was also added on oral liquid morphine 15 Mg 3 times daily. The patient's recent condition was updated to the family members who presented later at bedside. Exam Vital Signs Temp Pulse Resp BP Pulse Ox O2 Del Method O2 Flow Rate 104.2 F H 152 H 38 H 150/73 H 93 L Mechanical Ventilation 40 07/07/24 13:12 07/07/24 12:39 07/07/24 12:39 07/07/24 12:15 07/07/24 12:39 07/07/24 04:00 06/09/24 12:16 FiO2 100 07/07/24 12:39 Narrative Exam GEN: Critically ill, not acutely distressed, sedated and mechanically ventilated. Neuro: Deferred due to sedation. HEENT: NCAT, tracheostomy tube on appropriate position, mild abrasion over lower lips, improving. CVS: Mildly tachycardic, no M/R/G. No JVD Respi: Mechanically ventilated, b/l breath sounds heard, significant rhonchi in all lung rosas, tachypnea with breath stacking, increased use of accessory muscles ABD: Soft, no grimace to palpation, bowel sounds present in all 4 quadrants, PEG tube in appropriate place Skin: warm, dry and intact. Extremities: Pulses 2+ in all extremities, bilateral upper and lower extremity edema, ruptured vesicles 1-2 cm on the rt forearm surface that have been healing. Objective Labs 07/07/24 12:18 07/07/24 12:18 Labs: Laboratory Results - last 24 hr 07/06/24 07/06/24 07/07/24 13:04 21:00 04:55 WBC 4.7 RBC 3.03 L Hgb 7.5 L Hct 25.2 L MCV 83 MCH 24.8 L MCHC 29.8 L RDW Std Deviation 75.2 H Plt Count 278 D Neut % (Auto) 75 Lymph % (Auto) 12 Riley % (Auto) 8 Eos % (Auto) 1 Baso % (Auto) 0 Neut # (Auto) 3.5 Lymph # (Auto) 0.6 L Riley # (Auto) 0.4 Eos # (Auto) 0.1 Baso # (Auto) 0.0 Immature Gran # (Auto) 0.16 H Absolute Nucleated RBC 0.02 H Immature Gran % 3 H Nucleated RBC % 0 APTT 34.5 D 61.8 H D 55.1 H Sodium Cancelled Potassium Chloride Carbon Dioxide Anion Gap BUN Creatinine Estim Creat Clear Calc eGFR BUN/Creatinine Ratio Glucose Calculated Osmolality Calcium Corrected Calcium Phosphorus Magnesium Total Bilirubin AST ALT Alkaline Phosphatase Total Protein Albumin Globulin Albumin/Globulin Ratio 07/07/24 07/07/24 07/07/24 04:55 04:55 04:55 WBC RBC Hgb Hct MCV MCH MCHC RDW Std Deviation Plt Count Neut % (Auto) Lymph % (Auto) Riley % (Auto) Eos % (Auto) Baso % (Auto) Neut # (Auto) Lymph # (Auto) Riley # (Auto) Eos # (Auto) Baso # (Auto) Immature Gran # (Auto) Absolute Nucleated RBC Immature Gran % Nucleated RBC % APTT Sodium 139 Potassium Cancelled 5.2 H Chloride Cancelled 96 L Carbon Dioxide Cancelled Anion Gap BUN Creatinine Estim Creat Clear Calc eGFR BUN/Creatinine Ratio Glucose Calculated Osmolality Calcium Corrected Calcium Phosphorus Magnesium Total Bilirubin AST ALT Alkaline Phosphatase Total Protein Albumin Globulin Albumin/Globulin Ratio 07/07/24 07/07/24 07/07/24 04:55 04:55 04:55 WBC RBC Hgb Hct MCV MCH MCHC RDW Std Deviation Plt Count Neut % (Auto) Lymph % (Auto) Riley % (Auto) Eos % (Auto) Baso % (Auto) Neut # (Auto) Lymph # (Auto) Riley # (Auto) Eos # (Auto) Baso # (Auto) Immature Gran # (Auto) Absolute Nucleated RBC Immature Gran % Nucleated RBC % APTT Sodium Potassium Chloride Carbon Dioxide 39.2 H Anion Gap Cancelled 4 L BUN Cancelled 21 Creatinine Cancelled Estim Creat Clear Calc eGFR BUN/Creatinine Ratio Glucose Calculated Osmolality Calcium Corrected Calcium Phosphorus Magnesium Total Bilirubin AST ALT Alkaline Phosphatase Total Protein Albumin Globulin Albumin/Globulin Ratio 07/07/24 07/07/24 07/07/24 04:55 04:55 04:55 WBC RBC Hgb Hct MCV MCH MCHC RDW Std Deviation Plt Count Neut % (Auto) Lymph % (Auto) Riley % (Auto) Eos % (Auto) Baso % (Auto) Neut # (Auto) Lymph # (Auto) Riley # (Auto) Eos # (Auto) Baso # (Auto) Immature Gran # (Auto) Absolute Nucleated RBC Immature Gran % Nucleated RBC % APTT Sodium Potassium Chloride Carbon Dioxide Anion Gap BUN Creatinine 0.5 L Estim Creat Clear Calc Cancelled 180.8 eGFR Cancelled > 60 BUN/Creatinine Ratio Cancelled Glucose Calculated Osmolality Calcium Corrected Calcium Phosphorus Magnesium Total Bilirubin AST ALT Alkaline Phosphatase Total Protein Albumin Globulin Albumin/Globulin Ratio 07/07/24 07/07/24 07/07/24 04:55 04:55 04:55 WBC RBC Hgb Hct MCV MCH MCHC RDW Std Deviation Plt Count Neut % (Auto) Lymph % (Auto) Riley % (Auto) Eos % (Auto) Baso % (Auto) Neut # (Auto) Lymph # (Auto) Riley # (Auto) Eos # (Auto) Baso # (Auto) Immature Gran # (Auto) Absolute Nucleated RBC Immature Gran % Nucleated RBC % APTT Sodium Potassium Chloride Carbon Dioxide Anion Gap BUN Creatinine Estim Creat Clear Calc eGFR BUN/Creatinine Ratio 42 H Glucose Cancelled 125 H Calculated Osmolality Cancelled 281 Calcium Cancelled Corrected Calcium Phosphorus Magnesium Total Bilirubin AST ALT Alkaline Phosphatase Total Protein Albumin Globulin Albumin/Globulin Ratio 07/07/24 07/07/24 07/07/24 04:55 04:55 04:55 WBC RBC Hgb Hct MCV MCH MCHC RDW Std Deviation Plt Count Neut % (Auto) Lymph % (Auto) Riley % (Auto) Eos % (Auto) Baso % (Auto) Neut # (Auto) Lymph # (Auto) Riley # (Auto) Eos # (Auto) Baso # (Auto) Immature Gran # (Auto) Absolute Nucleated RBC Immature Gran % Nucleated RBC % APTT Sodium Potassium Chloride Carbon Dioxide Anion Gap BUN Creatinine Estim Creat Clear Calc eGFR BUN/Creatinine Ratio Glucose Calculated Osmolality Calcium 8.1 L Corrected Calcium Cancelled 9.5 Phosphorus 3.5 Magnesium 2.1 Total Bilirubin Cancelled < 0.2 L AST Cancelled ALT Alkaline Phosphatase Total Protein Albumin Globulin Albumin/Globulin Ratio 07/07/24 07/07/24 07/07/24 04:55 04:55 04:55 WBC RBC Hgb Hct MCV MCH MCHC RDW Std Deviation Plt Count Neut % (Auto) Lymph % (Auto) Riley % (Auto) Eos % (Auto) Baso % (Auto) Neut # (Auto) Lymph # (Auto) Riley # (Auto) Eos # (Auto) Baso # (Auto) Immature Gran # (Auto) Absolute Nucleated RBC Immature Gran % Nucleated RBC % APTT Sodium Potassium Chloride Carbon Dioxide Anion Gap BUN Creatinine Estim Creat Clear Calc eGFR BUN/Creatinine Ratio Glucose Calculated Osmolality Calcium Corrected Calcium Phosphorus Magnesium Total Bilirubin AST 187 H ALT Cancelled 189 H Alkaline Phosphatase Cancelled 394 H D Total Protein Cancelled Albumin Globulin Albumin/Globulin Ratio 07/07/24 07/07/24 07/07/24 04:55 04:55 04:55 WBC RBC Hgb Hct MCV MCH MCHC RDW Std Deviation Plt Count Neut % (Auto) Lymph % (Auto) Riley % (Auto) Eos % (Auto) Baso % (Auto) Neut # (Auto) Lymph # (Auto) Riley # (Auto) Eos # (Auto) Baso # (Auto) Immature Gran # (Auto) Absolute Nucleated RBC Immature Gran % Nucleated RBC % APTT Sodium Potassium Chloride Carbon Dioxide Anion Gap BUN Creatinine Estim Creat Clear Calc eGFR BUN/Creatinine Ratio Glucose Calculated Osmolality Calcium Corrected Calcium Phosphorus Magnesium Total Bilirubin AST ALT Alkaline Phosphatase Total Protein 4.7 L Albumin Cancelled 2.2 L Globulin Cancelled 2.5 Albumin/Globulin Ratio Cancelled 07/07/24 07/07/24 04:55 12:18 WBC 7.4 D RBC 3.41 L Hgb 8.4 L Hct 27.8 L MCV 82 MCH 24.6 L MCHC 30.2 L RDW Std Deviation 73.6 H Plt Count 341 D Neut % (Auto) 81 H Lymph % (Auto) 8 L Riley % (Auto) 6 Eos % (Auto) 2 Baso % (Auto) 0 Neut # (Auto) 5.9 Lymph # (Auto) 0.6 L Riley # (Auto) 0.5 Eos # (Auto) 0.1 Baso # (Auto) 0.0 Immature Gran # (Auto) 0.24 H Absolute Nucleated RBC 0.03 H Immature Gran % 3 H Nucleated RBC % 0 APTT 48.7 H Sodium 137 Potassium 4.7 D Chloride 96 L Carbon Dioxide 37.2 H Anion Gap 4 L BUN 18 Creatinine 0.5 L Estim Creat Clear Calc 180.8 eGFR > 60 BUN/Creatinine Ratio 36 H Glucose 96 Calculated Osmolality 275 Calcium 8.3 Corrected Calcium 9.6 Phosphorus Magnesium Total Bilirubin 0.2 L AST 324 H ALT 285 H Alkaline Phosphatase 508 H D Total Protein 5.2 L Albumin 2.4 L Globulin 2.8 Albumin/Globulin Ratio 0.9 L 0.9 L ABG Interpretation ABG results: 05/27/24 05/29/24 05/29/24 23:37 10:44 22:08 ABG pH 7.51 H 7.50 H 7.48 H ABG pCO2 28 L 32 32 ABG pO2 75 L 79 L 145 H D ABG HCO3 23 25 24 ABG O2 Saturation 96 95 98 ABG Base Excess 0 2 1 05/30/24 05/31/24 06/04/24 08:45 04:54 02:10 ABG pH 7.47 H 7.45 7.45 ABG pCO2 35 38 36 ABG pO2 86 D 82 L 139 H ABG HCO3 26 26 25 ABG O2 Saturation 97 96 98 ABG Base Excess 2 2 1 06/04/24 06/05/24 06/05/24 18:16 11:36 12:59 ABG pH 7.44 7.11 L* D 7.20 L ABG pCO2 36 94 H* D 68 H D ABG pO2 80 L D 150 H D 121 H D ABG HCO3 24 30 H 26 ABG O2 Saturation 94 97 97 ABG Base Excess 0 -2 -3 06/05/24 06/06/24 06/06/24 19:25 04:13 15:27 ABG pH 7.22 L 7.27 L 7.30 L ABG pCO2 64 H 57 H 60 H ABG pO2 122 H 153 H D 74 L D ABG HCO3 26 26 29 H ABG O2 Saturation 97 99 H 92 ABG Base Excess -3 -2 2 06/07/24 06/07/24 06/08/24 03:55 09:59 04:20 ABG pH 7.41 D 7.43 7.45 ABG pCO2 56 H 55 H 50 H ABG pO2 293 H D 78 L D 75 L ABG HCO3 36 H 37 H 35 H ABG O2 Saturation 99 H 95 94 ABG Base Excess 10 H 11 H 10 H 06/08/24 06/08/24 06/08/24 11:05 11:50 13:18 ABG pH 7.17 L* D 7.10 L* 7.15 L* ABG pCO2 95 H* D 115 H* D 88 H* D ABG pO2 89 75 L 72 L ABG HCO3 34 H 36 H 31 H ABG O2 Saturation 92 84 L 85 L ABG Base Excess 3 4 H 0 06/08/24 06/09/24 06/09/24 17:02 01:33 03:15 ABG pH 7.18 L* 7.22 L 7.27 L ABG pCO2 50 H D 91 H* D 82 H* ABG pO2 82 L 105 D 86 ABG HCO3 19 L 37 H 38 H ABG O2 Saturation 93 97 95 ABG Base Excess -9 L 7 H 9 H 06/09/24 06/09/24 06/10/24 05:08 12:52 04:40 ABG pH 7.31 L 7.33 L 7.30 L ABG pCO2 75 H* 57 H D 78 H* D ABG pO2 97 158 H D 65 L D ABG HCO3 38 H 30 H 38 H ABG O2 Saturation 97 99 H 90 L ABG Base Excess 10 H 3 9 H 06/10/24 06/11/24 06/12/24 09:40 04:19 04:15 ABG pH 7.27 L 7.35 7.48 H D ABG pCO2 88 H* D 86 H* 63 H D ABG pO2 65 L 70 L 76 L ABG HCO3 40 H 48 H 47 H ABG O2 Saturation 89 L 93 95 ABG Base Excess 10 H 19 H 21 H 06/13/24 06/14/24 06/15/24 07:22 04:32 03:45 ABG pH 7.46 H 7.48 H 7.46 H ABG pCO2 56 H 40 D 37 ABG pO2 80 L 64 L 71 L ABG HCO3 39 H 30 H 27 H ABG O2 Saturation 95 92 94 ABG Base Excess 13 H 6 H 3 06/15/24 06/15/24 06/15/24 10:17 12:20 14:20 ABG pH 7.01 L* D 7.00 L* 7.03 L* ABG pCO2 122 H* D 130 H* 125 H* ABG pO2 91 D 88 82 L ABG HCO3 31 H 32 H 33 H ABG O2 Saturation 88 L 88 L 87 L ABG Base Excess -3 -2 -1 06/15/24 06/15/24 06/16/24 15:55 20:39 00:35 ABG pH 7.03 L* 7.08 L* 7.10 L* ABG pCO2 121 H* 116 H* 118 H* ABG pO2 99 117 H 102 ABG HCO3 32 H 34 H 37 H ABG O2 Saturation 93 97 96 ABG Base Excess -1 2 4 H 06/16/24 06/16/24 06/17/24 04:45 08:55 05:06 ABG pH 7.17 L* 7.28 L D 7.33 L ABG pCO2 112 H* 88 H* D 96 H* ABG pO2 155 H D 98 D 126 H D ABG HCO3 41 H 41 H 50 H ABG O2 Saturation 99 H 98 99 H ABG Base Excess 9 H 12 H 21 H 06/17/24 06/17/24 06/18/24 10:58 13:55 04:16 ABG pH 7.29 L 7.29 L 7.33 L ABG pCO2 106 H* D 106 H* 86 H* D ABG pO2 58 L* D 61 L 77 L ABG HCO3 51 H 51 H 45 H ABG O2 Saturation 87 L 88 L 95 ABG Base Excess 21 H 21 H 17 H 06/19/24 06/20/24 06/21/24 04:18 04:49 04:06 ABG pH 7.42 7.36 7.44 ABG pCO2 63 H D 74 H* D 61 H D ABG pO2 66 L 55 L* 202 H D ABG HCO3 41 H 42 H 42 H ABG O2 Saturation 93 87 L 100 H ABG Base Excess 15 H 14 H 16 H 06/22/24 06/23/24 06/24/24 04:18 04:29 04:25 ABG pH 7.45 7.46 H 7.29 L D ABG pCO2 57 H 53 H 80 H* D ABG pO2 60 L D 99 D 88 ABG HCO3 40 H 38 H 38 H ABG O2 Saturation 91 99 H 96 ABG Base Excess 14 H 13 H 9 H 06/24/24 06/25/24 06/25/24 08:50 05:13 11:02 ABG pH 7.40 D 7.46 H Cancelled ABG pCO2 61 H D 53 H Cancelled ABG pO2 110 H D 66 L D Cancelled ABG HCO3 38 H 38 H Cancelled ABG O2 Saturation 99 H 94 Cancelled ABG Base Excess 12 H 13 H Cancelled 06/25/24 06/26/24 06/26/24 15:53 04:13 11:40 ABG pH 7.39 7.41 7.46 H ABG pCO2 53 H 48 43 ABG pO2 55 L* 58 L* 58 L* ABG HCO3 32 H 30 H 31 H ABG O2 Saturation 86 L 89 L 92 ABG Base Excess 6 H 5 H 6 H 12/09/24 12/10/24 12/10/24 04:17 04:24 06:22 ABG pH 7.48 H 7.27 L D 7.22 L ABG pCO2 39 72 H* D 83 H* D ABG pO2 49 L* 71 L D 82 L ABG HCO3 29 H 33 H 34 H ABG O2 Saturation 87 L 93 95 ABG Base Excess 5 H 5 H 4 H 06/28/24 06/29/24 06/30/24 10:18 04:21 07:57 ABG pH 7.32 L D 7.41 7.41 ABG pCO2 64 H D 63 H 62 H ABG pO2 76 L 81 L 59 L* D ABG HCO3 33 H 40 H 40 H ABG O2 Saturation 95 97 88 L ABG Base Excess 6 H 14 H 13 H 07/02/24 07/03/24 07/04/24 04:05 04:45 04:11 ABG pH 7.46 H 7.43 7.38 ABG pCO2 53 H 58 H 67 H ABG pO2 77 L 100 D 73 L D ABG HCO3 38 H 39 H 40 H ABG O2 Saturation 96 98 94 ABG Base Excess 12 H 13 H 13 H 07/05/24 07/06/24 04:40 04:08 ABG pH 7.30 L 7.42 D ABG pCO2 87 H* D 67 H D ABG pO2 132 H D 64 L D ABG HCO3 43 H 43 H ABG O2 Saturation 99 H 92 ABG Base Excess 14 H 17 H Quality Measures Quality Measures sepsis Current suspected stage: ruled out Possible source: pulmonary, GI tract/intra-abdominal, genitourinary and skin/soft tissue Blood cultures ordered: yes Antibiotic ordered: Yes Assessment & Plan Assessment Current Active Medications: Generic Name Dose Route Start Last Admin Trade Name Freq PRN Reason Stop Dose Admin Acetaminophen 650 mg 06/26/24 15:16 07/07/24 13:12 Acetaminophen Munira 325 Mg/10 Ml Udc GT 07/26/24 15:15 650 mg Q4HR PRN Administration Pain Or Fever > 100.3 Acetylcysteine 3 ml 07/03/24 13:00 07/07/24 12:38 Acetylcysteine Munira 20% 4 Ml Nebu INH 08/02/24 12:59 3 ml Q6HRRT JUAN JOSE Administration Albuterol/Ipratropium 3 ml 07/03/24 13:00 07/07/24 12:38 Albuterol/Ipratropium (Duoneb) Rt Munira 3 Ml Nebu INH 08/02/24 12:59 3 ml Q6HRRT JUAN JOSE Administration Artificial Tears 1 drop 06/18/24 12:00 07/07/24 12:14 Artificial Tears 225 Drop/15 Ml Btl BOTH EYES 07/18/24 11:59 1 drop QID JUAN JOSE Administration Calcium Carbonate 600 mg 06/28/24 13:00 07/07/24 13:17 Calcium Carbonate 600 Mg Tablet GT 07/28/24 12:59 600 mg QDAY@1300 JUAN JOSE Administration Clonazepam 2 mg 06/28/24 08:45 07/07/24 13:16 Clonazepam 0.5 Mg Tablet PO 07/19/24 08:44 2 mg TID JUAN JOSE Administration Docusate Sodium 100 mg 06/25/24 09:13 Docusate Sod Liqd 100 Mg/10 Ml Udc PO 07/22/24 08:59 BID PRN Constipation Protocol Docusate Sodium 250 mg 07/02/24 10:00 07/02/24 20:13 Docusate Sod Liqd 100 Mg/10 Ml Udc GT 07/31/24 09:14 250 mg BID JUAN JOSE Administration Protocol Emtricitabine/Tenofovir 1 tab 07/06/24 11:30 07/07/24 09:01 Emtricitabine 200 Mg/Tenofovir 300 Mg Tab (Non-Form) PO 07/13/24 11:29 1 tab QDAY JUAN JOSE Administration Ferrous Sulfate 300 mg 07/02/24 10:00 07/07/24 09:02 Ferrous Sulfate 300 Mg/5 Ml Udc GT 07/23/24 09:59 300 mg QDAY JUAN JOSE Administration Norepinephrine/Dextrose 8 mg in 250 mls @ 6.319 mls/hr 06/30/24 04:17 07/07/24 01:00 Levophed In D5w 8mg/250ml IV 07/30/24 04:16 0 mcg/kg/min .Q24H PRN 0 mls/hr PER PROTOCOL Titration Protocol 0.05 MCG/KG/MIN Propofol 1,000 mg in 100 mls @ 2.25 mls/hr 07/04/24 06:39 07/07/24 11:05 Diprivan Ivpb IV 08/03/24 06:38 50 mcg/kg/min .Q24H PRN 22.5 mls/hr PER PROTOCOL Administration Protocol 5 MCG/KG/MIN Dexmedetomidine/Sodium Chloride 200 mcg in 50 mls @ 3.6 mls/hr 07/04/24 06:59 07/07/24 11:00 Precedex Ivpb IV 08/01/24 00:16 0.8 mcg/kg/hr .[id number] PRN 14.4 mls/hr Per PROTOCOL Titration Protocol 0.2 MCG/KG/HR Fentanyl Citrate 2,500 mcg in 250 mls @ 2.5 mls/hr 07/05/24 14:45 07/07/24 11:05 Sublimaze Inj 2,500 Mcg/250 Ml Bag IV 08/15/24 14:44 300 mcg/hr .Q24H PRN 30 mls/hr PER PROTOCOL Administration Protocol 25 MCG/HR Heparin Sodium/Dextrose 25,000 unit in 250 mls @ 12.87 mls/hr 07/06/24 13:45 07/07/24 07:39 Heparin In D5w Ivpb IV 07/20/24 13:44 20 units/kg/hr .[id number] JUAN JOSE 14.3 mls/hr Administration Protocol 18 UNITS/KG/HR Methylprednisolone Sodium Succinate 40 mg 07/06/24 21:00 07/07/24 09:02 Methylprednisolone Sod Succ 40 Mg Vial IVP 07/13/24 20:59 40 mg BID JUAN JOSE Administration Midazolam HCl 4 mg 07/07/24 11:02 07/07/24 12:58 Midazolam Inj 1 Mg/Ml Vial 2 Ml IV 07/12/24 11:01 4 mg Q3HR PRN Administration Severe agitation, tachycardia, Morphine Sulfate 15 mg 07/07/24 14:00 07/07/24 13:17 Morphine Sulf Liqd 10 Mg/5 Ml Udc PO 07/12/24 13:59 15 mg TID JUAN JOSE Administration Pantoprazole Sodium 40 mg 07/07/24 09:32 07/07/24 10:19 Pantoprazole Inj 40 Mg Vial IV 08/06/24 09:31 40 mg QDAY JUAN JOSE Administration Phenobarbital 90 mg 07/07/24 10:15 07/07/24 10:19 Phenobarbital Elix 20 Mg/5 Ml Udc GT 07/21/24 10:14 90 mg TID JUAN JOSE Administration Quetiapine Fumarate 100 mg 06/28/24 21:00 07/07/24 09:02 Quetiapine Fumarate 100 Mg Tablet PO 07/25/24 20:59 100 mg BID JUAN JOSE Administration Raltegravir 400 mg 07/06/24 11:30 07/07/24 09:02 Raltegravir 400 Mg Tablet NG 07/13/24 11:29 400 mg BID JUAN JOSE Administration Trimethoprim/Sulfamethoxazole 20 ml 06/23/24 09:00 07/07/24 09:03 Trimethoprim/Sulfa Susp 1 Ml PO 06/22/25 12:00 20 ml QDAY JUAN JOSE Administration Plan 39-year-old male patient with no PMHx who initially presented to [facility] on 05/27/2024 with a chief complaint of shortness of breath and cough, with associated chills, body aches, generalized weakness, fever, and night sweats beginning weeks prior but progressively worsening over a few days is currently being treated for acute hypoxic respiratory failure secondary to PCP pneumonia that was complicated by ventilator associated pneumonia. Patient is currently on tracheostomy tube and mechanically ventilated. 07/07/24: The patient was evaluated and examined at the bedside this morning again. His heart rate was in the range of 110-130s, and his oxygen saturation was between 87-90, in 60%. Later, the patient started desaturating in 80s, and was given propofol push followed by midazolam push to control excessive work of breathing and tachycardia. The patient was also shivering and given the possibility of an infection, blood, urine and sputum cultures were ordered. 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 CT head was considered but given he is on a stable condition we will defer until his condition improves. He was also added on oral liquid morphine 15 Mg 3 times daily. The patient's recent condition was updated to the family members who presented later at bedside. NEURO Patient is sedated and mechanically ventilated through tracheostomy tube. 06/05/2024 Patient was intubated, sedated, and paralyzed for ARDS. Currently on enteral sedatives clonazepam 2 Mg 3 times daily, was added on oral morphine 15 Mg 3 times daily, and phenobarbital 90 Mg 3 times daily -Patient was started back on fentanyl drip for further sedation as patient developed pneumomediastinum on 06/30/2024. Added presidex drip for proper sedation as the patient is having breath stacking. -MRI showed no acute hemorrhage, infarct, mass effect, or midline shift. No findings diagnostic for demyelinating disease. EEG was normal. #Fever, resolved Multiple cultures has been negative, and no overnight episodes of fever -Repeat influenza and COVID test on 07/04 negative -Treat underlying condition -Tylenol as needed #Severe shivering Likely secondary to infectious etiology, but recent cultures has been negative -Ordered blood, urine, sputum cultures -CT head was planned, but due to current condition we will defer until his condition improves CARDIO #Right upper extremity DVT. -Doppler US right upper extremity 06/17/24: revealed RUE DVT -On Heparin Drip, can be switched to oral anticoagulants once hemodynamially stable. #Sinus tachycardia Tachycardia most likely secondary to severe acute respiratory distress syndrome -Continue to treat underlying cause #Shock, resolved Most likely 2/2 sedation. BC has been negative and on appropriate antibiotics Patient presented with septic shock secondary to severe extensive bilateral pneumonia. After resolution of initial septic shock, patient developed new hypotension, tachycardia, tachypnea, fevers indicated of septic shock. -Pressor support as needed -Linezolid (started 06/27-07/04) -Meropenem (started 06/27-07/04) -Urine (06/27) showed resistant staph epi -Blood (06/27) showed resistant Staphylococcus haemolyticus -follow up repeat blood cultures and urine cultures -Repeat Influenza is negative and repeat COVID test pending results PULM #Chronic hypoxic respiratory failure 2/2 #Severe Acute respiratory distress syndrome in the setting of post PCP pneumonia state Secondary to #Bilateral pneumocystis jirovecii pneumonia, resolved #Healthcare associated pneumonia, resolved, resolved #Ventilator associated pneumonia, resolved #S/P Tracheostomy #Pneumomediastinum, resolved Patient presented with dyspnea and cough, requiring 4L NC on first ED evaluation, and history of chills, body aches, generalized weakness, fever, and night sweats progressively worsening over the prior weeks. Approx 20-pack year smoking history, occasional marijuana. 06/17/2024 oxygenation and hypercapnia improved 06/30/2024: CT chest/abdomen/pelvis revealed pneumomediastinum On linezolid 600 mg q12h 06/15/24-06/22/24 Plan: -Linezolid (started 06/27-07/04) and Meropenum (started 06/27-07/04) -Continue with daily Bactrim -ABG as needed -Continue sedation RAAS scale -3 with fentanyl drip and Precedex drip as there is breath stacking 2/2 ARDS in the setting of pneumomediastinum, and decreased tidal volume to 400cc -Cannot proceed with Proning as patient has tracheostomy tube placed -Repeat Influenza and COVID19 is negative GI GI prophylaxis: IV pantoprazole 40 Mg daily #Elevated LFTs 2/2 HIV DDx: adverse affect of drugs, we had discontinued oxycodone previously, and phenobarbitol Liver enzymes started trending down after discontinuing oxycodone and phenobarbitol. liver US 05/30/2024 showed normal gallbladder and hepatomegaly without lesions or evidence of obstructions. Hep panel negative. LFTs downtrending Plan: -Continue monitoring #Hypertriglyceridemia, trending down More likely secondary to propofol use -We repeated lipid panel on 06/30/2024- 183 -Started on propofol, and we will continue to trend TGL NEPHRO #Central diabetes insipidus Etiology currently unknown, DDx: Most likely secondary to elevated intracranial pressure in the setting of possible intracranial infection in the setting of AIDS Urine output has been around 400 cc/h that was observed this morning, with improvement in mild chronic hyponatremia to normal range -CT head without contrast was planned, but given he is in a stable condition he is not a candidate for CT head at this time -Desmopressin 0.04 mcg IV twice daily -Continue to monitor urine output and sodium level #Hypophosphatemia, stable #WILL, resolved #Hyperkalemia---Resolved #Hyperphosphatemia, resolved Hypophosphatemia likely secondary to nutritional deficiency, further complicated by decreased absorption due to patient being on Bactrim and calcium carbonate. Plan: -On Neutra phos 2 packs TID- stopped on 07/05 -Maintain euvolemia -Replete electrolytes as needed. #Mild hyponatremia, Redolved Secondary to SIADH due to acute hypoxic respiratory failure leading to pulmonary distress -Continue to monitor #NAGMA #Primary Respiratory acidosis compensated by metabolic alkalosis, stable Secondary to increased work of breathing and increased RR 2/2 chronic hypoxic respiratory failure and chronic respiratory distress syndrome in the setting of tapering down of IV sedatives -ABGs revealed pH of 7.46, pCO2 53, pO2 66 and bicarb 38. -ABG on 06/28/2024 revealed pH of 7.32, pCO2 64 and bicarb 33.1. -We will treat the underlying cause HEME #Leukocytosis, resolved Fluctuating WBC. In the setting of likely infection, inflammation, and corticosteroids. 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 Clinically no evidence of bleeding. Iron panel shows iron 17, TIBC 262, iron saturation 6, unsaturated iron binding 245. Peripheral blood film confirms microcytic hypochromic anemia with target cells. Also daily lab draws contributing. Plan: -Started on oral ferrous sulfate 300 Mg daily -Monitor H&H. Transfusing for Hgb <7 #Thrombocytosis, resolved Likely reactive. -Continue to monitor ENDO #Hypoglycemia, resolved ID #Bilateral pneumocystis pneumonia, resolved #Healthcare associated pneumonia, resolved #Ventilator associated pneumonia, resolved #PCP pneumonia prophylaxis Negative studies: Cocci IgM and IgG, Hepatitis panel, Syphilis, Legionella, H.flu, N.meningitidis, Strep B, Strep pneumoniae, COVID, RSV, Flu A & B. TB quantiferon GOLD-indeterminate, however 06/05 AFB negative, CMV IgM, cryptococcal antigen negative. G6PD levels came back normal for consideration of dapsone alternative to Bactrim if needed. Patient completed 5 day course of azithromycin, 16 days of Zosyn. See Pulm for timeline of antimicrobial coverage. On 06/27 patient developed new septic shock Plan: -Antibiotcs Bactrim for prevention of PCP pneumonia in the setting of CD4 count of 116 -Linezolid and meropenum restarted on 06/27/2024-07/04/24 -Urine ackerman port grew GPC, Staph epidermidis that is MDR, sensitive to linezolid. -Fungal cultures from BAL pending, follow-up on results -Blood cultures from 06/26/2024 and 06/27/2024, negative so far, cultures drawn on 06/29/2024 is pending -Follow up blood, sputum, and urine cultures were negative -Repeat blood, urine, sputum cultures were ordered on 07/07/2024 #AIDS/HIV Patient has Stage 4 HIV, AIDS-defining illness with opportunistic infection. 06/07/2024 Bronchoalveolar lavage cytology shows Pneumocystis jirovecii. Also other fungi, possibly Kassandra. Kassandra is most likely a contaminant. Blood hojo-[id number]-qsubvl also positive. 06/08/2024 HIV quant 5.66 million copies. HIV 1 positive confirmed. 06/09/2024 Patient's decision maker, Francesca, was informed of diagnosis due to critical state of patient. Absolute CD4 count 87 and 22% on 06/02. History/risk factors: History of injection anabolic androgenic steroid and testosterone use, possible unclean needles. History of incarceration (unknown time). Tattoos received as a teenager. Has 1 female sexual partner last 5 years, denies others. -Continue HAART: emtricitabine / tenofovir (Truvada) and raltegravir initiated 06/09/24 -Patient is not aware of his diagnosis as he has been intubated and sedated before results returned. Will require complete education and counseling on the disease if his mental status and clinical condition improves. #IRIS The patient has been on HAART for around 4 weeks and given the presentation of ARDS, with negative BC, positive for fever, and on appropriate antibiotics, still having respiratory distress with breathy stacking there is a high possibility of IRIS -Continue on methylprednisone 40mg IV BID until 07/09/2024, after that we can taper down to once daily dose MSK #Elevated creatine kinase -Down trended SKIN #Lower lip abrasion #Right forearm blisters -Improving -Monitor closely Dispo: Patient was admitted to ICU unit for the management of acute hypoxic respiratory failure 2/2 PCP pneumonia in the 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 The patient is being downgraded to telemetry unit for further management of chronic hypoxic respiratory failure s/p tracheostomy. DVT prophylaxis: On heparin drip for treatment of right upper extremity DVT GI prophylaxis: Pantoprazole 40 mg IV qday, discontinued Diet: Tube feeds Ackerman: No, condom cath Lines: Peripheral IV, removed rt femoral central line on 06/28/24 Antibiotics: Bactrim CODE STATUS: DNR/DNI The patient's management plan was discussed with my attending physician MD Jeff Story MD, PGY2
[2024-07-07] MEDS: HEPARIN SOD INJ 5000 UNIT/ML VIAL 2840 UNIT IV (13:45)
--- NOTE | 2024-07-07 13:52 | CHAP ---
01:00 PM Visited by [facility] spiritual care volunteer Provided prayer for Patient and family.
[2024-07-07] MEDS: DEXMEDETOMIDINE 200 MCG IVPB 200 MCG/50 ML BOTTLE 25.2 MCG IV ×5 (14:50→22:20)
[2024-07-07 15:06] LABS: Triglycerides 247 mg/dL (30-150)
--- NOTE | 2024-07-07 15:35 | PC.SS ---
Update: Patient remains Trach/PEG. Cultures have been ordered, results are pending.
[2024-07-07 19:38] LABS: Partial Thromboplastin Time 67.5 Seconds (22.0-36.0)
[2024-07-08] VITALS (104 sets, daily range): BP systolic 87–170; BP diastolic 43–95; PULSE 27–93; RESP 12–40; TEMP 35.6–37.7; O2SAT 84–100; BMI 24.5
--- NOTE | 2024-07-08 | XR_ITS ---
Examination: MRI of brain without intravenous contrast. MRI brain with intravenous contrast. Date and time of exam:July 08, 2024 1705 hrs. Comparison June 27, 2024 Indications: Altered mental status beginning last week fatigue nausea and weakness in the extremities, diagnosis encephalopathy Technique: Multiple axial and sagittal images of the brain to been obtained. Siemens high-resolution 1.52 Crystal short bore scanner utilized. Sagittal sections, T1 weighted images, TR 500, TE 14, are performed. Axial sections proton-density and T2-weighted images have been obtained. Inversion recovery axial images, TR 9260, TE 111, TR 2500. Diffusion weighted images, axial sections, TR 4800, TE 128, B value 1000. Axial sections, ADC map, TR 4800, TE 128. Axial and coronal images were also obtained post 14 cc gadolinium administered intravenously. Findings:: Enlargement of the sella turcica is not present. The optic chiasm and infundibular stalk are not remarkable. There is no localized enlargement of the medulla or jorge. Fourth ventricle and cerebellar tonsils appear normal in position. No subacute area of hemorrhage density is seen. Fourth ventricle is midline. Mass in the cerebellopontine angle region is not evident. 7th and 8th nerve complexes exhibit symmetry Globes are symmetrical Orbital musculature including medial lateral rectus muscles do not exhibit abnormality Increased white matter signal is evident left cerebral white matter Effacement of the cortical sulcal markings is not identified. Mass effect upon the ventricular system is not identified. Diffusion-weighted images demonstrate prominent foci restricted diffusion in the left frontal parietal white matter and milder foci restricted diffusion scattered right parietal white matter Contrast images demonstrate mild probable luxury perfusion in the left frontal parietal white matter Impression: Large areas of restricted diffusion in the left frontal parietal white matter and smaller foci in the right parietal white matter most consistent with acute infarction, the appearance should be clinically correlated
[2024-07-08] MEDS: DEXMEDETOMIDINE 200 MCG IVPB 200 MCG/50 ML BOTTLE 25.2 MCG IV ×11 (00:19→22:51)
[2024-07-08] MEDS: Heparin/D5w 25K 250 ML Ivpb 25,000 UNIT/250 ML BAG 15.73 UNIT IV (01:45)
[2024-07-08] MEDS: ALBUTEROL/IPRATROPIUM (Duoneb) RT SOL 3 ML NEBU INH ×4 (02:31→18:46)
[2024-07-08] MEDS: ACETYLCYSTEINE SOL 20% 4 ML NEBU 3 ML INH ×4 (02:31→18:46)
[2024-07-08] MEDS: PROPOFOL 1,000 MG IVPB 1,000 MG/100 ML VIAL 22.5 MG IV ×5 (02:45→23:39)
[2024-07-08] MEDS: fentaNYL 2,500 MCG/250 ML BAG 2,500 MCG/250 ML BAG 30 MCG IV ×3 (04:35→22:37)
[2024-07-08] MEDS: MORPHINE SULF LIQD 10 MG/5 ML UDC 15 MG PO (05:14)
[2024-07-08] MEDS: Artificial Tears 225 DROP/15 ML BTL BOTH EYES ×4 (05:15→20:12)
[2024-07-08] MEDS: PHENOBARBITAL ELIX 20 MG/5 ML 90 MG GT ×3 (05:15→21:03)
[2024-07-08] MEDS: clonazePAM 0.5 MG TABLET 2 MG PO ×3 (05:15→21:04)
[2024-07-08 06:09] LABS: Basophils # (Auto) 0.1 Thou/mm3 (0.0-0.2); Basophils % (Auto) 0 % (0-2.5); Eosinophils # (Auto) 0.2 Thou/mm3 (0.0-0.5); Eosinophils % (Auto) 1 % (0-10); Hematocrit 28.4 % (41.0-53.0); Immature Granulocytes % (Auto) 2 % (0-0); Lymphocytes % (Auto) 5 % (10-50); Mean Corpuscular HGB Conc 30.3 g/dl (31.0-37.0); Mean Corpuscular Hemoglobin 24.9 pg (25.0-35.0); Mean Corpuscular Volume 82 fL (80-100); Monocytes # (Auto) 0.9 Thou/mm3 (0.0-0.8); Monocytes % (Auto) 5 % (0-12); Neutrophils # (Auto) 16.7 Thou/mm3 (1.8-7.7); Neutrophils % (Auto) 87 % (37-80); Nucleated Red Blood Cell # 0.03 Thou/mm3 (0.00-0.00); Nucleated Red Blood Cell % 0 /100 WBC (0); Platelet Count 323 Thou/mm3 (140-440); RDW Standard Deviation 73.4 fL (35.1-43.9); Red Blood Count 3.46 Miln/mm3 (4.50-5.90); White Blood Count 19.1 Thou/mm3 (3.8-10.6)
[2024-07-08 06:12] LABS: Hemoglobin 8.6 g/dL (13.5-16.0)
[2024-07-08 06:30] LABS: INR 1.1 (0.9-1.3); Prothrombin Time 12.4 Seconds (9.0-12.2)
[2024-07-08 06:31] LABS: Partial Thromboplastin Time > 139.0 Seconds (22.0-36.0)
[2024-07-08 06:50] LABS: Alanine Aminotransferase 461 U/L (10-49); Albumin, Serum 2.7 gm/dL (3.5-5.0); Anion Gap 3 (7-16); Aspartate Amino Transferase 436 U/L (0-34); BUN/Creatinine Ratio 34 Ratio (12-20); Bilirubin,Total 0.5 mg/dL (0.3-1.2); Blood Urea Nitrogen 24 mg/dL (9-23); Carbon Dioxide 36.7 mMol/L (20.0-31.0); Chloride 93 mMol/L (98-107); Creatinine (Component) 0.7 mg/dL (0.6-1.3); Estimated Creatinine Clearance 129.1 mL/min (>60); Globulin 2.8 gm/dL (2.3-3.5); Glucose 186 mg/dL (74-106); Magnesium 2.1 mg/dL (1.6-2.6); Osmolality,Calculated 275 (275-295); Phosphorous 5.9 mg/dL (2.4-5.1); Potassium 5.9 mMol/L (3.4-5.1); Sodium 133 mMol/L (136-145); Total Protein 5.5 gm/dL (5.7-8.2); eGFR > 60 See Note
[2024-07-08 06:51] LABS: Alkaline Phosphatase 633 U/L (46-116)
[2024-07-08] MEDS: INSULIN HUM REGULAR 1 UNIT/0.01 ML (PER UNIT) 5 UNIT IV (07:35)
[2024-07-08] MEDS: SOD POLYSTYRENE SULFON SUSP 15 GM/60 ML BTL 30 GM PO (07:35)
[2024-07-08] MEDS: SEVELAMER CARBONATE 800 MG TABLET PO ×3 (07:35→21:04)
[2024-07-08] MEDS: DEXTROSE 50%-WATER INJ 50 ML SYRINGE IV (07:35)
[2024-07-08] MEDS: CALCIUM GLUCONATE 10% INJ 1 GM/10 ML VIAL IV (07:35)
[2024-07-08 07:42] LABS: Triglycerides 161 mg/dL (30-150)
[2024-07-08] MEDS: RALTEGRAVIR 400 MG TABLET NG ×2 (08:19→20:12)
[2024-07-08] MEDS: EMTRICITABINE 200 MG/TENOFOVIR 300 MG TAB (NON-FORM) 1 TAB PO (08:19)
[2024-07-08] MEDS: PANTOPRAZOLE INJ 40 MG VIAL IV (08:19)
[2024-07-08] MEDS: QUEtiapine FUMARATE 100 MG TABLET PO ×2 (08:19→20:11)
[2024-07-08] MEDS: Ferrous Sulfate 300 MG/5 ML UDC GT (08:19)
[2024-07-08] MEDS: SULFAMETHOXAZOLE PO (08:27)
[2024-07-08] MEDS: TRIMETHOPRIM PO (08:27)
--- NOTE | 2024-07-08 09:58 | PD.IDPROG ---
Subjective Subjective Interval history: on vent at 70%. staff suggests he has some challenges when they try to reduce his support. this should be shared with family, he is likely to be like this for months. lft's problematic, can not r/o hiv rx as a cause, but our first priority is control of his hiv. we do not have that data available yet. Exam Vital Signs Temp Pulse Resp BP Pulse Ox O2 Del Method O2 Flow Rate 97.0 F 74 36 H 124/65 99 Mechanical Ventilation 40 07/08/24 04:00 07/08/24 06:30 07/08/24 06:26 07/08/24 06:30 07/08/24 06:30 07/08/24 04:00 06/09/24 12:16 FiO2 80 07/08/24 06:26 Narrative Exam sedated. on vent at 70% Objective - Internal Medicine Labs 07/08/24 04:53 07/08/24 04:53 Labs: Laboratory Results - last 24 hr 07/05/24 07/07/24 07/07/24 05:00 04:55 12:18 WBC 7.4 D RBC 3.41 L Hgb 8.4 L Hct 27.8 L MCV 82 MCH 24.6 L MCHC 30.2 L RDW Std Deviation 73.6 H Plt Count 341 D Neut % (Auto) 81 H Lymph % (Auto) 8 L [place] % (Auto) 6 Eos % (Auto) 2 Baso % (Auto) 0 Neut # (Auto) 5.9 Lymph # (Auto) 0.6 L [place] # (Auto) 0.5 Eos # (Auto) 0.1 Baso # (Auto) 0.0 Immature Gran # (Auto) 0.24 H Absolute Nucleated RBC 0.03 H Immature Gran % 3 H Nucleated RBC % 0 PT INR APTT 48.7 H Sodium 137 Potassium 4.7 D Chloride 96 L Carbon Dioxide 37.2 H Anion Gap 4 L BUN 18 Creatinine 0.5 L Estim Creat Clear Calc 180.8 eGFR > 60 BUN/Creatinine Ratio 36 H Glucose 96 Calculated Osmolality 275 Calcium 8.3 Corrected Calcium 9.6 Phosphorus Magnesium Total Bilirubin 0.2 L AST 324 H ALT 285 H Alkaline Phosphatase 508 H D Total Protein 5.2 L Albumin 2.4 L Globulin 2.8 Albumin/Globulin Ratio 0.9 L Triglycerides 247 H Misc Test Result See Sep Rpt 07/07/24 07/08/24 19:01 04:53 WBC 19.1 H D RBC 3.46 L Hgb 8.6 L Hct 28.4 L MCV 82 MCH 24.9 L MCHC 30.3 L RDW Std Deviation 73.4 H Plt Count 323 Neut % (Auto) 87 H Lymph % (Auto) 5 L [place] % (Auto) 5 Eos % (Auto) 1 Baso % (Auto) 0 Neut # (Auto) 16.7 H Lymph # (Auto) 1.0 [place] # (Auto) 0.9 H Eos # (Auto) 0.2 Baso # (Auto) 0.1 Immature Gran # (Auto) 0.30 H Absolute Nucleated RBC 0.03 H Immature Gran % 2 H Nucleated RBC % 0 PT 12.4 H INR 1.1 APTT 67.5 H D > 139.0 H* D Sodium 133 L Potassium 5.9 H D Chloride 93 L Carbon Dioxide 36.7 H Anion Gap 3 L BUN 24 H Creatinine 0.7 Estim Creat Clear Calc 129.1 eGFR > 60 BUN/Creatinine Ratio 34 H Glucose 186 H D Calculated Osmolality 275 Calcium 8.0 L Corrected Calcium 9.0 Phosphorus 5.9 H Magnesium 2.1 Total Bilirubin 0.5 AST 436 H ALT 461 H Alkaline Phosphatase 633 H D Total Protein 5.5 L Albumin 2.7 L Globulin 2.8 Albumin/Globulin Ratio 1.0 L Triglycerides 161 H Misc Test Result ABG Interpretation ABG results: 05/27/24 05/29/24 05/29/24 23:37 10:44 22:08 ABG pH 7.51 H 7.50 H 7.48 H ABG pCO2 28 L 32 32 ABG pO2 75 L 79 L 145 H D ABG HCO3 23 25 24 ABG O2 Saturation 96 95 98 ABG Base Excess 0 2 1 05/30/24 05/31/24 06/04/24 08:45 04:54 02:10 ABG pH 7.47 H 7.45 7.45 ABG pCO2 35 38 36 ABG pO2 86 D 82 L 139 H ABG HCO3 26 26 25 ABG O2 Saturation 97 96 98 ABG Base Excess 2 2 1 06/04/24 06/05/24 06/05/24 18:16 11:36 12:59 ABG pH 7.44 7.11 L* D 7.20 L ABG pCO2 36 94 H* D 68 H D ABG pO2 80 L D 150 H D 121 H D ABG HCO3 24 30 H 26 ABG O2 Saturation 94 97 97 ABG Base Excess 0 -2 -3 06/05/24 06/06/24 06/06/24 19:25 04:13 15:27 ABG pH 7.22 L 7.27 L 7.30 L ABG pCO2 64 H 57 H 60 H ABG pO2 122 H 153 H D 74 L D ABG HCO3 26 26 29 H ABG O2 Saturation 97 99 H 92 ABG Base Excess -3 -2 2 06/07/24 06/07/24 06/08/24 03:55 09:59 04:20 ABG pH 7.41 D 7.43 7.45 ABG pCO2 56 H 55 H 50 H ABG pO2 293 H D 78 L D 75 L ABG HCO3 36 H 37 H 35 H ABG O2 Saturation 99 H 95 94 ABG Base Excess 10 H 11 H 10 H 06/08/24 06/08/24 06/08/24 11:05 11:50 13:18 ABG pH 7.17 L* D 7.10 L* 7.15 L* ABG pCO2 95 H* D 115 H* D 88 H* D ABG pO2 89 75 L 72 L ABG HCO3 34 H 36 H 31 H ABG O2 Saturation 92 84 L 85 L ABG Base Excess 3 4 H 0 06/08/24 06/09/24 06/09/24 17:02 01:33 03:15 ABG pH 7.18 L* 7.22 L 7.27 L ABG pCO2 50 H D 91 H* D 82 H* ABG pO2 82 L 105 D 86 ABG HCO3 19 L 37 H 38 H ABG O2 Saturation 93 97 95 ABG Base Excess -9 L 7 H 9 H 06/09/24 06/09/24 06/10/24 05:08 12:52 04:40 ABG pH 7.31 L 7.33 L 7.30 L ABG pCO2 75 H* 57 H D 78 H* D ABG pO2 97 158 H D 65 L D ABG HCO3 38 H 30 H 38 H ABG O2 Saturation 97 99 H 90 L ABG Base Excess 10 H 3 9 H 11/22/24 11/23/24 11/24/24 09:40 04:19 04:15 ABG pH 7.27 L 7.35 7.48 H D ABG pCO2 88 H* D 86 H* 63 H D ABG pO2 65 L 70 L 76 L ABG HCO3 40 H 48 H 47 H ABG O2 Saturation 89 L 93 95 ABG Base Excess 10 H 19 H 21 H 06/13/24 06/14/24 06/15/24 07:22 04:32 03:45 ABG pH 7.46 H 7.48 H 7.46 H ABG pCO2 56 H 40 D 37 ABG pO2 80 L 64 L 71 L ABG HCO3 39 H 30 H 27 H ABG O2 Saturation 95 92 94 ABG Base Excess 13 H 6 H 3 06/15/24 06/15/24 06/15/24 10:17 12:20 14:20 ABG pH 7.01 L* D 7.00 L* 7.03 L* ABG pCO2 122 H* D 130 H* 125 H* ABG pO2 91 D 88 82 L ABG HCO3 31 H 32 H 33 H ABG O2 Saturation 88 L 88 L 87 L ABG Base Excess -3 -2 -1 06/15/24 06/15/24 06/16/24 15:55 20:39 00:35 ABG pH 7.03 L* 7.08 L* 7.10 L* ABG pCO2 121 H* 116 H* 118 H* ABG pO2 99 117 H 102 ABG HCO3 32 H 34 H 37 H ABG O2 Saturation 93 97 96 ABG Base Excess -1 2 4 H 06/16/24 06/16/24 06/17/24 04:45 08:55 05:06 ABG pH 7.17 L* 7.28 L D 7.33 L ABG pCO2 112 H* 88 H* D 96 H* ABG pO2 155 H D 98 D 126 H D ABG HCO3 41 H 41 H 50 H ABG O2 Saturation 99 H 98 99 H ABG Base Excess 9 H 12 H 21 H 06/17/24 06/17/24 06/18/24 10:58 13:55 04:16 ABG pH 7.29 L 7.29 L 7.33 L ABG pCO2 106 H* D 106 H* 86 H* D ABG pO2 58 L* D 61 L 77 L ABG HCO3 51 H 51 H 45 H ABG O2 Saturation 87 L 88 L 95 ABG Base Excess 21 H 21 H 17 H 06/19/24 06/20/24 06/21/24 04:18 04:49 04:06 ABG pH 7.42 7.36 7.44 ABG pCO2 63 H D 74 H* D 61 H D ABG pO2 66 L 55 L* 202 H D ABG HCO3 41 H 42 H 42 H ABG O2 Saturation 93 87 L 100 H ABG Base Excess 15 H 14 H 16 H 06/22/24 06/23/24 06/24/24 04:18 04:29 04:25 ABG pH 7.45 7.46 H 7.29 L D ABG pCO2 57 H 53 H 80 H* D ABG pO2 60 L D 99 D 88 ABG HCO3 40 H 38 H 38 H ABG O2 Saturation 91 99 H 96 ABG Base Excess 14 H 13 H 9 H 06/24/24 06/25/24 06/25/24 08:50 05:13 11:02 ABG pH 7.40 D 7.46 H Cancelled ABG pCO2 61 H D 53 H Cancelled ABG pO2 110 H D 66 L D Cancelled ABG HCO3 38 H 38 H Cancelled ABG O2 Saturation 99 H 94 Cancelled ABG Base Excess 12 H 13 H Cancelled 06/25/24 06/26/24 06/26/24 15:53 04:13 11:40 ABG pH 7.39 7.41 7.46 H ABG pCO2 53 H 48 43 ABG pO2 55 L* 58 L* 58 L* ABG HCO3 32 H 30 H 31 H ABG O2 Saturation 86 L 89 L 92 ABG Base Excess 6 H 5 H 6 H 06/27/24 06/28/24 06/28/24 04:17 04:24 06:22 ABG pH 7.48 H 7.27 L D 7.22 L ABG pCO2 39 72 H* D 83 H* D ABG pO2 49 L* 71 L D 82 L ABG HCO3 29 H 33 H 34 H ABG O2 Saturation 87 L 93 95 ABG Base Excess 5 H 5 H 4 H 06/28/24 06/29/24 06/30/24 10:18 04:21 07:57 ABG pH 7.32 L D 7.41 7.41 ABG pCO2 64 H D 63 H 62 H ABG pO2 76 L 81 L 59 L* D ABG HCO3 33 H 40 H 40 H ABG O2 Saturation 95 97 88 L ABG Base Excess 6 H 14 H 13 H 07/02/24 07/03/24 07/04/24 04:05 04:45 04:11 ABG pH 7.46 H 7.43 7.38 ABG pCO2 53 H 58 H 67 H ABG pO2 77 L 100 D 73 L D ABG HCO3 38 H 39 H 40 H ABG O2 Saturation 96 98 94 ABG Base Excess 12 H 13 H 13 H 07/05/24 07/06/24 04:40 04:08 ABG pH 7.30 L 7.42 D ABG pCO2 87 H* D 67 H D ABG pO2 132 H D 64 L D ABG HCO3 43 H 43 H ABG O2 Saturation 99 H 92 ABG Base Excess 14 H 17 H Assessment & Plan A&P Narrative pneumonia.pjp on bal noted. hiv. infection, newly discovered in a heterosexual man. can not r/o ivdu resp failure, hypoxic with ards noted. variable O2 status jo ann, resolved. acute febrile illness. cause uncertain.rx empirical, cx unrevealing rash on rt arm. cause uncertain. stabilized, rt arm only he has hiv, gf needs to be tested and is reportedly neg. ok for hiv rx as ordered. changed bactrim to once daily about 06/29. hiv rx is ongoing. if vl less than before we are ok. unless R is noted As noted before, not every one survives, he is only 39, but is newly discovered to have a very bad disease that is easier to manage if caught earlier. ok to maintain steroid rxn. for now. repeat cx noted. ok to be off flucon as cd4 >100 and crypto ag neg. gc chlam sent 06/27 and remain pending. odd. today is 07/08/24 will have to notify pt when he is awake f his findings. be sure that gf is tested as precaution. family states she is neg. lft's noted. can be caused by any of a number of factors. normal/neg bili noted. had a blip a few days agoand is up again today, no change in rx noted await the tests ordered the other day. we usually do not repeat the hiv vl and cd4 for 3 mo after verifying s virus in system.so it may not be undetectable but should be lower than at onset. would not treat for cmv, am ok with a biopsy of the rt arm if felt needed. note neg syphilis screen and unilateral finding on arm Time Spent With Patient Time: Total time spent is greater than 50% in coordination of care (as documented) at patient's floor/unit and/or counseling patient:
--- NOTE | 2024-07-08 12:54 | PC.SS ---
Family meeting conducted with the patient?s following family members: Anshu Owen Sr., Rina Owen (mother), Francesca (sister), Marquis Flynn (sister/via phone), Mary Owen (sister/via phone), Homejordana Riverazo (brother) and Anshu Brayden Cook (brother). Medical team present: Dr. Price, Dr. Guidry, Dr. Pacheco, Essie charge nurse, Camille site interpreter and undersigned. Dr. Price provided the family members with an overview on the patient?s condition. Patient remains sedated, absent of fever. Plan is to attempt MRI today. In addition will attempt to titrate patient?s oxygen level. It was relayed to family that the patient remains critically ill necessitating continued ICU placement. Medical team answered family?s questions. Patient?s mother, Rina; confirmed in presence of family members that patient?s sister, Francesca Owen; is the patient?s medical surrogate decision maker. At present time the patient will not transition to comfort care.
--- NOTE | 2024-07-08 13:14 | PC.NURSE ---
Dr Price and QUINN Addison having a family meeting with the patients parents and siblings. Dr Price explained patients health status and the plan of care for the patient. Family understood patients health status and the need for a brain MRI which will be done once the patient is able to tolerate exam.
[2024-07-08] MEDS: CALCIUM CARBONATE 600 MG TABLET GT (13:30)
--- NOTE | 2024-07-08 14:48 | ESPR_ITS ---
<Statement entered by Emely Price MD - 07/09/24 20:53> TOTAL CC TIME: 45 MIN I saw and evaluated the patient. I reviewed the resident?s note and agree with findings and plan as documented in the resident?s note. Upon my evaluation, this patient had a high probability of imminent or life- threatening deterioration due to acute hypoxic resp failure which required my direct attention, intervention, and personal management. This time is exclusive of time spent on procedures, which are documented separately if performed. today appears improved as sedation was increased clx results remain negative fevers resolved for now family updated and pt remains DNR/DNI but continued care Fio2 requirements coming down Pplt improved today Documentation for date of: 07/08/24 Subjective Subjective Interval history: 07/05/2024: The patient was examined and evaluated at the bedside this morning. His heart rate has been in the range of 100-110. Overnight, around this morning the patient again had another spell of intractable coughing episodes, and required bag and mask ventilation. Patient was given 2 mg IV midazolam, and that subsided he is coughing spells. We will continue to trend down FiO2 as tolerated. Ordered galactomannan test to rule out any aspergillosis, as and influenza test done yesterday came back negative. We will stop Neutra-Phos today, and continue to monitor electrolytes. 07/06/2024: The patient was examined and evaluated at the bedside this morning. His heart rate was in 80s to 90s, that later trended down to 59 as lowest and again went up in the 70s. The patient was saturating greater than 88% on FiO2 45%, but later started desaturating to 82 to 83%, and FiO2 was increased to 60%. We stopped metoprolol to tartrate 25 Mg twice daily. Electrolytes are stable, mild elevation in liver enzymes continues. 07/07/24: The patient was evaluated and examined at the bedside this morning again. His heart rate was in the range of 110-130s, and his oxygen saturation was between 87-90, in 60%. Later, the patient started desaturating in 80s, and was given propofol push followed by midazolam push to control excessive work of breathing and tachycardia. The patient was also shivering and given the possibility of an infection, blood, urine and sputum cultures were ordered. 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 CT head was considered but given he is on a stable condition we will defer until his condition improves. He was also added on oral liquid morphine 15 Mg 3 times daily. The patient's recent condition was updated to the family members who presented later at bedside. 07/08/2024: The patient was evaluated and examined at the bedside this morning. He was saturating 99% on 70% FiO2. He is FiO2 was further trended down to 50%, and patient was saturating 92 to 93%. Yesterday he had possible withdrawal syndrome leading to fever and respiratory distress and this morning his white count trended up to 19.1. His potassium was 5.9, and was given D50 IV 50 mL x 1, insulin 5 units IV x 1, calcium gluconate 1 g x 1, and Kayexalate 30 g x 1. We are pending all blood, urine and sputum cultures. His liver enzymes has been trending up, likely in the setting of possible withdrawal syndrome. Goals of care discussion was done with family members, and as the patient's condition mildly improved from yesterday, the family members requested continuing medical management at this time. We will get MRI brain to further evaluate any intracranial etiology. Exam Vital Signs Temp Pulse Resp BP Pulse Ox O2 Del Method O2 Flow Rate 99.9 F 66 38 H 138/70 H 91 L Mechanical Ventilation 40 07/08/24 12:00 07/08/24 13:17 07/08/24 13:17 07/08/24 13:15 07/08/24 13:17 07/08/24 04:00 06/09/24 12:16 FiO2 50 07/08/24 13:17 Narrative Exam GEN: Critically ill, not acutely distressed, sedated and mechanically ventilated. Neuro: Deferred due to sedation. HEENT: NCAT, tracheostomy tube on appropriate position, mild abrasion over lower lips, improving. CVS: Mildly tachycardic, no M/R/G. No JVD Respi: Mechanically ventilated, b/l breath sounds heard, significant rhonchi in all lung rosas, ABD: Soft, no grimace to palpation, bowel sounds present in all 4 quadrants, PEG tube in appropriate place Skin: warm, dry and intact. Extremities: Pulses 2+ in all extremities, bilateral upper and lower extremity edema, ruptured vesicles 1-2 cm on the rt forearm surface that have been healing. Objective Labs 07/08/24 04:53 07/08/24 04:53 Labs: Laboratory Results - last 24 hr 07/05/24 07/07/24 07/07/24 05:00 04:55 19:01 WBC RBC Hgb Hct MCV MCH MCHC RDW Std Deviation Plt Count Neut % (Auto) Lymph % (Auto) Alexander % (Auto) Eos % (Auto) Baso % (Auto) Neut # (Auto) Lymph # (Auto) Alexander # (Auto) Eos # (Auto) Baso # (Auto) Immature Gran # (Auto) Absolute Nucleated RBC Immature Gran % Nucleated RBC % PT INR APTT 67.5 H D Sodium Potassium Chloride Carbon Dioxide Anion Gap BUN Creatinine Estim Creat Clear Calc eGFR BUN/Creatinine Ratio Glucose Calculated Osmolality Calcium Corrected Calcium Phosphorus Magnesium Total Bilirubin AST ALT Alkaline Phosphatase Total Protein Albumin Globulin Albumin/Globulin Ratio Triglycerides 247 H Misc Test Result See Sep Rpt 07/08/24 04:53 WBC 19.1 H D RBC 3.46 L Hgb 8.6 L Hct 28.4 L MCV 82 MCH 24.9 L MCHC 30.3 L RDW Std Deviation 73.4 H Plt Count 323 Neut % (Auto) 87 H Lymph % (Auto) 5 L Alexander % (Auto) 5 Eos % (Auto) 1 Baso % (Auto) 0 Neut # (Auto) 16.7 H Lymph # (Auto) 1.0 Alexander # (Auto) 0.9 H Eos # (Auto) 0.2 Baso # (Auto) 0.1 Immature Gran # (Auto) 0.30 H Absolute Nucleated RBC 0.03 H Immature Gran % 2 H Nucleated RBC % 0 PT 12.4 H INR 1.1 APTT > 139.0 H* D Sodium 133 L Potassium 5.9 H D Chloride 93 L Carbon Dioxide 36.7 H Anion Gap 3 L BUN 24 H Creatinine 0.7 Estim Creat Clear Calc 129.1 eGFR > 60 BUN/Creatinine Ratio 34 H Glucose 186 H D Calculated Osmolality 275 Calcium 8.0 L Corrected Calcium 9.0 Phosphorus 5.9 H Magnesium 2.1 Total Bilirubin 0.5 AST 436 H ALT 461 H Alkaline Phosphatase 633 H D Total Protein 5.5 L Albumin 2.7 L Globulin 2.8 Albumin/Globulin Ratio 1.0 L Triglycerides 161 H Misc Test Result ABG Interpretation ABG results: 05/27/24 05/29/24 05/29/24 23:37 10:44 22:08 ABG pH 7.51 H 7.50 H 7.48 H ABG pCO2 28 L 32 32 ABG pO2 75 L 79 L 145 H D ABG HCO3 23 25 24 ABG O2 Saturation 96 95 98 ABG Base Excess 0 2 1 05/30/24 05/31/24 06/04/24 08:45 04:54 02:10 ABG pH 7.47 H 7.45 7.45 ABG pCO2 35 38 36 ABG pO2 86 D 82 L 139 H ABG HCO3 26 26 25 ABG O2 Saturation 97 96 98 ABG Base Excess 2 2 1 06/04/24 06/05/24 06/05/24 18:16 11:36 12:59 ABG pH 7.44 7.11 L* D 7.20 L ABG pCO2 36 94 H* D 68 H D ABG pO2 80 L D 150 H D 121 H D ABG HCO3 24 30 H 26 ABG O2 Saturation 94 97 97 ABG Base Excess 0 -2 -3 06/05/24 06/06/24 06/06/24 19:25 04:13 15:27 ABG pH 7.22 L 7.27 L 7.30 L ABG pCO2 64 H 57 H 60 H ABG pO2 122 H 153 H D 74 L D ABG HCO3 26 26 29 H ABG O2 Saturation 97 99 H 92 ABG Base Excess -3 -2 2 06/07/24 06/07/24 06/08/24 03:55 09:59 04:20 ABG pH 7.41 D 7.43 7.45 ABG pCO2 56 H 55 H 50 H ABG pO2 293 H D 78 L D 75 L ABG HCO3 36 H 37 H 35 H ABG O2 Saturation 99 H 95 94 ABG Base Excess 10 H 11 H 10 H 06/08/24 06/08/24 06/08/24 11:05 11:50 13:18 ABG pH 7.17 L* D 7.10 L* 7.15 L* ABG pCO2 95 H* D 115 H* D 88 H* D ABG pO2 89 75 L 72 L ABG HCO3 34 H 36 H 31 H ABG O2 Saturation 92 84 L 85 L ABG Base Excess 3 4 H 0 06/08/24 06/09/24 06/09/24 17:02 01:33 03:15 ABG pH 7.18 L* 7.22 L 7.27 L ABG pCO2 50 H D 91 H* D 82 H* ABG pO2 82 L 105 D 86 ABG HCO3 19 L 37 H 38 H ABG O2 Saturation 93 97 95 ABG Base Excess -9 L 7 H 9 H 06/09/24 06/09/24 06/10/24 05:08 12:52 04:40 ABG pH 7.31 L 7.33 L 7.30 L ABG pCO2 75 H* 57 H D 78 H* D ABG pO2 97 158 H D 65 L D ABG HCO3 38 H 30 H 38 H ABG O2 Saturation 97 99 H 90 L ABG Base Excess 10 H 3 9 H 06/10/24 06/11/24 06/12/24 09:40 04:19 04:15 ABG pH 7.27 L 7.35 7.48 H D ABG pCO2 88 H* D 86 H* 63 H D ABG pO2 65 L 70 L 76 L ABG HCO3 40 H 48 H 47 H ABG O2 Saturation 89 L 93 95 ABG Base Excess 10 H 19 H 21 H 06/13/24 06/14/24 06/15/24 07:22 04:32 03:45 ABG pH 7.46 H 7.48 H 7.46 H ABG pCO2 56 H 40 D 37 ABG pO2 80 L 64 L 71 L ABG HCO3 39 H 30 H 27 H ABG O2 Saturation 95 92 94 ABG Base Excess 13 H 6 H 3 06/15/24 06/15/24 06/15/24 10:17 12:20 14:20 ABG pH 7.01 L* D 7.00 L* 7.03 L* ABG pCO2 122 H* D 130 H* 125 H* ABG pO2 91 D 88 82 L ABG HCO3 31 H 32 H 33 H ABG O2 Saturation 88 L 88 L 87 L ABG Base Excess -3 -2 -1 06/15/24 06/15/24 06/16/24 15:55 20:39 00:35 ABG pH 7.03 L* 7.08 L* 7.10 L* ABG pCO2 121 H* 116 H* 118 H* ABG pO2 99 117 H 102 ABG HCO3 32 H 34 H 37 H ABG O2 Saturation 93 97 96 ABG Base Excess -1 2 4 H 06/16/24 06/16/24 06/17/24 04:45 08:55 05:06 ABG pH 7.17 L* 7.28 L D 7.33 L ABG pCO2 112 H* 88 H* D 96 H* ABG pO2 155 H D 98 D 126 H D ABG HCO3 41 H 41 H 50 H ABG O2 Saturation 99 H 98 99 H ABG Base Excess 9 H 12 H 21 H 06/17/24 06/17/24 06/18/24 10:58 13:55 04:16 ABG pH 7.29 L 7.29 L 7.33 L ABG pCO2 106 H* D 106 H* 86 H* D ABG pO2 58 L* D 61 L 77 L ABG HCO3 51 H 51 H 45 H ABG O2 Saturation 87 L 88 L 95 ABG Base Excess 21 H 21 H 17 H 06/19/24 06/20/24 06/21/24 04:18 04:49 04:06 ABG pH 7.42 7.36 7.44 ABG pCO2 63 H D 74 H* D 61 H D ABG pO2 66 L 55 L* 202 H D ABG HCO3 41 H 42 H 42 H ABG O2 Saturation 93 87 L 100 H ABG Base Excess 15 H 14 H 16 H 06/22/24 06/23/24 06/24/24 04:18 04:29 04:25 ABG pH 7.45 7.46 H 7.29 L D ABG pCO2 57 H 53 H 80 H* D ABG pO2 60 L D 99 D 88 ABG HCO3 40 H 38 H 38 H ABG O2 Saturation 91 99 H 96 ABG Base Excess 14 H 13 H 9 H 06/24/24 06/25/24 06/25/24 08:50 05:13 11:02 ABG pH 7.40 D 7.46 H Cancelled ABG pCO2 61 H D 53 H Cancelled ABG pO2 110 H D 66 L D Cancelled ABG HCO3 38 H 38 H Cancelled ABG O2 Saturation 99 H 94 Cancelled ABG Base Excess 12 H 13 H Cancelled 06/25/24 06/26/2406/26/24 15:53 04:13 11:40 ABG pH 7.39 7.41 7.46 H ABG pCO2 53 H 48 43 ABG pO2 55 L* 58 L* 58 L* ABG HCO3 32 H 30 H 31 H ABG O2 Saturation 86 L 89 L 92 ABG Base Excess 6 H 5 H 6 H 06/27/24 06/28/24 06/28/24 04:17 04:24 06:22 ABG pH 7.48 H 7.27 L D 7.22 L ABG pCO2 39 72 H* D 83 H* D ABG pO2 49 L* 71 L D 82 L ABG HCO3 29 H 33 H 34 H ABG O2 Saturation 87 L 93 95 ABG Base Excess 5 H 5 H 4 H 06/28/24 06/29/24 06/30/24 10:18 04:21 07:57 ABG pH 7.32 L D 7.41 7.41 ABG pCO2 64 H D 63 H 62 H ABG pO2 76 L 81 L 59 L* D ABG HCO3 33 H 40 H 40 H ABG O2 Saturation 95 97 88 L ABG Base Excess 6 H 14 H 13 H 07/02/24 07/03/24 07/04/24 04:05 04:45 04:11 ABG pH 7.46 H 7.43 7.38 ABG pCO2 53 H 58 H 67 H ABG pO2 77 L 100 D 73 L D ABG HCO3 38 H 39 H 40 H ABG O2 Saturation 96 98 94 ABG Base Excess 12 H 13 H 13 H 07/05/24 07/06/24 04:40 04:08 ABG pH 7.30 L 7.42 D ABG pCO2 87 H* D 67 H D ABG pO2 132 H D 64 L D ABG HCO3 43 H 43 H ABG O2 Saturation 99 H 92 ABG Base Excess 14 H 17 H Quality Measures Quality Measures sepsis Current suspected stage: ruled out Possible source: pulmonary, GI tract/intra-abdominal, genitourinary and skin/soft tissue Blood cultures ordered: yes Antibiotic ordered: Yes Assessment & Plan Assessment Current Active Medications: Generic Name Dose Route Start Last Admin Trade Name Freq PRN Reason Stop Dose Admin Acetaminophen 650 mg 06/26/24 15:16 07/07/24 13:12 Acetaminophen Munira 325 Mg/10 Ml Udc GT 07/26/24 15:15 650 mg Q4HR PRN Administration Pain Or Fever > 100.3 Acetylcysteine 3 ml 07/03/24 13:00 07/08/24 13:16 Acetylcysteine Munira 20% 4 Ml Nebu INH 08/02/24 12:59 3 ml Q6HRRT JUAN JOSE Administration Albuterol/Ipratropium 3 ml 07/03/24 13:00 07/08/24 13:16 Albuterol/Ipratropium (Duoneb) Rt Munira 3 Ml Nebu INH 08/02/24 12:59 3 ml Q6HRRT JUAN JOSE Administration Artificial Tears 1 drop 06/18/24 12:00 07/08/24 13:29 Artificial Tears 225 Drop/15 Ml Btl BOTH EYES 07/18/24 11:59 1 drop QID JUAN JOSE Administration Calcium Carbonate 600 mg 06/28/24 13:00 07/08/24 13:30 Calcium Carbonate 600 Mg Tablet GT 07/28/24 12:59 600 mg QDAY@1300 JUAN JOSE Administration Clonazepam 2 mg 06/28/24 08:45 07/08/24 13:30 Clonazepam 0.5 Mg Tablet PO 07/19/24 08:44 2 mg TID JUAN JOSE Administration Docusate Sodium 100 mg 06/25/24 09:13 Docusate Sod Liqd 100 Mg/10 Ml Udc PO 07/22/24 08:59 BID PRN Constipation Protocol Emtricitabine/Tenofovir 1 tab 07/06/24 11:30 07/08/24 08:19 Emtricitabine 200 Mg/Tenofovir 300 Mg Tab (Non-Form) PO 07/13/24 11:29 1 tab QDAY JUAN JOSE Administration Ferrous Sulfate 300 mg 07/02/24 10:00 07/08/24 08:19 Ferrous Sulfate 300 Mg/5 Ml Udc GT 07/23/24 09:59 300 mg QDAY JUAN JOSE Administration Norepinephrine/Dextrose 8 mg in 250 mls @ 6.319 mls/hr 06/30/24 04:17 07/08/24 06:00 Levophed In D5w 8mg/250ml IV 07/30/24 04:16 0.09 mcg/kg/min .Q24H PRN 11.374 mls/hr PER PROTOCOL Titration Protocol 0.05 MCG/KG/MIN Propofol 1,000 mg in 100 mls @ 2.25 mls/hr 07/04/24 06:39 07/08/24 08:21 Diprivan Ivpb IV 08/03/24 06:38 50 mcg/kg/min .Q24H PRN 22.5 mls/hr PER PROTOCOL Administration Protocol 5 MCG/KG/MIN Dexmedetomidine/Sodium Chloride 200 mcg in 50 mls @ 3.6 mls/hr 07/04/24 06:59 07/08/24 12:32 Precedex Ivpb IV 08/01/24 00:16 1.4 mcg/kg/hr .[id number] PRN 25.2 mls/hr Per PROTOCOL Administration Protocol 0.2 MCG/KG/HR Fentanyl Citrate 2,500 mcg in 250 mls @ 2.5 mls/hr 07/05/24 14:45 07/08/24 13:38 Sublimaze Inj 2,500 Mcg/250 Ml Bag IV 08/15/24 14:44 300 mcg/hr .Q24H PRN 30 mls/hr PER PROTOCOL Administration Protocol 25 MCG/HR Heparin Sodium/Dextrose 25,000 unit in 250 mls @ 12.87 mls/hr 07/06/24 13:45 07/08/24 07:30 Heparin In D5w Ivpb IV 07/20/24 13:44 20 units/kg/hr .[id number] JUAN JOSE 14.3 mls/hr Titration Protocol 18 UNITS/KG/HR Methylprednisolone Sodium Succinate 40 mg 07/06/24 21:00 07/08/24 08:19 Methylprednisolone Sod Succ 40 Mg Vial IVP 07/13/24 20:59 40 mg BID JUAN JOSE Administration Midazolam HCl 4 mg 07/07/24 11:02 07/07/24 19:34 Midazolam Inj 1 Mg/Ml Vial 2 Ml IV 07/12/24 11:01 4 mg Q3HR PRN Administration Severe agitation, tachycardia, Pantoprazole Sodium 40 mg 07/07/24 09:32 07/08/24 08:19 Pantoprazole Inj 40 Mg Vial IV 08/06/24 09:31 40 mg QDAY JUAN JOSE Administration Phenobarbital 90 mg 07/07/24 10:15 07/08/24 13:48 Phenobarbital Elix 20 Mg/5 Ml Udc GT 07/21/24 10:14 90 mg TID JUAN JOSE Administration Quetiapine Fumarate 100 mg 06/28/24 21:00 07/08/24 08:19 Quetiapine Fumarate 100 Mg Tablet PO 07/25/24 20:59 100 mg BID JUAN JOSE Administration Raltegravir 400 mg 07/06/24 11:30 07/08/24 08:19 Raltegravir 400 Mg Tablet NG 07/13/24 11:29 400 mg BID JUAN JOSE Administration Sevelamer Carbonate 800 mg 07/08/24 07:30 07/08/24 13:49 Sevelamer Carbonate 800 Mg Tablet PO 08/07/24 07:29 800 mg TID JUAN JOSE Administration Trimethoprim/Sulfamethoxazole 20 ml 06/23/24 09:00 07/08/24 08:27 Trimethoprim/Sulfa Susp 1 Ml PO 06/22/25 12:00 20 ml QDAY JUAN JOSE Administration Plan 39-year-old male patient with no PMHx who initially presented to [facility] on 05/27/2024 with a chief complaint of shortness of breath and cough, with associated chills, body aches, generalized weakness, fever, and night sweats beginning weeks prior but progressively worsening over a few days is currently being treated for acute hypoxic respiratory failure secondary to PCP pneumonia that was complicated by ventilator associated pneumonia. Patient is currently on tracheostomy tube and mechanically ventilated. 07/08/2024: The patient was evaluated and examined at the bedside this morning. He was saturating 99% on 70% FiO2. He is FiO2 was further trended down to 50%, and patient was saturating 92 to 93%. Yesterday he had possible withdrawal syndrome leading to fever and respiratory distress and this morning his white count trended up to 19.1. His potassium was 5.9, and was given D50 IV 50 mL x 1, insulin 5 units IV x 1, calcium gluconate 1 g x 1, and Kayexalate 30 g x 1. We are pending all blood, urine and sputum cultures. His liver enzymes has been trending up, likely in the setting of possible withdrawal syndrome. Goals of care discussion was done with family members, and as the patient's condition mildly improved from yesterday, the family members requested continuing medical management at this time. We will get MRI brain to further evaluate any intracranial etiology. NEURO Patient is sedated and mechanically ventilated through tracheostomy tube. 06/05/2024 Patient was intubated, sedated, and paralyzed for ARDS. Currently on enteral sedatives clonazepam 2 Mg 3 times daily and phenobarbital 90 Mg 3 times daily, DC oral morphine 15 Mg 3 times daily -Patient on fentanyl, presidex and propofol drip -MRI showed no acute hemorrhage, infarct, mass effect, or midline shift. No findings diagnostic for demyelinating disease. EEG was normal. -Repeat MRI ordered. #Fever 2/2 #Withdrawal syndrome Multiple cultures has been negative, had fever ranging from 101-104 F yesterday in the setting of tapering down the sedatives -Repeat influenza and COVID test on 07/04 negative -Repeat blood, urine and sputum culture pending -Treat underlying condition -Tylenol as needed #Severe shivering, resolved CARDIO #Right upper extremity DVT. -Doppler US right upper extremity 06/17/24: revealed RUE DVT -On Heparin Drip, can be switched to oral anticoagulants once hemodynamially stable. #Sinus tachycardia Tachycardia most likely secondary to severe acute respiratory distress syndrome -Continue to treat underlying cause #Shock Most likely 2/2 sedation. BC has been negative and on appropriate antibiotics Patient presented with septic shock secondary to severe extensive bilateral pneumonia. After resolution of initial septic shock, patient developed new hypotension, tachycardia, tachypnea, fevers indicated of septic shock. -Pressor support as needed -Linezolid (started 06/27-07/04) -Meropenem (started 06/27-07/04) -Urine (06/27) showed resistant staph epi -Blood (06/27) showed resistant Staphylococcus haemolyticus -follow up repeat blood cultures and urine cultures -Repeat Influenza is negative and repeat COVID test pending results PULM #Chronic hypoxic respiratory failure 2/2 #Severe Acute respiratory distress syndrome in the setting of post PCP pneumonia state Secondary to #Bilateral pneumocystis jirovecii pneumonia, resolved #Healthcare associated pneumonia, resolved, resolved #Ventilator associated pneumonia, resolved #S/P Tracheostomy #Pneumomediastinum, resolved Patient presented with dyspnea and cough, requiring 4L NC on first ED evaluation, and history of chills, body aches, generalized weakness, fever, and night sweats progressively worsening over the prior weeks. Approx 20-pack year smoking history, occasional marijuana. 06/17/2024 oxygenation and hypercapnia improved 06/30/2024: CT chest/abdomen/pelvis revealed pneumomediastinum On linezolid 600 mg q12h 06/15/24-06/22/24 Plan: -Linezolid (started 06/27-07/04) and Meropenum (started 06/27-07/04) -Continue with daily Bactrim -ABG as needed -Continue sedation RAAS scale -3 with fentanyl drip, Precedex drip and propofol drip. -Cannot proceed with Proning as patient has tracheostomy tube placed -Repeat Influenza and COVID19 is negative GI GI prophylaxis: IV pantoprazole 40 Mg daily #Elevated LFTs 2/2 HIV DDx: adverse affect of drugs, we had discontinued oxycodone previously, and phenobarbitol Liver enzymes started trending down after discontinuing oxycodone and phenobarbitol. liver US 05/30/2024 showed normal gallbladder and hepatomegaly without lesions or evidence of obstructions. Hep panel negative. LFTs downtrending Plan: -Continue monitoring #Hypertriglyceridemia More likely secondary to propofol use -We repeated lipid panel on 06/30/2024- 183 -Started on propofol, and we will continue to trend TGL NEPHRO #Central diabetes insipidus, resolved #Hypophosphatemia, stable #WILL, resolved #Hyperkalemia---Resolved #Hyperphosphatemia, resolved Hypophosphatemia likely secondary to nutritional deficiency, further complicated by decreased absorption due to patient being on Bactrim and calcium carbonate. Plan: -On Neutra phos 2 packs TID- stopped on 07/05 -Maintain euvolemia -Replete electrolytes as needed. #Mild hyponatremia, Resolved Secondary to SIADH due to acute hypoxic respiratory failure leading to pulmonary distress -Continue to monitor #NAGMA #Primary Respiratory acidosis compensated by metabolic alkalosis, stable Secondary to increased work of breathing and increased RR 2/2 chronic hypoxic respiratory failure and chronic respiratory distress syndrome in the setting of tapering down of IV sedatives -ABGs revealed pH of 7.46, pCO2 53, pO2 66 and bicarb 38. -ABG on 06/28/2024 revealed pH of 7.32, pCO2 64 and bicarb 33.1. -We will treat the underlying cause HEME #Leukocytosis Fluctuating WBC. In the setting of likely infection, inflammation, and corticosteroids. 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 Clinically no evidence of bleeding. Iron panel shows iron 17, TIBC 262, iron saturation 6, unsaturated iron binding 245. Peripheral blood film confirms microcytic hypochromic anemia with target cells. Also daily lab draws contributing. Plan: -Started on oral ferrous sulfate 300 Mg daily -Monitor H&H. Transfusing for Hgb <7 #Thrombocytosis, resolved Likely reactive in the setting of withdrawal syndrome -Continue to monitor ENDO #Hypoglycemia, resolved ID #Bilateral pneumocystis pneumonia, resolved #Healthcare associated pneumonia, resolved #Ventilator associated pneumonia, resolved #PCP pneumonia prophylaxis Negative studies: Cocci IgM and IgG, Hepatitis panel, Syphilis, Legionella, H.flu, N.meningitidis, Strep B, Strep pneumoniae, COVID, RSV, Flu A & B. TB quantiferon GOLD-indeterminate, however 06/05 AFB negative, CMV IgM, cryptococcal antigen negative. G6PD levels came back normal for consideration of dapsone alternative to Bactrim if needed. Patient completed 5 day course of azithromycin, 16 days of Zosyn. See Pulm for timeline of antimicrobial coverage. On 06/27 patient developed new septic shock Plan: -Antibiotcs Bactrim for prevention of PCP pneumonia in the setting of CD4 count of 116 -Linezolid and meropenum restarted on 06/27/2024-07/04/24 -Urine ackerman port grew GPC, Staph epidermidis that is MDR, sensitive to linezolid. -Fungal cultures from BAL pending, follow-up on results -Blood cultures from 06/26/2024 and 06/27/2024, negative so far, cultures drawn on 06/29/2024 is pending -Follow up blood, sputum, and urine cultures were negative -Repeat blood, urine, sputum cultures were ordered on 07/07/2024 #AIDS/HIV Patient has Stage 4 HIV, AIDS-defining illness with opportunistic infection. 06/07/2024 Bronchoalveolar lavage cytology shows Pneumocystis jirovecii. Also other fungi, possibly Kassandra. Kassandra is most likely a contaminant. Blood qsdm-A-royfgt also positive. 06/08/2024 HIV quant 5.66 million copies. HIV 1 positive confirmed. 06/09/2024 Patient's decision maker, Francesca, was informed of diagnosis due to critical state of patient. Absolute CD4 count 87 and 22% on 06/02. History/risk factors: History of injection anabolic androgenic steroid and testosterone use, possible unclean needles. History of incarceration (unknown time). Tattoos received as a teenager. Has 1 female sexual partner last 5 years, denies others. -Continue HAART: emtricitabine / tenofovir (Truvada) and raltegravir initiated 06/09/24 -Patient is not aware of his diagnosis as he has been intubated and sedated before results returned. Will require complete education and counseling on the disease if his mental status and clinical condition improves. #IRIS The patient has been on HAART for around 4 weeks and given the presentation of ARDS, with negative BC, positive for fever, and on appropriate antibiotics, still having respiratory distress with breathy stacking there is a high possibility of IRIS -Continue on methylprednisone 40mg IV BID until 07/09/2024, after that we can taper down to once daily dose MSK #Elevated creatine kinase -Down trended SKIN #Lower lip abrasion #Right forearm blisters -Improving -Monitor closely Dispo: Patient was admitted to ICU unit for the management of acute hypoxic respiratory failure 2/2 PCP pneumonia in the 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 The patient is being downgraded to telemetry unit for further management of chronic hypoxic respiratory failure s/p tracheostomy. DVT prophylaxis: On heparin drip for treatment of right upper extremity DVT GI prophylaxis: Pantoprazole 40 mg IV qday Diet: Tube feeds Ackerman: No, condom cath Lines: Peripheral IV, removed rt femoral central line on 06/28/24 Antibiotics: Bactrim CODE STATUS: DNR/DNI The patient's management plan was discussed with my attending physician MD Jeff Story MD, PGY2
[2024-07-08 15:11] LABS: Partial Thromboplastin Time > 139.0 Seconds (22.0-36.0)
[2024-07-08] MEDS: Norepinephrine/D5W 8mg/250ml 8 MG/250 ML BAG 3.791 MG IV (19:13)
--- NOTE | 2024-07-08 19:50 | PC.NURSE ---
at shift change, patients HR dropped to 29 and o2 saturation at low 80's, patient was manually bagged by RT and MD Simran Batres at bedside verbally ordered dopamine drip.
--- NOTE | 2024-07-08 20:00 | PC.NURSE ---
MD Davalos at bedside explaining MRI result to POC Francesca.
[2024-07-09] VITALS (104 sets, daily range): BP systolic 94–164; BP diastolic 44–91; PULSE 68–120; RESP 0–44; TEMP 35.9–37.4; O2SAT 80–100; BMI 26.2
[2024-07-09] MEDS: DEXMEDETOMIDINE 200 MCG IVPB 200 MCG/50 ML BOTTLE 25.2 MCG IV ×12 (00:56→23:12)
[2024-07-09] MEDS: PROPOFOL 1,000 MG IVPB 1,000 MG/100 ML VIAL 22.5 MG IV ×2 (04:01→09:16)
[2024-07-09] MEDS: Artificial Tears 225 DROP/15 ML BTL BOTH EYES ×4 (05:00→20:39)
[2024-07-09] MEDS: clonazePAM 0.5 MG TABLET 2 MG PO ×3 (05:00→21:24)
[2024-07-09] MEDS: SEVELAMER CARBONATE 800 MG TABLET PO ×3 (05:00→21:24)
[2024-07-09] MEDS: PHENOBARBITAL ELIX 20 MG/5 ML 90 MG GT ×2 (05:17→13:24)
[2024-07-09 05:22] LABS: Base Excess 12 (-3-3); HCO3 42 mEq/L (20-26); O2 Saturation 100 % (91-98); PCO2 94 mmHg (32.0-48.0); PO2 149 mmHg (83-108); pH, Arterial 7.26 (7.35-7.45)
[2024-07-09 05:32] LABS: Allen Test Performed/OK; Inspired Oxygen, FIO2 70 %; Puncture Site Left Radial
[2024-07-09 05:47] LABS: Basophils % (Auto) 0 % (0-2.5); Eosinophils % (Auto) 0 % (0-10); Hematocrit 28.4 % (41.0-53.0); Immature Granulocytes % (Auto) 2 % (0-0); Lymphocytes # (Auto) 0.4 Thou/mm3 (1.0-4.8); Lymphocytes % (Auto) 8 % (10-50); Mean Corpuscular HGB Conc 28.9 g/dl (31.0-37.0); Mean Corpuscular Hemoglobin 24.8 pg (25.0-35.0); Mean Corpuscular Volume 86 fL (80-100); Monocytes # (Auto) 0.1 Thou/mm3 (0.0-0.8); Monocytes % (Auto) 3 % (0-12); Neutrophils # (Auto) 3.9 Thou/mm3 (1.8-7.7); Neutrophils % (Auto) 87 % (37-80); Nucleated Red Blood Cell % 0 /100 WBC (0); Platelet Count 264 Thou/mm3 (140-440); RDW Standard Deviation 77.2 fL (35.1-43.9); White Blood Count 4.5 Thou/mm3 (3.8-10.6)
[2024-07-09 05:50] LABS: Hemoglobin 8.2 g/dL (13.5-16.0)
--- NOTE | 2024-07-09 06:00 | XR_ITS ---
Examination: AP chest single view Technique: AP portable upright chest single view Exam date and time: July 09, 2024 [id number] hrs. Comparison July 07, 2024 Indications: History pneumonia ARDS hypoxic respiratory failure Findings: No change in severe bilateral lung opacity Tracheostomy tube tip 4.3 cm above sunil No pneumothorax No significant cardiac enlargement Impression: No change in severe bilateral pneumonia ARDS pattern
[2024-07-09 06:38] LABS: Alanine Aminotransferase 362 U/L (10-49); Albumin, Serum 2.8 gm/dL (3.5-5.0); Alkaline Phosphatase 504 U/L (46-116); Anion Gap 1 (7-16); Aspartate Amino Transferase 229 U/L (0-34); BUN/Creatinine Ratio 37 Ratio (12-20); Bilirubin,Total < 0.2 mg/dL (0.3-1.2); Blood Urea Nitrogen 22 mg/dL (9-23); Calcium 8.2 mg/dL (8.3-10.6); Calcium (Corrected) 9.2 mg/dL (8.5-10.1); Carbon Dioxide 39.8 mMol/L (20.0-31.0); Chloride 94 mMol/L (98-107); Creatinine (Component) 0.6 mg/dL (0.6-1.3); Estimated Creatinine Clearance 150.6 mL/min (>60); Globulin 2.9 gm/dL (2.3-3.5); Glucose 159 mg/dL (74-106); Magnesium 2.1 mg/dL (1.6-2.6); Osmolality,Calculated 276 (275-295); Phosphorous 5.2 mg/dL (2.4-5.1); Potassium 5.9 mMol/L (3.4-5.1); Sodium 135 mMol/L (136-145); Total Protein 5.7 gm/dL (5.7-8.2); eGFR > 60 See Note
[2024-07-09] MEDS: DEXTROSE 50%-WATER INJ 50 ML SYRINGE IV (07:26)
[2024-07-09] MEDS: INSULIN HUM REGULAR 1 UNIT/0.01 ML (PER UNIT) 5 UNIT IV (07:26)
[2024-07-09] MEDS: SOD POLYSTYRENE SULFON SUSP 15 GM/60 ML BTL PO ×2 (07:27→11:39)
[2024-07-09] MEDS: fentaNYL 2,500 MCG/250 ML BAG 2,500 MCG/250 ML BAG 30 MCG IV (07:42)
[2024-07-09] MEDS: PANTOPRAZOLE INJ 40 MG VIAL IV (08:21)
[2024-07-09] MEDS: RALTEGRAVIR 400 MG TABLET NG ×2 (08:21→20:39)
[2024-07-09] MEDS: Ferrous Sulfate 300 MG/5 ML UDC GT (08:21)
[2024-07-09] MEDS: QUEtiapine FUMARATE 100 MG TABLET PO ×2 (08:21→20:39)
[2024-07-09] MEDS: EMTRICITABINE 200 MG/TENOFOVIR 300 MG TAB (NON-FORM) 1 TAB PO (08:21)
[2024-07-09] MEDS: TRIMETHOPRIM PO (08:27)
[2024-07-09] MEDS: SULFAMETHOXAZOLE PO (08:27)
[2024-07-09] MEDS: ASPIRIN EC 81 MG TABEC PO (11:36)
[2024-07-09] MEDS: ATORVASTATIN CALCIUM 20 MG TABLET 80 MG PO (11:47)
[2024-07-09 12:21] LABS: Potassium 4.5 mMol/L (3.4-5.1); Thyroid Stimulating Hormone 3.61 uIU/mL (0.55-4.78)
[2024-07-09] MEDS: CALCIUM CARBONATE 600 MG TABLET GT (13:18)
--- NOTE | 2024-07-09 15:58 | PD.RESPRO ---
Documentation for date of: 07/09/24 Subjective Subjective Interval history: 07/07/24: The patient was evaluated and examined at the bedside this morning again. His heart rate was in the range of 110-130s, and his oxygen saturation was between 87-90, in 60%. Later, the patient started desaturating in 80s, and was given propofol push followed by midazolam push to control excessive work of breathing and tachycardia. The patient was also shivering and given the possibility of an infection, blood, urine and sputum cultures were ordered. 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 CT head was considered but given he is on a stable condition we will defer until his condition improves. He was also added on oral liquid morphine 15 Mg 3 times daily. The patient's recent condition was updated to the family members who presented later at bedside. 07/08/2024: The patient was evaluated and examined at the bedside this morning. He was saturating 99% on 70% FiO2. He is FiO2 was further trended down to 50%, and patient was saturating 92 to 93%. Yesterday he had possible withdrawal syndrome leading to fever and respiratory distress and this morning his white count trended up to 19.1. His potassium was 5.9, and was given D50 IV 50 mL x 1, insulin 5 units IV x 1, calcium gluconate 1 g x 1, and Kayexalate 30 g x 1. We are pending all blood, urine and sputum cultures. His liver enzymes has been trending up, likely in the setting of possible withdrawal syndrome. Goals of care discussion was done with family members, and as the patient's condition mildly improved from yesterday, the family members requested continuing medical management at this time. We will get MRI brain to further evaluate any intracranial etiology. 07/09/2024: The patient was evaluated and examined at the bedside this morning. He was saturating 99% on FiO2 70%, and his ventilator setting was changed to spontaneous pressure support, further changing to SIMV with tidal volume 500 cc. He has been saturating around 90%. He also received 30 g of Kayexalate x 1, and his phenobarbital was increased to 180 Mg 3 times daily, added methadone 10 mg 3 times daily, and gabapentin 200 Mg twice daily. We will continue to taper down his IV sedatives. We will try for SAT on Thursday. He was found to have Large area of restricted diffusion in the left frontal parietal white matter and small foci in the right parietal white matter most consistent with acute infarction, on MRI. We will start him on aspirin 81 Mg daily and atorvastatin 80mg daily. Exam Vital Signs Temp Pulse Resp BP Pulse Ox O2 Del Method O2 Flow Rate 99.0 F 68 32 H 122/58 L 96 Mechanical Ventilation 40 07/09/24 15:00 07/09/24 15:46 07/09/24 15:46 07/09/24 15:00 07/09/24 15:46 07/09/24 15:00 06/09/24 12:16 FiO2 60 07/09/24 15:46 Narrative Exam GEN: Critically ill, not acutely distressed, sedated and mechanically ventilated. Neuro: Deferred due to sedation. HEENT: NCAT, tracheostomy tube on appropriate position, mild abrasion over lower lips, improving. CVS: Mildly tachycardic, no M/R/G. No JVD Respi: Mechanically ventilated, b/l breath sounds heard, significant rhonchi in all lung rosas, ABD: Soft, no grimace to palpation, bowel sounds present in all 4 quadrants, PEG tube in appropriate place Skin: warm, dry and intact. Extremities: Pulses 2+ in all extremities, bilateral upper and lower extremity edema, ruptured vesicles 1-2 cm on the rt forearm surface that have been healing. Objective Labs 07/17/24 05:00 07/18/24 04:51 Labs: Laboratory Results - last 24 hr 07/09/24 07/09/24 07/09/24 04:53 05:32 11:39 WBC 4.5 D RBC 3.30 L Hgb 8.2 L Hct 28.4 L MCV 86 MCH 24.8 L MCHC 28.9 L RDW Std Deviation 77.2 H Plt Count 264 D Neut % (Auto) 87 H Lymph % (Auto) 8 L Hale % (Auto) 3 Eos % (Auto) 0 Baso % (Auto) 0 Neut # (Auto) 3.9 Lymph # (Auto) 0.4 L Hale # (Auto) 0.1 Eos # (Auto) 0.0 Baso # (Auto) 0.0 Immature Gran # (Auto) 0.10 H Absolute Nucleated RBC 0.00 Immature Gran % 2 H Nucleated RBC % 0 Puncture Site Left Radial ABG pH 7.26 L ABG pCO2 94 H* ABG pO2 149 H ABG HCO3 42 H ABG O2 Saturation 100 H ABG Base Excess 12 H FiO2 70 Sodium 135 L Potassium 5.9 H 4.5 D Chloride 94 L Carbon Dioxide 39.8 H Anion Gap 1 L BUN 22 Creatinine 0.6 Estim Creat Clear Calc 150.6 eGFR > 60 BUN/Creatinine Ratio 37 H Glucose 159 H Calculated Osmolality 276 Calcium 8.2 L Corrected Calcium 9.2 Phosphorus 5.2 H Magnesium 2.1 Total Bilirubin < 0.2 L AST 229 H ALT 362 H Alkaline Phosphatase 504 H D Total Protein 5.7 Albumin 2.8 L Globulin 2.9 Albumin/Globulin Ratio 1.0 L TSH 3.61 ABG Interpretation ABG results: 05/27/24 05/29/24 05/29/24 23:37 10:44 22:08 ABG pH 7.51 H 7.50 H 7.48 H ABG pCO2 28 L 32 32 ABG pO2 75 L 79 L 145 H D ABG HCO3 23 25 24 ABG O2 Saturation 96 95 98 ABG Base Excess 0 2 1 05/30/24 05/31/24 06/04/24 08:45 04:54 02:10 ABG pH 7.47 H 7.45 7.45 ABG pCO2 35 38 36 ABG pO2 86 D 82 L 139 H ABG HCO3 26 26 25 ABG O2 Saturation 97 96 98 ABG Base Excess 2 2 1 06/04/24 06/05/24 06/05/24 18:16 11:36 12:59 ABG pH 7.44 7.11 L* D 7.20 L ABG pCO2 36 94 H* D 68 H D ABG pO2 80 L D 150 H D 121 H D ABG HCO3 24 30 H 26 ABG O2 Saturation 94 97 97 ABG Base Excess 0 -2 -3 06/05/24 06/06/24 06/06/24 19:25 04:13 15:27 ABG pH 7.22 L 7.27 L 7.30 L ABG pCO2 64 H 57 H 60 H ABG pO2 122 H 153 H D 74 L D ABG HCO3 26 26 29 H ABG O2 Saturation 97 99 H 92 ABG Base Excess -3 -2 2 06/07/24 06/07/24 06/08/24 03:55 09:59 04:20 ABG pH 7.41 D 7.43 7.45 ABG pCO2 56 H 55 H 50 H ABG pO2 293 H D 78 L D 75 L ABG HCO3 36 H 37 H 35 H ABG O2 Saturation 99 H 95 94 ABG Base Excess 10 H 11 H 10 H 06/08/24 06/08/24 06/08/24 11:05 11:50 13:18 ABG pH 7.17 L* D 7.10 L* 7.15 L* ABG pCO2 95 H* D 115 H* D 88 H* D ABG pO2 89 75 L 72 L ABG HCO3 34 H 36 H 31 H ABG O2 Saturation 92 84 L 85 L ABG Base Excess 3 4 H 0 06/08/24 06/09/24 06/09/24 17:02 01:33 03:15 ABG pH 7.18 L* 7.22 L 7.27 L ABG pCO2 50 H D 91 H* D 82 H* ABG pO2 82 L 105 D 86 ABG HCO3 19 L 37 H 38 H ABG O2 Saturation 93 97 95 ABG Base Excess -9 L 7 H 9 H 06/09/24 06/09/24 06/10/24 05:08 12:52 04:40 ABG pH 7.31 L 7.33 L 7.30 L ABG pCO2 75 H* 57 H D 78 H* D ABG pO2 97 158 H D 65 L D ABG HCO3 38 H 30 H 38 H ABG O2 Saturation 97 99 H 90 L ABG Base Excess 10 H 3 9 H 06/10/24 06/11/24 06/12/24 09:40 04:19 04:15 ABG pH 7.27 L 7.35 7.48 H D ABG pCO2 88 H* D 86 H* 63 H D ABG pO2 65 L 70 L 76 L ABG HCO3 40 H 48 H 47 H ABG O2 Saturation 89 L 93 95 ABG Base Excess 10 H 19 H 21 H 06/13/24 06/14/24 06/15/24 07:22 04:32 03:45 ABG pH 7.46 H 7.48 H 7.46 H ABG pCO2 56 H 40 D 37 ABG pO2 80 L 64 L 71 L ABG HCO3 39 H 30 H 27 H ABG O2 Saturation 95 92 94 ABG Base Excess 13 H 6 H 3 06/15/24 06/15/24 06/15/24 10:17 12:20 14:20 ABG pH 7.01 L* D 7.00 L* 7.03 L* ABG pCO2 122 H* D 130 H* 125 H* ABG pO2 91 D 88 82 L ABG HCO3 31 H 32 H 33 H ABG O2 Saturation 88 L 88 L 87 L ABG Base Excess -3 -2 -1 06/15/24 06/15/24 06/16/24 15:55 20:39 00:35 ABG pH 7.03 L* 7.08 L* 7.10 L* ABG pCO2 121 H* 116 H* 118 H* ABG pO2 99 117 H 102 ABG HCO3 32 H 34 H 37 H ABG O2 Saturation 93 97 96 ABG Base Excess -1 2 4 H 06/16/24 06/16/24 06/17/24 04:45 08:55 05:06 ABG pH 7.17 L* 7.28 L D 7.33 L ABG pCO2 112 H* 88 H* D 96 H* ABG pO2 155 H D 98 D 126 H D ABG HCO3 41 H 41 H 50 H ABG O2 Saturation 99 H 98 99 H ABG Base Excess 9 H 12 H 21 H 06/17/24 06/17/24 06/18/24 10:58 13:55 04:16 ABG pH 7.29 L 7.29 L 7.33 L ABG pCO2 106 H* D 106 H* 86 H* D ABG pO2 58 L* D 61 L 77 L ABG HCO3 51 H 51 H 45 H ABG O2 Saturation 87 L 88 L 95 ABG Base Excess 21 H 21 H 17 H 06/19/24 06/20/24 06/21/24 04:18 04:49 04:06 ABG pH 7.42 7.36 7.44 ABG pCO2 63 H D 74 H* D 61 H D ABG pO2 66 L 55 L* 202 H D ABG HCO3 41 H 42 H 42 H ABG O2 Saturation 93 87 L 100 H ABG Base Excess 15 H 14 H 16 H 06/22/24 06/23/24 06/24/24 04:18 04:29 04:25 ABG pH 7.45 7.46 H 7.29 L D ABG pCO2 57 H 53 H 80 H* D ABG pO2 60 L D 99 D 88 ABG HCO3 40 H 38 H 38 H ABG O2 Saturation 91 99 H 96 ABG Base Excess 14 H 13 H 9 H 06/24/24 06/25/24 06/25/24 08:50 05:13 11:02 ABG pH 7.40 D 7.46 H Cancelled ABG pCO2 61 H D 53 H Cancelled ABG pO2 110 H D 66 L D Cancelled ABG HCO3 38 H 38 H Cancelled ABG O2 Saturation 99 H 94 Cancelled ABG Base Excess 12 H 13 H Cancelled 06/25/24 06/26/24 06/26/24 15:53 04:13 11:40 ABG pH 7.39 7.41 7.46 H ABG pCO2 53 H 48 43 ABG pO2 55 L* 58 L* 58 L* ABG HCO3 32 H 30 H 31 H ABG O2 Saturation 86 L 89 L 92 ABG Base Excess 6 H 5 H 6 H 06/27/24 06/28/24 06/28/24 04:17 04:24 06:22 ABG pH 7.48 H 7.27 L D 7.22 L ABG pCO2 39 72 H* D 83 H* D ABG pO2 49 L* 71 L D 82 L ABG HCO3 29 H 33 H 34 H ABG O2 Saturation 87 L 93 95 ABG Base Excess 5 H 5 H 4 H 06/28/24 06/29/24 06/30/24 10:18 04:21 07:57 ABG pH 7.32 L D 7.41 7.41 ABG pCO2 64 H D 63 H 62 H ABG pO2 76 L 81 L 59 L* D ABG HCO3 33 H 40 H 40 H ABG O2 Saturation 95 97 88 L ABG Base Excess 6 H 14 H 13 H 07/02/24 07/03/24 07/04/24 04:05 04:45 04:11 ABG pH 7.46 H 7.43 7.38 ABG pCO2 53 H 58 H 67 H ABG pO2 77 L 100 D 73 L D ABG HCO3 38 H 39 H 40 H ABG O2 Saturation 96 98 94 ABG Base Excess 12 H 13 H 13 H 12/07/06/24 07/09/24 04:40 04:08 04:53 ABG pH 7.30 L 7.42 D 7.26 L ABG pCO2 87 H* D 67 H D 94 H* ABG pO2 132 H D 64 L D 149 H ABG HCO3 43 H 43 H 42 H ABG O2 Saturation 99 H 92 100 H ABG Base Excess 14 H 17 H 12 H Quality Measures Quality Measures sepsis Current suspected stage: ruled out Possible source: pulmonary, GI tract/intra-abdominal, genitourinary and skin/soft tissue Blood cultures ordered: yes Antibiotic ordered: No Assessment & Plan Assessment Current Active Medications: Generic Name Dose Route Start Last Admin Trade Name Freq PRN Reason Stop Dose Admin Acetaminophen 650 mg 06/26/24 15:16 07/07/24 13:12 Acetaminophen Munira 325 Mg/10 Ml Udc GT 07/26/24 15:15 650 mg Q4HR PRN Administration Pain Or Fever > 100.3 Artificial Tears 1 drop 06/18/24 12:00 07/09/24 11:39 Artificial Tears 225 Drop/15 Ml Btl BOTH EYES 07/18/24 11:59 1 drop QID JUAN JOSE Administration Aspirin 81 mg 07/09/24 11:00 07/09/24 11:36 Aspirin Ec 81 Mg Tabec PO 08/08/24 10:59 81 mg QDAY JUAN JOSE Administration Atorvastatin Calcium 80 mg 07/10/24 21:00 Atorvastatin Calcium 20 Mg Tablet PO 08/09/24 20:59 HS JUAN JOSE Calcium Carbonate 600 mg 06/28/24 13:00 07/09/24 13:18 Calcium Carbonate 600 Mg Tablet GT 07/28/24 12:59 600 mg QDAY@1300 JUAN JOSE Administration Clonazepam 2 mg 06/28/24 08:45 07/09/24 13:24 Clonazepam 0.5 Mg Tablet PO 07/19/24 08:44 2 mg TID JUAN JOSE Administration Docusate Sodium 100 mg 06/25/24 09:13 Docusate Sod Liqd 100 Mg/10 Ml Udc PO 07/22/24 08:59 BID PRN Constipation Protocol Emtricitabine/Tenofovir 1 tab 07/06/24 11:30 07/09/24 08:21 Emtricitabine 200 Mg/Tenofovir 300 Mg Tab (Non-Form) PO 07/13/24 11:29 1 tab QDAY JUAN JOSE Administration Ferrous Sulfate 300 mg 07/02/24 10:00 07/09/24 08:21 Ferrous Sulfate 300 Mg/5 Ml Udc GT 07/23/24 09:59 300 mg QDAY JUAN JOSE Administration Gabapentin 200 mg 07/09/24 21:00 Gabapentin 100 Mg Capsule GT 08/08/24 20:59 BID JUAN JOSE Norepinephrine/Dextrose 8 mg in 250 mls @ 6.319 mls/hr 06/30/24 04:17 07/09/24 10:00 Levophed In D5w 8mg/250ml IV 07/30/24 04:16 0.03 mcg/kg/min .Q24H PRN 3.791 mls/hr PER PROTOCOL Titration Protocol 0.05 MCG/KG/MIN Propofol 1,000 mg in 100 mls @ 2.25 mls/hr 07/04/24 06:39 07/09/24 14:58 Diprivan Ivpb IV 08/03/24 06:38 25 mcg/kg/min .Q24H PRN 11.25 mls/hr PER PROTOCOL Titration Protocol 5 MCG/KG/MIN Dexmedetomidine/Sodium Chloride 200 mcg in 50 mls @ 3.6 mls/hr 07/04/24 06:59 07/09/24 14:56 Precedex Ivpb IV 08/03/24 06:58 1.4 mcg/kg/hr .[id number] PRN 25.2 mls/hr Per PROTOCOL Administration Protocol 0.2 MCG/KG/HR Fentanyl Citrate 2,500 mcg in 250 mls @ 2.5 mls/hr 07/05/24 14:45 07/09/24 14:00 Sublimaze Inj 2,500 Mcg/250 Ml Bag IV 07/10/24 14:44 150 mcg/hr .Q24H PRN 15 mls/hr PER PROTOCOL Titration Protocol 25 MCG/HR Heparin Sodium/Dextrose 25,000 unit in 250 mls @ 12.87 mls/hr 07/06/24 13:45 07/08/24 15:11 Heparin In D5w Ivpb IV 07/20/24 13:44 0 units/kg/hr .[id number] JUAN JOSE 0 mls/hr Titration Protocol 18 UNITS/KG/HR Methadone HCl 10 mg 07/09/24 15:00 Methadone Solution 5 Mg/5 Ml Udc GT 07/14/24 14:59 Q8HR JUAN JOSE Methylprednisolone Sodium Succinate 40 mg 07/09/24 09:00 07/09/24 08:21 Methylprednisolone Sod Succ 40 Mg Vial IVP 07/16/24 08:59 40 mg QDAY JUAN JOSE Administration Midazolam HCl 4 mg 07/07/24 11:02 07/07/24 19:34 Midazolam Inj 1 Mg/Ml Vial 2 Ml IV 07/12/24 11:01 4 mg Q3HR PRN Administration Severe agitation, tachycardia, Protocol Pantoprazole Sodium 40 mg 07/07/24 09:32 07/09/24 08:21 Pantoprazole Inj 40 Mg Vial IV 08/06/24 09:31 40 mg QDAY JUAN JOSE Administration Phenobarbital 180 mg 07/09/24 22:00 Phenobarbital Elix 20 Mg/5 Ml Udc GT 07/23/24 21:59 TID JUAN JOSE Protocol Quetiapine Fumarate 100 mg 06/28/24 21:00 07/09/24 08:21 Quetiapine Fumarate 100 Mg Tablet PO 07/25/24 20:59 100 mg BID JUAN JOSE Administration Raltegravir 400 mg 07/06/24 11:30 07/09/24 08:21 Raltegravir 400 Mg Tablet NG 07/13/24 11:29 400 mg BID JUAN JOSE Administration Sevelamer Carbonate 800 mg 07/08/24 07:30 07/09/24 13:24 Sevelamer Carbonate 800 Mg Tablet PO 08/07/24 07:29 800 mg TID JUAN JOSE Administration Trimethoprim/Sulfamethoxazole 20 ml 06/23/24 09:00 07/09/24 08:27 Trimethoprim/Sulfa Susp 1 Ml PO 06/22/25 12:00 20 ml QDAY JUAN JOSE Administration Plan 39-year-old male patient with no PMHx who initially presented to [facility] 05/[facility]/2024 with a chief complaint of shortness of breath and cough, with associated chills, body aches, generalized weakness, fever, and night sweats beginning weeks prior but progressively worsening over a few days is currently being treated for acute hypoxic respiratory failure secondary to PCP pneumonia that was complicated by ventilator associated pneumonia. Patient is currently on tracheostomy tube and mechanically ventilated. 07/09/2024: The patient was evaluated and examined at the bedside this morning. He was saturating 99% on FiO2 70%, and his ventilator setting was changed to spontaneous pressure support, further changing to SIMV with tidal volume 500 cc. He has been saturating around 90%. He also received 30 g of Kayexalate x 1, and his phenobarbital was increased to 180 Mg 3 times daily, added methadone 10 mg 3 times daily, and gabapentin 200 Mg twice daily. We will continue to taper down his IV sedatives. We will try for SAT on Thursday. He was found to have Large area of restricted diffusion in the left frontal parietal white matter and small foci in the right parietal white matter most consistent with acute infarction, on MRI. We will start him on aspirin 81 Mg daily and atorvastatin 80mg daily. NEURO Patient is sedated and mechanically ventilated through tracheostomy tube. 06/05/2024 Patient was intubated, sedated, and paralyzed for ARDS. Currently on enteral sedatives clonazepam 2 Mg 3 times daily and phenobarbital increased to 180 Mg 3 times daily, started on Methadone 10mg TID and Gabapentin 200mg BID -Patient on fentanyl, presidex and propofol drip, we will wean off slowly #Rt Patietal ischemic Stroke MRI on 07/08 Large area of restricted diffusion in the left frontal parietal white matter and small foci in the right parietal white matter most consistent with acute infarction -Started on aspirin 81mg daily and atorvastatin 80mg daily at night. #Fever, resolved #Withdrawal syndrome, stable Multiple cultures has been negative -Repeat influenza and COVID test on 07/04 negative -Repeat blood, urine and sputum culture are negative for 24 hours, pending final report -Treat underlying condition -Tylenol as needed #Severe shivering, resolved CARDIO #Right subclavian and axillary vein DVT. -Doppler US right upper extremity 06/17/24: revealed RUE DVT -On Heparin Drip, can be switched to oral anticoagulants once hemodynamially stable. #Sinus tachycardia Tachycardia most likely secondary to acute respiratory distress syndrome contributed by withdrawal while tapering the dose of IV sedatives -Continue to treat underlying cause #Shock Most likely 2/2 sedation. BC has been negative and on appropriate antibiotics Patient presented with septic shock secondary to severe extensive bilateral pneumonia. After resolution of initial septic shock, patient developed new hypotension, tachycardia, tachypnea, fevers indicated of septic shock. -Pressor support as needed -Linezolid (started 06/27-07/04) -Meropenem (started 06/27-07/04) -Urine (06/27) showed resistant staph epi -Blood (06/27) showed resistant Staphylococcus haemolyticus -follow up repeat blood cultures and urine cultures -taper down sedatives as tolerated PULM #Chronic hypoxic respiratory failure 2/2 # Acute respiratory distress syndrome in the setting of post PCP pneumonia state Secondary to #Bilateral pneumocystis jirovecii pneumonia, resolved #Healthcare associated pneumonia, resolved, resolved #Ventilator associated pneumonia, resolved #S/P Tracheostomy #Pneumomediastinum, resolved Patient presented with dyspnea and cough, requiring 4L NC on first ED evaluation, and history of chills, body aches, generalized weakness, fever, and night sweats progressively worsening over the prior weeks. Approx 20-pack year smoking history, occasional marijuana. 06/17/2024 oxygenation and hypercapnia improved 06/30/2024: CT chest/abdomen/pelvis revealed pneumomediastinum On linezolid 600 mg q12h 06/15/24-06/22/24 Plan: -Linezolid (started 06/27-07/04) and Meropenum (started 06/27-07/04) -Continue with daily Bactrim -ABG as needed -Continue sedation RAAS scale -1. -Cannot proceed with Proning as patient has tracheostomy tube placed -Repeat Influenza and COVID19 is negative GI GI prophylaxis: IV pantoprazole 40 Mg daily #Elevated LFTs 2/2 HIV DDx: adverse affect of drugs, we had discontinued oxycodone previously, and phenobarbitol Liver enzymes started trending down after discontinuing oxycodone and phenobarbitol. liver US 05/30/2024 showed normal gallbladder and hepatomegaly without lesions or evidence of obstructions. Hep panel negative. LFTs downtrending Plan: -Continue monitoring #Hypertriglyceridemia secondary to propofol use -We repeated lipid panel on 06/30/2024- 183 -Started on propofol, and we will continue to trend TGL NEPHRO #Central diabetes insipidus, resolved #Hypophosphatemia,resolved #WILL, resolved #Hyperkalemia---Resolved #Hyperphosphatemia, resolved #Mild hyponatremia Secondary to SIADH due to acute hypoxic respiratory failure leading to pulmonary distress -Continue to monitor #Hyperphosphetemia -Monitor and replete as needed #NAGMA #Primary Respiratory acidosis partially compensated by metabolic alkalosis Secondary to increased work of breathing and increased RR 2/2 chronic hypoxic respiratory failure and chronic respiratory distress syndrome in the setting of tapering down of IV sedatives -ABGs 07/09 revealed pH of 7.26, pCO2 94, pO2 149 and bicarb 42 -We will treat the underlying cause HEME #Leukocytosis, improved #Microcytic anemia 2/2 STEPHY and Inflammatory anemia Stable, has not required any transfusions this admission thus far. Clinically no evidence of bleeding. Iron panel shows iron 17, TIBC 262, iron saturation 6, unsaturated iron binding 245. Peripheral blood film confirms microcytic hypochromic anemia with target cells. Also daily lab draws contributing. Plan: -Started on oral ferrous sulfate 300 Mg daily -Monitor H&H. Transfusing for Hgb <7 #Thrombocytosis, resolved Likely reactive in the setting of withdrawal syndrome -Continue to monitor ENDO #Hypoglycemia, resolved ID #Bilateral pneumocystis pneumonia, resolved #Healthcare associated pneumonia, resolved #Ventilator associated pneumonia, resolved #PCP pneumonia prophylaxis Negative studies: Cocci IgM and IgG, Hepatitis panel, Syphilis, Legionella, H.flu, N.meningitidis, Strep B, Strep pneumoniae, COVID, RSV, Flu A & B. TB quantiferon GOLD-indeterminate, however 06/05 AFB negative, CMV IgM, cryptococcal antigen negative. G6PD levels came back normal for consideration of dapsone alternative to Bactrim if needed. Patient completed 5 day course of azithromycin, 16 days of Zosyn. See Pulm for timeline of antimicrobial coverage. On 06/27 patient developed new septic shock Plan: -Antibiotcs Bactrim for prevention of PCP pneumonia in the setting of CD4 count of 116 -Linezolid and meropenum restarted on 06/27/2024-07/04/24 -Urine ackerman port grew GPC, Staph epidermidis that is MDR, sensitive to linezolid. -Fungal cultures from BAL pending, follow-up on results -Blood cultures from 06/26/2024 and 06/27/2024, negative so far, cultures drawn on 06/29/2024 is pending -Follow up blood, sputum, and urine cultures were negative -Repeat blood, urine, sputum cultures were ordered on 07/07/2024- negative so far #AIDS/HIV Patient has Stage 4 HIV, AIDS-defining illness with opportunistic infection. 06/07/2024 Bronchoalveolar lavage cytology shows Pneumocystis jirovecii. Also other fungi, possibly Kassandra. Kassandra is most likely a contaminant. Blood [id number] also positive. 06/08/2024 HIV quant 5.66 million copies. HIV 1 positive confirmed. 06/09/2024 Patient's decision maker, Francesca, was informed of diagnosis due to critical state of patient. Absolute CD4 count 87 and 22% on 06/02. History/risk factors: History of injection anabolic androgenic steroid and testosterone use, possible unclean needles. History of incarceration (unknown time). Tattoos received as a teenager. Has 1 female sexual partner last 5 years, denies others. -Continue HAART: emtricitabine / tenofovir (Truvada) and raltegravir initiated 06/09/24 -Patient is not aware of his diagnosis as he has been intubated and sedated before results returned. Will require complete education and counseling on the disease if his mental status and clinical condition improves. #IRIS The patient has been on HAART for around 4 weeks and given the presentation of ARDS, with negative BC, positive for fever, and on appropriate antibiotics, still having respiratory distress with breathy stacking there is a high possibility of IRIS -Continue on methylprednisone 40mg IV BID until 07/08/2024, Daily from 07/09- MSK #Elevated creatine kinase -Down trended SKIN #Lower lip abrasion #Right forearm blisters -Improving -Monitor closely Dispo: Patient was admitted to ICU unit for the management of acute hypoxic respiratory failure 2/2 PCP pneumonia in the 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 The patient is being downgraded to telemetry unit for further management of chronic hypoxic respiratory failure s/p tracheostomy. DVT prophylaxis: On heparin drip for treatment of right upper extremity DVT GI prophylaxis: Pantoprazole 40 mg IV qday Diet: Tube feeds Ackerman: No, condom cath Lines: Peripheral IV, removed rt femoral central line on 06/28/24 Antibiotics: Bactrim CODE STATUS: DNR/DNI The patient's management plan was discussed with my attending physician MD Jeff Hamilton MD, PGY2 Attending Provider Attestation/Addendum Patient seen and examined with above resident, Jeff Pacheco MD. I agree with the findings, assessment, and plan of care as documented except for any differences below. Patient has been proven difficult to wean from mechanical elation sedation. Will start new regimen with the addition of phenobarbital and methadone as well as gabapentin to wean off propofol and fentanyl drips. Notably with significant fever with discontinuation of sedatives suggesting noninfectious cause likely in the setting of withdrawal most likely from opiates. Will plan to load with additional agents for both optimization of KIERRA and new receptors before trying to again wean off sedation. MRI was done by team loss 48 hours showing significant bilateral left greater than right frontal and parietal acute infarctions. Patient was started on aspirin and atorvastatin appropriately. Remains on anticoagulation for known history of DVT. Patient completed antibiotic course and is now on prophylaxis with Bactrim with slow taper of steroids for IRIS. Maintained on Ortega therapy with improvement in renal and hepatic function throughout his hospitalization despite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
[2024-07-09] MEDS: METHADONE SOLUTION 5 MG/5 ML UDC 10 MG GT ×2 (16:40→21:47)
[2024-07-09] MEDS: GABAPENTIN 100 MG CAPSULE GT (16:41)
[2024-07-09] MEDS: PROPOFOL 1,000 MG IVPB 1,000 MG/100 ML VIAL 11.25 MG IV (18:46)
[2024-07-09] MEDS: GABAPENTIN 100 MG CAPSULE 200 MG GT (20:39)
--- NOTE | 2024-07-09 21:23 | PD.NEUROPROG ---
Documentation for date of: 07/09/24 Subjective Subjective Interval history: Patient is in ICU, coming down on the fentanyl, still on Precedex, propofol and methadone. He has a trach in place. Exam - Neurology Vital Signs Temp Pulse Resp BP Pulse Ox O2 Del Method O2 Flow Rate 99.0 F 109 H 32 H 107/59 L 96 Mechanical Ventilation 40 07/09/24 20:00 07/09/24 20:30 07/09/24 20:00 07/09/24 20:30 07/09/24 20:30 07/09/24 15:00 06/09/24 12:16 FiO2 85 07/09/24 20:00 Narrative Exam GENERAL APPEARANCE: Well hydrated, well-nourished in no acute distress. HEENT: Normocephalic, atraumatic, extraocular movements intact. Pupils: Equal reacting to light and accommodation NECK: Supple, no JVD or bruits. CARDIOVASULAR: Heart: S1, S2 heard, regular without S3-S4 or murmur no rubs or gallops. LUNGS/CHEST: Clear to auscultation bilaterally. No rails, rhonchi, or wheezing. Normal inspection. ABDOMEN: Soft, nontender, with normal bowel sounds. No pulsatile masses. No rebound, rigidity, or guarding. Normal inspection and palpation. EXTREMITIES: Normal inspection and palpation. No edema, clubbing or cyanosis. SKIN: Warm and dry without rashes. Normal inspection. MUSCULOSKELETAL: No cervical, thoracic, lumbar or midline bony tenderness. Normal inspection. NEURO: Patient is on sedation no signs of meningeal irritation noted. PSYCHIATRIC: Limited Objective Labs 07/09/24 05:32 07/09/24 11:39 Labs: Laboratory Results - last 24 hr 07/09/24 07/09/24 07/09/24 04:53 05:32 11:39 WBC 4.5 D RBC 3.30 L Hgb 8.2 L Hct 28.4 L MCV 86 MCH 24.8 L MCHC 28.9 L RDW Std Deviation 77.2 H Plt Count 264 D Neut % (Auto) 87 H Lymph % (Auto) 8 L [place] % (Auto) 3 Eos % (Auto) 0 Baso % (Auto) 0 Neut # (Auto) 3.9 Lymph # (Auto) 0.4 L [place] # (Auto) 0.1 Eos # (Auto) 0.0 Baso # (Auto) 0.0 Immature Gran # (Auto) 0.10 H Absolute Nucleated RBC 0.00 Immature Gran % 2 H Nucleated RBC % 0 Puncture Site Left Radial ABG pH 7.26 L ABG pCO2 94 H* ABG pO2 149 H ABG HCO3 42 H ABG O2 Saturation 100 H ABG Base Excess 12 H FiO2 70 Sodium 135 L Potassium 5.9 H 4.5 D Chloride 94 L Carbon Dioxide 39.8 H Anion Gap 1 L BUN 22 Creatinine 0.6 Estim Creat Clear Calc 150.6 eGFR > 60 BUN/Creatinine Ratio 37 H Glucose 159 H Calculated Osmolality 276 Calcium 8.2 L Corrected Calcium 9.2 Phosphorus 5.2 H Magnesium 2.1 Total Bilirubin < 0.2 L AST 229 H ALT 362 H Alkaline Phosphatase 504 H D Total Protein 5.7 Albumin 2.8 L Globulin 2.9 Albumin/Globulin Ratio 1.0 L TSH 3.61 ABG Interpretation ABG results: 05/27/24 05/29/24 05/29/24 23:37 10:44 22:08 ABG pH 7.51 H 7.50 H 7.48 H ABG pCO2 28 L 32 32 ABG pO2 75 L 79 L 145 H D ABG HCO3 23 25 24 ABG O2 Saturation 96 95 98 ABG Base Excess 0 2 1 05/30/24 05/31/24 06/04/24 08:45 04:54 02:10 ABG pH 7.47 H 7.45 7.45 ABG pCO2 35 38 36 ABG pO2 86 D 82 L 139 H ABG HCO3 26 26 25 ABG O2 Saturation 97 96 98 ABG Base Excess 2 2 1 06/04/24 06/05/24 06/05/24 18:16 11:36 12:59 ABG pH 7.44 7.11 L* D 7.20 L ABG pCO2 36 94 H* D 68 H D ABG pO2 80 L D 150 H D 121 H D ABG HCO3 24 30 H 26 ABG O2 Saturation 94 97 97 ABG Base Excess 0 -2 -3 06/05/24 06/06/24 06/06/24 19:25 04:13 15:27 ABG pH 7.22 L 7.27 L 7.30 L ABG pCO2 64 H 57 H 60 H ABG pO2 122 H 153 H D 74 L D ABG HCO3 26 26 29 H ABG O2 Saturation 97 99 H 92 ABG Base Excess -3 -2 2 06/07/24 06/07/24 06/08/24 03:55 09:59 04:20 ABG pH 7.41 D 7.43 7.45 ABG pCO2 56 H 55 H 50 H ABG pO2 293 H D 78 L D 75 L ABG HCO3 36 H 37 H 35 H ABG O2 Saturation 99 H 95 94 ABG Base Excess 10 H 11 H 10 H 06/08/24 06/08/24 06/08/24 11:05 11:50 13:18 ABG pH 7.17 L* D 7.10 L* 7.15 L* ABG pCO2 95 H* D 115 H* D 88 H* D ABG pO2 89 75 L 72 L ABG HCO3 34 H 36 H 31 H ABG O2 Saturation 92 84 L 85 L ABG Base Excess 3 4 H 0 06/08/24 06/09/24 06/09/24 17:02 01:33 03:15 ABG pH 7.18 L* 7.22 L 7.27 L ABG pCO2 50 H D 91 H* D 82 H* ABG pO2 82 L 105 D 86 ABG HCO3 19 L 37 H 38 H ABG O2 Saturation 93 97 95 ABG Base Excess -9 L 7 H 9 H 06/09/24 06/09/24 06/10/24 05:08 12:52 04:40 ABG pH 7.31 L 7.33 L 7.30 L ABG pCO2 75 H* 57 H D 78 H* D ABG pO2 97 158 H D 65 L D ABG HCO3 38 H 30 H 38 H ABG O2 Saturation 97 99 H 90 L ABG Base Excess 10 H 3 9 H 06/10/24 06/11/24 06/12/24 09:40 04:19 04:15 ABG pH 7.27 L 7.35 7.48 H D ABG pCO2 88 H* D 86 H* 63 H D ABG pO2 65 L 70 L 76 L ABG HCO3 40 H 48 H 47 H ABG O2 Saturation 89 L 93 95 ABG Base Excess 10 H 19 H 21 H 06/13/24 06/14/24 06/15/24 07:22 04:32 03:45 ABG pH 7.46 H 7.48 H 7.46 H ABG pCO2 56 H 40 D 37 ABG pO2 80 L 64 L 71 L ABG HCO3 39 H 30 H 27 H ABG O2 Saturation 95 92 94 ABG Base Excess 13 H 6 H 3 06/15/24 06/15/24 06/15/24 10:17 12:20 14:20 ABG pH 7.01 L* D 7.00 L* 7.03 L* ABG pCO2 122 H* D 130 H* 125 H* ABG pO2 91 D 88 82 L ABG HCO3 31 H 32 H 33 H ABG O2 Saturation 88 L 88 L 87 L ABG Base Excess -3 -2 -1 06/15/24 06/15/24 06/16/24 15:55 20:39 00:35 ABG pH 7.03 L* 7.08 L* 7.10 L* ABG pCO2 121 H* 116 H* 118 H* ABG pO2 99 117 H 102 ABG HCO3 32 H 34 H 37 H ABG O2 Saturation 93 97 96 ABG Base Excess -1 2 4 H 06/16/24 06/16/24 06/17/24 04:45 08:55 05:06 ABG pH 7.17 L* 7.28 L D 7.33 L ABG pCO2 112 H* 88 H* D 96 H* ABG pO2 155 H D 98 D 126 H D ABG HCO3 41 H 41 H 50 H ABG O2 Saturation 99 H 98 99 H ABG Base Excess 9 H 12 H 21 H 06/17/24 06/17/24 06/18/24 10:58 13:55 04:16 ABG pH 7.29 L 7.29 L 7.33 L ABG pCO2 106 H* D 106 H* 86 H* D ABG pO2 58 L* D 61 L 77 L ABG HCO3 51 H 51 H 45 H ABG O2 Saturation 87 L 88 L 95 ABG Base Excess 21 H 21 H 17 H 06/19/24 06/20/24 06/21/24 04:18 04:49 04:06 ABG pH 7.42 7.36 7.44 ABG pCO2 63 H D 74 H* D 61 H D ABG pO2 66 L 55 L* 202 H D ABG HCO3 41 H 42 H 42 H ABG O2 Saturation 93 87 L 100 H ABG Base Excess 15 H 14 H 16 H 06/22/24 06/23/24 06/24/24 04:18 04:29 04:25 ABG pH 7.45 7.46 H 7.29 L D ABG pCO2 57 H 53 H 80 H* D ABG pO2 60 L D 99 D 88 ABG HCO3 40 H 38 H 38 H ABG O2 Saturation 91 99 H 96 ABG Base Excess 14 H 13 H 9 H 06/24/24 06/25/24 06/25/24 08:50 05:13 11:02 ABG pH 7.40 D 7.46 H Cancelled ABG pCO2 61 H D 53 H Cancelled ABG pO2 110 H D 66 L D Cancelled ABG HCO3 38 H 38 H Cancelled ABG O2 Saturation 99 H 94 Cancelled ABG Base Excess 12 H 13 H Cancelled 06/25/24 06/26/24 06/26/24 15:53 04:13 11:40 ABG pH 7.39 7.41 7.46 H ABG pCO2 53 H 48 43 ABG pO2 55 L* 58 L* 58 L* ABG HCO3 32 H 30 H 31 H ABG O2 Saturation 86 L 89 L 92 ABG Base Excess 6 H 5 H 6 H 06/27/24 06/28/24 06/28/24 04:17 04:24 06:22 ABG pH 7.48 H 7.27 L D 7.22 L ABG pCO2 39 72 H* D 83 H* D ABG pO2 49 L* 71 L D 82 L ABG HCO3 29 H 33 H 34 H ABG O2 Saturation 87 L 93 95 ABG Base Excess 5 H 5 H 4 H 06/28/24 06/29/24 06/30/24 10:18 04:21 07:57 ABG pH 7.32 L D 7.41 7.41 ABG pCO2 64 H D 63 H 62 H ABG pO2 76 L 81 L 59 L* D ABG HCO3 33 H 40 H 40 H ABG O2 Saturation 95 97 88 L ABG Base Excess 6 H 14 H 13 H 07/02/24 07/03/24 07/04/24 04:05 04:45 04:11 ABG pH 7.46 H 7.43 7.38 ABG pCO2 53 H 58 H 67 H ABG pO2 77 L 100 D 73 L D ABG HCO3 38 H 39 H 40 H ABG O2 Saturation 96 98 94 ABG Base Excess 12 H 13 H 13 H 07/05/24 07/06/24 07/09/24 04:40 04:08 04:53 ABG pH 7.30 L 7.42 D 7.26 L ABG pCO2 87 H* D 67 H D 94 H* ABG pO2 132 H D 64 L D 149 H ABG HCO3 43 H 43 H 42 H ABG O2 Saturation 99 H 92 100 H ABG Base Excess 14 H 17 H 12 H Assessment & Plan Assessment and plan (1) Acute respiratory failure with hypoxia: Status: Acute Procedures Arterial Line Size (Gauge): 20
[2024-07-09] MEDS: PHENOBARBITAL ELIX 20 MG/5 ML 180 MG GT (21:24)
[2024-07-09] MEDS: fentaNYL 2,500 MCG/250 ML BAG 2,500 MCG/250 ML BAG 15 MCG IV (21:43)
[2024-07-10] VITALS (44 sets, daily range): BP systolic 82–146; BP diastolic 46–93; PULSE 89–123; RESP 19–33; TEMP 36.2–37.4; O2SAT 87–100; BMI 26.3
[2024-07-10] MEDS: DEXMEDETOMIDINE 200 MCG IVPB 200 MCG/50 ML BOTTLE 25.2 MCG IV ×10 (01:10→23:24)
[2024-07-10] MEDS: PROPOFOL 1,000 MG IVPB 1,000 MG/100 ML VIAL 20.25 MG IV (01:24)
[2024-07-10] MEDS: PHENOBARBITAL ELIX 20 MG/5 ML 180 MG GT ×3 (05:14→21:12)
[2024-07-10] MEDS: METHADONE SOLUTION 5 MG/5 ML UDC 10 MG GT (05:15)
[2024-07-10] MEDS: clonazePAM 0.5 MG TABLET 2 MG PO ×3 (05:15→21:12)
[2024-07-10] MEDS: SEVELAMER CARBONATE 800 MG TABLET PO ×3 (05:15→21:13)
[2024-07-10] MEDS: Artificial Tears 225 DROP/15 ML BTL BOTH EYES ×4 (06:06→20:20)
[2024-07-10 06:50] LABS: Basophils # (Auto) 0.1 Thou/mm3 (0.0-0.2); Basophils % (Auto) 1 % (0-2.5); Eosinophils # (Auto) 0.1 Thou/mm3 (0.0-0.5); Eosinophils % (Auto) 1 % (0-10); Hematocrit 26.7 % (41.0-53.0); Immature Granulocytes % (Auto) 2 % (0-0); Immature Granulocytes Auto 0.14 Thou/mm3 (0.00-0.00); Lymphocytes # (Auto) 0.5 Thou/mm3 (1.0-4.8); Lymphocytes % (Auto) 8 % (10-50); Mean Corpuscular HGB Conc 29.2 g/dl (31.0-37.0); Mean Corpuscular Hemoglobin 24.8 pg (25.0-35.0); Mean Corpuscular Volume 85 fL (80-100); Monocytes # (Auto) 0.3 Thou/mm3 (0.0-0.8); Monocytes % (Auto) 5 % (0-12); Neutrophils # (Auto) 5.7 Thou/mm3 (1.8-7.7); Neutrophils % (Auto) 84 % (37-80); Nucleated Red Blood Cell % 0 /100 WBC (0); Platelet Count 285 Thou/mm3 (140-440); RDW Standard Deviation 75.9 fL (35.1-43.9); Red Blood Count 3.15 Miln/mm3 (4.50-5.90); White Blood Count 6.8 Thou/mm3 (3.8-10.6)
[2024-07-10 06:54] LABS: Alanine Aminotransferase 235 U/L (10-49); Albumin, Serum 2.6 gm/dL (3.5-5.0); Alkaline Phosphatase 414 U/L (46-116); Anion Gap 4 (7-16); Aspartate Amino Transferase 122 U/L (0-34); BUN/Creatinine Ratio 30 Ratio (12-20); Bilirubin,Total < 0.2 mg/dL (0.3-1.2); Blood Urea Nitrogen 21 mg/dL (9-23); Calcium 7.9 mg/dL (8.3-10.6); Carbon Dioxide 38.4 mMol/L (20.0-31.0); Cardiac Risk Estimate 8.3 RATIO (4.0-6.7); Chloride 96 mMol/L (98-107); Cholesterol 150 mg/dL (132-200); Creatinine (Component) 0.7 mg/dL (0.6-1.3); Estimated Creatinine Clearance 129.1 mL/min (>60); Globulin 2.6 gm/dL (2.3-3.5); Glucose 83 mg/dL (74-106); HDL Cholesterol 18 mg/dL (40-60); LDL Cholesterol,Calculated 87 mg/dL (0-130); Osmolality,Calculated 277 (275-295); Phosphorous 3.6 mg/dL (2.4-5.1); Potassium 4.7 mMol/L (3.4-5.1); Sodium 138 mMol/L (136-145); Thyroid Stimulating Hormone 4.47 uIU/mL (0.55-4.78); Total Protein 5.2 gm/dL (5.7-8.2); Triglycerides 226 mg/dL (30-150); eGFR > 60 See Note
[2024-07-10 07:10] LABS: Hemoglobin 7.8 g/dL (13.5-16.0)
[2024-07-10] MEDS: PANTOPRAZOLE INJ 40 MG VIAL IV (08:20)
[2024-07-10] MEDS: Ferrous Sulfate 300 MG/5 ML UDC GT (08:20)
[2024-07-10] MEDS: ASPIRIN EC 81 MG TABEC PO (08:20)
[2024-07-10] MEDS: QUEtiapine FUMARATE 100 MG TABLET PO ×2 (08:20→20:19)
[2024-07-10] MEDS: EMTRICITABINE 200 MG/TENOFOVIR 300 MG TAB (NON-FORM) 1 TAB PO (08:21)
[2024-07-10] MEDS: RALTEGRAVIR 400 MG TABLET NG ×2 (08:22→20:19)
[2024-07-10] MEDS: SULFAMETHOXAZOLE PO (08:23)
[2024-07-10] MEDS: TRIMETHOPRIM PO (08:23)
[2024-07-10] MEDS: GABAPENTIN 100 MG CAPSULE 200 MG GT ×2 (08:25→20:19)
[2024-07-10] MEDS: PROPOFOL 1,000 MG IVPB 1,000 MG/100 ML VIAL 4.5 MG IV (11:14)
[2024-07-10] MEDS: METHADONE HCL 10 MG TABLET GT ×2 (14:15→21:13)
[2024-07-10] MEDS: DEXMEDETOMIDINE 200 MCG IVPB 200 MCG/50 ML BOTTLE 18 MCG IV (14:15)
[2024-07-10] MEDS: CALCIUM CARBONATE 600 MG TABLET GT (14:16)
--- NOTE | 2024-07-10 15:01 | ESPR_ITS ---
Documentation for date of: 07/10/24 Subjective Subjective Interval history: 07/07/24: The patient was evaluated and examined at the bedside this morning again. His heart rate was in the range of 110-130s, and his oxygen saturation was between 87-90, in 60%. Later, the patient started desaturating in 80s, and was given propofol push followed by midazolam push to control excessive work of breathing and tachycardia. The patient was also shivering and given the possibility of an infection, blood, urine and sputum cultures were ordered. 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 CT head was considered but given he is on a stable condition we will defer until his condition improves. He was also added on oral liquid morphine 15 Mg 3 times daily. The patient's recent condition was updated to the family members who presented later at bedside. 07/08/2024: The patient was evaluated and examined at the bedside this morning. He was saturating 99% on 70% FiO2. He is FiO2 was further trended down to 50%, and patient was saturating 92 to 93%. Yesterday he had possible withdrawal syndrome leading to fever and respiratory distress and this morning his white count trended up to 19.1. His potassium was 5.9, and was given D50 IV 50 mL x 1, insulin 5 units IV x 1, calcium gluconate 1 g x 1, and Kayexalate 30 g x 1. We are pending all blood, urine and sputum cultures. His liver enzymes has been trending up, likely in the setting of possible withdrawal syndrome. Goals of care discussion was done with family members, and as the patient's condition mildly improved from yesterday, the family members requested continuing medical management at this time. We will get MRI brain to further evaluate any intracranial etiology. 07/09/2024: The patient was evaluated and examined at the bedside this morning. He was saturating 99% on FiO2 70%, and his ventilator setting was changed to spontaneous pressure support, further changing to SIMV with tidal volume 500 cc. He has been saturating around 90%. He also received 30 g of Kayexalate x 1, and his phenobarbital was increased to 180 Mg 3 times daily, added methadone 10 mg 3 times daily, and gabapentin 200 Mg twice daily. We will continue to taper down his IV sedatives. We will try for SAT on Thursday. He was found to have Large area of restricted diffusion in the left frontal parietal white matter and small foci in the right parietal white matter most consistent with acute infarction, on MRI. We will start him on aspirin 81 Mg daily and atorvastatin 80mg daily. 07/10/2024: No acute overnight events patient remained afebrile. Currently patient is saturating 91% on FiO2 of 60%, saturation goal is above 88%. Patient's sedation of fentanyl propofol and Precedex is weaning down today patient will remain on clonazepam, phenobarbital, methadone and gabapentin in efforts to possibly wake him up by Thursday to assess neurological function. Patient shock is resolved currently is not on any pressor support. Will continue to monitor CBC every 3 days instead of daily due to low hemoglobin as patient's transaminitis, triglycerides and other labs are either stable or downtrending. If patient develops a fever or some acute changes resulting in severe distress or tachycardia we will repeat labs. Due to bicarb being 38.4 will order VBG for tomorrow. Repeat ET sputum stain no organisms and no WBCs and cultures showed mixed kylie. Blood cultures from 07/07 showed no growth. Exam Vital Signs Temp Pulse Resp BP Pulse Ox O2 Del Method O2 Flow Rate 98.5 F 104 H 28 H 121/66 96 Mechanical Ventilation 40 07/10/24 08:00 07/10/24 14:00 07/10/24 10:16 07/10/24 14:00 07/10/24 14:00 07/10/24 12:00 06/09/24 12:16 FiO2 65 07/10/24 12:00 Narrative Exam GEN: Critically ill, not acutely distressed, sedated and mechanically ventilated. Neuro: Deferred due to sedation. HEENT: NCAT, tracheostomy tube on appropriate position, mild abrasion over lower lips, improving. CVS: Mildly tachycardic, no M/R/G. No JVD Respi: Mechanically ventilated, b/l breath sounds heard, significant rhonchi in all lung rosas, ABD: Soft, no grimace to palpation, bowel sounds present in all 4 quadrants, PEG tube in appropriate place Skin: warm, dry and intact. Extremities: Pulses 2+ in all extremities, bilateral upper and lower extremity edema, ruptured vesicles 1-2 cm on the rt forearm surface that have been healing. Objective Labs 07/21/24 04:20 07/21/24 04:20 Labs: Laboratory Results - last 24 hr 07/10/24 04:39 WBC 6.8 D RBC 3.15 L Hgb 7.8 L Hct 26.7 L MCV 85 MCH 24.8 L MCHC 29.2 L RDW Std Deviation 75.9 H Plt Count 285 Neut % (Auto) 84 H Lymph % (Auto) 8 L [place] % (Auto) 5 Eos % (Auto) 1 Baso % (Auto) 1 Neut # (Auto) 5.7 Lymph # (Auto) 0.5 L [place] # (Auto) 0.3 Eos # (Auto) 0.1 Baso # (Auto) 0.1 Immature Gran # (Auto) 0.14 H Absolute Nucleated RBC 0.00 Immature Gran % 2 H Nucleated RBC % 0 Sodium 138 Potassium 4.7 Chloride 96 L Carbon Dioxide 38.4 H Anion Gap 4 L BUN 21 Creatinine 0.7 Estim Creat Clear Calc 129.1 eGFR > 60 BUN/Creatinine Ratio 30 H Glucose [address] Glu mg/dL Cancelled Hemoglobin A1c Cancelled Calculated Osmolality 277 Calcium 7.9 L Corrected Calcium 9.0 Phosphorus 3.6 Magnesium 2.0 Total Bilirubin < 0.2 L AST 122 H ALT 235 H Alkaline Phosphatase 414 H D Total Protein 5.2 L Albumin 2.6 L Globulin 2.6 Albumin/Globulin Ratio 1.0 L Triglycerides 226 H Cholesterol 150 LDL Cholesterol, Calc 87 HDL Cholesterol 18 L Cholesterol/HDL Ratio 8.3 H TSH 4.47 ABG Interpretation ABG results: 05/27/24 05/29/24 05/29/24 23:37 10:44 22:08 ABG pH 7.51 H 7.50 H 7.48 H ABG pCO2 28 L 32 32 ABG pO2 75 L 79 L 145 H D ABG HCO3 23 25 24 ABG O2 Saturation 96 95 98 ABG Base Excess 0 2 1 05/30/24 05/31/24 06/04/24 08:45 04:54 02:10 ABG pH 7.47 H 7.45 7.45 ABG pCO2 35 38 36 ABG pO2 86 D 82 L 139 H ABG HCO3 26 26 25 ABG O2 Saturation 97 96 98 ABG Base Excess 2 2 1 06/04/24 06/05/24 06/05/24 18:16 11:36 12:59 ABG pH 7.44 7.11 L* D 7.20 L ABG pCO2 36 94 H* D 68 H D ABG pO2 80 L D 150 H D 121 H D ABG HCO3 24 30 H 26 ABG O2 Saturation 94 97 97 ABG Base Excess 0 -2 -3 06/05/24 06/06/24 06/06/24 19:25 04:13 15:27 ABG pH 7.22 L 7.27 L 7.30 L ABG pCO2 64 H 57 H 60 H ABG pO2 122 H 153 H D 74 L D ABG HCO3 26 26 29 H ABG O2 Saturation 97 99 H 92 ABG Base Excess -3 -2 2 06/07/24 06/07/24 06/08/24 03:55 09:59 04:20 ABG pH 7.41 D 7.43 7.45 ABG pCO2 56 H 55 H 50 H ABG pO2 293 H D 78 L D 75 L ABG HCO3 36 H 37 H 35 H ABG O2 Saturation 99 H 95 94 ABG Base Excess 10 H 11 H 10 H 06/08/24 06/08/24 06/08/24 11:05 11:50 13:18 ABG pH 7.17 L* D 7.10 L* 7.15 L* ABG pCO2 95 H* D 115 H* D 88 H* D ABG pO2 89 75 L 72 L ABG HCO3 34 H 36 H 31 H ABG O2 Saturation 92 84 L 85 L ABG Base Excess 3 4 H 0 06/08/24 06/09/24 06/09/24 17:02 01:33 03:15 ABG pH 7.18 L* 7.22 L 7.27 L ABG pCO2 50 H D 91 H* D 82 H* ABG pO2 82 L 105 D 86 ABG HCO3 19 L 37 H 38 H ABG O2 Saturation 93 97 95 ABG Base Excess -9 L 7 H 9 H 06/09/24 06/09/24 06/10/24 05:08 12:52 04:40 ABG pH 7.31 L 7.33 L 7.30 L ABG pCO2 75 H* 57 H D 78 H* D ABG pO2 97 158 H D 65 L D ABG HCO3 38 H 30 H 38 H ABG O2 Saturation 97 99 H 90 L ABG Base Excess 10 H 3 9 H 06/10/24 06/11/24 06/12/24 09:40 04:19 04:15 ABG pH 7.27 L 7.35 7.48 H D ABG pCO2 88 H* D 86 H* 63 H D ABG pO2 65 L 70 L 76 L ABG HCO3 40 H 48 H 47 H ABG O2 Saturation 89 L 93 95 ABG Base Excess 10 H 19 H 21 H 06/13/24 06/14/24 06/15/24 07:22 04:32 03:45 ABG pH 7.46 H 7.48 H 7.46 H ABG pCO2 56 H 40 D 37 ABG pO2 80 L 64 L 71 L ABG HCO3 39 H 30 H 27 H ABG O2 Saturation 95 92 94 ABG Base Excess 13 H 6 H 3 06/15/24 06/15/24 06/15/24 10:17 12:20 14:20 ABG pH 7.01 L* D 7.00 L* 7.03 L* ABG pCO2 122 H* D 130 H* 125 H* ABG pO2 91 D 88 82 L ABG HCO3 31 H 32 H 33 H ABG O2 Saturation 88 L 88 L 87 L ABG Base Excess -3 -2 -1 06/15/24 06/15/24 06/16/24 15:55 20:39 00:35 ABG pH 7.03 L* 7.08 L* 7.10 L* ABG pCO2 121 H* 116 H* 118 H* ABG pO2 99 117 H 102 ABG HCO3 32 H 34 H 37 H ABG O2 Saturation 93 97 96 ABG Base Excess -1 2 4 H 06/16/24 06/16/24 06/17/24 04:45 08:55 05:06 ABG pH 7.17 L* 7.28 L D 7.33 L ABG pCO2 112 H* 88 H* D 96 H* ABG pO2 155 H D 98 D 126 H D ABG HCO3 41 H 41 H 50 H ABG O2 Saturation 99 H 98 99 H ABG Base Excess 9 H 12 H 21 H 06/17/24 06/17/24 06/18/24 10:58 13:55 04:16 ABG pH 7.29 L 7.29 L 7.33 L ABG pCO2 106 H* D 106 H* 86 H* D ABG pO2 58 L* D 61 L 77 L ABG HCO3 51 H 51 H 45 H ABG O2 Saturation 87 L 88 L 95 ABG Base Excess 21 H 21 H 17 H 06/19/24 06/20/24 06/21/24 04:18 04:49 04:06 ABG pH 7.42 7.36 7.44 ABG pCO2 63 H D 74 H* D 61 H D ABG pO2 66 L 55 L* 202 H D ABG HCO3 41 H 42 H 42 H ABG O2 Saturation 93 87 L 100 H ABG Base Excess 15 H 14 H 16 H 06/22/24 06/23/24 06/24/24 04:18 04:29 04:25 ABG pH 7.45 7.46 H 7.29 L D ABG pCO2 57 H 53 H 80 H* D ABG pO2 60 L D 99 D 88 ABG HCO3 40 H 38 H 38 H ABG O2 Saturation 91 99 H 96 ABG Base Excess 14 H 13 H 9 H 06/24/24 06/25/24 06/25/24 08:50 05:13 11:02 ABG pH 7.40 D 7.46 H Cancelled ABG pCO2 61 H D 53 H Cancelled ABG pO2 110 H D 66 L D Cancelled ABG HCO3 38 H 38 H Cancelled ABG O2 Saturation 99 H 94 Cancelled ABG Base Excess 12 H 13 H Cancelled 06/25/24 06/26/24 06/26/24 15:53 04:13 11:40 ABG pH 7.39 7.41 7.46 H ABG pCO2 53 H 48 43 ABG pO2 55 L* 58 L* 58 L* ABG HCO3 32 H 30 H 31 H ABG O2 Saturation 86 L 89 L 92 ABG Base Excess 6 H 5 H 6 H 06/27/24 06/28/24 06/28/24 04:17 04:24 06:22 ABG pH 7.48 H 7.27 L D 7.22 L ABG pCO2 39 72 H* D 83 H* D ABG pO2 49 L* 71 L D 82 L ABG HCO3 29 H 33 H 34 H ABG O2 Saturation 87 L 93 95 ABG Base Excess 5 H 5 H 4 H 06/28/24 06/29/24 06/30/24 10:18 04:21 07:57 ABG pH 7.32 L D 7.41 7.41 ABG pCO2 64 H D 63 H 62 H ABG pO2 76 L 81 L 59 L* D ABG HCO3 33 H 40 H 40 H ABG O2 Saturation 95 97 88 L ABG Base Excess 6 H 14 H 13 H 07/02/24 07/03/24 07/04/24 04:05 04:45 04:11 ABG pH 7.46 H 7.43 7.38 ABG pCO2 53 H 58 H 67 H ABG pO2 77 L 100 D 73 L D ABG HCO3 38 H 39 H 40 H ABG O2 Saturation 96 98 94 ABG Base Excess 12 H 13 H 13 H 07/05/24 07/06/24 07/09/24 04:40 04:08 04:53 ABG pH 7.30 L 7.42 D 7.26 L ABG pCO2 87 H* D 67 H D 94 H* ABG pO2 132 H D 64 L D 149 H ABG HCO3 43 H 43 H 42 H ABG O2 Saturation 99 H 92 100 H ABG Base Excess 14 H 17 H 12 H Quality Measures Quality Measures sepsis Current suspected stage: ruled out Possible source: pulmonary, GI tract/intra-abdominal, genitourinary and skin/soft tissue Blood cultures ordered: yes Antibiotic ordered: Yes Assessment & Plan Assessment Current Active Medications: Generic Name Dose Route Start Last Admin Trade Name Freq PRN Reason Stop Dose Admin Acetaminophen 650 mg 06/26/24 15:16 07/07/24 13:12 Acetaminophen Munira 325 Mg/10 Ml Udc GT 07/26/24 15:15 650 mg Q4HR PRN Administration Pain Or Fever > 100.3 Artificial Tears 1 drop 06/18/24 12:00 07/10/24 12:00 Artificial Tears 225 Drop/15 Ml Btl BOTH EYES 07/18/24 11:59 1 drop QID JUAN JOSE Administration Aspirin 81 mg 07/09/24 11:00 07/10/24 08:20 Aspirin Ec 81 Mg Tabec PO 08/08/24 10:59 81 mg QDAY JUAN JOSE Administration Atorvastatin Calcium 80 mg 07/10/24 21:00 Atorvastatin Calcium 20 Mg Tablet PO 08/09/24 20:59 HS JUAN JOSE Calcium Carbonate 600 mg 06/28/24 13:00 07/10/24 14:16 Calcium Carbonate 600 Mg Tablet GT 07/28/24 12:59 600 mg QDAY@1300 JUAN JOSE Administration Clonazepam 2 mg 06/28/24 08:45 07/10/24 14:15 Clonazepam 0.5 Mg Tablet PO 07/19/24 08:44 2 mg TID JUAN JOSE Administration Docusate Sodium 100 mg 06/25/24 09:13 Docusate Sod Liqd 100 Mg/10 Ml Udc PO 07/22/24 08:59 BID PRN Constipation Protocol Emtricitabine/Tenofovir 1 tab 07/06/24 11:30 07/10/24 08:21 Emtricitabine 200 Mg/Tenofovir 300 Mg Tab (Non-Form) PO 07/13/24 11:29 1 tab QDAY JUAN JOSE Administration Ferrous Sulfate 300 mg 07/02/24 10:00 07/10/24 08:20 Ferrous Sulfate 300 Mg/5 Ml Udc GT 07/23/24 09:59 300 mg QDAY JUAN JOSE Administration Gabapentin 200 mg 07/09/24 21:00 07/10/24 08:25 Gabapentin 100 Mg Capsule GT 08/08/24 20:59 200 mg BID JUAN JOSE Administration Norepinephrine/Dextrose 8 mg in 250 mls @ 6.319 mls/hr 06/30/24 04:17 07/09/24 11:30 Levophed In D5w 8mg/250ml IV 07/30/24 04:16 0 mcg/kg/min .Q24H PRN 0 mls/hr PER PROTOCOL Titration Protocol 0.05 MCG/KG/MIN Propofol 1,000 mg in 100 mls @ 2.25 mls/hr 07/04/24 06:39 07/10/24 13:30 Diprivan Ivpb IV 08/03/24 06:38 0 mcg/kg/min .Q24H PRN 0 mls/hr PER PROTOCOL Titration Protocol 5 MCG/KG/MIN Dexmedetomidine/Sodium Chloride 200 mcg in 50 mls @ 3.6 mls/hr 07/04/24 06:59 07/10/24 14:15 Precedex Ivpb IV 08/03/24 06:58 1 mcg/kg/hr .[id number] PRN 18 mls/hr Per PROTOCOL Administration Protocol 0.2 MCG/KG/HR Heparin Sodium/Dextrose 25,000 unit in 250 mls @ 12.87 mls/hr 07/06/24 13:45 07/08/24 15:11 Heparin In D5w Ivpb IV 07/20/24 13:44 0 units/kg/hr .[id number] JUAN JOSE 0 mls/hr Titration Protocol 18 UNITS/KG/HR Methadone HCl 10 mg 07/10/24 14:00 07/10/24 14:15 Methadone Hcl 10 Mg Tablet GT 07/14/24 14:59 10 mg Q8HR JUAN JOSE Administration Methylprednisolone Sodium Succinate 40 mg 07/09/24 09:00 07/10/24 08:20 Methylprednisolone Sod Succ 40 Mg Vial IVP 07/16/24 08:59 40 mg QDAY JUAN JOSE Administration Midazolam HCl 4 mg 07/07/24 11:02 07/07/24 19:34 Midazolam Inj 1 Mg/Ml Vial 2 Ml IV 07/12/24 11:01 4 mg Q3HR PRN Administration Severe agitation, tachycardia, Protocol Pantoprazole Sodium 40 mg 07/07/24 09:32 07/10/24 08:20 Pantoprazole Inj 40 Mg Vial IV 08/06/24 09:31 40 mg QDAY JUAN JOSE Administration Phenobarbital 180 mg 07/09/24 22:00 07/10/24 14:15 Phenobarbital Elix 20 Mg/5 Ml Udc GT 07/23/24 21:59 180 mg TID JUAN JOSE Administration Protocol Quetiapine Fumarate 100 mg 06/28/24 21:00 07/10/24 08:20 Quetiapine Fumarate 100 Mg Tablet PO 07/25/24 20:59 100 mg BID JUAN JOSE Administration Raltegravir 400 mg 07/06/24 11:30 07/10/24 08:22 Raltegravir 400 Mg Tablet NG 07/13/24 11:29 400 mg BID JUAN JOSE Administration Sevelamer Carbonate 800 mg 07/08/24 07:30 07/10/24 14:16 Sevelamer Carbonate 800 Mg Tablet PO 08/07/24 07:29 800 mg TID JUAN JOSE Administration Trimethoprim/Sulfamethoxazole 20 ml 06/23/24 09:00 07/10/24 08:23 Trimethoprim/Sulfa Susp 1 Ml PO 06/22/25 12:00 20 ml QDAY JUAN JOSE Administration Plan 39-year-old male patient with no PMHx who initially presented to [facility] on 05/[facility]24 with a chief complaint of shortness of breath and cough, with associated chills, body aches, generalized weakness, fever, and night sweats beginning weeks prior but progressively worsening over a few days is currently being treated for acute hypoxic respiratory failure secondary to PCP pneumonia that was complicated by ventilator associated pneumonia. Patient is currently on tracheostomy tube and mechanically ventilated. NEURO Patient is sedated and mechanically ventilated through tracheostomy tube. 06/05/2024 Patient was intubated, sedated, and paralyzed for ARDS. Currently on enteral sedatives clonazepam 2 Mg 3 times daily and phenobarbital increased to 180 Mg 3 times daily, started on Methadone 10mg TID and Gabapentin 200mg BID -Patient fentanyl, presidex and propofol dri are wean off #Rt Patietal ischemic Stroke MRI on 07/08 Large area of restricted diffusion in the left frontal parietal white matter and small foci in the right parietal white matter most consistent with acute infarction -Started on aspirin 81mg daily and atorvastatin 80mg daily at night. #Fever, resolved #Withdrawal syndrome, stable Multiple cultures has been negative -Repeat influenza and COVID test on 07/04 negative -Repeat blood, urine and sputum culture are negative for 24 hours, pending final report -Treat underlying condition -Tylenol as needed #Severe shivering, resolved CARDIO #Right subclavian and axillary vein DVT. -Doppler US right upper extremity 06/17/24: revealed RUE DVT -On Heparin Drip, can be switched to oral anticoagulants once hemodynamially stable. #Sinus tachycardia Tachycardia most likely secondary to acute respiratory distress syndrome contributed by withdrawal while tapering the dose of IV sedatives -Continue to treat underlying cause #Shock Most likely 2/2 sedation. BC has been negative and on appropriate antibiotics Patient presented with septic shock secondary to severe extensive bilateral pneumonia. After resolution of initial septic shock, patient developed new hypotension, tachycardia, tachypnea, fevers indicated of septic shock. -Pressor support as needed -Linezolid (started 06/27-07/04) -Meropenem (started 06/27-07/04) -Urine (06/27) showed resistant staph epi -Blood (06/27) showed resistant Staphylococcus haemolyticus -follow up repeat blood cultures and urine cultures -taper down sedatives as tolerated PULM #Chronic hypoxic respiratory failure 2/2 # Acute respiratory distress syndrome in the setting of post PCP pneumonia state Secondary to #Bilateral pneumocystis jirovecii pneumonia, resolved #Healthcare associated pneumonia, resolved, resolved #Ventilator associated pneumonia, resolved #S/P Tracheostomy #Pneumomediastinum, resolved Patient presented with dyspnea and cough, requiring 4L NC on first ED evaluation, and history of chills, body aches, generalized weakness, fever, and night sweats progressively worsening over the prior weeks. Approx 20-pack year smoking history, occasional marijuana. 06/17/2024 oxygenation and hypercapnia improved 06/30/2024: CT chest/abdomen/pelvis revealed pneumomediastinum On linezolid 600 mg q12h 06/15/24-06/22/24 Plan: -Linezolid (started 06/27-07/04) and Meropenum (started 06/27-07/04) -Continue with daily Bactrim -ABG as needed -Continue sedation RAAS scale -1. -Cannot proceed with Proning as patient has tracheostomy tube placed -Repeat Influenza and COVID19 is negative GI GI prophylaxis: IV pantoprazole 40 Mg daily #Elevated LFTs 2/2 HIV DDx: adverse affect of drugs, we had discontinued oxycodone previously, and phenobarbitol Liver enzymes started trending down after discontinuing oxycodone and phenobarbitol. liver US 05/30/2024 showed normal gallbladder and hepatomegaly without lesions or evidence of obstructions. Hep panel negative. LFTs downtrending Plan: -Continue monitoring #Hypertriglyceridemia secondary to propofol use -We repeated lipid panel on 06/30/2024- 183 -Started on propofol, and we will continue to trend TGL NEPHRO #Central diabetes insipidus, resolved #Hypophosphatemia,resolved #WILL, resolved #Hyperkalemia---Resolved #Hyperphosphatemia, resolved #Mild hyponatremia Secondary to SIADH due to acute hypoxic respiratory failure leading to pulmonary distress -Continue to monitor #Hyperphosphetemia -Monitor and replete as needed #NAGMA #Primary Respiratory acidosis partially compensated by metabolic alkalosis Secondary to increased work of breathing and increased RR 2/2 chronic hypoxic respiratory failure and chronic respiratory distress syndrome in the setting of tapering down of IV sedatives -ABGs 07/09 revealed pH of 7.26, pCO2 94, pO2 149 and bicarb 42 -We will treat the underlying cause -repeat VBG for 07/10 HEME #Leukocytosis, improved #Microcytic anemia 2/2 STEPHY and Inflammatory anemia Stable, has not required any transfusions this admission thus far. Clinically no evidence of bleeding. Iron panel shows iron 17, TIBC 262, iron saturation 6, unsaturated iron binding 245. Peripheral blood film confirms microcytic hypochromic anemia with target cells. Also daily lab draws contributing. Plan: -Started on oral ferrous sulfate 300 Mg daily -Monitor H&H. Transfusing for Hgb <7 #Thrombocytosis, resolved Likely reactive in the setting of withdrawal syndrome -Continue to monitor ENDO #Hypoglycemia, resolved ID #Bilateral pneumocystis pneumonia, resolved #Healthcare associated pneumonia, resolved #Ventilator associated pneumonia, resolved #PCP pneumonia prophylaxis Negative studies: Cocci IgM and IgG, Hepatitis panel, Syphilis, Legionella, H.flu, N.meningitidis, Strep B, Strep pneumoniae, COVID, RSV, Flu A & B. TB quantiferon GOLD-indeterminate, however 06/05 AFB negative, CMV IgM, cryptococcal antigen negative. G6PD levels came back normal for consideration of dapsone alternative to Bactrim if needed. Patient completed 5 day course of azithromycin, 16 days of Zosyn. See Pulm for timeline of antimicrobial coverage. On 06/27 patient developed new septic shock Plan: -Antibiotcs Bactrim for prevention of PCP pneumonia in the setting of CD4 count of 116 -Linezolid and meropenum restarted on 06/27/2024-07/04/24 -Urine ackerman port grew GPC, Staph epidermidis that is MDR, sensitive to linezolid. -Fungal cultures from BAL pending, follow-up on results -Blood cultures from 06/26/2024 and 06/27/2024, negative so far, cultures drawn on 06/29/2024 is pending -Follow up blood, sputum, and urine cultures were negative -Repeat blood, urine, sputum cultures were ordered on 07/07/2024- negative so far #AIDS/HIV Patient has Stage 4 HIV, AIDS-defining illness with opportunistic infection. 06/07/2024 Bronchoalveolar lavage cytology shows Pneumocystis jirovecii. Also other fungi, possibly Kassandra. Kassandra is most likely a contaminant. Blood [id number] also positive. 06/08/2024 HIV quant 5.66 million copies. HIV 1 positive confirmed. 06/09/2024 Patient's decision maker, Francesca, was informed of diagnosis due to critical state of patient. Absolute CD4 count 87 and 22% on 06/02. History/risk factors: History of injection anabolic androgenic steroid and testosterone use, possible unclean needles. History of incarceration (unknown time). Tattoos received as a teenager. Has 1 female sexual partner last 5 years, denies others. -Continue HAART: emtricitabine / tenofovir (Truvada) and raltegravir initiated 06/09/24 -Patient is not aware of his diagnosis as he has been intubated and sedated before results returned. Will require complete education and counseling on the disease if his mental status and clinical condition improves. #IRIS The patient has been on HAART for around 4 weeks and given the presentation of ARDS, with negative BC, positive for fever, and on appropriate antibiotics, still having respiratory distress with breathy stacking there is a high possibility of IRIS -Continue on methylprednisone 40mg IV BID until 07/08/2024, Daily from 07/09- MSK #Elevated creatine kinase -Down trended SKIN #Lower lip abrasion #Right forearm blisters -Improving -Monitor closely Dispo: Patient was admitted to ICU unit for the management of acute hypoxic respiratory failure 2/2 PCP pneumonia in the 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 The patient is being downgraded to telemetry unit for further management of chronic hypoxic respiratory failure s/p tracheostomy. DVT prophylaxis: On heparin drip for treatment of right upper extremity DVT GI prophylaxis: Pantoprazole 40 mg IV qday Diet: Tube feeds Ackerman: No, condom cath Lines: Peripheral IV, removed rt femoral central line on 06/28/24 Antibiotics: Bactrim CODE STATUS: DNR/DNI Assessment and plan discussed with my attending physician Dr. Justin Rowe ([id number])- Internal medicine resident Attending Provider Attestation/Addendum Patient seen and examined with above resident, Megan Rowe MD. I agree with the findings, assessment, and plan of care as documented except for any differences below. Patient responded well to transition with addition of oral sedation and opiates for pain control along with gabapentin. Will continue to slowly titrate off IV sedation as to avoid withdrawals. Patient's gas exchange remains stable on limited ability to wean PEEP and FiO2. Patient tolerating SIMV well. Patient's family updated on rest with plan to likely need for complete discontinuation of all IV meds in the coming days. Given the phenobarbital dosing and methadone patient will likely have prolonged weaning from oral meds which will limit ability to assess neurologic status likely to week. Patient on appropriate aspirin and statin for ischemic infarct recently found on MRI. Patient remains on appropriate heart therapy and Bactrim prophylaxis. Will continue to adjust steroid dosing. Patient remains off any antibacterials with no ongoing infection. Patient maintained on heparin drip for upper extremity DVT, will plan to transition when able to Lovenox or DOAC. Will minimize blood draws and do lab testing on an as-needed basis. Continue to work with case consultant as we aim for placement to long-term acute care based on his response from a neurologic standpoint. Patient's family remains hopeful and willing to pursue prolonged weaning. Total critical care time: I personally spent 35 minutes for review of physiologic parameters, directing plan of care throughout the day, and counseling patient's family at bedside. This is exclusive of time spent teaching housestaff or performing any separate billable procedures. 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 Patient remains at high risk for further morbidity and mortality requiring continued close monitoring only available in the intensive care unit.
[2024-07-10] MEDS: ATORVASTATIN CALCIUM 20 MG TABLET 80 MG PO (20:19)
[2024-07-11] VITALS (34 sets, daily range): BP systolic 117–169; BP diastolic 67–103; PULSE 100–136; RESP 0–42; TEMP 37.4–39; O2SAT 85–95; BMI 26.4
[2024-07-11] MEDS: DEXMEDETOMIDINE 200 MCG IVPB 200 MCG/50 ML BOTTLE 25.2 MCG IV ×4 (01:30→07:14)
[2024-07-11] MEDS: Artificial Tears 225 DROP/15 ML BTL BOTH EYES ×4 (05:05→21:17)
[2024-07-11] MEDS: SEVELAMER CARBONATE 800 MG TABLET PO ×3 (05:06→21:37)
[2024-07-11] MEDS: PHENOBARBITAL ELIX 20 MG/5 ML 180 MG GT (05:06)
[2024-07-11] MEDS: clonazePAM 0.5 MG TABLET 2 MG PO (05:06)
[2024-07-11] MEDS: METHADONE HCL 10 MG TABLET GT ×2 (05:46→13:55)
--- NOTE | 2024-07-11 09:09 | PD.IDPROG ---
Subjective Subjective Interval history: change to dnr status noted. still on full rx though. Exam Vital Signs Temp Pulse Resp BP Pulse Ox O2 Del Method O2 Flow Rate 99.6 F 105 H 32 H 119/69 95 Mechanical Ventilation 40 07/11/24 07:00 07/11/24 07:00 07/11/24 06:19 07/11/24 07:00 07/11/24 07:00 07/11/24 07:00 06/09/24 12:16 FiO2 65 07/11/24 07:00 Narrative Exam on vent. no dramatic change. sedated. Objective - Internal Medicine Labs 07/10/24 04:39 07/10/24 04:39 ABG Interpretation ABG results: 05/27/24 05/29/24 05/29/24 23:37 10:44 22:08 ABG pH 7.51 H 7.50 H 7.48 H ABG pCO2 28 L 32 32 ABG pO2 75 L 79 L 145 H D ABG HCO3 23 25 24 ABG O2 Saturation 96 95 98 ABG Base Excess 0 2 1 05/30/24 05/31/24 06/04/24 08:45 04:54 02:10 ABG pH 7.47 H 7.45 7.45 ABG pCO2 35 38 36 ABG pO2 86 D 82 L 139 H ABG HCO3 26 26 25 ABG O2 Saturation 97 96 98 ABG Base Excess 2 2 1 06/04/24 06/05/24 06/05/24 18:16 11:36 12:59 ABG pH 7.44 7.11 L* D 7.20 L ABG pCO2 36 94 H* D 68 H D ABG pO2 80 L D 150 H D 121 H D ABG HCO3 24 30 H 26 ABG O2 Saturation 94 97 97 ABG Base Excess 0 -2 -3 06/05/24 06/06/24 06/06/24 19:25 04:13 15:27 ABG pH 7.22 L 7.27 L 7.30 L ABG pCO2 64 H 57 H 60 H ABG pO2 122 H 153 H D 74 L D ABG HCO3 26 26 29 H ABG O2 Saturation 97 99 H 92 ABG Base Excess -3 -2 2 06/07/24 06/07/24 06/08/24 03:55 09:59 04:20 ABG pH 7.41 D 7.43 7.45 ABG pCO2 56 H 55 H 50 H ABG pO2 293 H D 78 L D 75 L ABG HCO3 36 H 37 H 35 H ABG O2 Saturation 99 H 95 94 ABG Base Excess 10 H 11 H 10 H 06/08/24 06/08/24 06/08/24 11:05 11:50 13:18 ABG pH 7.17 L* D 7.10 L* 7.15 L* ABG pCO2 95 H* D 115 H* D 88 H* D ABG pO2 89 75 L 72 L ABG HCO3 34 H 36 H 31 H ABG O2 Saturation 92 84 L 85 L ABG Base Excess 3 4 H 0 06/08/24 06/09/24 06/09/24 17:02 01:33 03:15 ABG pH 7.18 L* 7.22 L 7.27 L ABG pCO2 50 H D 91 H* D 82 H* ABG pO2 82 L 105 D 86 ABG HCO3 19 L 37 H 38 H ABG O2 Saturation 93 97 95 ABG Base Excess -9 L 7 H 9 H 06/09/24 06/09/24 06/10/24 05:08 12:52 04:40 ABG pH 7.31 L 7.33 L 7.30 L ABG pCO2 75 H* 57 H D 78 H* D ABG pO2 97 158 H D 65 L D ABG HCO3 38 H 30 H 38 H ABG O2 Saturation 97 99 H 90 L ABG Base Excess 10 H 3 9 H 06/10/24 06/11/24 06/12/24 09:40 04:19 04:15 ABG pH 7.27 L 7.35 7.48 H D ABG pCO2 88 H* D 86 H* 63 H D ABG pO2 65 L 70 L 76 L ABG HCO3 40 H 48 H 47 H ABG O2 Saturation 89 L 93 95 ABG Base Excess 10 H 19 H 21 H 06/13/24 06/14/24 06/15/24 07:22 04:32 03:45 ABG pH 7.46 H 7.48 H 7.46 H ABG pCO2 56 H 40 D 37 ABG pO2 80 L 64 L 71 L ABG HCO3 39 H 30 H 27 H ABG O2 Saturation 95 92 94 ABG Base Excess 13 H 6 H 3 06/15/24 06/15/24 06/15/24 10:17 12:20 14:20 ABG pH 7.01 L* D 7.00 L* 7.03 L* ABG pCO2 122 H* D 130 H* 125 H* ABG pO2 91 D 88 82 L ABG HCO3 31 H 32 H 33 H ABG O2 Saturation 88 L 88 L 87 L ABG Base Excess -3 -2 -1 06/15/24 06/15/24 06/16/24 15:55 20:39 00:35 ABG pH 7.03 L* 7.08 L* 7.10 L* ABG pCO2 121 H* 116 H* 118 H* ABG pO2 99 117 H 102 ABG HCO3 32 H 34 H 37 H ABG O2 Saturation 93 97 96 ABG Base Excess -1 2 4 H 06/16/24 06/16/24 06/17/24 04:45 08:55 05:06 ABG pH 7.17 L* 7.28 L D 7.33 L ABG pCO2 112 H* 88 H* D 96 H* ABG pO2 155 H D 98 D 126 H D ABG HCO3 41 H 41 H 50 H ABG O2 Saturation 99 H 98 99 H ABG Base Excess 9 H 12 H 21 H 06/17/24 06/17/24 06/18/24 10:58 13:55 04:16 ABG pH 7.29 L 7.29 L 7.33 L ABG pCO2 106 H* D 106 H* 86 H* D ABG pO2 58 L* D 61 L 77 L ABG HCO3 51 H 51 H 45 H ABG O2 Saturation 87 L 88 L 95 ABG Base Excess 21 H 21 H 17 H 06/19/24 06/20/24 06/21/24 04:18 04:49 04:06 ABG pH 7.42 7.36 7.44 ABG pCO2 63 H D 74 H* D 61 H D ABG pO2 66 L 55 L* 202 H D ABG HCO3 41 H 42 H 42 H ABG O2 Saturation 93 87 L 100 H ABG Base Excess 15 H 14 H 16 H 06/22/24 06/23/24 06/24/24 04:18 04:29 04:25 ABG pH 7.45 7.46 H 7.29 L D ABG pCO2 57 H 53 H 80 H* D ABG pO2 60 L D 99 D 88 ABG HCO3 40 H 38 H 38 H ABG O2 Saturation 91 99 H 96 ABG Base Excess 14 H 13 H 9 H 06/24/24 06/25/24 06/25/24 08:50 05:13 11:02 ABG pH 7.40 D 7.46 H Cancelled ABG pCO2 61 H D 53 H Cancelled ABG pO2 110 H D 66 L D Cancelled ABG HCO3 38 H 38 H Cancelled ABG O2 Saturation 99 H 94 Cancelled ABG Base Excess 12 H 13 H Cancelled 06/25/24 06/26/24 06/26/24 15:53 04:13 11:40 ABG pH 7.39 7.41 7.46 H ABG pCO2 53 H 48 43 ABG pO2 55 L* 58 L* 58 L* ABG HCO3 32 H 30 H 31 H ABG O2 Saturation 86 L 89 L 92 ABG Base Excess 6 H 5 H 6 H 06/27/24 06/28/24 06/28/24 04:17 04:24 06:22 ABG pH 7.48 H 7.27 L D 7.22 L ABG pCO2 39 72 H* D 83 H* D ABG pO2 49 L* 71 L D 82 L ABG HCO3 29 H 33 H 34 H ABG O2 Saturation 87 L 93 95 ABG Base Excess 5 H 5 H 4 H 06/28/24 06/29/24 06/30/24 10:18 04:21 07:57 ABG pH 7.32 L D 7.41 7.41 ABG pCO2 64 H D 63 H 62 H ABG pO2 76 L 81 L 59 L* D ABG HCO3 33 H 40 H 40 H ABG O2 Saturation 95 97 88 L ABG Base Excess 6 H 14 H 13 H 07/02/24 07/03/24 07/04/24 04:05 04:45 04:11 ABG pH 7.46 H 7.43 7.38 ABG pCO2 53 H 58 H 67 H ABG pO2 77 L 100 D 73 L D ABG HCO3 38 H 39 H 40 H ABG O2 Saturation 96 98 94 ABG Base Excess 12 H 13 H 13 H 07/05/24 07/06/24 07/09/24 04:40 04:08 04:53 ABG pH 7.30 L 7.42 D 7.26 L ABG pCO2 87 H* D 67 H D 94 H* ABG pO2 132 H D 64 L D 149 H ABG HCO3 43 H 43 H 42 H ABG O2 Saturation 99 H 92 100 H ABG Base Excess 14 H 17 H 12 H Assessment & Plan A&P Narrative pneumonia.pjp on bal noted. hiv. infection, newly discovered in a heterosexual man. can not r/o ivdu resp failure, hypoxic with ards noted. variable O2 status jo ann, resolved. acute febrile illness. cause uncertain.rx empirical, cx unrevealing given apparent reponse to abx. plan on 7d rx empirically rash on rt arm. cause uncertain. stabilized, rt arm only he has hiv, gf reportely was tested and is reportedly neg. ok for hiv rx as ordered. changed bactrim to once daily about 06/29. hiv rx is ongoing. if vl less than before we are ok. unless R is noted As noted before, not every one survives, he is only 39, but is newly discovered to have a very bad disease that is easier to manage if caught earlier. ok to maintain steroid rxn. for now. repeat cx noted. ok to be off flucon as cd4 >100 and crypto ag neg. gc chlam sent 06/27 and remain pending. odd. today is 07/11/24 will have to notify pt when he is awake f his findings. be sure that gf is tested as precaution. family states she is neg. lft's noted. can be caused by any of a number of factors. normal/neg bili noted. had a blip a few days ago and is trending favoably again today no change in rx noted await the tests ordered the other day. we usually do not repeat the hiv vl and cd4 for 3 mo after verifying s virus in system.so it may not be undetectable but should be lower than at onset. would not treat for cmv, am ok with a biopsy of the rt arm if felt needed. note neg syphilis screen and unilateral finding on arm await repeated hiv testing and R assay, to verify response to rx given variable status did not do R assay initially it seems as that result is not on file. Time Spent With Patient Time: Total time spent is greater than 50% in coordination of care (as documented) at patient's floor/unit and/or counseling patient:
[2024-07-11] MEDS: GABAPENTIN 100 MG CAPSULE 200 MG GT ×2 (09:14→21:18)
[2024-07-11] MEDS: Ferrous Sulfate 300 MG/5 ML UDC GT (09:14)
[2024-07-11] MEDS: HEPARIN SOD INJ 5000 UNIT/ML VIAL SC (09:15)
[2024-07-11] MEDS: RALTEGRAVIR 400 MG TABLET NG ×2 (09:15→21:19)
[2024-07-11] MEDS: PANTOPRAZOLE INJ 40 MG VIAL IV (09:15)
[2024-07-11] MEDS: QUEtiapine FUMARATE 100 MG TABLET PO (09:16)
[2024-07-11] MEDS: SULFAMETHOXAZOLE PO (09:16)
[2024-07-11] MEDS: TRIMETHOPRIM PO (09:16)
[2024-07-11] MEDS: EMTRICITABINE 200 MG/TENOFOVIR 300 MG TAB (NON-FORM) 1 TAB PO (09:18)
[2024-07-11] MEDS: ASPIRIN 81 MG CHEW PO (09:19)
[2024-07-11] MEDS: DEXMEDETOMIDINE 200 MCG IVPB 200 MCG/50 ML BOTTLE 14.4 MCG IV (10:00)
[2024-07-11 10:22] LABS: Misc Send Out* See Sep Rpt
[2024-07-11 12:15] LABS: Base Excess, Venous 16 (-3-3); O2 Saturation, Venous 100 % (96-97); PCO2, Venous 74 mmHg (36-56); PO2, Venous 148 mmHg (15-58); pH, Venous 7.38 (7.33-7.66)
[2024-07-11] MEDS: clonazePAM 0.5 MG TABLET 1 MG PO ×2 (13:54→21:21)
[2024-07-11] MEDS: PHENOBARBITAL ELIX 20 MG/5 ML 90 MG GT ×2 (13:55→21:22)
[2024-07-11] MEDS: CALCIUM CARBONATE 600 MG TABLET GT (13:55)
[2024-07-11] MEDS: ACETAMINOPHEN SOL 325 MG/10 ML UDC 650 MG GT ×2 (14:02→21:32)
--- NOTE | 2024-07-11 14:43 | ESPR_ITS ---
Documentation for date of: 07/11/24 Subjective Subjective Interval history: 07/08/2024: The patient was evaluated and examined at the bedside this morning. He was saturating 99% on 70% FiO2. He is FiO2 was further trended down to 50%, and patient was saturating 92 to 93%. Yesterday he had possible withdrawal syndrome leading to fever and respiratory distress and this morning his white count trended up to 19.1. His potassium was 5.9, and was given D50 IV 50 mL x 1, insulin 5 units IV x 1, calcium gluconate 1 g x 1, and Kayexalate 30 g x 1. We are pending all blood, urine and sputum cultures. His liver enzymes has been trending up, likely in the setting of possible withdrawal syndrome. Goals of care discussion was done with family members, and as the patient's condition mildly improved from yesterday, the family members requested continuing medical management at this time. We will get MRI brain to further evaluate any intracranial etiology. 07/09/2024: The patient was evaluated and examined at the bedside this morning. He was saturating 99% on FiO2 70%, and his ventilator setting was changed to spontaneous pressure support, further changing to SIMV with tidal volume 500 cc. He has been saturating around 90%. He also received 30 g of Kayexalate x 1, and his phenobarbital was increased to 180 Mg 3 times daily, added methadone 10 mg 3 times daily, and gabapentin 200 Mg twice daily. We will continue to taper down his IV sedatives. We will try for SAT on Thursday. He was found to have Large area of restricted diffusion in the left frontal parietal white matter and small foci in the right parietal white matter most consistent with acute infarction, on MRI. We will start him on aspirin 81 Mg daily and atorvastatin 80mg daily. 07/10/2024: No acute overnight events patient remained afebrile. Currently patient is saturating 91% on FiO2 of 60%, saturation goal is above 88%. Patient's sedation of fentanyl propofol and Precedex is weaning down today patient will remain on clonazepam, phenobarbital, methadone and gabapentin in efforts to possibly wake him up by Thursday to assess neurological function. Patient shock is resolved currently is not on any pressor support. Will continue to monitor CBC every 3 days instead of daily due to low hemoglobin as patient's transaminitis, triglycerides and other labs are either stable or downtrending. If patient develops a fever or some acute changes resulting in severe distress or tachycardia we will repeat labs. Due to bicarb being 38.4 will order VBG for tomorrow. Repeat ET sputum stain no organisms and no WBCs and cultures showed mixed kylie. Blood cultures from 07/07 showed no growth. 07/11/24: The patient was evaluated and examined at the bedside this morning. He was saturating 93% on FiO2 65%, plateau pressure of 32 and tidal volume 500 cc, with RR 30. He was tachycardic between 120-130. We are weaning him off from Precedex, we also got down the doses of clonazepam 2 Mg 3 times daily to 1 Mg 3 times daily, phenobarbital 180 Mg 3 times daily to 90 Mg 3 times daily, Seroquel 100 Mg twice daily to 50 Mg twice daily, and we will continue with methadone 10 mg 3 times daily and gabapentin 200 Mg twice daily. We will try SAT by tomorrow. We will get labs done tomorrow along with ABG. He was started on Lovenox 75 Mg SQ twice daily for RUE DVT. Exam Vital Signs Temp Pulse Resp BP Pulse Ox O2 Del Method O2 Flow Rate 102.2 F H 131 H 32 H 161/90 H 93 L Mechanical Ventilation 40 07/11/24 14:02 07/11/24 14:01 07/11/24 06:19 07/11/24 14:01 07/11/24 14:01 07/11/24 07:00 06/09/24 12:16 FiO2 65 07/11/24 14:01 Narrative Exam GEN: Critically ill, not acutely distressed, sedated and mechanically ventilated. Neuro: Deferred due to sedation. HEENT: NCAT, tracheostomy tube on appropriate position, mild abrasion over lower lips, improving. CVS: Mildly tachycardic, no M/R/G. No JVD Respi: Mechanically ventilated, b/l breath sounds heard, significant rhonchi in all lung rosas, ABD: Soft, no grimace to palpation, bowel sounds present in all 4 quadrants, PEG tube in appropriate place Skin: warm, dry and intact. Extremities: Pulses 2+ in all extremities, bilateral upper and lower extremity edema, ruptured vesicles 1-2 cm on the rt forearm surface that have been healing. Objective Labs 07/21/24 04:20 07/21/24 04:20 Labs: Laboratory Results - last 24 hr 07/11/24 11:34 VBG pH 7.38 VBG pCO2 74 H VBG pO2 148 H VBG O2 Sat (Georges) 100 H VBG Base Excess 16 H ABG Interpretation ABG results: 05/27/24 05/29/24 05/29/24 23:37 10:44 22:08 ABG pH 7.51 H 7.50 H 7.48 H ABG pCO2 28 L 32 32 ABG pO2 75 L 79 L 145 H D ABG HCO3 23 25 24 ABG O2 Saturation 96 95 98 ABG Base Excess 0 2 1 VBG pH VBG pCO2 VBG pO2 VBG Base Excess 05/30/24 05/31/24 06/04/24 08:45 04:54 02:10 ABG pH 7.47 H 7.45 7.45 ABG pCO2 35 38 36 ABG pO2 86 D 82 L 139 H ABG HCO3 26 26 25 ABG O2 Saturation 97 96 98 ABG Base Excess 2 2 1 VBG pH VBG pCO2 VBG pO2 VBG Base Excess 06/04/24 06/05/24 06/05/24 18:16 11:36 12:59 ABG pH 7.44 7.11 L* D 7.20 L ABG pCO2 36 94 H* D 68 H D ABG pO2 80 L D 150 H D 121 H D ABG HCO3 24 30 H 26 ABG O2 Saturation 94 97 97 ABG Base Excess 0 -2 -3 VBG pH VBG pCO2 VBG pO2 VBG Base Excess 06/05/24 06/06/24 06/06/24 19:25 04:13 15:27 ABG pH 7.22 L 7.27 L 7.30 L ABG pCO2 64 H 57 H 60 H ABG pO2 122 H 153 H D 74 L D ABG HCO3 26 26 29 H ABG O2 Saturation 97 99 H 92 ABG Base Excess -3 -2 2 VBG pH VBG pCO2 VBG pO2 VBG Base Excess 06/07/24 06/07/24 06/08/24 03:55 09:59 04:20 ABG pH 7.41 D 7.43 7.45 ABG pCO2 56 H 55 H 50 H ABG pO2 293 H D 78 L D 75 L ABG HCO3 36 H 37 H 35 H ABG O2 Saturation 99 H 95 94 ABG Base Excess 10 H 11 H 10 H VBG pH VBG pCO2 VBG pO2 VBG Base Excess 06/08/24 06/08/24 06/08/24 11:05 11:50 13:18 ABG pH 7.17 L* D 7.10 L* 7.15 L* ABG pCO2 95 H* D 115 H* D 88 H* D ABG pO2 89 75 L 72 L ABG HCO3 34 H 36 H 31 H ABG O2 Saturation 92 84 L 85 L ABG Base Excess 3 4 H 0 VBG pH VBG pCO2 VBG pO2 VBG Base Excess 06/08/24 06/09/24 06/09/24 17:02 01:33 03:15 ABG pH 7.18 L* 7.22 L 7.27 L ABG pCO2 50 H D 91 H* D 82 H* ABG pO2 82 L 105 D 86 ABG HCO3 19 L 37 H 38 H ABG O2 Saturation 93 97 95 ABG Base Excess -9 L 7 H 9 H VBG pH VBG pCO2 VBG pO2 VBG Base Excess 06/09/24 06/09/24 06/10/24 05:08 12:52 04:40 ABG pH 7.31 L 7.33 L 7.30 L ABG pCO2 75 H* 57 H D 78 H* D ABG pO2 97 158 H D 65 L D ABG HCO3 38 H 30 H 38 H ABG O2 Saturation 97 99 H 90 L ABG Base Excess 10 H 3 9 H VBG pH VBG pCO2 VBG pO2 VBG Base Excess 06/10/24 06/11/24 06/12/24 09:40 04:19 04:15 ABG pH 7.27 L 7.35 7.48 H D ABG pCO2 88 H* D 86 H* 63 H D ABG pO2 65 L 70 L 76 L ABG HCO3 40 H 48 H 47 H ABG O2 Saturation 89 L 93 95 ABG Base Excess 10 H 19 H 21 H VBG pH VBG pCO2 VBG pO2 VBG Base Excess 06/13/24 06/14/24 06/15/24 07:22 04:32 03:45 ABG pH 7.46 H 7.48 H 7.46 H ABG pCO2 56 H 40 D 37 ABG pO2 80 L 64 L 71 L ABG HCO3 39 H 30 H 27 H ABG O2 Saturation 95 92 94 ABG Base Excess 13 H 6 H 3 VBG pH VBG pCO2 VBG pO2 VBG Base Excess 06/15/24 06/15/24 06/15/24 10:17 12:20 14:20 ABG pH 7.01 L* D 7.00 L* 7.03 L* ABG pCO2 122 H* D 130 H* 125 H* ABG pO2 91 D 88 82 L ABG HCO3 31 H 32 H 33 H ABG O2 Saturation 88 L 88 L 87 L ABG Base Excess -3 -2 -1 VBG pH VBG pCO2 VBG pO2 VBG Base Excess 06/15/24 06/15/24 06/16/24 15:55 20:39 00:35 ABG pH 7.03 L* 7.08 L* 7.10 L* ABG pCO2 121 H* 116 H* 118 H* ABG pO2 99 117 H 102 ABG HCO3 32 H 34 H 37 H ABG O2 Saturation 93 97 96 ABG Base Excess -1 2 4 H VBG pH VBG pCO2 VBG pO2 VBG Base Excess 06/16/24 06/16/24 06/17/24 04:45 08:55 05:06 ABG pH 7.17 L* 7.28 L D 7.33 L ABG pCO2 112 H* 88 H* D 96 H* ABG pO2 155 H D 98 D 126 H D ABG HCO3 41 H 41 H 50 H ABG O2 Saturation 99 H 98 99 H ABG Base Excess 9 H 12 H 21 H VBG pH VBG pCO2 VBG pO2 VBG Base Excess 06/17/24 06/17/24 06/18/24 10:58 13:55 04:16 ABG pH 7.29 L 7.29 L 7.33 L ABG pCO2 106 H* D 106 H* 86 H* D ABG pO2 58 L* D 61 L 77 L ABG HCO3 51 H 51 H 45 H ABG O2 Saturation 87 L 88 L 95 ABG Base Excess 21 H 21 H 17 H VBG pH VBG pCO2 VBG pO2 VBG Base Excess 06/19/24 06/20/24 06/21/24 04:18 04:49 04:06 ABG pH 7.42 7.36 7.44 ABG pCO2 63 H D 74 H* D 61 H D ABG pO2 66 L 55 L* 202 H D ABG HCO3 41 H 42 H 42 H ABG O2 Saturation 93 87 L 100 H ABG Base Excess 15 H 14 H 16 H VBG pH VBG pCO2 VBG pO2 VBG Base Excess 06/22/24 06/23/24 06/24/24 04:18 04:29 04:25 ABG pH 7.45 7.46 H 7.29 L D ABG pCO2 57 H 53 H 80 H* D ABG pO2 60 L D 99 D 88 ABG HCO3 40 H 38 H 38 H ABG O2 Saturation 91 99 H 96 ABG Base Excess 14 H 13 H 9 H VBG pH VBG pCO2 VBG pO2 VBG Base Excess 06/24/24 06/25/24 06/25/24 08:50 05:13 11:02 ABG pH 7.40 D 7.46 H Cancelled ABG pCO2 61 H D 53 H Cancelled ABG pO2 110 H D 66 L D Cancelled ABG HCO3 38 H 38 H Cancelled ABG O2 Saturation 99 H 94 Cancelled ABG Base Excess 12 H 13 H Cancelled VBG pH VBG pCO2 VBG pO2 VBG Base Excess 06/25/24 06/26/24 06/26/24 15:53 04:13 11:40 ABG pH 7.39 7.41 7.46 H ABG pCO2 53 H 48 43 ABG pO2 55 L* 58 L* 58 L* ABG HCO3 32 H 30 H 31 H ABG O2 Saturation 86 L 89 L 92 ABG Base Excess 6 H 5 H 6 H VBG pH VBG pCO2 VBG pO2 VBG Base Excess 06/27/24 06/28/24 06/28/24 04:17 04:24 06:22 ABG pH 7.48 H 7.27 L D 7.22 L ABG pCO2 39 72 H* D 83 H* D ABG pO2 49 L* 71 L D 82 L ABG HCO3 29 H 33 H 34 H ABG O2 Saturation 87 L 93 95 ABG Base Excess 5 H 5 H 4 H VBG pH VBG pCO2 VBG pO2 VBG Base Excess 06/28/24 06/29/24 06/30/24 10:18 04:21 07:57 ABG pH 7.32 L D 7.41 7.41 ABG pCO2 64 H D 63 H 62 H ABG pO2 76 L 81 L 59 L* D ABG HCO3 33 H 40 H 40 H ABG O2 Saturation 95 97 88 L ABG Base Excess 6 H 14 H 13 H VBG pH VBG pCO2 VBG pO2 VBG Base Excess 07/02/24 07/03/24 07/04/24 04:05 04:45 04:11 ABG pH 7.46 H 7.43 7.38 ABG pCO2 53 H 58 H 67 H ABG pO2 77 L 100 D 73 L D ABG HCO3 38 H 39 H 40 H ABG O2 Saturation 96 98 94 ABG Base Excess 12 H 13 H 13 H VBG pH VBG pCO2 VBG pO2 VBG Base Excess 07/05/24 07/06/24 07/09/24 04:40 04:08 04:53 ABG pH 7.30 L 7.42 D 7.26 L ABG pCO2 87 H* D 67 H D 94 H* ABG pO2 132 H D 64 L D 149 H ABG HCO3 43 H 43 H 42 H ABG O2 Saturation 99 H 92 100 H ABG Base Excess 14 H 17 H 12 H VBG pH VBG pCO2 VBG pO2 VBG Base Excess 07/11/24 11:34 ABG pH ABG pCO2 ABG pO2 ABG HCO3 ABG O2 Saturation ABG Base Excess VBG pH 7.38 VBG pCO2 74 H VBG pO2 148 H VBG Base Excess 16 H Quality Measures Quality Measures sepsis Current suspected stage: ruled out Possible source: pulmonary, GI tract/intra-abdominal, genitourinary and skin/soft tissue Blood cultures ordered: yes Antibiotic ordered: No Assessment & Plan Assessment Current Active Medications: Generic Name Dose Route Start Last Admin Trade Name Freq PRN Reason Stop Dose Admin Acetaminophen 650 mg 06/26/24 15:16 07/11/24 14:02 Acetaminophen Munira 325 Mg/10 Ml Udc GT 07/26/24 15:15 650 mg Q4HR PRN Administration Pain Or Fever > 100.3 Artificial Tears 1 drop 06/18/24 12:00 07/11/24 13:56 Artificial Tears 225 Drop/15 Ml Btl BOTH EYES 07/18/24 11:59 1 drop QID JUAN JOSE Administration Aspirin 81 mg 07/11/24 09:30 07/11/24 09:19 Aspirin 81 Mg Chew PO 08/08/24 10:59 81 mg QDAY JUAN JOSE Administration Atorvastatin Calcium 80 mg 07/10/24 21:00 07/10/24 20:19 Atorvastatin Calcium 20 Mg Tablet PO 08/09/24 20:59 80 mg HS JUAN JOSE Administration Calcium Carbonate 600 mg 06/28/24 13:00 07/11/24 13:55 Calcium Carbonate 600 Mg Tablet GT 07/28/24 12:59 600 mg QDAY@1300 JUAN JOSE Administration Clonazepam 1 mg 07/11/24 14:00 07/11/24 13:54 Clonazepam 0.5 Mg Tablet PO 07/16/24 13:59 1 mg TID JUAN JOSE Administration Docusate Sodium 100 mg 06/25/24 09:13 Docusate Sod Liqd 100 Mg/10 Ml Udc PO 07/22/24 08:59 BID PRN Constipation Protocol Emtricitabine/Tenofovir 1 tab 07/06/24 11:30 07/11/24 09:18 Emtricitabine 200 Mg/Tenofovir 300 Mg Tab (Non-Form) PO 07/18/24 14:33 1 tab QDAY JUAN JOSE Administration Enoxaparin Sodium 80 mg 07/11/24 21:00 Enoxaparin Sod Inj 80 Mg/0.8 Ml Syringe SC 07/25/24 20:59 BID JUAN JOSE Ferrous Sulfate 300 mg 07/02/24 10:00 07/11/24 09:14 Ferrous Sulfate 300 Mg/5 Ml Udc GT 07/23/24 09:59 300 mg QDAY JUAN JOSE Administration Gabapentin 200 mg 07/09/24 21:00 07/11/24 09:14 Gabapentin 100 Mg Capsule GT 08/08/24 20:59 200 mg BID JUAN JOSE Administration Heparin Sodium (Porcine) 5,000 unit 07/11/24 07:45 07/11/24 09:15 Heparin Sod Inj 5000 Unit/Ml Vial SC 07/25/24 07:44 5,000 unit Q8HR JUAN JOSE Administration Norepinephrine/Dextrose 8 mg in 250 mls @ 6.319 mls/hr 06/30/24 04:17 07/09/24 11:30 Levophed In D5w 8mg/250ml IV 07/30/24 04:16 0 mcg/kg/min .Q24H PRN 0 mls/hr PER PROTOCOL Titration Protocol 0.05 MCG/KG/MIN Propofol 1,000 mg in 100 mls @ 2.25 mls/hr 07/04/24 06:39 07/10/24 13:30 Diprivan Ivpb IV 08/03/24 06:38 0 mcg/kg/min .Q24H PRN 0 mls/hr PER PROTOCOL Titration Protocol 5 MCG/KG/MIN Dexmedetomidine/Sodium Chloride 200 mcg in 50 mls @ 3.6 mls/hr 07/04/24 06:59 07/11/24 10:20 Precedex Ivpb IV 08/03/24 06:58 0 mcg/kg/hr .[id number] PRN 0 mls/hr Per PROTOCOL Titration Protocol 0.2 MCG/KG/HR Heparin Sodium/Dextrose 25,000 unit in 250 mls @ 12.87 mls/hr 07/06/24 13:45 07/08/24 15:11 Heparin In D5w Ivpb IV 07/20/24 13:44 0 units/kg/hr .[id number] JUAN JOSE 0 mls/hr Titration Protocol 18 UNITS/KG/HR Methadone HCl 10 mg 07/10/24 14:00 07/11/24 13:55 Methadone Hcl 10 Mg Tablet GT 07/14/24 14:59 10 mg Q8HR JUAN JOSE Administration Methylprednisolone Sodium Succinate 40 mg 07/09/24 09:00 07/11/24 09:15 Methylprednisolone Sod Succ 40 Mg Vial IVP 07/16/24 08:59 40 mg QDAY JUAN JOSE Administration Midazolam HCl 4 mg 07/07/24 11:02 07/07/24 19:34 Midazolam Inj 1 Mg/Ml Vial 2 Ml IV 07/12/24 11:01 4 mg Q3HR PRN Administration Severe agitation, tachycardia, Protocol Pantoprazole Sodium 40 mg 07/07/24 09:32 07/11/24 09:15 Pantoprazole Inj 40 Mg Vial IV 08/06/24 09:31 40 mg QDAY JUAN JOSE Administration Phenobarbital 90 mg 07/11/24 14:00 07/11/24 13:55 Phenobarbital Elix 20 Mg/5 Ml Udc GT 07/25/24 13:59 90 mg TID JUAN JOSE Administration Protocol Quetiapine Fumarate 50 mg 07/11/24 21:00 Quetiapine Fumarate 25 Mg Tablet PO 08/10/24 20:59 BID JUAN JOSE Raltegravir 400 mg 07/06/24 11:30 07/11/24 09:15 Raltegravir 400 Mg Tablet NG 07/18/24 14:33 400 mg BID JUAN JOSE Administration Sevelamer Carbonate 800 mg 07/08/24 07:30 07/11/24 13:55 Sevelamer Carbonate 800 Mg Tablet PO 08/07/24 07:29 800 mg TID JUAN JOSE Administration Trimethoprim/Sulfamethoxazole 20 ml 06/23/24 09:00 07/11/24 09:16 Trimethoprim/Sulfa Susp 1 Ml PO 06/22/25 12:00 20 ml QDAY JUAN JOSE Administration Plan 39-year-old male patient with no PMHx who initially presented to [facility] 05/[facility]24 with a chief complaint of shortness of breath and cough, with associated chills, body aches, generalized weakness, fever, and night sweats beginning weeks prior but progressively worsening over a few days is currently being treated for acute hypoxic respiratory failure secondary to PCP pneumonia that was complicated by ventilator associated pneumonia. Patient is currently on tracheostomy tube and mechanically ventilated. 07/11/24: The patient was evaluated and examined at the bedside this morning. He was saturating 93% on FiO2 65%, plateau pressure of 32 and tidal volume 500 cc, with RR 30. He was tachycardic between 120-130. We are weaning him off from Precedex, we also got down the doses of clonazepam 2 Mg 3 times daily to 1 Mg 3 times daily, phenobarbital 180 Mg 3 times daily to 90 Mg 3 times daily, Seroquel 100 Mg twice daily to 50 Mg twice daily, and we will continue with methadone 10 mg 3 times daily and gabapentin 200 Mg twice daily. We will try SAT by tomorrow. We will get labs done tomorrow along with ABG. He was started on Lovenox 75 Mg SQ twice daily for RUE DVT. NEURO Patient is sedated and mechanically ventilated through tracheostomy tube. 06/05/2024 Patient was intubated, sedated, and paralyzed for ARDS. -We are weaning him off from Precedex, we also got down the doses of clonazepam 2 Mg 3 times daily to 1 Mg 3 times daily, phenobarbital 180 Mg 3 times daily to 90 Mg 3 times daily, Seroquel 100 Mg twice daily to 50 Mg twice daily, and we will continue with methadone 10 mg 3 times daily and gabapentin 200 Mg twice daily #Rt Parietal ischemic Stroke MRI on 07/08 Large area of restricted diffusion in the left frontal parietal white matter and small foci in the right parietal white matter most consistent with acute infarction -Started on aspirin 81mg daily and atorvastatin 80mg daily at night. #Fever, resolved #Withdrawal syndrome, stable Multiple cultures has been negative -Repeat influenza and COVID test on 07/04 negative -Repeat blood, urine and sputum culture are negative for 24 hours, pending final report -Treat underlying condition -Tylenol as needed CARDIO #Right subclavian and axillary vein DVT. -Doppler US right upper extremity 06/17/24: revealed RUE DVT -On Heparin Drip 06/17-07/09, On Enoxaparin 75mg BID 07/11- #Sinus tachycardia Tachycardia most likely secondary to acute respiratory distress syndrome contributed by withdrawal while tapering the dose of IV sedatives -Continue to treat underlying cause #Shock, resolved Most likely 2/2 sedation. BC has been negative and on appropriate antibiotics Patient presented with septic shock secondary to severe extensive bilateral pneumonia. After resolution of initial septic shock, patient developed new hypotension, tachycardia, tachypnea, fevers indicated of septic shock. -Pressor support as needed -Linezolid (started 06/27-07/04) -Meropenem (started 06/27-07/04) -Urine (06/27) showed resistant staph epi -Blood (06/27) showed resistant Staphylococcus haemolyticus -follow up repeat blood cultures and urine cultures -taper down sedatives as tolerated PULM #Chronic hypoxic respiratory failure 2/2 # Acute respiratory distress syndrome in the setting of post PCP pneumonia state Secondary to #Bilateral pneumocystis jirovecii pneumonia, resolved #Healthcare associated pneumonia, resolved, resolved #Ventilator associated pneumonia, resolved #S/P Tracheostomy #Pneumomediastinum, resolved -Continues to be on mechanical ventilation via tracheostomy tube, He was saturating 93% on FiO2 65%, plateau pressure of 32 and tidal volume 500 cc, with RR 30. -Titrate down FiO2 as tolerated GI GI prophylaxis: IV pantoprazole 40 Mg daily #Elevated LFTs 2/2 HIV DDx: adverse affect of drugs, we had discontinued oxycodone previously, and phenobarbitol Liver enzymes started trending down after discontinuing oxycodone and phenobarbitol. liver US 05/30/2024 showed normal gallbladder and hepatomegaly without lesions or evidence of obstructions. Hep panel negative. LFTs downtrending Plan: -Continue monitoring #Hypertriglyceridemia secondary to propofol use -We repeated lipid panel on 06/30/2024- 183 -Started on propofol, and we will continue to trend TGL NEPHRO #Central diabetes insipidus, resolved #Hypophosphatemia,resolved #WILL, resolved #Hyperkalemia---Resolved #Hyperphosphatemia, resolved #Mild hyponatremia Secondary to SIADH due to acute hypoxic respiratory failure leading to pulmonary distress -Continue to monitor #Hyperphosphetemia -Monitor and replete as needed #NAGMA #Primary Respiratory acidosis partially compensated by metabolic alkalosis Secondary to increased work of breathing and increased RR 2/2 chronic hypoxic respiratory failure and chronic respiratory distress syndrome in the setting of tapering down of IV sedatives -ABGs 07/09 revealed pH of 7.26, pCO2 94, pO2 149 and bicarb 42 -We will treat the underlying cause -repeat VBG for 07/10 HEME #Leukocytosis, improved #Microcytic anemia 2/2 STEPHY and Inflammatory anemia Stable, has not required any transfusions this admission thus far. Clinically no evidence of bleeding. Iron panel shows iron 17, TIBC 262, iron saturation 6, unsaturated iron binding 245. Peripheral blood film confirms microcytic hypochromic anemia with target cells. Also daily lab draws contributing. Plan: -Started on oral ferrous sulfate 300 Mg daily -Monitor H&H. Transfusing for Hgb <7 #Thrombocytosis, resolved Likely reactive in the setting of withdrawal syndrome -Continue to monitor ENDO #Hypoglycemia, resolved ID #Bilateral pneumocystis pneumonia, resolved #Healthcare associated pneumonia, resolved #Ventilator associated pneumonia, resolved #PCP pneumonia prophylaxis Negative studies: Cocci IgM and IgG, Hepatitis panel, Syphilis, Legionella, H.flu, N.meningitidis, Strep B, Strep pneumoniae, COVID, RSV, Flu A & B. TB quantiferon GOLD-indeterminate, however 06/05 AFB negative, CMV IgM, cryptococcal antigen negative. G6PD levels came back normal for consideration of dapsone alternative to Bactrim if needed. Patient completed 5 day course of azithromycin, 16 days of Zosyn. See Pulm for timeline of antimicrobial coverage. On 06/27 patient developed new septic shock Plan: -Antibiotcs Bactrim for prevention of PCP pneumonia in the setting of CD4 count of 116 -Linezolid and meropenum restarted on 06/27/2024-07/04/24 -Urine ackerman port grew GPC, Staph epidermidis that is MDR, sensitive to linezolid. -Fungal cultures from BAL pending, follow-up on results -Blood cultures from 06/26/2024 and 06/27/2024, negative so far, cultures drawn on 06/29/2024 is pending -Follow up blood, sputum, and urine cultures were negative -Repeat blood, urine, sputum cultures were ordered on 07/07/2024- negative #AIDS/HIV Patient has Stage 4 HIV, AIDS-defining illness with opportunistic infection. 06/07/2024 Bronchoalveolar lavage cytology shows Pneumocystis jirovecii. Also other fungi, possibly Kassandra. Kassandra is most likely a contaminant. Blood gcxs-L-tobowc also positive. 06/08/2024 HIV quant 5.66 million copies. HIV 1 positive confirmed. 06/09/2024 Patient's decision maker, Francesca, was informed of diagnosis due to critical state of patient. Absolute CD4 count 87 and 22% on 06/02. History/risk factors: History of injection anabolic androgenic steroid and testosterone use, possible unclean needles. History of incarceration (unknown time). Tattoos received as a teenager. Has 1 female sexual partner last 5 years, denies others. -Continue HAART: emtricitabine / tenofovir (Truvada) and raltegravir initiated 06/09/24 -Patient is not aware of his diagnosis as he has been intubated and sedated before results returned. Will require complete education and counseling on the disease if his mental status and clinical condition improves. #IRIS The patient has been on HAART for around 4 weeks and given the presentation of ARDS, with negative BC, positive for fever, and on appropriate antibiotics, still having respiratory distress with breathy stacking there is a high possibility of IRIS -Continue on methylprednisone 40mg IV BID until 07/08/2024, Daily from 07/09- MSK #Elevated creatine kinase -Down trended SKIN #Lower lip abrasion #Right forearm blisters -Improving -Monitor closely Dispo: Patient was admitted to ICU unit for the management of acute hypoxic respiratory failure 2/2 PCP pneumonia in the 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 The patient is being downgraded to telemetry unit for further management of chronic hypoxic respiratory failure s/p tracheostomy. DVT prophylaxis: On enoxaparin 75mg BID for treatment of right upper extremity DVT GI prophylaxis: Pantoprazole 40 mg IV qday Diet: Tube feeds Ackerman: No, condom cath Lines: Peripheral IV, removed rt femoral central line on 06/28/24 Antibiotics: Bactrim CODE STATUS: DNR/DNI The patient's management plan was discussed with my attending physician MD Jeff Hamilton MD, PGY2 Attending Provider Attestation/Addendum Patient seen and examined with above resident, Jeff Pacheco MD. I agree with the findings, assessment, and plan of care as documented except for any differences below. Patient adequately loaded with oral regimen and will continue to wean off Precedex after discontinuation of propofol and fentanyl completed. Will plan on slow titration of oral regimen in the coming days. Plan for follow-up spontaneous awake trial tomorrow off of Precedex. Patient remains on appropriate heart therapy, Bactrim prophylaxis and steroid taper. Patient tolerating SIMV well and will try to transition to full pressure support as able. Patient will be transitioned over to Lovenox from heparin drip now that he does not have any other planned procedures, can consider DOAC on discharge alternatively. Patient will likely need LTAC placement and we will assess his neurologic status prior to discussion with family about their goals of care ultimately. Total critical care time: I personally spent 35 minutes for review of physiologic parameters, directing plan of care throughout the day, and counseling patient's family at bedside. Patient continues to require critical care services for acute hypoxic respiratory failure secondary to ARDS in the setting of PCP pneumonia, course complicated by recurrent episodes of ventilator associated pneumonia and septic shock which have now resolved. Patient with slow weaning from mechanical elation but remains at high PEEP and FiO2 at this time. Patient is at risk for increased morbidity and mortality requiring close monitoring only available in the intensive care unit.
--- NOTE | 2024-07-11 16:05 | PC.SS ---
Update: Patient is off sedation. Plan is to attempt to awake patient. If unable to awaken will discuss comfort measures with family. MRI confirmed presence of stroke. Patient remains Trach/PEG.
[2024-07-11] MEDS: ATORVASTATIN CALCIUM 20 MG TABLET 80 MG PO (21:18)
[2024-07-11] MEDS: ENOXAPARIN SOD INJ 80 MG/0.8 ML SYRINGE SC (21:18)
[2024-07-11] MEDS: QUEtiapine FUMARATE 25 MG TABLET 50 MG PO (21:19)
[2024-07-11] MEDS: METHADONE HCL 10 MG TABLET 15 MG GT (21:21)
--- NOTE | 2024-07-11 23:20 | PD.NEUROPROG ---
Documentation for date of: 07/11/24 Subjective Subjective Interval history: Patient is in ICU, off of fentanyl, Precedex, propofol and on methadone. He has a trach in place. Exam - Neurology Vital Signs Temp Pulse Resp BP Pulse Ox O2 Del Method O2 Flow Rate 99.4 F 132 H 26 H 142/82 H 91 L Mechanical Ventilation 40 07/11/24 22:45 07/11/24 23:00 07/11/24 08:00 07/11/24 23:00 07/11/24 23:00 07/11/24 07:00 06/09/24 12:16 FiO2 65 07/11/24 22:41 Narrative Exam GENERAL APPEARANCE: Well hydrated, well-nourished in no acute distress. HEENT: Normocephalic, atraumatic, extraocular movements intact. Pupils: Equal reacting to light and accommodation NECK: Supple, no JVD or bruits. CARDIOVASULAR: Heart: S1, S2 heard, regular without S3-S4 or murmur no rubs or gallops. LUNGS/CHEST: Tracheostomy in place. ABDOMEN: Soft, nontender, with normal bowel sounds. No pulsatile masses. No rebound, rigidity, or guarding. Normal inspection and palpation. EXTREMITIES: Normal inspection and palpation. No edema, clubbing or cyanosis. SKIN: Warm and dry without rashes. Normal inspection. MUSCULOSKELETAL: No cervical, thoracic, lumbar or midline bony tenderness. Normal inspection. NEURO: Comatose, no response to verbal commands or painful stimulation, brainstem function: Partly intact PSYCHIATRIC: Limited Objective Labs 07/10/24 04:39 07/10/24 04:39 Labs: Laboratory Results - last 24 hr 07/11/24 11:34 VBG pH 7.38 VBG pCO2 74 H VBG pO2 148 H VBG O2 Sat (Georges) 100 H VBG Base Excess 16 H ABG Interpretation ABG results: 05/27/24 05/29/24 05/29/24 23:37 10:44 22:08 ABG pH 7.51 H 7.50 H 7.48 H ABG pCO2 28 L 32 32 ABG pO2 75 L 79 L 145 H D ABG HCO3 23 25 24 ABG O2 Saturation 96 95 98 ABG Base Excess 0 2 1 VBG pH VBG pCO2 VBG pO2 VBG Base Excess 05/30/24 05/31/24 06/04/24 08:45 04:54 02:10 ABG pH 7.47 H 7.45 7.45 ABG pCO2 35 38 36 ABG pO2 86 D 82 L 139 H ABG HCO3 26 26 25 ABG O2 Saturation 97 96 98 ABG Base Excess 2 2 1 VBG pH VBG pCO2 VBG pO2 VBG Base Excess 06/04/24 06/05/24 06/05/24 18:16 11:36 12:59 ABG pH 7.44 7.11 L* D 7.20 L ABG pCO2 36 94 H* D 68 H D ABG pO2 80 L D 150 H D 121 H D ABG HCO3 24 30 H 26 ABG O2 Saturation 94 97 97 ABG Base Excess 0 -2 -3 VBG pH VBG pCO2 VBG pO2 VBG Base Excess 06/05/24 06/06/24 06/06/24 19:25 04:13 15:27 ABG pH 7.22 L 7.27 L 7.30 L ABG pCO2 64 H 57 H 60 H ABG pO2 122 H 153 H D 74 L D ABG HCO3 26 26 29 H ABG O2 Saturation 97 99 H 92 ABG Base Excess -3 -2 2 VBG pH VBG pCO2 VBG pO2 VBG Base Excess 06/07/24 06/07/24 06/08/24 03:55 09:59 04:20 ABG pH 7.41 D 7.43 7.45 ABG pCO2 56 H 55 H 50 H ABG pO2 293 H D 78 L D 75 L ABG HCO3 36 H 37 H 35 H ABG O2 Saturation 99 H 95 94 ABG Base Excess 10 H 11 H 10 H VBG pH VBG pCO2 VBG pO2 VBG Base Excess 06/08/24 06/08/24 06/08/24 11:05 11:50 13:18 ABG pH 7.17 L* D 7.10 L* 7.15 L* ABG pCO2 95 H* D 115 H* D 88 H* D ABG pO2 89 75 L 72 L ABG HCO3 34 H 36 H 31 H ABG O2 Saturation 92 84 L 85 L ABG Base Excess 3 4 H 0 VBG pH VBG pCO2 VBG pO2 VBG Base Excess 06/08/24 06/09/24 06/09/24 17:02 01:33 03:15 ABG pH 7.18 L* 7.22 L 7.27 L ABG pCO2 50 H D 91 H* D 82 H* ABG pO2 82 L 105 D 86 ABG HCO3 19 L 37 H 38 H ABG O2 Saturation 93 97 95 ABG Base Excess -9 L 7 H 9 H VBG pH VBG pCO2 VBG pO2 VBG Base Excess 06/09/24 06/09/24 06/10/24 05:08 12:52 04:40 ABG pH 7.31 L 7.33 L 7.30 L ABG pCO2 75 H* 57 H D 78 H* D ABG pO2 97 158 H D 65 L D ABG HCO3 38 H 30 H 38 H ABG O2 Saturation 97 99 H 90 L ABG Base Excess 10 H 3 9 H VBG pH VBG pCO2 VBG pO2 VBG Base Excess 06/10/24 06/11/24 06/12/24 09:40 04:19 04:15 ABG pH 7.27 L 7.35 7.48 H D ABG pCO2 88 H* D 86 H* 63 H D ABG pO2 65 L 70 L 76 L ABG HCO3 40 H 48 H 47 H ABG O2 Saturation 89 L 93 95 ABG Base Excess 10 H 19 H 21 H VBG pH VBG pCO2 VBG pO2 VBG Base Excess 06/13/24 06/14/24 06/15/24 07:22 04:32 03:45 ABG pH 7.46 H 7.48 H 7.46 H ABG pCO2 56 H 40 D 37 ABG pO2 80 L 64 L 71 L ABG HCO3 39 H 30 H 27 H ABG O2 Saturation 95 92 94 ABG Base Excess 13 H 6 H 3 VBG pH VBG pCO2 VBG pO2 VBG Base Excess 06/15/24 06/15/24 06/15/24 10:17 12:20 14:20 ABG pH 7.01 L* D 7.00 L* 7.03 L* ABG pCO2 122 H* D 130 H* 125 H* ABG pO2 91 D 88 82 L ABG HCO3 31 H 32 H 33 H ABG O2 Saturation 88 L 88 L 87 L ABG Base Excess -3 -2 -1 VBG pH VBG pCO2 VBG pO2 VBG Base Excess 06/15/24 06/15/24 06/16/24 15:55 20:39 00:35 ABG pH 7.03 L* 7.08 L* 7.10 L* ABG pCO2 121 H* 116 H* 118 H* ABG pO2 99 117 H 102 ABG HCO3 32 H 34 H 37 H ABG O2 Saturation 93 97 96 ABG Base Excess -1 2 4 H VBG pH VBG pCO2 VBG pO2 VBG Base Excess 06/16/24 06/16/24 06/17/24 04:45 08:55 05:06 ABG pH 7.17 L* 7.28 L D 7.33 L ABG pCO2 112 H* 88 H* D 96 H* ABG pO2 155 H D 98 D 126 H D ABG HCO3 41 H 41 H 50 H ABG O2 Saturation 99 H 98 99 H ABG Base Excess 9 H 12 H 21 H VBG pH VBG pCO2 VBG pO2 VBG Base Excess 06/17/24 06/17/24 06/18/24 10:58 13:55 04:16 ABG pH 7.29 L 7.29 L 7.33 L ABG pCO2 106 H* D 106 H* 86 H* D ABG pO2 58 L* D 61 L 77 L ABG HCO3 51 H 51 H 45 H ABG O2 Saturation 87 L 88 L 95 ABG Base Excess 21 H 21 H 17 H VBG pH VBG pCO2 VBG pO2 VBG Base Excess 06/19/24 06/20/24 06/21/24 04:18 04:49 04:06 ABG pH 7.42 7.36 7.44 ABG pCO2 63 H D 74 H* D 61 H D ABG pO2 66 L 55 L* 202 H D ABG HCO3 41 H 42 H 42 H ABG O2 Saturation 93 87 L 100 H ABG Base Excess 15 H 14 H 16 H VBG pH VBG pCO2 VBG pO2 VBG Base Excess 06/22/24 06/23/24 06/24/24 04:18 04:29 04:25 ABG pH 7.45 7.46 H 7.29 L D ABG pCO2 57 H 53 H 80 H* D ABG pO2 60 L D 99 D 88 ABG HCO3 40 H 38 H 38 H ABG O2 Saturation 91 99 H 96 ABG Base Excess 14 H 13 H 9 H VBG pH VBG pCO2 VBG pO2 VBG Base Excess 06/24/24 06/25/24 06/25/24 08:50 05:13 11:02 ABG pH 7.40 D 7.46 H Cancelled ABG pCO2 61 H D 53 H Cancelled ABG pO2 110 H D 66 L D Cancelled ABG HCO3 38 H 38 H Cancelled ABG O2 Saturation 99 H 94 Cancelled ABG Base Excess 12 H 13 H Cancelled VBG pH VBG pCO2 VBG pO2 VBG Base Excess 06/25/24 06/26/24 06/26/24 15:53 04:13 11:40 ABG pH 7.39 7.41 7.46 H ABG pCO2 53 H 48 43 ABG pO2 55 L* 58 L* 58 L* ABG HCO3 32 H 30 H 31 H ABG O2 Saturation 86 L 89 L 92 ABG Base Excess 6 H 5 H 6 H VBG pH VBG pCO2 VBG pO2 VBG Base Excess 06/27/24 06/28/24 06/28/24 04:17 04:24 06:22 ABG pH 7.48 H 7.27 L D 7.22 L ABG pCO2 39 72 H* D 83 H* D ABG pO2 49 L* 71 L D 82 L ABG HCO3 29 H 33 H 34 H ABG O2 Saturation 87 L 93 95 ABG Base Excess 5 H 5 H 4 H VBG pH VBG pCO2 VBG pO2 VBG Base Excess 06/28/24 06/29/24 06/30/24 10:18 04:21 07:57 ABG pH 7.32 L D 7.41 7.41 ABG pCO2 64 H D 63 H 62 H ABG pO2 76 L 81 L 59 L* D ABG HCO3 33 H 40 H 40 H ABG O2 Saturation 95 97 88 L ABG Base Excess 6 H 14 H 13 H VBG pH VBG pCO2 VBG pO2 VBG Base Excess 07/02/24 07/03/24 07/04/24 04:05 04:45 04:11 ABG pH 7.46 H 7.43 7.38 ABG pCO2 53 H 58 H 67 H ABG pO2 77 L 100 D 73 L D ABG HCO3 38 H 39 H 40 H ABG O2 Saturation 96 98 94 ABG Base Excess 12 H 13 H 13 H VBG pH VBG pCO2 VBG pO2 VBG Base Excess 07/05/24 07/06/24 07/09/24 04:40 04:08 04:53 ABG pH 7.30 L 7.42 D 7.26 L ABG pCO2 87 H* D 67 H D 94 H* ABG pO2 132 H D 64 L D 149 H ABG HCO3 43 H 43 H 42 H ABG O2 Saturation 99 H 92 100 H ABG Base Excess 14 H 17 H 12 H VBG pH VBG pCO2 VBG pO2 VBG Base Excess 07/11/24 11:34 ABG pH ABG pCO2 ABG pO2 ABG HCO3 ABG O2 Saturation ABG Base Excess VBG pH 7.38 VBG pCO2 74 H VBG pO2 148 H VBG Base Excess 16 H Assessment & Plan Assessment and plan (1) Acute respiratory failure with hypoxia: Status: Acute Assessment and plan: Trached and on ventilator Coming off of the sedation, including clonazepam, phenobarbital and Seroquel. Continue with the gabapentin and methadone for now. His condition is critical and his prognosis is poor. No significant improvement noted with weaning from sedation. (2) Acute ischemic stroke: Status: Acute Assessment and plan: Continue with aspirin, Plavix and statin MRI brain showed multiple acute nonhemorrhagic infarction involving the left parietal area, could be from hypotension/hypoxia causing watershed infarct (3) DVT (deep venous thrombosis): Status: Acute Assessment and plan: Started on Lovenox as he has DVT right subclavian and axillary vein Procedures Arterial Line Size (Gauge): 20
[2024-07-12] VITALS (33 sets, daily range): BP systolic 136–170; BP diastolic 74–92; PULSE 109–128; RESP 0–33; TEMP 37.2–38.3; O2SAT 88–100; BMI 27.8
[2024-07-12] MEDS: MIDAZOLAM INJ 1 MG/ML VIAL 2 ML 2 MG IV (00:25)
[2024-07-12 05:02] LABS: Base Excess 16 (-3-3); HCO3 46 mEq/L (20-26); Inspired Oxygen, FIO2 65 %; O2 Saturation 91 % (91-98); PCO2 106 mmHg (32.0-48.0); PO2 67 mmHg (83-108); pH, Arterial 7.25 (7.35-7.45)
[2024-07-12 05:03] LABS: Allen Test Not Performed; Puncture Site Right Radial
[2024-07-12] MEDS: clonazePAM 0.5 MG TABLET 1 MG PO ×3 (05:16→21:03)
[2024-07-12] MEDS: METHADONE HCL 10 MG TABLET 15 MG GT ×2 (05:16→14:03)
[2024-07-12] MEDS: Artificial Tears 225 DROP/15 ML BTL BOTH EYES ×4 (05:16→21:01)
[2024-07-12] MEDS: PHENOBARBITAL ELIX 20 MG/5 ML 90 MG GT (05:17)
[2024-07-12] MEDS: SEVELAMER CARBONATE 800 MG TABLET PO ×3 (05:17→21:04)
[2024-07-12 08:52] LABS: Basophils # (Auto) 0.1 Thou/mm3 (0.0-0.2); Basophils % (Auto) 1 % (0-2.5); Eosinophils % (Auto) 0 % (0-10); Hematocrit 27.3 % (41.0-53.0); Immature Granulocytes % (Auto) 2 % (0-0); Immature Granulocytes Auto 0.19 Thou/mm3 (0.00-0.00); Lymphocytes % (Auto) 8 % (10-50); Mean Corpuscular HGB Conc 28.2 g/dl (31.0-37.0); Mean Corpuscular Hemoglobin 25.1 pg (25.0-35.0); Mean Corpuscular Volume 89 fL (80-100); Monocytes # (Auto) 1.3 Thou/mm3 (0.0-0.8); Monocytes % (Auto) 11 % (0-12); Neutrophils # (Auto) 9.3 Thou/mm3 (1.8-7.7); Neutrophils % (Auto) 79 % (37-80); Nucleated Red Blood Cell # 0.03 Thou/mm3 (0.00-0.00); Nucleated Red Blood Cell % 0 /100 WBC (0); Platelet Count 278 Thou/mm3 (140-440); RDW Standard Deviation 77.5 fL (35.1-43.9); Red Blood Count 3.07 Miln/mm3 (4.50-5.90); White Blood Count 11.8 Thou/mm3 (3.8-10.6)
[2024-07-12 08:55] LABS: Hemoglobin 7.8 g/dL (13.5-16.0)
[2024-07-12] MEDS: Ferrous Sulfate 300 MG/5 ML UDC GT (08:59)
[2024-07-12] MEDS: ENOXAPARIN SOD INJ 80 MG/0.8 ML SYRINGE SC ×2 (08:59→21:01)
[2024-07-12] MEDS: ASPIRIN 81 MG CHEW PO (09:00)
[2024-07-12] MEDS: RALTEGRAVIR 400 MG TABLET NG ×2 (09:00→21:04)
[2024-07-12] MEDS: PANTOPRAZOLE INJ 40 MG VIAL IV (09:00)
[2024-07-12] MEDS: GABAPENTIN 100 MG CAPSULE 200 MG GT ×2 (09:00→21:02)
[2024-07-12 09:02] LABS: Alanine Aminotransferase 129 U/L (10-49); Albumin, Serum 3.1 gm/dL (3.5-5.0); Alkaline Phosphatase 341 U/L (46-116); Anion Gap 3 (7-16); Aspartate Amino Transferase 67 U/L (0-34); BUN/Creatinine Ratio 36 Ratio (12-20); Bilirubin,Total 0.2 mg/dL (0.3-1.2); Blood Urea Nitrogen 25 mg/dL (9-23); Calcium 8.5 mg/dL (8.3-10.6); Calcium (Corrected) 9.2 mg/dL (8.5-10.1); Carbon Dioxide > 40.0 mMol/L (20.0-31.0); Chloride 92 mMol/L (98-107); Creatinine (Component) 0.7 mg/dL (0.6-1.3); Estimated Creatinine Clearance 142.6 mL/min (>60); Globulin 3.1 gm/dL (2.3-3.5); Glucose 113 mg/dL (74-106); Magnesium 2.2 mg/dL (1.6-2.6); Osmolality,Calculated 275 (275-295); Phosphorous 4.2 mg/dL (2.4-5.1); Potassium 5.8 mMol/L (3.4-5.1); Sodium 135 mMol/L (136-145); Total Protein 6.2 gm/dL (5.7-8.2); eGFR > 60 See Note
[2024-07-12] MEDS: TRIMETHOPRIM PO (09:02)
[2024-07-12] MEDS: SULFAMETHOXAZOLE PO (09:02)
[2024-07-12] MEDS: EMTRICITABINE 200 MG/TENOFOVIR 300 MG TAB (NON-FORM) 1 TAB PO (09:25)
[2024-07-12] MEDS: SOD POLYSTYRENE SULFON SUSP 15 GM/60 ML BTL 30 GM GT (10:48)
--- NOTE | 2024-07-12 12:52 | ESPR_ITS ---
Documentation for date of: 07/12/24 Subjective Subjective Interval history: 07/08/2024: The patient was evaluated and examined at the bedside this morning. He was saturating 99% on 70% FiO2. He is FiO2 was further trended down to 50%, and patient was saturating 92 to 93%. Yesterday he had possible withdrawal syndrome leading to fever and respiratory distress and this morning his white count trended up to 19.1. His potassium was 5.9, and was given D50 IV 50 mL x 1, insulin 5 units IV x 1, calcium gluconate 1 g x 1, and Kayexalate 30 g x 1. We are pending all blood, urine and sputum cultures. His liver enzymes has been trending up, likely in the setting of possible withdrawal syndrome. Goals of care discussion was done with family members, and as the patient's condition mildly improved from yesterday, the family members requested continuing medical management at this time. We will get MRI brain to further evaluate any intracranial etiology. 07/09/2024: The patient was evaluated and examined at the bedside this morning. He was saturating 99% on FiO2 70%, and his ventilator setting was changed to spontaneous pressure support, further changing to SIMV with tidal volume 500 cc. He has been saturating around 90%. He also received 30 g of Kayexalate x 1, and his phenobarbital was increased to 180 Mg 3 times daily, added methadone 10 mg 3 times daily, and gabapentin 200 Mg twice daily. We will continue to taper down his IV sedatives. We will try for SAT on Thursday. He was found to have Large area of restricted diffusion in the left frontal parietal white matter and small foci in the right parietal white matter most consistent with acute infarction, on MRI. We will start him on aspirin 81 Mg daily and atorvastatin 80mg daily. 07/10/2024: No acute overnight events patient remained afebrile. Currently patient is saturating 91% on FiO2 of 60%, saturation goal is above 88%. Patient's sedation of fentanyl propofol and Precedex is weaning down today patient will remain on clonazepam, phenobarbital, methadone and gabapentin in efforts to possibly wake him up by Thursday to assess neurological function. Patient shock is resolved currently is not on any pressor support. Will continue to monitor CBC every 3 days instead of daily due to low hemoglobin as patient's transaminitis, triglycerides and other labs are either stable or downtrending. If patient develops a fever or some acute changes resulting in severe distress or tachycardia we will repeat labs. Due to bicarb being 38.4 will order VBG for tomorrow. Repeat ET sputum stain no organisms and no WBCs and cultures showed mixed kylie. Blood cultures from 07/07 showed no growth. 07/11/24: The patient was evaluated and examined at the bedside this morning. He was saturating 93% on FiO2 65%, plateau pressure of 32 and tidal volume 500 cc, with RR 30. He was tachycardic between 120-130. We are weaning him off from Precedex, we also got down the doses of clonazepam 2 Mg 3 times daily to 1 Mg 3 times daily, phenobarbital 180 Mg 3 times daily to 90 Mg 3 times daily, Seroquel 100 Mg twice daily to 50 Mg twice daily, and we will continue with methadone 10 mg 3 times daily and gabapentin 200 Mg twice daily. We will try SAT by tomorrow. We will get labs done tomorrow along with ABG. He was started on Lovenox 75 Mg SQ twice daily for RUE DVT. 07/12/2024: The patient was evaluated and examined at the bedside this morning. He was saturating 95 to 96% on FiO2 65%, plateau pressure of 22, tidal volume 500 cc, RR 28-30. ABG done was significant for pH of 7.25, pCO2 106, bicarb 46. Ventilator mode was changed to pressure support of 25, and FiO2 decreased to 60%. He was tachycardic in 110s. Patient still unresponsive to painful stimulus. We will decrease phenobarbital 90 Mg 260 Mg 3 times daily, and Seroquel 50 Mg twice daily to Seroquel 50 Mg at bedtime, and continue with methadone 10 Mg 3 times daily and gabapentin 200 Mg twice daily. We will slowly taper down his oral sedatives, and try SAT in couple of days. Exam Vital Signs Temp Pulse Resp BP Pulse Ox O2 Del Method O2 Flow Rate 98.9 F 110 H 27 H 159/77 H 97 Mechanical Ventilation 40 07/12/24 12:00 07/12/24 12:00 07/12/24 06:14 07/12/24 12:00 07/12/24 12:00 07/12/24 12:00 06/09/24 12:16 FiO2 60 07/12/24 12:00 Narrative Exam GEN: Critically ill, not acutely distressed, sedated and mechanically ventilated. Neuro: Deferred due to sedation. HEENT: NCAT, tracheostomy tube on appropriate position. CVS: Mildly tachycardic, no M/R/G. No JVD Respi: Mechanically ventilated, b/l breath sounds heard, significant rhonchi in all lung rosas ABD: Soft, no grimace to palpation, bowel sounds present in all 4 quadrants, PEG tube in appropriate place Skin: warm, dry and intact. Extremities: Pulses 2+ in all extremities, bilateral upper and lower extremity edema, ruptured vesicles 1-2 cm on the rt forearm surface that have been healing. Objective Labs 07/22/24 09:31 07/22/24 09:31 Labs: Laboratory Results - last 24 hr 07/12/24 07/12/24 04:49 08:16 WBC 11.8 H D RBC 3.07 L Hgb 7.8 L Hct 27.3 L MCV 89 MCH 25.1 MCHC 28.2 L RDW Std Deviation 77.5 H Plt Count 278 Neut % (Auto) 79 Lymph % (Auto) 8 L [place] % (Auto) 11 Eos % (Auto) 0 Baso % (Auto) 1 Neut # (Auto) 9.3 H Lymph # (Auto) 1.0 [place] # (Auto) 1.3 H Eos # (Auto) 0.0 Baso # (Auto) 0.1 Immature Gran # (Auto) 0.19 H Absolute Nucleated RBC 0.03 H Immature Gran % 2 H Nucleated RBC % 0 Puncture Site Right Radial ABG pH 7.25 L ABG pCO2 106 H* D ABG pO2 67 L D ABG HCO3 46 H ABG O2 Saturation 91 ABG Base Excess 16 H FiO2 65 Sodium 135 L Potassium 5.8 H D Chloride 92 L Carbon Dioxide > 40.0 H Anion Gap 3 L BUN 25 H Creatinine 0.7 Estim Creat Clear Calc 142.6 eGFR > 60 BUN/Creatinine Ratio 36 H Glucose 113 H Calculated Osmolality 275 Calcium 8.5 Corrected Calcium 9.2 Phosphorus 4.2 Magnesium 2.2 Total Bilirubin 0.2 L AST 67 H ALT 129 H Alkaline Phosphatase 341 H D Total Protein 6.2 Albumin 3.1 L D Globulin 3.1 Albumin/Globulin Ratio 1.0 L ABG Interpretation ABG results: 1105/29/24 05/29/24 23:37 10:44 22:08 ABG pH 7.51 H 7.50 H 7.48 H ABG pCO2 28 L 32 32 ABG pO2 75 L 79 L 145 H D ABG HCO3 23 25 24 ABG O2 Saturation 96 95 98 ABG Base Excess 0 2 1 VBG pH VBG pCO2 VBG pO2 VBG Base Excess 05/30/24 05/31/24 06/04/24 08:45 04:54 02:10 ABG pH 7.47 H 7.45 7.45 ABG pCO2 35 38 36 ABG pO2 86 D 82 L 139 H ABG HCO3 26 26 25 ABG O2 Saturation 97 96 98 ABG Base Excess 2 2 1 VBG pH VBG pCO2 VBG pO2 VBG Base Excess 06/04/24 06/05/24 06/05/24 18:16 11:36 12:59 ABG pH 7.44 7.11 L* D 7.20 L ABG pCO2 36 94 H* D 68 H D ABG pO2 80 L D 150 H D 121 H D ABG HCO3 24 30 H 26 ABG O2 Saturation 94 97 97 ABG Base Excess 0 -2 -3 VBG pH VBG pCO2 VBG pO2 VBG Base Excess 06/05/24 06/06/24 06/06/24 19:25 04:13 15:27 ABG pH 7.22 L 7.27 L 7.30 L ABG pCO2 64 H 57 H 60 H ABG pO2 122 H 153 H D 74 L D ABG HCO3 26 26 29 H ABG O2 Saturation 97 99 H 92 ABG Base Excess -3 -2 2 VBG pH VBG pCO2 VBG pO2 VBG Base Excess 06/07/24 06/07/24 06/08/24 03:55 09:59 04:20 ABG pH 7.41 D 7.43 7.45 ABG pCO2 56 H 55 H 50 H ABG pO2 293 H D 78 L D 75 L ABG HCO3 36 H 37 H 35 H ABG O2 Saturation 99 H 95 94 ABG Base Excess 10 H 11 H 10 H VBG pH VBG pCO2 VBG pO2 VBG Base Excess 06/08/24 06/08/24 06/08/24 11:05 11:50 13:18 ABG pH 7.17 L* D 7.10 L* 7.15 L* ABG pCO2 95 H* D 115 H* D 88 H* D ABG pO2 89 75 L 72 L ABG HCO3 34 H 36 H 31 H ABG O2 Saturation 92 84 L 85 L ABG Base Excess 3 4 H 0 VBG pH VBG pCO2 VBG pO2 VBG Base Excess 06/08/24 06/09/24 06/09/24 17:02 01:33 03:15 ABG pH 7.18 L* 7.22 L 7.27 L ABG pCO2 50 H D 91 H* D 82 H* ABG pO2 82 L 105 D 86 ABG HCO3 19 L 37 H 38 H ABG O2 Saturation 93 97 95 ABG Base Excess -9 L 7 H 9 H VBG pH VBG pCO2 VBG pO2 VBG Base Excess 06/09/24 06/09/24 06/10/24 05:08 12:52 04:40 ABG pH 7.31 L 7.33 L 7.30 L ABG pCO2 75 H* 57 H D 78 H* D ABG pO2 97 158 H D 65 L D ABG HCO3 38 H 30 H 38 H ABG O2 Saturation 97 99 H 90 L ABG Base Excess 10 H 3 9 H VBG pH VBG pCO2 VBG pO2 VBG Base Excess 06/10/24 06/11/24 06/12/24 09:40 04:19 04:15 ABG pH 7.27 L 7.35 7.48 H D ABG pCO2 88 H* D 86 H* 63 H D ABG pO2 65 L 70 L 76 L ABG HCO3 40 H 48 H 47 H ABG O2 Saturation 89 L 93 95 ABG Base Excess 10 H 19 H 21 H VBG pH VBG pCO2 VBG pO2 VBG Base Excess 06/13/24 06/14/24 06/15/24 07:22 04:32 03:45 ABG pH 7.46 H 7.48 H 7.46 H ABG pCO2 56 H 40 D 37 ABG pO2 80 L 64 L 71 L ABG HCO3 39 H 30 H 27 H ABG O2 Saturation 95 92 94 ABG Base Excess 13 H 6 H 3 VBG pH VBG pCO2 VBG pO2 VBG Base Excess 06/15/24 06/15/24 06/15/24 10:17 12:20 14:20 ABG pH 7.01 L* D 7.00 L* 7.03 L* ABG pCO2 122 H* D 130 H* 125 H* ABG pO2 91 D 88 82 L ABG HCO3 31 H 32 H 33 H ABG O2 Saturation 88 L 88 L 87 L ABG Base Excess -3 -2 -1 VBG pH VBG pCO2 VBG pO2 VBG Base Excess 06/15/24 06/15/24 06/16/24 15:55 20:39 00:35 ABG pH 7.03 L* 7.08 L* 7.10 L* ABG pCO2 121 H* 116 H* 118 H* ABG pO2 99 117 H 102 ABG HCO3 32 H 34 H 37 H ABG O2 Saturation 93 97 96 ABG Base Excess -1 2 4 H VBG pH VBG pCO2 VBG pO2 VBG Base Excess 06/16/24 06/16/24 06/17/24 04:45 08:55 05:06 ABG pH 7.17 L* 7.28 L D 7.33 L ABG pCO2 112 H* 88 H* D 96 H* ABG pO2 155 H D 98 D 126 H D ABG HCO3 41 H 41 H 50 H ABG O2 Saturation 99 H 98 99 H ABG Base Excess 9 H 12 H 21 H VBG pH VBG pCO2 VBG pO2 VBG Base Excess 06/17/24 06/17/24 06/18/24 10:58 13:55 04:16 ABG pH 7.29 L 7.29 L 7.33 L ABG pCO2 106 H* D 106 H* 86 H* D ABG pO2 58 L* D 61 L 77 L ABG HCO3 51 H 51 H 45 H ABG O2 Saturation 87 L 88 L 95 ABG Base Excess 21 H 21 H 17 H VBG pH VBG pCO2 VBG pO2 VBG Base Excess 06/19/24 06/20/24 06/21/24 04:18 04:49 04:06 ABG pH 7.42 7.36 7.44 ABG pCO2 63 H D 74 H* D 61 H D ABG pO2 66 L 55 L* 202 H D ABG HCO3 41 H 42 H 42 H ABG O2 Saturation 93 87 L 100 H ABG Base Excess 15 H 14 H 16 H VBG pH VBG pCO2 VBG pO2 VBG Base Excess 06/22/24 06/23/24 06/24/24 04:18 04:29 04:25 ABG pH 7.45 7.46 H 7.29 L D ABG pCO2 57 H 53 H 80 H* D ABG pO2 60 L D 99 D 88 ABG HCO3 40 H 38 H 38 H ABG O2 Saturation 91 99 H 96 ABG Base Excess 14 H 13 H 9 H VBG pH VBG pCO2 VBG pO2 VBG Base Excess 06/24/24 06/25/24 06/25/24 08:50 05:13 11:02 ABG pH 7.40 D 7.46 H Cancelled ABG pCO2 61 H D 53 H Cancelled ABG pO2 110 H D 66 L D Cancelled ABG HCO3 38 H 38 H Cancelled ABG O2 Saturation 99 H 94 Cancelled ABG Base Excess 12 H 13 H Cancelled VBG pH VBG pCO2 VBG pO2 VBG Base Excess 06/25/24 06/26/24 06/26/24 15:53 04:13 11:40 ABG pH 7.39 7.41 7.46 H ABG pCO2 53 H 48 43 ABG pO2 55 L* 58 L* 58 L* ABG HCO3 32 H 30 H 31 H ABG O2 Saturation 86 L 89 L 92 ABG Base Excess 6 H 5 H 6 H VBG pH VBG pCO2 VBG pO2 VBG Base Excess 06/27/24 06/28/24 06/28/24 04:17 04:24 06:22 ABG pH 7.48 H 7.27 L D 7.22 L ABG pCO2 39 72 H* D 83 H* D ABG pO2 49 L* 71 L D 82 L ABG HCO3 29 H 33 H 34 H ABG O2 Saturation 87 L 93 95 ABG Base Excess 5 H 5 H 4 H VBG pH VBG pCO2 VBG pO2 VBG Base Excess 06/28/24 06/29/24 06/30/24 10:18 04:21 07:57 ABG pH 7.32 L D 7.41 7.41 ABG pCO2 64 H D 63 H 62 H ABG pO2 76 L 81 L 59 L* D ABG HCO3 33 H 40 H 40 H ABG O2 Saturation 95 97 88 L ABG Base Excess 6 H 14 H 13 H VBG pH VBG pCO2 VBG pO2 VBG Base Excess 07/02/24 07/03/24 07/04/24 04:05 04:45 04:11 ABG pH 7.46 H 7.43 7.38 ABG pCO2 53 H 58 H 67 H ABG pO2 77 L 100 D 73 L D ABG HCO3 38 H 39 H 40 H ABG O2 Saturation 96 98 94 ABG Base Excess 12 H 13 H 13 H VBG pH VBG pCO2 VBG pO2 VBG Base Excess 07/05/24 07/06/24 07/09/24 04:40 04:08 04:53 ABG pH 7.30 L 7.42 D 7.26 L ABG pCO2 87 H* D 67 H D 94 H* ABG pO2 132 H D 64 L D 149 H ABG HCO3 43 H 43 H 42 H ABG O2 Saturation 99 H 92 100 H ABG Base Excess 14 H 17 H 12 H VBG pH VBG pCO2 VBG pO2 VBG Base Excess 07/11/24 07/12/24 11:34 04:49 ABG pH 7.25 L ABG pCO2 106 H* D ABG pO2 67 L D ABG HCO3 46 H ABG O2 Saturation 91 ABG Base Excess 16 H VBG pH 7.38 VBG pCO2 74 H VBG pO2 148 H VBG Base Excess 16 H Quality Measures Quality Measures sepsis Current suspected stage: ruled out Possible source: pulmonary, GI tract/intra-abdominal, genitourinary and skin/soft tissue Blood cultures ordered: yes Antibiotic ordered: No Assessment & Plan Assessment Current Active Medications: Generic Name Dose Route Start Last Admin Trade Name Freq PRN Reason Stop Dose Admin Acetaminophen 650 mg 06/26/24 15:16 07/11/24 21:32 Acetaminophen Munira 325 Mg/10 Ml Udc GT 07/26/24 15:15 650 mg Q4HR PRN Administration Pain Or Fever > 100.3 Artificial Tears 1 drop 06/18/24 12:00 07/12/24 11:22 Artificial Tears 225 Drop/15 Ml Btl BOTH EYES 07/18/24 11:59 1 drop QID JUAN JOSE Administration Aspirin 81 mg 07/11/24 09:30 07/12/24 09:00 Aspirin 81 Mg Chew PO 08/08/24 10:59 81 mg QDAY JUAN JOSE Administration Atorvastatin Calcium 80 mg 07/10/24 21:00 07/11/24 21:18 Atorvastatin Calcium 20 Mg Tablet PO 08/09/24 20:59 80 mg HS JUAN JOSE Administration Calcium Carbonate 600 mg 06/28/24 13:00 07/11/24 13:55 Calcium Carbonate 600 Mg Tablet GT 07/28/24 12:59 600 mg QDAY@1300 JUAN JOSE Administration Clonazepam 1 mg 07/11/24 14:00 07/12/24 05:16 Clonazepam 0.5 Mg Tablet PO 07/16/24 13:59 1 mg TID JUAN JOSE Administration Docusate Sodium 100 mg 06/25/24 09:13 Docusate Sod Liqd 100 Mg/10 Ml Udc PO 07/22/24 08:59 BID PRN Constipation Protocol Emtricitabine/Tenofovir 1 tab 07/06/24 11:30 07/12/24 09:25 Emtricitabine 200 Mg/Tenofovir 300 Mg Tab (Non-Form) PO 08/19/24 14:33 1 tab QDAY JUAN JOSE Administration Enoxaparin Sodium 80 mg 07/11/24 21:00 07/12/24 08:59 Enoxaparin Sod Inj 80 Mg/0.8 Ml Syringe SC 07/25/24 20:59 80 mg BID JUAN JOSE Administration Ferrous Sulfate 300 mg 07/02/24 10:00 07/12/24 08:59 Ferrous Sulfate 300 Mg/5 Ml Udc GT 07/23/24 09:59 300 mg QDAY JUAN JOSE Administration Gabapentin 200 mg 07/09/24 21:00 07/12/24 09:00 Gabapentin 100 Mg Capsule GT 08/08/24 20:59 200 mg BID JUAN JOSE Administration Norepinephrine/Dextrose 8 mg in 250 mls @ 6.319 mls/hr 06/30/24 04:17 07/09/24 11:30 Levophed In D5w 8mg/250ml IV 07/30/24 04:16 0 mcg/kg/min .Q24H PRN 0 mls/hr PER PROTOCOL Titration Protocol 0.05 MCG/KG/MIN Propofol 1,000 mg in 100 mls @ 2.25 mls/hr 07/04/24 06:39 07/10/24 13:30 Diprivan Ivpb IV 08/03/24 06:38 0 mcg/kg/min .Q24H PRN 0 mls/hr PER PROTOCOL Titration Protocol 5 MCG/KG/MIN Dexmedetomidine/Sodium Chloride 200 mcg in 50 mls @ 3.6 mls/hr 07/04/24 06:59 07/11/24 10:20 Precedex Ivpb IV 08/03/24 06:58 0 mcg/kg/hr .[id number] PRN 0 mls/hr Per PROTOCOL Titration Protocol 0.2 MCG/KG/HR Methadone HCl 15 mg 07/11/24 22:00 07/12/24 05:16 Methadone Hcl 10 Mg Tablet GT 07/16/24 21:59 15 mg Q8HR JUAN JOSE Administration Methylprednisolone Sodium Succinate 40 mg 07/09/24 09:00 07/12/24 09:00 Methylprednisolone Sod Succ 40 Mg Vial IVP 07/16/24 08:59 40 mg QDAY JUAN JOSE Administration Pantoprazole Sodium 40 mg 07/07/24 09:32 07/12/24 09:00 Pantoprazole Inj 40 Mg Vial IV 08/06/24 09:31 40 mg QDAY JUAN JOSE Administration Phenobarbital 60 mg 07/12/24 14:00 Phenobarbital Elix 20 Mg/5 Ml Udc GT 07/26/24 13:59 TID JUAN JOSE Protocol Quetiapine Fumarate 50 mg 07/12/24 21:00 Quetiapine Fumarate 25 Mg Tablet PO 08/11/24 20:59 HS JUAN JOSE Raltegravir 400 mg 07/06/24 11:30 07/12/24 09:00 Raltegravir 400 Mg Tablet NG 08/19/24 14:33 400 mg BID JUAN JOSE Administration Sevelamer Carbonate 800 mg 07/08/24 07:30 07/12/24 05:17 Sevelamer Carbonate 800 Mg Tablet PO 08/07/24 07:29 800 mg TID JUAN JOSE Administration Trimethoprim/Sulfamethoxazole 20 ml 06/23/24 09:00 07/12/24 09:02 Trimethoprim/Sulfa Susp 1 Ml PO 06/22/25 12:00 20 ml QDAY JUAN JOSE Administration Plan 39-year-old male patient with no PMHx who initially presented to [facility] on 05/27/2024 with a chief complaint of shortness of breath and cough, with associated chills, body aches, generalized weakness, fever, and night sweats beginning weeks prior but progressively worsening over a few days is currently being treated for acute hypoxic respiratory failure secondary to PCP pneumonia that was complicated by ventilator associated pneumonia. Patient is currently on tracheostomy tube and mechanically ventilated. 07/12/2024: The patient was evaluated and examined at the bedside this morning. He was saturating 95 to 96% on FiO2 65%, plateau pressure of 22, tidal volume 500 cc, RR 28-30. ABG done was significant for pH of 7.25, pCO2 106, bicarb 46. Ventilator mode was changed to pressure support of 25, and FiO2 decreased to 60%. He was tachycardic in 110s. Patient still unresponsive to painful stimulus. We will decrease phenobarbital 90 Mg 260 Mg 3 times daily, and Seroquel 50 Mg twice daily to Seroquel 50 Mg at bedtime, and continue with methadone 10 Mg 3 times daily and gabapentin 200 Mg twice daily. We will slowly taper down his oral sedatives, and try SAT in couple of days. NEURO Patient is sedated and mechanically ventilated through tracheostomy tube. 06/05/2024 Patient was intubated, sedated, and paralyzed for ARDS. -We will decrease phenobarbital 90 Mg 260 Mg 3 times daily, and Seroquel 50 Mg twice daily to Seroquel 50 Mg at bedtime, and continue with methadone 10 Mg 3 times daily and gabapentin 200 Mg twice daily. We will slowly taper down his oral sedatives, and try SAT in couple of days. #Rt Parietal ischemic Stroke MRI on 07/08 Large area of restricted diffusion in the left frontal parietal white matter and small foci in the right parietal white matter most consistent with acute infarction -Started on aspirin 81mg daily and atorvastatin 80mg daily at night. #Fever, resolved #Withdrawal syndrome, stable Multiple cultures has been negative -Repeat influenza and COVID test on 07/04 negative -Repeat blood, urine and sputum culture are negative for 24 hours, pending final report -Treat underlying condition -Tylenol as needed CARDIO #Right subclavian and axillary vein DVT. -Doppler US right upper extremity 06/17/24: revealed RUE DVT -On Heparin Drip 06/17-07/09, On Enoxaparin 75mg BID 07/11- #Sinus tachycardia Tachycardia most likely secondary to acute respiratory distress syndrome contributed by withdrawal while tapering the dose of IV sedatives -Continue to treat underlying cause #Shock, resolved Most likely 2/2 sedation. BC has been negative and on appropriate antibiotics Patient presented with septic shock secondary to severe extensive bilateral pneumonia. After resolution of initial septic shock, patient developed new hypotension, tachycardia, tachypnea, fevers indicated of septic shock. -Pressor support as needed -Linezolid (started 06/27-07/04) -Meropenem (started 06/27-07/04) -Urine (06/27) showed resistant staph epi -Blood (06/27) showed resistant Staphylococcus haemolyticus -follow up repeat blood cultures and urine cultures -taper down sedatives as tolerated PULM #Chronic hypoxic respiratory failure 2/2 # Acute respiratory distress syndrome in the setting of post PCP pneumonia state Secondary to #Bilateral pneumocystis jirovecii pneumonia, resolved #Healthcare associated pneumonia, resolved, resolved #Ventilator associated pneumonia, resolved #S/P Tracheostomy #Pneumomediastinum, resolved -ABG done on 07/12/24 was significant for pH of 7.25, pCO2 106, bicarb 46. Ventilator mode was changed to pressure support of 25, and FiO2 decreased to 60% -Titrate down FiO2 as tolerated GI GI prophylaxis: IV pantoprazole 40 Mg daily #Elevated LFTs 2/2 HIV DDx: adverse affect of drugs, we had discontinued oxycodone previously, and phenobarbitol Liver enzymes started trending down after discontinuing oxycodone and phenobarbitol. liver US 05/30/2024 showed normal gallbladder and hepatomegaly without lesions or evidence of obstructions. Hep panel negative. LFTs downtrending Plan: -Continue monitoring #Hypertriglyceridemia secondary to propofol use -We repeated lipid panel on 06/30/2024- 183 -Started on propofol, and we will continue to trend TGL NEPHRO #Central diabetes insipidus, resolved #Hypophosphatemia,resolved #WILL, resolved #Hyperkalemia On 07/12/24 K 5.8 -Received 30g kayexalate #Mild hyponatremia Secondary to SIADH due to acute hypoxic respiratory failure leading to pulmonary distress -Continue to monitor #Hyperphosphetemia, stable -on sevelamir 800mg TID and calcium carbonate 600mg daily #NAGMA #Primary Respiratory acidosis partially compensated by metabolic alkalosis Secondary to increased work of breathing and increased RR 2/2 chronic hypoxic respiratory failure and chronic respiratory distress syndrome in the setting of tapering down of IV sedatives -ABGs 07/12 pH of 7.25, pCO2 106, bicarb 46 -We will treat the underlying cause respiratory acidosis HEME #Leukocytosis, improved #Microcytic anemia 2/2 STEPHY and Inflammatory anemia Stable, has not required any transfusions this admission thus far. Clinically no evidence of bleeding. Iron panel shows iron 17, TIBC 262, iron saturation 6, unsaturated iron binding 245. Peripheral blood film confirms microcytic hypochromic anemia with target cells. Also daily lab draws contributing. Plan: -Started on oral ferrous sulfate 300 Mg daily -Monitor H&H. Transfusing for Hgb <7 #Thrombocytosis, resolved Likely reactive in the setting of withdrawal syndrome -Continue to monitor ENDO #Hypoglycemia, resolved ID #Bilateral pneumocystis pneumonia, resolved #Healthcare associated pneumonia, resolved #Ventilator associated pneumonia, resolved #PCP pneumonia prophylaxis Negative studies: Cocci IgM and IgG, Hepatitis panel, Syphilis, Legionella, H.flu, N.meningitidis, Strep B, Strep pneumoniae, COVID, RSV, Flu A & B. TB quantiferon GOLD-indeterminate, however 06/05 AFB negative, CMV IgM, cryptococcal antigen negative. G6PD levels came back normal for consideration of dapsone alternative to Bactrim if needed. Patient completed 5 day course of azithromycin, 16 days of Zosyn. See Pulm for timeline of antimicrobial coverage. On 06/27 patient developed new septic shock Plan: -Antibiotcs Bactrim for prevention of PCP pneumonia in the setting of CD4 count of 116 -Linezolid and meropenum restarted on 06/27/2024-07/04/24 -Urine ackerman port grew GPC, Staph epidermidis that is MDR, sensitive to linezolid. -Fungal cultures from BAL pending, follow-up on results -Blood cultures from 06/26/2024 and 06/27/2024, negative so far, cultures drawn on 06/29/2024 is pending -Follow up blood, sputum, and urine cultures were negative -Repeat blood, urine, sputum cultures were ordered on 07/07/2024- negative #AIDS/HIV Patient has Stage 4 HIV, AIDS-defining illness with opportunistic infection. 06/07/2024 Bronchoalveolar lavage cytology shows Pneumocystis jirovecii. Also other fungi, possibly Kassandra. Kassandra is most likely a contaminant. Blood [id number] also positive. 06/08/2024 HIV quant 5.66 million copies. HIV 1 positive confirmed. 06/09/2024 Patient's decision maker, Francesca, was informed of diagnosis due to critical state of patient. Absolute CD4 count 87 and 22% on 06/02. History/risk factors: History of injection anabolic androgenic steroid and testosterone use, possible unclean needles. History of incarceration (unknown time). Tattoos received as a teenager. Has 1 female sexual partner last 5 years, denies others. -Continue HAART: emtricitabine / tenofovir (Truvada) and raltegravir initiated 06/09/24 -Patient is not aware of his diagnosis as he has been intubated and sedated before results returned. Will require complete education and counseling on the disease if his mental status and clinical condition improves. #IRIS The patient has been on HAART for around 4 weeks and given the presentation of ARDS, with negative BC, positive for fever, and on appropriate antibiotics, still having respiratory distress with breathy stacking there is a high possibility of IRIS -Continue on methylprednisone 40mg IV BID until 07/08/2024, Daily from 07/09- MSK #Elevated creatine kinase -Down trended SKIN #Lower lip abrasion #Right forearm blisters -Improving -Monitor closely Dispo: Patient was admitted to ICU unit for the management of acute hypoxic respiratory failure 2/2 PCP pneumonia in the 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 The patient is being downgraded to telemetry unit for further management of chronic hypoxic respiratory failure s/p tracheostomy. DVT prophylaxis: On enoxaparin 75mg BID for treatment of right upper extremity DVT GI prophylaxis: Pantoprazole 40 mg IV qday Diet: Tube feeds Ackerman: No, condom cath Lines: Peripheral IV, removed rt femoral central line on 06/28/24 Antibiotics: Bactrim CODE STATUS: DNR/DNI The patient's management plan was discussed with my attending physician MD Jeff Hamilton MD, PGY2 Attending Provider Attestation/Addendum Patient seen and examined with above resident, Jeff Pacheco MD. I agree with the findings, assessment, and plan of care as documented except for any differences below. Patient with significant CO2 retention and tachycardia, was transition to pressure support ventilation along with intermittent use of SIMV. Patient will be weaned off of all sedation with discontinuation of Seroquel and introduction of phenobarbital along with the clonazepam and methadone with gabapentin. Will plan for spontaneous awake trial off of all sedation including Precedex in coming days. Patient's mentation will be limiting factor for pursuing long-term acute care versus transition to comfort measures only as per my discussion with the patient's family members. Patient otherwise remains hemodynamically stable and without fever now that he really is on appropriate sedative regimen to prevent any withdrawal from both propofol or opiate agents. Fever could also be associated with use of Precedex, this is less likely given association events with other agents. Continue on Lovenox twice daily for upper extremity DVT, PPI daily for prevention of stress ulcer. Patient now only on Bactrim for PCP prophylaxis. Plan to slowly taper down steroid regimen for prevention of IRIS. HAART therapy continued. Most recent control is continue to be negative suggesting noninfectious etiology of fever and agitation in the previous days. Patient's family updated at bedside. Total critical care time: I personally spent 35 minutes for review of physiologic parameters, directing plan of care time today, coordination of care with other specialists, and counseling patient's family at bedside. This is exclusive of time spent teaching housestaff or performing any separate billable procedures. Patient continues require critical care services from acute hypoxic respiratory failure secondary to PCP pneumonia with ARDS now likely in the fibrotic phase status post tracheostomy with difficulty weaning from sedation. He remains at risk for further morbidity and mortality warranting ongoing management and care will be available in the intensive care unit.
[2024-07-12] MEDS: CALCIUM CARBONATE 600 MG TABLET GT (14:02)
[2024-07-12] MEDS: PHENOBARBITAL ELIX 20 MG/5 ML 60 MG GT ×2 (14:03→21:04)
[2024-07-12] MEDS: MORPHINE SULF INJ 10 MG/ML VIAL 5 MG IVP (14:22)
[2024-07-12] MEDS: ACETAMINOPHEN SOL 325 MG/10 ML UDC 650 MG GT (16:43)
[2024-07-12] MEDS: METHADONE HCL 10 MG TABLET 5 MG GT (16:43)
[2024-07-12] MEDS: ATORVASTATIN CALCIUM 20 MG TABLET 80 MG PO (21:01)
[2024-07-12] MEDS: QUEtiapine FUMARATE 25 MG TABLET 50 MG PO (21:02)
[2024-07-12] MEDS: METHADONE HCL 10 MG TABLET 20 MG GT (21:03)
[2024-07-13] VITALS (30 sets, daily range): BP systolic 124–169; BP diastolic 63–87; PULSE 109–123; RESP 14–27; TEMP 36.7–37.5; O2SAT 83–100
[2024-07-13] MEDS: DEXMEDETOMIDINE 200 MCG IVPB 200 MCG/50 ML BOTTLE IV (04:45)
[2024-07-13] MEDS: MIDAZOLAM INJ 1 MG/ML VIAL 2 ML 4 MG IV (05:30)
[2024-07-13] MEDS: METHADONE HCL 10 MG TABLET 20 MG GT ×3 (05:30→22:15)
[2024-07-13] MEDS: clonazePAM 0.5 MG TABLET 1 MG PO (05:30)
[2024-07-13] MEDS: Artificial Tears 225 DROP/15 ML BTL BOTH EYES ×4 (05:30→20:42)
[2024-07-13] MEDS: PHENOBARBITAL ELIX 20 MG/5 ML 60 MG GT ×3 (05:31→22:15)
[2024-07-13] MEDS: SEVELAMER CARBONATE 800 MG TABLET PO ×3 (05:31→22:15)
[2024-07-13] MEDS: DEXMEDETOMIDINE 200 MCG IVPB 200 MCG/50 ML BOTTLE 12.03 MCG IV (07:48)
[2024-07-13] MEDS: ASPIRIN 81 MG CHEW PO (08:36)
[2024-07-13] MEDS: GABAPENTIN 100 MG CAPSULE 200 MG GT (08:36)
[2024-07-13] MEDS: ENOXAPARIN SOD INJ 80 MG/0.8 ML SYRINGE SC ×2 (08:36→20:42)
[2024-07-13] MEDS: PANTOPRAZOLE INJ 40 MG VIAL IV (08:36)
[2024-07-13] MEDS: Ferrous Sulfate 300 MG/5 ML UDC GT (08:36)
[2024-07-13] MEDS: RALTEGRAVIR 400 MG TABLET NG ×2 (08:36→20:41)
[2024-07-13] MEDS: TRIMETHOPRIM PO (08:37)
[2024-07-13] MEDS: SULFAMETHOXAZOLE PO (08:37)
[2024-07-13] MEDS: EMTRICITABINE 200 MG/TENOFOVIR 300 MG TAB (NON-FORM) 1 TAB PO (08:38)
[2024-07-13] MEDS: CALCIUM CARBONATE 600 MG TABLET GT (12:57)
--- NOTE | 2024-07-13 13:35 | PC.SS ---
Update: Patient Trach/PEG. Weaning sedation. Patient is not receiving pressor support. Skin issue on right ear and buttock region.
--- NOTE | 2024-07-13 14:44 | PD.RESPRO ---
Documentation for date of: 07/13/24 Subjective Subjective Interval history: 07/10/2024: No acute overnight events patient remained afebrile. Currently patient is saturating 91% on FiO2 of 60%, saturation goal is above 88%. Patient's sedation of fentanyl propofol and Precedex is weaning down today patient will remain on clonazepam, phenobarbital, methadone and gabapentin in efforts to possibly wake him up by Thursday to assess neurological function. Patient shock is resolved currently is not on any pressor support. Will continue to monitor CBC every 3 days instead of daily due to low hemoglobin as patient's transaminitis, triglycerides and other labs are either stable or downtrending. If patient develops a fever or some acute changes resulting in severe distress or tachycardia we will repeat labs. Due to bicarb being 38.4 will order VBG for tomorrow. Repeat ET sputum stain no organisms and no WBCs and cultures showed mixed kylie. Blood cultures from 07/07 showed no growth. 07/11/24: The patient was evaluated and examined at the bedside this morning. He was saturating 93% on FiO2 65%, plateau pressure of 32 and tidal volume 500 cc, with RR 30. He was tachycardic between 120-130. We are weaning him off from Precedex, we also got down the doses of clonazepam 2 Mg 3 times daily to 1 Mg 3 times daily, phenobarbital 180 Mg 3 times daily to 90 Mg 3 times daily, Seroquel 100 Mg twice daily to 50 Mg twice daily, and we will continue with methadone 10 mg 3 times daily and gabapentin 200 Mg twice daily. We will try SAT by tomorrow. We will get labs done tomorrow along with ABG. He was started on Lovenox 75 Mg SQ twice daily for RUE DVT. 07/12/2024: The patient was evaluated and examined at the bedside this morning. He was saturating 95 to 96% on FiO2 65%, plateau pressure of 22, tidal volume 500 cc, RR 28-30. ABG done was significant for pH of 7.25, pCO2 106, bicarb 46. Ventilator mode was changed to pressure support of 25, and FiO2 decreased to 60%. He was tachycardic in 110s. Patient still unresponsive to painful stimulus. We will decrease phenobarbital 90 Mg to 60 Mg 3 times daily, and Seroquel 50 Mg twice daily to Seroquel 50 Mg at bedtime, and continue with methadone 10 Mg 3 times daily and gabapentin 200 Mg twice daily. We will slowly taper down his oral sedatives, and try SAT in couple of days. 07/13/24: The patient was evaluated and examined at the bedside this morning. Overnight, the patient was having severe tremors, and was started on Precedex drip, initially tremors resolved but later required midazolam 2 mg IV x 1 followed by midazolam 4 mg IV x 1 which resolved his tremors. He is still tachycardic in 110s. We will continue with the volume control setting at this point and start him on SIMV with TV 500cc, PS 15, PEEP 10 and RR 10 in the evening. We will continue with phenobarbital 60 Mg 3 times daily, decreased clonazepam to 0.5 Mg 3 times daily, continue with Precedex drip, and increased the dose of gabapentin to 400 Mg twice daily. We will do lab work every 72 hours. The plan is to try with SAT in a couple of days. Exam Vital Signs Temp Pulse Resp BP Pulse Ox O2 Del Method O2 Flow Rate 99.5 F 116 H 24 H 126/74 96 Mechanical Ventilation 40 07/13/24 12:00 07/13/24 14:10 07/13/24 12:00 07/13/24 14:10 07/13/24 14:10 07/13/24 12:00 06/09/24 12:16 FiO2 75 07/13/24 14:10 Narrative Exam GEN: Critically ill, not acutely distressed, sedated and mechanically ventilated. Neuro: Deferred due to sedation. HEENT: NCAT, tracheostomy tube on appropriate position. CVS: Mildly tachycardic, no M/R/G. No JVD Respi: Mechanically ventilated, b/l breath sounds heard, significant rhonchi in all lung rosas ABD: Soft, no grimace to palpation, bowel sounds present in all 4 quadrants, PEG tube in appropriate place Skin: warm, dry and intact. Extremities: Pulses 2+ in all extremities, bilateral upper extremity 1+ edema, ruptured vesicles 1-2 cm on the rt forearm surface that have been healing. Objective Labs 07/26/24 05:00 07/26/24 05:36 ABG Interpretation ABG results: 05/27/24 05/29/24 05/29/24 23:37 10:44 22:08 ABG pH 7.51 H 7.50 H 7.48 H ABG pCO2 28 L 32 32 ABG pO2 75 L 79 L 145 H D ABG HCO3 23 25 24 ABG O2 Saturation 96 95 98 ABG Base Excess 0 2 1 VBG pH VBG pCO2 VBG pO2 VBG Base Excess 05/30/24 05/31/24 06/04/24 08:45 04:54 02:10 ABG pH 7.47 H 7.45 7.45 ABG pCO2 35 38 36 ABG pO2 86 D 82 L 139 H ABG HCO3 26 26 25 ABG O2 Saturation 97 96 98 ABG Base Excess 2 2 1 VBG pH VBG pCO2 VBG pO2 VBG Base Excess 06/04/24 06/05/24 06/05/24 18:16 11:36 12:59 ABG pH 7.44 7.11 L* D 7.20 L ABG pCO2 36 94 H* D 68 H D ABG pO2 80 L D 150 H D 121 H D ABG HCO3 24 30 H 26 ABG O2 Saturation 94 97 97 ABG Base Excess 0 -2 -3 VBG pH VBG pCO2 VBG pO2 VBG Base Excess 06/05/24 06/06/24 06/06/24 19:25 04:13 15:27 ABG pH 7.22 L 7.27 L 7.30 L ABG pCO2 64 H 57 H 60 H ABG pO2 122 H 153 H D 74 L D ABG HCO3 26 26 29 H ABG O2 Saturation 97 99 H 92 ABG Base Excess -3 -2 2 VBG pH VBG pCO2 VBG pO2 VBG Base Excess 06/07/24 06/07/24 06/08/24 03:55 09:59 04:20 ABG pH 7.41 D 7.43 7.45 ABG pCO2 56 H 55 H 50 H ABG pO2 293 H D 78 L D 75 L ABG HCO3 36 H 37 H 35 H ABG O2 Saturation 99 H 95 94 ABG Base Excess 10 H 11 H 10 H VBG pH VBG pCO2 VBG pO2 VBG Base Excess 06/08/24 06/08/24 06/08/24 11:05 11:50 13:18 ABG pH 7.17 L* D 7.10 L* 7.15 L* ABG pCO2 95 H* D 115 H* D 88 H* D ABG pO2 89 75 L 72 L ABG HCO3 34 H 36 H 31 H ABG O2 Saturation 92 84 L 85 L ABG Base Excess 3 4 H 0 VBG pH VBG pCO2 VBG pO2 VBG Base Excess 06/08/24 06/09/24 06/09/24 17:02 01:33 03:15 ABG pH 7.18 L* 7.22 L 7.27 L ABG pCO2 50 H D 91 H* D 82 H* ABG pO2 82 L 105 D 86 ABG HCO3 19 L 37 H 38 H ABG O2 Saturation 93 97 95 ABG Base Excess -9 L 7 H 9 H VBG pH VBG pCO2 VBG pO2 VBG Base Excess 06/09/24 06/09/24 06/10/24 05:08 12:52 04:40 ABG pH 7.31 L 7.33 L 7.30 L ABG pCO2 75 H* 57 H D 78 H* D ABG pO2 97 158 H D 65 L D ABG HCO3 38 H 30 H 38 H ABG O2 Saturation 97 99 H 90 L ABG Base Excess 10 H 3 9 H VBG pH VBG pCO2 VBG pO2 VBG Base Excess 06/10/24 06/11/24 06/12/24 09:40 04:19 04:15 ABG pH 7.27 L 7.35 7.48 H D ABG pCO2 88 H* D 86 H* 63 H D ABG pO2 65 L 70 L 76 L ABG HCO3 40 H 48 H 47 H ABG O2 Saturation 89 L 93 95 ABG Base Excess 10 H 19 H 21 H VBG pH VBG pCO2 VBG pO2 VBG Base Excess 06/13/24 06/14/24 06/15/24 07:22 04:32 03:45 ABG pH 7.46 H 7.48 H 7.46 H ABG pCO2 56 H 40 D 37 ABG pO2 80 L 64 L 71 L ABG HCO3 39 H 30 H 27 H ABG O2 Saturation 95 92 94 ABG Base Excess 13 H 6 H 3 VBG pH VBG pCO2 VBG pO2 VBG Base Excess 06/15/24 06/15/24 06/15/24 10:17 12:20 14:20 ABG pH 7.01 L* D 7.00 L* 7.03 L* ABG pCO2 122 H* D 130 H* 125 H* ABG pO2 91 D 88 82 L ABG HCO3 31 H 32 H 33 H ABG O2 Saturation 88 L 88 L 87 L ABG Base Excess -3 -2 -1 VBG pH VBG pCO2 VBG pO2 VBG Base Excess 06/15/24 06/15/24 06/16/24 15:55 20:39 00:35 ABG pH 7.03 L* 7.08 L* 7.10 L* ABG pCO2 121 H* 116 H* 118 H* ABG pO2 99 117 H 102 ABG HCO3 32 H 34 H 37 H ABG O2 Saturation 93 97 96 ABG Base Excess -1 2 4 H VBG pH VBG pCO2 VBG pO2 VBG Base Excess 06/16/24 06/16/24 06/17/24 04:45 08:55 05:06 ABG pH 7.17 L* 7.28 L D 7.33 L ABG pCO2 112 H* 88 H* D 96 H* ABG pO2 155 H D 98 D 126 H D ABG HCO3 41 H 41 H 50 H ABG O2 Saturation 99 H 98 99 H ABG Base Excess 9 H 12 H 21 H VBG pH VBG pCO2 VBG pO2 VBG Base Excess 06/17/24 06/17/24 06/18/24 10:58 13:55 04:16 ABG pH 7.29 L 7.29 L 7.33 L ABG pCO2 106 H* D 106 H* 86 H* D ABG pO2 58 L* D 61 L 77 L ABG HCO3 51 H 51 H 45 H ABG O2 Saturation 87 L 88 L 95 ABG Base Excess 21 H 21 H 17 H VBG pH VBG pCO2 VBG pO2 VBG Base Excess 06/19/24 06/20/24 06/21/24 04:18 04:49 04:06 ABG pH 7.42 7.36 7.44 ABG pCO2 63 H D 74 H* D 61 H D ABG pO2 66 L 55 L* 202 H D ABG HCO3 41 H 42 H 42 H ABG O2 Saturation 93 87 L 100 H ABG Base Excess 15 H 14 H 16 H VBG pH VBG pCO2 VBG pO2 VBG Base Excess 06/22/24 06/23/24 06/24/24 04:18 04:29 04:25 ABG pH 7.45 7.46 H 7.29 L D ABG pCO2 57 H 53 H 80 H* D ABG pO2 60 L D 99 D 88 ABG HCO3 40 H 38 H 38 H ABG O2 Saturation 91 99 H 96 ABG Base Excess 14 H 13 H 9 H VBG pH VBG pCO2 VBG pO2 VBG Base Excess 06/24/24 06/25/24 06/25/24 08:50 05:13 11:02 ABG pH 7.40 D 7.46 H Cancelled ABG pCO2 61 H D 53 H Cancelled ABG pO2 110 H D 66 L D Cancelled ABG HCO3 38 H 38 H Cancelled ABG O2 Saturation 99 H 94 Cancelled ABG Base Excess 12 H 13 H Cancelled VBG pH VBG pCO2 VBG pO2 VBG Base Excess 06/25/24 06/26/24 06/26/24 15:53 04:13 11:40 ABG pH 7.39 7.41 7.46 H ABG pCO2 53 H 48 43 ABG pO2 55 L* 58 L* 58 L* ABG HCO3 32 H 30 H 31 H ABG O2 Saturation 86 L 89 L 92 ABG Base Excess 6 H 5 H 6 H VBG pH VBG pCO2 VBG pO2 VBG Base Excess 06/27/24 06/28/24 06/28/24 04:17 04:24 06:22 ABG pH 7.48 H 7.27 L D 7.22 L ABG pCO2 39 72 H* D 83 H* D ABG pO2 49 L* 71 L D 82 L ABG HCO3 29 H 33 H 34 H ABG O2 Saturation 87 L 93 95 ABG Base Excess 5 H 5 H 4 H VBG pH VBG pCO2 VBG pO2 VBG Base Excess 06/28/24 06/29/24 06/30/24 10:18 04:21 07:57 ABG pH 7.32 L D 7.41 7.41 ABG pCO2 64 H D 63 H 62 H ABG pO2 76 L 81 L 59 L* D ABG HCO3 33 H 40 H 40 H ABG O2 Saturation 95 97 88 L ABG Base Excess 6 H 14 H 13 H VBG pH VBG pCO2 VBG pO2 VBG Base Excess 07/02/24 07/03/24 07/04/24 04:05 04:45 04:11 ABG pH 7.46 H 7.43 7.38 ABG pCO2 53 H 58 H 67 H ABG pO2 77 L 100 D 73 L D ABG HCO3 38 H 39 H 40 H ABG O2 Saturation 96 98 94 ABG Base Excess 12 H 13 H 13 H VBG pH VBG pCO2 VBG pO2 VBG Base Excess 07/05/24 07/06/24 07/09/24 04:40 04:08 04:53 ABG pH 7.30 L 7.42 D 7.26 L ABG pCO2 87 H* D 67 H D 94 H* ABG pO2 132 H D 64 L D 149 H ABG HCO3 43 H 43 H 42 H ABG O2 Saturation 99 H 92 100 H ABG Base Excess 14 H 17 H 12 H VBG pH VBG pCO2 VBG pO2 VBG Base Excess 07/11/24 07/12/24 11:34 04:49 ABG pH 7.25 L ABG pCO2 106 H* D ABG pO2 67 L D ABG HCO3 46 H ABG O2 Saturation 91 ABG Base Excess 16 H VBG pH 7.38 VBG pCO2 74 H VBG pO2 148 H VBG Base Excess 16 H Quality Measures Quality Measures sepsis Current suspected stage: ruled out Possible source: pulmonary, GI tract/intra-abdominal, genitourinary and skin/soft tissue Blood cultures ordered: yes Antibiotic ordered: No Assessment & Plan Assessment Current Active Medications: Generic Name Dose Route Start Last Admin Trade Name Freq PRN Reason Stop Dose Admin Acetaminophen 650 mg 06/26/24 15:16 07/12/24 16:43 Acetaminophen Munira 325 Mg/10 Ml Udc GT 07/26/24 15:15 650 mg Q4HR PRN Administration Pain Or Fever > 100.3 Artificial Tears 1 drop 06/18/24 12:00 07/13/24 12:56 Artificial Tears 225 Drop/15 Ml Btl BOTH EYES 07/18/24 11:59 1 drop QID JUAN JOSE Administration Aspirin 81 mg 07/11/24 09:30 07/13/24 08:36 Aspirin 81 Mg Chew PO 08/08/24 10:59 81 mg QDAY JUAN JOSE Administration Atorvastatin Calcium 80 mg 07/10/24 21:00 07/12/24 21:01 Atorvastatin Calcium 20 Mg Tablet PO 08/09/24 20:59 80 mg HS JUAN JOSE Administration Calcium Carbonate 600 mg 06/28/24 13:00 07/13/24 12:57 Calcium Carbonate 600 Mg Tablet GT 07/28/24 12:59 600 mg QDAY@1300 JUAN JOSE Administration Clonazepam 0.5 mg 07/13/24 22:00 Clonazepam 0.5 Mg Tablet PO 07/18/24 21:59 TID JUAN JOSE Docusate Sodium 100 mg 06/25/24 09:13 Docusate Sod Liqd 100 Mg/10 Ml Udc PO 07/22/24 08:59 BID PRN Constipation Protocol Emtricitabine/Tenofovir 1 tab 07/06/24 11:30 07/13/24 08:38 Emtricitabine 200 Mg/Tenofovir 300 Mg Tab (Non-Form) PO 08/19/24 14:33 1 tab QDAY JUAN JOSE Administration Enoxaparin Sodium 80 mg 07/11/24 21:00 07/13/24 08:36 Enoxaparin Sod Inj 80 Mg/0.8 Ml Syringe SC 07/25/24 20:59 80 mg BID JUAN JOSE Administration Ferrous Sulfate 300 mg 07/02/24 10:00 07/13/24 08:36 Ferrous Sulfate 300 Mg/5 Ml Udc GT 07/23/24 09:59 300 mg QDAY JUAN JOSE Administration Gabapentin 400 mg 07/13/24 21:00 Gabapentin 100 Mg Capsule GT 08/12/24 20:59 BID JUAN JOSE Norepinephrine/Dextrose 8 mg in 250 mls @ 6.319 mls/hr 06/30/24 04:17 07/09/24 11:30 Levophed In D5w 8mg/250ml IV 07/30/24 04:16 0 mcg/kg/min .Q24H PRN 0 mls/hr PER PROTOCOL Titration Protocol 0.05 MCG/KG/MIN Dexmedetomidine/Sodium Chloride 200 mcg in 50 mls @ 4.01 mls/hr 07/13/24 04:40 07/13/24 11:42 Precedex Ivpb IV 08/12/24 04:29 0 mcg/kg/hr .[id number] PRN 0 mls/hr Per PROTOCOL Titration Protocol 0.2 MCG/KG/HR Propofol 1,000 mg in 100 mls @ 2.406 mls/hr 07/13/24 05:05 Diprivan Ivpb IV 08/03/24 06:38 .Q24H PRN PER PROTOCOL Protocol 5 MCG/KG/MIN Methadone HCl 20 mg 07/12/24 22:00 07/13/24 13:03 Methadone Hcl 10 Mg Tablet GT 07/17/24 21:59 20 mg Q8HR JUAN JOSE Administration Methylprednisolone 20 mg 07/14/24 09:00 Methylprednisolone 4 Mg Tablet PO 08/13/24 08:59 QDAY JUAN JOSE Pantoprazole Sodium 40 mg 07/07/24 09:32 07/13/24 08:36 Pantoprazole Inj 40 Mg Vial IV 08/06/24 09:31 40 mg QDAY JUAN JOSE Administration Phenobarbital 60 mg 07/12/24 14:00 07/13/24 13:04 Phenobarbital Elix 20 Mg/5 Ml Udc GT 07/26/24 13:59 60 mg TID JUAN JOSE Administration Protocol Raltegravir 400 mg 07/06/24 11:30 07/13/24 08:36 Raltegravir 400 Mg Tablet NG 08/19/24 14:33 400 mg BID JUAN JOSE Administration Sevelamer Carbonate 800 mg 07/08/24 07:30 07/13/24 13:03 Sevelamer Carbonate 800 Mg Tablet PO 08/07/24 07:29 800 mg TID JUAN JOSE Administration Trimethoprim/Sulfamethoxazole 20 ml 06/23/24 09:00 07/13/24 08:37 Trimethoprim/Sulfa Susp 1 Ml PO 06/22/25 12:00 20 ml QDAY JUAN JOSE Administration Plan 39-year-old male patient with no PMHx who initially presented to [facility] on 05/27/2024 with a chief complaint of shortness of breath and cough, with associated chills, body aches, generalized weakness, fever, and night sweats beginning weeks prior but progressively worsening over a few days is currently being treated for acute hypoxic respiratory failure secondary to PCP pneumonia that was complicated by ventilator associated pneumonia. Patient is currently on tracheostomy tube and mechanically ventilated. 07/13/24: The patient was evaluated and examined at the bedside this morning. Overnight, the patient was having severe tremors, and was started on Precedex drip, initially tremors resolved but later required midazolam 2 mg IV x 1 followed by midazolam 4 mg IV x 1 which resolved his tremors. He is still tachycardic in 110s. We will continue with the volume control setting at this point and start him on SIMV with TV 500cc, PS 15, PEEP 10 and RR 10 in the evening. We will continue with phenobarbital 60 Mg 3 times daily, decreased clonazepam to 0.5 Mg 3 times daily, continue with Precedex drip, and increased the dose of gabapentin to 400 Mg twice daily. We will do lab work every 72 hours. The plan is to try with SAT in a couple of days. NEURO Patient is sedated and mechanically ventilated through tracheostomy tube. 06/05/2024 Patient was intubated, sedated, and paralyzed for ARDS. -We will continue with phenobarbital 60 Mg 3 times daily, decreased clonazepam to 0.5 Mg 3 times daily, continue with Precedex drip, and increased the dose of gabapentin to 400 Mg twice daily #Rt Parietal ischemic Stroke MRI on 07/08 Large area of restricted diffusion in the left frontal parietal white matter and small foci in the right parietal white matter most consistent with acute infarction -Started on aspirin 81mg daily and atorvastatin 80mg daily at night. #Fever, resolved #Withdrawal syndrome, stable Multiple cultures has been negative -Repeat influenza and COVID test on 07/04 negative -Repeat blood, urine and sputum culture are negative -Treat underlying condition -Tylenol as needed CARDIO #Right subclavian and axillary vein DVT. -Doppler US right upper extremity 06/17/24: revealed RUE DVT -On Heparin Drip 06/17-07/09, On Enoxaparin 75mg BID 07/11- #Sinus tachycardia Tachycardia most likely secondary to acute respiratory distress syndrome contributed by withdrawal while tapering the dose of IV sedatives -Continue to treat underlying cause #Shock, resolved Most likely 2/2 sedation. BC has been negative and on appropriate antibiotics Patient presented with septic shock secondary to severe extensive bilateral pneumonia. After resolution of initial septic shock, patient developed new hypotension, tachycardia, tachypnea, fevers indicated of septic shock. -Pressor support as needed -Linezolid (started 06/27-07/04) -Meropenem (started 06/27-07/04) -Urine (06/27) showed resistant staph epi -Blood (06/27) showed resistant Staphylococcus haemolyticus -follow up repeat blood cultures and urine cultures -taper down sedatives as tolerated PULM #Chronic hypoxic respiratory failure 2/2 # Acute respiratory distress syndrome in the setting of post PCP pneumonia state Secondary to #Bilateral pneumocystis jirovecii pneumonia, resolved #Healthcare associated pneumonia, resolved, resolved #Ventilator associated pneumonia, resolved #S/P Tracheostomy #Pneumomediastinum, resolved -ABG done on 07/12/24 was significant for pH of 7.25, pCO2 106, bicarb 46. On vent support -Titrate down FiO2 as tolerated GI GI prophylaxis: IV pantoprazole 40 Mg daily #Elevated LFTs 2/2 HIV DDx: adverse affect of drugs, we had discontinued oxycodone previously, and phenobarbitol Liver enzymes started trending down after discontinuing oxycodone and phenobarbitol. liver US 05/30/2024 showed normal gallbladder and hepatomegaly without lesions or evidence of obstructions. Hep panel negative. LFTs downtrending Plan: -Continue monitoring #Hypertriglyceridemia, down trending secondary to propofol use, -Discontinued propofol NEPHRO #Central diabetes insipidus, resolved #Hypophosphatemia,resolved #WILL, resolved #Hyperkalemia On 07/12/24 K 5.8, Received 30g kayexalate #Mild hyponatremia Secondary to SIADH due to acute hypoxic respiratory failure leading to pulmonary distress -Continue to monitor #Hyperphosphetemia, stable -on sevelamir 800mg TID and calcium carbonate 600mg daily #NAGMA #Primary Respiratory acidosis partially compensated by metabolic alkalosis Secondary to increased work of breathing and increased RR 2/2 chronic hypoxic respiratory failure and chronic respiratory distress syndrome in the setting of tapering down of IV sedatives -ABGs 07/12 pH of 7.25, pCO2 106, bicarb 46 -We will treat the underlying cause respiratory acidosis HEME #Leukocytosis, improved #Microcytic anemia 2/2 STEPHY and Inflammatory anemia Stable, has not required any transfusions this admission thus far. Clinically no evidence of bleeding. Iron panel shows iron 17, TIBC 262, iron saturation 6, unsaturated iron binding 245. Peripheral blood film confirms microcytic hypochromic anemia with target cells. Also daily lab draws contributing. Plan: -Started on oral ferrous sulfate 300 Mg daily -Monitor H&H. Transfusing for Hgb <7 #Thrombocytosis, resolved Likely reactive in the setting of withdrawal syndrome -Continue to monitor ENDO #Hypoglycemia, resolved ID #Bilateral pneumocystis pneumonia, resolved #Healthcare associated pneumonia, resolved #Ventilator associated pneumonia, resolved #PCP pneumonia prophylaxis Negative studies: Cocci IgM and IgG, Hepatitis panel, Syphilis, Legionella, H.flu, N.meningitidis, Strep B, Strep pneumoniae, COVID, RSV, Flu A & B. TB quantiferon GOLD-indeterminate, however 06/05 AFB negative, CMV IgM, cryptococcal antigen negative. G6PD levels came back normal for consideration of dapsone alternative to Bactrim if needed. Patient completed 5 day course of azithromycin, 16 days of Zosyn. See Pulm for timeline of antimicrobial coverage. On 06/27 patient developed new septic shock Plan: -Antibiotcs Bactrim for prevention of PCP pneumonia in the setting of CD4 count of 116 -Linezolid and meropenum restarted on 06/27/2024-07/04/24 -Urine ackerman port grew GPC, Staph epidermidis that is MDR, sensitive to linezolid. -Fungal cultures from BAL pending, follow-up on results -Blood cultures from 06/26/2024 and 06/27/2024, negative so far, cultures drawn on 06/29/2024 is pending -Follow up blood, sputum, and urine cultures were negative -Repeat blood, urine, sputum cultures were ordered on 07/07/2024- negative #AIDS/HIV Patient has Stage 4 HIV, AIDS-defining illness with opportunistic infection. 06/07/2024 Bronchoalveolar lavage cytology shows Pneumocystis jirovecii. Also other fungi, possibly Kassandra. Kassandra is most likely a contaminant. Blood [id number] also positive. 06/08/2024 HIV quant 5.66 million copies. HIV 1 positive confirmed. 06/09/2024 Patient's decision maker, Francesca, was informed of diagnosis due to critical state of patient. Absolute CD4 count 87 and 22% on 06/02. History/risk factors: History of injection anabolic androgenic steroid and testosterone use, possible unclean needles. History of incarceration (unknown time). Tattoos received as a teenager. Has 1 female sexual partner last 5 years, denies others. -Continue HAART: emtricitabine / tenofovir (Truvada) and raltegravir initiated 06/09/24 -Patient is not aware of his diagnosis as he has been intubated and sedated before results returned. Will require complete education and counseling on the disease if his mental status and clinical condition improves. #IRIS The patient has been on HAART for around 4 weeks and given the presentation of ARDS, with negative BC, positive for fever, and on appropriate antibiotics, still having respiratory distress with breathy stacking there is a high possibility of IRIS -Continue on methylprednisone 40mg IV BID until 07/08/2024, Daily from 07/09-07/13 -On oral methylpred 20mg daily 07/14- MSK #Elevated creatine kinase -Down trended SKIN #Lower lip abrasion #Right forearm blisters -Improving -Monitor closely Dispo: Patient was admitted to ICU unit for the management of acute hypoxic respiratory failure 2/2 PCP pneumonia in the 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 The patient is being downgraded to telemetry unit for further management of chronic hypoxic respiratory failure s/p tracheostomy. DVT prophylaxis: On enoxaparin 75mg BID for treatment of right upper extremity DVT GI prophylaxis: Pantoprazole 40 mg IV qday Diet: Tube feeds Ackerman: No, condom cath Lines: Peripheral IV, removed rt femoral central line on 06/28/24 Antibiotics: Bactrim CODE STATUS: DNR/DNI The patient's management plan was discussed with my attending physician MD Jeff Hamilton MD, PGY2 Attending Provider Attestation/Addendum Patient seen and examined with above resident, Jeff Pacheco MD. I agree with the findings, assessment, and plan of care as documented except for any differences below. Patient with continued slow improvement with downtrending requirement for Precedex but had episodes of tremors which did respond to Versed administered by the overnight team. Patient remains on appropriate regimen with phenobarbital/ clonazepam/gabapentin/methadone to continue transition of oral prolonged IV sedation. Patient remains on appropriate therapy with Lovenox twice daily for subclavian DVT. Continued on ART therapy as well as Bactrim prophylaxis. Completed course of antibiotics with no evidence of infection at this point. No recurrent fevers though he does remain tachycardic likely in the presence of slow weaning of his sedation. Patient remains on methylprednisolone, will begin transition to oral regimen tomorrow. Patient's family updated at bedside with plan for slow weaning the coming days so that they can help make decision for as long-term outcome based on his neurologic recovery. Notably with significant bilateral parietal infarction now on appropriate statin/aspirin therapy. Remains synchronous with the ventilator now that he is on SIMV intermittent large volumes which are tolerable now that he is outside of the acute phase of ARDS with significant pulmonary fibrosis likely to persist. He may continue to improve as evidenced by his gas exchange. Total critical care time: I personally spent 35 minutes for review of physiologic parameters, directing plan of care throughout the day, coordination of care with other subspecialties, and counseling patient's family at bedside. Patient continues to require critical care services for acute hypoxic respiratory failure secondary to ARDS from PCP pneumonia with superimposed ventilator associated pneumonia now complicated by persistent encephalopathy versus delirium. Patient remains at risk for further morbidity and mortality warranting ongoing care and management only available in the intensive care unit.
[2024-07-13] MEDS: GABAPENTIN 100 MG CAPSULE 400 MG GT (20:41)
[2024-07-13] MEDS: ATORVASTATIN CALCIUM 20 MG TABLET 80 MG PO (20:41)
[2024-07-13] MEDS: clonazePAM 0.5 MG TABLET PO (22:15)
--- NOTE | 2024-07-13 22:43 | PD.NEUROPROG ---
Documentation for date of: 07/13/24 Subjective Subjective Interval history: Patient is in ICU, off of fentanyl, Precedex, propofol and on methadone. He has a trach in place. Exam - Neurology Vital Signs Temp Pulse Resp BP Pulse Ox O2 Del Method O2 Flow Rate 98.9 F 110 H 24 H 148/84 H 99 Mechanical Ventilation 40 07/13/24 16:00 07/13/24 19:28 07/13/24 12:00 07/13/24 19:28 07/13/24 19:28 07/13/24 16:00 06/09/24 12:16 FiO2 70 07/13/24 19:28 Narrative Exam GENERAL APPEARANCE: Well hydrated, well-nourished in no acute distress. HEENT: Normocephalic, atraumatic, extraocular movements intact. Pupils: Equal reacting to light and accommodation NECK: Supple, no JVD or bruits. CARDIOVASULAR: Heart: S1, S2 heard, regular without S3-S4 or murmur no rubs or gallops. LUNGS/CHEST: Tracheostomy in place. ABDOMEN: Soft, nontender, with normal bowel sounds. No pulsatile masses. No rebound, rigidity, or guarding. Normal inspection and palpation. EXTREMITIES: Normal inspection and palpation. No edema, clubbing or cyanosis. SKIN: Warm and dry without rashes. Normal inspection. MUSCULOSKELETAL: No cervical, thoracic, lumbar or midline bony tenderness. Normal inspection. NEURO: Comatose, no response to verbal commands or painful stimulation, brainstem function: Partly intact PSYCHIATRIC: Limited Objective Labs 07/12/24 08:16 07/12/24 08:16 ABG Interpretation ABG results: 05/27/24 05/29/24 05/29/24 23:37 10:44 22:08 ABG pH 7.51 H 7.50 H 7.48 H ABG pCO2 28 L 32 32 ABG pO2 75 L 79 L 145 H D ABG HCO3 23 25 24 ABG O2 Saturation 96 95 98 ABG Base Excess 0 2 1 VBG pH VBG pCO2 VBG pO2 VBG Base Excess 05/30/24 05/31/24 06/04/24 08:45 04:54 02:10 ABG pH 7.47 H 7.45 7.45 ABG pCO2 35 38 36 ABG pO2 86 D 82 L 139 H ABG HCO3 26 26 25 ABG O2 Saturation 97 96 98 ABG Base Excess 2 2 1 VBG pH VBG pCO2 VBG pO2 VBG Base Excess 06/04/24 06/05/24 06/05/24 18:16 11:36 12:59 ABG pH 7.44 7.11 L* D 7.20 L ABG pCO2 36 94 H* D 68 H D ABG pO2 80 L D 150 H D 121 H D ABG HCO3 24 30 H 26 ABG O2 Saturation 94 97 97 ABG Base Excess 0 -2 -3 VBG pH VBG pCO2 VBG pO2 VBG Base Excess 06/05/24 06/06/24 06/06/24 19:25 04:13 15:27 ABG pH 7.22 L 7.27 L 7.30 L ABG pCO2 64 H 57 H 60 H ABG pO2 122 H 153 H D 74 L D ABG HCO3 26 26 29 H ABG O2 Saturation 97 99 H 92 ABG Base Excess -3 -2 2 VBG pH VBG pCO2 VBG pO2 VBG Base Excess 06/07/24 06/07/24 06/08/24 03:55 09:59 04:20 ABG pH 7.41 D 7.43 7.45 ABG pCO2 56 H 55 H 50 H ABG pO2 293 H D 78 L D 75 L ABG HCO3 36 H 37 H 35 H ABG O2 Saturation 99 H 95 94 ABG Base Excess 10 H 11 H 10 H VBG pH VBG pCO2 VBG pO2 VBG Base Excess 06/08/24 06/08/24 06/08/24 11:05 11:50 13:18 ABG pH 7.17 L* D 7.10 L* 7.15 L* ABG pCO2 95 H* D 115 H* D 88 H* D ABG pO2 89 75 L 72 L ABG HCO3 34 H 36 H 31 H ABG O2 Saturation 92 84 L 85 L ABG Base Excess 3 4 H 0 VBG pH VBG pCO2 VBG pO2 VBG Base Excess 06/08/24 06/09/24 06/09/24 17:02 01:33 03:15 ABG pH 7.18 L* 7.22 L 7.27 L ABG pCO2 50 H D 91 H* D 82 H* ABG pO2 82 L 105 D 86 ABG HCO3 19 L 37 H 38 H ABG O2 Saturation 93 97 95 ABG Base Excess -9 L 7 H 9 H VBG pH VBG pCO2 VBG pO2 VBG Base Excess 06/09/24 06/09/24 06/10/24 05:08 12:52 04:40 ABG pH 7.31 L 7.33 L 7.30 L ABG pCO2 75 H* 57 H D 78 H* D ABG pO2 97 158 H D 65 L D ABG HCO3 38 H 30 H 38 H ABG O2 Saturation 97 99 H 90 L ABG Base Excess 10 H 3 9 H VBG pH VBG pCO2 VBG pO2 VBG Base Excess 06/10/24 06/11/24 06/12/24 09:40 04:19 04:15 ABG pH 7.27 L 7.35 7.48 H D ABG pCO2 88 H* D 86 H* 63 H D ABG pO2 65 L 70 L 76 L ABG HCO3 40 H 48 H 47 H ABG O2 Saturation 89 L 93 95 ABG Base Excess 10 H 19 H 21 H VBG pH VBG pCO2 VBG pO2 VBG Base Excess 06/13/24 06/14/24 06/15/24 07:22 04:32 03:45 ABG pH 7.46 H 7.48 H 7.46 H ABG pCO2 56 H 40 D 37 ABG pO2 80 L 64 L 71 L ABG HCO3 39 H 30 H 27 H ABG O2 Saturation 95 92 94 ABG Base Excess 13 H 6 H 3 VBG pH VBG pCO2 VBG pO2 VBG Base Excess 06/15/24 06/15/24 06/15/24 10:17 12:20 14:20 ABG pH 7.01 L* D 7.00 L* 7.03 L* ABG pCO2 122 H* D 130 H* 125 H* ABG pO2 91 D 88 82 L ABG HCO3 31 H 32 H 33 H ABG O2 Saturation 88 L 88 L 87 L ABG Base Excess -3 -2 -1 VBG pH VBG pCO2 VBG pO2 VBG Base Excess 06/15/24 06/15/24 06/16/24 15:55 20:39 00:35 ABG pH 7.03 L* 7.08 L* 7.10 L* ABG pCO2 121 H* 116 H* 118 H* ABG pO2 99 117 H 102 ABG HCO3 32 H 34 H 37 H ABG O2 Saturation 93 97 96 ABG Base Excess -1 2 4 H VBG pH VBG pCO2 VBG pO2 VBG Base Excess 06/16/24 06/16/24 06/17/24 04:45 08:55 05:06 ABG pH 7.17 L* 7.28 L D 7.33 L ABG pCO2 112 H* 88 H* D 96 H* ABG pO2 155 H D 98 D 126 H D ABG HCO3 41 H 41 H 50 H ABG O2 Saturation 99 H 98 99 H ABG Base Excess 9 H 12 H 21 H VBG pH VBG pCO2 VBG pO2 VBG Base Excess 06/17/24 06/17/24 06/18/24 10:58 13:55 04:16 ABG pH 7.29 L 7.29 L 7.33 L ABG pCO2 106 H* D 106 H* 86 H* D ABG pO2 58 L* D 61 L 77 L ABG HCO3 51 H 51 H 45 H ABG O2 Saturation 87 L 88 L 95 ABG Base Excess 21 H 21 H 17 H VBG pH VBG pCO2 VBG pO2 VBG Base Excess 06/19/24 06/20/24 06/21/24 04:18 04:49 04:06 ABG pH 7.42 7.36 7.44 ABG pCO2 63 H D 74 H* D 61 H D ABG pO2 66 L 55 L* 202 H D ABG HCO3 41 H 42 H 42 H ABG O2 Saturation 93 87 L 100 H ABG Base Excess 15 H 14 H 16 H VBG pH VBG pCO2 VBG pO2 VBG Base Excess 06/22/24 06/23/24 06/24/24 04:18 04:29 04:25 ABG pH 7.45 7.46 H 7.29 L D ABG pCO2 57 H 53 H 80 H* D ABG pO2 60 L D 99 D 88 ABG HCO3 40 H 38 H 38 H ABG O2 Saturation 91 99 H 96 ABG Base Excess 14 H 13 H 9 H VBG pH VBG pCO2 VBG pO2 VBG Base Excess 06/24/24 06/25/24 06/25/24 08:50 05:13 11:02 ABG pH 7.40 D 7.46 H Cancelled ABG pCO2 61 H D 53 H Cancelled ABG pO2 110 H D 66 L D Cancelled ABG HCO3 38 H 38 H Cancelled ABG O2 Saturation 99 H 94 Cancelled ABG Base Excess 12 H 13 H Cancelled VBG pH VBG pCO2 VBG pO2 VBG Base Excess 06/25/24 06/26/24 06/26/24 15:53 04:13 11:40 ABG pH 7.39 7.41 7.46 H ABG pCO2 53 H 48 43 ABG pO2 55 L* 58 L* 58 L* ABG HCO3 32 H 30 H 31 H ABG O2 Saturation 86 L 89 L 92 ABG Base Excess 6 H 5 H 6 H VBG pH VBG pCO2 VBG pO2 VBG Base Excess 06/27/24 06/28/24 06/28/24 04:17 04:24 06:22 ABG pH 7.48 H 7.27 L D 7.22 L ABG pCO2 39 72 H* D 83 H* D ABG pO2 49 L* 71 L D 82 L ABG HCO3 29 H 33 H 34 H ABG O2 Saturation 87 L 93 95 ABG Base Excess 5 H 5 H 4 H VBG pH VBG pCO2 VBG pO2 VBG Base Excess 06/28/24 06/29/24 06/30/24 10:18 04:21 07:57 ABG pH 7.32 L D 7.41 7.41 ABG pCO2 64 H D 63 H 62 H ABG pO2 76 L 81 L 59 L* D ABG HCO3 33 H 40 H 40 H ABG O2 Saturation 95 97 88 L ABG Base Excess 6 H 14 H 13 H VBG pH VBG pCO2 VBG pO2 VBG Base Excess 07/02/24 07/03/24 07/04/24 04:05 04:45 04:11 ABG pH 7.46 H 7.43 7.38 ABG pCO2 53 H 58 H 67 H ABG pO2 77 L 100 D 73 L D ABG HCO3 38 H 39 H 40 H ABG O2 Saturation 96 98 94 ABG Base Excess 12 H 13 H 13 H VBG pH VBG pCO2 VBG pO2 VBG Base Excess 07/05/24 07/06/24 07/09/24 04:40 04:08 04:53 ABG pH 7.30 L 7.42 D 7.26 L ABG pCO2 87 H* D 67 H D 94 H* ABG pO2 132 H D 64 L D 149 H ABG HCO3 43 H 43 H 42 H ABG O2 Saturation 99 H 92 100 H ABG Base Excess 14 H 17 H 12 H VBG pH VBG pCO2 VBG pO2 VBG Base Excess 07/11/24 07/12/24 11:34 04:49 ABG pH 7.25 L ABG pCO2 106 H* D ABG pO2 67 L D ABG HCO3 46 H ABG O2 Saturation 91 ABG Base Excess 16 H VBG pH 7.38 VBG pCO2 74 H VBG pO2 148 H VBG Base Excess 16 H Assessment & Plan Assessment and plan (1) Acute respiratory failure with hypoxia: Status: Acute Assessment and plan: Trached and on ventilator Coming off of the sedation, including clonazepam, phenobarbital and Seroquel. Continue with the gabapentin and methadone for now. His condition is critical and his prognosis is poor. No significant improvement noted with weaning from sedation. (2) Acute ischemic stroke: Status: Acute Assessment and plan: Continue with aspirin, Plavix and statin MRI brain showed multiple acute nonhemorrhagic infarction involving the left parietal area, could be from hypotension/hypoxia causing watershed infarct (3) DVT (deep venous thrombosis): Status: Acute Assessment and plan: Started on Lovenox as he has DVT right subclavian and axillary vein Procedures Arterial Line Size (Gauge): 20
[2024-07-14] VITALS (30 sets, daily range): BP systolic 143–179; BP diastolic 72–90; PULSE 105–122; RESP 15–32; TEMP 36.6–37.2; O2SAT 87–100
--- NOTE | 2024-07-14 03:27 | RESP.EEG ---
07/14/24 @ 0329 No EEG done at this time due to high census and low staffing.
[2024-07-14 05:00] LABS: Base Excess 24 (-3-3); HCO3 53 mEq/L (20-26); Inspired Oxygen, FIO2 70 %; O2 Saturation 90 % (91-98); PCO2 94 mmHg (32.0-48.0); pH, Arterial 7.36 (7.35-7.45)
[2024-07-14 05:02] LABS: Allen Test Performed/OK; Puncture Site Left Radial
[2024-07-14 05:03] LABS: PO2 59 mmHg (83-108)
[2024-07-14] MEDS: clonazePAM 0.5 MG TABLET PO ×2 (05:49→20:40)
[2024-07-14] MEDS: METHADONE HCL 10 MG TABLET 20 MG GT ×3 (05:49→21:18)
[2024-07-14] MEDS: SEVELAMER CARBONATE 800 MG TABLET PO (05:49)
[2024-07-14] MEDS: Artificial Tears 225 DROP/15 ML BTL BOTH EYES ×4 (05:50→20:39)
[2024-07-14] MEDS: PHENOBARBITAL ELIX 20 MG/5 ML 60 MG GT ×2 (05:50→20:39)
[2024-07-14 05:51] LABS: Basophils # (Auto) 0.1 Thou/mm3 (0.0-0.2); Basophils % (Auto) 0 % (0-2.5); Eosinophils # (Auto) 0.1 Thou/mm3 (0.0-0.5); Eosinophils % (Auto) 1 % (0-10); Hematocrit 25.6 % (41.0-53.0); Immature Granulocytes % (Auto) 1 % (0-0); Immature Granulocytes Auto 0.18 Thou/mm3 (0.00-0.00); Lymphocytes # (Auto) 0.8 Thou/mm3 (1.0-4.8); Lymphocytes % (Auto) 5 % (10-50); Mean Corpuscular HGB Conc 28.5 g/dl (31.0-37.0); Mean Corpuscular Hemoglobin 25.3 pg (25.0-35.0); Mean Corpuscular Volume 89 fL (80-100); Monocytes # (Auto) 1.9 Thou/mm3 (0.0-0.8); Monocytes % (Auto) 13 % (0-12); Neutrophils # (Auto) 12.1 Thou/mm3 (1.8-7.7); Neutrophils % (Auto) 80 % (37-80); Nucleated Red Blood Cell # 0.04 Thou/mm3 (0.00-0.00); Nucleated Red Blood Cell % 0 /100 WBC (0); Platelet Count 281 Thou/mm3 (140-440); RDW Standard Deviation 76.6 fL (35.1-43.9); Red Blood Count 2.89 Miln/mm3 (4.50-5.90); White Blood Count 15.1 Thou/mm3 (3.8-10.6)
[2024-07-14 06:01] LABS: Hemoglobin 7.3 g/dL (13.5-16.0)
--- NOTE | 2024-07-14 06:30 | XR_ITS ---
Examination: AP chest single view TECHNIQUE: AP portable semiupright chest single view Exam date and time: July 14, 2024 0554 hours Comparison July 09, 2024 INDICATIONS: Again noted severe bilateral lung opacity Tracheostomy tube tip 4.6 cm above sunil Normal heart size IMPRESSION: Again noted severe bilateral pneumonia ARDS pattern
[2024-07-14 06:36] LABS: HIV Genotype* DETECTED
[2024-07-14 06:53] LABS: Alanine Aminotransferase 94 U/L (10-49); Alkaline Phosphatase 298 U/L (46-116); Anion Gap 8 (7-16); Aspartate Amino Transferase 91 U/L (0-34); BUN/Creatinine Ratio 42 Ratio (12-20); Bilirubin,Total 0.2 mg/dL (0.3-1.2); Blood Urea Nitrogen 25 mg/dL (9-23); Calcium 8.5 mg/dL (8.3-10.6); Calcium (Corrected) 9.3 mg/dL (8.5-10.1); Carbon Dioxide > 40.0 mMol/L (20.0-31.0); Chloride 91 mMol/L (98-107); Creatinine (Component) 0.6 mg/dL (0.6-1.3); Estimated Creatinine Clearance 166.1 mL/min (>60); Globulin 2.9 gm/dL (2.3-3.5); Glucose 99 mg/dL (74-106); Magnesium 1.8 mg/dL (1.6-2.6); Osmolality,Calculated 281 (275-295); Phosphorous 2.3 mg/dL (2.4-5.1); Potassium 4.4 mMol/L (3.4-5.1); Sodium 139 mMol/L (136-145); Total Protein 5.9 gm/dL (5.7-8.2); eGFR > 60 See Note
[2024-07-14] MEDS: Ferrous Sulfate 300 MG/5 ML UDC GT (08:25)
[2024-07-14] MEDS: PANTOPRAZOLE INJ 40 MG VIAL IV (08:26)
[2024-07-14] MEDS: ENOXAPARIN SOD INJ 80 MG/0.8 ML SYRINGE SC ×2 (08:26→20:40)
[2024-07-14] MEDS: ASPIRIN 81 MG CHEW PO (08:26)
[2024-07-14] MEDS: Magnesium Sulfate 4 GM Ivpb 4 GM/50 ML BAG IV (08:26)
[2024-07-14] MEDS: NAPH,KPH MBDB 1 PACKET (1.5 GM) PO (08:26)
[2024-07-14] MEDS: RALTEGRAVIR 400 MG TABLET NG ×2 (08:27→20:39)
[2024-07-14] MEDS: EMTRICITABINE 200 MG/TENOFOVIR 300 MG TAB (NON-FORM) 1 TAB PO (08:28)
[2024-07-14] MEDS: GABAPENTIN 100 MG CAPSULE 400 MG GT ×2 (08:29→20:39)
[2024-07-14] MEDS: SULFAMETHOXAZOLE PO (08:36)
[2024-07-14] MEDS: TRIMETHOPRIM PO (08:36)
[2024-07-14] MEDS: methylPREDNISolone 4 MG TABLET 20 MG PO (09:19)
[2024-07-14 09:31] LABS: Base Excess 27 (-3-3); HCO3 54 mEq/L (20-26); Inspired Oxygen, FIO2 80 %; O2 Saturation 92 % (91-98); PCO2 83 mmHg (32.0-48.0); PO2 61 mmHg (83-108); pH, Arterial 7.42 (7.35-7.45)
[2024-07-14 09:41] LABS: Allen Test Performed/OK; Puncture Site Left Radial
--- NOTE | 2024-07-14 14:05 | ESPR_ITS ---
Documentation for date of: 07/14/24 Subjective Subjective Interval history: 07/11/24: The patient was evaluated and examined at the bedside this morning. He was saturating 93% on FiO2 65%, plateau pressure of 32 and tidal volume 500 cc, with RR 30. He was tachycardic between 120-130. We are weaning him off from Precedex, we also got down the doses of clonazepam 2 Mg 3 times daily to 1 Mg 3 times daily, phenobarbital 180 Mg 3 times daily to 90 Mg 3 times daily, Seroquel 100 Mg twice daily to 50 Mg twice daily, and we will continue with methadone 10 mg 3 times daily and gabapentin 200 Mg twice daily. We will try SAT by tomorrow. We will get labs done tomorrow along with ABG. He was started on Lovenox 75 Mg SQ twice daily for RUE DVT. 07/12/2024: The patient was evaluated and examined at the bedside this morning. He was saturating 95 to 96% on FiO2 65%, plateau pressure of 22, tidal volume 500 cc, RR 28-30. ABG done was significant for pH of 7.25, pCO2 106, bicarb 46. Ventilator mode was changed to pressure support of 25, and FiO2 decreased to 60%. He was tachycardic in 110s. Patient still unresponsive to painful stimulus. We will decrease phenobarbital 90 Mg to 60 Mg 3 times daily, and Seroquel 50 Mg twice daily to Seroquel 50 Mg at bedtime, and continue with methadone 10 Mg 3 times daily and gabapentin 200 Mg twice daily. We will slowly taper down his oral sedatives, and try SAT in couple of days. 07/13/24: The patient was evaluated and examined at the bedside this morning. Overnight, the patient was having severe tremors, and was started on Precedex drip, initially tremors resolved but later required midazolam 2 mg IV x 1 followed by midazolam 4 mg IV x 1 which resolved his tremors. He is still tachycardic in 110s. We will continue with the volume control setting at this point and start him on SIMV with TV 500cc, PS 15, PEEP 10 and RR 10 in the evening. We will continue with phenobarbital 60 Mg 3 times daily, decreased clonazepam to 0.5 Mg 3 times daily, continue with Precedex drip, and increased the dose of gabapentin to 400 Mg twice daily. We will do lab work every 72 hours. The plan is to try with SAT in a couple of days. 07/14/24: The patient was evaluated and examined at the bedside this morning. Patient did not had any overnight events. We have discontinued all IV sedatives, and we decreased the frequency of doses of phenobarbital 60 Mg twice daily, clonazepam 0.5 Mg twice daily, and will continue gabapentin 400 Mg twice daily along with methadone 20 Mg 3 times daily. Lung compliance seems to be improving. His white count was 15.1, ABG done revealed pCO2 83, bicarb 54 with phosphorus 2.3. Phosphorus and magnesium was repleted. Liver enzymes trending down. We ordered EEG to evaluate for any further anoxic brain injury. We will try to get SAT in a couple of days. Exam Vital Signs Temp Pulse Resp BP Pulse Ox O2 Del Method O2 Flow Rate 98.8 F 108 H 24 H 164/86 H 90 L Mechanical Ventilation 40 07/14/24 12:00 07/14/24 12:00 07/13/24 12:00 07/14/24 12:00 07/14/24 12:00 07/13/24 16:00 06/09/24 12:16 FiO2 55 07/14/24 12:00 Narrative Exam GEN: Critically ill, not acutely distressed, sedated and mechanically ventilated. Neuro: Deferred due to sedation. HEENT: NCAT, tracheostomy tube on appropriate position. CVS: Mildly tachycardic, no M/R/G. No JVD Respi: Mechanically ventilated, b/l breath sounds heard, significant rhonchi in all lung rosas ABD: Soft, no grimace to palpation, bowel sounds present in all 4 quadrants, PEG tube in appropriate place Skin: warm, dry and intact. Extremities: Pulses 2+ in all extremities, bilateral upper extremity 1+ edema, ruptured vesicles 1-2 cm on the rt forearm surface that have been healing. Objective Labs 07/26/24 05:00 07/26/24 05:36 Labs: Laboratory Results - last 24 hr 07/05/24 07/14/24 07/14/24 06:11 04:41 04:45 WBC 15.1 H RBC 2.89 L Hgb 7.3 L Hct 25.6 L MCV 89 MCH 25.3 MCHC 28.5 L RDW Std Deviation 76.6 H Plt Count 281 Neut % (Auto) 80 Lymph % (Auto) 5 L Isabela % (Auto) 13 H Eos % (Auto) 1 Baso % (Auto) 0 Neut # (Auto) 12.1 H Lymph # (Auto) 0.8 L Isabela # (Auto) 1.9 H Eos # (Auto) 0.1 Baso # (Auto) 0.1 Immature Gran # (Auto) 0.18 H Absolute Nucleated RBC 0.04 H Immature Gran % 1 H Nucleated RBC % 0 Puncture Site Left Radial ABG pH 7.36 D ABG pCO2 94 H* D ABG pO2 59 L* ABG HCO3 53 H ABG O2 Saturation 90 L ABG Base Excess 24 H FiO2 70 Sodium 139 Potassium 4.4 D Chloride 91 L Carbon Dioxide > 40.0 H Anion Gap 8 BUN 25 H Creatinine 0.6 Estim Creat Clear Calc 166.1 eGFR > 60 BUN/Creatinine Ratio 42 H Glucose 99 Calculated Osmolality 281 Calcium 8.5 Corrected Calcium 9.3 Phosphorus 2.3 L Magnesium 1.8 Total Bilirubin 0.2 L AST 91 H ALT 94 H Alkaline Phosphatase 298 H D Total Protein 5.9 Albumin 3.0 L Globulin 2.9 Albumin/Globulin Ratio 1.0 L HIV Genotype DETECTED A Misc Test Result See Mar Rpt 07/14/24 09:21 WBC RBC Hgb Hct MCV MCH MCHC RDW Std Deviation Plt Count Neut % (Auto) Lymph % (Auto) Isabela % (Auto) Eos % (Auto) Baso % (Auto) Neut # (Auto) Lymph # (Auto) Isabela # (Auto) Eos # (Auto) Baso # (Auto) Immature Gran # (Auto) Absolute Nucleated RBC Immature Gran % Nucleated RBC % Puncture Site Left Radial ABG pH 7.42 ABG pCO2 83 H* D ABG pO2 61 L ABG HCO3 54 H ABG O2 Saturation 92 ABG Base Excess 27 H FiO2 80 Sodium Potassium Chloride Carbon Dioxide Anion Gap BUN Creatinine Estim Creat Clear Calc eGFR BUN/Creatinine Ratio Glucose Calculated Osmolality Calcium Corrected Calcium Phosphorus Magnesium Total Bilirubin AST ALT Alkaline Phosphatase Total Protein Albumin Globulin Albumin/Globulin Ratio HIV Genotype Misc Test Result ABG Interpretation ABG results: 05/27/24 05/29/24 05/29/24 23:37 10:44 22:08 ABG pH 7.51 H 7.50 H 7.48 H ABG pCO2 28 L 32 32 ABG pO2 75 L 79 L 145 H D ABG HCO3 23 25 24 ABG O2 Saturation 96 95 98 ABG Base Excess 0 2 1 VBG pH VBG pCO2 VBG pO2 VBG Base Excess 05/30/24 05/31/24 06/04/24 08:45 04:54 02:10 ABG pH 7.47 H 7.45 7.45 ABG pCO2 35 38 36 ABG pO2 86 D 82 L 139 H ABG HCO3 26 26 25 ABG O2 Saturation 97 96 98 ABG Base Excess 2 2 1 VBG pH VBG pCO2 VBG pO2 VBG Base Excess 06/04/24 06/05/24 06/05/24 18:16 11:36 12:59 ABG pH 7.44 7.11 L* D 7.20 L ABG pCO2 36 94 H* D 68 H D ABG pO2 80 L D 150 H D 121 H D ABG HCO3 24 30 H 26 ABG O2 Saturation 94 97 97 ABG Base Excess 0 -2 -3 VBG pH VBG pCO2 VBG pO2 VBG Base Excess 06/05/24 06/06/24 06/06/24 19:25 04:13 15:27 ABG pH 7.22 L 7.27 L 7.30 L ABG pCO2 64 H 57 H 60 H ABG pO2 122 H 153 H D 74 L D ABG HCO3 26 26 29 H ABG O2 Saturation 97 99 H 92 ABG Base Excess -3 -2 2 VBG pH VBG pCO2 VBG pO2 VBG Base Excess 06/07/24 06/07/24 06/08/24 03:55 09:59 04:20 ABG pH 7.41 D 7.43 7.45 ABG pCO2 56 H 55 H 50 H ABG pO2 293 H D 78 L D 75 L ABG HCO3 36 H 37 H 35 H ABG O2 Saturation 99 H 95 94 ABG Base Excess 10 H 11 H 10 H VBG pH VBG pCO2 VBG pO2 VBG Base Excess 06/08/24 06/08/24 06/08/24 11:05 11:50 13:18 ABG pH 7.17 L* D 7.10 L* 7.15 L* ABG pCO2 95 H* D 115 H* D 88 H* D ABG pO2 89 75 L 72 L ABG HCO3 34 H 36 H 31 H ABG O2 Saturation 92 84 L 85 L ABG Base Excess 3 4 H 0 VBG pH VBG pCO2 VBG pO2 VBG Base Excess 06/08/24 06/09/24 06/09/24 17:02 01:33 03:15 ABG pH 7.18 L* 7.22 L 7.27 L ABG pCO2 50 H D 91 H* D 82 H* ABG pO2 82 L 105 D 86 ABG HCO3 19 L 37 H 38 H ABG O2 Saturation 93 97 95 ABG Base Excess -9 L 7 H 9 H VBG pH VBG pCO2 VBG pO2 VBG Base Excess 06/09/24 06/09/24 06/10/24 05:08 12:52 04:40 ABG pH 7.31 L 7.33 L 7.30 L ABG pCO2 75 H* 57 H D 78 H* D ABG pO2 97 158 H D 65 L D ABG HCO3 38 H 30 H 38 H ABG O2 Saturation 97 99 H 90 L ABG Base Excess 10 H 3 9 H VBG pH VBG pCO2 VBG pO2 VBG Base Excess 06/10/24 06/11/24 06/12/24 09:40 04:19 04:15 ABG pH 7.27 L 7.35 7.48 H D ABG pCO2 88 H* D 86 H* 63 H D ABG pO2 65 L 70 L 76 L ABG HCO3 40 H 48 H 47 H ABG O2 Saturation 89 L 93 95 ABG Base Excess 10 H 19 H 21 H VBG pH VBG pCO2 VBG pO2 VBG Base Excess 06/13/24 06/14/24 06/15/24 07:22 04:32 03:45 ABG pH 7.46 H 7.48 H 7.46 H ABG pCO2 56 H 40 D 37 ABG pO2 80 L 64 L 71 L ABG HCO3 39 H 30 H 27 H ABG O2 Saturation 95 92 94 ABG Base Excess 13 H 6 H 3 VBG pH VBG pCO2 VBG pO2 VBG Base Excess 06/15/24 06/15/24 06/15/24 10:17 12:20 14:20 ABG pH 7.01 L* D 7.00 L* 7.03 L* ABG pCO2 122 H* D 130 H* 125 H* ABG pO2 91 D 88 82 L ABG HCO3 31 H 32 H 33 H ABG O2 Saturation 88 L 88 L 87 L ABG Base Excess -3 -2 -1 VBG pH VBG pCO2 VBG pO2 VBG Base Excess 06/15/24 06/15/24 06/16/24 15:55 20:39 00:35 ABG pH 7.03 L* 7.08 L* 7.10 L* ABG pCO2 121 H* 116 H* 118 H* ABG pO2 99 117 H 102 ABG HCO3 32 H 34 H 37 H ABG O2 Saturation 93 97 96 ABG Base Excess -1 2 4 H VBG pH VBG pCO2 VBG pO2 VBG Base Excess 06/16/24 06/16/24 06/17/24 04:45 08:55 05:06 ABG pH 7.17 L* 7.28 L D 7.33 L ABG pCO2 112 H* 88 H* D 96 H* ABG pO2 155 H D 98 D 126 H D ABG HCO3 41 H 41 H 50 H ABG O2 Saturation 99 H 98 99 H ABG Base Excess 9 H 12 H 21 H VBG pH VBG pCO2 VBG pO2 VBG Base Excess 06/17/24 06/17/24 06/18/24 10:58 13:55 04:16 ABG pH 7.29 L 7.29 L 7.33 L ABG pCO2 106 H* D 106 H* 86 H* D ABG pO2 58 L* D 61 L 77 L ABG HCO3 51 H 51 H 45 H ABG O2 Saturation 87 L 88 L 95 ABG Base Excess 21 H 21 H 17 H VBG pH VBG pCO2 VBG pO2 VBG Base Excess 06/19/24 06/20/24 06/21/24 04:18 04:49 04:06 ABG pH 7.42 7.36 7.44 ABG pCO2 63 H D 74 H* D 61 H D ABG pO2 66 L 55 L* 202 H D ABG HCO3 41 H 42 H 42 H ABG O2 Saturation 93 87 L 100 H ABG Base Excess 15 H 14 H 16 H VBG pH VBG pCO2 VBG pO2 VBG Base Excess 06/22/24 06/23/24 06/24/24 04:18 04:29 04:25 ABG pH 7.45 7.46 H 7.29 L D ABG pCO2 57 H 53 H 80 H* D ABG pO2 60 L D 99 D 88 ABG HCO3 40 H 38 H 38 H ABG O2 Saturation 91 99 H 96 ABG Base Excess 14 H 13 H 9 H VBG pH VBG pCO2 VBG pO2 VBG Base Excess 06/24/24 06/25/24 06/25/24 08:50 05:13 11:02 ABG pH 7.40 D 7.46 H Cancelled ABG pCO2 61 H D 53 H Cancelled ABG pO2 110 H D 66 L D Cancelled ABG HCO3 38 H 38 H Cancelled ABG O2 Saturation 99 H 94 Cancelled ABG Base Excess 12 H 13 H Cancelled VBG pH VBG pCO2 VBG pO2 VBG Base Excess 06/25/24 06/26/24 06/26/24 15:53 04:13 11:40 ABG pH 7.39 7.41 7.46 H ABG pCO2 53 H 48 43 ABG pO2 55 L* 58 L* 58 L* ABG HCO3 32 H 30 H 31 H ABG O2 Saturation 86 L 89 L 92 ABG Base Excess 6 H 5 H 6 H VBG pH VBG pCO2 VBG pO2 VBG Base Excess 06/27/24 06/28/24 06/28/24 04:17 04:24 06:22 ABG pH 7.48 H 7.27 L D 7.22 L ABG pCO2 39 72 H* D 83 H* D ABG pO2 49 L* 71 L D 82 L ABG HCO3 29 H 33 H 34 H ABG O2 Saturation 87 L 93 95 ABG Base Excess 5 H 5 H 4 H VBG pH VBG pCO2 VBG pO2 VBG Base Excess 06/28/24 06/29/24 06/30/24 10:18 04:21 07:57 ABG pH 7.32 L D 7.41 7.41 ABG pCO2 64 H D 63 H 62 H ABG pO2 76 L 81 L 59 L* D ABG HCO3 33 H 40 H 40 H ABG O2 Saturation 95 97 88 L ABG Base Excess 6 H 14 H 13 H VBG pH VBG pCO2 VBG pO2 VBG Base Excess 07/02/24 07/03/24 07/04/24 04:05 04:45 04:11 ABG pH 7.46 H 7.43 7.38 ABG pCO2 53 H 58 H 67 H ABG pO2 77 L 100 D 73 L D ABG HCO3 38 H 39 H 40 H ABG O2 Saturation 96 98 94 ABG Base Excess 12 H 13 H 13 H VBG pH VBG pCO2 VBG pO2 VBG Base Excess 07/05/24 07/06/24 07/09/24 04:40 04:08 04:53 ABG pH 7.30 L 7.42 D 7.26 L ABG pCO2 87 H* D 67 H D 94 H* ABG pO2 132 H D 64 L D 149 H ABG HCO3 43 H 43 H 42 H ABG O2 Saturation 99 H 92 100 H ABG Base Excess 14 H 17 H 12 H VBG pH VBG pCO2 VBG pO2 VBG Base Excess 07/11/24 07/12/24 07/14/24 11:34 04:49 04:45 ABG pH 7.25 L 7.36 D ABG pCO2 106 H* D 94 H* D ABG pO2 67 L D 59 L* ABG HCO3 46 H 53 H ABG O2 Saturation 91 90 L ABG Base Excess 16 H 24 H VBG pH 7.38 VBG pCO2 74 H VBG pO2 148 H VBG Base Excess 16 H 07/14/24 09:21 ABG pH 7.42 ABG pCO2 83 H* D ABG pO2 61 L ABG HCO3 54 H ABG O2 Saturation 92 ABG Base Excess 27 H VBG pH VBG pCO2 VBG pO2 VBG Base Excess Quality Measures Quality Measures sepsis Current suspected stage: ruled out Possible source: pulmonary, GI tract/intra-abdominal, genitourinary and skin/soft tissue Blood cultures ordered: yes Antibiotic ordered: No Assessment & Plan Assessment Current Active Medications: Generic Name Dose Route Start Last Admin Trade Name Freq PRN Reason Stop Dose Admin Acetaminophen 650 mg 06/26/24 15:16 07/12/24 16:43 Acetaminophen Munira 325 Mg/10 Ml Udc GT 07/26/24 15:15 650 mg Q4HR PRN Administration Pain Or Fever > 100.3 Artificial Tears 1 drop 06/18/24 12:00 07/14/24 12:17 Artificial Tears 225 Drop/15 Ml Btl BOTH EYES 07/18/24 11:59 1 drop QID JUAN JOSE Administration Aspirin 81 mg 07/11/24 09:30 07/14/24 08:26 Aspirin 81 Mg Chew PO 08/08/24 10:59 81 mg QDAY JUAN JOSE Administration Atorvastatin Calcium 80 mg 07/10/24 21:00 07/13/24 20:41 Atorvastatin Calcium 20 Mg Tablet PO 08/09/24 20:59 80 mg HS JUAN JOSE Administration Calcium Carbonate 600 mg 06/28/24 13:00 07/13/24 12:57 Calcium Carbonate 600 Mg Tablet GT 07/28/24 12:59 600 mg QDAY@1300 JUAN JOSE Administration Clonazepam 0.5 mg 07/14/24 21:00 Clonazepam 0.5 Mg Tablet PO 07/19/24 20:59 BID JUAN JOSE Docusate Sodium 100 mg 06/25/24 09:13 Docusate Sod Liqd 100 Mg/10 Ml Udc PO 07/22/24 08:59 BID PRN Constipation Protocol Emtricitabine/Tenofovir 1 tab 07/06/24 11:30 07/14/24 08:28 Emtricitabine 200 Mg/Tenofovir 300 Mg Tab (Non-Form) PO 08/19/24 14:33 1 tab QDAY JUAN JOSE Administration Enoxaparin Sodium 80 mg 07/11/24 21:00 07/14/24 08:26 Enoxaparin Sod Inj 80 Mg/0.8 Ml Syringe SC 07/25/24 20:59 80 mg BID JUAN JOSE Administration Ferrous Sulfate 300 mg 07/02/24 10:00 07/14/24 08:25 Ferrous Sulfate 300 Mg/5 Ml Udc GT 07/23/24 09:59 300 mg QDAY JUAN JOSE Administration Gabapentin 400 mg 07/13/24 21:00 07/14/24 08:29 Gabapentin 100 Mg Capsule GT 08/12/24 20:59 400 mg BID JUAN JOSE Administration Norepinephrine/Dextrose 8 mg in 250 mls @ 6.319 mls/hr 06/30/24 04:17 07/09/24 11:30 Levophed In D5w 8mg/250ml IV 07/30/24 04:16 0 mcg/kg/min .Q24H PRN 0 mls/hr PER PROTOCOL Titration Protocol 0.05 MCG/KG/MIN Dexmedetomidine/Sodium Chloride 200 mcg in 50 mls @ 4.01 mls/hr 07/13/24 04:40 07/13/24 11:42 Precedex Ivpb IV 08/12/24 04:29 0 mcg/kg/hr .[id number] PRN 0 mls/hr Per PROTOCOL Titration Protocol 0.2 MCG/KG/HR Propofol 1,000 mg in 100 mls @ 2.406 mls/hr 07/13/24 05:05 Diprivan Ivpb IV 08/03/24 06:38 .Q24H PRN PER PROTOCOL Protocol 5 MCG/KG/MIN Methadone HCl 20 mg 07/12/24 22:00 07/14/24 05:49 Methadone Hcl 10 Mg Tablet GT 07/17/24 21:59 20 mg Q8HR JUAN JOSE Administration Methylprednisolone 20 mg 07/14/24 09:00 07/14/24 09:19 Methylprednisolone 4 Mg Tablet PO 08/13/24 08:59 20 mg QDAY JUAN JOSE Administration Pantoprazole Sodium 40 mg 07/07/24 09:32 07/14/24 08:26 Pantoprazole Inj 40 Mg Vial IV 08/06/24 09:31 40 mg QDAY JUAN JOSE Administration Phenobarbital 60 mg 07/14/24 21:00 Phenobarbital Elix 20 Mg/5 Ml Udc GT 07/28/24 20:59 BID JUAN JOSE Protocol Raltegravir 400 mg 07/06/24 11:30 07/14/24 08:27 Raltegravir 400 Mg Tablet NG 08/19/24 14:33 400 mg BID JUAN JOSE Administration Trimethoprim/Sulfamethoxazole 20 ml 06/23/24 09:00 07/14/24 08:36 Trimethoprim/Sulfa Susp 1 Ml PO 06/22/25 12:00 20 ml QDAY JUAN JOSE Administration Plan 39-year-old male patient with no PMHx who initially presented to [facility] on 05/27/2024 with a chief complaint of shortness of breath and cough, with associated chills, body aches, generalized weakness, fever, and night sweats beginning weeks prior but progressively worsening over a few days is currently being treated for acute hypoxic respiratory failure secondary to PCP pneumonia that was complicated by ventilator associated pneumonia. Patient is currently on tracheostomy tube and mechanically ventilated. 07/14/24: The patient was evaluated and examined at the bedside this morning. Patient did not had any overnight events. We have discontinued all IV sedatives, and we decreased the frequency of doses of phenobarbital 60 Mg twice daily, clonazepam 0.5 Mg twice daily, and will continue gabapentin 400 Mg twice daily along with methadone 20 Mg 3 times daily. Lung compliance seems to be improving. His white count was 15.1, ABG done revealed pCO2 83, bicarb 54 with phosphorus 2.3. Phosphorus and magnesium was repleted. Liver enzymes trending down. We ordered EEG to evaluate for any further anoxic brain injury. We will try to get SAT in a couple of days. NEURO Patient is sedated and mechanically ventilated through tracheostomy tube. 06/05/2024 Patient was intubated, sedated, and paralyzed for ARDS. -We decreased the frequency of doses of phenobarbital 60 Mg twice daily, clonazepam 0.5 Mg twice daily, and will continue gabapentin 400 Mg twice daily along with methadone 20 Mg 3 times daily #Rt Parietal ischemic Stroke MRI on 07/08 Large area of restricted diffusion in the left frontal parietal white matter and small foci in the right parietal white matter most consistent with acute infarction -Started on aspirin 81mg daily and atorvastatin 80mg daily at night. #Fever, resolved #Withdrawal syndrome, stable Multiple cultures has been negative -Repeat influenza and COVID test on 07/04 negative -Repeat blood, urine and sputum culture are negative -Treat underlying condition -Tylenol as needed CARDIO #Right subclavian and axillary vein DVT. -Doppler US right upper extremity 06/17/24: revealed RUE DVT -On Heparin Drip 06/17-07/09, On Enoxaparin 75mg BID 07/11- #Sinus tachycardia Tachycardia most likely secondary to acute respiratory distress syndrome contributed by withdrawal while tapering the dose of IV sedatives -Continue to treat underlying cause #Shock, resolved Most likely 2/2 sedation. BC has been negative and on appropriate antibiotics Patient presented with septic shock secondary to severe extensive bilateral pneumonia. After resolution of initial septic shock, patient developed new hypotension, tachycardia, tachypnea, fevers indicated of septic shock. -Pressor support as needed -Linezolid (started 06/27-07/04) -Meropenem (started 06/27-07/04) -Urine (06/27) showed resistant staph epi -Blood (06/27) showed resistant Staphylococcus haemolyticus -follow up repeat blood cultures and urine cultures -taper down sedatives as tolerated PULM #Chronic hypoxic respiratory failure 2/2 # Acute respiratory distress syndrome in the setting of post PCP pneumonia state Secondary to #Bilateral pneumocystis jirovecii pneumonia, resolved #Healthcare associated pneumonia, resolved, resolved #Ventilator associated pneumonia, resolved #S/P Tracheostomy #Pneumomediastinum, resolved -ABG done on 07/14/24 showed improvement. On vent support -Titrate down FiO2 as tolerated GI GI prophylaxis: IV pantoprazole 40 Mg daily #Elevated LFTs 2/2 HIV DDx: adverse affect of drugs, we had discontinued oxycodone previously, and phenobarbitol Liver enzymes started trending down after discontinuing oxycodone and phenobarbitol. liver US 05/30/2024 showed normal gallbladder and hepatomegaly without lesions or evidence of obstructions. Hep panel negative. LFTs downtrending Plan: -Continue monitoring #Hypertriglyceridemia, down trending secondary to propofol use, -Discontinued propofol NEPHRO #Central diabetes insipidus, resolved #Hypophosphatemia, repleted #WILL, resolved #Hyperkalemia On 07/12/24 K 5.8, Received 30g kayexalate #Mild hyponatremia Secondary to SIADH due to acute hypoxic respiratory failure leading to pulmonary distress -Continue to monitor #Hyperphosphetemia, stable -on sevelamir 800mg TID and calcium carbonate 600mg daily #NAGMA #Primary Respiratory acidosis partially compensated by metabolic alkalosis Secondary to increased work of breathing and increased RR 2/2 chronic hypoxic respiratory failure and chronic respiratory distress syndrome in the setting of tapering down of IV sedatives -ABGs 07/12 pH of 7.25, pCO2 106, bicarb 46 -We will treat the underlying cause respiratory acidosis HEME #Leukocytosis Likely reactive as we are tapering down sedatives and is still on steroid #Microcytic anemia 2/2 STEPHY and Inflammatory anemia Stable, has not required any transfusions this admission thus far. Clinically no evidence of bleeding. Iron panel shows iron 17, TIBC 262, iron saturation 6, unsaturated iron binding 245. Peripheral blood film confirms microcytic hypochromic anemia with target cells. Also daily lab draws contributing. Plan: -Started on oral ferrous sulfate 300 Mg daily -Monitor H&H. Transfusing for Hgb <7 #Thrombocytosis, resolved Likely reactive in the setting of withdrawal syndrome -Continue to monitor ENDO #Hypoglycemia, resolved ID #Bilateral pneumocystis pneumonia, resolved #Healthcare associated pneumonia, resolved #Ventilator associated pneumonia, resolved #PCP pneumonia prophylaxis Negative studies: Cocci IgM and IgG, Hepatitis panel, Syphilis, Legionella, H.flu, N.meningitidis, Strep B, Strep pneumoniae, COVID, RSV, Flu A & B. TB quantiferon GOLD-indeterminate, however 06/05 AFB negative, CMV IgM, cryptococcal antigen negative. G6PD levels came back normal for consideration of dapsone alternative to Bactrim if needed. Patient completed 5 day course of azithromycin, 16 days of Zosyn. See Pulm for timeline of antimicrobial coverage. On 06/27 patient developed new septic shock Plan: -Antibiotcs Bactrim for prevention of PCP pneumonia in the setting of CD4 count of 116 -Linezolid and meropenum restarted on 06/27/2024-07/04/24 -Urine ackerman port grew GPC, Staph epidermidis that is MDR, sensitive to linezolid. -Fungal cultures from BAL pending, follow-up on results -Blood cultures from 06/26/2024 and 06/27/2024, negative so far, cultures drawn on 06/29/2024 is pending -Follow up blood, sputum, and urine cultures were negative -Repeat blood, urine, sputum cultures were ordered on 07/07/2024- negative #AIDS/HIV Patient has Stage 4 HIV, AIDS-defining illness with opportunistic infection. 06/07/2024 Bronchoalveolar lavage cytology shows Pneumocystis jirovecii. Also other fungi, possibly Kassandra. Kassandra is most likely a contaminant. Blood [id number] also positive. 06/08/2024 HIV quant 5.66 million copies. HIV 1 positive confirmed. 06/09/2024 Patient's decision maker, Francesca, was informed of diagnosis due to critical state of patient. Absolute CD4 count 87 and 22% on 06/02. History/risk factors: History of injection anabolic androgenic steroid and testosterone use, possible unclean needles. History of incarceration (unknown time). Tattoos received as a teenager. Has 1 female sexual partner last 5 years, denies others. -Continue HAART: emtricitabine / tenofovir (Truvada) and raltegravir initiated 06/09/24 -Patient is not aware of his diagnosis as he has been intubated and sedated before results returned. Will require complete education and counseling on the disease if his mental status and clinical condition improves. #IRIS The patient has been on HAART for around 4 weeks and given the presentation of ARDS, with negative BC, positive for fever, and on appropriate antibiotics, still having respiratory distress with breathy stacking there is a high possibility of IRIS -Continue on methylprednisone 40mg IV BID until 07/08/2024, Daily from 07/09- 07/13 -On oral methylpred 20mg daily 07/14- MSK #Elevated creatine kinase -Down trended SKIN #Lower lip abrasion #Right forearm blisters -Improving -Monitor closely Dispo: Patient was admitted to ICU unit for the management of acute hypoxic respiratory failure 2/2 PCP pneumonia in the 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 DVT prophylaxis: On enoxaparin 75mg BID for treatment of right upper extremity DVT GI prophylaxis: Pantoprazole 40 mg IV qday Diet: Tube feeds Ackerman: No, condom cath Lines: Peripheral IV, removed rt femoral central line on 06/28/24 Antibiotics: Bactrim CODE STATUS: DNR/DNI The patient's management plan was discussed with my attending physician MD Jeff Hamilton MD, PGY2 Attending Provider Attestation/Addendum Patient seen and examined with above resident, Jeff Pacheco MD. I agree with the findings, assessment, and plan of care as document except for any differences below. Continue to aim to further clear total dose of narcotics and sedatives ongoing. Goal will be to achieve reduce status to exclude presence of withdrawal and allow further ventilator weaning in the coming days. In the interim, as discontinuation and adequate clearance of IV sedation is completed, will need to ascertain presence of nonconvulsive status as alternate etiology given presence of anoxic/ischemic injury on CT imaging a few days ago. Patient otherwise remained stable on current ventilator settings. Remains off of antibiotics without evidence of ongoing infection apart from his underlying HIV for which she is on Ortega therapy. Given reduced CD4 count and presence of PJP pneumonia on arrival, will continue on appropriate prophylaxis dosing. Patient was negative for cryptococcal antigen on this hospitalization. Patient's family continues to visit on a daily basis and been updated on ongoing plan of care including imaging to further weaning to clarify neurologic outcome so that they may make adequate decisions to prepare for potential comfort care or pursue ongoing prolonged recovery at LTAC. Total critical care time: I personally spent 35 minutes for review of physiologic parameters, directing plan of care throughout the day, and counseling patient's family at bedside. This is exclusive of time spent teaching housestaff or performing any separate billable procedures. Patient continues to require critical care services for acute hypoxic respiratory failure secondary to ARDS from PJP pneumonia with superimposed recurrent ventilator associated pneumonia. Rajesh continues to be at significant risk for further morbidity and mortality warranting ongoing medical care and management only available in the intensive care unit.
[2024-07-14] MEDS: CALCIUM CARBONATE 600 MG TABLET GT (14:18)
--- NOTE | 2024-07-14 17:03 | RESP.EEG ---
No EEG done at this time due to high census and low staffing.
[2024-07-14] MEDS: ATORVASTATIN CALCIUM 20 MG TABLET 80 MG PO (20:40)
[2024-07-15] VITALS (66 sets, daily range): BP systolic 96–147; BP diastolic 54–91; PULSE 103–125; RESP 21–34; TEMP 36.4–38.7; O2SAT 87–96; BMI 25.2
[2024-07-15] MEDS: ACETAMINOPHEN SOL 325 MG/10 ML UDC 650 MG GT (00:37)
[2024-07-15] MEDS: METHADONE HCL 10 MG TABLET 20 MG GT ×2 (05:14→13:41)
[2024-07-15] MEDS: Artificial Tears 225 DROP/15 ML BTL BOTH EYES ×4 (05:18→22:00)
[2024-07-15 06:49] LABS: Chloride 90 mMol/L (98-107); Sodium 138 mMol/L (136-145)
[2024-07-15 06:50] LABS: Alanine Aminotransferase 139 U/L (10-49); Albumin, Serum 3.1 gm/dL (3.5-5.0); Albumin/Globulin Ratio 1.1 (1.2-2.2); Alkaline Phosphatase 355 U/L (46-116); Anion Gap 8 (7-16); Aspartate Amino Transferase 146 U/L (0-34); BUN/Creatinine Ratio 41 Ratio (12-20); Bilirubin,Total 0.2 mg/dL (0.3-1.2); Blood Urea Nitrogen 29 mg/dL (9-23); Calcium 8.5 mg/dL (8.3-10.6); Calcium (Corrected) 9.2 mg/dL (8.5-10.1); Carbon Dioxide > 40.0 mMol/L (20.0-31.0); Creatinine (Component) 0.7 mg/dL (0.6-1.3); Estimated Creatinine Clearance 129.1 mL/min (>60); Globulin 2.9 gm/dL (2.3-3.5); Glucose 100 mg/dL (74-106); Magnesium 2.2 mg/dL (1.6-2.6); Osmolality,Calculated 281 (275-295); Phosphorous 4.1 mg/dL (2.4-5.1); eGFR > 60 See Note
[2024-07-15 07:24] LABS: Basophils # (Auto) 0.1 Thou/mm3 (0.0-0.2); Basophils % (Auto) 1 % (0-2.5); Eosinophils # (Auto) 0.1 Thou/mm3 (0.0-0.5); Eosinophils % (Auto) 1 % (0-10); Hematocrit 24.8 % (41.0-53.0); Immature Granulocytes % (Auto) 1 % (0-0); Immature Granulocytes Auto 0.14 Thou/mm3 (0.00-0.00); Lymphocytes # (Auto) 0.7 Thou/mm3 (1.0-4.8); Lymphocytes % (Auto) 6 % (10-50); Mean Corpuscular HGB Conc 27.8 g/dl (31.0-37.0); Mean Corpuscular Hemoglobin 25.5 pg (25.0-35.0); Mean Corpuscular Volume 92 fL (80-100); Monocytes # (Auto) 1.1 Thou/mm3 (0.0-0.8); Monocytes % (Auto) 10 % (0-12); Neutrophils # (Auto) 9.4 Thou/mm3 (1.8-7.7); Neutrophils % (Auto) 81 % (37-80); Nucleated Red Blood Cell # 0.04 Thou/mm3 (0.00-0.00); Nucleated Red Blood Cell % 0 /100 WBC (0); Platelet Count 254 Thou/mm3 (140-440); RDW Standard Deviation 78.3 fL (35.1-43.9); Red Blood Count 2.71 Miln/mm3 (4.50-5.90); White Blood Count 11.6 Thou/mm3 (3.8-10.6)
[2024-07-15 07:32] LABS: Hemoglobin 6.9 g/dL (13.5-16.0)
[2024-07-15] MEDS: Ferrous Sulfate 300 MG/5 ML UDC GT (08:14)
[2024-07-15] MEDS: PHENOBARBITAL ELIX 20 MG/5 ML 30 MG GT (08:14)
[2024-07-15] MEDS: ENOXAPARIN SOD INJ 80 MG/0.8 ML SYRINGE SC ×2 (08:18→22:00)
[2024-07-15] MEDS: RALTEGRAVIR 400 MG TABLET NG ×2 (08:18→22:00)
[2024-07-15] MEDS: ASPIRIN 81 MG CHEW PO (08:18)
[2024-07-15] MEDS: methylPREDNISolone 4 MG TABLET 20 MG PO (08:18)
[2024-07-15] MEDS: clonazePAM 0.5 MG TABLET 0.25 MG PO ×2 (08:18→22:00)
[2024-07-15] MEDS: PANTOPRAZOLE INJ 40 MG VIAL IV (08:19)
[2024-07-15] MEDS: GABAPENTIN 100 MG CAPSULE 400 MG GT ×2 (08:19→22:00)
[2024-07-15] MEDS: EMTRICITABINE 200 MG/TENOFOVIR 300 MG TAB (NON-FORM) 1 TAB PO (08:25)
[2024-07-15] MEDS: TRIMETHOPRIM PO (08:36)
[2024-07-15] MEDS: SULFAMETHOXAZOLE PO (08:36)
--- NOTE | 2024-07-15 09:26 | RESP.EEG ---
EEG COMPLETED AT THIS TIME. DR David UNAVAIABLE AND DR PEDRO MADE AWARE OF TELENEURO CONSULT NEEDED TO BE READ
[2024-07-15 10:31] LABS: Base Excess, Venous 21 (-3-3); O2 Saturation, Venous 75 % (96-97); PCO2, Venous 79 mmHg (36-56); PO2, Venous 40 mmHg (15-58); pH, Venous 7.39 (7.33-7.66)
--- NOTE | 2024-07-15 11:39 | PD.IDPROG ---
Subjective Subjective Interval history: stable on vent. hiv vl and reggie pending Exam Vital Signs Temp Pulse Resp BP Pulse Ox O2 Del Method O2 Flow Rate 97.9 F 109 H 24 H 115/75 95 Mechanical Ventilation 40 07/15/24 03:00 07/15/24 10:14 07/13/24 12:00 07/15/24 10:14 07/15/24 10:14 07/15/24 03:00 06/09/24 12:16 FiO2 70 07/15/24 10:14 Narrative Exam on vent. paralyzed and sedated. settings per icu team. Objective - Internal Medicine Labs 07/15/24 05:10 07/15/24 05:10 Labs: Laboratory Results - last 24 hr 07/15/24 07/15/24 07/15/24 05:10 08:33 10:24 WBC 11.6 H RBC 2.71 L Hgb 6.9 L* Hct 24.8 L MCV 92 MCH 25.5 MCHC 27.8 L RDW Std Deviation 78.3 H Plt Count 254 Neut % (Auto) 81 H Lymph % (Auto) 6 L [place] % (Auto) 10 Eos % (Auto) 1 Baso % (Auto) 1 Neut # (Auto) 9.4 H Lymph # (Auto) 0.7 L [place] # (Auto) 1.1 H Eos # (Auto) 0.1 Baso # (Auto) 0.1 Immature Gran # (Auto) 0.14 H Absolute Nucleated RBC 0.04 H Immature Gran % 1 H Nucleated RBC % 0 VBG pH 7.39 VBG pCO2 79 H VBG pO2 40 VBG O2 Sat (Georges) 75 L VBG Base Excess 21 H Sodium 138 Potassium 4.0 Chloride 90 L Carbon Dioxide > 40.0 H Anion Gap 8 BUN 29 H Creatinine 0.7 Estim Creat Clear Calc 129.1 eGFR > 60 BUN/Creatinine Ratio 41 H Glucose 100 Calculated Osmolality 281 Calcium 8.5 Corrected Calcium 9.2 Phosphorus 4.1 Magnesium 2.2 Total Bilirubin 0.2 L AST 146 H ALT 139 H Alkaline Phosphatase 355 H D Total Protein 6.0 Albumin 3.1 L Globulin 2.9 Albumin/Globulin Ratio 1.1 L Blood Type O Positive Antibody Screen NEGATIVE Crossmatch See Detail Blood Bank Wristband ID Yes ABG Interpretation ABG results: 05/27/24 05/29/24 05/29/24 23:37 10:44 22:08 ABG pH 7.51 H 7.50 H 7.48 H ABG pCO2 28 L 32 32 ABG pO2 75 L 79 L 145 H D ABG HCO3 23 25 24 ABG O2 Saturation 96 95 98 ABG Base Excess 0 2 1 VBG pH VBG pCO2 VBG pO2 VBG Base Excess 05/30/24 05/31/24 06/04/24 08:45 04:54 02:10 ABG pH 7.47 H 7.45 7.45 ABG pCO2 35 38 36 ABG pO2 86 D 82 L 139 H ABG HCO3 26 26 25 ABG O2 Saturation 97 96 98 ABG Base Excess 2 2 1 VBG pH VBG pCO2 VBG pO2 VBG Base Excess 06/04/24 06/05/24 06/05/24 18:16 11:36 12:59 ABG pH 7.44 7.11 L* D 7.20 L ABG pCO2 36 94 H* D 68 H D ABG pO2 80 L D 150 H D 121 H D ABG HCO3 24 30 H 26 ABG O2 Saturation 94 97 97 ABG Base Excess 0 -2 -3 VBG pH VBG pCO2 VBG pO2 VBG Base Excess 06/05/24 06/06/24 06/06/24 19:25 04:13 15:27 ABG pH 7.22 L 7.27 L 7.30 L ABG pCO2 64 H 57 H 60 H ABG pO2 122 H 153 H D 74 L D ABG HCO3 26 26 29 H ABG O2 Saturation 97 99 H 92 ABG Base Excess -3 -2 2 VBG pH VBG pCO2 VBG pO2 VBG Base Excess 06/07/24 06/07/24 06/08/24 03:55 09:59 04:20 ABG pH 7.41 D 7.43 7.45 ABG pCO2 56 H 55 H 50 H ABG pO2 293 H D 78 L D 75 L ABG HCO3 36 H 37 H 35 H ABG O2 Saturation 99 H 95 94 ABG Base Excess 10 H 11 H 10 H VBG pH VBG pCO2 VBG pO2 VBG Base Excess 06/08/24 06/08/24 06/08/24 11:05 11:50 13:18 ABG pH 7.17 L* D 7.10 L* 7.15 L* ABG pCO2 95 H* D 115 H* D 88 H* D ABG pO2 89 75 L 72 L ABG HCO3 34 H 36 H 31 H ABG O2 Saturation 92 84 L 85 L ABG Base Excess 3 4 H 0 VBG pH VBG pCO2 VBG pO2 VBG Base Excess 06/08/24 06/09/24 06/09/24 17:02 01:33 03:15 ABG pH 7.18 L* 7.22 L 7.27 L ABG pCO2 50 H D 91 H* D 82 H* ABG pO2 82 L 105 D 86 ABG HCO3 19 L 37 H 38 H ABG O2 Saturation 93 97 95 ABG Base Excess -9 L 7 H 9 H VBG pH VBG pCO2 VBG pO2 VBG Base Excess 06/09/24 06/09/24 06/10/24 05:08 12:52 04:40 ABG pH 7.31 L 7.33 L 7.30 L ABG pCO2 75 H* 57 H D 78 H* D ABG pO2 97 158 H D 65 L D ABG HCO3 38 H 30 H 38 H ABG O2 Saturation 97 99 H 90 L ABG Base Excess 10 H 3 9 H VBG pH VBG pCO2 VBG pO2 VBG Base Excess 06/10/24 06/11/24 06/12/24 09:40 04:19 04:15 ABG pH 7.27 L 7.35 7.48 H D ABG pCO2 88 H* D 86 H* 63 H D ABG pO2 65 L 70 L 76 L ABG HCO3 40 H 48 H 47 H ABG O2 Saturation 89 L 93 95 ABG Base Excess 10 H 19 H 21 H VBG pH VBG pCO2 VBG pO2 VBG Base Excess 06/13/24 06/14/24 06/15/24 07:22 04:32 03:45 ABG pH 7.46 H 7.48 H 7.46 H ABG pCO2 56 H 40 D 37 ABG pO2 80 L 64 L 71 L ABG HCO3 39 H 30 H 27 H ABG O2 Saturation 95 92 94 ABG Base Excess 13 H 6 H 3 VBG pH VBG pCO2 VBG pO2 VBG Base Excess 06/15/24 06/15/24 06/15/24 10:17 12:20 14:20 ABG pH 7.01 L* D 7.00 L* 7.03 L* ABG pCO2 122 H* D 130 H* 125 H* ABG pO2 91 D 88 82 L ABG HCO3 31 H 32 H 33 H ABG O2 Saturation 88 L 88 L 87 L ABG Base Excess -3 -2 -1 VBG pH VBG pCO2 VBG pO2 VBG Base Excess 06/15/24 06/15/24 06/16/24 15:55 20:39 00:35 ABG pH 7.03 L* 7.08 L* 7.10 L* ABG pCO2 121 H* 116 H* 118 H* ABG pO2 99 117 H 102 ABG HCO3 32 H 34 H 37 H ABG O2 Saturation 93 97 96 ABG Base Excess -1 2 4 H VBG pH VBG pCO2 VBG pO2 VBG Base Excess 06/16/24 06/16/24 06/17/24 04:45 08:55 05:06 ABG pH 7.17 L* 7.28 L D 7.33 L ABG pCO2 112 H* 88 H* D 96 H* ABG pO2 155 H D 98 D 126 H D ABG HCO3 41 H 41 H 50 H ABG O2 Saturation 99 H 98 99 H ABG Base Excess 9 H 12 H 21 H VBG pH VBG pCO2 VBG pO2 VBG Base Excess 06/17/24 06/17/24 06/18/24 10:58 13:55 04:16 ABG pH 7.29 L 7.29 L 7.33 L ABG pCO2 106 H* D 106 H* 86 H* D ABG pO2 58 L* D 61 L 77 L ABG HCO3 51 H 51 H 45 H ABG O2 Saturation 87 L 88 L 95 ABG Base Excess 21 H 21 H 17 H VBG pH VBG pCO2 VBG pO2 VBG Base Excess 06/19/24 06/20/24 06/21/24 04:18 04:49 04:06 ABG pH 7.42 7.36 7.44 ABG pCO2 63 H D 74 H* D 61 H D ABG pO2 66 L 55 L* 202 H D ABG HCO3 41 H 42 H 42 H ABG O2 Saturation 93 87 L 100 H ABG Base Excess 15 H 14 H 16 H VBG pH VBG pCO2 VBG pO2 VBG Base Excess 06/22/24 06/23/24 06/24/24 04:18 04:29 04:25 ABG pH 7.45 7.46 H 7.29 L D ABG pCO2 57 H 53 H 80 H* D ABG pO2 60 L D 99 D 88 ABG HCO3 40 H 38 H 38 H ABG O2 Saturation 91 99 H 96 ABG Base Excess 14 H 13 H 9 H VBG pH VBG pCO2 VBG pO2 VBG Base Excess 06/24/24 06/25/24 06/25/24 08:50 05:13 11:02 ABG pH 7.40 D 7.46 H Cancelled ABG pCO2 61 H D 53 H Cancelled ABG pO2 110 H D 66 L D Cancelled ABG HCO3 38 H 38 H Cancelled ABG O2 Saturation 99 H 94 Cancelled ABG Base Excess 12 H 13 H Cancelled VBG pH VBG pCO2 VBG pO2 VBG Base Excess 06/25/24 06/26/24 06/26/24 15:53 04:13 11:40 ABG pH 7.39 7.41 7.46 H ABG pCO2 53 H 48 43 ABG pO2 55 L* 58 L* 58 L* ABG HCO3 32 H 30 H 31 H ABG O2 Saturation 86 L 89 L 92 ABG Base Excess 6 H 5 H 6 H VBG pH VBG pCO2 VBG pO2 VBG Base Excess 06/27/24 06/28/24 06/28/24 04:17 04:24 06:22 ABG pH 7.48 H 7.27 L D 7.22 L ABG pCO2 39 72 H* D 83 H* D ABG pO2 49 L* 71 L D 82 L ABG HCO3 29 H 33 H 34 H ABG O2 Saturation 87 L 93 95 ABG Base Excess 5 H 5 H 4 H VBG pH VBG pCO2 VBG pO2 VBG Base Excess 06/28/24 06/29/24 06/30/24 10:18 04:21 07:57 ABG pH 7.32 L D 7.41 7.41 ABG pCO2 64 H D 63 H 62 H ABG pO2 76 L 81 L 59 L* D ABG HCO3 33 H 40 H 40 H ABG O2 Saturation 95 97 88 L ABG Base Excess 6 H 14 H 13 H VBG pH VBG pCO2 VBG pO2 VBG Base Excess 07/02/24 07/03/24 07/04/24 04:05 04:45 04:11 ABG pH 7.46 H 7.43 7.38 ABG pCO2 53 H 58 H 67 H ABG pO2 77 L 100 D 73 L D ABG HCO3 38 H 39 H 40 H ABG O2 Saturation 96 98 94 ABG Base Excess 12 H 13 H 13 H VBG pH VBG pCO2 VBG pO2 VBG Base Excess 07/05/24 07/06/24 07/09/24 04:40 04:08 04:53 ABG pH 7.30 L 7.42 D 7.26 L ABG pCO2 87 H* D 67 H D 94 H* ABG pO2 132 H D 64 L D 149 H ABG HCO3 43 H 43 H 42 H ABG O2 Saturation 99 H 92 100 H ABG Base Excess 14 H 17 H 12 H VBG pH VBG pCO2 VBG pO2 VBG Base Excess 07/11/24 07/12/24 07/14/24 11:34 04:49 04:45 ABG pH 7.25 L 7.36 D ABG pCO2 106 H* D 94 H* D ABG pO2 67 L D 59 L* ABG HCO3 46 H 53 H ABG O2 Saturation 91 90 L ABG Base Excess 16 H 24 H VBG pH 7.38 VBG pCO2 74 H VBG pO2 148 H VBG Base Excess 16 H 07/14/24 07/15/24 09:21 10:24 ABG pH 7.42 ABG pCO2 83 H* D ABG pO2 61 L ABG HCO3 54 H ABG O2 Saturation 92 ABG Base Excess 27 H VBG pH 7.39 VBG pCO2 79 H VBG pO2 40 VBG Base Excess 21 H Assessment & Plan A&P Narrative pneumonia.pjp on bal noted. hiv. infection, newly discovered in a heterosexual man. can not r/o ivdu as a presumptive aquisition cause resp failure, hypoxic with ards noted. variable O2 status jo ann, resolved. acute febrile illness. cause uncertain.rx empirical, cx unrevealing rash on rt arm. cause uncertain. stabilized, rt arm only he has hiv, gf reportely was tested and is reportedly neg. ok for hiv rx as ordered. changed bactrim to once daily about 06/29. hiv rx is ongoing. if vl less than before we are ok. unless R is noted As noted before, not every one survives, he is only 39, but is newly discovered to have a very bad disease that is easier to manage if caught earlier. ok to maintain steroid rxn. for now. repeat cx noted. ok to be off flucon as cd4 >100 and crypto ag neg. gc chlam sent 06/27 and remain pending. odd. today is 07/11/24 will have to notify pt when he is awake f his findings. be sure that gf is tested as precaution. family states she is neg. lft's noted. can be caused by any of a number of factors. normal/neg bili noted. had a blip a few days ago and is trending favoably again today no change in rx noted await the tests ordered the other day. we usually do not repeat the hiv vl and cd4 for 3 mo after verifying s virus in system.so it may not be undetectable but should be lower than at onset. would not treat for cmv, am ok with a biopsy of the rt arm if felt needed. note neg syphilis screen and unilateral finding on arm await repeated hiv testing and R assay, to verify response to rx given variable status did not do R assay initially it seems as that result is not on file. Time Spent With Patient Time: Total time spent is greater than 50% in coordination of care (as documented) at patient's floor/unit and/or counseling patient:
--- NOTE | 2024-07-15 12:02 | ESPR_ITS ---
Documentation for date of: 07/15/24 Subjective Subjective Interval history: Patient examined at bedside this morning in ICU, tapering dose of methadone , discontinue phenobarbital.EEG showed diffuse slowing. Exam Vital Signs Temp Pulse Resp BP Pulse Ox O2 Del Method O2 Flow Rate 97.9 F 109 H 24 H 115/75 95 Mechanical Ventilation 40 07/15/24 03:00 07/15/24 10:14 07/13/24 12:00 07/15/24 10:14 07/15/24 10:14 07/15/24 03:00 06/09/24 12:16 FiO2 70 07/15/24 10:14 Narrative Exam GENERAL:still intubated and MV HEENT: Normocephalic, atraumatic. Pupils are equal and reactive. Oral mucosa is moist. NECK: Supple, nontender, no JVD CARDIOVASCULAR: Tachycardic , S1/S2. no murmur or gallop rub or extra beats. LUNGS: Clear to auscultation bilaterally with symmetrical chest rise. Mechanically ventillated . ABDOMEN: Soft, flat, nontender to palpation, no guarding or rebound tenderness. Active and normal bowel sounds.PEG tube in place NEURO:Intubated and MV PSYCHIATRIC: not able to assess Objective Labs 07/15/24 05:10 07/16/24 20:42 Labs: Laboratory Results - last 24 hr 07/15/24 07/15/24 07/15/24 05:10 08:33 10:24 WBC 11.6 H RBC 2.71 L Hgb 6.9 L* Hct 24.8 L MCV 92 MCH 25.5 MCHC 27.8 L RDW Std Deviation 78.3 H Plt Count 254 Neut % (Auto) 81 H Lymph % (Auto) 6 L [place] % (Auto) 10 Eos % (Auto) 1 Baso % (Auto) 1 Neut # (Auto) 9.4 H Lymph # (Auto) 0.7 L [place] # (Auto) 1.1 H Eos # (Auto) 0.1 Baso # (Auto) 0.1 Immature Gran # (Auto) 0.14 H Absolute Nucleated RBC 0.04 H Immature Gran % 1 H Nucleated RBC % 0 VBG pH 7.39 VBG pCO2 79 H VBG pO2 40 VBG O2 Sat (Georges) 75 L VBG Base Excess 21 H Sodium 138 Potassium 4.0 Chloride 90 L Carbon Dioxide > 40.0 H Anion Gap 8 BUN 29 H Creatinine 0.7 Estim Creat Clear Calc 129.1 eGFR > 60 BUN/Creatinine Ratio 41 H Glucose 100 Calculated Osmolality 281 Calcium 8.5 Corrected Calcium 9.2 Phosphorus 4.1 Magnesium 2.2 Total Bilirubin 0.2 L AST 146 H ALT 139 H Alkaline Phosphatase 355 H D Total Protein 6.0 Albumin 3.1 L Globulin 2.9 Albumin/Globulin Ratio 1.1 L Blood Type O Positive Antibody Screen NEGATIVE Crossmatch See Detail Blood Bank Wristband ID Yes ABG Interpretation ABG results: 05/27/24 05/29/24 05/29/24 23:37 10:44 22:08 ABG pH 7.51 H 7.50 H 7.48 H ABG pCO2 28 L 32 32 ABG pO2 75 L 79 L 145 H D ABG HCO3 23 25 24 ABG O2 Saturation 96 95 98 ABG Base Excess 0 2 1 VBG pH VBG pCO2 VBG pO2 VBG Base Excess 05/30/24 05/31/24 06/04/24 08:45 04:54 02:10 ABG pH 7.47 H 7.45 7.45 ABG pCO2 35 38 36 ABG pO2 86 D 82 L 139 H ABG HCO3 26 26 25 ABG O2 Saturation 97 96 98 ABG Base Excess 2 2 1 VBG pH VBG pCO2 VBG pO2 VBG Base Excess 06/04/24 06/05/24 06/05/24 18:16 11:36 12:59 ABG pH 7.44 7.11 L* D 7.20 L ABG pCO2 36 94 H* D 68 H D ABG pO2 80 L D 150 H D 121 H D ABG HCO3 24 30 H 26 ABG O2 Saturation 94 97 97 ABG Base Excess 0 -2 -3 VBG pH VBG pCO2 VBG pO2 VBG Base Excess 06/05/24 06/06/24 06/06/24 19:25 04:13 15:27 ABG pH 7.22 L 7.27 L 7.30 L ABG pCO2 64 H 57 H 60 H ABG pO2 122 H 153 H D 74 L D ABG HCO3 26 26 29 H ABG O2 Saturation 97 99 H 92 ABG Base Excess -3 -2 2 VBG pH VBG pCO2 VBG pO2 VBG Base Excess 06/07/24 06/07/24 06/08/24 03:55 09:59 04:20 ABG pH 7.41 D 7.43 7.45 ABG pCO2 56 H 55 H 50 H ABG pO2 293 H D 78 L D 75 L ABG HCO3 36 H 37 H 35 H ABG O2 Saturation 99 H 95 94 ABG Base Excess 10 H 11 H 10 H VBG pH VBG pCO2 VBG pO2 VBG Base Excess 06/08/24 06/08/24 06/08/24 11:05 11:50 13:18 ABG pH 7.17 L* D 7.10 L* 7.15 L* ABG pCO2 95 H* D 115 H* D 88 H* D ABG pO2 89 75 L 72 L ABG HCO3 34 H 36 H 31 H ABG O2 Saturation 92 84 L 85 L ABG Base Excess 3 4 H 0 VBG pH VBG pCO2 VBG pO2 VBG Base Excess 06/08/24 06/09/24 06/09/24 17:02 01:33 03:15 ABG pH 7.18 L* 7.22 L 7.27 L ABG pCO2 50 H D 91 H* D 82 H* ABG pO2 82 L 105 D 86 ABG HCO3 19 L 37 H 38 H ABG O2 Saturation 93 97 95 ABG Base Excess -9 L 7 H 9 H VBG pH VBG pCO2 VBG pO2 VBG Base Excess 06/09/24 06/09/24 06/10/24 05:08 12:52 04:40 ABG pH 7.31 L 7.33 L 7.30 L ABG pCO2 75 H* 57 H D 78 H* D ABG pO2 97 158 H D 65 L D ABG HCO3 38 H 30 H 38 H ABG O2 Saturation 97 99 H 90 L ABG Base Excess 10 H 3 9 H VBG pH VBG pCO2 VBG pO2 VBG Base Excess 06/10/24 06/11/24 06/12/24 09:40 04:19 04:15 ABG pH 7.27 L 7.35 7.48 H D ABG pCO2 88 H* D 86 H* 63 H D ABG pO2 65 L 70 L 76 L ABG HCO3 40 H 48 H 47 H ABG O2 Saturation 89 L 93 95 ABG Base Excess 10 H 19 H 21 H VBG pH VBG pCO2 VBG pO2 VBG Base Excess 06/13/24 06/14/24 06/15/24 07:22 04:32 03:45 ABG pH 7.46 H 7.48 H 7.46 H ABG pCO2 56 H 40 D 37 ABG pO2 80 L 64 L 71 L ABG HCO3 39 H 30 H 27 H ABG O2 Saturation 95 92 94 ABG Base Excess 13 H 6 H 3 VBG pH VBG pCO2 VBG pO2 VBG Base Excess 06/15/24 06/15/24 06/15/24 10:17 12:20 14:20 ABG pH 7.01 L* D 7.00 L* 7.03 L* ABG pCO2 122 H* D 130 H* 125 H* ABG pO2 91 D 88 82 L ABG HCO3 31 H 32 H 33 H ABG O2 Saturation 88 L 88 L 87 L ABG Base Excess -3 -2 -1 VBG pH VBG pCO2 VBG pO2 VBG Base Excess 06/15/24 06/15/24 06/16/24 15:55 20:39 00:35 ABG pH 7.03 L* 7.08 L* 7.10 L* ABG pCO2 121 H* 116 H* 118 H* ABG pO2 99 117 H 102 ABG HCO3 32 H 34 H 37 H ABG O2 Saturation 93 97 96 ABG Base Excess -1 2 4 H VBG pH VBG pCO2 VBG pO2 VBG Base Excess 06/16/24 06/16/24 06/17/24 04:45 08:55 05:06 ABG pH 7.17 L* 7.28 L D 7.33 L ABG pCO2 112 H* 88 H* D 96 H* ABG pO2 155 H D 98 D 126 H D ABG HCO3 41 H 41 H 50 H ABG O2 Saturation 99 H 98 99 H ABG Base Excess 9 H 12 H 21 H VBG pH VBG pCO2 VBG pO2 VBG Base Excess 06/17/24 06/17/24 06/18/24 10:58 13:55 04:16 ABG pH 7.29 L 7.29 L 7.33 L ABG pCO2 106 H* D 106 H* 86 H* D ABG pO2 58 L* D 61 L 77 L ABG HCO3 51 H 51 H 45 H ABG O2 Saturation 87 L 88 L 95 ABG Base Excess 21 H 21 H 17 H VBG pH VBG pCO2 VBG pO2 VBG Base Excess 06/19/24 06/20/24 06/21/24 04:18 04:49 04:06 ABG pH 7.42 7.36 7.44 ABG pCO2 63 H D 74 H* D 61 H D ABG pO2 66 L 55 L* 202 H D ABG HCO3 41 H 42 H 42 H ABG O2 Saturation 93 87 L 100 H ABG Base Excess 15 H 14 H 16 H VBG pH VBG pCO2 VBG pO2 VBG Base Excess 06/22/24 06/23/24 06/24/24 04:18 04:29 04:25 ABG pH 7.45 7.46 H 7.29 L D ABG pCO2 57 H 53 H 80 H* D ABG pO2 60 L D 99 D 88 ABG HCO3 40 H 38 H 38 H ABG O2 Saturation 91 99 H 96 ABG Base Excess 14 H 13 H 9 H VBG pH VBG pCO2 VBG pO2 VBG Base Excess 06/24/24 06/25/24 06/25/24 08:50 05:13 11:02 ABG pH 7.40 D 7.46 H Cancelled ABG pCO2 61 H D 53 H Cancelled ABG pO2 110 H D 66 L D Cancelled ABG HCO3 38 H 38 H Cancelled ABG O2 Saturation 99 H 94 Cancelled ABG Base Excess 12 H 13 H Cancelled VBG pH VBG pCO2 VBG pO2 VBG Base Excess 06/25/24 06/26/24 06/26/24 15:53 04:13 11:40 ABG pH 7.39 7.41 7.46 H ABG pCO2 53 H 48 43 ABG pO2 55 L* 58 L* 58 L* ABG HCO3 32 H 30 H 31 H ABG O2 Saturation 86 L 89 L 92 ABG Base Excess 6 H 5 H 6 H VBG pH VBG pCO2 VBG pO2 VBG Base Excess 06/27/24 06/28/24 06/28/24 04:17 04:24 06:22 ABG pH 7.48 H 7.27 L D 7.22 L ABG pCO2 39 72 H* D 83 H* D ABG pO2 49 L* 71 L D 82 L ABG HCO3 29 H 33 H 34 H ABG O2 Saturation 87 L 93 95 ABG Base Excess 5 H 5 H 4 H VBG pH VBG pCO2 VBG pO2 VBG Base Excess 06/28/24 06/29/24 06/30/24 10:18 04:21 07:57 ABG pH 7.32 L D 7.41 7.41 ABG pCO2 64 H D 63 H 62 H ABG pO2 76 L 81 L 59 L* D ABG HCO3 33 H 40 H 40 H ABG O2 Saturation 95 97 88 L ABG Base Excess 6 H 14 H 13 H VBG pH VBG pCO2 VBG pO2 VBG Base Excess 07/02/24 07/03/24 07/04/24 04:05 04:45 04:11 ABG pH 7.46 H 7.43 7.38 ABG pCO2 53 H 58 H 67 H ABG pO2 77 L 100 D 73 L D ABG HCO3 38 H 39 H 40 H ABG O2 Saturation 96 98 94 ABG Base Excess 12 H 13 H 13 H VBG pH VBG pCO2 VBG pO2 VBG Base Excess 07/05/24 07/06/24 07/09/24 04:40 04:08 04:53 ABG pH 7.30 L 7.42 D 7.26 L ABG pCO2 87 H* D 67 H D 94 H* ABG pO2 132 H D 64 L D 149 H ABG HCO3 43 H 43 H 42 H ABG O2 Saturation 99 H 92 100 H ABG Base Excess 14 H 17 H 12 H VBG pH VBG pCO2 VBG pO2 VBG Base Excess 07/11/24 07/12/24 07/14/24 11:34 04:49 04:45 ABG pH 7.25 L 7.36 D ABG pCO2 106 H* D 94 H* D ABG pO2 67 L D 59 L* ABG HCO3 46 H 53 H ABG O2 Saturation 91 90 L ABG Base Excess 16 H 24 H VBG pH 7.38 VBG pCO2 74 H VBG pO2 148 H VBG Base Excess 16 H 07/14/24 07/15/24 09:21 10:24 ABG pH 7.42 ABG pCO2 83 H* D ABG pO2 61 L ABG HCO3 54 H ABG O2 Saturation 92 ABG Base Excess 27 H VBG pH 7.39 VBG pCO2 79 H VBG pO2 40 VBG Base Excess 21 H Quality Measures Quality Measures sepsis Current suspected stage: sepsis Possible source: pulmonary, GI tract/intra-abdominal, genitourinary and skin/soft tissue Blood cultures ordered: yes Antibiotic ordered: Yes Assessment & Plan Assessment Current Active Medications: Generic Name Dose Route Start Last Admin Trade Name Freq PRN Reason Stop Dose Admin Acetaminophen 650 mg 06/26/24 15:16 07/15/24 00:37 Acetaminophen Munira 325 Mg/10 Ml Udc GT 07/26/24 15:15 650 mg Q4HR PRN Administration Pain Or Fever > 100.3 Artificial Tears 1 drop 06/18/24 12:00 07/15/24 05:18 Artificial Tears 225 Drop/15 Ml Btl BOTH EYES 07/18/24 11:59 1 drop QID JUAN JOSE Administration Aspirin 81 mg 07/11/24 09:30 07/15/24 08:18 Aspirin 81 Mg Chew PO 08/08/24 10:59 81 mg QDAY JUAN JOSE Administration Atorvastatin Calcium 80 mg 07/10/24 21:00 07/14/24 20:40 Atorvastatin Calcium 20 Mg Tablet PO 08/09/24 20:59 80 mg HS JUAN JOSE Administration Calcium Carbonate 600 mg 06/28/24 13:00 07/14/24 14:18 Calcium Carbonate 600 Mg Tablet GT 07/28/24 12:59 600 mg QDAY@1300 JUAN JOSE Administration Clonazepam 0.25 mg 07/15/24 09:00 07/15/24 08:18 Clonazepam 0.5 Mg Tablet PO 07/20/24 08:59 0.25 mg BID JUAN JOSE Administration Docusate Sodium 100 mg 06/25/24 09:13 Docusate Sod Liqd 100 Mg/10 Ml Udc PO 07/22/24 08:59 BID PRN Constipation Protocol Emtricitabine/Tenofovir 1 tab 07/06/24 11:30 07/15/24 08:25 Emtricitabine 200 Mg/Tenofovir 300 Mg Tab (Non-Form) PO 08/19/24 14:33 1 tab QDAY JUAN JOSE Administration Enoxaparin Sodium 80 mg 07/11/24 21:00 07/15/24 08:18 Enoxaparin Sod Inj 80 Mg/0.8 Ml Syringe SC 07/25/24 20:59 80 mg BID JUAN JOSE Administration Ferrous Sulfate 300 mg 07/02/24 10:00 07/15/24 08:14 Ferrous Sulfate 300 Mg/5 Ml Udc GT 07/23/24 09:59 300 mg QDAY JUAN JOSE Administration Gabapentin 400 mg 07/13/24 21:00 07/15/24 08:19 Gabapentin 100 Mg Capsule GT 08/12/24 20:59 400 mg BID JUAN JOSE Administration Norepinephrine/Dextrose 8 mg in 250 mls @ 6.319 mls/hr 06/30/24 04:17 07/09/24 11:30 Levophed In D5w 8mg/250ml IV 07/30/24 04:16 0 mcg/kg/min .Q24H PRN 0 mls/hr PER PROTOCOL Titration Protocol 0.05 MCG/KG/MIN Dexmedetomidine/Sodium Chloride 200 mcg in 50 mls @ 4.01 mls/hr 07/13/24 04:40 07/13/24 11:42 Precedex Ivpb IV 08/12/24 04:29 0 mcg/kg/hr .[id number] PRN 0 mls/hr Per PROTOCOL Titration Protocol 0.2 MCG/KG/HR Methadone HCl 20 mg 07/12/24 22:00 07/15/24 05:14 Methadone Hcl 10 Mg Tablet GT 07/17/24 21:59 20 mg Q8HR JUAN JOSE Administration Methylprednisolone 20 mg 07/14/24 09:00 07/15/24 08:18 Methylprednisolone 4 Mg Tablet PO 08/13/24 08:59 20 mg QDAY JUAN JOSE Administration Pantoprazole Sodium 40 mg 07/07/24 09:32 07/15/24 08:19 Pantoprazole Inj 40 Mg Vial IV 08/06/24 09:31 40 mg QDAY JUAN JOSE Administration Phenobarbital 30 mg 07/16/24 09:00 Phenobarbital Elix 20 Mg/5 Ml Udc GT 07/30/24 08:59 QDAY JUAN JOSE Protocol Raltegravir 400 mg 07/06/24 11:30 07/15/24 08:18 Raltegravir 400 Mg Tablet NG 08/19/24 14:33 400 mg BID JUAN JOSE Administration Trimethoprim/Sulfamethoxazole 20 ml 06/23/24 09:00 07/15/24 08:36 Trimethoprim/Sulfa Susp 1 Ml PO 06/22/25 12:00 20 ml QDAY JUAN JOSE Administration Trimethoprim/Sulfamethoxazole 20 ml 07/15/24 09:00 07/15/24 08:36 Trimethoprim 160 Mg/Sulfa 800 Mg Susp 20 Ml Udc PO 06/22/25 12:00 Not Given QDAY JUAN JOSE Plan 39-year-old male patient with no PMHx who initially presented to [facility] on 05/27/2024 with a chief complaint of shortness of breath and cough, with associated chills, body aches, generalized weakness, fever, and night sweats beginning weeks prior but progressively worsening over a few days is currently being treated for acute hypoxic respiratory failure secondary to PCP pneumonia that was complicated by ventilator associated pneumonia. Patient is currently on tracheostomy tube and mechanically ventilated. #Acute ischemic stroke: -Continue with aspirin, Plavix and statin -MRI brain showed multiple acute nonhemorrhagic infarction involving the left parietal area, could be from hypotension/hypoxia causing watershed infarct -EEG showed diffuse slowing # Acute respiratory failure with hypoxia: -Trached and on ventilator -Coming off of the sedation, including clonazepam, phenobarbital and Seroquel. -Continue with the gabapentin and methadone for now.slowely taper -His condition is critical and his prognosis is poor. No significant improvement noted with weaning from sedation. Rest of medical management as per ICU Discussed the patient with my attending Volodymyr Phan MD,PGY-3 Attending Provider Attestation/Addendum Patient was seen and examined at the bedside and agreed with resident's findings, assessment and plan of care.
[2024-07-15] MEDS: CALCIUM CARBONATE 600 MG TABLET GT (13:41)
--- NOTE | 2024-07-15 14:13 | PD.RESPRO ---
Documentation for date of: 07/15/24 Subjective Subjective Interval history: 07/12/2024: The patient was evaluated and examined at the bedside this morning. He was saturating 95 to 96% on FiO2 65%, plateau pressure of 22, tidal volume 500 cc, RR 28-30. ABG done was significant for pH of 7.25, pCO2 106, bicarb 46. Ventilator mode was changed to pressure support of 25, and FiO2 decreased to 60%. He was tachycardic in 110s. Patient still unresponsive to painful stimulus. We will decrease phenobarbital 90 Mg to 60 Mg 3 times daily, and Seroquel 50 Mg twice daily to Seroquel 50 Mg at bedtime, and continue with methadone 10 Mg 3 times daily and gabapentin 200 Mg twice daily. We will slowly taper down his oral sedatives, and try SAT in couple of days. 07/13/24: The patient was evaluated and examined at the bedside this morning. Overnight, the patient was having severe tremors, and was started on Precedex drip, initially tremors resolved but later required midazolam 2 mg IV x 1 followed by midazolam 4 mg IV x 1 which resolved his tremors. He is still tachycardic in 110s. We will continue with the volume control setting at this point and start him on SIMV with TV 500cc, PS 15, PEEP 10 and RR 10 in the evening. We will continue with phenobarbital 60 Mg 3 times daily, decreased clonazepam to 0.5 Mg 3 times daily, continue with Precedex drip, and increased the dose of gabapentin to 400 Mg twice daily. We will do lab work every 72 hours. The plan is to try with SAT in a couple of days. 07/14/24: The patient was evaluated and examined at the bedside this morning. Patient did not had any overnight events. We have discontinued all IV sedatives, and we decreased the frequency of doses of phenobarbital 60 Mg twice daily, clonazepam 0.5 Mg twice daily, and will continue gabapentin 400 Mg twice daily along with methadone 20 Mg 3 times daily. Lung compliance seems to be improving. His white count was 15.1, ABG done revealed pCO2 83, bicarb 54 with phosphorus 2.3. Phosphorus and magnesium was repleted. Liver enzymes trending down. We ordered EEG to evaluate for any further anoxic brain injury. We will try to get SAT in a couple of days. 07/15/2024: The patient was evaluated and examined at the bedside this morning. No acute overnight events. We gave 1 dose of phenobarbital 30 Mg and stopped it. Clonazepam dose was decreased down to 0.25 Mg twice daily, we will continue with gabapentin 400 Mg twice daily and methadone was decreased to 15 Mg 3 times daily. Lung compliance seems to be improving, white count trending down, hemoglobin was 6.9 and 1 unit PRBC was ordered. VBG revealed pCO2 of 79, pO2 40 and pH 7.39. Mild elevation in liver enzymes, we will continue to monitor. EEG was significant for diffuse slowing of waveforms, but official reading pending. Exam Vital Signs Temp Pulse Resp BP Pulse Ox O2 Del Method O2 Flow Rate 99.1 F 112 H 32 H 127/73 93 L Mechanical Ventilation 70 07/15/24 13:55 07/15/24 13:55 07/15/24 13:55 07/15/24 13:55 07/15/24 13:55 07/15/24 03:00 07/15/24 13:55 FiO2 70 07/15/24 10:14 Narrative Exam GEN: Critically ill, not acutely distressed, sedated and mechanically ventilated. Neuro: Deferred due to sedation. HEENT: NCAT, tracheostomy tube on appropriate position. CVS: Mildly tachycardic, no M/R/G. No JVD Respi: Mechanically ventilated, b/l breath sounds heard, significant rhonchi in all lung rosas ABD: Soft, no grimace to palpation, bowel sounds present in all 4 quadrants, PEG tube in appropriate place Skin: warm, dry and intact. Extremities: Pulses 2+ in all extremities, bilateral upper extremity 1+ edema, ruptured vesicles 1-2 cm on the rt forearm surface that have been healing. Objective Labs 07/22/24 09:31 07/22/24 09:31 Labs: Laboratory Results - last 24 hr 07/15/24 07/15/24 07/15/24 05:10 08:33 10:24 WBC 11.6 H RBC 2.71 L Hgb 6.9 L* Hct 24.8 L MCV 92 MCH 25.5 MCHC 27.8 L RDW Std Deviation 78.3 H Plt Count 254 Neut % (Auto) 81 H Lymph % (Auto) 6 L [place] % (Auto) 10 Eos % (Auto) 1 Baso % (Auto) 1 Neut # (Auto) 9.4 H Lymph # (Auto) 0.7 L [place] # (Auto) 1.1 H Eos # (Auto) 0.1 Baso # (Auto) 0.1 Immature Gran # (Auto) 0.14 H Absolute Nucleated RBC 0.04 H Immature Gran % 1 H Nucleated RBC % 0 VBG pH 7.39 VBG pCO2 79 H VBG pO2 40 VBG O2 Sat (Georges) 75 L VBG Base Excess 21 H Sodium 138 Potassium 4.0 Chloride 90 L Carbon Dioxide > 40.0 H Anion Gap 8 BUN 29 H Creatinine 0.7 Estim Creat Clear Calc 129.1 eGFR > 60 BUN/Creatinine Ratio 41 H Glucose 100 Calculated Osmolality 281 Calcium 8.5 Corrected Calcium 9.2 Phosphorus 4.1 Magnesium 2.2 Total Bilirubin 0.2 L AST 146 H ALT 139 H Alkaline Phosphatase 355 H D Total Protein 6.0 Albumin 3.1 L Globulin 2.9 Albumin/Globulin Ratio 1.1 L Blood Type O Positive Antibody Screen NEGATIVE Crossmatch See Detail Blood Bank Wristband ID Yes ABG Interpretation ABG results: 05/27/24 05/29/24 05/29/24 23:37 10:44 22:08 ABG pH 7.51 H 7.50 H 7.48 H ABG pCO2 28 L 32 32 ABG pO2 75 L 79 L 145 H D ABG HCO3 23 25 24 ABG O2 Saturation 96 95 98 ABG Base Excess 0 2 1 VBG pH VBG pCO2 VBG pO2 VBG Base Excess 05/30/24 05/31/24 06/04/24 08:45 04:54 02:10 ABG pH 7.47 H 7.45 7.45 ABG pCO2 35 38 36 ABG pO2 86 D 82 L 139 H ABG HCO3 26 26 25 ABG O2 Saturation 97 96 98 ABG Base Excess 2 2 1 VBG pH VBG pCO2 VBG pO2 VBG Base Excess 06/04/24 06/05/24 06/05/24 18:16 11:36 12:59 ABG pH 7.44 7.11 L* D 7.20 L ABG pCO2 36 94 H* D 68 H D ABG pO2 80 L D 150 H D 121 H D ABG HCO3 24 30 H 26 ABG O2 Saturation 94 97 97 ABG Base Excess 0 -2 -3 VBG pH VBG pCO2 VBG pO2 VBG Base Excess 06/05/24 06/06/24 06/06/24 19:25 04:13 15:27 ABG pH 7.22 L 7.27 L 7.30 L ABG pCO2 64 H 57 H 60 H ABG pO2 122 H 153 H D 74 L D ABG HCO3 26 26 29 H ABG O2 Saturation 97 99 H 92 ABG Base Excess -3 -2 2 VBG pH VBG pCO2 VBG pO2 VBG Base Excess 06/07/24 06/07/24 06/08/24 03:55 09:59 04:20 ABG pH 7.41 D 7.43 7.45 ABG pCO2 56 H 55 H 50 H ABG pO2 293 H D 78 L D 75 L ABG HCO3 36 H 37 H 35 H ABG O2 Saturation 99 H 95 94 ABG Base Excess 10 H 11 H 10 H VBG pH VBG pCO2 VBG pO2 VBG Base Excess 06/08/24 06/08/24 06/08/24 11:05 11:50 13:18 ABG pH 7.17 L* D 7.10 L* 7.15 L* ABG pCO2 95 H* D 115 H* D 88 H* D ABG pO2 89 75 L 72 L ABG HCO3 34 H 36 H 31 H ABG O2 Saturation 92 84 L 85 L ABG Base Excess 3 4 H 0 VBG pH VBG pCO2 VBG pO2 VBG Base Excess 06/08/24 06/09/24 06/09/24 17:02 01:33 03:15 ABG pH 7.18 L* 7.22 L 7.27 L ABG pCO2 50 H D 91 H* D 82 H* ABG pO2 82 L 105 D 86 ABG HCO3 19 L 37 H 38 H ABG O2 Saturation 93 97 95 ABG Base Excess -9 L 7 H 9 H VBG pH VBG pCO2 VBG pO2 VBG Base Excess 06/09/24 06/09/24 06/10/24 05:08 12:52 04:40 ABG pH 7.31 L 7.33 L 7.30 L ABG pCO2 75 H* 57 H D 78 H* D ABG pO2 97 158 H D 65 L D ABG HCO3 38 H 30 H 38 H ABG O2 Saturation 97 99 H 90 L ABG Base Excess 10 H 3 9 H VBG pH VBG pCO2 VBG pO2 VBG Base Excess 11/22/24 11/23/24 11/24/24 09:40 04:19 04:15 ABG pH 7.27 L 7.35 7.48 H D ABG pCO2 88 H* D 86 H* 63 H D ABG pO2 65 L 70 L 76 L ABG HCO3 40 H 48 H 47 H ABG O2 Saturation 89 L 93 95 ABG Base Excess 10 H 19 H 21 H VBG pH VBG pCO2 VBG pO2 VBG Base Excess 06/13/24 06/14/24 06/15/24 07:22 04:32 03:45 ABG pH 7.46 H 7.48 H 7.46 H ABG pCO2 56 H 40 D 37 ABG pO2 80 L 64 L 71 L ABG HCO3 39 H 30 H 27 H ABG O2 Saturation 95 92 94 ABG Base Excess 13 H 6 H 3 VBG pH VBG pCO2 VBG pO2 VBG Base Excess 06/15/24 06/15/24 06/15/24 10:17 12:20 14:20 ABG pH 7.01 L* D 7.00 L* 7.03 L* ABG pCO2 122 H* D 130 H* 125 H* ABG pO2 91 D 88 82 L ABG HCO3 31 H 32 H 33 H ABG O2 Saturation 88 L 88 L 87 L ABG Base Excess -3 -2 -1 VBG pH VBG pCO2 VBG pO2 VBG Base Excess 06/15/24 06/15/24 06/16/24 15:55 20:39 00:35 ABG pH 7.03 L* 7.08 L* 7.10 L* ABG pCO2 121 H* 116 H* 118 H* ABG pO2 99 117 H 102 ABG HCO3 32 H 34 H 37 H ABG O2 Saturation 93 97 96 ABG Base Excess -1 2 4 H VBG pH VBG pCO2 VBG pO2 VBG Base Excess 06/16/24 06/16/24 06/17/24 04:45 08:55 05:06 ABG pH 7.17 L* 7.28 L D 7.33 L ABG pCO2 112 H* 88 H* D 96 H* ABG pO2 155 H D 98 D 126 H D ABG HCO3 41 H 41 H 50 H ABG O2 Saturation 99 H 98 99 H ABG Base Excess 9 H 12 H 21 H VBG pH VBG pCO2 VBG pO2 VBG Base Excess 06/17/24 06/17/24 06/18/24 10:58 13:55 04:16 ABG pH 7.29 L 7.29 L 7.33 L ABG pCO2 106 H* D 106 H* 86 H* D ABG pO2 58 L* D 61 L 77 L ABG HCO3 51 H 51 H 45 H ABG O2 Saturation 87 L 88 L 95 ABG Base Excess 21 H 21 H 17 H VBG pH VBG pCO2 VBG pO2 VBG Base Excess 06/19/24 06/20/24 06/21/24 04:18 04:49 04:06 ABG pH 7.42 7.36 7.44 ABG pCO2 63 H D 74 H* D 61 H D ABG pO2 66 L 55 L* 202 H D ABG HCO3 41 H 42 H 42 H ABG O2 Saturation 93 87 L 100 H ABG Base Excess 15 H 14 H 16 H VBG pH VBG pCO2 VBG pO2 VBG Base Excess 06/22/24 06/23/24 06/24/24 04:18 04:29 04:25 ABG pH 7.45 7.46 H 7.29 L D ABG pCO2 57 H 53 H 80 H* D ABG pO2 60 L D 99 D 88 ABG HCO3 40 H 38 H 38 H ABG O2 Saturation 91 99 H 96 ABG Base Excess 14 H 13 H 9 H VBG pH VBG pCO2 VBG pO2 VBG Base Excess 06/24/24 06/25/24 06/25/24 08:50 05:13 11:02 ABG pH 7.40 D 7.46 H Cancelled ABG pCO2 61 H D 53 H Cancelled ABG pO2 110 H D 66 L D Cancelled ABG HCO3 38 H 38 H Cancelled ABG O2 Saturation 99 H 94 Cancelled ABG Base Excess 12 H 13 H Cancelled VBG pH VBG pCO2 VBG pO2 VBG Base Excess 06/25/24 06/26/24 06/26/24 15:53 04:13 11:40 ABG pH 7.39 7.41 7.46 H ABG pCO2 53 H 48 43 ABG pO2 55 L* 58 L* 58 L* ABG HCO3 32 H 30 H 31 H ABG O2 Saturation 86 L 89 L 92 ABG Base Excess 6 H 5 H 6 H VBG pH VBG pCO2 VBG pO2 VBG Base Excess 06/27/24 06/28/24 06/28/24 04:17 04:24 06:22 ABG pH 7.48 H 7.27 L D 7.22 L ABG pCO2 39 72 H* D 83 H* D ABG pO2 49 L* 71 L D 82 L ABG HCO3 29 H 33 H 34 H ABG O2 Saturation 87 L 93 95 ABG Base Excess 5 H 5 H 4 H VBG pH VBG pCO2 VBG pO2 VBG Base Excess 06/28/24 06/29/24 06/30/24 10:18 04:21 07:57 ABG pH 7.32 L D 7.41 7.41 ABG pCO2 64 H D 63 H 62 H ABG pO2 76 L 81 L 59 L* D ABG HCO3 33 H 40 H 40 H ABG O2 Saturation 95 97 88 L ABG Base Excess 6 H 14 H 13 H VBG pH VBG pCO2 VBG pO2 VBG Base Excess 07/02/24 07/03/24 07/04/24 04:05 04:45 04:11 ABG pH 7.46 H 7.43 7.38 ABG pCO2 53 H 58 H 67 H ABG pO2 77 L 100 D 73 L D ABG HCO3 38 H 39 H 40 H ABG O2 Saturation 96 98 94 ABG Base Excess 12 H 13 H 13 H VBG pH VBG pCO2 VBG pO2 VBG Base Excess 07/05/24 07/06/24 07/09/24 04:40 04:08 04:53 ABG pH 7.30 L 7.42 D 7.26 L ABG pCO2 87 H* D 67 H D 94 H* ABG pO2 132 H D 64 L D 149 H ABG HCO3 43 H 43 H 42 H ABG O2 Saturation 99 H 92 100 H ABG Base Excess 14 H 17 H 12 H VBG pH VBG pCO2 VBG pO2 VBG Base Excess 07/11/24 07/12/24 07/14/24 11:34 04:49 04:45 ABG pH 7.25 L 7.36 D ABG pCO2 106 H* D 94 H* D ABG pO2 67 L D 59 L* ABG HCO3 46 H 53 H ABG O2 Saturation 91 90 L ABG Base Excess 16 H 24 H VBG pH 7.38 VBG pCO2 74 H VBG pO2 148 H VBG Base Excess 16 H 07/14/24 07/15/24 09:21 10:24 ABG pH 7.42 ABG pCO2 83 H* D ABG pO2 61 L ABG HCO3 54 H ABG O2 Saturation 92 ABG Base Excess 27 H VBG pH 7.39 VBG pCO2 79 H VBG pO2 40 VBG Base Excess 21 H Quality Measures Quality Measures sepsis Current suspected stage: ruled out Possible source: pulmonary, GI tract/intra-abdominal, genitourinary and skin/soft tissue Blood cultures ordered: yes Antibiotic ordered: No Assessment & Plan Assessment Current Active Medications: Generic Name Dose Route Start Last Admin Trade Name Freq PRN Reason Stop Dose Admin Acetaminophen 650 mg 06/26/24 15:16 07/15/24 00:37 Acetaminophen Munira 325 Mg/10 Ml Udc GT 07/26/24 15:15 650 mg Q4HR PRN Administration Pain Or Fever > 100.3 Artificial Tears 1 drop 06/18/24 12:00 07/15/24 13:41 Artificial Tears 225 Drop/15 Ml Btl BOTH EYES 07/18/24 11:59 1 drop QID JUAN JOSE Administration Aspirin 81 mg 07/11/24 09:30 07/15/24 08:18 Aspirin 81 Mg Chew PO 08/08/24 10:59 81 mg QDAY JUAN JOSE Administration Atorvastatin Calcium 80 mg 07/10/24 21:00 07/14/24 20:40 Atorvastatin Calcium 20 Mg Tablet PO 08/09/24 20:59 80 mg HS JUAN JOSE Administration Calcium Carbonate 600 mg 06/28/24 13:00 07/15/24 13:41 Calcium Carbonate 600 Mg Tablet GT 07/28/24 12:59 600 mg QDAY@1300 JUAN JOSE Administration Clonazepam 0.25 mg 07/15/24 09:00 07/15/24 08:18 Clonazepam 0.5 Mg Tablet PO 07/20/24 08:59 0.25 mg BID JUAN JOSE Administration Docusate Sodium 100 mg 06/25/24 09:13 Docusate Sod Liqd 100 Mg/10 Ml Udc PO 07/22/24 08:59 BID PRN Constipation Protocol Emtricitabine/Tenofovir 1 tab 07/06/24 11:30 07/15/24 08:25 Emtricitabine 200 Mg/Tenofovir 300 Mg Tab (Non-Form) PO 08/19/24 14:33 1 tab QDAY JUAN JOSE Administration Enoxaparin Sodium 80 mg 07/11/24 21:00 07/15/24 08:18 Enoxaparin Sod Inj 80 Mg/0.8 Ml Syringe SC 07/25/24 20:59 80 mg BID JUAN JOSE Administration Ferrous Sulfate 300 mg 07/02/24 10:00 07/15/24 08:14 Ferrous Sulfate 300 Mg/5 Ml Udc GT 07/23/24 09:59 300 mg QDAY JUAN JOSE Administration Gabapentin 400 mg 07/13/24 21:00 07/15/24 08:19 Gabapentin 100 Mg Capsule GT 08/12/24 20:59 400 mg BID JUAN JOSE Administration Norepinephrine/Dextrose 8 mg in 250 mls @ 6.319 mls/hr 06/30/24 04:17 07/09/24 11:30 Levophed In D5w 8mg/250ml IV 07/30/24 04:16 0 mcg/kg/min .Q24H PRN 0 mls/hr PER PROTOCOL Titration Protocol 0.05 MCG/KG/MIN Dexmedetomidine/Sodium Chloride 200 mcg in 50 mls @ 4.01 mls/hr 07/13/24 04:40 07/13/24 11:42 Precedex Ivpb IV 08/12/24 04:29 0 mcg/kg/hr .[id number] PRN 0 mls/hr Per PROTOCOL Titration Protocol 0.2 MCG/KG/HR Methadone HCl 20 mg 07/12/24 22:00 07/15/24 13:41 Methadone Hcl 10 Mg Tablet GT 07/17/24 21:59 20 mg Q8HR JUAN JOSE Administration Methylprednisolone 20 mg 07/14/24 09:00 07/15/24 08:18 Methylprednisolone 4 Mg Tablet PO 08/13/24 08:59 20 mg QDAY JUAN JOSE Administration Pantoprazole Sodium 40 mg 07/07/24 09:32 07/15/24 08:19 Pantoprazole Inj 40 Mg Vial IV 08/06/24 09:31 40 mg QDAY JUAN JOSE Administration Phenobarbital 30 mg 07/16/24 09:00 Phenobarbital Elix 20 Mg/5 Ml Udc GT 07/30/24 08:59 QDAY JUAN JOSE Protocol Raltegravir 400 mg 07/06/24 11:30 07/15/24 08:18 Raltegravir 400 Mg Tablet NG 08/19/24 14:33 400 mg BID JUAN JOSE Administration Trimethoprim/Sulfamethoxazole 20 ml 06/23/24 09:00 07/15/24 08:36 Trimethoprim/Sulfa Susp 1 Ml PO 06/22/25 12:00 20 ml QDAY JUAN JOSE Administration Trimethoprim/Sulfamethoxazole 20 ml 07/15/24 09:00 07/15/24 08:36 Trimethoprim 160 Mg/Sulfa 800 Mg Susp 20 Ml Udc PO 06/22/25 12:00 Not Given QDAY JUAN JOSE Plan 39-year-old male patient with no PMHx who initially presented to [facility] on 05/[facility]/2024 with a chief complaint of shortness of breath and cough, with associated chills, body aches, generalized weakness, fever, and night sweats beginning weeks prior but progressively worsening over a few days is currently being treated for acute hypoxic respiratory failure secondary to PCP pneumonia that was complicated by ventilator associated pneumonia. Patient is currently on tracheostomy tube and mechanically ventilated. 07/15/2024: The patient was evaluated and examined at the bedside this morning. No acute overnight events. We gave 1 dose of phenobarbital 30 Mg and stopped it. Clonazepam dose was decreased down to 0.25 Mg twice daily, we will continue with gabapentin 400 Mg twice daily and methadone was decreased to 15 Mg 3 times daily. Lung compliance seems to be improving, white count trending down, hemoglobin was 6.9 and 1 unit PRBC was ordered. VBG revealed pCO2 of 79, pO2 40 and pH 7.39. Mild elevation in liver enzymes, we will continue to monitor. EEG was significant for diffuse slowing of waveforms, but official reading pending. NEURO Patient is sedated and mechanically ventilated through tracheostomy tube. 06/05/2024 Patient was intubated, sedated, and paralyzed for ARDS. -We gave 1 dose of phenobarbital 30 Mg and stopped it. Clonazepam dose was decreased down to 0.25 Mg twice daily, we will continue with gabapentin 400 Mg twice daily and methadone was decreased to 15 Mg 3 times daily #Rt Parietal ischemic Stroke MRI on 07/08 Large area of restricted diffusion in the left frontal parietal white matter and small foci in the right parietal white matter most consistent with acute infarction -On aspirin 81mg daily and atorvastatin 80mg daily at night. #Fever, resolved #Withdrawal syndrome, stable Multiple cultures has been negative -Repeat influenza and COVID test on 07/04 negative -Repeat blood, urine and sputum culture are negative -Treat underlying condition -Tylenol as needed CARDIO #Right subclavian and axillary vein DVT. -Doppler US right upper extremity 06/17/24: revealed RUE DVT -On Heparin Drip 06/17-07/09, On Enoxaparin 75mg BID 07/11- #Sinus tachycardia Tachycardia most likely secondary to acute respiratory distress syndrome contributed by withdrawal while tapering the dose of IV sedatives -Continue to treat underlying cause #Shock, resolved Most likely 2/2 sedation. BC has been negative and on appropriate antibiotics Patient presented with septic shock secondary to severe extensive bilateral pneumonia. After resolution of initial septic shock, patient developed new hypotension, tachycardia, tachypnea, fevers indicated of septic shock. -Pressor support as needed -Linezolid (started 06/27-07/04) -Meropenem (started 06/27-07/04) -Urine (06/27) showed resistant staph epi -Blood (06/27) showed resistant Staphylococcus haemolyticus -follow up repeat blood cultures and urine cultures -taper down sedatives as tolerated PULM #Chronic hypoxic respiratory failure 2/2 # Acute respiratory distress syndrome in the setting of post PCP pneumonia state Secondary to #Bilateral pneumocystis jirovecii pneumonia, resolved #Healthcare associated pneumonia, resolved, resolved #Ventilator associated pneumonia, resolved #S/P Tracheostomy #Pneumomediastinum, resolved -ABG done on 07/14/24 showed improvement. On vent support -Titrate down FiO2 as tolerated GI GI prophylaxis: IV pantoprazole 40 Mg daily #Elevated LFTs 2/2 HIV DDx: adverse affect of drugs, we had discontinued oxycodone previously, and phenobarbitol Liver enzymes started trending down after discontinuing oxycodone and phenobarbitol. liver US 05/30/2024 showed normal gallbladder and hepatomegaly without lesions or evidence of obstructions. Hep panel negative. LFTs downtrending Plan: -Continue monitoring #Hypertriglyceridemia, down trending secondary to propofol use, -Discontinued propofol NEPHRO #Central diabetes insipidus, resolved #Hypophosphatemia, repleted #WILL, resolved #Hyperkalemia On 07/12/24 K 5.8, Received 30g kayexalate #Mild hyponatremia Secondary to SIADH due to acute hypoxic respiratory failure leading to pulmonary distress -Continue to monitor #Hyperphosphetemia, stable -on sevelamir 800mg TID and calcium carbonate 600mg daily #NAGMA #Primary Respiratory acidosis compensated by metabolic alkalosis Secondary to increased work of breathing and increased RR 2/2 chronic hypoxic respiratory failure and chronic respiratory distress syndrome in the setting of tapering down of IV sedatives -ABGs 07/12 pH of 7.25, pCO2 106, bicarb 46 -We will treat the underlying cause respiratory acidosis HEME #Leukocytosis Likely reactive as we are tapering down sedatives and is still on steroid #Microcytic anemia 2/2 STEPHY and Inflammatory anemia Stable, has not required any transfusions this admission thus far. Clinically no evidence of bleeding. Iron panel shows iron 17, TIBC 262, iron saturation 6, unsaturated iron binding 245. Peripheral blood film confirms microcytic hypochromic anemia with target cells. Also daily lab draws contributing. Plan: -Started on oral ferrous sulfate 300 Mg daily -Feraheme 510mg was given x1 on 07/15/24 -Monitor H&H. Transfusing for Hgb <7 #Thrombocytosis, resolved Likely reactive in the setting of withdrawal syndrome -Continue to monitor ENDO #Hypoglycemia, resolved ID #Bilateral pneumocystis pneumonia, resolved #Healthcare associated pneumonia, resolved #Ventilator associated pneumonia, resolved #PCP pneumonia prophylaxis Negative studies: Cocci IgM and IgG, Hepatitis panel, Syphilis, Legionella, H.flu, N.meningitidis, Strep B, Strep pneumoniae, COVID, RSV, Flu A & B. TB quantiferon GOLD-indeterminate, however 06/05 AFB negative, CMV IgM, cryptococcal antigen negative. G6PD levels came back normal for consideration of dapsone alternative to Bactrim if needed. Patient completed 5 day course of azithromycin, 16 days of Zosyn. See Pulm for timeline of antimicrobial coverage. On 06/27 patient developed new septic shock Plan: -Antibiotcs Bactrim for prevention of PCP pneumonia in the setting of CD4 count of 116 -Linezolid and meropenum restarted on 06/27/2024-07/04/24 -Urine ackerman port grew GPC, Staph epidermidis that is MDR, sensitive to linezolid. -Fungal cultures from BAL pending, follow-up on results -Blood cultures from 06/26/2024 and 06/27/2024, negative so far, cultures drawn on 06/29/2024 is pending -Follow up blood, sputum, and urine cultures were negative -Repeat blood, urine, sputum cultures were ordered on 07/07/2024- negative #AIDS/HIV Patient has Stage 4 HIV, AIDS-defining illness with opportunistic infection. 06/07/2024 Bronchoalveolar lavage cytology shows Pneumocystis jirovecii. Also other fungi, possibly Kassandra. Kassandra is most likely a contaminant. Blood [id number] also positive. 06/08/2024 HIV quant 5.66 million copies. HIV 1 positive confirmed. 06/09/2024 Patient's decision maker, Francesca, was informed of diagnosis due to critical state of patient. Absolute CD4 count 87 and 22% on 06/02. History/risk factors: History of injection anabolic androgenic steroid and testosterone use, possible unclean needles. History of incarceration (unknown time). Tattoos received as a teenager. Has 1 female sexual partner last 5 years, denies others. -Continue HAART: emtricitabine / tenofovir (Truvada) and raltegravir initiated 06/09/24 -Patient is not aware of his diagnosis as he has been intubated and sedated before results returned. Will require complete education and counseling on the disease if his mental status and clinical condition improves. #IRIS The patient has been on HAART for around 4 weeks and given the presentation of ARDS, with negative BC, positive for fever, and on appropriate antibiotics, still having respiratory distress with breathy stacking there is a high possibility of IRIS -Continue on methylprednisone 40mg IV BID until 07/08/2024, Daily from 07/09-07/13 -On oral methylpred 20mg daily 07/14- MSK #Elevated creatine kinase -Down trended SKIN #Lower lip abrasion #Right forearm blisters -Improving -Monitor closely Dispo: Patient was admitted to ICU unit for the management of acute hypoxic respiratory failure 2/2 PCP pneumonia in the 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 DVT prophylaxis: On enoxaparin 75mg BID for treatment of right upper extremity DVT GI prophylaxis: Pantoprazole 40 mg IV qday Diet: Tube feeds Ackerman: No, condom cath Lines: Peripheral IV, removed rt femoral central line on 06/28/24 Antibiotics: Bactrim CODE STATUS: DNR/DNI The patient's management plan was discussed with my attending physician MD Jeff Hamilton MD, PGY2 Attending Provider Attestation/Addendum Patient seen and examined with above resident, Jeff Pacheco MD. I agree with the findings, assessment, and plan of care as documented except for any differences below. Patient completed taper of phenobarbital and will start working on clonazepam above. Patient will continue to be on methadone and gabapentin for adequate pain control and prevention of opiate withdrawal. Patient's gas exchange remains stable along with ventilator requirements. Patient off of all antibiotics at this point apart from Bactrim for prophylaxis. Patient remains on appropriate anticoagulation at this time for known history of DVT during this hospital course. Patient underwent EEG today with preliminary read suggesting some diffuse slowing of the patient has not been off all sedation for an extended period of time. His mental status continues to slowly rise but he is yet to open his eyes consistently follow commands. Patient remains on appropriate heart therapy for his HIV, followed by infectious disease. Neurology did also assessed the patient today and agreed with limited neurologic recovery potentially though will await further tapering off of sedation regimen. Remained stable with use of pressure suppor and SIMV for rest and exercise as we plan to further wean him from mechanical ventilation. Patient's renal function remained stable adequate control of volume status and electrolyte levels. Plan for discharge to LTAC in the coming days based on his continued response to weaning from sedation perspective. Patient tolerating tube feeds though continues to mess malnourished at this point given severe catabolic state from prolonged critical illness. Patient's family updated at bedside. Total critical care time: I personally spent 35 minutes for review of physiologic parameters, directing plan of care throughout the day, coordination of care: Subspecialists, and counseling patient's family at bedside. This is exclusive of time spent teaching housestaff or performing any separate billable procedures. Patient continues require critical care services for acute hypoxic respiratory failure secondary to PCP pneumonia with development of ARDS, likely fibrotic phase. Patient remains at high risk for increased morbidity and mortality given potential severe neurologic injury with presence of ischemic infarct bilaterally. Patient wants to continue close monitoring and management only available in the intensive care unit.
--- NOTE | 2024-07-15 14:58 | PD.TNEEG ---
EEG Report EEG Interpretation [facility] Routine EEG Report Video Performed: Not performed Demographics:Patient Name:???Tirso Owen Date of :???1985 Identification Number:??? Study Times: Study Start Time:???07/15/2024 08:48:00 Study End Time:???07/15/2024 09:09:00 Duration:???21?minutes Indication(s):anoxic brain injury Technical Summary: This EEG was performed utilizing standard International 10-20 System of electrode placement. One channel electrocardiogram was monitored. Data were obtained and interpreted utilizing referential montage recording, with reformatting to longitudinal, transverse bipolar, and referential montages as necessary for interpretation. State(s): ?Coma (not medically induced) EKG:?Single Lead EKG was Regular Activation Procedures: Photic Stimulation:?Performed : No Photic Driving EEG Description: BACKGROUND ACTIVITY: ?Posterior background activity: The posterior dominant background activity was absent. ?Beta: Beta activity was symmetric ?Sleep: Sleep stages were not recorded. ?Slowing: Continuous generalized 2-4 hz slow wave activity ? ?INTERICTAL EPILEPTIFORM ACTIVITY: ?none ? ?ICTAL ACTIVITY: none ? Impression: ?This routine EEG monitoring is abnormal due to1 ?1) Absent PDR ?2) Continuous generalized slow wave activity. ?These finding are suggestive of a severe encephalopathy of unclear etiology. No epileptiform discharges, or seizures were captured during this recording. ? Dr Ricarda Tony [facility] For Inpatient follow-up with [facility] physician please call [facility] at . As we are not an outpatient service for any post hospital discharge needs please contact the hospital for assistance. If you have any questions for the [facility] physicians or need to reconsult for clinical or diagnostic changes please contact us via [facility] at .
--- NOTE | 2024-07-15 16:06 | PC.SS ---
LTAC referral submitted on [facility]. Family's preferred LTAC location is [facility].
[2024-07-15] MEDS: [UNRECOGNIZED DRUG - REMARK] 234 MG IV (17:36)
[2024-07-15] MEDS: ATORVASTATIN CALCIUM 20 MG TABLET 80 MG PO (22:00)
[2024-07-15] MEDS: METHADONE HCL 10 MG TABLET 15 MG GT (22:06)
[2024-07-16] VITALS (103 sets, daily range): BP systolic 91–173; BP diastolic 54–95; PULSE 109–119; RESP 0–37; TEMP 36.2–37.4; O2SAT 91–98; BMI 25.2
[2024-07-16 04:43] LABS: Base Excess 20 (-3-3); HCO3 50 mEq/L (20-26); Inspired Oxygen, FIO2 70 %; O2 Saturation 93 % (91-98); PCO2 115 mmHg (32.0-48.0); PO2 70 mmHg (83-108); pH, Arterial 7.25 (7.35-7.45)
[2024-07-16 04:45] LABS: Allen Test Performed/OK; Puncture Site Left Radial
[2024-07-16] MEDS: METHADONE HCL 10 MG TABLET 15 MG GT ×3 (06:11→21:05)
[2024-07-16] MEDS: Artificial Tears 225 DROP/15 ML BTL BOTH EYES ×4 (06:12→21:07)
[2024-07-16 06:48] LABS: Alanine Aminotransferase 120 U/L (10-49); Albumin, Serum 3.2 gm/dL (3.5-5.0); Alkaline Phosphatase 366 U/L (46-116); Anion Gap 8 (7-16); Aspartate Amino Transferase 118 U/L (0-34); BUN/Creatinine Ratio 40 Ratio (12-20); Bilirubin,Total 0.2 mg/dL (0.3-1.2); Blood Urea Nitrogen 48 mg/dL (9-23); Calcium 8.5 mg/dL (8.3-10.6); Calcium (Corrected) 9.1 mg/dL (8.5-10.1); Carbon Dioxide > 40.0 mMol/L (20.0-31.0); Chloride 90 mMol/L (98-107); Creatinine (Component) 1.2 mg/dL (0.6-1.3); Estimated Creatinine Clearance 75.3 mL/min (>60); Globulin 3.1 gm/dL (2.3-3.5); Glucose 109 mg/dL (74-106); Magnesium 2.5 mg/dL (1.6-2.6); Osmolality,Calculated 289 (275-295); Phosphorous 5.7 mg/dL (2.4-5.1); Potassium 5.4 mMol/L (3.4-5.1); Sodium 138 mMol/L (136-145); Total Protein 6.3 gm/dL (5.7-8.2); eGFR > 60 See Note
[2024-07-16] MEDS: TRIMETHOPRIM 160 MG/SULFA 800 MG SUSP 20 ML UDC PO (08:29)
[2024-07-16] MEDS: RALTEGRAVIR 400 MG TABLET NG ×2 (08:30→21:09)
[2024-07-16] MEDS: methylPREDNISolone 4 MG TABLET 20 MG PO (08:30)
[2024-07-16] MEDS: ENOXAPARIN SOD INJ 80 MG/0.8 ML SYRINGE SC ×2 (08:33→21:06)
[2024-07-16] MEDS: Ferrous Sulfate 300 MG/5 ML UDC GT (08:33)
[2024-07-16] MEDS: PANTOPRAZOLE INJ 40 MG VIAL IV (08:34)
[2024-07-16] MEDS: clonazePAM 0.5 MG TABLET 0.25 MG PO (08:34)
[2024-07-16] MEDS: PHENOBARBITAL ELIX 20 MG/5 ML 30 MG GT (08:41)
[2024-07-16] MEDS: ASPIRIN 81 MG CHEW PO (08:42)
[2024-07-16] MEDS: GABAPENTIN 100 MG CAPSULE 400 MG GT ×2 (08:42→21:05)
[2024-07-16] MEDS: EMTRICITABINE 200 MG/TENOFOVIR 300 MG TAB (NON-FORM) 1 TAB PO (08:44)
[2024-07-16 09:37] LABS: Base Excess 20 (-3-3); HCO3 49 mEq/L (20-26); PCO2 95 mmHg (32.0-48.0); pH, Arterial 7.32 (7.35-7.45)
[2024-07-16 09:45] LABS: Allen Test Performed/OK; O2 Saturation 92 % (91-98); Puncture Site Left Radial
[2024-07-16 09:46] LABS: Inspired Oxygen, FIO2 70 %
[2024-07-16 09:47] LABS: PO2 59 mmHg (83-108)
[2024-07-16] MEDS: FUROSEMIDE INJ 10 MG/ML 4ML VIAL 40 MG IVP (10:47)
[2024-07-16 10:57] LABS: Creatine Kinase 81 U/L (34-171)
[2024-07-16] MEDS: CALCIUM CARBONATE 600 MG TABLET GT (14:03)
--- NOTE | 2024-07-16 15:37 | PD.RESPRO ---
Documentation for date of: 07/16/24 Subjective Subjective Interval history: 07/12/2024: The patient was evaluated and examined at the bedside this morning. He was saturating 95 to 96% on FiO2 65%, plateau pressure of 22, tidal volume 500 cc, RR 28-30. ABG done was significant for pH of 7.25, pCO2 106, bicarb 46. Ventilator mode was changed to pressure support of 25, and FiO2 decreased to 60%. He was tachycardic in 110s. Patient still unresponsive to painful stimulus. We will decrease phenobarbital 90 Mg to 60 Mg 3 times daily, and Seroquel 50 Mg twice daily to Seroquel 50 Mg at bedtime, and continue with methadone 10 Mg 3 times daily and gabapentin 200 Mg twice daily. We will slowly taper down his oral sedatives, and try SAT in couple of days. 07/13/24: The patient was evaluated and examined at the bedside this morning. Overnight, the patient was having severe tremors, and was started on Precedex drip, initially tremors resolved but later required midazolam 2 mg IV x 1 followed by midazolam 4 mg IV x 1 which resolved his tremors. He is still tachycardic in 110s. We will continue with the volume control setting at this point and start him on SIMV with TV 500cc, PS 15, PEEP 10 and RR 10 in the evening. We will continue with phenobarbital 60 Mg 3 times daily, decreased clonazepam to 0.5 Mg 3 times daily, continue with Precedex drip, and increased the dose of gabapentin to 400 Mg twice daily. We will do lab work every 72 hours. The plan is to try with SAT in a couple of days. 07/14/24: The patient was evaluated and examined at the bedside this morning. Patient did not had any overnight events. We have discontinued all IV sedatives, and we decreased the frequency of doses of phenobarbital 60 Mg twice daily, clonazepam 0.5 Mg twice daily, and will continue gabapentin 400 Mg twice daily along with methadone 20 Mg 3 times daily. Lung compliance seems to be improving. His white count was 15.1, ABG done revealed pCO2 83, bicarb 54 with phosphorus 2.3. Phosphorus and magnesium was repleted. Liver enzymes trending down. We ordered EEG to evaluate for any further anoxic brain injury. We will try to get SAT in a couple of days. 07/15/2024: The patient was evaluated and examined at the bedside this morning. No acute overnight events. We gave 1 dose of phenobarbital 30 Mg and stopped it. Clonazepam dose was decreased down to 0.25 Mg twice daily, we will continue with gabapentin 400 Mg twice daily and methadone was decreased to 15 Mg 3 times daily. Lung compliance seems to be improving, white count trending down, hemoglobin was 6.9 and 1 unit PRBC was ordered. VBG revealed pCO2 of 79, pO2 40 and pH 7.39. Mild elevation in liver enzymes, we will continue to monitor. EEG was significant for diffuse slowing of waveforms, but official reading pending. 07/16/2024: Patient seen and examined at bedside. No overnight events. Patient responsive to painful stimuli, opens eyes. Patient has decreasing urine output, Lasix 40 ordered. Kayexalate given for potassium 5.4. Patietn on pressure support overnight, morning ABG showed pH 7.25, pCO2 115, pO2 70. Changed to SIVM, repeat ABG showed pH 7.32, pCO2 95, pO2 59. Exam Vital Signs Temp Pulse Resp BP Pulse Ox O2 Del Method O2 Flow Rate 97.1 F 109 H 33 H 133/80 H 98 Mechanical Ventilation 70 07/16/24 12:00 07/16/24 15:00 07/16/24 02:00 07/16/24 15:00 07/16/24 15:00 07/15/24 16:00 07/15/24 17:34 FiO2 60 07/16/24 14:51 Narrative Exam GEN: Critically ill, not acutely distressed, sedated and mechanically ventilated. Neuro: Deferred due to sedation. HEENT: NCAT, tracheostomy tube on appropriate position. Pupils sluggish but reactive. CVS: Mildly tachycardic, no M/R/G. No JVD Respi: Mechanically ventilated, b/l breath sounds heard, significant rhonchi in all lung rosas ABD: Soft, no grimace to palpation, bowel sounds present in all 4 quadrants, PEG tube in appropriate place Skin: warm, dry and intact. Extremities: Pulses 2+ in all extremities, bilateral upper extremity 2+ edema, ruptured vesicles 1-2 cm on the rt forearm surface that have been healing. Objective Labs 07/22/24 09:31 07/22/24 09:31 Labs: Laboratory Results - last 24 hr 07/15/24 07/16/24 07/16/24 08:33 04:35 06:02 Puncture Site Left Radial ABG pH 7.25 L D ABG pCO2 115 H* D ABG pO2 70 L ABG HCO3 50 H ABG O2 Saturation 93 ABG Base Excess 20 H FiO2 70 Sodium 138 Potassium 5.4 H D Chloride 90 L Carbon Dioxide > 40.0 H Anion Gap 8 BUN 48 H Creatinine 1.2 D Estim Creat Clear Calc 75.3 eGFR > 60 BUN/Creatinine Ratio 40 H Glucose 109 H Calculated Osmolality 289 Calcium 8.5 Corrected Calcium 9.1 Phosphorus 5.7 H Magnesium 2.5 Total Bilirubin 0.2 L AST 118 H ALT 120 H Alkaline Phosphatase 366 H Total Creatine Kinase 81 D Total Protein 6.3 Albumin 3.2 L Globulin 3.1 Albumin/Globulin Ratio 1.0 L Crossmatch See Detail 07/16/24 09:20 Puncture Site Left Radial ABG pH 7.32 L ABG pCO2 95 H* D ABG pO2 59 L* ABG HCO3 49 H ABG O2 Saturation 92 ABG Base Excess 20 H FiO2 70 Sodium Potassium Chloride Carbon Dioxide Anion Gap BUN Creatinine Estim Creat Clear Calc eGFR BUN/Creatinine Ratio Glucose Calculated Osmolality Calcium Corrected Calcium Phosphorus Magnesium Total Bilirubin AST ALT Alkaline Phosphatase Total Creatine Kinase Total Protein Albumin Globulin Albumin/Globulin Ratio Crossmatch ABG Interpretation ABG results: 05/27/24 05/29/24 05/29/24 23:37 10:44 22:08 ABG pH 7.51 H 7.50 H 7.48 H ABG pCO2 28 L 32 32 ABG pO2 75 L 79 L 145 H D ABG HCO3 23 25 24 ABG O2 Saturation 96 95 98 ABG Base Excess 0 2 1 VBG pH VBG pCO2 VBG pO2 VBG Base Excess 05/30/24 05/31/24 06/04/24 08:45 04:54 02:10 ABG pH 7.47 H 7.45 7.45 ABG pCO2 35 38 36 ABG pO2 86 D 82 L 139 H ABG HCO3 26 26 25 ABG O2 Saturation 97 96 98 ABG Base Excess 2 2 1 VBG pH VBG pCO2 VBG pO2 VBG Base Excess 06/04/24 06/05/24 06/05/24 18:16 11:36 12:59 ABG pH 7.44 7.11 L* D 7.20 L ABG pCO2 36 94 H* D 68 H D ABG pO2 80 L D 150 H D 121 H D ABG HCO3 24 30 H 26 ABG O2 Saturation 94 97 97 ABG Base Excess 0 -2 -3 VBG pH VBG pCO2 VBG pO2 VBG Base Excess 06/05/24 06/06/24 06/06/24 19:25 04:13 15:27 ABG pH 7.22 L 7.27 L 7.30 L ABG pCO2 64 H 57 H 60 H ABG pO2 122 H 153 H D 74 L D ABG HCO3 26 26 29 H ABG O2 Saturation 97 99 H 92 ABG Base Excess -3 -2 2 VBG pH VBG pCO2 VBG pO2 VBG Base Excess 06/07/24 06/07/24 06/08/24 03:55 09:59 04:20 ABG pH 7.41 D 7.43 7.45 ABG pCO2 56 H 55 H 50 H ABG pO2 293 H D 78 L D 75 L ABG HCO3 36 H 37 H 35 H ABG O2 Saturation 99 H 95 94 ABG Base Excess 10 H 11 H 10 H VBG pH VBG pCO2 VBG pO2 VBG Base Excess 06/08/24 06/08/24 06/08/24 11:05 11:50 13:18 ABG pH 7.17 L* D 7.10 L* 7.15 L* ABG pCO2 95 H* D 115 H* D 88 H* D ABG pO2 89 75 L 72 L ABG HCO3 34 H 36 H 31 H ABG O2 Saturation 92 84 L 85 L ABG Base Excess 3 4 H 0 VBG pH VBG pCO2 VBG pO2 VBG Base Excess 06/08/24 06/09/24 06/09/24 17:02 01:33 03:15 ABG pH 7.18 L* 7.22 L 7.27 L ABG pCO2 50 H D 91 H* D 82 H* ABG pO2 82 L 105 D 86 ABG HCO3 19 L 37 H 38 H ABG O2 Saturation 93 97 95 ABG Base Excess -9 L 7 H 9 H VBG pH VBG pCO2 VBG pO2 VBG Base Excess 06/09/24 06/09/24 06/10/24 05:08 12:52 04:40 ABG pH 7.31 L 7.33 L 7.30 L ABG pCO2 75 H* 57 H D 78 H* D ABG pO2 97 158 H D 65 L D ABG HCO3 38 H 30 H 38 H ABG O2 Saturation 97 99 H 90 L ABG Base Excess 10 H 3 9 H VBG pH VBG pCO2 VBG pO2 VBG Base Excess 06/10/24 06/11/24 06/12/24 09:40 04:19 04:15 ABG pH 7.27 L 7.35 7.48 H D ABG pCO2 88 H* D 86 H* 63 H D ABG pO2 65 L 70 L 76 L ABG HCO3 40 H 48 H 47 H ABG O2 Saturation 89 L 93 95 ABG Base Excess 10 H 19 H 21 H VBG pH VBG pCO2 VBG pO2 VBG Base Excess 06/13/24 06/14/24 06/15/24 07:22 04:32 03:45 ABG pH 7.46 H 7.48 H 7.46 H ABG pCO2 56 H 40 D 37 ABG pO2 80 L 64 L 71 L ABG HCO3 39 H 30 H 27 H ABG O2 Saturation 95 92 94 ABG Base Excess 13 H 6 H 3 VBG pH VBG pCO2 VBG pO2 VBG Base Excess 06/15/24 06/15/24 06/15/24 10:17 12:20 14:20 ABG pH 7.01 L* D 7.00 L* 7.03 L* ABG pCO2 122 H* D 130 H* 125 H* ABG pO2 91 D 88 82 L ABG HCO3 31 H 32 H 33 H ABG O2 Saturation 88 L 88 L 87 L ABG Base Excess -3 -2 -1 VBG pH VBG pCO2 VBG pO2 VBG Base Excess 06/15/24 06/15/24 06/16/24 15:55 20:39 00:35 ABG pH 7.03 L* 7.08 L* 7.10 L* ABG pCO2 121 H* 116 H* 118 H* ABG pO2 99 117 H 102 ABG HCO3 32 H 34 H 37 H ABG O2 Saturation 93 97 96 ABG Base Excess -1 2 4 H VBG pH VBG pCO2 VBG pO2 VBG Base Excess 06/16/24 06/16/24 06/17/24 04:45 08:55 05:06 ABG pH 7.17 L* 7.28 L D 7.33 L ABG pCO2 112 H* 88 H* D 96 H* ABG pO2 155 H D 98 D 126 H D ABG HCO3 41 H 41 H 50 H ABG O2 Saturation 99 H 98 99 H ABG Base Excess 9 H 12 H 21 H VBG pH VBG pCO2 VBG pO2 VBG Base Excess 06/17/24 06/17/24 06/18/24 10:58 13:55 04:16 ABG pH 7.29 L 7.29 L 7.33 L ABG pCO2 106 H* D 106 H* 86 H* D ABG pO2 58 L* D 61 L 77 L ABG HCO3 51 H 51 H 45 H ABG O2 Saturation 87 L 88 L 95 ABG Base Excess 21 H 21 H 17 H VBG pH VBG pCO2 VBG pO2 VBG Base Excess 06/19/24 06/20/24 06/21/24 04:18 04:49 04:06 ABG pH 7.42 7.36 7.44 ABG pCO2 63 H D 74 H* D 61 H D ABG pO2 66 L 55 L* 202 H D ABG HCO3 41 H 42 H 42 H ABG O2 Saturation 93 87 L 100 H ABG Base Excess 15 H 14 H 16 H VBG pH VBG pCO2 VBG pO2 VBG Base Excess 06/22/24 06/23/24 06/24/24 04:18 04:29 04:25 ABG pH 7.45 7.46 H 7.29 L D ABG pCO2 57 H 53 H 80 H* D ABG pO2 60 L D 99 D 88 ABG HCO3 40 H 38 H 38 H ABG O2 Saturation 91 99 H 96 ABG Base Excess 14 H 13 H 9 H VBG pH VBG pCO2 VBG pO2 VBG Base Excess 06/24/24 06/25/24 06/25/24 08:50 05:13 11:02 ABG pH 7.40 D 7.46 H Cancelled ABG pCO2 61 H D 53 H Cancelled ABG pO2 110 H D 66 L D Cancelled ABG HCO3 38 H 38 H Cancelled ABG O2 Saturation 99 H 94 Cancelled ABG Base Excess 12 H 13 H Cancelled VBG pH VBG pCO2 VBG pO2 VBG Base Excess 06/25/24 06/26/24 06/26/24 15:53 04:13 11:40 ABG pH 7.39 7.41 7.46 H ABG pCO2 53 H 48 43 ABG pO2 55 L* 58 L* 58 L* ABG HCO3 32 H 30 H 31 H ABG O2 Saturation 86 L 89 L 92 ABG Base Excess 6 H 5 H 6 H VBG pH VBG pCO2 VBG pO2 VBG Base Excess 06/27/24 06/28/24 06/28/24 04:17 04:24 06:22 ABG pH 7.48 H 7.27 L D 7.22 L ABG pCO2 39 72 H* D 83 H* D ABG pO2 49 L* 71 L D 82 L ABG HCO3 29 H 33 H 34 H ABG O2 Saturation 87 L 93 95 ABG Base Excess 5 H 5 H 4 H VBG pH VBG pCO2 VBG pO2 VBG Base Excess 06/28/24 06/29/24 06/30/24 10:18 04:21 07:57 ABG pH 7.32 L D 7.41 7.41 ABG pCO2 64 H D 63 H 62 H ABG pO2 76 L 81 L 59 L* D ABG HCO3 33 H 40 H 40 H ABG O2 Saturation 95 97 88 L ABG Base Excess 6 H 14 H 13 H VBG pH VBG pCO2 VBG pO2 VBG Base Excess 07/02/24 07/03/24 07/04/24 04:05 04:45 04:11 ABG pH 7.46 H 7.43 7.38 ABG pCO2 53 H 58 H 67 H ABG pO2 77 L 100 D 73 L D ABG HCO3 38 H 39 H 40 H ABG O2 Saturation 96 98 94 ABG Base Excess 12 H 13 H 13 H VBG pH VBG pCO2 VBG pO2 VBG Base Excess 07/05/24 07/06/24 07/09/24 04:40 04:08 04:53 ABG pH 7.30 L 7.42 D 7.26 L ABG pCO2 87 H* D 67 H D 94 H* ABG pO2 132 H D 64 L D 149 H ABG HCO3 43 H 43 H 42 H ABG O2 Saturation 99 H 92 100 H ABG Base Excess 14 H 17 H 12 H VBG pH VBG pCO2 VBG pO2 VBG Base Excess 07/11/24 07/12/24 07/14/24 11:34 04:49 04:45 ABG pH 7.25 L 7.36 D ABG pCO2 106 H* D 94 H* D ABG pO2 67 L D 59 L* ABG HCO3 46 H 53 H ABG O2 Saturation 91 90 L ABG Base Excess 16 H 24 H VBG pH 7.38 VBG pCO2 74 H VBG pO2 148 H VBG Base Excess 16 H 07/14/24 07/15/24 07/16/24 09:21 10:24 04:35 ABG pH 7.42 7.25 L D ABG pCO2 83 H* D 115 H* D ABG pO2 61 L 70 L ABG HCO3 54 H 50 H ABG O2 Saturation 92 93 ABG Base Excess 27 H 20 H VBG pH 7.39 VBG pCO2 79 H VBG pO2 40 VBG Base Excess 21 H 07/16/24 09:20 ABG pH 7.32 L ABG pCO2 95 H* D ABG pO2 59 L* ABG HCO3 49 H ABG O2 Saturation 92 ABG Base Excess 20 H VBG pH VBG pCO2 VBG pO2 VBG Base Excess Quality Measures Quality Measures sepsis Current suspected stage: sepsis Possible source: pulmonary, GI tract/intra-abdominal, genitourinary and skin/soft tissue Blood cultures ordered: yes Antibiotic ordered: Yes Assessment & Plan Assessment Current Active Medications: Generic Name Dose Route Start Last Admin Trade Name Freq PRN Reason Stop Dose Admin Acetaminophen 650 mg 06/26/24 15:16 07/15/24 00:37 Acetaminophen Munira 325 Mg/10 Ml Udc GT 07/26/24 15:15 650 mg Q4HR PRN Administration Pain Or Fever > 100.3 Artificial Tears 1 drop 06/18/24 12:00 07/16/24 12:03 Artificial Tears 225 Drop/15 Ml Btl BOTH EYES 07/18/24 11:59 1 drop QID JUAN JOSE Administration Aspirin 81 mg 07/11/24 09:30 07/16/24 08:42 Aspirin 81 Mg Chew PO 08/08/24 10:59 81 mg QDAY JUAN JOSE Administration Atorvastatin Calcium 80 mg 07/10/24 21:00 07/15/24 22:00 Atorvastatin Calcium 20 Mg Tablet PO 08/09/24 20:59 80 mg HS JUAN JOSE Administration Calcium Carbonate 600 mg 06/28/24 13:00 07/16/24 14:03 Calcium Carbonate 600 Mg Tablet GT 07/28/24 12:59 600 mg QDAY@1300 JUAN JOSE Administration Clonazepam 0.25 mg 07/15/24 09:00 07/16/24 08:34 Clonazepam 0.5 Mg Tablet PO 07/20/24 08:59 0.25 mg BID JUAN JOSE Administration Docusate Sodium 100 mg 06/25/24 09:13 Docusate Sod Liqd 100 Mg/10 Ml Udc PO 07/22/24 08:59 BID PRN Constipation Protocol Emtricitabine/Tenofovir 1 tab 07/06/24 11:30 07/16/24 08:44 Emtricitabine 200 Mg/Tenofovir 300 Mg Tab (Non-Form) PO 08/19/24 14:33 1 tab QDAY JUAN JOSE Administration Enoxaparin Sodium 80 mg 07/15/24 21:00 07/16/24 08:33 Enoxaparin Sod Inj 80 Mg/0.8 Ml Syringe SC 10/11/24 08:00 80 mg BID JUAN JOSE Administration Ferrous Sulfate 300 mg 07/02/24 10:00 07/16/24 08:33 Ferrous Sulfate 300 Mg/5 Ml Udc GT 07/23/24 09:59 300 mg QDAY JUAN JOSE Administration Gabapentin 400 mg 07/13/24 21:00 07/16/24 08:42 Gabapentin 100 Mg Capsule GT 08/12/24 20:59 400 mg BID JUAN JOSE Administration Norepinephrine/Dextrose 8 mg in 250 mls @ 6.319 mls/hr 06/30/24 04:17 07/09/24 11:30 Levophed In D5w 8mg/250ml IV 07/30/24 04:16 0 mcg/kg/min .Q24H PRN 0 mls/hr PER PROTOCOL Titration Protocol 0.05 MCG/KG/MIN Dexmedetomidine/Sodium Chloride 200 mcg in 50 mls @ 4.01 mls/hr 07/13/24 04:40 07/13/24 11:42 Precedex Ivpb IV 08/12/24 04:29 0 mcg/kg/hr .[id number] PRN 0 mls/hr Per PROTOCOL Titration Protocol 0.2 MCG/KG/HR Methadone HCl 15 mg 07/15/24 22:00 07/16/24 14:05 Methadone Hcl 10 Mg Tablet GT 07/20/24 21:59 15 mg Q8HR JUAN JOSE Administration Methylprednisolone 20 mg 07/14/24 09:00 07/16/24 08:30 Methylprednisolone 4 Mg Tablet PO 08/13/24 08:59 20 mg QDAY JUAN JOSE Administration Pantoprazole Sodium 40 mg 07/07/24 09:32 07/16/24 08:34 Pantoprazole Inj 40 Mg Vial IV 08/06/24 09:31 40 mg QDAY JUAN JOSE Administration Phenobarbital 30 mg 07/16/24 09:00 07/16/24 08:41 Phenobarbital Elix 20 Mg/5 Ml Udc GT 07/30/24 08:59 30 mg QDAY JUAN JOSE Administration Protocol Raltegravir 400 mg 07/06/24 11:30 07/16/24 08:30 Raltegravir 400 Mg Tablet NG 08/19/24 14:33 400 mg BID JUAN JOSE Administration Trimethoprim/Sulfamethoxazole 20 ml 07/15/24 09:00 07/16/24 08:29 Trimethoprim 160 Mg/Sulfa 800 Mg Susp 20 Ml Udc PO 06/22/25 12:00 20 ml QDAY JUAN JOSE Administration Plan 39-year-old male patient with no PMHx who initially presented to [facility] on 05/27/2024 with a chief complaint of shortness of breath and cough, with associated chills, body aches, generalized weakness, fever, and night sweats beginning weeks prior but progressively worsening over a few days is currently being treated for acute hypoxic respiratory failure secondary to PCP pneumonia that was complicated by ventilator associated pneumonia. Patient is currently on tracheostomy tube and mechanically ventilated. 07/15/2024: The patient was evaluated and examined at the bedside this morning. No acute overnight events. We gave 1 dose of phenobarbital 30 Mg and stopped it. Clonazepam dose was decreased down to 0.25 Mg twice daily, we will continue with gabapentin 400 Mg twice daily and methadone was decreased to 15 Mg 3 times daily. Lung compliance seems to be improving, white count trending down, hemoglobin was 6.9 and 1 unit PRBC was ordered. VBG revealed pCO2 of 79, pO2 40 and pH 7.39. Mild elevation in liver enzymes, we will continue to monitor. EEG was significant for diffuse slowing of waveforms, but official reading pending. NEURO Patient is sedated and mechanically ventilated through tracheostomy tube. 06/05/2024 Patient was intubated, sedated, and paralyzed for ARDS. -We gave 1 dose of phenobarbital 30 Mg and stopped it. Clonazepam dose was decreased down to 0.25 Mg twice daily, we will continue with gabapentin 400 Mg twice daily and methadone was decreased to 15 Mg 3 times daily #Rt Parietal ischemic Stroke MRI on 07/08 Large area of restricted diffusion in the left frontal parietal white matter and small foci in the right parietal white matter most consistent with acute infarction -On aspirin 81mg daily and atorvastatin 80mg daily at night. #Fever, resolved #Withdrawal syndrome, stable Multiple cultures has been negative -Repeat influenza and COVID test on 07/04 negative -Repeat blood, urine and sputum culture are negative -Treat underlying condition -Tylenol as needed CARDIO #Right subclavian and axillary vein DVT. -Doppler US right upper extremity 06/17/24: revealed RUE DVT -On Heparin Drip 06/17-07/09, On Enoxaparin 75mg BID 07/11- #Sinus tachycardia Tachycardia most likely secondary to acute respiratory distress syndrome contributed by withdrawal while tapering the dose of IV sedatives -Continue to treat underlying cause #Shock, resolved Most likely 2/2 sedation. BC has been negative and on appropriate antibiotics Patient presented with septic shock secondary to severe extensive bilateral pneumonia. After resolution of initial septic shock, patient developed new hypotension, tachycardia, tachypnea, fevers indicated of septic shock. -Pressor support as needed -Linezolid (started 06/27-07/04) -Meropenem (started 06/27-07/04) -Urine (06/27) showed resistant staph epi -Blood (06/27) showed resistant Staphylococcus haemolyticus -repeat blood cultures and urine cultures negative -taper down sedatives as tolerated PULM #Chronic hypoxic respiratory failure 2/2 # Acute respiratory distress syndrome in the setting of post PCP pneumonia state Secondary to #Bilateral pneumocystis jirovecii pneumonia, resolved #Healthcare associated pneumonia, resolved, resolved #Ventilator associated pneumonia, resolved #S/P Tracheostomy #Pneumomediastinum, resolved -ABG done on 07/14/24 showed improvement. On vent support -Titrate down FiO2 as tolerated GI GI prophylaxis: IV pantoprazole 40 Mg daily #Elevated LFTs 2/2 HIV DDx: adverse affect of drugs, we had discontinued oxycodone previously, and phenobarbitol Liver enzymes started trending down after discontinuing oxycodone and phenobarbitol. liver US 05/30/2024 showed normal gallbladder and hepatomegaly without lesions or evidence of obstructions. Hep panel negative. LFTs downtrending Plan: -Continue monitoring #Hypertriglyceridemia, down trending secondary to propofol use, -Discontinued propofol NEPHRO #WILL Patient has WILL as seen by increased creatinine from 0.7 to 1.2 in <24 hours. Patient had decreased urinary output. Possibly due to Bactrim. -Lasix 40mh IV x1 -Monitor UOP and renal panel -Consider alternative to Bactrim #Central diabetes insipidus, resolved #Hypophosphatemia, repleted #WILL, resolved #Hyperkalemia On 07/12/24 K 5.8, Received 30g kayexalate #Mild hyponatremia Secondary to SIADH due to acute hypoxic respiratory failure leading to pulmonary distress -Continue to monitor #Hyperphosphetemia, stable -on sevelamir 800mg TID and calcium carbonate 600mg daily #NAGMA #Primary Respiratory acidosis compensated by metabolic alkalosis Secondary to increased work of breathing and increased RR 2/2 chronic hypoxic respiratory failure and chronic respiratory distress syndrome in the setting of tapering down of IV sedatives -ABGs 07/12 pH of 7.25, pCO2 106, bicarb 46 -We will treat the underlying cause respiratory acidosis HEME #Leukocytosis Likely reactive as we are tapering down sedatives and is still on steroid #Microcytic anemia 2/2 STEPHY and Inflammatory anemia Stable, has not required any transfusions this admission thus far. Clinically no evidence of bleeding. Iron panel shows iron 17, TIBC 262, iron saturation 6, unsaturated iron binding 245. Peripheral blood film confirms microcytic hypochromic anemia with target cells. Also daily lab draws contributing. Patient required x1 PRBC for Hg 6.9. Plan: -Started on oral ferrous sulfate 300 Mg daily -Feraheme 510mg was given x1 on 07/15/24 -Monitor H&H. Transfusing for Hgb <7 #Thrombocytosis, resolved Likely reactive in the setting of withdrawal syndrome -Continue to monitor ENDO #Hypoglycemia, resolved ID #Bilateral pneumocystis pneumonia, resolved #Healthcare associated pneumonia, resolved #Ventilator associated pneumonia, resolved #PCP pneumonia prophylaxis Negative studies: Cocci IgM and IgG, Hepatitis panel, Syphilis, Legionella, H.flu, N.meningitidis, Strep B, Strep pneumoniae, COVID, RSV, Flu A & B. TB quantiferon GOLD-indeterminate, however 06/05 AFB negative, CMV IgM, cryptococcal antigen negative. G6PD levels came back normal for consideration of dapsone alternative to Bactrim if needed. Patient completed 5 day course of azithromycin, 16 days of Zosyn. See Pulm for timeline of antimicrobial coverage. On 06/27 patient developed new septic shock Plan: -Antibiotcs Bactrim for prevention of PCP pneumonia in the setting of CD4 count of 116 -Linezolid and meropenum restarted on 06/27/2024-07/04/24 -Urine ackerman port grew GPC, Staph epidermidis that is MDR, sensitive to linezolid. -Fungal cultures from BAL pending, follow-up on results -Blood cultures from 06/26/2024 and 06/27/2024, negative so far, cultures drawn on 06/29/2024 is pending -Follow up blood, sputum, and urine cultures were negative -Repeat blood, urine, sputum cultures were ordered on 07/07/2024- negative #AIDS/HIV Patient has Stage 4 HIV, AIDS-defining illness with opportunistic infection. 06/07/2024 Bronchoalveolar lavage cytology shows Pneumocystis jirovecii. Also other fungi, possibly Kassandra. Kassandra is most likely a contaminant. Blood [id number] also positive. 06/08/2024 HIV quant 5.66 million copies. HIV 1 positive confirmed. 06/09/2024 Patient's decision maker, Francesca, was informed of diagnosis due to critical state of patient. Absolute CD4 count 87 and 22% on 06/02. History/risk factors: History of injection anabolic androgenic steroid and testosterone use, possible unclean needles. History of incarceration (unknown time). Tattoos received as a teenager. Has 1 female sexual partner last 5 years, denies others. -Continue HAART: emtricitabine / tenofovir (Truvada) and raltegravir initiated 06/09/24 -Patient is not aware of his diagnosis as he has been intubated and sedated before results returned. Will require complete education and counseling on the disease if his mental status and clinical condition improves. -Bactrim 20ml PO daily for prophylaxis -consider alternative prophylactic regiments in setting of WILL #IRIS The patient has been on HAART for around 4 weeks and given the presentation of ARDS, with negative BC, positive for fever, and on appropriate antibiotics, still having respiratory distress with breathy stacking there is a high possibility of IRIS -Continue on methylprednisone 40mg IV BID until 07/08/2024, Daily from 07/09-07/13 -On oral methylpred 20mg daily 07/14- MSK #Elevated creatine kinase -Down trended SKIN #Lower lip abrasion #Right forearm blisters -Improving -Monitor closely Dispo: Patient was admitted to ICU unit for the management of acute hypoxic respiratory failure 2/2 PCP pneumonia in the 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 DVT prophylaxis: On enoxaparin 75mg BID for treatment of right upper extremity DVT GI prophylaxis: Pantoprazole 40 mg IV qday Diet: Tube feeds Ackerman: No, condom cath Lines: Peripheral IV, removed rt femoral central line on 06/28/24 Antibiotics: Bactrim CODE STATUS: DNR/DNI The patient's management plan was discussed with my attending physician MD Landon Hamilton MD PGY-1 Attending Provider Attestation/Addendum Patient seen and examined with above resident, Landon Tracey MD. I agree with the findings, assessment, and plan of care as documented except for any differences below. Patient continues to slowly improve from respiratory standpoint and mentation. Patient was taken off of phenobarbital and we will slowly wean off clonazepam in the coming days. Patient remained on methadone and gabapentin which we will work on afterwards. 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 EEG was done and on review by Dr Davalos of neurology there is diffuse slowing but this may of course be related to multiple sedating drugs more so than true irreversible neurologic damage. Patient' family is aware that his mentation may plateau at some point but they continue to be in agreement with pursuing long-term acute care as the patient is stabilized further. Will coordinate with case management based on ongoing response. Patient remains on Ortega therapy and Bactrim prophylaxis, ID is following. Steroids to be tapered for IRIS. Patient is on anticoagulation for underlying DVT. Aspirin and statin being used for known infarction though this may have been a true bleeding hypotensive/watershed infarcts more so than true ischemic events from vascular occlusion. Patient with adequate urine output and stable renal function, potassium remains initially on Kayexalate was given today. Tolerating tube feeds otherwise with bowel movements. Getting appropriately turned to prevent any skin tears. Total critical care time: I personally spent 35 minutes for review of physiologic parameters, directing plan of care throughout the day, coordination of care with other specialties, and counseling patient's family at bedside. This is exclusive of time spent teaching housestaff or performing any separate billable procedures. Patient continues to require critical care services for acute encephalopathy secondary to urinary and acute hypoxic respiratory failure in the setting of sepsis from PJP pneumonia complicated by recurrent episodes of ventilator associated pneumonia and ARDS. Patient remains at risk for increased morbidity and mortality warranting close monitoring and care only available in the intensive care unit.
[2024-07-16 16:48] LABS: Albumin, Serum 3.3 gm/dL (3.5-5.0); Anion Gap 9 (7-16); BUN/Creatinine Ratio 43 Ratio (12-20); Blood Urea Nitrogen 51 mg/dL (9-23); Calcium 8.5 mg/dL (8.3-10.6); Calcium (Corrected) 9.1 mg/dL (8.5-10.1); Carbon Dioxide > 40.0 mMol/L (20.0-31.0); Chloride 89 mMol/L (98-107); Creatinine (Component) 1.2 mg/dL (0.6-1.3); Estimated Creatinine Clearance 75.3 mL/min (>60); Glucose 100 mg/dL (74-106); Osmolality,Calculated 289 (275-295); Phosphorous 5.3 mg/dL (2.4-5.1); Potassium 5.7 mMol/L (3.4-5.1); Sodium 138 mMol/L (136-145); eGFR > 60 See Note
[2024-07-16] MEDS: SOD POLYSTYRENE SULFON SUSP 15 GM/60 ML BTL 30 GM PO ×2 (17:29→22:29)
[2024-07-16] MEDS: ATORVASTATIN CALCIUM 20 MG TABLET 80 MG PO (21:05)
[2024-07-16] MEDS: INSULIN HUM REGULAR 1 UNIT/0.01 ML (PER UNIT) 5 UNIT IV (22:29)
[2024-07-16] MEDS: DEXTROSE 50%-WATER INJ 50 ML SYRINGE IV (22:32)
[2024-07-17] VITALS (30 sets, daily range): BP systolic 128–183; BP diastolic 67–91; PULSE 102–120; RESP 21–38; TEMP 37.1–37.6; O2SAT 89–95; BMI 26.2
[2024-07-17 03:02] LABS: Potassium 4.4 mMol/L (3.4-5.1)
[2024-07-17 05:30] LABS: Basophils # (Auto) 0.1 Thou/mm3 (0.0-0.2); Basophils % (Auto) 1 % (0-2.5); Eosinophils # (Auto) 0.2 Thou/mm3 (0.0-0.5); Eosinophils % (Auto) 1 % (0-10); Hematocrit 25.5 % (41.0-53.0); Immature Granulocytes % (Auto) 2 % (0-0); Immature Granulocytes Auto 0.17 Thou/mm3 (0.00-0.00); Lymphocytes # (Auto) 0.9 Thou/mm3 (1.0-4.8); Lymphocytes % (Auto) 8 % (10-50); Mean Corpuscular Hemoglobin 26.2 pg (25.0-35.0); Mean Corpuscular Volume 90 fL (80-100); Monocytes # (Auto) 0.9 Thou/mm3 (0.0-0.8); Monocytes % (Auto) 8 % (0-12); Neutrophils # (Auto) 8.8 Thou/mm3 (1.8-7.7); Neutrophils % (Auto) 80 % (37-80); Nucleated Red Blood Cell # 0.07 Thou/mm3 (0.00-0.00); Nucleated Red Blood Cell % 1 /100 WBC (0); Platelet Count 255 Thou/mm3 (140-440); RDW Standard Deviation 76.5 fL (35.1-43.9); Red Blood Count 2.82 Miln/mm3 (4.50-5.90)
[2024-07-17] MEDS: METHADONE HCL 10 MG TABLET 15 MG GT (05:38)
[2024-07-17] MEDS: Artificial Tears 225 DROP/15 ML BTL BOTH EYES ×4 (05:38→21:40)
[2024-07-17 05:52] LABS: Alanine Aminotransferase 123 U/L (10-49); Albumin, Serum 3.2 gm/dL (3.5-5.0); Alkaline Phosphatase 382 U/L (46-116); Anion Gap 15 (7-16); Aspartate Amino Transferase 151 U/L (0-34); BUN/Creatinine Ratio 43 Ratio (12-20); Bilirubin,Total 0.2 mg/dL (0.3-1.2); Blood Urea Nitrogen 43 mg/dL (9-23); Calcium 8.7 mg/dL (8.3-10.6); Calcium (Corrected) 9.3 mg/dL (8.5-10.1); Carbon Dioxide > 40.0 mMol/L (20.0-31.0); Chloride 92 mMol/L (98-107); Estimated Creatinine Clearance 90.4 mL/min (>60); Globulin 3.1 gm/dL (2.3-3.5); Glucose 105 mg/dL (74-106); Magnesium 2.3 mg/dL (1.6-2.6); Osmolality,Calculated 303 (275-295); Sodium 147 mMol/L (136-145); Total Protein 6.3 gm/dL (5.7-8.2); eGFR > 60 See Note
[2024-07-17 06:03] LABS: Hemoglobin 7.4 g/dL (13.5-16.0)
[2024-07-17] MEDS: ENOXAPARIN SOD INJ 80 MG/0.8 ML SYRINGE SC ×2 (08:52→21:40)
[2024-07-17] MEDS: Ferrous Sulfate 300 MG/5 ML UDC GT (08:52)
[2024-07-17] MEDS: POTASSIUM CHLORIDE 10% 20 MEQ/15 ML UDC 40 MEQ GT (08:53)
[2024-07-17] MEDS: TRIMETHOPRIM 160 MG/SULFA 800 MG SUSP 20 ML UDC PO (08:53)
[2024-07-17] MEDS: RALTEGRAVIR 400 MG TABLET NG ×2 (08:53→21:39)
[2024-07-17] MEDS: GABAPENTIN 100 MG CAPSULE 400 MG GT ×2 (08:53→21:39)
[2024-07-17] MEDS: EMTRICITABINE 200 MG/TENOFOVIR 300 MG TAB (NON-FORM) 1 TAB PO (08:53)
[2024-07-17] MEDS: PANTOPRAZOLE INJ 40 MG VIAL IV (08:53)
[2024-07-17] MEDS: ASPIRIN 81 MG CHEW PO (08:54)
[2024-07-17] MEDS: methylPREDNISolone 4 MG TABLET 20 MG PO (09:00)
--- NOTE | 2024-07-17 09:06 | PC.SS ---
SS spoke to Darius with [facility], SS updated clinicals via [facility]. SS also spoke to Izzy [employer]SULT[employer], who stated per Dr. Anderson pt will be ready most likely Thursday.
[2024-07-17] MEDS: modafiniL 100 MG TABLET GT (12:22)
[2024-07-17] MEDS: ACETAzolaMIDE SOD 500 MG in SODIUM CHLORIDE 0.9% (P) 50 ML 100 MG IV ×2 (12:33→21:39)
[2024-07-17] MEDS: METHADONE HCL 10 MG TABLET GT ×2 (15:12→21:39)
[2024-07-17] MEDS: CALCIUM CARBONATE 600 MG TABLET GT (15:12)
--- NOTE | 2024-07-17 15:50 | ESPR_ITS ---
Documentation for date of: 07/17/24 Subjective Subjective Interval history: 07/13/24: The patient was evaluated and examined at the bedside this morning. Overnight, the patient was having severe tremors, and was started on Precedex drip, initially tremors resolved but later required midazolam 2 mg IV x 1 followed by midazolam 4 mg IV x 1 which resolved his tremors. He is still tachycardic in 110s. We will continue with the volume control setting at this point and start him on SIMV with TV 500cc, PS 15, PEEP 10 and RR 10 in the evening. We will continue with phenobarbital 60 Mg 3 times daily, decreased clonazepam to 0.5 Mg 3 times daily, continue with Precedex drip, and increased the dose of gabapentin to 400 Mg twice daily. We will do lab work every 72 hours. The plan is to try with SAT in a couple of days. 07/14/24: The patient was evaluated and examined at the bedside this morning. Patient did not had any overnight events. We have discontinued all IV sedatives, and we decreased the frequency of doses of phenobarbital 60 Mg twice daily, clonazepam 0.5 Mg twice daily, and will continue gabapentin 400 Mg twice daily along with methadone 20 Mg 3 times daily. Lung compliance seems to be improving. His white count was 15.1, ABG done revealed pCO2 83, bicarb 54 with phosphorus 2.3. Phosphorus and magnesium was repleted. Liver enzymes trending down. We ordered EEG to evaluate for any further anoxic brain injury. We will try to get SAT in a couple of days. 07/15/2024: The patient was evaluated and examined at the bedside this morning. No acute overnight events. We gave 1 dose of phenobarbital 30 Mg and stopped it. Clonazepam dose was decreased down to 0.25 Mg twice daily, we will continue with gabapentin 400 Mg twice daily and methadone was decreased to 15 Mg 3 times daily. Lung compliance seems to be improving, white count trending down, hemoglobin was 6.9 and 1 unit PRBC was ordered. VBG revealed pCO2 of 79, pO2 40 and pH 7.39. Mild elevation in liver enzymes, we will continue to monitor. EEG was significant for diffuse slowing of waveforms, but official reading pending. 07/16/2024: Patient seen and examined at bedside. No overnight events. Patient responsive to painful stimuli, opens eyes. Patient has decreasing urine output, Lasix 40 ordered. Kayexalate given for potassium 5.4. Patietn on pressure support overnight, morning ABG showed pH 7.25, pCO2 115, pO2 70. Changed to SIVM, repeat ABG showed pH 7.32, pCO2 95, pO2 59. 07/17/2024: The patient was seen and examined at the bedside. No overnight events. Patient has been still responsive to painful stimuli, tries to open his eyes when asked. Labs were significant for decreasing white count to 11.0, hemoglobin 7.4, sodium 147, potassium 3.0 was repleted with 40 mEq oral KCl, AST/ALT mildly elevated 151/123 with ALP 382. We decreased the methadone dose to 10 Mg 3 times daily, and we will keep continuing gabapentin 400 Mg twice daily. Modafinil 100 Mg daily was started to wake him up. Exam Vital Signs Temp Pulse Resp BP Pulse Ox O2 Del Method O2 Flow Rate 99.4 F 109 H 33 H 139/69 H 93 L Mechanical Ventilation 70 07/17/24 12:00 07/17/24 15:23 07/17/24 02:00 07/17/24 15:23 07/17/24 15:23 07/17/24 07:00 07/15/24 17:34 FiO2 70 07/17/24 15:23 Objective Labs 07/19/24 07:54 07/19/24 07:54 Labs: Laboratory Results - last 24 hr 07/16/24 07/16/24 07/17/24 15:51 20:42 02:25 WBC RBC Hgb Hct MCV MCH MCHC RDW Std Deviation Plt Count Neut % (Auto) Lymph % (Auto) [place] % (Auto) Eos % (Auto) Baso % (Auto) Neut # (Auto) Lymph # (Auto) [place] # (Auto) Eos # (Auto) Baso # (Auto) Immature Gran # (Auto) Absolute Nucleated RBC Immature Gran % Nucleated RBC % Sodium 138 Potassium 5.7 H 6.0 H 4.4 D Chloride 89 L Carbon Dioxide > 40.0 H Anion Gap 9 BUN 51 H Creatinine 1.2 Estim Creat Clear Calc 75.3 eGFR > 60 BUN/Creatinine Ratio 43 H Glucose 100 Calculated Osmolality 289 Calcium 8.5 Corrected Calcium 9.1 Phosphorus 5.3 H Magnesium Total Bilirubin AST ALT Alkaline Phosphatase Total Protein Albumin 3.3 L Globulin Albumin/Globulin Ratio 07/17/24 05:00 WBC 11.0 H RBC 2.82 L Hgb 7.4 L Hct 25.5 L MCV 90 MCH 26.2 MCHC 29.0 L RDW Std Deviation 76.5 H Plt Count 255 Neut % (Auto) 80 Lymph % (Auto) 8 L [place] % (Auto) 8 Eos % (Auto) 1 Baso % (Auto) 1 Neut # (Auto) 8.8 H Lymph # (Auto) 0.9 L [place] # (Auto) 0.9 H Eos # (Auto) 0.2 Baso # (Auto) 0.1 Immature Gran # (Auto) 0.17 H Absolute Nucleated RBC 0.07 H Immature Gran % 2 H Nucleated RBC % 1 H Sodium 147 H Potassium 3.0 L D Chloride 92 L Carbon Dioxide > 40.0 H Anion Gap 15 BUN 43 H Creatinine 1.0 Estim Creat Clear Calc 90.4 eGFR > 60 BUN/Creatinine Ratio 43 H Glucose 105 Calculated Osmolality 303 H Calcium 8.7 Corrected Calcium 9.3 Phosphorus 4.0 Magnesium 2.3 Total Bilirubin 0.2 L AST 151 H ALT 123 H Alkaline Phosphatase 382 H Total Protein 6.3 Albumin 3.2 L Globulin 3.1 Albumin/Globulin Ratio 1.0 L ABG Interpretation ABG results: 05/27/24 05/29/24 05/29/24 23:37 10:44 22:08 ABG pH 7.51 H 7.50 H 7.48 H ABG pCO2 28 L 32 32 ABG pO2 75 L 79 L 145 H D ABG HCO3 23 25 24 ABG O2 Saturation 96 95 98 ABG Base Excess 0 2 1 VBG pH VBG pCO2 VBG pO2 VBG Base Excess 05/30/24 05/31/24 06/04/24 08:45 04:54 02:10 ABG pH 7.47 H 7.45 7.45 ABG pCO2 35 38 36 ABG pO2 86 D 82 L 139 H ABG HCO3 26 26 25 ABG O2 Saturation 97 96 98 ABG Base Excess 2 2 1 VBG pH VBG pCO2 VBG pO2 VBG Base Excess 06/04/24 06/05/24 06/05/24 18:16 11:36 12:59 ABG pH 7.44 7.11 L* D 7.20 L ABG pCO2 36 94 H* D 68 H D ABG pO2 80 L D 150 H D 121 H D ABG HCO3 24 30 H 26 ABG O2 Saturation 94 97 97 ABG Base Excess 0 -2 -3 VBG pH VBG pCO2 VBG pO2 VBG Base Excess 06/05/24 06/06/24 06/06/24 19:25 04:13 15:27 ABG pH 7.22 L 7.27 L 7.30 L ABG pCO2 64 H 57 H 60 H ABG pO2 122 H 153 H D 74 L D ABG HCO3 26 26 29 H ABG O2 Saturation 97 99 H 92 ABG Base Excess -3 -2 2 VBG pH VBG pCO2 VBG pO2 VBG Base Excess 06/07/24 06/07/24 06/08/24 03:55 09:59 04:20 ABG pH 7.41 D 7.43 7.45 ABG pCO2 56 H 55 H 50 H ABG pO2 293 H D 78 L D 75 L ABG HCO3 36 H 37 H 35 H ABG O2 Saturation 99 H 95 94 ABG Base Excess 10 H 11 H 10 H VBG pH VBG pCO2 VBG pO2 VBG Base Excess 06/08/24 06/08/24 06/08/24 11:05 11:50 13:18 ABG pH 7.17 L* D 7.10 L* 7.15 L* ABG pCO2 95 H* D 115 H* D 88 H* D ABG pO2 89 75 L 72 L ABG HCO3 34 H 36 H 31 H ABG O2 Saturation 92 84 L 85 L ABG Base Excess 3 4 H 0 VBG pH VBG pCO2 VBG pO2 VBG Base Excess 06/08/24 06/09/24 06/09/24 17:02 01:33 03:15 ABG pH 7.18 L* 7.22 L 7.27 L ABG pCO2 50 H D 91 H* D 82 H* ABG pO2 82 L 105 D 86 ABG HCO3 19 L 37 H 38 H ABG O2 Saturation 93 97 95 ABG Base Excess -9 L 7 H 9 H VBG pH VBG pCO2 VBG pO2 VBG Base Excess 06/09/24 06/09/24 06/10/24 05:08 12:52 04:40 ABG pH 7.31 L 7.33 L 7.30 L ABG pCO2 75 H* 57 H D 78 H* D ABG pO2 97 158 H D 65 L D ABG HCO3 38 H 30 H 38 H ABG O2 Saturation 97 99 H 90 L ABG Base Excess 10 H 3 9 H VBG pH VBG pCO2 VBG pO2 VBG Base Excess 06/10/24 06/11/24 06/12/24 09:40 04:19 04:15 ABG pH 7.27 L 7.35 7.48 H D ABG pCO2 88 H* D 86 H* 63 H D ABG pO2 65 L 70 L 76 L ABG HCO3 40 H 48 H 47 H ABG O2 Saturation 89 L 93 95 ABG Base Excess 10 H 19 H 21 H VBG pH VBG pCO2 VBG pO2 VBG Base Excess 06/13/24 06/14/24 06/15/24 07:22 04:32 03:45 ABG pH 7.46 H 7.48 H 7.46 H ABG pCO2 56 H 40 D 37 ABG pO2 80 L 64 L 71 L ABG HCO3 39 H 30 H 27 H ABG O2 Saturation 95 92 94 ABG Base Excess 13 H 6 H 3 VBG pH VBG pCO2 VBG pO2 VBG Base Excess 06/15/24 06/15/24 06/15/24 10:17 12:20 14:20 ABG pH 7.01 L* D 7.00 L* 7.03 L* ABG pCO2 122 H* D 130 H* 125 H* ABG pO2 91 D 88 82 L ABG HCO3 31 H 32 H 33 H ABG O2 Saturation 88 L 88 L 87 L ABG Base Excess -3 -2 -1 VBG pH VBG pCO2 VBG pO2 VBG Base Excess 06/15/24 06/15/24 06/16/24 15:55 20:39 00:35 ABG pH 7.03 L* 7.08 L* 7.10 L* ABG pCO2 121 H* 116 H* 118 H* ABG pO2 99 117 H 102 ABG HCO3 32 H 34 H 37 H ABG O2 Saturation 93 97 96 ABG Base Excess -1 2 4 H VBG pH VBG pCO2 VBG pO2 VBG Base Excess 06/16/24 06/16/24 06/17/24 04:45 08:55 05:06 ABG pH 7.17 L* 7.28 L D 7.33 L ABG pCO2 112 H* 88 H* D 96 H* ABG pO2 155 H D 98 D 126 H D ABG HCO3 41 H 41 H 50 H ABG O2 Saturation 99 H 98 99 H ABG Base Excess 9 H 12 H 21 H VBG pH VBG pCO2 VBG pO2 VBG Base Excess 06/17/24 06/17/24 06/18/24 10:58 13:55 04:16 ABG pH 7.29 L 7.29 L 7.33 L ABG pCO2 106 H* D 106 H* 86 H* D ABG pO2 58 L* D 61 L 77 L ABG HCO3 51 H 51 H 45 H ABG O2 Saturation 87 L 88 L 95 ABG Base Excess 21 H 21 H 17 H VBG pH VBG pCO2 VBG pO2 VBG Base Excess 06/19/24 06/20/24 06/21/24 04:18 04:49 04:06 ABG pH 7.42 7.36 7.44 ABG pCO2 63 H D 74 H* D 61 H D ABG pO2 66 L 55 L* 202 H D ABG HCO3 41 H 42 H 42 H ABG O2 Saturation 93 87 L 100 H ABG Base Excess 15 H 14 H 16 H VBG pH VBG pCO2 VBG pO2 VBG Base Excess 06/22/24 06/23/24 06/24/24 04:18 04:29 04:25 ABG pH 7.45 7.46 H 7.29 L D ABG pCO2 57 H 53 H 80 H* D ABG pO2 60 L D 99 D 88 ABG HCO3 40 H 38 H 38 H ABG O2 Saturation 91 99 H 96 ABG Base Excess 14 H 13 H 9 H VBG pH VBG pCO2 VBG pO2 VBG Base Excess 06/24/24 06/25/24 06/25/24 08:50 05:13 11:02 ABG pH 7.40 D 7.46 H Cancelled ABG pCO2 61 H D 53 H Cancelled ABG pO2 110 H D 66 L D Cancelled ABG HCO3 38 H 38 H Cancelled ABG O2 Saturation 99 H 94 Cancelled ABG Base Excess 12 H 13 H Cancelled VBG pH VBG pCO2 VBG pO2 VBG Base Excess 06/25/24 06/26/24 06/26/24 15:53 04:13 11:40 ABG pH 7.39 7.41 7.46 H ABG pCO2 53 H 48 43 ABG pO2 55 L* 58 L* 58 L* ABG HCO3 32 H 30 H 31 H ABG O2 Saturation 86 L 89 L 92 ABG Base Excess 6 H 5 H 6 H VBG pH VBG pCO2 VBG pO2 VBG Base Excess 06/27/24 06/28/24 06/28/24 04:17 04:24 06:22 ABG pH 7.48 H 7.27 L D 7.22 L ABG pCO2 39 72 H* D 83 H* D ABG pO2 49 L* 71 L D 82 L ABG HCO3 29 H 33 H 34 H ABG O2 Saturation 87 L 93 95 ABG Base Excess 5 H 5 H 4 H VBG pH VBG pCO2 VBG pO2 VBG Base Excess 06/28/24 06/29/24 06/30/24 10:18 04:21 07:57 ABG pH 7.32 L D 7.41 7.41 ABG pCO2 64 H D 63 H 62 H ABG pO2 76 L 81 L 59 L* D ABG HCO3 33 H 40 H 40 H ABG O2 Saturation 95 97 88 L ABG Base Excess 6 H 14 H 13 H VBG pH VBG pCO2 VBG pO2 VBG Base Excess 07/02/24 07/03/24 07/04/24 04:05 04:45 04:11 ABG pH 7.46 H 7.43 7.38 ABG pCO2 53 H 58 H 67 H ABG pO2 77 L 100 D 73 L D ABG HCO3 38 H 39 H 40 H ABG O2 Saturation 96 98 94 ABG Base Excess 12 H 13 H 13 H VBG pH VBG pCO2 VBG pO2 VBG Base Excess 07/05/24 07/06/24 07/09/24 04:40 04:08 04:53 ABG pH 7.30 L 7.42 D 7.26 L ABG pCO2 87 H* D 67 H D 94 H* ABG pO2 132 H D 64 L D 149 H ABG HCO3 43 H 43 H 42 H ABG O2 Saturation 99 H 92 100 H ABG Base Excess 14 H 17 H 12 H VBG pH VBG pCO2 VBG pO2 VBG Base Excess 07/11/24 07/12/24 07/14/24 11:34 04:49 04:45 ABG pH 7.25 L 7.36 D ABG pCO2 106 H* D 94 H* D ABG pO2 67 L D 59 L* ABG HCO3 46 H 53 H ABG O2 Saturation 91 90 L ABG Base Excess 16 H 24 H VBG pH 7.38 VBG pCO2 74 H VBG pO2 148 H VBG Base Excess 16 H 07/14/24 07/15/24 07/16/24 09:21 10:24 04:35 ABG pH 7.42 7.25 L D ABG pCO2 83 H* D 115 H* D ABG pO2 61 L 70 L ABG HCO3 54 H 50 H ABG O2 Saturation 92 93 ABG Base Excess 27 H 20 H VBG pH 7.39 VBG pCO2 79 H VBG pO2 40 VBG Base Excess 21 H 07/16/24 09:20 ABG pH 7.32 L ABG pCO2 95 H* D ABG pO2 59 L* ABG HCO3 49 H ABG O2 Saturation 92 ABG Base Excess 20 H VBG pH VBG pCO2 VBG pO2 VBG Base Excess Quality Measures Quality Measures sepsis Current suspected stage: ruled out Possible source: pulmonary, GI tract/intra-abdominal, genitourinary and skin/soft tissue Blood cultures ordered: yes Antibiotic ordered: No Assessment & Plan Assessment Current Active Medications: Generic Name Dose Route Start Last Admin Trade Name Freq PRN Reason Stop Dose Admin Acetaminophen 650 mg 06/26/24 15:16 07/15/24 00:37 Acetaminophen Munira 325 Mg/10 Ml Udc GT 07/26/24 15:15 650 mg Q4HR PRN Administration Pain Or Fever > 100.3 Artificial Tears 1 drop 06/18/24 12:00 07/17/24 12:34 Artificial Tears 225 Drop/15 Ml Btl BOTH EYES 07/18/24 11:59 1 drop QID JUAN JOSE Administration Aspirin 81 mg 07/11/24 09:30 07/17/24 08:54 Aspirin 81 Mg Chew PO 08/08/24 10:59 81 mg QDAY JUAN JOSE Administration Atorvastatin Calcium 80 mg 07/10/24 21:00 07/16/24 21:05 Atorvastatin Calcium 20 Mg Tablet PO 08/09/24 20:59 80 mg HS JUAN JOSE Administration Calcium Carbonate 600 mg 06/28/24 13:00 07/17/24 15:12 Calcium Carbonate 600 Mg Tablet GT 07/28/24 12:59 600 mg QDAY@1300 JUAN JOSE Administration Docusate Sodium 100 mg 06/25/24 09:13 Docusate Sod Liqd 100 Mg/10 Ml Udc PO 07/22/24 08:59 BID PRN Constipation Protocol Emtricitabine/Tenofovir 1 tab 07/06/24 11:30 07/17/24 08:53 Emtricitabine 200 Mg/Tenofovir 300 Mg Tab (Non-Form) PO 08/19/24 14:33 1 tab QDAY JUAN JOSE Administration Enoxaparin Sodium 80 mg 07/15/24 21:00 07/17/24 08:52 Enoxaparin Sod Inj 80 Mg/0.8 Ml Syringe SC 10/11/24 08:00 80 mg BID JUAN JOSE Administration Ferrous Sulfate 300 mg 07/02/24 10:00 07/17/24 08:52 Ferrous Sulfate 300 Mg/5 Ml Udc GT 07/23/24 09:59 300 mg QDAY JUAN JOSE Administration Gabapentin 400 mg 07/13/24 21:00 07/17/24 08:53 Gabapentin 100 Mg Capsule GT 08/12/24 20:59 400 mg BID JUAN JOSE Administration Norepinephrine/Dextrose 8 mg in 250 mls @ 6.319 mls/hr 06/30/24 04:17 07/09/24 11:30 Levophed In D5w 8mg/250ml IV 07/30/24 04:16 0 mcg/kg/min .Q24H PRN 0 mls/hr PER PROTOCOL Titration Protocol 0.05 MCG/KG/MIN Dexmedetomidine/Sodium Chloride 200 mcg in 50 mls @ 4.01 mls/hr 07/13/24 04:40 07/13/24 11:42 Precedex Ivpb IV 08/12/24 04:29 0 mcg/kg/hr .[id number] PRN 0 mls/hr Per PROTOCOL Titration Protocol 0.2 MCG/KG/HR Acetazolamide Sodium 500 mg/ 50 mls @ 100 mls/hr 07/17/24 12:45 07/17/24 12:33 Sodium Chloride IV 08/16/24 12:44 100 mls/hr BID JUAN JOSE Administration Methadone HCl 10 mg 07/17/24 14:00 07/17/24 15:12 Methadone Hcl 10 Mg Tablet GT 07/22/24 13:59 10 mg Q8HR JUAN JOSE Administration Methylprednisolone 10 mg 07/18/24 09:00 Methylprednisolone 4 Mg Tablet PO 08/17/24 08:59 QDAY JUAN JOSE Modafinil 100 mg 07/18/24 09:00 Modafinil 100 Mg Tablet PO 08/17/24 08:59 QDAY JUAN JOSE Pantoprazole Sodium 40 mg 07/07/24 09:32 07/17/24 08:53 Pantoprazole Inj 40 Mg Vial IV 08/06/24 09:31 40 mg QDAY JUAN JOSE Administration Raltegravir 400 mg 07/06/24 11:30 07/17/24 08:53 Raltegravir 400 Mg Tablet NG 08/19/24 14:33 400 mg BID JUNA JOSE Administration Trimethoprim/Sulfamethoxazole 20 ml 07/15/24 09:00 07/17/24 08:53 Trimethoprim 160 Mg/Sulfa 800 Mg Susp 20 Ml Udc PO 06/22/25 12:00 20 ml QDAY JUAN JOSE Administration Plan 39-year-old male patient with no PMHx who initially presented to [facility] 05/[facility]24 with a chief complaint of shortness of breath and cough, with associated chills, body aches, generalized weakness, fever, and night sweats beginning weeks prior but progressively worsening over a few days is currently being treated for acute hypoxic respiratory failure secondary to PCP pneumonia that was complicated by ventilator associated pneumonia. Patient is currently on tracheostomy tube and mechanically ventilated. 07/17/2024: The patient was seen and examined at the bedside. No overnight events. Patient has been still responsive to painful stimuli, tries to open his eyes when asked. Labs were significant for decreasing white count to 11.0, hemoglobin 7.4, sodium 147, potassium 3.0 was repleted with 40 mEq oral KCl, AST/ALT mildly elevated 151/123 with ALP 382. We decreased the methadone dose to 10 Mg 3 times daily, and we will keep continuing gabapentin 400 Mg twice daily. Modafinil 100 Mg daily was started to wake him up. NEURO Patient is sedated and mechanically ventilated through tracheostomy tube. 06/05/2024 Patient was intubated, sedated, and paralyzed for ARDS. -We decreased the methadone dose to 10 Mg 3 times daily, and we will keep continuing gabapentin 400 Mg twice daily. Modafinil 100 Mg daily was started to wake him up. #Rt Parietal ischemic Stroke MRI on 07/08 Large area of restricted diffusion in the left frontal parietal white matter and small foci in the right parietal white matter most consistent with acute infarction -On aspirin 81mg daily and atorvastatin 80mg daily at night. #Fever, resolved #Withdrawal syndrome, stable Multiple cultures has been negative -Repeat influenza and COVID test on 07/04 negative -Repeat blood, urine and sputum culture are negative -Treat underlying condition -Tylenol as needed CARDIO #Right subclavian and axillary vein DVT. -Doppler US right upper extremity 06/17/24: revealed RUE DVT -On Heparin Drip 06/17-07/09, On Enoxaparin 75mg BID 07/11- #Sinus tachycardia Tachycardia most likely secondary to acute respiratory distress syndrome contributed by withdrawal while tapering the dose of IV sedatives -Continue to treat underlying cause #Shock, resolved Most likely 2/2 sedation. BC has been negative and on appropriate antibiotics Patient presented with septic shock secondary to severe extensive bilateral pneumonia. After resolution of initial septic shock, patient developed new hypotension, tachycardia, tachypnea, fevers indicated of septic shock. -Pressor support as needed -Linezolid (started 06/27-07/04) -Meropenem (started 06/27-07/04) -Urine (06/27) showed resistant staph epi -Blood (06/27) showed resistant Staphylococcus haemolyticus -repeat blood cultures and urine cultures negative -taper down sedatives as tolerated PULM #Chronic hypoxic respiratory failure 2/2 # Acute respiratory distress syndrome in the setting of post PCP pneumonia state Secondary to #Bilateral pneumocystis jirovecii pneumonia, resolved #Healthcare associated pneumonia, resolved, resolved #Ventilator associated pneumonia, resolved #S/P Tracheostomy #Pneumomediastinum, resolved -ABG done on 07/14/24 showed improvement. On vent support -Titrate down FiO2 as tolerated GI GI prophylaxis: IV pantoprazole 40 Mg daily #Elevated LFTs 2/2 HIV DDx: adverse affect of drugs, we had discontinued oxycodone previously, and phenobarbitol Liver enzymes started trending down after discontinuing oxycodone and phenobarbitol. liver US 05/30/2024 showed normal gallbladder and hepatomegaly without lesions or evidence of obstructions. Hep panel negative. LFTs downtrending Plan: -Continue monitoring #Hypertriglyceridemia, down trending secondary to propofol use, -Discontinued propofol NEPHRO #WILL Patient has WILL likely 2/2 congestion -Diamox 500mg IV BID started due to -Monitor UOP and renal panel -Consider alternative to Bactrim #Central diabetes insipidus, resolved #Hypophosphatemia, repleted #Hypokalemia -Repleted with KCL 40 meq x1, -On 20meq BID Liquid KCL #Mild hyponatremia Secondary to SIADH due to acute hypoxic respiratory failure leading to pulmonary distress -Continue to monitor #Hyperphosphetemia, stable -on sevelamir 800mg TID and calcium carbonate 600mg daily #NAGMA #Primary Respiratory acidosis compensated by metabolic alkalosis Secondary to increased work of breathing and increased RR 2/2 chronic hypoxic respiratory failure and chronic respiratory distress syndrome in the setting of tapering down of IV sedatives -ABGs 07/12 pH of 7.25, pCO2 106, bicarb 46 -We will treat the underlying cause respiratory acidosis HEME #Leukocytosis Likely reactive as we are tapering down sedatives and is still on steroid #Microcytic anemia 2/2 STEPHY and Inflammatory anemia Stable, has not required any transfusions this admission thus far. Clinically no evidence of bleeding. Iron panel shows iron 17, TIBC 262, iron saturation 6, unsaturated iron binding 245. Peripheral blood film confirms microcytic hypochromic anemia with target cells. Also daily lab draws contributing. Patient required x1 PRBC for Hg 6.9. Plan: -Started on oral ferrous sulfate 300 Mg daily -Feraheme 510mg was given x1 on 07/15/24 -Monitor H&H. Transfusing for Hgb <7 #Thrombocytosis, resolved Likely reactive in the setting of withdrawal syndrome -Continue to monitor ENDO #Hypoglycemia, resolved ID #Bilateral pneumocystis pneumonia, resolved #Healthcare associated pneumonia, resolved #Ventilator associated pneumonia, resolved #PCP pneumonia prophylaxis Negative studies: Cocci IgM and IgG, Hepatitis panel, Syphilis, Legionella, H.flu, N.meningitidis, Strep B, Strep pneumoniae, COVID, RSV, Flu A & B. TB quantiferon GOLD-indeterminate, however 06/05 AFB negative, CMV IgM, cryptococcal antigen negative. G6PD levels came back normal for consideration of dapsone alternative to Bactrim if needed. Patient completed 5 day course of azithromycin, 16 days of Zosyn. See Pulm for timeline of antimicrobial coverage. On 06/27 patient developed new septic shock Plan: -Antibiotcs Bactrim for prevention of PCP pneumonia in the setting of CD4 count of 116 -Linezolid and meropenum restarted on 06/27/2024-07/04/24 -Urine ackerman port grew GPC, Staph epidermidis that is MDR, sensitive to linezolid. -Fungal cultures from BAL pending, follow-up on results -Blood cultures from 06/26/2024 and 06/27/2024, negative so far, cultures drawn on 06/29/2024 is pending -Follow up blood, sputum, and urine cultures were negative -Repeat blood, urine, sputum cultures were ordered on 07/07/2024- negative #AIDS/HIV Patient has Stage 4 HIV, AIDS-defining illness with opportunistic infection. 06/07/2024 Bronchoalveolar lavage cytology shows Pneumocystis jirovecii. Also other fungi, possibly Kassandra. Kassandra is most likely a contaminant. Blood [id number] also positive. 06/08/2024 HIV quant 5.66 million copies. HIV 1 positive confirmed. 06/09/2024 Patient's decision maker, Francesca, was informed of diagnosis due to critical state of patient. Absolute CD4 count 87 and 22% on 06/02. History/risk factors: History of injection anabolic androgenic steroid and testosterone use, possible unclean needles. History of incarceration (unknown time). Tattoos received as a teenager. Has 1 female sexual partner last 5 years, denies others. -Continue HAART: emtricitabine / tenofovir (Truvada) and raltegravir initiated 06/09/24 -Patient is not aware of his diagnosis as he has been intubated and sedated before results returned. Will require complete education and counseling on the disease if his mental status and clinical condition improves. -Bactrim 20ml PO daily for prophylaxis -consider alternative prophylactic regiments in setting of WILL #IRIS The patient has been on HAART for around 4 weeks and given the presentation of ARDS, with negative BC, positive for fever, and on appropriate antibiotics, still having respiratory distress with breathy stacking there is a high possibility of IRIS -Continue on methylprednisone 40mg IV BID until 07/08/2024, Daily from 07/09- 07/13 -On oral methylpred 20mg daily 07/14-07/07, 10mg daily 07/18- MSK #Elevated creatine kinase -Down trended SKIN #Lower lip abrasion #Right forearm blisters -Improving -Monitor closely Dispo: Patient was admitted to ICU unit for the management of acute hypoxic respiratory failure 2/2 PCP pneumonia in the 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 DVT prophylaxis: On enoxaparin 75mg BID for treatment of right upper extremity DVT GI prophylaxis: Pantoprazole 40 mg IV qday Diet: Tube feeds Ackerman: No, condom cath Lines: Peripheral IV, removed rt femoral central line on 06/28/24 Antibiotics: Bactrim CODE STATUS: DNR/DNI The patient's management plan was discussed with my attending physician MD Jeff Hamilton MD, PGY2 Attending Provider Attestation/Addendum Patient seen and examined with above resident, Jeff Pacheco MD. I agree with the findings, assessment, and plan of care as documented except for any differences below. Patient continues to stabilize from a neurologic standpoint with removal of IV sedation and transition to a completely oral regimen. Patient does open his eyes to verbal stimuli when his name is called. Likely significant debility limiting his ability to follow commands otherwise due to prolonged critical illness. Patient's family remains hopeful and we will be planning for LTAC placement in the coming days depending on his response. Patient has now been off of phenobarb for multiple days and clonazepam was recently discontinued. Patient remains on methadone and gabapentin with adjustments made appropriately. Patient without evidence of ongoing active infection. He continues to have significant high airway pressures due to fibrotic phase of ARDS after PJP pneumonia and recurrent ventilator associated infections. Patient on appropriate heart therapy with Bactrim prophylaxis. Continue steroid taper as planned. Patient's family was updated at bedside and remain agreeable to current plan of care. Total critical care time: Personally spent 30 minutes for review of physiologic parameters, directing plan of care throughout the day, and counseling patient's family at bedside. This is exclusive of time spent teaching housestaff or performing any separate billable procedures. Patient continues to require critical care services due to acute hypoxic respiratory failure in the setting of fibrotic phase of ARDS secondary to PJP pneumonia and ventilator associated infection. Patient's acute encephalopathy seems to be slowly improving with transition from IV sedation to oral regimen. Patient's neurologic recovery continues to be limited. Patient continues require close monitoring and aggressive care in the ICU to prevent any further morbidity and limit potential for mortality.
[2024-07-17] MEDS: POTASSIUM CHLORIDE 10% 20 MEQ/15 ML UDC GT (17:25)
[2024-07-17 21:34] LABS: Anion Gap 11 (7-16); BUN/Creatinine Ratio 37 Ratio (12-20); Blood Urea Nitrogen 33 mg/dL (9-23); Calcium 9.1 mg/dL (8.3-10.6); Carbon Dioxide > 40.0 mMol/L (20.0-31.0); Chloride 98 mMol/L (98-107); Creatinine (Component) 0.9 mg/dL (0.6-1.3); Estimated Creatinine Clearance 100.4 mL/min (>60); Glucose 94 mg/dL (74-106); Osmolality,Calculated 303 (275-295); Potassium 4.6 mMol/L (3.4-5.1); Sodium 149 mMol/L (136-145); eGFR > 60 See Note
[2024-07-17] MEDS: ATORVASTATIN CALCIUM 20 MG TABLET 80 MG PO (21:40)
[2024-07-18] VITALS (32 sets, daily range): BP systolic 99–165; BP diastolic 57–83; PULSE 103–129; RESP 23–45; TEMP 36.7–37.7; O2SAT 88–98; BMI 25.4
[2024-07-18 04:55] LABS: Base Excess 22 (-3-3); HCO3 50 mEq/L (20-26); Inspired Oxygen, FIO2 70 %; O2 Saturation 89 % (91-98); PCO2 92 mmHg (32.0-48.0); PO2 60 mmHg (83-108); pH, Arterial 7.35 (7.35-7.45)
[2024-07-18 05:01] LABS: Allen Test Not Performed; Puncture Site Left Radial
[2024-07-18] MEDS: METHADONE HCL 10 MG TABLET GT ×3 (05:14→21:24)
[2024-07-18] MEDS: Artificial Tears 225 DROP/15 ML BTL BOTH EYES (05:15)
[2024-07-18 06:38] LABS: Alanine Aminotransferase 123 U/L (10-49); Albumin, Serum 2.9 gm/dL (3.5-5.0); Alkaline Phosphatase 316 U/L (46-116); Anion Gap 12 (7-16); Aspartate Amino Transferase 149 U/L (0-34); BUN/Creatinine Ratio 34 Ratio (12-20); Bilirubin,Total 0.2 mg/dL (0.3-1.2); Blood Urea Nitrogen 34 mg/dL (9-23); Calcium (Corrected) 9.9 mg/dL (8.5-10.1); Carbon Dioxide > 40.0 mMol/L (20.0-31.0); Chloride 100 mMol/L (98-107); Estimated Creatinine Clearance 90.4 mL/min (>60); Globulin 2.9 gm/dL (2.3-3.5); Glucose 102 mg/dL (74-106); Osmolality,Calculated 309 (275-295); Phosphorous 3.5 mg/dL (2.4-5.1); Potassium 3.4 mMol/L (3.4-5.1); Sodium 152 mMol/L (136-145); Total Protein 5.8 gm/dL (5.7-8.2); eGFR > 60 See Note
[2024-07-18] MEDS: ENOXAPARIN SOD INJ 80 MG/0.8 ML SYRINGE SC ×2 (08:20→21:24)
[2024-07-18] MEDS: GABAPENTIN 100 MG CAPSULE 400 MG GT ×2 (08:20→21:24)
[2024-07-18] MEDS: Ferrous Sulfate 300 MG/5 ML UDC GT (08:20)
[2024-07-18] MEDS: PANTOPRAZOLE INJ 40 MG VIAL IV (08:20)
[2024-07-18] MEDS: modafiniL 100 MG TABLET PO (08:20)
[2024-07-18] MEDS: ASPIRIN 81 MG CHEW PO (08:20)
[2024-07-18] MEDS: POTASSIUM CHLORIDE 10% 20 MEQ/15 ML UDC GT ×2 (08:20→21:25)
[2024-07-18] MEDS: EMTRICITABINE 200 MG/TENOFOVIR 300 MG TAB (NON-FORM) 1 TAB PO (08:21)
[2024-07-18] MEDS: RALTEGRAVIR 400 MG TABLET NG ×2 (08:22→21:24)
[2024-07-18] MEDS: methylPREDNISolone 4 MG TABLET 10 MG PO (08:22)
--- NOTE | 2024-07-18 08:46 | PC.PT ---
Patient is currently on mechanical ventilation. PT eval will be held until patient is no longer on mechanical ventilation.
[2024-07-18] MEDS: POTASSIUM CHLORIDE 10% 20 MEQ/15 ML UDC 40 MEQ GT (08:51)
--- NOTE | 2024-07-18 09:02 | PD.IDPROG ---
Subjective Subjective Interval history: vl and cd4 remain pending from a week ago or so. Exam Vital Signs Temp Pulse Resp BP Pulse Ox O2 Del Method O2 Flow Rate 99.0 F 119 H 33 H 160/77 H 89 L Mechanical Ventilation 70 07/18/24 04:00 07/18/24 06:48 07/17/24 22:00 07/18/24 06:48 07/18/24 06:48 07/17/24 07:00 07/15/24 17:34 FiO2 70 07/18/24 07:21 Narrative Exam still on vent. Objective - Internal Medicine Labs 07/17/24 05:00 07/18/24 04:51 Labs: Laboratory Results - last 24 hr 07/10/24 07/17/24 07/18/24 04:39 20:35 04:39 Puncture Site Left Radial ABG pH 7.35 ABG pCO2 92 H* ABG pO2 60 L ABG HCO3 50 H ABG O2 Saturation 89 L ABG Base Excess 22 H FiO2 70 Sodium 149 H Potassium 4.6 D Chloride 98 Carbon Dioxide > 40.0 H Anion Gap 11 BUN 33 H Creatinine 0.9 Estim Creat Clear Calc 100.4 eGFR > 60 BUN/Creatinine Ratio 37 H Glucose 94 Calculated Osmolality 303 H Calcium 9.1 Corrected Calcium Phosphorus Magnesium Total Bilirubin AST ALT Alkaline Phosphatase Total Protein Albumin Globulin Albumin/Globulin Ratio Misc Test Result See Sep Rpt 07/18/24 04:51 Puncture Site ABG pH ABG pCO2 ABG pO2 ABG HCO3 ABG O2 Saturation ABG Base Excess FiO2 Sodium 152 H Potassium 3.4 D Chloride 100 Carbon Dioxide > 40.0 H Anion Gap 12 BUN 34 H Creatinine 1.0 Estim Creat Clear Calc 90.4 eGFR > 60 BUN/Creatinine Ratio 34 H Glucose 102 Calculated Osmolality 309 H Calcium 9.0 Corrected Calcium 9.9 Phosphorus 3.5 Magnesium 2.0 Total Bilirubin 0.2 L AST 149 H ALT 123 H Alkaline Phosphatase 316 H D Total Protein 5.8 Albumin 2.9 L Globulin 2.9 Albumin/Globulin Ratio 1.0 L Misc Test Result ABG Interpretation ABG results: 05/27/24 05/29/24 05/29/24 23:37 10:44 22:08 ABG pH 7.51 H 7.50 H 7.48 H ABG pCO2 28 L 32 32 ABG pO2 75 L 79 L 145 H D ABG HCO3 23 25 24 ABG O2 Saturation 96 95 98 ABG Base Excess 0 2 1 VBG pH VBG pCO2 VBG pO2 VBG Base Excess 05/30/24 05/31/24 06/04/24 08:45 04:54 02:10 ABG pH 7.47 H 7.45 7.45 ABG pCO2 35 38 36 ABG pO2 86 D 82 L 139 H ABG HCO3 26 26 25 ABG O2 Saturation 97 96 98 ABG Base Excess 2 2 1 VBG pH VBG pCO2 VBG pO2 VBG Base Excess 06/04/24 06/05/24 06/05/24 18:16 11:36 12:59 ABG pH 7.44 7.11 L* D 7.20 L ABG pCO2 36 94 H* D 68 H D ABG pO2 80 L D 150 H D 121 H D ABG HCO3 24 30 H 26 ABG O2 Saturation 94 97 97 ABG Base Excess 0 -2 -3 VBG pH VBG pCO2 VBG pO2 VBG Base Excess 06/05/24 06/06/24 06/06/24 19:25 04:13 15:27 ABG pH 7.22 L 7.27 L 7.30 L ABG pCO2 64 H 57 H 60 H ABG pO2 122 H 153 H D 74 L D ABG HCO3 26 26 29 H ABG O2 Saturation 97 99 H 92 ABG Base Excess -3 -2 2 VBG pH VBG pCO2 VBG pO2 VBG Base Excess 06/07/24 06/07/24 06/08/24 03:55 09:59 04:20 ABG pH 7.41 D 7.43 7.45 ABG pCO2 56 H 55 H 50 H ABG pO2 293 H D 78 L D 75 L ABG HCO3 36 H 37 H 35 H ABG O2 Saturation 99 H 95 94 ABG Base Excess 10 H 11 H 10 H VBG pH VBG pCO2 VBG pO2 VBG Base Excess 06/08/24 06/08/24 06/08/24 11:05 11:50 13:18 ABG pH 7.17 L* D 7.10 L* 7.15 L* ABG pCO2 95 H* D 115 H* D 88 H* D ABG pO2 89 75 L 72 L ABG HCO3 34 H 36 H 31 H ABG O2 Saturation 92 84 L 85 L ABG Base Excess 3 4 H 0 VBG pH VBG pCO2 VBG pO2 VBG Base Excess 06/08/24 06/09/24 06/09/24 17:02 01:33 03:15 ABG pH 7.18 L* 7.22 L 7.27 L ABG pCO2 50 H D 91 H* D 82 H* ABG pO2 82 L 105 D 86 ABG HCO3 19 L 37 H 38 H ABG O2 Saturation 93 97 95 ABG Base Excess -9 L 7 H 9 H VBG pH VBG pCO2 VBG pO2 VBG Base Excess 06/09/24 06/09/24 06/10/24 05:08 12:52 04:40 ABG pH 7.31 L 7.33 L 7.30 L ABG pCO2 75 H* 57 H D 78 H* D ABG pO2 97 158 H D 65 L D ABG HCO3 38 H 30 H 38 H ABG O2 Saturation 97 99 H 90 L ABG Base Excess 10 H 3 9 H VBG pH VBG pCO2 VBG pO2 VBG Base Excess 06/10/24 06/11/24 06/12/24 09:40 04:19 04:15 ABG pH 7.27 L 7.35 7.48 H D ABG pCO2 88 H* D 86 H* 63 H D ABG pO2 65 L 70 L 76 L ABG HCO3 40 H 48 H 47 H ABG O2 Saturation 89 L 93 95 ABG Base Excess 10 H 19 H 21 H VBG pH VBG pCO2 VBG pO2 VBG Base Excess 06/13/24 06/14/24 06/15/24 07:22 04:32 03:45 ABG pH 7.46 H 7.48 H 7.46 H ABG pCO2 56 H 40 D 37 ABG pO2 80 L 64 L 71 L ABG HCO3 39 H 30 H 27 H ABG O2 Saturation 95 92 94 ABG Base Excess 13 H 6 H 3 VBG pH VBG pCO2 VBG pO2 VBG Base Excess 06/15/24 06/15/24 06/15/24 10:17 12:20 14:20 ABG pH 7.01 L* D 7.00 L* 7.03 L* ABG pCO2 122 H* D 130 H* 125 H* ABG pO2 91 D 88 82 L ABG HCO3 31 H 32 H 33 H ABG O2 Saturation 88 L 88 L 87 L ABG Base Excess -3 -2 -1 VBG pH VBG pCO2 VBG pO2 VBG Base Excess 06/15/24 06/15/24 06/16/24 15:55 20:39 00:35 ABG pH 7.03 L* 7.08 L* 7.10 L* ABG pCO2 121 H* 116 H* 118 H* ABG pO2 99 117 H 102 ABG HCO3 32 H 34 H 37 H ABG O2 Saturation 93 97 96 ABG Base Excess -1 2 4 H VBG pH VBG pCO2 VBG pO2 VBG Base Excess 06/16/24 06/16/24 06/17/24 04:45 08:55 05:06 ABG pH 7.17 L* 7.28 L D 7.33 L ABG pCO2 112 H* 88 H* D 96 H* ABG pO2 155 H D 98 D 126 H D ABG HCO3 41 H 41 H 50 H ABG O2 Saturation 99 H 98 99 H ABG Base Excess 9 H 12 H 21 H VBG pH VBG pCO2 VBG pO2 VBG Base Excess 06/17/24 06/17/24 06/18/24 10:58 13:55 04:16 ABG pH 7.29 L 7.29 L 7.33 L ABG pCO2 106 H* D 106 H* 86 H* D ABG pO2 58 L* D 61 L 77 L ABG HCO3 51 H 51 H 45 H ABG O2 Saturation 87 L 88 L 95 ABG Base Excess 21 H 21 H 17 H VBG pH VBG pCO2 VBG pO2 VBG Base Excess 06/19/24 06/20/24 06/21/24 04:18 04:49 04:06 ABG pH 7.42 7.36 7.44 ABG pCO2 63 H D 74 H* D 61 H D ABG pO2 66 L 55 L* 202 H D ABG HCO3 41 H 42 H 42 H ABG O2 Saturation 93 87 L 100 H ABG Base Excess 15 H 14 H 16 H VBG pH VBG pCO2 VBG pO2 VBG Base Excess 06/22/24 06/23/24 06/24/24 04:18 04:29 04:25 ABG pH 7.45 7.46 H 7.29 L D ABG pCO2 57 H 53 H 80 H* D ABG pO2 60 L D 99 D 88 ABG HCO3 40 H 38 H 38 H ABG O2 Saturation 91 99 H 96 ABG Base Excess 14 H 13 H 9 H VBG pH VBG pCO2 VBG pO2 VBG Base Excess 06/24/24 06/25/24 06/25/24 08:50 05:13 11:02 ABG pH 7.40 D 7.46 H Cancelled ABG pCO2 61 H D 53 H Cancelled ABG pO2 110 H D 66 L D Cancelled ABG HCO3 38 H 38 H Cancelled ABG O2 Saturation 99 H 94 Cancelled ABG Base Excess 12 H 13 H Cancelled VBG pH VBG pCO2 VBG pO2 VBG Base Excess 06/25/24 06/26/24 06/26/24 15:53 04:13 11:40 ABG pH 7.39 7.41 7.46 H ABG pCO2 53 H 48 43 ABG pO2 55 L* 58 L* 58 L* ABG HCO3 32 H 30 H 31 H ABG O2 Saturation 86 L 89 L 92 ABG Base Excess 6 H 5 H 6 H VBG pH VBG pCO2 VBG pO2 VBG Base Excess 06/27/24 06/28/24 06/28/24 04:17 04:24 06:22 ABG pH 7.48 H 7.27 L D 7.22 L ABG pCO2 39 72 H* D 83 H* D ABG pO2 49 L* 71 L D 82 L ABG HCO3 29 H 33 H 34 H ABG O2 Saturation 87 L 93 95 ABG Base Excess 5 H 5 H 4 H VBG pH VBG pCO2 VBG pO2 VBG Base Excess 06/28/24 06/29/24 06/30/24 10:18 04:21 07:57 ABG pH 7.32 L D 7.41 7.41 ABG pCO2 64 H D 63 H 62 H ABG pO2 76 L 81 L 59 L* D ABG HCO3 33 H 40 H 40 H ABG O2 Saturation 95 97 88 L ABG Base Excess 6 H 14 H 13 H VBG pH VBG pCO2 VBG pO2 VBG Base Excess 07/02/24 07/03/24 07/04/24 04:05 04:45 04:11 ABG pH 7.46 H 7.43 7.38 ABG pCO2 53 H 58 H 67 H ABG pO2 77 L 100 D 73 L D ABG HCO3 38 H 39 H 40 H ABG O2 Saturation 96 98 94 ABG Base Excess 12 H 13 H 13 H VBG pH VBG pCO2 VBG pO2 VBG Base Excess 07/05/24 07/06/24 07/09/24 04:40 04:08 04:53 ABG pH 7.30 L 7.42 D 7.26 L ABG pCO2 87 H* D 67 H D 94 H* ABG pO2 132 H D 64 L D 149 H ABG HCO3 43 H 43 H 42 H ABG O2 Saturation 99 H 92 100 H ABG Base Excess 14 H 17 H 12 H VBG pH VBG pCO2 VBG pO2 VBG Base Excess 07/11/24 07/12/24 07/14/24 11:34 04:49 04:45 ABG pH 7.25 L 7.36 D ABG pCO2 106 H* D 94 H* D ABG pO2 67 L D 59 L* ABG HCO3 46 H 53 H ABG O2 Saturation 91 90 L ABG Base Excess 16 H 24 H VBG pH 7.38 VBG pCO2 74 H VBG pO2 148 H VBG Base Excess 16 H 07/14/24 07/15/24 07/16/24 09:21 10:24 04:35 ABG pH 7.42 7.25 L D ABG pCO2 83 H* D 115 H* D ABG pO2 61 L 70 L ABG HCO3 54 H 50 H ABG O2 Saturation 92 93 ABG Base Excess 27 H 20 H VBG pH 7.39 VBG pCO2 79 H VBG pO2 40 VBG Base Excess 21 H 07/16/24 07/18/24 09:20 04:39 ABG pH 7.32 L 7.35 ABG pCO2 95 H* D 92 H* ABG pO2 59 L* 60 L ABG HCO3 49 H 50 H ABG O2 Saturation 92 89 L ABG Base Excess 20 H 22 H VBG pH VBG pCO2 VBG pO2 VBG Base Excess Assessment & Plan A&P Narrative pneumonia.pjp on bal noted. hiv. infection, newly discovered in a heterosexual man. can not r/o ivdu as a presumptive aquisition cause resp failure, hypoxic with ards noted. variable O2 status jo ann, resolved. acute febrile illness. cause uncertain.rx empirical, cx unrevealing rash on rt arm. cause uncertain. stabilized, rt arm only he has hiv, gf reportely was tested and is reportedly neg. ok for hiv rx as ordered. changed bactrim to once daily about 12/11. hiv rx is ongoing. if vl less than before we are ok. unless R is noted As noted before, not every one survives, he is only 39, but is newly discovered to have a very bad disease that is easier to manage if caught earlier. ok to maintain steroid rxn. for now. repeat cx noted. ok to be off flucon as cd4 >100 and crypto ag neg. will have to notify pt when he is awake of his findings. be sure that gf is tested as precaution. family states she is neg. lft's noted. can be caused by any of a number of factors. normal/neg bili noted. had a blip a few days ago and is trending favoably again today no change in rx noted await the tests ordered the other day. we usually do not repeat the hiv vl and cd4 for 3 mo after verifying s virus in system.so it may not be undetectable but should be lower than at onset. would not treat for cmv, am ok with a biopsy of the rt arm if felt needed. note neg syphilis screen and unilateral finding on arm await repeated hiv testing and R assay, to verify response to rx given variable status did not do R assay initially it seems as that result is not on file. vl and f/u labs pending from almost a week ago. likely delayed by the holiday. I will see again on thursday Time Spent With Patient Time: Total time spent is greater than 50% in coordination of care (as documented) at patient's floor/unit and/or counseling patient:
[2024-07-18] MEDS: ACETAzolaMIDE SOD 500 MG in SODIUM CHLORIDE 0.9% (P) 50 ML 100 MG IV (09:56)
[2024-07-18] MEDS: TRIMETHOPRIM 160 MG/SULFA 800 MG SUSP 20 ML UDC PO (10:05)
--- NOTE | 2024-07-18 10:20 | ESPR_ITS ---
Documentation for date of: 07/18/24 Subjective Subjective Interval history: 07/13/24: The patient was evaluated and examined at the bedside this morning. Overnight, the patient was having severe tremors, and was started on Precedex drip, initially tremors resolved but later required midazolam 2 mg IV x 1 followed by midazolam 4 mg IV x 1 which resolved his tremors. He is still tachycardic in 110s. We will continue with the volume control setting at this point and start him on SIMV with TV 500cc, PS 15, PEEP 10 and RR 10 in the evening. We will continue with phenobarbital 60 Mg 3 times daily, decreased clonazepam to 0.5 Mg 3 times daily, continue with Precedex drip, and increased the dose of gabapentin to 400 Mg twice daily. We will do lab work every 72 hours. The plan is to try with SAT in a couple of days. 07/14/24: The patient was evaluated and examined at the bedside this morning. Patient did not had any overnight events. We have discontinued all IV sedatives, and we decreased the frequency of doses of phenobarbital 60 Mg twice daily, clonazepam 0.5 Mg twice daily, and will continue gabapentin 400 Mg twice daily along with methadone 20 Mg 3 times daily. Lung compliance seems to be improving. His white count was 15.1, ABG done revealed pCO2 83, bicarb 54 with phosphorus 2.3. Phosphorus and magnesium was repleted. Liver enzymes trending down. We ordered EEG to evaluate for any further anoxic brain injury. We will try to get SAT in a couple of days. 07/15/2024: The patient was evaluated and examined at the bedside this morning. No acute overnight events. We gave 1 dose of phenobarbital 30 Mg and stopped it. Clonazepam dose was decreased down to 0.25 Mg twice daily, we will continue with gabapentin 400 Mg twice daily and methadone was decreased to 15 Mg 3 times daily. Lung compliance seems to be improving, white count trending down, hemoglobin was 6.9 and 1 unit PRBC was ordered. VBG revealed pCO2 of 79, pO2 40 and pH 7.39. Mild elevation in liver enzymes, we will continue to monitor. EEG was significant for diffuse slowing of waveforms, but official reading pending. 07/16/2024: Patient seen and examined at bedside. No overnight events. Patient responsive to painful stimuli, opens eyes. Patient has decreasing urine output, Lasix 40 ordered. Kayexalate given for potassium 5.4. Patietn on pressure support overnight, morning ABG showed pH 7.25, pCO2 115, pO2 70. Changed to SIVM, repeat ABG showed pH 7.32, pCO2 95, pO2 59. 07/17/2024: The patient was seen and examined at the bedside. No overnight events. Patient has been still responsive to painful stimuli, tries to open his eyes when asked. Labs were significant for decreasing white count to 11.0, hemoglobin 7.4, sodium 147, potassium 3.0 was repleted with 40 mEq oral KCl, AST/ALT mildly elevated 151/123 with ALP 382. We decreased the methadone dose to 10 Mg 3 times daily, and we will keep continuing gabapentin 400 Mg twice daily. Modafinil 100 Mg daily was started to wake him up. 07/18/2024; Patient seen and examined by bedside, no overnight events reported. Continues to be stable and saturating well on same ventilator settings of SIMV, RR 15, TV 500, PS 10, and FiO2 of 70%. Labs noted for hypernatremia with Na 152, HCo3>40, ABG pH 7.35, paCO2 92 and SaO2 90%, Continue patient on same medication regimen with plan to decrease Methylprednisolone to 5 starting on 07/20/24, will also continue patient on Modafinil and start patient on anabolic steroid. Increased patient's free water flushes to 100cc q6hr from 50, gently increasing not to overload patient. Continue patient also on Acetazolamide twice daily for one day more. Continue to correct electrolytes as needed. shelter plan to send patient to LTAC once more alert. Exam Vital Signs Temp Pulse Resp BP Pulse Ox O2 Del Method O2 Flow Rate 98.2 F 114 H 33 H 106/61 92 L Mechanical Ventilation 70 07/18/24 08:00 07/18/24 09:00 07/17/24 22:00 07/18/24 09:00 07/18/24 09:00 07/18/24 09:00 07/15/24 17:34 FiO2 70 07/18/24 09:00 Narrative Exam GEN: Critically ill, not acutely distressed, mechanically ventilated on po sedation in process of complete stopping. Neuro: Reactive to verbal stimuli with eye opening only. HEENT: NCAT, tracheostomy tube on appropriate position. Pupils sluggish but reactive. CVS: Tachycardic, no M/R/G. No JVD Respi: Mechanically ventilated, b/l breath sounds heard, significant rhonchi in all lung rosas ABD: Soft, no grimace to palpation, bowel sounds present in all 4 quadrants, PEG tube in appropriate place Skin: warm, dry and intact. Extremities: Pulses 2+ in all extremities, bilateral upper extremity 2+ edema, ruptured vesicles 1-2 cm on the rt forearm surface that have been healing. Objective Labs 07/19/24 07:54 07/19/24 07:54 Labs: Laboratory Results - last 24 hr 07/10/24 07/17/24 07/18/24 04:39 20:35 04:39 Puncture Site Left Radial ABG pH 7.35 ABG pCO2 92 H* ABG pO2 60 L ABG HCO3 50 H ABG O2 Saturation 89 L ABG Base Excess 22 H FiO2 70 Sodium 149 H Potassium 4.6 D Chloride 98 Carbon Dioxide > 40.0 H Anion Gap 11 BUN 33 H Creatinine 0.9 Estim Creat Clear Calc 100.4 eGFR > 60 BUN/Creatinine Ratio 37 H Glucose 94 Calculated Osmolality 303 H Calcium 9.1 Corrected Calcium Phosphorus Magnesium Total Bilirubin AST ALT Alkaline Phosphatase Total Protein Albumin Globulin Albumin/Globulin Ratio Misc Test Result See Sep Rpt 07/18/24 04:51 Puncture Site ABG pH ABG pCO2 ABG pO2 ABG HCO3 ABG O2 Saturation ABG Base Excess FiO2 Sodium 152 H Potassium 3.4 D Chloride 100 Carbon Dioxide > 40.0 H Anion Gap 12 BUN 34 H Creatinine 1.0 Estim Creat Clear Calc 90.4 eGFR > 60 BUN/Creatinine Ratio 34 H Glucose 102 Calculated Osmolality 309 H Calcium 9.0 Corrected Calcium 9.9 Phosphorus 3.5 Magnesium 2.0 Total Bilirubin 0.2 L AST 149 H ALT 123 H Alkaline Phosphatase 316 H D Total Protein 5.8 Albumin 2.9 L Globulin 2.9 Albumin/Globulin Ratio 1.0 L Misc Test Result ABG Interpretation ABG results: 05/27/24 05/29/24 05/29/24 23:37 10:44 22:08 ABG pH 7.51 H 7.50 H 7.48 H ABG pCO2 28 L 32 32 ABG pO2 75 L 79 L 145 H D ABG HCO3 23 25 24 ABG O2 Saturation 96 95 98 ABG Base Excess 0 2 1 VBG pH VBG pCO2 VBG pO2 VBG Base Excess 05/30/24 05/31/24 06/04/24 08:45 04:54 02:10 ABG pH 7.47 H 7.45 7.45 ABG pCO2 35 38 36 ABG pO2 86 D 82 L 139 H ABG HCO3 26 26 25 ABG O2 Saturation 97 96 98 ABG Base Excess 2 2 1 VBG pH VBG pCO2 VBG pO2 VBG Base Excess 06/04/24 06/05/24 06/05/24 18:16 11:36 12:59 ABG pH 7.44 7.11 L* D 7.20 L ABG pCO2 36 94 H* D 68 H D ABG pO2 80 L D 150 H D 121 H D ABG HCO3 24 30 H 26 ABG O2 Saturation 94 97 97 ABG Base Excess 0 -2 -3 VBG pH VBG pCO2 VBG pO2 VBG Base Excess 06/05/24 06/06/24 06/06/24 19:25 04:13 15:27 ABG pH 7.22 L 7.27 L 7.30 L ABG pCO2 64 H 57 H 60 H ABG pO2 122 H 153 H D 74 L D ABG HCO3 26 26 29 H ABG O2 Saturation 97 99 H 92 ABG Base Excess -3 -2 2 VBG pH VBG pCO2 VBG pO2 VBG Base Excess 06/07/24 06/07/24 06/08/24 03:55 09:59 04:20 ABG pH 7.41 D 7.43 7.45 ABG pCO2 56 H 55 H 50 H ABG pO2 293 H D 78 L D 75 L ABG HCO3 36 H 37 H 35 H ABG O2 Saturation 99 H 95 94 ABG Base Excess 10 H 11 H 10 H VBG pH VBG pCO2 VBG pO2 VBG Base Excess 06/08/24 06/08/24 06/08/24 11:05 11:50 13:18 ABG pH 7.17 L* D 7.10 L* 7.15 L* ABG pCO2 95 H* D 115 H* D 88 H* D ABG pO2 89 75 L 72 L ABG HCO3 34 H 36 H 31 H ABG O2 Saturation 92 84 L 85 L ABG Base Excess 3 4 H 0 VBG pH VBG pCO2 VBG pO2 VBG Base Excess 06/08/24 06/09/24 06/09/24 17:02 01:33 03:15 ABG pH 7.18 L* 7.22 L 7.27 L ABG pCO2 50 H D 91 H* D 82 H* ABG pO2 82 L 105 D 86 ABG HCO3 19 L 37 H 38 H ABG O2 Saturation 93 97 95 ABG Base Excess -9 L 7 H 9 H VBG pH VBG pCO2 VBG pO2 VBG Base Excess 06/09/24 06/09/24 06/10/24 05:08 12:52 04:40 ABG pH 7.31 L 7.33 L 7.30 L ABG pCO2 75 H* 57 H D 78 H* D ABG pO2 97 158 H D 65 L D ABG HCO3 38 H 30 H 38 H ABG O2 Saturation 97 99 H 90 L ABG Base Excess 10 H 3 9 H VBG pH VBG pCO2 VBG pO2 VBG Base Excess 06/10/24 06/11/24 06/12/24 09:40 04:19 04:15 ABG pH 7.27 L 7.35 7.48 H D ABG pCO2 88 H* D 86 H* 63 H D ABG pO2 65 L 70 L 76 L ABG HCO3 40 H 48 H 47 H ABG O2 Saturation 89 L 93 95 ABG Base Excess 10 H 19 H 21 H VBG pH VBG pCO2 VBG pO2 VBG Base Excess 06/13/24 06/14/24 06/15/24 07:22 04:32 03:45 ABG pH 7.46 H 7.48 H 7.46 H ABG pCO2 56 H 40 D 37 ABG pO2 80 L 64 L 71 L ABG HCO3 39 H 30 H 27 H ABG O2 Saturation 95 92 94 ABG Base Excess 13 H 6 H 3 VBG pH VBG pCO2 VBG pO2 VBG Base Excess 06/15/24 06/15/24 06/15/24 10:17 12:20 14:20 ABG pH 7.01 L* D 7.00 L* 7.03 L* ABG pCO2 122 H* D 130 H* 125 H* ABG pO2 91 D 88 82 L ABG HCO3 31 H 32 H 33 H ABG O2 Saturation 88 L 88 L 87 L ABG Base Excess -3 -2 -1 VBG pH VBG pCO2 VBG pO2 VBG Base Excess 06/15/24 06/15/24 06/16/24 15:55 20:39 00:35 ABG pH 7.03 L* 7.08 L* 7.10 L* ABG pCO2 121 H* 116 H* 118 H* ABG pO2 99 117 H 102 ABG HCO3 32 H 34 H 37 H ABG O2 Saturation 93 97 96 ABG Base Excess -1 2 4 H VBG pH VBG pCO2 VBG pO2 VBG Base Excess 06/16/24 06/16/24 06/17/24 04:45 08:55 05:06 ABG pH 7.17 L* 7.28 L D 7.33 L ABG pCO2 112 H* 88 H* D 96 H* ABG pO2 155 H D 98 D 126 H D ABG HCO3 41 H 41 H 50 H ABG O2 Saturation 99 H 98 99 H ABG Base Excess 9 H 12 H 21 H VBG pH VBG pCO2 VBG pO2 VBG Base Excess 06/17/24 06/17/24 06/18/24 10:58 13:55 04:16 ABG pH 7.29 L 7.29 L 7.33 L ABG pCO2 106 H* D 106 H* 86 H* D ABG pO2 58 L* D 61 L 77 L ABG HCO3 51 H 51 H 45 H ABG O2 Saturation 87 L 88 L 95 ABG Base Excess 21 H 21 H 17 H VBG pH VBG pCO2 VBG pO2 VBG Base Excess 06/19/24 06/20/24 06/21/24 04:18 04:49 04:06 ABG pH 7.42 7.36 7.44 ABG pCO2 63 H D 74 H* D 61 H D ABG pO2 66 L 55 L* 202 H D ABG HCO3 41 H 42 H 42 H ABG O2 Saturation 93 87 L 100 H ABG Base Excess 15 H 14 H 16 H VBG pH VBG pCO2 VBG pO2 VBG Base Excess 06/22/24 06/23/24 06/24/24 04:18 04:29 04:25 ABG pH 7.45 7.46 H 7.29 L D ABG pCO2 57 H 53 H 80 H* D ABG pO2 60 L D 99 D 88 ABG HCO3 40 H 38 H 38 H ABG O2 Saturation 91 99 H 96 ABG Base Excess 14 H 13 H 9 H VBG pH VBG pCO2 VBG pO2 VBG Base Excess 06/24/24 06/25/24 06/25/24 08:50 05:13 11:02 ABG pH 7.40 D 7.46 H Cancelled ABG pCO2 61 H D 53 H Cancelled ABG pO2 110 H D 66 L D Cancelled ABG HCO3 38 H 38 H Cancelled ABG O2 Saturation 99 H 94 Cancelled ABG Base Excess 12 H 13 H Cancelled VBG pH VBG pCO2 VBG pO2 VBG Base Excess 06/25/24 06/26/24 06/26/24 15:53 04:13 11:40 ABG pH 7.39 7.41 7.46 H ABG pCO2 53 H 48 43 ABG pO2 55 L* 58 L* 58 L* ABG HCO3 32 H 30 H 31 H ABG O2 Saturation 86 L 89 L 92 ABG Base Excess 6 H 5 H 6 H VBG pH VBG pCO2 VBG pO2 VBG Base Excess 06/27/24 06/28/24 06/28/24 04:17 04:24 06:22 ABG pH 7.48 H 7.27 L D 7.22 L ABG pCO2 39 72 H* D 83 H* D ABG pO2 49 L* 71 L D 82 L ABG HCO3 29 H 33 H 34 H ABG O2 Saturation 87 L 93 95 ABG Base Excess 5 H 5 H 4 H VBG pH VBG pCO2 VBG pO2 VBG Base Excess 06/28/24 06/29/24 06/30/24 10:18 04:21 07:57 ABG pH 7.32 L D 7.41 7.41 ABG pCO2 64 H D 63 H 62 H ABG pO2 76 L 81 L 59 L* D ABG HCO3 33 H 40 H 40 H ABG O2 Saturation 95 97 88 L ABG Base Excess 6 H 14 H 13 H VBG pH VBG pCO2 VBG pO2 VBG Base Excess 07/02/24 07/03/24 07/04/24 04:05 04:45 04:11 ABG pH 7.46 H 7.43 7.38 ABG pCO2 53 H 58 H 67 H ABG pO2 77 L 100 D 73 L D ABG HCO3 38 H 39 H 40 H ABG O2 Saturation 96 98 94 ABG Base Excess 12 H 13 H 13 H VBG pH VBG pCO2 VBG pO2 VBG Base Excess 07/05/24 07/06/24 07/09/24 04:40 04:08 04:53 ABG pH 7.30 L 7.42 D 7.26 L ABG pCO2 87 H* D 67 H D 94 H* ABG pO2 132 H D 64 L D 149 H ABG HCO3 43 H 43 H 42 H ABG O2 Saturation 99 H 92 100 H ABG Base Excess 14 H 17 H 12 H VBG pH VBG pCO2 VBG pO2 VBG Base Excess 07/11/24 07/12/24 07/14/24 11:34 04:49 04:45 ABG pH 7.25 L 7.36 D ABG pCO2 106 H* D 94 H* D ABG pO2 67 L D 59 L* ABG HCO3 46 H 53 H ABG O2 Saturation 91 90 L ABG Base Excess 16 H 24 H VBG pH 7.38 VBG pCO2 74 H VBG pO2 148 H VBG Base Excess 16 H 07/14/24 07/15/24 07/16/24 09:21 10:24 04:35 ABG pH 7.42 7.25 L D ABG pCO2 83 H* D 115 H* D ABG pO2 61 L 70 L ABG HCO3 54 H 50 H ABG O2 Saturation 92 93 ABG Base Excess 27 H 20 H VBG pH 7.39 VBG pCO2 79 H VBG pO2 40 VBG Base Excess 21 H 07/16/24 07/18/24 09:20 04:39 ABG pH 7.32 L 7.35 ABG pCO2 95 H* D 92 H* ABG pO2 59 L* 60 L ABG HCO3 49 H 50 H ABG O2 Saturation 92 89 L ABG Base Excess 20 H 22 H VBG pH VBG pCO2 VBG pO2 VBG Base Excess Quality Measures Quality Measures sepsis Current suspected stage: sepsis (Resolved) Possible source: pulmonary, GI tract/intra-abdominal, genitourinary and skin/soft tissue Blood cultures ordered: yes Antibiotic ordered: No Assessment & Plan Assessment Current Active Medications: Generic Name Dose Route Start Last Admin Trade Name Freq PRN Reason Stop Dose Admin Acetaminophen 650 mg 06/26/24 15:16 07/15/24 00:37 Acetaminophen Muinra 325 Mg/10 Ml Udc GT 07/26/24 15:15 650 mg Q4HR PRN Administration Pain Or Fever > 100.3 Artificial Tears 1 drop 06/18/24 12:00 07/18/24 05:15 Artificial Tears 225 Drop/15 Ml Btl BOTH EYES 07/18/24 11:59 1 drop QID JUAN JOSE Administration Aspirin 81 mg 07/11/24 09:30 07/18/24 08:20 Aspirin 81 Mg Chew PO 08/08/24 10:59 81 mg QDAY JUAN JOSE Administration Atorvastatin Calcium 80 mg 07/10/24 21:00 07/17/24 21:40 Atorvastatin Calcium 20 Mg Tablet PO 08/09/24 20:59 80 mg HS JUAN JOSE Administration Calcium Carbonate 600 mg 06/28/24 13:00 07/17/24 15:12 Calcium Carbonate 600 Mg Tablet GT 07/28/24 12:59 600 mg QDAY@1300 JUAN JOSE Administration Docusate Sodium 100 mg 06/25/24 09:13 Docusate Sod Liqd 100 Mg/10 Ml Udc PO 07/22/24 08:59 BID PRN Constipation Protocol Emtricitabine/Tenofovir 1 tab 07/06/24 11:30 07/18/24 08:21 Emtricitabine 200 Mg/Tenofovir 300 Mg Tab (Non-Form) PO 08/19/24 14:33 1 tab QDAY JUAN JOSE Administration Enoxaparin Sodium 80 mg 07/15/24 21:00 07/18/24 08:20 Enoxaparin Sod Inj 80 Mg/0.8 Ml Syringe SC 10/11/24 08:00 80 mg BID JUAN JOSE Administration Ferrous Sulfate 300 mg 07/02/24 10:00 07/18/24 08:20 Ferrous Sulfate 300 Mg/5 Ml Udc GT 07/23/24 09:59 300 mg QDAY JUAN JOSE Administration Gabapentin 400 mg 07/13/24 21:00 07/18/24 08:20 Gabapentin 100 Mg Capsule GT 08/12/24 20:59 400 mg BID JUAN JOSE Administration Norepinephrine/Dextrose 8 mg in 250 mls @ 6.319 mls/hr 06/30/24 04:17 07/09/24 11:30 Levophed In D5w 8mg/250ml IV 07/30/24 04:16 0 mcg/kg/min .Q24H PRN 0 mls/hr PER PROTOCOL Titration Protocol 0.05 MCG/KG/MIN Acetazolamide Sodium 500 mg/ 50 mls @ 100 mls/hr 07/17/24 12:45 07/18/24 09:56 Sodium Chloride IV 07/18/24 12:44 100 mls/hr BID JUAN JOSE Administration Methadone HCl 10 mg 07/17/24 14:00 07/18/24 05:14 Methadone Hcl 10 Mg Tablet GT 07/22/24 13:59 10 mg Q8HR JUAN JOSE Administration Methylprednisolone 10 mg 07/18/24 09:00 07/18/24 08:22 Methylprednisolone 4 Mg Tablet PO 07/21/24 09:00 10 mg QDAY JUAN JOSE Administration Modafinil 100 mg 07/18/24 09:00 07/18/24 08:20 Modafinil 100 Mg Tablet PO 08/17/24 08:59 100 mg QDAY JUAN JOSE Administration Non-Formulary Medication 100 mg 07/18/24 10:13 Peramivir IV 07/18/24 10:14 X1 ONE Pantoprazole Sodium 40 mg 07/07/24 09:32 07/18/24 08:20 Pantoprazole Inj 40 Mg Vial IV 08/06/24 09:31 40 mg QDAY JUAN JOSE Administration Potassium Chloride 20 meq 07/17/24 21:00 07/18/24 08:20 Potassium Chloride 10% 20 Meq/15 Ml Udc GT 07/18/24 23:59 20 meq BID JUAN JOSE Administration Raltegravir 400 mg 07/06/24 11:30 07/18/24 08:22 Raltegravir 400 Mg Tablet NG 08/19/24 14:33 400 mg BID JUAN JOSE Administration Trimethoprim/Sulfamethoxazole 20 ml 07/18/24 11:00 07/18/24 10:05 Trimethoprim 160 Mg/Sulfa 800 Mg Susp 20 Ml Udc PO 07/25/24 10:59 20 ml QDAY@1100 JUAN JOSE Administration Plan 39-year-old male patient with no PMHx who initially presented to [facility] on 05/27/2024 with a chief complaint of shortness of breath and cough, with associated chills, body aches, generalized weakness, fever, and night sweats beginning weeks prior but progressively worsening over a few days is currently being treated for acute hypoxic respiratory failure secondary to PCP pneumonia that was complicated by ventilator associated pneumonia. Patient is currently on tracheostomy tube and mechanically ventilated. 07/18/2024; Patient seen and examined by bedside, no overnight events reported. Continues to be stable and saturating well on same ventilator settings of SIMV, RR 15, TV 500, PS 10, and FiO2 of 70%. Labs noted for hypernatremia with Na 152, HCo3>40, ABG pH 7.35, paCO2 92 and SaO2 90%, Continue patient on same medication regimen with plan to decrease Methylprednisolone to 5 starting on 07/20/24, will also continue patient on Modafinil and start patient on anabolic steroid. Increased patient's free water flushes to 100cc q6hr from 50, gently increasing not to overload patient. Continue patient also on Acetazolamide twice daily for one day more. Continue to correct electrolytes as needed. 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 NEURO Patient is sedated and mechanically ventilated through tracheostomy tube. 06/05/2024 Patient was intubated, sedated, and paralyzed for ARDS. -We decreased the methadone dose to 10 Mg 3 times daily, and we will keep continuing gabapentin 400 Mg twice daily. Modafinil 100 Mg daily was started to wake him up. #Rt Parietal ischemic Stroke MRI on 07/08 Large area of restricted diffusion in the left frontal parietal white matter and small foci in the right parietal white matter most consistent with acute infarction -On aspirin 81mg daily and atorvastatin 80mg daily at night. #Fever, resolved #Withdrawal syndrome, stable Multiple cultures has been negative -Repeat influenza and COVID test on 07/04 negative -Repeat blood, urine and sputum culture are negative -Treat underlying condition -Tylenol as needed CARDIO #Right subclavian and axillary vein DVT. -Doppler US right upper extremity 06/17/24: revealed RUE DVT -On Heparin Drip 06/17-07/09, On Enoxaparin 75mg BID 07/11- #Sinus tachycardia Tachycardia most likely secondary to acute respiratory distress syndrome contributed by withdrawal while tapering the dose of IV sedatives -Continue to treat underlying cause #Shock, resolved Most likely 2/2 sedation. BC has been negative and on appropriate antibiotics Patient presented with septic shock secondary to severe extensive bilateral pneumonia. After resolution of initial septic shock, patient developed new hypotension, tachycardia, tachypnea, fevers indicated of septic shock. -Pressor support as needed -Linezolid (started 06/27-07/04) -Meropenem (started 06/27-07/04) -Urine (06/27) showed resistant staph epi -Blood (06/27) showed resistant Staphylococcus haemolyticus -repeat blood cultures and urine cultures negative -taper down sedatives as tolerated PULM #Chronic hypoxic respiratory failure 2/2 # Acute respiratory distress syndrome in the setting of post PCP pneumonia state Secondary to #Bilateral pneumocystis jirovecii pneumonia, resolved #Healthcare associated pneumonia, resolved, resolved #Ventilator associated pneumonia, resolved #S/P Tracheostomy #Pneumomediastinum, resolved -ABG done on 07/14/24 showed improvement. On vent support -Titrate down FiO2 as tolerated GI GI prophylaxis: IV pantoprazole 40 Mg daily #Elevated LFTs 2/2 HIV DDx: adverse affect of drugs, we had discontinued oxycodone previously, and phenobarbitol Liver enzymes started trending down after discontinuing oxycodone and phenobarbitol. liver US 05/30/2024 showed normal gallbladder and hepatomegaly without lesions or evidence of obstructions. Hep panel negative. LFTs downtrending Plan: -Continue monitoring #Hypertriglyceridemia, down trending secondary to propofol use, -Discontinued propofol NEPHRO #WILL Patient has WILL likely 2/2 congestion -Diamox 500mg IV BID started due to -Monitor UOP and renal panel -Consider alternative to Bactrim #Central diabetes insipidus, resolved #Hypophosphatemia, repleted #Hypokalemia -Repleted with KCL 40 meq x1, -On 20meq BID Liquid KCL #Mild hyponatremia Secondary to SIADH due to acute hypoxic respiratory failure leading to pulmonary distress -Continue to monitor #Hyperphosphetemia, stable -on sevelamir 800mg TID and calcium carbonate 600mg daily #NAGMA #Primary Respiratory acidosis compensated by metabolic alkalosis Secondary to increased work of breathing and increased RR 2/2 chronic hypoxic respiratory failure and chronic respiratory distress syndrome in the setting of tapering down of IV sedatives -ABGs 07/12 pH of 7.25, pCO2 106, bicarb 46 -We will treat the underlying cause respiratory acidosis HEME #Leukocytosis Likely reactive as we are tapering down sedatives and is still on steroid #Microcytic anemia 2/2 STEPHY and Inflammatory anemia Stable, has not required any transfusions this admission thus far. Clinically no evidence of bleeding. Iron panel shows iron 17, TIBC 262, iron saturation 6, unsaturated iron binding 245. Peripheral blood film confirms microcytic hypochromic anemia with target cells. Also daily lab draws contributing. Patient required x1 PRBC for Hg 6.9. Plan: -Started on oral ferrous sulfate 300 Mg daily -Feraheme 510mg was given x1 on 07/15/24 -Monitor H&H. Transfusing for Hgb <7 #Thrombocytosis, resolved Likely reactive in the setting of withdrawal syndrome -Continue to monitor ENDO #Hypoglycemia, resolved ID #Bilateral pneumocystis pneumonia, resolved #Healthcare associated pneumonia, resolved #Ventilator associated pneumonia, resolved #PCP pneumonia prophylaxis Negative studies: Cocci IgM and IgG, Hepatitis panel, Syphilis, Legionella, H.flu, N.meningitidis, Strep B, Strep pneumoniae, COVID, RSV, Flu A & B. TB quantiferon GOLD-indeterminate, however 06/05 AFB negative, CMV IgM, cryptococcal antigen negative. G6PD levels came back normal for consideration of dapsone alternative to Bactrim if needed. Patient completed 5 day course of azithromycin, 16 days of Zosyn. See Pulm for timeline of antimicrobial coverage. On 06/27 patient developed new septic shock Plan: -Antibiotcs Bactrim for prevention of PCP pneumonia in the setting of CD4 count of 116 -Linezolid and meropenum restarted on 06/27/2024-07/04/24 -Urine ackerman port grew GPC, Staph epidermidis that is MDR, sensitive to linezolid. -Fungal cultures from BAL pending, follow-up on results -Blood cultures from 06/26/2024 and 06/27/2024, negative so far, cultures drawn on 06/29/2024 is pending -Follow up blood, sputum, and urine cultures were negative -Repeat blood, urine, sputum cultures were ordered on 07/07/2024- negative #AIDS/HIV Continue HAART regimen. Continue Bactrim 20ml PO daily for prophylaxis #IRIS---Resolved Tappering off steroids slowely. MSK #Elevated creatine kinase---Resolved. 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 DVT prophylaxis: On enoxaparin 80mg BID for treatment of right upper extremity DVT GI prophylaxis: Pantoprazole 40 mg IV qday Diet: Tube feeds Ackerman: No, condom cath Lines: Peripheral IV, removed rt femoral central line on 06/28/24 Antibiotics: Bactrim CODE STATUS: DNR/DNI Patient's plan of care discussed with attending Dr. Justin Magallanes, PGY-3 Attending Provider Attestation/Addendum Patient seen and examined with above resident, Rai Magallanes MD. I agree with the findings, assessment, and plan of care as documented except for any differences below. Patient continues to be slowly tapered off of sedatives. He has remained off IV sedation for multiple days now with signs of potential response to verbal stimuli. Patient with profound weakness likely in the setting of critical care myopathy/neuropathy. Continued on gabapentin and methadone with further slow weaning as able. Patient remains on high FiO2 and continue to wean this as tolerated. Is on appropriate heart therapy and Bactrim prophylaxis. Completion of steroid taper is ongoing with reduction scheduled and steroid regimen to baseline of none for prevention of IRIS. Patient is nearing ability to be transferred to long-term acute care for further management of his debility after prolonged critical illness including weaning from mechanical ventilation. Patient's family remains hopeful and is agreeable with ongoing plan of care including transfer to LTAC. Total critical care time: I personally spent 30 minutes for review of physiologic parameters, directing plan of care throughout the day, coordination of care with other specialties, and counseling patient's family at bedside. This is exclusive of time spent teaching housestaff or performing any separate billable procedures. 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 Patient continues to be at high risk for further morbidity and mortality requiring close monitoring in the intensive care setting.
--- NOTE | 2024-07-18 13:37 | PC.SS ---
Update: Patient Trach/PEG. Off IV sedation. Off pressors. Skin issues on ear and shearing on buttocks.
[2024-07-18] MEDS: CALCIUM CARBONATE 600 MG TABLET GT (14:12)
--- NOTE | 2024-07-18 14:39 | PC.SS ---
Updated clinicals submitted to [facility]. OFFAL ROLLER confirmed with [facility] staff, [facility] ; authorization will be required for placement.
--- NOTE | 2024-07-18 16:06 | PC.SS ---
TOBACCO SHAKER informed that patient should be stable for transport to [facility] later this week.
[2024-07-18] MEDS: ATORVASTATIN CALCIUM 20 MG TABLET 80 MG PO (21:25)
[2024-07-19] VITALS (31 sets, daily range): BP systolic 80–124; BP diastolic 60–79; PULSE 104–119; RESP 17–33; TEMP 37.1–37.7; O2SAT 92–99; BMI 25.3
[2024-07-19] MEDS: METHADONE HCL 10 MG TABLET GT ×2 (06:24→17:51)
[2024-07-19 08:16] LABS: Basophils % (Auto) 0 % (0-2.5); Eosinophils # (Auto) 0.2 Thou/mm3 (0.0-0.5); Eosinophils % (Auto) 2 % (0-10); Hematocrit 26.7 % (41.0-53.0); Immature Granulocytes % (Auto) 1 % (0-0); Immature Granulocytes Auto 0.12 Thou/mm3 (0.00-0.00); Lymphocytes % (Auto) 10 % (10-50); Mean Corpuscular HGB Conc 27.3 g/dl (31.0-37.0); Mean Corpuscular Hemoglobin 26.2 pg (25.0-35.0); Mean Corpuscular Volume 96 fL (80-100); Monocytes % (Auto) 10 % (0-12); Neutrophils # (Auto) 8.2 Thou/mm3 (1.8-7.7); Neutrophils % (Auto) 78 % (37-80); Nucleated Red Blood Cell # 0.04 Thou/mm3 (0.00-0.00); Nucleated Red Blood Cell % 0 /100 WBC (0); Platelet Count 264 Thou/mm3 (140-440); RDW Standard Deviation 80.4 fL (35.1-43.9); Red Blood Count 2.79 Miln/mm3 (4.50-5.90); White Blood Count 10.6 Thou/mm3 (3.8-10.6)
[2024-07-19 08:18] LABS: Hemoglobin 7.3 g/dL (13.5-16.0)
[2024-07-19] MEDS: GABAPENTIN 100 MG CAPSULE 400 MG GT ×2 (08:37→20:42)
[2024-07-19] MEDS: RALTEGRAVIR 400 MG TABLET NG ×2 (08:37→20:42)
[2024-07-19] MEDS: Ferrous Sulfate 300 MG/5 ML UDC GT (08:39)
[2024-07-19] MEDS: ENOXAPARIN SOD INJ 80 MG/0.8 ML SYRINGE SC ×2 (08:39→20:43)
[2024-07-19] MEDS: modafiniL 100 MG TABLET PO (08:39)
[2024-07-19] MEDS: ASPIRIN 81 MG CHEW PO (08:39)
[2024-07-19] MEDS: methylPREDNISolone 4 MG TABLET 10 MG PO (08:40)
[2024-07-19] MEDS: EMTRICITABINE 200 MG/TENOFOVIR 300 MG TAB (NON-FORM) 1 TAB PO (08:40)
[2024-07-19] MEDS: PANTOPRAZOLE INJ 40 MG VIAL IV (08:40)
[2024-07-19 08:45] LABS: Alanine Aminotransferase 150 U/L (10-49); Albumin, Serum 3.1 gm/dL (3.5-5.0); Alkaline Phosphatase 307 U/L (46-116); Anion Gap 9 (7-16); Aspartate Amino Transferase 164 U/L (0-34); BUN/Creatinine Ratio 43 Ratio (12-20); Bilirubin,Total < 0.2 mg/dL (0.3-1.2); Blood Urea Nitrogen 34 mg/dL (9-23); Calcium 8.6 mg/dL (8.3-10.6); Calcium (Corrected) 9.3 mg/dL (8.5-10.1); Carbon Dioxide > 40.0 mMol/L (20.0-31.0); Chloride 103 mMol/L (98-107); Creatinine (Component) 0.8 mg/dL (0.6-1.3); Glucose 104 mg/dL (74-106); Osmolality,Calculated 309 (275-295); Potassium 3.7 mMol/L (3.4-5.1); Sodium 152 mMol/L (136-145); Total Protein 6.1 gm/dL (5.7-8.2); eGFR > 60 See Note
[2024-07-19] MEDS: TRIMETHOPRIM 160 MG/SULFA 800 MG SUSP 20 ML UDC PO (10:10)
--- NOTE | 2024-07-19 10:31 | PD.RESPRO ---
Documentation for date of: 07/19/24 Subjective Subjective Interval history: 07/13/24: The patient was evaluated and examined at the bedside this morning. Overnight, the patient was having severe tremors, and was started on Precedex drip, initially tremors resolved but later required midazolam 2 mg IV x 1 followed by midazolam 4 mg IV x 1 which resolved his tremors. He is still tachycardic in 110s. We will continue with the volume control setting at this point and start him on SIMV with TV 500cc, PS 15, PEEP 10 and RR 10 in the evening. We will continue with phenobarbital 60 Mg 3 times daily, decreased clonazepam to 0.5 Mg 3 times daily, continue with Precedex drip, and increased the dose of gabapentin to 400 Mg twice daily. We will do lab work every 72 hours. The plan is to try with SAT in a couple of days. 07/14/24: The patient was evaluated and examined at the bedside this morning. Patient did not had any overnight events. We have discontinued all IV sedatives, and we decreased the frequency of doses of phenobarbital 60 Mg twice daily, clonazepam 0.5 Mg twice daily, and will continue gabapentin 400 Mg twice daily along with methadone 20 Mg 3 times daily. Lung compliance seems to be improving. His white count was 15.1, ABG done revealed pCO2 83, bicarb 54 with phosphorus 2.3. Phosphorus and magnesium was repleted. Liver enzymes trending down. We ordered EEG to evaluate for any further anoxic brain injury. We will try to get SAT in a couple of days. 07/15/2024: The patient was evaluated and examined at the bedside this morning. No acute overnight events. We gave 1 dose of phenobarbital 30 Mg and stopped it. Clonazepam dose was decreased down to 0.25 Mg twice daily, we will continue with gabapentin 400 Mg twice daily and methadone was decreased to 15 Mg 3 times daily. Lung compliance seems to be improving, white count trending down, hemoglobin was 6.9 and 1 unit PRBC was ordered. VBG revealed pCO2 of 79, pO2 40 and pH 7.39. Mild elevation in liver enzymes, we will continue to monitor. EEG was significant for diffuse slowing of waveforms, but official reading pending. 07/16/2024: Patient seen and examined at bedside. No overnight events. Patient responsive to painful stimuli, opens eyes. Patient has decreasing urine output, Lasix 40 ordered. Kayexalate given for potassium 5.4. Patietn on pressure support overnight, morning ABG showed pH 7.25, pCO2 115, pO2 70. Changed to SIVM, repeat ABG showed pH 7.32, pCO2 95, pO2 59. 07/17/2024: The patient was seen and examined at the bedside. No overnight events. Patient has been still responsive to painful stimuli, tries to open his eyes when asked. Labs were significant for decreasing white count to 11.0, hemoglobin 7.4, sodium 147, potassium 3.0 was repleted with 40 mEq oral KCl, AST/ALT mildly elevated 151/123 with ALP 382. We decreased the methadone dose to 10 Mg 3 times daily, and we will keep continuing gabapentin 400 Mg twice daily. Modafinil 100 Mg daily was started to wake him up. 07/18/2024; Patient seen and examined by bedside, no overnight events reported. Continues to be stable and saturating well on same ventilator settings of SIMV, RR 15, TV 500, PS 10, and FiO2 of 70%. Labs noted for hypernatremia with Na 152, HCo3>40, ABG pH 7.35, paCO2 92 and SaO2 90%, Continue patient on same medication regimen with plan to decrease Methylprednisolone to 5 starting on 07/20/24, will also continue patient on Modafinil and start patient on anabolic steroid. Increased patient's free water flushes to 100cc q6hr from 50, gently increasing not to overload patient. Continue patient also on Acetazolamide twice daily for one day more. Continue to correct electrolytes as needed. group home plan to send patient to LTAC once more alert. 07/19/2024; patient was seen and examined by bedside this morning, no acute events overnight reported, appears more reactive this morning with opening eyes and moving them toward voice direction, remains hemodynamically stable on mechanical ventilation with saturation of 94% on 70% FiO2. No significant change in CBC this morning from 2 days ago, CMP noted for stable hyponatremia at 152, HCO3> 40, and mild elevation LFTs. Continue patient on current regimen of HAART, Bactrim, modafinil, gabapentin, therapeutic enoxaparin, atorvastatin and aspirin. Patient's methadone dose was decreased to twice daily, continuing methylprednisolone at 10 mg p.o. daily until 01/02, after which we will transition to methylprednisolone 5 mg daily after that. Discussed with aids social worker to find placement for LTAC, search continues for accepting facility, family updated regarding patient's condition and management plan. Exam Vital Signs Temp Pulse Resp BP Pulse Ox O2 Del Method O2 Flow Rate 98.8 F 112 H 33 H 107/62 94 L Mechanical Ventilation 70 07/19/24 04:00 07/19/24 06:35 07/17/24 22:00 07/19/24 06:35 07/19/24 06:35 07/19/24 04:00 07/15/24 17:34 FiO2 70 07/19/24 06:28 Narrative Exam GEN: Critically ill, not acutely distressed, mechanically ventilated on po sedation in process of complete stopping. Neuro: Appears more reactive this morning, eye opening to voice with eye movements. HEENT: NCAT, tracheostomy tube on appropriate position. Pupils sluggish but reactive. CVS: Tachycardic, no M/R/G. No JVD Respi: Mechanically ventilated, b/l breath sounds heard, significant rhonchi in all lung rosas. ABD: Soft, no grimace to palpation, bowel sounds present in all 4 quadrants, PEG tube in appropriate place Skin: warm, dry and intact. Extremities: Pulses 2+ in all extremities, bilateral upper extremity 2+ edema, ruptured vesicles 1-2 cm on the rt forearm surface that have been healing. Objective Labs 07/19/24 07:54 07/19/24 07:54 Labs: Laboratory Results - last 24 hr 07/19/24 07:54 WBC 10.6 RBC 2.79 L Hgb 7.3 L Hct 26.7 L MCV 96 MCH 26.2 MCHC 27.3 L RDW Std Deviation 80.4 H Plt Count 264 Neut % (Auto) 78 Lymph % (Auto) 10 [place] % (Auto) 10 Eos % (Auto) 2 Baso % (Auto) 0 Neut # (Auto) 8.2 H Lymph # (Auto) 1.0 [place] # (Auto) 1.0 H Eos # (Auto) 0.2 Baso # (Auto) 0.0 Immature Gran # (Auto) 0.12 H Absolute Nucleated RBC 0.04 H Immature Gran % 1 H Nucleated RBC % 0 Sodium 152 H Potassium 3.7 Chloride 103 Carbon Dioxide > 40.0 H Anion Gap 9 BUN 34 H Creatinine 0.8 Estim Creat Clear Calc 113.0 eGFR > 60 BUN/Creatinine Ratio 43 H Glucose 104 Calculated Osmolality 309 H Calcium 8.6 Corrected Calcium 9.3 Total Bilirubin < 0.2 L AST 164 H ALT 150 H Alkaline Phosphatase 307 H Total Protein 6.1 Albumin 3.1 L Globulin 3.0 Albumin/Globulin Ratio 1.0 L ABG Interpretation ABG results: 05/27/24 05/29/24 05/29/24 23:37 10:44 22:08 ABG pH 7.51 H 7.50 H 7.48 H ABG pCO2 28 L 32 32 ABG pO2 75 L 79 L 145 H D ABG HCO3 23 25 24 ABG O2 Saturation 96 95 98 ABG Base Excess 0 2 1 VBG pH VBG pCO2 VBG pO2 VBG Base Excess 05/30/24 05/31/24 06/04/24 08:45 04:54 02:10 ABG pH 7.47 H 7.45 7.45 ABG pCO2 35 38 36 ABG pO2 86 D 82 L 139 H ABG HCO3 26 26 25 ABG O2 Saturation 97 96 98 ABG Base Excess 2 2 1 VBG pH VBG pCO2 VBG pO2 VBG Base Excess 06/04/24 06/05/24 06/05/24 18:16 11:36 12:59 ABG pH 7.44 7.11 L* D 7.20 L ABG pCO2 36 94 H* D 68 H D ABG pO2 80 L D 150 H D 121 H D ABG HCO3 24 30 H 26 ABG O2 Saturation 94 97 97 ABG Base Excess 0 -2 -3 VBG pH VBG pCO2 VBG pO2 VBG Base Excess 06/05/24 06/06/24 06/06/24 19:25 04:13 15:27 ABG pH 7.22 L 7.27 L 7.30 L ABG pCO2 64 H 57 H 60 H ABG pO2 122 H 153 H D 74 L D ABG HCO3 26 26 29 H ABG O2 Saturation 97 99 H 92 ABG Base Excess -3 -2 2 VBG pH VBG pCO2 VBG pO2 VBG Base Excess 06/07/24 06/07/24 06/08/24 03:55 09:59 04:20 ABG pH 7.41 D 7.43 7.45 ABG pCO2 56 H 55 H 50 H ABG pO2 293 H D 78 L D 75 L ABG HCO3 36 H 37 H 35 H ABG O2 Saturation 99 H 95 94 ABG Base Excess 10 H 11 H 10 H VBG pH VBG pCO2 VBG pO2 VBG Base Excess 06/08/24 06/08/24 06/08/24 11:05 11:50 13:18 ABG pH 7.17 L* D 7.10 L* 7.15 L* ABG pCO2 95 H* D 115 H* D 88 H* D ABG pO2 89 75 L 72 L ABG HCO3 34 H 36 H 31 H ABG O2 Saturation 92 84 L 85 L ABG Base Excess 3 4 H 0 VBG pH VBG pCO2 VBG pO2 VBG Base Excess 06/08/24 06/09/24 06/09/24 17:02 01:33 03:15 ABG pH 7.18 L* 7.22 L 7.27 L ABG pCO2 50 H D 91 H* D 82 H* ABG pO2 82 L 105 D 86 ABG HCO3 19 L 37 H 38 H ABG O2 Saturation 93 97 95 ABG Base Excess -9 L 7 H 9 H VBG pH VBG pCO2 VBG pO2 VBG Base Excess 06/09/24 06/09/24 06/10/24 05:08 12:52 04:40 ABG pH 7.31 L 7.33 L 7.30 L ABG pCO2 75 H* 57 H D 78 H* D ABG pO2 97 158 H D 65 L D ABG HCO3 38 H 30 H 38 H ABG O2 Saturation 97 99 H 90 L ABG Base Excess 10 H 3 9 H VBG pH VBG pCO2 VBG pO2 VBG Base Excess 06/10/24 06/11/24 06/12/24 09:40 04:19 04:15 ABG pH 7.27 L 7.35 7.48 H D ABG pCO2 88 H* D 86 H* 63 H D ABG pO2 65 L 70 L 76 L ABG HCO3 40 H 48 H 47 H ABG O2 Saturation 89 L 93 95 ABG Base Excess 10 H 19 H 21 H VBG pH VBG pCO2 VBG pO2 VBG Base Excess 06/13/24 06/14/24 06/15/24 07:22 04:32 03:45 ABG pH 7.46 H 7.48 H 7.46 H ABG pCO2 56 H 40 D 37 ABG pO2 80 L 64 L 71 L ABG HCO3 39 H 30 H 27 H ABG O2 Saturation 95 92 94 ABG Base Excess 13 H 6 H 3 VBG pH VBG pCO2 VBG pO2 VBG Base Excess 06/15/24 06/15/24 06/15/24 10:17 12:20 14:20 ABG pH 7.01 L* D 7.00 L* 7.03 L* ABG pCO2 122 H* D 130 H* 125 H* ABG pO2 91 D 88 82 L ABG HCO3 31 H 32 H 33 H ABG O2 Saturation 88 L 88 L 87 L ABG Base Excess -3 -2 -1 VBG pH VBG pCO2 VBG pO2 VBG Base Excess 06/15/24 06/15/24 06/16/24 15:55 20:39 00:35 ABG pH 7.03 L* 7.08 L* 7.10 L* ABG pCO2 121 H* 116 H* 118 H* ABG pO2 99 117 H 102 ABG HCO3 32 H 34 H 37 H ABG O2 Saturation 93 97 96 ABG Base Excess -1 2 4 H VBG pH VBG pCO2 VBG pO2 VBG Base Excess 06/16/24 06/16/24 06/17/24 04:45 08:55 05:06 ABG pH 7.17 L* 7.28 L D 7.33 L ABG pCO2 112 H* 88 H* D 96 H* ABG pO2 155 H D 98 D 126 H D ABG HCO3 41 H 41 H 50 H ABG O2 Saturation 99 H 98 99 H ABG Base Excess 9 H 12 H 21 H VBG pH VBG pCO2 VBG pO2 VBG Base Excess 06/17/24 06/17/24 06/18/24 10:58 13:55 04:16 ABG pH 7.29 L 7.29 L 7.33 L ABG pCO2 106 H* D 106 H* 86 H* D ABG pO2 58 L* D 61 L 77 L ABG HCO3 51 H 51 H 45 H ABG O2 Saturation 87 L 88 L 95 ABG Base Excess 21 H 21 H 17 H VBG pH VBG pCO2 VBG pO2 VBG Base Excess 06/19/24 06/20/24 06/21/24 04:18 04:49 04:06 ABG pH 7.42 7.36 7.44 ABG pCO2 63 H D 74 H* D 61 H D ABG pO2 66 L 55 L* 202 H D ABG HCO3 41 H 42 H 42 H ABG O2 Saturation 93 87 L 100 H ABG Base Excess 15 H 14 H 16 H VBG pH VBG pCO2 VBG pO2 VBG Base Excess 06/22/24 06/23/24 06/24/24 04:18 04:29 04:25 ABG pH 7.45 7.46 H 7.29 L D ABG pCO2 57 H 53 H 80 H* D ABG pO2 60 L D 99 D 88 ABG HCO3 40 H 38 H 38 H ABG O2 Saturation 91 99 H 96 ABG Base Excess 14 H 13 H 9 H VBG pH VBG pCO2 VBG pO2 VBG Base Excess 06/24/24 06/25/24 06/25/24 08:50 05:13 11:02 ABG pH 7.40 D 7.46 H Cancelled ABG pCO2 61 H D 53 H Cancelled ABG pO2 110 H D 66 L D Cancelled ABG HCO3 38 H 38 H Cancelled ABG O2 Saturation 99 H 94 Cancelled ABG Base Excess 12 H 13 H Cancelled VBG pH VBG pCO2 VBG pO2 VBG Base Excess 06/25/24 06/26/24 06/26/24 15:53 04:13 11:40 ABG pH 7.39 7.41 7.46 H ABG pCO2 53 H 48 43 ABG pO2 55 L* 58 L* 58 L* ABG HCO3 32 H 30 H 31 H ABG O2 Saturation 86 L 89 L 92 ABG Base Excess 6 H 5 H 6 H VBG pH VBG pCO2 VBG pO2 VBG Base Excess 06/27/24 06/28/24 06/28/24 04:17 04:24 06:22 ABG pH 7.48 H 7.27 L D 7.22 L ABG pCO2 39 72 H* D 83 H* D ABG pO2 49 L* 71 L D 82 L ABG HCO3 29 H 33 H 34 H ABG O2 Saturation 87 L 93 95 ABG Base Excess 5 H 5 H 4 H VBG pH VBG pCO2 VBG pO2 VBG Base Excess 06/28/24 06/29/24 06/30/24 10:18 04:21 07:57 ABG pH 7.32 L D 7.41 7.41 ABG pCO2 64 H D 63 H 62 H ABG pO2 76 L 81 L 59 L* D ABG HCO3 33 H 40 H 40 H ABG O2 Saturation 95 97 88 L ABG Base Excess 6 H 14 H 13 H VBG pH VBG pCO2 VBG pO2 VBG Base Excess 07/02/24 07/03/24 07/04/24 04:05 04:45 04:11 ABG pH 7.46 H 7.43 7.38 ABG pCO2 53 H 58 H 67 H ABG pO2 77 L 100 D 73 L D ABG HCO3 38 H 39 H 40 H ABG O2 Saturation 96 98 94 ABG Base Excess 12 H 13 H 13 H VBG pH VBG pCO2 VBG pO2 VBG Base Excess 07/05/24 07/06/24 07/09/24 04:40 04:08 04:53 ABG pH 7.30 L 7.42 D 7.26 L ABG pCO2 87 H* D 67 H D 94 H* ABG pO2 132 H D 64 L D 149 H ABG HCO3 43 H 43 H 42 H ABG O2 Saturation 99 H 92 100 H ABG Base Excess 14 H 17 H 12 H VBG pH VBG pCO2 VBG pO2 VBG Base Excess 07/11/24 07/12/24 07/14/24 11:34 04:49 04:45 ABG pH 7.25 L 7.36 D ABG pCO2 106 H* D 94 H* D ABG pO2 67 L D 59 L* ABG HCO3 46 H 53 H ABG O2 Saturation 91 90 L ABG Base Excess 16 H 24 H VBG pH 7.38 VBG pCO2 74 H VBG pO2 148 H VBG Base Excess 16 H 07/14/24 07/15/24 07/16/24 09:21 10:24 04:35 ABG pH 7.42 7.25 L D ABG pCO2 83 H* D 115 H* D ABG pO2 61 L 70 L ABG HCO3 54 H 50 H ABG O2 Saturation 92 93 ABG Base Excess 27 H 20 H VBG pH 7.39 VBG pCO2 79 H VBG pO2 40 VBG Base Excess 21 H 07/16/24 07/18/24 09:20 04:39 ABG pH 7.32 L 7.35 ABG pCO2 95 H* D 92 H* ABG pO2 59 L* 60 L ABG HCO3 49 H 50 H ABG O2 Saturation 92 89 L ABG Base Excess 20 H 22 H VBG pH VBG pCO2 VBG pO2 VBG Base Excess Quality Measures Quality Measures sepsis Current suspected stage: sepsis (Resolved) Possible source: pulmonary, GI tract/intra-abdominal, genitourinary and skin/soft tissue Blood cultures ordered: yes Antibiotic ordered: No Assessment & Plan Assessment Current Active Medications: Generic Name Dose Route Start Last Admin Trade Name Freq PRN Reason Stop Dose Admin Acetaminophen 650 mg 06/26/24 15:16 07/15/24 00:37 Acetaminophen Munira 325 Mg/10 Ml Udc GT 07/26/24 15:15 650 mg Q4HR PRN Administration Pain Or Fever > 100.3 Aspirin 81 mg 07/11/24 09:30 07/19/24 08:39 Aspirin 81 Mg Chew PO 08/08/24 10:59 81 mg QDAY JUAN JOSE Administration Atorvastatin Calcium 80 mg 07/10/24 21:00 07/18/24 21:25 Atorvastatin Calcium 20 Mg Tablet PO 08/09/24 20:59 80 mg HS JUAN JOSE Administration Calcium Carbonate 600 mg 06/28/24 13:00 07/18/24 14:12 Calcium Carbonate 600 Mg Tablet GT 07/28/24 12:59 600 mg QDAY@1300 JUAN JOSE Administration Docusate Sodium 100 mg 06/25/24 09:13 Docusate Sod Liqd 100 Mg/10 Ml Udc PO 07/22/24 08:59 BID PRN Constipation Protocol Emtricitabine/Tenofovir 1 tab 07/06/24 11:30 07/19/24 08:40 Emtricitabine 200 Mg/Tenofovir 300 Mg Tab (Non-Form) PO 08/19/24 14:33 1 tab QDAY JUAN JOSE Administration Enoxaparin Sodium 80 mg 07/15/24 21:00 07/19/24 08:39 Enoxaparin Sod Inj 80 Mg/0.8 Ml Syringe SC 10/11/24 08:00 80 mg BID JUAN JOSE Administration Ferrous Sulfate 300 mg 07/02/24 10:00 07/19/24 08:39 Ferrous Sulfate 300 Mg/5 Ml Udc GT 07/23/24 09:59 300 mg QDAY JUAN JOSE Administration Gabapentin 400 mg 07/13/24 21:00 07/19/24 08:37 Gabapentin 100 Mg Capsule GT 08/12/24 20:59 400 mg BID JUAN JOSE Administration Norepinephrine/Dextrose 8 mg in 250 mls @ 6.319 mls/hr 06/30/24 04:17 07/09/24 11:30 Levophed In D5w 8mg/250ml IV 07/30/24 04:16 0 mcg/kg/min .Q24H PRN 0 mls/hr PER PROTOCOL Titration Protocol 0.05 MCG/KG/MIN Methadone HCl 10 mg 07/19/24 18:00 Methadone Hcl 10 Mg Tablet GT 07/24/24 17:59 BID JUAN JOSE Methylprednisolone 10 mg 07/18/24 09:00 07/19/24 08:40 Methylprednisolone 4 Mg Tablet PO 07/21/24 09:00 10 mg QDAY JUAN JOSE Administration Modafinil 100 mg 07/18/24 09:00 07/19/24 08:39 Modafinil 100 Mg Tablet PO 08/17/24 08:59 100 mg QDAY JUAN JOSE Administration Pantoprazole Sodium 40 mg 07/07/24 09:32 07/19/24 08:40 Pantoprazole Inj 40 Mg Vial IV 08/06/24 09:31 40 mg QDAY JUAN JOSE Administration Raltegravir 400 mg 07/06/24 11:30 07/19/24 08:37 Raltegravir 400 Mg Tablet NG 08/19/24 14:33 400 mg BID JUAN JOSE Administration Trimethoprim/Sulfamethoxazole 20 ml 07/18/24 11:00 07/19/24 10:10 Trimethoprim 160 Mg/Sulfa 800 Mg Susp 20 Ml Udc PO 07/25/24 10:59 20 ml QDAY@1100 JUAN JOSE Administration Plan 39-year-old male patient with no PMHx who initially presented to [facility] on 05/27/2024 with a chief complaint of shortness of breath and cough, with associated chills, body aches, generalized weakness, fever, and night sweats beginning weeks prior but progressively worsening over a few days is currently being treated for acute hypoxic respiratory failure secondary to PCP pneumonia that was complicated by ventilator associated pneumonia. Patient is currently on tracheostomy tube and mechanically ventilated. 07/19/2024; patient was seen and examined by bedside this morning, no acute events overnight reported, appears more reactive this morning with opening eyes and moving them toward voice direction, remains hemodynamically stable on mechanical ventilation with saturation of 94% on 70% FiO2. No significant change in CBC this morning from 2 days ago, CMP noted for stable hyponatremia at 152, HCO3> 40, and mild elevation LFTs. Continue patient on current regimen of HAART, Bactrim, modafinil, gabapentin, therapeutic enoxaparin, atorvastatin and aspirin. Patient's methadone dose was decreased to twice daily, continuing methylprednisolone at 10 mg p.o. daily until 07/21, after which we will transition to methylprednisolone 5 mg daily after that. Discussed with aids social worker to find placement for LTAC, search continues for accepting facility, family updated regarding patient's condition and management plan. NEURO Patient is sedated and mechanically ventilated through tracheostomy tube. 06/05/2024 Patient was intubated, sedated, and paralyzed for ARDS. -We decreased the methadone dose to 10 Mg 3 times daily, and we will keep continuing gabapentin 400 Mg twice daily. Modafinil 100 Mg daily was started to wake him up. #Rt Parietal ischemic Stroke MRI on 07/08 Large area of restricted diffusion in the left frontal parietal white matter and small foci in the right parietal white matter most consistent with acute infarction -On aspirin 81mg daily and atorvastatin 80mg daily at night. #Fever, resolved #Withdrawal syndrome, stable Multiple cultures has been negative -Repeat influenza and COVID test on 07/04 negative -Repeat blood, urine and sputum culture are negative -Treat underlying condition -Tylenol as needed CARDIO #Right subclavian and axillary vein DVT. -Doppler US right upper extremity 06/17/24: revealed RUE DVT -On Heparin Drip 06/17-07/09, On Enoxaparin 75mg BID 07/11- #Sinus tachycardia Tachycardia most likely secondary to acute respiratory distress syndrome contributed by withdrawal while tapering the dose of IV sedatives -Continue to treat underlying cause #Shock, resolved Most likely 2/2 sedation. BC has been negative and on appropriate antibiotics Patient presented with septic shock secondary to severe extensive bilateral pneumonia. After resolution of initial septic shock, patient developed new hypotension, tachycardia, tachypnea, fevers indicated of septic shock. -Pressor support as needed -Linezolid (started 06/27-07/04) -Meropenem (started 06/27-07/04) -Urine (06/27) showed resistant staph epi -Blood (06/27) showed resistant Staphylococcus haemolyticus -repeat blood cultures and urine cultures negative -taper down sedatives as tolerated PULM #Chronic hypoxic respiratory failure 2/2 # Acute respiratory distress syndrome in the setting of post PCP pneumonia state Secondary to #Bilateral pneumocystis jirovecii pneumonia, resolved #Healthcare associated pneumonia, resolved, resolved #Ventilator associated pneumonia, resolved #S/P Tracheostomy #Pneumomediastinum, resolved -ABG done on 07/14/24 showed improvement. On vent support -Titrate down FiO2 as tolerated GI GI prophylaxis: IV pantoprazole 40 Mg daily #Elevated LFTs 2/2 HIV DDx: adverse affect of drugs, we had discontinued oxycodone previously, and phenobarbitol Liver enzymes started trending down after discontinuing oxycodone and phenobarbitol. liver US 05/30/2024 showed normal gallbladder and hepatomegaly without lesions or evidence of obstructions. Hep panel negative. LFTs downtrending Plan: -Continue monitoring #Hypertriglyceridemia, down trending secondary to propofol use, -Discontinued propofol NEPHRO #WILL Patient has WILL likely 2/2 congestion -Diamox 500mg IV BID started due to -Monitor UOP and renal panel -Consider alternative to Bactrim #Central diabetes insipidus, resolved #Hypophosphatemia, repleted #Hypokalemia -Repleted with KCL 40 meq x1, -On 20meq BID Liquid KCL #Mild hyponatremia Secondary to SIADH due to acute hypoxic respiratory failure leading to pulmonary distress -Continue to monitor #Hyperphosphetemia, stable -on sevelamir 800mg TID and calcium carbonate 600mg daily #NAGMA #Primary Respiratory acidosis compensated by metabolic alkalosis Secondary to increased work of breathing and increased RR 2/2 chronic hypoxic respiratory failure and chronic respiratory distress syndrome in the setting of tapering down of IV sedatives -ABGs 07/12 pH of 7.25, pCO2 106, bicarb 46 -We will treat the underlying cause respiratory acidosis HEME #Leukocytosis Likely reactive as we are tapering down sedatives and is still on steroid #Microcytic anemia 2/2 STEPHY and Inflammatory anemia Stable, has not required any transfusions this admission thus far. Clinically no evidence of bleeding. Iron panel shows iron 17, TIBC 262, iron saturation 6, unsaturated iron binding 245. Peripheral blood film confirms microcytic hypochromic anemia with target cells. Also daily lab draws contributing. Patient required x1 PRBC for Hg 6.9. Plan: -Started on oral ferrous sulfate 300 Mg daily -Feraheme 510mg was given x1 on 07/15/24 -Monitor H&H. Transfusing for Hgb <7 #Thrombocytosis, resolved Likely reactive in the setting of withdrawal syndrome -Continue to monitor ENDO #Hypoglycemia, resolved ID #Bilateral pneumocystis pneumonia, resolved #Healthcare associated pneumonia, resolved #Ventilator associated pneumonia, resolved #PCP pneumonia prophylaxis Negative studies: Cocci IgM and IgG, Hepatitis panel, Syphilis, Legionella, H.flu, N.meningitidis, Strep B, Strep pneumoniae, COVID, RSV, Flu A & B. TB quantiferon GOLD-indeterminate, however 06/05 AFB negative, CMV IgM, cryptococcal antigen negative. G6PD levels came back normal for consideration of dapsone alternative to Bactrim if needed. Patient completed 5 day course of azithromycin, 16 days of Zosyn. See Pulm for timeline of antimicrobial coverage. On 06/27 patient developed new septic shock Plan: -Antibiotcs Bactrim for prevention of PCP pneumonia in the setting of CD4 count of 116 -Linezolid and meropenum restarted on 06/27/2024-07/04/24 -Urine ackerman port grew GPC, Staph epidermidis that is MDR, sensitive to linezolid. -Fungal cultures from BAL pending, follow-up on results -Blood cultures from 06/26/2024 and 06/27/2024, negative so far, cultures drawn on 06/29/2024 is pending -Follow up blood, sputum, and urine cultures were negative -Repeat blood, urine, sputum cultures were ordered on 07/07/2024- negative #AIDS/HIV Continue HAART regimen. Continue Bactrim 20ml PO daily for prophylaxis #IRIS---Resolved Tappering off steroids slowely. MSK #Elevated creatine kinase---Resolved. 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 DVT prophylaxis: On enoxaparin 80mg BID for treatment of right upper extremity DVT GI prophylaxis: Pantoprazole 40 mg IV qday Diet: Tube feeds Ackerman:Condom cath Lines: PIV Antibiotics: Bactrim CODE STATUS: DNR/DNI Patient's plan of care discussed with attending Dr. Justin Magallanes, PGY-3 Attending Provider Attestation/Addendum Patient seen and examined with above resident, Rai Magallanes MD. I agree with the findings, assessment, plan of care as documented except for any differences below. Patient continues to show limited neurologic recovery though he does open his eyes to verbal stimulation. Will continue to decrease methadone dosing to twice daily now. Has been completely off phenobarbital for multiple days now with only gabapentin remaining for neuropathic pain. 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 Patient is undergoing physical therapy now tolerated well from a hemodynamics and gas exchange perspective. Will continue to wean FiO2 as tolerated but leave high PEEP. He is doing well on SIMV with a backup rate though he continues to overbreathing vent due to the extensive damage and fibrosis of his lungs after ARDS secondary to PJP pneumonia. Patient's family is at bedside and questioning about ability to transfer, I foresee he would likely be able to go to a long-term acute care hospital in the coming days for prolonged mechanical ventilation weaning and aggressive rehabilitation. Will continue daily modafinil during the day to help with sleep/wake cycle. Minimize any other agent apart from methadone for pain control. Patient will also need tapering of steroids off for IRIS. Total critical care time: I personally spent 30 minutes for review of physiologic parameters, directing plan of care throughout the day, coordination of care with case management, and counseling patient's family at bedside. This is exclusive of time spent teaching housestaff or performing separate billable procedures. 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 Patient continues to be at high risk for increased morbidity and mortality without aggressive care.
--- NOTE | 2024-07-19 12:28 | PC.SS ---
Update: Patient Trach/PEG. Off sedation. Eyes open not able to track. Patient off pressors.
--- NOTE | 2024-07-19 12:38 | PC.PT ---
PT eval only. Patient is at his maximum rehab potential at this time. Mother and sister at bedside were educated on how to perform Passive ROM.
[2024-07-19] MEDS: CALCIUM CARBONATE 600 MG TABLET GT (13:29)
--- NOTE | 2024-07-19 14:31 | PC.SS ---
INTERNAL COMBUSTION ENGINE INSPECTOR conducted phone contact with [facility] staff, Darius; confirmed authorization remains pending.
--- NOTE | 2024-07-19 15:14 | PC.SS ---
Updated information submitted to [facility] (med list and progress note) via [facility].
[2024-07-19] MEDS: ATORVASTATIN CALCIUM 20 MG TABLET 80 MG PO (20:41)
[2024-07-20] VITALS (30 sets, daily range): BP systolic 95–122; BP diastolic 54–75; PULSE 110–126; RESP 0–36; TEMP 37.3–37.9; O2SAT 86–97; BMI 23.7
[2024-07-20] MEDS: modafiniL 100 MG TABLET PO (08:22)
[2024-07-20] MEDS: Ferrous Sulfate 300 MG/5 ML UDC GT (08:22)
[2024-07-20] MEDS: ENOXAPARIN SOD INJ 80 MG/0.8 ML SYRINGE SC ×2 (08:22→20:26)
[2024-07-20] MEDS: ASPIRIN 81 MG CHEW GT (08:23)
[2024-07-20] MEDS: PANTOPRAZOLE INJ 40 MG VIAL IV (08:23)
[2024-07-20] MEDS: GABAPENTIN 100 MG CAPSULE 400 MG GT ×2 (08:23→20:27)
[2024-07-20] MEDS: METHADONE HCL 10 MG TABLET GT ×2 (08:23→20:27)
[2024-07-20] MEDS: EMTRICITABINE 200 MG/TENOFOVIR 300 MG TAB (NON-FORM) 1 TAB PO (08:24)
[2024-07-20] MEDS: RALTEGRAVIR 400 MG TABLET NG ×2 (08:24→20:26)
[2024-07-20] MEDS: methylPREDNISolone 4 MG TABLET 10 MG GT (08:26)
--- NOTE | 2024-07-20 10:03 | PD.RESPRO ---
Documentation for date of: 07/20/24 Subjective Subjective Interval history: 07/13/24: The patient was evaluated and examined at the bedside this morning. Overnight, the patient was having severe tremors, and was started on Precedex drip, initially tremors resolved but later required midazolam 2 mg IV x 1 followed by midazolam 4 mg IV x 1 which resolved his tremors. He is still tachycardic in 110s. We will continue with the volume control setting at this point and start him on SIMV with TV 500cc, PS 15, PEEP 10 and RR 10 in the evening. We will continue with phenobarbital 60 Mg 3 times daily, decreased clonazepam to 0.5 Mg 3 times daily, continue with Precedex drip, and increased the dose of gabapentin to 400 Mg twice daily. We will do lab work every 72 hours. The plan is to try with SAT in a couple of days. 07/14/24: The patient was evaluated and examined at the bedside this morning. Patient did not had any overnight events. We have discontinued all IV sedatives, and we decreased the frequency of doses of phenobarbital 60 Mg twice daily, clonazepam 0.5 Mg twice daily, and will continue gabapentin 400 Mg twice daily along with methadone 20 Mg 3 times daily. Lung compliance seems to be improving. His white count was 15.1, ABG done revealed pCO2 83, bicarb 54 with phosphorus 2.3. Phosphorus and magnesium was repleted. Liver enzymes trending down. We ordered EEG to evaluate for any further anoxic brain injury. We will try to get SAT in a couple of days. 07/15/2024: The patient was evaluated and examined at the bedside this morning. No acute overnight events. We gave 1 dose of phenobarbital 30 Mg and stopped it. Clonazepam dose was decreased down to 0.25 Mg twice daily, we will continue with gabapentin 400 Mg twice daily and methadone was decreased to 15 Mg 3 times daily. Lung compliance seems to be improving, white count trending down, hemoglobin was 6.9 and 1 unit PRBC was ordered. VBG revealed pCO2 of 79, pO2 40 and pH 7.39. Mild elevation in liver enzymes, we will continue to monitor. EEG was significant for diffuse slowing of waveforms, but official reading pending. 07/16/2024: Patient seen and examined at bedside. No overnight events. Patient responsive to painful stimuli, opens eyes. Patient has decreasing urine output, Lasix 40 ordered. Kayexalate given for potassium 5.4. Patietn on pressure support overnight, morning ABG showed pH 7.25, pCO2 115, pO2 70. Changed to SIVM, repeat ABG showed pH 7.32, pCO2 95, pO2 59. 07/17/2024: The patient was seen and examined at the bedside. No overnight events. Patient has been still responsive to painful stimuli, tries to open his eyes when asked. Labs were significant for decreasing white count to 11.0, hemoglobin 7.4, sodium 147, potassium 3.0 was repleted with 40 mEq oral KCl, AST/ALT mildly elevated 151/123 with ALP 382. We decreased the methadone dose to 10 Mg 3 times daily, and we will keep continuing gabapentin 400 Mg twice daily. Modafinil 100 Mg daily was started to wake him up. 07/18/2024; Patient seen and examined by bedside, no overnight events reported. Continues to be stable and saturating well on same ventilator settings of SIMV, RR 15, TV 500, PS 10, and FiO2 of 70%. Labs noted for hypernatremia with Na 152, HCo3>40, ABG pH 7.35, paCO2 92 and SaO2 90%, Continue patient on same medication regimen with plan to decrease Methylprednisolone to 5 starting on 07/20/24, will also continue patient on Modafinil and start patient on anabolic steroid. Increased patient's free water flushes to 100cc q6hr from 50, gently increasing not to overload patient. Continue patient also on Acetazolamide twice daily for one day more. Continue to correct electrolytes as needed. snf plan to send patient to LTAC once more alert. 07/19/2024; patient was seen and examined by bedside this morning, no acute events overnight reported, appears more reactive this morning with opening eyes and moving them toward voice direction, remains hemodynamically stable on mechanical ventilation with saturation of 94% on 70% FiO2. No significant change in CBC this morning from 2 days ago, CMP noted for stable hyponatremia at 152, HCO3> 40, and mild elevation LFTs. Continue patient on current regimen of HAART, Bactrim, modafinil, gabapentin, therapeutic enoxaparin, atorvastatin and aspirin. Patient's methadone dose was decreased to twice daily, continuing methylprednisolone at 10 mg p.o. daily until 07/21, after which we will transition to methylprednisolone 5 mg daily after that. Discussed with manager social work to find placement for LTAC, search continues for accepting facility, family updated regarding patient's condition and management plan. 07/20/2024; Patient was seen and examined by bedside, no overnight events reported, physical exam unchanged from prior day patient's only noted for opening eyes to verbal stimuli and blink reflex, continues to be on same ventilatory settings saturating well. Vitals were noted for sinus tachycardia with HR in 120s, patient was given 500cc of LR bolus and 2mg of ivp morphine for evaluation of sinus tachycardia, no effect of saline bolus on heart rate, and morphine effect was short-lived, no wbc increase on yesterday's labs nor fever overnight, ackerman and central line were discontinued a few days prior, will order Bcx, Ucx, CXR and sputum culture for further workup, will also continue to monitor wbc and vitals and start treatment as warranted. Patient continues to be on Bactrim, HAART and therapeutic Enoxaparin, will increase patient's Methadone back to TID and taper down slowly. Exam Vital Signs Temp Pulse Resp BP Pulse Ox O2 Del Method O2 Flow Rate 99.2 F 115 H 30 H 122/73 95 Mechanical Ventilation 70 07/20/24 08:00 07/20/24 09:00 07/20/24 02:00 07/20/24 09:00 07/20/24 09:00 07/20/24 04:00 07/15/24 17:34 FiO2 65 07/20/24 08:00 Narrative Exam GEN: Critically ill, not acutely distressed, mechanically ventilated on po sedation in process of complete stopping. Neuro: Appears more reactive this morning, eye opening to voice with eye movements. HEENT: NCAT, tracheostomy tube on appropriate position. Pupils sluggish but reactive. CVS: Tachycardic, no M/R/G. No JVD Respi: Mechanically ventilated, b/l breath sounds heard, significant rhonchi in all lung rosas. ABD: Soft, no grimace to palpation, bowel sounds present in all 4 quadrants, PEG tube in appropriate place Skin: warm, dry and intact. Extremities: Pulses 2+ in all extremities, BUE/BLE 2+ edema, ruptured vesicles 1-2 cm on the rt forearm surface that have been healing. Objective Labs 07/21/24 04:20 07/21/24 04:20 ABG Interpretation ABG results: 05/27/24 05/29/24 05/29/24 23:37 10:44 22:08 ABG pH 7.51 H 7.50 H 7.48 H ABG pCO2 28 L 32 32 ABG pO2 75 L 79 L 145 H D ABG HCO3 23 25 24 ABG O2 Saturation 96 95 98 ABG Base Excess 0 2 1 VBG pH VBG pCO2 VBG pO2 VBG Base Excess 05/30/24 05/31/24 06/04/24 08:45 04:54 02:10 ABG pH 7.47 H 7.45 7.45 ABG pCO2 35 38 36 ABG pO2 86 D 82 L 139 H ABG HCO3 26 26 25 ABG O2 Saturation 97 96 98 ABG Base Excess 2 2 1 VBG pH VBG pCO2 VBG pO2 VBG Base Excess 06/04/24 06/05/24 06/05/24 18:16 11:36 12:59 ABG pH 7.44 7.11 L* D 7.20 L ABG pCO2 36 94 H* D 68 H D ABG pO2 80 L D 150 H D 121 H D ABG HCO3 24 30 H 26 ABG O2 Saturation 94 97 97 ABG Base Excess 0 -2 -3 VBG pH VBG pCO2 VBG pO2 VBG Base Excess 06/05/24 06/06/24 06/06/24 19:25 04:13 15:27 ABG pH 7.22 L 7.27 L 7.30 L ABG pCO2 64 H 57 H 60 H ABG pO2 122 H 153 H D 74 L D ABG HCO3 26 26 29 H ABG O2 Saturation 97 99 H 92 ABG Base Excess -3 -2 2 VBG pH VBG pCO2 VBG pO2 VBG Base Excess 06/07/24 06/07/24 06/08/24 03:55 09:59 04:20 ABG pH 7.41 D 7.43 7.45 ABG pCO2 56 H 55 H 50 H ABG pO2 293 H D 78 L D 75 L ABG HCO3 36 H 37 H 35 H ABG O2 Saturation 99 H 95 94 ABG Base Excess 10 H 11 H 10 H VBG pH VBG pCO2 VBG pO2 VBG Base Excess 06/08/24 06/08/24 06/08/24 11:05 11:50 13:18 ABG pH 7.17 L* D 7.10 L* 7.15 L* ABG pCO2 95 H* D 115 H* D 88 H* D ABG pO2 89 75 L 72 L ABG HCO3 34 H 36 H 31 H ABG O2 Saturation 92 84 L 85 L ABG Base Excess 3 4 H 0 VBG pH VBG pCO2 VBG pO2 VBG Base Excess 06/08/24 06/09/24 06/09/24 17:02 01:33 03:15 ABG pH 7.18 L* 7.22 L 7.27 L ABG pCO2 50 H D 91 H* D 82 H* ABG pO2 82 L 105 D 86 ABG HCO3 19 L 37 H 38 H ABG O2 Saturation 93 97 95 ABG Base Excess -9 L 7 H 9 H VBG pH VBG pCO2 VBG pO2 VBG Base Excess 06/09/24 06/09/24 06/10/24 05:08 12:52 04:40 ABG pH 7.31 L 7.33 L 7.30 L ABG pCO2 75 H* 57 H D 78 H* D ABG pO2 97 158 H D 65 L D ABG HCO3 38 H 30 H 38 H ABG O2 Saturation 97 99 H 90 L ABG Base Excess 10 H 3 9 H VBG pH VBG pCO2 VBG pO2 VBG Base Excess 06/10/24 06/11/24 06/12/24 09:40 04:19 04:15 ABG pH 7.27 L 7.35 7.48 H D ABG pCO2 88 H* D 86 H* 63 H D ABG pO2 65 L 70 L 76 L ABG HCO3 40 H 48 H 47 H ABG O2 Saturation 89 L 93 95 ABG Base Excess 10 H 19 H 21 H VBG pH VBG pCO2 VBG pO2 VBG Base Excess 06/13/24 06/14/24 06/15/24 07:22 04:32 03:45 ABG pH 7.46 H 7.48 H 7.46 H ABG pCO2 56 H 40 D 37 ABG pO2 80 L 64 L 71 L ABG HCO3 39 H 30 H 27 H ABG O2 Saturation 95 92 94 ABG Base Excess 13 H 6 H 3 VBG pH VBG pCO2 VBG pO2 VBG Base Excess 06/15/24 06/15/24 06/15/24 10:17 12:20 14:20 ABG pH 7.01 L* D 7.00 L* 7.03 L* ABG pCO2 122 H* D 130 H* 125 H* ABG pO2 91 D 88 82 L ABG HCO3 31 H 32 H 33 H ABG O2 Saturation 88 L 88 L 87 L ABG Base Excess -3 -2 -1 VBG pH VBG pCO2 VBG pO2 VBG Base Excess 06/15/24 06/15/24 06/16/24 15:55 20:39 00:35 ABG pH 7.03 L* 7.08 L* 7.10 L* ABG pCO2 121 H* 116 H* 118 H* ABG pO2 99 117 H 102 ABG HCO3 32 H 34 H 37 H ABG O2 Saturation 93 97 96 ABG Base Excess -1 2 4 H VBG pH VBG pCO2 VBG pO2 VBG Base Excess 06/16/24 06/16/24 06/17/24 04:45 08:55 05:06 ABG pH 7.17 L* 7.28 L D 7.33 L ABG pCO2 112 H* 88 H* D 96 H* ABG pO2 155 H D 98 D 126 H D ABG HCO3 41 H 41 H 50 H ABG O2 Saturation 99 H 98 99 H ABG Base Excess 9 H 12 H 21 H VBG pH VBG pCO2 VBG pO2 VBG Base Excess 06/17/24 06/17/24 06/18/24 10:58 13:55 04:16 ABG pH 7.29 L 7.29 L 7.33 L ABG pCO2 106 H* D 106 H* 86 H* D ABG pO2 58 L* D 61 L 77 L ABG HCO3 51 H 51 H 45 H ABG O2 Saturation 87 L 88 L 95 ABG Base Excess 21 H 21 H 17 H VBG pH VBG pCO2 VBG pO2 VBG Base Excess 06/19/24 06/20/24 06/21/24 04:18 04:49 04:06 ABG pH 7.42 7.36 7.44 ABG pCO2 63 H D 74 H* D 61 H D ABG pO2 66 L 55 L* 202 H D ABG HCO3 41 H 42 H 42 H ABG O2 Saturation 93 87 L 100 H ABG Base Excess 15 H 14 H 16 H VBG pH VBG pCO2 VBG pO2 VBG Base Excess 06/22/24 06/23/24 06/24/24 04:18 04:29 04:25 ABG pH 7.45 7.46 H 7.29 L D ABG pCO2 57 H 53 H 80 H* D ABG pO2 60 L D 99 D 88 ABG HCO3 40 H 38 H 38 H ABG O2 Saturation 91 99 H 96 ABG Base Excess 14 H 13 H 9 H VBG pH VBG pCO2 VBG pO2 VBG Base Excess 06/24/24 06/25/24 06/25/24 08:50 05:13 11:02 ABG pH 7.40 D 7.46 H Cancelled ABG pCO2 61 H D 53 H Cancelled ABG pO2 110 H D 66 L D Cancelled ABG HCO3 38 H 38 H Cancelled ABG O2 Saturation 99 H 94 Cancelled ABG Base Excess 12 H 13 H Cancelled VBG pH VBG pCO2 VBG pO2 VBG Base Excess 06/25/24 06/26/24 06/26/24 15:53 04:13 11:40 ABG pH 7.39 7.41 7.46 H ABG pCO2 53 H 48 43 ABG pO2 55 L* 58 L* 58 L* ABG HCO3 32 H 30 H 31 H ABG O2 Saturation 86 L 89 L 92 ABG Base Excess 6 H 5 H 6 H VBG pH VBG pCO2 VBG pO2 VBG Base Excess 06/27/24 06/28/24 06/28/24 04:17 04:24 06:22 ABG pH 7.48 H 7.27 L D 7.22 L ABG pCO2 39 72 H* D 83 H* D ABG pO2 49 L* 71 L D 82 L ABG HCO3 29 H 33 H 34 H ABG O2 Saturation 87 L 93 95 ABG Base Excess 5 H 5 H 4 H VBG pH VBG pCO2 VBG pO2 VBG Base Excess 06/28/24 06/29/24 06/30/24 10:18 04:21 07:57 ABG pH 7.32 L D 7.41 7.41 ABG pCO2 64 H D 63 H 62 H ABG pO2 76 L 81 L 59 L* D ABG HCO3 33 H 40 H 40 H ABG O2 Saturation 95 97 88 L ABG Base Excess 6 H 14 H 13 H VBG pH VBG pCO2 VBG pO2 VBG Base Excess 07/02/24 07/03/24 07/04/24 04:05 04:45 04:11 ABG pH 7.46 H 7.43 7.38 ABG pCO2 53 H 58 H 67 H ABG pO2 77 L 100 D 73 L D ABG HCO3 38 H 39 H 40 H ABG O2 Saturation 96 98 94 ABG Base Excess 12 H 13 H 13 H VBG pH VBG pCO2 VBG pO2 VBG Base Excess 07/05/24 07/06/24 07/09/24 04:40 04:08 04:53 ABG pH 7.30 L 7.42 D 7.26 L ABG pCO2 87 H* D 67 H D 94 H* ABG pO2 132 H D 64 L D 149 H ABG HCO3 43 H 43 H 42 H ABG O2 Saturation 99 H 92 100 H ABG Base Excess 14 H 17 H 12 H VBG pH VBG pCO2 VBG pO2 VBG Base Excess 07/11/24 07/12/24 07/14/24 11:34 04:49 04:45 ABG pH 7.25 L 7.36 D ABG pCO2 106 H* D 94 H* D ABG pO2 67 L D 59 L* ABG HCO3 46 H 53 H ABG O2 Saturation 91 90 L ABG Base Excess 16 H 24 H VBG pH 7.38 VBG pCO2 74 H VBG pO2 148 H VBG Base Excess 16 H 07/14/24 07/15/24 07/16/24 09:21 10:24 04:35 ABG pH 7.42 7.25 L D ABG pCO2 83 H* D 115 H* D ABG pO2 61 L 70 L ABG HCO3 54 H 50 H ABG O2 Saturation 92 93 ABG Base Excess 27 H 20 H VBG pH 7.39 VBG pCO2 79 H VBG pO2 40 VBG Base Excess 21 H 07/16/24 07/18/24 09:20 04:39 ABG pH 7.32 L 7.35 ABG pCO2 95 H* D 92 H* ABG pO2 59 L* 60 L ABG HCO3 49 H 50 H ABG O2 Saturation 92 89 L ABG Base Excess 20 H 22 H VBG pH VBG pCO2 VBG pO2 VBG Base Excess Quality Measures Quality Measures sepsis Current suspected stage: sepsis (Resolved) Possible source: pulmonary, GI tract/intra-abdominal, genitourinary and skin/soft tissue Blood cultures ordered: yes Antibiotic ordered: No Assessment & Plan Assessment Current Active Medications: Generic Name Dose Route Start Last Admin Trade Name Freq PRN Reason Stop Dose Admin Acetaminophen 650 mg 06/26/24 15:16 07/15/24 00:37 Acetaminophen Munira 325 Mg/10 Ml Udc GT 07/26/24 15:15 650 mg Q4HR PRN Administration Pain Or Fever > 100.3 Aspirin 81 mg 07/20/24 09:00 07/20/24 08:23 Aspirin 81 Mg Chew GT 08/19/24 08:59 81 mg QDAY JUAN JOSE Administration Atorvastatin Calcium 80 mg 07/20/24 21:00 Atorvastatin Calcium 20 Mg Tablet GT 08/19/24 20:59 HS JUAN JOSE Calcium Carbonate 600 mg 06/28/24 13:00 07/19/24 13:29 Calcium Carbonate 600 Mg Tablet GT 07/28/24 12:59 600 mg QDAY@1300 JUAN JOSE Administration Docusate Sodium 100 mg 06/25/24 09:13 Docusate Sod Liqd 100 Mg/10 Ml Udc PO 07/22/24 08:59 BID PRN Constipation Protocol Emtricitabine/Tenofovir 1 tab 07/06/24 11:30 07/20/24 08:24 Emtricitabine 200 Mg/Tenofovir 300 Mg Tab (Non-Form) PO 08/19/24 14:33 1 tab QDAY JUAN JOSE Administration Enoxaparin Sodium 80 mg 07/15/24 21:00 07/20/24 08:22 Enoxaparin Sod Inj 80 Mg/0.8 Ml Syringe SC 10/11/24 08:00 80 mg BID JUAN JOSE Administration Ferrous Sulfate 300 mg 07/02/24 10:00 07/20/24 08:22 Ferrous Sulfate 300 Mg/5 Ml Udc GT 07/23/24 09:59 300 mg QDAY JUAN JOSE Administration Gabapentin 400 mg 07/13/24 21:00 07/20/24 08:23 Gabapentin 100 Mg Capsule GT 08/12/24 20:59 400 mg BID JUAN JOSE Administration Norepinephrine/Dextrose 8 mg in 250 mls @ 6.319 mls/hr 06/30/24 04:17 07/09/24 11:30 Levophed In D5w 8mg/250ml IV 07/30/24 04:16 0 mcg/kg/min .Q24H PRN 0 mls/hr PER PROTOCOL Titration Protocol 0.05 MCG/KG/MIN Methadone HCl 10 mg 07/19/24 18:00 07/20/24 08:23 Methadone Hcl 10 Mg Tablet GT 07/24/24 17:59 10 mg BID JUAN JOSE Administration Methylprednisolone 10 mg 07/20/24 09:00 07/20/24 08:26 Methylprednisolone 4 Mg Tablet GT 07/21/24 08:59 10 mg QDAY JUAN JOSE Administration Methylprednisolone 4 mg 07/22/24 09:00 Methylprednisolone 4 Mg Tablet GT 08/21/24 08:59 QDAY JUAN JOSE Modafinil 100 mg 07/18/24 09:00 07/20/24 08:22 Modafinil 100 Mg Tablet PO 08/17/24 08:59 100 mg QDAY JUAN JOSE Administration Pantoprazole Sodium 40 mg 07/07/24 09:32 07/20/24 08:23 Pantoprazole Inj 40 Mg Vial IV 08/06/24 09:31 40 mg QDAY JUAN JOSE Administration Raltegravir 400 mg 07/06/24 11:30 07/20/24 08:24 Raltegravir 400 Mg Tablet NG 08/19/24 14:33 400 mg BID JUAN JOSE Administration Trimethoprim/Sulfamethoxazole 20 ml 07/20/24 11:00 Trimethoprim 160 Mg/Sulfa 800 Mg Susp 20 Ml Udc GT 07/25/24 10:59 QDAY@1100 JUAN JOSE Plan 39-year-old male patient with no PMHx who initially presented to [facility] on 05/27/2024 with a chief complaint of shortness of breath and cough, with associated chills, body aches, generalized weakness, fever, and night sweats beginning weeks prior but progressively worsening over a few days is currently being treated for acute hypoxic respiratory failure secondary to PCP pneumonia that was complicated by ventilator associated pneumonia. Patient is currently on tracheostomy tube and mechanically ventilated. 07/20/2024; Patient was seen and examined by bedside, no overnight events reported, physical exam unchanged from prior day patient's only noted for opening eyes to verbal stimuli and blink reflex, continues to be on same ventilatory settings saturating well. Vitals were noted for sinus tachycardia with HR in 120s, patient was given 500cc of LR bolus and 2mg of ivp morphine for evaluation of sinus tachycardia, no effect of saline bolus on heart rate, and morphine effect was short-lived, no wbc increase on yesterday's labs nor fever overnight, ackerman and central line were discontinued a few days prior, will order Bcx, Ucx, CXR and sputum culture for further workup, will also continue to monitor wbc and vitals and start treatment as warranted. Patient continues to be on Bactrim, HAART and therapeutic Enoxaparin, will increase patient's Methadone back to TID and taper down slowly. NEURO Patient is sedated and mechanically ventilated through tracheostomy tube. 06/05/2024 Patient was intubated, sedated, and paralyzed for ARDS. -We decreased the methadone dose to 10 Mg 3 times daily, and we will keep continuing gabapentin 400 Mg twice daily. Modafinil 100 Mg daily was started to wake him up. #Rt Parietal ischemic Stroke MRI on 07/08 Large area of restricted diffusion in the left frontal parietal white matter and small foci in the right parietal white matter most consistent with acute infarction -On aspirin 81mg daily and atorvastatin 80mg daily at night. #Fever, resolved #Withdrawal syndrome, stable Multiple cultures has been negative -Repeat influenza and COVID test on 07/04 negative -Repeat blood, urine and sputum culture are negative -Treat underlying condition -Tylenol as needed CARDIO #Right subclavian and axillary vein DVT. -Doppler US right upper extremity 06/17/24: revealed RUE DVT -On Heparin Drip 06/17-07/09, On Enoxaparin 75mg BID 07/11- #Sinus tachycardia Tachycardia most likely secondary to acute respiratory distress syndrome contributed by withdrawal while tapering the dose of IV sedatives -Continue to treat underlying cause #Shock, resolved Most likely 2/2 sedation. BC has been negative and on appropriate antibiotics Patient presented with septic shock secondary to severe extensive bilateral pneumonia. After resolution of initial septic shock, patient developed new hypotension, tachycardia, tachypnea, fevers indicated of septic shock. -Pressor support as needed -Linezolid (started 06/27-07/04) -Meropenem (started 06/27-07/04) -Urine (06/27) showed resistant staph epi -Blood (06/27) showed resistant Staphylococcus haemolyticus -repeat blood cultures and urine cultures negative -taper down sedatives as tolerated PULM #Chronic hypoxic respiratory failure 2/2 # Acute respiratory distress syndrome in the setting of post PCP pneumonia state Secondary to #Bilateral pneumocystis jirovecii pneumonia, resolved #Healthcare associated pneumonia, resolved, resolved #Ventilator associated pneumonia, resolved #S/P Tracheostomy #Pneumomediastinum, resolved -ABG done on 07/14/24 showed improvement. On vent support -Titrate down FiO2 as tolerated GI GI prophylaxis: IV pantoprazole 40 Mg daily #Elevated LFTs 2/2 HIV DDx: adverse affect of drugs, we had discontinued oxycodone previously, and phenobarbitol Liver enzymes started trending down after discontinuing oxycodone and phenobarbitol. liver US 05/30/2024 showed normal gallbladder and hepatomegaly without lesions or evidence of obstructions. Hep panel negative. LFTs downtrending Plan: -Continue monitoring #Hypertriglyceridemia, down trending secondary to propofol use, -Discontinued propofol NEPHRO #WILL Patient has WILL likely 2/2 congestion -Diamox 500mg IV BID started due to -Monitor UOP and renal panel -Consider alternative to Bactrim #Central diabetes insipidus, resolved #Hypophosphatemia, repleted #Hypokalemia -Repleted with KCL 40 meq x1, -On 20meq BID Liquid KCL #Mild hyponatremia Secondary to SIADH due to acute hypoxic respiratory failure leading to pulmonary distress -Continue to monitor #Hyperphosphetemia, stable -on sevelamir 800mg TID and calcium carbonate 600mg daily #NAGMA #Primary Respiratory acidosis compensated by metabolic alkalosis Secondary to increased work of breathing and increased RR 2/2 chronic hypoxic respiratory failure and chronic respiratory distress syndrome in the setting of tapering down of IV sedatives -ABGs 07/12 pH of 7.25, pCO2 106, bicarb 46 -We will treat the underlying cause respiratory acidosis HEME #Leukocytosis Likely reactive as we are tapering down sedatives and is still on steroid #Microcytic anemia 2/2 STEPHY and Inflammatory anemia Stable, has not required any transfusions this admission thus far. Clinically no evidence of bleeding. Iron panel shows iron 17, TIBC 262, iron saturation 6, unsaturated iron binding 245. Peripheral blood film confirms microcytic hypochromic anemia with target cells. Also daily lab draws contributing. Patient required x1 PRBC for Hg 6.9. Plan: -Started on oral ferrous sulfate 300 Mg daily -Feraheme 510mg was given x1 on 07/15/24 -Monitor H&H. Transfusing for Hgb <7 #Thrombocytosis, resolved Likely reactive in the setting of withdrawal syndrome -Continue to monitor ENDO #Hypoglycemia, resolved ID #Bilateral pneumocystis pneumonia, resolved #Healthcare associated pneumonia, resolved #Ventilator associated pneumonia, resolved #PCP pneumonia prophylaxis Negative studies: Cocci IgM and IgG, Hepatitis panel, Syphilis, Legionella, H.flu, N.meningitidis, Strep B, Strep pneumoniae, COVID, RSV, Flu A & B. TB quantiferon GOLD-indeterminate, however 06/05 AFB negative, CMV IgM, cryptococcal antigen negative. G6PD levels came back normal for consideration of dapsone alternative to Bactrim if needed. Patient completed 5 day course of azithromycin, 16 days of Zosyn. See Pulm for timeline of antimicrobial coverage. On 06/27 patient developed new septic shock Plan: -Antibiotcs Bactrim for prevention of PCP pneumonia in the setting of CD4 count of 116 -Linezolid and meropenum restarted on 06/27/2024-07/04/24 -Urine ackerman port grew GPC, Staph epidermidis that is MDR, sensitive to linezolid. -Fungal cultures from BAL pending, follow-up on results -Blood cultures from 06/26/2024 and 06/27/2024, negative so far, cultures drawn on 06/29/2024 is pending -Follow up blood, sputum, and urine cultures were negative -Repeat blood, urine, sputum cultures were ordered on 07/07/2024- negative #AIDS/HIV Continue HAART regimen. Continue Bactrim 20ml PO daily for prophylaxis #IRIS---Resolved Tappering off steroids slowely. MSK #Elevated creatine kinase---Resolved. 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 DVT prophylaxis: On enoxaparin 80mg BID for treatment of right upper extremity DVT GI prophylaxis: Pantoprazole 40 mg IV qday Diet: Tube feeds Ackerman:Condom cath Lines: PIV Antibiotics: Bactrim CODE STATUS: DNR/DNI Patient's plan of care discussed with attending Dr. Justin Magallanes, PGY-3 Attending Provider Attestation/Addendum Patient seen and examined with above resident, Rai Magallanes MD. I agree with the findings, assessment, and plan of care as documented except for any differences below. Patient continues to show slow improvement. With addition of modafinil we will try to regulate sleep/wake cycle. PT working with patient seem to have exhausted him yesterday. Patient's family at bedside remain hopeful for continued improvement. Patient did develop increasing tachycardia this afternoon after down titration of his methadone to twice daily dosing, will return to 3 times daily for now plan for a more prolonged taper. With the tachycardia, there was no associated fever and white count seems to be stable the previous days. We did repeat panculture and will check procalcitonin as reassurance if negative. Patient remains on appropriate heart therapy and Bactrim for prophylaxis. Lovenox being used for DVT treatment, will likely need to be lifelong can be transitioned over to [facility] potentially in the long run. Patient awaiting insurance authorization for placement at [facility] in [facility]. I did update the patient's primary point of contact/sister we will relay this to the family in anticipation of coming days. 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 Pain control with gabapentin and methadone seem appropriate and he did respond to IV morphine with improvement in tachycardia after resident did challenge. Slow weaning from mechanical ventilation on appropriate FiO2/ PEEP ratio. Continues on SIMV and we will continue to decrease rate towards full pressure support. Total critical care time: I personally spent 40 minutes for review of physiologic parameters, directing plan of care throughout the day, and counseling patient's family at bedside. This is exclusive of time spent teaching housestaff or performing any separate billable procedures. 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 Patient remains at high risk for increased morbidity and mortality warranting close monitoring in the intensive care unit.
--- NOTE | 2024-07-20 10:43 | PC.SS ---
[employer] Animal Damage Control Agent (FLOYD) Miracle informed by Dr. Anderson that patient is medically clear for discharge to go to [facility]. FLOYD informed Dr. Anderson that patient was accepted to [facility] in [facility]. FLOYD contacted Clinical Liaison-Juan Francisco and spoke to him via telephone call to initiate insurance authorization. Juan Francisco requested for updated clinical information to be fax to [phone]. FLOYD faxed information.
[2024-07-20] MEDS: TRIMETHOPRIM 160 MG/SULFA 800 MG SUSP 20 ML UDC GT (11:57)
[2024-07-20] MEDS: CALCIUM CARBONATE 600 MG TABLET GT (13:08)
[2024-07-20] MEDS: RINGERS LACTATED 1000 ML 500 ML 999 ML IV (16:20)
[2024-07-20] MEDS: MORPHINE SULF INJ 10 MG/ML VIAL 4 MG IVP (17:33)
--- NOTE | 2024-07-20 18:12 | PC.NURSE ---
morphine given for elevated HR 118-123,HR dropped to 112 after giving morphine
[2024-07-20] MEDS: ATORVASTATIN CALCIUM 20 MG TABLET 80 MG GT (20:27)
[2024-07-21] VITALS (45 sets, daily range): BP systolic 67–124; BP diastolic 40–80; PULSE 110–125; RESP 19–33; TEMP 36.8–37.1; O2SAT 89–100; BMI 23.8
[2024-07-21 05:29] LABS: Basophils # (Auto) 0.1 Thou/mm3 (0.0-0.2); Basophils % (Auto) 1 % (0-2.5); Eosinophils # (Auto) 0.2 Thou/mm3 (0.0-0.5); Eosinophils % (Auto) 3 % (0-10); Hematocrit 27.4 % (41.0-53.0); Immature Granulocytes % (Auto) 1 % (0-0); Immature Granulocytes Auto 0.08 Thou/mm3 (0.00-0.00); Lymphocytes # (Auto) 1.3 Thou/mm3 (1.0-4.8); Lymphocytes % (Auto) 14 % (10-50); Mean Corpuscular HGB Conc 27.7 g/dl (31.0-37.0); Mean Corpuscular Hemoglobin 26.2 pg (25.0-35.0); Mean Corpuscular Volume 95 fL (80-100); Monocytes % (Auto) 11 % (0-12); Neutrophils # (Auto) 6.7 Thou/mm3 (1.8-7.7); Neutrophils % (Auto) 72 % (37-80); Nucleated Red Blood Cell # 0.03 Thou/mm3 (0.00-0.00); Nucleated Red Blood Cell % 0 /100 WBC (0); Platelet Count 292 Thou/mm3 (140-440); RDW Standard Deviation 82.2 fL (35.1-43.9); White Blood Count 9.3 Thou/mm3 (3.8-10.6)
[2024-07-21 05:30] LABS: Collection Type, Urine Catheter
[2024-07-21 05:39] LABS: Hemoglobin 7.6 g/dL (13.5-16.0)
[2024-07-21] MEDS: METHADONE HCL 10 MG TABLET GT ×3 (06:08→21:45)
[2024-07-21 06:36] LABS: Bacteria,Urine Rare; Bilirubin,Urine Negative (Negative); Blood,Urine Negative (Negative); Color,Urine Yellow (Lt Yel-Yel); Glucose, Urine Negative (Negative); Hyaline Casts,Urine < 1 /hpf (0-1); Ketones,Urine Negative (Negative); Leukocyte Esterase,Urine Negative (Negative); Nitrite,Urine Positive (Negative); PH,Urine 6.5 (5.0-7.0); Protein,Urine 1+ (Neg - Trace); RBC,Urine 2 /hpf (0-3); Specific Gravity,Urine 1.019 (1.001-1.035); Squamous Epithelial Cell,Urine < 1 /hpf (0-5); Urobilinogen,Urine Negative mg/dL (0.0-1.0); WBC,Urine 3 /hpf (0-5)
[2024-07-21 06:37] LABS: Clarity,Urine Hazy (Clear/Hazy); Culture Indicated,Urine Yes
[2024-07-21 07:10] LABS: Alanine Aminotransferase 123 U/L (10-49); Albumin/Globulin Ratio 0.9 (1.2-2.2); Alkaline Phosphatase 269 U/L (46-116); Anion Gap 6 (7-16); Aspartate Amino Transferase 121 U/L (0-34); BUN/Creatinine Ratio 38 Ratio (12-20); Bilirubin,Total < 0.2 mg/dL (0.3-1.2); Blood Urea Nitrogen 38 mg/dL (9-23); Calcium 8.6 mg/dL (8.3-10.6); Calcium (Corrected) 9.4 mg/dL (8.5-10.1); Carbon Dioxide > 40.0 mMol/L (20.0-31.0); Chloride 106 mMol/L (98-107); Estimated Creatinine Clearance 90.4 mL/min (>60); Globulin 3.3 gm/dL (2.3-3.5); Glucose 109 mg/dL (74-106); Osmolality,Calculated 311 (275-295); Potassium 4.3 mMol/L (3.4-5.1); Procalcitonin 0.46 ng/ml (0.0-0.49); Sodium 152 mMol/L (136-145); Total Protein 6.3 gm/dL (5.7-8.2); eGFR > 60 See Note
[2024-07-21] MEDS: Ferrous Sulfate 300 MG/5 ML UDC GT (08:14)
[2024-07-21] MEDS: ENOXAPARIN SOD INJ 80 MG/0.8 ML SYRINGE SC ×2 (08:15→20:46)
[2024-07-21] MEDS: PANTOPRAZOLE INJ 40 MG VIAL IV (08:15)
[2024-07-21] MEDS: RALTEGRAVIR 400 MG TABLET NG ×2 (08:16→20:46)
[2024-07-21] MEDS: modafiniL 100 MG TABLET PO (08:16)
[2024-07-21] MEDS: GABAPENTIN 100 MG CAPSULE 400 MG GT ×2 (08:16→20:46)
[2024-07-21] MEDS: ASPIRIN 81 MG CHEW GT (08:16)
[2024-07-21] MEDS: EMTRICITABINE 200 MG/TENOFOVIR 300 MG TAB (NON-FORM) 1 TAB PO (08:18)
--- NOTE | 2024-07-21 10:55 | PD.RESPRO ---
Documentation for date of: 07/21/24 Subjective Subjective Interval history: 07/13/24: The patient was evaluated and examined at the bedside this morning. Overnight, the patient was having severe tremors, and was started on Precedex drip, initially tremors resolved but later required midazolam 2 mg IV x 1 followed by midazolam 4 mg IV x 1 which resolved his tremors. He is still tachycardic in 110s. We will continue with the volume control setting at this point and start him on SIMV with TV 500cc, PS 15, PEEP 10 and RR 10 in the evening. We will continue with phenobarbital 60 Mg 3 times daily, decreased clonazepam to 0.5 Mg 3 times daily, continue with Precedex drip, and increased the dose of gabapentin to 400 Mg twice daily. We will do lab work every 72 hours. The plan is to try with SAT in a couple of days. 07/14/24: The patient was evaluated and examined at the bedside this morning. Patient did not had any overnight events. We have discontinued all IV sedatives, and we decreased the frequency of doses of phenobarbital 60 Mg twice daily, clonazepam 0.5 Mg twice daily, and will continue gabapentin 400 Mg twice daily along with methadone 20 Mg 3 times daily. Lung compliance seems to be improving. His white count was 15.1, ABG done revealed pCO2 83, bicarb 54 with phosphorus 2.3. Phosphorus and magnesium was repleted. Liver enzymes trending down. We ordered EEG to evaluate for any further anoxic brain injury. We will try to get SAT in a couple of days. 07/15/2024: The patient was evaluated and examined at the bedside this morning. No acute overnight events. We gave 1 dose of phenobarbital 30 Mg and stopped it. Clonazepam dose was decreased down to 0.25 Mg twice daily, we will continue with gabapentin 400 Mg twice daily and methadone was decreased to 15 Mg 3 times daily. Lung compliance seems to be improving, white count trending down, hemoglobin was 6.9 and 1 unit PRBC was ordered. VBG revealed pCO2 of 79, pO2 40 and pH 7.39. Mild elevation in liver enzymes, we will continue to monitor. EEG was significant for diffuse slowing of waveforms, but official reading pending. 07/16/2024: Patient seen and examined at bedside. No overnight events. Patient responsive to painful stimuli, opens eyes. Patient has decreasing urine output, Lasix 40 ordered. Kayexalate given for potassium 5.4. Patietn on pressure support overnight, morning ABG showed pH 7.25, pCO2 115, pO2 70. Changed to SIVM, repeat ABG showed pH 7.32, pCO2 95, pO2 59. 07/17/2024: The patient was seen and examined at the bedside. No overnight events. Patient has been still responsive to painful stimuli, tries to open his eyes when asked. Labs were significant for decreasing white count to 11.0, hemoglobin 7.4, sodium 147, potassium 3.0 was repleted with 40 mEq oral KCl, AST/ALT mildly elevated 151/123 with ALP 382. We decreased the methadone dose to 10 Mg 3 times daily, and we will keep continuing gabapentin 400 Mg twice daily. Modafinil 100 Mg daily was started to wake him up. 07/18/2024; Patient seen and examined by bedside, no overnight events reported. Continues to be stable and saturating well on same ventilator settings of SIMV, RR 15, TV 500, PS 10, and FiO2 of 70%. Labs noted for hypernatremia with Na 152, HCo3>40, ABG pH 7.35, paCO2 92 and SaO2 90%, Continue patient on same medication regimen with plan to decrease Methylprednisolone to 5 starting on 07/20/24, will also continue patient on Modafinil and start patient on anabolic steroid. Increased patient's free water flushes to 100cc q6hr from 50, gently increasing not to overload patient. Continue patient also on Acetazolamide twice daily for one day more. Continue to correct electrolytes as needed. longterm plan to send patient to LTAC once more alert. 07/19/2024; patient was seen and examined by bedside this morning, no acute events overnight reported, appears more reactive this morning with opening eyes and moving them toward voice direction, remains hemodynamically stable on mechanical ventilation with saturation of 94% on 70% FiO2. No significant change in CBC this morning from 2 days ago, CMP noted for stable hyponatremia at 152, HCO3> 40, and mild elevation LFTs. Continue patient on current regimen of HAART, Bactrim, modafinil, gabapentin, therapeutic enoxaparin, atorvastatin and aspirin. Patient's methadone dose was decreased to twice daily, continuing methylprednisolone at 10 mg p.o. daily until 07/21, after which we will transition to methylprednisolone 5 mg daily after that. Discussed with dialysis social worker to find placement for LTAC, search continues for accepting facility, family updated regarding patient's condition and management plan. 07/20/2024; Patient was seen and examined by bedside, no overnight events reported, physical exam unchanged from prior day patient's only noted for opening eyes to verbal stimuli and blink reflex, continues to be on same ventilatory settings saturating well. Vitals were noted for sinus tachycardia with HR in 120s, patient was given 500cc of LR bolus and 2mg of ivp morphine for evaluation of sinus tachycardia, no effect of saline bolus on heart rate, and morphine effect was short-lived, no wbc increase on yesterday's labs nor fever overnight, ackerman and central line were discontinued a few days prior, will order Bcx, Ucx, CXR and sputum culture for further workup, will also continue to monitor wbc and vitals and start treatment as warranted. Patient continues to be on Bactrim, HAART and therapeutic Enoxaparin, will increase patient's Methadone back to TID and taper down slowly. 07/21/2023; Patient was seen and examined by bedside, no acute overnight events reported, physical exam remains unchanged patient's neuroexam limited to opening eyes to verbal stimuli and blink reflex, continues to be tachycardic with rate in lower 120s, no leukocytosis, negative Procal, blood cultures/urine cultures/sputum Gram stain-cultures were collected, will follow-up on results and meantime no change to antibiotic therapy as patient's labs including CBC/CMP unchanged from prior except for improving LFTs. Sputum cultures was negative for AFB/coccidiomycosis. Will continue patient on current management of HAART therapy, Bactrim, TID Methadone& Gabapentin along with Methylprednisolone. Exam Vital Signs Temp Pulse Resp BP Pulse Ox O2 Del Method O2 Flow Rate 98.3 F 118 H 30 H 109/77 92 L Mechanical Ventilation 70 07/21/24 07:00 07/21/24 10:04 07/20/24 02:00 07/21/24 10:04 07/21/24 10:04 07/20/24 04:00 07/15/24 17:34 FiO2 60 07/21/24 10:04 Narrative Exam GEN: Critically ill, not acutely distressed, mechanically ventilated on po sedation in process of complete stopping. Neuro: Appears more reactive this morning, eye opening to voice with eye movements. HEENT: NCAT, tracheostomy tube on appropriate position. Pupils sluggish but reactive. CVS: Tachycardic, no M/R/G. No JVD Respi: Mechanically ventilated, b/l breath sounds heard, significant rhonchi in all lung rosas. ABD: Soft, no grimace to palpation, bowel sounds present in all 4 quadrants, PEG tube in appropriate place Skin: warm, dry and intact. Extremities: Pulses 2+ in all extremities, BUE/BLE 2+ edema, ruptured vesicles 1-2 cm on the rt forearm surface that have been healing. Objective Labs 07/21/24 04:20 07/21/24 04:20 Labs: Laboratory Results - last 24 hr 07/21/24 07/21/24 04:20 04:30 WBC 9.3 RBC 2.90 L Hgb 7.6 L Hct 27.4 L MCV 95 MCH 26.2 MCHC 27.7 L RDW Std Deviation 82.2 H Plt Count 292 Neut % (Auto) 72 Lymph % (Auto) 14 Hardy % (Auto) 11 Eos % (Auto) 3 Baso % (Auto) 1 Neut # (Auto) 6.7 Lymph # (Auto) 1.3 Hardy # (Auto) 1.0 H Eos # (Auto) 0.2 Baso # (Auto) 0.1 Immature Gran # (Auto) 0.08 H Absolute Nucleated RBC 0.03 H Immature Gran % 1 H Nucleated RBC % 0 Sodium 152 H Potassium 4.3 D Chloride 106 Carbon Dioxide > 40.0 H Anion Gap 6 L BUN 38 H Creatinine 1.0 Estim Creat Clear Calc 90.4 eGFR > 60 BUN/Creatinine Ratio 38 H Glucose 109 H Calculated Osmolality 311 H Calcium 8.6 Corrected Calcium 9.4 Total Bilirubin < 0.2 L AST 121 H ALT 123 H Alkaline Phosphatase 269 H D Total Protein 6.3 Albumin 3.0 L Globulin 3.3 Albumin/Globulin Ratio 0.9 L Procalcitonin 0.46 Ur Collection Type Catheter Urine Color Yellow Urine Clarity Hazy Urine pH 6.5 Ur Specific Mcleod 1.019 Urine Protein 1+ A Urine Glucose (UA) Negative Urine Ketones Negative Urine Blood Negative Urine Nitrite Positive Urine Bilirubin Negative Urine Urobilinogen (Auto) Negative Ur Leukocyte Esterase Negative Urine RBC 2 Urine WBC 3 Ur Squamous Epith Cells < 1 Urine Bacteria Rare Hyaline Casts < 1 Ur Culture Indicated? Yes ABG Interpretation ABG results: 05/27/24 05/29/24 05/29/24 23:37 10:44 22:08 ABG pH 7.51 H 7.50 H 7.48 H ABG pCO2 28 L 32 32 ABG pO2 75 L 79 L 145 H D ABG HCO3 23 25 24 ABG O2 Saturation 96 95 98 ABG Base Excess 0 2 1 VBG pH VBG pCO2 VBG pO2 VBG Base Excess 05/30/24 05/31/24 06/04/24 08:45 04:54 02:10 ABG pH 7.47 H 7.45 7.45 ABG pCO2 35 38 36 ABG pO2 86 D 82 L 139 H ABG HCO3 26 26 25 ABG O2 Saturation 97 96 98 ABG Base Excess 2 2 1 VBG pH VBG pCO2 VBG pO2 VBG Base Excess 06/04/24 06/05/24 06/05/24 18:16 11:36 12:59 ABG pH 7.44 7.11 L* D 7.20 L ABG pCO2 36 94 H* D 68 H D ABG pO2 80 L D 150 H D 121 H D ABG HCO3 24 30 H 26 ABG O2 Saturation 94 97 97 ABG Base Excess 0 -2 -3 VBG pH VBG pCO2 VBG pO2 VBG Base Excess 06/05/24 06/06/24 06/06/24 19:25 04:13 15:27 ABG pH 7.22 L 7.27 L 7.30 L ABG pCO2 64 H 57 H 60 H ABG pO2 122 H 153 H D 74 L D ABG HCO3 26 26 29 H ABG O2 Saturation 97 99 H 92 ABG Base Excess -3 -2 2 VBG pH VBG pCO2 VBG pO2 VBG Base Excess 06/07/24 06/07/24 06/08/24 03:55 09:59 04:20 ABG pH 7.41 D 7.43 7.45 ABG pCO2 56 H 55 H 50 H ABG pO2 293 H D 78 L D 75 L ABG HCO3 36 H 37 H 35 H ABG O2 Saturation 99 H 95 94 ABG Base Excess 10 H 11 H 10 H VBG pH VBG pCO2 VBG pO2 VBG Base Excess 06/08/24 06/08/24 06/08/24 11:05 11:50 13:18 ABG pH 7.17 L* D 7.10 L* 7.15 L* ABG pCO2 95 H* D 115 H* D 88 H* D ABG pO2 89 75 L 72 L ABG HCO3 34 H 36 H 31 H ABG O2 Saturation 92 84 L 85 L ABG Base Excess 3 4 H 0 VBG pH VBG pCO2 VBG pO2 VBG Base Excess 06/08/24 06/09/24 06/09/24 17:02 01:33 03:15 ABG pH 7.18 L* 7.22 L 7.27 L ABG pCO2 50 H D 91 H* D 82 H* ABG pO2 82 L 105 D 86 ABG HCO3 19 L 37 H 38 H ABG O2 Saturation 93 97 95 ABG Base Excess -9 L 7 H 9 H VBG pH VBG pCO2 VBG pO2 VBG Base Excess 06/09/24 06/09/24 06/10/24 05:08 12:52 04:40 ABG pH 7.31 L 7.33 L 7.30 L ABG pCO2 75 H* 57 H D 78 H* D ABG pO2 97 158 H D 65 L D ABG HCO3 38 H 30 H 38 H ABG O2 Saturation 97 99 H 90 L ABG Base Excess 10 H 3 9 H VBG pH VBG pCO2 VBG pO2 VBG Base Excess 06/10/24 06/11/24 06/12/24 09:40 04:19 04:15 ABG pH 7.27 L 7.35 7.48 H D ABG pCO2 88 H* D 86 H* 63 H D ABG pO2 65 L 70 L 76 L ABG HCO3 40 H 48 H 47 H ABG O2 Saturation 89 L 93 95 ABG Base Excess 10 H 19 H 21 H VBG pH VBG pCO2 VBG pO2 VBG Base Excess 06/13/24 06/14/24 06/15/24 07:22 04:32 03:45 ABG pH 7.46 H 7.48 H 7.46 H ABG pCO2 56 H 40 D 37 ABG pO2 80 L 64 L 71 L ABG HCO3 39 H 30 H 27 H ABG O2 Saturation 95 92 94 ABG Base Excess 13 H 6 H 3 VBG pH VBG pCO2 VBG pO2 VBG Base Excess 06/15/24 06/15/24 06/15/24 10:17 12:20 14:20 ABG pH 7.01 L* D 7.00 L* 7.03 L* ABG pCO2 122 H* D 130 H* 125 H* ABG pO2 91 D 88 82 L ABG HCO3 31 H 32 H 33 H ABG O2 Saturation 88 L 88 L 87 L ABG Base Excess -3 -2 -1 VBG pH VBG pCO2 VBG pO2 VBG Base Excess 06/15/24 06/15/24 06/16/24 15:55 20:39 00:35 ABG pH 7.03 L* 7.08 L* 7.10 L* ABG pCO2 121 H* 116 H* 118 H* ABG pO2 99 117 H 102 ABG HCO3 32 H 34 H 37 H ABG O2 Saturation 93 97 96 ABG Base Excess -1 2 4 H VBG pH VBG pCO2 VBG pO2 VBG Base Excess 06/16/24 06/16/24 06/17/24 04:45 08:55 05:06 ABG pH 7.17 L* 7.28 L D 7.33 L ABG pCO2 112 H* 88 H* D 96 H* ABG pO2 155 H D 98 D 126 H D ABG HCO3 41 H 41 H 50 H ABG O2 Saturation 99 H 98 99 H ABG Base Excess 9 H 12 H 21 H VBG pH VBG pCO2 VBG pO2 VBG Base Excess 06/17/24 06/17/24 06/18/24 10:58 13:55 04:16 ABG pH 7.29 L 7.29 L 7.33 L ABG pCO2 106 H* D 106 H* 86 H* D ABG pO2 58 L* D 61 L 77 L ABG HCO3 51 H 51 H 45 H ABG O2 Saturation 87 L 88 L 95 ABG Base Excess 21 H 21 H 17 H VBG pH VBG pCO2 VBG pO2 VBG Base Excess 06/19/24 06/20/24 06/21/24 04:18 04:49 04:06 ABG pH 7.42 7.36 7.44 ABG pCO2 63 H D 74 H* D 61 H D ABG pO2 66 L 55 L* 202 H D ABG HCO3 41 H 42 H 42 H ABG O2 Saturation 93 87 L 100 H ABG Base Excess 15 H 14 H 16 H VBG pH VBG pCO2 VBG pO2 VBG Base Excess 06/22/24 06/23/24 06/24/24 04:18 04:29 04:25 ABG pH 7.45 7.46 H 7.29 L D ABG pCO2 57 H 53 H 80 H* D ABG pO2 60 L D 99 D 88 ABG HCO3 40 H 38 H 38 H ABG O2 Saturation 91 99 H 96 ABG Base Excess 14 H 13 H 9 H VBG pH VBG pCO2 VBG pO2 VBG Base Excess 06/24/24 06/25/24 06/25/24 08:50 05:13 11:02 ABG pH 7.40 D 7.46 H Cancelled ABG pCO2 61 H D 53 H Cancelled ABG pO2 110 H D 66 L D Cancelled ABG HCO3 38 H 38 H Cancelled ABG O2 Saturation 99 H 94 Cancelled ABG Base Excess 12 H 13 H Cancelled VBG pH VBG pCO2 VBG pO2 VBG Base Excess 06/25/24 06/26/24 06/26/24 15:53 04:13 11:40 ABG pH 7.39 7.41 7.46 H ABG pCO2 53 H 48 43 ABG pO2 55 L* 58 L* 58 L* ABG HCO3 32 H 30 H 31 H ABG O2 Saturation 86 L 89 L 92 ABG Base Excess 6 H 5 H 6 H VBG pH VBG pCO2 VBG pO2 VBG Base Excess 06/27/24 06/28/24 06/28/24 04:17 04:24 06:22 ABG pH 7.48 H 7.27 L D 7.22 L ABG pCO2 39 72 H* D 83 H* D ABG pO2 49 L* 71 L D 82 L ABG HCO3 29 H 33 H 34 H ABG O2 Saturation 87 L 93 95 ABG Base Excess 5 H 5 H 4 H VBG pH VBG pCO2 VBG pO2 VBG Base Excess 06/28/24 06/29/24 06/30/24 10:18 04:21 07:57 ABG pH 7.32 L D 7.41 7.41 ABG pCO2 64 H D 63 H 62 H ABG pO2 76 L 81 L 59 L* D ABG HCO3 33 H 40 H 40 H ABG O2 Saturation 95 97 88 L ABG Base Excess 6 H 14 H 13 H VBG pH VBG pCO2 VBG pO2 VBG Base Excess 07/02/24 07/03/24 07/04/24 04:05 04:45 04:11 ABG pH 7.46 H 7.43 7.38 ABG pCO2 53 H 58 H 67 H ABG pO2 77 L 100 D 73 L D ABG HCO3 38 H 39 H 40 H ABG O2 Saturation 96 98 94 ABG Base Excess 12 H 13 H 13 H VBG pH VBG pCO2 VBG pO2 VBG Base Excess 07/05/24 07/06/24 07/09/24 04:40 04:08 04:53 ABG pH 7.30 L 7.42 D 7.26 L ABG pCO2 87 H* D 67 H D 94 H* ABG pO2 132 H D 64 L D 149 H ABG HCO3 43 H 43 H 42 H ABG O2 Saturation 99 H 92 100 H ABG Base Excess 14 H 17 H 12 H VBG pH VBG pCO2 VBG pO2 VBG Base Excess 07/11/24 07/12/24 07/14/24 11:34 04:49 04:45 ABG pH 7.25 L 7.36 D ABG pCO2 106 H* D 94 H* D ABG pO2 67 L D 59 L* ABG HCO3 46 H 53 H ABG O2 Saturation 91 90 L ABG Base Excess 16 H 24 H VBG pH 7.38 VBG pCO2 74 H VBG pO2 148 H VBG Base Excess 16 H 07/14/24 07/15/24 07/16/24 09:21 10:24 04:35 ABG pH 7.42 7.25 L D ABG pCO2 83 H* D 115 H* D ABG pO2 61 L 70 L ABG HCO3 54 H 50 H ABG O2 Saturation 92 93 ABG Base Excess 27 H 20 H VBG pH 7.39 VBG pCO2 79 H VBG pO2 40 VBG Base Excess 21 H 07/16/24 07/18/24 09:20 04:39 ABG pH 7.32 L 7.35 ABG pCO2 95 H* D 92 H* ABG pO2 59 L* 60 L ABG HCO3 49 H 50 H ABG O2 Saturation 92 89 L ABG Base Excess 20 H 22 H VBG pH VBG pCO2 VBG pO2 VBG Base Excess Quality Measures Quality Measures sepsis Current suspected stage: sepsis (Resolved.) Possible source: pulmonary, GI tract/intra-abdominal, genitourinary and skin/soft tissue Blood cultures ordered: yes Antibiotic ordered: No Assessment & Plan Assessment Current Active Medications: Generic Name Dose Route Start Last Admin Trade Name Freq PRN Reason Stop Dose Admin Acetaminophen 650 mg 06/26/24 15:16 07/15/24 00:37 Acetaminophen Munira 325 Mg/10 Ml Udc GT 07/26/24 15:15 650 mg Q4HR PRN Administration Pain Or Fever > 100.3 Aspirin 81 mg 07/20/24 09:00 07/21/24 08:16 Aspirin 81 Mg Chew GT 08/19/24 08:59 81 mg QDAY JUAN JOSE Administration Atorvastatin Calcium 40 mg 07/21/24 21:00 Atorvastatin Calcium 20 Mg Tablet GT 08/20/24 20:59 HS JUAN JOSE Calcium Carbonate 600 mg 06/28/24 13:00 07/20/24 13:08 Calcium Carbonate 600 Mg Tablet GT 07/28/24 12:59 600 mg QDAY@1300 JUAN JOSE Administration Docusate Sodium 100 mg 06/25/24 09:13 Docusate Sod Liqd 100 Mg/10 Ml Udc PO 07/22/24 08:59 BID PRN Constipation Protocol Emtricitabine/Tenofovir 1 tab 07/06/24 11:30 07/21/24 08:18 Emtricitabine 200 Mg/Tenofovir 300 Mg Tab (Non-Form) PO 08/19/24 14:33 1 tab QDAY JUAN JOSE Administration Enoxaparin Sodium 80 mg 07/15/24 21:00 07/21/24 08:15 Enoxaparin Sod Inj 80 Mg/0.8 Ml Syringe SC 10/11/24 08:00 80 mg BID JUAN JOSE Administration Ferrous Sulfate 300 mg 07/02/24 10:00 07/21/24 08:14 Ferrous Sulfate 300 Mg/5 Ml Udc GT 07/23/24 09:59 300 mg QDAY JUAN JOSE Administration Gabapentin 400 mg 07/13/24 21:00 07/21/24 08:16 Gabapentin 100 Mg Capsule GT 08/12/24 20:59 400 mg BID JUAN JOSE Administration Norepinephrine/Dextrose 8 mg in 250 mls @ 6.319 mls/hr 06/30/24 04:17 07/09/24 11:30 Levophed In D5w 8mg/250ml IV 07/30/24 04:16 0 mcg/kg/min .Q24H PRN 0 mls/hr PER PROTOCOL Titration Protocol 0.05 MCG/KG/MIN Methadone HCl 10 mg 07/21/24 06:00 07/21/24 06:08 Methadone Hcl 10 Mg Tablet GT 07/26/24 05:59 10 mg TID JUAN JOSE Administration Methylprednisolone 5 mg 07/22/24 09:00 Methylprednisolone 4 Mg Tablet GT 08/21/24 08:59 QDAY JUAN JOSE Modafinil 100 mg 07/18/24 09:00 07/21/24 08:16 Modafinil 100 Mg Tablet PO 08/17/24 08:59 100 mg QDAY JUAN JOSE Administration Pantoprazole Sodium 40 mg 07/07/24 09:32 07/21/24 08:15 Pantoprazole Inj 40 Mg Vial IV 08/06/24 09:31 40 mg QDAY JUAN JOSE Administration Raltegravir 400 mg 07/06/24 11:30 07/21/24 08:16 Raltegravir 400 Mg Tablet NG 08/19/24 14:33 400 mg BID JUAN JOSE Administration Trimethoprim/Sulfamethoxazole 20 ml 07/20/24 11:00 07/20/24 11:57 Trimethoprim 160 Mg/Sulfa 800 Mg Susp 20 Ml Udc GT 07/25/24 10:59 20 ml QDAY@1100 JUAN JOSE Administration Plan 39-year-old male patient with no PMHx who initially presented to [facility] 05/27/[facility]24 with a chief complaint of shortness of breath and cough, with associated chills, body aches, generalized weakness, fever, and night sweats beginning weeks prior but progressively worsening over a few days is currently being treated for acute hypoxic respiratory failure secondary to PCP pneumonia that was complicated by ventilator associated pneumonia. Patient is currently on tracheostomy tube and mechanically ventilated. 07/21/2023; Patient was seen and examined by bedside, no acute overnight events reported, physical exam remains unchanged patient's neuroexam limited to opening eyes to verbal stimuli and blink reflex, continues to be tachycardic with rate in lower 120s, no leukocytosis, negative Procal, blood cultures/urine cultures/sputum Gram stain-cultures were collected, will follow-up on results and meantime no change to antibiotic therapy as patient's labs including CBC/CMP unchanged from prior except for improving LFTs. Sputum cultures was negative for AFB/coccidiomycosis. Will continue patient on current management of HAART therapy, Bactrim, TID Methadone& Gabapentin along with Methylprednisolone. NEURO Acute encephalopathy DDx; Multifactorial in setting of CVA/Medications/Metabolic/ and prolonged ICU stay. 06/05/2024 Patient was intubated, sedated, and paralyzed for ARDS. -We decreased the methadone dose to 10 Mg 3 times daily, and we will keep continuing gabapentin 400 Mg twice daily. Modafinil 100 Mg daily was started to wake him up. #Rt Parietal ischemic Stroke MRI on 07/08 Large area of restricted diffusion in the left frontal parietal white matter and small foci in the right parietal white matter most consistent with acute infarction -On aspirin 81mg daily and atorvastatin 80mg daily at night. #Fever, resolved #Withdrawal syndrome, stable Multiple cultures has been negative -Repeat influenza and COVID test on 07/04 negative -Repeat blood, urine and sputum culture are negative -Treat underlying condition -Tylenol as needed CARDIO #Right subclavian and axillary vein DVT. -Doppler US right upper extremity 06/17/24: revealed RUE DVT -On Heparin Drip 06/17-07/09, On Enoxaparin 75mg BID 07/11- #Sinus tachycardia Tachycardia most likely secondary to acute respiratory distress syndrome contributed by withdrawal while tapering the dose of IV sedatives -Continue to treat underlying cause #Shock, resolved Most likely 2/2 sedation. BC has been negative and on appropriate antibiotics Patient presented with septic shock secondary to severe extensive bilateral pneumonia. After resolution of initial septic shock, patient developed new hypotension, tachycardia, tachypnea, fevers indicated of septic shock. -Pressor support as needed -Linezolid (started 06/27-07/04) -Meropenem (started 06/27-07/04) -Urine (06/27) showed resistant staph epi -Blood (06/27) showed resistant Staphylococcus haemolyticus -repeat blood cultures and urine cultures negative -taper down sedatives as tolerated PULM #Chronic hypoxic respiratory failure 2/2 # Acute respiratory distress syndrome in the setting of post PCP pneumonia state Secondary to #Bilateral pneumocystis jirovecii pneumonia, resolved #Healthcare associated pneumonia, resolved, resolved #Ventilator associated pneumonia, resolved #S/P Tracheostomy #Pneumomediastinum, resolved -ABG done on 07/14/24 showed improvement. On vent support -Titrate down FiO2 as tolerated GI GI prophylaxis: IV pantoprazole 40 Mg daily #Elevated LFTs 2/2 HIV DDx: adverse affect of drugs, we had discontinued oxycodone previously, and phenobarbitol Liver enzymes started trending down after discontinuing oxycodone and phenobarbitol. liver US 05/30/2024 showed normal gallbladder and hepatomegaly without lesions or evidence of obstructions. Hep panel negative. LFTs downtrending Plan: -Continue monitoring #Hypertriglyceridemia, down trending secondary to propofol use, -Discontinued propofol NEPHRO #WILL Patient has WILL likely 2/2 congestion -Diamox 500mg IV BID started due to -Monitor UOP and renal panel -Consider alternative to Bactrim #Central diabetes insipidus, resolved #Hypophosphatemia, repleted #Hypokalemia -Repleted with KCL 40 meq x1, -On 20meq BID Liquid KCL #Mild hyponatremia Secondary to SIADH due to acute hypoxic respiratory failure leading to pulmonary distress -Continue to monitor #Hyperphosphetemia, stable -on sevelamir 800mg TID and calcium carbonate 600mg daily #NAGMA #Primary Respiratory acidosis compensated by metabolic alkalosis Secondary to increased work of breathing and increased RR 2/2 chronic hypoxic respiratory failure and chronic respiratory distress syndrome in the setting of tapering down of IV sedatives -ABGs 07/12 pH of 7.25, pCO2 106, bicarb 46 -We will treat the underlying cause respiratory acidosis HEME #Leukocytosis Likely reactive as we are tapering down sedatives and is still on steroid #Microcytic anemia 2/2 STEPHY and Inflammatory anemia Stable, has not required any transfusions this admission thus far. Clinically no evidence of bleeding. Iron panel shows iron 17, TIBC 262, iron saturation 6, unsaturated iron binding 245. Peripheral blood film confirms microcytic hypochromic anemia with target cells. Also daily lab draws contributing. Patient required x1 PRBC for Hg 6.9. Plan: -Started on oral ferrous sulfate 300 Mg daily -Feraheme 510mg was given x1 on 07/15/24 -Monitor H&H. Transfusing for Hgb <7 #Thrombocytosis, resolved Likely reactive in the setting of withdrawal syndrome -Continue to monitor ENDO #Hypoglycemia, resolved ID #Bilateral pneumocystis pneumonia, resolved #Healthcare associated pneumonia, resolved #Ventilator associated pneumonia, resolved #PCP pneumonia prophylaxis Negative studies: Cocci IgM and IgG, Hepatitis panel, Syphilis, Legionella, H.flu, N.meningitidis, Strep B, Strep pneumoniae, COVID, RSV, Flu A & B. TB quantiferon GOLD-indeterminate, however 06/05 AFB negative, CMV IgM, cryptococcal antigen negative. G6PD levels came back normal for consideration of dapsone alternative to Bactrim if needed. Patient completed 5 day course of azithromycin, 16 days of Zosyn. See Pulm for timeline of antimicrobial coverage. On 06/27 patient developed new septic shock Plan: -Antibiotcs Bactrim for prevention of PCP pneumonia in the setting of CD4 count of 116 -Linezolid and meropenum restarted on 06/27/2024-07/04/24 -Urine ackerman port grew GPC, Staph epidermidis that is MDR, sensitive to linezolid. -Fungal cultures from BAL pending, follow-up on results -Blood cultures from 06/26/2024 and 06/27/2024, negative so far, cultures drawn on 06/29/2024 is pending -Follow up blood, sputum, and urine cultures were negative -Repeat blood, urine, sputum cultures were ordered on 07/07/2024- negative #AIDS/HIV Continue HAART regimen. Continue Bactrim 20ml PO daily for prophylaxis #IRIS---Resolved Tappering off steroids slowely. MSK #Elevated creatine kinase---Resolved. 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 DVT prophylaxis: On enoxaparin 80mg BID for treatment of right upper extremity DVT GI prophylaxis: Pantoprazole 40 mg IV qday Diet: Tube feeds Ackerman:Condom cath Lines: PIV Antibiotics: Bactrim CODE STATUS: DNR/DNI Patient's plan of care discussed with attending Dr. Justin Magallanes, PGY-3 Attending Provider Attestation/Addendum Patient seen and examined with above resident, Rai Magallanes MD. I agree with the findings, assessment, and plan of care as documented except for any differences below. Patient still slightly tachycardic, remains in sinus rhythm. He is opening his eyes more and now having more reflexes. Patient remains on daily modafinil. 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 Continue to plan for slow weaning from methadone as tolerated. Patient continues to have adequate bowel movements. Skin remains intact with appropriate rotation of position. Patient remains on stable SIMV settings however developed hypoxia and tachypnea later in the day warranting increase separate to offload pressure support breaths. Patient improved after this but gradually hypotensive warranting volume resuscitation to which she responded. Will recheck labs tomorrow morning to assess for any additional changes. Patient otherwise remained stable for planned transfer to long-term acute care in the coming days. He is pending insurance authorization. Patient's family was updated at bedside and remain hopeful that he continues to slowly improve though they understand that he may plateau at some point. Maintained on Ortega therapy and Bactrim prophylaxis. Continue slow taper of steroids for IRIS prevention. Total critical care time: I personally spent 35 minutes for review of physiologic parameters, directing plan of care throughout the day, coordination of care with other subspecialties, and counseling patient's family at bedside. This is exclusive of time spent teaching housestaff or performing any separate billable procedures. Patient continues to require critical care services for acute hypoxic respiratory failure now in fibrotic phase of ARDS secondary to PCP pneumonia superimposed by recurrent bouts of ventilator associated pneumonia. Patient remains at risk for further morbidity and mortality warranting continued close monitoring only available in intensive care unit setting.
[2024-07-21 10:59] LABS: Vitamin D 25 Hydroxy Total 22.5 ng/mL (7.3-40.2)
[2024-07-21] MEDS: TRIMETHOPRIM 160 MG/SULFA 800 MG SUSP 20 ML UDC GT (11:09)
--- NOTE | 2024-07-21 13:15 | PC.SS ---
FINANCIAL ANALYST INTERN attempted phone contact with [facility] staff, Darius ; to obtain update on authorization status. No response. FINANCIAL ANALYST INTERN left message requesting return call.
[2024-07-21] MEDS: CALCIUM CARBONATE 600 MG TABLET GT (13:16)
--- NOTE | 2024-07-21 14:48 | PC.SS ---
Update: Patient Trach/PEG. Vitals are stable. Patient is not receiving pressors or drip. Stable for transport. Authorization pending.
--- NOTE | 2024-07-21 15:14 | PC.SS ---
WEIGHT REDUCTION SPECIALIST received phone call from [facility] staff, Darius; that authorization has been obtained for the patient. [facility] Room [address], [address] [place] [address]; . WEIGHT REDUCTION SPECIALIST confirmed with ICU resident that patient is stable for transport. WEIGHT REDUCTION SPECIALIST to inquire about scheduling respiratory rider for transport. Transport to be scheduled for 07-22-24.
--- NOTE | 2024-07-21 15:18 | PC.SS ---
CHAIR INSPECTOR contacted respiratory lead, Annie; to request respiratory rider for LTAC transport. CHAIR INSPECTOR informed respiratory can have a rider present for transport on 07-22-24.
--- NOTE | 2024-07-21 15:20 | PC.SS ---
METAL ROOFER conducted phone contact with patient's medical surrogate decision maker, Francesca Owen; confirming that authorization for placement has been obtained for patient. METAL ROOFER informed medical surrogate decision maker location is [facility]. Patient's medical decision maker in agreement with discharge plan. Plan is to transport patient to LTAC on 07-22-24.
--- NOTE | 2024-07-21 15:34 | XR_ITS ---
Examination: AP chest single view Technique one AP upright portable chest single view Exam date and time: July 21, 2024 1542 hours Comparison July 14, 2024 INDICATIONS: Difficulty breathing this week, hypoxic respiratory failure, severe pneumonia ARDS on earlier chest imaging FINDINGS: Severe bilateral lung opacity Tracheostomy tube tip 4.6 cm above sunil Normal heart size IMPRESSION: No significant change in severe bilateral pneumonia ARDS pattern
--- NOTE | 2024-07-21 15:45 | PC.SS ---
SALES AGENT CASUALTY INSURANCE informed by ICU resident to hold scheduling of transport. Patient's carbon monoxide level has increased. Transition to LTAC placement on hold.
--- NOTE | 2024-07-21 15:56 | PC.SS ---
HOROLOGIST informed respiratory staff, bedside nurse, LTAC staff and patient's family that transport for 07-22-24 on hold. HOROLOGIST will follow up with ICU staff on 07-22-24 to determine if patient is stable for transport.
[2024-07-21 16:45] LABS: Allen Test Performed/OK; Base Excess 14 (-3-3); HCO3 44 mEq/L (20-26); Inspired Oxygen, FIO2 21 %; O2 Saturation 96 % (91-98); PCO2 106 mmHg (32.0-48.0); PO2 95 mmHg (83-108); Puncture Site Right Radial; pH, Arterial 7.23 (7.35-7.45)
[2024-07-21] MEDS: ALBUTEROL/IPRATROPIUM (Duoneb) RT SOL 3 ML NEBU INH ×2 (18:55→22:47)
[2024-07-21] MEDS: ATORVASTATIN CALCIUM 20 MG TABLET 40 MG GT (20:47)
[2024-07-21] MEDS: RINGERS LACTATED 500 ML 500 ML 999 ML IV (23:10)
[2024-07-21] MEDS: RINGERS LACTATED 1000 ML 1,000 ML 999 ML IV (23:57)
[2024-07-22] VITALS (95 sets, daily range): BP systolic 74–108; BP diastolic 39–71; PULSE 109–125; RESP 11–30; TEMP 36.5–37.5; O2SAT 89–100; BMI 24.0
[2024-07-22] MEDS: ALBUTEROL/IPRATROPIUM (Duoneb) RT SOL 3 ML NEBU INH ×6 (02:15→23:20)
[2024-07-22] MEDS: METHADONE HCL 10 MG TABLET GT ×3 (05:34→21:30)
[2024-07-22] MEDS: RINGERS LACTATED 1000 ML 500 ML 999 ML IV (08:09)
[2024-07-22] MEDS: EMTRICITABINE 200 MG/TENOFOVIR 300 MG TAB (NON-FORM) 1 TAB PO (08:25)
[2024-07-22] MEDS: RALTEGRAVIR 400 MG TABLET NG (08:26)
[2024-07-22] MEDS: ENOXAPARIN SOD INJ 80 MG/0.8 ML SYRINGE SC ×2 (08:30→20:48)
[2024-07-22] MEDS: Ferrous Sulfate 300 MG/5 ML UDC GT (08:30)
[2024-07-22] MEDS: ASPIRIN 81 MG CHEW GT (08:30)
[2024-07-22] MEDS: PANTOPRAZOLE INJ 40 MG VIAL IV (08:35)
[2024-07-22] MEDS: modafiniL 100 MG TABLET PO (08:35)
[2024-07-22] MEDS: GABAPENTIN 100 MG CAPSULE 400 MG GT ×2 (08:35→20:48)
[2024-07-22] MEDS: methylPREDNISolone 4 MG TABLET GT (08:37)
--- NOTE | 2024-07-22 08:53 | PC.SS ---
Update: [facility] REDEVELOPMENT SPECIALIST confirmed with ICU cotton acreage measurer patient currently not medically stable for transport due to low blood pressure.
--- NOTE | 2024-07-22 09:21 | PD.IDPROG ---
Subjective Subjective Interval history: pt with variable status. exam benign, single pos bc noted. may be contaminant, but too early to tell Exam Vital Signs Temp Pulse Resp BP Pulse Ox O2 Del Method O2 Flow Rate 98.9 F 109 H 22 H 88/54 L 97 Mechanical Ventilation 70 07/22/24 08:00 07/22/24 09:00 07/22/24 06:32 07/22/24 09:00 07/22/24 09:00 07/22/24 04:00 07/15/24 17:34 FiO2 70 07/22/24 08:00 Objective - Internal Medicine Labs 07/22/24 09:31 07/22/24 09:31 Labs: Laboratory Results - last 24 hr 07/21/24 07/21/24 04:20 16:10 Puncture Site Right Radial ABG pH 7.23 L ABG pCO2 106 H* ABG pO2 95 ABG HCO3 44 H ABG O2 Saturation 96 ABG Base Excess 14 H FiO2 21 25-OH Vitamin D Total 22.5 ABG Interpretation ABG results: 05/27/24 05/29/24 05/29/24 23:37 10:44 22:08 ABG pH 7.51 H 7.50 H 7.48 H ABG pCO2 28 L 32 32 ABG pO2 75 L 79 L 145 H D ABG HCO3 23 25 24 ABG O2 Saturation 96 95 98 ABG Base Excess 0 2 1 VBG pH VBG pCO2 VBG pO2 VBG Base Excess 05/30/24 05/31/24 06/04/24 08:45 04:54 02:10 ABG pH 7.47 H 7.45 7.45 ABG pCO2 35 38 36 ABG pO2 86 D 82 L 139 H ABG HCO3 26 26 25 ABG O2 Saturation 97 96 98 ABG Base Excess 2 2 1 VBG pH VBG pCO2 VBG pO2 VBG Base Excess 06/04/24 06/05/24 06/05/24 18:16 11:36 12:59 ABG pH 7.44 7.11 L* D 7.20 L ABG pCO2 36 94 H* D 68 H D ABG pO2 80 L D 150 H D 121 H D ABG HCO3 24 30 H 26 ABG O2 Saturation 94 97 97 ABG Base Excess 0 -2 -3 VBG pH VBG pCO2 VBG pO2 VBG Base Excess 11/06/06/24 06/06/24 19:25 04:13 15:27 ABG pH 7.22 L 7.27 L 7.30 L ABG pCO2 64 H 57 H 60 H ABG pO2 122 H 153 H D 74 L D ABG HCO3 26 26 29 H ABG O2 Saturation 97 99 H 92 ABG Base Excess -3 -2 2 VBG pH VBG pCO2 VBG pO2 VBG Base Excess 06/07/24 06/07/24 06/08/24 03:55 09:59 04:20 ABG pH 7.41 D 7.43 7.45 ABG pCO2 56 H 55 H 50 H ABG pO2 293 H D 78 L D 75 L ABG HCO3 36 H 37 H 35 H ABG O2 Saturation 99 H 95 94 ABG Base Excess 10 H 11 H 10 H VBG pH VBG pCO2 VBG pO2 VBG Base Excess 06/08/24 06/08/24 06/08/24 11:05 11:50 13:18 ABG pH 7.17 L* D 7.10 L* 7.15 L* ABG pCO2 95 H* D 115 H* D 88 H* D ABG pO2 89 75 L 72 L ABG HCO3 34 H 36 H 31 H ABG O2 Saturation 92 84 L 85 L ABG Base Excess 3 4 H 0 VBG pH VBG pCO2 VBG pO2 VBG Base Excess 06/08/24 06/09/24 06/09/24 17:02 01:33 03:15 ABG pH 7.18 L* 7.22 L 7.27 L ABG pCO2 50 H D 91 H* D 82 H* ABG pO2 82 L 105 D 86 ABG HCO3 19 L 37 H 38 H ABG O2 Saturation 93 97 95 ABG Base Excess -9 L 7 H 9 H VBG pH VBG pCO2 VBG pO2 VBG Base Excess 06/09/24 06/09/24 06/10/24 05:08 12:52 04:40 ABG pH 7.31 L 7.33 L 7.30 L ABG pCO2 75 H* 57 H D 78 H* D ABG pO2 97 158 H D 65 L D ABG HCO3 38 H 30 H 38 H ABG O2 Saturation 97 99 H 90 L ABG Base Excess 10 H 3 9 H VBG pH VBG pCO2 VBG pO2 VBG Base Excess 1106/11/24 06/12/24 09:40 04:19 04:15 ABG pH 7.27 L 7.35 7.48 H D ABG pCO2 88 H* D 86 H* 63 H D ABG pO2 65 L 70 L 76 L ABG HCO3 40 H 48 H 47 H ABG O2 Saturation 89 L 93 95 ABG Base Excess 10 H 19 H 21 H VBG pH VBG pCO2 VBG pO2 VBG Base Excess 06/13/24 06/14/24 06/15/24 07:22 04:32 03:45 ABG pH 7.46 H 7.48 H 7.46 H ABG pCO2 56 H 40 D 37 ABG pO2 80 L 64 L 71 L ABG HCO3 39 H 30 H 27 H ABG O2 Saturation 95 92 94 ABG Base Excess 13 H 6 H 3 VBG pH VBG pCO2 VBG pO2 VBG Base Excess 06/15/24 06/15/24 06/15/24 10:17 12:20 14:20 ABG pH 7.01 L* D 7.00 L* 7.03 L* ABG pCO2 122 H* D 130 H* 125 H* ABG pO2 91 D 88 82 L ABG HCO3 31 H 32 H 33 H ABG O2 Saturation 88 L 88 L 87 L ABG Base Excess -3 -2 -1 VBG pH VBG pCO2 VBG pO2 VBG Base Excess 06/15/24 06/15/24 06/16/24 15:55 20:39 00:35 ABG pH 7.03 L* 7.08 L* 7.10 L* ABG pCO2 121 H* 116 H* 118 H* ABG pO2 99 117 H 102 ABG HCO3 32 H 34 H 37 H ABG O2 Saturation 93 97 96 ABG Base Excess -1 2 4 H VBG pH VBG pCO2 VBG pO2 VBG Base Excess 06/16/24 06/16/24 06/17/24 04:45 08:55 05:06 ABG pH 7.17 L* 7.28 L D 7.33 L ABG pCO2 112 H* 88 H* D 96 H* ABG pO2 155 H D 98 D 126 H D ABG HCO3 41 H 41 H 50 H ABG O2 Saturation 99 H 98 99 H ABG Base Excess 9 H 12 H 21 H VBG pH VBG pCO2 VBG pO2 VBG Base Excess 06/17/24 06/17/24 06/18/24 10:58 13:55 04:16 ABG pH 7.29 L 7.29 L 7.33 L ABG pCO2 106 H* D 106 H* 86 H* D ABG pO2 58 L* D 61 L 77 L ABG HCO3 51 H 51 H 45 H ABG O2 Saturation 87 L 88 L 95 ABG Base Excess 21 H 21 H 17 H VBG pH VBG pCO2 VBG pO2 VBG Base Excess 06/19/24 06/20/24 06/21/24 04:18 04:49 04:06 ABG pH 7.42 7.36 7.44 ABG pCO2 63 H D 74 H* D 61 H D ABG pO2 66 L 55 L* 202 H D ABG HCO3 41 H 42 H 42 H ABG O2 Saturation 93 87 L 100 H ABG Base Excess 15 H 14 H 16 H VBG pH VBG pCO2 VBG pO2 VBG Base Excess 06/22/24 06/23/24 06/24/24 04:18 04:29 04:25 ABG pH 7.45 7.46 H 7.29 L D ABG pCO2 57 H 53 H 80 H* D ABG pO2 60 L D 99 D 88 ABG HCO3 40 H 38 H 38 H ABG O2 Saturation 91 99 H 96 ABG Base Excess 14 H 13 H 9 H VBG pH VBG pCO2 VBG pO2 VBG Base Excess 06/24/24 06/25/24 06/25/24 08:50 05:13 11:02 ABG pH 7.40 D 7.46 H Cancelled ABG pCO2 61 H D 53 H Cancelled ABG pO2 110 H D 66 L D Cancelled ABG HCO3 38 H 38 H Cancelled ABG O2 Saturation 99 H 94 Cancelled ABG Base Excess 12 H 13 H Cancelled VBG pH VBG pCO2 VBG pO2 VBG Base Excess 06/25/24 06/26/24 06/26/24 15:53 04:13 11:40 ABG pH 7.39 7.41 7.46 H ABG pCO2 53 H 48 43 ABG pO2 55 L* 58 L* 58 L* ABG HCO3 32 H 30 H 31 H ABG O2 Saturation 86 L 89 L 92 ABG Base Excess 6 H 5 H 6 H VBG pH VBG pCO2 VBG pO2 VBG Base Excess 06/27/24 06/28/24 06/28/24 04:17 04:24 06:22 ABG pH 7.48 H 7.27 L D 7.22 L ABG pCO2 39 72 H* D 83 H* D ABG pO2 49 L* 71 L D 82 L ABG HCO3 29 H 33 H 34 H ABG O2 Saturation 87 L 93 95 ABG Base Excess 5 H 5 H 4 H VBG pH VBG pCO2 VBG pO2 VBG Base Excess 06/28/24 06/29/24 06/30/24 10:18 04:21 07:57 ABG pH 7.32 L D 7.41 7.41 ABG pCO2 64 H D 63 H 62 H ABG pO2 76 L 81 L 59 L* D ABG HCO3 33 H 40 H 40 H ABG O2 Saturation 95 97 88 L ABG Base Excess 6 H 14 H 13 H VBG pH VBG pCO2 VBG pO2 VBG Base Excess 07/02/24 07/03/24 07/04/24 04:05 04:45 04:11 ABG pH 7.46 H 7.43 7.38 ABG pCO2 53 H 58 H 67 H ABG pO2 77 L 100 D 73 L D ABG HCO3 38 H 39 H 40 H ABG O2 Saturation 96 98 94 ABG Base Excess 12 H 13 H 13 H VBG pH VBG pCO2 VBG pO2 VBG Base Excess 07/05/24 07/06/24 07/09/24 04:40 04:08 04:53 ABG pH 7.30 L 7.42 D 7.26 L ABG pCO2 87 H* D 67 H D 94 H* ABG pO2 132 H D 64 L D 149 H ABG HCO3 43 H 43 H 42 H ABG O2 Saturation 99 H 92 100 H ABG Base Excess 14 H 17 H 12 H VBG pH VBG pCO2 VBG pO2 VBG Base Excess 07/11/24 07/12/24 07/14/24 11:34 04:49 04:45 ABG pH 7.25 L 7.36 D ABG pCO2 106 H* D 94 H* D ABG pO2 67 L D 59 L* ABG HCO3 46 H 53 H ABG O2 Saturation 91 90 L ABG Base Excess 16 H 24 H VBG pH 7.38 VBG pCO2 74 H VBG pO2 148 H VBG Base Excess 16 H 07/14/24 07/15/24 07/16/24 09:21 10:24 04:35 ABG pH 7.42 7.25 L D ABG pCO2 83 H* D 115 H* D ABG pO2 61 L 70 L ABG HCO3 54 H 50 H ABG O2 Saturation 92 93 ABG Base Excess 27 H 20 H VBG pH 7.39 VBG pCO2 79 H VBG pO2 40 VBG Base Excess 21 H 07/16/24 07/18/24 07/21/24 09:20 04:39 16:10 ABG pH 7.32 L 7.35 7.23 L ABG pCO2 95 H* D 92 H* 106 H* ABG pO2 59 L* 60 L 95 ABG HCO3 49 H 50 H 44 H ABG O2 Saturation 92 89 L 96 ABG Base Excess 20 H 22 H 14 H VBG pH VBG pCO2 VBG pO2 VBG Base Excess Assessment & Plan A&P Narrative pneumonia.pjp on bal noted. on preventive rx after acute rx of 21 with steroids hiv. infection, newly discovered in a heterosexual man. can not r/o ivdu as a presumptive aquisition cause resp failure, hypoxic with ards noted. variable O2 status jo ann, resolved. acute febrile illness. cause uncertain.rx empirical, cx unrevealing rash on rt arm. cause uncertain. stabilized, rt arm only he has hiv, gf reportedly was tested and is reportedly neg. ok for hiv rx as ordered. changed bactrim to once daily about 06/29. hiv rx is ongoing. if vl less than before we are ok. unless R is noted As noted before, not every one survives, he is only 39, but is newly discovered to have a very bad disease that is easier to manage if caught earlier. ok to maintain steroid rxn. for now. repeat cx noted. ok to be off flucon as cd4 >100 and crypto ag neg. will have to notify pt when he is awake of his findings. be sure that gf is tested as precaution. family states she is neg. lft's noted. can be caused by any of a number of factors. normal/neg bili noted. had a blip a few days ago and is trending favoably again today no change in rx noted await the tests ordered the other day. we usually do not repeat the hiv vl and cd4 for 3 mo after verifying s virus in system.so it may not be undetectable but should be lower than at onset. would not treat for cmv, am ok with a biopsy of the rt arm if felt needed. note neg syphilis screen and unilateral finding on arm await repeated hiv testing and R assay, to verify response to rx given variable status did not do R assay initially it seems as that result is not on file. vl and f/u labs pending from almost a week ago. likely delayed by the holiday. I will see again on thursday Time Spent With Patient Time: Total time spent is greater than 50% in coordination of care (as documented) at patient's floor/unit and/or counseling patient:
[2024-07-22 09:42] LABS: Base Excess, Venous 14 (-3-3); O2 Saturation, Venous 98 % (96-97); PCO2, Venous 59 mmHg (36-56); PO2, Venous 83 mmHg (15-58); pH, Venous 7.44 (7.33-7.66)
[2024-07-22 09:43] LABS: Basophils # (Auto) 0.1 Thou/mm3 (0.0-0.2); Basophils % (Auto) 1 % (0-2.5); Eosinophils # (Auto) 0.1 Thou/mm3 (0.0-0.5); Eosinophils % (Auto) 1 % (0-10); Hematocrit 28.4 % (41.0-53.0); Immature Granulocytes % (Auto) 1 % (0-0); Immature Granulocytes Auto 0.15 Thou/mm3 (0.00-0.00); Lymphocytes # (Auto) 1.2 Thou/mm3 (1.0-4.8); Lymphocytes % (Auto) 10 % (10-50); Mean Corpuscular HGB Conc 27.1 g/dl (31.0-37.0); Mean Corpuscular Volume 100 fL (80-100); Monocytes # (Auto) 1.2 Thou/mm3 (0.0-0.8); Monocytes % (Auto) 10 % (0-12); Neutrophils # (Auto) 9.1 Thou/mm3 (1.8-7.7); Neutrophils % (Auto) 77 % (37-80); Nucleated Red Blood Cell # 0.06 Thou/mm3 (0.00-0.00); Nucleated Red Blood Cell % 1 /100 WBC (0); Platelet Count 250 Thou/mm3 (140-440); RDW Standard Deviation 88.5 fL (35.1-43.9); Red Blood Count 2.85 Miln/mm3 (4.50-5.90); White Blood Count 11.8 Thou/mm3 (3.8-10.6)
[2024-07-22 09:45] LABS: Hemoglobin 7.7 g/dL (13.5-16.0)
[2024-07-22 10:22] LABS: Anion Gap 7 (7-16); BUN/Creatinine Ratio 47 Ratio (12-20); Blood Urea Nitrogen 56 mg/dL (9-23); Calcium 8.4 mg/dL (8.3-10.6); Carbon Dioxide > 40.0 mMol/L (20.0-31.0); Chloride 105 mMol/L (98-107); Creatinine (Component) 1.2 mg/dL (0.6-1.3); Estimated Creatinine Clearance 75.3 mL/min (>60); Glucose 116 mg/dL (74-106); Magnesium 2.4 mg/dL (1.6-2.6); Osmolality,Calculated 318 (275-295); Phosphorous 6.3 mg/dL (2.4-5.1); Potassium 5.3 mMol/L (3.4-5.1); Sodium 152 mMol/L (136-145); eGFR > 60 See Note
[2024-07-22 10:31] LABS: Lactate (Lactic Acid) 1.2 mMol/L (0.4-2.0)
[2024-07-22] MEDS: cefTRIAXone 2 GM in SODIUM CHLORIDE 0.9% (P) 50 ML IV (11:04)
[2024-07-22] MEDS: RINGERS LACTATED 1000 ML 1,000 ML 75 ML IV (11:10)
[2024-07-22] MEDS: TRIMETHOPRIM 160 MG/SULFA 800 MG SUSP 20 ML UDC GT (11:50)
--- NOTE | 2024-07-22 11:55 | PD.IDPROG ---
Subjective Subjective Interval history: pt with variable status. on iv rocephin started today looks like someone cancelled the viral load, so will re order it. cd4 down a bit but more or less the same. Exam Vital Signs Temp Pulse Resp BP Pulse Ox O2 Del Method O2 Flow Rate 98.9 F 110 H 22 H 79/50 L 100 Mechanical Ventilation 70 07/22/24 08:00 07/22/24 11:00 07/22/24 11:00 07/22/24 10:48 07/22/24 11:00 07/22/24 04:00 07/15/24 17:34 FiO2 60 07/22/24 10:48 Narrative Exam on 50% on vent. sedated. ventilated. no questions from family. Objective - Internal Medicine Labs 07/22/24 09:31 07/22/24 09:31 Labs: Laboratory Results - last 24 hr 07/21/24 07/22/24 16:10 09:31 WBC 11.8 H RBC 2.85 L Hgb 7.7 L Hct 28.4 L MCV 100 MCH 27.0 MCHC 27.1 L RDW Std Deviation 88.5 H Plt Count 250 D Neut % (Auto) 77 Lymph % (Auto) 10 Edmunds % (Auto) 10 Eos % (Auto) 1 Baso % (Auto) 1 Neut # (Auto) 9.1 H Lymph # (Auto) 1.2 Edmunds # (Auto) 1.2 H Eos # (Auto) 0.1 Baso # (Auto) 0.1 Immature Gran # (Auto) 0.15 H Absolute Nucleated RBC 0.06 H Immature Gran % 1 H Nucleated RBC % 1 H Puncture Site Right Radial ABG pH 7.23 L ABG pCO2 106 H* ABG pO2 95 ABG HCO3 44 H ABG O2 Saturation 96 ABG Base Excess 14 H VBG pH 7.44 VBG pCO2 59 H VBG pO2 83 H VBG O2 Sat (Georges) 98 H VBG Base Excess 14 H FiO2 21 Sodium 152 H Potassium 5.3 H D Chloride 105 Carbon Dioxide > 40.0 H Anion Gap 7 BUN 56 H Creatinine 1.2 Estim Creat Clear Calc 75.3 eGFR > 60 BUN/Creatinine Ratio 47 H Glucose 116 H Calculated Osmolality 318 H Lactic Acid 1.2 Calcium 8.4 Phosphorus 6.3 H Magnesium 2.4 ABG Interpretation ABG results: 11/03/1205/29/24 05/29/24 23:37 10:44 22:08 ABG pH 7.51 H 7.50 H 7.48 H ABG pCO2 28 L 32 32 ABG pO2 75 L 79 L 145 H D ABG HCO3 23 25 24 ABG O2 Saturation 96 95 98 ABG Base Excess 0 2 1 VBG pH VBG pCO2 VBG pO2 VBG Base Excess 05/30/24 05/31/24 06/04/24 08:45 04:54 02:10 ABG pH 7.47 H 7.45 7.45 ABG pCO2 35 38 36 ABG pO2 86 D 82 L 139 H ABG HCO3 26 26 25 ABG O2 Saturation 97 96 98 ABG Base Excess 2 2 1 VBG pH VBG pCO2 VBG pO2 VBG Base Excess 06/04/24 06/05/24 06/05/24 18:16 11:36 12:59 ABG pH 7.44 7.11 L* D 7.20 L ABG pCO2 36 94 H* D 68 H D ABG pO2 80 L D 150 H D 121 H D ABG HCO3 24 30 H 26 ABG O2 Saturation 94 97 97 ABG Base Excess 0 -2 -3 VBG pH VBG pCO2 VBG pO2 VBG Base Excess 06/05/24 06/06/24 06/06/24 19:25 04:13 15:27 ABG pH 7.22 L 7.27 L 7.30 L ABG pCO2 64 H 57 H 60 H ABG pO2 122 H 153 H D 74 L D ABG HCO3 26 26 29 H ABG O2 Saturation 97 99 H 92 ABG Base Excess -3 -2 2 VBG pH VBG pCO2 VBG pO2 VBG Base Excess 06/07/24 06/07/24 06/08/24 03:55 09:59 04:20 ABG pH 7.41 D 7.43 7.45 ABG pCO2 56 H 55 H 50 H ABG pO2 293 H D 78 L D 75 L ABG HCO3 36 H 37 H 35 H ABG O2 Saturation 99 H 95 94 ABG Base Excess 10 H 11 H 10 H VBG pH VBG pCO2 VBG pO2 VBG Base Excess 06/08/24 06/08/24 06/08/24 11:05 11:50 13:18 ABG pH 7.17 L* D 7.10 L* 7.15 L* ABG pCO2 95 H* D 115 H* D 88 H* D ABG pO2 89 75 L 72 L ABG HCO3 34 H 36 H 31 H ABG O2 Saturation 92 84 L 85 L ABG Base Excess 3 4 H 0 VBG pH VBG pCO2 VBG pO2 VBG Base Excess 06/08/24 06/09/24 06/09/24 17:02 01:33 03:15 ABG pH 7.18 L* 7.22 L 7.27 L ABG pCO2 50 H D 91 H* D 82 H* ABG pO2 82 L 105 D 86 ABG HCO3 19 L 37 H 38 H ABG O2 Saturation 93 97 95 ABG Base Excess -9 L 7 H 9 H VBG pH VBG pCO2 VBG pO2 VBG Base Excess 06/09/24 06/09/24 06/10/24 05:08 12:52 04:40 ABG pH 7.31 L 7.33 L 7.30 L ABG pCO2 75 H* 57 H D 78 H* D ABG pO2 97 158 H D 65 L D ABG HCO3 38 H 30 H 38 H ABG O2 Saturation 97 99 H 90 L ABG Base Excess 10 H 3 9 H VBG pH VBG pCO2 VBG pO2 VBG Base Excess 06/10/24 06/11/24 06/12/24 09:40 04:19 04:15 ABG pH 7.27 L 7.35 7.48 H D ABG pCO2 88 H* D 86 H* 63 H D ABG pO2 65 L 70 L 76 L ABG HCO3 40 H 48 H 47 H ABG O2 Saturation 89 L 93 95 ABG Base Excess 10 H 19 H 21 H VBG pH VBG pCO2 VBG pO2 VBG Base Excess 06/13/24 06/14/24 06/15/24 07:22 04:32 03:45 ABG pH 7.46 H 7.48 H 7.46 H ABG pCO2 56 H 40 D 37 ABG pO2 80 L 64 L 71 L ABG HCO3 39 H 30 H 27 H ABG O2 Saturation 95 92 94 ABG Base Excess 13 H 6 H 3 VBG pH VBG pCO2 VBG pO2 VBG Base Excess 06/15/24 06/15/24 06/15/24 10:17 12:20 14:20 ABG pH 7.01 L* D 7.00 L* 7.03 L* ABG pCO2 122 H* D 130 H* 125 H* ABG pO2 91 D 88 82 L ABG HCO3 31 H 32 H 33 H ABG O2 Saturation 88 L 88 L 87 L ABG Base Excess -3 -2 -1 VBG pH VBG pCO2 VBG pO2 VBG Base Excess 06/15/24 06/15/24 06/16/24 15:55 20:39 00:35 ABG pH 7.03 L* 7.08 L* 7.10 L* ABG pCO2 121 H* 116 H* 118 H* ABG pO2 99 117 H 102 ABG HCO3 32 H 34 H 37 H ABG O2 Saturation 93 97 96 ABG Base Excess -1 2 4 H VBG pH VBG pCO2 VBG pO2 VBG Base Excess 06/16/24 06/16/24 06/17/24 04:45 08:55 05:06 ABG pH 7.17 L* 7.28 L D 7.33 L ABG pCO2 112 H* 88 H* D 96 H* ABG pO2 155 H D 98 D 126 H D ABG HCO3 41 H 41 H 50 H ABG O2 Saturation 99 H 98 99 H ABG Base Excess 9 H 12 H 21 H VBG pH VBG pCO2 VBG pO2 VBG Base Excess 06/17/24 06/17/24 06/18/24 10:58 13:55 04:16 ABG pH 7.29 L 7.29 L 7.33 L ABG pCO2 106 H* D 106 H* 86 H* D ABG pO2 58 L* D 61 L 77 L ABG HCO3 51 H 51 H 45 H ABG O2 Saturation 87 L 88 L 95 ABG Base Excess 21 H 21 H 17 H VBG pH VBG pCO2 VBG pO2 VBG Base Excess 06/19/24 06/20/24 06/21/24 04:18 04:49 04:06 ABG pH 7.42 7.36 7.44 ABG pCO2 63 H D 74 H* D 61 H D ABG pO2 66 L 55 L* 202 H D ABG HCO3 41 H 42 H 42 H ABG O2 Saturation 93 87 L 100 H ABG Base Excess 15 H 14 H 16 H VBG pH VBG pCO2 VBG pO2 VBG Base Excess 06/22/24 06/23/24 06/24/24 04:18 04:29 04:25 ABG pH 7.45 7.46 H 7.29 L D ABG pCO2 57 H 53 H 80 H* D ABG pO2 60 L D 99 D 88 ABG HCO3 40 H 38 H 38 H ABG O2 Saturation 91 99 H 96 ABG Base Excess 14 H 13 H 9 H VBG pH VBG pCO2 VBG pO2 VBG Base Excess 06/24/24 06/25/24 06/25/24 08:50 05:13 11:02 ABG pH 7.40 D 7.46 H Cancelled ABG pCO2 61 H D 53 H Cancelled ABG pO2 110 H D 66 L D Cancelled ABG HCO3 38 H 38 H Cancelled ABG O2 Saturation 99 H 94 Cancelled ABG Base Excess 12 H 13 H Cancelled VBG pH VBG pCO2 VBG pO2 VBG Base Excess 06/25/24 06/26/24 06/26/24 15:53 04:13 11:40 ABG pH 7.39 7.41 7.46 H ABG pCO2 53 H 48 43 ABG pO2 55 L* 58 L* 58 L* ABG HCO3 32 H 30 H 31 H ABG O2 Saturation 86 L 89 L 92 ABG Base Excess 6 H 5 H 6 H VBG pH VBG pCO2 VBG pO2 VBG Base Excess 06/27/24 06/28/24 06/28/24 04:17 04:24 06:22 ABG pH 7.48 H 7.27 L D 7.22 L ABG pCO2 39 72 H* D 83 H* D ABG pO2 49 L* 71 L D 82 L ABG HCO3 29 H 33 H 34 H ABG O2 Saturation 87 L 93 95 ABG Base Excess 5 H 5 H 4 H VBG pH VBG pCO2 VBG pO2 VBG Base Excess 06/28/24 06/29/24 06/30/24 10:18 04:21 07:57 ABG pH 7.32 L D 7.41 7.41 ABG pCO2 64 H D 63 H 62 H ABG pO2 76 L 81 L 59 L* D ABG HCO3 33 H 40 H 40 H ABG O2 Saturation 95 97 88 L ABG Base Excess 6 H 14 H 13 H VBG pH VBG pCO2 VBG pO2 VBG Base Excess 07/02/24 07/03/24 07/04/24 04:05 04:45 04:11 ABG pH 7.46 H 7.43 7.38 ABG pCO2 53 H 58 H 67 H ABG pO2 77 L 100 D 73 L D ABG HCO3 38 H 39 H 40 H ABG O2 Saturation 96 98 94 ABG Base Excess 12 H 13 H 13 H VBG pH VBG pCO2 VBG pO2 VBG Base Excess 07/05/24 07/06/24 07/09/24 04:40 04:08 04:53 ABG pH 7.30 L 7.42 D 7.26 L ABG pCO2 87 H* D 67 H D 94 H* ABG pO2 132 H D 64 L D 149 H ABG HCO3 43 H 43 H 42 H ABG O2 Saturation 99 H 92 100 H ABG Base Excess 14 H 17 H 12 H VBG pH VBG pCO2 VBG pO2 VBG Base Excess 07/11/24 07/12/24 07/14/24 11:34 04:49 04:45 ABG pH 7.25 L 7.36 D ABG pCO2 106 H* D 94 H* D ABG pO2 67 L D 59 L* ABG HCO3 46 H 53 H ABG O2 Saturation 91 90 L ABG Base Excess 16 H 24 H VBG pH 7.38 VBG pCO2 74 H VBG pO2 148 H VBG Base Excess 16 H 07/14/24 07/15/24 07/16/24 09:21 10:24 04:35 ABG pH 7.42 7.25 L D ABG pCO2 83 H* D 115 H* D ABG pO2 61 L 70 L ABG HCO3 54 H 50 H ABG O2 Saturation 92 93 ABG Base Excess 27 H 20 H VBG pH 7.39 VBG pCO2 79 H VBG pO2 40 VBG Base Excess 21 H 07/16/24 07/18/24 07/21/24 09:20 04:39 16:10 ABG pH 7.32 L 7.35 7.23 L ABG pCO2 95 H* D 92 H* 106 H* ABG pO2 59 L* 60 L 95 ABG HCO3 49 H 50 H 44 H ABG O2 Saturation 92 89 L 96 ABG Base Excess 20 H 22 H 14 H VBG pH VBG pCO2 VBG pO2 VBG Base Excess 07/22/24 09:31 ABG pH ABG pCO2 ABG pO2 ABG HCO3 ABG O2 Saturation ABG Base Excess VBG pH 7.44 VBG pCO2 59 H VBG pO2 83 H VBG Base Excess 14 H Assessment & Plan A&P Narrative pneumonia.pjp on bal noted. on preventive rx after acute rx of 22 with steroids hiv. infection, newly discovered in a heterosexual man. can not r/o ivdu as a presumptive aquisition cause resp failure, hypoxic with ards noted. variable O2 status jo ann, resolved. acute febrile illness. cause uncertain.rx empirical, cx unrevealing rash on rt arm. cause uncertain. stabilized, rt arm only he has hiv, gf reportedly was tested and is reportedly neg. ok for hiv rx as ordered. changed bactrim to once daily about 06/29. hiv rx is ongoing. if vl less than before we are ok. unless R is noted As noted before, not every one survives, he is only 39, but is newly discovered to have a very bad disease that is easier to manage if caught earlier. ok to maintain steroid rxn. for now. repeat cx noted. ok to be off flucon as cd4 >100 and crypto ag neg. will have to notify pt when he is awake of his findings. be sure that gf is tested as precaution. family states she is neg. lft's noted. can be caused by any of a number of factors. normal/neg bili noted. had a blip a few days ago and is trending favorably again value of added rocephin uncertain as ua benign. await the tests ordered the other day. we usually do not repeat the hiv vl and cd4 for 3 mo after verifying s virus in system would not treat for cmv, am ok with a biopsy of the rt arm if felt needed. note neg syphilis screen and unilateral finding on arm await repeated hiv testing and R assay, to verify response to rx given variable status did not do R assay initially it seems as that result is not on file. vl and f/u labs pending from almost a week ago. no hiv vl or r assay done. apparently cancelled by another provider. not me.re ordered both, as cd4 is fdown sl, so he may not be optimally controlled yet Time Spent With Patient Time: Total time spent is greater than 50% in coordination of care (as documented) at patient's floor/unit and/or counseling patient:
--- NOTE | 2024-07-22 12:02 | ESPR_ITS ---
<Statement entered by Cayetano Warner MD - 07/22/24 15:28> Overnight MAP was decreasing, he was given 2L of LR however his MAP remained downtrending, per NICOM he is fluid responsive and was given additional 500 cc of NS. Urine culture showed GNR and he was started on ceftriaxone IV. Will continue current management and wait for final urine culture results prior to LTAC transfer. At this moment no pressors required. Plan of care discussed with attending Dr. Anderson. Cayetano Warner MD, PGY 2. Disclaimer: This note was dictated by speech recognition. Minor errors in nitroglycerin distributor may be present due to voice recognition software. Documentation for date of: 07/22/24 Subjective Subjective Interval history: 07/13/24: The patient was evaluated and examined at the bedside this morning. Overnight, the patient was having severe tremors, and was started on Precedex drip, initially tremors resolved but later required midazolam 2 mg IV x 1 followed by midazolam 4 mg IV x 1 which resolved his tremors. He is still tachycardic in 110s. We will continue with the volume control setting at this point and start him on SIMV with TV 500cc, PS 15, PEEP 10 and RR 10 in the evening. We will continue with phenobarbital 60 Mg 3 times daily, decreased clonazepam to 0.5 Mg 3 times daily, continue with Precedex drip, and increased the dose of gabapentin to 400 Mg twice daily. We will do lab work every 72 hours. The plan is to try with SAT in a couple of days. 07/14/24: The patient was evaluated and examined at the bedside this morning. Patient did not had any overnight events. We have discontinued all IV sedatives, and we decreased the frequency of doses of phenobarbital 60 Mg twice daily, clonazepam 0.5 Mg twice daily, and will continue gabapentin 400 Mg twice daily along with methadone 20 Mg 3 times daily. Lung compliance seems to be improving. His white count was 15.1, ABG done revealed pCO2 83, bicarb 54 with phosphorus 2.3. Phosphorus and magnesium was repleted. Liver enzymes trending down. We ordered EEG to evaluate for any further anoxic brain injury. We will try to get SAT in a couple of days. 07/15/2024: The patient was evaluated and examined at the bedside this morning. No acute overnight events. We gave 1 dose of phenobarbital 30 Mg and stopped it. Clonazepam dose was decreased down to 0.25 Mg twice daily, we will continue with gabapentin 400 Mg twice daily and methadone was decreased to 15 Mg 3 times daily. Lung compliance seems to be improving, white count trending down, hemoglobin was 6.9 and 1 unit PRBC was ordered. VBG revealed pCO2 of 79, pO2 40 and pH 7.39. Mild elevation in liver enzymes, we will continue to monitor. EEG was significant for diffuse slowing of waveforms, but official reading pending. 07/16/2024: Patient seen and examined at bedside. No overnight events. Patient responsive to painful stimuli, opens eyes. Patient has decreasing urine output, Lasix 40 ordered. Kayexalate given for potassium 5.4. Patietn on pressure support overnight, morning ABG showed pH 7.25, pCO2 115, pO2 70. Changed to SIVM, repeat ABG showed pH 7.32, pCO2 95, pO2 59. 07/17/2024: The patient was seen and examined at the bedside. No overnight events. Patient has been still responsive to painful stimuli, tries to open his eyes when asked. Labs were significant for decreasing white count to 11.0, hemoglobin 7.4, sodium 147, potassium 3.0 was repleted with 40 mEq oral KCl, AST/ALT mildly elevated 151/123 with ALP 382. We decreased the methadone dose to 10 Mg 3 times daily, and we will keep continuing gabapentin 400 Mg twice daily. Modafinil 100 Mg daily was started to wake him up. 07/18/2024; Patient seen and examined by bedside, no overnight events reported. Continues to be stable and saturating well on same ventilator settings of SIMV, RR 15, TV 500, PS 10, and FiO2 of 70%. Labs noted for hypernatremia with Na 152, HCo3>40, ABG pH 7.35, paCO2 92 and SaO2 90%, Continue patient on same medication regimen with plan to decrease Methylprednisolone to 5 starting on 07/20/24, will also continue patient on Modafinil and start patient on anabolic steroid. Increased patient's free water flushes to 100cc q6hr from 50, gently increasing not to overload patient. Continue patient also on Acetazolamide twice daily for one day more. Continue to correct electrolytes as needed. long term plan to send patient to LTAC once more alert. 07/19/2024; patient was seen and examined by bedside this morning, no acute events overnight reported, appears more reactive this morning with opening eyes and moving them toward voice direction, remains hemodynamically stable on mechanical ventilation with saturation of 94% on 70% FiO2. No significant change in CBC this morning from 2 days ago, CMP noted for stable hyponatremia at 152, HCO3> 40, and mild elevation LFTs. Continue patient on current regimen of HAART, Bactrim, modafinil, gabapentin, therapeutic enoxaparin, atorvastatin and aspirin. Patient's methadone dose was decreased to twice daily, continuing methylprednisolone at 10 mg p.o. daily until 07/21, after which we will transition to methylprednisolone 5 mg daily after that. Discussed with rn social work to find placement for LTAC, search continues for accepting facility, family updated regarding patient's condition and management plan. 07/20/2024; Patient was seen and examined by bedside, no overnight events reported, physical exam unchanged from prior day patient's only noted for opening eyes to verbal stimuli and blink reflex, continues to be on same ventilatory settings saturating well. Vitals were noted for sinus tachycardia with HR in 120s, patient was given 500cc of LR bolus and 2mg of ivp morphine for evaluation of sinus tachycardia, no effect of saline bolus on heart rate, and morphine effect was short-lived, no wbc increase on yesterday's labs nor fever overnight, ackerman and central line were discontinued a few days prior, will order Bcx, Ucx, CXR and sputum culture for further workup, will also continue to monitor wbc and vitals and start treatment as warranted. Patient continues to be on Bactrim, HAART and therapeutic Enoxaparin, will increase patient's Methadone back to TID and taper down slowly. 07/21/2024; Patient was seen and examined by bedside, no acute overnight events reported, physical exam remains unchanged patient's neuroexam limited to opening eyes to verbal stimuli and blink reflex, continues to be tachycardic with rate in lower 120s, no leukocytosis, negative Procal, blood cultures/urine cultures/sputum Gram stain-cultures were collected, will follow-up on results and meantime no change to antibiotic therapy as patient's labs including CBC/CMP unchanged from prior except for improving LFTs. Sputum cultures was negative for AFB/coccidiomycosis. Will continue patient on current management of HAART therapy, Bactrim, TID Methadone& Gabapentin along with Methylprednisolone. 07/22/2024: Patient seen and examined at bedside, overnight patient's MAP trending low, patient was given 2 L LR, this morning BP 74/39, MAP 51, patient fluid responsive per NICOM, was given another liter bolus, patient will be started on maintenance fluids 75 cc/h, will consider starting low-dose pressors if blood pressure continues to remain low, patient's urine culture positive for gram-negative rods, patient started on ceftriaxone, will follow urine culture results, elevated WBC count noted as well. Will follow-up with neurology for the possibility of switching aspirin to Plavix for the underlying right parietal ischemic stroke otherwise will continue with methadone 10 three times daily, gabapentin 400 twice daily and modafinil in a.m. Continue Lovenox 80 mg subcutaneous twice daily for DVT treatment. Will continue HAART therapy and Bactrim for HIV/AIDS. Plan to continue methylprednisolone for 1 week and plan to taper after. Will continue to manage patient's urinary tract infection. Exam Vital Signs Temp Pulse Resp BP Pulse Ox O2 Del Method O2 Flow Rate 98.9 F 110 H 22 H 79/50 L 100 Mechanical Ventilation 70 07/22/24 08:00 07/22/24 11:00 07/22/24 11:00 07/22/24 10:48 07/22/24 11:00 07/22/24 04:00 07/15/24 17:34 FiO2 60 07/22/24 10:48 Narrative Exam GEN: Critically ill, not acutely distressed, mechanically ventilated, tracks objects with eyes. Neuro: Appears more reactive this morning, eye opening to voice with eye movements. HEENT: NCAT, tracheostomy tube on appropriate position. Pupils sluggish but reactive. CVS: Tachycardic, no M/R/G. No JVD Respi: Mechanically ventilated, b/l breath sounds heard, significant rhonchi in all lung rosas. ABD: Soft, no grimace to palpation, bowel sounds present in all 4 quadrants, PEG tube in appropriate place Skin: warm, dry and intact. Decubitus sacral ulcer noted. Extremities: Pulses 2+ in all extremities, BUE/BLE 2+ edema, ruptured vesicles 1-2 cm on the rt forearm surface that have been healing. Objective Labs 07/22/24 09:31 07/22/24 09:31 Labs: Laboratory Results - last 24 hr 07/21/24 07/22/24 16:10 09:31 WBC 11.8 H RBC 2.85 L Hgb 7.7 L Hct 28.4 L MCV 100 MCH 27.0 MCHC 27.1 L RDW Std Deviation 88.5 H Plt Count 250 D Neut % (Auto) 77 Lymph % (Auto) 10 Roberts % (Auto) 10 Eos % (Auto) 1 Baso % (Auto) 1 Neut # (Auto) 9.1 H Lymph # (Auto) 1.2 Roberts # (Auto) 1.2 H Eos # (Auto) 0.1 Baso # (Auto) 0.1 Immature Gran # (Auto) 0.15 H Absolute Nucleated RBC 0.06 H Immature Gran % 1 H Nucleated RBC % 1 H Puncture Site Right Radial ABG pH 7.23 L ABG pCO2 106 H* ABG pO2 95 ABG HCO3 44 H ABG O2 Saturation 96 ABG Base Excess 14 H VBG pH 7.44 VBG pCO2 59 H VBG pO2 83 H VBG O2 Sat (Georges) 98 H VBG Base Excess 14 H FiO2 21 Sodium 152 H Potassium 5.3 H D Chloride 105 Carbon Dioxide > 40.0 H Anion Gap 7 BUN 56 H Creatinine 1.2 Estim Creat Clear Calc 75.3 eGFR > 60 BUN/Creatinine Ratio 47 H Glucose 116 H Calculated Osmolality 318 H Lactic Acid 1.2 Calcium 8.4 Phosphorus 6.3 H Magnesium 2.4 ABG Interpretation ABG results: 05/27/24 05/29/24 05/29/24 23:37 10:44 22:08 ABG pH 7.51 H 7.50 H 7.48 H ABG pCO2 28 L 32 32 ABG pO2 75 L 79 L 145 H D ABG HCO3 23 25 24 ABG O2 Saturation 96 95 98 ABG Base Excess 0 2 1 VBG pH VBG pCO2 VBG pO2 VBG Base Excess 05/30/24 05/31/24 06/04/24 08:45 04:54 02:10 ABG pH 7.47 H 7.45 7.45 ABG pCO2 35 38 36 ABG pO2 86 D 82 L 139 H ABG HCO3 26 26 25 ABG O2 Saturation 97 96 98 ABG Base Excess 2 2 1 VBG pH VBG pCO2 VBG pO2 VBG Base Excess 06/04/24 06/05/24 06/05/24 18:16 11:36 12:59 ABG pH 7.44 7.11 L* D 7.20 L ABG pCO2 36 94 H* D 68 H D ABG pO2 80 L D 150 H D 121 H D ABG HCO3 24 30 H 26 ABG O2 Saturation 94 97 97 ABG Base Excess 0 -2 -3 VBG pH VBG pCO2 VBG pO2 VBG Base Excess 06/05/24 06/06/24 06/06/24 19:25 04:13 15:27 ABG pH 7.22 L 7.27 L 7.30 L ABG pCO2 64 H 57 H 60 H ABG pO2 122 H 153 H D 74 L D ABG HCO3 26 26 29 H ABG O2 Saturation 97 99 H 92 ABG Base Excess -3 -2 2 VBG pH VBG pCO2 VBG pO2 VBG Base Excess 06/07/24 06/07/24 06/08/24 03:55 09:59 04:20 ABG pH 7.41 D 7.43 7.45 ABG pCO2 56 H 55 H 50 H ABG pO2 293 H D 78 L D 75 L ABG HCO3 36 H 37 H 35 H ABG O2 Saturation 99 H 95 94 ABG Base Excess 10 H 11 H 10 H VBG pH VBG pCO2 VBG pO2 VBG Base Excess 06/08/24 06/08/24 06/08/24 11:05 11:50 13:18 ABG pH 7.17 L* D 7.10 L* 7.15 L* ABG pCO2 95 H* D 115 H* D 88 H* D ABG pO2 89 75 L 72 L ABG HCO3 34 H 36 H 31 H ABG O2 Saturation 92 84 L 85 L ABG Base Excess 3 4 H 0 VBG pH VBG pCO2 VBG pO2 VBG Base Excess 06/08/24 06/09/24 06/09/24 17:02 01:33 03:15 ABG pH 7.18 L* 7.22 L 7.27 L ABG pCO2 50 H D 91 H* D 82 H* ABG pO2 82 L 105 D 86 ABG HCO3 19 L 37 H 38 H ABG O2 Saturation 93 97 95 ABG Base Excess -9 L 7 H 9 H VBG pH VBG pCO2 VBG pO2 VBG Base Excess 06/09/24 06/09/24 06/10/24 05:08 12:52 04:40 ABG pH 7.31 L 7.33 L 7.30 L ABG pCO2 75 H* 57 H D 78 H* D ABG pO2 97 158 H D 65 L D ABG HCO3 38 H 30 H 38 H ABG O2 Saturation 97 99 H 90 L ABG Base Excess 10 H 3 9 H VBG pH VBG pCO2 VBG pO2 VBG Base Excess 06/10/24 06/11/24 06/12/24 09:40 04:19 04:15 ABG pH 7.27 L 7.35 7.48 H D ABG pCO2 88 H* D 86 H* 63 H D ABG pO2 65 L 70 L 76 L ABG HCO3 40 H 48 H 47 H ABG O2 Saturation 89 L 93 95 ABG Base Excess 10 H 19 H 21 H VBG pH VBG pCO2 VBG pO2 VBG Base Excess 06/13/24 06/14/24 06/15/24 07:22 04:32 03:45 ABG pH 7.46 H 7.48 H 7.46 H ABG pCO2 56 H 40 D 37 ABG pO2 80 L 64 L 71 L ABG HCO3 39 H 30 H 27 H ABG O2 Saturation 95 92 94 ABG Base Excess 13 H 6 H 3 VBG pH VBG pCO2 VBG pO2 VBG Base Excess 06/15/24 06/15/24 06/15/24 10:17 12:20 14:20 ABG pH 7.01 L* D 7.00 L* 7.03 L* ABG pCO2 122 H* D 130 H* 125 H* ABG pO2 91 D 88 82 L ABG HCO3 31 H 32 H 33 H ABG O2 Saturation 88 L 88 L 87 L ABG Base Excess -3 -2 -1 VBG pH VBG pCO2 VBG pO2 VBG Base Excess 06/15/24 06/15/24 06/16/24 15:55 20:39 00:35 ABG pH 7.03 L* 7.08 L* 7.10 L* ABG pCO2 121 H* 116 H* 118 H* ABG pO2 99 117 H 102 ABG HCO3 32 H 34 H 37 H ABG O2 Saturation 93 97 96 ABG Base Excess -1 2 4 H VBG pH VBG pCO2 VBG pO2 VBG Base Excess 06/16/24 06/16/24 06/17/24 04:45 08:55 05:06 ABG pH 7.17 L* 7.28 L D 7.33 L ABG pCO2 112 H* 88 H* D 96 H* ABG pO2 155 H D 98 D 126 H D ABG HCO3 41 H 41 H 50 H ABG O2 Saturation 99 H 98 99 H ABG Base Excess 9 H 12 H 21 H VBG pH VBG pCO2 VBG pO2 VBG Base Excess 06/17/24 06/17/24 06/18/24 10:58 13:55 04:16 ABG pH 7.29 L 7.29 L 7.33 L ABG pCO2 106 H* D 106 H* 86 H* D ABG pO2 58 L* D 61 L 77 L ABG HCO3 51 H 51 H 45 H ABG O2 Saturation 87 L 88 L 95 ABG Base Excess 21 H 21 H 17 H VBG pH VBG pCO2 VBG pO2 VBG Base Excess 06/19/24 06/20/24 06/21/24 04:18 04:49 04:06 ABG pH 7.42 7.36 7.44 ABG pCO2 63 H D 74 H* D 61 H D ABG pO2 66 L 55 L* 202 H D ABG HCO3 41 H 42 H 42 H ABG O2 Saturation 93 87 L 100 H ABG Base Excess 15 H 14 H 16 H VBG pH VBG pCO2 VBG pO2 VBG Base Excess 06/22/24 06/23/24 06/24/24 04:18 04:29 04:25 ABG pH 7.45 7.46 H 7.29 L D ABG pCO2 57 H 53 H 80 H* D ABG pO2 60 L D 99 D 88 ABG HCO3 40 H 38 H 38 H ABG O2 Saturation 91 99 H 96 ABG Base Excess 14 H 13 H 9 H VBG pH VBG pCO2 VBG pO2 VBG Base Excess 06/24/24 06/25/24 06/25/24 08:50 05:13 11:02 ABG pH 7.40 D 7.46 H Cancelled ABG pCO2 61 H D 53 H Cancelled ABG pO2 110 H D 66 L D Cancelled ABG HCO3 38 H 38 H Cancelled ABG O2 Saturation 99 H 94 Cancelled ABG Base Excess 12 H 13 H Cancelled VBG pH VBG pCO2 VBG pO2 VBG Base Excess 06/25/24 06/26/24 06/26/24 15:53 04:13 11:40 ABG pH 7.39 7.41 7.46 H ABG pCO2 53 H 48 43 ABG pO2 55 L* 58 L* 58 L* ABG HCO3 32 H 30 H 31 H ABG O2 Saturation 86 L 89 L 92 ABG Base Excess 6 H 5 H 6 H VBG pH VBG pCO2 VBG pO2 VBG Base Excess 06/27/24 06/28/24 06/28/24 04:17 04:24 06:22 ABG pH 7.48 H 7.27 L D 7.22 L ABG pCO2 39 72 H* D 83 H* D ABG pO2 49 L* 71 L D 82 L ABG HCO3 29 H 33 H 34 H ABG O2 Saturation 87 L 93 95 ABG Base Excess 5 H 5 H 4 H VBG pH VBG pCO2 VBG pO2 VBG Base Excess 06/28/24 06/29/24 06/30/24 10:18 04:21 07:57 ABG pH 7.32 L D 7.41 7.41 ABG pCO2 64 H D 63 H 62 H ABG pO2 76 L 81 L 59 L* D ABG HCO3 33 H 40 H 40 H ABG O2 Saturation 95 97 88 L ABG Base Excess 6 H 14 H 13 H VBG pH VBG pCO2 VBG pO2 VBG Base Excess 07/02/24 07/03/24 07/04/24 04:05 04:45 04:11 ABG pH 7.46 H 7.43 7.38 ABG pCO2 53 H 58 H 67 H ABG pO2 77 L 100 D 73 L D ABG HCO3 38 H 39 H 40 H ABG O2 Saturation 96 98 94 ABG Base Excess 12 H 13 H 13 H VBG pH VBG pCO2 VBG pO2 VBG Base Excess 07/05/24 07/06/24 07/09/24 04:40 04:08 04:53 ABG pH 7.30 L 7.42 D 7.26 L ABG pCO2 87 H* D 67 H D 94 H* ABG pO2 132 H D 64 L D 149 H ABG HCO3 43 H 43 H 42 H ABG O2 Saturation 99 H 92 100 H ABG Base Excess 14 H 17 H 12 H VBG pH VBG pCO2 VBG pO2 VBG Base Excess 07/11/24 07/12/24 07/14/24 11:34 04:49 04:45 ABG pH 7.25 L 7.36 D ABG pCO2 106 H* D 94 H* D ABG pO2 67 L D 59 L* ABG HCO3 46 H 53 H ABG O2 Saturation 91 90 L ABG Base Excess 16 H 24 H VBG pH 7.38 VBG pCO2 74 H VBG pO2 148 H VBG Base Excess 16 H 07/14/24 07/15/24 07/16/24 09:21 10:24 04:35 ABG pH 7.42 7.25 L D ABG pCO2 83 H* D 115 H* D ABG pO2 61 L 70 L ABG HCO3 54 H 50 H ABG O2 Saturation 92 93 ABG Base Excess 27 H 20 H VBG pH 7.39 VBG pCO2 79 H VBG pO2 40 VBG Base Excess 21 H 07/16/24 07/18/24 07/21/24 09:20 04:39 16:10 ABG pH 7.32 L 7.35 7.23 L ABG pCO2 95 H* D 92 H* 106 H* ABG pO2 59 L* 60 L 95 ABG HCO3 49 H 50 H 44 H ABG O2 Saturation 92 89 L 96 ABG Base Excess 20 H 22 H 14 H VBG pH VBG pCO2 VBG pO2 VBG Base Excess 07/22/24 09:31 ABG pH ABG pCO2 ABG pO2 ABG HCO3 ABG O2 Saturation ABG Base Excess VBG pH 7.44 VBG pCO2 59 H VBG pO2 83 H VBG Base Excess 14 H Quality Measures Quality Measures sepsis Current suspected stage: severe sepsis Possible source: pulmonary, GI tract/intra-abdominal, genitourinary and skin/soft tissue Blood cultures ordered: yes Antibiotic ordered: Yes Assessment & Plan Assessment Current Active Medications: Generic Name Dose Route Start Last Admin Trade Name Freq PRN Reason Stop Dose Admin Acetaminophen 650 mg 06/26/24 15:16 07/15/24 00:37 Acetaminophen Munira 325 Mg/10 Ml Udc GT 07/26/24 15:15 650 mg Q4HR PRN Administration Pain Or Fever > 100.3 Protocol Albuterol/Ipratropium 3 ml 07/21/24 19:00 07/22/24 10:59 Albuterol/Ipratropium (Duoneb) Rt Munira 3 Ml Nebu INH 08/20/24 18:59 3 ml Q4HRRT JUAN JOSE Administration Aspirin 81 mg 07/20/24 09:00 07/22/24 08:30 Aspirin 81 Mg Chew GT 08/19/24 08:59 81 mg QDAY JUAN JOSE Administration Atorvastatin Calcium 40 mg 07/21/24 21:00 07/21/24 20:47 Atorvastatin Calcium 20 Mg Tablet GT 08/20/24 20:59 40 mg HS JUAN JOSE Administration Calcium Carbonate 600 mg 06/28/24 13:00 07/21/24 13:16 Calcium Carbonate 600 Mg Tablet GT 07/28/24 12:59 600 mg QDAY@1300 JUAN JOSE Administration Emtricitabine/Tenofovir 1 tab 07/06/24 11:30 07/22/24 08:25 Emtricitabine 200 Mg/Tenofovir 300 Mg Tab (Non-Form) PO 08/19/24 14:33 1 tab QDAY JUAN JOSE Administration Enoxaparin Sodium 80 mg 07/15/24 21:00 07/22/24 08:30 Enoxaparin Sod Inj 80 Mg/0.8 Ml Syringe SC 10/11/24 08:00 80 mg BID JUAN JOSE Administration Ferrous Sulfate 300 mg 07/02/24 10:00 07/22/24 08:30 Ferrous Sulfate 300 Mg/5 Ml Udc GT 07/23/24 09:59 300 mg QDAY JUAN JOSE Administration Gabapentin 400 mg 07/13/24 21:00 07/22/24 08:35 Gabapentin 100 Mg Capsule GT 08/12/24 20:59 400 mg BID JUAN JOSE Administration Norepinephrine/Dextrose 8 mg in 250 mls @ 6.319 mls/hr 06/30/24 04:17 07/09/24 11:30 Levophed In D5w 8mg/250ml IV 07/30/24 04:16 0 mcg/kg/min .Q24H PRN 0 mls/hr PER PROTOCOL Titration Protocol 0.05 MCG/KG/MIN Ceftriaxone Sodium 2 gm/ 50 mls @ 100 mls/hr 07/22/24 11:00 07/22/24 11:04 Sodium Chloride IV 07/29/24 10:59 100 mls/hr QDAY JUAN JOSE Administration Lactated Ringer's 1,000 mls @ 75 mls/hr 07/22/24 10:58 07/22/24 11:10 Lactated Ringers IV 07/24/24 16:17 75 mls/hr .[id number] JUAN JOSE Administration Methadone HCl 10 mg 07/21/24 06:00 07/22/24 05:34 Methadone Hcl 10 Mg Tablet GT 07/26/24 05:59 10 mg TID JUAN JOSE Administration Methylprednisolone 4 mg 07/22/24 09:00 07/22/24 08:37 Methylprednisolone 4 Mg Tablet GT 08/21/24 08:59 4 mg QDAY JUAN JOSE Administration Modafinil 100 mg 07/18/24 09:00 07/22/24 08:35 Modafinil 100 Mg Tablet PO 08/17/24 08:59 100 mg QDAY JUAN JOSE Administration Raltegravir 400 mg 07/06/24 11:30 07/22/24 08:26 Raltegravir 400 Mg Tablet NG 08/19/24 14:33 400 mg BID JUAN JOSE Administration Trimethoprim/Sulfamethoxazole 20 ml 07/20/24 11:00 07/21/24 11:09 Trimethoprim 160 Mg/Sulfa 800 Mg Susp 20 Ml Udc GT 07/25/24 10:59 20 ml QDAY@1100 JUAN JOSE Administration Plan 39-year-old male patient with no PMHx who initially presented to [facility] on 05/27/2024 with a chief complaint of shortness of breath and cough, with associated chills, body aches, generalized weakness, fever, and night sweats beginning weeks prior but progressively worsening over a few days is currently being treated for acute hypoxic respiratory failure secondary to PCP pneumonia that was complicated by ventilator associated pneumonia. Patient is currently on tracheostomy tube and mechanically ventilated. NEURO Acute encephalopathy DDx; Multifactorial in setting of CVA/Medications/Metabolic/ and prolonged ICU stay. 06/05/2024 Patient was intubated, sedated, and paralyzed for ARDS. -Continue methadone dose to 10 Mg 3 times daily, and we will keep continuing gabapentin 400 Mg twice daily. Modafinil 100 Mg daily was started to wake him up. #Rt Parietal ischemic Stroke MRI on 07/08 Large area of restricted diffusion in the left frontal parietal white matter and small foci in the right parietal white matter most consistent with acute infarction -On aspirin 81mg daily and atorvastatin 80mg daily at night. -Consulted neurology, will follow-up possibility of switching aspirin with Plavix #Fever, resolved #Withdrawal syndrome, stable Multiple cultures has been negative in the past, urine culture positive for GNR no fevers noted -Treat underlying condition -Tylenol as needed CARDIO #Right subclavian and axillary vein DVT. -Doppler US right upper extremity 06/17/24: revealed RUE DVT -On Heparin Drip 06/17-07/09, On Enoxaparin 80mg BID 07/11- #Sinus tachycardia Tachycardia most likely secondary to acute respiratory distress syndrome contributed by withdrawal while tapering the dose of IV sedatives -Continue to treat underlying cause # Septic shock Patient presented with septic shock secondary to severe extensive bilateral pneumonia. After resolution of initial septic shock, patient developed new hypotension, tachycardia, tachypnea, fevers indicated of septic shock. 07/22-Patient developed hypotension overnight, was given LR bolus, continues to be hypotensive, NICOM shows patient will be fluid responsive, started on maintenance fluids, urine culture noted to be positive for GNR, patient will be started on ceftriaxone, will start on pressors if needed, will discontinue condom catheter. Also sacral ulcer noted on lower back, could be possible source of infection, will continue IV antibiotics -Started on ceftriaxone (07/22/24- -continue maintenance fluids LR 75 cc/h -Urine culture 07/21 positive for gram-negative rods, will follow for final results -Pressor support as needed -Linezolid (started 06/27-07/04) -Meropenem (started 06/27-07/04) -Urine (06/27) showed resistant staph epi -Blood (06/27) showed resistant Staphylococcus haemolyticus -repeat blood cultures and urine cultures negative -taper down sedatives as tolerated PULM #Chronic hypoxic respiratory failure 2/2 # Acute respiratory distress syndrome in the setting of post PCP pneumonia state Secondary to #Bilateral pneumocystis jirovecii pneumonia, resolved #Healthcare associated pneumonia, resolved, resolved #Ventilator associated pneumonia, resolved #S/P Tracheostomy #Pneumomediastinum, resolved -ABG done on 07/14/24 showed improvement. On vent support. -Titrate down FiO2 as tolerated. GI GI prophylaxis: Patient on G-tube feeding, GI prophylaxis not indicated #Elevated LFTs 2/2 HIV DDx: adverse affect of drugs, we had discontinued oxycodone previously, and phenobarbitol Liver enzymes started trending down after discontinuing oxycodone and phenobarbitol. liver US 05/30/2024 showed normal gallbladder and hepatomegaly without lesions or evidence of obstructions. Hep panel negative. LFTs downtrending Plan: -Continue monitoring #Hypertriglyceridemia, down trending secondary to propofol use, -Discontinued propofol NEPHRO #WILL, resolving Patient had WILL likely 2/2 congestion -Was given Diamox 500 IV twice daily (06/26-06/27) -Monitor UOP and renal panel #Central diabetes insipidus, resolved #Hypophosphatemia, repleted #Hyperkalemia. - potassium 5.3. Will monitor. #Mild hyponatremia Secondary to SIADH due to acute hypoxic respiratory failure leading to pulmonary distress -Continue to monitor. #Hyperphosphetemia, stable - calcium carbonate 600mg daily. #NAGMA #Primary Respiratory acidosis compensated by metabolic alkalosis Secondary to increased work of breathing and increased RR 2/2 chronic hypoxic respiratory failure and chronic respiratory distress syndrome in the setting of tapering down of IV sedatives -ABGs 07/21/24 shows pH 7.23, pCO2 106, bicarb 44 -We will treat the underlying cause respiratory acidosis HEME #Leukocytosis Likely reactive as we are tapering down sedatives and is still on steroid #Microcytic anemia 2/2 STEPHY and Inflammatory anemia Stable, has not required any transfusions this admission thus far. Clinically no evidence of bleeding. Iron panel shows iron 17, TIBC 262, iron saturation 6, unsaturated iron binding 245. Peripheral blood film confirms microcytic hypochromic anemia with target cells. Also daily lab draws contributing. Patient required x1 PRBC for Hg 6.9. Plan: -Started on oral ferrous sulfate 300 Mg daily -Feraheme 510mg was given x1 on 07/15/24 -Monitor H&H. Transfusing for Hgb <7 #Thrombocytosis, resolved Likely reactive in the setting of withdrawal syndrome -Continue to monitor ENDO #Hypoglycemia, resolved ID #Bilateral pneumocystis pneumonia, resolved #Healthcare associated pneumonia, resolved #Ventilator associated pneumonia, resolved #PCP pneumonia prophylaxis Negative studies: Cocci IgM and IgG, Hepatitis panel, Syphilis, Legionella, H.flu, N.meningitidis, Strep B, Strep pneumoniae, COVID, RSV, Flu A & B. TB quantiferon GOLD-indeterminate, however 06/05 AFB negative, CMV IgM, cryptococcal antigen negative. G6PD levels came back normal for consideration of dapsone alternative to Bactrim if needed. Patient completed 5 day course of azithromycin, 16 days of Zosyn. See Pulm for timeline of antimicrobial coverage. On 06/27 patient developed new septic shock Plan: -Antibiotics Bactrim for prevention of PCP pneumonia in the setting of CD4 count of 116 -Linezolid and meropenum restarted on 06/27/2024-07/04/24, discontinued -Urine ackerman port grew GPC, Staph epidermidis that is MDR, sensitive to linezolid, Completed therapy -Fungal cultures from BAL pending, follow-up on results -Blood cultures from 06/26/2024 and 06/27/2024, negative so far, cultures drawn on 06/29/2024 is pending -Follow up blood, sputum, and urine cultures were negative -Repeat blood, urine, sputum cultures were ordered on 07/07/2024- negative # Urinary tract infection, gram-negative rods 07/22-Patient developed hypotension overnight, was given LR bolus, continues to be hypotensive, NICOM shows patient will be fluid responsive, started on maintenance fluids, urine culture noted to be positive for GNR, patient will be started on ceftriaxone, will start on pressors if needed, will discontinue condom catheter. Also sacral ulcer noted on lower back, could be possible source of infection, will continue IV antibiotics -Started on ceftriaxone (07/22/24- -continue maintenance fluids LR 75 cc/h -Urine culture 07/21 positive for gram-negative rods, will follow for final results -Pressor support as needed #AIDS/HIV Continue HAART regimen. Continue Bactrim 20ml PO daily for prophylaxis #IRIS---Resolved Tappering off steroids slowely. MSK #Elevated creatine kinase---Resolved. 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 Patient has new complication with GNR UTI, started on therapy. Pending discharge to LTAC, will stabilize patient. DVT prophylaxis: On enoxaparin 80mg BID for treatment of right upper extremity DVT GI prophylaxis: On tube feeds, not indicated Diet: Tube feeds Ackerman:Condom cath discontinued 07/22 Lines: PIV Antibiotics: Bactrim, ceftriaxone CODE STATUS: DNR/DNI Case discussed with Attending Dr. Anderson and Dr. Warner PGY2. Yadira Welsh PGY1 Attending Provider Attestation/Addendum Patient seen and examined with above resident, Yadira Welsh MD. I agree with the findings, assessment, and plan of care as documented except for any differences below. Patient continues to be afebrile but worsening hypotension overnight. Patient remained volume responsive based on assessment by bioimpedance testing. 2 L given total overnight and additional 1 L bolus time today. Urinalysis was suggestive of infection and now cultures confirm presence of bacteriuria. Fortunately patient has not been cannulized though he does have a condom catheter in place. This was discontinued and diapers will be used for close monitoring of urine output. Continues to be excellent. Renal function and additional labs did not show significant other electrolyte abnormalities. Hypotension remained and thus low-dose Levophed was started peripherally, monitor PIV closely for extravasation. Patient continues to be slightly tachycardic but sinus rhythm. No fevers today though WBC count is slightly elevated. Plan to start on high-dose ceftriaxone given limited reserve. Patient was planned for LTAC transfer today but we will need to hold off on this until he has recovered from this acute infection. Case management updated to coordinate with receiving facility and transport team. Patient's gas exchange remains stable though he did have episode yesterday with chest x-ray showing improvement and blood gas showing rapid improvement after addition of respiratory rate increased on SIMV. His end-tidal CO2 remains in safe range along with clearance of pCO2 from over 100 on this morning's VBG back to safe range. Continue armodafinil, methadone, gabapentin with plan to slowly titrate down on sedating meds. Patient remains on appropriate heart therapy, ID will follow-up on new HIV load to determine response to therapy. Continue on Bactrim prophylaxis. Will plan to further down titrate Medrol today for IRIS prevention. Patient's family updated at bedside on identification of etiology and treatment plan. Also updated on plan for transfer when appropriate. Total critical care time: I personally spent 35 minutes for review of physiologic parameters, directing plan of care throughout the day, coordination of care with other subspecialties, and counseling patient's family at bedside. This is exclusive of time spent teaching housestaff or performing any separate billable procedures. Patient continues to require critical care services for acute hypoxic respiratory failure secondary to ARDS from PCP pneumonias with superimposed ventilator associated pneumonia, course now complicated by septic shock secondary to urinary tract infection. Patient remains at high risk for further morbidity and mortality warranting ongoing care and management only available in the intensive care setting.
[2024-07-22] MEDS: CALCIUM CARBONATE 600 MG TABLET GT (12:19)
[2024-07-22] MEDS: Norepinephrine/D5W 8mg/250ml 8 MG/250 ML BAG 6.319 MG IV (12:24)
--- NOTE | 2024-07-22 13:46 | PC.SS ---
SCHOOL PATROL informed by ICU resident that patient is not medically cleared for transport today. SCHOOL PATROL updated [place] staff, Darius Fields .
--- NOTE | 2024-07-22 15:15 | PC.SS ---
TAILINGS WORKER informed that patient might not be medically cleared for LTAC discharge until early next week.
[2024-07-22] MEDS: SODIUM CHLORIDE 0.9% 500 ML 500 ML 999 ML IV (17:06)
[2024-07-22] MEDS: ATORVASTATIN CALCIUM 20 MG TABLET 40 MG GT (20:48)
[2024-07-23] VITALS (112 sets, daily range): BP systolic 69–115; BP diastolic 37–68; PULSE 113–130; RESP 0–27; TEMP 37.1–37.4; O2SAT 89–100; BMI 24.0
[2024-07-23] MEDS: RINGERS LACTATED 1000 ML 1,000 ML 75 ML IV (00:46)
[2024-07-23] MEDS: ALBUTEROL/IPRATROPIUM (Duoneb) RT SOL 3 ML NEBU INH ×6 (02:36→22:06)
[2024-07-23] MEDS: METHADONE HCL 10 MG TABLET GT ×3 (05:48→21:02)
--- NOTE | 2024-07-23 05:59 | PC.NURSE ---
Per Dr. deyanira ricketts to use right arm for cuff pressures
[2024-07-23 06:06] LABS: Base Excess, Venous 15 (-3-3); O2 Saturation, Venous 100 % (96-97); PCO2, Venous 76 mmHg (36-56); PO2, Venous 127 mmHg (15-58); pH, Venous 7.36 (7.33-7.66)
[2024-07-23 06:09] LABS: Basophils # (Auto) 0.1 Thou/mm3 (0.0-0.2); Basophils % (Auto) 1 % (0-2.5); Eosinophils # (Auto) 0.1 Thou/mm3 (0.0-0.5); Eosinophils % (Auto) 1 % (0-10); Hematocrit 26.3 % (41.0-53.0); Immature Granulocytes % (Auto) 1 % (0-0); Immature Granulocytes Auto 0.21 Thou/mm3 (0.00-0.00); Lymphocytes # (Auto) 1.2 Thou/mm3 (1.0-4.8); Lymphocytes % (Auto) 7 % (10-50); Mean Corpuscular HGB Conc 27.4 g/dl (31.0-37.0); Mean Corpuscular Hemoglobin 26.9 pg (25.0-35.0); Mean Corpuscular Volume 98 fL (80-100); Monocytes # (Auto) 1.3 Thou/mm3 (0.0-0.8); Monocytes % (Auto) 8 % (0-12); Neutrophils # (Auto) 13.8 Thou/mm3 (1.8-7.7); Neutrophils % (Auto) 83 % (37-80); Nucleated Red Blood Cell # 0.06 Thou/mm3 (0.00-0.00); Nucleated Red Blood Cell % 0 /100 WBC (0); Platelet Count 240 Thou/mm3 (140-440); RDW Standard Deviation 86.8 fL (35.1-43.9); Red Blood Count 2.68 Miln/mm3 (4.50-5.90); White Blood Count 16.6 Thou/mm3 (3.8-10.6)
[2024-07-23 06:13] LABS: Hemoglobin 7.2 g/dL (13.5-16.0)
[2024-07-23 06:54] LABS: Alanine Aminotransferase 159 U/L (10-49); Alkaline Phosphatase 248 U/L (46-116); Anion Gap 9 (7-16); Aspartate Amino Transferase 180 U/L (0-34); BUN/Creatinine Ratio 45 Ratio (12-20); Bilirubin,Total < 0.2 mg/dL (0.3-1.2); Blood Urea Nitrogen 63 mg/dL (9-23); Calcium 8.1 mg/dL (8.3-10.6); Calcium (Corrected) 8.9 mg/dL (8.5-10.1); Carbon Dioxide 37.4 mMol/L (20.0-31.0); Chloride 107 mMol/L (98-107); Creatinine (Component) 1.4 mg/dL (0.6-1.3); Estimated Creatinine Clearance 64.6 mL/min (>60); Globulin 2.9 gm/dL (2.3-3.5); Glucose 122 mg/dL (74-106); Magnesium 2.3 mg/dL (1.6-2.6); Osmolality,Calculated 322 (275-295); Phosphorous 5.2 mg/dL (2.4-5.1); Potassium 5.8 mMol/L (3.4-5.1); Sodium 153 mMol/L (136-145); Total Protein 5.9 gm/dL (5.7-8.2); eGFR > 60 See Note
[2024-07-23] MEDS: ASPIRIN 81 MG CHEW GT (08:34)
[2024-07-23] MEDS: LINEZOLID 600 MG IVPB 600 MG/300 ML BAG 300 MG IV ×2 (08:34→20:18)
[2024-07-23] MEDS: ENOXAPARIN SOD INJ 80 MG/0.8 ML SYRINGE SC ×2 (08:35→20:59)
[2024-07-23] MEDS: Ferrous Sulfate 300 MG/5 ML UDC GT (08:35)
[2024-07-23] MEDS: modafiniL 100 MG TABLET PO (08:38)
[2024-07-23] MEDS: methylPREDNISolone 4 MG TABLET 8 MG GT (08:38)
[2024-07-23] MEDS: GABAPENTIN 100 MG CAPSULE 400 MG GT ×2 (08:39→20:58)
[2024-07-23] MEDS: LEVOFLOXACIN/D5W 750MG IVPB 750 MG/150 ML BAG 100 MG IV (08:39)
[2024-07-23 09:06] LABS: Lactate (Lactic Acid) 1.3 mMol/L (0.4-2.0)
[2024-07-23] MEDS: SOD POLYSTYRENE SULFON SUSP 15 GM/60 ML BTL PO (09:24)
[2024-07-23] MEDS: Norepinephrine/D5W 8mg/250ml 8 MG/250 ML BAG 18.956 MG IV (10:34)
--- NOTE | 2024-07-23 12:19 | PD.RESPRO ---
Documentation for date of: 07/23/24 Subjective Subjective Interval history: 07/13/24: The patient was evaluated and examined at the bedside this morning. Overnight, the patient was having severe tremors, and was started on Precedex drip, initially tremors resolved but later required midazolam 2 mg IV x 1 followed by midazolam 4 mg IV x 1 which resolved his tremors. He is still tachycardic in 110s. We will continue with the volume control setting at this point and start him on SIMV with TV 500cc, PS 15, PEEP 10 and RR 10 in the evening. We will continue with phenobarbital 60 Mg 3 times daily, decreased clonazepam to 0.5 Mg 3 times daily, continue with Precedex drip, and increased the dose of gabapentin to 400 Mg twice daily. We will do lab work every 72 hours. The plan is to try with SAT in a couple of days. 07/14/24: The patient was evaluated and examined at the bedside this morning. Patient did not had any overnight events. We have discontinued all IV sedatives, and we decreased the frequency of doses of phenobarbital 60 Mg twice daily, clonazepam 0.5 Mg twice daily, and will continue gabapentin 400 Mg twice daily along with methadone 20 Mg 3 times daily. Lung compliance seems to be improving. His white count was 15.1, ABG done revealed pCO2 83, bicarb 54 with phosphorus 2.3. Phosphorus and magnesium was repleted. Liver enzymes trending down. We ordered EEG to evaluate for any further anoxic brain injury. We will try to get SAT in a couple of days. 07/15/2024: The patient was evaluated and examined at the bedside this morning. No acute overnight events. We gave 1 dose of phenobarbital 30 Mg and stopped it. Clonazepam dose was decreased down to 0.25 Mg twice daily, we will continue with gabapentin 400 Mg twice daily and methadone was decreased to 15 Mg 3 times daily. Lung compliance seems to be improving, white count trending down, hemoglobin was 6.9 and 1 unit PRBC was ordered. VBG revealed pCO2 of 79, pO2 40 and pH 7.39. Mild elevation in liver enzymes, we will continue to monitor. EEG was significant for diffuse slowing of waveforms, but official reading pending. 07/16/2024: Patient seen and examined at bedside. No overnight events. Patient responsive to painful stimuli, opens eyes. Patient has decreasing urine output, Lasix 40 ordered. Kayexalate given for potassium 5.4. Patietn on pressure support overnight, morning ABG showed pH 7.25, pCO2 115, pO2 70. Changed to SIVM, repeat ABG showed pH 7.32, pCO2 95, pO2 59. 07/17/2024: The patient was seen and examined at the bedside. No overnight events. Patient has been still responsive to painful stimuli, tries to open his eyes when asked. Labs were significant for decreasing white count to 11.0, hemoglobin 7.4, sodium 147, potassium 3.0 was repleted with 40 mEq oral KCl, AST/ALT mildly elevated 151/123 with ALP 382. We decreased the methadone dose to 10 Mg 3 times daily, and we will keep continuing gabapentin 400 Mg twice daily. Modafinil 100 Mg daily was started to wake him up. 07/18/2024; Patient seen and examined by bedside, no overnight events reported. Continues to be stable and saturating well on same ventilator settings of SIMV, RR 15, TV 500, PS 10, and FiO2 of 70%. Labs noted for hypernatremia with Na 152, HCo3>40, ABG pH 7.35, paCO2 92 and SaO2 90%, Continue patient on same medication regimen with plan to decrease Methylprednisolone to 5 starting on 07/20/24, will also continue patient on Modafinil and start patient on anabolic steroid. Increased patient's free water flushes to 100cc q6hr from 50, gently increasing not to overload patient. Continue patient also on Acetazolamide twice daily for one day more. Continue to correct electrolytes as needed. prison plan to send patient to LTAC once more alert. 07/19/2024; patient was seen and examined by bedside this morning, no acute events overnight reported, appears more reactive this morning with opening eyes and moving them toward voice direction, remains hemodynamically stable on mechanical ventilation with saturation of 94% on 70% FiO2. No significant change in CBC this morning from 2 days ago, CMP noted for stable hyponatremia at 152, HCO3> 40, and mild elevation LFTs. Continue patient on current regimen of HAART, Bactrim, modafinil, gabapentin, therapeutic enoxaparin, atorvastatin and aspirin. Patient's methadone dose was decreased to twice daily, continuing methylprednisolone at 10 mg p.o. daily until 07/21, after which we will transition to methylprednisolone 5 mg daily after that. Discussed with director social welfare to find placement for LTAC, search continues for accepting facility, family updated regarding patient's condition and management plan. 07/20/2024; Patient was seen and examined by bedside, no overnight events reported, physical exam unchanged from prior day patient's only noted for opening eyes to verbal stimuli and blink reflex, continues to be on same ventilatory settings saturating well. Vitals were noted for sinus tachycardia with HR in 120s, patient was given 500cc of LR bolus and 2mg of ivp morphine for evaluation of sinus tachycardia, no effect of saline bolus on heart rate, and morphine effect was short-lived, no wbc increase on yesterday's labs nor fever overnight, ackerman and central line were discontinued a few days prior, will order Bcx, Ucx, CXR and sputum culture for further workup, will also continue to monitor wbc and vitals and start treatment as warranted. Patient continues to be on Bactrim, HAART and therapeutic Enoxaparin, will increase patient's Methadone back to TID and taper down slowly. 07/21/2024; Patient was seen and examined by bedside, no acute overnight events reported, physical exam remains unchanged patient's neuroexam limited to opening eyes to verbal stimuli and blink reflex, continues to be tachycardic with rate in lower 120s, no leukocytosis, negative Procal, blood cultures/urine cultures/sputum Gram stain-cultures were collected, will follow-up on results and meantime no change to antibiotic therapy as patient's labs including CBC/CMP unchanged from prior except for improving LFTs. Sputum cultures was negative for AFB/coccidiomycosis. Will continue patient on current management of HAART therapy, Bactrim, TID Methadone& Gabapentin along with Methylprednisolone. 07/22/2024: Patient seen and examined at bedside, overnight patient's MAP trending low, patient was given 2 L LR, this morning BP 74/39, MAP 51, patient fluid responsive per NICOM, was given another liter bolus, patient will be started on maintenance fluids 75 cc/h, will consider starting low-dose pressors if blood pressure continues to remain low, patient's urine culture positive for gram-negative rods, patient started on ceftriaxone, will follow urine culture results, elevated WBC count noted as well. Will follow-up with neurology for the possibility of switching aspirin to Plavix for the underlying right parietal ischemic stroke otherwise will continue with methadone 10 three times daily, gabapentin 400 twice daily and modafinil in a.m. Continue Lovenox 80 mg subcutaneous twice daily for DVT treatment. Will continue HAART therapy and Bactrim for HIV/AIDS. Plan to continue methylprednisolone for 1 week and plan to taper after. Will continue to manage patient's urinary tract infection. 07/23/2024: Patient was seen and examined today at the bedside in ICU. Overnight he was having heart rate in 130s. Morning labs showed worsening kidney function, creatinine 1.4, BUN 63. 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 His ceftriaxone was discontinued today. Methylprednisolone was increased to 8 mg daily. Labs showed sodium 153, potassium 5.8. He was given Kayexalate 15 mg x 1. He remains on norepinephrine and it was increased overnight, currently on 0.13 mcg/kg/h. Will continue current management and monitor patient. Awaiting for the final urine culture results. Exam Vital Signs Temp Pulse Resp BP Pulse Ox O2 Del Method O2 Flow Rate 99.4 F 122 H 22 H 102/60 93 L Mechanical Ventilation 70 07/23/24 07:08 07/23/24 11:30 07/23/24 10:35 07/23/24 11:30 07/23/24 11:30 07/23/24 04:00 07/15/24 17:34 FiO2 65 07/23/24 10:35 Narrative Exam Gen: Well-developed male, mechanically ventillated via tracheostomy. HEENT: NCAT, PERRLA, opens eyes spontaneously, MMM, anicteric conjunctivae. Tracheostomy tube appears clean and appropriately positioned. CVS: normal S1 and S2. Regular tachycardia. No M/R/G. Resp: rhonchi B/L. No rales, crackles or wheezing. Abd: soft, non-tender, non-distended. BS+ in all 4 quadrants. MSK: Good ROM in BUE & BLE. BUE and BLE non-pitting edema, ruptured vesicles 1-2 cm on the Rt forearm surface that have been healing. Decubitus sacral ulcer noted. Muscle wasting is noted. Neuro: Limited exam. Objective Labs 07/24/24 07:30 07/24/24 07:30 Labs: Laboratory Results - last 24 hr 07/23/24 07/23/24 05:51 07:00 WBC 16.6 H D RBC 2.68 L Hgb 7.2 L Hct 26.3 L MCV 98 MCH 26.9 MCHC 27.4 L RDW Std Deviation 86.8 H Plt Count 240 Neut % (Auto) 83 H Lymph % (Auto) 7 L [place] % (Auto) 8 Eos % (Auto) 1 Baso % (Auto) 1 Neut # (Auto) 13.8 H Lymph # (Auto) 1.2 [place] # (Auto) 1.3 H Eos # (Auto) 0.1 Baso # (Auto) 0.1 Immature Gran # (Auto) 0.21 H Absolute Nucleated RBC 0.06 H Immature Gran % 1 H Nucleated RBC % 0 VBG pH 7.36 VBG pCO2 76 H D VBG pO2 127 H D VBG O2 Sat ([place]) 100 H VBG Base Excess 15 H Sodium 153 H Potassium 5.8 H D Chloride 107 Carbon Dioxide 37.4 H Anion Gap 9 BUN 63 H Creatinine 1.4 H Estim Creat Clear Calc 64.6 eGFR > 60 BUN/Creatinine Ratio 45 H Glucose 122 H Calculated Osmolality 322 H Lactic Acid 1.3 Calcium 8.1 L Corrected Calcium 8.9 Phosphorus 5.2 H Magnesium 2.3 Total Bilirubin < 0.2 L AST 180 H ALT 159 H Alkaline Phosphatase 248 H D Total Protein 5.9 Albumin 3.0 L Globulin 2.9 Albumin/Globulin Ratio 1.0 L ABG Interpretation ABG results: 05/27/24 05/29/24 05/29/24 23:37 10:44 22:08 ABG pH 7.51 H 7.50 H 7.48 H ABG pCO2 28 L 32 32 ABG pO2 75 L 79 L 145 H D ABG HCO3 23 25 24 ABG O2 Saturation 96 95 98 ABG Base Excess 0 2 1 VBG pH VBG pCO2 VBG pO2 VBG Base Excess 05/30/24 05/31/24 06/04/24 08:45 04:54 02:10 ABG pH 7.47 H 7.45 7.45 ABG pCO2 35 38 36 ABG pO2 86 D 82 L 139 H ABG HCO3 26 26 25 ABG O2 Saturation 97 96 98 ABG Base Excess 2 2 1 VBG pH VBG pCO2 VBG pO2 VBG Base Excess 06/04/24 06/05/24 06/05/24 18:16 11:36 12:59 ABG pH 7.44 7.11 L* D 7.20 L ABG pCO2 36 94 H* D 68 H D ABG pO2 80 L D 150 H D 121 H D ABG HCO3 24 30 H 26 ABG O2 Saturation 94 97 97 ABG Base Excess 0 -2 -3 VBG pH VBG pCO2 VBG pO2 VBG Base Excess 06/05/24 06/06/24 06/06/24 19:25 04:13 15:27 ABG pH 7.22 L 7.27 L 7.30 L ABG pCO2 64 H 57 H 60 H ABG pO2 122 H 153 H D 74 L D ABG HCO3 26 26 29 H ABG O2 Saturation 97 99 H 92 ABG Base Excess -3 -2 2 VBG pH VBG pCO2 VBG pO2 VBG Base Excess 06/07/24 06/07/24 06/08/24 03:55 09:59 04:20 ABG pH 7.41 D 7.43 7.45 ABG pCO2 56 H 55 H 50 H ABG pO2 293 H D 78 L D 75 L ABG HCO3 36 H 37 H 35 H ABG O2 Saturation 99 H 95 94 ABG Base Excess 10 H 11 H 10 H VBG pH VBG pCO2 VBG pO2 VBG Base Excess 06/08/24 06/08/24 06/08/24 11:05 11:50 13:18 ABG pH 7.17 L* D 7.10 L* 7.15 L* ABG pCO2 95 H* D 115 H* D 88 H* D ABG pO2 89 75 L 72 L ABG HCO3 34 H 36 H 31 H ABG O2 Saturation 92 84 L 85 L ABG Base Excess 3 4 H 0 VBG pH VBG pCO2 VBG pO2 VBG Base Excess 06/08/24 06/09/24 06/09/24 17:02 01:33 03:15 ABG pH 7.18 L* 7.22 L 7.27 L ABG pCO2 50 H D 91 H* D 82 H* ABG pO2 82 L 105 D 86 ABG HCO3 19 L 37 H 38 H ABG O2 Saturation 93 97 95 ABG Base Excess -9 L 7 H 9 H VBG pH VBG pCO2 VBG pO2 VBG Base Excess 06/09/24 06/09/24 06/10/24 05:08 12:52 04:40 ABG pH 7.31 L 7.33 L 7.30 L ABG pCO2 75 H* 57 H D 78 H* D ABG pO2 97 158 H D 65 L D ABG HCO3 38 H 30 H 38 H ABG O2 Saturation 97 99 H 90 L ABG Base Excess 10 H 3 9 H VBG pH VBG pCO2 VBG pO2 VBG Base Excess 06/10/24 06/11/24 06/12/24 09:40 04:19 04:15 ABG pH 7.27 L 7.35 7.48 H D ABG pCO2 88 H* D 86 H* 63 H D ABG pO2 65 L 70 L 76 L ABG HCO3 40 H 48 H 47 H ABG O2 Saturation 89 L 93 95 ABG Base Excess 10 H 19 H 21 H VBG pH VBG pCO2 VBG pO2 VBG Base Excess 06/13/24 06/14/24 06/15/24 07:22 04:32 03:45 ABG pH 7.46 H 7.48 H 7.46 H ABG pCO2 56 H 40 D 37 ABG pO2 80 L 64 L 71 L ABG HCO3 39 H 30 H 27 H ABG O2 Saturation 95 92 94 ABG Base Excess 13 H 6 H 3 VBG pH VBG pCO2 VBG pO2 VBG Base Excess 06/15/24 06/15/24 06/15/24 10:17 12:20 14:20 ABG pH 7.01 L* D 7.00 L* 7.03 L* ABG pCO2 122 H* D 130 H* 125 H* ABG pO2 91 D 88 82 L ABG HCO3 31 H 32 H 33 H ABG O2 Saturation 88 L 88 L 87 L ABG Base Excess -3 -2 -1 VBG pH VBG pCO2 VBG pO2 VBG Base Excess 06/15/24 06/15/24 06/16/24 15:55 20:39 00:35 ABG pH 7.03 L* 7.08 L* 7.10 L* ABG pCO2 121 H* 116 H* 118 H* ABG pO2 99 117 H 102 ABG HCO3 32 H 34 H 37 H ABG O2 Saturation 93 97 96 ABG Base Excess -1 2 4 H VBG pH VBG pCO2 VBG pO2 VBG Base Excess 06/16/24 06/16/24 06/17/24 04:45 08:55 05:06 ABG pH 7.17 L* 7.28 L D 7.33 L ABG pCO2 112 H* 88 H* D 96 H* ABG pO2 155 H D 98 D 126 H D ABG HCO3 41 H 41 H 50 H ABG O2 Saturation 99 H 98 99 H ABG Base Excess 9 H 12 H 21 H VBG pH VBG pCO2 VBG pO2 VBG Base Excess 06/17/24 06/17/24 06/18/24 10:58 13:55 04:16 ABG pH 7.29 L 7.29 L 7.33 L ABG pCO2 106 H* D 106 H* 86 H* D ABG pO2 58 L* D 61 L 77 L ABG HCO3 51 H 51 H 45 H ABG O2 Saturation 87 L 88 L 95 ABG Base Excess 21 H 21 H 17 H VBG pH VBG pCO2 VBG pO2 VBG Base Excess 06/19/24 06/20/24 06/21/24 04:18 04:49 04:06 ABG pH 7.42 7.36 7.44 ABG pCO2 63 H D 74 H* D 61 H D ABG pO2 66 L 55 L* 202 H D ABG HCO3 41 H 42 H 42 H ABG O2 Saturation 93 87 L 100 H ABG Base Excess 15 H 14 H 16 H VBG pH VBG pCO2 VBG pO2 VBG Base Excess 06/22/24 06/23/24 06/24/24 04:18 04:29 04:25 ABG pH 7.45 7.46 H 7.29 L D ABG pCO2 57 H 53 H 80 H* D ABG pO2 60 L D 99 D 88 ABG HCO3 40 H 38 H 38 H ABG O2 Saturation 91 99 H 96 ABG Base Excess 14 H 13 H 9 H VBG pH VBG pCO2 VBG pO2 VBG Base Excess 06/24/24 06/25/24 06/25/24 08:50 05:13 11:02 ABG pH 7.40 D 7.46 H Cancelled ABG pCO2 61 H D 53 H Cancelled ABG pO2 110 H D 66 L D Cancelled ABG HCO3 38 H 38 H Cancelled ABG O2 Saturation 99 H 94 Cancelled ABG Base Excess 12 H 13 H Cancelled VBG pH VBG pCO2 VBG pO2 VBG Base Excess 06/25/24 06/26/24 06/26/24 15:53 04:13 11:40 ABG pH 7.39 7.41 7.46 H ABG pCO2 53 H 48 43 ABG pO2 55 L* 58 L* 58 L* ABG HCO3 32 H 30 H 31 H ABG O2 Saturation 86 L 89 L 92 ABG Base Excess 6 H 5 H 6 H VBG pH VBG pCO2 VBG pO2 VBG Base Excess 06/27/24 06/28/24 06/28/24 04:17 04:24 06:22 ABG pH 7.48 H 7.27 L D 7.22 L ABG pCO2 39 72 H* D 83 H* D ABG pO2 49 L* 71 L D 82 L ABG HCO3 29 H 33 H 34 H ABG O2 Saturation 87 L 93 95 ABG Base Excess 5 H 5 H 4 H VBG pH VBG pCO2 VBG pO2 VBG Base Excess 06/28/24 06/29/24 06/30/24 10:18 04:21 07:57 ABG pH 7.32 L D 7.41 7.41 ABG pCO2 64 H D 63 H 62 H ABG pO2 76 L 81 L 59 L* D ABG HCO3 33 H 40 H 40 H ABG O2 Saturation 95 97 88 L ABG Base Excess 6 H 14 H 13 H VBG pH VBG pCO2 VBG pO2 VBG Base Excess 07/02/24 07/03/24 07/04/24 04:05 04:45 04:11 ABG pH 7.46 H 7.43 7.38 ABG pCO2 53 H 58 H 67 H ABG pO2 77 L 100 D 73 L D ABG HCO3 38 H 39 H 40 H ABG O2 Saturation 96 98 94 ABG Base Excess 12 H 13 H 13 H VBG pH VBG pCO2 VBG pO2 VBG Base Excess 07/05/24 07/06/24 07/09/24 04:40 04:08 04:53 ABG pH 7.30 L 7.42 D 7.26 L ABG pCO2 87 H* D 67 H D 94 H* ABG pO2 132 H D 64 L D 149 H ABG HCO3 43 H 43 H 42 H ABG O2 Saturation 99 H 92 100 H ABG Base Excess 14 H 17 H 12 H VBG pH VBG pCO2 VBG pO2 VBG Base Excess 07/11/24 07/12/24 07/14/24 11:34 04:49 04:45 ABG pH 7.25 L 7.36 D ABG pCO2 106 H* D 94 H* D ABG pO2 67 L D 59 L* ABG HCO3 46 H 53 H ABG O2 Saturation 91 90 L ABG Base Excess 16 H 24 H VBG pH 7.38 VBG pCO2 74 H VBG pO2 148 H VBG Base Excess 16 H 07/14/24 07/15/24 07/16/24 09:21 10:24 04:35 ABG pH 7.42 7.25 L D ABG pCO2 83 H* D 115 H* D ABG pO2 61 L 70 L ABG HCO3 54 H 50 H ABG O2 Saturation 92 93 ABG Base Excess 27 H 20 H VBG pH 7.39 VBG pCO2 79 H VBG pO2 40 VBG Base Excess 21 H 07/16/24 07/18/24 07/21/24 09:20 04:39 16:10 ABG pH 7.32 L 7.35 7.23 L ABG pCO2 95 H* D 92 H* 106 H* ABG pO2 59 L* 60 L 95 ABG HCO3 49 H 50 H 44 H ABG O2 Saturation 92 89 L 96 ABG Base Excess 20 H 22 H 14 H VBG pH VBG pCO2 VBG pO2 VBG Base Excess 07/22/24 07/23/24 09:31 05:51 ABG pH ABG pCO2 ABG pO2 ABG HCO3 ABG O2 Saturation ABG Base Excess VBG pH 7.44 7.36 VBG pCO2 59 H 76 H D VBG pO2 83 H 127 H D VBG Base Excess 14 H 15 H Quality Measures Quality Measures sepsis Current suspected stage: sepsis Possible source: pulmonary, GI tract/intra-abdominal, genitourinary and skin/soft tissue Blood cultures ordered: yes Antibiotic ordered: Yes Assessment & Plan Assessment Current Active Medications: Generic Name Dose Route Start Last Admin Trade Name Freq PRN Reason Stop Dose Admin Acetaminophen 650 mg 06/26/24 15:16 07/15/24 00:37 Acetaminophen Munira 325 Mg/10 Ml Udc GT 07/26/24 15:15 650 mg Q4HR PRN Administration Pain Or Fever > 100.3 Protocol Albuterol/Ipratropium 3 ml 07/21/24 19:00 07/23/24 10:34 Albuterol/Ipratropium (Duoneb) Rt Munira 3 Ml Nebu INH 08/20/24 18:59 3 ml Q4HRRT JUAN JOSE Administration Aspirin 81 mg 07/20/24 09:00 07/23/24 08:34 Aspirin 81 Mg Chew GT 08/19/24 08:59 81 mg QDAY JUAN JOSE Administration Atorvastatin Calcium 40 mg 07/21/24 21:00 07/22/24 20:48 Atorvastatin Calcium 20 Mg Tablet GT 08/20/24 20:59 40 mg HS JUAN JOSE Administration Calcium Carbonate 600 mg 06/28/24 13:00 07/22/24 12:19 Calcium Carbonate 600 Mg Tablet GT 07/28/24 12:59 600 mg QDAY@1300 JUAN JOSE Administration Enoxaparin Sodium 80 mg 07/15/24 21:00 07/23/24 08:35 Enoxaparin Sod Inj 80 Mg/0.8 Ml Syringe SC 10/11/24 08:00 80 mg BID JUAN JOSE Administration Gabapentin 400 mg 07/13/24 21:00 07/23/24 08:39 Gabapentin 100 Mg Capsule GT 08/12/24 20:59 400 mg BID JUAN JOSE Administration Norepinephrine/Dextrose 8 mg in 250 mls @ 6.319 mls/hr 06/30/24 04:17 07/23/24 10:34 Levophed In D5w 8mg/250ml IV 07/30/24 04:16 0.15 mcg/kg/min .Q24H PRN 18.956 mls/hr PER PROTOCOL Administration Protocol 0.05 MCG/KG/MIN Linezolid 600 mg in 300 mls @ 300 mls/hr 07/23/24 08:06 07/23/24 09:36 Zyvox Ivpb IV 07/30/24 08:05 Not Given Q12HR JUAN JOSE Protocol Levofloxacin/Dextrose 750 mg in 150 mls @ 100 mls/hr 07/23/24 09:00 07/23/24 08:39 Levaquin Ivpb IV 07/30/24 08:59 100 mls/hr QDAY JUAN JOSE Administration Methadone HCl 10 mg 07/21/24 06:00 07/23/24 05:48 Methadone Hcl 10 Mg Tablet GT 07/26/24 05:59 10 mg TID JUAN JOSE Administration Methylprednisolone 8 mg 07/23/24 09:00 07/23/24 08:38 Methylprednisolone 4 Mg Tablet GT 08/22/24 08:59 8 mg QDAY JUAN JOSE Administration Modafinil 100 mg 07/18/24 09:00 07/23/24 08:38 Modafinil 100 Mg Tablet PO 08/17/24 08:59 100 mg QDAY JUAN JOSE Administration Trimethoprim/Sulfamethoxazole 20 ml 07/20/24 11:00 07/22/24 11:50 Trimethoprim 160 Mg/Sulfa 800 Mg Susp 20 Ml Udc GT 07/25/24 10:59 20 ml QDAY@1100 JUAN JOSE Administration Plan 39-year-old male patient with no PMHx who initially presented to [facility] (Former[facility]) on 05/27/2024 with a chief complaint of shortness of breath and cough, with associated chills, body aches, generalized weakness, fever, and night sweats beginning weeks prior but progressively worsening over a few days is currently being treated for acute hypoxic respiratory failure secondary to PCP pneumonia that was complicated by ventilator associated pneumonia. Patient is currently on tracheostomy tube and mechanically ventilated. NEURO Acute encephalopathy. DDx; Multifactorial in setting of CVA/Medications/Metabolic/ and prolonged ICU stay. 06/05/2024 Patient was intubated, sedated, and paralyzed for ARDS. -Continue methadone dose to 10 Mg 3 times daily, and we will keep continuing gabapentin 400 Mg twice daily. Modafinil 100 Mg daily was started to wake him up. #Rt Parietal ischemic Stroke. MRI on 07/08 Large area of restricted diffusion in the left frontal parietal white matter and small foci in the right parietal white matter most consistent with acute infarction. -On aspirin 81mg daily and atorvastatin 80mg daily at night. -Consulted neurology, will follow-up possibility of switching aspirin with Plavix. #Fever, resolved. #Withdrawal syndrome, stable. Multiple cultures has been negative in the past, urine culture positive for GNR no fevers noted. -Treat underlying condition -Tylenol as needed CARDIO #Right subclavian and axillary vein DVT. -Doppler US right upper extremity 06/17/24: revealed RUE DVT -On Heparin Drip 06/17-07/09, On Enoxaparin 80mg BID 07/11- #Sinus tachycardia. Tachycardia most likely secondary to acute respiratory distress syndrome contributed by withdrawal while tapering the dose of IV sedatives. -Continue to treat underlying cause. #Septic shock. Patient presented with septic shock secondary to severe extensive bilateral pneumonia. After resolution of initial septic shock, patient developed new hypotension, tachycardia, tachypnea, fevers indicated of septic shock. Sacral ulcer noted on lower back, could be possible source of infection, will continue IV antibiotics. Plan: -started on linezolid and levofloxacin. -continue maintenance fluids LR 75 cc/h. -Urine culture 07/21 positive for gram-negative rods, will follow for final results. -Pressor support as needed. -ceftriaxone (07/22/24-07/23/2024) -Linezolid (started 06/27-07/04). -Meropenem (started 06/27-07/04). -Urine (06/27) showed resistant staph epi. -Blood (06/27) showed resistant Staphylococcus haemolyticus. -repeat blood cultures and urine cultures negative. PULM #Chronic hypoxic respiratory failure 2/2. # Acute respiratory distress syndrome in the setting of post PCP pneumonia state. Secondary to #Bilateral pneumocystis jirovecii pneumonia, resolved. #Healthcare associated pneumonia, resolved, resolved. #Ventilator associated pneumonia, resolved. #S/P Tracheostomy. #Pneumomediastinum, resolved. -ABG done on 07/14/24 showed improvement. On vent support. -Titrate down FiO2 as tolerated. GI GI prophylaxis: Patient on G-tube feeding, GI prophylaxis not indicated. #Elevated LFTs 2/2 HIV. DDx: adverse affect of drugs, we had discontinued oxycodone previously, and phenobarbitol. Liver enzymes started trending down after discontinuing oxycodone and phenobarbitol. liver US 05/30/2024 showed normal gallbladder and hepatomegaly without lesions or evidence of obstructions. Hep panel negative. LFTs downtrending. Plan: -Continue monitoring. #Hypertriglyceridemia, down trending. secondary to propofol use. -Discontinued propofol. NEPHRO #WILL, resolving. Patient had WILL likely 2/2 congestion. -Was given Diamox 500 IV twice daily (06/26-06/27). -Monitor UOP and renal panel. #Central diabetes insipidus, resolved. #Hypophosphatemia, repleted. #Hyperkalemia. - potassium 5.3. Will monitor. #Mild hyponatremia Secondary to SIADH due to acute hypoxic respiratory failure leading to pulmonary distress. -Continue to monitor. #Hyperphosphetemia, stable - calcium carbonate 600mg daily. #NAGMA. #Primary Respiratory acidosis compensated by metabolic alkalosis. Secondary to increased work of breathing and increased RR 2/2 chronic hypoxic respiratory failure and chronic respiratory distress syndrome in the setting of tapering down of IV sedatives. -ABGs 07/21/24 shows pH 7.23, pCO2 106, bicarb 44. -We will treat the underlying cause respiratory acidosis. HEME #Leukocytosis. Likely reactive as we are tapering down sedatives and is still on steroid. 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 Clinically no evidence of bleeding. Iron panel shows iron 17, TIBC 262, iron saturation 6, unsaturated iron binding 245. Peripheral blood film confirms microcytic hypochromic anemia with target cells. Also daily lab draws contributing. Patient required x1 PRBC for Hg 6.9. Plan: -Started on oral ferrous sulfate 300 Mg daily. -Feraheme 510mg was given x1 on 07/15/24. -Monitor H&H. Transfusing for Hgb <7. #Thrombocytosis, resolved Likely reactive in the setting of withdrawal syndrome. -Continue to monitor. ENDO #Hypoglycemia, .resolved ID #Bilateral pneumocystis pneumonia, resolved. #Healthcare associated pneumonia, resolved. #Ventilator associated pneumonia, resolved. #PCP pneumonia prophylaxis. Negative studies: Cocci IgM and IgG, Hepatitis panel, Syphilis, Legionella, H.flu, N.meningitidis, Strep B, Strep pneumoniae, COVID, RSV, Flu A & B. TB quantiferon GOLD-indeterminate, however 06/05 AFB negative, CMV IgM, cryptococcal antigen negative. G6PD levels came back normal for consideration of dapsone alternative to Bactrim if needed. Patient completed 5 day course of azithromycin, 16 days of Zosyn. See Pulm for timeline of antimicrobial coverage. On 06/27 patient developed new septic shock. Plan: -Antibiotics Bactrim for prevention of PCP pneumonia in the setting of CD4 count of 116 -Linezolid and meropenum restarted on 06/27/2024-07/04/24, discontinued. -Urine ackerman port grew GPC, Staph epidermidis that is MDR, sensitive to linezolid, Completed therapy. -Fungal cultures from BAL pending, follow-up on results. -Blood cultures from 06/26/2024 and 06/27/2024, negative so far, cultures drawn on 06/29/2024 is pending. -Follow up blood, sputum, and urine cultures were negative. -Repeat blood, urine, sputum cultures were ordered on 07/07/2024- negative. # Urinary tract infection, gram-negative rods. 07/22-Patient developed hypotension overnight, was given LR bolus, continues to be hypotensive, NICOM shows patient will be fluid responsive, started on maintenance fluids, urine culture noted to be positive for GNR, patient will be started on ceftriaxone, will start on pressors if needed, will discontinue condom catheter. Also sacral ulcer noted on lower back, could be possible source of infection, will continue IV antibiotics -started on linezolid and levofloxacin. -ceftriaxone (07/22/24-07/23/2024) -continue maintenance fluids LR 75 cc/h -Urine culture 07/21 positive for gram-negative rods, will follow for final results -Pressor support as needed #AIDS/HIV. Continue HAART regimen. Continue Bactrim 20ml PO daily for prophylaxis. #IRIS---Resolved. Tappering off steroids slowely. MSK #Elevated creatine kinase---Resolved. SKIN #Lower lip abrasion. #Right forearm blisters. -Improving. -Monitor closely. 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 Patient has new complication with GNR UTI, started on therapy. Pending discharge to LTAC, will stabilize patient. DVT prophylaxis: On enoxaparin 80mg BID for treatment of right upper extremity DVT GI prophylaxis: On tube feeds, not indicated. Diet: Tube feeds . Ackerman:Condom cath discontinued 07/22. Lines: PIV. Antibiotics: Bactrim, ceftriaxone. CODE STATUS: DNR/DNI. Case discussed with Attending Dr. Anderson. Cayetano Warner MD, PGY 2. Disclaimer: This note was dictated by speech recognition. Minor errors in geospatial specialist may be present due to voice recognition software. Attending Provider Attestation/Addendum Patient seen and examined with above resident, Cayetano Warner MD. I agree with the findings, assessment, and plan of care as documented except for any differences below. Patient continues to have increasing pressor requirements. Suspect the ceftriaxone is inadequate at this point, will transition back to linezolid given his history of VRE and now accidental skin tear of his lower back and potential contamination. Additional will change to Levaquin to ensure adequate Pseudomonas coverage as he has been in the healthcare setting for prolonged stay. No evidence of pulmonary infection with no increased secretions. He remains afebrile though Tmax in the 99 range. Patient's WBC count remains elevated. Mentation seems to be slightly improved today and he appears less toxic. Continue to wean off Levophed as tolerated. No additional fluids at this point. Adequate urine output with discontinuation of condom catheter and transition to use of diapers which nursing staff are measuring to try to estimate adequate output. Patient remains on tube feeds and tolerating well. Once acute infection has been controlled, patient will be ready for transfer to long-term acute care for ongoing management. Patient's mother was at bedside and updated on plan of care and remains hopeful. She reports that he is responding to her more than he did yesterday when he was development of acute illness. Total critical care time: I personally spent 40 minutes for review of physiologic parameters, directing plan of care throughout the day, coordination of care with other specialties, and counseling patient's family at bedside. This is exclusive of time spent teaching housestaff or performing any separate billable procedures. Patient remains at high risk for further morbidity and mortality warranting ongoing monitoring and care only available in the intensive care unit. Continues to require critical care services for acute hypoxic respiratory failure secondary to ARDS from PCP pneumonia and superimposed recurrent ventilator associated pneumonia in the setting of newly diagnosed HIV/AIDS.
[2024-07-23] MEDS: CALCIUM CARBONATE 600 MG TABLET GT (12:51)
[2024-07-23] MEDS: RALTEGRAVIR 400 MG TABLET NG ×2 (12:52→20:18)
[2024-07-23] MEDS: TRIMETHOPRIM 160 MG/SULFA 800 MG SUSP 20 ML UDC GT (12:52)
[2024-07-23] MEDS: EMTRICITABINE 200 MG/TENOFOVIR 300 MG TAB (NON-FORM) 1 TAB PO (12:52)
[2024-07-23] MEDS: ATORVASTATIN CALCIUM 20 MG TABLET 40 MG GT (20:18)
[2024-07-24] VITALS (56 sets, daily range): BP systolic 75–122; BP diastolic 44–73; PULSE 98–119; RESP 11–24; TEMP 36.5–37.1; O2SAT 88–100; BMI 24.0
[2024-07-24] MEDS: ALBUTEROL/IPRATROPIUM (Duoneb) RT SOL 3 ML NEBU INH ×6 (03:05→22:49)
[2024-07-24 04:34] LABS: Base Excess 15 (-3-3); HCO3 44 mEq/L (20-26); Inspired Oxygen, FIO2 65 %; O2 Saturation 59 % (91-98); PCO2 98 mmHg (32.0-48.0); pH, Arterial 7.27 (7.35-7.45)
[2024-07-24 04:39] LABS: Allen Test Performed/OK; Puncture Site Left Radial
[2024-07-24 04:40] LABS: PO2 35 mmHg (83-108)
[2024-07-24] MEDS: METHADONE HCL 10 MG TABLET GT ×3 (05:36→21:35)
--- NOTE | 2024-07-24 07:44 | PC.CC ---
Late Entry 07/23/24 Rounding note: Pt remains in ICU/vented.
[2024-07-24 07:59] LABS: Basophils % (Auto) 0 % (0-2.5); Eosinophils # (Auto) 0.2 Thou/mm3 (0.0-0.5); Eosinophils % (Auto) 2 % (0-10); Hematocrit 23.8 % (41.0-53.0); Immature Granulocytes % (Auto) 1 % (0-0); Immature Granulocytes Auto 0.08 Thou/mm3 (0.00-0.00); Lymphocytes # (Auto) 0.6 Thou/mm3 (1.0-4.8); Lymphocytes % (Auto) 6 % (10-50); Mean Corpuscular HGB Conc 27.7 g/dl (31.0-37.0); Mean Corpuscular Hemoglobin 27.6 pg (25.0-35.0); Mean Corpuscular Volume 100 fL (80-100); Monocytes # (Auto) 0.7 Thou/mm3 (0.0-0.8); Monocytes % (Auto) 7 % (0-12); Neutrophils # (Auto) 7.8 Thou/mm3 (1.8-7.7); Neutrophils % (Auto) 84 % (37-80); Nucleated Red Blood Cell # 0.03 Thou/mm3 (0.00-0.00); Nucleated Red Blood Cell % 0 /100 WBC (0); Platelet Count 214 Thou/mm3 (140-440); RDW Standard Deviation 88.1 fL (35.1-43.9); Red Blood Count 2.39 Miln/mm3 (4.50-5.90); White Blood Count 9.3 Thou/mm3 (3.8-10.6)
[2024-07-24 08:11] LABS: Hemoglobin 6.6 g/dL (13.5-16.0)
[2024-07-24 08:18] LABS: Alanine Aminotransferase 170 U/L (10-49); Alkaline Phosphatase 298 U/L (46-116); Anion Gap 8 (7-16); Aspartate Amino Transferase 208 U/L (0-34); BUN/Creatinine Ratio 45 Ratio (12-20); Bilirubin,Total < 0.2 mg/dL (0.3-1.2); Blood Urea Nitrogen 63 mg/dL (9-23); Calcium 8.1 mg/dL (8.3-10.6); Calcium (Corrected) 8.9 mg/dL (8.5-10.1); Carbon Dioxide > 40.0 mMol/L (20.0-31.0); Chloride 105 mMol/L (98-107); Creatinine (Component) 1.4 mg/dL (0.6-1.3); Estimated Creatinine Clearance 64.6 mL/min (>60); Globulin 2.9 gm/dL (2.3-3.5); Glucose 124 mg/dL (74-106); Magnesium 2.3 mg/dL (1.6-2.6); Osmolality,Calculated 322 (275-295); Phosphorous 3.4 mg/dL (2.4-5.1); Potassium 3.9 mMol/L (3.4-5.1); Sodium 153 mMol/L (136-145); Total Protein 5.9 gm/dL (5.7-8.2); eGFR > 60 See Note
[2024-07-24] MEDS: GABAPENTIN 100 MG CAPSULE 400 MG GT ×2 (09:40→21:26)
[2024-07-24] MEDS: EMTRICITABINE 200 MG/TENOFOVIR 300 MG TAB (NON-FORM) 1 TAB PO (09:41)
[2024-07-24] MEDS: modafiniL 100 MG TABLET PO (09:41)
[2024-07-24] MEDS: ENOXAPARIN SOD INJ 80 MG/0.8 ML SYRINGE SC ×2 (09:41→21:26)
[2024-07-24] MEDS: ASPIRIN 81 MG CHEW GT (09:42)
[2024-07-24] MEDS: methylPREDNISolone 4 MG TABLET 8 MG GT (09:42)
[2024-07-24] MEDS: RALTEGRAVIR 400 MG TABLET NG ×2 (09:43→21:26)
[2024-07-24] MEDS: LEVOFLOXACIN/D5W 750MG IVPB 750 MG/150 ML BAG 100 MG IV (09:43)
[2024-07-24] MEDS: LINEZOLID 600 MG IVPB 600 MG/300 ML BAG 300 MG IV ×2 (09:43→21:26)
[2024-07-24] MEDS: SODIUM CHLORIDE 0.9% IV (10:22)
[2024-07-24] MEDS: TOBRAMYCIN IV (10:22)
[2024-07-24] MEDS: TRIMETHOPRIM 160 MG/SULFA 800 MG SUSP 20 ML UDC GT (10:22)
--- NOTE | 2024-07-24 10:28 | PC.CC ---
Rounding note: pt remains in ICU.
[2024-07-24] MEDS: CALCIUM CARBONATE 600 MG TABLET GT (13:22)
[2024-07-24 13:32] LABS: Path Review Blood Smear Sent to Pathologist
--- NOTE | 2024-07-24 13:32 | ESPR_ITS ---
<Statement entered by Colton Feliciano DO - 07/24/24 23:39> Senior attestation: Patient was examined and case was reviewed with team including attending physician. Note reviewed, I agree with most of its contents and agree with the patient's care. No overnight events reported, however hemoglobin 6.6 this morning, 1 unit pRBC ordered, no signs of active bleeding noted. Will adjust antibiotic regimen and add tobramycin given culture results revealing enterobacter cloacae with sensitivity to tobramycin. Pharmacy team was contacted regarding tobramycin, will be able to begin medication. Will also continue linezolid and levofloxacin. Vent settings adjusted today based on toleration, will hold on daily labs as well since patient has shown clinical stability. Possible LTAC discharge soon, will have to confirm accepting facility will be able to administer tobramycin medication. Colton Feliciano DO PGY-3 Documentation for date of: 07/24/24 Subjective Subjective Interval history: 07/14/24: The patient was evaluated and examined at the bedside this morning. Patient did not had any overnight events. We have discontinued all IV sedatives, and we decreased the frequency of doses of phenobarbital 60 Mg twice daily, clonazepam 0.5 Mg twice daily, and will continue gabapentin 400 Mg twice daily along with methadone 20 Mg 3 times daily. Lung compliance seems to be improving. His white count was 15.1, ABG done revealed pCO2 83, bicarb 54 with phosphorus 2.3. Phosphorus and magnesium was repleted. Liver enzymes trending down. We ordered EEG to evaluate for any further anoxic brain injury. We will try to get SAT in a couple of days. 07/15/2024: The patient was evaluated and examined at the bedside this morning. No acute overnight events. We gave 1 dose of phenobarbital 30 Mg and stopped it. Clonazepam dose was decreased down to 0.25 Mg twice daily, we will continue with gabapentin 400 Mg twice daily and methadone was decreased to 15 Mg 3 times daily. Lung compliance seems to be improving, white count trending down, hemoglobin was 6.9 and 1 unit PRBC was ordered. VBG revealed pCO2 of 79, pO2 40 and pH 7.39. Mild elevation in liver enzymes, we will continue to monitor. EEG was significant for diffuse slowing of waveforms, but official reading pending. 07/16/2024: Patient seen and examined at bedside. No overnight events. Patient responsive to painful stimuli, opens eyes. Patient has decreasing urine output, Lasix 40 ordered. Kayexalate given for potassium 5.4. Patietn on pressure support overnight, morning ABG showed pH 7.25, pCO2 115, pO2 70. Changed to SIVM, repeat ABG showed pH 7.32, pCO2 95, pO2 59. 07/17/2024: The patient was seen and examined at the bedside. No overnight events. Patient has been still responsive to painful stimuli, tries to open his eyes when asked. Labs were significant for decreasing white count to 11.0, hemoglobin 7.4, sodium 147, potassium 3.0 was repleted with 40 mEq oral KCl, AST/ALT mildly elevated 151/123 with ALP 382. We decreased the methadone dose to 10 Mg 3 times daily, and we will keep continuing gabapentin 400 Mg twice daily. Modafinil 100 Mg daily was started to wake him up. 07/18/2024; Patient seen and examined by bedside, no overnight events reported. Continues to be stable and saturating well on same ventilator settings of SIMV, RR 15, TV 500, PS 10, and FiO2 of 70%. Labs noted for hypernatremia with Na 152, HCo3>40, ABG pH 7.35, paCO2 92 and SaO2 90%, Continue patient on same medication regimen with plan to decrease Methylprednisolone to 5 starting on 07/20/24, will also continue patient on Modafinil and start patient on anabolic steroid. Increased patient's free water flushes to 100cc q6hr from 50, gently increasing not to overload patient. Continue patient also on Acetazolamide twice daily for one day more. Continue to correct electrolytes as needed. [facility] plan to send patient to LTAC once more alert. 07/19/2024; patient was seen and examined by bedside this morning, no acute events overnight reported, appears more reactive this morning with opening eyes and moving them toward voice direction, remains hemodynamically stable on mechanical ventilation with saturation of 94% on 70% FiO2. No significant change in CBC this morning from 2 days ago, CMP noted for stable hyponatremia at 152, HCO3> 40, and mild elevation LFTs. Continue patient on current regimen of HAART, Bactrim, modafinil, gabapentin, therapeutic enoxaparin, atorvastatin and aspirin. Patient's methadone dose was decreased to twice daily, continuing methylprednisolone at 10 mg p.o. daily until 07/21, after which we will transition to methylprednisolone 5 mg daily after that. Discussed with social media marketing specialist to find placement for LTAC, search continues for accepting facility, family updated regarding patient's condition and management plan. 07/20/2024; Patient was seen and examined by bedside, no overnight events reported, physical exam unchanged from prior day patient's only noted for opening eyes to verbal stimuli and blink reflex, continues to be on same ventilatory settings saturating well. Vitals were noted for sinus tachycardia with HR in 120s, patient was given 500cc of LR bolus and 2mg of ivp morphine for evaluation of sinus tachycardia, no effect of saline bolus on heart rate, and morphine effect was short-lived, no wbc increase on yesterday's labs nor fever overnight, ackerman and central line were discontinued a few days prior, will order Bcx, Ucx, CXR and sputum culture for further workup, will also continue to monitor wbc and vitals and start treatment as warranted. Patient continues to be on Bactrim, HAART and therapeutic Enoxaparin, will increase patient's Methadone back to TID and taper down slowly. 07/21/2024; Patient was seen and examined by bedside, no acute overnight events reported, physical exam remains unchanged patient's neuroexam limited to opening eyes to verbal stimuli and blink reflex, continues to be tachycardic with rate in lower 120s, no leukocytosis, negative Procal, blood cultures/urine cultures/sputum Gram stain-cultures were collected, will follow-up on results and meantime no change to antibiotic therapy as patient's labs including CBC/CMP unchanged from prior except for improving LFTs. Sputum cultures was negative for AFB/coccidiomycosis. Will continue patient on current management of HAART therapy, Bactrim, TID Methadone& Gabapentin along with Methylprednisolone. 07/22/2024: Patient seen and examined at bedside, overnight patient's MAP trending low, patient was given 2 L LR, this morning BP 74/39, MAP 51, patient fluid responsive per NICOM, was given another liter bolus, patient will be started on maintenance fluids 75 cc/h, will consider starting low-dose pressors if blood pressure continues to remain low, patient's urine culture positive for gram-negative rods, patient started on ceftriaxone, will follow urine culture results, elevated WBC count noted as well. Will follow-up with neurology for the possibility of switching aspirin to Plavix for the underlying right parietal ischemic stroke otherwise will continue with methadone 10 three times daily, gabapentin 400 twice daily and modafinil in a.m. Continue Lovenox 80 mg subcutaneous twice daily for DVT treatment. Will continue HAART therapy and Bactrim for HIV/AIDS. Plan to continue methylprednisolone for 1 week and plan to taper after. Will continue to manage patient's urinary tract infection. 07/23/2024: Patient was seen and examined today at the bedside in ICU. Overnight he was having heart rate in 130s. Morning labs showed worsening kidney function, creatinine 1.4, BUN 63. 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 His ceftriaxone was discontinued today. Methylprednisolone was increased to 8 mg daily. Labs showed sodium 153, potassium 5.8. He was given Kayexalate 15 mg x 1. He remains on norepinephrine and it was increased overnight, currently on 0.13 mcg/kg/h. Will continue current management and monitor patient. Awaiting for the final urine culture results. 07/24/2024: Patient seen and examined at bedside in ICU, no overnight events, renal function creatinine 1.4, BUN 63, patient has good urine output, patient's antibiotic therapy optimized, started on tobramycin along with linezolid and levofloxacin, culture results show Enterobacter cloacae with sensitivity to tobramycin, continue linezolid and levofloxacin as patient exhibited improvement. Potassium stable at 3.9 today. Patient's ventilator settings adjusted according to patient's ABG. Patient is able to hold MAP more than 65 without pressors. Plan to discharge patient to LTAC possibly tomorrow. Will continue to monitor patient. Exam Vital Signs Temp Pulse Resp BP Pulse Ox O2 Del Method O2 Flow Rate 98.1 F 101 H 23 H 93/62 100 Mechanical Ventilation 70 07/24/24 13:30 07/24/24 13:30 07/24/24 13:30 07/24/24 13:30 07/24/24 13:30 07/24/24 08:00 07/15/24 17:34 FiO2 55 07/24/24 11:51 Narrative Exam GEN: Critically ill, not acutely distressed, mechanically ventilated, tracks objects with eyes. Neuro: Appears more reactive this morning, eye opening to voice with eye movements. HEENT: NCAT, tracheostomy tube on appropriate position. Pupils sluggish but reactive. CVS: Tachycardic, no M/R/G. No JVD Respi: Mechanically ventilated, b/l breath sounds heard, significant rhonchi in all lung rosas. ABD: Soft, no grimace to palpation, bowel sounds present in all 4 quadrants, PEG tube in appropriate place Skin: warm, dry and intact. Decubitus sacral ulcer noted. Extremities: Pulses 2+ in all extremities, BUE/BLE 2+ edema, ruptured vesicles 1-2 cm on the rt forearm surface that have been healing. Objective Labs 07/26/24 05:00 07/26/24 05:36 Labs: Laboratory Results - last 24 hr 07/24/24 07/24/24 07/24/24 04:20 07:30 08:58 WBC 9.3 D RBC 2.39 L Hgb 6.6 L* Hct 23.8 L MCV 100 MCH 27.6 MCHC 27.7 L RDW Std Deviation 88.1 H Plt Count 214 Neut % (Auto) 84 H Lymph % (Auto) 6 L [place] % (Auto) 7 Eos % (Auto) 2 Baso % (Auto) 0 Neut # (Auto) 7.8 H Lymph # (Auto) 0.6 L [place] # (Auto) 0.7 Eos # (Auto) 0.2 Baso # (Auto) 0.0 Immature Gran # (Auto) 0.08 H Absolute Nucleated RBC 0.03 H Immature Gran % 1 H Nucleated RBC % 0 Smear Path Review Sent to Pathologist Puncture Site Left Radial ABG pH 7.27 L ABG pCO2 98 H* ABG pO2 35 L* D ABG HCO3 44 H ABG O2 Saturation 59 L ABG Base Excess 15 H FiO2 65 Sodium 153 H Potassium 3.9 D Chloride 105 Carbon Dioxide > 40.0 H Anion Gap 8 BUN 63 H Creatinine 1.4 H Estim Creat Clear Calc 64.6 eGFR > 60 BUN/Creatinine Ratio 45 H Glucose 124 H Calculated Osmolality 322 H Lactic Acid 1.0 Calcium 8.1 L Corrected Calcium 8.9 Phosphorus 3.4 Magnesium 2.3 Total Bilirubin < 0.2 L AST 208 H ALT 170 H Alkaline Phosphatase 298 H D Total Protein 5.9 Albumin 3.0 L Globulin 2.9 Albumin/Globulin Ratio 1.0 L Blood Type O Positive Antibody Screen NEGATIVE Crossmatch See Detail Blood Bank Wristband ID Yes ABG Interpretation ABG results: 05/27/24 05/29/24 05/29/24 23:37 10:44 22:08 ABG pH 7.51 H 7.50 H 7.48 H ABG pCO2 28 L 32 32 ABG pO2 75 L 79 L 145 H D ABG HCO3 23 25 24 ABG O2 Saturation 96 95 98 ABG Base Excess 0 2 1 VBG pH VBG pCO2 VBG pO2 VBG Base Excess 05/30/24 05/31/24 06/04/24 08:45 04:54 02:10 ABG pH 7.47 H 7.45 7.45 ABG pCO2 35 38 36 ABG pO2 86 D 82 L 139 H ABG HCO3 26 26 25 ABG O2 Saturation 97 96 98 ABG Base Excess 2 2 1 VBG pH VBG pCO2 VBG pO2 VBG Base Excess 06/04/24 06/05/24 06/05/24 18:16 11:36 12:59 ABG pH 7.44 7.11 L* D 7.20 L ABG pCO2 36 94 H* D 68 H D ABG pO2 80 L D 150 H D 121 H D ABG HCO3 24 30 H 26 ABG O2 Saturation 94 97 97 ABG Base Excess 0 -2 -3 VBG pH VBG pCO2 VBG pO2 VBG Base Excess 06/05/24 06/06/24 06/06/24 19:25 04:13 15:27 ABG pH 7.22 L 7.27 L 7.30 L ABG pCO2 64 H 57 H 60 H ABG pO2 122 H 153 H D 74 L D ABG HCO3 26 26 29 H ABG O2 Saturation 97 99 H 92 ABG Base Excess -3 -2 2 VBG pH VBG pCO2 VBG pO2 VBG Base Excess 06/07/24 06/07/24 06/08/24 03:55 09:59 04:20 ABG pH 7.41 D 7.43 7.45 ABG pCO2 56 H 55 H 50 H ABG pO2 293 H D 78 L D 75 L ABG HCO3 36 H 37 H 35 H ABG O2 Saturation 99 H 95 94 ABG Base Excess 10 H 11 H 10 H VBG pH VBG pCO2 VBG pO2 VBG Base Excess 06/08/24 06/08/24 06/08/24 11:05 11:50 13:18 ABG pH 7.17 L* D 7.10 L* 7.15 L* ABG pCO2 95 H* D 115 H* D 88 H* D ABG pO2 89 75 L 72 L ABG HCO3 34 H 36 H 31 H ABG O2 Saturation 92 84 L 85 L ABG Base Excess 3 4 H 0 VBG pH VBG pCO2 VBG pO2 VBG Base Excess 06/08/24 06/09/24 06/09/24 17:02 01:33 03:15 ABG pH 7.18 L* 7.22 L 7.27 L ABG pCO2 50 H D 91 H* D 82 H* ABG pO2 82 L 105 D 86 ABG HCO3 19 L 37 H 38 H ABG O2 Saturation 93 97 95 ABG Base Excess -9 L 7 H 9 H VBG pH VBG pCO2 VBG pO2 VBG Base Excess 06/09/24 06/09/24 06/10/24 05:08 12:52 04:40 ABG pH 7.31 L 7.33 L 7.30 L ABG pCO2 75 H* 57 H D 78 H* D ABG pO2 97 158 H D 65 L D ABG HCO3 38 H 30 H 38 H ABG O2 Saturation 97 99 H 90 L ABG Base Excess 10 H 3 9 H VBG pH VBG pCO2 VBG pO2 VBG Base Excess 06/10/24 06/11/24 06/12/24 09:40 04:19 04:15 ABG pH 7.27 L 7.35 7.48 H D ABG pCO2 88 H* D 86 H* 63 H D ABG pO2 65 L 70 L 76 L ABG HCO3 40 H 48 H 47 H ABG O2 Saturation 89 L 93 95 ABG Base Excess 10 H 19 H 21 H VBG pH VBG pCO2 VBG pO2 VBG Base Excess 06/13/24 06/14/24 06/15/24 07:22 04:32 03:45 ABG pH 7.46 H 7.48 H 7.46 H ABG pCO2 56 H 40 D 37 ABG pO2 80 L 64 L 71 L ABG HCO3 39 H 30 H 27 H ABG O2 Saturation 95 92 94 ABG Base Excess 13 H 6 H 3 VBG pH VBG pCO2 VBG pO2 VBG Base Excess 06/15/24 06/15/24 06/15/24 10:17 12:20 14:20 ABG pH 7.01 L* D 7.00 L* 7.03 L* ABG pCO2 122 H* D 130 H* 125 H* ABG pO2 91 D 88 82 L ABG HCO3 31 H 32 H 33 H ABG O2 Saturation 88 L 88 L 87 L ABG Base Excess -3 -2 -1 VBG pH VBG pCO2 VBG pO2 VBG Base Excess 06/15/24 06/15/24 06/16/24 15:55 20:39 00:35 ABG pH 7.03 L* 7.08 L* 7.10 L* ABG pCO2 121 H* 116 H* 118 H* ABG pO2 99 117 H 102 ABG HCO3 32 H 34 H 37 H ABG O2 Saturation 93 97 96 ABG Base Excess -1 2 4 H VBG pH VBG pCO2 VBG pO2 VBG Base Excess 06/16/24 06/16/24 06/17/24 04:45 08:55 05:06 ABG pH 7.17 L* 7.28 L D 7.33 L ABG pCO2 112 H* 88 H* D 96 H* ABG pO2 155 H D 98 D 126 H D ABG HCO3 41 H 41 H 50 H ABG O2 Saturation 99 H 98 99 H ABG Base Excess 9 H 12 H 21 H VBG pH VBG pCO2 VBG pO2 VBG Base Excess 06/17/24 06/17/24 06/18/24 10:58 13:55 04:16 ABG pH 7.29 L 7.29 L 7.33 L ABG pCO2 106 H* D 106 H* 86 H* D ABG pO2 58 L* D 61 L 77 L ABG HCO3 51 H 51 H 45 H ABG O2 Saturation 87 L 88 L 95 ABG Base Excess 21 H 21 H 17 H VBG pH VBG pCO2 VBG pO2 VBG Base Excess 06/19/24 06/20/24 06/21/24 04:18 04:49 04:06 ABG pH 7.42 7.36 7.44 ABG pCO2 63 H D 74 H* D 61 H D ABG pO2 66 L 55 L* 202 H D ABG HCO3 41 H 42 H 42 H ABG O2 Saturation 93 87 L 100 H ABG Base Excess 15 H 14 H 16 H VBG pH VBG pCO2 VBG pO2 VBG Base Excess 06/22/24 06/23/24 06/24/24 04:18 04:29 04:25 ABG pH 7.45 7.46 H 7.29 L D ABG pCO2 57 H 53 H 80 H* D ABG pO2 60 L D 99 D 88 ABG HCO3 40 H 38 H 38 H ABG O2 Saturation 91 99 H 96 ABG Base Excess 14 H 13 H 9 H VBG pH VBG pCO2 VBG pO2 VBG Base Excess 06/24/24 06/25/24 06/25/24 08:50 05:13 11:02 ABG pH 7.40 D 7.46 H Cancelled ABG pCO2 61 H D 53 H Cancelled ABG pO2 110 H D 66 L D Cancelled ABG HCO3 38 H 38 H Cancelled ABG O2 Saturation 99 H 94 Cancelled ABG Base Excess 12 H 13 H Cancelled VBG pH VBG pCO2 VBG pO2 VBG Base Excess 06/25/24 06/26/24 06/26/24 15:53 04:13 11:40 ABG pH 7.39 7.41 7.46 H ABG pCO2 53 H 48 43 ABG pO2 55 L* 58 L* 58 L* ABG HCO3 32 H 30 H 31 H ABG O2 Saturation 86 L 89 L 92 ABG Base Excess 6 H 5 H 6 H VBG pH VBG pCO2 VBG pO2 VBG Base Excess 06/27/24 06/28/24 06/28/24 04:17 04:24 06:22 ABG pH 7.48 H 7.27 L D 7.22 L ABG pCO2 39 72 H* D 83 H* D ABG pO2 49 L* 71 L D 82 L ABG HCO3 29 H 33 H 34 H ABG O2 Saturation 87 L 93 95 ABG Base Excess 5 H 5 H 4 H VBG pH VBG pCO2 VBG pO2 VBG Base Excess 06/28/24 06/29/24 06/30/24 10:18 04:21 07:57 ABG pH 7.32 L D 7.41 7.41 ABG pCO2 64 H D 63 H 62 H ABG pO2 76 L 81 L 59 L* D ABG HCO3 33 H 40 H 40 H ABG O2 Saturation 95 97 88 L ABG Base Excess 6 H 14 H 13 H VBG pH VBG pCO2 VBG pO2 VBG Base Excess 07/02/24 07/03/24 07/04/24 04:05 04:45 04:11 ABG pH 7.46 H 7.43 7.38 ABG pCO2 53 H 58 H 67 H ABG pO2 77 L 100 D 73 L D ABG HCO3 38 H 39 H 40 H ABG O2 Saturation 96 98 94 ABG Base Excess 12 H 13 H 13 H VBG pH VBG pCO2 VBG pO2 VBG Base Excess 07/05/24 07/06/24 07/09/24 04:40 04:08 04:53 ABG pH 7.30 L 7.42 D 7.26 L ABG pCO2 87 H* D 67 H D 94 H* ABG pO2 132 H D 64 L D 149 H ABG HCO3 43 H 43 H 42 H ABG O2 Saturation 99 H 92 100 H ABG Base Excess 14 H 17 H 12 H VBG pH VBG pCO2 VBG pO2 VBG Base Excess 07/11/24 07/12/24 07/14/24 11:34 04:49 04:45 ABG pH 7.25 L 7.36 D ABG pCO2 106 H* D 94 H* D ABG pO2 67 L D 59 L* ABG HCO3 46 H 53 H ABG O2 Saturation 91 90 L ABG Base Excess 16 H 24 H VBG pH 7.38 VBG pCO2 74 H VBG pO2 148 H VBG Base Excess 16 H 07/14/24 07/15/24 07/16/24 09:21 10:24 04:35 ABG pH 7.42 7.25 L D ABG pCO2 83 H* D 115 H* D ABG pO2 61 L 70 L ABG HCO3 54 H 50 H ABG O2 Saturation 92 93 ABG Base Excess 27 H 20 H VBG pH 7.39 VBG pCO2 79 H VBG pO2 40 VBG Base Excess 21 H 07/16/24 07/18/24 07/21/24 09:20 04:39 16:10 ABG pH 7.32 L 7.35 7.23 L ABG pCO2 95 H* D 92 H* 106 H* ABG pO2 59 L* 60 L 95 ABG HCO3 49 H 50 H 44 H ABG O2 Saturation 92 89 L 96 ABG Base Excess 20 H 22 H 14 H VBG pH VBG pCO2 VBG pO2 VBG Base Excess 07/22/24 07/23/24 07/24/24 09:31 05:51 04:20 ABG pH 7.27 L ABG pCO2 98 H* ABG pO2 35 L* D ABG HCO3 44 H ABG O2 Saturation 59 L ABG Base Excess 15 H VBG pH 7.44 7.36 VBG pCO2 59 H 76 H D VBG pO2 83 H 127 H D VBG Base Excess 14 H 15 H Quality Measures Quality Measures sepsis Current suspected stage: ruled out Possible source: pulmonary, GI tract/intra-abdominal, genitourinary and skin/soft tissue Blood cultures ordered: yes Antibiotic ordered: Yes Assessment & Plan Assessment Current Active Medications: Generic Name Dose Route Start Last Admin Trade Name Freq PRN Reason Stop Dose Admin Acetaminophen 650 mg 06/26/24 15:16 07/15/24 00:37 Acetaminophen Munira 325 Mg/10 Ml Udc GT 07/26/24 15:15 650 mg Q4HR PRN Administration Pain Or Fever > 100.3 Protocol Albuterol/Ipratropium 3 ml 07/21/24 19:00 07/24/24 10:27 Albuterol/Ipratropium (Duoneb) Rt Munira 3 Ml Nebu INH 08/20/24 18:59 3 ml Q4HRRT JUAN JOSE Administration Aspirin 81 mg 07/20/24 09:00 07/24/24 09:42 Aspirin 81 Mg Chew GT 08/19/24 08:59 81 mg QDAY JUAN JOSE Administration Atorvastatin Calcium 40 mg 07/21/24 21:00 07/23/24 20:18 Atorvastatin Calcium 20 Mg Tablet GT 08/20/24 20:59 40 mg HS JUAN JOSE Administration Calcium Carbonate 600 mg 06/28/24 13:00 07/24/24 13:22 Calcium Carbonate 600 Mg Tablet GT 07/28/24 12:59 600 mg QDAY@1300 JUAN JOSE Administration Emtricitabine/Tenofovir 1 tab 07/23/24 12:45 07/24/24 09:41 Emtricitabine 200 Mg/Tenofovir 300 Mg Tab (Non-Form) PO 08/22/24 12:44 1 tab QDAY JUAN JOSE Administration Enoxaparin Sodium 80 mg 07/15/24 21:00 07/24/24 09:41 Enoxaparin Sod Inj 80 Mg/0.8 Ml Syringe SC 10/11/24 08:00 80 mg BID JUAN JOSE Administration Gabapentin 400 mg 07/13/24 21:00 07/24/24 09:40 Gabapentin 100 Mg Capsule GT 08/12/24 20:59 400 mg BID JUAN JOSE Administration Norepinephrine/Dextrose 8 mg in 250 mls @ 6.319 mls/hr 06/30/24 04:17 07/24/24 04:45 Levophed In D5w 8mg/250ml IV 07/30/24 04:16 0 mcg/kg/min .Q24H PRN 0 mls/hr PER PROTOCOL Titration Protocol 0.05 MCG/KG/MIN Linezolid 600 mg in 300 mls @ 300 mls/hr 07/23/24 08:06 07/24/24 09:43 Zyvox Ivpb IV 07/30/24 08:05 300 mls/hr Q12HR JUAN JOSE Administration Protocol Levofloxacin/Dextrose 750 mg in 150 mls @ 100 mls/hr 07/23/24 09:00 07/24/24 09:43 Levaquin Ivpb IV 07/30/24 08:59 100 mls/hr QDAY JUAN JOSE Administration Tobramycin Sulfate 350 mg/ 108.75 mls @ 108.75 mls/hr 07/24/24 11:00 07/24/24 10:22 Sodium Chloride IV 07/31/24 10:59 108.75 mls/hr QDAY JUAN JOSE Administration Methadone HCl 10 mg 07/21/24 06:00 07/24/24 13:22 Methadone Hcl 10 Mg Tablet GT 07/26/24 05:59 10 mg TID JUAN JOSE Administration Methylprednisolone 8 mg 07/23/24 09:00 07/24/24 09:42 Methylprednisolone 4 Mg Tablet GT 08/22/24 08:59 8 mg QDAY JUAN JOSE Administration Modafinil 100 mg 07/18/24 09:00 07/24/24 09:41 Modafinil 100 Mg Tablet PO 08/17/24 08:59 100 mg QDAY JUAN JOSE Administration Pharmacy Consult 1 each 07/24/24 09:45 Pharmacy To Dose Tobramycin IV 08/23/24 09:44 QDAY PRN CONSULT Raltegravir 400 mg 07/23/24 12:45 07/24/24 09:43 Raltegravir 400 Mg Tablet NG 08/22/24 12:44 400 mg BID JUAN JOSE Administration Trimethoprim/Sulfamethoxazole 20 ml 07/20/24 11:00 07/24/24 10:22 Trimethoprim 160 Mg/Sulfa 800 Mg Susp 20 Ml Udc GT 07/25/24 10:59 20 ml QDAY@1100 [facility] Administration Plan 39-year-old male patient with no PMHx who initially presented to [facility] on 05/27/2024 with a chief complaint of shortness of breath and cough, with associated chills, body aches, generalized weakness, fever, and night sweats beginning weeks prior but progressively worsening over a few days is currently being treated for acute hypoxic respiratory failure secondary to PCP pneumonia that was complicated by ventilator associated pneumonia. Patient is currently on tracheostomy tube and mechanically ventilated. NEURO Acute encephalopathy. DDx; Multifactorial in setting of CVA/Medications/Metabolic/ and prolonged ICU stay. 06/05/2024 Patient was intubated, sedated, and paralyzed for ARDS. -Continue methadone dose to 10 Mg 3 times daily, and we will keep continuing gabapentin 400 Mg twice daily. Modafinil 100 Mg daily was started to wake him up. #Rt Parietal ischemic Stroke. MRI on 07/08 Large area of restricted diffusion in the left frontal parietal white matter and small foci in the right parietal white matter most consistent with acute infarction. -On aspirin 81mg daily and atorvastatin 80mg daily at night. -Consulted neurology, will follow-up possibility of switching aspirin with Plavix. #Fever, resolved. #Withdrawal syndrome, stable. Multiple cultures has been negative in the past, urine culture positive for GNR no fevers noted. -Treat underlying condition -Tylenol as needed CARDIO #Right subclavian and axillary vein DVT. -Doppler US right upper extremity 06/17/24: revealed RUE DVT -On Heparin Drip 06/17-07/09, On Enoxaparin 80mg BID 07/11- #Sinus tachycardia. Tachycardia most likely secondary to acute respiratory distress syndrome contributed by withdrawal while tapering the dose of IV sedatives. -Continue to treat underlying cause. #Septic shock. Patient presented with septic shock secondary to severe extensive bilateral pneumonia. After resolution of initial septic shock, patient developed new hypotension, tachycardia, tachypnea, fevers indicated of septic shock. Sacral ulcer noted on lower back, could be possible source of infection, will continue IV antibiotics. Plan: -Started on tobramycin (07/24- -started on linezolid and levofloxacin. (07/23- -continue maintenance fluids LR 75 cc/h. -Urine culture 07/21 positive for gram-negative rods, will follow for final results. -Pressor support as needed. -ceftriaxone (07/22/24-07/23/2024) -Linezolid (started 06/27-07/04). -Meropenem (started 06/27-07/04). -Urine (06/27) showed resistant staph epi. -Blood (06/27) showed resistant Staphylococcus haemolyticus. -repeat blood cultures and urine cultures negative. -Infectious disease consulted, appreciate recommendations PULM #Chronic hypoxic respiratory failure 2/2. # Acute respiratory distress syndrome in the setting of post PCP pneumonia state. Secondary to #Bilateral pneumocystis jirovecii pneumonia, resolved. #Healthcare associated pneumonia, resolved, resolved. #Ventilator associated pneumonia, resolved. #S/P Tracheostomy. #Pneumomediastinum, resolved. -ABG done on 07/14/24 showed improvement. On vent support. -Titrate down FiO2 as tolerated. GI GI prophylaxis: Patient on G-tube feeding, GI prophylaxis not indicated. #Elevated LFTs 2/2 HIV. DDx: adverse affect of drugs, we had discontinued oxycodone previously, and phenobarbitol. Liver enzymes started trending down after discontinuing oxycodone and phenobarbitol. liver US 05/30/2024 showed normal gallbladder and hepatomegaly without lesions or evidence of obstructions. Hep panel negative. LFTs downtrending. Plan: -Continue monitoring. #Hypertriglyceridemia, down trending. secondary to propofol use. -Discontinued propofol. NEPHRO #WILL, resolving. Patient had WILL likely 2/2 congestion. -Was given Diamox 500 IV twice daily (06/26-06/27). -Monitor UOP and renal panel. #Central diabetes insipidus, resolved. #Hypophosphatemia, repleted. #Hyperkalemia., Resolved #Mild hyponatremia, resolved #Hyperphosphetemia, stable - calcium carbonate 600mg daily. #NAGMA. #Primary Respiratory acidosis compensated by metabolic alkalosis. Secondary to increased work of breathing and increased RR 2/2 chronic hypoxic respiratory failure and chronic respiratory distress syndrome in the setting of tapering down of IV sedatives. -ABGs 07/21/24 shows pH 7.23, pCO2 106, bicarb 44. -We will treat the underlying cause respiratory acidosis. HEME #Leukocytosis. Likely reactive as we are tapering down sedatives and is still on steroid. 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 Clinically no evidence of bleeding. Iron panel shows iron 17, TIBC 262, iron saturation 6, unsaturated iron binding 245. Peripheral blood film confirms microcytic hypochromic anemia with target cells. Also daily lab draws contributing. Patient required x1 PRBC for Hg 6.9. Plan: -Started on oral ferrous sulfate 300 Mg daily. -Feraheme 510mg was given x1 on 07/15/24. -Monitor H&H. Transfusing for Hgb <7. #Thrombocytosis, resolved Likely reactive in the setting of withdrawal syndrome. -Continue to monitor. ENDO #Hypoglycemia, .resolved ID #Bilateral pneumocystis pneumonia, resolved. #Healthcare associated pneumonia, resolved. #Ventilator associated pneumonia, resolved. #PCP pneumonia prophylaxis. Negative studies: Cocci IgM and IgG, Hepatitis panel, Syphilis, Legionella, H.flu, N.meningitidis, Strep B, Strep pneumoniae, COVID, RSV, Flu A & B. TB quantiferon GOLD-indeterminate, however 06/05 AFB negative, CMV IgM, cryptococcal antigen negative. G6PD levels came back normal for consideration of dapsone alternative to Bactrim if needed. Patient completed 5 day course of azithromycin, 16 days of Zosyn. See Pulm for timeline of antimicrobial coverage. On 06/27 patient developed new septic shock. Plan: -Antibiotics Bactrim for prevention of PCP pneumonia in the setting of CD4 count of 116 -Linezolid and meropenum restarted on 06/27/2024-07/04/24, discontinued. -Urine ackerman port grew GPC, Staph epidermidis that is MDR, sensitive to linezolid, Completed therapy. -Fungal cultures from BAL pending, follow-up on results. -Blood cultures from 06/26/2024 and 06/27/2024, negative so far, cultures drawn on 06/29/2024 is pending. -Follow up blood, sputum, and urine cultures were negative. -Repeat blood, urine, sputum cultures were ordered on 07/07/2024- negative. # Urinary tract infection, Enterobacter cloacae. 07/22-Patient developed hypotension overnight, was given LR bolus, continues to be hypotensive, NICOM shows patient will be fluid responsive, started on maintenance fluids, urine culture noted to be positive for GNR, patient will be started on ceftriaxone, will start on pressors if needed, will discontinue condom catheter. Also sacral ulcer noted on lower back, could be possible source of infection, will continue IV antibiotics. Urine cultures show Enterobacter cloacae sensitive to tobramycin -Started on tobramycin (07/24- -started on linezolid and levofloxacin. (07/23- -ceftriaxone (07/22/24-07/23/2024) -continue maintenance fluids LR 75 cc/h -Urine culture 07/21 positive for gram-negative rods, will follow for final results -Pressor support as needed #AIDS/HIV. Continue HAART regimen. Continue Bactrim 20ml PO daily for prophylaxis. #IRIS---Resolved. Tappering off steroids slowely. MSK #Elevated creatine kinase---Resolved. SKIN #Lower lip abrasion. #Right forearm blisters. -Improving. -Monitor closely. 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 Patient has new complication with GNR UTI, started on therapy. Pending discharge to LTAC, will stabilize patient. DVT prophylaxis: On enoxaparin 80mg BID for treatment of right upper extremity DVT GI prophylaxis: On tube feeds, not indicated. Diet: Tube feeds . Ackerman:Condom cath discontinued 07/22. Lines: PIV. Antibiotics: Bactrim, ceftriaxone. CODE STATUS: DNR/DNI. Case discussed with Attending Dr. Anderson and my senior Dr. Feliciano PGY3. Yadira Welsh, PGY1. Disclaimer: This note was dictated by speech recognition. Minor errors in accounting file clerk may be present due to voice recognition software. Attending Provider Attestation/Addendum Patient seen and examined with above resident, Yadira Welsh MD. I agree with the findings, assessment, and plan of care as documented except for any differences below. Patient continues to show improvement after empiric antibiotic course. We did follow-up on Enterobacter sensitivity showing multidrug resistance. Patient will remain on Levaquin and we did request pharmacy to dose tobramycin given urinary tract source. We did resume linezolid coverage for history of VRE and known skin tear with potential for infection. Patient's gas exchange continues to be stable and his mentation seems to be slowly improving though it continues to have plateaued at this point. Will likely need prolonged rehabilitation for return of function given critical illness neuropathy/myopathy as well as neurologic insult seen by CT imaging. Patient's renal function has been stable with adequate urine output. He remains on appropriate HAART therapy for HIV and CD4 counts are being followed by infectious disease. Bactrim remains on for PJP prophylaxis. Patient will be set up for transfer to [facility] tomorrow given his continued improvement and stability. Will coordinate with the team at [facility] to ensure antibiotics can be continued for completion at the new facility. Patient's mother was updated at bedside on plan of care including plan to transition to long-term acute care in the [place] area. Total critical care time: I personally spent 35 minutes for review of physiologic parameters, directing plan of care throughout the day, coordination of care with case management, and counseling patient's family at bedside. This is exclusive of time spent teaching housestaff or performing any separate billable procedures. Patient continues to require critical care services for ARDS secondary to PJP pneumonia, now in fibrotic phase and course further complicated by ventilator associated pneumonia with slow weaning as well as septic shock secondary to Enterobacter complicated UTI. Patient remains at risk for further morbidity and mortality warranting ongoing care and monitoring only available in the intensive care unit.
[2024-07-24 15:33] LABS: HIV-1 RNA, QN PCR 237 copies/mL
[2024-07-24] MEDS: ATORVASTATIN CALCIUM 20 MG TABLET 40 MG GT (21:26)
[2024-07-25] VITALS (61 sets, daily range): BP systolic 85–122; BP diastolic 51–67; PULSE 111–131; RESP 11–29; TEMP 37.1–38.1; O2SAT 86–99
[2024-07-25 00:41] LABS: Hematocrit 26.4 % (41.0-53.0)
[2024-07-25 00:45] LABS: Hemoglobin 7.7 g/dL (13.5-16.0)
[2024-07-25] MEDS: ACETAMINOPHEN SOL 325 MG/10 ML UDC 650 MG GT (02:40)
--- NOTE | 2024-07-25 02:58 | PC.NURSE ---
DR. AYALA MADE AWARE OF PT RUNNING TEMP OF 100.6. TYLENOL GIVEN. COOLING MEASURES IMPLEMENTED. PT WITH SHIVERS. NO FURTHER ORDERS.
[2024-07-25] MEDS: ALBUTEROL/IPRATROPIUM (Duoneb) RT SOL 3 ML NEBU INH ×6 (03:09→22:40)
[2024-07-25] MEDS: METHADONE HCL 10 MG TABLET GT ×3 (05:02→20:18)
[2024-07-25 06:40] LABS: Basophils % (Auto) 0 % (0-2.5); Eosinophils # (Auto) 0.1 Thou/mm3 (0.0-0.5); Eosinophils % (Auto) 1 % (0-10); Hematocrit 27.9 % (41.0-53.0); Immature Granulocytes % (Auto) 2 % (0-0); Immature Granulocytes Auto 0.21 Thou/mm3 (0.00-0.00); Lymphocytes # (Auto) 0.6 Thou/mm3 (1.0-4.8); Lymphocytes % (Auto) 4 % (10-50); Mean Corpuscular HGB Conc 28.7 g/dl (31.0-37.0); Mean Corpuscular Hemoglobin 27.4 pg (25.0-35.0); Mean Corpuscular Volume 96 fL (80-100); Monocytes # (Auto) 0.8 Thou/mm3 (0.0-0.8); Monocytes % (Auto) 6 % (0-12); Neutrophils # (Auto) 11.1 Thou/mm3 (1.8-7.7); Neutrophils % (Auto) 87 % (37-80); Nucleated Red Blood Cell # 0.05 Thou/mm3 (0.00-0.00); Nucleated Red Blood Cell % 0 /100 WBC (0); Platelet Count 180 Thou/mm3 (140-440); RDW Standard Deviation 82.3 fL (35.1-43.9); Red Blood Count 2.92 Miln/mm3 (4.50-5.90); White Blood Count 12.9 Thou/mm3 (3.8-10.6)
[2024-07-25 06:50] LABS: HIV-1 RNA, QN PCR Log 2.37
[2024-07-25 07:08] LABS: Alanine Aminotransferase 176 U/L (10-49); Albumin, Serum 3.1 gm/dL (3.5-5.0); Albumin/Globulin Ratio 1.1 (1.2-2.2); Alkaline Phosphatase 310 U/L (46-116); Anion Gap 6 (7-16); Aspartate Amino Transferase 202 U/L (0-34); BUN/Creatinine Ratio 41 Ratio (12-20); Bilirubin,Total 0.2 mg/dL (0.3-1.2); Blood Urea Nitrogen 45 mg/dL (9-23); Calcium 8.4 mg/dL (8.3-10.6); Calcium (Corrected) 9.1 mg/dL (8.5-10.1); Carbon Dioxide > 40.0 mMol/L (20.0-31.0); Chloride 106 mMol/L (98-107); Creatinine (Component) 1.1 mg/dL (0.6-1.3); Estimated Creatinine Clearance 82.2 mL/min (>60); Globulin 2.9 gm/dL (2.3-3.5); Glucose 95 mg/dL (74-106); Magnesium 2.2 mg/dL (1.6-2.6); Osmolality,Calculated 313 (275-295); Phosphorous 2.8 mg/dL (2.4-5.1); Potassium 3.9 mMol/L (3.4-5.1); Sodium 152 mMol/L (136-145); eGFR > 60 See Note
[2024-07-25] MEDS: RALTEGRAVIR 400 MG TABLET NG ×2 (08:34→20:18)
[2024-07-25] MEDS: LEVOFLOXACIN/D5W 750MG IVPB 750 MG/150 ML BAG 100 MG IV (08:34)
[2024-07-25] MEDS: ASPIRIN 81 MG CHEW GT (08:34)
[2024-07-25] MEDS: ENOXAPARIN SOD INJ 80 MG/0.8 ML SYRINGE SC ×2 (08:34→20:19)
[2024-07-25] MEDS: EMTRICITABINE 200 MG/TENOFOVIR 300 MG TAB (NON-FORM) 1 TAB PO (08:34)
[2024-07-25] MEDS: GABAPENTIN 100 MG CAPSULE 400 MG GT ×2 (08:34→20:18)
[2024-07-25] MEDS: modafiniL 100 MG TABLET PO (08:35)
[2024-07-25] MEDS: methylPREDNISolone 4 MG TABLET 8 MG GT (08:37)
--- NOTE | 2024-07-25 09:46 | PC.SS ---
Addendum entered by BRII Sweet 07/25/24 15:03: SS update: SAS ANALYST was informed by medical team, the patient is being treated for UTI infection and is receiving IV antibiotics. Notified Juan Francisco at [facility] to make aware, he informs this should not be an issue for transport for tomorrow if patient is stable for transportation. Addendum entered by BRII Sweet 07/25/24 13:47: SS update: Spoke with Juan Francisco at [facility], confirmed they can accept the patient tomorrow morning. Notified respiratory staff La to make aware if staff is able to be present for patient's transport time. Attempted to contact patient's medical surrogate decision maker, Francesca Owen to make aware, however she was unavailable and voicemail was provided. Updated patient's bed side nurse Kayla to make aware. Addendum entered by BRII Sweet 07/25/24 12:18: 1218- Spoke with Clinical LiaSebastian at [facility] for an update. Juan Francisco informed that clinicals were received however, we are pending an open bed available for the patient at the facility. Juan Francisco informs he will contact to notify once they have an open bed. Original Note: SS Update: FLODY spoke with Dr. Anderson who informs patient is ready for discharge to [facility]. SAS ANALYST conducted phone contact with patient's medical surrogate decision maker, Francesca Owen confirm the patient?s discharge plan to [facility]. SAS ANALYST contacted Clinical Liaison-Juan Francisco at [facility] to inform patient is ready for discharge. Juan Francisco request updated clinicals to review. Darius informs he will notify if there is an open bed for the patient for today.
[2024-07-25] MEDS: SODIUM CHLORIDE 0.9% IV (09:54)
[2024-07-25] MEDS: TOBRAMYCIN IV (09:54)
[2024-07-25] MEDS: LINEZOLID 600 MG IVPB 600 MG/300 ML BAG 300 MG IV ×2 (12:16→20:18)
--- NOTE | 2024-07-25 13:12 | PD.IDPROG ---
Subjective Subjective Interval history: on broad rx per primary team for their own reasons. cre in urine with just 2 wbc in ua. so more likely colonization. situation noted. Exam Vital Signs Temp Pulse Resp BP Pulse Ox O2 Del Method O2 Flow Rate 99.6 F 114 H 21 H 96/56 L 94 L Mechanical Ventilation 70 07/25/24 12:00 07/25/24 12:16 07/25/24 11:07 07/25/24 12:16 07/25/24 12:16 07/25/24 12:16 07/15/24 17:34 FiO2 70 07/25/24 12:16 Narrative Exam pt static. having a bath. on 70% on vent. no new findings. no diarrhea noted. by staff. Objective - Internal Medicine Labs 07/25/24 06:14 07/25/24 06:14 Labs: Laboratory Results - last 24 hr 07/22/24 07/24/24 07/24/24 12:15 07:30 08:58 WBC RBC Hgb Hct MCV MCH MCHC RDW Std Deviation Plt Count Neut % (Auto) Lymph % (Auto) [place] % (Auto) Eos % (Auto) Baso % (Auto) Neut # (Auto) Lymph # (Auto) [place] # (Auto) Eos # (Auto) Baso # (Auto) Immature Gran # (Auto) Absolute Nucleated RBC Immature Gran % Nucleated RBC % Smear Path Review Sent to Pathologist Sodium Potassium Chloride Carbon Dioxide Anion Gap BUN Creatinine Estim Creat Clear Calc eGFR BUN/Creatinine Ratio Glucose Calculated Osmolality Calcium Corrected Calcium Phosphorus Magnesium Total Bilirubin AST ALT Alkaline Phosphatase Total Protein Albumin Globulin Albumin/Globulin Ratio HIV-1 RNA (PCR) 237 H HIV-1 RNA (PCR) log 2.37 H Blood Type O Positive Antibody Screen NEGATIVE Crossmatch See Detail Blood Bank Wristband ID Yes 07/25/24 07/25/24 00:23 06:14 WBC 12.9 H RBC 2.92 L Hgb 7.7 L 8.0 L Hct 26.4 L 27.9 L MCV 96 MCH 27.4 MCHC 28.7 L RDW Std Deviation 82.3 H Plt Count 180 D Neut % (Auto) 87 H Lymph % (Auto) 4 L [place] % (Auto) 6 Eos % (Auto) 1 Baso % (Auto) 0 Neut # (Auto) 11.1 H Lymph # (Auto) 0.6 L [place] # (Auto) 0.8 Eos # (Auto) 0.1 Baso # (Auto) 0.0 Immature Gran # (Auto) 0.21 H Absolute Nucleated RBC 0.05 H Immature Gran % 2 H Nucleated RBC % 0 Smear Path Review Sodium 152 H Potassium 3.9 Chloride 106 Carbon Dioxide > 40.0 H Anion Gap 6 L BUN 45 H Creatinine 1.1 Estim Creat Clear Calc 82.2 eGFR > 60 BUN/Creatinine Ratio 41 H Glucose 95 Calculated Osmolality 313 H Calcium 8.4 Corrected Calcium 9.1 Phosphorus 2.8 Magnesium 2.2 Total Bilirubin 0.2 L AST 202 H ALT 176 H Alkaline Phosphatase 310 H Total Protein 6.0 Albumin 3.1 L Globulin 2.9 Albumin/Globulin Ratio 1.1 L HIV-1 RNA (PCR) HIV-1 RNA (PCR) log Blood Type Antibody Screen Crossmatch Blood Bank Wristband ID ABG Interpretation ABG results: 05/27/24 05/29/24 05/29/24 23:37 10:44 22:08 ABG pH 7.51 H 7.50 H 7.48 H ABG pCO2 28 L 32 32 ABG pO2 75 L 79 L 145 H D ABG HCO3 23 25 24 ABG O2 Saturation 96 95 98 ABG Base Excess 0 2 1 VBG pH VBG pCO2 VBG pO2 VBG Base Excess 05/30/24 05/31/24 06/04/24 08:45 04:54 02:10 ABG pH 7.47 H 7.45 7.45 ABG pCO2 35 38 36 ABG pO2 86 D 82 L 139 H ABG HCO3 26 26 25 ABG O2 Saturation 97 96 98 ABG Base Excess 2 2 1 VBG pH VBG pCO2 VBG pO2 VBG Base Excess 06/04/24 06/05/24 06/05/24 18:16 11:36 12:59 ABG pH 7.44 7.11 L* D 7.20 L ABG pCO2 36 94 H* D 68 H D ABG pO2 80 L D 150 H D 121 H D ABG HCO3 24 30 H 26 ABG O2 Saturation 94 97 97 ABG Base Excess 0 -2 -3 VBG pH VBG pCO2 VBG pO2 VBG Base Excess 06/05/24 06/06/24 06/06/24 19:25 04:13 15:27 ABG pH 7.22 L 7.27 L 7.30 L ABG pCO2 64 H 57 H 60 H ABG pO2 122 H 153 H D 74 L D ABG HCO3 26 26 29 H ABG O2 Saturation 97 99 H 92 ABG Base Excess -3 -2 2 VBG pH VBG pCO2 VBG pO2 VBG Base Excess 06/07/24 06/07/24 06/08/24 03:55 09:59 04:20 ABG pH 7.41 D 7.43 7.45 ABG pCO2 56 H 55 H 50 H ABG pO2 293 H D 78 L D 75 L ABG HCO3 36 H 37 H 35 H ABG O2 Saturation 99 H 95 94 ABG Base Excess 10 H 11 H 10 H VBG pH VBG pCO2 VBG pO2 VBG Base Excess 06/08/24 06/08/24 06/08/24 11:05 11:50 13:18 ABG pH 7.17 L* D 7.10 L* 7.15 L* ABG pCO2 95 H* D 115 H* D 88 H* D ABG pO2 89 75 L 72 L ABG HCO3 34 H 36 H 31 H ABG O2 Saturation 92 84 L 85 L ABG Base Excess 3 4 H 0 VBG pH VBG pCO2 VBG pO2 VBG Base Excess 06/08/24 06/09/24 06/09/24 17:02 01:33 03:15 ABG pH 7.18 L* 7.22 L 7.27 L ABG pCO2 50 H D 91 H* D 82 H* ABG pO2 82 L 105 D 86 ABG HCO3 19 L 37 H 38 H ABG O2 Saturation 93 97 95 ABG Base Excess -9 L 7 H 9 H VBG pH VBG pCO2 VBG pO2 VBG Base Excess 06/09/24 06/09/24 06/10/24 05:08 12:52 04:40 ABG pH 7.31 L 7.33 L 7.30 L ABG pCO2 75 H* 57 H D 78 H* D ABG pO2 97 158 H D 65 L D ABG HCO3 38 H 30 H 38 H ABG O2 Saturation 97 99 H 90 L ABG Base Excess 10 H 3 9 H VBG pH VBG pCO2 VBG pO2 VBG Base Excess 06/10/24 06/11/24 06/12/24 09:40 04:19 04:15 ABG pH 7.27 L 7.35 7.48 H D ABG pCO2 88 H* D 86 H* 63 H D ABG pO2 65 L 70 L 76 L ABG HCO3 40 H 48 H 47 H ABG O2 Saturation 89 L 93 95 ABG Base Excess 10 H 19 H 21 H VBG pH VBG pCO2 VBG pO2 VBG Base Excess 06/13/24 06/14/24 06/15/24 07:22 04:32 03:45 ABG pH 7.46 H 7.48 H 7.46 H ABG pCO2 56 H 40 D 37 ABG pO2 80 L 64 L 71 L ABG HCO3 39 H 30 H 27 H ABG O2 Saturation 95 92 94 ABG Base Excess 13 H 6 H 3 VBG pH VBG pCO2 VBG pO2 VBG Base Excess 06/15/24 06/15/24 06/15/24 10:17 12:20 14:20 ABG pH 7.01 L* D 7.00 L* 7.03 L* ABG pCO2 122 H* D 130 H* 125 H* ABG pO2 91 D 88 82 L ABG HCO3 31 H 32 H 33 H ABG O2 Saturation 88 L 88 L 87 L ABG Base Excess -3 -2 -1 VBG pH VBG pCO2 VBG pO2 VBG Base Excess 06/15/24 06/15/24 06/16/24 15:55 20:39 00:35 ABG pH 7.03 L* 7.08 L* 7.10 L* ABG pCO2 121 H* 116 H* 118 H* ABG pO2 99 117 H 102 ABG HCO3 32 H 34 H 37 H ABG O2 Saturation 93 97 96 ABG Base Excess -1 2 4 H VBG pH VBG pCO2 VBG pO2 VBG Base Excess 06/16/24 06/16/24 06/17/24 04:45 08:55 05:06 ABG pH 7.17 L* 7.28 L D 7.33 L ABG pCO2 112 H* 88 H* D 96 H* ABG pO2 155 H D 98 D 126 H D ABG HCO3 41 H 41 H 50 H ABG O2 Saturation 99 H 98 99 H ABG Base Excess 9 H 12 H 21 H VBG pH VBG pCO2 VBG pO2 VBG Base Excess 06/17/24 06/17/24 06/18/24 10:58 13:55 04:16 ABG pH 7.29 L 7.29 L 7.33 L ABG pCO2 106 H* D 106 H* 86 H* D ABG pO2 58 L* D 61 L 77 L ABG HCO3 51 H 51 H 45 H ABG O2 Saturation 87 L 88 L 95 ABG Base Excess 21 H 21 H 17 H VBG pH VBG pCO2 VBG pO2 VBG Base Excess 06/19/24 06/20/24 06/21/24 04:18 04:49 04:06 ABG pH 7.42 7.36 7.44 ABG pCO2 63 H D 74 H* D 61 H D ABG pO2 66 L 55 L* 202 H D ABG HCO3 41 H 42 H 42 H ABG O2 Saturation 93 87 L 100 H ABG Base Excess 15 H 14 H 16 H VBG pH VBG pCO2 VBG pO2 VBG Base Excess 06/22/24 06/23/24 06/24/24 04:18 04:29 04:25 ABG pH 7.45 7.46 H 7.29 L D ABG pCO2 57 H 53 H 80 H* D ABG pO2 60 L D 99 D 88 ABG HCO3 40 H 38 H 38 H ABG O2 Saturation 91 99 H 96 ABG Base Excess 14 H 13 H 9 H VBG pH VBG pCO2 VBG pO2 VBG Base Excess 06/24/24 06/25/24 06/25/24 08:50 05:13 11:02 ABG pH 7.40 D 7.46 H Cancelled ABG pCO2 61 H D 53 H Cancelled ABG pO2 110 H D 66 L D Cancelled ABG HCO3 38 H 38 H Cancelled ABG O2 Saturation 99 H 94 Cancelled ABG Base Excess 12 H 13 H Cancelled VBG pH VBG pCO2 VBG pO2 VBG Base Excess 06/25/24 06/26/24 06/26/24 15:53 04:13 11:40 ABG pH 7.39 7.41 7.46 H ABG pCO2 53 H 48 43 ABG pO2 55 L* 58 L* 58 L* ABG HCO3 32 H 30 H 31 H ABG O2 Saturation 86 L 89 L 92 ABG Base Excess 6 H 5 H 6 H VBG pH VBG pCO2 VBG pO2 VBG Base Excess 06/27/24 06/28/24 06/28/24 04:17 04:24 06:22 ABG pH 7.48 H 7.27 L D 7.22 L ABG pCO2 39 72 H* D 83 H* D ABG pO2 49 L* 71 L D 82 L ABG HCO3 29 H 33 H 34 H ABG O2 Saturation 87 L 93 95 ABG Base Excess 5 H 5 H 4 H VBG pH VBG pCO2 VBG pO2 VBG Base Excess 06/28/24 06/29/24 06/30/24 10:18 04:21 07:57 ABG pH 7.32 L D 7.41 7.41 ABG pCO2 64 H D 63 H 62 H ABG pO2 76 L 81 L 59 L* D ABG HCO3 33 H 40 H 40 H ABG O2 Saturation 95 97 88 L ABG Base Excess 6 H 14 H 13 H VBG pH VBG pCO2 VBG pO2 VBG Base Excess 07/02/24 07/03/24 07/04/24 04:05 04:45 04:11 ABG pH 7.46 H 7.43 7.38 ABG pCO2 53 H 58 H 67 H ABG pO2 77 L 100 D 73 L D ABG HCO3 38 H 39 H 40 H ABG O2 Saturation 96 98 94 ABG Base Excess 12 H 13 H 13 H VBG pH VBG pCO2 VBG pO2 VBG Base Excess 07/05/24 07/06/24 07/09/24 04:40 04:08 04:53 ABG pH 7.30 L 7.42 D 7.26 L ABG pCO2 87 H* D 67 H D 94 H* ABG pO2 132 H D 64 L D 149 H ABG HCO3 43 H 43 H 42 H ABG O2 Saturation 99 H 92 100 H ABG Base Excess 14 H 17 H 12 H VBG pH VBG pCO2 VBG pO2 VBG Base Excess 07/11/24 07/12/24 07/14/24 11:34 04:49 04:45 ABG pH 7.25 L 7.36 D ABG pCO2 106 H* D 94 H* D ABG pO2 67 L D 59 L* ABG HCO3 46 H 53 H ABG O2 Saturation 91 90 L ABG Base Excess 16 H 24 H VBG pH 7.38 VBG pCO2 74 H VBG pO2 148 H VBG Base Excess 16 H 07/14/24 07/15/24 07/16/24 09:21 10:24 04:35 ABG pH 7.42 7.25 L D ABG pCO2 83 H* D 115 H* D ABG pO2 61 L 70 L ABG HCO3 54 H 50 H ABG O2 Saturation 92 93 ABG Base Excess 27 H 20 H VBG pH 7.39 VBG pCO2 79 H VBG pO2 40 VBG Base Excess 21 H 07/16/24 07/18/24 07/21/24 09:20 04:39 16:10 ABG pH 7.32 L 7.35 7.23 L ABG pCO2 95 H* D 92 H* 106 H* ABG pO2 59 L* 60 L 95 ABG HCO3 49 H 50 H 44 H ABG O2 Saturation 92 89 L 96 ABG Base Excess 20 H 22 H 14 H VBG pH VBG pCO2 VBG pO2 VBG Base Excess 07/22/24 07/23/24 07/24/24 09:31 05:51 04:20 ABG pH 7.27 L ABG pCO2 98 H* ABG pO2 35 L* D ABG HCO3 44 H ABG O2 Saturation 59 L ABG Base Excess 15 H VBG pH 7.44 7.36 VBG pCO2 59 H 76 H D VBG pO2 83 H 127 H D VBG Base Excess 14 H 15 H Assessment & Plan A&P Narrative pneumonia.pjp on bal noted. on preventive rx after acute rx of 22 with steroids hiv. infection, newly discovered in a heterosexual man. can not r/o ivdu as a presumptive cause of acquisition resp failure, hypoxic with ards noted. variable O2 status jo ann, resolved. acute febrile illness. cause uncertain.rx empirical, cx unrevealing 7d is reasonable max rx, please remember prior rx so we do not repeat ourselves rash on rt arm. cause uncertain. stabilized, rt arm only he has hiv, girlfriend reportedly was tested and is reportedly neg. ok for hiv rx as ordered. changed bactrim to once daily about 06/29. hiv rx is ongoing. if vl less than before we are ok. unless R is noted As noted before, not every one survives, he is only 39, but is newly discovered to have a very bad disease that is easier to manage if caught earlier. ok to slowly wean steroids. ok to be off flucon as cd4 >100 and crypto ag neg. will have to notify pt when he is awake of his findings. be sure that gf is tested as precaution. family states she is neg. lft's noted. can be caused by any of a number of factors. normal/neg bili noted. had a blip a few days ago and is trending favorably again value of added rocephin uncertain as ua benign. await the tests ordered the other day. we usually do not repeat the hiv vl and cd4 for 3 mo after verifying s virus in system would not treat for cmv, am ok with a biopsy of the rt arm if felt needed. note neg syphilis screen and unilateral finding on arm await repeated hiv testing and R assay, to verify response to rx given variable status did not do R assay initially it seems as that result is not on file. vl and f/u labs pending from almost a week ago. no hiv vl or r assay done. apparently cancelled by another provider. not me. re ordered both, as cd4 is down sl, so he may not be optimally controlled yet, or it may his overall illness status. had to renew the bactrim. pt on tobra too, but rationale for any abx appears to be limited. stopped the tobra today. Time Spent With Patient Time: Total time spent is greater than 50% in coordination of care (as documented) at patient's floor/unit and/or counseling patient:
--- NOTE | 2024-07-25 13:58 | XR_ITS ---
Examination: AP chest single view Technique one AP portable semiupright chest single view Exam date and time: July 25, 2024 1433 hours Comparison July 21, 2024 Colon bone or ARDS, hypoxic respiratory failure this week. FINDINGS: Severe bilateral lung opacity Normal heart size Tracheostomy tube tip 4 cm above sunil IMPRESSION: No significant change in severe bilateral pneumonia ARDS pattern
[2024-07-25] MEDS: CALCIUM CARBONATE 600 MG TABLET GT (14:08)
[2024-07-25] MEDS: TRIMETHOPRIM/SULFA 160/800 DS TABLET 1 TAB PO (14:24)
--- NOTE | 2024-07-25 18:33 | ESPR_ITS ---
Documentation for date of: 07/25/24 Subjective Subjective Interval history: 07/15/2024: The patient was evaluated and examined at the bedside this morning. No acute overnight events. We gave 1 dose of phenobarbital 30 Mg and stopped it. Clonazepam dose was decreased down to 0.25 Mg twice daily, we will continue with gabapentin 400 Mg twice daily and methadone was decreased to 15 Mg 3 times daily. Lung compliance seems to be improving, white count trending down, hemoglobin was 6.9 and 1 unit PRBC was ordered. VBG revealed pCO2 of 79, pO2 40 and pH 7.39. Mild elevation in liver enzymes, we will continue to monitor. EEG was significant for diffuse slowing of waveforms, but official reading pending. 07/16/2024: Patient seen and examined at bedside. No overnight events. Patient responsive to painful stimuli, opens eyes. Patient has decreasing urine output, Lasix 40 ordered. Kayexalate given for potassium 5.4. Patietn on pressure support overnight, morning ABG showed pH 7.25, pCO2 115, pO2 70. Changed to SIVM, repeat ABG showed pH 7.32, pCO2 95, pO2 59. 07/17/2024: The patient was seen and examined at the bedside. No overnight events. Patient has been still responsive to painful stimuli, tries to open his eyes when asked. Labs were significant for decreasing white count to 11.0, hemoglobin 7.4, sodium 147, potassium 3.0 was repleted with 40 mEq oral KCl, AST/ALT mildly elevated 151/123 with ALP 382. We decreased the methadone dose to 10 Mg 3 times daily, and we will keep continuing gabapentin 400 Mg twice daily. Modafinil 100 Mg daily was started to wake him up. 07/18/2024; Patient seen and examined by bedside, no overnight events reported. Continues to be stable and saturating well on same ventilator settings of SIMV, RR 15, TV 500, PS 10, and FiO2 of 70%. Labs noted for hypernatremia with Na 152, HCo3>40, ABG pH 7.35, paCO2 92 and SaO2 90%, Continue patient on same medication regimen with plan to decrease Methylprednisolone to 5 starting on 07/20/24, will also continue patient on Modafinil and start patient on anabolic steroid. Increased patient's free water flushes to 100cc q6hr from 50, gently increasing not to overload patient. Continue patient also on Acetazolamide twice daily for one day more. Continue to correct electrolytes as needed. [facility] plan to send patient to LTAC once more alert. 07/19/2024; patient was seen and examined by bedside this morning, no acute events overnight reported, appears more reactive this morning with opening eyes and moving them toward voice direction, remains hemodynamically stable on mechanical ventilation with saturation of 94% on 70% FiO2. No significant change in CBC this morning from 2 days ago, CMP noted for stable hyponatremia at 152, HCO3> 40, and mild elevation LFTs. Continue patient on current regimen of HAART, Bactrim, modafinil, gabapentin, therapeutic enoxaparin, atorvastatin and aspirin. Patient's methadone dose was decreased to twice daily, continuing methylprednisolone at 10 mg p.o. daily until 07/21, after which we will transition to methylprednisolone 5 mg daily after that. Discussed with marriage and family social worker to find placement for LTAC, search continues for accepting facility, family updated regarding patient's condition and management plan. 07/20/2024; Patient was seen and examined by bedside, no overnight events reported, physical exam unchanged from prior day patient's only noted for opening eyes to verbal stimuli and blink reflex, continues to be on same ventilatory settings saturating well. Vitals were noted for sinus tachycardia with HR in 120s, patient was given 500cc of LR bolus and 2mg of ivp morphine for evaluation of sinus tachycardia, no effect of saline bolus on heart rate, and morphine effect was short-lived, no wbc increase on yesterday's labs nor fever overnight, ackerman and central line were discontinued a few days prior, will order Bcx, Ucx, CXR and sputum culture for further workup, will also continue to monitor wbc and vitals and start treatment as warranted. Patient continues to be on Bactrim, HAART and therapeutic Enoxaparin, will increase patient's Methadone back to TID and taper down slowly. 07/21/2024; Patient was seen and examined by bedside, no acute overnight events reported, physical exam remains unchanged patient's neuroexam limited to opening eyes to verbal stimuli and blink reflex, continues to be tachycardic with rate in lower 120s, no leukocytosis, negative Procal, blood cultures/urine cultures/sputum Gram stain-cultures were collected, will follow-up on results and meantime no change to antibiotic therapy as patient's labs including CBC/CMP unchanged from prior except for improving LFTs. Sputum cultures was negative for AFB/coccidiomycosis. Will continue patient on current management of HAART therapy, Bactrim, TID Methadone& Gabapentin along with Methylprednisolone. 07/22/2024: Patient seen and examined at bedside, overnight patient's MAP trending low, patient was given 2 L LR, this morning BP 74/39, MAP 51, patient fluid responsive per NICOM, was given another liter bolus, patient will be started on maintenance fluids 75 cc/h, will consider starting low-dose pressors if blood pressure continues to remain low, patient's urine culture positive for gram-negative rods, patient started on ceftriaxone, will follow urine culture results, elevated WBC count noted as well. Will follow-up with neurology for the possibility of switching aspirin to Plavix for the underlying right parietal ischemic stroke otherwise will continue with methadone 10 three times daily, gabapentin 400 twice daily and modafinil in a.m. Continue Lovenox 80 mg subcutaneous twice daily for DVT treatment. Will continue HAART therapy and Bactrim for HIV/AIDS. Plan to continue methylprednisolone for 1 week and plan to taper after. Will continue to manage patient's urinary tract infection. 07/23/2024: Patient was seen and examined today at the bedside in ICU. Overnight he was having heart rate in 130s. Morning labs showed worsening kidney function, creatinine 1.4, BUN 63. 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 His ceftriaxone was discontinued today. Methylprednisolone was increased to 8 mg daily. Labs showed sodium 153, potassium 5.8. He was given Kayexalate 15 mg x 1. He remains on norepinephrine and it was increased overnight, currently on 0.13 mcg/kg/h. Will continue current management and monitor patient. Awaiting for the final urine culture results. 07/24/2024: Patient seen and examined at bedside in ICU, no overnight events, renal function creatinine 1.4, BUN 63, patient has good urine output, patient's antibiotic therapy optimized, started on tobramycin along with linezolid and levofloxacin, culture results show Enterobacter cloacae with sensitivity to tobramycin, continue linezolid and levofloxacin as patient exhibited improvement. Potassium stable at 3.9 today. Patient's ventilator settings adjusted according to patient's ABG. Patient is able to hold MAP more than 65 without pressors. Plan to discharge patient to LTAC possibly tomorrow. Will continue to monitor patient. 07/25/2024: Patient seen and examined at bedside in ICU, no overnight events renal function improving, creatinine 1.1, BUN 45, GFR>60. Full-body exam done today, sacral ulcer noted. Patient has hyponatremia sodium 152, plan to increase free water flushes to 250 cc every 6 hours for 2 days to cover the free water deficit of 1.9 L. Patient was seen by infectious disease today, antibiotic therapy adjusted to Bactrim linezolid and levofloxacin, tobramycin discontinued patient's blood pressure stable. Possible discharge to LTAC tomorrow. Exam Vital Signs Temp Pulse Resp BP Pulse Ox O2 Del Method O2 Flow Rate 99.8 F 127 H 23 H 88/57 L 91 L Mechanical Ventilation 70 07/25/24 16:00 07/25/24 18:00 07/25/24 14:50 07/25/24 18:00 07/25/24 18:00 07/25/24 18:00 07/15/24 17:34 FiO2 80 07/25/24 18:00 Narrative Exam GEN: Critically ill, not acutely distressed, mechanically ventilated, tracks objects with eyes. Neuro: Appears more reactive this morning, eye opening to voice with eye movements. HEENT: NCAT, tracheostomy tube on appropriate position. Pupils sluggish but reactive. CVS: Tachycardic, no M/R/G. No JVD Respi: Mechanically ventilated, b/l breath sounds heard, significant rhonchi in all lung rosas. ABD: Soft, no grimace to palpation, bowel sounds present in all 4 quadrants, PEG tube in appropriate place Skin: warm, dry and intact. Decubitus sacral ulcer noted. Extremities: Pulses 2+ in all extremities, BUE/BLE 2+ edema, ruptured vesicles 1-2 cm on the rt forearm surface that have been healing. Objective Labs 07/26/24 05:00 07/26/24 05:36 Labs: Laboratory Results - last 24 hr 07/22/24 07/25/24 07/25/24 12:15 00:23 06:14 WBC 12.9 H RBC 2.92 L Hgb 7.7 L 8.0 L Hct 26.4 L 27.9 L MCV 96 MCH 27.4 MCHC 28.7 L RDW Std Deviation 82.3 H Plt Count 180 D Neut % (Auto) 87 H Lymph % (Auto) 4 L [place] % (Auto) 6 Eos % (Auto) 1 Baso % (Auto) 0 Neut # (Auto) 11.1 H Lymph # (Auto) 0.6 L [place] # (Auto) 0.8 Eos # (Auto) 0.1 Baso # (Auto) 0.0 Immature Gran # (Auto) 0.21 H Absolute Nucleated RBC 0.05 H Immature Gran % 2 H Nucleated RBC % 0 Sodium 152 H Potassium 3.9 Chloride 106 Carbon Dioxide > 40.0 H Anion Gap 6 L BUN 45 H Creatinine 1.1 Estim Creat Clear Calc 82.2 eGFR > 60 BUN/Creatinine Ratio 41 H Glucose 95 Calculated Osmolality 313 H Calcium 8.4 Corrected Calcium 9.1 Phosphorus 2.8 Magnesium 2.2 Total Bilirubin 0.2 L AST 202 H ALT 176 H Alkaline Phosphatase 310 H Total Protein 6.0 Albumin 3.1 L Globulin 2.9 Albumin/Globulin Ratio 1.1 L HIV-1 RNA (PCR) 237 H HIV-1 RNA (PCR) log 2.37 H ABG Interpretation ABG results: 05/27/24 05/29/24 05/29/24 23:37 10:44 22:08 ABG pH 7.51 H 7.50 H 7.48 H ABG pCO2 28 L 32 32 ABG pO2 75 L 79 L 145 H D ABG HCO3 23 25 24 ABG O2 Saturation 96 95 98 ABG Base Excess 0 2 1 VBG pH VBG pCO2 VBG pO2 VBG Base Excess 05/30/24 05/31/24 06/04/24 08:45 04:54 02:10 ABG pH 7.47 H 7.45 7.45 ABG pCO2 35 38 36 ABG pO2 86 D 82 L 139 H ABG HCO3 26 26 25 ABG O2 Saturation 97 96 98 ABG Base Excess 2 2 1 VBG pH VBG pCO2 VBG pO2 VBG Base Excess 06/04/24 06/05/24 06/05/24 18:16 11:36 12:59 ABG pH 7.44 7.11 L* D 7.20 L ABG pCO2 36 94 H* D 68 H D ABG pO2 80 L D 150 H D 121 H D ABG HCO3 24 30 H 26 ABG O2 Saturation 94 97 97 ABG Base Excess 0 -2 -3 VBG pH VBG pCO2 VBG pO2 VBG Base Excess 06/05/24 06/06/24 06/06/24 19:25 04:13 15:27 ABG pH 7.22 L 7.27 L 7.30 L ABG pCO2 64 H 57 H 60 H ABG pO2 122 H 153 H D 74 L D ABG HCO3 26 26 29 H ABG O2 Saturation 97 99 H 92 ABG Base Excess -3 -2 2 VBG pH VBG pCO2 VBG pO2 VBG Base Excess 06/07/24 06/07/24 06/08/24 03:55 09:59 04:20 ABG pH 7.41 D 7.43 7.45 ABG pCO2 56 H 55 H 50 H ABG pO2 293 H D 78 L D 75 L ABG HCO3 36 H 37 H 35 H ABG O2 Saturation 99 H 95 94 ABG Base Excess 10 H 11 H 10 H VBG pH VBG pCO2 VBG pO2 VBG Base Excess 06/08/24 06/08/24 06/08/24 11:05 11:50 13:18 ABG pH 7.17 L* D 7.10 L* 7.15 L* ABG pCO2 95 H* D 115 H* D 88 H* D ABG pO2 89 75 L 72 L ABG HCO3 34 H 36 H 31 H ABG O2 Saturation 92 84 L 85 L ABG Base Excess 3 4 H 0 VBG pH VBG pCO2 VBG pO2 VBG Base Excess 06/08/24 06/09/24 06/09/24 17:02 01:33 03:15 ABG pH 7.18 L* 7.22 L 7.27 L ABG pCO2 50 H D 91 H* D 82 H* ABG pO2 82 L 105 D 86 ABG HCO3 19 L 37 H 38 H ABG O2 Saturation 93 97 95 ABG Base Excess -9 L 7 H 9 H VBG pH VBG pCO2 VBG pO2 VBG Base Excess 06/09/24 06/09/24 06/10/24 05:08 12:52 04:40 ABG pH 7.31 L 7.33 L 7.30 L ABG pCO2 75 H* 57 H D 78 H* D ABG pO2 97 158 H D 65 L D ABG HCO3 38 H 30 H 38 H ABG O2 Saturation 97 99 H 90 L ABG Base Excess 10 H 3 9 H VBG pH VBG pCO2 VBG pO2 VBG Base Excess 06/10/24 06/11/24 06/12/24 09:40 04:19 04:15 ABG pH 7.27 L 7.35 7.48 H D ABG pCO2 88 H* D 86 H* 63 H D ABG pO2 65 L 70 L 76 L ABG HCO3 40 H 48 H 47 H ABG O2 Saturation 89 L 93 95 ABG Base Excess 10 H 19 H 21 H VBG pH VBG pCO2 VBG pO2 VBG Base Excess 06/13/24 06/14/24 06/15/24 07:22 04:32 03:45 ABG pH 7.46 H 7.48 H 7.46 H ABG pCO2 56 H 40 D 37 ABG pO2 80 L 64 L 71 L ABG HCO3 39 H 30 H 27 H ABG O2 Saturation 95 92 94 ABG Base Excess 13 H 6 H 3 VBG pH VBG pCO2 VBG pO2 VBG Base Excess 06/15/24 06/15/24 06/15/24 10:17 12:20 14:20 ABG pH 7.01 L* D 7.00 L* 7.03 L* ABG pCO2 122 H* D 130 H* 125 H* ABG pO2 91 D 88 82 L ABG HCO3 31 H 32 H 33 H ABG O2 Saturation 88 L 88 L 87 L ABG Base Excess -3 -2 -1 VBG pH VBG pCO2 VBG pO2 VBG Base Excess 06/15/24 06/15/24 06/16/24 15:55 20:39 00:35 ABG pH 7.03 L* 7.08 L* 7.10 L* ABG pCO2 121 H* 116 H* 118 H* ABG pO2 99 117 H 102 ABG HCO3 32 H 34 H 37 H ABG O2 Saturation 93 97 96 ABG Base Excess -1 2 4 H VBG pH VBG pCO2 VBG pO2 VBG Base Excess 06/16/24 06/16/24 06/17/24 04:45 08:55 05:06 ABG pH 7.17 L* 7.28 L D 7.33 L ABG pCO2 112 H* 88 H* D 96 H* ABG pO2 155 H D 98 D 126 H D ABG HCO3 41 H 41 H 50 H ABG O2 Saturation 99 H 98 99 H ABG Base Excess 9 H 12 H 21 H VBG pH VBG pCO2 VBG pO2 VBG Base Excess 06/17/24 06/17/24 06/18/24 10:58 13:55 04:16 ABG pH 7.29 L 7.29 L 7.33 L ABG pCO2 106 H* D 106 H* 86 H* D ABG pO2 58 L* D 61 L 77 L ABG HCO3 51 H 51 H 45 H ABG O2 Saturation 87 L 88 L 95 ABG Base Excess 21 H 21 H 17 H VBG pH VBG pCO2 VBG pO2 VBG Base Excess 06/19/24 06/20/24 06/21/24 04:18 04:49 04:06 ABG pH 7.42 7.36 7.44 ABG pCO2 63 H D 74 H* D 61 H D ABG pO2 66 L 55 L* 202 H D ABG HCO3 41 H 42 H 42 H ABG O2 Saturation 93 87 L 100 H ABG Base Excess 15 H 14 H 16 H VBG pH VBG pCO2 VBG pO2 VBG Base Excess 06/22/24 06/23/24 06/24/24 04:18 04:29 04:25 ABG pH 7.45 7.46 H 7.29 L D ABG pCO2 57 H 53 H 80 H* D ABG pO2 60 L D 99 D 88 ABG HCO3 40 H 38 H 38 H ABG O2 Saturation 91 99 H 96 ABG Base Excess 14 H 13 H 9 H VBG pH VBG pCO2 VBG pO2 VBG Base Excess 06/24/24 06/25/24 06/25/24 08:50 05:13 11:02 ABG pH 7.40 D 7.46 H Cancelled ABG pCO2 61 H D 53 H Cancelled ABG pO2 110 H D 66 L D Cancelled ABG HCO3 38 H 38 H Cancelled ABG O2 Saturation 99 H 94 Cancelled ABG Base Excess 12 H 13 H Cancelled VBG pH VBG pCO2 VBG pO2 VBG Base Excess 06/25/24 06/26/24 06/26/24 15:53 04:13 11:40 ABG pH 7.39 7.41 7.46 H ABG pCO2 53 H 48 43 ABG pO2 55 L* 58 L* 58 L* ABG HCO3 32 H 30 H 31 H ABG O2 Saturation 86 L 89 L 92 ABG Base Excess 6 H 5 H 6 H VBG pH VBG pCO2 VBG pO2 VBG Base Excess 06/27/24 06/28/24 06/28/24 04:17 04:24 06:22 ABG pH 7.48 H 7.27 L D 7.22 L ABG pCO2 39 72 H* D 83 H* D ABG pO2 49 L* 71 L D 82 L ABG HCO3 29 H 33 H 34 H ABG O2 Saturation 87 L 93 95 ABG Base Excess 5 H 5 H 4 H VBG pH VBG pCO2 VBG pO2 VBG Base Excess 06/28/24 06/29/24 06/30/24 10:18 04:21 07:57 ABG pH 7.32 L D 7.41 7.41 ABG pCO2 64 H D 63 H 62 H ABG pO2 76 L 81 L 59 L* D ABG HCO3 33 H 40 H 40 H ABG O2 Saturation 95 97 88 L ABG Base Excess 6 H 14 H 13 H VBG pH VBG pCO2 VBG pO2 VBG Base Excess 07/02/24 07/03/24 07/04/24 04:05 04:45 04:11 ABG pH 7.46 H 7.43 7.38 ABG pCO2 53 H 58 H 67 H ABG pO2 77 L 100 D 73 L D ABG HCO3 38 H 39 H 40 H ABG O2 Saturation 96 98 94 ABG Base Excess 12 H 13 H 13 H VBG pH VBG pCO2 VBG pO2 VBG Base Excess 07/05/24 07/06/24 07/09/24 04:40 04:08 04:53 ABG pH 7.30 L 7.42 D 7.26 L ABG pCO2 87 H* D 67 H D 94 H* ABG pO2 132 H D 64 L D 149 H ABG HCO3 43 H 43 H 42 H ABG O2 Saturation 99 H 92 100 H ABG Base Excess 14 H 17 H 12 H VBG pH VBG pCO2 VBG pO2 VBG Base Excess 07/11/24 07/12/24 07/14/24 11:34 04:49 04:45 ABG pH 7.25 L 7.36 D ABG pCO2 106 H* D 94 H* D ABG pO2 67 L D 59 L* ABG HCO3 46 H 53 H ABG O2 Saturation 91 90 L ABG Base Excess 16 H 24 H VBG pH 7.38 VBG pCO2 74 H VBG pO2 148 H VBG Base Excess 16 H 07/14/24 07/15/24 07/16/24 09:21 10:24 04:35 ABG pH 7.42 7.25 L D ABG pCO2 83 H* D 115 H* D ABG pO2 61 L 70 L ABG HCO3 54 H 50 H ABG O2 Saturation 92 93 ABG Base Excess 27 H 20 H VBG pH 7.39 VBG pCO2 79 H VBG pO2 40 VBG Base Excess 21 H 07/16/24 07/18/24 07/21/24 09:20 04:39 16:10 ABG pH 7.32 L 7.35 7.23 L ABG pCO2 95 H* D 92 H* 106 H* ABG pO2 59 L* 60 L 95 ABG HCO3 49 H 50 H 44 H ABG O2 Saturation 92 89 L 96 ABG Base Excess 20 H 22 H 14 H VBG pH VBG pCO2 VBG pO2 VBG Base Excess 07/22/24 07/23/24 07/24/24 09:31 05:51 04:20 ABG pH 7.27 L ABG pCO2 98 H* ABG pO2 35 L* D ABG HCO3 44 H ABG O2 Saturation 59 L ABG Base Excess 15 H VBG pH 7.44 7.36 VBG pCO2 59 H 76 H D VBG pO2 83 H 127 H D VBG Base Excess 14 H 15 H Quality Measures Quality Measures sepsis Current suspected stage: ruled out Possible source: pulmonary, GI tract/intra-abdominal, genitourinary and skin/soft tissue Blood cultures ordered: yes Antibiotic ordered: Yes Assessment & Plan Assessment Current Active Medications: Generic Name Dose Route Start Last Admin Trade Name Freq PRN Reason Stop Dose Admin Acetaminophen 650 mg 06/26/24 15:16 07/25/24 02:40 Acetaminophen Munira 325 Mg/10 Ml Udc GT 07/26/24 15:15 650 mg Q4HR PRN Administration Pain Or Fever > 100.3 Protocol Albuterol/Ipratropium 3 ml 07/21/24 19:00 07/25/24 14:49 Albuterol/Ipratropium (Duoneb) Rt Munira 3 Ml Nebu INH 08/20/24 18:59 3 ml Q4HRRT JUAN JOSE Administration Aspirin 81 mg 07/20/24 09:00 07/25/24 08:34 Aspirin 81 Mg Chew GT 08/19/24 08:59 81 mg QDAY JUAN JOSE Administration Atorvastatin Calcium 40 mg 07/21/24 21:00 07/24/24 21:26 Atorvastatin Calcium 20 Mg Tablet GT 08/20/24 20:59 40 mg HS JUAN JOSE Administration Calcium Carbonate 600 mg 06/28/24 13:00 07/25/24 14:08 Calcium Carbonate 600 Mg Tablet GT 07/28/24 12:59 600 mg QDAY@1300 JUAN JOSE Administration Emtricitabine/Tenofovir 1 tab 07/23/24 12:45 07/25/24 08:34 Emtricitabine 200 Mg/Tenofovir 300 Mg Tab (Non-Form) PO 08/22/24 12:44 1 tab QDAY JUAN JOSE Administration Enoxaparin Sodium 80 mg 07/15/24 21:00 07/25/24 08:34 Enoxaparin Sod Inj 80 Mg/0.8 Ml Syringe SC 10/11/24 08:00 80 mg BID JUAN JOSE Administration Gabapentin 400 mg 07/13/24 21:00 07/25/24 08:34 Gabapentin 100 Mg Capsule GT 08/12/24 20:59 400 mg BID JUAN JOSE Administration Norepinephrine/Dextrose 8 mg in 250 mls @ 6.319 mls/hr 06/30/24 04:17 07/24/24 04:45 Levophed In D5w 8mg/250ml IV 07/30/24 04:16 0 mcg/kg/min .Q24H PRN 0 mls/hr PER PROTOCOL Titration Protocol 0.05 MCG/KG/MIN Linezolid 600 mg in 300 mls @ 300 mls/hr 07/23/24 08:06 07/25/24 12:16 Zyvox Ivpb IV 07/30/24 08:05 300 mls/hr Q12HR JUAN JOSE Administration Protocol Levofloxacin/Dextrose 750 mg in 150 mls @ 100 mls/hr 07/23/24 09:00 07/25/24 08:34 Levaquin Ivpb IV 07/30/24 08:59 100 mls/hr QDAY JUAN JOSE Administration Methadone HCl 10 mg 07/21/24 06:00 07/25/24 14:08 Methadone Hcl 10 Mg Tablet GT 07/26/24 05:59 10 mg TID JUAN JOSE Administration Methylprednisolone 8 mg 07/23/24 09:00 07/25/24 08:37 Methylprednisolone 4 Mg Tablet GT 08/22/24 08:59 8 mg QDAY JUAN JOSE Administration Modafinil 100 mg 07/18/24 09:00 07/25/24 08:35 Modafinil 100 Mg Tablet PO 08/17/24 08:59 100 mg QDAY JUAN JOSE Administration Pharmacy Consult 1 each 07/24/24 09:45 Pharmacy To Dose Tobramycin IV 08/23/24 09:44 QDAY PRN CONSULT Raltegravir 400 mg 07/23/24 12:45 07/25/24 08:34 Raltegravir 400 Mg Tablet NG 08/22/24 12:44 400 mg BID JUAN JOSE Administration Trimethoprim/Sulfamethoxazole 1 tab 07/25/24 13:30 07/25/24 14:24 Trimethoprim/Sulfa 160/800 Ds Tablet PO 10/26/24 13:00 1 tab DAILY JUAN JOSE Administration Plan 39-year-old male patient with no PMHx who initially presented to [facility] on 05/[facility]/2024 with a chief complaint of shortness of breath and cough, with associated chills, body aches, generalized weakness, fever, and night sweats beginning weeks prior but progressively worsening over a few days is currently being treated for acute hypoxic respiratory failure secondary to PCP pneumonia that was complicated by ventilator associated pneumonia. Patient is currently on tracheostomy tube and mechanically ventilated. NEURO Acute encephalopathy. DDx; Multifactorial in setting of CVA/Medications/Metabolic/ and prolonged ICU stay. 06/05/2024 Patient was intubated, sedated, and paralyzed for ARDS. -Continue methadone dose to 10 Mg 3 times daily, and we will keep continuing gabapentin 400 Mg twice daily. Modafinil 100 Mg daily was started to wake him up. #Rt Parietal ischemic Stroke. MRI on 07/08 Large area of restricted diffusion in the left frontal parietal white matter and small foci in the right parietal white matter most consistent with acute infarction. -On aspirin 81mg daily and atorvastatin 80mg daily at night. -Consulted neurology, will follow-up possibility of switching aspirin with Plavix. #Fever, resolved. #Withdrawal syndrome, stable. Multiple cultures has been negative in the past, urine culture positive for GNR no fevers noted. -Treat underlying condition -Tylenol as needed CARDIO #Right subclavian and axillary vein DVT. -Doppler US right upper extremity 06/17/24: revealed RUE DVT -On Heparin Drip 06/17-07/09, On Enoxaparin 80mg BID 07/11- #Sinus tachycardia. Tachycardia most likely secondary to acute respiratory distress syndrome contributed by withdrawal while tapering the dose of IV sedatives. -Continue to treat underlying cause. #Septic shock. Patient presented with septic shock secondary to severe extensive bilateral pneumonia. After resolution of initial septic shock, patient developed new hypotension, tachycardia, tachypnea, fevers indicated of septic shock. Sacral ulcer noted on lower back, could be possible source of infection, will continue IV antibiotics. Plan: -started on linezolid and levofloxacin. (07/23- -started on bactrim (07/25 -Urine culture 07/21 positive for gram-negative rods, will follow for final results. -Pressor support as needed. -tobramycin (07/24-07/25) -ceftriaxone (07/22/24-07/23/2024) -Linezolid (started 06/27-07/04). -Meropenem (started 06/27-07/04). -Urine (06/27) showed resistant staph epi. -Blood (06/27) showed resistant Staphylococcus haemolyticus. -repeat blood cultures and urine cultures negative. -Infectious disease consulted, appreciate recommendations PULM #Chronic hypoxic respiratory failure 2/2. # Acute respiratory distress syndrome in the setting of post PCP pneumonia state. Secondary to #Bilateral pneumocystis jirovecii pneumonia, resolved. #Healthcare associated pneumonia, resolved, resolved. #Ventilator associated pneumonia, resolved. #S/P Tracheostomy. #Pneumomediastinum, resolved. -ABG done on 07/14/24 showed improvement. On vent support. -Titrate down FiO2 as tolerated. GI GI prophylaxis: Patient on G-tube feeding, GI prophylaxis not indicated. #Elevated LFTs 2/2 HIV. DDx: adverse affect of drugs, we had discontinued oxycodone previously, and phenobarbitol. Liver enzymes started trending down after discontinuing oxycodone and phenobarbitol. liver US 05/30/2024 showed normal gallbladder and hepatomegaly without lesions or evidence of obstructions. Hep panel negative. LFTs downtrending. Plan: -Continue monitoring. #Hypertriglyceridemia, down trending. secondary to propofol use. -Discontinued propofol. NEPHRO #WILL, resolving. Patient had WILL likely 2/2 congestion. -Was given Diamox 500 IV twice daily (06/26-06/27). -Monitor UOP and renal panel. #Central diabetes insipidus, resolved. #Hypophosphatemia, repleted. #Hyperkalemia., Resolved #Mild hyponatremia, resolved #Hyperphosphetemia, stable - calcium carbonate 600mg daily. #Hypernatremia FWD: 1.9L Plan: Increase FW flushes to 250 q6H #NAGMA. #Primary Respiratory acidosis compensated by metabolic alkalosis. Secondary to increased work of breathing and increased RR 2/2 chronic hypoxic respiratory failure and chronic respiratory distress syndrome in the setting of tapering down of IV sedatives. -ABGs 07/21/24 shows pH 7.23, pCO2 106, bicarb 44. -We will treat the underlying cause respiratory acidosis. HEME #Leukocytosis. Likely reactive as we are tapering down sedatives and is still on steroid. #Microcytic anemia 2/2 STEPYH and Inflammatory anemia Stable, has not required any transfusions this admission thus far. Clinically no evidence of bleeding. Iron panel shows iron 17, TIBC 262, iron saturation 6, unsaturated iron binding 245. Peripheral blood film confirms microcytic hypochromic anemia with target cells. Also daily lab draws contributing. Patient required x1 PRBC for Hg 6.9. Plan: -Started on oral ferrous sulfate 300 Mg daily. -Feraheme 510mg was given x1 on 07/15/24. -Monitor H&H. Transfusing for Hgb <7. #Thrombocytosis, resolved Likely reactive in the setting of withdrawal syndrome. -Continue to monitor. ENDO #Hypoglycemia, .resolved ID #Bilateral pneumocystis pneumonia, resolved. #Healthcare associated pneumonia, resolved. #Ventilator associated pneumonia, resolved. #PCP pneumonia prophylaxis. Negative studies: Cocci IgM and IgG, Hepatitis panel, Syphilis, Legionella, H.flu, N.meningitidis, Strep B, Strep pneumoniae, COVID, RSV, Flu A & B. TB quantiferon GOLD-indeterminate, however 06/05 AFB negative, CMV IgM, cryptococcal antigen negative. G6PD levels came back normal for consideration of dapsone alternative to Bactrim if needed. Patient completed 5 day course of azithromycin, 16 days of Zosyn. See Pulm for timeline of antimicrobial coverage. On 06/27 patient developed new septic shock. Plan: -Antibiotics Bactrim for prevention of PCP pneumonia in the setting of CD4 count of 116 -Linezolid and meropenum restarted on 06/27/2024-07/04/24, discontinued. -Urine ackerman port grew GPC, Staph epidermidis that is MDR, sensitive to linezolid, Completed therapy. -Fungal cultures from BAL pending, follow-up on results. -Blood cultures from 06/26/2024 and 06/27/2024, negative so far, cultures drawn on 06/29/2024 is pending. -Follow up blood, sputum, and urine cultures were negative. -Repeat blood, urine, sputum cultures were ordered on 07/07/2024- negative. # Urinary tract infection, Enterobacter cloacae. 07/22-Patient developed hypotension overnight, was given LR bolus, continues to be hypotensive, NICOM shows patient will be fluid responsive, started on maintenance fluids, urine culture noted to be positive for GNR, patient will be started on ceftriaxone, will start on pressors if needed, will discontinue condom catheter. Also sacral ulcer noted on lower back, could be possible source of infection, will continue IV antibiotics. Urine cultures show Enterobacter cloacae sensitive to tobramycin -Started on bactrim (07/25- -started on linezolid and levofloxacin. (07/23- -ceftriaxone (07/22/24-07/23/2024) -Tobramycin (07/24/24-07/25/24) -Urine culture 07/21 positive for gram-negative rods, will follow for final results -Pressor support as needed #AIDS/HIV. Continue HAART regimen. Continue Bactrim 20ml PO daily for prophylaxis. #IRIS---Resolved. Tappering off steroids slowely. MSK #Elevated creatine kinase---Resolved. SKIN #Lower lip abrasion. #Right forearm blisters. -Improving. -Monitor closely. 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 Patient has new complication with GNR UTI, started on therapy. Pending discharge to LTAC, will stabilize patient. DVT prophylaxis: On enoxaparin 80mg BID for treatment of right upper extremity DVT GI prophylaxis: On tube feeds, not indicated. Diet: Tube feeds . Ackerman:Condom cath discontinued 07/22. Lines: PIV. Antibiotics: Bactrim, ceftriaxone. CODE STATUS: DNR/DNI. Case discussed with Attending Dr. Anderson and my senior Dr. Warner PGY2. Yadira Welsh, PGY1. Disclaimer: This note was dictated by speech recognition. Minor errors in jukebox checker may be present due to voice recognition software. Attending Provider Attestation/Addendum Patient seen and examined with above resident, Yadira Welsh MD. I agree with the findings, assessment, and plan of care as documented except for any differences below. Patient improved after initiation of broad-spectrum antibiotics and remains hemodynamically stable. Patient's renal function continues to be normalized as well. He does have a small wound at the site of where previous dressing was however this is superficial at this point though linezolid was initiated. Patient remains a combination of Levaquin and Bactrim with single dose of tobramycin given yesterday For his multidrug-resistant Enterobacter cloacae, complicated urinary tract infection. Patient did not have catheter associated infection as he had condom cath at that time which has not been removed and he has been using briefs which the staff-continue to monitor closely with weights to ensure that fluid status remain balanced. Patient does have significant hyponatremia and we will adjust free water flushes to address this. Patient was seen and antibiotics were adjusted by them today. Patient was mother was updated at bedside on ongoing status and plan for transfer to LTAC tomorrow. Total critical care time: I personally spent 35 minutes for review of physiologic parameters, directing plan of care throughout the day, coordination of care with other subspecialists, and counseling patient's family at bedside. This is exclusive of time spent teaching housestaff performing any separate billable procedures. Patient continues require critical care services for acute hypoxic respiratory failure secondary to fibrotic phase of ARDS from PJP pneumonia with superimposed recurrent ventilator associated pneumonia. Patient continues to be at significant risk for further morbidity and mortality warranting ongoing care and monitoring only available in the intensive care unit.
[2024-07-25] MEDS: ATORVASTATIN CALCIUM 20 MG TABLET 40 MG GT (20:18)
--- NOTE | 2024-07-25 23:21 | PD.VPROG1 ---
Telemedicine visit statement This visit was conducted with the use of interactive audio and video telecommunications system that permits real time communication between the patient and the provider. Patient's verbal consent for virtual visit was obtained on 07/25/24 at 2321. Documentation for date of: 07/25/24 Virtual exam Vital Signs Temp Pulse Resp BP Pulse Ox O2 Del Method O2 Flow Rate 99.8 F 121 H 24 H 108/62 93 L Mechanical Ventilation 70 07/25/24 16:00 07/25/24 22:40 07/25/24 22:40 07/25/24 22:40 07/25/24 22:40 07/25/24 18:00 07/15/24 17:34 FiO2 65 07/25/24 22:40 Objective Labs 07/25/24 06:14 07/25/24 06:14 Labs: Laboratory Results - last 24 hr 07/22/24 07/25/24 07/25/24 12:15 00:23 06:14 WBC 12.9 H RBC 2.92 L Hgb 7.7 L 8.0 L Hct 26.4 L 27.9 L MCV 96 MCH 27.4 MCHC 28.7 L RDW Std Deviation 82.3 H Plt Count 180 D Neut % (Auto) 87 H Lymph % (Auto) 4 L [place] % (Auto) 6 Eos % (Auto) 1 Baso % (Auto) 0 Neut # (Auto) 11.1 H Lymph # (Auto) 0.6 L [place] # (Auto) 0.8 Eos # (Auto) 0.1 Baso # (Auto) 0.0 Immature Gran # (Auto) 0.21 H Absolute Nucleated RBC 0.05 H Immature Gran % 2 H Nucleated RBC % 0 Sodium 152 H Potassium 3.9 Chloride 106 Carbon Dioxide > 40.0 H Anion Gap 6 L BUN 45 H Creatinine 1.1 Estim Creat Clear Calc 82.2 eGFR > 60 BUN/Creatinine Ratio 41 H Glucose 95 Calculated Osmolality 313 H Calcium 8.4 Corrected Calcium 9.1 Phosphorus 2.8 Magnesium 2.2 Total Bilirubin 0.2 L AST 202 H ALT 176 H Alkaline Phosphatase 310 H Total Protein 6.0 Albumin 3.1 L Globulin 2.9 Albumin/Globulin Ratio 1.1 L HIV-1 RNA (PCR) 237 H HIV-1 RNA (PCR) log 2.37 H ABG Interpretation ABG results: 1105/29/24 05/29/24 23:37 10:44 22:08 ABG pH 7.51 H 7.50 H 7.48 H ABG pCO2 28 L 32 32 ABG pO2 75 L 79 L 145 H D ABG HCO3 23 25 24 ABG O2 Saturation 96 95 98 ABG Base Excess 0 2 1 VBG pH VBG pCO2 VBG pO2 VBG Base Excess 05/30/24 05/31/24 06/04/24 08:45 04:54 02:10 ABG pH 7.47 H 7.45 7.45 ABG pCO2 35 38 36 ABG pO2 86 D 82 L 139 H ABG HCO3 26 26 25 ABG O2 Saturation 97 96 98 ABG Base Excess 2 2 1 VBG pH VBG pCO2 VBG pO2 VBG Base Excess 06/04/24 06/05/24 06/05/24 18:16 11:36 12:59 ABG pH 7.44 7.11 L* D 7.20 L ABG pCO2 36 94 H* D 68 H D ABG pO2 80 L D 150 H D 121 H D ABG HCO3 24 30 H 26 ABG O2 Saturation 94 97 97 ABG Base Excess 0 -2 -3 VBG pH VBG pCO2 VBG pO2 VBG Base Excess 06/05/24 06/06/24 06/06/24 19:25 04:13 15:27 ABG pH 7.22 L 7.27 L 7.30 L ABG pCO2 64 H 57 H 60 H ABG pO2 122 H 153 H D 74 L D ABG HCO3 26 26 29 H ABG O2 Saturation 97 99 H 92 ABG Base Excess -3 -2 2 VBG pH VBG pCO2 VBG pO2 VBG Base Excess 06/07/24 06/07/24 06/08/24 03:55 09:59 04:20 ABG pH 7.41 D 7.43 7.45 ABG pCO2 56 H 55 H 50 H ABG pO2 293 H D 78 L D 75 L ABG HCO3 36 H 37 H 35 H ABG O2 Saturation 99 H 95 94 ABG Base Excess 10 H 11 H 10 H VBG pH VBG pCO2 VBG pO2 VBG Base Excess 06/08/24 06/08/24 06/08/24 11:05 11:50 13:18 ABG pH 7.17 L* D 7.10 L* 7.15 L* ABG pCO2 95 H* D 115 H* D 88 H* D ABG pO2 89 75 L 72 L ABG HCO3 34 H 36 H 31 H ABG O2 Saturation 92 84 L 85 L ABG Base Excess 3 4 H 0 VBG pH VBG pCO2 VBG pO2 VBG Base Excess 06/08/24 06/09/24 06/09/24 17:02 01:33 03:15 ABG pH 7.18 L* 7.22 L 7.27 L ABG pCO2 50 H D 91 H* D 82 H* ABG pO2 82 L 105 D 86 ABG HCO3 19 L 37 H 38 H ABG O2 Saturation 93 97 95 ABG Base Excess -9 L 7 H 9 H VBG pH VBG pCO2 VBG pO2 VBG Base Excess 06/09/24 06/09/24 06/10/24 05:08 12:52 04:40 ABG pH 7.31 L 7.33 L 7.30 L ABG pCO2 75 H* 57 H D 78 H* D ABG pO2 97 158 H D 65 L D ABG HCO3 38 H 30 H 38 H ABG O2 Saturation 97 99 H 90 L ABG Base Excess 10 H 3 9 H VBG pH VBG pCO2 VBG pO2 VBG Base Excess 06/10/24 06/11/24 06/12/24 09:40 04:19 04:15 ABG pH 7.27 L 7.35 7.48 H D ABG pCO2 88 H* D 86 H* 63 H D ABG pO2 65 L 70 L 76 L ABG HCO3 40 H 48 H 47 H ABG O2 Saturation 89 L 93 95 ABG Base Excess 10 H 19 H 21 H VBG pH VBG pCO2 VBG pO2 VBG Base Excess 06/13/24 06/14/24 06/15/24 07:22 04:32 03:45 ABG pH 7.46 H 7.48 H 7.46 H ABG pCO2 56 H 40 D 37 ABG pO2 80 L 64 L 71 L ABG HCO3 39 H 30 H 27 H ABG O2 Saturation 95 92 94 ABG Base Excess 13 H 6 H 3 VBG pH VBG pCO2 VBG pO2 VBG Base Excess 06/15/24 06/15/24 06/15/24 10:17 12:20 14:20 ABG pH 7.01 L* D 7.00 L* 7.03 L* ABG pCO2 122 H* D 130 H* 125 H* ABG pO2 91 D 88 82 L ABG HCO3 31 H 32 H 33 H ABG O2 Saturation 88 L 88 L 87 L ABG Base Excess -3 -2 -1 VBG pH VBG pCO2 VBG pO2 VBG Base Excess 06/15/24 06/15/24 06/16/24 15:55 20:39 00:35 ABG pH 7.03 L* 7.08 L* 7.10 L* ABG pCO2 121 H* 116 H* 118 H* ABG pO2 99 117 H 102 ABG HCO3 32 H 34 H 37 H ABG O2 Saturation 93 97 96 ABG Base Excess -1 2 4 H VBG pH VBG pCO2 VBG pO2 VBG Base Excess 06/16/24 06/16/24 06/17/24 04:45 08:55 05:06 ABG pH 7.17 L* 7.28 L D 7.33 L ABG pCO2 112 H* 88 H* D 96 H* ABG pO2 155 H D 98 D 126 H D ABG HCO3 41 H 41 H 50 H ABG O2 Saturation 99 H 98 99 H ABG Base Excess 9 H 12 H 21 H VBG pH VBG pCO2 VBG pO2 VBG Base Excess 06/17/24 06/17/24 06/18/24 10:58 13:55 04:16 ABG pH 7.29 L 7.29 L 7.33 L ABG pCO2 106 H* D 106 H* 86 H* D ABG pO2 58 L* D 61 L 77 L ABG HCO3 51 H 51 H 45 H ABG O2 Saturation 87 L 88 L 95 ABG Base Excess 21 H 21 H 17 H VBG pH VBG pCO2 VBG pO2 VBG Base Excess 06/19/24 06/20/24 06/21/24 04:18 04:49 04:06 ABG pH 7.42 7.36 7.44 ABG pCO2 63 H D 74 H* D 61 H D ABG pO2 66 L 55 L* 202 H D ABG HCO3 41 H 42 H 42 H ABG O2 Saturation 93 87 L 100 H ABG Base Excess 15 H 14 H 16 H VBG pH VBG pCO2 VBG pO2 VBG Base Excess 06/22/24 06/23/24 06/24/24 04:18 04:29 04:25 ABG pH 7.45 7.46 H 7.29 L D ABG pCO2 57 H 53 H 80 H* D ABG pO2 60 L D 99 D 88 ABG HCO3 40 H 38 H 38 H ABG O2 Saturation 91 99 H 96 ABG Base Excess 14 H 13 H 9 H VBG pH VBG pCO2 VBG pO2 VBG Base Excess 06/24/24 06/25/24 06/25/24 08:50 05:13 11:02 ABG pH 7.40 D 7.46 H Cancelled ABG pCO2 61 H D 53 H Cancelled ABG pO2 110 H D 66 L D Cancelled ABG HCO3 38 H 38 H Cancelled ABG O2 Saturation 99 H 94 Cancelled ABG Base Excess 12 H 13 H Cancelled VBG pH VBG pCO2 VBG pO2 VBG Base Excess 06/25/24 06/26/24 06/26/24 15:53 04:13 11:40 ABG pH 7.39 7.41 7.46 H ABG pCO2 53 H 48 43 ABG pO2 55 L* 58 L* 58 L* ABG HCO3 32 H 30 H 31 H ABG O2 Saturation 86 L 89 L 92 ABG Base Excess 6 H 5 H 6 H VBG pH VBG pCO2 VBG pO2 VBG Base Excess 06/27/24 06/28/24 06/28/24 04:17 04:24 06:22 ABG pH 7.48 H 7.27 L D 7.22 L ABG pCO2 39 72 H* D 83 H* D ABG pO2 49 L* 71 L D 82 L ABG HCO3 29 H 33 H 34 H ABG O2 Saturation 87 L 93 95 ABG Base Excess 5 H 5 H 4 H VBG pH VBG pCO2 VBG pO2 VBG Base Excess 06/28/24 06/29/24 06/30/24 10:18 04:21 07:57 ABG pH 7.32 L D 7.41 7.41 ABG pCO2 64 H D 63 H 62 H ABG pO2 76 L 81 L 59 L* D ABG HCO3 33 H 40 H 40 H ABG O2 Saturation 95 97 88 L ABG Base Excess 6 H 14 H 13 H VBG pH VBG pCO2 VBG pO2 VBG Base Excess 07/02/24 07/03/24 07/04/24 04:05 04:45 04:11 ABG pH 7.46 H 7.43 7.38 ABG pCO2 53 H 58 H 67 H ABG pO2 77 L 100 D 73 L D ABG HCO3 38 H 39 H 40 H ABG O2 Saturation 96 98 94 ABG Base Excess 12 H 13 H 13 H VBG pH VBG pCO2 VBG pO2 VBG Base Excess 07/05/24 07/06/24 07/09/24 04:40 04:08 04:53 ABG pH 7.30 L 7.42 D 7.26 L ABG pCO2 87 H* D 67 H D 94 H* ABG pO2 132 H D 64 L D 149 H ABG HCO3 43 H 43 H 42 H ABG O2 Saturation 99 H 92 100 H ABG Base Excess 14 H 17 H 12 H VBG pH VBG pCO2 VBG pO2 VBG Base Excess 07/11/24 07/12/24 07/14/24 11:34 04:49 04:45 ABG pH 7.25 L 7.36 D ABG pCO2 106 H* D 94 H* D ABG pO2 67 L D 59 L* ABG HCO3 46 H 53 H ABG O2 Saturation 91 90 L ABG Base Excess 16 H 24 H VBG pH 7.38 VBG pCO2 74 H VBG pO2 148 H VBG Base Excess 16 H 07/14/24 07/15/24 07/16/24 09:21 10:24 04:35 ABG pH 7.42 7.25 L D ABG pCO2 83 H* D 115 H* D ABG pO2 61 L 70 L ABG HCO3 54 H 50 H ABG O2 Saturation 92 93 ABG Base Excess 27 H 20 H VBG pH 7.39 VBG pCO2 79 H VBG pO2 40 VBG Base Excess 21 H 07/16/24 07/18/24 07/21/24 09:20 04:39 16:10 ABG pH 7.32 L 7.35 7.23 L ABG pCO2 95 H* D 92 H* 106 H* ABG pO2 59 L* 60 L 95 ABG HCO3 49 H 50 H 44 H ABG O2 Saturation 92 89 L 96 ABG Base Excess 20 H 22 H 14 H VBG pH VBG pCO2 VBG pO2 VBG Base Excess 07/22/24 07/23/24 07/24/24 09:31 05:51 04:20 ABG pH 7.27 L ABG pCO2 98 H* ABG pO2 35 L* D ABG HCO3 44 H ABG O2 Saturation 59 L ABG Base Excess 15 H VBG pH 7.44 7.36 VBG pCO2 59 H 76 H D VBG pO2 83 H 127 H D VBG Base Excess 14 H 15 H
[2024-07-26] VITALS (29 sets, daily range): BP systolic 0–106; BP diastolic 0–60; PULSE 30–141; RESP 0–31; O2SAT 77–92; BMI 26.2
[2024-07-26] MEDS: ALBUTEROL/IPRATROPIUM (Duoneb) RT SOL 3 ML NEBU INH ×2 (03:41→06:13)
--- NOTE | 2024-07-26 04:04 | XR_ITS ---
Examination: AP chest single view Technique one AP portable upright chest single view Exam date and time: July 26, 2024 0413 hrs. Comparison July 25, 2024 Indications: Respiratory failure, hypoxia O2 desaturation today, history pneumonia ARDS Findings: Severe bilateral lung opacity Tracheostomy tube tip 5.6 cm above sunil No significant cardiac enlargement No pneumothorax Impression: No significant change in severe bilateral pneumonia ARDS pattern
[2024-07-26 04:14] LABS: Base Excess 17 (-3-3); HCO3 46 mEq/L (20-26); O2 Saturation 69 % (91-98); PCO2 100 mmHg (32.0-48.0); pH, Arterial 7.27 (7.35-7.45)
[2024-07-26 04:17] LABS: Allen Test Performed/OK; PO2 41 mmHg (83-108); Puncture Site Left Radial
[2024-07-26 04:18] LABS: Inspired Oxygen, FIO2 100 %
[2024-07-26] MEDS: Norepinephrine/D5W 8mg/250ml 8 MG/250 ML BAG 6.319 MG IV (04:19)
[2024-07-26] MEDS: RINGERS LACTATED 1000 ML 500 ML 999 ML IV (04:38)
--- NOTE | 2024-07-26 06:07 | PD.NEUROPROG ---
Documentation for date of: 07/26/24 Subjective Subjective Interval history: Patient is in ICU, off of sedation, he has a trach in place. No changes or overnight events reported. Exam - Neurology Vital Signs Temp Pulse Resp BP Pulse Ox O2 Del Method O2 Flow Rate 99.8 F 135 H 24 H 90/50 L 86 L Mechanical Ventilation 70 07/25/24 16:00 07/26/24 06:00 07/26/24 00:00 07/26/24 06:00 07/26/24 06:00 07/25/24 18:00 07/15/24 17:34 FiO2 100 07/26/24 04:00 Narrative Exam GENERAL APPEARANCE: Well hydrated, well-nourished, trached and on mechanical ventilator HEENT: Normocephalic, atraumatic, extraocular movements intact. Pupils: Equal reacting to light, no tracking noted NECK: Supple, no JVD or bruits. CARDIOVASULAR: Heart: S1, S2 heard, regular without S3-S4 or murmur no rubs or gallops. LUNGS/CHEST: Tracheostomy in place. ABDOMEN: Soft, nontender, with normal bowel sounds. No pulsatile masses. No rebound, rigidity, or guarding. Normal inspection and palpation. EXTREMITIES: Normal inspection and palpation. No edema, clubbing or cyanosis. SKIN: Warm and dry without rashes. Normal inspection. MUSCULOSKELETAL: No cervical, thoracic, lumbar or midline bony tenderness. Normal inspection. NEURO: Unchanged, no response to verbal commands or painful stimulation, brainstem function: intact PSYCHIATRIC: Limited Objective Labs 07/25/24 06:14 07/25/24 06:14 Labs: Laboratory Results - last 24 hr 07/22/24 07/25/24 07/26/24 12:15 06:14 04:07 WBC 12.9 H RBC 2.92 L Hgb 8.0 L Hct 27.9 L MCV 96 MCH 27.4 MCHC 28.7 L RDW Std Deviation 82.3 H Plt Count 180 D Neut % (Auto) 87 H Lymph % (Auto) 4 L [place] % (Auto) 6 Eos % (Auto) 1 Baso % (Auto) 0 Neut # (Auto) 11.1 H Lymph # (Auto) 0.6 L [place] # (Auto) 0.8 Eos # (Auto) 0.1 Baso # (Auto) 0.0 Immature Gran # (Auto) 0.21 H Absolute Nucleated RBC 0.05 H Immature Gran % 2 H Nucleated RBC % 0 Puncture Site Left Radial ABG pH 7.27 L ABG pCO2 100 H* ABG pO2 41 L* ABG HCO3 46 H ABG O2 Saturation 69 L ABG Base Excess 17 H FiO2 100 Sodium 152 H Potassium 3.9 Chloride 106 Carbon Dioxide > 40.0 H Anion Gap 6 L BUN 45 H Creatinine 1.1 Estim Creat Clear Calc 82.2 eGFR > 60 BUN/Creatinine Ratio 41 H Glucose 95 Calculated Osmolality 313 H Calcium 8.4 Corrected Calcium 9.1 Phosphorus 2.8 Magnesium 2.2 Total Bilirubin 0.2 L AST 202 H ALT 176 H Alkaline Phosphatase 310 H Total Protein 6.0 Albumin 3.1 L Globulin 2.9 Albumin/Globulin Ratio 1.1 L HIV-1 RNA (PCR) 237 H HIV-1 RNA (PCR) log 2.37 H ABG Interpretation ABG results: 05/27/24 05/29/24 05/29/24 23:37 10:44 22:08 ABG pH 7.51 H 7.50 H 7.48 H ABG pCO2 28 L 32 32 ABG pO2 75 L 79 L 145 H D ABG HCO3 23 25 24 ABG O2 Saturation 96 95 98 ABG Base Excess 0 2 1 VBG pH VBG pCO2 VBG pO2 VBG Base Excess 05/30/24 05/31/24 06/04/24 08:45 04:54 02:10 ABG pH 7.47 H 7.45 7.45 ABG pCO2 35 38 36 ABG pO2 86 D 82 L 139 H ABG HCO3 26 26 25 ABG O2 Saturation 97 96 98 ABG Base Excess 2 2 1 VBG pH VBG pCO2 VBG pO2 VBG Base Excess 06/04/24 06/05/24 06/05/24 18:16 11:36 12:59 ABG pH 7.44 7.11 L* D 7.20 L ABG pCO2 36 94 H* D 68 H D ABG pO2 80 L D 150 H D 121 H D ABG HCO3 24 30 H 26 ABG O2 Saturation 94 97 97 ABG Base Excess 0 -2 -3 VBG pH VBG pCO2 VBG pO2 VBG Base Excess 06/05/24 06/06/24 06/06/24 19:25 04:13 15:27 ABG pH 7.22 L 7.27 L 7.30 L ABG pCO2 64 H 57 H 60 H ABG pO2 122 H 153 H D 74 L D ABG HCO3 26 26 29 H ABG O2 Saturation 97 99 H 92 ABG Base Excess -3 -2 2 VBG pH VBG pCO2 VBG pO2 VBG Base Excess 06/07/24 06/07/24 06/08/24 03:55 09:59 04:20 ABG pH 7.41 D 7.43 7.45 ABG pCO2 56 H 55 H 50 H ABG pO2 293 H D 78 L D 75 L ABG HCO3 36 H 37 H 35 H ABG O2 Saturation 99 H 95 94 ABG Base Excess 10 H 11 H 10 H VBG pH VBG pCO2 VBG pO2 VBG Base Excess 06/08/24 06/08/24 06/08/24 11:05 11:50 13:18 ABG pH 7.17 L* D 7.10 L* 7.15 L* ABG pCO2 95 H* D 115 H* D 88 H* D ABG pO2 89 75 L 72 L ABG HCO3 34 H 36 H 31 H ABG O2 Saturation 92 84 L 85 L ABG Base Excess 3 4 H 0 VBG pH VBG pCO2 VBG pO2 VBG Base Excess 06/08/24 06/09/24 06/09/24 17:02 01:33 03:15 ABG pH 7.18 L* 7.22 L 7.27 L ABG pCO2 50 H D 91 H* D 82 H* ABG pO2 82 L 105 D 86 ABG HCO3 19 L 37 H 38 H ABG O2 Saturation 93 97 95 ABG Base Excess -9 L 7 H 9 H VBG pH VBG pCO2 VBG pO2 VBG Base Excess 06/09/24 06/09/24 06/10/24 05:08 12:52 04:40 ABG pH 7.31 L 7.33 L 7.30 L ABG pCO2 75 H* 57 H D 78 H* D ABG pO2 97 158 H D 65 L D ABG HCO3 38 H 30 H 38 H ABG O2 Saturation 97 99 H 90 L ABG Base Excess 10 H 3 9 H VBG pH VBG pCO2 VBG pO2 VBG Base Excess 06/10/24 06/11/24 06/12/24 09:40 04:19 04:15 ABG pH 7.27 L 7.35 7.48 H D ABG pCO2 88 H* D 86 H* 63 H D ABG pO2 65 L 70 L 76 L ABG HCO3 40 H 48 H 47 H ABG O2 Saturation 89 L 93 95 ABG Base Excess 10 H 19 H 21 H VBG pH VBG pCO2 VBG pO2 VBG Base Excess 06/13/24 06/14/24 06/15/24 07:22 04:32 03:45 ABG pH 7.46 H 7.48 H 7.46 H ABG pCO2 56 H 40 D 37 ABG pO2 80 L 64 L 71 L ABG HCO3 39 H 30 H 27 H ABG O2 Saturation 95 92 94 ABG Base Excess 13 H 6 H 3 VBG pH VBG pCO2 VBG pO2 VBG Base Excess 06/15/24 06/15/24 06/15/24 10:17 12:20 14:20 ABG pH 7.01 L* D 7.00 L* 7.03 L* ABG pCO2 122 H* D 130 H* 125 H* ABG pO2 91 D 88 82 L ABG HCO3 31 H 32 H 33 H ABG O2 Saturation 88 L 88 L 87 L ABG Base Excess -3 -2 -1 VBG pH VBG pCO2 VBG pO2 VBG Base Excess 06/15/24 06/15/24 06/16/24 15:55 20:39 00:35 ABG pH 7.03 L* 7.08 L* 7.10 L* ABG pCO2 121 H* 116 H* 118 H* ABG pO2 99 117 H 102 ABG HCO3 32 H 34 H 37 H ABG O2 Saturation 93 97 96 ABG Base Excess -1 2 4 H VBG pH VBG pCO2 VBG pO2 VBG Base Excess 06/16/24 06/16/24 06/17/24 04:45 08:55 05:06 ABG pH 7.17 L* 7.28 L D 7.33 L ABG pCO2 112 H* 88 H* D 96 H* ABG pO2 155 H D 98 D 126 H D ABG HCO3 41 H 41 H 50 H ABG O2 Saturation 99 H 98 99 H ABG Base Excess 9 H 12 H 21 H VBG pH VBG pCO2 VBG pO2 VBG Base Excess 06/17/24 06/17/24 06/18/24 10:58 13:55 04:16 ABG pH 7.29 L 7.29 L 7.33 L ABG pCO2 106 H* D 106 H* 86 H* D ABG pO2 58 L* D 61 L 77 L ABG HCO3 51 H 51 H 45 H ABG O2 Saturation 87 L 88 L 95 ABG Base Excess 21 H 21 H 17 H VBG pH VBG pCO2 VBG pO2 VBG Base Excess 06/19/24 06/20/24 06/21/24 04:18 04:49 04:06 ABG pH 7.42 7.36 7.44 ABG pCO2 63 H D 74 H* D 61 H D ABG pO2 66 L 55 L* 202 H D ABG HCO3 41 H 42 H 42 H ABG O2 Saturation 93 87 L 100 H ABG Base Excess 15 H 14 H 16 H VBG pH VBG pCO2 VBG pO2 VBG Base Excess 06/22/24 06/23/24 06/24/24 04:18 04:29 04:25 ABG pH 7.45 7.46 H 7.29 L D ABG pCO2 57 H 53 H 80 H* D ABG pO2 60 L D 99 D 88 ABG HCO3 40 H 38 H 38 H ABG O2 Saturation 91 99 H 96 ABG Base Excess 14 H 13 H 9 H VBG pH VBG pCO2 VBG pO2 VBG Base Excess 06/24/24 06/25/24 06/25/24 08:50 05:13 11:02 ABG pH 7.40 D 7.46 H Cancelled ABG pCO2 61 H D 53 H Cancelled ABG pO2 110 H D 66 L D Cancelled ABG HCO3 38 H 38 H Cancelled ABG O2 Saturation 99 H 94 Cancelled ABG Base Excess 12 H 13 H Cancelled VBG pH VBG pCO2 VBG pO2 VBG Base Excess 06/25/24 06/26/24 06/26/24 15:53 04:13 11:40 ABG pH 7.39 7.41 7.46 H ABG pCO2 53 H 48 43 ABG pO2 55 L* 58 L* 58 L* ABG HCO3 32 H 30 H 31 H ABG O2 Saturation 86 L 89 L 92 ABG Base Excess 6 H 5 H 6 H VBG pH VBG pCO2 VBG pO2 VBG Base Excess 06/27/24 06/28/24 06/28/24 04:17 04:24 06:22 ABG pH 7.48 H 7.27 L D 7.22 L ABG pCO2 39 72 H* D 83 H* D ABG pO2 49 L* 71 L D 82 L ABG HCO3 29 H 33 H 34 H ABG O2 Saturation 87 L 93 95 ABG Base Excess 5 H 5 H 4 H VBG pH VBG pCO2 VBG pO2 VBG Base Excess 06/28/24 06/29/24 06/30/24 10:18 04:21 07:57 ABG pH 7.32 L D 7.41 7.41 ABG pCO2 64 H D 63 H 62 H ABG pO2 76 L 81 L 59 L* D ABG HCO3 33 H 40 H 40 H ABG O2 Saturation 95 97 88 L ABG Base Excess 6 H 14 H 13 H VBG pH VBG pCO2 VBG pO2 VBG Base Excess 07/02/24 07/03/24 07/04/24 04:05 04:45 04:11 ABG pH 7.46 H 7.43 7.38 ABG pCO2 53 H 58 H 67 H ABG pO2 77 L 100 D 73 L D ABG HCO3 38 H 39 H 40 H ABG O2 Saturation 96 98 94 ABG Base Excess 12 H 13 H 13 H VBG pH VBG pCO2 VBG pO2 VBG Base Excess 07/05/24 07/06/24 07/09/24 04:40 04:08 04:53 ABG pH 7.30 L 7.42 D 7.26 L ABG pCO2 87 H* D 67 H D 94 H* ABG pO2 132 H D 64 L D 149 H ABG HCO3 43 H 43 H 42 H ABG O2 Saturation 99 H 92 100 H ABG Base Excess 14 H 17 H 12 H VBG pH VBG pCO2 VBG pO2 VBG Base Excess 07/11/24 07/12/24 07/14/24 11:34 04:49 04:45 ABG pH 7.25 L 7.36 D ABG pCO2 106 H* D 94 H* D ABG pO2 67 L D 59 L* ABG HCO3 46 H 53 H ABG O2 Saturation 91 90 L ABG Base Excess 16 H 24 H VBG pH 7.38 VBG pCO2 74 H VBG pO2 148 H VBG Base Excess 16 H 07/14/24 07/15/24 07/16/24 09:21 10:24 04:35 ABG pH 7.42 7.25 L D ABG pCO2 83 H* D 115 H* D ABG pO2 61 L 70 L ABG HCO3 54 H 50 H ABG O2 Saturation 92 93 ABG Base Excess 27 H 20 H VBG pH 7.39 VBG pCO2 79 H VBG pO2 40 VBG Base Excess 21 H 07/16/24 07/18/24 07/21/24 09:20 04:39 16:10 ABG pH 7.32 L 7.35 7.23 L ABG pCO2 95 H* D 92 H* 106 H* ABG pO2 59 L* 60 L 95 ABG HCO3 49 H 50 H 44 H ABG O2 Saturation 92 89 L 96 ABG Base Excess 20 H 22 H 14 H VBG pH VBG pCO2 VBG pO2 VBG Base Excess 07/22/24 07/23/24 07/24/24 09:31 05:51 04:20 ABG pH 7.27 L ABG pCO2 98 H* ABG pO2 35 L* D ABG HCO3 44 H ABG O2 Saturation 59 L ABG Base Excess 15 H VBG pH 7.44 7.36 VBG pCO2 59 H 76 H D VBG pO2 83 H 127 H D VBG Base Excess 14 H 15 H 07/26/24 04:07 ABG pH 7.27 L ABG pCO2 100 H* ABG pO2 41 L* ABG HCO3 46 H ABG O2 Saturation 69 L ABG Base Excess 17 H VBG pH VBG pCO2 VBG pO2 VBG Base Excess Assessment & Plan Assessment and plan (1) Acute respiratory failure with hypoxia: Status: Acute Assessment and plan: Trached and on ventilator Continue with the gabapentin and methadone for now. His condition is unchanged and his prognosis is poor. No significant improvement noted with weaning from sedation. Noted ICU team is planning to discharge him to LTAC (2) Acute ischemic stroke: Status: Acute Assessment and plan: Continue with aspirin, heparin and statin MRI brain showed multiple acute nonhemorrhagic infarction involving the left parietal area, could be from hypotension/hypoxia causing watershed infarct (3) DVT (deep venous thrombosis): Status: Acute Assessment and plan: Started on Lovenox as he has DVT right subclavian and axillary vein Procedures Arterial Line Size (Gauge): 20
[2024-07-26 06:19] LABS: Base Excess, Venous 15 (-3-3); O2 Saturation, Venous 92 % (96-97); PCO2, Venous 61 mmHg (36-56); PO2, Venous 54 mmHg (15-58); pH, Venous 7.45 (7.33-7.66)
[2024-07-26 06:19] LABS: Basophils # (Auto) 0.1 Thou/mm3 (0.0-0.2); Basophils % (Auto) 0 % (0-2.5); Eosinophils % (Auto) 0 % (0-10); Hematocrit 27.5 % (41.0-53.0); Immature Granulocytes % (Auto) 3 % (0-0); Immature Granulocytes Auto 0.65 Thou/mm3 (0.00-0.00); Lymphocytes % (Auto) 5 % (10-50); Mean Corpuscular HGB Conc 27.6 g/dl (31.0-37.0); Mean Corpuscular Hemoglobin 27.4 pg (25.0-35.0); Mean Corpuscular Volume 99 fL (80-100); Monocytes % (Auto) 5 % (0-12); Neutrophils # (Auto) 16.4 Thou/mm3 (1.8-7.7); Neutrophils % (Auto) 86 % (37-80); Nucleated Red Blood Cell # 0.05 Thou/mm3 (0.00-0.00); Nucleated Red Blood Cell % 0 /100 WBC (0); Platelet Count 205 Thou/mm3 (140-440); RDW Standard Deviation 84.3 fL (35.1-43.9); Red Blood Count 2.77 Miln/mm3 (4.50-5.90); White Blood Count 19.1 Thou/mm3 (3.8-10.6)
[2024-07-26 06:20] LABS: Lactate (Lactic Acid) 1.6 mMol/L (0.4-2.0)
[2024-07-26 06:37] LABS: Hemoglobin 7.6 g/dL (13.5-16.0)
[2024-07-26] MEDS: MIDAZOLAM INJ 1 MG/ML VIAL 2 ML 5 MG IV (07:01)
[2024-07-26] MEDS: ROCURONIUM INJ 10 MG/ML VIAL 10 ML 70 MG IVP (07:06)
[2024-07-26] MEDS: Sodium Bicarb Inj 8.4% SYR 50 ML SYRINGE IV (07:06)
[2024-07-26] MEDS: ATROPINE SULF INJ 0.1 MG/ML SYR 10 ML 1 MG IV (07:10)
[2024-07-26] MEDS: EPINEPHrine Inj 16 MG in SODIUM CHLORIDE 0.9% 250 ML 234 ML 71.156 MG IV (07:11)
[2024-07-26] MEDS: CALCIUM CHLORIDE 10% INJ 10 ML SYRG IV (07:15)
--- NOTE | 2024-07-26 07:22 | DES_ITS ---
<Statement entered by Raimundo Anderson MD - 07/28/24 06:32> Attending attestation: I was present at time of pronouncement. Condolences given to the family upon their arrival. Documentation for date of: 07/26/24 Pronouncement Note Date and Time of Date of : 07/26/24 Time of : 07:19 PCOD Preliminary cause of : Cardiopulmonary arrest Contributing Factors (1) Acute respiratory failure with hypoxia: (2) Acute ischemic stroke: (3) DVT (deep venous thrombosis): Summary Additional details: Patient was noted to be dasturating in low 80's this morning around 7:00 AM, Patient's oxygenation did not improve by manual bagging, was started on pressors, eventually asystole noted on tele-monitor. On exam the patient did not respond to verbal or physical stimuli. Absent heart and breath sounds for 1 minute. Absent peripheral pulses. Pupils are fixed and dilated. Corneal reflex absent. Patient pronounced at 07:19 AM. Family notified. Additional Data Confirmation of : no pulse, no respirations, no heart sounds and pupils fixed and dilated Family: contacted Attending/PCP notified?: Yes Attending physician: Raimundo Anderson MD Was code activated?: No
[2024-07-26 07:29] LABS: Alanine Aminotransferase 126 U/L (10-49); Albumin, Serum 3.2 gm/dL (3.5-5.0); Albumin/Globulin Ratio 1.1 (1.2-2.2); Alkaline Phosphatase 299 U/L (46-116); Anion Gap 7 (7-16); Aspartate Amino Transferase 119 U/L (0-34); BUN/Creatinine Ratio 38 Ratio (12-20); Bilirubin,Total 0.2 mg/dL (0.3-1.2); Blood Urea Nitrogen 50 mg/dL (9-23); Calcium 8.5 mg/dL (8.3-10.6); Calcium (Corrected) 9.1 mg/dL (8.5-10.1); Carbon Dioxide > 40.0 mMol/L (20.0-31.0); Chloride 104 mMol/L (98-107); Creatinine (Component) 1.3 mg/dL (0.6-1.3); Estimated Creatinine Clearance 69.5 mL/min (>60); Globulin 2.9 gm/dL (2.3-3.5); Glucose 89 mg/dL (74-106); Magnesium 2.2 mg/dL (1.6-2.6); Osmolality,Calculated 312 (275-295); Phosphorous 4.2 mg/dL (2.4-5.1); Sodium 151 mMol/L (136-145); Total Protein 6.1 gm/dL (5.7-8.2); eGFR > 60 See Note
--- NOTE | 2024-07-26 08:49 | PC.NURSE ---
0650 pt oxygen dropped to 60% Md Anderson at bedside, pt is being bagged by RT Annie HR rate started dropping. Sister Francesca was notified and is on her way. MD Anderson placed emergent central line in the right femoral for emergent medications. pt went aystole and was pronounced at 0719. Donor was notified at 0815 opa [id number], donor released the remains of the patient.
--- NOTE | 2024-07-26 13:27 | DES_ITS ---
<Statement entered by Raimundo Anderson MD - 07/29/24 13:52> Attending attestation: Patient seen and examined with above resident, Yadira Welsh MD. I agree with the findings, assessment, and plan of care as documented except for any differences below. Patient with rapid deterioration last 24 hours with worsening gas exchange. No evidence of fever or elevated white count. Patient had remained on antibiotics for broad coverage including for history of VRE recently. Despite this patient deteriorated with decreasing gas exchange overnight. Patient had remained on anticoagulation for history of upper extremity DVT. Potential for pulmonary embolism as the patient became tachycardic though he remained normotensive until he rapidly deteriorated requiring high-dose pressors. Central line was placed emergently with patient with bicarbonate, calcium, and initiation of second agent to maintain blood pressure. However, continues to have significant desaturation dropping to the 50s. We did try to sedate the patient and paralyze the patient to optimize for compliance with mechanical ventilation eventually escalating to BVM with high PEEP to no success. Patient had sudden cessation of cardiac electrical activity. Asystole with no further intervention as he was DNR. Patient's sister was contacted and did arrive shortly thereafter. I gave my condolences to the olivia webb. Total critical care time: I personally spent 40 minutes for review of physiologic parameters, directing plan of care, and counseling patient's family at bedside. This is exclusive of time spent teaching housestaff or performing any seperate billable procedures. <Statement entered by Colton Feliciano DO - 07/29/24 11:20> Senior attestation: Patient was examined and case was reviewed with team including attending physician. Note reviewed, I agree with its contents. As detailed in summary, patient was noted to become hypoxic, emergent central line placed, epinephrine was given. Given patient's DNR status, no chest compressions were started. Patient as noted in the pronouncement note, family was notified. Colton Feliciano DO PGY-3 Documentation for date of: 07/26/24 Summary Date and Time Date of admission: 05/27/24 12:12 Date of : 07/26/24 Time of : 07:19 Summary Details: Patient was noted to be dasturating in low 80's this morning around 7:00 AM, Patient's oxygenation did not improve by manual bagging, was started on pressors, eventually asystole noted on tele-monitor. On exam the patient did not respond to verbal or physical stimuli. Absent heart and breath sounds for 1 minute. Absent peripheral pulses. Pupils are fixed and dilated. Corneal reflex absent. Patient pronounced at 07:19 AM. Family notified. Date of : 07/26/24 Time of : 07:19 Hospital Course: Mr. Owen is a 39-year-old male with no significant past medical history who presented to [facility] on 05/27/2024 with chief complaint of shortness of breath and cough with associated chills, body aches to generalized weakness, night sweats beginning weeks prior but progressively worse and was admitted for acute hypoxic respiratory failure secondary to suspicion of pneumonia. On presentation chest x-ray showed extensive bilateral pneumonia, CT chest was positive for diffuse severe bilateral pneumonia, patient was noted to be septic, had increased oxygen requirements. Patient was tested to be HIV positive with CD4 count of 116, infectious disease was consulted. Due to worsening respiratory distress and hypoxia patient was intubated 06/05, treated for ARDS secondary to PCP pneumonia. Patient had a prolonged hospital stay, was difficult to wean off sedation and mechanical ventilation. Eventually patient had a tracheostomy 06/23 and had a PEG tube placed on 06/24. Hospital course was also complicated by right upper extremity DVT for which she was treated, throughout the hospital course patient had multiple infections including urinary tract infections, ventilator associated pneumonia due to immunocompromise status, patient's treatment for HIV was complicated by IRIS, eventually as patient stabilized, decision was made to transfer patient to LTAC on antibiotics for further management of urinary tract infection. On the morning of 07/26, patient started becoming hypoxic, saturating in the low 80s, central line was placed, patient was given multiple rounds of epinephrine. Was started on Levophed drip. Patient was also given atropine, no chest compressions and aggressive resuscitative measures were done to respect patient's wishes. 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 Absent heart and breath sounds for 1 minute. Absent peripheral pulses. Pupils are fixed and dilated. Corneal reflex absent. Patient pronounced at 07:19 AM. Family notified. Diagnosis: # Acute respiratory distress syndrome in the setting of post PCP pneumonia state. Secondary to #Bilateral pneumocystis jirovecii pneumonia, resolved. #Healthcare associated pneumonia, resolved, resolved. #Ventilator associated pneumonia, resolved. #S/P Tracheostomy. #Pneumomediastinum, resolved. #Acute encephalopathy. #Rt Parietal ischemic Stroke. #Fever, resolved. #Withdrawal syndrome, stable. #Right subclavian and axillary vein DVT. #Sinus tachycardia. #Septic shock. #Chronic hypoxic respiratory failure 2/2. #Elevated LFTs 2/2 HIV. #Hypertriglyceridemia, down trending. #WILL, resolving. #Central diabetes insipidus, resolved. #Hypophosphatemia, repleted. #Hyperkalemia., Resolved #Mild hyponatremia, resolved #Hyperphosphetemia, stable #Hypernatremia #NAGMA. #Primary Respiratory acidosis compensated by metabolic alkalosis. #Leukocytosis. #Microcytic anemia #Thrombocytosis, resolved #Hypoglycemia, #Bilateral pneumocystis pneumonia, resolved. #Healthcare associated pneumonia, resolved. #Ventilator associated pneumonia, resolved. #PCP pneumonia prophylaxis. # Urinary tract infection, Enterobacter cloacae. #AIDS/HIV. #IRIS---Resolved. #Elevated creatine kinase---Resolved. #Lower lip abrasion. #Right forearm blisters. Case discussed with Attending Dr. Anderson and Dr. Feliciano PGY3. Yadira Welsh PGY1 Additional Data Confirmation of as documented by pronouncing clinician: no pulse, no respirations, no heart sounds and pupils fixed and dilated Family: contacted Attending/PCP notified?: Yes Attending physician: Justin Eubanks MD Was code activated?: No Visit Providers Provider Primary care physician: Physician No Primary/Family Consults: 05/30/24 11:44 Consult to Meal Temperer Stat Comment: Consulting Provider: Rina Walsh 06/01/24 11:28 Consult to Infectious Diseases Routine Comment: Pneumonia Consulting Provider: Marquis Hope 06/02/24 08:14 Consult to Pulmonology Stat Comment: Severe B/L PNA iso new HIV Consulting Provider: Raimundo Anderson I 06/06/24 16:06 Consult to Nephrology Stat Comment: Hyperkalemia possible need for urgent dialysis Consulting Provider: Teo Song 06/15/24 17:36 Referral Speech Therapy Stat Comment: 06/18/24 09:00 Referral Wound Care Routine Comment: 06/20/24 12:12 Consult to General Surgery Urgent Comment: Regarding tracheostomy Consulting Provider: Camelia Alcazar 06/21/24 07:10 Consult to General Surgery Urgent Comment: Regarding tracheostomy tube placement Consulting Provider: Justin Ryan 06/23/24 14:19 Referral Nutritional Services Routine Comment: Instructions: Mucosal device related pressure injury to lower lip. DTI to right ear 07/08/24 19:42 Consult to Neurology / Tele-Neurology Urgent Comment: acute stroke Consulting Provider: Wesley Davalos 07/16/24 12:55 Referral Physical Therapy Routine Comment: Physician Instructions: Diagnosis Contributing Factors (1) Acute respiratory failure with hypoxia: (2) Acute ischemic stroke: (3) DVT (deep venous thrombosis): Discharge Plan Plan Patient Disposition: Patient condition on transfer: Stable Prescriptions/Referrals Referrals: No Primary/Family,Physician [Primary Care Provider] - Patient/Caregiver Discharge Instructions Print Language: [place]
[2024-07-29 06:28] LABS: HIV Genotype* NOT DETECTED
== END 2024-07-26 07:19 | disposition expired | DRG 5 ==
LOC: SERX 14:33 → SERHOLD 15:48 → S3NX 17:10 → S2NX 05-29 22:44 → S2SX 05-30 13:09 → S2NX 06-01 08:28 → S2SX 06-06 07:17 → S2NX 06-06 07:17 → S2SX 06-06 07:17
PROVIDERS: Internal Medicine; Internal Medicine Critical Care Medicine; Internal Medicine Infectious Disease; Nurse Practitioner Primary Care; Psychiatry & Neurology Neurology; Student in an Organized Health Care Education/Training Program; Surgery; Admitting Provider Internal Medicine; Emergency Provider Emergency Medicine; Visit Provider Student in an Organized Health Care Education/Training Program
PROC: 0B110F4 Bypass Trachea to Cutaneous with Tracheostomy Device, Open Approach (ICD-10-PCS; principal; 2024-06-23 14:30)
PROC: 0DH63UZ Insertion of Feeding Device into Stomach, Percutaneous Approach (ICD-10-PCS; CPT 43246; principal; 2024-06-24 15:00)
DX: A41.9 Sepsis, unspecified organism (principal); J80 Acute respiratory distress syndrome; B59 Pneumocystosis; E83.39 Other disorders of phosphorus metabolism; E83.51 Hypocalcemia; D50.9 Iron deficiency anemia, unspecified; B20 Human immunodeficiency virus [HIV] disease; E22.2 Syndrome of inappropriate secretion of antidiuretic hormone; I10 Essential (primary) hypertension; E63.9 Nutritional deficiency, unspecified; E87.5 Hyperkalemia; B95.2 Enterococcus as the cause of diseases classified elsewhere; D75.839 Thrombocytosis, unspecified; E16.2 Hypoglycemia, unspecified; E23.2 Diabetes insipidus; R73.9 Hyperglycemia, unspecified; E78.1 Pure hyperglyceridemia; E83.42 Hypomagnesemia; E87.4 Mixed disorder of acid-base balance; E87.6 Hypokalemia; F41.9 Anxiety disorder, unspecified; G72.81 Critical illness myopathy; H70.93 Unspecified mastoiditis, bilateral; I46.9 Cardiac arrest, cause unspecified; I82.A11 Acute embolism and thrombosis of right axillary vein; I82.B11 Acute embolism and thrombosis of right subclavian vein; B96.89 Other specified bacterial agents as the cause of diseases classified elsewhere; J95.851 Ventilator associated pneumonia; J98.2 Interstitial emphysema; K82.8 Other specified diseases of gallbladder; L98.429 Non-pressure chronic ulcer of back with unspecified severity; N17.9 Acute kidney failure, unspecified; N39.0 Urinary tract infection, site not specified; R65.21 Severe sepsis with septic shock; I63.531 Cerebral infarction due to unspecified occlusion or stenosis of right posterior cerebral artery; Z78.1 Physical restraint status; Y95 Nosocomial condition; Z16.21 Resistance to vancomycin; Z16.24 Resistance to multiple antibiotics; Z66 Do not resuscitate; F17.210 Nicotine dependence, cigarettes, uncomplicated; T36.8X5A Adverse effect of other systemic antibiotics, initial encounter; L89.896 Pressure-induced deep tissue damage of other site; G93.40 Encephalopathy, unspecified; S50.821A Blister (nonthermal) of right forearm, initial encounter; S00.511A Abrasion of lip, initial encounter; T38.0X5A Adverse effect of glucocorticoids and synthetic analogues, initial encounter; Y84.8 Other medical procedures as the cause of abnormal reaction of the patient, or of later complication, without mention of misadventure at the time of the procedure; Y92.230 Patient room in hospital as the place of occurrence of the external cause; X58.XXXA Exposure to other specified factors, initial encounter
CPT/HCPCS: 36415; 36600; 70450; 70553; 71045; 71250; 71260; 71275; 74018; 74177; 76705; 80048; 80053; 80061; 80069; 80074; 80202; 81001; 81381; 82306; 82436; 82550; 82570; 82803; 82955; 83020; 83036; 83540; 83550; 83605; 83615; 83690; 83735; 83880; 84100; 84132; 84133; 84145; 84295; 84300; 84443; 84478; 84484; 85014; 85018; 85025; 85041; 85379; 85384; 85610; 85730; 86021; 86036; 86038; 86140; 86160; 86331; 86355; 86357; 86359; 86360; 86403; 86430; 86480; 86580; 86635; 86644; 86645; 86701; 86702; 86703; 86706; 86780; 86850; 86900; 86901; 86923; 87015; 87040; 87070; 87077; 87081; 87086; 87102; 87116; 87186; 87205; 87206; 87305; 87389; 87400; 87449; 87486; 87491; 87493; 87502; 87536; 87581; 87591; 87633; 87634; 87635; 87651; 87661; 87798; 87811; 87901; 93005; 93225; 93306; 93970; 93971; 94002; 94003; 94640; 94644; 94664; 94667; 94762; 95816; 99291; A4216; A4649; A9270; A9579; J0171; J0456; J0461; J0612; J0696; J1120; J1450; J1630; J1643; J1644; J1650; J1815; J1940; J1956; J2021; J2060; J2185; J2247; J2250; J2251; J2270; J2405; J2470; J2543; J2560; J2597; J2704; J2765; J2919; J3010; J3260; J3370; J3372; J3475; J3490; J7030; J7040; J7050; J7060; J7120; J7509; J7512; J7999; J8499; P9016; P9047; Q0138; Q0161; Q9967; J1920; J2020; J2248